=== PATIENT | female | born 1955 | race Caucasian/White ===

== ENCOUNTER 2017-11-25 14:56 | Emergency (ER) | payer MEDICAID, SELFPAY ==
[2017-11-25 14:58] VITALS: BP 169/94; PULSE 95; RESP 20; TEMP 36.6; O2SAT 97; BMI 34.7
--- NOTE | 2017-11-25 16:02 | US_ITS ---
STUDY: ULTRASOUND OF THE FEMALE PELVIS - COMPLETE REASON FOR EXAM: Female, 62 years old. Postmenopausal bleeding. LMP: Unknown. TECHNIQUE: Transabdominal and Transvaginal. TECHNICAL QUALITY: Adequate. COMPARISON: None. FINDINGS: The uterus is anteverted and is in a midline position. The uterus measures 13.4 x 9.7 x 6.8 cm. There is a Nabothian cyst of the cervix. The endometrium measures 14 mm in thickness, and is hyperechoic. There is no demonstrated endometrial mass. There multiple hypoechoic masses consistent with fibroids. Largest measures 4.0 cm. Additional lesion measuring 1.9 to 3.0 cm. I.U.D. - The patient does not have an I.U.D. The right ovary is visualized. The right ovary measures 2.1 x 1.6 x 1.5 cm. There is no right ovarian cyst or ovarian mass. There is no visualized right adnexal mass or complex lesion. There is normal arterial and normal venous vascularity. The left ovary is non-visualized. There is no fluid in the cul-de-sac. The pre void volume of the bladder was 141 ml. US/Transvaginal Non- IMPRESSION: Fibroid uterus. Electronically Signed: Praful Adam MD at 17:59 EDT , Service support ,
--- NOTE | 2017-11-25 16:04 | ED.VISSUMM ---
- ER Visit Summary Date of Service: 11/25/17 Chief Complaint: Vaginal bleeding History of Present Illness: The patient is a 62 F who has not had a regular period in several years. Patient states she has been spotting for the past couple of months. She does not have insurance that she has not gone to the doctor for this. She developed some mild lower abdominal cramping yesterday and had a gush of vaginal blood with clot today. Past surgical history significant only for C-sections. She denies family history of uterine cancer. Physical Examination: Vital signs significant for blood pressure of 169/94, otherwise unremarkable. Patient sitting upright in bed no acute distress. Heart is regular rate and rhythm. Lung sounds are clear. Abdomen is soft with mild superpubic tenderness. There is no guarding or rebound. Active bowel sounds are noted throughout. Test Results: CBC was a hemoglobin 9.8 hematocrit 32.5. Chemistry studies normal. Coags negative. Ultrasound of the pelvis shows a fibroid uterus with at least 3 large fibroids. Endometrium is measuring 14 mm. Emergency Department Course and Treatment: Patient was given IV fluids here. Bleeding is controlled at this time. Vital signs remained stable. Patient wishes to follow-up with Dr. Jean. I spoke with her and patient will be followed up in the office closely. Treatment Plan: [] Disposition: Discharge Impression: 1. Postmenopausal bleeding 2. Fibroid uterus This note was generated with [employer] dictation software. It may contain incorrect words, spelling, and punctuation that were not noted in review of the chart prior to signing ED Disposition - Plan for ED Patient: Chief Complaint: Vag Bleeding Referrals: Alek Hernandez MD [Primary Care Provider] -
[2017-11-25 16:27] VITALS: RESP 16
[2017-11-25] MEDS: 0.9% Normal Saline 1,000 ML 150 ML IV (16:29)
[2017-11-25 16:46] LABS: Absolute Lymphocyte Count 1.26 X10^3/ul (0.83-4.51); Absolute Neutrophil Count 5.9 X10^3/uL (2.0-7.7); Basophil# 0.03 X10^3/uL; Basophil% 0.4 % (0-1); Eosinophil# 0.19 X10^3/uL; Eosinophils% 2.3 % (0-5); Hematocrit 32.5 % (37-47); Hemoglobin 9.8 g/dl (12.0-15.0); Lymphocyte # 1.26 X10^3/ul (4.0); Lymphocyte % 15.3 % (19-41); Mean Corp Hgb Conc 30.2 g/gl (32-36); Mean Corpuscular Hgb 23.8 pg (27.0-32.0); Mean Corpuscular Volume 79.1 fL (81-99); Mean Platelet Vol. 8.6 fl (6.2-12.0); Monocyte# 0.83 X10^3/uL; Monocyte% 10.1 % (0-10); Neutrophil # 5.91 X10^3/uL (2.7-7.7); Neutrophil % 71.7 % (47-70); Platelet Count 377 K/mm3 (150-450); RBC Distribution Width CV 14.9 % (11.6-14.6); Red Blood Count 4.11 M/mm3 (4.2-5.4); White Blood Count 8.2 K/mm3 (4.4-11.0)
[2017-11-25 16:47] LABS: POSITIVE COUNT NO; POSITIVE DIFFERENTIAL NO; POSITIVE MORPHOLOGY NO
[2017-11-25 16:53] LABS: International Normalized Ratio 0.9; Prothrombin Time (Protime)PT. 12.6 SECONDS (11.7-14.9)
[2017-11-25 16:54] LABS: Partial Thromboplast Time 28.8 Seconds (24.1-36.2)
[2017-11-25 16:56] LABS: Anion Gap 6 (5-15); BUN 13 mg/dL (7-18); BUN/Creat Ratio 17.6 RATIO (10-20); Calcium,Total 8.6 mg/dL (8.5-10.1); Chloride 108 mmol/L (98-107); Creatinine, Serum 0.74 mg/dL (0.55-1.02); EST Glomerular Filtration Rate 85 mL/min (>60); Est Glom Filt Rate - Afr Amer 102 mL/min (>60); Estimated Creatinine Clearance 73.79 ml/min; Glucose 93 mg/dL (74-106); Potassium 3.9 mmol/L (3.5-5.1); Sodium Level 141 mmol/L (136-145)
[2017-11-25 17:38] VITALS: BP 150/90; PULSE 68; RESP 16; O2SAT 98
--- NOTE | 2017-11-25 18:35 | ED.DEP ---
ED Disposition - Plan for ED Patient: Disposition: Home or Assisted Living Chief Complaint: Vag Bleeding Instructions: ED Bleed Irregular Vaginal, ED Fibroids Referrals: Susie Murdock MD [STAFF PHYSICIAN] - As soon as possible
[2017-11-25 18:51] VITALS: BP 161/75; PULSE 87; RESP 16; O2SAT 100
== END 2017-11-25 18:55 | disposition home or self-care (01) ==
PROVIDERS: Emergency Provider Emergency Medicine; Family Provider Family Medicine; PCP Family Medicine
DX: N95.0 Postmenopausal bleeding (principal); D25.9 Leiomyoma of uterus, unspecified; Z86.73 Personal history of transient ischemic attack (TIA), and cerebral infarction without residual deficits; Z79.82 Long term (current) use of aspirin; Z87.891 Personal history of nicotine dependence
CPT/HCPCS: 76830; 80048; 85025; 85610; 85730; 93976; 96360; 96361; 99283; J7030

== ENCOUNTER 2017-12-19 09:20 | Day surgery (SDC) | payer MEDICAID, SELFPAY ==
[2017-12-19] VITALS (15 sets, daily range): BP systolic 110–168; BP diastolic 63–92; PULSE 59–69; RESP 12–17; TEMP 36.8–37.1; O2SAT 93–99; BMI 35.8
--- NOTE | 2017-12-19 | IMM_PTH ---
PATIENT: DANNY PINK [place] [facility] [place][id number] AGE/SX: 62/F ROOM: RE12/19/[address]: Dr. Brittny Nielsen MD : 1955 BED: DIS: 12/19/2017 SPEC #: [id number] RECD: 12/24/17 12:55 STATUS: YUE REQ #: [id number] JOSEPH: 12/19/17 00:[address]: Brittny Laura DEPT: IMMUNOHISTOCHEMISTRY RECD BY: Aye Moon ENTERED: 12/24/17 12:58 SP TYPE: IMMUNO OTHR DR: Dr. Donovan Hernandez MD Tissues: Endometrium, NOS Procedures: MSH2 (add) MLH-1 (add) MSH6 (add) Anti-PMS2 (add) CEA (add) CK19 (add) CK20 (add) CK7 (add) CK8 (add) CYCLIN (add) KI-67 (add) P53 (add) AZ (add) Vimentin (add) 34BE12 (add) ER (initial) PHYSICIAN & [address] [address] SPECIMEN INFORMATION: Tissue Source: Endometrial curettings Clinical Info: Postmenopausal bleeding with vaginal hemorrhage Specimen Number: [id number] #3 CPT code: 22456, 58460 x15 METHODOLOGY: Deparaffinized sections of prefer/formalin-fixed tissue or PAP/DQ stained slides are incubated with monoclonal/polyclonal antibodies/oligonucleotide probes. Localization is made via biotin free immunoperoxidase method. Appropriate controls are performed and reacted as expected. Results on target cell population are indicated in the following table: RESULTS: ANTIBODY / CLONE RESULT ER (6F11) positive AZ (1E2) positive CK7 (OV-TL12/30) positive CK20 (KS20.8) negative 34BE12 (34BE12) positive, focal CK8 (23kannX02) positive Cyclin D1/BCL-1 (SP4) positive Vimentin (V9) positive CEA (11-7/TF-3HB-1) negative CK19 (A53-B/A2.26) positive P53 (DO-7) positive, 5%, dim Ki-67 (30-9) positive, moderate MLH1 (M1) positive MSH2 (25D12) positive MSH6 (44) positive PMS2 (EQR7977) positive These tests were developed and their performance characteristics determined by [facility]. They may not have been cleared or approved by the U.S. Food and Drug Administration. The FDA has determined that such clearance or approval is not necessary. INTERPRETATION: Endometrial curettings: Endometrial adenocarcinoma. AM:jacqueline 12/25/17 Comment: There is no microsatellite instability detected. Case has been reviewed in consultation with Dr. Peters who concurs with the above diagnosis. IDC:SJ
--- NOTE | 2017-12-19 07:30 | EMB_PTH ---
PATIENT: DANNY PINK [place] [facility] [place][id number] AGE/SX: 62/F ROOM: RE12/19/[address]: Dr. Brittny Nielsen MD : 1955 BED: DIS: 12/19/2017 SPEC #: [id number] RECD: 12/23/17 09:10 STATUS: YUE GUY #: [id number] JOSEPH: 12/19/17 07:[address]: Brittny Laura DEPT: SURGICAL PATHOLOGY RECD BY: Lorena Greenberg ENTERED: 12/23/17 10:26 SP TYPE: ENDOM BX/C OTHR DR: Dr. Donovan Hernandez MD Tissues: Endometrium, NOS Procedures: Surgery Specimen Level IV HEADER OPERATION: Dilation and curettage PRE-OP DIAGNOSIS: Post menopausal bleeding with vaginal hemorrhage TISSUE SUBMITTED: Endometrial curettings MICROSCOPIC DIAGNOSIS Endometrium, curettings: Endometrial adenocarcinoma, endometrioid type, FIGO grade 2. AM:jacqueline 12/24/17 COMMENT Immunohistochemistry ([id number]) supports the above diagnosis. No microsatellite instability was detected by immunohistochemical stains. Case has been reviewed in consultation with Dr. Peters who concurs with the above diagnosis. IDC:NANCY MICROSCOPIC DESCRIPTION Slides are reviewed. GROSS DESCRIPTION Received in fixative is one container labeled with the patient's name and designated endometrial curettings. The specimen consists of multiple fragments of blood clot mixed with a few fragments of lazaro-white soft tissue that in aggregate measure 7.5 x 3 x 1 cm. The entire specimen is submitted in nine cassettes. / NANCY:jacqueline 12/23/17 TC:0 CPT: 39055
--- NOTE | 2017-12-19 09:45 | ED.VISSUMM ---
- ER Visit Summary Date of Service: 12/19/17 Chief Complaint: Vaginal bleeding History of Present Illness: The patient is a 62 F is had waxing and waning vaginal bleeding over the past 2 months. She has been seen here in the ER for this previously. Patient went to [facility] office this morning for endometrial biopsy. Following endometrial biopsy she started having heavy bleeding. Per their notes, patient blood through one tampon rather quickly. 2 tampons were placed and she was sent to the emergency room. Dr. Malik Nielsen is currently covering these patients as Dr. Murdock is out of town. Physical Examination: Vital signs reveal blood pressure 116/76, otherwise unremarkable. Patient sitting upright in bed. She is in no acute distress. Heart is regular rate and rhythm. Lung sounds are clear. Abdomen is soft with mild lower abdominal tenderness. examination reveals mild bleeding on to pad with tampons in place. Test Results: See reveals a hemoglobin of 8.8 hematocrit of 30. Chemistry studies normal. Coags normal. Emergency Department Course and Treatment: I spoke with Dr. Malik Nielsen as soon as I evaluate the patient. She asks for labs to evaluate patient's hemoglobin. I will speak with her once this returns. Patient may require D&C. She has not eaten since midnight and was advised not take anything by mouth while here in the emergency room. IV fluids are ordered. Dr. Malik Nielsen was updated with the patient's lab results. Vitals remained stable. Patient did get up to bedside commode. Pad that she was wearing was moderately saturated and changed out. Nursing staff does note she was dripping blood into the commode. Dr. Malik Nielsen presented to the emergency room. Patient will be taken for a D&C. Treatment Plan: [] Disposition: To OR for D&C Impression: Menorrhagia with increased bleeding after endometrial biopsy This note was generated with [employer] dictation software. It may contain incorrect words, spelling, and punctuation that were not noted in review of the chart prior to signing ED Disposition - Plan for ED Patient: Chief Complaint: Vag Bleeding Referrals: Alek Hernandez MD [Primary Care Provider] -
[2017-12-19 09:58] LABS: Absolute Lymphocyte Count 0.88 X10^3/ul (0.83-4.51); Absolute Neutrophil Count 3.9 X10^3/uL (2.0-7.7); Basophil# 0.03 X10^3/uL; Basophil% 0.5 % (0-1); Eosinophil# 0.15 X10^3/uL; Eosinophils% 2.7 % (0-5); Hemoglobin 8.8 g/dl (12.0-15.0); Lymphocyte # 0.88 X10^3/ul (4.0); Lymphocyte % 15.7 % (19-41); Mean Corp Hgb Conc 29.3 g/gl (32-36); Mean Corpuscular Hgb 22.8 pg (27.0-32.0); Mean Corpuscular Volume 77.7 fL (81-99); Mean Platelet Vol. 8.9 fl (6.2-12.0); Monocyte# 0.67 X10^3/uL; Monocyte% 11.9 % (0-10); Neutrophil # 3.86 X10^3/uL (2.7-7.7); Neutrophil % 68.8 % (47-70); POSITIVE COUNT NO; POSITIVE DIFFERENTIAL NO; POSITIVE MORPHOLOGY NO; Platelet Count 379 K/mm3 (150-450); RBC Distribution Width CV 14.9 % (11.6-14.6); RBC Distribution Width SD 41.1 fl (35.1-43.9); Red Blood Count 3.86 M/mm3 (4.2-5.4); White Blood Count 5.6 K/mm3 (4.4-11.0)
[2017-12-19 10:07] LABS: Anion Gap 8 (5-15); BUN 15 mg/dL (7-18); BUN/Creat Ratio 21.9 RATIO (10-20); Calcium,Total 8.3 mg/dL (8.5-10.1); Chloride 111 mmol/L (98-107); Creatinine, Serum 0.68 mg/dL (0.55-1.02); EST Glomerular Filtration Rate 92 mL/min (>60); Est Glom Filt Rate - Afr Amer 112 mL/min (>60); Glucose 101 mg/dL (74-106); Prothrombin Time (Protime)PT. 13.1 SECONDS (11.7-14.9); Sodium Level 145 mmol/L (136-145)
[2017-12-19 10:08] LABS: Partial Thromboplast Time 28.6 Seconds (24.1-36.2)
[2017-12-19] MEDS: 0.9% Normal Saline 1,000 ML 150 ML IV ×2 (10:22→12:51)
[2017-12-19] MEDS: Ondansetron 4 MG/2 ML Vial IV (12:51)
[2017-12-19] MEDS: fentaNYL 100 MCG/2 ML Ampul 12.5 MCG IV (12:51)
--- NOTE | 2017-12-19 18:17 | PCM.DC.D&C ---
Discharge Diet: No Restrictions Discharge Activity: Return to Normal Activity, May not drive while taking narcotic pain medications., - - No driving for 24-48 hours May resume sexual activity in: - - 2-4 weeks Call your doctor if you observe: Fever of 101 or Higher, Inability to urinate, Inability to have a bowel movement, Using more than one pad per hour, Shortness of breath, Chest pain, Calf discomfort Additional Dressing/Incision Instructions:: REMOVE TWO TAMPONS FROM VAGINA THIS EVENING ON FRIDAY, November BEFORE BEDTIME Additional Instructions: You make take 1 to 2 tablets of Ibuprofen over the counter as needed for pain. Allergies/Adverse Reactions: Allergies morphine Allergy (Verified 12/19/17 09:28) Anaphylaxis codeine Adverse Reaction (Verified 12/19/17 09:28) Upset Stomach Medications to take at Discharge Aspirin [Aspirin, Baby] 81 mg PO DAILY@0800 #100 tab.chew 05/06/14 Brimonidine Tartrate/Timolol [Combigan Eye Drops] 1 drop RIGHT EYE BID 12/19/17 Ferrous Sulfate 325 mg PO BID #60 tablet. 12/19/17 Hydrocodone/Acetaminophen [Hydrocodon-Acetaminophen 5-325] 1 each PO Q4H 3 Days #5 tablet 12/19/17 The following prescriptions were given: Hydrocodone/Acetaminophen [Hydrocodon-Acetaminophen 5-325] 1 each PO Q4H 3 Days #5 tablet Ferrous Sulfate 325 mg PO BID #60 tablet. Primary Care Physician: Alek Hernandez MD [Primary Care Provider] - Test Results: Test results from this visit will be discussed in further detail at your follow-up appointment, if applicable. Please Follow Up With: Susie Murdock MD When: 7-10 days
--- NOTE | 2017-12-19 18:20 | PCM.HP.STD ---
Problem List (1) Postmenopausal bleeding Status: Acute History of Present Illness Date of Admission: 12/19/17 Chief Complaint: Vaginal hemorrhage The patient is a 62 year old postmenopausal female sent from the [facility] office by DEMIAN Dueñas for postmenopausal vaginal hemorrhage. The patient was previously seen in the ER on December 01, 2017 for postmenopausal bleeding. An ultrasound then was obtained and demonstrated a 13-14 weeks size fibroid uterus with a thickened endometrial stripe measuring 14 mm. Her hemoglobin at that time was 9. The patient was discharged home and advised to follow-up with Dr. Yong Musa/Akanksha Veloz. On follow-up today, the patient underwent endometrial biopsy however began bleeding profusely at that time. She was packed vaginally with 2 tampons and sent to the emergency room. On evaluation she reports bleeding has been ongoing for at least a month with waxing and waning flow. Past Medical History Medical History: Medical History (Last Updated 12/19/17 @ 08:29 by Fabiola Urena) Glaucoma H40.9 Mini stroke I63.9 Allergies morphine Allergy (Verified 12/19/17 09:28) Anaphylaxis codeine Adverse Reaction (Verified 12/19/17 09:28) Upset Stomach Home Medications: Ambulatory Orders Medication Instructions Recorded Aspirin [Aspirin, Baby] 81 mg PO DAILY@0800 #100 tab.chew 05/06/14 Brimonidine Tartrate/Timolol 1 drop RIGHT EYE BID 12/19/17 [Combigan Eye Drops] Ferrous Sulfate 325 mg PO BID #60 tablet. 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 Denies: Anorexia, Fever Cardiovascular: Reports: Light Headedness. Denies: Chest Pain, Syncope Gastrointestinal: Reports: Abdominal Pain. Denies: Nausea, Vomiting Gynecological: Reports: Vaginal bleeding VTE Information - Inpt Only VTE Present on Admission: No VTE Mechan Device Prophylaxis: SCD's VTE Pharm Prophylaxis ordered?: No Patient Problems: Active and Suspected Problems (Last Updated 12/19/17 @ 08:29 by Fabiola Urena) Postmenopausal bleeding (Acute) Subjective: See HPI and ROS Objective: AVSS - Physical Exam General: Alert, Oriented x3, Cooperative, No apparent distress HEENT: Atraumatic, Normocephalic Lungs: Clear to auscultation, Normal air movement, No rhonchi, No wheeze, No rales Cardiovascular: Regular rate, Regular Rhythm, Normal S1, Normal S2 Abdomen: Soft, Non-Distended, - - bilateral right and left lower quadrant tenderness without rebound or guarding. Extremities: No edema, No Calf Tenderness Neurological: Neuro grossly intact Psych/Mental Status: Normal Affect, Appropriate, Alert and oriented to time, place, person, mood and affect Comment: Vaginal tampons removed, cervix normal, no blood pooling after 2 min Vital Signs Temp Pulse Resp BP Pulse Ox 98.8 F 64 16 132/76 H 94 12/19/17 17:53 12/19/17 17:53 12/19/17 17:53 12/19/17 17:53 12/19/17 17:53 Oxygen Delivery Method Room Air Weight: 100.698 kg Body Mass Index (BMI) 35.8 Finger Stick Blood Glucose 81 Intake and Output for Last 24 Hours 12/17/17 12/18/17 12/19/17 23:59 23:59 23:59 Intake Total 2099 / 2099 Balance 2099 / 2099 Laboratory Tests Past 24 Hrs 12/19/17 12/19/17 12/19/17 09:47 09:47 09:47 WBC 5.6 RBC 3.86 L Hgb 8.8 L Hct 30.0 L MCV 77.7 L MCH 22.8 L MCHC 29.3 L RDW 14.9 H RDW Differential 41.1 Plt Count 379 MPV 8.9 Immature Gran % (Auto) 0.400 Neut % (Auto) 68.8 Lymph % (Auto) 15.7 L Miller % (Auto) 11.9 H Eos % (Auto) 2.7 Baso % (Auto) 0.5 Absolute Neuts (auto) 3.9 Absolute Lymphs (auto) 0.88 Total Counted Not Reportable PT 13.1 INR 1.0 APTT 28.6 Sodium 145 Potassium 4.0 Chloride 111 H Carbon Dioxide 26.0 Anion Gap 8 BUN 15 Creatinine 0.68 Estim Creat Clear Calc 80.30 Est GFR (MDRD) Af Amer 112 Est GFR (MDRD) Non-Af 92 BUN/Creatinine Ratio 21.9 H Glucose 101 Calcium 8.3 L Blood Type Antibody Screen Crossmatch 12/19/17 10:38 WBC RBC Hgb Hct MCV MCH MCHC RDW RDW Differential Plt Count MPV Immature Gran % (Auto) Neut % (Auto) Lymph % (Auto) Miller % (Auto) Eos % (Auto) Baso % (Auto) Absolute Neuts (auto) Absolute Lymphs (auto) Total Counted PT INR APTT Sodium Potassium Chloride Carbon Dioxide Anion Gap BUN Creatinine Estim Creat Clear Calc Est GFR (MDRD) Af Amer Est GFR (MDRD) Non-Af BUN/Creatinine Ratio Glucose Calcium Blood Type B POSITIVE Antibody Screen NEGATIVE Crossmatch See Detail Assessment/Plan All Active Problems (Last Updated 12/19/17 @ 08:29 by Fabiola Urena) Postmenopausal bleeding (Acute) CVA (cerebral vascular accident) (Acute) 62yo postmenopausal para 4004 with postmenopausal hemorrhage improved with tampon tamponade and anemia. Patient is hemodynamically stable at this time and H&H not significantly decreased from prior. I reviewed with the patient my exam findings and discussed with her short course outpatient progesterone therapy to prevent bleeding while awaiting her endometrial biopsy results versus dilation and curettage as she is not a candidate for high-dose estrogen therapy due to history of stroke. Risks, benefits, indications of each were reviewed at length. I discussed with her procedural risks including pain, bleeding, infection, uterine scarring, uterine perforation possibly with vascular bowel or bladder injury requiring additional surgery including emergent hysterectomy. Following discussion the patient desired to proceed with dilation and curettage. We will schedule this on a nonemergent basis to occur later today. Patient and her family were given an opportunity to ask questions and questions were answered to their satisfaction. Consents for the procedure were signed. Blood transfusion is acceptable if medically indicated. Transfusion related risks were reviewed.
--- NOTE | 2017-12-19 18:36 | PCM.OPRPT ---
Problem List (1) Postmenopausal bleeding Status: Acute Report of Operation Date of Procedure: 12/19/17 Pre-Operative Diagnosis: Postmenopausal bleeding Post-Operative Diagnosis: Postmenopausal bleeding Surgery/Procedure Performed:: Dilation and curettage Description of Surgical Findings:: Abundant endometrial tissue Type of Anesthesia:: Local MAC Anesthesiologist: Jin Mittal Specimen's removed: endometrial curettings Estimated Blood Loss (mL): 25 Description of Procedure: Indications: 62-year-old woman with postmenopausal bleeding and thickened uterine stripe. Underwent an endometrial biopsy earlier in the day however began to have profuse bleeding. Her bleeding had slowed somewhat following tamponade not however following further discussion of the procedure to proceed with D&C to further alleviate bleeding and short-term. Risks, benefits, indications and alternatives of procedure were reviewed at length. Procedure: The patient was brought to the operating room and sign in was performed. She is placed in a dorsal supine position and induced under MAC. She is then placed into dorsal lithotomy and examination under anesthesia was performed. The perineum and vagina were prepped and draped in sterile fashion. A speculum placed into the vagina and cervix visualized and grasped at the cervical lip using a single-tooth tenaculum. A paracervical block was placed for a total of 20 cc 1% lidocaine. The uterus sounded to 9 cm. The cervix was dilated and subsequently sharp curettage performed with retrieval of abundant endometrial tissue. Bleeding had increased from prior and there was some pooling. Vigorous on bimanual uterine massage was performed for several minutes with improvement of the bleeding and hemostasis attained. The tenaculum was removed from the cervix and the tenaculum site was hemostatic. I did place 2 tampons a vaginally to ensure continued hemostasis in the perioperative period. - Complications None - Admit VTE Documentation VTE Present on Admission: No VTE Mechan Device Prophylaxis: SCD's VTE Pharm Prophylaxis ordered?: No
== END 2017-12-19 18:58 | disposition home or self-care (01) ==
LOC: ED 09:54 → SDC 11:23 → ACINP 11:24
PROVIDERS: Emergency Provider Emergency Medicine; Family Provider Family Medicine; PCP Family Medicine; Visit Provider Obstetrics & Gynecology
PROC: (CPT 58120; principal; 2017-12-19 07:15)
DX: N95.0 Postmenopausal bleeding (principal); D62 Acute posthemorrhagic anemia; I69.311 Memory deficit following cerebral infarction; I10 Essential (primary) hypertension; H40.9 Unspecified glaucoma; Z79.82 Long term (current) use of aspirin; Z87.891 Personal history of nicotine dependence
CPT/HCPCS: 00940; 58120; 80048; 85025; 85610; 85730; 86850; 86900; 86920; 86922; 88305; 88341; 88342; 99283; J7030; J7040; A4216; J2405

== ENCOUNTER → 2018-02-24 15:22 | Outpatient (CLI) | payer MEDICAID, SELFPAY ==
[2018-02-24 16:34] LABS: Absolute Lymphocyte Count 1.34 X10^3/ul (0.83-4.51); Absolute Neutrophil Count 5.4 X10^3/uL (2.0-7.7); Basophil# 0.04 X10^3/uL; Basophil% 0.5 % (0-1); Differential Indicated SCAN CRITERIA MET; Eosinophils% 2.5 % (0-5); Hematocrit 35.4 % (37-47); Hemoglobin 10.2 g/dl (12.0-15.0); Lymphocyte # 1.34 X10^3/ul (4.0); Lymphocyte % 16.8 % (19-41); Mean Corp Hgb Conc 28.8 g/gl (32-36); Mean Corpuscular Hgb 21.3 pg (27.0-32.0); Mean Corpuscular Volume 74.1 fL (81-99); Monocyte# 0.92 X10^3/uL; Monocyte% 11.5 % (0-10); Neutrophil # 5.43 X10^3/uL (2.7-7.7); Neutrophil % 67.8 % (47-70); POSITIVE COUNT NO; POSITIVE DIFFERENTIAL NO; POSITIVE MORPHOLOGY YES; Platelet Count 443 K/mm3 (150-450); RBC Distribution Width CV 18.2 % (11.6-14.6); Red Blood Count 4.78 M/mm3 (4.2-5.4)
[2018-02-24 16:41] LABS: Creatinine, Serum 0.66 mg/dL (0.55-1.02); EST Glomerular Filtration Rate 96 mL/min (>60); Est Glom Filt Rate - Afr Amer 116 mL/min (>60)
[2018-02-24 17:16] LABS: Anisocytosis RARE; Differential Comment SCANNED; Hypochromasia RARE; Polychromasia RARE
== END ==
PROVIDERS: Family Provider Family Medicine; PCP Family Medicine; Referring Provider Radiology Radiation Oncology; Visit Provider Radiology Radiation Oncology
DX: Z01.818 Encounter for other preprocedural examination (principal); C54.1 Malignant neoplasm of endometrium
CPT/HCPCS: 36415; 82565; 85025

== ENCOUNTER → 2018-03-05 13:56 | Outpatient (CLI) | payer MEDICAID, SELFPAY ==
[2018-03-05 14:06] LABS: Mucous, Urine 0 SEEN /hpf (<or=2+); Red Blood Cells-Urine 0 SEEN /hpf (0-5)
--- NOTE | 2018-03-05 14:13 | CT_ITS ---
HISTORY: Radiation treatment planning for endometrial cancer. TECHNIQUE: Helically acquired images were obtained of the abdomen and pelvis following IV contrast. A radiation dose optimization technique was used for this scan. IV Contrast dosage and agent: 100 cc [id number] contrast Oral contrast: Yes. COMPARISON: None FINDINGS: CT abdomen and pelvis obtained following hysterectomy for radiation therapy planning. Limited single phase exam obtained in the late venous phase. Pelvis: The uterus is surgically absent. Small component of free pelvic fluid, nonspecific and most likely postsurgical. No suspicious lymph node enlargement and no peritoneal implants identified. The pelvic sidewalls are intact. No residual or recurrent pelvic tumor is seen. Urinary bladder appears normal. Cholelithiasis. The gallbladder is adequately distended without john-cholecystic inflammatory change. The major abdominal organs were not specifically evaluated on this single phase exam. Allowing for this, fatty liver. The spleen and pancreas show no CT abnormality. Both kidneys are normal in position. Bilateral renal excretion of contrast without evidence of hydronephrosis or suspicious renal lesion. Small parapelvic cyst, lower pole of the left kidney. Adrenal glands are not enlarged. Atherosclerotic abdominal aorta without aneurysm. No ascites or retroperitoneal lymphadenopathy. No suspicious mesenteric lymph nodes. GI tract: No obstruction. CT/Abdomen/Pelvis WITH Contrast IMPRESSION: 1. CT scanning for radiation therapy planning. 2. Hysterectomy. No residual tumor, lymphadenopathy, or peritoneal implants seen. 3. Small component of free pelvic fluid, nonspecific, most likely postsurgical. 4. Cholelithiasis. No biliary dilatation. Individualized dose optimization techniques were used for this CT. at 0550 Reported and signed by: Vel Neil MD Electronically Signed: Vel Neil, at 5:48 EST Tel , Service support ,
[2018-03-05 14:34] LABS: Color, Urine Yellow (Yellow); Glucose, Dipstick Normal (Normal); Ketone-Dipstick Negative (Negative); Leukocyte Esterase-Dipstick 25 /ul (Negative); Nitrite-Dipstick Negative (Negative); Occult Blood-Urine Negative /ul (Negative); Protein-Dipstick Negative (Negative); Urine Bilirubin Dipstick Negative (Negative); Urine Clarity Clear (Clear); Urine Urobilinogen Normal (Normal)
[2018-03-05 14:41] LABS: Bacteria RARE /hpf (None Seen); Squamous Epithelial Cells - UA 0-5 SEEN /hpf (5-10); White Blood Cells 0-5 SEEN /hpf (0-5)
== END ==
PROVIDERS: Family Provider Family Medicine; PCP Family Medicine; Referring Provider Radiology Radiation Oncology; Visit Provider Radiology Radiation Oncology
DX: C54.1 Malignant neoplasm of endometrium (principal); R30.0 Dysuria
CPT/HCPCS: 74177; 81001; 87086; Q9967

== ENCOUNTER → 2018-04-02 10:23 | Outpatient (CLI) | payer MEDICAID, SELFPAY ==
[2017-12-29 10:54] VITALS: BMI 35.5
[2018-04-02 12:16] LABS: Absolute Lymphocyte Count 0.37 X10^3/ul (0.83-4.51); Absolute Neutrophil Count 4.4 X10^3/uL (2.0-7.7); Basophil# 0.02 X10^3/uL; Basophil% 0.4 % (0-1); Eosinophil# 0.25 X10^3/uL; Eosinophils% 4.4 % (0-5); Hematocrit 32.4 % (37-47); Hemoglobin 9.7 g/dl (12.0-15.0); Lymphocyte # 0.37 X10^3/ul (4.0); Lymphocyte % 6.5 % (19-41); Mean Corp Hgb Conc 29.9 g/gl (32-36); Mean Corpuscular Hgb 22.9 pg (27.0-32.0); Mean Corpuscular Volume 76.4 fL (81-99); Mean Platelet Vol. 8.9 fl (6.2-12.0); Monocyte# 0.61 X10^3/uL; Monocyte% 10.7 % (0-10); Neutrophil # 4.42 X10^3/uL (2.7-7.7); Neutrophil % 77.5 % (47-70); Platelet Count 257 K/mm3 (150-450); RBC Distribution Width CV 19.7 % (11.6-14.6); RBC Distribution Width SD 51.9 fl (35.1-43.9); Red Blood Count 4.24 M/mm3 (4.2-5.4); White Blood Count 5.7 K/mm3 (4.4-11.0)
[2018-04-02 12:17] LABS: Differential Indicated SCAN CRITERIA MET; POSITIVE COUNT NO; POSITIVE DIFFERENTIAL YES; POSITIVE MORPHOLOGY NO
--- OUTSIDE RECORDS SUMMARY | 2018-05-19 05:17 | XMS RPT_ITS ---
:1955 Author Organization OHIP Support Name Relationship Address Phone AC KINGE Unavailable Unavailable + [place] [address] SPICER, STEVEN Unavailable Unavailable + [place] [address] MANCAN Unavailable [address] + [place] [address] CHRISTINE RC Unavailable Unavailable + [place] [address] SPICER, STEVEN Unavailable Unavailable + [place] [address] MANCAN Unavailable [address] + [place] [address] CHRISTINE, RC Unavailable Unavailable + [place] [address] SPICER, STEVEN Unavailable Unavailable + [place] [address] MANCAN Unavailable [address] + [place] [address] Christine, Rc Unavailable Unavailable + Christine, Zina Unavailable Unavailable + Gennaro, Steven Unavailable Unavailable Unavailable Christine, Rc Unavailable Unavailable + Christine, Zina Unavailable Unavailable + Gennaro, Steven Unavailable Unavailable Unavailable CHRISTINE, HOLDEN Unavailable [address] [facility] + [place] [address] NAYAN STEVEN Unavailable . + [place] [address] MANCAN Unavailable [address] + [place] [address] CHRISTINE, HOLDEN Unavailable [address] [facility] + [place] [address] NAYAN STEVEN Unavailable Unavailable + [place] [address] MANCAN Unavailable [address] + [place] [address] HOLDEN KING Unavailable [address] [facility] + [place] [address] NAYAN STEVEN Unavailable . + [place] [address] MANCAN Unavailable [address] + [place] [address] CHRISTINE HOLDEN Unavailable [address] [facility] + [place] [address] NYAAN STEVEN Unavailable . + [place] [address] MANCAN Unavailable [address] + [place] [address] Care Team Providers Name Role Phone Antonio Quiñonez Attending Unavailable PROVIDER, UNKNOWN Referring Unavailable [facility] Unavailable Antonio Quiñonez Attending Unavailable PROVIDER, UNKNOWN Referring Unavailable [facility] Unavailable Augusto Zurita Attending Unavailable Augusto Zurita Referring Unavailable [facility] Unavailable [facility] Unavailable Lian Garcia Attending Unavailable Akanksha Veloz Attending Unavailable [facility] Referring Unavailable [facility] Unavailable [facility] Unavailable Brittny Aldana Attending Unavailable Susie Jean Attending Unavailable [facility] Referring Unavailable [facility] Unavailable Augusto Zurita Attending Unavailable Parminder, Augusto Referring [facility] Augusto Zurita Attending Unavailable Augusto Zurita Referring Unavailable [facility] Unavailable Antonio Quiñonez Consulting Unavailable PROBLEMS PROBLEMS DATE TYPE CONDITION / CODE ATTENDING STATUS SOURCE 03/10/2018 Unknown C54.1 - Malignant Seider, Active [place] neoplasm of [facility] endometrium / Hospital C54.1(ICD-10) Repository 02/24/2018 Unknown Z01.818 - Encounter Seider, Active [place] for other [facility] preprocedural Hospital examination / Repository Z01.818(ICD-10) 01/19/2018 Admitting Malignant neoplasm Antonio Quiñoenz Active [facility] Diagnosis of endometrium / System C54.1(ICD-10) Repository 01/19/2018 Admitting Anemia, unspecified Antonio Quiñonez Active [facility] Diagnosis / D64.9(ICD-10) System Repository 01/19/2018 Admitting Prsnl hx of TIA Laskey, Antonio Active [facility] Diagnosis (TIA), and cereb System infrc w/o resid Repository deficits / Z86.73(ICD-10) 01/19/2018 Admitting Obesity, unspecified Khang, Antonio Active [facility] Diagnosis / E66.9(ICD-10) System Repository 01/19/2018 Admitting Body mass index LaskeyAntonio Active [facility] Diagnosis (BMI) 35.0-35.9, System adult / Repository Z68.35(ICD-10) 01/19/2018 Admitting Obstructive sleep Antonio Quiñonez Active [facility] Diagnosis apnea (adult) System (pediatric) / Repository G47.33(ICD-10) 01/19/2018 Admitting Unspecified ovarian Laskey, Antonio Active [facility] Diagnosis cyst, left side / System N83.202(ICD-10) Repository 01/19/2018 Admitting Unspecified ovarian Laskey, Antonio Active [facility] Diagnosis cyst, right side / System N83.201(ICD-10) Repository 01/19/2018 Admitting Acc pnctr & lac of a Antonio Quiñonez Active [email or web address] Diagnosis sys org during a System sys procedure / Repository N99.71(ICD-10) 01/19/2018 Admitting Oth surgical Antonio Quiñonez Active [facility] Diagnosis procedures cause abn System react/compl, w/o Repository misadvnt / Y83.8(ICD-10) 01/19/2018 Admitting Gastro-esophageal Antonio Quiñonez Active [facility] Diagnosis reflux disease System without esophagitis Repository / K21.9(ICD-10) 01/19/2018 Admitting Unspecified glaucoma Antonio Quiñonez Active [facility] Diagnosis / H40.9(ICD-10) System Repository 01/19/2018 Admitting half-way (current) Antonio Quiñonez Active [facility] Diagnosis use of aspirin / System Z79.82(ICD-10) Repository 01/19/2018 Admitting Allergy status to Antonio Quiñonez Active [facility] Diagnosis narcotic agent System status / Repository Z88.5(ICD-10) 01/19/2018 Admitting Personal history of Antonio Quiñonez [employer] Diagnosis nicotine dependence System / Z87.891(ICD-10) Repository 01/12/2018 Admitting Encounter for other Antonio Quiñonez [employer] Diagnosis preprocedural System examination / Repository Z01.818(ICD-10) 12/23/2017 Unknown N95.0 - Katya, Active [facility] N95.0(ICD-10) Repository 12/23/2017 Unknown Z98.890 - Other Katya, Active [facility] specified [facility] postprocedural Hospital states / Repository Z98.890(ICD-10) 02/06/2018 Unknown N92.1 - Excessive [place], Active [facility] and frequent [facility] menstruation with Hospital irregular cycle / Repository N92.1(ICD-10) 02/06/2018 Unknown N93.9 - Abnormal Garcia, Active [place] uterine and vaginal Lian [facility] bleeding, Hospital unspecified / Repository N93.9(ICD-10) PROCEDURES PROCEDURES No Procedure Records FoundRESULTS RESULTS CBC W/DIFF, AUTOMATED Collected: 04/02/2018 Status: F Source: [place] 10:42 AM [facility] HOSPITAL REPOSITORY TYPE CODE TESTS RESULT OUT OF RANGE REFERENCE UNITS LAB L100.1000 4.4-11.0 K/mm3 Normal WBC 5.7 LAB L100.1200 4.2-5.4 M/mm3 Normal RBC 4.24 LAB L100.1300 12.0-15.0 g/dl Low HGB 9.7 LAB L100.1400 37-47 % Low HCT 32.4 LAB L100.1500 81-99 fL Low MCV 76.4 LAB L100.1600 27.0-32.0 pg Low MCH 22.9 LAB L100.1700 32-36 g/gl Low MCHC 29.9 LAB L100.1810 11.6-14.6 % High RDW CV 19.7 LAB L100.1820 35.1-43.9 fl High RDW SD 51.9 LAB L100.1900 150-450 K/mm3 Normal PLT 257 LAB L100.2000 6.2-12.0 fl Normal MPV 8.9 LAB L100.2100 47-70 % High NEUT% 77.5 LAB L100.2200 19-41 % Low LY% 6.5 LAB L100.2300 0-10 % High MONO% 10.7 LAB L100.2400 0-5 % Normal EO% 4.4 LAB L100.2500 0-1 % Normal BASO% 0.4 LAB L100.2550 0.0-0.9 % Normal IM GRAN % 0.500 Result Comment: IG% - Immature Granulocytes (promyelocytes, myelocytes and metamyelocytes) > 1% indicates that a LEFT SHIFT is Present. LAB L100.2620 2.0-7.7 X10 3/uL Normal Absolute Neut 4.4 LAB L100.2720 0.83-4.51 X10 3/ul Low Absolute Lymph 0.37 Performed By: #### L100.0100 #### [facility] [address] [facility] [place], [address] ABDOMEN/PELVIS WITH Observed: 03/05/2018 Status: F Source: [place] CONTRAST 2:14 PM [facility] REPOSITORY [facility] Imaging Services [address] [place] [address] Abdomen/Pelvis WITH Contrast MR#: [id number] Acct: [id number] Name: ANTONIO PINK Rep #: [id number] : 1955 F 62 From: Vel Neil MD PCP: Donovan Hernandez MD Status: REG CLI Study: Abdomen/Pelvis WITH Contrast Date of Exam: 03/05/18 Exam# [id number] Ordering Dr: Augusto Zurita MD HISTORY: Radiation treatment planning for endometrial cancer. TECHNIQUE: Helically acquired images were obtained of the abdomen and pelvis following IV contrast. A radiation dose optimization technique was used for this scan. IV Contrast dosage and agent: 100 cc [id number] contrast Oral contrast: Yes. COMPARISON: None FINDINGS: CT abdomen and pelvis obtained following hysterectomy for radiation therapy planning. Limited single phase exam obtained in the late venous phase. Pelvis: The uterus is surgically absent. Small component of free pelvic fluid, nonspecific and most likely postsurgical. No suspicious lymph node enlargement and no peritoneal implants identified. The pelvic sidewalls are intact. No residual or recurrent pelvic tumor is seen. Urinary bladder appears normal. Cholelithiasis. The gallbladder is adequately distended without john-cholecystic inflammatory change. The major abdominal organs were not specifically evaluated on this single phase exam. Allowing for this, fatty liver. The spleen and pancreas show no CT abnormality. Both kidneys are normal in position. Bilateral renal excretion of contrast without evidence of hydronephrosis or suspicious renal lesion. Small parapelvic cyst, lower pole of the left kidney. Adrenal glands are not enlarged. Atherosclerotic abdominal aorta without aneurysm. No ascites or retroperitoneal lymphadenopathy. No suspicious mesenteric lymph nodes. GI tract: No obstruction. CT/Abdomen/Pelvis WITH Contrast IMPRESSION: 1. CT scanning for radiation therapy planning. 2. Hysterectomy. No residual tumor, lymphadenopathy, or peritoneal implants seen. 3. Small component of free pelvic fluid, nonspecific, most likely postsurgical. 4. Cholelithiasis. No biliary dilatation. Individualized dose optimization techniques were used for this CT. 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 CLEAN CATCH TYPE CODE TESTS RESULT OUT OF RANGE REFERENCE UNITS LAB L400.3000 Yellow COLOR Normal Yellow LAB L400.3050 Clear Normal CLARITY Clear LAB L400.3200 Normal mg/dl Normal GLUCOSE, UR Normal LAB L400.3300 Negative mg/dL Normal BILIRUBIN URINE Negative LAB L400.3400 Negative mg/dl Normal KETONE UR Negative LAB L400.3465 1.002-1.030 Normal SP.GR. DIPSTX 1.010 LAB L400.3550 5.0 - 8.0 pH UR Normal 6.0 LAB L400.3600 Negative mg/dl PROT Normal DIPSTX Negative LAB L400.3700 Normal mg/dl Normal UROBILI Normal LAB L400.3750 Negative Normal NITRITE UR Negative LAB L400.3780 Negative /ul Normal OCCULT BLOOD-UR Negative LAB L400.3800 Negative /ul High LEUK 25 ESTERASE LAB L400.4050 0-5 /hpf WBC Normal 0-5 SEEN LAB L400.4100 0-5 /hpf 0 Normal RBC-UA SEEN LAB L400.4150 5-10 /hpf SQUAM Normal EPI 0-5 SEEN LAB L400.4300 None Seen /hpf Normal BACTERIA RARE LAB L400.4350 <or=2+ /hpf 0 Normal MUCUS, URINE SEEN Performed By: #### L400.0001 #### [facility] [address] [place], [address] Observed: 03/05/2018 Status: F Source: [place] CULTURE, URINE 2:04 PM [facility] REPOSITORY Urine Culture Culture exhibits no growth. Performed By: #### M100.0650 #### [facility] [address] [place], [address] CBC W/DIFF, AUTOMATED Collected: 02/24/2018 Status: F Source: [place] 3:31 PM [facility] REPOSITORY TYPE CODE TESTS RESULT OUT OF RANGE REFERENCE UNITS LAB L100.1000 4.4-11.0 K/mm3 Normal WBC 8.0 LAB L100.1200 4.2-5.4 M/mm3 Normal RBC 4.78 LAB L100.1300 12.0-15.0 g/dl Low HGB 10.2 LAB L100.1400 37-47 % Low HCT 35.4 LAB L100.1500 81-99 fL Low MCV 74.1 LAB L100.1600 27.0-32.0 pg Low MCH 21.3 LAB L100.1700 32-36 g/gl Low MCHC 28.8 LAB L100.1810 11.6-14.6 % High RDW CV 18.2 LAB L100.1820 35.1-43.9 fl High RDW SD 46.0 LAB L100.1900 150-450 K/mm3 Normal PLT 443 LAB L100.2000 6.2-12.0 fl Normal MPV 9.0 LAB L100.2100 47-70 % Normal NEUT% 67.8 LAB L100.2200 19-41 % Low LY% 16.8 LAB L100.2300 0-10 % High MONO% 11.5 LAB L100.2400 0-5 % Normal EO% 2.5 LAB L100.2500 0-1 % Normal BASO% 0.5 LAB L100.2550 0.0-0.9 % Normal IM GRAN % 0.900 Result Comment: IG% - Immature Granulocytes (promyelocytes, myelocytes and metamyelocytes) > 1% indicates that a LEFT SHIFT is Present. LAB L100.2620 2.0-7.7 X10 3/uL Absolute Neut Normal 5.4 LAB L100.2720 0.83-4.51 X10 3/ul Absolute Lymph Normal 1.34 LAB L100.4500 SMEAR COMMENT Normal SCANNED LAB L100.7300 ANISO Normal RARE LAB L100.7500 POLYCHROMASIA Normal RARE LAB L100.7600 HYPOCHROMASIA Normal RARE Performed By: #### L100.0100 #### [facility] [address] [facility] [place], [place], [address] SERUM CREATININE AND Collected: 02/24/2018 Status: F Source: [place] GFR 3:31 PM [facility] REPOSITORY TYPE CODE TESTS RESULT OUT OF RANGE REFERENCE UNITS LAB L501.1100 0.55-1.02 mg/dL Normal 0.66 CREAT,SERUM Result Comment: The validity of the calculated GFR AND GFRAA in patients over 70 years has not been determined. Clinical correlation is essential. LAB L501.1110 >60 mL/min Normal EST GFR 96 Result Comment: Non- GFR Calc LAB L501.1115 >60 mL/min Normal EST GFR - AA 116 Result Comment: GFR Calc Performed By: #### L501.1105 #### [facility] [address] [place], [place], [address] OP NOTE Observed: 01/20/2018 Status: F Source: [place] 9:18 AM SYSTEM REPOSITORY PATIENT: ANTONIO PINK ADMISSION DATE: 01/19/2018 SURGERY DATE: 01/19/2018 DATE OF : 1955 AGE: 62 ADMITTING PHYSICIAN: Antonio Quiñonez MD ATTENDING PHYSICIAN: Antonio Quiñonez MD DICTATING PHYSICIAN: Antonio Quiñonez MD OPERATIVE RECORD Procedure: 1. ROBOTIC HYSTERECTOMY. 2. BILATERAL SALPINGO-OOPHORECTOMY. 3. RIGHT PELVIC SENTINEL LYMPH NODE BIOPSY. 4. LEFT PELVIC LYMPHADENECTOMY. Preoperative Diagnoses: 1. FIGO grade 2 endometrioid endometrial adenocarcinoma. 2. Body mass index greater than 35. 3. History of section x2. Postoperative Diagnoses: 1. FIGO grade 2 endometrioid endometrial adenocarcinoma. 2. Body mass index greater than 35. 3. History of section x2. Anesthesia: General endotracheal anesthesia/TAP block. Assistants: 1. Faith Griffin D.O. 2. Sarah Moreno M.D. Estimated Blood Loss: 50 cc. Urine Output: 300 cc clear urine. Padgett catheter discontinued prior to the end of the procedure. Specimens: 1. Pelvic washings. 2. Right pelvic sentinel lymph node. 3. Uterus, cervix, bilateral tubes, and ovaries, fibroids. 4. Left pelvic lymph nodes. Complications: None apparent. Disposition: Stable to the PACU. Findings: Examination under anesthesia revealed an enlarged uterus. The uterus sounded to approximately 10 cm. Significant laparoscopic findings included a grossly normal upper abdomen including diaphragms, liver capsule, omentum, and stomach. Within the pelvis, the patient's uterus was enlarged and abnormal in appearance. There appeared to be increased vascularity just below the uterine serosa most notable on the left fundus. There was no obvious tumor extruding through the uterine serosa; however, findings were suspicious for deep myometrial invasion versus leiomyoma. There did appear to be several other subserosal leiomyomas. The tubes and ovaries were grossly normal in appearance. There was a right pelvic sentinel lymph node that was identified at the bifurcation of the common and external iliac vessels. This was removed was grossly normal in appearance. There was no obvious sentinel lymph node that was identified on the left-hand side. Therefore, a comprehensive lymphadenectomy was performed. There were no enlarged or irregular lymph nodes on the left pelvic altaf base. Description of Procedure: After informed, written consent was obtained, the patient was identified in the preoperative holding area and taken to the operating room where anesthesia was found to be adequate. She was then prepped and draped in the usual sterile fashion in the dorsal lithotomy position with Adal stirrups. Care was taken to neither hyperextend or hyperflex the patient's hips or knees and her arms were tucked at the sides in a neutral position. A surgical time-out was performed. A Padgett catheter was placed using sterile technique. A bivalve speculum was placed in the patient's vagina. The anterior lip of the cervix was grasped with a single-tooth tenaculum. The cervix was then injected with indocyanine green at 2 and 10 o'clock both 1 cm deep and into the submucosal tissue for total of 6 cc injected. A medium VCare uterine manipulator was then placed without difficulty and all other instruments were removed from the patient's vagina. Attention was then turned to the patient's abdomen. Entry into the abdominal cavity was performed via left upper quadrant approach with a 5 mm blunt Optiview trocar under direct visualization. Intra-abdominal placement was confirmed prior to insufflating the abdomen with CO2 gas to a pressure of 15 mmHg. A survey of the patient's abdomen revealed the above-noted findings. Additional ports were placed above the umbilicus, in the left and right lower quadrants and finally in the right upper quadrant. All ports were placed with blunt trocars under direct visualization. The patient was then placed in steep Trendelenburg position and the bowel was displaced out of the pelvis. The robot was docked and all instruments were inserted under direct visualization. The right round ligament was identified, serially cauterized, and transected and the right retroperitoneal space was opened and all anatomic landmarks were identified. The near infrared technology was then used to identify the sentinel lymph node. There was a clear lymphatic channel arising from the cervix coursing through the parametrium and terminating in a sentinel lymph node along the right external iliac vessels close to the bifurcation of the external and common iliac vessels. The perilymphatic tissue was grasped with the PK device and gently dissected from the surrounding tissues using a combination of blunt dissection and intermittent bursts of monopolar cautery. The lymph node was removed through the right upper quadrant port. The procedure was attempted on the left-hand side. However, there was no obvious lymphatic channel that was identified with a near infrared technology. The right infundibulopelvic ligament was then skeletonized before being serially cauterized and transected. The posterior leaves of the broad ligament was taken down to the level of the cervicovaginal junction. The bladder flap was created anteriorly using sharp dissection and intermittent bursts of monopolar cautery. This was somewhat challenging given the patient's history of section x2. There were adhesions of the bladder to the anterior lower uterine segment and cervix. The right uterine vessels were then skeletonized. These were serially cauterized. Prior to dividing the vessels, a large laparoscopic clip was placed across the proximal portion of the uterine vessels. These were then transected with the monopolar ely. The above procedure was repeated on the left-hand side. The colpotomy incision was made in a circumferential fashion at the level of cervicovaginal junction using a combination of cut and coag current. The uterus was enlarged approximately 16 weeks in size. Given the large size of the uterus, it was placed in an 15 mm EndoCatch bag which was then removed through the patient's vagina. In order to facilitate specimen removal, several of the fibroids were removed. The uterus and cervix were then opened off the operative field. This revealed a large tumor involving all aspects of the endometrium which was deeply invasive again almost all the way through to the uterine serosa. Therefore, the decision was made to proceed with a pelvic lymphadenectomy on the left-hand side. All lymphatic tissue overlying the external iliac vessels was removed to the level of the circumflex iliac vein with care to preserve the genitofemoral nerves. The obturator space was opened and all anatomic landmarks were identified including the obturator nerve prior to removing the lymphatic tissue superficial to the obturator nerve. All lymphatic tissue was then removed through the patient's vagina. The vaginal cuff was reapproximated using a 0 V-Loc in a running fashion. The abdomen and pelvis were irrigated. All surgical sites were inspected and noted to be hemostatic. All instruments were removed under direct visualization, the robot was undocked and the abdomen was desufflated of CO2 gas. The supraumbilical port site fascia was reapproximated with a eejbnc-yc-neohf stitch of 0 Vicryl. All skin incisions were closed with 4-0 Monocryl with a subcuticular stitch, Steri-Strips, and Tegaderm. There was a small laceration along the right vaginal sidewall that was reapproximated with a hyfqgf-cg-kzatk stitch of 3-0 Vicryl. There were no other lacerations within the vagina. The Padgett catheter was discontinued. The patient tolerated the procedure well. Sponge, lap, needle, and instrument counts were correct x2. The patient was awakened and taken to the recovery room in stable condition. She did receive preoperative antibiotics per SCIP guidelines. She received DVT prophylaxis in the form of serial compression devices during the surgery. cc: [place] Quanmolucero Job ID: [id number] Antonio Quiñonez MD DOD:01/20/2018 09:18 A AMY/star DOT:01/20/2018 10:07 A Job Number: [id number] Document Number: [id number] cc: Antonio Quiñonez MD [facility] [address] [facility] [address] Observed: 01/19/2018 Status: F Source: [facility] SURGICAL PATHOLOGY 12:45 PM SYSTEM REPOSITORY [id number] [facility], [facility]. PATHOLOGY AND LABORATORY MEDICINE [address] [place], [place] [id number] FINAL SURGICAL PATHOLOGY REPORT NAME: ANTONIO PINK : 1955 62 Y F BILLING NO.: [id number] [address] PROCEDURE 01/19/2018 DATE: SURGEON: ANTONIO QUIÑONEZ M.D. RECEIVED 01/20/2018 DATE: ATTENDING: ANTONIO QUIÑONEZ M.D. REPORT DATE: 01/23/2018 COPIES TO: DIAGNOSIS: A. RIGHT PELVIC SENTINEL LYMPH NODE, EXCISION - ONE LYMPH NODE NEGATIVE FOR METASTATIC CARCINOMA (0/1). B. LEFT PELVIC LYMPH NODES, DISSECTION - FOUR LYMPH NODES NEGATIVE FOR METASTATIC CARCINOMA (0/4). C. UTERUS, HYSTERECTOMY WITH BILATERAL SALPINGO OOPHERECTOMY - ENDOMETRIOID ADENOCARCINOMA, FIGO GRADE 2. UNREMARKABLE BILATERAL FALLOPIAN TUBES. BENIGN, SMALL CYSTS IN BILATERAL OVARIES. SPECIMEN: Uterus with bilateral tubes and ovaries PROCEDURE: Simple hysterectomy SPECIMEN INTEGRITY: Intact uterus HISTOLOGIC TYPE: Endometrioid adenocarcinoma HISTOLOGIC GRADE: FIGO Grade 2 MYOMETRIAL INVASION: Present THICKNESS OF MYOMETRIUM: 20 mm DEPTH OF INVASION: 19 mm as measured from slide INVOLVEMENT OF CERVIX: Not identified INVOLVEMENT OF OTHER ORGANS: LEFT OVARY: Not involved LEFT FALLOPIAN TUBE: Not involved RIGHT OVARY: Not involved RIGHT FALLOPIAN TUBE: Not involved OTHER: LYMPHATIC/VASCULAR INVASION: Present STAGING: PRIMARY TUMOR: pT1b [1B]: Tumor invades greater than or equal to one half of the myometrium. REGIONAL LYMPH NODES: pN0: No regional lymph node metastasis. Pelvic lymph nodes: Performed. Number of nodes examined: 5. Number of nodes involved: 0 Para-aortic lymph nodes: No nodes submitted or found. Other nodes: No nodes submitted or found DISTANT METASTASIS: Not applicable AJCC 2017 STAGING: pT1b, pN0, MMR TESTING: Forthcoming JEWELRY SALES REPRESENTATIVE TUMOR BLOCK: C4 ADDITIONAL PATHOLOGIC FINDINGS: Leiomyomata RPV/INDRA Intradepartmental Consultation: DONIS CARMICHAEL M.D.; Selected slides were reviewed. <Sign Out Dr. Porras> FILIBERTO NANCE MD CLINICAL INFORMATION: Endometrial cancer, FIGO Grade 2 SPECIMEN: (A) SENTINEL LYMPH NODE, ALL SITES (B) LYMPH NODE(S) SPECIMEN (C) UTERUS (RFN), WITH/WITHOUT TUBES AND OVARIES GROSS DESCRIPTION: A. Right pelvic sentinel lymph node Received in formalin is a single portion of altaf tissue and attached adipose tissue that aggregate to 1.2 x 0.7 x 0.3 cm. The specimen is bisected and entirely submitted in one cassette. (2 ns, 1) B. Left pelvic nodes Received in formalin are three portions of yellow adipose tissue that aggregate to 5 x 4.5 x 0.7 cm. Sectioning of the specimen reveals four possible lymph nodes ranging in size from 0.7 to 2.2 cm in greatest dimension. All lymph nodes are entirely submitted. Cassette Summary: B1 through B3 - one possible lymph node bisected each; B4 and B5 - one lymph node bisected. (bits ss, 5) C. Uterus, cervix, bilateral fallopian tubes and ovaries, and fibroids Received in formalin is a uterus with an attached cervix and attached bilateral adnexa. The uterus has been previously bivalved and measures 11.5 x 7.5 x 6 cm and weighs 314 grams. The serosal surface is lazaro-pink, smooth, and glistening. The ectocervix is smooth and glistening and measures 1.5 cm in diameter. The endocervix measures 3.5 cm in length. The endometrial cavity measures 3 x 5 cm. A papillary, friable lesion is identified, involving both the anterior and posterior endometrium. This lesion measures up to 2.5 x 5 x 2.5 cm. It grossly appears to extend into the outer 50% of the myometrial wall. The myometrium measures up to 2.2 cm in thickness. Multiple well-circumscribed, white whorled nodules are identified within the myometrium ranging in size from 0.7 to 1.2 cm in greatest dimension. Received separate from the specimen are four white whorled nodules that range in size from 1.5 to 3 cm and weight and aggregate 27 grams. Sectioning does not reveal any areas of discoloration, hemorrhage, or necrosis. The right fallopian tube has been previously ligated and measures 2.5 cm in length and 0.3 cm in diameter. The serosal surface is smooth and glistening. Sectioning of the right fallopian tube reveals a pinpoint, unremarkable lumen. The right ovary measures 2.5 x 1.4 x 1.1 cm and weighs 5 grams. The outer surface is white and cerebriform. Sectioning does not reveal any grossly identifiable lesions. The left fallopian tube has been previously ligated. It measures 5 cm in length and 0.6 cm in diameter. A fimbriated end is identified. Sectioning reveals an unremarkable pinpoint lumen. The left ovary measures 4 x 1.5 x 0.8 cm and weighs 8 grams. The outer surface is cerebriform. Sectioning does not reveal any grossly identifiable lesions. Venture [employer]ist sections are submitted. Cassette Summary: C1 - anterior cervix; C2 - posterior cervix; C3 - anterior lower uterine segment; C4 and C5 - full-thickness sections of anterior endomyometrium; C6 - posterior lower uterine segment; C7 and C8 - sections of posterior endomyometrium; C9 and C10 - construction representative sections of three largest white whorled nodules; C11 - right fallopian tube; C12 - right ovary; C13 - left fallopian tube; C14 - left ovary. (bits ss, 14) RPV/0RW Disclaimer: The following statement applies to all immunohistochemistry, in situ hybridization, molecular studies, and immunofluorescence testing. The use of one or more reagents in the above tests is regulated as an analyte specific reagent (ASR). These tests were developed and their performance characteristics determined by the clinical laboratories of [facility]. They have not been cleared by the US Food and Drug Administration (FDA). The FDA has determined that such clearance or approval is not necessary. All the above immunostains were performed on paraffin embedded tissue. Appropriate positive and negative controls (where applicable) were run in parallel with the patient's specimen; these controls showed expected staining pattern, with acceptable intensity of staining. Immunohistochemical assays have not been validated on decalcified tissues. Results should be interpreted with caution given the raised possibility of false negativity on decalcified specimens. Professional Performing Location: [address] [address]. DEPARTMENT OF PATHOLOGY AND LABORATORY MEDICINE [place], [place] [address] Observed: 01/19/2018 Status: F Source: [facility] [employer] MEDICAL CYTOLOGY 12:45 PM SYSTEM REPOSITORY [facility] [id number] DEPARTMENT OF PATHOLOGY AND [facility] LABORATORY MEDICINE [address] [facility] [place] [address] FINAL MEDICAL CYTOLOGY REPORT NAME: ANTONIO PINK : 1955 62 Y F BILLING NO.: [id number] LOCATION: PAC1O PACU OUTPT 1PAC PROCEDURE 01/19/2018 08 DATE: PHYSICIAN: ANTONIO QUIÑONEZ M.D. RECEIVED DATE: 01/20/2018 ATTENDING: ANTONIO QUIÑONEZ M.D. REPORT DATE: 02/02/2018 COPIES TO: CLINICAL DATA: DIAGNOSIS RARE MARKEDLY ATYPICAL CELLS PRESENT, SUGGESTIVE OF MALIGNANCY. COMMENT: Rare clusters of markedly atypical cells are present on the thin layer slide only. These cells do not appear to be present in the prepared cell block, and therefore cannot be worked up further. Please see patient's concurrent hysterectomy specimen ([id number]) for additional information. SPECIMEN: PELVIC WASH PROCEDURE(S): WASHINGS GROSS DESCRIPTION: 100 ml, pink fluid, w/cytolyt Materials Prepared & Examined: Cell Blocks . . . . . . . . . . . . 1 Monolayers . . . . . . . . . . . . 1 JJ1 <Sign Out Dr. Porras> Screened by SHARMILA HORVATH M.D. The following statement applies to all immunohistochemistry, in situ hybridization, molecular studies, and immunofluorescence testing. The use of one or more reagents in the above tests is regulated as an analyte specific reagent (ASR). These tests were developed and their performance characteristics determined by the clinical laboratories of [facility]. They have not been cleared by the US Food and Drug Administration (FDA). The FDA has determined that such clearance or approval is not necessary. All the above immunostains were performed on paraffin embedded tissue. Appropriate positive and negative controls (where applicable) were run in parallel with the patient's specimen; these controls showed expected staining pattern, with acceptable intensity of staining. Immunohistochemical assays have not been validated on decalcified tissues. Results should be interpreted with caution given the raised possibility of false negativity on decalcified specimens. Case reviewed at [address] [address]. DEPARTMENT OF PATHOLOGY AND LABORATORY MEDICINE [place], [place] [address] HEMOGRAM Collected: 01/12/2018 Status: F Source: [facility] [employer] 4:19 PM SYSTEM REPOSITORY TYPE CODE TESTS RESULT OUT OF RANGE REFERENCE UNITS LAB IWBC 3.6-10.7 10*3/uL WBC Normal 8.4 LAB RBC 3.80-5.20 10*6/uL RBC Normal 4.23 LAB HGB 11.7-16.0 g/dL Low Hemoglobin 9.3 LAB HCT 35.0-47.0 % Low Hematocrit 30.3 LAB MCV 79.0-98.0 fL Low MCV 71.5 LAB MCH 26.0-34.0 pg Low MCH 22.1 LAB MCHC 32.0-36.0 % Low MCHC 30.8 LAB RDW 11.5-14.5 % High RDW 16.3 LAB PLT 140-440 10*3/uL Platelet Normal 437 LAB MPV 7.4-10.4 fL Low MPV 7.2 Performed By: #### HEMOG #### [address] [address] Observed: 01/12/2018 Status: F Source: [facility] [employer] TS GEL 4:19 PM SYSTEM REPOSITORY ABO Group: B Rh, Gel: POS Antibody Screen Gel: NEG Performed By: #### TSGL #### [address] [address] [facility] OFFICE VISIT Observed: 12/29/2017 Status: F Source: [place] REPORT 11:22 AM [facility] REPOSITORY [facility] [address] [place] [address] OFFICE VISIT Date of Service: 12/29/17 MR#: [id number] Acct: [id number] Name: ANTONIO PINK Rep #: [id number] : 1955 Provider: Susie Jean MD Age/Sex: 62/F Location: [facility] Status: Signed Intake Vital Signs12/29/17 Height 5 ft 6 in 12/29/17 Weight: 220 lb 12/29/17 Body Mass Index (BMI) 35.5 09/10/18 Blood Pressure 130/80 Intake Visit Reasons: D AND C FOLLOW UP Chief Complaint: D AND C Follow Up Christian Counselor Required: No Is patient in pain?: Yes Allergies morphine Allergy (Verified 12/29/17 10:55) Anaphylaxis codeine Adverse Reaction (Verified 12/29/17 10:55) Upset Stomach Medications Aspirin [Aspirin, Baby] 81 mg PO DAILY@0800 #100 tab.chew 05/06/14 [Rx Confirmed 12/29/17] Brimonidine Tartrate/Timolol [Combigan Eye Drops] 1 drp RIGHT EYE BID 12/19/17 [History Confirmed 12/29/17] Ferrous Sulfate 325 mg PO BID #60 tablet.dr 12/19/17 [Rx Confirmed 12/29/17] Hydrocodone/Acetaminophen [Hydrocodon-Acetaminophen 5-325] 1 ea PO Q4H 3 Days #5 tab 12/19/17 [Rx Confirmed 12/29/17] Is last menstrual period known: No Post menopausal: No Patient : No : No PFSH Medical History Glaucoma (Acute) Mini stroke (Acute) Surgical History delivery delivered (Acute) Social History number of children: 4 current occupational status: employed 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 s he has had PMB for several months, heavy at times. she has had decreased bleeding since her surgery. she admits some lower pelvic pain also. she is single. 4 kids in the past. pathology shows endometrial cancer Pregancy History 5 Elective abortions Hx Para 4 Spontaneous abortions 1 Past Pregnancies Del. DateName GA/Weeks Outcome Route Bth WeighInfant GeLabor LgtAnesthesiDel LocatProvider FOB t n h a n ROS Const Constitutional: Reports system reviewed and no additional complaints, except as docu : Reports pelvic pain and as per HPI Exam Const General: cooperative, healthy appearing, comfortable, no acute distress, well developed Nutritional Appearance: average body habitus Orientation: alert HENMT Head: normal to inspection, normocephalic Ears: hearing grossly normal bilaterally, external ears normal Nose: external nose normal, nares normal Face and sinus: normal facial exam Neck Neck: normal visual inspection, trachea midline, no lymphadenopathy Thyroid: thyroid normal Resp Effort AND Inspection: normal respiratory effort Musc Other: gross motor intact no deficits, full bilateral strength Skin General: no rashes or lesions noted Neuro Motor: muscle tone normal throughout Assessment AND Plan Problems 1. Endometrial cancer C54.1 lisette/khang referral Plan discussed diagnosis with patient, education and support given. refer to oncologist. Coding Level of Care Code Off vis,est,level 4 Diagnoses Endometrial cancer C54.1 12/29/17 1122 <Electronically signed by Susie Jean MD> Date Susie Jean MD Cosign Signature: Date (if applicable) CC: OPERATIVE REPORT Observed: 12/19/2017 Status: F Source: [place] 6:41 PM [facility] REPOSITORY [facility] Medical Records Department [address] [place] [address] Operative Report 12/19/17 1836 MR#: [id number] Acct: [id number] Name: ANTONIO PINK Rep #: [id number] : 1955 62 From: Brittny Nielsen MD PCP: Donovan Hernandez MD Status: REG [facility] Location: [place] [address] Problem List (1) Postmenopausal bleeding Status: Acute Report of Operation Date of Procedure: 12/19/17 Pre-Operative Diagnosis: Postmenopausal bleeding Post-Operative Diagnosis: Postmenopausal bleeding Surgery/Procedure Performed:: Dilation and curettage Description of Surgical Findings:: Abundant endometrial tissue Type of Anesthesia:: Local MAC Anesthesiologist: Jin Mittal Specimen's removed: endometrial curettings Estimated Blood Loss (mL): 25 Description of Procedure: Indications: 62-year-old woman with postmenopausal bleeding and thickened uterine stripe. Underwent an endometrial biopsy earlier in the day however began to have profuse bleeding. Her bleeding had slowed somewhat following tamponade not however following further discussion of the procedure to proceed with D AND C to further alleviate bleeding and short-term. Risks, benefits, indications and alternatives of procedure were reviewed at length. Procedure: The patient was brought to the operating room and sign in was performed. She is placed in a dorsal supine position and induced under MAC. She is then placed into dorsal lithotomy and examination under anesthesia was performed. The perineum and vagina were prepped and draped in sterile fashion. A speculum placed into the vagina and cervix visualized and grasped at the cervical lip using a single-tooth tenaculum. A paracervical block was placed for a total of 20 cc 1% lidocaine. The uterus sounded to 9 cm. The cervix was dilated and subsequently sharp curettage performed with retrieval of abundant endometrial tissue. Bleeding had increased from prior and there was some pooling. Vigorous on bimanual uterine massage was performed for several minutes with improvement of the bleeding and hemostasis attained. The tenaculum was removed from the cervix and the tenaculum site was hemostatic. I did place 2 tampons a vaginally to ensure continued hemostasis in the perioperative period. - Complications None - Admit VTE Documentation VTE Present on Admission: No VTE Mechan Device Prophylaxis: SCD's VTE Pharm Prophylaxis ordered?: No 12/19/17 1841 <Electronically signed by Brittny Aldana MD> Date Brittny Aldana MD CC: Donovan Hernandez MD; Brittny Aldana MD Signed HISTORY AND PHYSICAL Observed: 12/19/2017 Status: F Source: [place] EXAM 6:36 PM [facility] REPOSITORY [facility] Medical Records Department [address] [place] [address] History and Physical 12/19/17 1820 MR#: [id number] Acct: [id number] Name: ANTONIO PINK Rep #: [id number] : 1955 62 From: Brittny Nielsen MD PCP: Donovan Hernandez MD Status: REG [facility] Location: [place] [address] Problem List (1) Postmenopausal bleeding Status: Acute History of Present Illness Date of Admission: 12/19/17 Chief Complaint: Vaginal hemorrhage The patient is a 62 year old postmenopausal female sent from the [facility] office by DEMIAN Dueñas for postmenopausal vaginal hemorrhage. The patient was previously seen in the ER on December 01, 2017 for postmenopausal bleeding. An ultrasound then was obtained and demonstrated a 13-14 weeks size fibroid uterus with a thickened endometrial stripe measuring 14 mm. Her hemoglobin at that time was 9. The patient was discharged home and advised to follow-up with Dr. Yong uMsa/Akanksha Veloz. On follow- up today, the patient underwent endometrial biopsy however began bleeding profusely at that time. She was packed vaginally with 2 tampons and sent to the emergency room. On evaluation she reports bleeding has been ongoing for at least a month with waxing and waning flow. Past Medical History Medical History: Medical History (Last Updated 12/19/17 @ 08:29 by Fabiola Urena) Glaucoma H40.9 Mini stroke I63.9 Allergies morphine Allergy (Verified 12/19/17 09:28) Anaphylaxis codeine Adverse Reaction (Verified 12/19/17 09:28) Upset Stomach Home Medications: Ambulatory Orders Medication Instructions Recorded Aspirin [Aspirin, Baby] 81 mg PO DAILY@0800 #100 tab.chew 05/06/14 Brimonidine Tartrate/Timolol 1 drop RIGHT EYE BID 12/19/17 Surgical History: Surgical History (Last Updated 12/19/17 @ 08:28 by Fabiola Urena) delivery delivered O82 Surgical History: - - x 2 Psychiatric History: No pertinent psych hx [employer] History: - - X 2 Smoking Status: Former smoker Alcohol: Occasional Drugs: None - *Family History Maternal History Items: No pertinent history, - - Denies cancer, however, her mother was adopted Review of Systems Constitutional: Reports: Fatigue. Denies: Anorexia, Fever Cardiovascular: Reports: Light Headedness. Denies: Chest Pain, Syncope Gastrointestinal: Reports: Abdominal Pain. Denies: Nausea, Vomiting Gynecological: Reports: Vaginal bleeding VTE Information - Inpt Only VTE Present on Admission: No VTE Mechan Device Prophylaxis: SCD's VTE Pharm Prophylaxis ordered?: No Patient Problems: Active and Suspected Problems (Last Updated 12/19/17 @ 08:29 by Fabiola Urena) Postmenopausal bleeding (Acute) Subjective: See HPI and ROS Objective: AVSS - Physical Exam General: Alert, Oriented x3, Cooperative, No apparent distress HEENT: Atraumatic, Normocephalic Lungs: Clear to auscultation, Normal air movement, No rhonchi, No wheeze, No rales Cardiovascular: Regular rate, Regular Rhythm, Normal S1, Normal S2 Abdomen: Soft, Non-Distended, - - bilateral right and left lower quadrant tenderness without rebound or guarding. Extremities: No edema, No Calf Tenderness Neurological: Neuro grossly intact Psych/Mental Status: Normal Affect, Appropriate, Alert and oriented to time, place, person, mood and affect Comment: Vaginal tampons removed, cervix normal, no blood pooling after 2 min Vital Signs Temp Pulse Resp BP Pulse Ox 98.8 F 64 16 132/76 H 94 12/19/17 17:53 12/19/17 17:53 12/19/17 17:53 12/19/17 17:53 12/19/17 17:53 Oxygen Delivery Method Room Air Weight: 100.698 kg Body Mass Index (BMI) 35.8 Finger Stick Blood Glucose 81 Intake and Output for Last 24 Hours Intake Total 2099 / 2099 Balance 2099 / 2099 Laboratory Tests Past 24 Hrs WBC 5.6 RBC 3.86 L Assessment/Plan All Active Problems (Last Updated 12/19/17 @ 08:29 by Fabiola Urena) Postmenopausal bleeding (Acute) CVA (cerebral vascular accident) (Acute) 62yo postmenopausal para 4004 with postmenopausal hemorrhage improved with tampon tamponade and anemia. Patient is hemodynamically stable at this time and H AND H not significantly decreased from prior. I reviewed with the patient my exam findings and discussed with her short course outpatient progesterone therapy to prevent bleeding while awaiting her endometrial biopsy results versus dilation and curettage as she is not a candidate for high-dose estrogen therapy due to history of stroke. Risks, benefits, indications of each were reviewed at length. I discussed with her procedural risks including pain, bleeding, infection, uterine scarring, uterine perforation possibly with vascular bowel or bladder injury requiring additional surgery including emergent hysterectomy. Following discussion the patient desired to proceed with dilation and curettage. We will schedule this on a nonemergent basis to occur later today. Patient and her family were given an opportunity to ask questions and questions were answered to their satisfaction. Consents for the procedure were signed. Blood transfusion is acceptable if medically indicated. Transfusion related risks were reviewed. 12/19/171835 <Electronically signed by Brittny Aldana MD> Date Brittny Aldana MD Cosigner Signature: Date (if applicable) CC: Donovan Hernandez MD; Brittny Aldana MD Signed DISCHARGE INSTRUCTION Observed: 12/19/2017 Status: F Source: [place] 6:20 PM [facility] Medical Records Department [address] [place] [address] Instructions for Home/Discharge Instructions 12/19/171816 MR#: [id number] Acct: [id number] Name: ANTONIO PINK Rep #: [id number] : 1955 62 From: Brittny Nielsen MD PCP: Donovan Hernandez MD Status: REG SDC Discharge Diet: No Restrictions Discharge Activity: Return to Normal Activity, May not drive while taking narcotic pain medications., - - No driving for 24-48 hours May resume sexual activity in: - - 2-4 weeks Call your doctor if you observe: Fever of 101 or Higher, Inability to urinate, Inability to have a bowel movement, Using more than one pad per hour, Shortness of breath, Chest pain, Calf discomfort Additional Dressing/Incision Instructions:: REMOVE TWO TAMPONS FROM VAGINA THIS EVENING ON FRIDAY, November BEFORE BEDTIME Additional Instructions: You make take 1 to 2 tablets of Ibuprofen over the counter as needed for pain. Allergies/Adverse Reactions: Allergies morphine Allergy (Verified 12/19/17 09:28) Anaphylaxis codeine Adverse Reaction (Verified 12/19/17 09:28) Upset Stomach Medications to take at Discharge Aspirin [Aspirin, Baby] 81 mg PO DAILY@0800 #100 tab.chew 05/06/14 Brimonidine Tartrate/Timolol [Combigan Eye Drops] 1 drop RIGHT EYE BID 12/19/17 Ferrous Sulfate 325 mg PO BID #60 tablet. 12/19/17 Hydrocodone/Acetaminophen [Hydrocodon-Acetaminophen 5-325] 1 each PO Q4H 3 Days #5 tablet 12/19/17 The following prescriptions were given: Hydrocodone/Acetaminophen [Hydrocodon-Acetaminophen 5-325] 1 each PO Q4H 3 Days #5 tablet Ferrous Sulfate 325 mg PO BID #60 tablet. Primary Care Physician: Alek Hernandez MD [Primary Care Provider] - Test Results: Test results from this visit will be discussed in further detail at your follow-up appointment, if applicable. Please Follow Up With: Susie Jean MD When: 7-10 days 12/19/17 1820 <Electronically signed by Brittny Aldana MD> Date Brittny Aldana MD CC: Donovan Hernandez MD EMERGENCY DEPARTMENT Observed: 12/19/2017 Status: F Source: [place] SUMMARY 4:08 PM [facility] REPOSITORY [facility] Medical Records Department [address] [place] [address] Emergency Department Summary 12/19/17 0945 MR#: [id number] Acct: [id number] Name: ANTONIO PINK Rep #: [id number] : 1955 62 From: Lian Garcia MD PCP: Donovan Hernandez MD Status: REG [facility] - ER Visit Summary Date of Service: 12/19/17 Chief Complaint: Vaginal bleeding History of Present Illness: The patient is a 62 F is had waxing and waning vaginal bleeding over the past 2 months. She has been seen here in the ER for this previously. Patient went to [facility] office this morning for endometrial biopsy. Following endometrial biopsy she started having heavy bleeding. Per their notes, patient blood through one tampon rather quickly. 2 tampons were placed and she was sent to the emergency room. Dr. Malik Nielsen is currently covering these patients as Dr. Jean is out of town. Physical Examination: Vital signs reveal blood pressure 116/76, otherwise unremarkable. Patient sitting upright in bed. She is in no acute distress. Heart is regular rate and rhythm. Lung sounds are clear. Abdomen is soft with mild lower abdominal tenderness. examination reveals mild bleeding on to pad with tampons in place. Test Results: See reveals a hemoglobin of 8.8 hematocrit of 30. Chemistry studies normal. Coags normal. Emergency Department Course and Treatment: I spoke with Dr. Malik Nielsen as soon as I evaluate the patient. She asks for labs to evaluate patient's hemoglobin. I will speak with her once this returns. Patient may require D AND C. She has not eaten since midnight and was advised not take anything by mouth while here in the emergency room. IV fluids are ordered. Dr. Malik Nielsen was updated with the patient's lab results. Vitals remained stable. Patient did get up to bedside commode. Pad that she was wearing was moderately saturated and changed out. Nursing staff does note she was dripping blood into the commode. Dr. Malik Nielsen presented to the emergency room. Patient will be taken for a D AND C. Treatment Plan: [] Disposition: To OR for D AND C Impression: Menorrhagia with increased bleeding after endometrial biopsy This note was generated with [employer] dictation software. It may contain incorrect words, spelling, and punctuation that were not noted in review of the chart prior to signing ED Disposition - Plan for ED Patient: Chief Complaint: Vag Bleeding Referrals: Alek Hernandez MD [Primary Care Provider] - What to do if you have Problems For any increased pain, shortness of breath, bleeding, nausea or vomiting, chest pain, or any unexpected problems, contact your Primary Care Provider. Call [facility] ([phone]) or report to the closest Emergency Room. Call 911 if necessary. 12/19/17 2932 <Electronically signed by Lian Garcia MD> Date Lian Garcia MD Cosigner Signature (If Indicated): Date CC: Donovan Hernandez MD TYPE AND SCREEN Collected: 12/19/2017 Status: F Source: [place] 10:38 AM [facility] REPOSITORY Order Comment: CMV NEG? N Reason for Ordering Blood: Acute Are the blood/blood products to be transfused? N Is the patient having/had surgery? Y Irradiated? N Leukodepleted? Y TYPE CODE TESTS RESULT OUT OF RANGE REFERENCE UNITS LAB B10.0800 B Normal BLOOD TYPE GEL POSITIVE LAB B100.4000 Normal Antibody NEGATIVE Screen Performed By: #### B101.7450 #### [facility] [address] [place], [address] CBC W/DIFF, AUTOMATED Collected: 12/19/2017 Status: F Source: [place] 9:47 AM [facility] REPOSITORY TYPE CODE TESTS RESULT OUT OF RANGE REFERENCE UNITS LAB L100.1000 4.4-11.0 K/mm3 Normal WBC 5.6 LAB L100.1200 4.2-5.4 M/mm3 Low RBC 3.86 LAB L100.1300 12.0-15.0 g/dl Low HGB 8.8 LAB L100.1400 37-47 % Low HCT 30.0 LAB L100.1500 81-99 fL Low MCV 77.7 LAB L100.1600 27.0-32.0 pg Low MCH 22.8 LAB L100.1700 32-36 g/gl Low MCHC 29.3 LAB L100.1810 11.6-14.6 % High RDW CV 14.9 LAB L100.1820 35.1-43.9 fl Normal RDW SD 41.1 LAB L100.1900 150-450 K/mm3 Normal PLT 379 LAB L100.2000 6.2-12.0 fl Normal MPV 8.9 LAB L100.2100 47-70 % Normal NEUT% 68.8 LAB L100.2200 19-41 % Low LY% 15.7 LAB L100.2300 0-10 % High MONO% 11.9 LAB L100.2400 0-5 % Normal EO% 2.7 LAB L100.2500 0-1 % Normal BASO% 0.5 LAB L100.2550 0.0-0.9 % Normal IM GRAN % 0.400 Result Comment: IG% - Immature Granulocytes (promyelocytes, myelocytes and metamyelocytes) > 1% indicates that a LEFT SHIFT is Present. LAB L100.2620 2.0-7.7 X10 3/uL Normal Absolute Neut 3.9 LAB L100.2720 0.83-4.51 X10 3/ul Normal Absolute Lymph 0.88 Performed By: #### L100.0100 #### [facility] [address] [place], [address] BASIC METABOLIC Collected: 12/19/2017 Status: F Source: [place] PROFILE (BMP) 9:47 AM [facility] REPOSITORY TYPE CODE TESTS RESULT OUT OF RANGE REFERENCE UNITS LAB L501.0100 74-106 mg/dL Normal GLU 101 Result Comment: Fasting Glucose result from 100 to 125 mg/dL suggests IMPAIRED HOMEOSTASIS per A.D.A. criteria. Please note revised GLUCOSE reference range effective 2017. LAB L501.1000 7-18 mg/dL Normal BUN 15 LAB L501.1100 0.55-1.02 mg/dL Normal CREAT,SERUM 0.68 Result Comment: The validity of the calculated GFR AND GFRAA in patients over 70 years has not been determined. Clinical correlation is essential. LAB L501.1110 >60 mL/min Normal EST GFR 92 Result Comment: Non- GFR Calc LAB L501.1115 >60 mL/min Normal EST GFR - AA 112 Result Comment: GFR Calc LAB L501.1255 ml/min Normal Estimated CRCL 80.30 LAB L501.1300 10-20 RATIO High BUN/CRE 21.9 LAB L501.2200 8.5-10 mg/dL Low .1 CA 8.3 LAB L501.5300 136-14 mmol/L Normal 5 NA 145 LAB L501.5600 3.5-5. mmol/L Normal 1 K 4.0 LAB L501.5900 98-107 mmol/L High CL 111 LAB L501.6100 21.0-3 mmol/L Normal 2.0 CO2 26.0 LAB L501.6200 5-15 Normal GAP 8 Performed By: #### L500.2500 #### [facility] [address] [place], [address] PROTHROMBIN TIME W/INR Collected: 12/19/2017 Status: F Source: [place] 9:47 AM [facility] REPOSITORY TYPE CODE TESTS RESULT OUT OF RANGE REFERENCE UNITS LAB L300.4150 11.7-14.9 SECONDS Normal PROTIME 13.1 LAB L300.4200 Normal INR 1.0 Performed By: #### L300.3900, L300.4310 #### [facility] [address] [place], [address] PARTIAL THROMBOPLAST Collected: 12/19/2017 Status: F Source: [place] TIME 9:47 AM [facility] REPOSITORY TYPE CODE TESTS RESULT OUT OF RANGE REFERENCE UNITS LAB L300.4310 24.1-36.2 Seconds Normal PTT 28.6 Performed By: #### L300.3900, L300.4310 #### [facility] [address] 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 [place] [address] OFFICE VISIT Date of Service: 12/19/17 MR#: [id number] Acct: [id number] Name: ANTONIO PINK Rep #: [id number] : 1955 Provider: EULALIA Veloz Age/Sex: 62/F Location: [facility] Status: Signed Intake Vital Signs12/19/17 Height 5 ft 6 in 12/19/17 Weight: 221 lb 8 oz 12/19/17 Body Mass Index (BMI) 35.7 12/19/17 Blood Pressure 142/82 Intake Visit Reasons: PMB Christian Counselor Required: No Is patient in pain?: Yes (Pt. taking excedrin. 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 Varies in amount. Somedays can bleed through pad and tampon in less then one hour. States went to ED on 11/25 for bleeding. Ultrasound indicated 13mm endometrial lining and told to call for follow up with [facility]. She called yesterday due to bleeding persisted. Patient states mild CVS without cognitive deficit 2 years ago. She continues to be employed, ambulatory. No estrogen containing medications due to CVS. Is taking Ibuprofen, ASA and excedrine. Pregancy History 5 Elective abortions Hx Para 4 Spontaneous abortions 1 Past Pregnancies Del. DateName GA/Weeks Outcome Route Bth WeighInfant GeLabor LgtAnesthesiDel LocatProvider FOB t n h a n Office Procedures Endometrial Biopsy Endometrial Biopsy Test: Yes Not Applicable Consent Signed: Yes Time out checklist: patient, procedure, site marked/identified, positioning of patient, supplies available, allergies confirmed, team agrees on procedure Time out time: 09:00 tenaculum used: Yes dilator used: No Details: Tampon removed with minimal blood on it noted. Cervix prepped with betadine and pipelle inserted into uterus without complication. Specimen obtained and sent to lab for analysis. Upon removal of pipelle patient expelled approx 8cm clot and then began bleeding large amount. This was continuous through placement of tampon. This was removed and 2 tampons then placed. Phone call to Dr. Brittny Aldana. Patient was then transported to ED for follow up management. Assessment AND Plan Problems 1. Menometrorrhagia N92.1 Plan To ED per Dr. Aldana for further evaluation. Orders Orders: Coding Level of Care Code No Charge Diagnoses Menometrorrhagia N92.1 Additional Codes Endometrial Biopsy (70278) 12/19/17928 <Electronically signed by Akanksha BRUSH> Date Akanksha BRUSH Cosigner Signature: Date (if applicable) CC: ENDOMETRIAL BX/CURETTINGS Observed: 12/19/2017 Status: F Source: [place] 7:30 AM [facility] REPOSITORY Patient: ANTONIO PINK : 1955 (62/F) Acct Num: [id number] Phys: Katya ALBRIGHT,Summer Unit Num: [id number] Loc: [facility] Specimen: [id number] Received: 12/23/17909 Spec Type: ENDOM BX/C TISSUES TISSUES: Endometrium, NOS COMMENT Immunohistochemistry ([id number]) supports the above diagnosis. No microsatellite instability was detected by immunohistochemical stains. Case has been reviewed in consultation with Dr. Peters who concurs with the above diagnosis. IDC:SJ GROSS DESCRIPTION Received in fixative is one container labeled with the patient's name and designated endometrial curettings. The specimen consists of multiple fragments of blood clot mixed with a few fragments of lazaro- white soft tissue that in aggregate measure 7.5 x 3 x 1 cm. The entire specimen is submitted in nine cassettes. / SJ:jacqueline 12/23/17 TC:0 CPT: 79044 HEADER OPERATION: Dilation and curettage PRE-OP DIAGNOSIS: Post menopausal bleeding with vaginal hemorrhage TISSUE SUBMITTED: Endometrial curettings MICROSCOPIC DESCRIPTION Slides are reviewed. MICROSCOPIC DIAGNOSIS Endometrium, curettings: Endometrial adenocarcinoma, endometrioid type, FIGO grade 2. AM:jacqueline 12/24/17 Signed Javier Demian 12/26/17 <signature on file> Performed By: #### PEMB #### [facility] [address] [place], [address] IMMUNOHISTOCHEMISTRY Observed: 12/19/2017 Status: F Source: [place] 12:00 AM [facility] REPOSITORY Patient: ANTONIO PINK : 1955 (62/F) Acct Num: [id number] Phys: Katya ALBRIGHT,Summer Unit Num: [id number] Loc: [facility] Specimen: [id number] Received: 12/24/17 - 1254 Spec Type: IMMUNO TISSUES TISSUES: Endometrium, NOS SPECIMEN INFORMATION: Tissue Source: Endometrial curettings Clinical Info: Postmenopausal bleeding with vaginal hemorrhage Specimen Number: [id number] #3 CPT code: 92921, 39052 x15 METHODOLOGY: Deparaffinized sections of prefer/formalin-fixed tissue or PAP/DQ stained slides are incubated with monoclonal/polyclonal antibodies/oligonucleotide probes. Localization is made via biotin free immunoperoxidase method. Appropriate controls are performed and reacted as expected. Results on target cell population are indicated in the following table: RESULTS: ANTIBODY / CLONE RESULT ER (6F11) positive UT (1E2) positive CK7 (OV-TL12/30) positive CK20 (KS20.8) negative 34BE12 (34BE12) positive, focal CK8 (65mlmmN06) positive Cyclin D1/BCL-1 (SP4) positive Vimentin (V9) positive CEA (11-7/TF-3HB-1) negative CK19 (A53-B/A2.26) positive P53 (DO-7) positive, 5%, dim Ki-67 (30-9) positive, moderate MLH1 (M1) positive MSH2 (25D12) positive MSH6 (44) positive PMS2 (RFJ7757) positive These tests were developed and their performance characteristics determined by [facility]. They may not have been cleared or approved by the U.S. Food and Drug Administration. The FDA has determined that such clearance or approval is not necessary. INTERPRETATION: Endometrial curettings: Endometrial adenocarcinoma. AM:jacqueline 12/25/17 Comment: There is no microsatellite instability detected. Case has been reviewed in consultation with Dr. Peters who concurs with the above diagnosis. IDC:[facility] [place] [address] [place], [place] [address] Signed Javier De La Cruzih 12/25/17 <signature on file> Performed By: #### PIMM #### [facility] [address] [place] [address]. [place], [address] EMERGENCY DEPARTMENT Observed: 11/25/2017 Status: F Source: [place] SUMMARY 11:26 PM [facility] REPOSITORY [facility] Medical Records Department [address] [place] [address] Emergency Department Summary 11/25/17 1604 MR#: [id number] Acct: [id number] Name: ANTONIO PINK Rep #: [id number] : 1955 62 From: Lian Garcia MD PCP: Donovan Hernandez MD Status: DEP ER - ER Visit Summary Date of Service: 11/25/17 Chief Complaint: Vaginal bleeding History of Present Illness: The patient is a 62 F who has not had a regular period in several years. Patient states she has been spotting for the past couple of months. She does not have insurance that she has not gone to the doctor for this. She developed some mild lower abdominal cramping yesterday and had a gush of vaginal blood with clot today. Past surgical history significant only for C-sections. She denies family history of uterine cancer. Physical Examination: Vital signs significant for blood pressure of 169/94, otherwise unremarkable. Patient sitting upright in bed no acute distress. Heart is regular rate and rhythm. Lung sounds are clear. Abdomen is soft with mild superpubic tenderness. There is no guarding or rebound. Active bowel sounds are noted throughout. Test Results: CBC was a hemoglobin 9.8 hematocrit 32.5. Chemistry studies normal. Coags negative. Ultrasound of the pelvis shows a fibroid uterus with at least 3 large fibroids. Endometrium is measuring 14 mm. Emergency Department Course and Treatment: Patient was given IV fluids here. Bleeding is controlled at this time. Vital signs remained stable. Patient wishes to follow-up with Dr. Jean. I spoke with her and patient will be followed up in the office closely. Treatment Plan: [] Disposition: Discharge Impression: 1. Postmenopausal bleeding 2. Fibroid uterus This note was generated with Advanced LEDsation software. It may contain incorrect words, spelling, and punctuation that were not noted in review of the chart prior to signing ED Disposition - Plan for ED Patient: Chief Complaint: Vag Bleeding Referrals: Alek Hernandez MD [Primary Care Provider] - What to do if you have Problems For any increased pain, shortness of breath, bleeding, nausea or vomiting, chest pain, or any unexpected problems, contact your Primary Care Provider. Call [facility] ([phone]) or report to the closest Emergency Room. Call 911 if necessary. 11/25/17 2326 <Electronically signed by Lian Garcia MD> Date Lian Garcia MD Cosigner Signature (If Indicated): Date CC: Donovan Hernandez MD DISCHARGE INSTRUCTION Observed: 11/25/2017 Status: F Source: [place] 6:36 PM [facility] REPOSITORY [facility] Medical Records Department [address] [place] [address] Discharge Instruction 11/25/17 1835 MR#: [id number] Acct: [id number] Name: ANTONIO PINK Rep #: [id number] : 1955 62 From: Lian Garcia MD PCP: Donovan Hernandez MD Status: REG ER ED Disposition - Plan for ED Patient: Disposition: Home or Assisted Living Chief Complaint: Vag Bleeding Instructions: ED Bleed Irregular Vaginal, ED Fibroids Referrals: Susie Jean MD [STAFF PHYSICIAN] - As soon as possible What to do if you have Problems For any increased pain, shortness of breath, bleeding, nausea or vomiting, chest pain, or any unexpected problems, contact your Primary Care Provider. Call [facility] ([phone]) or report to the closest Emergency Room. Call 911 if necessary. 11/25/17 1836 <Electronically signed by Lian Garcia MD> Date Lian Garcia MD Cosigner Signature (If Indicated): Date CC: Donovan Hernandez MD CBC W/DIFF, AUTOMATED Collected: 11/25/2017 Status: F Source: [place] 4:25 PM [facility] REPOSITORY TYPE CODE TESTS RESULT OUT OF RANGE REFERENCE UNITS LAB L100.1000 4.4-11.0 K/mm3 Normal WBC 8.2 LAB L100.1200 4.2-5.4 M/mm3 Low RBC 4.11 LAB L100.1300 12.0-15.0 g/dl Low HGB 9.8 LAB L100.1400 37-47 % Low HCT 32.5 LAB L100.1500 81-99 fL Low MCV 79.1 LAB L100.1600 27.0-32.0 pg Low MCH 23.8 LAB L100.1700 32-36 g/gl Low MCHC 30.2 LAB L100.1810 11.6-14.6 % High RDW CV 14.9 LAB L100.1820 35.1-43.9 fl Normal RDW SD 43.0 LAB L100.1900 150-450 K/mm3 Normal PLT 377 LAB L100.2000 6.2-12.0 fl Normal MPV 8.6 LAB L100.2100 47-70 % High NEUT% 71.7 LAB L100.2200 19-41 % Low LY% 15.3 LAB L100.2300 0-10 % High MONO% 10.1 LAB L100.2400 0-5 % Normal EO% 2.3 LAB L100.2500 0-1 % Normal BASO% 0.4 LAB L100.2550 0.0-0.9 % Normal IM GRAN % 0.200 Result Comment: IG% - Immature Granulocytes (promyelocytes, myelocytes and metamyelocytes) > 1% indicates that a LEFT SHIFT is Present. LAB L100.2620 2.0-7.7 X10 3/uL Normal Absolute Neut 5.9 LAB L100.2720 0.83-4.51 X10 3/ul Normal Absolute Lymph 1.26 Performed By: #### L100.0100 #### [facility] [address] [place], [address] PROTHROMBIN TIME W/INR Collected: 11/25/2017 Status: F Source: [place] 4:25 PM [facility] REPOSITORY TYPE CODE TESTS RESULT OUT OF RANGE REFERENCE UNITS LAB L300.4150 11.7-14.9 SECONDS Normal PROTIME 12.6 LAB L300.4200 Normal INR 0.9 Performed By: #### L300.3900, L300.4310 #### [facility] [address] [place], [address] PARTIAL THROMBOPLAST Collected: 11/25/2017 Status: F Source: [place] TIME 4:25 PM [facility] REPOSITORY TYPE CODE TESTS RESULT OUT OF RANGE REFERENCE UNITS LAB L300.4310 24.1-36.2 Seconds Normal PTT 28.8 Performed By: #### L300.3900, L300.4310 #### [facility] [address] [place], [address] BASIC METABOLIC Collected: 11/25/2017 Status: F Source: [place] PROFILE (BMP) 4:25 PM [facility] REPOSITORY TYPE CODE TESTS RESULT OUT OF RANGE REFERENCE UNITS LAB L501.0100 74-106 mg/dL Normal GLU 93 Result Comment: Please note revised GLUCOSE reference range effective 2017. LAB L501.1000 7-18 mg/dL Normal BUN 13 LAB L501.1100 0.55-1.02 mg/dL Normal CREAT,SERUM 0.74 Result Comment: The validity of the calculated GFR AND GFRAA in patients over 70 years has not been determined. Clinical correlation is essential. LAB L501.1110 >60 mL/min Normal EST GFR 85 Result Comment: Non- GFR Calc LAB L501.1115 >60 mL/min Normal EST GFR - AA 102 Result Comment: GFR Calc LAB L501.1255 ml/min Normal Estimated CRCL 73.79 LAB L501.1300 10-20 RATIO Normal BUN/CRE 17.6 LAB L501.2200 8.5-10 mg/dL Normal .1 CA 8.6 LAB L501.5300 136-14 mmol/L Normal 5 NA 141 LAB L501.5600 3.5-5. mmol/L Normal 1 K 3.9 LAB L501.5900 98-107 mmol/L High CL 108 LAB L501.6100 21.0-3 mmol/L Normal 2.0 CO2 27.0 LAB L501.6200 5-15 Normal GAP 6 Performed By: #### L500.2500 #### [facility] [address] [place], [address] TRANSVAGINAL Observed: 11/25/2017 Status: F Source: [place] NON- 4:03 PM [facility] REPOSITORY [facility] Imaging Services [address] [place] [address] Transvaginal Non- MR#: [id number] Acct: [id number] Name: ANTONIO PINK Jeramie Rep #: [id number] : 1955 F 62 From: Praful Adam MD PCP: Donovan Hernandez MD Status: REG ER Study: Transvaginal Non- Date of Exam: 11/25/17 Exam# [id number] Ordering Dr: Lian Garcia MD STUDY: ULTRASOUND OF THE FEMALE PELVIS - COMPLETE REASON FOR EXAM: Female, 62 years old. Postmenopausal bleeding. LMP: Unknown. TECHNIQUE: Transabdominal and Transvaginal. TECHNICAL QUALITY: Adequate. COMPARISON: None. FINDINGS: The uterus is anteverted and is in a midline position. The uterus measures 13.4 x 9.7 x 6.8 cm. There is a Nabothian cyst of the cervix. The endometrium measures 14 mm in thickness, and is hyperechoic. There is no demonstrated endometrial mass. There multiple hypoechoic masses consistent with fibroids. Largest measures 4.0 cm. Additional lesion measuring 1.9 to 3.0 cm. I.U.D. - The patient does not have an I.U.D. The right ovary is visualized. The right ovary measures 2.1 x 1.6 x 1.5 cm. There is no right ovarian cyst or ovarian mass. There is no visualized right adnexal mass or complex lesion. There is normal arterial and normal venous vascularity. The left ovary is non-visualized. There is no fluid in the cul-de-sac. The pre void volume of the bladder was 141 ml. US/Transvaginal Non- IMPRESSION: Fibroid uterus. Electronically Signed: Praful Adam MD at 17:59 EDT , Service support , CC: Donovan Hernandez MD; Lian Garcia MD Perforator Typist: Signed ALLERGIES ALLERGIES DATE TYPE / CODE NAME / CODE REACTION SEVERITY SOURCE 12/29/2017 Drug morphine/F0 Anaphylaxis Unknown [facility] Allergy/4160 [id number]([facility] [address](SNOMED NORM) Repository CT) 12/29/2017 Drug codeine/F00 Upset Stomach Unknown [facility] Allergy/4160 9199015([facility] [address]284(SNOMED ORM) Repository CT) ENCOUNTERS ENCOUNTERS ADMIT/DISCHARGE ACCOUNT NUMBER ADMITTING ENCOUNTER LOCATION SOURCE CLASS 04/02/2018 [id number] Ambulatory [facility] ding:MTLAB Repository 03/05/2018 [id number] Ambulatory [facility] ding:CT Repository 02/24/2018 [id number] [facility] ding:MTLAB Repository 01/19/2018 [id number] [address] [place] [address] RTN4Vmdb: System [id number]: Repository [id number] 01/12/2018 [id number] Ambulatory [facility] Repository 12/29/2017/09/10 [id number] Ambulatory BMSBuilding: [place] [address] [facility] Repository 12/19/2017/12/20/19 [id number] Ambulatory [place] [address] [place] [address] ding:SDCRoom Repository : AC-TBA 12/19/2017/12/20/19 [id number] Ambulatory BMSBuilding: [place] [facility] Repository 11/25/2017/11/26/19 [id number] Emergency [place] [address] ding:ED Repository PAYERS PAYERS ENCOUNTER GUARANTOR PAYER SUBSCRIBER SOURCE 04/02/2018 ANTONIO [id number] Insurance:PARAMOUNT JOHNSONDOB: [facility] [id number] Valley Hospital Number: Repository RDMAULIK [place] [id number]: (330) Date:1564-87-43XN [phone] () [address], [place] [address]TJ: 04/02/2018 Secondary NOT GIVENUNK [place] Insurance:SELF PAY [facility] Number: Effective Repository Date:2018-04-02 03/05/2018 ANTONIO [id number] Insurance:PARAMOUNT JOHNSONDOB: [facility] [id number] Valley Hospital Number: Repository RDWPATRICE [place] [id number]: (330) Date:1215-30-94NX [phone] () [address], [place] [address]IK: 03/05/2018 Secondary NOT GIVENUNK [place] Insurance:SELF PAY [facility] Number: Effective Repository Date:2018-02-24 02/24/2018 ANTONIO Bobo Primary ANTONIO [id number] Insurance:PARAMOUNT JOHNSONDOB: [facility] [id number] Valley Hospital Number: Repository RDWPATRICE [place] [id number]: (330) Date:5398-04-81YI [phone] () [address], [place] [address]QM: 02/24/2018 Secondary NOT GIVENUNK [place] Insurance:SELF PAY [facility] Number: Effective Repository Date:2018-02-24 01/19/2018 Antonio Bobo [facility] Insurance:[place] JohnsonDOB: System W [employer] [id number] Repository [place] MedicaidPolicy Western Number: Effective [place], [place] Date: [address]Stc: () 01/12/2018 Antonio Bobo Primary [facility] Insurance:MedicaidPol JohnsonDOB: System W icy Number: Effective [id number] [facility] Date: [place], [place] [address]Ark: () 12/29/2017 ANTONIO Bobo Primary ANTONIO R [place] [id number] Insurance:MEDICAIDPol JOHNSONDOB: [facility] ic Number: [id number] Valley Hospital [id number] Repository [place] Date:2017-12-23 [address]Jin: () 12/29/2017 Secondary NOT GIVENUNK [place] Insurance:SELF PAY [facility] Number: Effective Repository Date:2017-12-29 12/19/2017 ANTONIO R Primary ANTONIO R [place] [id number] Insurance:MEDICAIDPol JOHNSONDOB: [facility] ic Number: [id number] Valley Hospital [id number] Repository [place], [place] Date:2017-12-19 [address]Fei: () 12/19/2017 Secondary NOT GIVENUNK [place] Insurance:SELF PAY [facility] Number: Effective Repository Date:2017-12-19 12/19/2017 ANTONIO R Primary ANTONIO R [place] [id number] W Insurance:MEDICAIDPol JOHNSONDOB: [facility] icy Number: [id number] Valley Hospital [id number] [place] Date:2017-12-18 [address]Znp: () 12/19/2017 Secondary NOT GIVENUNK [place] Insurance:SELF PAY [facility] Number: Effective Repository Date:2017-12-19 11/25/2017 ANTONIO Bobo Primary ANTONIO [id number] [facility] JOHNSONDOB: [facility] - [place] Number: [id number] [id number] Repository [place], [place] Date:2017-11-25 [id number]: () 11/25/2017 Secondary NOT GIVENUNK [place] Insurance:SELF PAY [facility] Number: Effective Repository Date:2017-11-25
== END ==
PROVIDERS: Family Provider Family Medicine; PCP Family Medicine; Referring Provider Radiology Radiation Oncology; Visit Provider Radiology Radiation Oncology
DX: C54.1 Malignant neoplasm of endometrium (principal)
CPT/HCPCS: 36415; 85025

== ENCOUNTER → 2018-09-04 10:20 | Outpatient (CLI) | payer MEDICAID, SELFPAY ==
[2017-12-29 10:54] VITALS: BMI 35.5
--- NOTE | 2018-09-04 10:25 | RAD_ITS ---
STUDY: X-RAY - LUMBAR SPINE REASON FOR EXAM: Female, 62 years old. Pain. Hysterectomy. TECHNIQUE: 5 view(s) of the lumbar spine were obtained. COMPARISON: None FINDINGS: There is no evidence of fracture or dislocation in the lumbar spine. The vertebral body heights are well-maintained. There are mild degenerative changes with disc space narrowing and facet hypertrophy. RAD/L/S Spine Min 4 Views IMPRESSION: No fracture or dislocation in the lumbar spine. Mild degenerative change. Electronically Signed: Steven Person, at 21:57 EDT Tel , Service support ,
--- NOTE | 2018-09-04 10:25 | RAD_ITS ---
STUDY: X-RAY - ABDOMEN/PELVIS REASON FOR EXAM: Female, 62 years old. Pain. Recent hysterectomy. TECHNIQUE: Supine and upright views of the abdomen. COMPARISON: CT dated 03/05/2018. FINDINGS: There is no bowel obstruction. There is air and stool to the level of the rectum. There is a large amount of stool in the colon, consistent with constipation. There is no free air. There are surgical clips noted in the pelvis. The visualized osseous structures are within normal limits. RAD/Abd Inc Decub and/or Erect IMPRESSION: No bowel obstruction. Constipation. Electronically Signed: Steven Person, at 21:50 EDT Tel , Service support ,
[2018-09-04 12:35] LABS: Erythrocyte Sedimentation Rate 15 mm/hr (0-30)
[2018-09-04 12:40] LABS: Absolute Lymphocyte Count 0.41 X10^3/ul (0.83-4.51); Absolute Neutrophil Count 4.1 X10^3/uL (2.0-7.7); Basophil# 0.02 X10^3/uL; Basophil% 0.4 % (0-1); Eosinophil# 0.11 X10^3/uL; Eosinophils% 2.1 % (0-5); Hematocrit 35.5 % (37-47); Hemoglobin 10.9 g/dl (12.0-15.0); Lymphocyte # 0.41 X10^3/ul (4.0); Lymphocyte % 7.8 % (19-41); Mean Corp Hgb Conc 30.7 g/gl (32-36); Mean Corpuscular Hgb 24.4 pg (27.0-32.0); Mean Corpuscular Volume 79.6 fL (81-99); Monocyte% 11.4 % (0-10); Neutrophil # 4.08 X10^3/uL (2.7-7.7); Neutrophil % 77.5 % (47-70); Platelet Count 341 K/mm3 (150-450); RBC Distribution Width CV 16.4 % (11.6-14.6); Red Blood Count 4.46 M/mm3 (4.2-5.4); White Blood Count 5.3 K/mm3 (4.4-11.0)
[2018-09-04 12:42] LABS: Differential Indicated SCAN CRITERIA MET; POSITIVE COUNT NO; POSITIVE DIFFERENTIAL YES; POSITIVE MORPHOLOGY NO
[2018-09-04 12:51] LABS: AST(SGOT) 22 U/L (15-37); Alanine Aminotransfer ALT/SGPT 31 U/L (13-56); Albumin, Serum 3.6 g/dL (3.2-5.0); Alkaline Phosphatase 113 U/L (45-117); Anion Gap 5 (5-15); BUN 20 mg/dL (7-18); BUN/Creat Ratio 30.2 RATIO (10-20); Calcium,Total 8.3 mg/dL (8.5-10.1); Chloride 109 mmol/L (98-107); Creatinine, Serum 0.66 mg/dL (0.55-1.02); EST Glomerular Filtration Rate 96 mL/min (>60); Est Glom Filt Rate - Afr Amer 116 mL/min (>60); Globulin 3.6 g/dL (2.2-4.2); Glucose 105 mg/dL (74-106); Potassium 3.9 mmol/L (3.5-5.1); Protein, Total 7.2 g/dL (6.4-8.2); Sodium Level 139 mmol/L (136-145); Thyroid Stim Hormone (TSH) 1.62 uIU/mL (0.358-3.74)
== END ==
PROVIDERS: Family Provider Family Medicine; PCP Family Medicine; Referring Provider Family Medicine; Visit Provider Family Medicine
DX: M54.5 Low back pain (principal); R19.7 Diarrhea, unspecified; R10.9 Unspecified abdominal pain
CPT/HCPCS: 36415; 72110; 74019; 80053; 84443; 85025; 85652; 87086; 87177; 87209; 87329

== ENCOUNTER → 2018-09-07 10:41 | Outpatient (CLI) | payer MEDICAID, SELFPAY ==
[2017-12-29 10:54] VITALS: BMI 35.5
[2018-09-09 12:18] LABS: Giardia Lamblia, Stool EIA Negative (Negative)
== END ==
PROVIDERS: Family Provider Family Medicine; PCP Family Medicine; Referring Provider Family Medicine; Visit Provider Family Medicine
DX: R19.7 Diarrhea, unspecified (principal); R10.9 Unspecified abdominal pain
CPT/HCPCS: 82274; 87177; 87209; 87329; 87493

== ENCOUNTER 2018-10-05 07:00 | Day surgery (SDC) | payer MEDICAID, SELFPAY ==
--- NOTE | 2018-09-21 01:40 | HP_ITS ---
ADDENDUM by Pascale Choi MD on 09/21/18 at 1341 Addendum entered and electronically signed by Pascale Choi MD 09/21/18 13:41: Patient's father did have colon cancer in his late 60s. Intake Chief Complaint: D&C Follow Up Allergies morphine Allergy (Verified 12/29/17 10:55) Anaphylaxis codeine Adverse Reaction (Verified 12/29/17 10:55) Upset Stomach Medications Aspirin [Aspirin, Baby] 81 mg PO DAILY@0800 #100 tab.chew 05/06/14 [Rx Confirmed 09/21/18] Brimonidine Tartrate/Timolol [Combigan Eye Drops] 1 drp RIGHT EYE BID 12/19/17 [History Confirmed 09/21/18] dicyclomine 10 mg capsule 10 mg PO .FOUR TIMES DAILY cap 09/21/18 [History Confirmed 09/21/18] diphenoxylate-atropine 2.5 mg-0.025 mg tablet 2 tab PO Q6H tab 09/21/18 [History Confirmed 09/21/18] gabapentin 100 mg capsule 100 mg PO TID 09/21/18 [History Confirmed 09/21/18] pantoprazole 40 mg tablet,delayed release 40 mg PO DAILY #30 tab 09/21/18 [Rx Confirmed 09/21/18] Assessment & Plan Problems 1. Diarrhea R19.7 2. Gastroesophageal reflux disease K21.9 3. S/P radiation therapy Z92.3 4. Left sided abdominal pain R10.9 Plan - Pascale Choi MD Patient continue her aspirin 81 mg she had a TIA 45 years ago. We will start patient on Protonix 40 mg p.o. daily for her reflux see if that improves her diarrhea at all. I have discussed the above with the patient. I have offered the patient EGD and colonoscopy for evaluation with random biopsies due to the history of diarrhea. I have explained the risks/benefits of the procedure and described the procedure. I have discussed the risks with the patient, including but not limited to: infection, bleeding, perforation of the GI tract requiring emergency surgery, inability to complete the procedure, injury to any internal organs, complications of anesthesia, etc. - the patient understands and agrees to proceed. I have answered all the patient's questions to the patient's satisfaction and the patient has no further questions. The patient has been given instructions for the colon cleansing preparation. 1 day of clears, MiraLAX Dulcolax split prep Pascale Choi M.D. Pager: [phone] [facility] [address] [place] [address], [facility], [address] [place] [address] Office: [phone] Orders Orders: Colonoscopy Today EGD Today Medications New: pantoprazole 40 mg PO DAILY 30 tabs 2RF Plan Detail Follow Up We will schedule EGD and colonoscopy. 09/21/18 1341 <Electronically signed by Pascale Choi MD> Date Pascale Choi MD cc: Donovan Hernandez MD ~* Signed Intake Vital Signs 09/21/18 Body Mass Index (BMI) 35.5 09/21/18 Height 5 ft 6 in 09/21/18 Weight: 226 lb 09/21/18 Body Mass Index (BMI) 36.4 09/21/18 Blood Pressure 152/85 H 09/21/18 Blood Pressure Location Rt brachial 09/21/18 Blood Pressure Position Sitting 09/21/18 Respiratory Rate 14 09/21/18 Pulse Rate 56 L 09/21/18 Pulse Source Monitor 09/21/18 Temperature 98.2 F 09/21/18 Temperature Source Oral 09/21/18 Pulse Ox 97 09/21/18 Oxygen Delivery Method room air Intake Visit Reasons: Cscope 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 Required: No Is patient in pain?: No (LLQ- tenderness) Allergies morphine Allergy (Verified 12/29/17 10:55) Anaphylaxis codeine Adverse Reaction (Verified 12/29/17 10:55) Upset Stomach Medications Aspirin [Aspirin, Baby] 81 mg PO DAILY@0800 #100 tab.chew 05/06/14 [Rx Confirmed 09/21/18] Brimonidine Tartrate/Timolol [Combigan Eye Drops] 1 drp RIGHT EYE BID 12/19/17 [History Confirmed 09/21/18] dicyclomine 10 mg capsule 10 mg PO .FOUR TIMES DAILY cap 09/21/18 [History Confirmed 09/21/18] diphenoxylate-atropine 2.5 mg-0.025 mg tablet 2 tab PO Q6H tab 09/21/18 [History Confirmed 09/21/18] gabapentin 100 mg capsule 100 mg PO TID 09/21/18 [History Confirmed 09/21/18] pantoprazole 40 mg tablet,delayed release 40 mg PO DAILY #30 tab 09/21/18 [Rx Confirmed 09/21/18] PFSH Medical History Glaucoma (Acute) Mini stroke (Acute) Endometrial cancer (Acute) Postmenopausal bleeding (Acute) CVA (cerebral vascular accident) (Acute) s/p radiation (Acute) Surgical History Hx of tonsillectomy (Acute) Hx of hysterectomy (Acute) delivery delivered (Acute) Family History Father Colon cancer Heart disease Hypertension CVA (cerebral vascular accident) Mother Heart disease Hypertension Social History number of children: 4 current occupational status: employed 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 Patient states that 4 days after she started her radiation status post hysterectomy for uterine cancer she started to have diarrhea in Apr 2018. And it only got worse. Patient was taking Imodium to help with the diarrhea. States that she eats fiber and the left sided abdominal pain gets worse. She did recently also give Bentyl from her PCP which she states helps with her left mid abdominal pain which she gets daily with eating a 5/10, comes and goes. Patient has never had a colonoscopy previously. Patient also states that she gets heartburn about 2 times a week and last couple of days she has had reflux up into her upper esophagus with burning patient is not on any medications for this. Patient states she has bowel movements 4-5 times a day or more, diarrhea, she states she also has hemorrhoids and will have occasional small amount blood with wiping, bright red, daily. ROS General General: Yes weight change (Gain) and fatigue; no colon cancer, breast cancer or weakness HEENT HEENT: No difficulty swallowing, eye injury, eye surgery, swollen glands or hoarseness Endo Endocrine: No thyroid disease, diabetes mellitus, thyroid cancer, Hair loss, heat intolerance or cold intolerance Skin Skin: No rash or changing moles Musc Musculoskeletal: Yes back problems; no arthritis, rheumatoid arthritis, gout or joint pain Cardio Cardiovascular: Yes high blood pressure; no murmur, pacemaker, heart disease, atrial fibrillation, heart attack, heart stent, palpitations, shortness of breat with exertion or chest pain Psych Psychiatric: Yes depression and anxiety; no hearing voices Resp Respiratory: Yes shortness of breath, No sleep apnea, No cough, No COPD, No asthma, No emphysema, No wheezing Gastro Gastrointestinal: Yes abdominal pain, Yes nausea or vomiting, Yes diarrhea, Yes constipation, No blood in stool, Yes acid reflux, Yes hemorrhoids, No ulcers, No gallbladder problem, No black,tarry stools Corky Hematologic: Yes blood thinners, No blood disorders, Yes bleeding, Yes anemia, No blood clots Neuro Neurologic: Yes numbness, Yes tingling, No weakness Exam Const General: cooperative, comfortable, no acute distress Resp Effort & Inspection: normal respiratory effort Cardio Rate: regular rate Heart Sounds: no murmurs GI Inspection: non-distended Palpation: soft, no guarding, tender (Left mid quadrant, mild suprapubic, no peritoneal signs) Extrem General: no clubbing, cyanosis or edema Psych Affect: normal affect Assessment & Plan Problems 1. Diarrhea R19.7 2. Gastroesophageal reflux disease K21.9 3. S/P radiation therapy Z92.3 4. Left sided abdominal pain R10.9 Plan Patient continue her aspirin 81 mg she had a TIA 45 years ago. We will start patient on Protonix 40 mg p.o. daily for her reflux see if that improves her diarrhea at all. I have discussed the above with the patient. I have offered the patient EGD and colonoscopy for evaluation with random biopsies due to the history of diarrhea. I have explained the risks/benefits of the procedure and described the procedure. I have discussed the risks with the patient, including but not limited to: infection, bleeding, perforation of the GI tract requiring emergency surgery, inability to complete the procedure, injury to any internal organs, complications of anesthesia, etc. - the patient understands and agrees to proceed. I have answered all the patient's questions to the patient's satisfaction and the patient has no further questions. The patient has been given instructions for the colon cleansing preparation. 1 day of clears, MiraLAX Dulcolax split prep Pascale Choi M.D. Pager: [phone] [facility] [address] [place] [address], [facility], [address] [place] [address] Office: [phone] Orders Orders: Colonoscopy Today EGD Today Medications New: pantoprazole 40 mg PO DAILY 30 tabs 2RF Plan Detail Follow Up We will schedule EGD and colonoscopy. Coding Level of Care Code Off vis,new,level 3 Diagnoses Diarrhea R19.7 Gastroesophageal reflux disease K21.9 S/P radiation therapy Z92.3 Left sided abdominal pain R10.9 09/21/18 1340 <Electronically signed by Pascale Choi MD> Date Pascale Choi MD I have examined the patient the following changes are noted: Patient denies any reflux symptoms on the Protonix, still states she has the left-sided abdominal pain/flank pain. Patient is also still having diarrhea which is unchanged from when I saw her.
[2018-09-21 13:08] VITALS: BMI 35.5
[2018-10-05 07:15] VITALS: BP 153/87; PULSE 72; RESP 18; TEMP 36.9; O2SAT 98; BMI 36.0
--- NOTE | 2018-10-05 08:00 | IMM_PTH ---
PATIENT: DANNY PINK LOC: EN U#:[id number] AGE/SX: 62/F ROOM: RE10/05/[address]: Dr. Pascale Choi MD : 1955 BED: DIS: 10/05/2018 SPEC #: [id number] RECD: 10/05/18 14:51 STATUS: YUE REQ #: [id number] JOSEPH: 10/05/18 08:[address]: Pascale Choi DEPT: IMMUNOHISTOCHEMISTRY RECD BY: Aye Moon ENTERED: 10/05/18 14:51 SP TYPE: IMMUNO OTHR DR: Dr. Donovan Hernandez MD Tissues: A - Stomach, NOS Procedures: H Pylori (initial) PHYSICIAN & INSTITUTION [place] [address] SPECIMEN INFORMATION: Tissue Source: A - Antrum biopsy Clinical Info: GERD, abdominal pain Specimen Number: [id number] CPT code: 56110 METHODOLOGY: Deparaffinized sections of prefer/formalin-fixed tissue or PAP/DQ stained slides are incubated with monoclonal/polyclonal antibodies/oligonucleotide probes. Localization is made via biotin free immunoperoxidase method. Appropriate controls are performed and reacted as expected. Results on target cell population are indicated in the following table: RESULTS: ANTIBODY / CLONE RESULT Block A H Pylori (polyclonal) negative These tests were developed and their performance characteristics determined by [facility]. They may not have been cleared or approved by the U.S. Food and Drug Administration. The FDA has determined that such clearance or approval is not necessary. INTERPRETATION: A. Antrum biopsy: Negative for Helicobacter pylori organisms. AM:jacqueline 10/06/18
--- NOTE | 2018-10-05 08:00 | EGD_PTH ---
PATIENT: DANNY PINK LOC: EN U#:[id number] AGE/SX: 62/F ROOM: RE10/05/[address]: Dr. Pascale Choi MD : 1955 BED: DIS: 10/05/2018 SPEC #: [id number] RECD: 10/05/18 12:48 STATUS: YUE GUY #: [id number] JOSEPH: 10/05/18 08:[address]: Pascale Choi DEPT: SURGICAL PATHOLOGY RECD BY: Axel Roberts ENTERED: 10/05/18 13:29 SP TYPE: EGD BIOPSY BRETT DR: Dr. Donovan Hernandez MD Tissues: A - Gastric mucous membrane B - Gastric mucous membrane C - Descending colon D - Sigmoid colon biopsy E - Rectum, NOS Procedures: Special Stain Group II Surgery Specimen Level IV Alcian Blue/PAS (control) HEADER OPERATION: Colonoscopy, EGD ([place]) PRE-OP DIAGNOSIS: GERD, abdominal pain TISSUE SUBMITTED: A - Antrum biopsy, H. pylori and path, B - GE junction biopsy, C - Random biopsies descending colon, D - Random biopsy sigmoid, E - Rectal erythema biopsy MICROSCOPIC DIAGNOSIS A. Gastric antrum, biopsy: Chronic gastritis, mild to moderate. See comment. B. Gastroesophageal junction, biopsy: Mild chronic inflammation. No evidence of intestinal metaplasia. See comment. C. Descending colon, biopsy: No pathologic diagnosis. D. Sigmoid colon, biopsy: No significant pathologic change. No evidence of colitis. See microscopic description and comment. E. Rectum, biopsy: No pathologic diagnosis. AM:jacqueline 10/06/18 COMMENT A. The results of immunohistochemistry for Helicobacter pylori will be reported separately ([id number]). B. Alcian blue/PAS stain with matched control supports the above diagnosis. D. Clinical correlation is suggested. MICROSCOPIC DESCRIPTION Slides are reviewed. D. Sections show focal superficial mucosal hemorrhage and mild architectural change. GROSS DESCRIPTION A - Received is one container labeled with the patient's name and not further designated. The specimen consists of two irregular fragments of light lazaro soft tissue that in aggregate measure 0.5 x 0.3 x 0.1 cm. The specimen is totally submitted in one cassette. B - Received is one container labeled with the patient's name and not further designated. The specimen consists of one irregular fragment of light lazaro soft tissue that measures 0.5 x 0.2 x 0.1 cm. The specimen is totally submitted in one cassette. C - Received is one container labeled with the patient's name and not further designated. The specimen consists of one irregular fragment of light lazaro soft tissue that measures 0.2 x 0.2 x 0.1 cm. The specimen is totally submitted in one cassette. D - Received is one container labeled with the patient's name and not further designated. The specimen consists of multiple irregular fragments of light lazaro soft tissue that in aggregate measure 1 x 0.3 x 0.1 cm. The specimen is totally submitted in one cassette. E - Received is one container labeled with the patient's name and not further designated. The specimen consists of one irregular fragment of light lazaro soft tissue that measures 0.3 x 0.3 x 0.1 cm. The specimen is totally submitted in one cassette. / SJ:rg 10/05/18 TC:3 CPT: 51213 x5, 89926
[2018-10-05 08:41] VITALS: BP 142/79; BP 153/87; PULSE 74; RESP 18; TEMP 36.4; O2SAT 96
--- NOTE | 2018-10-05 08:42 | OP.ENDO_ITS ---
10/05/2018 Alek Hernandez [address] [place] [address] Re : Upper GI endoscopy procedure for Antonio Ramos Dear Dr. Hernandez This procedure was performed on Friday, October 05, 2018. My impressions and recommendations are as follows: Impressions : - Z-line slightly irregular, 35 cm from the incisors. - Erythematous mucosa in the antrum. Biopsied. - Normal examined duodenum. - Small sliding hiatal hernia. Recommendations : - Discharge patient to home. - Continue present medications. - Await pathology results. My findings are described in the full procedure note, which is enclosed. If I can be of further assistance, please feel free to contact me at Doctor phone number(s): , Work: . Sincerely, MD Pascale Estes MD 10/05/2018 8:42:38 AM This report has been signed electronically.
--- NOTE | 2018-10-05 08:49 | OP.ENDO_ITS ---
10/05/2018 Alek Hernandez [address] [place] [address] Re : Colonoscopy procedure for Antonio Ramos Dear Dr. Hernandez This procedure was performed on Friday, October 05, 2018. My impressions and recommendations are as follows: Impressions : - Hemorrhoids found on perianal exam. - Diverticulosis in the sigmoid colon. There was no evidence of diverticular bleeding. - Erythematous mucosa in the rectum. Biopsied. - The examination was otherwise normal on direct and retroflexion views. - Two biopsies were obtained in the sigmoid colon and in the descending colon. Recommendations : - Discharge patient to home. - High fiber diet. - Continue present medications. - Await pathology results. - Repeat colonoscopy in 10 years for screening purposes. My findings are described in the full procedure note, which is enclosed. If I can be of further assistance, please feel free to contact me at Doctor phone number(s): , Work: . Sincerely, MD Pascale Estes MD 10/05/2018 8:48:34 AM This report has been signed electronically.
[2018-10-05 08:50] VITALS: BP 153/87; BP 159/89; PULSE 81; RESP 16; O2SAT 94
[2018-10-05 08:55] VITALS: BP 153/87; BP 169/103; PULSE 78; RESP 18; O2SAT 96
[2018-10-05 09:05] VITALS: BP 153/87; BP 163/92; PULSE 70; RESP 18; TEMP 36.8; O2SAT 100
[2018-10-05 10:41] VITALS: BP 153/87
== END 2018-10-05 10:43 | disposition home or self-care (01) ==
LOC: EN 07:02 → AC 07:04
PROVIDERS: Family Provider Family Medicine; PCP Family Medicine; Referring Provider Surgery; Visit Provider Surgery
PROC: 0DJD8ZZ Inspection of Lower Intestinal Tract, Via Natural or Artificial Opening Endoscopic (ICD-10-PCS; CPT 45378; principal; 2018-10-05 07:55)
DX: K29.50 Unspecified chronic gastritis without bleeding (principal); K21.9 Gastro-esophageal reflux disease without esophagitis; K44.9 Diaphragmatic hernia without obstruction or gangrene; K64.9 Unspecified hemorrhoids; K52.9 Noninfective gastroenteritis and colitis, unspecified; K62.89 Other specified diseases of anus and rectum; K57.30 Diverticulosis of large intestine without perforation or abscess without bleeding; Z92.3 Personal history of irradiation; Z79.82 Long term (current) use of aspirin; Z79.899 Other long term (current) drug therapy; Z87.891 Personal history of nicotine dependence; Z86.73 Personal history of transient ischemic attack (TIA), and cerebral infarction without residual deficits; Z80.0 Family history of malignant neoplasm of digestive organs
CPT/HCPCS: 43239; 45380; 88305; 88313; 88342; J7120; J2405

== ENCOUNTER → 2018-11-06 | Outpatient (CLI) | payer MEDICAID, SELFPAY ==
--- NOTE | 2018-11-06 14:01 | VDLE_ITS ---
Reason For Study: SWELLING Procedure LEFT Exam performed in department. GSV is normal. A preliminary report was called and/or faxed CFV is compressible, spontaneous, phasic, to DR PROCTOR. competent, and demonstrates normal augmentation. FV is compressible, spontaneous, phasic, competent and demonstrates normal augmentation. POP V is compressible, spontaneous, phasic, competent and demonstrates normal augmentation. T/P Trunk is compressible. PTV is compressible. LT PerV is compressible. Interpretation Summary Deep veins of the left lower extremity are patent and compressible segmentally. There is no evidence of left lower extremity deep vein thrombosis. Valvular competence appears intact within the proximal deep venous system on the left . The left greater saphenous vein appears patent and compressible segmentally. Ordering Physician: Mervin Proctor Referring Physician: JORGE LUIS CALIXTO Performed By: Mi Wilkes, LYRIC, RVT
== END | disposition home or self-care (01) ==
LOC: CVS 13:59
PROVIDERS: Family Provider Family Medicine; PCP Family Medicine; Referring Provider Family Medicine; Visit Provider Family Medicine
DX: M79.89 Other specified soft tissue disorders (principal)
CPT/HCPCS: 93971

== ENCOUNTER → 2019-01-22 11:38 | Outpatient (CLI) | payer MEDICAID, SELFPAY ==
[2019-01-22 14:22] LABS: Absolute Lymphocyte Count 0.71 X10^3/uL (0.83-4.51); Absolute Neutrophil Count 5.8 X10^3/uL (2.0-7.7); Basophil# 0.03 X10^3/uL; Basophil% 0.4 % (0-1); Eosinophil# 0.05 X10^3/uL; Eosinophils% 0.7 % (0-5); Hematocrit 32.4 % (37-47); Hemoglobin 9.4 g/dL (12.0-15.0); Lymphocyte # 0.71 X10^3/ul (4.0); Lymphocyte % 9.4 % (19-41); Mean Corpuscular Hgb 23.1 pg (27.0-32.0); Mean Corpuscular Volume 79.6 fL (81-99); Mean Platelet Vol. 9.3 fl (6.2-12.0); NRBC Flagged by Analyzer 0 % (0-5); Neutrophil # 5.78 X10^3/uL (2.7-7.7); Neutrophil % 76.7 % (47-70); Platelet Count 349 K/mm3 (150-450); RBC Distribution Width CV 17.6 % (11.6-14.6); RBC Distribution Width SD 51.4 fl (35.1-43.9); Red Blood Count 4.07 M/mm3 (4.2-5.4); White Blood Count 7.5 K/mm3 (4.4-11.0)
[2019-01-22 15:03] LABS: ALB/GLOB Ratio 1.1 RATIO (0.9-2.4); AST(SGOT) 12 U/L (15-37); Alanine Aminotransfer ALT/SGPT 25 U/L (13-56); Albumin, Serum 3.7 g/dL (3.2-5.0); Alkaline Phosphatase 110 U/L (45-117); Anion Gap 9 (5-15); BUN 14 mg/dL (7-18); BUN/Creat Ratio 20.5 RATIO (10-20); Calcium,Total 9.1 mg/dL (8.5-10.1); Chloride 109 mmol/L (98-107); Creatinine, Serum 0.68 mg/dL (0.55-1.02); EST Glomerular Filtration Rate 92 mL/min (>60); Est Glom Filt Rate - Afr Amer 112 mL/min (>60); Globulin 3.5 g/dL (2.2-4.2); Glucose 68 mg/dL (74-106); Potassium 3.7 mmol/L (3.5-5.1); Protein, Total 7.2 g/dL (6.4-8.2); Sodium Level 145 mmol/L (136-145)
[2019-01-25 10:00] LABS: Ferritin 10 ng/mL (8-252)
[2019-01-25 13:43] LABS: EBV Acute VCA IgM < 36.0 U/mL (0.0-35.9); EBV Early Antigen IgG 59.3 U/mL (0.0-8.9); EBV Nuclear Antigen IgG < 18.0 U/mL (0.0-17.9); EBV-VCA IgG 88.7 U/mL (0.0-17.9)
== END ==
PROVIDERS: Family Provider Family Medicine; PCP Family Medicine; Referring Provider Family Medicine; Visit Provider Family Medicine
DX: B34.9 Viral infection, unspecified (principal); D64.9 Anemia, unspecified
CPT/HCPCS: 36415; 80053; 82728; 85025; 86663; 86664; 86665

== ENCOUNTER → 2019-01-26 12:10 | Outpatient (CLI) | payer MEDICAID, SELFPAY ==
--- NOTE | 2019-01-26 12:13 | RAD_ITS ---
STUDY: X-RAY CHEST REASON FOR EXAM: Female, 63 years old. Mononucleosis, cough. TECHNIQUE: PA and lateral views of the chest. COMPARISON: PA and lateral chest x-ray June 27, 2015. FINDINGS: The lungs are clear and expanded. There is no demonstrated pleural abnormality. Normal size heart. Normal mediastinum and myriam. Normal visualized pulmonary arteries. Normal visualized aortic arch and descending thoracic aorta. There are mild multilevel degenerative changes of the visualized mid thoracic spine. There is a 11.5 degree dextroscoliosis of the thoracic spine at T11-12. Normal visualized ribs, clavicles, and shoulders. There is no demonstrated abnormality of the visualized soft tissue structures of the upper abdomen. RAD/Chest PA and Lateral IMPRESSION: No acute cardiopulmonary disease. Electronically Signed: Feliberto Flanagan MD at 19:56 EDT , Service support ,
== END ==
PROVIDERS: Family Provider Family Medicine; PCP Family Medicine; Referring Provider Family Medicine; Visit Provider Family Medicine
DX: B27.90 Infectious mononucleosis, unspecified without complication (principal)
CPT/HCPCS: 71046

== ENCOUNTER → 2019-02-02 16:44 | Outpatient (CLI) | payer MEDICAID, SELFPAY ==
[2019-02-02 17:40] LABS: Hematocrit 36.4 % (37-47); Hemoglobin 10.7 g/dL (12.0-15.0); Mean Corp Hgb Conc 29.4 g/dL (32-36); Mean Corpuscular Hgb 23.3 pg (27.0-32.0); Mean Corpuscular Volume 79.1 fL (81-99); Mean Platelet Vol. 9.2 fl (6.2-12.0); Platelet Count 387 K/mm3 (150-450); RBC Distribution Width CV 17.7 % (11.6-14.6); RBC Distribution Width SD 50.5 fl (35.1-43.9); White Blood Count 8.5 K/mm3 (4.4-11.0)
[2019-02-02 17:41] LABS: Absolute Lymphocyte Count 0.77 X10^3/uL (0.83-4.51); Absolute Neutrophil Count 6.6 X10^3/uL (2.0-7.7); Basophil% 0.6 % (0-1); Eosinophils% 0.7 % (0-5); Lymphocyte # 0.77 X10^3/ul (4.0); Lymphocyte % 9.1 % (19-41); Monocyte# 0.77 X10^3/uL; Monocyte% 9.1 % (0-10); Neutrophil # 6.64 X10^3/uL (2.7-7.7); Neutrophil % 78.1 % (47-70); POSITIVE COUNT NO; POSITIVE DIFFERENTIAL NO; POSITIVE MORPHOLOGY NO
[2019-02-02 17:42] LABS: Basophil# 0.05 X10^3/uL; Eosinophil# 0.06 X10^3/uL; Platelet Count 387 K/mm3 (150-450); RET-HE 26.7 pg (30-35)
[2019-02-02 17:56] LABS: Erythrocyte Sedimentation Rate 24 mm/hr (0-30)
[2019-02-02 17:57] LABS: Reticulocyte Count 1.69 % (0.5-1.5)
[2019-02-02 18:03] LABS: Vitamin B12 308 pg/mL (211-911); Vitamin D,25 Hydroxy 22.1 ng/mL (29.95-100.01)
[2019-02-02 18:04] LABS: AST(SGOT) 13 U/L (15-37); Alanine Aminotransfer ALT/SGPT 28 U/L (13-56); Albumin, Serum 3.5 g/dL (3.2-5.0); Alkaline Phosphatase 111 U/L (45-117); Anion Gap 9 (5-15); BUN 20 mg/dL (7-18); BUN/Creat Ratio 23.4 RATIO (10-20); CRP 3.49 mg/L (0.0-3.0); Calcium,Total 8.3 mg/dL (8.5-10.1); Chloride 109 mmol/L (98-107); Creatinine, Serum 0.86 mg/dL (0.55-1.02); EST Glomerular Filtration Rate 71 mL/min (>60); Est Glom Filt Rate - Afr Amer 86 mL/min (>60); Ferritin 7 ng/mL (8-252); Globulin 3.4 g/dL (2.2-4.2); Glucose 181 mg/dL (74-106); Iron 34 ug/dL (50-170); Iron Binding Capacity,Total 439 ug/dL (250-450); Potassium 3.8 mmol/L (3.5-5.1); Protein, Total 6.9 g/dL (6.4-8.2); Sodium Level 144 mmol/L (136-145); Thyroid Stim Hormone (TSH) 0.95 uIU/mL (0.358-3.74)
== END ==
PROVIDERS: Family Provider Family Medicine; PCP Family Medicine; Referring Provider Family Medicine; Visit Provider Family Medicine
DX: D64.9 Anemia, unspecified (principal); R53.83 Other fatigue
CPT/HCPCS: 36415; 80053; 82306; 82533; 82607; 82728; 83540; 83550; 84443; 85025; 85045; 85652; 86140

== ENCOUNTER → 2019-02-11 12:54 | Outpatient (CLI) | payer MEDICAID, SELFPAY ==
--- NOTE | 2019-02-11 12:57 | ECHOD_ITS ---
Reason For Study: Monoculeosis Left Ventricle Normal size and thickness. The estimated ejection fraction is 55 %. No evidence for diastolic dysfunction. No regional wall motion abnormalities noted. Right Ventricle Normal RV size. Normal systolic function. Atria Normal left atrium. Normal right atrium. No doppler evidence for ASD. Mitral Valve There is no mitral valve stenosis. Trivial mitral valve insufficiency. Tricuspid Valve There is no tricuspid stenosis. Trivial tricuspid valve insufficiency. Pulmonary artery systolic pressure is 25-30 mmHg. Aortic Valve Trisinus/trileaflet aortic valve. There is no aortic stenosis. No aortic valve insufficiency. Pulmonic Valve There is no pulmonic valvular stenosis. No pulmonic valve insufficiency. Great Vessels Normal aortic root. Pericardium/Pleural No pericardial effusion. Medication Negative bubble study on echo 05/06/14. MMode/2D Measurements & Calculations LVIDd: 3.5 cm IVSd: 1.0 cm Ao root diam: 3.2 cm LVIDs: 2.0 cm LVPWd: 0.83 cm RVDd: 3.4 cm FS: 43.0 % LAV(MOD-bp): 62.2 ml LA A4 area: 18.9 cm2 LA dimension(2D): 3.1 cm LAV(MOD-bp) Indexed: 29.7 ml/m2 LAV(MOD-sp2): 69.3 ml LAV(MOD-sp4): 55.4 ml RA A4 area: 12.4 cm2 Doppler Measurements & Calculations MV E max calvin: 87.6 cm/sec Lat Peak E' Calvin: 12.0 cm/sec Med Peak E' Calvin: 5.1 cm/sec MV A max calvin: 103.5 cm/sec E/E' lat: 7.3 E/E' med: 17.2 MV E/A: 0.85 Ao V2 max: 172.7 cm/sec LV V1 max: 126.8 cm/sec PA V2 max: 119.2 cm/sec Ao max P.9 mmHg LV V1 max P.4 mmHg TR max calvin: 247.6 cm/sec TR max P.5 mmHg Interpretation Summary The estimated ejection fraction is 55 %. No evidence for diastolic dysfunction. Trivial mitral valve insufficiency. Ordering Physician: Cayetano Sims Referring Physician: Cayetano Sims Performed By: Brit Staley RDCS
== END ==
PROVIDERS: Family Provider Family Medicine; PCP Family Medicine; Referring Provider Family Medicine; Visit Provider Family Medicine
DX: R07.9 Chest pain, unspecified (principal); B27.90 Infectious mononucleosis, unspecified without complication
CPT/HCPCS: 93306

== ENCOUNTER → 2019-10-19 15:35 | Outpatient (CLI) | payer MEDICAID, SELFPAY ==
[2019-10-19 18:26] LABS: Anion Gap 7 (5-15); BUN 16 mg/dL (7-18); BUN/Creat Ratio 20.6 RATIO (10-20); Chloride 106 mmol/L (98-107); Creatinine, Serum 0.78 mg/dL (0.55-1.02); EST Glomerular Filtration Rate 79 mL/min (>60); Est Glom Filt Rate - Afr Amer 96 mL/min (>60); Glucose 84 mg/dL (74-106); Potassium 3.7 mmol/L (3.5-5.1); Sodium Level 140 mmol/L (136-145)
== END ==
PROVIDERS: PCP Family Medicine; Referring Provider Obstetrics & Gynecology; Visit Provider Obstetrics & Gynecology
DX: C54.1 Malignant neoplasm of endometrium (principal); R10.2 Pelvic and perineal pain
CPT/HCPCS: 36415; 80048

== ENCOUNTER → 2019-11-16 13:59 | Outpatient (CLI) | payer MEDICAID, SELFPAY ==
--- NOTE | 2019-11-16 15:00 | PET_ITS ---
EXAMINATION: FDG PET-CT INDICATIONS: A 64-year-old female with reported history of endometrial carcinoma presenting for restaging examination. COMPARISON EXAMINATION: CT of the abdomen and pelvis report dated 10/26/2019 INDEX LESION SIZE SUV INTERPRETATION Left mid abdominal retroperitoneum soft tissue mass 24.5 x 24.4-mm (frame 112) 5.6 Fulfills quantitative criteria for viable neoplasm NON-INDEX LESION SIZE SUV INTERPRETATION Distal rectal vault, heterogeneous 26.8-mm (frame 37) 7.2 May necessitate direct visualization-digital examination if soft tissue mass formation expected TECHNIQUE: Following the intravenous administration of 12.4 mCi of F-18 deoxyglucose via the left antecubital fossa, multiplanar image acquisitions of the neck, chest, abdomen and pelvis to level of mid thigh, obtained at one hour post radiopharmaceutical administration contemporaneously interpreted with the current CT of the neck, chest, abdomen and pelvis, to level of mid thigh, dated 11/16/[address] of the abdomen and pelvis report dated 10/26/2019 reveals: BLOOD GLUCOSE LEVEL:?? 93 mg/dl?HEIGHT:?66 inches?WEIGHT: 234 lbs. FINDINGS: 1. An increase in glucose metabolism is defined in the left mid abdominal retroperitoneum, heterogeneous in presentation, generating a calculated maximal standard uptake value of 5.6. The maximal axial diameter of the corresponding metabolic, morphologic abnormality-soft tissue nodular density on review of CT of the abdomen dated 11/16/2019 is 24.5-mm (transverse) x 24.4-mm (AP). 2. Normal physiologic distribution of the radiopharmaceutical is apparent in the hepatic (2.3) and splenic parenchyma, both renal units, bladder and visualized intestinal tract. The visualized portion of the cerebral cortex demonstrate symmetric and preserved glucose metabolism. Diffuse radiopharmaceutical concentration is noted in all four quadrants of the abdomen and pelvis, most accentuated in the rectum-distal rectal vault registering a calculated maximal standard uptake value of 7.2. The maximal axial diameter of the metabolic abnormality on review of CT of the pelvis dated 11/16/2019 is 26.8-mm (AP). Review of CT of the abdomen and pelvis report dated 10/26/2019 accomplished with intravenous contrast defined no definitive radiographic-anatomic abnormalities in the analogous location. Prominent radiopharmaceutical concentration is observed in the oral cavity to the left of the midline associated with soft tissue musculature most consistent with physiologic tracer uptake. There is homogenous enhanced glucose concentration evidenced in the visualized appendicular and axial skeletal structures. Pertinent CT findings are as follows: CHEST: Bilateral subcentimeter axillary and scattered mediastinal soft tissue densities are non-glucose avid. There are no parenchymal densities-nodules defined in the right and left hemithorax with discernible increased FDG uptake. ABDOMEN AND PELVIS: There is borderline fatty metamorphosis-steatosis defined in the hepatic parenchyma. Cholelithiasis is demonstrated. There is atherosclerotic calcification defined in the abdominal aorta without evidence of dilatation-aneurysm formation. Bilateral fat containing inguinal hernias are noted. Right-left inguinal soft tissue densities with fatty hilus are ametabolic. Subtle cortical cyst formation is manifest within the left kidney. The uterus appears surgically absent. SKELETAL: Degenerative changes are noted in the cervical, thoracic and lumbar spine. A sclerotic density noted in the sixth thoracic vertebra reveals no evidence of facilitated FDG uptake. PET/PET/CT Tumor Base -Thigh Subs IMPRESSION: 1. ABNORMAL EXAMINATION INDICATIVE OF MALIGNANT-METASTATIC VIABLE NEOPLASM. 2. Increased glucose metabolism localized to the left mid abdominal retroperitoneum fulfills quantitative criteria for viable neoplasm. 3. Enhanced tracer uptake observed in the distal rectal vault is most consistent with physiologic tracer concentration. If intraluminal soft tissue mass formation is a diagnostic consideration, correlation with digital examination and/or direct visualization is recommended. (Dodanny et al, Journal of Nuclear Medicine, 30:S276, 2003). 4. Homogenous increased radiopharmaceutical concentration manifest throughout the visualized appendicular-axial skeletal structures, in the absence of chemotherapeutic intervention, is consistent with the pattern associated with hyperplasia of the hematopoietic marrow. (Papa, AJR 180:669, 2003). 5. Enhanced tracer distribution defined in the oral cavity without evidence of corresponding soft tissue is most consistent with physiologic tracer uptake. Clinical examination may be of benefit. Electronic Signature Gabriel Elizondo D.O. Accurate Quantification of SUVs for this report are calculated using the exclusive [place] and [place] patented [employer]? Technology. Electronically Signed: Gabriel Elizondo DO at 22:25 EDT Tel , Service support ,
== END ==
PROVIDERS: PCP Family Medicine; Referring Provider Obstetrics & Gynecology; Visit Provider Obstetrics & Gynecology
DX: C54.1 Malignant neoplasm of endometrium (principal); R10.2 Pelvic and perineal pain; Z92.3 Personal history of irradiation
CPT/HCPCS: 78815; A9552

== ENCOUNTER → 2019-12-28 13:24 | Outpatient (CLI) | payer MEDICAID, SELFPAY ==
[2019-12-28 16:08] LABS: Absolute Lymphocyte Count 0.53 X10^3/uL (0.83-4.51); Absolute Neutrophil Count 5.9 X10^3/uL (2.0-7.7); Basophil# 0.05 X10^3/uL; Basophil% 0.7 % (0-1); Eosinophil# 0.16 X10^3/uL; Eosinophils% 2.2 % (0-5); Hematocrit 38.5 % (37-47); Hemoglobin 11.9 g/dL (12.0-15.0); Lymphocyte # 0.53 X10^3/ul (4.0); Lymphocyte % 7.3 % (19-41); Mean Corp Hgb Conc 30.9 g/dL (32-36); Mean Corpuscular Hgb 25.4 pg (27.0-32.0); Mean Corpuscular Volume 82.1 fL (81-99); Mean Platelet Vol. 9.2 fl (6.2-12.0); Monocyte% 8.2 % (0-10); NRBC Flagged by Analyzer 0 % (0-5); Neutrophil # 5.92 X10^3/uL (2.7-7.7); Neutrophil % 81.3 % (47-70); POSITIVE DIFFERENTIAL YES; Platelet Count 346 K/mm3 (150-450); RBC Distribution Width CV 15.5 % (11.6-14.6); RBC Distribution Width SD 45.5 fl (35.1-43.9); Red Blood Count 4.69 M/mm3 (4.2-5.4); White Blood Count 7.3 K/mm3 (4.4-11.0)
[2019-12-28 16:39] LABS: Differential Indicated SCAN CRITERIA MET
== END ==
PROVIDERS: PCP Family Medicine; Referring Provider Obstetrics & Gynecology; Visit Provider Obstetrics & Gynecology
DX: C54.1 Malignant neoplasm of endometrium (principal)
CPT/HCPCS: 36415; 85025

== ENCOUNTER → 2020-02-08 12:56 | Outpatient (CLI) | payer MEDICAID, SELFPAY ==
[2020-02-08 15:06] LABS: Absolute Lymphocyte Count 0.58 X10^3/uL (0.83-4.51); Absolute Neutrophil Count 4.8 X10^3/uL (2.0-7.7); Basophil# 0.04 X10^3/uL; Basophil% 0.6 % (0-1); Eosinophil# 0.03 X10^3/uL; Eosinophils% 0.5 % (0-5); Hematocrit 38.5 % (37-47); Hemoglobin 11.5 g/dL (12.0-15.0); Lymphocyte # 0.58 X10^3/ul (4.0); Mean Corp Hgb Conc 29.9 g/dL (32-36); Mean Corpuscular Hgb 25.6 pg (27.0-32.0); Mean Corpuscular Volume 85.7 fL (81-99); Mean Platelet Vol. 8.8 fl (6.2-12.0); Monocyte# 0.85 X10^3/uL; Monocyte% 13.1 % (0-10); NRBC Flagged by Analyzer 0 % (0-5); Neutrophil # 4.79 X10^3/uL (2.7-7.7); POSITIVE DIFFERENTIAL YES; Platelet Count 281 K/mm3 (150-450); RBC Distribution Width CV 18.1 % (11.6-14.6); RBC Distribution Width SD 55.6 fl (35.1-43.9); Red Blood Count 4.49 M/mm3 (4.2-5.4); White Blood Count 6.5 K/mm3 (4.4-11.0)
[2020-02-08 15:08] LABS: Differential Indicated SCAN CRITERIA MET
[2020-02-08 15:17] LABS: AST(SGOT) 17 U/L (15-37); Alanine Aminotransfer ALT/SGPT 35 U/L (13-56); Albumin, Serum 3.6 g/dL (3.2-5.0); Alkaline Phosphatase 129 U/L (45-117); Anion Gap 4 (5-15); BUN 14 mg/dL (7-18); BUN/Creat Ratio 19.5 RATIO (10-20); Calcium,Total 8.9 mg/dL (8.5-10.1); Chloride 108 mmol/L (98-107); Creatinine, Serum 0.72 mg/dL (0.55-1.02); EST Glomerular Filtration Rate 87 mL/min (>60); Est Glom Filt Rate - Afr Amer 105 mL/min (>60); Globulin 3.6 g/dL (2.2-4.2); Glucose 117 mg/dL (74-106); Potassium 4.1 mmol/L (3.5-5.1); Protein, Total 7.2 g/dL (6.4-8.2); Sodium Level 141 mmol/L (136-145)
== END ==
PROVIDERS: PCP Family Medicine; Referring Provider Obstetrics & Gynecology; Visit Provider Obstetrics & Gynecology
DX: C54.1 Malignant neoplasm of endometrium (principal)
CPT/HCPCS: 36415; 80053; 85025

== ENCOUNTER → 2020-02-23 13:40 | Outpatient (CLI) | payer MEDICAID, SELFPAY | PROVIDERS: PCP Family Medicine; Referring Provider Family Medicine; Visit Provider Family Medicine | DX: Z20.828 Contact with and (suspected) exposure to other viral communicable diseases (principal) | CPT/HCPCS: 87635; U0003 ==

== ENCOUNTER 2020-02-28 12:54 | Outpatient (RCR) | payer MEDICAID, SELFPAY ==
[2020-02-28 15:18] LABS: Absolute Neutrophil Count 2.8 X10^3/uL (2.0-7.7); Basophil# 0.02 X10^3/uL; Basophil% 0.5 % (0-1); Eosinophil# 0.03 X10^3/uL; Eosinophils% 0.7 % (0-5); Hematocrit 35.1 % (37-47); Hemoglobin 10.8 g/dL (12.0-15.0); Lymphocyte % 11.7 % (19-41); Mean Corp Hgb Conc 30.8 g/dL (32-36); Mean Corpuscular Hgb 27.1 pg (27.0-32.0); Mean Platelet Vol. 8.7 fl (6.2-12.0); Monocyte# 0.77 X10^3/uL; Monocyte% 18.1 % (0-10); NRBC Flagged by Analyzer 0 % (0-5); Neutrophil # 2.78 X10^3/uL (2.7-7.7); Neutrophil % 65.2 % (47-70); POSITIVE DIFFERENTIAL YES; Platelet Count 241 K/mm3 (150-450); RBC Distribution Width CV 19.1 % (11.6-14.6); RBC Distribution Width SD 58.4 fl (35.1-43.9); Red Blood Count 3.99 M/mm3 (4.2-5.4); White Blood Count 4.3 K/mm3 (4.4-11.0)
[2020-02-28 15:36] LABS: AST(SGOT) 27 U/L (15-37); Alanine Aminotransfer ALT/SGPT 54 U/L (13-56); Albumin, Serum 3.7 g/dL (3.2-5.0); Alkaline Phosphatase 121 U/L (45-117); Anion Gap 5 (5-15); BUN 15 mg/dL (7-18); BUN/Creat Ratio 18.7 RATIO (10-20); Calcium,Total 9.5 mg/dL (8.5-10.1); Chloride 104 mmol/L (98-107); EST Glomerular Filtration Rate 76 mL/min (>60); Est Glom Filt Rate - Afr Amer 92 mL/min (>60); Globulin 3.6 g/dL (2.2-4.2); Glucose 101 mg/dL (74-106); Potassium 4.3 mmol/L (3.5-5.1); Protein, Total 7.3 g/dL (6.4-8.2); Sodium Level 138 mmol/L (136-145)
[2020-02-28 16:02] LABS: Differential Indicated SCAN CRITERIA MET
[2020-02-28 16:59] LABS: Anisocytosis RARE; Platelet Estimate ADEQUATE (ADEQ); Red Cell Morphology N CHROM NORMAL (NORM C&C)
[2020-02-29 14:06] LABS: Pathologist Review Reviewed
== END 2020-02-28 18:00 | disposition home or self-care (01) ==
LOC: MTLAB 12:54
PROVIDERS: PCP Family Medicine; Referring Provider Obstetrics & Gynecology; Visit Provider Obstetrics & Gynecology
DX: C54.1 Malignant neoplasm of endometrium (principal)
CPT/HCPCS: 36415; 80053; 85025

== ENCOUNTER 2020-03-21 10:33 | Outpatient (RCR) | payer MEDICAID, SELFPAY ==
[2020-03-21 12:33] LABS: Absolute Lymphocyte Count 0.61 X10^3/uL (0.83-4.51); Absolute Neutrophil Count 2.7 X10^3/uL (2.0-7.7); Basophil# 0.03 X10^3/uL; Basophil% 0.7 % (0-1); Eosinophil# 0.01 X10^3/uL; Eosinophils% 0.2 % (0-5); Hematocrit 36.5 % (37-47); Hemoglobin 11.3 g/dL (12.0-15.0); Lymphocyte # 0.61 X10^3/ul (4.0); Mean Corpuscular Hgb 28.1 pg (27.0-32.0); Mean Corpuscular Volume 90.8 fL (81-99); Mean Platelet Vol. 8.8 fl (6.2-12.0); Monocyte# 0.88 X10^3/uL; Monocyte% 20.2 % (0-10); NRBC Flagged by Analyzer 0 % (0-5); Neutrophil # 2.69 X10^3/uL (2.7-7.7); Neutrophil % 61.7 % (47-70); POSITIVE MORPHOLOGY YES; Platelet Count 208 K/mm3 (150-450); RBC Distribution Width CV 20.3 % (11.6-14.6); RBC Distribution Width SD 66.3 fl (35.1-43.9); Red Blood Count 4.02 M/mm3 (4.2-5.4); White Blood Count 4.4 K/mm3 (4.4-11.0)
[2020-03-21 12:35] LABS: Differential Indicated SCAN CRITERIA MET
[2020-03-21 12:58] LABS: AST(SGOT) 31 U/L (15-37); Alanine Aminotransfer ALT/SGPT 62 U/L (13-56); Albumin, Serum 3.7 g/dL (3.2-5.0); Alkaline Phosphatase 105 U/L (45-117); Anion Gap 7 (5-15); BUN 15 mg/dL (7-18); BUN/Creat Ratio 20.4 RATIO (10-20); Calcium,Total 9.3 mg/dL (8.5-10.1); Chloride 108 mmol/L (98-107); Creatinine, Serum 0.74 mg/dL (0.55-1.02); EST Glomerular Filtration Rate 84 mL/min (>60); Est Glom Filt Rate - Afr Amer 102 mL/min (>60); Globulin 3.8 g/dL (2.2-4.2); Glucose 128 mg/dL (74-106); Potassium 4.2 mmol/L (3.5-5.1); Protein, Total 7.5 g/dL (6.4-8.2); Sodium Level 139 mmol/L (136-145)
[2020-03-21 13:14] LABS: Anisocytosis 1+
== END 2020-03-21 18:00 | disposition home or self-care (01) ==
LOC: MTLAB 10:33
PROVIDERS: PCP Family Medicine; Referring Provider Obstetrics & Gynecology; Visit Provider Obstetrics & Gynecology
DX: C54.1 Malignant neoplasm of endometrium (principal)
CPT/HCPCS: 36415; 80053; 85025

== ENCOUNTER → 2020-05-25 13:21 | Outpatient (CLI) | payer MEDICAID, SELFPAY ==
[2020-05-25 15:55] LABS: BUN 18 mg/dL (7-18); Creatinine, Serum 0.75 mg/dL (0.55-1.02); EST Glomerular Filtration Rate 83 mL/min (>60); Est Glom Filt Rate - Afr Amer 100 mL/min (>60)
== END ==
PROVIDERS: PCP Family Medicine; Referring Provider Obstetrics & Gynecology; Visit Provider Obstetrics & Gynecology
DX: C54.1 Malignant neoplasm of endometrium (principal)
CPT/HCPCS: 36415; 82565; 84520

== ENCOUNTER 2020-07-19 13:22 | Outpatient (RCR) | payer MEDICAID, SELFPAY ==
[2020-06-28 15:30] LABS: Absolute Neutrophil Count 4.7 X10^3/uL (2.0-7.7); Basophil# 0.03 X10^3/uL; Basophil% 0.5 % (0-1); Eosinophil# 0.08 X10^3/uL; Eosinophils% 1.4 % (0-5); Hematocrit 35.5 % (37-47); Hemoglobin 11.9 g/dL (12.0-15.0); Lymphocyte % 8.4 % (19-41); Mean Corp Hgb Conc 33.5 g/dL (32-36); Mean Corpuscular Hgb 31.9 pg (27.0-32.0); Mean Corpuscular Volume 95.2 fL (81-99); Mean Platelet Vol. 9.6 fl (6.2-12.0); Monocyte# 0.51 X10^3/uL; Monocyte% 8.6 % (0-10); NRBC Flagged by Analyzer 0 % (0-5); Neutrophil # 4.74 X10^3/uL (2.7-7.7); Neutrophil % 80.1 % (47-70); POSITIVE DIFFERENTIAL YES; Platelet Count 246 K/mm3 (150-450); RBC Distribution Width CV 13.1 % (11.6-14.6); RBC Distribution Width SD 45.1 fl (35.1-43.9); Red Blood Count 3.73 M/mm3 (4.2-5.4); White Blood Count 5.9 K/mm3 (4.4-11.0)
[2020-06-28 15:41] LABS: ALB/GLOB Ratio 1.1 RATIO (0.9-2.4); AST(SGOT) 40 U/L (15-37); Alanine Aminotransfer ALT/SGPT 66 U/L (13-56); Albumin, Serum 3.6 g/dL (3.2-5.0); Alkaline Phosphatase 99 U/L (45-117); Anion Gap 8 (5-15); BUN 12 mg/dL (7-18); BUN/Creat Ratio 12.8 RATIO (10-20); Calcium,Total 8.7 mg/dL (8.5-10.1); Chloride 105 mmol/L (98-107); Creatinine, Serum 0.94 mg/dL (0.55-1.02); EST Glomerular Filtration Rate 64 mL/min (>60); Est Glom Filt Rate - Afr Amer 77 mL/min (>60); Globulin 3.2 g/dL (2.2-4.2); Glucose 191 mg/dL (74-106); Potassium 4.1 mmol/L (3.5-5.1); Protein, Total 6.8 g/dL (6.4-8.2); Sodium Level 138 mmol/L (136-145)
[2020-06-28 15:42] LABS: Differential Indicated SCAN CRITERIA MET
[2020-06-28 16:34] LABS: Differential Comment SCANNED
[2020-07-19 15:38] LABS: Absolute Lymphocyte Count 0.43 X10^3/uL (0.83-4.51); Absolute Neutrophil Count 3.3 X10^3/uL (2.0-7.7); Basophil# 0.06 X10^3/uL; Basophil% 1.3 % (0-1); Eosinophil# 0.04 X10^3/uL; Eosinophils% 0.9 % (0-5); Hematocrit 37.6 % (37-47); Lymphocyte # 0.43 X10^3/ul (4.0); Lymphocyte % 9.2 % (19-41); Mean Corp Hgb Conc 31.9 g/dL (32-36); Mean Corpuscular Hgb 31.3 pg (27.0-32.0); Mean Corpuscular Volume 97.9 fL (81-99); Mean Platelet Vol. 9.4 fl (6.2-12.0); Monocyte# 0.58 X10^3/uL; Monocyte% 12.5 % (0-10); NRBC Flagged by Analyzer 0.4 % (0-5); Neutrophil # 3.31 X10^3/uL (2.7-7.7); Neutrophil % 71.2 % (47-70); POSITIVE DIFFERENTIAL YES; Platelet Count 177 K/mm3 (150-450); RBC Distribution Width CV 13.9 % (11.6-14.6); RBC Distribution Width SD 48.4 fl (35.1-43.9); Red Blood Count 3.84 M/mm3 (4.2-5.4); White Blood Count 4.7 K/mm3 (4.4-11.0)
[2020-07-19 15:45] LABS: AST(SGOT) 37 U/L (15-37); Alanine Aminotransfer ALT/SGPT 77 U/L (13-56); Albumin, Serum 3.6 g/dL (3.2-5.0); Alkaline Phosphatase 116 U/L (45-117); Anion Gap 3 (5-15); BUN 14 mg/dL (7-18); BUN/Creat Ratio 16.3 RATIO (10-20); Calcium,Total 9.4 mg/dL (8.5-10.1); Chloride 105 mmol/L (98-107); Creatinine, Serum 0.86 mg/dL (0.55-1.02); EST Glomerular Filtration Rate 70 mL/min (>60); Est Glom Filt Rate - Afr Amer 85 mL/min (>60); Globulin 3.7 g/dL (2.2-4.2); Glucose 220 mg/dL (74-106); Protein, Total 7.3 g/dL (6.4-8.2); Sodium Level 138 mmol/L (136-145)
[2020-07-19 16:10] LABS: Differential Indicated SCAN CRITERIA MET
[2020-07-19 16:33] LABS: Differential Comment SCANNED
== END 2020-07-19 18:00 | disposition home or self-care (01) ==
LOC: MTLAB 13:22
PROVIDERS: PCP Family Medicine; Referring Provider Obstetrics & Gynecology; Visit Provider Obstetrics & Gynecology
DX: C54.1 Malignant neoplasm of endometrium (principal)
CPT/HCPCS: 36415; 80053; 85025

== ENCOUNTER 2020-08-09 13:08 | Outpatient (RCR) | payer MEDICAID, SELFPAY ==
[2020-08-09 15:10] LABS: Absolute Lymphocyte Count 0.48 X10^3/uL (0.83-4.51); Absolute Neutrophil Count 3.8 X10^3/uL (2.0-7.7); Basophil# 0.03 X10^3/uL; Basophil% 0.6 % (0-1); Eosinophil# 0.01 X10^3/uL; Eosinophils% 0.2 % (0-5); Hematocrit 36.3 % (37-47); Hemoglobin 11.8 g/dL (12.0-15.0); Lymphocyte # 0.48 X10^3/ul (0.83-4.51); Lymphocyte % 9.3 % (19-41); Mean Corp Hgb Conc 32.5 g/dL (32-36); Mean Corpuscular Hgb 31.4 pg (27.0-32.0); Mean Corpuscular Volume 96.5 fL (81-99); Mean Platelet Vol. 9.3 fl (6.2-12.0); Monocyte# 0.67 X10^3/uL; NRBC Flagged by Analyzer 0.4 % (0-5); Neutrophil # 3.84 X10^3/uL (2.7-7.7); Neutrophil % 74.4 % (47-70); POSITIVE DIFFERENTIAL YES; Platelet Count 181 K/mm3 (150-450); RBC Distribution Width CV 14.9 % (11.6-14.6); Red Blood Count 3.76 M/mm3 (4.2-5.4); White Blood Count 5.2 K/mm3 (4.4-11.0)
[2020-08-09 15:16] LABS: Differential Indicated SCAN CRITERIA MET
[2020-08-09 15:32] LABS: AST(SGOT) 52 U/L (15-37); Alanine Aminotransfer ALT/SGPT 91 U/L (13-56); Albumin, Serum 3.7 g/dL (3.2-5.0); Alkaline Phosphatase 112 U/L (45-117); Anion Gap 7 (5-15); BUN 13 mg/dL (7-18); BUN/Creat Ratio 14.3 RATIO (10-20); Calcium,Total 8.5 mg/dL (8.5-10.1); Chloride 106 mmol/L (98-107); Creatinine, Serum 0.91 mg/dL (0.55-1.02); EST Glomerular Filtration Rate 66 mL/min (>60); Est Glom Filt Rate - Afr Amer 80 mL/min (>60); Globulin 3.7 g/dL (2.2-4.2); Glucose 224 mg/dL (74-106); Potassium 3.9 mmol/L (3.5-5.1); Protein, Total 7.4 g/dL (6.4-8.2); Sodium Level 137 mmol/L (136-145)
== END 2020-08-09 18:00 | disposition home or self-care (01) ==
LOC: MTLAB 13:08
PROVIDERS: PCP Family Medicine; Referring Provider Obstetrics & Gynecology; Visit Provider Obstetrics & Gynecology
DX: C54.1 Malignant neoplasm of endometrium (principal)
CPT/HCPCS: 36415; 80053; 85025

== ENCOUNTER → 2020-10-13 11:15 | Outpatient (CLI) | payer MEDICARE, MEDICAID, SELFPAY ==
--- NOTE | 2020-10-13 11:22 | CT_ITS ---
STUDY: CTA CHEST REASON FOR EXAM: Female, 65 years old. FRANCIS, RECENT MEGACE, ENDOMETRIAL CA, EVAL FOR PE RADIATION DOSAGE (If Supplied By Facility): CTDIvol = ( 11.09 ) mGy, DLP = ( 500.88 ) mGycm TECHNIQUE: The examination was performed with the intravenous administration of IV 100mL Isovue-370. Post-processing of the angiographic images was performed, with multiplanar reformation and 3D reconstruction. Individualized dose optimization techniques were used for this CT. COMPARISON: None. FINDINGS: Normal enhancement of the main pulmonary artery and right and left pulmonary arteries. Normal enhancement of the bilateral peripheral pulmonary arteries. There is no demonstrated pulmonary embolism. Normal thoracic aorta and visualized great vessels. There is no demonstrated aortic dissection. Normal heart and pericardium. Normal mediastinum. Normal hilar regions. Normal visualized trachea and bronchi. The lungs are well expanded. Normal pulmonary parenchyma. Normal pleura. Normal chest wall structures. Mild hypertrophic changes in the dorsal spine. Normal visualized upper abdomen. CT/CTA Chest W/WO Contrast IMPRESSION: Normal CTA chest examination, without a demonstrated pulmonary embolism or arterial dissection. Electronically Signed: Chloe Caballero, at 12:33 EDT Tel , Service support ,
[2020-10-13 11:40] LABS: CREATININE FINGERSTICK 0.8 mg/dL (0.55-1.02); EGFR FINGERSTICK > 60.0000 mL/min (>60)
== END ==
PROVIDERS: PCP Family Medicine; Referring Provider Family Medicine; Visit Provider Family Medicine
DX: R06.02 Shortness of breath (principal)
CPT/HCPCS: 71275; Q9967; A4216

== ENCOUNTER → 2020-10-19 08:47 | Outpatient (CLI) | payer MEDICARE, MEDICAID, SELFPAY ==
[2020-10-19 10:31] LABS: Hemoglobin A1c 8.9 % (3.8-5.6)
== END ==
PROVIDERS: PCP Family Medicine; Referring Provider Obstetrics & Gynecology; Visit Provider Obstetrics & Gynecology
DX: R73.9 Hyperglycemia, unspecified (principal); C54.1 Malignant neoplasm of endometrium
CPT/HCPCS: 36415; 83036

== ENCOUNTER → 2020-10-30 09:31 | Outpatient (CLI) | payer MEDICARE, MEDICAID, SELFPAY ==
--- NOTE | 2020-10-31 13:10 | PFT ---
INTRODUCTION: The patient is a 65-year-old female that presents for pulmonary function studies secondary to a diagnosis of shortness of breath. Respiratory therapy reports good patient effort. Bronchodilators were used during testing. INTERPRETATION: Forced expiration spirometry demonstrates no evidence of a large airways obstructive ventilatory defect. There was a significant response to aerosolized bronchodilators noted. Spirograms are of good quality and plateau normally. Body plethysmography was performed and reveals lung volumes to be within normal limits. Diffusing capacity by single breath CO is also within normal limits. IMPRESSION: Subtle stigmata of small airways disease with significant bronchodilator response.
== END ==
PROVIDERS: PCP Family Medicine; Referring Provider Family Medicine; Visit Provider Family Medicine
DX: R06.02 Shortness of breath (principal)
CPT/HCPCS: 94060; 94726; 94729

== ENCOUNTER → 2020-11-17 12:57 | Outpatient (CLI) | payer MEDICARE, MEDICAID, SELFPAY ==
[2020-11-17 15:33] LABS: Thyroid Stim Hormone (TSH) 1.68 uIU/mL (0.358-3.74)
== END ==
PROVIDERS: PCP Family Medicine; Referring Provider Family Medicine; Visit Provider Family Medicine
DX: R53.83 Other fatigue (principal)
CPT/HCPCS: 36415; 84443

== ENCOUNTER → 2020-11-28 06:46 | Outpatient (CLI) | payer MEDICARE, MEDICAID, SELFPAY ==
--- NOTE | 2020-11-28 13:28 | STRESSREP_ITS ---
Stress Test Report Date: 11-28-2020 Procedure: Exercise tolerance test/imaging study Indications: Shortness of breath/dyspnea on exertion Consent: Per the patient Procedure: The patient exercised on a Mateo protocol for 2 minutes and 35-seconds not completing Stage I achieving a peak heart rate of 162 bpm (104% predicted maximal heart rate) with a peak blood pressure 220/82 mmHg and a peak MET capacity of 4 METs. The baseline ECG demonstrated normal sinus rhythm. The peak exercise ECG demonstrated somatic/motion artifact with no obvious ECG changes. There were no cardiac dysrhythmias pretest, during exercise, or recovery. The functional capacity was considered decreased. There was no complaint of chest discomfort during exercise or recovery. The examination was discontinued secondary to dyspnea and fatigue. Impression: 1. Technically adequate (percent predicted maximal heart rate greater than 85%) exercise tolerance test 2. Peak exercise ECG with somatic/motion artifact with no obvious ECG changes 3. There were no cardiac dysrhythmias pretest, during exercise, or recovery 4. Blood pressure response: Resting hypertension-exaggerated response 5. Functional capacity: Decreased 6. Nuclear images pending Myocardial perfusion imaging study: Technique: The patient was injected with 15.0 mCi of technetium 99m Cardiolite and jones bsequently rest SPECT Cardiolite nuclear imaging was obtained in the horizontal long, vertical long, and short axis views. The patient exercised on a Mateo protocol for 2 minutes and 35-seconds not completing Stage I achieving a peak heart rate of 162 bpm (104% predicted maximal heart rate) with a peak blood pressure 220/82 mmHg and a peak MET capacity of 4 METs. The patient was injected with 43.9 mCi of technetium 99m Cardiolite and subsequently stress SPECT Cardiolite nuclear imaging was obtained in the horizontal long, vertical long, and short axis views. A gated Cardiolite study at peak stress was obtained. Interpretation: Rest and stress SPECT Cardiolite nuclear imaging status post realignment, normalization, and attenuation correction, demonstrates at rest, especially in the short axis view, an element of diminished myocardial perfusion/tracer uptake in the mid anterior segments, which status post rest appears to improve/normalize. There is end systolic thickening and brightening. The gated Cardiolite study demonstrates myocardial thickening and inward wall motion. The reported LVEF is 68%. Impression: 1. Rest and stress SPECT Cardiolite nuclear imaging demonstrate at rest the appearance of an area of diminished myocardial perfusion/tracer uptake in the mid anterior segments, especially in the short axis views, which appears to improve and/or normalize following stress with no myocardial perfusion changes considered diagnostic for stress-induced myocardial ischemia. 2. The gated Cardiolite study reports an LVEF of 68%. This note was generated with [employer] software. It may contain incorrect words, spelling, and punctuation that were not noted in checking the note before signing.
== END ==
PROVIDERS: PCP Family Medicine; Referring Provider Family Medicine; Visit Provider Family Medicine
DX: R06.02 Shortness of breath (principal)
CPT/HCPCS: 78452; 93017; A9500

== ENCOUNTER 2020-12-09 01:57 | Emergency (ER) | payer MEDICARE, MEDICAID, SELFPAY ==
[2020-12-09 02:02] VITALS: BP 193/102; PULSE 94; RESP 96; TEMP 36.1; O2SAT 96; BMI 39.1
--- NOTE | 2020-12-09 02:13 | EDS_ITS ---
HPI HPI - GI History of Present Illness Chief Complaint: Abd Pain Informant: patient Abdominal Pain/Flank Pain Onset: Hours (7-8) Context: Gradual Onset (about 2 hrs after eating chicken) Timing: Continuous (not colicky) Quality: Aching Location: LLQ (radiating into left low back. no groin rad.) Current Severity: Severe Maximum Severity: Severe Worsened by: Nothing Relieved by: - (maybe a little better transiently after passing flatus; tried oxycodone, no help) Nausea/Vomiting/Emesis GI Symptom: Positive for Nausea; Negative for Vomiting Diarrhea/Melena/Hematochezia GI Symptom: Negative for Diarrhea, Melena and Hematochezia Associated Symptoms Associated Symptoms: Negative for Dysuria, Frequency, Hematuria and Urgency Narrative Narrative: Patient has been having severe left lower quadrant abdominal pain radiating into the flank/low back, started out mild and has been gradually worsening, constant not colicky. No history of kidney stones. Normal urination. Remote history of hysterectomy because of endometrial cancer. Other than C-sections, no other abdominal surgeries in the past and nothing recently. No recent injuries or illnesses. States she has had a colonoscopy in the past and was told everything was fine. Patient also has a history of endometrial cancer. This was not discovered until just prior to discharge, but she states that she just finished chemotherapy in September, and on exam a small mass was noticed by her vagina/urethra, it was biopsied and it is endometrial cancer, and she had a PET scan today Friday that she will follow-up and get the results of on Friday. [facility] Medical History CVA (cerebral vascular accident) Endometrial cancer Glaucoma Mini stroke Postmenopausal bleeding s/p radiation Home Medications aspirin 81 mg PO DAILY@0800 #100 tab.chew 05/06/14 [Rx Last Taken 12/18/17] brimonidine-timolol 1 drp RIGHT EYE BID 12/19/17 [History Last Taken 12/19/17] dicyclomine 10 mg capsule 10 mg PO .FOUR TIMES DAILY cap 09/21/18 [History Last Taken Unknown] gabapentin 100 mg capsule 300 mg PO TID PRN 09/21/18 [History Last Taken Unknown] pantoprazole 40 mg tablet,delayed release 40 mg PO DAILY #30 tab 09/21/18 [Rx L ast Taken Unknown] dicyclomine 20 mg PO .q4-6h PRN #20 capsule 12/09/20 [Rx Last Taken Unknown] metformin 500 mg PO BID 12/09/20 [History Last Taken Unknown] oxycodone 10 mg PO Q4H PRN 12/09/20 [History Last Taken Unknown] oxycodone-acetaminophen 1 tab PO Q6H PRN PRN 3 Days #12 tablet 12/09/20 [Rx Last Taken Unknown] Allergy/AdvReac Type Severity Reaction Status Date / Time morphine Allergy Anaphylaxis Verified 12/09/20 01:58 codeine AdvReac Upset Verified 12/09/20 01:58 Stomach Family History Father Colon cancer Heart disease Hypertension CVA (cerebral vascular accident) Mother Heart disease Hypertension Surgical History delivery delivered Hx of hysterectomy Hx of tonsillectomy Social History number of children: 4 current occupational status: employed 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 Smoking Status: Former smoker alcohol intake: current alcohol intake frequency: holidays/special occasions only substance use type: does not use what type of physical activity do you participate in: walking seatbelt use: always do you feel safe at home: Yes ROS ROS ED Constitutional Constitutional ED: Denies chills or fever(s) Eyes Eyes: Denies change in vision or diplopia ENT ENT ED: Denies rhinorrhea or sore throat Cardiovascular Cardiovascular: Denies chest pain or palpitations Respiratory/Chest Respiratory/Chest: Denies cough or dyspnea Gastrointestinal Gastrointestinal: Reports as per HPI, abdominal pain and nausea; Denies diarrhea or vomiting Genitourinary Genitourinary ED: Denies dysuria or hematuria Musculoskeletal Musculoskeletal: Reports back pain; Denies neck pain Integumentary Denies abscess or rash Neurologic Neurologic: Denies headache(s), paresthesias or weakness Psychiatric Psychiatric: Denies anxiety or suicidal thoughts EXAM Physical Exam Const Vital Signs: 12/09/20 02:02 Temperature 96.9 F L Temperature Source Temporal Pulse Rate 94 Respiratory Rate 96 H Blood Pressure 193/102 H Blood Pressure Mean 132 Pulse Ox 96 Positive well nourished, well developed and obese Constitutional Narrative: Uncomfortable, in pain, but in no distress General Appearance ED: well developed, NAD and non-toxic Nutritional Appearance: obese HEENT Reports moist mucous membranes normocephalic and atraumatic Eyes PERRL and EOMs intact bilaterally Neck full ROM and supple Resp normal respiratory effort and clear to auscultation bilaterally Cardio regular rate, regular rhythm and no murmurs GI non-distended GI Narrative: Tender in distal/lateral left lower quadrant without guarding or rebound tenderness, no other areas of tenderness. Soft, nondistended. Auscultation: normoactive bowel sounds Palpation: soft Back/Spine no CVA tenderness General Back: other FROM Extremity normal to inspection General Extremety ED: Negative for edema, pulses abnormal or tenderness General Extremity: Negative for edema or pulses abnormal Neuro oriented x3, CN's II-XII intact bilaterally and no sensory deficits noted Sensorium / Orientation: awake and alert Motor Exam: strength 5/5 throughout Skin no rashes or lesions noted and no wounds MDM MDM Lab Data Attestation: I reviewed the patient's lab results. Lab results narrative: Work-up really is unremarkable. The CT is normal except for an incidental gallstone, but I reexamined her she is nontender in her right upper quadrant, this certainly does not explain the left lower quadrant pain. I palpated her pelvis which is nontender, and when I asked about the presence of ovaries she states they were both removed. Her pain is more lateral to this. The radiologist reports that the colon is normal, as is the small bowel. This rules out small bowel obstruction, large bowel obstruction, diverticulitis, perforation, and there was no free fluid seen in the abdomen to suggest intra- abdominal bleeding or something that ruptured. She is concerned about recurren ce of cancer which I certainly understand, but I am unable to rule in or out with testing to have available in the emergency department. I suggest that she follow-up with her doctor regarding the PET scan that was performed today which possibly could give her some more insight. She is nontender up by the spleen, nontender in the CVA near the kidney, and she has no rebound tenderness. Her pain is better after treatment here in the emergency department. Differential still includes kidney stone that she passed, colonic spasm with or without constipation, other bowel pain that may or may not be related to her cancer. Since I see nothing dangerous here I feel it is appropriate to discharge her with close outpatient follow-up. We spent quite a bit of time discussing all of this because she was concerned that I did not have an answer for her. She presents an overnight shift when there are no other appropriate imaging modalities available such as MRI, PET, ultrasound. Since she already had the PET scan, which does not appear to have been performed here, I recommend supportive care with dicyclomine in case this is functional bowel pain and oxycodone, and following up. Labs: Laboratory Results - last 24 hr 12/09/20 12/09/20 02:10 02:10 WBC 9.0 RBC 3.95 L Hgb 12.4 Hct 38.0 MCV 96.2 MCH 31.4 MCHC 32.6 RDW Std Deviation 43.8 RDW Coeff of Kavita 12.4 Plt Count 247 MPV 8.9 Immature Gran % (Auto) 2.500 H Neut % (Auto) 85.5 H Lymph % (Auto) 5.9 L [place] % (Auto) 5.6 Eos % (Auto) 0.1 Baso % (Auto) 0.4 Absolute Neuts (auto) 7.7 Absolute Lymphs (auto) 0.53 L Nucleated RBC % 0 Differential Comment SCANNED Sodium 135 L Potassium 3.9 Chloride 100 Carbon Dioxide 23.0 Anion Gap 12 BUN 21 H Creatinine 0.92 Estim Creat Clear Calc 57.07 Est GFR (MDRD) Af Amer 79 Est GFR (MDRD) Non-Af 65 BUN/Creatinine Ratio 22.9 H Glucose 213 H Calcium 9.0 Radiography Diagnostic Testing: Radiology Impression Abdomen/Pelvis CT 12/09/20 02:58 IMPRESSION: No acute abnormal finding in the abdomen or pelvis. No finding to explain left lower quadrant pain. Electronically Signed: Jean Uribe MD at 3:21 EDT Tel , Service support , Discharge Plan Triage Chief Complaint: Abd Pain ED Provider: Praful Zambrano Dx/Rx/DC Orders Clinical Impression: Abdominal pain, acute, left lower quadrant Instructions: Abdominal Pain Prescriptions: New dicyclomine 10 MG capsule 20 mg PO .q4-6h PRN (Reason: abdominal discomfort) Qty: 20 RF: 0 oxycodone-acetaminophen [oxycodone-acetaminophen] 1 TABLET tablet 1 tab PO Q6H PRN PRN (Reason: Pain) 3 Days Qty: 12 RF: 0 No Action dicyclomine 10 mg capsule 10 mg PO .FOUR TIMES DAILY RF: 0 gabapentin 100 mg capsule 300 mg PO TID PRN (Reason: Pain) RF: 0 pantoprazole 40 mg tablet,delayed release (DR/EC) 40 mg PO DAILY Qty: 30 RF: 2 aspirin 81 MG tablet,chewable 81 mg PO DAILY@0800 Qty: 100 RF: 0 brimonidine-timolol 1 DROP bottle 1 drp RIGHT EYE BID RF: 0 metformin 500 mg tablet extended release 24 hr 500 mg PO BID RF: 0 oxycodone 10 mg Tablet 10 mg PO Q4H PRN (Reason: Pain) RF: 0 Primary Care Provider: Alek Hernandez Referrals: Alek Hernandez MD [Primary Care Provider] - Keep Benigno appointment (And/or your oncologist Friday as scheduled) Activity Restrictions/Additional Instructions: Consider a stool softener such as MiraLAX to ensure that you are having easy bowel movements. Disposition Disposition: Home, Self Care
[2020-12-09] MEDS: Ketorolac 15 MG/ML Vial IV (02:20)
[2020-12-09] MEDS: Ondansetron 4 MG/2 ML Vial IV (02:20)
[2020-12-09] MEDS: fentaNYL 100 MCG/2 ML Ampul 75 MCG IV (02:20)
[2020-12-09] MEDS: 0.9% Normal Saline 1,000 ML 1000 ML IV (02:20)
[2020-12-09 02:21] LABS: Absolute Lymphocyte Count 0.53 X10^3/uL (0.83-4.51); Absolute Neutrophil Count 7.7 X10^3/uL (2.0-7.7); Basophil# 0.04 X10^3/uL; Basophil% 0.4 % (0-1); Eosinophil# 0.01 X10^3/uL; Eosinophils% 0.1 % (0-5); Hemoglobin 12.4 g/dL (12.0-15.0); Lymphocyte # 0.53 X10^3/ul (0.83-4.51); Lymphocyte % 5.9 % (19-41); Mean Corp Hgb Conc 32.6 g/dL (32-36); Mean Corpuscular Hgb 31.4 pg (27.0-32.0); Mean Corpuscular Volume 96.2 fL (81-99); Mean Platelet Vol. 8.9 fl (6.2-12.0); Monocyte# 0.51 X10^3/uL; Monocyte% 5.6 % (0-10); NRBC Flagged by Analyzer 0 % (0-5); Neutrophil # 7.71 X10^3/uL (2.7-7.7); Neutrophil % 85.5 % (47-70); POSITIVE DIFFERENTIAL YES; Platelet Count 247 K/mm3 (150-450); RBC Distribution Width CV 12.4 % (11.6-14.6); RBC Distribution Width SD 43.8 fl (35.1-43.9); Red Blood Count 3.95 M/mm3 (4.2-5.4)
[2020-12-09 02:23] LABS: Differential Indicated SCAN CRITERIA MET
--- NOTE | 2020-12-09 02:58 | CT_ITS ---
STUDY: CT ABDOMEN AND PELVIS WITH CONTRAST REASON FOR EXAM: Female, 65 years old. llq pain RADIATION DOSAGE (If Supplied By Facility): CTDIvol = ( 18.04 ) mGy, DLP = ( 1241.89 ) mGycm TECHNIQUE: Transaxial images were obtained from the dome of the diaphragm to the symphysis pubis without oral contrast. IV 100mL Isovue-370 was administered. Sagittal and coronal images were reconstructed. Individualized dose optimization techniques were used for this CT. COMPARISON: 10/13/2020 FINDINGS: The visualized lung bases are unremarkable. The visualized portions of the heart are within normal limits. There is decreased attenuation of the liver consistent with steatosis. There is a solitary gallstone. Normal caliber common bile vessels. Normal spleen. Normal pancreas. Normal bilateral adrenal glands. Normal right kidney. Normal left kidney. Normal visualized stomach. Normal small intestine. Normal colon. There is non-visualization of the appendix. No inflammatory change of the cecum. Normal abdominal aorta. Normal inferior vena cava. Normal retroperitoneum. Normal urinary bladder. There is absence of the uterus consistent with a prior hysterectomy. Normal abdominal wall. There are diffuse degenerative changes of the visualized lumbar spine. CT/Abdomen/Pelvis W IV Cont ONLY IMPRESSION: No acute abnormal finding in the abdomen or pelvis. No finding to explain left lower quadrant pain. Electronically Signed: Jean Uribe MD at 3:21 EDT Tel , Service support ,
[2020-12-09 03:13] LABS: Differential Comment SCANNED
[2020-12-09 03:34] LABS: Bacteria 0 SEEN /hpf (None Seen); Mucous, Urine 0 SEEN /hpf (<or=2+)
[2020-12-09 03:35] LABS: Color, Urine Yellow (Yellow); Glucose, Dipstick 100 mg/dl (Normal); Ketone-Dipstick 15 mg/dl (Negative); Leukocyte Esterase-Dipstick 100 /ul (Negative); Nitrite-Dipstick Negative (Negative); Occult Blood-Urine 10 /ul (Negative); Protein-Dipstick 30 mg/dl (Negative); Urine Bilirubin Dipstick Negative (Negative); Urine Clarity Clear (Clear); Urine Urobilinogen Normal (Normal)
[2020-12-09 04:03] LABS: Anion Gap 12 (5-15); BUN 21 mg/dL (7-18); BUN/Creat Ratio 22.9 RATIO (10-20); Chloride 100 mmol/L (98-107); Creatinine, Serum 0.92 mg/dL (0.55-1.02); EST Glomerular Filtration Rate 65 mL/min (>60); Est Glom Filt Rate - Afr Amer 79 mL/min (>60); Estimated Creatinine Clearance 57.07 ml/min; Glucose 213 mg/dL (74-106); Potassium 3.9 mmol/L (3.5-5.1); Sodium Level 135 mmol/L (136-145)
[2020-12-09] MEDS: Dicyclomine 10 MG Capsule 20 MG PO (04:23)
[2020-12-09] MEDS: oxyCODONE 5 MG Tablet PO (04:23)
[2020-12-09 04:25] LABS: Red Blood Cells-Urine 0-5 SEEN /hpf (0-5); Squamous Epithelial Cells - UA 0-5 SEEN /hpf (5-10); White Blood Cells 10-25 SEEN /hpf (0-5)
[2020-12-09 04:36] VITALS: BP 142/94; PULSE 62; RESP 16; O2SAT 100
[2020-12-11 12:58] LABS: Pathologist Review Reviewed
== END 2020-12-09 04:37 | disposition home or self-care (01) ==
PROVIDERS: Emergency Provider Emergency Medicine; PCP Family Medicine
DX: R10.32 Left lower quadrant pain (principal); H40.9 Unspecified glaucoma; Z79.82 Long term (current) use of aspirin; Z79.84 Long term (current) use of oral hypoglycemic drugs; Z87.891 Personal history of nicotine dependence; Z90.710 Acquired absence of both cervix and uterus
CPT/HCPCS: 74177; 80048; 81001; 85025; 96361; 96374; 96375; 99284; J7030; Q9967; A4216; J2405

== ENCOUNTER → 2020-12-11 17:50 | Outpatient (CLI) | payer MEDICARE, MEDICAID, SELFPAY | PROVIDERS: PCP Family Medicine; Referring Provider Family Medicine; Visit Provider Family Medicine | DX: R10.9 Unspecified abdominal pain (principal) | CPT/HCPCS: 87086; 87088 ==

== ENCOUNTER 2020-12-28 23:10 | Emergency (ER) | payer MEDICARE, MEDICAID, SELFPAY ==
[2020-12-28 23:11] VITALS: BP 177/108; PULSE 96; RESP 17; TEMP 35.7; O2SAT 96; BMI 39.9
[2020-12-28 23:13] VITALS: BP 177/108; PULSE 96; RESP 17; TEMP 35.7; O2SAT 96
--- NOTE | 2020-12-29 00:14 | CT_ITS ---
STUDY: CT ABDOMEN AND PELVIS WITH CONTRAST REASON FOR EXAM: Female, 65 years old. llq pain RADIATION DOSAGE (If Supplied By Facility): CTDIvol = ( 21.89 ) mGy, DLP = ( 1292.86 ) mGycm TECHNIQUE: Transaxial images were obtained from the dome of the diaphragm to the symphysis pubis without oral contrast. IV 100mL Isovue-370 was administered. Sagittal and coronal images were reconstructed. Individualized dose optimization techniques were used for this CT. COMPARISON: 12/09/2020 FINDINGS: The visualized lung bases are unremarkable. The visualized portions of the heart are within normal limits. There is decreased attenuation of the liver consistent with steatosis. There is a solitary gallstone. Normal spleen. Normal pancreas. Normal bilateral adrenal glands. Normal right kidney. Normal left kidney. Normal visualized stomach. Normal small intestine. Normal colon. There is non-visualization of the appendix. There is diffuse atherosclerotic calcification of the abdominal aorta, without a demonstrated aneurysm. Normal inferior vena cava. Normal retroperitoneum. Normal urinary bladder. There is absence of the uterus consistent with a prior hysterectomy. Normal abdominal wall. There are diffuse degenerative changes of the visualized lumbar spine. CT/Abdomen/Pelvis W IV Cont ONLY IMPRESSION: No acute abnormal finding. No finding to explain left lower quadrant pain. Electronically Signed: Jean Uribe MD at 2:04 EDT Tel , Service support ,
--- NOTE | 2020-12-29 00:15 | EDS_ITS ---
HPI HPI - GI History of Present Illness Chief Complaint: Abd Pain Narrative Narrative: 65-year-old female presenting with left lower quadrant abdominal pain. She states she had diarrhea yesterday and this morning however the diarrhea has cleared up and now she is having left lower quadrant pain. She denies black or bloody stool. She has nausea but states she has not vomited. This feels similar to her previous presentation where she had lab work and imaging which was normal. She states she took a Percocet at home without relief of her pain. Patient denies any urinary complaints. She states that one physician told her she has a history of diverticulitis and another one told her that she did not. [facility] Medical History CVA (cerebral vascular accident) Endometrial cancer Glaucoma Mini stroke Postmenopausal bleeding s/p radiation Home Medications aspirin 81 mg PO DAILY@0800 #100 tab.chew 05/06/14 [Rx Last Taken 12/18/17] brimonidine-timolol 1 drp RIGHT EYE BID 12/19/17 [History Last Taken 12/19/17] dicyclomine 10 mg capsule 10 mg PO .FOUR TIMES DAILY cap 09/21/18 [History Last Taken Unknown] gabapentin 100 mg capsule 300 mg PO TID PRN 09/21/18 [History Last Taken Unknown] pantoprazole 40 mg tablet,delayed release 40 mg PO DAILY #30 tab 09/21/18 [Rx Last Taken Unknown] dicyclomine 20 mg PO .q4-6h PRN #20 capsule 12/09/20 [Rx Last Taken Unknown] metformin 500 mg PO BID 12/09/20 [History Last Taken Unknown] oxycodone 10 mg PO Q4H PRN 12/09/20 [History Last Taken Unknown] oxycodone-acetaminophen 1 tab PO Q6H PRN PRN 3 Days #12 tablet 12/09/20 [Rx Last Taken Unknown] cefpodoxime 200 mg PO Q12H 14 Days #28 tab 12/29/20 [Rx Last Taken Unknown] ondansetron 4 mg PO Q8H PRN PRN #14 tab 12/29/20 [Rx Last Taken Unknown] oxycodone-acetaminophen [Percocet] 1 tab PO Q6H PRN 3 Days #12 tab 12/29/20 [Rx Last Taken Unknown] Allergy/AdvReac Type Severity Reaction Status Date / Time morphine Allergy Anaphylaxis Verified 12/28/20 23:10 codeine AdvReac Upset Verified 12/28/20 23:10 Stomach Family History Father Colon cancer Heart disease Hypertension CVA (cerebral vascular accident) Mother Heart disease Hypertension Surgical History delivery delivered Hx of hysterectomy Hx of tonsillectomy Social History number of children: 4 current occupational status: employed 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 Smoking Status: Former smoker alcohol intake: current alcohol intake frequency: holidays/special occasions only substance use type: does not use what type of physical activity do you participate in: walking seatbelt use: always do you feel safe at home: Yes ROS ROS ED Constitutional Constitutional ED: Denies chills or fever(s) ENT ENT ED: Denies rhinorrhea or sore throat Cardiovascular Cardiovascular: Denies chest pain or palpitations Respiratory/Chest Respiratory/Chest: Denies cough or dyspnea Gastrointestinal Gastrointestinal: Reports abdominal pain, diarrhea and nausea Genitourinary Genitourinary ED: Denies dysuria or hematuria Musculoskeletal Musculoskeletal: Denies arthralgias, back pain, myalgias or neck pain Integumentary Denies Abrasions or rash Neurologic Neurologic: Denies headache(s) or paresthesias EXAM Physical Exam Const Vital Signs: 12/28/20 23:11 12/28/20 23:13 12/29/20 01:31 Temperature 96.2 F L 96.2 F L Temperature Source Temporal Temporal Pulse Rate 96 96 Respiratory Rate 17 17 16 Blood Pressure 177/108 H 177/108 H Blood Pressure Mean 131 131 Pulse Ox 96 96 Oxygen Delivery Method Room Air Room Air Room Air 12/29/20 01:43 12/29/20 03:21 Temperature Temperature Source Pulse Rate 86 Respiratory Rate 20 H Blood Pressure 181/94 H 188/94 H Blood Pressure Mean 123 125 Pulse Ox Oxygen Delivery Method Room Air Positive well nourished General Appearance ED: NAD; Negative for pallor HEENT Reports moist mucous membranes normocephalic and atraumatic Eyes PERRL and EOMs intact bilaterally General Eye ED: Negative for pale conjunctiva or scleral icterus Resp normal respiratory effort and clear to auscultation bilaterally Cardio regular rate and regular rhythm GI Palpation: tender LLQ Back/Spine General Back: CVA tenderness left Extremity full ROM General Extremety ED: Negative for edema General Extremity: Negative for edema Neuro CN's II-XII intact bilaterally Sensorium / Orientation: alert, oriented to person, oriented to place and oriented to time Psych mental status grossly normal and thought process normal Skin General Skin Exam: Negative for jaundice or pallor Rashes: no rashes MDM MDM MDM Narrative Medical decision making narrative: Patient presented with left lower quadrant abdominal pain which is similar to her previous presentation. She is given fentanyl and initially had no response to it. Afterwards it did improve after her third dose. CBC and CMP are unremarkable. Urinalysis is positive for infection. Given the location of her symptoms I think she likely has pyelonephritis. She does have CVA tenderness. Urine was sent for culture. She is given Rocephin. It was difficult to control her pain with the fentanyl. She does not know any other medication she can take and does not tolerate codeine or morphine. I did give her Dilaudid which she did not seem to have an allergic reaction to. She was given a second dose of this as well. After patient received IV antibiotics believe she is safe to be discharged home. I will provide her with prescription for Percocet and give her some Zofran as well. She is put on antibiotics for home. She is given return precautions. Impression: 1. Pyelonephritis Lab Data Labs: Laboratory Results - last 24 hr 12/29/20 12/29/20 12/29/20 00:05 00:50 00:50 WBC 7.7 RBC 3.75 L Hgb 11.7 L Hct 35.1 L MCV 93.6 MCH 31.2 MCHC 33.3 RDW Std Deviation 43.0 RDW Coeff of Kavita 12.5 Plt Count 218 MPV 8.9 Immature Gran % (Auto) 1.700 H Neut % (Auto) 84.3 H Lymph % (Auto) 4.2 L [place] % (Auto) 9.1 Eos % (Auto) 0.4 Baso % (Auto) 0.3 Absolute Neuts (auto) 6.5 Absolute Lymphs (auto) 0.32 L Nucleated RBC % 0 Sodium 138 Potassium 3.9 Chloride 109 H Carbon Dioxide 21.0 Anion Gap 8 BUN 9 Creatinine 0.72 Estim Creat Clear Calc 72.92 Est GFR (MDRD) Af Amer 105 Est GFR (MDRD) Non-Af 87 BUN/Creatinine Ratio 12.5 Glucose 158 H Calcium 8.5 Total Bilirubin 0.40 AST 27 ALT 45 Alkaline Phosphatase 78 Total Protein 6.8 Albumin 3.2 Globulin 3.6 Albumin/Globulin Ratio 0.9 Urine Color SEE COMMENT BELOW Urine Clarity Clear Urine pH 5.0 Ur Specific [place] 1.025 Urine Protein 30 H Urine Glucose (UA) Normal Urine Ketones Negative Urine Occult Blood 10 H Urine Nitrite Positive H Urine Bilirubin 3 H Urine Urobilinogen 4 H Ur Leukocyte Esterase 500 H Urine RBC 0-5 SEEN Urine WBC 10-25 SEEN Ur Squamous Epith Cells 10-25 SEEN Ur Transition Epith Cell 0-5 SEEN Urine Bacteria 2+ Urine Mucus 0 SEEN Radiography Diagnostic Testing: Radiology Impression Abdomen/Pelvis CT 12/29/20 00:14 IMPRESSION: No acute abnormal finding. No finding to explain left lower quadrant pain. Electronically Signed: Jean Uribe MD at 2:04 EDT Tel , Service support , Discharge Plan Triage Chief Complaint: Abd Pain ED Provider: Shorty Guzman Dx/Rx/DC Orders Instructions: ED Pyelonephritis, Female (Adult) Prescriptions: New cefpodoxime 200 mg tablet 200 mg PO Q12H 14 Days Qty: 28 RF: 0 ondansetron 4 mg tablet,disintegrating 4 mg PO Q8H PRN PRN (Reason: Nausea) Qty: 14 RF: 0 oxycodone-acetaminophen [Percocet] 5-325 mg tablet 1 tab PO Q6H PRN (Reason: pain) 3 Days Qty: 12 RF: 0 No Action dicyclomine 10 mg capsule 10 mg PO .FOUR TIMES DAILY RF: 0 gabapentin 100 mg capsule 300 mg PO TID PRN (Reason: Pain) RF: 0 pantoprazole 40 mg tablet,delayed release (DR/EC) 40 mg PO DAILY Qty: 30 RF: 2 aspirin 81 MG tablet,chewable 81 mg PO DAILY@0800 Qty: 100 RF: 0 brimonidine-timolol 1 DROP bottle 1 drp RIGHT EYE BID RF: 0 metformin 500 mg tablet extended release 24 hr 500 mg PO BID RF: 0 oxycodone 10 mg Tablet 10 mg PO Q4H PRN (Reason: Pain) RF: 0 dicyclomine 10 MG capsule 20 mg PO .q4-6h PRN (Reason: abdominal discomfort) Qty: 20 RF: 0 oxycodone-acetaminophen [oxycodone-acetaminophen] 1 TABLET tablet 1 tab PO Q6H PRN PRN (Reason: Pain) 3 Days Qty: 12 RF: 0 Primary Care Provider: Alek Hernandez Referrals: Alek Hernandez MD [Primary Care Provider] - Disposition Disposition: Home, Self Care
[2020-12-29 00:22] LABS: Mucous, Urine 0 SEEN /hpf (<or=2+)
[2020-12-29 00:23] LABS: Glucose, Dipstick Normal (Normal); Ketone-Dipstick Negative (Negative); Leukocyte Esterase-Dipstick 500 /ul (Negative); Nitrite-Dipstick Positive (Negative); Occult Blood-Urine 10 /ul (Negative); Protein-Dipstick 30 mg/dl (Negative); Specific Gravity, Urine 1.025 (1.002-1.030); Urine Clarity Clear (Clear); Urine Urobilinogen 4 mg/dl (Normal)
[2020-12-29 00:24] LABS: Color, Urine SEE COMMENT BELOW (Yellow); Urine Bilirubin Dipstick 3 mg/dL (Negative)
[2020-12-29 00:32] LABS: Bacteria 2+ /hpf (None Seen); Red Blood Cells-Urine 0-5 SEEN /hpf (0-5); Squamous Epithelial Cells - UA 10-25 SEEN /hpf (5-10); Transitional Epithelial - Ur 0-5 SEEN /hpf (0-5); White Blood Cells 10-25 SEEN /hpf (0-5)
[2020-12-29] MEDS: fentaNYL 100 MCG/2 ML Ampul 25 MCG IV ×2 (00:35→01:42)
[2020-12-29] MEDS: 0.9% Normal Saline 1,000 ML 1000 ML IV (00:35)
[2020-12-29] MEDS: Ondansetron 4 MG/2 ML Vial IV (00:35)
[2020-12-29 00:57] LABS: Absolute Lymphocyte Count 0.32 X10^3/uL (0.83-4.51); Absolute Neutrophil Count 6.5 X10^3/uL (2.0-7.7); Basophil# 0.02 X10^3/uL; Basophil% 0.3 % (0-1); Eosinophil# 0.03 X10^3/uL; Eosinophils% 0.4 % (0-5); Hematocrit 35.1 % (37-47); Hemoglobin 11.7 g/dL (12.0-15.0); Lymphocyte # 0.32 X10^3/ul (0.83-4.51); Lymphocyte % 4.2 % (19-41); Mean Corp Hgb Conc 33.3 g/dL (32-36); Mean Corpuscular Hgb 31.2 pg (27.0-32.0); Mean Corpuscular Volume 93.6 fL (81-99); Mean Platelet Vol. 8.9 fl (6.2-12.0); Monocyte% 9.1 % (0-10); NRBC Flagged by Analyzer 0 % (0-5); Neutrophil # 6.47 X10^3/uL (2.7-7.7); Neutrophil % 84.3 % (47-70); POSITIVE DIFFERENTIAL YES; Platelet Count 218 K/mm3 (150-450); RBC Distribution Width CV 12.5 % (11.6-14.6); Red Blood Count 3.75 M/mm3 (4.2-5.4); White Blood Count 7.7 K/mm3 (4.4-11.0)
[2020-12-29 01:13] LABS: Differential Indicated SCAN CRITERIA MET
[2020-12-29 01:21] LABS: ALB/GLOB Ratio 0.9 RATIO (0.9-2.4); AST(SGOT) 27 U/L (15-37); Alanine Aminotransfer ALT/SGPT 45 U/L (13-56); Albumin, Serum 3.2 g/dL (3.2-5.0); Alkaline Phosphatase 78 U/L (45-117); Anion Gap 8 (5-15); BUN 9 mg/dL (7-18); BUN/Creat Ratio 12.5 RATIO (10-20); Calcium,Total 8.5 mg/dL (8.5-10.1); Chloride 109 mmol/L (98-107); Creatinine, Serum 0.72 mg/dL (0.55-1.02); EST Glomerular Filtration Rate 87 mL/min (>60); Est Glom Filt Rate - Afr Amer 105 mL/min (>60); Estimated Creatinine Clearance 72.92 ml/min; Globulin 3.6 g/dL (2.2-4.2); Glucose 158 mg/dL (74-106); Potassium 3.9 mmol/L (3.5-5.1); Protein, Total 6.8 g/dL (6.4-8.2); Sodium Level 138 mmol/L (136-145)
[2020-12-29 01:31] VITALS: RESP 16
[2020-12-29 01:43] VITALS: BP 181/94
[2020-12-29 03:21] VITALS: BP 188/94; PULSE 86; RESP 20
[2020-12-29] MEDS: fentaNYL 100 MCG/2 ML Ampul 50 MCG IV (03:21)
[2020-12-29] MEDS: HYDROmorphone 0.5 MG/0.5 ML SYRINGE IV (05:43)
[2020-12-29] MEDS: Ceftriaxone 1 GM/50 ML BAG IV (05:46)
[2020-12-29] MEDS: HYDROmorphone 1 MG/ML Syringe IV (06:48)
[2020-12-29 07:00] VITALS: BP 164/78; PULSE 79; RESP 18; O2SAT 97
== END 2020-12-29 07:01 | disposition home or self-care (01) ==
PROVIDERS: Emergency Provider Student in an Organized Health Care Education/Training Program; PCP Family Medicine
DX: N12 Tubulo-interstitial nephritis, not specified as acute or chronic (principal); Z87.891 Personal history of nicotine dependence
CPT/HCPCS: 36415; 74177; 80053; 81001; 85025; 87086; 87088; 96365; 96366; 96375; 96376; 99282; J7030; J7050; Q9967; A4216; J2405

== ENCOUNTER → 2021-01-17 12:09 | Outpatient (CLI) | payer MEDICARE, MEDICAID, SELFPAY ==
[2021-01-17 15:15] LABS: Absolute Lymphocyte Count 0.65 X10^3/uL (0.83-4.51); Absolute Neutrophil Count 5.6 X10^3/uL (2.0-7.7); Basophil# 0.03 X10^3/uL; Basophil% 0.4 % (0-1); Eosinophil# 0.16 X10^3/uL; Eosinophils% 2.1 % (0-5); Hemoglobin 12.1 g/dL (12.0-15.0); Lymphocyte # 0.65 X10^3/ul (0.83-4.51); Lymphocyte % 8.6 % (19-41); Mean Corp Hgb Conc 32.7 g/dL (32-36); Mean Corpuscular Hgb 30.9 pg (27.0-32.0); Mean Corpuscular Volume 94.4 fL (81-99); Mean Platelet Vol. 9.2 fl (6.2-12.0); Monocyte# 0.95 X10^3/uL; Monocyte% 12.6 % (0-10); NRBC Flagged by Analyzer 0 % (0-5); Neutrophil # 5.56 X10^3/uL (2.7-7.7); Neutrophil % 73.5 % (47-70); Platelet Count 247 K/mm3 (150-450); RBC Distribution Width CV 12.9 % (11.6-14.6); RBC Distribution Width SD 44.5 fl (35.1-43.9); Red Blood Count 3.92 M/mm3 (4.2-5.4); White Blood Count 7.6 K/mm3 (4.4-11.0)
[2021-01-17 16:00] LABS: ALB/GLOB Ratio 0.8 RATIO (0.9-2.4); AST(SGOT) 32 U/L (15-37); Alanine Aminotransfer ALT/SGPT 56 U/L (13-56); Albumin, Serum 3.2 g/dL (3.2-5.0); Alkaline Phosphatase 103 U/L (45-117); Anion Gap 13 (5-15); BUN 14 mg/dL (7-18); BUN/Creat Ratio 15.9 RATIO (10-20); Calcium,Total 9.1 mg/dL (8.5-10.1); Chloride 106 mmol/L (98-107); Creatinine, Serum 0.88 mg/dL (0.55-1.02); EST Glomerular Filtration Rate 68 mL/min (>60); Est Glom Filt Rate - Afr Amer 83 mL/min (>60); Globulin 3.9 g/dL (2.2-4.2); Glucose 258 mg/dL (74-106); Potassium 3.8 mmol/L (3.5-5.1); Protein, Total 7.1 g/dL (6.4-8.2); Sodium Level 138 mmol/L (136-145); Thyroid Stim Hormone (TSH) 1.04 uIU/mL (0.358-3.74)
== END ==
PROVIDERS: PCP Family Medicine; Referring Provider Obstetrics & Gynecology; Visit Provider Obstetrics & Gynecology
DX: C54.1 Malignant neoplasm of endometrium (principal); Z79.84 Long term (current) use of oral hypoglycemic drugs
CPT/HCPCS: 36415; 80053; 84443; 85025

== ENCOUNTER → 2021-01-22 14:31 | Outpatient (CLI) | payer MEDICARE, MEDICAID, SELFPAY ==
[2021-01-22 18:16] LABS: Color, Urine Yellow (Yellow); Glucose, Dipstick 1000 mg/dl (Normal); Ketone-Dipstick 5 mg/dl (Negative); Leukocyte Esterase-Dipstick 500 /ul (Negative); Nitrite-Dipstick Negative (Negative); Occult Blood-Urine 10 /ul (Negative); Protein-Dipstick Negative (Negative); Urine Bilirubin Dipstick Negative (Negative); Urine Clarity Sl. Cloudy (Clear); Urine Urobilinogen Normal (Normal)
== END ==
PROVIDERS: PCP Family Medicine
DX: R30.0 Dysuria (principal)
CPT/HCPCS: 81002

== ENCOUNTER 2021-02-07 12:35 | Outpatient (RCR) | payer MEDICARE, MEDICAID, SELFPAY ==
[2021-02-07 15:08] LABS: Absolute Lymphocyte Count 0.41 X10^3/uL (0.83-4.51); Absolute Neutrophil Count 5.5 X10^3/uL (2.0-7.7); Basophil# 0.04 X10^3/uL; Basophil% 0.6 % (0-1); Eosinophil# 0.07 X10^3/uL; Hematocrit 38.9 % (37-47); Hemoglobin 12.6 g/dL (12.0-15.0); Lymphocyte # 0.41 X10^3/ul (0.83-4.51); Lymphocyte % 5.9 % (19-41); Mean Corp Hgb Conc 32.4 g/dL (32-36); Mean Corpuscular Hgb 29.6 pg (27.0-32.0); Mean Corpuscular Volume 91.5 fL (81-99); Mean Platelet Vol. 9.6 fl (6.2-12.0); Monocyte# 0.76 X10^3/uL; NRBC Flagged by Analyzer 0 % (0-5); Neutrophil # 5.53 X10^3/uL (2.7-7.7); Neutrophil % 80.2 % (47-70); POSITIVE DIFFERENTIAL YES; Platelet Count 228 K/mm3 (150-450); RBC Distribution Width CV 13.1 % (11.6-14.6); RBC Distribution Width SD 43.8 fl (35.1-43.9); Red Blood Count 4.25 M/mm3 (4.2-5.4); White Blood Count 6.9 K/mm3 (4.4-11.0)
[2021-02-07 15:12] LABS: Differential Indicated SCAN CRITERIA MET
[2021-02-07 15:21] LABS: ALB/GLOB Ratio 0.8 RATIO (0.9-2.4); AST(SGOT) 36 U/L (15-37); Alanine Aminotransfer ALT/SGPT 63 U/L (13-56); Albumin, Serum 3.1 g/dL (3.2-5.0); Alkaline Phosphatase 98 U/L (45-117); Anion Gap 12 (5-15); BUN 17 mg/dL (7-18); BUN/Creat Ratio 20.1 RATIO (10-20); Calcium,Total 9.1 mg/dL (8.5-10.1); Chloride 102 mmol/L (98-107); Creatinine, Serum 0.84 mg/dL (0.55-1.02); EST Glomerular Filtration Rate 72 mL/min (>60); Est Glom Filt Rate - Afr Amer 87 mL/min (>60); Globulin 3.9 g/dL (2.2-4.2); Glucose 218 mg/dL (74-106); Potassium 4.2 mmol/L (3.5-5.1); Sodium Level 137 mmol/L (136-145)
[2021-02-07 15:41] LABS: Differential Comment SCANNED
== END 2021-02-18 18:00 | disposition home or self-care (01) ==
LOC: MTLAB 12:35
PROVIDERS: PCP Family Medicine; Referring Provider Obstetrics & Gynecology; Visit Provider Obstetrics & Gynecology
DX: C54.1 Malignant neoplasm of endometrium (principal)
CPT/HCPCS: 36415; 80053; 85025

== ENCOUNTER → 2021-02-21 10:16 | Outpatient (CLI) | payer MEDICARE, MEDICAID, SELFPAY ==
[2021-02-21 10:30] LABS: Mucous, Urine 0 SEEN /hpf (<or=2+)
[2021-02-21 12:21] LABS: Color, Urine Red (Yellow); Glucose, Dipstick Normal (Normal); Ketone-Dipstick Negative (Negative); Leukocyte Esterase-Dipstick 25 /ul (Negative); Nitrite-Dipstick Negative (Negative); Occult Blood-Urine 25 /ul (Negative); Protein-Dipstick 100 mg/dl (Negative); Urine Clarity Sl. Cloudy (Clear); Urine Urobilinogen Normal (Normal)
[2021-02-21 12:23] LABS: Urine Bilirubin Dipstick 3 mg/dL (Negative)
[2021-02-21 12:28] LABS: Bacteria 1+ /hpf (None Seen); Red Blood Cells-Urine 0-5 SEEN /hpf (0-5); Squamous Epithelial Cells - UA 10-25 SEEN /hpf (5-10); White Blood Cells 5-10 SEEN /hpf (0-5)
== END ==
PROVIDERS: PCP Family Medicine
DX: R30.0 Dysuria (principal)
CPT/HCPCS: 81001; 87086; 87088

== ENCOUNTER 2021-02-28 11:30 | Outpatient (RCR) | payer MEDICARE, MEDICAID, SELFPAY ==
[2021-02-28 15:06] LABS: Absolute Lymphocyte Count 0.65 X10^3/uL (0.83-4.51); Absolute Neutrophil Count 5.8 X10^3/uL (2.0-7.7); Basophil# 0.06 X10^3/uL; Basophil% 0.8 % (0-1); Eosinophil# 0.06 X10^3/uL; Eosinophils% 0.8 % (0-5); Hematocrit 41.1 % (37-47); Hemoglobin 13.3 g/dL (12.0-15.0); Lymphocyte # 0.65 X10^3/ul (0.83-4.51); Lymphocyte % 8.6 % (19-41); Mean Corp Hgb Conc 32.4 g/dL (32-36); Mean Corpuscular Hgb 29.2 pg (27.0-32.0); Mean Corpuscular Volume 90.1 fL (81-99); Mean Platelet Vol. 9.5 fl (6.2-12.0); Monocyte# 0.89 X10^3/uL; Monocyte% 11.7 % (0-10); NRBC Flagged by Analyzer 0 % (0-5); Neutrophil # 5.76 X10^3/uL (2.7-7.7); Neutrophil % 75.7 % (47-70); Platelet Count 253 K/mm3 (150-450); RBC Distribution Width CV 13.3 % (11.6-14.6); RBC Distribution Width SD 43.8 fl (35.1-43.9); Red Blood Count 4.56 M/mm3 (4.2-5.4); White Blood Count 7.6 K/mm3 (4.4-11.0)
[2021-02-28 15:47] LABS: ALB/GLOB Ratio 0.9 RATIO (0.9-2.4); AST(SGOT) 37 U/L (15-37); Alanine Aminotransfer ALT/SGPT 63 U/L (13-56); Albumin, Serum 3.3 g/dL (3.2-5.0); Alkaline Phosphatase 108 U/L (45-117); Anion Gap 11 (5-15); BUN 19 mg/dL (7-18); BUN/Creat Ratio 18.3 RATIO (10-20); Chloride 101 mmol/L (98-107); Creatinine, Serum 1.04 mg/dL (0.55-1.02); EST Glomerular Filtration Rate 57 mL/min (>60); Est Glom Filt Rate - Afr Amer 68 mL/min (>60); Globulin 3.6 g/dL (2.2-4.2); Glucose 359 mg/dL (74-106); Potassium 4.2 mmol/L (3.5-5.1); Protein, Total 6.9 g/dL (6.4-8.2); Sodium Level 134 mmol/L (136-145)
== END 2021-03-20 18:00 | disposition home or self-care (01) ==
LOC: MTLAB 11:30
PROVIDERS: PCP Family Medicine; Referring Provider Obstetrics & Gynecology; Visit Provider Obstetrics & Gynecology
DX: C54.1 Malignant neoplasm of endometrium (principal); R53.83 Other fatigue
CPT/HCPCS: 36415; 80053; 84443; 85025

== ENCOUNTER 2021-04-11 12:55 | Outpatient (RCR) | payer MEDICARE, MEDICAID, SELFPAY ==
[2021-03-21 14:59] LABS: Absolute Lymphocyte Count 0.53 X10^3/uL (0.83-4.51); Absolute Neutrophil Count 5.4 X10^3/uL (2.0-7.7); Basophil# 0.05 X10^3/uL; Basophil% 0.7 % (0-1); Eosinophils% 1.5 % (0-5); Hematocrit 41.1 % (37-47); Hemoglobin 13.3 g/dL (12.0-15.0); Lymphocyte # 0.53 X10^3/ul (0.83-4.51); Lymphocyte % 7.7 % (19-41); Mean Corp Hgb Conc 32.4 g/dL (32-36); Mean Corpuscular Hgb 28.7 pg (27.0-32.0); Mean Corpuscular Volume 88.6 fL (81-99); Mean Platelet Vol. 9.3 fl (6.2-12.0); Monocyte# 0.72 X10^3/uL; Monocyte% 10.5 % (0-10); NRBC Flagged by Analyzer 0 % (0-5); Neutrophil # 5.36 X10^3/uL (2.7-7.7); Neutrophil % 78.4 % (47-70); POSITIVE DIFFERENTIAL YES; Platelet Count 266 K/mm3 (150-450); RBC Distribution Width CV 13.9 % (11.6-14.6); RBC Distribution Width SD 45.1 fl (35.1-43.9); Red Blood Count 4.64 M/mm3 (4.2-5.4); White Blood Count 6.8 K/mm3 (4.4-11.0)
[2021-03-21 15:03] LABS: Differential Indicated SCAN CRITERIA MET
[2021-03-21 15:22] LABS: ALB/GLOB Ratio 0.8 RATIO (0.9-2.4); AST(SGOT) 56 U/L (15-37); Alanine Aminotransfer ALT/SGPT 86 U/L (13-56); Albumin, Serum 3.4 g/dL (3.2-5.0); Alkaline Phosphatase 115 U/L (45-117); Anion Gap 12 (5-15); BUN 14 mg/dL (7-18); BUN/Creat Ratio 15.7 RATIO (10-20); Calcium,Total 9.7 mg/dL (8.5-10.1); Chloride 103 mmol/L (98-107); Creatinine, Serum 0.89 mg/dL (0.55-1.02); EST Glomerular Filtration Rate 68 mL/min (>60); Est Glom Filt Rate - Afr Amer 82 mL/min (>60); Glucose 231 mg/dL (74-106); Potassium 4.2 mmol/L (3.5-5.1); Protein, Total 7.4 g/dL (6.4-8.2); Sodium Level 137 mmol/L (136-145)
[2021-03-21 15:34] LABS: Differential Comment SCANNED
[2021-04-11 15:08] LABS: Absolute Neutrophil Count 4.5 X10^3/uL (2.0-7.7); Basophil# 0.05 X10^3/uL; Basophil% 0.8 % (0-1); Eosinophil# 0.07 X10^3/uL; Eosinophils% 1.2 % (0-5); Hematocrit 39.8 % (37-47); Hemoglobin 13.2 g/dL (12.0-15.0); Lymphocyte % 8.4 % (19-41); Mean Corp Hgb Conc 33.2 g/dL (32-36); Mean Corpuscular Hgb 29.3 pg (27.0-32.0); Mean Corpuscular Volume 88.4 fL (81-99); Mean Platelet Vol. 9.3 fl (6.2-12.0); Monocyte# 0.65 X10^3/uL; NRBC Flagged by Analyzer 0 % (0-5); Neutrophil # 4.52 X10^3/uL (2.7-7.7); Neutrophil % 76.2 % (47-70); POSITIVE DIFFERENTIAL YES; Platelet Count 240 K/mm3 (150-450); RBC Distribution Width CV 14.4 % (11.6-14.6); RBC Distribution Width SD 46.1 fl (35.1-43.9); White Blood Count 5.9 K/mm3 (4.4-11.0)
[2021-04-11 15:23] LABS: Differential Indicated SCAN CRITERIA MET
[2021-04-11 15:27] LABS: ALB/GLOB Ratio 0.9 RATIO (0.9-2.4); AST(SGOT) 57 U/L (15-37); Alanine Aminotransfer ALT/SGPT 97 U/L (13-56); Albumin, Serum 3.4 g/dL (3.2-5.0); Alkaline Phosphatase 120 U/L (45-117); Anion Gap 10 (5-15); BUN 16 mg/dL (7-18); BUN/Creat Ratio 18.4 RATIO (10-20); Calcium,Total 9.5 mg/dL (8.5-10.1); Chloride 104 mmol/L (98-107); Creatinine, Serum 0.87 mg/dL (0.55-1.02); EST Glomerular Filtration Rate 69 mL/min (>60); Est Glom Filt Rate - Afr Amer 84 mL/min (>60); Globulin 3.9 g/dL (2.2-4.2); Glucose 342 mg/dL (74-106); Potassium 4.2 mmol/L (3.5-5.1); Protein, Total 7.3 g/dL (6.4-8.2); Sodium Level 136 mmol/L (136-145); Thyroid Stim Hormone (TSH) 1.83 uIU/mL (0.358-3.74)
[2021-04-11 15:54] LABS: Differential Comment SCANNED
== END 2021-04-21 18:00 | disposition home or self-care (01) ==
LOC: MTLAB 12:55
PROVIDERS: PCP Family Medicine; Referring Provider Obstetrics & Gynecology; Visit Provider Obstetrics & Gynecology
DX: C54.1 Malignant neoplasm of endometrium (principal)
CPT/HCPCS: 36415; 80053; 84443; 85025

== ENCOUNTER 2021-04-16 04:50 | Emergency (ER) | payer MEDICARE, MEDICAID, SELFPAY ==
[2021-04-16 04:50] VITALS: BP 189/97; PULSE 101; RESP 20; TEMP 36; O2SAT 95; BMI 38.3
[2021-04-16 04:56] VITALS: BP 189/80; PULSE 101; RESP 20; TEMP 36; O2SAT 95
--- NOTE | 2021-04-16 05:04 | CT_ITS ---
STUDY: CT ABDOMEN AND PELVIS WITHOUT CONTRAST REASON FOR EXAM: Female, 65 years old. llq pain RADIATION DOSAGE (If Supplied By Facility): CTDIvol = ( 18.53 ) mGy, DLP = ( 995.48 ) mGycm TECHNIQUE: Transaxial images were obtained from the dome of the diaphragm to the symphysis pubis without oral contrast, and without intravenous contrast. Sagittal and coronal images were reconstructed. Individualized dose optimization techniques were used for this CT. COMPARISON: 12/29/2020 CT abdomen and pelvis FINDINGS: The visualized lung bases are unremarkable. The visualized portions of the heart are within normal limits. The liver is enlarged and fatty infiltrated. There is a laminated gallstone in the gallbladder measuring 1.4 cm. Stable since prior study. Normal spleen. Normal pancreas. Normal bilateral adrenal glands. Normal right kidney. Normal left kidney. Normal visualized stomach. Normal small intestine. There is a tortuous redundant decompressed appearance of the colon. There is postoperative change in the pelvis. There are a few diverticula present without visualized diverticulitis. There is non-visualization of the appendix. The aorta is partially calcified. Normal inferior vena cava. Normal retroperitoneum. Normal urinary bladder. There is absence of the uterus consistent with a prior hysterectomy. There is a small umbilical hernia containing fat. There is a left greater than right fatty inguinal hernia. There are diffuse degenerative changes of the visualized lumbar spine. L2-L3 there is a broad disc bulge facet arthropathy moderate neural foramina narrowing moderate central stenosis. CT/Abdomen/Pelvis without Cont IMPRESSION: Enlarged fatty infiltrated liver Cholelithiasis. Diverticulosis no visualized diverticulitis. Status post hysterectomy. No visualized hydronephrosis. No visualized renal ureteral bladder calculi. Electronically Signed: Gabi Stone MD at 6:19 EST Tel , Service support ,
--- NOTE | 2021-04-16 05:07 | EDS_ITS ---
HPI HPI - GI History of Present Illness Chief Complaint: Complaint Informant: patient Abdominal Pain/Flank Pain Onset: Yesterday (at 1800) Context: Sudden Onset Timing: Continuous Quality: Aching Location: LLQ (w/o radiation) Current Severity: Severe Maximum Severity: Severe Worsened by: Nothing Relieved by: Nothing Nausea/Vomiting/Emesis GI Symptom: Negative for Nausea and Vomiting Diarrhea/Melena/Hematochezia GI Symptom: Negative for Diarrhea, Melena and Hematochezia Associated Symptoms Associated Symptoms: Positive for Dysuria (mild burning); Negative for Frequency, Hematuria and Urgency Narrative Narrative: Patient presents saying she has a urinary tract infection and the last time she was here she received Dilaudid for it, requesting it again because she is in so much pain. She states 3 days ago, she started having minor burning and called her doctor who prescribed her an antibiotic that she is currently on and does not seem to be doing anything. She states the pain started all of a sudden this past evening about 11 hours prior to evaluation, and has been severe ever since in the left lower quadrant. She denies pain elsewhere. No nausea or vomiting. She states this is happened a couple other times after she has received her chemotherapy medication for endometrial cancer, but not necessarily every time. She states sometimes, she was given an antibiotic that did not initially work and then she received a different one in the ER that did work and so she is looking for that again now to. She refers me to her records. [facility] Medical History CVA (cerebral vascular accident) Diabetes Endometrial cancer Glaucoma HTN (hypertension), benign Mini stroke Postmenopausal bleeding s/p radiation Home Medications aspirin 81 mg PO DAILY@0800 #100 tab.chew 05/06/14 [Rx Last Taken 12/18/17] brimonidine-timolol 1 drp RIGHT EYE BID 12/19/17 [History Last Taken 12/19/17] dicyclomine 10 mg capsule 10 mg PO .FOUR TIMES DAILY cap 09/21/18 [History Last Taken Unknown] gabapentin 100 mg capsule 300 mg PO TID PRN 09/21/18 [History Last Taken Unknown] pantoprazole 40 mg tablet,delayed release 40 mg PO DAILY #30 tab 09/21/18 [Rx Last Taken Unknown] dicyclomine 20 mg PO .q4-6h PRN #20 capsule 12/09/20 [Rx Last Taken Unknown] metformin 500 mg PO BID 12/09/20 [History Last Taken Unknown] oxycodone 10 mg PO Q4H PRN 12/09/20 [History Last Taken Unknown] ondansetron 4 mg PO Q8H PRN PRN #14 tab 12/29/20 [Rx Last Taken Unknown] ciprofloxacin HCl 500 mg PO BID #14 tablet 04/16/21 [Rx Last Taken Unknown] pembrolizumab [Keytruda] mg IV 04/16/21 [History Last Taken Unknown] Allergy/AdvReac Type Severity Reaction Status Date / Time morphine Allergy Anaphylaxis Verified 12/28/20 23:10 codeine AdvReac Upset Verified 12/28/20 23:10 Stomach Family History Father Colon cancer Heart disease Hypertension CVA (cerebral vascular accident) Mother Heart disease Hypertension Surgical History delivery delivered Hx of hysterectomy Hx of tonsillectomy Social History adopted: No household members: none number of children: 4 current occupational status: unemployed pets and animals: Yes Smoking Status: Former smoker Tobacco: How many years used: 20 alcohol intake: current alcohol intake frequency: holidays/special occasions only substance use type: does not use what type of physical activity do you participate in: walking seatbelt use: always do you feel safe at home: Yes ROS ROS ED Constitutional Constitutional ED: Denies chills or fever(s) Eyes Eyes: Denies change in vision or diplopia ENT ENT ED: Denies rhinorrhea or sore throat Cardiovascular Cardiovascular: Denies chest pain or palpitations Respiratory/Chest Respiratory/Chest: Denies cough or dyspnea Gastrointestinal Gastrointestinal: Reports abdominal pain; Denies diarrhea, nausea or vomiting Genitourinary Genitourinary ED: Reports dysuria; Denies hematuria or urinary frequency Musculoskeletal Musculoskeletal: Denies back pain or neck pain Integumentary Denies abscess or rash Neurologic Neurologic: Denies headache(s), paresthesias or weakness Psychiatric Psychiatric: Denies anxiety or suicidal thoughts EXAM Physical Exam Const Vital Signs: 04/16/21 04:50 04/16/21 04:56 04/16/21 06:27 Temperature 96.8 F L 96.8 F L 97.8 F Temperature Source Temporal Temporal Temporal Pulse Rate 101 H 101 H Respiratory Rate 20 H 20 H Blood Pressure 189/97 H 189/80 H Blood Pressure Mean 127 116 Pulse Ox 95 95 Oxygen Delivery Method Room Air Room Air Positive well nourished, well developed and obese Constitutional Narrative: Appears uncomfortable. No distress. General Appearance ED: well developed and NAD Nutritional Appearance: obese HEENT Reports moist mucous membranes normocephalic and atraumatic Eyes PERRL and EOMs intact bilaterally Neck full ROM and supple Resp normal respiratory effort and clear to auscultation bilaterally Cardio regular rate, regular rhythm and no murmurs GI non-tender and non-distended Auscultation: normoactive bowel sounds Palpation: soft Back/Spine no CVA tenderness General Back: other FROM Extremity normal to inspection General Extremety ED: Negative for edema, pulses abnormal or tenderness General Extremity: Negative for edema or pulses abnormal Neuro oriented x3, CN's II-XII intact bilaterally and no sensory deficits noted Sensorium / Orientation: awake and alert Motor Exam: strength 5/5 throughout Skin no rashes or lesions noted and no wounds MDM MDM MDM Narrative Medical decision making narrative: Reviewing her records, she did have visits for left lower quadrant pain in November and December, both times she had normal CT scans and urine cultures were negative both times. I felt it was appropriate to repeat all of these tests, labs, urinalysis, CT abdomen/pelvis without contrast, while administering analgesics and prophylactic antinausea medication. Similar to prior encounters, her work-up shows urinalysis consistent with infection with positive nitrite, 500 leukocyte esterase, and significant pyuria, with a nondiagnostic CT that shows nothing acute. She has diverticulosis without diverticulitis. There is no ureteral calculus or other obvious ureteral abnormality, she does have cholelithiasis that should not be causing pain in t his area of her abdomen and likely is incidental, and no other radiographic cause for left lower quadrant pain. She is feeling better after Dilaudid. She was offered another dose if she needed it prior to discharge, her urine was cultured and she was given a dose of Rocephin empirically. The antibiotic she was started on is Bactrim, certainly a reasonable choice, but since she is having persistent/worsening symptoms, we will switch her to Cipro. She has oxycodone to use at home for pain. Her blood sugar is high as well, so we will treat that as well prior to discharge. Lab Data Attestation: I reviewed the patient's lab results. Labs: Laboratory Results - last 24 hr 04/16/21 04/16/21 04/16/21 05:08 05:42 05:42 WBC 8.3 RBC 4.37 Hgb 12.9 Hct 38.9 MCV 89.0 MCH 29.5 MCHC 33.2 RDW Std Deviation 44.9 H RDW Coeff of Kavita 13.7 Plt Count 206 MPV 9.1 Immature Gran % (Auto) 1.100 H Neut % (Auto) 87.6 H Lymph % (Auto) 3.0 L [place] % (Auto) 7.6 Eos % (Auto) 0.2 Baso % (Auto) 0.5 Absolute Neuts (auto) 7.3 Absolute Lymphs (auto) 0.25 L Nucleated RBC % 0 Sodium 130 L Potassium 4.0 Chloride 94 L Carbon Dioxide 24.0 Anion Gap 12 BUN 8 Creatinine 0.81 Estim Creat Clear Calc 64.82 Est GFR (MDRD) Af Amer 92 Est GFR (MDRD) Non-Af 76 BUN/Creatinine Ratio 9.9 L Glucose 309 H Calcium 9.6 Urine Color [place] Urine Clarity Clear Urine pH 5.0 Ur Specific [place] 1.020 Urine Protein 30 H Urine Glucose (UA) 1000 H Urine Ketones 50 H Urine Occult Blood 25 H Urine Nitrite Positive H Urine Bilirubin 3 H Urine Urobilinogen 4 H Ur Leukocyte Esterase 500 H Urine RBC 5-10 SEEN Urine WBC 25-50 SEEN Ur Squamous Epith Cells 5-10 SEEN Urine Bacteria 1+ Urine Mucus 0 SEEN Radiography Diagnostic Testing: Clinical Impression(s) from Imaging Studies Abdomen/Pelvis CT 04/16/21 05:04 IMPRESSION: Enlarged fatty infiltrated liver Cholelithiasis. Diverticulosis no visualized diverticulitis. Status post hysterectomy. No visualized hydronephrosis. No visualized renal ureteral bladder calculi. Electronically Signed: Gabi Stone MD at 6:19 EST Tel , Service support , Discharge Plan Triage Chief Complaint: Complaint ED Provider: Praful Zambrano Dx/Rx/DC Orders Clinical Impression: Acute left lower quadrant pain, Urinary tract infection, Hyperglycemia due to type 2 diabetes mellitus Instructions: Abdominal Pain, Understanding Urinary Tract ... Prescriptions: New ciprofloxacin HCl [ciprofloxacin HCl] 500 MG tablet 500 mg PO BID Qty: 14 RF: 0 No Action dicyclomine 10 mg capsule 10 mg PO .FOUR TIMES DAILY RF: 0 gabapentin 100 mg capsule 300 mg PO TID PRN (Reason: Pain) RF: 0 pantoprazole 40 mg tablet,delayed release (DR/EC) 40 mg PO DAILY Qty: 30 RF: 2 aspirin 81 MG tablet,chewable 81 mg PO DAILY@0800 Qty: 100 RF: 0 brimonidine-timolol 1 DROP bottle 1 drp RIGHT EYE BID RF: 0 metformin 500 mg tablet extended release 24 hr 500 mg PO BID RF: 0 oxycodone 10 mg Tablet 10 mg PO Q4H PRN (Reason: Pain) RF: 0 dicyclomine 10 MG capsule 20 mg PO .q4-6h PRN (Reason: abdominal discomfort) Qty: 20 RF: 0 ondansetron 4 mg tablet,disintegrating 4 mg PO Q8H PRN PRN (Reason: Nausea) Qty: 14 RF: 0 Keytruda 25 mg/mL Solution IV RF: 0 Primary Care Provider: Alek Hernandez Referrals: Alek Hernandez MD [Primary Care Provider] - 3-5 Days if not improving (Or Dr. Quiñonez) Disposition Disposition: Home, Self Care
[2021-04-16 05:18] LABS: Mucous, Urine 0 SEEN /hpf (<or=2+)
[2021-04-16 05:22] LABS: Color, Urine Amber (Yellow); Glucose, Dipstick 1000 mg/dl (Normal); Ketone-Dipstick 50 mg/dl (Negative); Leukocyte Esterase-Dipstick 500 /ul (Negative); Nitrite-Dipstick Positive (Negative); Occult Blood-Urine 25 /ul (Negative); Protein-Dipstick 30 mg/dl (Negative); Urine Clarity Clear (Clear); Urine Urobilinogen 4 mg/dl (Normal)
[2021-04-16 05:32] LABS: Bacteria 1+ /hpf (None Seen); Red Blood Cells-Urine 5-10 SEEN /hpf (0-5); Squamous Epithelial Cells - UA 5-10 SEEN /hpf (5-10); Urine Bilirubin Dipstick 3 mg/dL (Negative); White Blood Cells 25-50 SEEN /hpf (0-5)
[2021-04-16] MEDS: HYDROmorphone 1 MG/ML Syringe IV ×2 (05:37→06:52)
[2021-04-16] MEDS: Ondansetron 4 MG/2 ML Vial IV (05:37)
[2021-04-16 05:57] LABS: Absolute Lymphocyte Count 0.25 X10^3/uL (0.83-4.51); Absolute Neutrophil Count 7.3 X10^3/uL (2.0-7.7); Basophil# 0.04 X10^3/uL; Basophil% 0.5 % (0-1); Eosinophil# 0.02 X10^3/uL; Eosinophils% 0.2 % (0-5); Hematocrit 38.9 % (37-47); Hemoglobin 12.9 g/dL (12.0-15.0); Lymphocyte # 0.25 X10^3/ul (0.83-4.51); Mean Corp Hgb Conc 33.2 g/dL (32-36); Mean Corpuscular Hgb 29.5 pg (27.0-32.0); Mean Platelet Vol. 9.1 fl (6.2-12.0); Monocyte# 0.63 X10^3/uL; Monocyte% 7.6 % (0-10); NRBC Flagged by Analyzer 0 % (0-5); Neutrophil # 7.29 X10^3/uL (2.7-7.7); Neutrophil % 87.6 % (47-70); POSITIVE DIFFERENTIAL YES; Platelet Count 206 K/mm3 (150-450); RBC Distribution Width CV 13.7 % (11.6-14.6); RBC Distribution Width SD 44.9 fl (35.1-43.9); Red Blood Count 4.37 M/mm3 (4.2-5.4); White Blood Count 8.3 K/mm3 (4.4-11.0)
[2021-04-16 06:01] LABS: Anion Gap 12 (5-15); BUN 8 mg/dL (7-18); BUN/Creat Ratio 9.9 RATIO (10-20); Calcium,Total 9.6 mg/dL (8.5-10.1); Chloride 94 mmol/L (98-107); Creatinine, Serum 0.81 mg/dL (0.55-1.02); EST Glomerular Filtration Rate 76 mL/min (>60); Est Glom Filt Rate - Afr Amer 92 mL/min (>60); Estimated Creatinine Clearance 64.82 ml/min; Glucose 309 mg/dL (74-106); Sodium Level 130 mmol/L (136-145)
[2021-04-16 06:03] LABS: Differential Indicated SCAN CRITERIA MET
[2021-04-16] MEDS: Ceftriaxone 1 GM/50 ML BAG IV (06:25)
[2021-04-16 06:27] VITALS: TEMP 36.6
[2021-04-16 06:44] VITALS: BP 106/87; PULSE 78; RESP 17; O2SAT 98
[2021-04-16] MEDS: Insulin Lispro 100 UNIT/ML INSULN.PEN 10 UNIT SC (06:55)
[2021-04-16 07:45] LABS: Bedside Glucose 314 mg/dL (70-110)
== END 2021-04-16 07:47 | disposition home or self-care (01) ==
PROVIDERS: Emergency Provider Emergency Medicine; PCP Family Medicine
DX: R10.32 Left lower quadrant pain (principal); N39.0 Urinary tract infection, site not specified; E11.65 Type 2 diabetes mellitus with hyperglycemia; E66.9 Obesity, unspecified; H40.9 Unspecified glaucoma; Z79.84 Long term (current) use of oral hypoglycemic drugs; Z79.82 Long term (current) use of aspirin; Z87.891 Personal history of nicotine dependence; Z90.710 Acquired absence of both cervix and uterus; Z92.3 Personal history of irradiation; Z79.899 Other long term (current) drug therapy
CPT/HCPCS: 74176; 80048; 81001; 82962; 85025; 87086; 87088; 96365; 96375; 96376; 99285; A4216; J2405

== ENCOUNTER 2021-05-02 15:07 | Outpatient (RCR) | payer MEDICARE, MEDICAID, SELFPAY ==
[2021-05-02 18:06] LABS: Absolute Lymphocyte Count 0.42 X10^3/uL (0.83-4.51); Absolute Neutrophil Count 4.8 X10^3/uL (2.0-7.7); Basophil# 0.04 X10^3/uL; Basophil% 0.6 % (0-1); Hematocrit 39.9 % (37-47); Hemoglobin 12.9 g/dL (12.0-15.0); Lymphocyte # 0.42 X10^3/ul (0.83-4.51); Lymphocyte % 6.6 % (19-41); Mean Corp Hgb Conc 32.3 g/dL (32-36); Mean Corpuscular Hgb 29.1 pg (27.0-32.0); Mean Corpuscular Volume 89.9 fL (81-99); Mean Platelet Vol. 9.7 fl (6.2-12.0); Monocyte# 0.82 X10^3/uL; NRBC Flagged by Analyzer 0 % (0-5); Neutrophil # 4.75 X10^3/uL (2.7-7.7); Neutrophil % 75.2 % (47-70); POSITIVE DIFFERENTIAL YES; Platelet Count 290 K/mm3 (150-450); RBC Distribution Width CV 13.5 % (11.6-14.6); RBC Distribution Width SD 44.4 fl (35.1-43.9); Red Blood Count 4.44 M/mm3 (4.2-5.4); White Blood Count 6.3 K/mm3 (4.4-11.0)
[2021-05-02 18:13] LABS: Differential Indicated SCAN CRITERIA MET
[2021-05-02 18:27] LABS: AST(SGOT) 40 U/L (15-37); Alanine Aminotransfer ALT/SGPT 78 U/L (13-56); Albumin, Serum 3.6 g/dL (3.2-5.0); Alkaline Phosphatase 107 U/L (45-117); Anion Gap 10 (5-15); BUN 32 mg/dL (7-18); BUN/Creat Ratio 26.7 RATIO (10-20); Calcium,Total 9.1 mg/dL (8.5-10.1); Chloride 100 mmol/L (98-107); EST Glomerular Filtration Rate 48 mL/min (>60); Est Glom Filt Rate - Afr Amer 58 mL/min (>60); Globulin 3.5 g/dL (2.2-4.2); Glucose 348 mg/dL (74-106); Potassium 4.5 mmol/L (3.5-5.1); Protein, Total 7.1 g/dL (6.4-8.2); Sodium Level 134 mmol/L (136-145)
[2021-05-02 18:35] LABS: Differential Comment SCANNED
== END 2021-05-21 18:00 | disposition home or self-care (01) ==
LOC: MTLAB 15:07
PROVIDERS: PCP Family Medicine; Referring Provider Obstetrics & Gynecology; Visit Provider Obstetrics & Gynecology
DX: C54.1 Malignant neoplasm of endometrium (principal)
CPT/HCPCS: 36415; 80053; 85025

== ENCOUNTER 2021-05-30 13:47 | Outpatient (RCR) | payer MEDICARE, MEDICAID, SELFPAY ==
[2021-05-30 15:36] LABS: Absolute Lymphocyte Count 0.12 X10^3/uL (0.83-4.51); Absolute Neutrophil Count 4.4 X10^3/uL (2.0-7.7); Basophil# 0.02 X10^3/uL; Basophil% 0.4 % (0-1); Hematocrit 35.4 % (37-47); Hemoglobin 12.3 g/dL (12.0-15.0); Lymphocyte # 0.12 X10^3/ul (0.83-4.51); Lymphocyte % 2.2 % (19-41); Mean Corp Hgb Conc 34.7 g/dL (32-36); Mean Corpuscular Hgb 31.4 pg (27.0-32.0); Mean Corpuscular Volume 90.3 fL (81-99); Mean Platelet Vol. 9.4 fl (6.2-12.0); Monocyte# 0.79 X10^3/uL; Monocyte% 14.6 % (0-10); NRBC Flagged by Analyzer 0 % (0-5); Neutrophil # 4.41 X10^3/uL (2.7-7.7); Neutrophil % 81.7 % (47-70); POSITIVE DIFFERENTIAL YES; Platelet Count 210 K/mm3 (150-450); RBC Distribution Width CV 14.4 % (11.6-14.6); RBC Distribution Width SD 46.7 fl (35.1-43.9); Red Blood Count 3.92 M/mm3 (4.2-5.4); White Blood Count 5.4 K/mm3 (4.4-11.0)
[2021-05-30 15:39] LABS: Differential Indicated SCAN CRITERIA MET
[2021-05-30 16:16] LABS: AST(SGOT) 28 U/L (15-37); Alanine Aminotransfer ALT/SGPT 37 U/L (13-56); Albumin, Serum 3.4 g/dL (3.2-5.0); Alkaline Phosphatase 81 U/L (45-117); Anion Gap 11 (5-15); BUN 8 mg/dL (7-18); BUN/Creat Ratio 9.4 RATIO (10-20); Calcium,Total 8.5 mg/dL (8.5-10.1); Chloride 102 mmol/L (98-107); Creatinine, Serum 0.85 mg/dL (0.55-1.02); EST Glomerular Filtration Rate 71 mL/min (>60); Est Glom Filt Rate - Afr Amer 86 mL/min (>60); Globulin 3.5 g/dL (2.2-4.2); Glucose 181 mg/dL (74-106); Potassium 3.8 mmol/L (3.5-5.1); Protein, Total 6.9 g/dL (6.4-8.2); Sodium Level 134 mmol/L (136-145)
== END 2021-05-30 23:59 | disposition home or self-care (01) ==
LOC: MTLAB 13:47
PROVIDERS: PCP Family Medicine; Referring Provider Obstetrics & Gynecology; Visit Provider Obstetrics & Gynecology
DX: C54.1 Malignant neoplasm of endometrium (principal)
CPT/HCPCS: 36415; 80053; 85025

== ENCOUNTER 2021-06-27 13:53 | Outpatient (RCR) | payer MEDICARE, MEDICAID, SELFPAY ==
[2021-06-27 15:13] LABS: Absolute Lymphocyte Count 0.27 X10^3/uL (0.83-4.51); Absolute Neutrophil Count 7.6 X10^3/uL (2.0-7.7); Basophil# 0.03 X10^3/uL; Basophil% 0.3 % (0-1); Hematocrit 36.4 % (37-47); Hemoglobin 12.8 g/dL (12.0-15.0); Lymphocyte # 0.27 X10^3/ul (0.83-4.51); Lymphocyte % 3.1 % (19-41); Mean Corp Hgb Conc 35.2 g/dL (32-36); Mean Corpuscular Hgb 32.7 pg (27.0-32.0); Mean Corpuscular Volume 93.1 fL (81-99); Mean Platelet Vol. 9.1 fl (6.2-12.0); Monocyte# 0.69 X10^3/uL; Monocyte% 7.9 % (0-10); NRBC Flagged by Analyzer 0 % (0-5); Neutrophil # 7.63 X10^3/uL (2.7-7.7); Neutrophil % 87.7 % (47-70); POSITIVE DIFFERENTIAL YES; Platelet Count 273 K/mm3 (150-450); RBC Distribution Width CV 14.6 % (11.6-14.6); RBC Distribution Width SD 48.9 fl (35.1-43.9); Red Blood Count 3.91 M/mm3 (4.2-5.4); White Blood Count 8.7 K/mm3 (4.4-11.0)
[2021-06-27 15:14] LABS: Differential Indicated SCAN CRITERIA MET
[2021-06-27 15:39] LABS: Differential Comment SCANNED
[2021-06-27 15:59] LABS: AST(SGOT) 42 U/L (15-37); Alanine Aminotransfer ALT/SGPT 50 U/L (13-56); Albumin, Serum 3.5 g/dL (3.2-5.0); Alkaline Phosphatase 89 U/L (45-117); Anion Gap 9 (5-15); BUN 10 mg/dL (7-18); BUN/Creat Ratio 9.8 RATIO (10-20); Calcium,Total 9.5 mg/dL (8.5-10.1); Chloride 105 mmol/L (98-107); Creatinine, Serum 1.02 mg/dL (0.55-1.02); EST Glomerular Filtration Rate 58 mL/min (>60); Est Glom Filt Rate - Afr Amer 70 mL/min (>60); Globulin 3.4 g/dL (2.2-4.2); Glucose 240 mg/dL (74-106); Potassium 3.4 mmol/L (3.5-5.1); Protein, Total 6.9 g/dL (6.4-8.2); Sodium Level 136 mmol/L (136-145)
[2021-06-28 15:29] LABS: Thyroid Stim Hormone (TSH) 1.52 uIU/mL (0.358-3.74)
== END 2021-07-19 18:00 | disposition home or self-care (01) ==
LOC: MTLAB 13:53
PROVIDERS: PCP Family Medicine; Referring Provider Obstetrics & Gynecology; Visit Provider Obstetrics & Gynecology
DX: C56.3 Malignant neoplasm of bilateral ovaries
CPT/HCPCS: 36415; 80053; 84443; 85025

== ENCOUNTER 2021-08-15 13:08 | Outpatient (RCR) | payer MEDICARE, MEDICAID, SELFPAY ==
[2021-07-25 14:59] LABS: Absolute Lymphocyte Count 0.32 X10^3/uL (0.83-4.51); Absolute Neutrophil Count 5.6 X10^3/uL (2.0-7.7); Basophil# 0.06 X10^3/uL; Basophil% 0.8 % (0-1); Eosinophils% 1.4 % (0-5); Hematocrit 37.5 % (37-47); Hemoglobin 12.6 g/dL (12.0-15.0); Lymphocyte # 0.32 X10^3/ul (0.83-4.51); Lymphocyte % 4.5 % (19-41); Mean Corp Hgb Conc 33.6 g/dL (32-36); Mean Corpuscular Hgb 31.9 pg (27.0-32.0); Mean Corpuscular Volume 94.9 fL (81-99); Mean Platelet Vol. 9.3 fl (6.2-12.0); Monocyte# 0.92 X10^3/uL; Monocyte% 12.9 % (0-10); NRBC Flagged by Analyzer 0 % (0-5); Neutrophil # 5.61 X10^3/uL (2.7-7.7); Neutrophil % 78.9 % (47-70); POSITIVE DIFFERENTIAL YES; Platelet Count 289 K/mm3 (150-450); RBC Distribution Width CV 13.4 % (11.6-14.6); RBC Distribution Width SD 47.4 fl (35.1-43.9); Red Blood Count 3.95 M/mm3 (4.2-5.4); White Blood Count 7.1 K/mm3 (4.4-11.0)
[2021-07-25 15:10] LABS: Differential Indicated SCAN CRITERIA MET
[2021-07-25 15:19] LABS: ALB/GLOB Ratio 1.1 RATIO (0.9-2.4); AST(SGOT) 28 U/L (15-37); Alanine Aminotransfer ALT/SGPT 42 U/L (13-56); Albumin, Serum 3.7 g/dL (3.2-5.0); Alkaline Phosphatase 90 U/L (45-117); Anion Gap 6 (5-15); BUN 14 mg/dL (7-18); BUN/Creat Ratio 14.8 RATIO (10-20); Calcium,Total 9.5 mg/dL (8.5-10.1); Chloride 105 mmol/L (98-107); Creatinine, Serum 0.95 mg/dL (0.55-1.02); EST Glomerular Filtration Rate 63 mL/min (>60); Est Glom Filt Rate - Afr Amer 76 mL/min (>60); Globulin 3.5 g/dL (2.2-4.2); Glucose 167 mg/dL (74-106); Potassium 3.9 mmol/L (3.5-5.1); Protein, Total 7.2 g/dL (6.4-8.2); Sodium Level 135 mmol/L (136-145)
[2021-08-15 15:28] LABS: Absolute Lymphocyte Count 0.28 X10^3/uL (0.83-4.51); Absolute Neutrophil Count 5.8 X10^3/uL (2.0-7.7); Basophil# 0.04 X10^3/uL; Basophil% 0.6 % (0-1); Hematocrit 37.1 % (37-47); Hemoglobin 12.4 g/dL (12.0-15.0); Lymphocyte # 0.28 X10^3/ul (0.83-4.51); Mean Corp Hgb Conc 33.4 g/dL (32-36); Mean Corpuscular Hgb 31.3 pg (27.0-32.0); Mean Corpuscular Volume 93.7 fL (81-99); Mean Platelet Vol. 9.1 fl (6.2-12.0); Monocyte# 0.74 X10^3/uL; Monocyte% 10.7 % (0-10); NRBC Flagged by Analyzer 0 % (0-5); Neutrophil # 5.79 X10^3/uL (2.7-7.7); Neutrophil % 83.7 % (47-70); POSITIVE DIFFERENTIAL YES; Platelet Count 297 K/mm3 (150-450); RBC Distribution Width CV 12.4 % (11.6-14.6); RBC Distribution Width SD 42.9 fl (35.1-43.9); Red Blood Count 3.96 M/mm3 (4.2-5.4); White Blood Count 6.9 K/mm3 (4.4-11.0)
[2021-08-15 15:37] LABS: Differential Indicated SCAN CRITERIA MET
[2021-08-15 15:38] LABS: AST(SGOT) 32 U/L (15-37); Alanine Aminotransfer ALT/SGPT 38 U/L (13-56); Albumin, Serum 3.5 g/dL (3.2-5.0); Alkaline Phosphatase 83 U/L (45-117); Anion Gap 8 (5-15); BUN 16 mg/dL (7-18); BUN/Creat Ratio 16.1 RATIO (10-20); Chloride 105 mmol/L (98-107); Creatinine, Serum 0.99 mg/dL (0.55-1.02); EST Glomerular Filtration Rate 60 mL/min (>60); Est Glom Filt Rate - Afr Amer 72 mL/min (>60); Globulin 3.4 g/dL (2.2-4.2); Glucose 144 mg/dL (74-106); Potassium 3.8 mmol/L (3.5-5.1); Protein, Total 6.9 g/dL (6.4-8.2); Sodium Level 138 mmol/L (136-145)
[2021-08-15 16:05] LABS: Platelet Estimate ADEQUATE (ADEQ); Red Cell Morphology NORM C+C NORMAL (NORM C&C)
== END 2021-08-15 18:00 | disposition home or self-care (01) ==
LOC: MTLAB 13:08
PROVIDERS: PCP Family Medicine; Referring Provider Obstetrics & Gynecology; Visit Provider Obstetrics & Gynecology
DX: C56.3 Malignant neoplasm of bilateral ovaries (principal); C54.1 Malignant neoplasm of endometrium
CPT/HCPCS: 36415; 80053; 85025

== ENCOUNTER 2021-09-05 13:29 | Outpatient (RCR) | payer MEDICARE, MEDICAID, SELFPAY ==
[2021-09-05 15:07] LABS: Absolute Lymphocyte Count 0.38 X10^3/uL (0.83-4.51); Absolute Neutrophil Count 6.9 X10^3/uL (2.0-7.7); Basophil# 0.04 X10^3/uL; Basophil% 0.5 % (0-1); Eosinophil# 0.01 X10^3/uL; Eosinophils% 0.1 % (0-5); Hematocrit 37.5 % (37-47); Hemoglobin 12.6 g/dL (12.0-15.0); Lymphocyte # 0.38 X10^3/ul (0.83-4.51); Lymphocyte % 4.6 % (19-41); Mean Corp Hgb Conc 33.6 g/dL (32-36); Mean Corpuscular Hgb 31.4 pg (27.0-32.0); Mean Corpuscular Volume 93.5 fL (81-99); Mean Platelet Vol. 9.2 fl (6.2-12.0); Monocyte# 0.82 X10^3/uL; NRBC Flagged by Analyzer 0 % (0-5); Neutrophil # 6.86 X10^3/uL (2.7-7.7); Neutrophil % 83.7 % (47-70); POSITIVE DIFFERENTIAL YES; Platelet Count 280 K/mm3 (150-450); RBC Distribution Width CV 12.2 % (11.6-14.6); Red Blood Count 4.01 M/mm3 (4.2-5.4); White Blood Count 8.2 K/mm3 (4.4-11.0)
[2021-09-05 15:08] LABS: Differential Indicated SCAN CRITERIA MET
[2021-09-05 15:32] LABS: AST(SGOT) 26 U/L (15-37); Alanine Aminotransfer ALT/SGPT 35 U/L (13-56); Albumin, Serum 3.4 g/dL (3.2-5.0); Alkaline Phosphatase 93 U/L (45-117); Anion Gap 9 (5-15); BUN 17 mg/dL (7-18); BUN/Creat Ratio 19.6 RATIO (10-20); Calcium,Total 8.9 mg/dL (8.5-10.1); Chloride 107 mmol/L (98-107); Creatinine, Serum 0.87 mg/dL (0.55-1.02); EST Glomerular Filtration Rate 70 mL/min (>60); Est Glom Filt Rate - Afr Amer 84 mL/min (>60); Globulin 3.5 g/dL (2.2-4.2); Glucose 150 mg/dL (74-106); Potassium 3.7 mmol/L (3.5-5.1); Protein, Total 6.9 g/dL (6.4-8.2); Sodium Level 139 mmol/L (136-145)
[2021-09-05 16:04] LABS: Differential Comment SCANNED
== END 2021-09-05 18:00 | disposition home or self-care (01) ==
LOC: MTLAB 13:29
PROVIDERS: PCP Family Medicine; Referring Provider Obstetrics & Gynecology; Visit Provider Obstetrics & Gynecology
DX: C56.3 Malignant neoplasm of bilateral ovaries (principal); C54.1 Malignant neoplasm of endometrium
CPT/HCPCS: 36415; 80053; 85025

== ENCOUNTER 2021-10-17 11:32 | Outpatient (RCR) | payer MEDICARE, MEDICAID, SELFPAY ==
[2021-09-26 15:18] LABS: Absolute Neutrophil Count 5.5 X10^3/uL (2.0-7.7); Basophil# 0.04 X10^3/uL; Basophil% 0.6 % (0-1); Eosinophil# 0.03 X10^3/uL; Eosinophils% 0.4 % (0-5); Hematocrit 39.1 % (37-47); Hemoglobin 13.1 g/dL (12.0-15.0); Lymphocyte % 5.8 % (19-41); Mean Corp Hgb Conc 33.5 g/dL (32-36); Mean Corpuscular Hgb 30.7 pg (27.0-32.0); Mean Corpuscular Volume 91.6 fL (81-99); Mean Platelet Vol. 8.8 fl (6.2-12.0); Monocyte# 0.85 X10^3/uL; Monocyte% 12.3 % (0-10); NRBC Flagged by Analyzer 0 % (0-5); Neutrophil # 5.51 X10^3/uL (2.7-7.7); Neutrophil % 79.7 % (47-70); POSITIVE DIFFERENTIAL YES; Platelet Count 288 K/mm3 (150-450); RBC Distribution Width CV 12.2 % (11.6-14.6); RBC Distribution Width SD 40.9 fl (35.1-43.9); Red Blood Count 4.27 M/mm3 (4.2-5.4); White Blood Count 6.9 K/mm3 (4.4-11.0)
[2021-09-26 15:21] LABS: Differential Indicated SCAN CRITERIA MET
[2021-09-26 15:48] LABS: ALB/GLOB Ratio 0.9 RATIO (0.9-2.4); AST(SGOT) 23 U/L (15-37); Alanine Aminotransfer ALT/SGPT 36 U/L (13-56); Albumin, Serum 3.5 g/dL (3.2-5.0); Alkaline Phosphatase 93 U/L (45-117); Anion Gap 8 (5-15); BUN 15 mg/dL (7-18); BUN/Creat Ratio 16.6 RATIO (10-20); Chloride 105 mmol/L (98-107); Creatinine, Serum 0.91 mg/dL (0.55-1.02); EST Glomerular Filtration Rate 66 mL/min (>60); Est Glom Filt Rate - Afr Amer 80 mL/min (>60); Globulin 3.7 g/dL (2.2-4.2); Glucose 169 mg/dL (74-106); Potassium 3.9 mmol/L (3.5-5.1); Protein, Total 7.2 g/dL (6.4-8.2); Sodium Level 137 mmol/L (136-145); Thyroid Stim Hormone (TSH) 2.17 uIU/mL (0.358-3.74)
[2021-09-26 16:18] LABS: Anisocytosis RARE; Macrocytosis RARE; Platelet Estimate ADEQUATE (ADEQ); Red Cell Morphology N CHROM NORMAL (NORM C&C)
[2021-10-17 15:09] LABS: Absolute Lymphocyte Count 0.34 X10^3/uL (0.83-4.51); Absolute Neutrophil Count 6.4 X10^3/uL (2.0-7.7); Basophil# 0.04 X10^3/uL; Basophil% 0.5 % (0-1); Eosinophil# 0.03 X10^3/uL; Eosinophils% 0.4 % (0-5); Hemoglobin 12.5 g/dL (12.0-15.0); Lymphocyte # 0.34 X10^3/ul (0.83-4.51); Lymphocyte % 4.4 % (19-41); Mean Corp Hgb Conc 33.8 g/dL (32-36); Mean Corpuscular Hgb 30.2 pg (27.0-32.0); Mean Corpuscular Volume 89.4 fL (81-99); Mean Platelet Vol. 9.2 fl (6.2-12.0); Monocyte# 0.78 X10^3/uL; Monocyte% 10.2 % (0-10); NRBC Flagged by Analyzer 0 % (0-5); Neutrophil # 6.42 X10^3/uL (2.7-7.7); Neutrophil % 83.6 % (47-70); POSITIVE DIFFERENTIAL YES; Platelet Count 277 K/mm3 (150-450); RBC Distribution Width CV 12.6 % (11.6-14.6); RBC Distribution Width SD 41.3 fl (35.1-43.9); Red Blood Count 4.14 M/mm3 (4.2-5.4); White Blood Count 7.7 K/mm3 (4.4-11.0)
[2021-10-17 15:36] LABS: Differential Indicated SCAN CRITERIA MET
[2021-10-17 15:54] LABS: ALB/GLOB Ratio 0.9 RATIO (0.9-2.4); AST(SGOT) 20 U/L (15-37); Alanine Aminotransfer ALT/SGPT 27 U/L (13-56); Albumin, Serum 3.4 g/dL (3.2-5.0); Alkaline Phosphatase 85 U/L (45-117); Anion Gap 7 (5-15); BUN 16 mg/dL (7-18); BUN/Creat Ratio 16.9 RATIO (10-20); Calcium,Total 9.3 mg/dL (8.5-10.1); Chloride 108 mmol/L (98-107); Creatinine, Serum 0.95 mg/dL (0.55-1.02); EST Glomerular Filtration Rate 63 mL/min (>60); Est Glom Filt Rate - Afr Amer 76 mL/min (>60); Globulin 3.6 g/dL (2.2-4.2); Glucose 123 mg/dL (74-106); Potassium 3.9 mmol/L (3.5-5.1); Sodium Level 139 mmol/L (136-145); Thyroid Stim Hormone (TSH) 1.52 uIU/mL (0.358-3.74)
[2021-10-17 16:03] LABS: Differential Comment SCANNED
== END 2021-10-18 16:00 | disposition home or self-care (01) ==
LOC: MTLAB 11:32
PROVIDERS: PCP Family Medicine; Referring Provider Obstetrics & Gynecology; Visit Provider Obstetrics & Gynecology
DX: C56.3 Malignant neoplasm of bilateral ovaries (principal); C54.1 Malignant neoplasm of endometrium
CPT/HCPCS: 36415; 80053; 84443; 85025

== ENCOUNTER 2021-11-28 14:25 | Outpatient (RCR) | payer MEDICARE, MEDICAID, SELFPAY ==
[2021-11-28 17:42] LABS: Basophil# 0.03 X10^3/uL; Basophil% 0.5 % (0-1); Eosinophil# 0.17 X10^3/uL; Eosinophils% 2.6 % (0-5); Hematocrit 36.8 % (37-47); Hemoglobin 12.3 g/dL (12.0-15.0); Lymphocyte % 6.2 % (19-41); Mean Corp Hgb Conc 33.4 g/dL (32-36); Mean Corpuscular Hgb 30.4 pg (27.0-32.0); Mean Corpuscular Volume 90.9 fL (81-99); Monocyte# 0.79 X10^3/uL; Monocyte% 12.2 % (0-10); NRBC Flagged by Analyzer 0 % (0-5); Neutrophil % 77.6 % (47-70); POSITIVE DIFFERENTIAL YES; Platelet Count 278 K/mm3 (150-450); RBC Distribution Width CV 13.9 % (11.6-14.6); RBC Distribution Width SD 46.4 fl (35.1-43.9); Red Blood Count 4.05 M/mm3 (4.2-5.4); White Blood Count 6.5 K/mm3 (4.4-11.0)
[2021-11-28 17:49] LABS: Differential Indicated SCAN CRITERIA MET
[2021-11-28 18:01] LABS: ALB/GLOB Ratio 0.9 RATIO (0.9-2.4); AST(SGOT) 20 U/L (15-37); Alanine Aminotransfer ALT/SGPT 32 U/L (13-56); Albumin, Serum 3.3 g/dL (3.2-5.0); Alkaline Phosphatase 88 U/L (45-117); Anion Gap 7 (5-15); BUN 14 mg/dL (7-18); BUN/Creat Ratio 14.4 RATIO (10-20); Calcium,Total 8.9 mg/dL (8.5-10.1); Chloride 107 mmol/L (98-107); Creatinine, Serum 0.97 mg/dL (0.55-1.02); EST Glomerular Filtration Rate 61 mL/min (>60); Est Glom Filt Rate - Afr Amer 74 mL/min (>60); Globulin 3.7 g/dL (2.2-4.2); Glucose 178 mg/dL (74-106); Potassium 3.9 mmol/L (3.5-5.1); Sodium Level 139 mmol/L (136-145)
[2021-11-28 18:38] LABS: Differential Comment SCANNED
== END 2021-11-28 18:00 | disposition home or self-care (01) ==
LOC: MTLAB 14:25
PROVIDERS: PCP Family Medicine; Referring Provider Obstetrics & Gynecology; Visit Provider Obstetrics & Gynecology
DX: C54.1 Malignant neoplasm of endometrium; C56.3 Malignant neoplasm of bilateral ovaries
CPT/HCPCS: 36415; 80053; 85025

== ENCOUNTER 2022-01-09 11:09 | Outpatient (RCR) | payer MEDICARE, MEDICAID, SELFPAY ==
[2022-01-09 12:43] LABS: Absolute Lymphocyte Count 0.31 X10^3/uL (0.83-4.51); Absolute Neutrophil Count 4.2 X10^3/uL (2.0-7.7); Basophil# 0.03 X10^3/uL; Basophil% 0.6 % (0-1); Eosinophil# 0.02 X10^3/uL; Eosinophils% 0.4 % (0-5); Hematocrit 37.4 % (37-47); Hemoglobin 12.3 g/dL (12.0-15.0); Lymphocyte # 0.31 X10^3/ul (0.83-4.51); Lymphocyte % 5.7 % (19-41); Mean Corp Hgb Conc 32.9 g/dL (32-36); Mean Corpuscular Hgb 30.3 pg (27.0-32.0); Mean Corpuscular Volume 92.1 fL (81-99); Mean Platelet Vol. 9.1 fl (6.2-12.0); Monocyte# 0.75 X10^3/uL; Monocyte% 13.9 % (0-10); NRBC Flagged by Analyzer 0 % (0-5); Neutrophil # 4.24 X10^3/uL (2.7-7.7); Neutrophil % 78.5 % (47-70); POSITIVE DIFFERENTIAL YES; Platelet Count 257 K/mm3 (150-450); RBC Distribution Width CV 13.8 % (11.6-14.6); RBC Distribution Width SD 46.7 fl (35.1-43.9); Red Blood Count 4.06 M/mm3 (4.2-5.4); White Blood Count 5.4 K/mm3 (4.4-11.0)
[2022-01-09 12:47] LABS: Differential Indicated SCAN CRITERIA MET
[2022-01-09 13:12] LABS: Differential Comment SCANNED
[2022-01-09 13:53] LABS: ALB/GLOB Ratio 0.9 RATIO (0.9-2.4); AST(SGOT) 18 U/L (15-37); Alanine Aminotransfer ALT/SGPT 31 U/L (13-56); Albumin, Serum 3.5 g/dL (3.2-5.0); Alkaline Phosphatase 107 U/L (45-117); Anion Gap 13 (5-15); BUN 16 mg/dL (7-18); BUN/Creat Ratio 15.4 RATIO (10-20); Calcium,Total 9.4 mg/dL (8.5-10.1); Chloride 106 mmol/L (98-107); Creatinine, Serum 1.04 mg/dL (0.55-1.02); EST Glomerular Filtration Rate 56 mL/min (>60); Est Glom Filt Rate - Afr Amer 68 mL/min (>60); Globulin 3.9 g/dL (2.2-4.2); Glucose 134 mg/dL (74-106); Potassium 3.9 mmol/L (3.5-5.1); Protein, Total 7.4 g/dL (6.4-8.2); Sodium Level 141 mmol/L (136-145); Thyroid Stim Hormone (TSH) 2.01 uIU/mL (0.358-3.74)
== END 2022-01-09 18:00 | disposition home or self-care (01) ==
LOC: MTLAB 11:09
PROVIDERS: PCP Family Medicine; Referring Provider Obstetrics & Gynecology; Visit Provider Obstetrics & Gynecology
DX: C56.3 Malignant neoplasm of bilateral ovaries
CPT/HCPCS: 36415; 80053; 84443; 85025

== ENCOUNTER → 2022-11-28 | Outpatient (CLI) | payer MEDICARE, MEDICAID, SELFPAY ==
--- NOTE | 2022-11-28 17:22 | RAD_ITS ---
STUDY: X-RAY - UNILATERAL RIBS ( LEFT ) REASON FOR EXAM: Female, 67 years old. L lower rib pain TECHNIQUE: 4 view(s) of the ribs. Visualized artifact overlying the left lower ribs only view. There is moderate stool in the colon. COMPARISON: None. FINDINGS: Normal visualized left ribs without a demonstrated fracture. The visualized left lung is clear and expanded. There is a visualized right-sided Port-A-Cath. Allowing for positioning, There is levoscoliosis. Allowing for summation artifact projected over the left lower lobe. There is no visualized fracture. RAD/Ribs Unil 2V No CXR IMPRESSION: Allowing for some artifact no visualized fracture. Degenerative change thoracolumbar spine. Electronically Signed: Gabi Stone MD at 5:51 EDT Reading Location ID and State: [facility] / [place] Tel , Service support ,
--- NOTE | 2022-11-28 17:22 | RAD_ITS ---
STUDY: X-RAY - ABDOMEN/PELVIS REASON FOR EXAM: Female, 67 years old. Pain TECHNIQUE: 5 views of the abdomen are provided without bright and supine imaging. COMPARISON: None. FINDINGS: Normal visualized lung bases. The visualized right-sided Port-A-Cath. The tip is not well-visualized on this study. There is moderate stool within the colon. There is partially visualized postoperative change within the pelvis. The liver spleen and kidneys are mostly obscured on this study due to overlying bowel gas and body habitus. Visualized levoscoliosis. There is degenerative change. RAD/Abd Inc Decub and/or Erect IMPRESSION: Moderate constipation. Postoperative change in the pelvis. Electronically Signed: Gabi Stone MD at 0:40 EDT ,
== END | disposition home or self-care (01) ==
LOC: MTRAD 17:20
PROVIDERS: PCP Family Medicine; Visit Provider Family Medicine
DX: R07.81 Pleurodynia (principal)
CPT/HCPCS: 71100; 74019

== ENCOUNTER → 2022-11-29 | Outpatient (CLI) | payer MEDICARE, MEDICAID, SELFPAY ==
[2022-11-29 11:05] LABS: Mucous, Urine 0 SEEN /hpf (<or=2+)
[2022-11-29 12:18] LABS: Erythrocyte Sedimentation Rate 22 mm/hr (0-30)
[2022-11-29 12:19] LABS: Absolute Lymphocyte Count 0.47 X10^3/uL (0.83-4.51); Absolute Neutrophil Count 4.1 X10^3/uL (2.0-7.7); Basophil# 0.03 X10^3/uL; Basophil% 0.6 % (0-1); Eosinophil# 0.04 X10^3/uL; Eosinophils% 0.8 % (0-5); Hemoglobin 12.9 g/dL (12.0-15.0); Lymphocyte # 0.47 X10^3/ul (0.83-4.51); Lymphocyte % 8.9 % (19-41); Mean Corp Hgb Conc 32.3 g/dL (32-36); Mean Corpuscular Hgb 29.3 pg (27.0-32.0); Mean Corpuscular Volume 90.9 fL (81-99); Mean Platelet Vol. 8.8 fl (6.2-12.0); Monocyte# 0.52 X10^3/uL; Monocyte% 9.8 % (0-10); NRBC Flagged by Analyzer 0 % (0-5); Neutrophil # 4.12 X10^3/uL (2.7-7.7); Neutrophil % 77.8 % (47-70); POSITIVE DIFFERENTIAL YES; Platelet Count 279 K/mm3 (150-450); RBC Distribution Width CV 13.3 % (11.6-14.6); RBC Distribution Width SD 44.2 fl (35.1-43.9); White Blood Count 5.3 K/mm3 (4.4-11.0)
[2022-11-29 12:24] LABS: Differential Indicated SCAN CRITERIA MET
[2022-11-29 12:29] LABS: Color, Urine Yellow (Yellow); Glucose, Dipstick Normal (Normal); Ketone-Dipstick Negative (Negative); Leukocyte Esterase-Dipstick 500 /ul (Negative); Nitrite-Dipstick Negative (Negative); Occult Blood-Urine 10 /ul (Negative); Protein-Dipstick 30 mg/dl (Negative); Urine Bilirubin Dipstick Negative (Negative); Urine Clarity Sl. Cloudy (Clear); Urine Urobilinogen Normal (Normal)
[2022-11-29 12:45] LABS: Bacteria 1+ /hpf (None Seen); Red Blood Cells-Urine 0-5 SEEN /hpf (0-5); Squamous Epithelial Cells - UA 0-5 SEEN /hpf (5-10); White Blood Cells 25-50 SEEN /hpf (0-5)
[2022-11-29 12:52] LABS: Vitamin B12 321 pg/mL (211-911); Vitamin D,25 Hydroxy 24.5 ng/mL
[2022-11-29 12:55] LABS: ALB/GLOB Ratio 0.9 RATIO (0.9-2.4); AST(SGOT) 25 U/L (15-37); Alanine Aminotransfer ALT/SGPT 37 U/L (13-56); Albumin, Serum 3.5 g/dL (3.2-5.0); Alkaline Phosphatase 91 U/L (45-117); Anion Gap 6 (5-15); BUN 15 mg/dL (7-18); Calcium,Total 9.3 mg/dL (8.5-10.1); Chloride 107 mmol/L (98-107); Cholesterol 189 mg/dL (200); Creatinine, Serum 0.79 mg/dL (0.55-1.02); EST Glomerular Filtration Rate 77 mL/min (>60); Est Glom Filt Rate - Afr Amer 94 mL/min (>60); Globulin 3.8 g/dL (2.2-4.2); Glucose 136 mg/dL (74-106); High Density Lipoprotein 47 mg/dL; Protein, Total 7.3 g/dL (6.4-8.2); Sodium Level 139 mmol/L (136-145); Thyroid Stim Hormone (TSH) 1.83 uIU/mL (0.358-3.74); Triglycerides 324 mg/dL; Very Low Density Lipoprotein 65 mg/dL (5-40)
== END | disposition home or self-care (01) ==
LOC: MTLAB 10:59
PROVIDERS: PCP Family Medicine; Visit Provider Family Medicine
DX: E11.9 Type 2 diabetes mellitus without complications (principal); R53.83 Other fatigue
CPT/HCPCS: 36415; 80053; 80061; 81001; 82306; 82533; 82607; 84443; 85025; 85652; 86140

== ENCOUNTER → 2023-01-15 | Outpatient (CLI) | payer MEDICARE, MEDICAID, SELFPAY ==
--- NOTE | 2023-01-16 10:12 | PFTCOMP_ITS ---
COMPLETE PULMONARY FUNCTION TEST INTERPRETATION Brief HPI: Patient is a 67-year-old female, currently under the care of Dr. Romeor, who presents to [facility] for complete pulmonary function tests secondary to diagnosis of dyspnea. Respiratory therapist reports good effort and reproducible results. Interpretation: Forced expiration spirometry shows no large airways obstructive ventilatory defect with an FEV1 of 89% predicted. There is no significant bronchodilator response by strict ATS criteria. Spirograms are of good quality and plateau slowly, indicating slowly emptying areas of the lungs. The respiratory flow volume loop shows decreased expiratory flow rates at high lung volumes consistent with small airways obstruction. Lung volumes by body plethysmography show a normal total lung capacity at 4.84 L, 92% predicted. All other lung volumes are within normal limits. Diffusion capacity by carbon monoxide is at the lower limit of normal at 81% predicted. The airway resistance is normal. Compared to previous pulmonary function tests from 2020, there has been no significant change. Impression: Grossly normal pulmonary function test with some stigmata of small airways disease
== END | disposition home or self-care (01) ==
PROVIDERS: PCP Family Medicine; Referring Provider Family Medicine; Visit Provider Family Medicine
DX: R06.02 Shortness of breath (principal)
CPT/HCPCS: 94060; 94726; 94729

== ENCOUNTER → 2023-01-22 | Outpatient (CLI) | payer MEDICARE, SELFPAY ==
--- NOTE | 2023-01-22 14:07 | ECHOD_ITS ---
Reason For Study: SOB Procedure This was a 2D Doppler, Color Flow transthoracic echocardiogram. Exam performed in department. Left Ventricle Normal LV size. Left ventricular systolic function is normal. The estimated ejection fraction is 65 %. Stage 1 diastolic dysfunction. No regional wall motion abnormalities noted. Right Ventricle Normal RV size. Normal systolic function. Atria Normal left atrium. Normal right atrium. Mitral Valve Normal mitral valve. Tricuspid Valve Normal tricuspid valve. Aortic Valve Trisinus/trileaflet aortic valve. Pulmonic Valve Normal pulmonic valve. Great Vessels Mildly dilated aortic root. The pulmonary artery is normal size. Normal inferior vena cava. Pericardium/Pleural No pericardial effusion. MMode/2D Measurements & Calculations RVDd: 2.6 cm Ao root diam: 3.8 cm LAV(MOD-bp): 41.2 ml LAV(MOD-bp) Indexed: 19.0 ml/m2 LAV(MOD-sp2): 43.6 ml LAV(MOD-sp4): 39.5 ml SV(MOD-sp4): 27.1 ml SV(sp4-el): 29.1 ml LVAd ap4: 22.5 cm2 LVLd ap4: 7.9 cm EDV(MOD-sp4): 51.8 ml EDV(sp4-el): 54.2 ml LVAs ap4: 14.0 cm2 LVLs ap4: 6.6 cm ESV(MOD-sp4): 24.7 ml ESV(sp4-el): 25.2 ml EF(MOD-sp4): 52.3 % EF(sp4-el): 53.6 % LA A4 area: 16.0 cm2 LA dimension(2D): 2.9 cm RA A4 area: 12.4 cm2 TAPSE: 1.1 cm Time Measurements MV dec time: 0.23 sec Doppler Measurements & Calculations MV E max calvin: 60.2 cm/sec Lat Peak E' Calvin: 13.5 cm/sec Med Peak E' Calvin: 5.1 cm/sec MV A max calvin: 86.2 cm/sec E/E' lat: 4.5 E/E' med: 11.8 MV E/A: 0.70 MV V2 max: 95.5 cm/sec Ao V2 max: 178.5 cm/sec MV max P.6 mmHg MV dec slope: 263.0 cm/sec2 Ao max P.7 mmHg MV V2 mean: 60.4 cm/sec Ao V2 mean: 122.5 cm/sec MV mean P.6 mmHg Ao mean P.8 mmHg MV V2 VTI: 26.4 cm Ao V2 VTI: 32.2 cm AV (velocity ratio): 0.79 LV V1 max: 138.2 cm/sec PA V2 max: 108.5 cm/sec LV V1 max P.6 mmHg PA V2 mean: 66.8 cm/sec LV V1 mean P.7 mmHg LV V1 mean: 89.0 cm/sec LV V1 VTI: 25.3 cm ECHO/Echo Complete Interpretation Summary Normal LV size. Left ventricular systolic function is normal. The estimated ejection fraction is 65 %. Stage 1 diastolic dysfunction. Mildly dilated aortic root. Ordering Physician: Alek Hernandez Referring Physician: Donovan Hernandez MD Performed By: Gwen Dillon RCS
== END | disposition home or self-care (01) ==
LOC: CVS 14:04
PROVIDERS: PCP Family Medicine; Visit Provider Family Medicine
DX: R06.02 Shortness of breath (principal)
CPT/HCPCS: 93306

== ENCOUNTER → 2023-08-26 | Outpatient (CLI) | payer MEDICARE, SELFPAY ==
--- NOTE | 2023-08-26 12:00 | PET_ITS ---
EXAMINATION: FDG PET-CT INDICATIONS: A 67-year-old female with history of endometrial carcinoma presenting for restaging examination. COMPARISON EXAMINATION: FDG PET-CT study dated 04/10/23 TECHNIQUE: Following the intravenous administration of 14.3 mCi of F-18 deoxyglucose via the right wrist, multiplanar image acquisitions of the neck, chest, abdomen and pelvis to level of mid thigh, obtained at one hour post radiopharmaceutical administration contemporaneously interpreted with the current CT of the neck, chest, abdomen and pelvis, to level of mid thigh, dated 08/26/23 via coregistration and FDG PET-CT study dated 04/10/23 reveals: BLOOD GLUCOSE LEVEL:?? 159 mg/dl?HEIGHT:?68 inches?WEIGHT: 235 lbs. FINDINGS: Head/Neck: There is no evidence of abnormal increased glucose metabolism in the pharyngeal mucosal space, parapharyngeal space, bilateral-lateral and anterior neck, hypopharynx and distribution of the laryngeal structures. The visualized portion of the cerebral cortical-subcortical structures demonstrate symmetric and preserved glucose metabolism. CHEST: There is no quantitative scintigraphic evidence of abnormal increased glucose metabolism within the context of the bilateral hemithorax pulmonary parenchyma, right and left hemithorax pleural interface, mediastinal structures and right-left thoracic perihilum. The previously identified right lung hypermetabolic focus is not apparent on the current examination. Pertinent chest CT findings are as follows. Parenchymal densities defined in the right upper posterior lung field are ametabolic. There is atherosclerotic calcification defined in the thoracic aorta without evidence of dilatation-aneurysm formation. Nicholas-cath placement is noted. Abdomen/Pelvis: Pooling of the radiopharmaceutical appears apparent in the lower perineum most consistent with urethral diverticulum. If soft tissue mass formation is suspected, correlation with CT of the abdomen and pelvis with oral and intravenous contrast is recommended. Normal physiologic distribution of the radiopharmaceutical is apparent in the hepatic and splenic parenchyma, both renal units, bladder and visualized intestinal tract. Diffuse radiopharmaceutical concentration is noted in all four quadrants of the abdomen and pelvis. Pertinent abdomen and pelvis CT findings are as follows. The uterus appears surgically absent. Cholelithiasis is defined. There is atherosclerotic calcification defined in the abdominal aorta without evidence of dilatation-aneurysm formation. Post-procedural change is noted in the lower pelvic mesentery, presumably attributed to previous hysterectomy. Skeletal: Degenerative changes are noted in the cervical, thoracic and lumbar spine without evidence of increased radiopharmaceutical concentration. PET/PET/CT Tumor Base -Thigh Subs IMPRESSION: 1. NEGATIVE EXAMINATION. There is no definitive quantitative scintigraphic evidence of recurrent-metastatic/viable neoplasm. 2. There is interim resolution of the prior defined right lung hypermetabolic focus. 3. Overall, compared to the previous FDG PET-CT study dated 04/10/23, there is current absence of defined viable neoplastic disease. Electronic Signature Gabriel Elizondo D.O. Accurate Quantification of SUVs for this report are calculated using the exclusive [employer], ([place].S. Patent No. [phone] [id number] [phone] patent [id number] ). Standardization and correction of the FDG SUV metric exclusively available with [employer] intellectual property, allow for vendor non-specific objective quantitative sequential FDG PET-CT comparison and otherwise unobtainable optimization of the sensitivity and specificity of the examination. [email or web address].[email or web address]/[email or web address]://[employer] Electronically Signed: Gabriel Elizondo DO at 8:08 EDT ,
== END | disposition home or self-care (01) ==
PROVIDERS: PCP Family Medicine; Referring Provider Obstetrics & Gynecology; Visit Provider Obstetrics & Gynecology
DX: C54.1 Malignant neoplasm of endometrium (principal); C78.01 Secondary malignant neoplasm of right lung; Z92.3 Personal history of irradiation
CPT/HCPCS: 78815; A9552

== ENCOUNTER → 2024-02-10 | Outpatient (CLI) | payer MEDICARE, SELFPAY | END | disposition home or self-care (01) | PROVIDERS: PCP Family Medicine; Referring Provider Obstetrics & Gynecology; Visit Provider Obstetrics & Gynecology | DX: C54.1 Malignant neoplasm of endometrium (principal) ==

== ENCOUNTER 2024-03-22 12:44 | Emergency (ER) | payer MEDICARE, SELFPAY ==
[2024-03-22 12:46] VITALS: BP 151/92; PULSE 111; RESP 16; TEMP 36.8; O2SAT 95; BMI 38.6
[2024-03-22 13:12] LABS: Bedside Glucose 213 mg/dL (74-106)
[2024-03-22 14:45] VITALS: BP 157/105; PULSE 92; RESP 19; O2SAT 98
--- NOTE | 2024-03-22 15:06 | CT_ITS ---
EXAM: CT HEAD WITHOUT AND WITH INTRAVENOUS CONTRAST CLINICAL INDICATION: confused, dysequilibrium, hx endometrial ca TECHNIQUE: Multiple axial images were obtained of the head without and with intravenous contrast. This CT exam was performed using one or more of the following dose reduction techniques: automated exposure control, adjustment of the mA and/or kV according to patient size, and/or use of iterative reconstruction technique. CONTRAST: IV 50mL Isovue-370 COMPARISON: MRI brain 05/06/2014 FINDINGS: BRAIN AND EXTRA-AXIAL SPACES: No intra- or extra-axial hemorrhage. No evidence of acute infarct. No intracranial mass or mass effect. There is preservation of the rowe/white matter interface. Posterior fossa structures are unremarkable. Ventricles are appropriate for age. No hydrocephalus. Basal cisterns are patent. No abnormal contrast enhancement. BONES/JOINTS: Normal calvarium. SINUSES: No acute sinusitis. MASTOID AIR CELLS: Normal. Clear. CT/Brain/Head W/WO Contrast IMPRESSION: No acute intracranial abnormality. Electronically Signed: Ja Slater MD at 16:43 EST ,
--- NOTE | 2024-03-22 15:06 | EKG12_ITS ---
Test Reason : Blood Pressure : */* mmHG Vent. Rate : 100 BPM Atrial Rate : 100 BPM P-R Int : 160 ms QRS Dur : 88 ms QT Int : 362 ms P-R-T Axes : 45 30 39 degrees QTcB Int : 466 ms Normal sinus rhythm Nonspecific ST and T wave abnormality Abnormal ECG Confirmed by Augusto Vargas ([id number]), social media editor CHESTER ORTIZ ([id number]) on 03/24/2024 5:56:27 AM Referred By: Confirmed By: Augusto Vargas
--- NOTE | 2024-03-22 15:07 | EX.ED.DYSGE1 ---
HPI History of Present Illness Chief Complaint: Weakness Informant: patient and friend Narrative Narrative: 58-year-old female has had about a week of generalized fatigue and weakness, disequilibrium and ataxia with walking without noe feeling of dizziness, just occasional lightheadedness/orthostatic symptoms, and today her friend picked her up to run some errands and she was acting disoriented, speaking slowly but not frankly confused although that is the word she used. Patient states she has been feeling somewhat confused but cannot give me details. She is a very poor historian basically states she does not feel well. She and friend state that she has a history of endometrial cancer. She was treated with chemo and radiation but has not had any of that for over a year, they are not sure how long it has been. However she did have another spot that she had surgery for this year but has had no chemo or radiation. Follows with oncology Dr. Brooks who is an oncologist at [facility]. She states she gets regular PET scans. This is all the details that she can give with regards to the current status of her cancer, when asked if she is in remission she states she does not know. She also states that she is wondering if this is related to her blood sugars. However she has not been checking them except for once earlier today or yesterday it was in the 240s, today she is 218 here in triage. [facility] Medical History Asthma HTN (hypertension), benign Diabetes s/p radiation Endometrial cancer Postmenopausal bleeding CVA (cerebral vascular accident) Mini stroke Glaucoma Home Medications ?Medication ?Instructions ?Recorded ?Last Taken ?Type aspirin 81 mg chewable tablet 81 mg PO DAILY@0800 ##100 05/06/14 12/18/17 Rx brimonidine 0.2 %-timolol 0.5 % 1 drp RIGHT EYE BID 12/19/17 12/19/17 History eye drops dicyclomine 10 mg capsule 10 mg PO .FOUR TIMES DAILY 09/21/18 Unknown History gabapentin 100 mg capsule 300 mg PO TID PRN Pain 09/21/18 Unknown History pantoprazole 40 mg tablet,delayed 40 mg PO DAILY #30 tabs 09/21/18 Unknown Rx release dicyclomine 10 mg capsule 20 mg (2 x 10 mg) PO .q4-6h PRN 12/09/20 Unknown Rx abdominal discomfort #20 CAPSULES metformin 500 mg tablet,extended 500 mg PO BID 12/09/20 Unknown History release 24 hr ondansetron 4 mg disintegrating 4 mg PO Q8H PRN PRN Nausea #14 tabs 12/29/20 Unknown Rx tablet oxycodone 10 mg tablet 5 mg PO Q4H PRN Pain 04/29/23 Unknown History sulfamethoxazole 800 1 tab PO BID #14 TABLETS 03/22/24 Unknown Rx mg-trimethoprim 160 mg tablet Allergy/AdvReac Type Severity Reaction Status Date / Time morphine Allergy Anaphylaxis Verified 03/22/24 12:49 codeine AdvReac Upset Verified 03/22/24 12:49 Stomach Family History Father Colon cancer Heart disease Hypertension CVA (cerebral vascular accident) Mother Heart disease Hypertension Surgical History delivery delivered Hx of hysterectomy Hx of tonsillectomy Social History adopted: No household members: none number of children: 4 current occupational status: unemployed pets and animals: Yes Smoking Status: Former smoker Tobacco: How many years used: 20 alcohol intake: current alcohol intake frequency: holidays/special occasions only substance use type: does not use what type of physical activity do you participate in: walking seatbelt use: always do you feel safe at home: Yes ROS ROS ED Constitutional Constitutional ED: Denies chills or fever(s) Eyes Eyes: Reports blurry vision bilateral (Couple weeks. No visual loss.) and change in vision; Denies diplopia ENT ENT ED: Denies rhinorrhea, sore throat, tinnitus or vertigo Cardiovascular Cardiovascular: Reports lightheadedness; Denies chest pain, palpitations or syncope Respiratory/Chest Respiratory/Chest: Denies cough or dyspnea Gastrointestinal Gastrointestinal: Denies abdominal pain, diarrhea, nausea or vomiting Genitourinary Genitourinary ED: Reports urinary frequency; Denies dysuria or hematuria Musculoskeletal Musculoskeletal: Denies back pain or neck pain Integumentary Denies abscess or rash Neurologic Neurologic: Reports as per HPI, abnormal gait, confusion, lack of coordination and other Details: I feel wobbly for about a week or so with walking, most of the time but not all ; Denies headache(s), paresthesias, seizures, syncope or vertigo Psychiatric Psychiatric: Denies anxiety or suicidal thoughts Allergic/Immunologic Allergic/Immunologic ED: Denies mouth swelling, tongue swelling or urticaria EXAM Physical Exam Const Vital Signs: 03/22/24 12:46 03/22/24 14:45 03/22/24 16:00 Temperature 98.2 F Temperature Source Oral Pulse Rate 111 H 92 78 Respiratory Rate 16 19 H 19 H Blood Pressure 151/92 H 157/105 H 173/97 H Blood Pressure Mean 111 122 122 Pulse Ox 95 98 Oxygen Delivery Method Room Air Room Air 03/22/24 18:00 Temperature Temperature Source Pulse Rate 78 Respiratory Rate 19 H Blood Pressure 163/77 H Blood Pressure Mean 105 Pulse Ox Oxygen Delivery Method Positive well nourished and well developed General Appearance ED: well developed and NAD HEENT Reports moist mucous membranes normocephalic and atraumatic Eyes PERRL and EOMs intact bilaterally Neck full ROM and supple Resp normal respiratory effort and clear to auscultation bilaterally Cardio regular rate, regular rhythm and no murmurs Rate: other Other Details: Mild tachycardia GI non-tender and non-distended Auscultation: normoactive bowel sounds Palpation: soft Back/Spine no CVA tenderness General Back: other FROM Extremity normal to inspection General Extremety ED: Negative for edema, pulses abnormal or tenderness General Extremity: Negative for edema or pulses abnormal Neuro oriented x3, CN's II-XII intact bilaterally and no sensory deficits noted Neuro Narrative: Speech is slow but not dysarthric or aphasic. Not grossly confused. Normal [id number]-[id number]-lhdg and [id number]-[id number] bilaterally. Able to stand and walk but is off balance, not to the point of falling. Negative Romberg. Normal skew test. Patient not actively vertiginous, and has normal response to jolt test. No pathologic nystagmus present. Sensorium / Orientation: awake and alert Motor Exam: strength 5/5 throughout Psych Psych Narrative: Flat affect Skin no rashes or lesions noted and no wounds MDM MDM MDM Narrative Medical decision making narrative: Wide differential here including causes of disequilibrium, cancer metastases to the brain, infections, metabolic disorder, hematologic disorder such as anemia, cardiopulmonary disorders. Her blood tests are all noted. Lactic acid is abnormal, and she does have what appears to be a urine infection, however her vital signs are normal except for hypertension, and clinically and hemodynamically she does not appear to be septic. However to cover her bases I did obtain blood cultures and send her urine for culture while giving her a dose of Rocephin empirically. She does not have significant leukocytosis. Given her history of cancer and the ataxia she is having, I obtained CT of the head with and without contrast. I reviewed the images as well as the result which I agree with, it is negative for any acute abnormality including mass. Additionally evaluated for pneumonia and 1 view chest x-ray normal in my interpretation without pneumonia. She has been having symptoms for a week, so less likely she has had a cerebellar stroke as well, however as I discussed with her for both stroke and a mass after a week, an MRI would be more sensitive which we may need to admit her for. I discussed this with her and her sister now in the room, and the patient refuses admission and wants to go home. She states she has been doing ADLs all this past week since she has had the symptoms. She agrees to follow-up with her doctor Lab Data Attestation: I reviewed the patient's lab results. Labs: Laboratory Results - last 24 hr 03/22/24 03/22/24 03/22/24 12:53 15:13 15:25 WBC 8.5 RBC 4.16 L Hgb 12.9 Hct 39.0 MCV 93.8 MCH 31.0 MCHC 33.1 RDW Std Deviation 46.1 H RDW Coeff of Kavita 13.6 Plt Count 279 MPV 8.6 Immature Gran % (Auto) 1.200 H Neut % (Auto) 78.0 H Lymph % (Auto) 6.7 L Hardee % (Auto) 12.3 H Eos % (Auto) 1.3 Baso % (Auto) 0.5 Absolute Neuts (auto) 6.6 Absolute Lymphs (auto) 0.57 L Nucleated RBC % 0 Differential Comment SEE COMMENT Platelet Estimate ADEQUATE RBC Morphology N CHROM Anisocytosis 1+ Macrocytosis 1+ Sodium 138 Potassium 4.1 Chloride 105 Carbon Dioxide 24.0 Anion Gap 9 BUN 20 H Creatinine 1.12 H Estim Creat Clear Calc 59.97 Est GFR (MDRD) Af Amer 62 Est GFR (MDRD) Non-Af 51 L BUN/Creatinine Ratio 17.9 Glucose 136 H Lactic Acid 3.1 H* Calcium 9.6 Total Bilirubin 0.20 AST 27 ALT 29 Alkaline Phosphatase 95 Troponin I High Sens 11 Total Protein 7.2 Albumin 3.6 Globulin 3.6 Albumin/Globulin Ratio 1.0 Urine Color Straw Urine Clarity Sl. Cloudy Urine pH 5.0 Ur Specific [place] 1.020 Urine Protein 30 H Urine Glucose (UA) Normal Urine Ketones 5 H Urine Occult Blood 10 H Urine Nitrite Negative Urine Bilirubin 1 H Urine Urobilinogen 4 H Ur Leukocyte Esterase 500 H Urine RBC 0-5 SEEN Urine WBC 50-100 SEEN Ur Squamous Epith Cells 0-5 SEEN Urine Bacteria 1+ Urine Mucus 0 SEEN POC Glucose 213 H Radiography Diagnostic Testing: Clinical Impression(s) from Imaging Studies Brain CT 03/22/24 15:06 IMPRESSION: No acute intracranial abnormality. Electronically Signed: Ja Slater MD at 16:43 EST , Chest X-Ray 03/22/24 16:55 IMPRESSION: No acute cardiopulmonary pathology. Electronically Signed: Tony Hi MD at 17:27 EST , Rhythm Strip Rhythm Strip: Sinus Rhythm Rate: 90 Ectopy: None EKG Initial EKG: Attestation: I personally reviewed and interpreted this EKG as follows: Interpretation: Sinus Rhythm, No Acute Injury Pattern and Non-Specific ST Changes Discharge Plan Triage Chief Complaint: Weakness ED Provider: Praful Zambrano Dx/Rx/DC Orders Clinical Impression: Ataxia, Acute UTI, Disorientation Instructions: Urinary Tract Infections in Women Prescriptions: New sulfamethoxazole-trimethoprim 800-160 mg tablet 1 tab PO BID Qty: 14 0RF No Action dicyclomine 10 mg capsule 10 mg PO .FOUR TIMES DAILY gabapentin 100 mg capsule 300 mg PO TID PRN (Reason: Pain) pantoprazole 40 mg tablet,delayed release (DR/EC) 40 mg PO DAILY Qty: 30 2RF aspirin 81 MG tablet,chewable 81 mg PO DAILY@0800 Qty: 100 0RF Patient Comments: [facility] brimonidine-timolol 1 DROP bottle 1 drp RIGHT EYE BID metformin 500 mg tablet extended release 24 hr 500 mg PO BID Patient Comments: take 1 tablet by mouth twice a day dicyclomine 10 MG capsule 20 mg PO .q4-6h PRN (Reason: abdominal discomfort) Qty: 20 0RF oxycodone 10 mg tablet 5 mg PO Q4H PRN (Reason: Pain) ondansetron 4 mg tablet,disintegrating 4 mg PO Q8H PRN PRN (Reason: Nausea) Qty: 14 0RF Primary Care Provider: Donovan Hernandez Referrals: Donovan Hernandez MD [Primary Care Provider] - 3-5 Days Print Language: Citizen Of [place] Disposition Disposition: Home, Self Care
[2024-03-22 15:32] LABS: Mucous, Urine 0 SEEN /hpf (<or=2+)
[2024-03-22 15:34] LABS: Color, Urine Straw (Yellow); Glucose, Dipstick Normal (Normal); Ketone-Dipstick 5 mg/dl (Negative); Leukocyte Esterase-Dipstick 500 /ul (Negative); Nitrite-Dipstick Negative (Negative); Occult Blood-Urine 10 /ul (Negative); Protein-Dipstick 30 mg/dl (Negative); Urine Clarity Sl. Cloudy (Clear); Urine Urobilinogen 4 mg/dl (Normal)
[2024-03-22 15:37] LABS: Absolute Lymphocyte Count 0.57 X10^3/uL (0.83-4.51); Absolute Neutrophil Count 6.6 X10^3/uL (2.0-7.7); Basophil# 0.04 X10^3/uL; Basophil% 0.5 % (0-1); Eosinophil# 0.11 X10^3/uL; Eosinophils% 1.3 % (0-5); Hemoglobin 12.9 g/dL (12.0-15.0); Lymphocyte # 0.57 X10^3/ul (0.83-4.51); Lymphocyte % 6.7 % (19-41); Mean Corp Hgb Conc 33.1 g/dL (32-36); Mean Corpuscular Volume 93.8 fL (81-99); Mean Platelet Vol. 8.6 fl (6.2-12.0); Monocyte# 1.05 X10^3/uL; Monocyte% 12.3 % (0-10); NRBC Flagged by Analyzer 0 % (0-5); Neutrophil # 6.64 X10^3/uL (2.7-7.7); POSITIVE DIFFERENTIAL YES; Platelet Count 279 K/mm3 (150-450); RBC Distribution Width CV 13.6 % (11.6-14.6); RBC Distribution Width SD 46.1 fl (35.1-43.9); Red Blood Count 4.16 M/mm3 (4.2-5.4); White Blood Count 8.5 K/mm3 (4.4-11.0)
[2024-03-22 15:41] LABS: Differential Indicated SCAN CRITERIA MET
[2024-03-22 15:54] LABS: Urine Bilirubin Dipstick 1 mg/dL (Negative)
[2024-03-22 15:58] LABS: Bacteria 1+ /hpf (None Seen); White Blood Cells 50-100 SEEN /hpf (0-5)
[2024-03-22 16:00] VITALS: BP 173/97; PULSE 78; RESP 19
[2024-03-22 16:01] LABS: AST(SGOT) 27 U/L (15-37); Alanine Aminotransfer ALT/SGPT 29 U/L (13-56); Albumin, Serum 3.6 g/dL (3.2-5.0); Alkaline Phosphatase 95 U/L (45-117); Anion Gap 9 (5-15); BUN 20 mg/dL (7-18); BUN/Creat Ratio 17.9 RATIO (10-20); Calcium,Total 9.6 mg/dL (8.5-10.1); Chloride 105 mmol/L (98-107); Creatinine, Serum 1.12 mg/dL (0.55-1.02); EST Glomerular Filtration Rate 51 mL/min (>60); Est Glom Filt Rate - Afr Amer 62 mL/min (>60); Estimated Creatinine Clearance 59.97 ml/min; Globulin 3.6 g/dL (2.2-4.2); Glucose 136 mg/dL (74-106); Potassium 4.1 mmol/L (3.5-5.1); Protein, Total 7.2 g/dL (6.4-8.2); Sodium Level 138 mmol/L (136-145); Troponin-I HS 11 pg/mL (3.0-54.0)
[2024-03-22 16:01] LABS: Red Blood Cells-Urine 0-5 SEEN /hpf (0-5); Squamous Epithelial Cells - UA 0-5 SEEN /hpf (5-10)
[2024-03-22 16:14] LABS: Anisocytosis 1+; Macrocytosis 1+; Platelet Estimate ADEQUATE (ADEQ); Red Cell Morphology N CHROM NORMAL (NORM C&C)
[2024-03-22 16:24] LABS: Lactic Acid 3.1 mmol/L (0.4-1.9)
[2024-03-22] MEDS: Ceftriaxone 1 GM/50 ML BAG IV (16:41)
--- NOTE | 2024-03-22 16:55 | RAD_ITS ---
STUDY: X-RAY CHEST REASON FOR EXAM: Female, 68 years old. weakness TECHNIQUE: PA and lateral COMPARISON: January 26, 2019 FINDINGS: The lungs are clear and expanded. There is no demonstrated pleural abnormality. Normal size heart. Normal mediastinum and myriam. Normal visualized pulmonary arteries. Mildly calcified aortic arch and descending thoracic aorta. Mediport catheter noted on the right with tip at the atrial caval junction Dorsal spine demonstrates mild scoliosis or splinting and degenerative changes. Normal visualized ribs, clavicles, and shoulders. There is no demonstrated abnormality of the visualized soft tissue structures of the upper abdomen. RAD/Chest PA and Lateral IMPRESSION: No acute cardiopulmonary pathology. Electronically Signed: Tony Hi MD at 17:27 EST ,
[2024-03-22 18:00] VITALS: BP 163/77; PULSE 78; RESP 19
[2024-03-22] MEDS: Smz/Tmp Ds Tablet 1 TABLET PO (18:24)
[2024-03-22 19:31] LABS: Reflex Lactate? Y
== END 2024-03-22 18:29 | disposition home or self-care (01) ==
PROVIDERS: Emergency Provider Emergency Medicine; PCP Family Medicine; Visit Provider Emergency Medicine
DX: N39.0 Urinary tract infection, site not specified (principal); E11.9 Type 2 diabetes mellitus without complications; R26.0 Ataxic gait; R41.0 Disorientation, unspecified; I10 Essential (primary) hypertension; H40.9 Unspecified glaucoma; J45.909 Unspecified asthma, uncomplicated; Z92.3 Personal history of irradiation; Z92.21 Personal history of antineoplastic chemotherapy; Z85.42 Personal history of malignant neoplasm of other parts of uterus; Z86.73 Personal history of transient ischemic attack (TIA), and cerebral infarction without residual deficits; Z79.82 Long term (current) use of aspirin; Z79.84 Long term (current) use of oral hypoglycemic drugs; Z79.899 Other long term (current) drug therapy; Z87.891 Personal history of nicotine dependence
CPT/HCPCS: 70470; 71046; 80053; 81001; 82962; 83605; 84484; 85025; 87040; 87086; 93005; 96365; 99284; Q9967; A4216

== ENCOUNTER 2024-05-04 06:45 | Emergency (ER) | payer MEDICARE, SELFPAY ==
[2024-05-04 06:45] VITALS: BP 188/97; PULSE 119; RESP 14; TEMP 36.4; O2SAT 97; BMI 37.5
[2024-05-04 06:48] VITALS: BP 188/97; PULSE 118; RESP 16; TEMP 36.4; O2SAT 97
--- NOTE | 2024-05-04 07:06 | EX.ED.DYSGE1 ---
HPI History of Present Illness Chief Complaint: General Illness Informant: patient Onset/Context/Timing Onset: Days (4) Context: Gradual Onset Timing: Continuous Quality: Shaky Location: Generalized Worsened by: Nothing Relieved by: Pepto-Bismol Narrative Narrative: Patient presents with nausea, vomiting, diarrhea, and shaking that has been getting worse over the last 4 days. Patient states that the shaking started this morning. Patient states she has had nausea vomiting and diarrhea for the past 4 days. Patient states she started taking Pepto-Bismol which helped somewhat. Patient denies any abdominal pain. Patient denies any fevers or chills. Patient does admit to some pain in her right ear and some tinnitus. Patient admits to some urinary frequency but denies any dysuria or hematuria. [facility] Medical History Asthma HTN (hypertension), benign Diabetes s/p radiation Endometrial cancer Postmenopausal bleeding CVA (cerebral vascular accident) Mini stroke Glaucoma Home Medications ?Medication ?Instructions ?Recorded ?Last Taken ?Type aspirin 81 mg chewable tablet 81 mg PO DAILY@0800 ##100 05/06/14 12/18/17 Rx brimonidine 0.2 %-timolol 0.5 % 1 drp RIGHT EYE BID 12/19/17 12/19/17 History eye drops dicyclomine 10 mg capsule 10 mg PO 4X/DAY 09/21/18 Unknown History gabapentin 100 mg capsule 300 mg PO TID PRN Pain 09/21/18 Unknown History metformin 500 mg tablet,extended 500 mg PO BID 12/09/20 Unknown History release 24 hr ondansetron 4 mg disintegrating 4 mg PO Q8H PRN PRN Nausea #14 tabs 12/29/20 Unknown Rx tablet oxycodone 10 mg tablet 5 mg PO Q4H PRN Pain 04/29/23 Unknown History cephalexin 500 mg capsule 500 mg PO Q6 #12 CAPSULES 05/04/24 Unknown Rx gabapentin 300 mg capsule 300 mg PO Q12H 05/04/24 Unknown History lorazepam 1 mg tablet 1 mg PO TID 05/04/24 Unknown History Allergy/AdvReac Type Severity Reaction Status Date / Time morphine Allergy Anaphylaxis Verified 05/04/24 06:45 codeine AdvReac Upset Verified 05/04/24 06:45 Stomach Family History Father Colon cancer Heart disease Hypertension CVA (cerebral vascular accident) Mother Heart disease Hypertension Surgical History Hx of tonsillectomy Hx of hysterectomy delivery delivered Social History adopted: No household members: none number of children: 4 current occupational status: unemployed pets and animals: Yes Smoking Status: Former smoker Tobacco: How many years used: 20 alcohol intake: current alcohol intake frequency: holidays/special occasions only substance use type: does not use what type of physical activity do you participate in: walking seatbelt use: always do you feel safe at home: Yes ROS ROS ED Constitutional Constitutional ED: Denies chills or fever(s) Eyes Eyes: Reports blurry vision; Denies diplopia ENT ENT ED: Reports ear pain right; Denies rhinorrhea or sore throat Cardiovascular Cardiovascular: Denies chest pain or palpitations Respiratory/Chest Respiratory/Chest: Reports dyspnea; Denies cough Gastrointestinal Gastrointestinal: Reports diarrhea, nausea and vomiting; Denies melena Genitourinary Genitourinary ED: Reports urinary frequency; Denies dysuria or hematuria Musculoskeletal Musculoskeletal: Denies back pain or neck pain Integumentary Reports rash; Denies abscess Neurologic Neurologic: Denies headache(s) or weakness Allergic/Immunologic Allergic/Immunologic ED: Denies mouth swelling or urticaria EXAM Physical Exam Const Vital Signs: 05/04/24 06:45 05/04/24 06:48 Temperature 97.5 F L 97.5 F L Temperature Source Oral Oral Pulse Rate 119 H 118 H Respiratory Rate 14 16 Blood Pressure 188/97 H 188/97 H Blood Pressure Mean 127 127 Pulse Ox 97 97 Positive well nourished and well developed General Appearance ED: well developed and NAD HEENT Reports moist mucous membranes Neck supple and no JVD Resp normal respiratory effort and clear to auscultation bilaterally Cardio regular rhythm Rate: tachycardic GI non-tender and non-distended Palpation: soft Extremity General Extremety ED: Negative for edema or tenderness General Extremity: Negative for edema Neuro oriented x3, CN's II-XII intact bilaterally and no sensory deficits noted Sensorium / Orientation: alert Motor Exam: strength 5/5 throughout Psych mental status grossly normal MDM MDM MDM Narrative Medical decision making narrative: Differential diagnosis includes viral illness, gastroenteritis, electrolyte abnormality, hypoglycemia, hyperglycemia, urinary tract infection, pneumonia, cardiac dysrhythmia, cardiac ischemia, and anxiety. EKG will be obtained to assess for cardiac dysrhythmia and cardiac ischemia. Chest x-ray will be obtained to assess for pneumonia. CT scan of the abdomen pelvis will be obtained to assess for bowel obstruction and perforation. CBC will be obtained to assess for leukocytosis and anemia. Comprehensive metabolic profile will be obtained to assess for hepatic function, renal function, and electrolyte abnormality. Urinalysis will be obtained to assess for urinary tract infection and hematuria. COVID-19, influenza, and RSV PCR will be obtained to assess for viral illness. Lab Data Attestation: I reviewed the patient's lab results. Lab results narrative: CBC was reviewed. There is a mild leukocytosis of 11.2. The remainder is within normal limits. Comprehensive metabolic profile was reviewed. Creatinine was slightly elevated at 1.14. Glucose was mildly elevated at 259. Anion gap was normal. Sodium was slightly low at 132. High-sensitivity troponin was reviewed and was normal at 3. Urinalysis was reviewed. Leukocyte esterase was 500 with 50-100 white blood cells. There is 1+ bacteria. Labs: Laboratory Results - last 24 hr 05/04/24 05/04/24 06:58 07:47 WBC 11.2 H RBC 4.53 Hgb 14.1 Hct 41.2 MCV 90.9 MCH 31.1 MCHC 34.2 RDW Std Deviation 43.0 RDW Coeff of Kavita 13.1 Plt Count 334 MPV 8.6 Immature Gran % (Auto) 1.100 H Neut % (Auto) 86.3 H Lymph % (Auto) 5.1 L [place] % (Auto) 7.1 Eos % (Auto) 0.0 Baso % (Auto) 0.4 Absolute Neuts (auto) 9.7 H Absolute Lymphs (auto) 0.57 L Nucleated RBC % 0 Sodium 132 L Potassium 3.7 Chloride 101 Carbon Dioxide 18.0 L Anion Gap 13 BUN 15 Creatinine 1.14 H Estim Creat Clear Calc 58.05 Est GFR (MDRD) Af Amer 61 Est GFR (MDRD) Non-Af 50 L BUN/Creatinine Ratio 13.2 Glucose 259 H Calcium 9.2 Total Bilirubin 0.40 AST 14 L ALT 22 Alkaline Phosphatase 96 Troponin I High Sens 3 Total Protein 8.0 Albumin 3.9 Globulin 4.1 Albumin/Globulin Ratio 1.0 Urine Color Yellow Urine Clarity Sl. Cloudy Urine pH 5.0 Ur Specific [place] 1.020 Urine Protein 100 H Urine Glucose (UA) Normal Urine Ketones 15 H Urine Occult Blood 25 H Urine Nitrite Negative Urine Bilirubin Negative Urine Urobilinogen Normal Ur Leukocyte Esterase 500 H Urine RBC 0-5 SEEN Urine WBC 50-100 SEEN Ur Squamous Epith Cells 0-5 SEEN Urine Bacteria 1+ Urine Mucus 1+ EKG Initial EKG: Attestation: I personally reviewed and interpreted this EKG as follows: Interpretation: Sinus Tachycardia (111) and Non-Specific ST Changes Comments: EKG was obtained. On my independent interpretation, it showed a sinus tachycardia with a rate of 111. HI interval, QRS interval, and QTc intervals were all normal. [place] was normal. There are nonspecific ST-T wave changes. Prior EKG tracings: available for review Prior: Unchanged (03/22/2024) Additional Tests and Interventions Additional Tests or Interventions: Urine culture was ordered. Treatment and Re-Evaluation :: Patient was given IV fluids and Zofran. Patient was feeling better on reevaluation. Patient was advised of her findings. Patient was given a dose of Keflex here. Patient was given a prescription for Keflex. Patient was instructed to drink plenty of fluids. Patient was instructed to follow-up with her primary care physician as scheduled. Patient understood and was agreeable with the plan. All questions were answered. Discharge Plan Triage Chief Complaint: General Illness ED Provider: Cayetano Gregorio Dx/Rx/DC Orders Clinical Impression: Urinary tract infection, Elevated blood pressure reading without diagnosis of hypertension, Diabetes mellitus Instructions: ED Cystitis Female Adult Prescriptions: New cephalexin 500 mg capsule 500 mg PO Q6 Qty: 12 0RF No Action dicyclomine 10 mg capsule 10 mg PO 4X/DAY gabapentin 100 mg capsule 300 mg PO TID PRN (Reason: Pain) aspirin 81 MG tablet,chewable 81 mg PO DAILY@0800 Qty: 100 0RF Patient Comments: [facility] brimonidine-timolol 1 DROP bottle 1 drp RIGHT EYE BID metformin 500 mg tablet extended release 24 hr 500 mg PO BID Patient Comments: take 1 tablet by mouth twice a day oxycodone 10 mg tablet 5 mg PO Q4H PRN (Reason: Pain) ondansetron 4 mg tablet,disintegrating 4 mg PO Q8H PRN PRN (Reason: Nausea) Qty: 14 0RF gabapentin 300 mg capsule 300 mg PO Q12H lorazepam 1 mg tablet 1 mg PO TID Primary Care Provider: Donovan Hernandez Referrals: Donovan Hernandez MD [Primary Care Provider] - Keep Benigno appointment Print Language: Moldovan Disposition Disposition: Home, Self Care
[2024-05-04 07:27] LABS: Absolute Lymphocyte Count 0.57 X10^3/uL (0.83-4.51); Absolute Neutrophil Count 9.7 X10^3/uL (2.0-7.7); Basophil# 0.04 X10^3/uL; Basophil% 0.4 % (0-1); Hematocrit 41.2 % (37-47); Hemoglobin 14.1 g/dL (12.0-15.0); Lymphocyte # 0.57 X10^3/ul (0.83-4.51); Lymphocyte % 5.1 % (19-41); Mean Corp Hgb Conc 34.2 g/dL (32-36); Mean Corpuscular Hgb 31.1 pg (27.0-32.0); Mean Corpuscular Volume 90.9 fL (81-99); Mean Platelet Vol. 8.6 fl (6.2-12.0); Monocyte# 0.79 X10^3/uL; Monocyte% 7.1 % (0-10); NRBC Flagged by Analyzer 0 % (0-5); Neutrophil # 9.65 X10^3/uL (2.7-7.7); Neutrophil % 86.3 % (47-70); POSITIVE DIFFERENTIAL YES; Platelet Count 334 K/mm3 (150-450); RBC Distribution Width CV 13.1 % (11.6-14.6); Red Blood Count 4.53 M/mm3 (4.2-5.4); White Blood Count 11.2 K/mm3 (4.4-11.0)
[2024-05-04] MEDS: Ondansetron 4 MG/2 ML Vial IV (07:39)
[2024-05-04] MEDS: 0.9% Normal Saline (1000mL) 1,000 ML 999 ML IV (07:39)
[2024-05-04 07:53] LABS: Color, Urine Yellow (Yellow); Glucose, Dipstick Normal (Normal); Ketone-Dipstick 15 mg/dl (Negative); Leukocyte Esterase-Dipstick 500 /ul (Negative); Nitrite-Dipstick Negative (Negative); Occult Blood-Urine 25 /ul (Negative); Protein-Dipstick 100 mg/dl (Negative); Urine Bilirubin Dipstick Negative (Negative); Urine Clarity Sl. Cloudy (Clear); Urine Urobilinogen Normal (Normal)
[2024-05-04 07:58] LABS: AST(SGOT) 14 U/L (15-37); Alanine Aminotransfer ALT/SGPT 22 U/L (13-56); Albumin, Serum 3.9 g/dL (3.2-5.0); Alkaline Phosphatase 96 U/L (45-117); Anion Gap 13 (5-15); BUN 15 mg/dL (7-18); BUN/Creat Ratio 13.2 RATIO (10-20); Calcium,Total 9.2 mg/dL (8.5-10.1); Chloride 101 mmol/L (98-107); Creatinine, Serum 1.14 mg/dL (0.55-1.02); EST Glomerular Filtration Rate 50 mL/min (>60); Est Glom Filt Rate - Afr Amer 61 mL/min (>60); Estimated Creatinine Clearance 58.05 ml/min; Globulin 4.1 g/dL (2.2-4.2); Glucose 259 mg/dL (74-106); Potassium 3.7 mmol/L (3.5-5.1); Sodium Level 132 mmol/L (136-145); Troponin-I HS 3 pg/mL (3.0-54.0)
[2024-05-04 08:04] LABS: Red Blood Cells-Urine 0-5 SEEN /hpf (0-5); White Blood Cells 50-100 SEEN /hpf (0-5)
[2024-05-04 08:05] LABS: Bacteria 1+ /hpf (None Seen); Mucous, Urine 1+ /hpf (<or=2+); Squamous Epithelial Cells - UA 0-5 SEEN /hpf (5-10)
[2024-05-04] MEDS: Cephalexin 500 MG Capsule PO (08:18)
[2024-05-04 08:45] VITALS: BP 134/78; PULSE 64; RESP 18; TEMP 37.1; O2SAT 99
== END 2024-05-04 08:59 | disposition home or self-care (01) ==
PROVIDERS: Emergency Provider Emergency Medicine; PCP Family Medicine; Visit Provider Emergency Medicine
DX: N39.0 Urinary tract infection, site not specified (principal); E11.9 Type 2 diabetes mellitus without complications; H93.11 Tinnitus, right ear; R03.0 Elevated blood-pressure reading, without diagnosis of hypertension; H40.9 Unspecified glaucoma; Z92.3 Personal history of irradiation; Z85.42 Personal history of malignant neoplasm of other parts of uterus; Z86.73 Personal history of transient ischemic attack (TIA), and cerebral infarction without residual deficits; Z79.84 Long term (current) use of oral hypoglycemic drugs; Z79.82 Long term (current) use of aspirin; Z79.899 Other long term (current) drug therapy; Z87.891 Personal history of nicotine dependence
CPT/HCPCS: 80053; 81001; 84484; 85025; 87086; 87088; 93005; 96361; 96374; 99284; A4216; J2405

== ENCOUNTER 2024-07-18 16:12 | Emergency (ER) | payer MEDICARE, SELFPAY ==
[2024-07-18] VITALS (7 sets, daily range): BP systolic 157–203; BP diastolic 93–115; PULSE 82–108; RESP 12–22; TEMP 36.2–37; O2SAT 96–98; BMI 34.2
--- NOTE | 2024-07-18 16:28 | EKG12_ITS ---
Test Reason : GENERAL Blood Pressure : */* mmHG Vent. Rate : 97 BPM Atrial Rate : 97 BPM P-R Int : 150 ms QRS Dur : 92 ms QT Int : 364 ms P-R-T Axes : 49 37 72 degrees QTcB Int : 462 ms Normal sinus rhythm Nonspecific ST abnormality Abnormal ECG Confirmed by TOM ALBRIGHT, TIKI ([id number]), writer editor CHESTER ORTIZ ([id number]) on 07/20/2024 8:25:47 AM Referred By: Confirmed By: TIKI SANTOS MD
--- NOTE | 2024-07-18 16:31 | EX.ED.DYSGE1 ---
HPI History of Present Illness Chief Complaint: General Illness Informant: patient and family Narrative Narrative: Presents to ED decreased appetite for the past 3 days. No nausea or vomiting. States had diarrhea at that time this resolved nonbloody. Since then dyspnea cough sinus drainage myalgias. Denies fever headache reports chills. Denies urinary symptoms. Over states had urinary infections without symptoms in the past. No abdominal pain. History uterine cancer chemotherapy however last time more than a year ago. States chemo therapy led to bone pains. Denies sick contacts. She is tolerating oral fluids. Denies recent travel surgeries or immobilizations. No history of PE or DVT. [facility] Medical History Asthma HTN (hypertension), benign Diabetes s/p radiation Endometrial cancer Postmenopausal bleeding CVA (cerebral vascular accident) Mini stroke Glaucoma Home Medications ?Medication ?Instructions ?Recorded ?Last Taken ?Type aspirin 81 mg chewable tablet 81 mg PO DAILY@0800 ##100 05/06/14 12/18/17 Rx brimonidine 0.2 %-timolol 0.5 % 1 drp RIGHT EYE BID 12/19/17 12/19/17 History eye drops dicyclomine 10 mg capsule 10 mg PO 4X/DAY 09/21/18 Unknown History gabapentin 100 mg capsule 300 mg PO TID PRN Pain 09/21/18 Unknown History metformin 500 mg tablet,extended 500 mg PO BID 12/09/20 Unknown History release 24 hr ondansetron 4 mg disintegrating 4 mg PO Q8H PRN PRN Nausea #14 tabs 12/29/20 Unknown Rx tablet oxycodone 10 mg tablet 5 mg PO Q4H PRN Pain 04/29/23 Unknown History gabapentin 300 mg capsule 300 mg PO Q12H 05/04/24 Unknown History lorazepam 1 mg tablet 1 mg PO TID 05/04/24 Unknown History albuterol sulfate 90 mcg/actuation inhalation 07/18/24 Unknown History aerosol inhaler loratadine 10 mg tablet 10 mg PO DAILY #14 tabs 07/18/24 Unknown Rx meloxicam 7.5 mg tablet 7.5 mg PO DAILY 07/18/24 Unknown History omeprazole 40 mg capsule,delayed 40 mg PO 07/18/24 Unknown History release oxycodone 5 mg tablet 5 mg PO Q4H PRN PRN severe pain 07/18/24 Unknown History trazodone 100 mg tablet 100 mg PO QHS 07/18/24 Unknown History Allergy/AdvReac Type Severity Reaction Status Date / Time morphine Allergy Anaphylaxis Verified 07/18/24 16:14 codeine AdvReac Upset Verified 07/18/24 16:14 Stomach Family History Father Colon cancer Heart disease Hypertension CVA (cerebral vascular accident) Mother Heart disease Hypertension Surgical History Hx of tonsillectomy Hx of hysterectomy delivery delivered Social History adopted: No household members: none number of children: 4 current occupational status: unemployed pets and animals: Yes Smoking Status: Former smoker Tobacco: How many years used: 20 alcohol intake: current alcohol intake frequency: holidays/special occasions only substance use type: does not use what type of physical activity do you participate in: walking seatbelt use: always do you feel safe at home: Yes ROS ROS ED Constitutional Constitutional ED: Reports chills; Denies fever(s) or sweats ENT ENT ED: Reports other Details: Sinus drainage ; Denies sore throat Cardiovascular Cardiovascular: Denies chest pain, leg edema, palpitations or racing heartbeat Respiratory/Chest Respiratory/Chest: Reports cough and dyspnea; Denies dyspnea on exertion Gastrointestinal Gastrointestinal: Reports other Details: Decreased appetite ; Denies abdominal pain, diarrhea, nausea or vomiting Genitourinary Genitourinary ED: Denies dysuria, hematuria or urinary frequency Musculoskeletal Musculoskeletal: Reports myalgias; Denies back pain, extremity pain or neck pain Integumentary Denies rash or wounds Neurologic Neurologic: Denies headache(s), paresthesias or weakness EXAM Physical Exam Const Vital Signs: 07/18/24 16:12 07/18/24 16:31 07/18/24 16:32 Temperature 97.1 F L 98.6 F Temperature Source Temporal Oral Pulse Rate 108 H 102 H Respiratory Rate 20 H 22 H Respiratory Effort Normal Respiratory Pattern Normal Blood Pressure 168/115 H 203/114 H Blood Pressure Mean 132 143 Pulse Ox 98 98 Oxygen Delivery Method Room Air Room Air 07/18/24 16:34 07/18/24 16:59 07/18/24 17:14 Temperature 98.6 F Temperature Source Oral Pulse Rate 100 97 85 Respiratory Rate 15 16 12 Respiratory Effort Respiratory Pattern Blood Pressure 203/114 H 157/102 H Blood Pressure Mean 143 120 Pulse Ox 98 97 97 Oxygen Delivery Method Room Air Room Air Room Air 07/18/24 18:00 Temperature 98.2 F Temperature Source Oral Pulse Rate 82 Respiratory Rate 16 Respiratory Effort Respiratory Pattern Blood Pressure 169/93 H Blood Pressure Mean 114 Pulse Ox 96 Oxygen Delivery Method MDM MDM MDM Narrative Medical decision making narrative: Interventions / MDM: Differential diagnosis: Viral syndrome, sinus congestion Diagnosis considered but do not suspect: Pneumonia however chest x-ray negative. My EKG interpretation: Sinus rhythm 97, no ST changes, QTc 462. Imaging independently reviewed and interpreted by myself: 2 view chest x-ray: No acute process. External documents reviewed: N/A Test considered but not ordered:N/A ED course: Upper respiratory illness symptoms with decreased appetite. Check EKG, labs and urine. COVID flu and RSV sent for further evaluation. IV fluids ordered. 1800: Chest x-ray negative labs are stable. Sodium 131, last sodium 132. Urine had leukocytes of 100, 5-10 WBCs with no epithelials. Will send for urine culture. Clinically feeling better. Awaiting viral swabs at this time. 1900: COVID flu and RSV negative. Patient ambulated 98% on room air. She is able to tolerate Oral intake and snack in the ED. She has humidifier at home. Meds to bed with loratadine to help with congestion. Discussed viral syndrome with the patient. She will continue oral fluids for hydration at home. Outpatient follow with her doctor. All questions were answered. Re-evaluation: stable Disposition discussed with patient/family/significant other: Patient and family Case discussed with consulting clinician: N/A This note was generated with [employer] dictation software. It may contain incorrect words, spelling, and punctuation that were not noted in checking the note before signing. Lab Data Attestation: I reviewed the patient's lab results. Labs: Laboratory Results - last 24 hr 07/18/24 07/18/24 07/18/24 16:20 16:30 16:41 WBC 10.7 RBC 4.61 Hgb 14.3 Hct 42.2 MCV 91.5 MCH 31.0 MCHC 33.9 RDW Std Deviation 46.5 H RDW Coeff of Kavita 13.8 Plt Count 465 H MPV 8.4 Immature Gran % (Auto) 1.000 H Neut % (Auto) 82.2 H Lymph % (Auto) 8.0 L [place] % (Auto) 7.9 Eos % (Auto) 0.3 Baso % (Auto) 0.6 Absolute Neuts (auto) 8.8 H Absolute Lymphs (auto) 0.86 Nucleated RBC % 0 Sodium 131 L Potassium 4.3 Chloride 97 L Carbon Dioxide 14.7 L Anion Gap 20 H BUN 12 Creatinine 1.07 Estim Creat Clear Calc 58.86 Est GFR (MDRD) Non-Af 57 L BUN/Creatinine Ratio 11.6 Glucose 216 H Calcium 9.8 Urine Color Yellow Urine Clarity Clear Urine pH 5.0 Ur Specific [place] 1.025 Urine Protein 30 H Urine Glucose (UA) Normal Urine Ketones Negative Urine Occult Blood 10 H Urine Nitrite Negative Urine Bilirubin 1 H Urine Urobilinogen Normal Ur Leukocyte Esterase 100 H Urine RBC 0-5 SEEN Urine WBC 5-10 SEEN Ur Squamous Epith Cells 0-5 SEEN Urine Bacteria 0 SEEN Urine Mucus 0 SEEN POC Glucose 225 H Radiography Diagnostic Testing: Clinical Impression(s) from Imaging Studies Chest X-Ray 07/18/24 16:45 IMPRESSION: NO ACUTE FINDINGS. Reading Location: [facility] Discharge Plan Triage Chief Complaint: General Illness ED Provider: Chuy Kinney Dx/Rx/DC Orders Clinical Impression: Acute viral syndrome, Sinus congestion, Cough Instructions: ED URI, Viral, No Abx (Adult) Prescriptions: New loratadine 10 mg tablet 10 mg PO DAILY Qty: 14 0RF No Action dicyclomine 10 mg capsule 10 mg PO 4X/DAY gabapentin 100 mg capsule 300 mg PO TID PRN (Reason: Pain) aspirin 81 MG tablet,chewable 81 mg PO DAILY@0800 Qty: 100 0RF Patient Comments: [facility] brimonidine-timolol 1 DROP bottle 1 drp RIGHT EYE BID metformin 500 mg tablet extended release 24 hr 500 mg PO BID Patient Comments: take 1 tablet by mouth twice a day oxycodone 10 mg tablet 5 mg PO Q4H PRN (Reason: Pain) ondansetron 4 mg tablet,disintegrating 4 mg PO Q8H PRN PRN (Reason: Nausea) Qty: 14 0RF gabapentin 300 mg capsule 300 mg PO Q12H lorazepam 1 mg tablet 1 mg PO TID omeprazole 40 mg capsule,delayed release(DR/EC) 40 mg PO meloxicam 7.5 mg tablet 7.5 mg PO DAILY trazodone 100 mg tablet 100 mg PO QHS albuterol sulfate 90 mcg/actuation HFA aerosol inhaler inhalation oxycodone 5 mg tablet 5 mg PO Q4H PRN PRN (Reason: severe pain) Primary Care Provider: Donovan Hernandez Referrals: Donovan Hernandez MD [Primary Care Provider] - 1 Week if not improving Activity Restrictions/Additional Instructions: EKG normal chest x-ray normal labs stable. COVID, flu, RSV negative. Urine culture sent and you will be contacted if antibiotics were needed. Continue oral fluids for hydration. Use humidifier at home. Use medication to help with congestion. Follow-up with your doctor. Print Language: Bulgarian Disposition Disposition: Home, Self Care
--- NOTE | 2024-07-18 16:45 | RAD_ITS ---
PROCEDURE: CHEST PA AND LATERAL 07/18/2024 REASON FOR EXAM: 68-year-old female, COUGH TECHNIQUE: Frontal and lateral views of the chest. COMPARISON: Chest radiograph 03/22/2024. FINDINGS: Hardware: Stable right chest port with tip terminating in the SVC. Heart: The heart size is normal. Mediastinum: The mediastinal contour is unremarkable. Lungs: No focal consolidation, pleural effusion or pneumothorax. Bones: Degenerative changes are identified within the thoracic spine. RAD/Chest PA and Lateral IMPRESSION: NO ACUTE FINDINGS. Reading Location: [facility]
[2024-07-18 16:46] LABS: Bacteria 0 SEEN /hpf (None Seen); Mucous, Urine 0 SEEN /hpf (<or=2+)
[2024-07-18 16:48] LABS: Absolute Lymphocyte Count 0.86 X10^3/uL (0.83-4.51); Absolute Neutrophil Count 8.8 X10^3/uL (2.0-7.7); Basophil# 0.06 X10^3/uL; Basophil% 0.6 % (0-1); Eosinophil# 0.03 X10^3/uL; Eosinophils% 0.3 % (0-5); Hematocrit 42.2 % (37-47); Hemoglobin 14.3 g/dL (12.0-15.0); Lymphocyte # 0.86 X10^3/ul (0.83-4.51); Mean Corp Hgb Conc 33.9 g/dL (32-36); Mean Corpuscular Volume 91.5 fL (81-99); Mean Platelet Vol. 8.4 fl (6.2-12.0); Monocyte# 0.85 X10^3/uL; Monocyte% 7.9 % (0-10); NRBC Flagged by Analyzer 0 % (0-5); Neutrophil # 8.82 X10^3/uL (2.7-7.7); Neutrophil % 82.2 % (47-70); Platelet Count 465 K/mm3 (150-450); RBC Distribution Width CV 13.8 % (11.6-14.6); RBC Distribution Width SD 46.5 fl (35.1-43.9); Red Blood Count 4.61 M/mm3 (4.2-5.4); White Blood Count 10.7 K/mm3 (4.4-11.0)
[2024-07-18 16:49] LABS: Color, Urine Yellow (Yellow); Glucose, Dipstick Normal (Normal); Ketone-Dipstick Negative (Negative); Leukocyte Esterase-Dipstick 100 /ul (Negative); Nitrite-Dipstick Negative (Negative); Occult Blood-Urine 10 /ul (Negative); Protein-Dipstick 30 mg/dl (Negative); Specific Gravity, Urine 1.025 (1.002-1.030); Urine Clarity Clear (Clear); Urine Urobilinogen Normal (Normal)
[2024-07-18 16:49] LABS: Bedside Glucose 225 mg/dL (74-106)
[2024-07-18] MEDS: 0.9% Normal Saline (1000mL) 1,000 ML 1000 ML IV (16:52)
[2024-07-18 17:06] LABS: Anion Gap 20 (5-15); BUN 12 mg/dL (4-19); BUN/Creat Ratio 11.6 RATIO (10-20); Calcium,Total 9.8 mg/dL (7.6-11.0); Carbon Dioxide 14.7 mmol/L (21.0-32.0); Chloride 97 mmol/L (98-108); Creatinine, Serum 1.07 mg/dL (0.70-1.20); EST Glomerular Filtration Rate 57 (>60); Estimated Creatinine Clearance 58.86 ml/min (50-250); Glucose 216 mg/dL (70-99); Potassium 4.3 mmol/L (3.3-5.1); Sodium Level 131 mmol/L (133-145)
[2024-07-18 17:10] LABS: Urine Bilirubin Dipstick 1 mg/dL (Negative)
[2024-07-18 17:11] LABS: Red Blood Cells-Urine 0-5 SEEN /hpf (0-5); Squamous Epithelial Cells - UA 0-5 SEEN /hpf (5-10); White Blood Cells 5-10 SEEN /hpf (0-5)
--- NOTE | 2024-07-18 18:23 | ED.RN ---
1820: LAB CALLED FOR OUTSTANDING MICRO SWAB. RESPONSE IT IS RESULTED. WE WILL ENTER IT
--- NOTE | 2024-07-18 19:24 | ED.RN ---
pt refused meds to beds stated she can get it over the counter.Pt was dressed and just wanted to leave.
== END 2024-07-18 19:26 | disposition home or self-care (01) ==
PROVIDERS: Emergency Provider Emergency Medicine; PCP Family Medicine; Visit Provider Emergency Medicine
DX: B34.9 Viral infection, unspecified (principal); E11.9 Type 2 diabetes mellitus without complications; R05.9 Cough, unspecified; R09.81 Nasal congestion; I10 Essential (primary) hypertension; H40.9 Unspecified glaucoma; J45.909 Unspecified asthma, uncomplicated; Z85.42 Personal history of malignant neoplasm of other parts of uterus; Z92.21 Personal history of antineoplastic chemotherapy; Z86.73 Personal history of transient ischemic attack (TIA), and cerebral infarction without residual deficits; Z79.82 Long term (current) use of aspirin; Z79.84 Long term (current) use of oral hypoglycemic drugs; Z79.899 Other long term (current) drug therapy; Z87.891 Personal history of nicotine dependence
CPT/HCPCS: 71046; 80048; 81001; 82962; 85025; 87086; 87088; 87631; 93005; 96360; 99284; A4216

== ENCOUNTER → 2024-08-05 | Outpatient (CLI) | payer MEDICARE, SELFPAY ==
[2024-08-05 16:07] LABS: Anion Gap 18 (5-15); BUN 11 mg/dL (4-19); BUN/Creat Ratio 12.7 RATIO (10-20); Calcium,Total 9.3 mg/dL (7.6-11.0); Carbon Dioxide 17.7 mmol/L (21.0-32.0); Chloride 103 mmol/L (98-108); Creatinine, Serum 0.87 mg/dL (0.70-1.20); EST Glomerular Filtration Rate 73 (>60); Glucose 151 mg/dL (70-99); Potassium 3.3 mmol/L (3.3-5.1); Sodium Level 138 mmol/L (133-145)
[2024-08-05 16:58] LABS: Osmolality, Serum 291 mOsm/KG (280-301)
== END | disposition home or self-care (01) ==
LOC: MTLAB 11:22
PROVIDERS: PCP Family Medicine; Referring Provider Family Medicine; Visit Provider Family Medicine
DX: E87.1 Hypo-osmolality and hyponatremia (principal)
CPT/HCPCS: 36415; 80048; 83930; 84443

== ENCOUNTER → 2024-08-19 | Outpatient (CLI) | payer MEDICARE, SELFPAY ==
--- NOTE | 2024-08-19 11:40 | RAD_ITS ---
PROCEDURE: ACUTE ABDOMEN INC CHEST 08/19/2024 REASON FOR EXAM: VOMITING TECHNIQUE: Single view chest with 2 supine and upright views of the abdomen to include the entire abdomen and pelvis, 5 total images. COMPARISON: 07/18/2024 FINDINGS: Right port again noted. The lungs appear clear. Cardiac and mediastinal contours appear within limits. No evidence of free air identified. The bowel gas pattern appears nonspecific. No gaseous distention of bowel. Moderate amount of fecal material. Lower lumbar spondylosis. Surgical clips at the pelvis. Mild S shaped spinal curvature. RAD/Acute Abdomen Inc Chest IMPRESSION: No evidence of free air identified. The bowel gas pattern appears nonspecific. No gaseous distention of bowel. Moderate amount of fecal material. Reading Location: [id number]
[2024-08-19 15:20] LABS: Absolute Lymphocyte Count 0.89 X10^3/uL (0.83-4.51); Absolute Neutrophil Count 10.8 X10^3/uL (2.0-7.7); Basophil# 0.07 X10^3/uL; Basophil% 0.5 % (0-1); Eosinophil# 0.13 X10^3/uL; Hematocrit 42.8 % (37-47); Hemoglobin 14.3 g/dL (12.0-15.0); Lymphocyte # 0.89 X10^3/ul (0.83-4.51); Lymphocyte % 6.8 % (19-41); Mean Corp Hgb Conc 33.4 g/dL (32-36); Mean Corpuscular Hgb 31.1 pg (27.0-32.0); Mean Platelet Vol. 9.1 fl (6.2-12.0); Monocyte# 1.15 X10^3/uL; Monocyte% 8.8 % (0-10); NRBC Flagged by Analyzer 0 % (0-5); Neutrophil # 10.77 X10^3/uL (2.7-7.7); Neutrophil % 82.2 % (47-70); Platelet Count 389 K/mm3 (150-450); RBC Distribution Width CV 14.8 % (11.6-14.6); RBC Distribution Width SD 50.8 fl (35.1-43.9); White Blood Count 13.1 K/mm3 (4.4-11.0)
[2024-08-19 15:45] LABS: Erythrocyte Sedimentation Rate 45 mm/hr (0-30)
[2024-08-19 16:11] LABS: ALB/GLOB Ratio 1.4 RATIO (0.9-2.4); AST(SGOT) 18 U/L (<=31); Alanine Aminotransfer ALT/SGPT 10 U/L (<=34); Albumin, Serum 4.3 g/dL (3.4-4.8); Alkaline Phosphatase 105 U/L (35-104); Amylase 29 U/L (28-100); Anion Gap 18 (5-15); BUN 15 mg/dL (4-19); BUN/Creat Ratio 13.5 RATIO (10-20); Calcium,Total 9.9 mg/dL (7.6-11.0); Carbon Dioxide 15.1 mmol/L (21.0-32.0); Chloride 100 mmol/L (98-108); EST Glomerular Filtration Rate 55 (>60); Globulin 3.2 g/dL (2.2-4.2); Glucose 169 mg/dL (70-99); Lipase 26 U/L (13-75); Potassium 4.1 mmol/L (3.3-5.1); Protein, Total 7.5 g/dL (5.9-8.4); Sodium Level 133 mmol/L (133-145); Total Bilirubin 0.32 mg/dL (0.00-1.30)
== END | disposition home or self-care (01) ==
LOC: MTLAB 11:36
PROVIDERS: PCP Family Medicine; Referring Provider Family Medicine; Visit Provider Family Medicine
DX: R11.10 Vomiting, unspecified (principal); K21.9 Gastro-esophageal reflux disease without esophagitis
CPT/HCPCS: 36415; 74022; 80053; 82150; 83690; 85025; 85652

== ENCOUNTER → 2024-09-01 | Outpatient (CLI) | payer MEDICARE, SELFPAY ==
[2024-09-01 15:30] LABS: Absolute Lymphocyte Count 0.58 X10^3/uL (0.83-4.51); Absolute Neutrophil Count 5.8 X10^3/uL (2.0-7.7); Basophil# 0.09 X10^3/uL; Basophil% 1.1 % (0-1); Eosinophil# 1.03 X10^3/uL; Hematocrit 39.6 % (37-47); Hemoglobin 13.1 g/dL (12.0-15.0); Lymphocyte # 0.58 X10^3/ul (0.83-4.51); Lymphocyte % 6.8 % (19-41); Mean Corp Hgb Conc 33.1 g/dL (32-36); Mean Corpuscular Hgb 31.7 pg (27.0-32.0); Mean Corpuscular Volume 95.9 fL (81-99); Mean Platelet Vol. 9.4 fl (6.2-12.0); Monocyte# 0.87 X10^3/uL; Monocyte% 10.2 % (0-10); NRBC Flagged by Analyzer 0 % (0-5); Neutrophil # 5.81 X10^3/uL (2.7-7.7); Neutrophil % 67.7 % (47-70); POSITIVE DIFFERENTIAL YES; Platelet Count 302 K/mm3 (150-450); RBC Distribution Width CV 14.9 % (11.6-14.6); RBC Distribution Width SD 53.1 fl (35.1-43.9); Red Blood Count 4.13 M/mm3 (4.2-5.4); White Blood Count 8.6 K/mm3 (4.4-11.0)
[2024-09-01 16:04] LABS: Erythrocyte Sedimentation Rate 16 mm/hr (0-30)
[2024-09-01 17:01] LABS: ALB/GLOB Ratio 1.4 RATIO (0.9-2.4); AST(SGOT) 21 U/L (<=31); Alanine Aminotransfer ALT/SGPT 13 U/L (<=34); Albumin, Serum 3.8 g/dL (3.4-4.8); Alkaline Phosphatase 95 U/L (35-104); Anion Gap 15 (5-15); BUN 14 mg/dL (4-19); BUN/Creat Ratio 15.1 RATIO (10-20); Calcium,Total 9.4 mg/dL (7.6-11.0); Chloride 103 mmol/L (98-108); EST Glomerular Filtration Rate 70 (>60); Ferritin 231 ng/mL (22-378); Globulin 2.8 g/dL (2.2-4.2); Glucose 144 mg/dL (70-99); Potassium 4.2 mmol/L (3.3-5.1); Protein, Total 6.6 g/dL (5.9-8.4); Sodium Level 138 mmol/L (133-145); Total Bilirubin 0.21 mg/dL (0.00-1.30); Vitamin B12 427 pg/mL (180-914); Vitamin D,25 Hydroxy 13.8 ng/mL (30-100)
[2024-09-01 17:22] LABS: CRP 8.06 mg/L (0.0-3.0); Iron 72 ug/dL (50-170)
== END | disposition home or self-care (01) ==
LOC: MTLAB 11:47
PROVIDERS: PCP Family Medicine; Referring Provider Family Medicine; Visit Provider Family Medicine
DX: R10.9 Unspecified abdominal pain (principal); R26.81 Unsteadiness on feet; R53.83 Other fatigue
CPT/HCPCS: 36415; 80053; 82306; 82533; 82607; 82728; 83540; 84443; 85025; 85652; 86140

== ENCOUNTER 2024-10-17 12:27 | Emergency (ER) | payer MEDICARE, SELFPAY ==
[2024-10-17 12:27] VITALS: BP 163/94; PULSE 103; RESP 18; TEMP 36.6; O2SAT 98; BMI 22.8
--- NOTE | 2024-10-17 12:40 | ED.VIS.GI ---
HPI HPI - GI History of Present Illness Chief Complaint: Nausea/Vomiting Detail of Chief Complaint: Nausea, vomiting and diarrhea since . Informant: patient Nausea/Vomiting/Emesis GI Symptom: Positive for Nausea and Vomiting Onset: Days Severity: Moderate Diarrhea/Melena/Hematochezia GI Symptom: Positive for Diarrhea Onset: Days Severity: Mild Associated Symptoms Associated Symptoms: Negative for Dysuria, Frequency, Hematuria or Urgency Narrative Narrative: 69-year-old female history of diabetes, hypertension for endometrial cancer with metastases to her lungs. She has undergone a total hysterectomy and chemotherapy. Currently not on chemotherapy. States since she has had nausea and vomiting intermittently occasional diarrhea. Denies really any abdominal pain denies any hematemesis or melena. No fever or dysuria. States when she throws up looks green. Not coffee-ground. Not bloody. Denies any significant abdominal pain. No fever. Prior similar symptoms: Yes Recent Illness/Hospitalization: No PFSH PFSH Medical History Asthma HTN (hypertension), benign Diabetes s/p radiation Endometrial cancer Postmenopausal bleeding CVA (cerebral vascular accident) Mini stroke Glaucoma Home Medications ?Medication ?Instructions ?Recorded ?Last Taken ?Type aspirin 81 mg chewable tablet 81 mg PO DAILY@0800 ##100 05/06/14 12/18/17 Rx brimonidine 0.2 %-timolol 0.5 % 1 drp RIGHT EYE BID 12/19/17 12/19/17 History eye drops gabapentin 100 mg capsule 300 mg PO TID PRN Pain 09/21/18 Unknown History metformin 500 mg tablet,extended 500 mg PO BID 12/09/20 Unknown History release 24 hr ondansetron 4 mg disintegrating 4 mg PO Q8H PRN PRN Nausea #14 tabs 12/29/20 Unknown Rx tablet oxycodone 10 mg tablet 5 mg PO Q4H PRN Pain 04/29/23 Unknown History gabapentin 300 mg capsule 300 mg PO Q12H 05/04/24 Unknown History lorazepam 1 mg tablet 1 mg PO TID 05/04/24 Unknown History albuterol sulfate 90 mcg/actuation inhalation 07/18/24 Unknown History aerosol inhaler loratadine 10 mg tablet 10 mg PO DAILY #14 tabs 07/18/24 Unknown Rx meloxicam 7.5 mg tablet 7.5 mg PO DAILY 07/18/24 Unknown History omeprazole 40 mg capsule,delayed 40 mg PO 07/18/24 Unknown History release oxycodone 5 mg tablet 5 mg PO Q4H PRN PRN severe pain 07/18/24 Unknown History trazodone 100 mg tablet 100 mg PO QHS 07/18/24 Unknown History fluticasone fur. 200 mcg-umeclid 1 ea inhalation DAILY 10/17/24 Unknown History 62.5 mcg-vilant 25 mcg inhalat.powder (Trelegy Ellipta) ondansetron 4 mg disintegrating 4 mg PO Q6H PRN nausea and 10/17/24 Unknown Rx tablet vomiting #7 tabs Allergy/AdvReac Type Severity Reaction Status Date / Time morphine Allergy Anaphylaxis Verified 10/17/24 12:28 codeine AdvReac Upset Verified 10/17/24 12:28 Stomach Family History Father Colon cancer Heart disease Hypertension CVA (cerebral vascular accident) Mother Heart disease Hypertension Surgical History Hx of tonsillectomy Hx of hysterectomy delivery delivered Social History adopted: No household members: none number of children: 4 current occupational status: unemployed pets and animals: Yes Smoking Status: Former smoker Tobacco: How many years used: 20 alcohol intake: current alcohol intake frequency: holidays/special occasions only substance use type: does not use what type of physical activity do you participate in: walking seatbelt use: always do you feel safe at home: Yes ROS ROS ED ROS Narrative Nausea, vomiting and diarrhea. Constitutional Constitutional ED: Denies chills or fever(s) ENT ENT ED: Denies ear pain Cardiovascular Cardiovascular: Denies chest pain Respiratory/Chest Respiratory/Chest: Denies cough or dyspnea Gastrointestinal Gastrointestinal: Reports diarrhea, nausea and vomiting; Denies abdominal pain, constipation or melena Genitourinary Genitourinary ED: Denies dysuria or hematuria Musculoskeletal Musculoskeletal: Denies arthralgias Integumentary Denies abscess Neurologic Neurologic: Denies headache(s) Psychiatric Psychiatric: Denies anxiety Endocrine Endocrinology: Denies polydipsia Hematologic/Lymphatic Hematologic/Lymphatic: Denies easy bleeding Allergic/Immunologic Allergic/Immunologic ED: Denies mouth swelling, tongue swelling or urticaria EXAM Physical Exam Narrative Exam Narrative: 69-year-old female vital signs are stable afebrile. She does not look septic or toxic. She is sitting upright in bed. Daughter is at bedside. H EENT exam pupils round light. Her motions are intact. No trauma. No facial droop. Normal speech. Mildly dry mucous membranes. Neck nontender no lymphadenopathy. Lungs clear to auscultation bilaterally. Heart regular rhythm rate of 103 no murmur. Chest wall ribs nontender. Abdomen soft, nontender, nondistended, normal bowel sounds without peritoneal signs. Patient moving all 4 extremities. Normal hand quilter strength. Normal dorsi plantarflexion. Nontender. No deformity. No edema. Back nontender. Neurologically patient is awake alert. Answering questions following commands. No focal motor deficits. Const Vital Signs: 10/17/24 12:27 10/17/24 14:11 10/17/24 14:51 Temperature 97.9 F Temperature Source Oral Pulse Rate 103 H 84 98 Respiratory Rate 18 16 16 Blood Pressure 163/94 H 181/97 H 213/98 H Blood Pressure Mean 117 125 136 Pulse Ox 98 97 99 Oxygen Delivery Method Room Air Room Air Room Air Positive well nourished and well developed; Negative for cachectic, contractures or unkempt General Appearance ED: well developed and NAD; Negative for unkempt, cachectic, contractures or pallor Nutritional Appearance: Negative for cachectic HEENT Reports dry mucous membranes normocephalic and atraumatic; Negative for trauma or tenderness Mouth ED: Yes dry mucous membranes Mouth: dry mucous membranes Eyes PERRL and EOMs intact bilaterally General Eye ED: Negative for pale conjunctiva or scleral icterus Neck no lymphadenopathy, supple and no JVD General: Negative for tenderness Resp normal respiratory effort and clear to auscultation bilaterally Cardio regular rhythm, S1 normal heart sound, S2 normal heart sound and no murmurs; Negative for regular rate Cardio Narrative: Sinus tachycardia 103. Rate: tachycardic GI non-tender, non-distended and no masses Inspection: Negative for abdominal distention Auscultation: normoactive bowel sounds Palpation: soft; Negative for tender, guarding, mass, pulsatile mass or rebound tenderness present Back/Spine no CVA tenderness General Back: Negative for CVA tenderness Cervical Spine: Negative for cervical spine tenderness Thoracic Spine / Upper Back: Negative for thoracic spinal tenderness Lumbar Spine / Lower Back: Negative for lumbar spinal tenderness Coccyx: Negative for other Extremity full ROM General Extremety ED: Negative for edema or tenderness General Extremity: Negative for edema Neuro CN's II-XII intact bilaterally and moves all extremities Sensorium / Orientation: alert, oriented to person, oriented to place and oriented to time Motor Exam: strength 5/5 throughout Psych mental status grossly normal and thought process normal Appearance: Negative for unkempt Attitude: No agitated Mood & Affect: Negative for tearful Skin no wounds General Skin Exam: Negative for jaundice or pallor Lesions: no lesions Rashes: no rashes Trauma: Negative for abrasion Nails: Negative for discolored MDM MDM MDM Narrative Medical decision making narrative: 69-year-old diabetic female with nausea, vomiting diarrhea for the last 4 days since . Miky exam is benign. Treated with IV fluids for dehydration, Zofran for nausea. Screening labs. Clinically this does not appear to be a bowel obstruction I do not think she needs a CAT scan of her abdomen. Does not appear to be acute cholecystitis or appendicitis. May be a viral illness. Repeat exam around 1:30 PM. Patient had continued nausea was given a second dose of Zofran. Repeat exam at 3:07 PM patient feeling better. Nausea resolved. Blood pressure has been elevated. She denies discussed that she will need to follow-up to have that reevaluated. History & Record Review Discussion w/independent historian: Patient Additional record(s) reviewed:: Prior inpatient record, Prior outpatient record, Prior ED visit and Prior labs Lab Data Attestation: I reviewed the patient's lab results. Lab results narrative: CBC shows a white count 12.2. H&H 13 and 38. Platelets 315. Electrolytes show sodium 133. Gap 19. And a creatinine of 14 and 1. Glucose 193. Liver enzymes normal. Lipase 19. Urinalysis shows no nitrates. 5-10 white cells. No red cells. No bacteria. Negative. Labs: Laboratory Results - last 24 hr 10/17/24 10/17/24 10/17/24 12:40 12:55 13:25 WBC 12.2 H RBC 4.22 Hgb 13.2 Hct 38.5 MCV 91.2 MCH 31.3 MCHC 34.3 RDW Std Deviation 44.7 H RDW Coeff of Kavita 13.5 Plt Count 315 MPV 8.7 Immature Gran % (Auto) 0.800 Neut % (Auto) 83.8 H Lymph % (Auto) 5.3 L Beauregard % (Auto) 9.5 Eos % (Auto) 0.1 Baso % (Auto) 0.5 Absolute Neuts (auto) 10.2 H Absolute Lymphs (auto) 0.65 L Nucleated RBC % 0 Sodium 133 Potassium 3.7 Chloride 98 Carbon Dioxide 16.2 L Anion Gap 19 H BUN 14 Creatinine 1.02 Estim Creat Clear Calc 71.41 Est GFR (MDRD) Non-Af 60 BUN/Creatinine Ratio 13.7 Glucose 193 H Calcium 9.7 Total Bilirubin 0.46 AST 15 ALT 8 Alkaline Phosphatase 98 Total Protein 7.3 Albumin 4.1 Globulin 3.2 Albumin/Globulin Ratio 1.3 Lipase 19 Urine Color Yellow Urine Clarity Clear Urine pH 6.0 Ur Specific Mcintosh 1.010 Urine Protein 30 H Urine Glucose (UA) Normal Urine Ketones 5 H Urine Occult Blood Negative Urine Nitrite Negative Urine Bilirubin Negative Urine Urobilinogen Normal Ur Leukocyte Esterase 500 H Urine RBC 0 SEEN Urine WBC 5-10 SEEN Ur Squamous Epith Cells 0-5 SEEN Urine Bacteria 0 SEEN Urine Mucus 0 SEEN POC Glucose 212 H Discharge Plan Triage Chief Complaint: Nausea/Vomiting ED Provider: Gray Bruce Dx/Rx/DC Orders Clinical Impression: Nausea vomiting and diarrhea, Viral gastroenteritis, History of diabetes mellitus, History of hypertension, History of endometrial cancer Instructions: ED Gastroenteritis, Viral (Adult), ED Vomiting (Adult) Prescriptions: New ondansetron 4 mg tablet,disintegrating 4 mg PO Q6H PRN (Reason: nausea and vomiting) Qty: 7 0RF No Action gabapentin 100 mg capsule 300 mg PO TID PRN (Reason: Pain) aspirin 81 MG tablet,chewable 81 mg PO DAILY@0800 Qty: 100 0RF Patient Comments: [facility] brimonidine-timolol 1 DROP bottle 1 drp RIGHT EYE BID metformin 500 mg tablet extended release 24 hr 500 mg PO BID Patient Comments: take 1 tablet by mouth twice a day oxycodone 10 mg tablet 5 mg PO Q4H PRN (Reason: Pain) ondansetron 4 mg tablet,disintegrating 4 mg PO Q8H PRN PRN (Reason: Nausea) Qty: 14 0RF gabapentin 300 mg capsule 300 mg PO Q12H lorazepam 1 mg tablet 1 mg PO TID omeprazole 40 mg capsule,delayed release(DR/EC) 40 mg PO meloxicam 7.5 mg tablet 7.5 mg PO DAILY trazodone 100 mg tablet 100 mg PO QHS albuterol sulfate 90 mcg/actuation HFA aerosol inhaler inhalation oxycodone 5 mg tablet 5 mg PO Q4H PRN PRN (Reason: severe pain) loratadine 10 mg tablet 10 mg PO DAILY Qty: 14 0RF Trelegy Ellipta 200-62.5-25 mcg blister with device 1 ea INHALATION DAILY Primary Care Provider: Donovan Hernandez Referrals: Donovan Hernandez MD [Primary Care Provider] - As soon as possible Activity Restrictions/Additional Instructions: Plenty of fluids and rest and increase your diet slowly as tolerated. The nausea medication Zofran as needed for nausea. You may swallow or let it dissolve under your tongue. Call and follow-up with your primary care physician Dr. Adrien Hernandez this week. For further evaluation of your blood pressure. If your blood pressures run in as high as it has been today they may need to start you on medication. Return to emergency department if you are feeling worse. Print Language: Malay Disposition Disposition: Home, Self Care
--- OUTSIDE RECORDS SUMMARY | 2024-10-17 12:51 | XMS RPT_ITS | CCD ---
Author Organization [facility] CliniSyhi Care Team Providers Care Food And Beverage Attendant Name Role Phone Donovan Hernandez Primary Care Provider Dr. Alek Hernandez Primary Care Provider [phone] Dr. Alek Hernandez Referring Provider Dr. Keith Melendez Attending Provider Al, Dr. Parker Referring Provider [phone] Donovan Hernandez Primary Care Provider [phone] Dr. Alek Hernandez Primary Care Provider [phone] Dr. Keith Melendez Attending Provider Dr. Keith Melendez Referring Provider Dr. Alek Hernandez Referring Provider Dr. Alek Hernandez Primary Care Provider [phone] Dr. Keith Melendez Attending Provider [phone] Keith Melendez Referring Provider [phone] Alek Hernandez Primary Care Provider Dr. Alek Hernandez Referring Provider Dr. Keith Melendez Attending Provider [phone] Donovan Hernandez Primary Care Provider [phone] Dr. Alek Hernandez Primary Care Provider [phone] Dr. Alek Hernandez Referring Provider Dr. Keith Melendez Attending Provider [phone] Donovan Hernandez Primary Care Unavailable PROVIDER, UNKNOWN Referring Unavailable RANI, TOÑO E Attending Unavailable Ranney, Christopher Primary Care Unavailable PROVIDER, UNKNOWN Referring Unavailable Laskey, Danny Attending Unavailable Ranney, Christopher Primary Care Unavailable PROVIDER, UNKNOWN Referring Unavailable TOÑO SARAVIA Attending Unavailable Ranney, Christopher Primary Care Unavailable PROVIDER, UNKNOWN Referring Unavailable Laskey, Danny Attending Unavailable Ranney, Christopher Primary Care Unavailable PROVIDER, UNKNOWN Referring Unavailable Laskey, Danny Attending Unavailable Ranney, Christopher Primary Care Unavailable PROVIDER, UNKNOWN Referring Unavailable Laskey, Danny Attending Unavailable Ranney, Christopher Primary Care Unavailable PROVIDER, UNKNOWN Referring Unavailable Laskey, Danny Attending Unavailable Ranney, Christopher Primary Care Unavailable PROVIDER, UNKNOWN Referring Unavailable Laskey, Danny Attending Unavailable Ranney, Christopher Primary Care Unavailable PROVIDER, UNKNOWN Referring Unavailable Laskey, Danny Attending Unavailable Ranney, Christopher Primary Care Unavailable PROVIDER, UNKNOWN Referring Unavailable Laskey, Danny Attending Unavailable Ranney, Christopher Primary Care Unavailable PROVIDER, UNKNOWN Referring Unavailable Laskey, Danny Attending Unavailable Ranney, Christopher Primary Care Unavailable PROVIDER, UNKNOWN Referring Unavailable Fredis Mortensen Attending Unavailable Ranney, Christopher Primary Care Unavailable PROVIDER, UNKNOWN Referring Unavailable Laskey, Danny Attending Unavailable Ranfort bridger, Christopher Primary Care Unavailable PROVIDER, UNKNOWN Referring Unavailable Laskey, Danny Attending Unavailable Ranfort bridger, Christopher Primary Care Unavailable PROVIDER, UNKNOWN Referring Unavailable Laskey, Danny Attending Unavailable Danny Sharma MD Unavailable Donovan Hernandez Primary Care Provider [place]ismark Case CNP Salome Unavailable Paolokate Case CNP, Malinda Unavailable Kaity Rodriguez RN Unavailable Unavailable Donovan Hernandez B Primary Care Provider Danny Sharma MD Unavailable Donovan Hernandez B Primary Care Provider [place]ismark Case CNP, Salome Unavailable Paolo MERRICK - GUMARO, Malinda Unavailable Kaity Rodriguez RN Unavailable Unavailable Dr. Alek Hernandez Primary Care Provider Dr. Alek Hernandez Referring Provider Dr. Alek Hernandez Other Provider Dr. Mateo Means Attending Provider Edith ALBRIGHT, Danny A Unavailable [place] THERMAL INTELLIGENCE ANALYST - MEDICAL ASSISTANT SUPERVISOR, Salome Unavailable David ALBRIGHT, Dr. Man Primary Care Provider Juan Manuel ALBRIGHT, Dr. Basilio Attending Provider Juan Manuel ALBRIGHT, Dr. Basilio Emergency Provider Darline MCCAULEY, Dr. Monteiro Attending Provider Darline MCCAULEY, Dr. Monteiro Emergency Provider Gregoria MCCAULEY, Dr. Vera Emergency Provider [phone] David ALBRIGHT, Dr. Man Primary Care Provider Dr. Chuy Kinney DO Attending Provider David ALBRIGHT, Dr. Man Attending Provider David ALBRIGHT, Dr. Man Referring Provider [phone] David ALBRIGHT, Dr. Man Primary Care Provider Chuy Kinney Attending Unavailable Ranney, Christopher Primary Care Unavailable Cayetano Gregorio Attending Unavailable Ranney, Christopher Primary Care Unavailable Praful Zambrano Attending Unavailable Ranney, Christopher Primary Care Unavailable Ranney, Christradhaer Attending Unavailable Ranney, Christopher Referring Unavailable Ranney, Christopher Primary Care Unavailable Laskey, Danny Attending Unavailable Laskey, Danny Referring Unavailable Ranney, Christopher Primary Care Unavailable Ranney, Christopher Attending Unavailable Ranney, Christopher Referring Unavailable Ranney, Christopher Primary Care Unavailable Ranney, Christopher Attending Unavailable Ranney, Christopher Referring Unavailable Ranney, Christopher Primary Care Unavailable Laskey, Danny Attending Unavailable Ranney, Christopher Primary Care Unavailable Laskey, Danny Referring Unavailable ALKA CASON Attending Unavailable RANNEY, CHRISTOPHER Primary Care Unavailable ALKA CASON Attending Unavailable RANNEY, CHRISTOPHER Primary Care Unavailable ALKA CASON Attending Unavailable [facility] Unavailable DANNY SHARMA Attending Unavailable [facility] Unavailable ALKA CASON Attending Unavailable MALINDA BOONE Referring Unavailable [facility] Unavailable MALINDA BOONE Attending Unavailable [facility] Unavailable ALKA CASON Attending Unavailable [facility] Unavailable Allergies Allergy Classification Reported Allergen(s) Allergy Type Date of Onset Reaction(s) Facility Opioid Agonists (18 sources) Codeine Drug Allergy 8 Nausea And Vomiting, Anaphylaxis, Rash, Shortness of breath [facility] (20 sources) Codeine Drug Allergy 8 Nausea And Vomiting, Other (See Comments), Rash [place], [place] (20 sources) Morphine Drug Allergy 8 Anaphylaxis, Shortness of breath [place], [place] (1 source) Codeine Drug Allergy 5 [facility] (1 source) Morphine Drug Allergy 5 [facility] Medications Current Medications Medication Drug Class(es) Dates Sig (Normalized) Sig (Original) acetaminophen 325 mg / oxyCODONE hydrochloride 5 mg oral tablet (1 source) Opioid Agonist Start: 12-09-2020 oxyCODONE-acetami nophen (PERCOCET) 5-325 MG per tablet Take by mouth. 0 12/09/2020 Active [id number] 200 actuat albuterol 0.09 mg/actuat metered dose inhaler (20 sources) beta2-Adrenergic Agonist Start: 07-18-2024 Albuterol Sulfate 90 mcg/actuation HFA aerosol inhaler Active INHALATION July 18, 2024 12:00am Start: 10-13-2020 albuterol 108 (90 Base) MCG/ACT inhaler Inhale 90 each if needed. 10/13/2020 Active Start: 10-13-2020 take 2 puff(s) by in halation every four hours albuterol sulfate HFA 108 (90 Base) MCG/ACT inhaler inhale 2 puffs every 4 hours if needed 0 10/13/2020 Active alginic acid 200 mg / calcium carbonate 80 mg / magnesium trisilicate 20 mg / sodium bicarbonate 70 mg oral tablet (14 sources) take 1 tablet by rachelle th once daily as needed for gastroesophageal reflux disease calcium carbonate (TUMS) 500 MG chewable tablet Take 1 tablet by mouth daily as needed for Heartburn 0 Active amoxicillin 875 mg / clavulanate 125 mg oral tablet (1 source) Penicillin-class Antibacterial Start: End: take 1 tablet by mouth twice daily amoxicillin-clav ulanate (Augmentin) 875-125 MG tablet Indications: Tooth pain Take 1 tablet by mouth 2 times daily for 10 days. 20 tablet 05/20/2024 05/30/2024 Active aspirin 81 mg chewable tablet (20 sources) Platelet Aggregation Inhibitor, Nonsteroidal Anti-inflammatory Drug Start: aspirin 81 MG chewable tablet Chew 81 mg daily. 05/06/2014 Active End: 12-09-2019 take 1 tablet by mouth once daily aspirin 81 MG tablet Take 81 mg by mouth daily 0 12/09/2019 Discontinued (Stop Taking at Discharge) bacitracin 0.5 unt/mg topica l ointment (20 sources) Start: 08-19-2022 bacitracin 500 UNIT/GM ointment Apply topically 2 times daily. 28.4 g 0 08/19/2022 Active Start: 08-19-2022 End: 09-30-2023 bacitracin 500 UNIT/GM ointm ent Apply topically 2 times daily. 28.4 g 08/19/2022 09/30/2023 Discontinued (Therapy completed) bisacodyl 5 mg delayed release oral tablet (20 sources) Stimulant Laxative Start: 11-30-2021 bisacodyl (Dulcolax) 5 MG EC tablet Take 10 mg by mouth if needed. 11/30/2021 Active brimonidine tartrate 2 mg/ml ophthalmic solution (20 sources) alpha-Adrenergic Agonist Start: 06-21-2021 take 1 drop(s) into the eye(s) once daily brimonidine (AlphaGAN P) 0.2 % ophthalmic solution Administer 1 drop into both eyes Nightly. 06/21/2021 Active Start: 06-21-2021 brimonidine (A lphaGAN P) 0.2 % ophthalmic solution Administer 0.2 drops into both eyes if needed. 0 06/21/2021 Active End: 09-30-2023 brimonidine (AlphaGAN P) 0.2 % ophthalmic solution 1 drop. 09/30/2023 Discontinued (Duplicate order) take 1 drop(s) into the eye(s) three times daily brimonidine (ALPHAGAN) 0.2 % ophthalmic solution 1 drop 3 times daily 0 Active brimonidine tartrate 2 mg/ml / timolol 5 mg/ml ophthalmic solution (9 sources) alpha-Adrenergic Agonist, beta-Adrenergic Vinay Start: 12-19-2017 Brimonidine-Timolol Active 1 DRP RIGHT EYE TWICE A DAY December 19, 2017 12:00am Brimonidine-Dionicio lol 1 DROP bottle (3 sources) Start: 12-19-2017 take 1 drop(s) into the eye(s) twice daily Brimonidine-Timolol 1 DROP bottle Active 1 NMA RIGHT EYE TWICE A DAY December 19, 2017 12:00am calcium carbonate 1250 mg chewable tablet (20 sources) End: 10-06-2023 calcium carbonate (Os-Papito) 1250 (500 Ca) MG chewable tablet Chew 1 tablet if needed. Active take 1 tablet by rachelle th once daily as needed for gastroesophageal reflux disease calcium carbonate (TUMS) 500 MG chewable tablet Take 1 tablet by mouth daily as needed for Heartburn 0 Active cholecalciferol 0.05 mg oral capsule (20 sources) Vitamin D Start: 03-28-2022 take 1 capsule by mouth in the morning cholecalciferol (Vitamin D-3) 50 MCG (2000 UT) capsule Take 1 capsule (50 mcg) by mouth in the morning. 30 capsule 2 03/28/2022 Active Start: 10-19-2020 take 1 capsule by mo ut once daily Vitamin D, Cholecalciferol, 50 MCG (2000 UT) CAPS Indications: Low vitamin D level Take 1 capsule by mouth daily 30 capsule 3 10/19/2020 Active dexamethasone 4 mg oral tablet (1 source) Corticosteroid Start: 08-17-2020 End: 09-16-2020 take 1 tablet by mouth twice daily at mealtime dexamethasone (DECADRON) 4 MG tablet Indications: Chemotherapy-induced fatigue Take 1 tablet by mouth 2 times daily (with meals) 60 tablet 2 08/17/2020 09/16/2020 Active diazePAM 5 mg oral tablet (1 source) Benzodiazepine Start: 10-14-2019 End: 11-03-2019 take 1 tablet by mouth once daily as needed for anxiety diazePAM (VALIUM) 5 MG tablet Indications: Anxiety Take 1 tablet by mouth nightly as needed for Anxiety or Sleep for up to 20 days. 20 tablet 0 10/14/2019 11/03/2019 Active docusate sodium 100 mg oral capsule (2 sources) Start: 08-19-2022 End: 09-18-2022 take 1 capsule by mouth twice daily as needed for constipation docusate sodium (Colace) 100 MG capsule Indications: Constipation Take 1 capsule (100 mg) by mouth 2 times daily as needed for constipation. 60 capsule 0 08/19/2022 09/18/2022 Active escitalopram 10 mg oral tablet (5 sources) Serotonin Reuptake Inhibitor take 1 tablet by mouth once daily escitalopram (LEXAPRO) 10 MG tablet Take 10 mg by mouth daily 0 Active gabapentin 300 mg oral capsule (20 sources) Anti-epileptic Agent Start: 05-04-2024 take 1 capsule by mouth every twelve hours Gabapentin 300 mg capsule Active 300 mg PO Q12H May 04, 2024 1:00am Start: 03-11-2024 End: 06-28-2024 take 1 capsule by mouth twice daily gabapentin (Neurontin) 300 MG capsule Indications: Recurrent carcinoma of endometrium (HCC) , Cancer associated pain Take 1 capsule (300 mg) by mouth 2 times daily. 60 capsule 06/28/2024 Active Start: 10-30-2023 End: 03-11-2024 take 1 capsule by mouth three times daily gabapentin (Neurontin) 300 MG capsule Indications: Recurrent carcinoma of endometrium (HCC) , Cancer associated pain Take 1 capsule (300 mg) by mouth 3 times daily. 90 capsule 10/30/2023 03/11/2024 Discontinued (Reorder) Start: 10-06-2023 gabapentin (Ne urontin) capsule 100 mg Start: 08-19-2022 gabapentin (Ne urontin) capsule 100 mg Start: 05-30-2022 gabapentin (Ne urontin) capsule 100 mg Start: 05-31-2021 End: 04-24-2024 take 1 capsule by mouth once daily gabapentin (Neurontin) 300 MG capsule Indications: Recurrent carcinoma of endometrium (HCC) , Cancer associated pain Take 1 capsule (300 mg) by mouth Nightly. 90 capsule 1 11/14/2022 05/13/2023 Active Start: 05-31-2021 End: 08-29-2021 take 1 capsule by mouth twice daily gabapentin (NEURONTIN) 300 MG capsule Indications: Chemotherapy-induced neuropathy (HCC) Take 1 capsule by mouth 2 times daily for 90 days. 180 capsule 2 05/31/2021 Active Start: 11-24-2020 End: 02-22-2021 take 1 capsule by mouth once daily gabapentin (NEURONTIN) 300 MG capsule Indications: Chemotherapy-induced neuropathy (HCC) Take 1 capsule by mouth nightly for 90 days. 90 capsule 3 11/24/2020 Active Start: 04-18-2020 End: 07-17-2020 take 1 capsule by mouth once daily gabapentin (NEURONTIN) 300 MG capsule Indications: Chemotherapy-induced neuropathy (HCC) Take 1 capsule by mouth nightly for 90 days. 90 capsule 0 04/18/2020 Active Start: 03-02-2020 End: 08-29-2020 gabapentin (NEURONTIN) 100 M G capsule Indications: Endometrial cancer (HCC) , Joint pain following chemotherapy Take 1 capsule by mouth nightly for 180 days. Intended supply: 90 days 90 capsule 1 03/02/2020 08/29/2020 Active Start: 12-09-2019 End: 12-09-2019 gabapentin (NEURONTIN) capsu le 300 mg Start: 09-21-2018 take 3 capsules by m outh three times daily as needed for pain Gabapentin 100 mg capsule Active 300 mg PO THREE TIMES A DAY as needed for Pain September 21, 2018 12:00am Start: 09-21-2018 take 300 mg by mouth three times daily Gabapentin Active 300 MG PO THREE TIMES A DAY September 21, 2018 12:00am gabapentin (NEUR ONTIN) 100 MG capsule Take 100 mg by mouth as needed. 0 Active gabapentin (NEUR ONTIN) 100 MG capsule Take 100 mg by mouth as needed. 0 Active glimepiride 4 mg oral tablet (20 sources) Sulfonylurea Start: 05-04-2021 End: 09-30-2023 take 1 tablet by mouth once daily glimepiride (Amaryl) 4 MG tablet Take 4 mg by mouth daily. 0 11/07/2021 Active 3 ml heparin sodium, porcine 100 unt/ml prefilled syringe (11 sources) Unfractionated Heparin, Anti-coagulant Start: 11-29-2021 End: 11-30-2021 heparin flush 100 UNIT/ML injection 500 Units Start: 10-18-2021 End: 10-19-2021 heparin flush 100 UNIT/ML in jection 500 Units Start: 09-27-2021 End: 09-28-2021 heparin flush 100 UNIT/ML in jection 500 Units Start: 09-06-2021 End: 09-07-2021 heparin flush 100 UNIT/ML in jection 500 Units Start: 08-16-2021 End: 08-17-2021 heparin flush 100 UNIT/ML in jection 500 Units Start: 06-28-2021 End: 06-29-2021 heparin flush 100 UNIT/ML in jection 500 Units Start: 06-07-2021 End: 06-08-2021 heparin flush 100 UNIT/ML in jection 500 Units Start: 03-01-2021 End: 03-02-2021 heparin flush 100 UNIT/ML in jection 500 Units Start: 02-08-2021 End: 02-09-2021 heparin flush 100 UNIT/ML in jection 500 Units Start: 12-27-2020 End: 12-29-2020 heparin flush 100 UNIT/ML in jection 500 Units 1 ml hydrALAZINE hydrochloride 20 mg/ml injection (1 source) Arteriolar Vasodilator Start: 12-09-2019 hydrALAZINE (APRESOLINE) injection 5 mg 1 ml HYDROmorphone hydrochloride 1 mg/ml cartridge (2 sources) Opioid Agonist Start: 12-09-2019 HYDROmorphone (DILAUDID) injection 0.25 mg Start: 12-09-2019 HYDROmorphone (DILAUDID) injection 0.5 mg ibuprofen 600 mg oral tablet (20 sources) Nonsteroidal Anti-inflammatory Drug Start: 08-19-2022 End: 08-29-2022 take 1 tablet by mouth every six hours as needed for pain ibuprofen 600 MG tablet Take 1 tablet (600 mg) by mouth every 6 hours as needed for mild pain (1-3) for up to 10 days. 40 tablet 0 08/19/2022 08/29/2022 Active Start: 02-20-2022 End: 10-06-2023 take 1 tablet by mouth every eight hours as needed for pain ibuprofen 800 MG tablet Take 1 tablet (800 mg) by mouth every 8 hours as needed for moderate pain (4-6) for up to 28 days. 84 tablet 1 03/28/2022 04/25/2022 Active Start: 12-28-2019 take 1 tablet by rachelle th every eight hours as needed for pain ibuprofen (IBU) 800 MG tablet Indications: Pain of both hip joints Take 1 tablet by mouth every 8 hours as needed for Pain 120 tablet 3 12/28/2019 Active Start: 11-12-2018 take 1 tablet by rachelle th every eight hours as needed for pain ibuprofen (IBU) 800 MG tablet Indications: Pain of both hip joints Take 1 tablet by mouth every 8 hours as needed for Pain 120 tablet 3 11/12/2018 Active Start: 01-19-2018 take 1 tablet by rachelle th every six hours as needed for pain ibuprofen (ADVIL;MOTRIN) 600 MG tablet Indications: S/P laparoscopic hysterectomy Take 1 tablet by mouth every 6 hours as needed for Pain 60 tablet 0 01/19/2018 Active ketorolac tromethamine 5 mg/ml ophthalmic solution (20 sources) Nonsteroidal Anti-inflammatory Drug, Cyclooxygenase Inhibitor Start: 12-10-2023 ketorolac (Acular) 0.5 % ophthalmic solution 12/10/2023 Active 4 ml labetalol hydrochloride 5 mg/ml cartridge (1 source) beta-Adrenergic Vinay Start: 12-09-2019 labetalol (NORMODYNE;TRAND ATE) injection 5 mg latanoprost 0.05 mg/ml ophthalmic solution (20 sources) Prostaglandin Analog Start: 11-28-2021 take 1 drop(s) into the eye(s) once daily latanoprost (Xalatan) 0.005 % ophthalmic solution Administer 1 drop into both eyes Nightly. 11/28/2021 Active Start: 11-28-2021 take 0.005 drop(s) i nto the eye(s) once daily latanoprost (Xalatan) 0.005 % ophthalmic solution Administer 0.005 drops into both eyes daily. 0 11/28/2021 Active lenvatinib 10 mg oral capsule (6 sources) Kinase Inhibitor Start: 12-14-2020 take 10 mg by mouth once daily Lenvatinib, 10 MG Daily Dose, 10 MG CPPK Take 10 mg by mouth daily 30 each 3 12/14/2020 Active lidocaine 0.05 mg/mg topical ointment (20 sources) Antiarrhythmic, Amide Local Anesthetic Start: 11-14-2022 End: 01-30-2024 lidocaine (Xylocaine) 5 % ointment Indications: Vulvar irritation Apply topically 2 times daily. 50 g 3 01/30/2023 01/30/2024 Active Start: 12-09-2019 End: 12-09-2019 lidocaine PF 1 % injection 1 mL lidocaine 25 mg/ml / prilocaine 25 mg/ml topical cream (20 sources) Antiarrhythmic, Amide Local Anesthetic Start: 08-15-2022 End: 08-19-2022 lidocaine-prilocaine (Emla) 2.5-2.5 % cream Indications: Recurrent carcinoma of endometrium (HCC) Apply 2.5 application. topically 1 (one) time if needed for mild pain (1-3) for up to 1 dose. 30 g 1 08/15/2022 08/19/2022 Active Start: 12-21-2020 End: 08-15-2022 lidocaine-prilocaine (Emla) 2.5-2.5 % cream Apply 2.5 application topically if needed. 0 12/21/2020 08/15/2022 Discontinued (Reorder) Start: 12-21-2020 lidocaine-pril ocaine (EMLA) 2.5-2.5 % cream Indications: Endometrial cancer (HCC) Apply topically to mediport site 1 hour prior to access 30 g 3 12/21/2020 Active loratadine 10 mg oral tablet (3 sources) Start: 07-18-2024 take 1 tablet by mouth once daily Loratadine 10 mg tablet Active 10 mg PO DAILY July 18, 2024 12:00am LORazepam 1 mg oral tablet (20 sources) Benzodiazepine Start: 06-06-2024 End: 10-31-2024 take 1 tablet by mouth every six hours as needed for anxiety LORazepam (Ativan) 1 MG tablet Indications: Cancer related pain Take 1 tablet (1 mg) by mouth every 6 hours as needed for anxiety. 60 tablet 10/01/2024 10/31/2024 Active Start: 05-04-2024 take 1 tablet by rachelle three times daily Lorazepam 1 mg tablet Active 1 mg PO THREE TIMES A DAY May 04, 2024 1:00am Start: 10-06-2023 End: 05-31-2024 take 1 tablet by mouth every six hours as needed for anxiety LORazepam (Ativan) 1 MG tablet Indications: Cancer related pain Take 1 tablet (1 mg) by mouth every 6 hours as needed for anxiety. 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 30 tablet 0 06/09/2023 07/02/2023 Discontinued Start: 05-29-2023 End: 09-26-2024 take 1 tablet by mouth every eight hours as needed for anxiety LORazepam (Ativan) 1 MG tablet Indications: Recurrent carcinoma of endometrium (HCC) , Anxiety associated with cancer diagnosis (HCC) Take 1 tablet (1 mg) by mouth every 8 hours as needed for anxiety for up to 20 days. 60 tablet 09/06/2024 Active Start: 12-03-2022 End: 05-23-2023 take 1 tablet by mouth every eight hours as needed for anxiety LORazepam (Ativan) 1 MG tablet Indications: Recurrent carcinoma of endometrium (HCC) , Anxiety associated with cancer diagnosis (HCC) Take 1 tablet (1 mg) by mouth every 8 hours as needed for anxiety for up to 10 days. 30 tablet 0 04/04/2023 04/14/2023 Active Start: 08-19-2022 End: 08-19-2022 LORazepam (Ativan) injection 0.5 mg Start: 03-28-2022 End: 11-08-2022 take 1 tablet by mouth every eight hours as needed for anxiety LORazepam (Ativan) 1 MG tablet Indications: Recurrent carcinoma of endometrium (HCC) , Anxiety associated with cancer diagnosis (HCC) Take 1 tablet (1 mg) by mouth every 8 hours as needed for anxiety for up to 28 days. 84 tablet 0 05/16/2022 06/13/2022 Discontinued (Reorder) Start: 11-23-2021 End: 12-03-2021 take 1 tablet by mouth every eight hours as needed for anxiety LORazepam (ATIVAN) 1 MG tablet Indications: Anxiety Take 1 tablet by mouth every 8 hours as needed for Anxiety for up to 10 days. 30 tablet 0 11/23/2021 12/03/2021 Active Start: 09-18-2021 End: 10-18-2021 take 1 tablet by mouth every eight hours as needed for anxiety LORazepam (ATIVAN) 1 MG tablet Indications: Anxiety Take 1 tablet by mouth every 8 hours as needed for Anxiety for up to 10 days. 30 tablet 0 10/08/2021 10/18/2021 Start: 08-28-2021 End: 09-07-2021 take 1 tablet by mouth every eight hours as needed for anxiety LORazepam (ATIVAN) 1 MG tablet Indications: Anxiety Take 1 tablet by mouth every 8 hours as needed for Anxiety for up to 10 days. 30 tablet 0 08/28/2021 09/07/2021 Active Start: 07-25-2021 End: 08-24-2021 take 1 tablet by mouth every eight hours as needed for anxiety LORazepam (ATIVAN) 1 MG tablet Indications: Anxiety Take 1 tablet by mouth every 8 hours as needed for Anxiety for up to 10 days. 30 tablet 0 08/14/2021 08/24/2021 Active Start: 05-31-2021 End: 07-21-2021 take 1 tablet by mouth every eight hours as needed for anxiety LORazepam (ATIVAN) 1 MG tablet Indications: Anxiety Take 1 tablet by mouth every 8 hours as needed for Anxiety for up to 30 days. 30 tablet 0 06/21/2021 07/21/2021 Active Start: 08-29-2020 End: 09-28-2020 take 1 tablet by mouth every eight hours as needed for anxiety LORazepam (ATIVAN) 0.5 MG tablet Indications: Cancer associated pain Take 1 tablet by mouth every 8 hours as needed for Anxiety for up to 30 days. 42 tablet 0 08/29/2020 09/28/2020 Active Start: 08-10-2020 LORazepam (ATI VAN) injection 0.5 mg Start: 07-20-2020 LORazepam (ATI VAN) injection 0.5 mg Start: 05-25-2020 End: 06-24-2020 take 1 tablet by mouth every eight hours as needed for anxiety LORazepam (ATIVAN) 0.5 MG tablet Indications: Anxiety Take 1 tablet by mouth every 8 hours as needed for Anxiety for up to 30 days. 40 tablet 0 05/25/2020 06/24/2020 Active Start: 04-19-2020 LORazepam (ATI VAN) injection 0.5 mg Start: 04-18-2020 End: 05-18-2020 take 1 tablet by mouth every eight hours as needed for anxiety LORazepam (ATIVAN) 0.5 MG tablet Indications: Anxiety Take 1 tablet by mouth every 8 hours as needed for Anxiety for up to 30 days. 40 tablet 0 04/18/2020 05/18/2020 Active Start: 03-23-2020 LORazepam (ATI VAN) injection 0.5 mg Start: 03-02-2020 LORazepam (ATI VAN) injection 0.5 mg Start: 02-10-2020 LORazepam (ATI VAN) injection 0.5 mg Start: 01-20-2020 LORazepam (ATI VAN) injection 0.5 mg Start: 12-30-2019 LORazepam (ATI VAN) injection 0.5 mg meloxicam 7.5 mg oral tablet (3 sources) Nonsteroidal Anti-inflammatory Drug Start: 07-18-2024 take 1 tablet by mouth once daily Meloxicam 7.5 mg tablet Active 7.5 mg PO DAILY July 18, 2024 12:00am 1 ml meperidine hydrochloride 25 mg/ml cartridge (1 source) Opioid Agonist Start: 12-09-2019 meperidine (DEMEROL) injection 12.5 mg 24 hr metFORMIN hydrochloride 500 mg extended release oral tablet (20 sources) Biguanide Start: 02-05-2022 take 1 tablet by mouth every twenty-four hours in the morning metFORMIN XR (Glucophage-XR) 500 MG 24 hr tablet Take 1,000 mg by mouth in the morning and 1,000 mg in the evening. 02/05/2022 Active Start: 02-05-2022 take 1 tablet by rachelle th every twenty-four hours in the morning metFORMIN XR (Glucophage-XR) 500 MG 24 hr tablet Take 500 mg by mouth in the morning and 500 mg in the evening. 0 02/05/2022 Active Start: 05-04-2021 End: 09-30-2023 take 1 tablet by mouth twice daily metFORMIN XR (Glucophage-XR) 500 MG 24 hr tablet Take 1,000 mg by mouth 2 times daily. 05/04/2021 09/30/2023 Discontinued (Duplicate order) Start: 05-04-2021 take 2 tablets by mo [facility] twice daily metFORMIN (GLUCOPHAGE-XR) 500 MG extended release tablet Take 1,000 mg by mouth 2 times daily 0 05/04/2021 Active Start: 12-09-2020 take 1 tablet by rachelle twice daily Metformin 500 mg tablet extended release 24 hr Active 500 mg PO TWICE A DAY December 09, 2020 12:00am Start: 11-17-2020 take 1 tablet by rachelle th twice daily metFORMIN (GLUCOPHAGE) 500 MG tablet take 1 tablet by mouth twice a day 0 11/17/2020 Active Misc. Devices (Sitz Bath) mi sc (20 sources) Start: 08-19-2022 Misc. Devices (Sitz Bath) misc Use for pain relief as needed 1 each 08/19/2022 Active Start: 08-19-2022 Misc. Devices (Sitz Bath) misc Use for pain relief as needed 1 each 0 08/19/2022 Active Misc. Devices (Collins Bottle/Plastic 120mL) misc (20 sources) Start: 08-19-2022 Misc. Devices (Collins Bottle/Plastic 120mL) misc Use to clean area as needed 1 each 08/19/2022 Active Start: 08-19-2022 Misc. Devices (Collins Bottle/Plastic 120mL) misc Use to clean area as needed 1 each 0 08/19/2022 Active naloxone hydrochloride 40 mg/ml nasal spray (20 sources) Opioid Antagonist Start: 12-21-2021 naloxone (Narcan) 4 mg/0.1 mL nasal spray Administer 4 mg into affected nostril(s) if needed. 12/21/2021 Active ofloxacin 3 mg/ml ophthalmic solution (20 sources) Quinolone Antimicrobial Start: 12-10-2023 ofloxacin (Ocuflox) 0.3 % ophthalmic solution 12/10/2023 Active omeprazole 40 mg delayed release oral capsule (17 sources) Proton Pump Inhibitor Start: 06-17-2024 End: 06-17-2025 take 1 capsule by mouth once daily before breakfast omeprazole (PriLOSEC) [address] capsule Take 1 capsule (40 mg) by mouth every morning (before breakfast). Do not crush or chew. 30 capsule 11 06/17/2024 06/17/2025 Active oxyCODONE hydrochloride 5 mg oral tablet (20 sources) Opioid Agonist Start: 12-18-2023 End: 12-28-2023 oxyCODONE (Roxicodone) 5 MG immediate release tablet Indications: Recurrent carcinoma of endometrium (HCC) , Anxiety associated with cancer diagnosis (HCC) Take 1-2 tablets (5-10 mg) by mouth every 4 hours as needed for severe pain (7-10) for up to 10 days. Do not start before December 18, 2023. 120 tablet 12/18/2023 12/28/2023 Active Start: 11-10-2023 End: 10-21-2024 take 1 tablet by mouth every four hours as needed oxyCODONE (Roxicodone) 5 MG immediate release tablet Indications: Recurrent carcinoma of endometrium (HCC) , Cancer associated pain , Cancer related pain Take 1-2 tablets (5-10 mg) by mouth every 4 hours as needed for severe pain (7-10) for up to 20 days. 120 tablet 10/01/2024 10/21/2024 Active Start: 10-21-2023 End: 11-10-2023 take 1 tablet by mouth every six hours as needed for pain oxyCODONE (Roxicodone) 5 MG immediate release tablet Indications: Recurrent carcinoma of endometrium (HCC) , Anxiety associated with cancer diagnosis (HCC) Take 1 tablet (5 mg) by mouth every 6 hours as needed for severe pain (7-10) for up to 5 days. 15 tablet 10/21/2023 10/30/2023 Discontinued (Reorder) Start: 10-06-2023 End: 11-05-2023 take 0.5 tablet by mouth every six hours as needed for pain oxyCODONE (Roxicodone) 10 MG immediate release tablet Indications: Cancer related pain Take 0.5 tablets (5 mg) by mouth every 6 hours as needed for moderate pain (4-6) or severe pain (7-10). 56 tablet 10/06/2023 10/27/2023 Discontinued (Reorder) Start: 09-23-2023 End: 10-06-2023 take 1 tablet by mouth every six hours as needed for pain oxyCODONE (Roxicodone) 5 MG immediate release tablet Indications: Recurrent carcinoma of endometrium (HCC) , Anxiety associated with cancer diagnosis (HCC) Take 1 tablet (5 mg) by mouth every 6 hours as needed for severe pain (7-10) for up to 5 days. 15 tablet 09/23/2023 09/30/2023 Discontinued (Reorder) Start: 08-26-2023 End: 08-29-2023 take 1 tablet by mouth every six hours as needed for pain oxyCODONE (Roxicodone) 10 MG immediate release tablet Indications: Recurrent carcinoma of endometrium (HCC) , Anxiety associated with cancer diagnosis (HCC) Take 1 tablet (10 mg) by mouth every 6 hours as needed for severe pain (7-10) for up to 3 days. 12 tablet 0 08/26/2023 08/29/2023 Active Start: 08-14-2023 End: 09-11-2023 take 2 tablets by mouth every six hours as needed for pain oxyCODONE (Roxicodone) 5 MG immediate release tablet Indications: Endometrial cancer (CMS/HCC) (HCC) , Secondary malignancy of para-aortic lymph node (HCC) Take 2 tablets (10 mg) by mouth every 6 hours as needed for severe pain (7-10) for up to 7 days. 56 tablet 0 08/25/2023 09/01/2023 Active Start: 05-29-2023 End: 08-11-2023 take 2 tablets by mouth every six hours as needed for pain oxyCODONE (Roxicodone) 5 MG immediate release tablet Indications: Endometrial cancer (CMS/HCC) (HCC) , Secondary malignancy of para-aortic lymph node (HCC) Take 2 tablets (10 mg) by mouth every 6 hours as needed for severe pain (7-10) for up to 7 days. 56 tablet 0 06/17/2023 06/25/2023 Discontinued (Reorder) Start: 05-20-2023 End: 05-29-2023 take 1 tablet by mouth every six hours as needed for pain oxyCODONE (Roxicodone) 5 MG immediate release tablet Indications: Secondary malignancy of para-aortic lymph node (HCC) , Endometrial cancer (CMS/HCC) (HCC) Take 1 tablet (5 mg) by mouth every 6 hours as needed for severe pain (7-10) for up to 5 days. 15 tablet 0 05/20/2023 05/29/2023 Discontinued (Reorder) Start: 05-01-2023 End: 05-18-2023 take 1 tablet by mouth every six hours as needed for pain oxyCODONE (Roxicodone) 5 MG immediate release tablet Indications: Endometrial cancer (CMS/HCC) (HCC) Take 1 tablet (5 mg) by mouth every 6 hours as needed for severe pain (7-10) for up to 5 days. 15 tablet 0 05/06/2023 05/11/2023 Start: 04-29-2023 take 5 mg by mouth e very four hours as needed for pain Oxycodone 10 mg tablet Active 5 mg PO Q4H as needed for Pain April 29, 2023 2:02pm Start: 04-04-2023 End: 04-20-2023 oxyCODONE (Roxicodone) 5 MG immediate release tablet Indications: Cancer associated pain Take 1 tablet (5 mg) by mouth every 6 hours as needed for moderate pain (4-6) or severe pain (7-10) (Take 2 tablets (10mg) by mouth every 6 hours as needed for moderate pain (4-6) or severe pain (7-10) for up to 5 days) for up to 5 days. 20 tablet 0 04/15/2023 04/20/2023 Start: 03-17-2023 End: 03-29-2023 take 1 tablet by mouth every six hours as needed for pain and pain, then take 2 tablets by mouth every six hours as needed for pain and pain oxyCODONE (Roxicodone) 5 MG immediate release tablet Indications: Cancer associated pain Take 1 tablet (5 mg) by mouth every 6 hours as needed for moderate pain (4-6) or severe pain (7-10) for up to 5 days. Take 2 tablets (10mg) by mouth every 6 hours as needed for moderate pain (4-6) or severe pain (7-10) for up to 5 days 40 tablet 0 03/24/2023 03/29/2023 Active Start: 11-06-2022 End: 03-17-2023 take 1 tablet by mouth every six hours as needed for pain oxyCODONE (Roxicodone) 10 MG immediate release tablet Indications: Cancer associated pain Take 1 tablet (10 mg) by mouth every 6 hours as needed for severe pain (7-10) for up to 5 days. 20 tablet 0 03/17/2023 03/17/2023 Discontinued Start: 07-17-2022 End: 11-03-2022 take 1 tablet by mouth every six hours as needed for pain oxyCODONE (Roxicodone) 10 MG immediate release tablet Indications: Cancer associated pain Take 1 tablet (10 mg) by mouth every 6 hours as needed for severe pain (7-10) for up to 5 days. 20 tablet 0 10/29/2022 11/03/2022 Active Start: 05-13-2022 End: 07-11-2022 take 1 tablet by mouth every six hours as needed for pain oxyCODONE (Roxicodone) 10 MG immediate release tablet Indications: Recurrent carcinoma of endometrium (HCC) , Cancer associated pain Take 1 tablet (10 mg) by mouth every 6 hours as needed for severe pain (7-10) for up to 28 days. 112 tablet 0 05/16/2022 06/13/2022 Discontinued (Reorder) Start: 05-06-2022 End: 05-11-2022 take 1 tablet by mouth every six hours as needed for pain oxyCODONE (Roxicodone) 10 MG immediate release tablet Indications: Cancer associated pain , Endometrial cancer (CMS/HCC) (HCC) Take 1 tablet (10 mg) by mouth every 6 hours as needed for severe pain (7-10) for up to 5 days. 20 tablet 0 05/06/2022 05/11/2022 Active Start: 04-29-2022 End: 05-04-2022 take 1 tablet by mouth every six hours as needed for pain oxyCODONE (Roxicodone) 10 MG immediate release tablet Indications: Cancer associated pain , Recurrent carcinoma of endometrium (HCC) Take 1 tablet (10 mg) by mouth every 6 hours as needed for severe pain (7-10) for up to 5 days. 20 tablet 0 04/29/2022 05/04/2022 Active Start: 03-28-2022 End: 04-25-2022 take 1 tablet by mouth every six hours as needed for pain oxyCODONE (Roxicodone) 10 MG immediate release tablet Indications: Cancer associated pain Take 1 tablet (10 mg) by mouth every 6 hours as needed for severe pain (7-10) for up to 28 days. 112 tablet 0 03/28/2022 04/25/2022 Active Start: 11-23-2021 End: 12-04-2021 take 1 tablet by mouth every six hours as needed for pain oxyCODONE HCl (OXY-IR) 10 MG immediate release tablet Indications: Cancer associated pain Take 1 tablet by mouth every 6 hours as needed for Pain for up to 11 days. 44 tablet 0 11/23/2021 12/04/2021 Active Start: 10-08-2021 End: 10-19-2021 take 1 tablet by mouth every six hours as needed for pain oxyCODONE HCl (OXY-IR) 10 MG immediate release tablet Indications: Cancer associated pain Take 1 tablet by mouth every 6 hours as needed for Pain for up to 11 days. 44 tablet 0 10/08/2021 10/19/2021 Active Start: 09-24-2021 End: 10-05-2021 take 1 tablet by mouth every six hours as needed for pain oxyCODONE HCl (OXY-IR) 10 MG immediate release tablet Indications: Cancer associated pain Take 1 tablet by mouth every 6 hours as needed for Pain for up to 11 days. 44 tablet 0 09/24/2021 10/05/2021 Active Start: 08-28-2021 End: 09-08-2021 take 1 tablet by mouth every six hours as needed for pain oxyCODONE HCl (OXY-IR) 10 MG immediate release tablet Indications: Cancer associated pain Take 1 tablet by mouth every 6 hours as needed for Pain for up to 11 days. 44 tablet 0 08/28/2021 09/08/2021 Active Start: 08-14-2021 End: 08-25-2021 take 1 tablet by mouth every six hours as needed for pain oxyCODONE HCl (OXY-IR) 10 MG immediate release tablet Indications: Cancer associated pain Take 1 tablet by mouth every 6 hours as needed for Pain for up to 11 days. 44 tablet 0 08/14/2021 08/25/2021 Active Start: 12-09-2020 End: 03-31-2021 take 1 tablet by mouth every six hours as needed for pain oxyCODONE HCl (OXY-IR) 10 MG immediate release tablet Indications: Recurrent carcinoma of endometrium (HCC) Take 1 tablet by mouth every 6 hours as needed for Pain for up to 30 days. Intended supply: 30 days 42 tablet 0 03/01/2021 03/31/2021 Active Start: 12-09-2020 End: 04-29-2023 take 1 tablet by mouth every four hours as needed for pain Oxycodone 10 mg Tablet Discontinued 10 mg PO Q4H as needed for Pain December 09, 2020 12:00am April 29, 2023 2:02pm Start: 10-04-2020 End: 11-03-2020 take 1 tablet by mouth every six hours as needed for pain oxyCODONE HCl (OXY-IR) 10 MG immediate release tablet Indications: Cancer associated pain Take 1 tablet by mouth every 6 hours as needed for Pain for up to 30 days. Intended supply: 30 days 42 tablet 0 10/04/2020 11/03/2020 Active Start: 08-29-2020 End: 09-28-2020 take 1 tablet by mouth every six hours as needed for pain oxyCODONE HCl (OXY-IR) 10 MG immediate release tablet Indications: Cancer associated pain Take 1 tablet by mouth every 6 hours as needed for Pain for up to 30 days. Intended supply: 30 days 42 tablet 0 08/29/2020 09/28/2020 Active Start: 08-10-2020 End: 08-24-2020 oxyCODONE (OXY-IR) 10 MG imm ediate release tablet Indications: Recurrent carcinoma of endometrium (HCC) , Chemotherapy-induced neuropathy (HCC) Take 1 tablet by mouth every 6 hours as needed for Pain for up to 14 days. Intended supply: 5 days. Take lowest dose possible to manage pain 42 tablet 0 08/10/2020 08/24/2020 Active Start: 06-20-2020 End: 07-04-2020 take 1 tablet by mouth every six hours as needed for pain oxyCODONE HCl (OXY-IR) 10 MG immediate release tablet Indications: Chemotherapy-induced neuropathy (HCC) Take 1 tablet by mouth every 6 hours as needed for Pain for up to 14 days. Intended supply: 30 days 42 tablet 0 06/20/2020 07/04/2020 Active Start: 04-18-2020 End: 04-25-2020 take 1 tablet by mouth every four hours as needed for pain oxyCODONE HCl (OXY-IR) 10 MG immediate release tablet Indications: Recurrent carcinoma of endometrium (HCC) , Regional lymph node metastasis present (HCC) Take 1 tablet by mouth every 4 hours as needed for Pain for up to 7 days. 42 tablet 0 04/18/2020 04/25/2020 Active Start: 02-25-2020 End: 03-03-2020 take 1 tablet by mouth every four hours as needed for pain oxyCODONE HCl (OXY-IR) 10 MG immediate release tablet Indications: Endometrial cancer (HCC) , Joint pain following chemotherapy Take 1 tablet by mouth every 4 hours as needed for Pain for up to 7 days. Intended supply: 30 days 42 tablet 0 02/25/2020 03/03/2020 Active Start: 01-18-2020 End: 01-25-2020 take 1 tablet by mouth every six hours as needed for pain, then take 1 tablet by mouth as needed for pain oxyCODONE (ROXICODONE) 5 MG immediate release tablet Indications: Recurrent carcinoma of endometrium (HCC) , Cancer associated pain , Joint pain following chemotherapy Take 1 tablet by mouth every 6 hours as needed for Pain for up to 7 days. Intended supply: 7 days. Take lowest dose possible to manage pain 28 tablet 0 01/18/2020 01/25/2020 Active Start: 12-09-2019 End: 12-30-2019 take 1 tablet by mouth every six hours as needed for pain, then take 1 tablet by mouth as needed for pain oxyCODONE (ROXICODONE) 5 MG immediate release tablet Indications: S/P laparoscopy , Recurrent carcinoma of endometrium (HCC) Take 1 tablet by mouth every 6 hours as needed for Pain for up to 14 days. Intended supply: 7 days. Take lowest dose possible to manage pain 30 tablet 0 12/16/2019 12/30/2019 Start: 11-26-2019 End: 12-03-2019 take 1 tablet by mouth every six hours as needed for pain, then take 1 tablet by mouth as needed for pain oxyCODONE (ROXICODONE) 5 MG immediate release tablet Indications: Cancer related pain Take 1 tablet by mouth every 6 hours as needed for Pain for up to 7 days. Intended supply: 7 days. Take lowest dose possible to manage pain 30 tablet 0 11/26/2019 12/03/2019 take 1 tablet by rachelle every twelve hours oxyCODONE (OXYCONTIN) 10 MG extended release tablet Take 10 mg by mouth every 12 hours. 0 Active End: 12-09-2019 OXYCODONE HCL PO Take by rachelle th Pt does not know what type of oxycodone if it contains tylenol or not and unaware of dose 0 12/09/2019 Discontinued (Stop Taking at Discharge) pantoprazole 40 mg delayed release oral tablet (20 sources) Proton Pump Inhibitor Start: 09-21-2018 End: 05-04-2024 pantoprazole (ProtoNix) 40 MG EC tablet Take 40 mg by mouth if needed. 06/06/2021 Active 4 ml pembrolizumab 25 mg/ml injection (20 sources) Programmed Receptor-1 Blocking Antibody Start: 04-16-2021 pembrolizumab (Keytruda) 100 MG/4ML chemo injection Infuse 25 mg into a venous catheter if needed. 0 04/16/2021 Active Start: 04-16-2021 End: 04-29-2023 Pembrolizumab (Keytruda) 25 mg/mL Solution Discontinued mg IV April 16, 2021 1:00am April 29, 2023 2:05pm Start: 04-16-2021 Pembrolizumab (Keytruda) 25 mg/mL Solution Active MG IV April 16, 2021 1:00am prednisoLONE acetate 10 mg/ml ophthalmic suspension (20 sources) Corticosteroid Start: 12-23-2023 prednisoLONE acetate (Pred-Forte) 1 % ophthalmic suspension 12/23/2023 Active prochlorperazine 10 mg oral tablet (20 sources) Phenothiazine Start: 01-29-2024 End: 01-28-2025 take 1 tablet by mouth every eight hours as needed for nausea and vomiting prochlorperazine (Compazine) 10 MG tablet Take 1 tablet (10 mg) by mouth every 8 hours as needed for nausea or vomiting. 60 tablet 3 01/29/2024 01/28/2025 Active Start: 10-08-2021 End: 10-06-2023 take 1 tablet by mouth every eight hours as needed for nausea and vomiting prochlorperazine (Compazine) 10 MG tablet Take 1 tablet (10 mg) by mouth every 8 hours as needed for nausea or vomiting. 120 tablet 3 07/11/2022 Active Start: 10-08-2021 take 1 tablet by rachelle th every six hours as needed for nausea and vomiting prochlorperazine (COMPAZINE) 10 MG tablet Indications: Endometrial cancer (HCC) Take 1 tablet by mouth every 6 hours as needed (nausea and vomiting) 35 tablet 3 10/08/2021 Active Start: 05-24-2021 take 1 tablet by rachelle th every six hours as needed for nausea and vomiting prochlorperazine (COMPAZINE) 10 MG tablet Indications: Endometrial cancer (HCC) Take 1 tablet by mouth every 6 hours as needed (nausea and vomiting) 35 tablet 3 05/24/2021 Active Start: 06-21-2020 take 1 tablet by rachelle th every six hours as needed for nausea and vomiting prochlorperazine (COMPAZINE) 10 MG tablet Indications: Endometrial cancer (HCC) Take 1 tablet by mouth every 6 hours as needed (nausea and vomiting) 35 tablet 3 06/21/2020 Active Start: 12-20-2019 take 1 tablet by rachelle th every six hours as needed for nausea and vomiting prochlorperazine (COMPAZINE) 10 MG tablet Indications: Endometrial cancer (HCC) Take 1 tablet by mouth every 6 hours as needed (nausea and vomiting) 35 tablet 3 12/20/2019 Active 1 ml promethazine hydrochloride 25 mg/ml injection (1 source) Phenothiazine Start: 12-09-2019 End: 12-09-2019 promethazine (PHENERGAN) injection 6.25 mg sennosides, fci 8.6 mg oral tablet (20 sources) Start: 12-21-2021 take 1 tablet by mouth in the morning sennosides (Senokot) 8.6 MG tablet Take 8.6 mg by mouth in the morning and 8.6 mg in the evening. 12/21/2021 Active sertraline 100 mg oral tablet (20 sources) Serotonin Reuptake Inhibitor Start: 02-01-2022 End: 10-30-2023 take 1 tablet by mouth once daily sertraline (Zoloft) 100 MG tablet Take 1 tablet (100 mg) by mouth daily. 90 tablet 1 03/28/2022 Active Start: 12-22-2021 End: 09-30-2023 take 1 tablet by mouth in the morning sertraline (Zoloft) 50 MG tablet Take 50 mg by mouth in the morning. 12/22/2021 09/30/2023 Discontinued (Duplicate order) Start: 08-16-2021 take 1 tablet by rachelle th once daily sertraline (ZOLOFT) 25 MG tablet Indications: Depression, unspecified depression type Take 1 tablet by mouth daily 90 tablet 3 08/16/2021 Active silver sulfADIAZINE 10 mg/ml topical cream (20 sources) Sulfonamide Antibacterial Start: 02-01-2022 End: 09-30-2023 silver sulfADIAZINE (Silvadene) 1 % cream Indications: Recurrent carcinoma of endometrium (HCC) Apply 1 application. topically 2 times daily. 85 g 1 08/15/2022 Active simethicone 80 mg chewable tablet (2 sources) Start: 10-06-2023 End: 10-16-2023 take 1 tablet by mouth every six hours as needed simethicone (Gas-X) 80 MG chewable tablet Chew 1 tablet (80 mg) every 6 hours as needed for flatulence for up to 10 days. 30 tablet 0 10/06/2023 10/16/2023 Active sucralfate 100 mg/ml oral suspension (20 sources) Aluminum Complex Start: 10-28-2019 sucralfate (Carafate) 1 GM/10ML suspension Take 1 g by mouth if needed. 10/28/2019 Active Start: 10-28-2019 take 10 mL by mouth four times daily sucralfate (CARAFATE) 1 GM/10ML suspension Take 10 mLs by mouth 4 times daily 1200 mL 3 10/28/2019 Active Trelegy Ellipta 200-62.5-25 MCG/ACT aerosol powder (20 sources) Start: 04-07-2023 Trelegy Ellipt a 200-62.5-25 MCG/ACT aerosol powder 04/07/2023 Active Start: 04-07-2023 Trelegy Ellipt a 200-62.5-25 MCG/ACT aerosol powder Completed/Discontinued Medications Medication Drug Class(es) Dates Sig (Normalized) Sig (Original) acetaminophen 500 mg oral tablet (20 sources) Start: 10-06-2023 End: 10-06-2023 acetaminophen (Tylenol) tablet 1,000 mg Start: 08-19-2022 End: 08-19-2022 acetaminophen (Tylenol) tabl et 1,000 mg Start: 05-30-2022 End: 05-30-2022 acetaminophen (Tylenol) tabl et 1,000 mg Start: 12-21-2021 End: 10-06-2023 take 2 tablets by mouth every six hours as needed acetaminophen (Tylenol) 500 MG tablet Take 1,000 mg by mouth every 6 hours as needed. 12/21/2021 10/06/2023 Discontinued (Stop taking at discharge) Start: 07-20-2020 End: 07-20-2020 acetaminophen (TYLENOL) tabl et 1,000 mg Start: 12-09-2019 End: 12-09-2019 acetaminophen (TYLENOL) tabl et 1,000 mg take 2 tablets by mo [facility] every six hours as needed for pain acetaminophen (TYLENOL) 325 MG tablet Take 650 mg by mouth every 6 hours as needed for Pain 0 Active acetaminophen 325 mg / HYDROcodone bitartrate 5 mg oral tablet (12 sources) Opioid Agonist Start: 12-19-2017 End: 09-21-2018 Hydrocodone-Acetaminophen 1 EACH tablet Discontinued 1 NMA PO Q4H 5 December 19, 2017 12:00am September 21, 2018 1:17pm Start: 12-19-2017 End: 09-21-2018 Hydrocodone-Acetaminophen Di scontinued 1 EACH PO Q4H 5 December 19, 2017 12:00am September 21, 2018 1:17pm ALPRAZolam 0.25 mg disintegrating oral tablet (5 sources) Benzodiazepine Start: 10-06-2023 End: 10-06-2023 ALPRAZolam (Xanax) disintegrating tablet 0.25 mg Start: 08-19-2022 End: 08-19-2022 ALPRAZolam (Xanax) disintegr ating tablet 0.25 mg Start: 12-09-2019 ALPRAZolam (NI RAVAM) dissolvable tablet 0.25 mg alteplase (CATHFLO) injection 2 mg (1 source) Start: 06-07-2021 End: 06-07-2021 alteplase (CATHFLO) injection 2 mg atropine sulfate 0.025 mg / diphenoxylate hydrochloride 2.5 mg oral tablet (3 sources) Anticholinergic, Cholinergic Muscarinic Antagonist, Antidiarrheal Start: 04-26-2018 End: 12-09-2019 take 2 tablets by mouth four times daily as needed diphenoxylate-atro pine (LOMOTIL) 2.5-0.025 MG per tablet TAKE 2 TABLETS BY MOUTH 4 TIMES A DAY PRN 2 04/26/2018 12/09/2019 Discontinued (Stop Taking at Discharge) brinzolamide 10 mg/ml ophthalmic suspension (20 sources) Carbonic Anhydrase Inhibitor take 1 drop(s) into the eye(s) three times daily brinzolamide (AZOPT) 1 % ophthalmic suspension 1 drop 3 times daily 0 Suspended 60 actuat budesonide 0.16 mg/actuat / formoterol fumarate 0.0045 mg/actuat metered dose inhaler (20 sources) Corticosteroid, beta2-Adrenergic Agonist Start: 02-05-2022 End: 09-30-2023 Symbicort 160-4.5 MCG/ACT inhaler Inhale 160 puffs if needed. 02/05/2022 09/30/2023 Discontinued (Therapy completed) Start: 11-16-2020 take 2 puff(s) by mo ut twice daily SYMBICORT 160-4.5 MCG/ACT AERO inhale 2 puffs by mouth twice a day 0 11/16/2020 Active calcium chloride 0.0014 meq/ ml / potassium chloride 0.004 meq/ml / sodium chloride 0.103 meq/ml / sodium lactate 0.028 meq/ml injectable solution (11 sources) Start: 10-06-2023 End: 10-06-2023 lactated ringers infusion Start: 08-19-2022 End: 08-19-2022 lactated ringers infusion Start: 05-30-2022 End: 05-31-2022 lactated Ringer's (LR) infus ion Start: 12-09-2019 lactated ringe rs infusion CARBOplatin (PARAPLATIN) 640 mg in sodium chloride 0.9 % 250 mL chemo IVPB (1 source) Start: 06-29-2020 End: 06-29-2020 CARBOplatin (PARAPLATIN) 640 mg in sodium chloride 0.9 % 250 mL chemo IVPB CARBOplatin (PARAPLATIN) 660 mg in sodium chloride 0.9 % 250 mL chemo IVPB (1 source) Start: 08-10-2020 End: 08-10-2020 CARBOplatin (PARAPLATIN) 660 mg in sodium chloride 0.9 % 250 mL chemo IVPB CARBOplatin (PARAPLATIN) 690 mg in sodium chloride 0.9 % 250 mL chemo IVPB (1 source) Start: 07-20-2020 End: 07-20-2020 CARBOplatin (PARAPLATIN) 690 mg in sodium chloride 0.9 % 250 mL chemo IVPB CARBOplatin (PARAPLATIN) 700 mg in sodium chloride 0.9 % 250 mL chemo IVPB (1 source) Start: 12-30-2019 End: 12-30-2019 CARBOplatin (PARAPLATIN) 700 mg in sodium chloride 0.9 % 250 mL chemo IVPB CARBOplatin (PARAPLATIN) 715 mg in sodium chloride 0.9 % 250 mL chemo IVPB (1 source) Start: 03-02-2020 End: 03-02-2020 CARBOplatin (PARAPLATIN) 715 mg in sodium chloride 0.9 % 250 mL chemo IVPB CARBOplatin (PARAPLATIN) 750 mg in sodium chloride 0.9 % 250 mL chemo IVPB (4 sources) Start: 04-19-2020 End: 04-19-2020 CARBOplatin (PARAPLATIN) 750 mg in sodium chloride 0.9 % 250 mL chemo IVPB Start: 03-23-2020 End: 03-23-2020 CARBOplatin (PARAPLATIN) 750 mg in sodium chloride 0.9 % 250 mL chemo IVPB Start: 02-10-2020 End: 02-10-2020 CARBOplatin (PARAPLATIN) 750 mg in sodium chloride 0.9 % 250 mL chemo IVPB Start: 01-20-2020 End: 01-20-2020 CARBOplatin (PARAPLATIN) 750 mg in sodium chloride 0.9 % 250 mL chemo IVPB ceFAZolin 1000 mg injection (1 source) Cephalosporin Antibacterial Start: 12-18-2020 End: 12-18-2020 ceFAZolin (ANCEF) 1000 mg in dextrose 5 % 50 mL IVPB (premix) cephalexin 500 mg oral capsule (3 sources) Cephalosporin Antibacterial Start: 05-04-2024 End: 07-18-2024 take 1 capsule by mouth every six hours Cephalexin 500 mg capsule Discontinued 500 mg PO EVERY 6 HOURS May 04, 2024 1:00am July 18, 2024 4:51pm cholecalciferol 9.52 unt/ml / glucose 357 mg/ml oral gel (4 sources) Vitamin D Start: 10-06-2023 End: 10-06-2023 glucose oral gel 15 g Start: 08-19-2022 End: 05-01-2023 glucose oral gel 15 g ciprofloxacin 500 mg oral tablet (12 sources) Quinolone Antimicrobial Start: 04-16-2021 End: 04-29-2023 take 1 tablet by mouth twice daily Ciprofloxacin Hcl 500 MG tablet Discontinued 500 mg PO TWICE A DAY April 16, 2021 1:00am April 29, 2023 2:04pm clindamycin 10 mg/ml topical lotion (3 sources) Lincosamide Antibacterial Start: 02-01-2020 End: 03-02-2020 clindamycin (CLEOCIN T) 1 % lotion Indications: Folliculitis Apply topically 2 times daily. 60 g 2 02/01/2020 03/02/2020 cyclobenzaprine hydrochloride 10 mg oral tablet (12 sources) Muscle Relaxant Start: 12-29-2017 End: 09-21-2018 take 1 tablet by mouth three times daily as needed for muscle spasms Cyclobenzaprine 10 mg tablet Discontinued 10 mg PO THREE TIMES A DAY as needed for muscle spasm 40 December 29, 2017 12:00am September 21, 2018 1:24pm dapagliflozin 5 mg oral tablet (20 sources) Sodium-Glucose Cotransporter 2 Inhibitor Start: 04-07-2023 End: 09-30-2023 Farxiga 5 MG tablet daily. 04/07/2023 09/30/2023 Discontinued (Therapy completed) dexamethasone (DECADRON) 12 mg in sodium chloride 0.9 % IVPB (9 sources) Start: 08-10-2020 End: 08-10-2020 dexamethasone (DECADRON) 12 mg in sodium chloride 0.9 % IVPB Start: 07-20-2020 End: 07-20-2020 dexamethasone (DECADRON) 12 mg in sodium chloride 0.9 % IVPB Start: 06-29-2020 End: 06-29-2020 dexamethasone (DECADRON) 12 mg in sodium chloride 0.9 % IVPB Start: 04-19-2020 End: 04-19-2020 dexamethasone (DECADRON) 12 mg in sodium chloride 0.9 % IVPB Start: 03-23-2020 End: 03-23-2020 dexamethasone (DECADRON) 12 mg in sodium chloride 0.9 % IVPB Start: 03-02-2020 End: 03-02-2020 dexamethasone (DECADRON) 12 mg in sodium chloride 0.9 % IVPB Start: 02-10-2020 End: 02-10-2020 dexamethasone (DECADRON) 12 mg in sodium chloride 0.9 % IVPB Start: 01-20-2020 End: 01-20-2020 dexamethasone (DECADRON) 12 mg in sodium chloride 0.9 % IVPB Start: 12-30-2019 End: 12-30-2019 dexamethasone (DECADRON) 12 mg in sodium chloride 0.9 % IVPB dicyclomine hydrochloride 10 mg oral capsule (20 sources) Anticholinergic Start: 12-09-2020 End: 05-04-2024 take 2 capsules by mouth every four to six hours as needed Dicyclomine 10 MG capsule Discontinued 20 mg PO .q4-6h as needed for abdominal discomfort December 09, 2020 4:25am May 04, 2024 7:49am Start: 12-09-2020 take 20 mg by mouth every four to six hours Dicyclomine Active 20 MG PO .q4-6h December 09, 2020 4:25am Start: 09-21-2018 End: 09-30-2023 dicyclomine (Bentyl) 10 MG c apsule Take 10 mg by mouth if needed. 09/21/2018 Active 1 ml diphenhydrAMINE hydrochloride 50 mg/ml cartridge (6 sources) Histamine-1 Receptor Antagonist Start: 10-06-2023 End: 10-06-2023 diphenhydrAMINE (BENADryl) injection 12.5 mg Start: 08-19-2022 End: 08-19-2022 diphenhydrAMINE (BENADryl) i njection 12.5 mg Start: 12-30-2019 End: 12-30-2019 diphenhydrAMINE (BENADRYL) i njection 50 mg Start: 12-09-2019 End: 12-09-2019 diphenhydrAMINE (BENADRYL) i njection 12.5 mg diphenhydrAMINE (BENADRYL) 5 0 mg, famotidine (PEPCID) 20 mg in sodium chloride 0.9 % 50 mL IVPB (8 sources) Start: 08-10-2020 End: 08-10-2020 diphenhydrAMINE (BENADRYL) 5 0 mg, famotidine (PEPCID) 20 mg in sodium chloride 0.9 % 50 mL IVPB Start: 07-20-2020 End: 07-20-2020 diphenhydrAMINE (BENADRYL) 5 0 mg, famotidine (PEPCID) 20 mg in sodium chloride 0.9 % 50 mL IVPB Start: 06-29-2020 End: 06-29-2020 diphenhydrAMINE (BENADRYL) 5 0 mg, famotidine (PEPCID) 20 mg in sodium chloride 0.9 % 50 mL IVPB Start: 04-19-2020 End: 04-19-2020 diphenhydrAMINE (BENADRYL) 5 0 mg, famotidine (PEPCID) 20 mg in sodium chloride 0.9 % 50 mL IVPB Start: 03-23-2020 End: 03-23-2020 diphenhydrAMINE (BENADRYL) 5 0 mg, famotidine (PEPCID) 20 mg in sodium chloride 0.9 % 50 mL IVPB Start: 03-02-2020 End: 03-02-2020 diphenhydrAMINE (BENADRYL) 5 0 mg, famotidine (PEPCID) 20 mg in sodium chloride 0.9 % 50 mL IVPB Start: 02-10-2020 End: 02-10-2020 diphenhydrAMINE (BENADRYL) 5 0 mg, famotidine (PEPCID) 20 mg in sodium chloride 0.9 % 50 mL IVPB Start: 01-20-2020 End: 01-20-2020 diphenhydrAMINE (BENADRYL) 5 0 mg, famotidine (PEPCID) 20 mg in sodium chloride 0.9 % 50 mL IVPB DULoxetine 30 mg delayed release oral capsule (17 sources) Serotonin and Norepinephrine Reuptake Inhibitor Start: 10-30-2023 End: 04-27-2024 take 1 capsule by mouth twice daily DULoxetine (Cymbalta) [address] capsule Indications: Recurrent carcinoma of endometrium (HCC) , Cancer associated pain , Neuropathy Take 1 capsule (30 mg) by mouth 2 times daily. Do not crush or chew. 60 capsule 5 10/30/2023 03/11/2024 Discontinued (Side effects) F18 FDG radio-isotope injection 12 millicurie (2 sources) Start: 04-10-2023 End: 04-10-2023 F18 FDG radio-isotope injection 12 millicurie famotidine 20 mg oral tablet (6 sources) Histamine-2 Receptor Antagonist Start: 08-19-2022 End: 08-19-2022 famotidine (Pepcid) tablet 20 mg Start: 05-30-2022 End: 05-30-2022 famotidine (Pepcid) tablet 2 0 mg Start: 12-30-2019 End: 12-30-2019 famotidine (PEPCID) injectio n 20 mg Start: 12-09-2019 End: 12-09-2019 famotidine (PEPCID) tablet 2 0 mg 2 ml fentaNYL 0.05 mg/ml injection (12 sources) Opioid Agonist Start: 10-06-2023 End: 10-06-2023 fentaNYL (Sublimaze) injection 50 mcg Start: 10-06-2023 End: 10-06-2023 fentaNYL (Sublimaze) injecti on 25 mcg Start: 08-19-2022 End: 08-19-2022 fentaNYL (Sublimaze) injecti on 50 mcg Start: 08-19-2022 End: 08-19-2022 fentaNYL (Sublimaze) injecti on 25 mcg Start: 12-18-2020 End: 12-18-2020 fentaNYL (SUBLIMAZE) injecti on Start: 12-09-2019 fentaNYL (SUBL IMAZE) injection 50 mcg Start: 12-09-2019 fentaNYL (SUBL IMAZE) injection 25 mcg ferrous sulfate 325 mg delayed release oral tablet (12 sources) Start: 12-19-2017 End: 09-21-2018 take 1 tablet by mouth twice daily Ferrous Sulfate 325 MG tablet,delayed release (DR/EC) Discontinued 325 mg PO TWICE A DAY 60 December 19, 2017 12:00am September 21, 2018 1:17pm fosaprepitant (EMEND) 150 mg in sodium chloride 0.9 % 250 mL IVPB (9 sources) Start: 08-10-2020 End: 08-10-2020 fosaprepitant (EMEND) 150 mg in sodium chloride 0.9 % 250 mL IVPB Start: 07-20-2020 End: 07-20-2020 fosaprepitant (EMEND) 150 mg in sodium chloride 0.9 % 250 mL IVPB Start: 06-29-2020 End: 06-29-2020 fosaprepitant (EMEND) 150 mg in sodium chloride 0.9 % 250 mL IVPB Start: 04-19-2020 End: 04-19-2020 fosaprepitant (EMEND) 150 mg in sodium chloride 0.9 % 250 mL IVPB Start: 03-23-2020 End: 03-23-2020 fosaprepitant (EMEND) 150 mg in sodium chloride 0.9 % 250 mL IVPB Start: 03-02-2020 End: 03-02-2020 fosaprepitant (EMEND) 150 mg in sodium chloride 0.9 % 250 mL IVPB Start: 02-10-2020 End: 02-10-2020 fosaprepitant (EMEND) 150 mg in sodium chloride 0.9 % 250 mL IVPB Start: 01-20-2020 End: 01-20-2020 fosaprepitant (EMEND) 150 mg in sodium chloride 0.9 % 250 mL IVPB Start: 12-30-2019 End: 12-30-2019 fosaprepitant (EMEND) 150 mg in sodium chloride 0.9 % 250 mL IVPB gadobutrol (GADAVIST) injection 10 mL (1 source) Start: 10-11-2021 End: 10-11-2021 gadobutrol (GADAVIST) injection 10 mL glucagon (rdna) 1 mg injection (4 sources) Antihypoglycemic Agent Start: 10-06-2023 End: 10-06-2023 glucagon (human recombinant) injection 1 mg Start: 08-19-2022 End: 08-19-2022 glucagon (human recombinant) injection 1 mg 150 ml glucose 50 mg/ml inje ction (8 sources) Start: 10-06-2023 End: 10-06-2023 dextrose 5 % infusion Start: 10-06-2023 End: 10-06-2023 dextrose 50 % solution 12.5 g Start: 08-19-2022 End: 08-19-2022 dextrose 5 % infusion Start: 08-19-2022 End: 08-19-2022 dextrose 50 % solution 12.5 g hydrocortisone 100 mg injection (4 sources) Corticosteroid Start: 12-30-2019 End: 12-30-2019 hydrocortisone sodium succinate PF (SOLU-CORTEF) injection 100 mg Start: 12-28-2019 hydrocortisone (ANUSOL-HC) 25 MG suppository Indications: Hemorrhoids, unspecified hemorrhoid type Place 1 suppository rectally every 12 hours 12 suppository 0 12/28/2019 Active insulin lispro 100 unt/ml injectable solution (4 sources) Insulin Analog Start: 10-06-2023 End: 10-06-2023 Insulin Lispro (Humalog) injection 0-12 Units Start: 08-19-2022 End: 08-19-2022 Insulin Lispro (Humalog) inj ection 0-12 Units iopamidol (ISOVUE-300) 61 % injection 100 mL (1 source) Start: 10-26-2019 End: 10-26-2019 iopamidol (ISOVUE-300) 61 % injection 100 mL iopamidol (ISOVUE-370) 76 % injection 100 mL (2 sources) Start: 09-07-2020 End: 09-07-2020 iopamidol (ISOVUE-370) 76 % injection 100 mL Start: 02-29-2020 End: 02-29-2020 iopamidol (ISOVUE-370) 76 % injection 100 mL iopamidol (ISOVUE-370) 76 % injection 75 mL (1 source) Start: 05-26-2020 End: 05-26-2020 iopamidol (ISOVUE-370) 76 % injection 75 mL isopropyl alcohol 0.7 ml/ml medicated pad (2 sources) Start: 08-19-2022 End: 08-19-2022 Nozin Nasal Family Physician Popswa b 2 Swab labetalol (Normodyne,Trandat e) injection 5 mg (4 sources) Start: 10-06-2023 End: 10-06-2023 labetalol (Normodyne,Trandat e) injection 5 mg Start: 08-19-2022 End: 08-19-2022 labetalol (Normodyne,Trandat e) injection 5 mg lisinopril 10 mg oral tablet (20 sources) Angiotensin Converting Enzyme Inhibitor Start: 10-19-2020 End: 09-30-2023 take 1 tablet by mouth in the morning lisinopril 10 MG tablet Take 1 tablet by mouth in the morning. 10/19/2020 09/30/2023 Discontinued (Therapy completed) megestrol acetate 40 mg oral tablet (4 sources) Progestin Start: 09-01-2020 megestrol (MEGACE) 40 MG tablet Indications: Endometrial cancer (HCC) Take 2 tablets by mouth 2 times daily For 3 weeks then alternate with tamoxifen 84 tablet 5 09/01/2020 Suspended miconazole nitrate 40 mg/ml vaginal cream (20 sources) Azole Antifungal Start: 11-14-2022 End: 09-30-2023 Miconazole Nitrate 4 % cream Indications: Vulvar irritation Insert 1 Application into the vagina 2 times daily as needed (itching). 25 g 11/14/2022 09/30/2023 Discontinued (Therapy completed) 2 ml midazolam 1 mg/ml injection (2 sources) Benzodiazepine Start: 12-18-2020 End: 12-18-2020 midazolam (VERSED) injection 2 ml ondansetron 2 mg/ml injection (20 sources) Serotonin-3 Receptor Antagonist Start: 10-06-2023 End: 10-06-2023 ondansetron (Zofran) injection 4 mg Start: 08-19-2022 End: 08-19-2022 ondansetron (Zofran) injecti on 4 mg Start: 02-15-2021 ondansetron (Z ofran) 8 MG tablet Take 8 mg by mouth if needed. 11/23/2021 Active Start: 12-29-2020 take 1 tablet by rachelle th every eight hours as needed for nausea Ondansetron 4 mg tablet,disintegrating Active 4 mg PO EVERY 8 HOURS NEEDED as needed for Nausea December 29, 2020 12:00am Start: 12-20-2019 take 1 tablet by rachelle th every eight hours as needed for nausea ondansetron (ZOFRAN) 8 MG tablet Indications: Endometrial cancer (HCC) Take 1 tablet by mouth every 8 hours as needed for Nausea or Vomiting 35 tablet 3 12/20/2019 Active Start: 12-09-2019 End: 12-09-2019 ondansetron (ZOFRAN) injecti on 4 mg ondansetron (ZOFRAN) 8 mg, dexamethasone (DECADRON) 8 mg in sodium chloride 0.9 % 50 mL IVPB (1 source) Start: 08-14-2020 End: 08-14-2020 ondansetron (ZOFRAN) 8 mg, dexamethasone (DECADRON) 8 mg in sodium chloride 0.9 % 50 mL IVPB Ozempic, 0.25 or 0.5 MG/DOSE , 2 MG/3ML solution pen-injector (20 sources) Start: 03-05-2023 End: 09-30-2023 Ozempic, 0.25 or 0.5 MG/DOSE , 2 MG/3ML solution pen-injector 03/05/2023 09/30/2023 Discontinued (Therapy completed) Start: 03-05-2023 End: 09-30-2023 Ozempic, 0.25 or 0.5 MG/DOSE , 2 MG/3ML solution pen-injector Start: 03-05-2023 Ozempic, 0.25 or 0.5 MG/DOSE, 2 MG/3ML solution pen-injector PACLitaxel (TAXOL) 300 mg in sodium chloride 0.9 % 500 mL chemo infusion (4 sources) Start: 06-29-2020 End: 06-29-2020 PACLitaxel (TAXOL) 300 mg in sodium chloride 0.9 % 500 mL chemo infusion Start: 04-19-2020 End: 04-19-2020 PACLitaxel (TAXOL) 300 mg in sodium chloride 0.9 % 500 mL chemo infusion Start: 03-23-2020 End: 03-23-2020 PACLitaxel (TAXOL) 300 mg in sodium chloride 0.9 % 500 mL chemo infusion Start: 03-02-2020 End: 03-02-2020 PACLitaxel (TAXOL) 300 mg in sodium chloride 0.9 % 500 mL chemo infusion PACLitaxel (TAXOL) 306 mg in sodium chloride 0.9 % 500 mL chemo infusion (2 sources) Start: 08-10-2020 End: 08-10-2020 PACLitaxel (TAXOL) 306 mg in sodium chloride 0.9 % 500 mL chemo infusion Start: 07-20-2020 End: 07-20-2020 PACLitaxel (TAXOL) 306 mg in sodium chloride 0.9 % 500 mL chemo infusion PACLitaxel (TAXOL) 336 mg in sodium chloride 0.9 % 500 mL chemo infusion (3 sources) Start: 02-10-2020 End: 02-10-2020 PACLitaxel (TAXOL) 336 mg in sodium chloride 0.9 % 500 mL chemo infusion Start: 01-20-2020 End: 01-20-2020 PACLitaxel (TAXOL) 336 mg in sodium chloride 0.9 % 500 mL chemo infusion Start: 12-30-2019 End: 12-30-2019 PACLitaxel (TAXOL) 336 mg in sodium chloride 0.9 % 500 mL chemo infusion 5 ml palonosetron 0.05 mg/ml injection (9 sources) Serotonin-3 Receptor Antagonist Start: 08-10-2020 End: 08-10-2020 palonosetron (ALOXI) injection 0.25 mg Start: 07-20-2020 End: 07-20-2020 palonosetron (ALOXI) injecti on 0.25 mg Start: 06-29-2020 End: 06-29-2020 palonosetron (ALOXI) injecti on 0.25 mg Start: 04-19-2020 End: 04-19-2020 palonosetron (ALOXI) injecti on 0.25 mg Start: 03-23-2020 End: 03-23-2020 palonosetron (ALOXI) injecti on 0.25 mg Start: 03-02-2020 End: 03-02-2020 palonosetron (ALOXI) injecti on 0.25 mg Start: 02-10-2020 End: 02-10-2020 palonosetron (ALOXI) injecti on 0.25 mg Start: 01-20-2020 End: 01-20-2020 palonosetron (ALOXI) injecti on 0.25 mg Start: 12-30-2019 End: 12-30-2019 palonosetron (ALOXI) injecti on 0.25 mg pembrolizumab (KEYTRUDA) 200 mg in sodium chloride 0.9 % 100 mL chemo IVPB (8 sources) Start: 09-27-2021 End: 09-27-2021 pembrolizumab (KEYTRUDA) 200 mg in sodium chloride 0.9 % 100 mL chemo IVPB Start: 09-06-2021 End: 09-06-2021 pembrolizumab (KEYTRUDA) 200 mg in sodium chloride 0.9 % 100 mL chemo IVPB Start: 08-16-2021 End: 08-16-2021 pembrolizumab (KEYTRUDA) 200 mg in sodium chloride 0.9 % 100 mL chemo IVPB Start: 06-28-2021 End: 06-28-2021 pembrolizumab (KEYTRUDA) 200 mg in sodium chloride 0.9 % 100 mL chemo IVPB Start: 06-07-2021 End: 06-07-2021 pembrolizumab (KEYTRUDA) 200 mg in sodium chloride 0.9 % 100 mL chemo IVPB Start: 03-01-2021 End: 03-01-2021 pembrolizumab (KEYTRUDA) 200 mg in sodium chloride 0.9 % 100 mL chemo IVPB Start: 02-08-2021 End: 02-08-2021 pembrolizumab (KEYTRUDA) 200 mg in sodium chloride 0.9 % 100 mL chemo IVPB Start: 12-28-2020 End: 12-28-2020 pembrolizumab (KEYTRUDA) 200 mg in sodium chloride 0.9 % 100 mL chemo IVPB pembrolizumab (KEYTRUDA) 400 mg in sodium chloride 0.9 % 100 mL chemo IVPB (2 sources) Start: 11-29-2021 End: 11-29-2021 pembrolizumab (KEYTRUDA) 400 mg in sodium chloride 0.9 % 100 mL chemo IVPB Start: 10-18-2021 End: 10-18-2021 pembrolizumab (KEYTRUDA) 400 mg in sodium chloride 0.9 % 100 mL chemo IVPB 5 ml sodium chloride 9 mg/ml injection (20 sources) Start: 10-06-2023 End: 10-06-2023 sodium chloride 0.9% (NS) fl ush 10 mL Start: 10-06-2023 End: 10-06-2023 sodium chloride 0.9% (NS) fl ush 10 mL Start: 10-06-2023 End: 10-06-2023 sodium chloride 0.9 % bolus 500 mL Start: 10-06-2023 End: 10-06-2023 sodium chloride 0.9 % infusi on Start: 10-06-2023 End: 10-06-2023 sodium chloride 0.9% (NS) fl ush 10 mL Start: 08-19-2022 End: 08-19-2022 sodium chloride 0.9 % bolus 500 mL Start: 08-19-2022 End: 08-19-2022 sodium chloride 0.9 % infusi on Start: 08-19-2022 End: 08-19-2022 sodium chloride 0.9% (NS) fl ush 10 mL Start: 11-29-2021 End: 11-30-2021 sodium chloride flush 0.9 % injection 5-40 mL Start: 11-29-2021 End: 11-29-2021 0.9 % sodium chloride infusi on Start: 10-18-2021 End: 10-19-2021 sodium chloride flush 0.9 % injection 5-40 mL Start: 10-18-2021 End: 10-18-2021 0.9 % sodium chloride infusi on Start: 09-27-2021 End: 09-28-2021 sodium chloride flush 0.9 % injection 5-40 mL Start: 09-27-2021 End: 09-27-2021 0.9 % sodium chloride infusi on Start: 09-06-2021 0.9 % sodium c hloride infusion Start: 09-06-2021 End: 09-07-2021 sodium chloride flush 0.9 % injection 5-40 mL Start: 08-16-2021 End: 08-17-2021 sodium chloride flush 0.9 % injection 5-40 mL Start: 08-16-2021 End: 08-16-2021 0.9 % sodium chloride infusi on Start: 06-28-2021 End: 06-29-2021 sodium chloride flush 0.9 % injection 5-40 mL Start: 06-28-2021 End: 06-28-2021 0.9 % sodium chloride infusi on Start: 06-07-2021 End: 06-08-2021 sodium chloride flush 0.9 % injection 5-40 mL Start: 06-07-2021 End: 06-07-2021 0.9 % sodium chloride bolus Start: 03-01-2021 End: 03-02-2021 sodium chloride flush 0.9 % injection 5-40 mL Start: 03-01-2021 End: 03-01-2021 0.9 % sodium chloride infusi on Start: 02-08-2021 End: 02-09-2021 sodium chloride flush 0.9 % injection 5-40 mL Start: 02-08-2021 End: 02-08-2021 0.9 % sodium chloride infusi on Start: 12-28-2020 End: 12-28-2020 0.9 % sodium chloride infusi on Start: 12-27-2020 End: 12-29-2020 sodium chloride flush 0.9 % injection 5-40 mL Start: 12-18-2020 0.9 % sodium c hloride infusion Start: 08-14-2020 End: 08-14-2020 0.9 % sodium chloride bolus Start: 08-10-2020 End: 08-10-2020 0.9 % sodium chloride infusi on Start: 07-20-2020 End: 07-20-2020 0.9 % sodium chloride infusi on Start: 06-29-2020 End: 06-29-2020 0.9 % sodium chloride infusi on Start: 04-19-2020 End: 04-19-2020 0.9 % sodium chloride infusi on Start: 03-23-2020 End: 03-23-2020 0.9 % sodium chloride infusi on Start: 03-02-2020 End: 03-02-2020 0.9 % sodium chloride infusi on Start: 02-10-2020 End: 02-10-2020 0.9 % sodium chloride infusi on Start: 01-20-2020 End: 01-20-2020 0.9 % sodium chloride infusi on Start: 12-30-2019 End: 12-30-2019 0.9 % sodium chloride infusi on Start: 12-09-2019 sodium chlorid e flush 0.9 % injection 10 mL sulfamethoxazole 800 mg / trimethoprim 160 mg oral tablet (5 sources) Dihydrofolate Reductase Inhibitor Antibacterial, Sulfonamide Antimicrobial Start: 03-22-2024 End: 05-04-2024 Sulfamethoxazole-Trimethopri m 800-160 mg tablet Discontinued 1 {tbl} PO TWICE A DAY March 22, 2024 1:00am May 04, 2024 7:49am Start: 03-01-2021 End: 03-06-2021 take 1 tablet by mouth twice daily sulfamethoxazole-trimethoprim (BACTRIM DS;SEPTRA DS) 800-160 MG per tablet Take 1 tablet by mouth 2 times daily for 5 days 10 tablet 5 03/01/2021 03/06/2021 Active Start: 02-21-2021 End: 02-26-2021 take 1 tablet by mouth twice daily sulfamethoxazole-trimethoprim (BACTRIM DS;SEPTRA DS) 800-160 MG per tablet Indications: Dysuria Take 1 tablet by mouth 2 times daily for 5 days 10 tablet 0 02/21/2021 02/26/2021 Active tamoxifen 20 mg oral tablet (4 sources) Estrogen Agonist/Antagonist Start: 09-01-2020 tamoxifen (NOLVADEX) 20 MG tablet Indications: Endometrial cancer (HCC) Take 1 tablet by mouth 2 times daily Take for 3 weeks then alternate with Megace 42 tablet 5 09/01/2020 Suspended 12 hr timolol 5 mg/ml ophthalmic solution (3 sources) beta-Adrenergic Vinay End: 12-09-2019 take 1 drop(s) into the eye(s) twice daily timolol (BETIMOL) 0.5 % ophthalmic solution 1 drop 2 times daily 0 12/09/2019 Discontinued (Stop Taking at Discharge) traZODone hydrochloride 100 mg oral tablet (20 sources) Serotonin Reuptake Inhibitor Start: 07-11-2022 End: 11-12-2024 take 1 tablet by mouth once daily traZODone (Desyrel) 100 MG tablet Indications: Recurrent carcinoma of endometrium (HCC) , Anxiety associated with cancer diagnosis (HCC) Take 1 tablet (100 mg) by mouth Nightly. 30 tablet 09/14/2024 10/13/2024 Discontinued (Reorder) Start: 04-17-2022 End: 05-17-2022 take 1 tablet by mouth once daily traZODone (Desyrel) 100 MG tablet Indications: Endometrial cancer (CMS/HCC) (HCC) Take 1 tablet (100 mg) by mouth Nightly. 30 tablet 3 04/17/2022 Active Start: 09-27-2021 take 1 tablet by [facility] once daily as needed for sleep traZODone (DESYREL) 50 MG tablet Indications: Primary insomnia Take 1 tablet by mouth nightly as needed for Sleep 30 tablet 5 09/27/2021 Active triamcinolone acetonide 0.001 mg/mg topical ointment (20 sources) Corticosteroid Start: 02-13-2023 End: 10-06-2023 triamcinolone (Kenalog) 0.1 % ointment Indications: Vulvar irritation Apply topically 2 times daily. 80 g 3 02/13/2023 10/06/2023 Discontinued (Stop taking at discharge) 24 hr venlafaxine 37.5 mg extended release oral capsule (5 sources) Serotonin and Norepinephrine Reuptake Inhibitor Start: 03-11-2024 End: 05-10-2024 take 1 capsule by mouth once daily venlafaxine XR (Effexor XR) 37.5 MG 24 hr capsule Indications: Recurrent carcinoma of endometrium (HCC) , Current mild episode of major depressive disorder, unspecified whether recurrent (HCC) Take 1 capsule (37.5 mg) by mouth daily. Do not crush or chew. 30 capsule 1 03/11/2024 04/08/2024 Discontinued (Ineffective) Problems Active Problems Problem Classification Problem Date Documented Date Episodic/Chronic Abdominal pain (20 sources) Acute abdominal pain; Translations: [Left lower quadrant pain] Onset: 09-03-2024 12-09-2020 Episodic Acute cerebrovascular disease (12 sources) Cerebrovascular accident; Translations: [Cerebral infarction, unspecified] 09-21-2018 Chronic Anxiety disorders (20 sources) Anxiety disorder due to a general medical condition; Translations: [Generalized anxiety disorder] Onset: 04-08-2024 Chronic Cancer of uterus (20 sources) Malignant neoplasm of endometrium of corpus uteri ; Translations: [Malignant neoplasm of endometrium] Onset: 01-23-2018 01-23-2018 Chronic Comment on above: lisette/khang refer ral Complication of device; implant or graft (20 sources) Arteriovenous fistula occlusion; Translations: [Other specified complication of vascular prosthetic devices, implants and grafts, initial encounter] Onset: 06-13-2021 06-13-2021 Chronic Diabetes mellitus with complications (17 sources) Hyperglycemia due to type 2 diabetes mellitus; Translations: [Type 2 diabetes mellitus with hyperglycemia] 04-24-2021 Chronic Diabetes mellitus without complication (6 sources) Type 2 diabetes mellitus without complication; Translations: [Type 2 diabetes mellitus without complications] Onset: 03-11-2024 03-11-2024 Chronic Essential hypertension (1 source) Hypertensive disorder; Translations: [Essential (primary) hypertension] Chronic Glaucoma (12 sources) Glaucoma; Translations: [Unspecified glaucoma] 09-21-2018 Chronic Inflammatory diseases of female pelvic organs (7 sources) Ulceration of vulva; Translations: [Ulceration of vulva] 01-16-2023 Episodic Maintenance chemotherapy; radiotherapy (2 sources) Patient encounter status; Translations: [Encounter for antineoplastic chemotherapy] Chronic Malaise and fatigue (2 sources) Chronic fatigue, unspecified; Translations: [Chronic fatigue, unspecified] Onset: 03-11-2024 Chronic Malignant neoplasm without specification of site (2 sources) Malignant (primary) neoplasm, unspecified; Translations: [Malignant (primary) neoplasm, unspecified (HCC)] Onset: 04-08-2024 Chronic Menopausal disorders (12 sources) Postmenopausal bleeding; Translations: [Postmenopausal bleeding] 09-21-2018 Chronic Mood disorders (3 sources) Mild major depression, single episode; Translations: [Major depressive disorder, single episode, mild] Onset: 03-11-2024 03-11-2024 Chronic Nausea and vomiting (3 sources) Nausea; Translations: [Nausea] Onset: 05-27-2024 08-04-2023 Episodic Other circulatory disease (3 sources) Elevated blood-pressure reading without diagnosis of hypertension; Translations: [Elevated blood-pressure reading, without diagnosis of hypertension] 05-12-2024 Episodic Other complications of ; puerperium affecting management of mother (6 sources) delivery - delivered; Translations: [Encounter for delivery without indication] Episodic Other complications of ; puerperium affecting management of mother (6 sources) Deliveries by ; Translations: [Encounter for delivery without indication] 09-21-2018 Episodic Other diseases of veins and lymphatics (1 source) Difficult venous access; Translations: [Other specified disorders of veins] Episodic Other female genital disorders (3 sources) Vulval irritation; Translations: [Other specified noninflammatory disorders of vulva and perineum] 11-14-2022 Episodic Other lower respiratory disease (2 sources) Dyspnea; Translations: [Shortness of breath] Episodic Other lower respiratory disease (3 sources) Cough; Translations: [Cough] 07-18-2024 Episodic Other lower respiratory disease (3 sources) Solitary nodule of lung; Translations: [Solitary pulmonary nodule] 04-29-2023 Episodic Other nervous system disorders (20 sources) Pain due to neoplastic disease; Translations: [Neoplasm related pain (acute) (chronic)] Chronic Other nervous system disorders (2 sources) Neuropathy; Translations: [Polyneuropathy, unspecified] 10-30-2023 Chronic Other nervous system disorders (2 sources) Neoplasm related pain (acute) (chronic); Translations: [Neoplasm related pain (acute) (chronic)] Onset: 04-08-2024 Chronic Other nervous system disorders (2 sources) Polyneuropathy, unspecified; Translations: [Polyneuropathy, unspecified] Onset: 10-30-2023 Chronic Other nervous system disorders (3 sources) Ataxia; Translations: [Ataxia, unspecified] 03-30-2024 Episodic Other nutritional; endocrine; and metabolic disorders (1 source) Body mass index 30+ - obesity; Translations: [Body mass index (BMI) 35.0-35.9, adult] Chronic Other screening for suspected conditions (not mental disorders or infectious disease) (1 source) Blood chemistry abnormal; Translations: [Other specified abnormal findings of blood chemistry] Episodic Other upper respiratory disease (3 sources) Congestion of nasal sinus; Translations: [Nasal congestion] 07-18-2024 Episodic Residual codes; unclassified (4 sources) Postoperative state; Translations: [Other specified postprocedural states] Episodic Residual codes; unclassified (3 sources) Disorientated; Translations: [Disorientation, unspecified] 03-30-2024 Episodic Secondary malignancies (20 sources) Secondary malignant neoplasm of intra-abdominal lymph nodes; Translations: [Secondary and unspecified malignant neoplasm of intra-abdominal lymph nodes] Onset: 12-09-2019 12-09-2019 Chronic Secondary malignancies (2 sources) Regional lymph node metastasis present ; Translations: [Secondary and unspecified malignant neoplasm of lymph node, unspecified] Chronic Secondary malignancies (1 source) Secondary malignant neoplasm of pelvis; Translations: [Secondary malignant neoplasm of genital organs] Chronic Secondary malignancies (10 sources) Secondary malignant neoplasm of vagina; Translations: [Secondary malignant neoplasm of genital organs] Chronic Secondary malignancies (2 sources) Secondary malignant neoplasm of genital organs; Translations: [Secondary malignant neoplasm of genital organs] Onset: 10-11-2021 Chronic Secondary malignancies (1 source) 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; Translations: [Secondary malignant neoplasm of genital organs] Chronic Secondary malignancies (20 sources) Secondary malignant neoplasm of retroperitoneal lymph nodes; Translations: [Secondary and unspecified malignant neoplasm of intra-abdominal lymph nodes] Onset: 12-09-2019 02-01-2022 Chronic Secondary malignancies (5 sources) Secondary malignant neoplasm of right lung; Translations: [Secondary malignant neoplasm of right lung] 05-01-2023 Chronic Secondary malignancies (3 sources) Secondary malignant neoplasm of lung; Translations: [Secondary malignant neoplasm of unspecified lung] 05-30-2023 Chronic Transient cerebral ischemia (12 sources) Transient cerebral ischemia; Translations: [Transient cerebral ischemic attack, unspecified] 09-21-2018 Chronic Unclassified (1 source) Patient encounter status; Translations: [Encounter for chemotherapy management] Unclassified (1 source) Cough, unspecified; Translations: [Cough, unspecified] Onset: 07-21-2024 Urinary tract infections (20 sources) Urinary tract infectious disease; Translations: [Urinary tract infection, site not specified] 04-24-2021 Episodic Viral infection (3 sources) Acute viral disease; Translations: [Viral infection, unspecified] 07-18-2024 Episodic Past or Other Problems Problem Classification Problem Date Documented Date Episodic/Chronic Diabetes mellitus without complication (3 sources) Hyperglycemia; Translations: [Hyperglycemia, unspecified] Onset: 03-11-2024 03-11-2024 Episodic Disorders of teeth and jaw (3 sources) Toothache; Translations: [Other specified disorders of teeth and supporting structures] Onset: 05-20-2024 05-20-2024 Episodic Fluid and electrolyte disorders (20 sources) Dehydration; Translations: [Dehydration] Onset: 08-14-2020 Episodic Genitourinary symptoms and ill-defined conditions (1 source) Urgent desire to urinate; Translations: [Urgency of urination] Episodic Malaise and fatigue (2 sources) Asthenia; Translations: [Weakness] Onset: 04-22-2024 Episodic Mood disorders (20 sources) Mood disorders Onset: 01-31-2022 Resolved: 01-31-2022 02-13-2022 Other female genital disorders (3 sources) Vaginal lesion; Translations: [Other specified noninflammatory disorders of vagina] Episodic Other female genital disorders (2 sources) Noninflammatory disorder of the vagina; Translations: [Other specified noninflammatory disorders of vagina] Episodic Residual codes; unclassified (20 sources) History of laparoscopy; Translations: [Other specified postprocedural states] Onset: 12-09-2019 12-09-2019 Episodic Residual codes; unclassified (3 sources) H/O: radiation exposure; Translations: [Personal history of irradiation] Onset: 01-29-2024 Episodic Residual codes; unclassified (1 source) Personal history of irradiation; Translations: [Personal history of irradiation] Onset: 01-29-2024 Episodic Unclassified (8 sources) s/p radiation 07-31-2022 Comment on above: for uterine cancer J -May 2018 Results Test Name Value Interpretation Reference Range Facility 10-13-2024 29 Addended by: EZIO LORENZO on: 10/13/2024 11:00 AM Modules accepted: Orders [facility] 36on 10-13-2024 36 Patient called back stating she forgot that she also needs Trazadone. [facility] 36 No early fills, not yet appropriate for refill . Due for oxycodone to be filled 10/21/24, ativan to be filled on 10/21/24. [facility] 36 Confirmed patient Name and : Yes Medication name(s) and dose(s) requested: Oxycodone (Roxicodone) 5 mg ir tablet Lorazepam (ativan) 1 mg tablet Approximate number of pills available in the home: 4 tablets left 0 tablets left Confirmed and updated correct pharmacy: Yes Reminded patient of 3 business day refill policy on all medication refill requests: Yes Notified patient to call pharmacy to confirm prescription ready for pickup and to call office if not available within 3 business days: Yes Date of last appointment: 07/15/24 Date of next appointment: 10/21/[address] [facility] 36on 10-01-2024 36 Prescription Refill Request Patient Name: Danny Pink PCP: Donovan Hernandez Past Medical History: Medical History[1] Past Surgical History: Surgical History[2] Allergies: Allergies[3] Problem List: does not have any pertinent problems on file. Current Medication List:Current Medications[4] Telephone call placed to patient. The identity and location of the patient was confirmed and informed consent for treatment through a remote examination was obtained. The patient's diagnosis was confirmed and necessity for prescribed drug was verified. Drug(s) to be refilled: Requested Prescriptions Signed Prescriptions Disp Refills oxyCODONE (Roxicodone) 5 MG immediate release tablet 120 tablet 0 Sig: Take 1-2 tablets (5-10 mg) by mouth every 4 hours as needed for severe pain (7-10) for up to 20 days. Authorizing Provider: ALKA CASON LORazepam (Ativan) 1 MG tablet 60 tablet 0 Sig: Take 1 tablet (1 mg) by mouth every 6 hours as needed for anxiety. Authorizing Provider: ALKA CASON The patient has underlying conditions or contraindications which preclude continuation of the medication at this time: No, Refill provided {Put your decision support here (Optional): [id number]: If the medication(s) being refilled is (are) a controlled substance please verify the following: The person is an active patient of a licensed practitioner who is a colleague of the provider Yes Drugs are being prescribed pursuant to an on-call or cross coverage agreement {Blank single:43536:: Yes, No, N/A OARRS report reviewed: Yes Referrals placed: N/A Follow-Up Care and Testing: No follow-ups on file. 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 Affected short term memory, had to relearn things, locations. [2] Past Surgical History: Procedure Laterality Date CATARACT EXTRACTION Left CATARACT EXTRACTION W/ INTRAOCULAR LENS IMPLANT Right 07/09/2021 SECTION (HISTORICAL) x2. Pfannenstiel incisions. COLONOSCOPY DILATION AND CURETTAGE OF UTERUS 12/19/2017 Dr Brittny Gan[facility] ENDOMETRIAL BIOPSY IR CVC MEDIPORT PLACEMENT OTHER SURGICAL HISTORY 12/09/2019 Robotic Fe-Aortic Biopsy TONSILLECTOMY (HISTORICAL) TOTAL ABDOMINAL HYSTERECTOMY 01/19/2018 Robotic hysterectomy, BSO, right pelvic sentinel LNB, left pelvic lymphadenectomy-Dr. Khang Tapia [facility] TUBAL LIGATION UPPER GASTROINTESTINAL ENDOSCOPY [3] Allergies Allergen Reactions Morphine Anaphylaxis and Shortness of breath Codeine Rash and Nausea And Vomiting Other reaction(s): Other (See Comments), Upset Stomach [4] Current Outpatient Medications: albuterol 108 (90 Base) MCG/ACT inhaler, Inhale 90 each if needed., Disp: , Rfl: aspirin 81 MG chewable tablet, Chew 81 mg daily., Disp: , Rfl: bisacodyl (Dulcolax) 5 MG EC tablet, Take 10 mg by mouth if needed., Disp: , Rfl: brimonidine (AlphaGAN P) 0.2 % ophthalmic solution, Administer 1 drop into both eyes Nightly., Disp: , Rfl: calcium carbonate (Os-Papito) 1250 (500 Ca) MG chewable tablet, Chew 1 tablet if needed., Disp: , Rfl: cholecalciferol (Vitamin D-3) 50 MCG (2000 UT) capsule, Take 1 capsule (50 mcg) by mouth in the morning., Disp: 30 capsule, Rfl: 2 dicyclomine (Bentyl) 10 MG capsule, Take 10 mg by mouth if needed., Disp: , Rfl: gabapentin (Neurontin) 300 MG capsule, Take 1 capsule (300 mg) by mouth 2 times daily., Disp: 60 capsule, Rfl: 0 ketorolac (Acular) 0.5 % ophthalmic solution, , Disp: , Rfl: latanoprost (Xalatan) 0.005 % ophthalmic solution, Administer 1 drop into both eyes Nightly., Disp: , Rfl: LORazepam (Ativan) 1 MG tablet, Take 1 tablet (1 mg) by mouth every 8 hours as needed for anxiety for up to 20 days., Disp: 60 tablet, Rfl: 0 LORazepam (Ativan) 1 MG tablet, Take 1 tablet (1 mg) by mouth every 6 hours as needed for anxiety., Disp: 60 tablet, Rfl: 0 metFORMIN XR (Glucophage-XR) 500 MG 24 hr tablet, Take 1,000 mg by mouth in the morning and 1,000 mg in the evening., Disp: , Rfl: Misc. Devices (Sitz Bath) misc, Use for pain relief as needed, Disp: 1 each, Rfl: 0 Misc. Devices (Collins Bottle/Plastic 120mL) misc, Use to clean area as needed, Disp: 1 each, Rfl: 0 naloxone (Narcan) 4 mg/0.1 mL nasal spray, Administer 4 mg into affected nostril(s) if needed., Disp: , Rfl: ofloxacin (Ocuflox) 0.3 % ophthalmic solution, , Disp: , Rfl: omeprazole (PriLOSEC) [address] capsule, Take 1 capsule (40 mg) by mouth every morning (before breakfast). Do not crush or chew., Disp: 30 capsule, Rfl: 11 ondansetron (Zofran) 8 MG tablet, Take 8 mg by mouth if needed., Disp: , Rfl: oxyCODONE (Roxicodone) 5 MG immediate release table (more content not included)... [facility] 36 Confirmed patient Name and : Yes Medication name(s) and dose(s) requested: Lorazepam (Ativan) 1 MG Tablets Oxycodone (roxicodone) 5 MG IR Tablets Approximate number of pills available in the home: Oxycodone- 2 Left Ativan- None Left Confirmed and updated correct pharmacy: Yes Reminded patient of 3 business day refill policy on all medication refill requests: Yes Notified patient to call pharmacy to confirm prescription ready for pickup and to call office if not available within 3 business days: Yes Date of last appointment: 07/15/24 Date of next appointment: 10/21/[address] [facility] 09-14-2024 36 Confirmed patient Name and : Yes Medication name(s) and dose(s) requested: Trazodone (Desyrel) 100 MG Tablets Approximate number of pills available in the home: None Left Confirmed and updated correct pharmacy: Yes Reminded patient of 3 business day refill policy on all medication refill requests: Yes Notified patient to call pharmacy to confirm prescription ready for pickup and to call office if not available within 3 business days: Yes Date of last appointment: 07/15/24 Date of next appointment: 10/21/[address] [facility] 09-06-2024 29 Addended by: ALKA CASON on: 09/06/2024 02:01 PM Modules accepted: Orders [facility] 09-06-2024 36 Prescription Refill Request Patient Name: Danny Pink PCP: Donovan Hernandez Past Medical History: Medical History[1] Past Surgical History: Surgical History[2] Allergies: Allergies[3] Problem List: does not have any pertinent problems on file. Current Medication List:Current Medications[4] Telephone call placed to patient. The identity and location of the patient was confirmed and informed consent for treatment through a remote examination was obtained. The patient's diagnosis was confirmed and necessity for prescribed drug was verified. Drug(s) to be refilled: Requested Prescriptions No prescriptions requested or ordered in this encounter The patient has underlying conditions or contraindications which preclude continuation of the medication at this time: No, Refill provided {Put your decision support here (Optional): [id number]: If the medication(s) being refilled is (are) a controlled substance please verify the following: The person is an active patient of a licensed practitioner who is a colleague of the provider Yes Drugs are being prescribed pursuant to an on-call or cross coverage agreement {Blank single:05114:: Yes, No, N/A OARRS report reviewed: Yes Referrals placed: N/A Follow-Up Care and Testing: No follow-ups on file. 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 Affected short term memory, had to relearn things, locations. [2] Past Surgical History: Procedure Laterality Date CATARACT EXTRACTION Left CATARACT EXTRACTION W/ INTRAOCULAR LENS IMPLANT Right 07/09/2021 SECTION (HISTORICAL) x2. Pfannenstiel incisions. COLONOSCOPY DILATION AND CURETTAGE OF UTERUS 12/19/2017 Dr Brittny Gan[facility] ENDOMETRIAL BIOPSY IR CVC MEDIPORT PLACEMENT OTHER SURGICAL HISTORY 12/09/2019 Robotic Fe-Aortic Biopsy TONSILLECTOMY (HISTORICAL) TOTAL ABDOMINAL HYSTERECTOMY 01/19/2018 Robotic hysterectomy, BSO, right pelvic sentinel LNB, left pelvic lymphadenectomy-Dr. Khang Tapia [facility] TUBAL LIGATION UPPER GASTROINTESTINAL ENDOSCOPY [3] Allergies Allergen Reactions Morphine Anaphylaxis and Shortness of breath Codeine Rash and Nausea And Vomiting Other reaction(s): Other (See Comments), Upset Stomach [4] Current Outpatient Medications: albuterol 108 (90 Base) MCG/ACT inhaler, Inhale 90 each if needed., Disp: , Rfl: aspirin 81 MG chewable tablet, Chew 81 mg daily., Disp: , Rfl: bisacodyl (Dulcolax) 5 MG EC tablet, Take 10 mg by mouth if needed., Disp: , Rfl: brimonidine (AlphaGAN P) 0.2 % ophthalmic solution, Administer 1 drop into both eyes Nightly., Disp: , Rfl: calcium carbonate (Os-Papito) 1250 (500 Ca) MG chewable tablet, Chew 1 tablet if needed., Disp: , Rfl: cholecalciferol (Vitamin D-3) 50 MCG (2000 UT) capsule, Take 1 capsule (50 mcg) by mouth in the morning., Disp: 30 capsule, Rfl: 2 dicyclomine (Bentyl) 10 MG capsule, Take 10 mg by mouth if needed., Disp: , Rfl: gabapentin (Neurontin) 300 MG capsule, Take 1 capsule (300 mg) by mouth 2 times daily., Disp: 60 capsule, Rfl: 0 ketorolac (Acular) 0.5 % ophthalmic solution, , Disp: , Rfl: latanoprost (Xalatan) 0.005 % ophthalmic solution, Administer 1 drop into both eyes Nightly., Disp: , Rfl: LORazepam (Ativan) 1 MG tablet, Take 1 tablet (1 mg) by mouth every 8 hours as needed for anxiety for up to 20 days., Disp: 60 tablet, Rfl: 0 LORazepam (Ativan) 1 MG tablet, Take 1 tablet (1 mg) by mouth every 6 hours as needed for anxiety., Disp: 60 tablet, Rfl: 0 metFORMIN XR (Glucophage-XR) 500 MG 24 hr tablet, Take 1,000 mg by mouth in the morning and 1,000 mg in the evening., Disp: , Rfl: Misc. Devices (Sitz Bath) misc, Use for pain relief as needed, Disp: 1 each, Rfl: 0 Misc. Devices (Collins Bottle/Plastic 120mL) misc, Use to clean area as needed, Disp: 1 each, Rfl: 0 naloxone (Narcan) 4 mg/0.1 mL nasal spray, Administer 4 mg into affected nostril(s) if needed., Disp: , Rfl: ofloxacin (Ocuflox) 0.3 % ophthalmic solution, , Disp: , Rfl: omeprazole (PriLOSEC) [address] capsule, Take 1 capsule (40 mg) by mouth every morning (before breakfast). Do not crush or chew., Disp: 30 capsule, Rfl: 11 ondansetron (Zofran) 8 MG tablet, Take 8 mg by mouth if needed., Disp: , Rfl: oxyCODONE (Roxicodone) 5 MG immediate release tablet, Take 1-2 tablets (5-10 mg) by mouth every 4 hours as needed for severe pain (7-10) for up to 20 days., Disp: 120 tablet, Rfl: 0 pantoprazole (ProtoNix) 40 MG EC tablet, Take 40 mg by mouth if needed., Disp: , Rfl: prednisoLONE acetate (Pred-Forte) 1 % ophthalmic suspension, , Disp: , Rfl: prochlorperazine (Compazine) 10 MG tablet, Take 1 t (more content not included)... Normal [facility] 36 Confirmed patient Name and : Yes Medication name(s) and dose(s) requested: Lorazepam (Ativan) 1 m tablet Oxycodone (Roxicodone) 5 mg ir tablet Approximate number of pills available in the home: 2 tablets left 0 tablets left Confirmed and updated correct pharmacy: Yes Reminded patient of 3 business day refill policy on all medication refill requests: Yes Notified patient to call pharmacy to confirm prescription ready for pickup and to call office if not available within 3 business days: Yes Date of last appointment: 07/15/24 Date of next appointment: 09/09/24 Reminded pt up upcoming f/up date and time. Normal [facility] Absolute lymphocyte countOrd ered By: Donovan Hernandez on 09-01-2024 Lymphocytes Auto (Unsp spec) [#/Vol] 0.58 10*3/uL Low 0.83-4.51 [facility] Absolute neutrophil countOrd ered By: Donovan Hernandez on 09-01-2024 Neutrophils (Bld) [#/Vol] 5.8 10*3/uL 2.0-7.7 [facility] Anion gap in Serum or Plasma Ordered By: Donovan Hernandez on 09-01-2024 Anion gap [Moles/Vol] 15 mmol/L 5-15 [facility] Automated lymphocyte count a s percentage of total leukocytesOrdered By: Donovan Hernandez on 09-01-2024 Lymphocytes/100 WBC Auto (Unsp spec) 6.8 % Low 19-41 [facility] BUN/creatinine ratioOrdered By: Donovan Hernandez on 09-01-2024 Urea nitrogen/Creatinine [Mass ratio] 15.1 mg/mg 10-20 [facility] Basophil percentageOrdered B y: Donovan Hernandez on 09-01-2024 Basophils/100 WBC (Bld) 1.1 % High 0-1 [facility] Bilirubin, totalOrdered By: Donovan Hernandez on 09-01-2024 Bilirubin [Mass/Vol] 0.21 mg/dL 0.00-1.30 [facility] CBC W/Diff, Automatedon 08-19 Absolute Lymph 0.58 X10 3/uL Low 0.83-4.51 [facility] Comment on above: Order Comment: Order Date: 09/01/24 Order Info: 785-1 - CMP Order Info: [id number] - CRP Order Info: 3015-06 - TSH Order Info: 2497-07 FE Order Info: [id number] - FLOR Performed By: #### L 509.6001, L503.0106, L506.1001 #### [facility] [address] [place], [address] Absolute Neut 5.8 X10 3/uL Normal 2.0-7.7 [facility] Comment on above: Order Comment: Order Date: 09/01/24 Order Info: 785-1 - CMP Order Info: [id number] - CRP Order Info: 3015-06 - TSH Order Info: 2497-07 FE Order Info: [id number] - FLOR Performed By: #### L 509.6001, L503.0106, L506.1001 #### [facility] [address] [place], [address] Basophils/100 WBC (Bld) 1.1 % High 0-1 [facility] Comment on above: Order Comment: Order Date: 09/01/24 Order Info: 785-1 - CMP Order Info: [id number] - CRP Order Info: 3015-06 - TSH Order Info: 2497-07 FE Order Info: [id number] - FLOR Performed By: #### L 509.6001, L503.0106, L506.1001 #### [facility] [address] [place], [address] Eosinophils/100 WBC (Bld) 12.0 % High 0-5 [facility] Comment on above: Order Comment: Order Date: 09/01/24 Order Info: 785-1 - CMP Order Info: [id number] - CRP Order Info: 3015-06 - TSH Order Info: 2497-07 - FE Order Info: [id number] - FLOR Performed By: #### L 509.6001, L503.0106, L506.1001 #### [facility] [address] [place], [address] Erythrocyte distribution width (RBC) [Ratio] 14.9 % High 11.6-14.6 [facility] Comment on above: Order Comment: Order Date: 09/01/24 Order Info: 1 - CMP Order Info: [id number] - CRP Order Info: 3015-06 - TSH Order Info: 2497-07 - FE Order Info: 2275-07 - FLOR Performed By: #### L 509.6001, L503.0106, L506.1001 #### [facility] [address] [place], [address] Hematocrit (Bld) [Volume fraction] 39.6 % Normal 37-47 [facility] Comment on above: Order Comment: Order Date: 09/01/24 Order Info: 785-04 - CMP Order Info: [id number] - CRP Order Info: 3015-06 - TSH Order Info: 2497-07 - FE Order Info: 2275-07 - FLOR Performed By: #### L 509.6001, L503.0106, L506.1001 #### [facility] [address] [place], [address] Hemoglobin (Bld) [Mass/Vol] 13.1 g/dL Normal 12.0-15.0 [facility] Comment on above: Order Comment: Order Date: 09/01/24 Order Info: 1 - CMP Order Info: [id number] - CRP Order Info: 3015-06 - TSH Order Info: 2497-07 - FE Order Info: 2275-07 - FLOR Performed By: #### L 509.6001, L503.0106, L506.1001 #### [facility] [address] [place], [address] IG% 2.200 High 0.0-0.9 [facility] Comment on above: Order Comment: Order Date: 09/01/24 Order Info: 785-1 - CMP Order Info: [id number] - CRP Order Info: 3 - TSH Order Info: [id number] - FE Order Info: [id number]- - FLOR Result Comment: IG% - Immature Granulocytes (promyelocytes, myelocytes and metamyelocytes) > 1% indicates that a LEFT SHIFT is Present. Performed By: #### L 509.6001, L503.0106, L506.1001 #### [facility] [address] [place], [address] Lymphocytes/100 WBC (Bld) 6.8 % Low 19-41 [facility] Comment on above: Order Comment: Order Date: 09/01/24 Order Info: [id number] - CMP Order Info: - CRP Order Info: 3015-06 - TSH Order Info: 2497-07 FE Order Info: 2275-07 - FLOR Performed By: #### L 509.6001, L503.0106, L506.1001 #### [facility] [address] [place], [address] MCH (RBC) [Entitic mass] 31.7 pg Normal 27.0-32.0 [facility] Comment on above: Order Comment: Order Date: 09/01/24 Order Info: 1 - CMP Order Info: 95217-0 - CRP Order Info: 3015-06 - TSH Order Info: 2497-07 - FE Order Info: 2275-07 - FLOR Performed By: #### L 509.6001, L503.0106, L506.1001 #### [facility] [address] [place], [address] MCHC (RBC) [Mass/Vol] 33.1 g/dL Normal 32-36 [facility] Comment on above: Order Comment: Order Date: 09/01/24 Order Info: 785-1 - CMP Order Info: 60511-4 - CRP Order Info: 3015-06 - TSH Order Info: 2497-07 FE Order Info: 2275-07 - FLOR Performed By: #### L 509.6001, L503.0106, L506.1001 #### [facility] [address] [place], [address] MCV (RBC) [Entitic vol] 95.9 fL Normal 81-99 [facility] Comment on above: Order Comment: Order Date: 09/01/24 Order Info: 785-1 - CMP Order Info: 38785-1 - CRP Order Info: 3015-06 - TSH Order Info: 2497-07 - FE Order Info: 2275-07 - FLOR Performed By: #### L 509.6001, L503.0106, L506.1001 #### [facility] [address] [place], [address] Monocytes/100 WBC (Bld) 10.2 % High 0-10 [facility] Comment on above: Order Comment: Order Date: 09/01/24 Order Info: 785-04 - CMP Order Info: 10716-1 - CRP Order Info: 3015-06 - TSH Order Info: 2497-07 FE Order Info: 2275-07 - FLOR Performed By: #### L 509.6001, L503.0106, L506.1001 #### [facility] [address] [place], [address] Neutrophils/100 WBC (Bld) 67.7 % Normal 47-70 [facility] Comment on above: Order Comment: Order Date: 09/01/24 Order Info: 785-04 - CMP Order Info: 56612-9 - CRP Order Info: 3015-06 - TSH Order Info: 2497-07 FE Order Info: 2275-07 - FLOR Performed By: #### L 509.6001, L503.0106, L506.1001 #### [facility] [address] [place], [address] Nucleated RBC (Bld) [#/Vol] 0 10*3/uL Normal 0-5 [facility] Comment on above: Order Comment: Order Date: 09/01/24 Order Info: 785-1 - CMP Order Info: 00830-9 - CRP Order Info: 3 - TSH Order Info: 2497-07 - FE Order Info: 2275-07 - FLOR Performed By: #### L 509.6001, L503.0106, L506.1001 #### [facility] [address] [place], [address] Platelet mean volume (Bld) [Entitic vol] 9.4 fL Normal 6.2-12.0 [facility] Comment on above: Order Comment: Order Date: 09/01/24 Order Info: 785- - CMP Order Info: 64142-6 - CRP Order Info: 3015-06 - TSH Order Info: 2497-07 - FE Order Info: 2275-07 - FLOR Performed By: #### L 509.6001, L503.0106, L506.1001 #### [facility] [address] [place], [address] Platelets (Bld) [#/Vol] 302 10*3/uL Normal 150-450 [facility] Comment on above: Order Comment: Order Date: 09/01/24 Order Info: 785-04 - CMP Order Info: 95474-9 - CRP Order Info: 3015-06 - TSH Order Info: 2497-07 - FE Order Info: 2275-07 - FLOR Performed By: #### L 509.6001, L503.0106, L506.1001 #### [facility] [address] [place], [address] RBC (Bld) [#/Vol] 4.13 10*6/uL Low 4.2-5.4 [facility] Comment on above: Order Comment: Order Date: 09/01/24 Order Info: 785-1 - CMP Order Info: 30015-7 - CRP Order Info: 3015-06 - TSH Order Info: 2497-07 - FE Order Info: 2275-07 - FLOR Performed By: #### L 509.6001, L503.0106, L506.1001 #### [facility] [address] [place], [address] RDW SD 53.1 fl High 35.1-43.9 [facility] Comment on above: Order Comment: Order Date: 09/01/24 Order Info: 86-1 - CMP Order Info: 45852-5 - CRP Order Info: 3 - TSH Order Info: 2497-07 - FE Order Info: 2275-07 - FLOR Performed By: #### L 509.6001, L503.0106, L506.1001 #### [facility] [address] [place], [address] WBC (Bld) [#/Vol] 8.6 10*3/uL Normal 4.4-11.0 [facility] Comment on above: Order Comment: Order Date: 09/01/24 Order Info: 785- - CMP Order Info: 16612-1 - CRP Order Info: 3 - TSH Order Info: 2497-07 - FE Order Info: 2275-07 - FLOR Performed By: #### L 509.6001, L503.0106, L506.1001 #### [facility] [address] [place], [address] CRPon 09-01-2024 C-REACTIVE PROT 8.06 mg/L High 0.0-3.0 [facility] Comment on above: Order Comment: Order Date: 09/01/24 Order Info: 785-1 - CMP Order Info: 56914-4 - CRP Order Info: 6-3 - TSH Order Info: 2497-07 - FE Order Info: 2275-07 - FLOR Performed By: #### L 509.6001, L503.0106, L506.1001 #### [facility] [address] [place], [address] Carbon dioxide, total [Moles /volume] in Central venous bloodOrdered By: Donovan Hernandez on 09-01-2024 CO2 [Moles/Vol] 20.0 mmol/L Low 21.0-32.0 [facility] Chloride assayOrdered By: Jose Hernandez on 09-01-2024 Chloride [Moles/Vol] 103 mmol/L 98-108 [facility] Comprehensive Metabolic Prof ilon 09-01-2024 Albumin [Mass/Vol] 3.8 g/dL Normal 3.4-4.8 [facility] Comment on above: Order Comment: Order Date: 09/01/24 Order Info: 785-04 - CMP Order Info: 96233-8 - CRP Order Info: 3015-06 - TSH Order Info: 2497-07 FE Order Info: 2275-07 - FLOR Performed By: #### L 509.6001, L503.0106, L506.1001 #### [facility] [address] [place], [address] Albumin/Globulin [Mass ratio] 1.4 {ratio} Normal 0.9-2.4 [facility] Comment on above: Order Comment: Order Date: 09/01/24 Order Info: 785-04 - CMP Order Info: - CRP Order Info: 3015-06 - TSH Order Info: 2497-07 FE Order Info: 2275-07 - FLRO Performed By: #### L 509.6001, L503.0106, L506.1001 #### [facility] [address] [place], [address] ALK PHOS 95 U/L Normal 35-104 [facility] Comment on above: Order Comment: Order Date: 09/01/24 Order Info: 07 - CMP Order Info: 28833-2 - CRP Order Info: 3015-06 - TSH Order Info: 2497-07 FE Order Info: 2275-07 - FLOR Performed By: #### L 509.6001, L503.0106, L506.1001 #### [facility] [address] [place], [address] ALT [Catalytic activity/Vol] 13 U/L Normal <=34 [facility] Comment on above: Order Comment: Order Date: 09/01/24 Order Info: 785-1 - CMP Order Info: 71259-4 - CRP Order Info: 3 - TSH Order Info: 24911-22 - FE Order Info: 2275-07 - FLOR Performed By: #### L 509.6001, L503.0106, L506.1001 #### [facility] [address] [place], [address] AST [Catalytic activity/Vol] 21 U/L Normal <=31 [facility] Comment on above: Order Comment: Order Date: 09/01/24 Order Info: 785-04 - CMP Order Info: 66554-4 - CRP Order Info: 3 - TSH Order Info: 2497-07 - FE Order Info: 2275-07 - FLOR Performed By: #### L 509.6001, L503.0106, L506.1001 #### [facility] [address] [place], [place], [address] Bilirubin [Mass/Vol] 0.21 mg/dL Normal 0.00-1.30 [facility] Comment on above: Order Comment: Order Date: 09/01/24 Order Info: 785-04 - CMP Order Info: 55626-8 - CRP Order Info: 3 - TSH Order Info: 2497-07 - FE Order Info: 2275-07 - FLOR Performed By: #### L 509.6001, L503.0106, L506.1001 #### [facility] [address] [place], [address] BUN/CRE 15.1 RATIO Normal 10-20 [facility] Comment on above: Order Comment: Order Date: 09/01/24 Order Info: 785-1 - CMP Order Info: 47964-0 - CRP Order Info: 3 - TSH Order Info: 2497-07 - FE Order Info: 2275-07 - FLOR Performed By: #### L 509.6001, L503.0106, L506.1001 #### [facility] [address] [place], [address] Calcium [Mass/Vol] 9.4 mg/dL Normal 7.6-11.0 [facility] Comment on above: Order Comment: Order Date: 09/01/24 Order Info: 86-1 - CMP Order Info: 52584-5 - CRP Order Info: 3015-3 - TSH Order Info: 2494 - FE Order Info: 227-4 - FLOR Performed By: #### L 509.6001, L503.0106, L506.1001 #### [facility] [address] [place], [address] Chloride [Moles/Vol] 103 mmol/L Normal 98-108 [facility] Comment on above: Order Comment: Order Date: 09/01/24 Order Info: 785-1 - CMP Order Info: 51573-5 - CRP Order Info: 3 - TSH Order Info: 24911-22 - FE Order Info: 227-4 - FLOR Performed By: #### L 509.6001, L503.0106, L506.1001 #### [facility] [address] [place], [address] CO2 [Moles/Vol] 20.0 mmol/L Low 21.0-32.0 [facility] Comment on above: Order Comment: Order Date: 09/01/24 Order Info: 785-1 - CMP Order Info: 52544-0 - CRP Order Info: 3016-3 - TSH Order Info: 24984 - FE Order Info: 227-4 - FLOR Performed By: #### L 509.6001, L503.0106, L506.1001 #### [facility] [address] [place], [address] Creatinine [Mass/Vol] 0.90 mg/dL Normal 0.70-1.20 [facility] Comment on above: Order Comment: Order Date: 09/01/24 Order Info: 86-1 - CMP Order Info: 53264-3 - CRP Order Info: 3 - TSH Order Info: 2497-07 - FE Order Info: 2275-07 - FLOR Performed By: #### L 509.6001, L503.0106, L506.1001 #### [facility] [address] [place], [address] GAP 15 Normal 5-15 [facility] Comment on above: Order Comment: Order Date: 09/01/24 Order Info: 785- - CMP Order Info: 81077-6 - CRP Order Info: 3 - TSH Order Info: 2497-07 - FE Order Info: 2275-07 - FLOR Performed By: #### L 509.6001, L503.0106, L506.1001 #### [facility] [address] [place], [address] GFR/1.73 sq M.predicted among non-blacks MDRD (S/P/Bld) [Vol rate/Area] 70 mL/min/{1.73_m2} Normal >60 [facility] Comment on above: Order Comment: Order Date: 09/01/24 Order Info: 785-04 - CMP Order Info: - CRP Order Info: 3015-06 - TSH Order Info: 2497-07 - FE Order Info: 2275-07 - FLOR Result Comment: mL/m in/1.73m2 CKD-EPI Creatinine Equation (2020) Performed By: #### L 509.6001, L503.0106, L506.1001 #### [facility] [address] [place], [address] Globulin (S) [Mass/Vol] 2.8 g/dL Normal 2.2-4.2 [facility] Comment on above: Order Comment: Order Date: 09/01/24 Order Info: 07 - CMP Order Info: 44529-3 - CRP Order Info: 3 - TSH Order Info: 24911-22 - FE Order Info: 2275-07 - FLOR Performed By: #### L 509.6001, L503.0106, L506.1001 #### [facility] [address] [place], [address] Glucose [Mass/Vol] 144 mg/dL High 70-99 [facility] Comment on above: Order Comment: Order Date: 09/01/24 Order Info: 86-1 - CMP Order Info: 84628-8 - CRP Order Info: 3015-3 - TSH Order Info: 24911-22 - FE Order Info: 2275-4 - FLOR Performed By: #### L 509.6001, L503.0106, L506.1001 #### [facility] [address] [place], [address] Potassium [Moles/Vol] 4.2 mmol/L Normal 3.3-5.1 [facility] Comment on above: Order Comment: Order Date: 09/01/24 Order Info: 785-1 - CMP Order Info: 85704-7 - CRP Order Info: 3 - TSH Order Info: 2497-07 - FE Order Info: 4 - FLOR Performed By: #### L 509.6001, L503.0106, L506.1001 #### [facility] [address] [place], [address] Sodium [Moles/Vol] 138 mmol/L Normal 133-145 [facility] Comment on above: Order Comment: Order Date: 09/01/24 Order Info: 785-1 - CMP Order Info: 78875-6 - CRP Order Info: 3015-3 - TSH Order Info: 24911-22 - FE Order Info: 2275-4 - FLOR Performed By: #### L 509.6001, L503.0106, L506.1001 #### [facility] [address] [place], [address] T PROT 6.6 g/dL Normal 5.9-8.4 [facility] Comment on above: Order Comment: Order Date: 09/01/24 Order Info: 785-1 - CMP Order Info: 92853-3 - CRP Order Info: 3013 - TSH Order Info: 2497-07 - FE Order Info: 2275-07 - FLOR Performed By: #### L 509.6001, L503.0106, L506.1001 #### [facility] [address] [place], [place], [address] Urea nitrogen [Mass/Vol] 14 mg/dL Normal 4-19 [facility] Comment on above: Order Comment: Order Date: 09/01/24 Order Info: 0786-1 - CMP Order Info: 35719-0 - CRP Order Info: 3015-06 - TSH Order Info: 2497-07 - FE Order Info: 2275-07 - FLOR Performed By: #### L 509.6001, L503.0106, L506.1001 #### [facility] [address] [place], [place], [address] Eosinophil percentageOrdered By: Donovan Hernandez on 09-01-2024 Eosinophils/100 WBC (Bld) 12.0 % High 0-5 [facility] Erythrocyte Sed Rateon 09-01 SED RATE 16 mm/hr Normal 0-30 [facility] Comment on above: Order Comment: Order Date: 09/01/24 Order Info: 0786-1 - CMP Order Info: 76566-6 - CRP Order Info: 3015-06 - TSH Order Info: 2497-07 - FE Order Info: 2275-07 - FLOR Performed By: #### L 509.6001, L503.0106, L506.1001 #### [facility] [address] [place], [place], [address] Erythrocyte distribution wid th ratioOrdered By: Donovan Hernandez on 09-01-2024 Erythrocyte distribution width (RBC) [Ratio] 14.9 % High 11.6-14.6 [facility] Erythrocyte distribution wid th standard deviationOrdered By: Donovan Hernandez on 09-01-2024 Erythrocyte distribution width (RBC) [Ratio] 53.1 fl High 35.1-43.9 [facility] Erythrocyte sedimentation ra teOrdered By: Donovan Hernandez on 09-01-2024 ESR (Bld) [Velocity] 16 mm/h 0-30 [facility] Ferritinon 09-01-2024 Ferritin [Mass/Vol] 231 ng/mL Normal 22-378 [facility] Comment on above: Order Comment: Order Date: 09/01/24 Order Info: 0786-1 - CMP Order Info: 56145-8 - CRP Order Info: 3016-3 - TSH Order Info: 2498-4 - FE Order Info: 2276-4 - FLOR Performed By: #### L 509.6001, L503.0106, L506.1001 #### [facility] [address] [place], [address] Glomerular filtration rate ( GFR) estimation/1.73 sq m using serum, plasma, or whole bOrdered By: Donovan Hernandez on 09-01-2024 GFR/1.73 sq M.predicted among non-blacks MDRD (S/P/Bld) [Vol rate/Area] 70 mL/min/{1.73_m2} >60 [facility] Comment on above: mL/min/1.73m2 CKD-EP I Creatinine Equation (2020) Hematocrit Auto (Bld) [Volum e fraction]Ordered By: Donovan Hernandez on 09-01-2024 Hematocrit (Bld) [Volume fraction] 39.6 % 37-47 [facility] Hemoglobin measurementOrdere d By: Donovan Hernandez on 09-01-2024 Hemoglobin (Bld) [Mass/Vol] 13.1 g/dL 12.0-15.0 [facility] Immature granulocytes/100 WB C Auto (Bld)Ordered By: Donovan Hernandez on 09-01-2024 Immature granulocytes/100 WBC (Bld) 2.200 % High 0.0-0.9 [facility] Comment on above: IG% - Immature Granu locytes (promyelocytes, myelocytes and metamyelocytes) > 1% indicates that a LEFT SHIFT is Present. Ironon 09-01-2024 Iron [Mass/Vol] 72 ug/dL Normal 50-170 [facility] Comment on above: Order Comment: Order Date: 09/01/24 Order Info: 0786-1 - CMP Order Info: 34822-1 - CRP Order Info: 6-3 - TSH Order Info: 24984 - FE Order Info: 4 - FLOR Performed By: #### L 509.6001, L503.0106, L506.1001 #### [facility] [address] [place], [place], [address] Iron measurement (mass/mass) Ordered By: Donovan Hernandez on 09-01-2024 Iron (Unsp spec) [Mass/Mass] 72 ug/dL 50-170 [facility] L509.6001on 09-01-2024 CORTISOL 23.20 ug/dL High 6.02-18.40 [facility] Comment on above: Order Comment: Order Date: 09/01/24 Order Info: 0786-1 - CMP Order Info: 61910-9 - CRP Order Info: 3 - TSH Order Info: 2497-07 - FE Order Info: 2275-07 - FLOR Performed By: #### L 509.6001, L503.0106, L506.1001 #### [facility] [address] [place], [place], [address] Laboratory - Chemistry and C hemistry - challengeOrdered By: Donovan Hernandez on 09-01-2024 AST [Catalytic activity/Vol] 21 U/L <32 [facility] MCV (mean corpuscular volume ) determinationOrdered By: Donovan Hernandez on 09-01-2024 MCV (RBC) [Entitic vol] 95.9 fL 81-99 [facility] Mean corpuscular hemoglobin (MCH) determinationOrdered By: Donovan Hernandez on 09-01-2024 MCH (RBC) [Entitic mass] 31.7 pg 27.0-32.0 [facility] Mean corpuscular hemoglobin concentration (MCHC) determinationOrdered By: Donovan Hernandez on 09-01-2024 MCHC (RBC) [Mass/Vol] 33.1 g/dL 32-36 [facility] Mean platelet volume determi nationOrdered By: Donovan Hernandez on 09-01-2024 Platelet mean volume (Bld) [Entitic vol] 9.4 fL 6.2-12.0 [facility] Monocyte percentageOrdered B y: Donovan Hernandez on 09-01-2024 Monocytes/100 WBC (Bld) 10.2 % High 0-10 [facility] Neutrophil percentageOrdered By: Donovan Hernandez on 09-01-2024 Neutrophils/100 WBC (Bld) 67.7 % 47-70 [facility] Nucleated red blood cell per centageOrdered By: Donovan Hernandez on 09-01-2024 Nucleated RBC/100 WBC (Bld) [Ratio] 0 % 0-5 [facility] Platelet countOrdered By: Jose Hernandez on 09-01-2024 Platelets (Bld) [#/Vol] 302 10*3/uL 150-450 [facility] Potassium measurement (mass/ volume)Ordered By: Donovan Hernandez on 09-01-2024 Potassium (Unsp spec) [Mass/Vol] 4.2 mmol/L 3.3-5.1 [facility] RBC Auto (Bld) [#/Vol]Ordere d By: Donovan Hernandez on 09-01-2024 RBC (Bld) [#/Vol] 4.13 10*6/uL Low 4.2-5.4 [facility] Serum creatinine measurement (mass/volume)Ordered By: Donovan Hernandez on 09-01-2024 Creatinine [Mass/Vol] 0.90 mg/dL 0.70-1.20 [facility] Serum globulin measurementOr dered By: Donovan Hernandez on 09-01-2024 Globulin (S) [Mass/Vol] 2.8 g/dL 2.2-4.2 [facility] Serum glucose measurement (m ass/volume)Ordered By: Donovan Hernandez on 09-01-2024 Glucose [Mass/Vol] 144 mg/dL High 70-99 [facility] Serum or plasma C reactive p rotein measurement (mass/volume)Ordered By: Donovan Hernandez on 09-01-2024 CRP [Mass/Vol] 8.06 mg/L High 0.0-3.0 [facility] Serum or plasma alanine garner otransferase (ALT) measurementOrdered By: Donovan Hernandez on 09-01-2024 ALT [Catalytic activity/Vol] 13 U/L <35 [facility] Serum or plasma albumin julio urement (mass/volume)Ordered By: Donovan Hernandez on 09-01-2024 Albumin [Mass/Vol] 3.8 g/dL 3.4-4.8 [facility] Serum or plasma albumin/glob ulin mass ratioOrdered By: Donovan Hernandez on 09-01-2024 Albumin/Globulin [Mass ratio] 1.4 {ratio} 0.9-2.4 [facility] Serum or plasma alkaline marcin sphatase measurementOrdered By: Donovan Hernandez on 09-01-2024 ALP [Catalytic activity/Vol] 95 U/L 35-104 [facility] Serum or plasma calcium julio urement (mass/volume)Ordered By: Donovan Hernandez on 09-01-2024 Calcium [Mass/Vol] 9.4 mg/dL 7.6-11.0 [facility] Serum or plasma cortisol sarah surement (mass/volume)Ordered By: Donovan Hernandez on 09-01-2024 Cortisol [Mass/Vol] 23.20 ug/dL High 6.02-18.40 [facility] Serum or plasma ferritin sarah surement (mass/volume)Ordered By: Donovan Hernandez on 09-01-2024 Ferritin [Mass/Vol] 231 ng/mL 22-378 [facility] Serum or plasma urea nitroge n measurement (mass/volume)Ordered By: Donovan Hernandez on 09-01-2024 Urea nitrogen [Mass/Vol] 14 mg/dL 4-19 [facility] Sodium levelOrdered By: Shane Hernandez on 09-01-2024 Sodium [Moles/Vol] 138 mmol/L 133-145 [facility] TSH DL <= 0.005 mIU/L QnOrde red By: Donovan Hernandez on 09-01-2024 TSH Qn 1.890 uIU/mL 0.300-4.200 [facility] Thyroid Stim Hormone (TSH)on 09-01-2024 TSH 1.890 uIU/mL Normal 0.300-4.200 [facility] Comment on above: Order Comment: Order Date: 09/01/24 Order Info: 0786-1 - CMP Order Info: 68156-1 - CRP Order Info: 3015-06 - TSH Order Info: 2497-07 - FE Order Info: 2275-07 - FLOR Performed By: #### L 509.6001, L503.0106, L506.1001 #### [facility] [address] [place], [place], [address] Total proteinOrdered By: Dennys Hernandez on 09-01-2024 Protein [Mass/Vol] 6.6 g/dL 5.9-8.4 [facility] Vitamin B12on 09-01-2024 Cobalamin (Vitamin B12) [Mass/Vol] 427 pg/mL Normal 180-914 [facility] Comment on above: Order Comment: Order Date: 09/01/24 Order Info: 785-04 - CMP Order Info: - CRP Order Info: 3015-06 - TSH Order Info: 2497-07 FE Order Info: 2275-07 - FLOR Performed By: #### L 509.6001, L503.0106, L506.1001 #### [facility] [address] [place], [address] Vitamin B12 ser/plasOrdered By: Donovan Hernandez on 09-01-2024 Cobalamin (Vitamin B12) [Mass/Vol] 427 pg/mL 180-914 [facility] Vitamin D,25 Hydroxyon 09-01 Vitamin D 25-OH 13.8 ng/mL Low 30-100 [facility] Comment on above: Order Comment: Order Date: 09/01/24 Order Info: 1 - CMP Order Info: [id number] - CRP Order Info: 3015-06 - TSH Order Info: 2497-07 - FE Order Info: 2275-07 - FLOR Result Comment: Jessie min D Status Deficiency: <20 ng/mL (50nmol/L) Insufficiency: 20-30 ng/mL (50-75 nmol/L) Sufficiency: 30-100 ng/mL (75-250 nmol/L) Toxicity: >100 ng/mL (>250 nmol/L) Performed By: #### L 509.6001, L503.0106, L506.1001 #### [facility] [address] [place], [place], [address] White blood cell (WBC) count Ordered By: Donovan Hernandez on 09-01-2024 WBC (Bld) [#/Vol] 8.6 10*3/uL 4.4-11.0 [facility] 36on 08-26-2024 36 Chart reviewed. OARR S reviewed. Refill appropriate. E-prescription sent to default pharmacy. [facility] 36 Confirmed patient Name and : Yes Medication name(s) and dose(s) requested: Lorazepam (Ativan) 1 MG Tablets Approximate number of pills available in the home: None Left Confirmed and updated correct pharmacy: Yes Reminded patient of 3 business day refill policy on all medication refill requests: Yes Notified patient to call pharmacy to confirm prescription ready for pickup and to call office if not available within 3 business days: Yes Date of last appointment: 07/15/24 Date of next appointment: 09/09/[address] [facility] Absolute lymphocyte countOrd ered By: Donovan Hernandez on 08-19-2024 Lymphocytes Auto (Unsp spec) [#/Vol] 0.89 10*3/uL 0.83-4.51 [facility] Absolute neutrophil countOrd ered By: Donovan Hernandez on 08-19-2024 Neutrophils (Bld) [#/Vol] 10.8 10*3/uL High 2.0-7.7 [facility] Acute Abdomen Inc Cheston Acute Abdomen Inc Chest [facility] [address] [place], [place] [address] Acute Abdomen Inc Chest MR#: [id number] Acct: [id number] Name: DANNY PINK Rep #: [id number] : [id number] F 68 From: Hola Sue MD PCP: Dr. Donovan Hernandez MD Status: REG CLI Study: Acute Abdomen Inc Chest Date of Exam: 08/19/24 Exam# [id number] Ordering Dr: Donovan Hernandez PROCEDURE: ACUTE ABDOMEN INC CHEST 08/19/2024 REASON FOR EXAM: VOMITING TECHNIQUE: Single view chest with 2 supine and upright views of the abdomen to include the entire abdomen and pelvis, 5 total images. COMPARISON: 07/18/2024 FINDINGS: Right port again noted. The lungs appear clear. Cardiac and mediastinal contours appear within limits. No evidence of free air identified. The bowel gas pattern appears nonspecific. No gaseous distention of bowel. Moderate amount of fecal material. Lower lumbar spondylosis. Surgical clips at the pelvis. Mild S shaped spinal curvature. RAD/Acute Abdomen Inc Chest IMPRESSION: No evidence of free air identified. The bowel gas pattern appears nonspecific. No gaseous distention of bowel. Moderate amount of fecal material. Reading Location: [id number] CC: Dr. Donovan Hernandez MD Hand Violin Maker: Signed Normal [facility] Amylaseon 08-19-2024 PIETER 29 U/L Normal 28-100 [facility] Comment on above: Order Comment: Order Date: 09/01/24 Order Info: 0786-1 - CMP Order Info: 70532-2 - CRP Order Info: 3016-3 - TSH Order Info: 2498-4 - FE Order Info: 2276-4 - FLOR Performed By: #### L 509.6001, L503.0106, L506.1001 #### [facility] [address] [place] [address]. [place], [address] Anion gap in Serum or Plasma Ordered By: Donovan Hernandez on 08-19-2024 Anion gap [Moles/Vol] 18 mmol/L High 5-15 [facility] Automated lymphocyte count a s percentage of total leukocytesOrdered By: Donovan Hernandez on 08-19-2024 Lymphocytes/100 WBC Auto (Unsp spec) 6.8 % Low 19-41 [facility] BUN/creatinine ratioOrdered By: Donovan Hernandez on 08-19-2024 Urea nitrogen/Creatinine [Mass ratio] 13.5 mg/mg 10-20 [facility] Basophil percentageOrdered B y: Donovan Hernandez on 08-19-2024 Basophils/100 WBC (Bld) 0.5 % 0-1 [facility] Bilirubin, totalOrdered By: Donovan Hernandez on 08-19-2024 Bilirubin [Mass/Vol] 0.32 mg/dL 0.00-1.30 [facility] CBC W/Diff, Automatedon Absolute Lymph 0.89 X10 3/uL Normal 0.83-4.51 [facility] Comment on above: Order Comment: Order Date: 09/01/24 Order Info: 07- - CMP Order Info: 47577-6 - CRP Order Info: 3015-06 - TSH Order Info: 2497-07 Order Info: 2275-07 - FLOR Performed By: #### L 509.6001, L503.0106, L506.1001 #### [facility] [address] [place], [address] Absolute Neut 10.8 X10 3/uL High 2.0-7.7 [facility] Comment on above: Order Comment: Order Date: 09/01/24 Order Info: 785-04 - CMP Order Info: - CRP Order Info: 3015-06 - TSH Order Info: 2497-07 Order Info: 2275-07 - FLOR Performed By: #### L 509.6001, L503.0106, L506.1001 #### [facility] [address] [place], [address] Basophils/100 WBC (Bld) 0.5 % Normal 0-1 [facility] Comment on above: Order Comment: Order Date: 09/01/24 Order Info: 785-04 - CMP Order Info: 41107-6 - CRP Order Info: 3015-06 - TSH Order Info: 2497-07 Order Info: 2275-07 - FLOR Performed By: #### L 509.6001, L503.0106, L506.1001 #### [facility] [address] [place], [address] Eosinophils/100 WBC (Bld) 1.0 % Normal 0-5 [facility] Comment on above: Order Comment: Order Date: 09/01/24 Order Info: 785-04 - CMP Order Info: 98580-1 - CRP Order Info: 3015-06 - TSH Order Info: 2497-07 - FE Order Info: 2275-07 - FLOR Performed By: #### L 509.6001, L503.0106, L506.1001 #### [facility] [address] [place], [place], [id number] Erythrocyte distribution width (RBC) [Ratio] 14.8 % High 11.6-14.6 [facility] Comment on above: Order Comment: Order Date: 09/01/24 Order Info: 785-04 - CMP Order Info: 94930-4 - CRP Order Info: 3015-06 - TSH Order Info: 2497-07 - FE Order Info: 2275-07 - FLOR Performed By: #### L 509.6001, L503.0106, L506.1001 #### [facility] [address] [place], [place], [id number] Hematocrit (Bld) [Volume fraction] 42.8 % Normal 37-47 [facility] Comment on above: Order Comment: Order Date: 09/01/24 Order Info: 785-04 - CMP Order Info: - CRP Order Info: 3015-06 - TSH Order Info: 2497-07 - FE Order Info: 2275-07 - FLOR Performed By: #### L 509.6001, L503.0106, L506.1001 #### [facility] [address] [place], [place], [address] Hemoglobin (Bld) [Mass/Vol] 14.3 g/dL Normal 12.0-15.0 [facility] Comment on above: Order Comment: Order Date: 09/01/24 Order Info: 785-04 - CMP Order Info: 80886-2 - CRP Order Info: 3015-06 - TSH Order Info: 24911-22 - FE Order Info: 2275-07 - FLOR Performed By: #### L 509.6001, L503.0106, L506.1001 #### [facility] [address] [place], [address] IG% 0.700 Normal 0.0-0.9 [facility] Comment on above: Order Comment: Order Date: 09/01/24 Order Info: 07-1 - CMP Order Info: 45666-7 - CRP Order Info: 3013 - TSH Order Info: 2497-07 - FE Order Info: 2275-07 - FLOR Result Comment: IG% - Immature Granulocytes (promyelocytes, myelocytes and metamyelocytes) > 1% indicates that a LEFT SHIFT is Present. Performed By: #### L 509.6001, L503.0106, L506.1001 #### [facility] [address] [place], [address] Lymphocytes/100 WBC (Bld) 6.8 % Low 19-41 [facility] Comment on above: Order Comment: Order Date: 09/01/24 Order Info: 785-04 - CMP Order Info: - CRP Order Info: 3015-06 - TSH Order Info: 2497-07 FE Order Info: 2275-07 - FLOR Performed By: #### L 509.6001, L503.0106, L506.1001 #### [facility] [address] [place], [address] MCH (RBC) [Entitic mass] 31.1 pg Normal 27.0-32.0 [facility] Comment on above: Order Comment: Order Date: 09/01/24 Order Info: 785-04 - CMP Order Info: 59211-5 - CRP Order Info: 3 - TSH Order Info: 2497-07 FE Order Info: 2275-07 - FLOR Performed By: #### L 509.6001, L503.0106, L506.1001 #### [facility] [address] [place], [address] MCHC (RBC) [Mass/Vol] 33.4 g/dL Normal 32-36 [facility] Comment on above: Order Comment: Order Date: 09/01/24 Order Info: 785-1 - CMP Order Info: 00387-0 - CRP Order Info: 3 - TSH Order Info: 2497-07 - FE Order Info: 4 - FLOR Performed By: #### L 509.6001, L503.0106, L506.1001 #### [facility] [address] [place], [address] MCV (RBC) [Entitic vol] 93.0 fL Normal 81-99 [facility] Comment on above: Order Comment: Order Date: 09/01/24 Order Info: 785- - CMP Order Info: 27417-1 - CRP Order Info: 3 - TSH Order Info: 2497-07 - FE Order Info: 4 - FLOR Performed By: #### L 509.6001, L503.0106, L506.1001 #### [facility] [address] [place], [address] Monocytes/100 WBC (Bld) 8.8 % Normal 0-10 [facility] Comment on above: Order Comment: Order Date: 09/01/24 Order Info: 785- - CMP Order Info: 04982-4 - CRP Order Info: 3 - TSH Order Info: 24911-22 - FE Order Info: 22709-22 - FLOR Performed By: #### L 509.6001, L503.0106, L506.1001 #### [facility] [address] [place], [address] Neutrophils/100 WBC (Bld) 82.2 % High 47-70 [facility] Comment on above: Order Comment: Order Date: 09/01/24 Order Info: 785-1 - CMP Order Info: 30777-8 - CRP Order Info: 3 - TSH Order Info: 24911-22 - FE Order Info: 2275-07 - FLOR Performed By: #### L 509.6001, L503.0106, L506.1001 #### [facility] [address] [place], [address] Nucleated RBC (Bld) [#/Vol] 0 10*3/uL Normal 0-5 [facility] Comment on above: Order Comment: Order Date: 09/01/24 Order Info: 0786-1 - CMP Order Info: 05609-5 - CRP Order Info: 3 - TSH Order Info: 2497-07 - FE Order Info: 2275-07 - FLOR Performed By: #### L 509.6001, L503.0106, L506.1001 #### [facility] [address] [place], [address] Platelet mean volume (Bld) [Entitic vol] 9.1 fL Normal 6.2-12.0 [facility] Comment on above: Order Comment: Order Date: 09/01/24 Order Info: 07 - CMP Order Info: - CRP Order Info: 3015-06 - TSH Order Info: 2497-07 - FE Order Info: 2275-07 - FLOR Performed By: #### L 509.6001, L503.0106, L506.1001 #### [facility] [address] [place], [address] Platelets (Bld) [#/Vol] 389 10*3/uL Normal 150-450 [facility] Comment on above: Order Comment: Order Date: 09/01/24 Order Info: 0786 - CMP Order Info: 49782-6 - CRP Order Info: 3 - TSH Order Info: 2497-07 - FE Order Info: 2275-07 - FLOR Performed By: #### L 509.6001, L503.0106, L506.1001 #### [facility] [address] [place], [address] RBC (Bld) [#/Vol] 4.60 10*6/uL Normal 4.2-5.4 [facility] Comment on above: Order Comment: Order Date: 09/01/24 Order Info: 0786-1 - CMP Order Info: 18790-1 - CRP Order Info: 3015-06 - TSH Order Info: 2497-07 FE Order Info: 2275-07 - FLOR Performed By: #### L 509.6001, L503.0106, L506.1001 #### [facility] [address] [place], [address] RDW SD 50.8 fl High 35.1-43.9 [facility] Comment on above: Order Comment: Order Date: 09/01/24 Order Info: 785-04 - CMP Order Info: - CRP Order Info: 3015-06 - TSH Order Info: 2497-07 FE Order Info: 2275-07 - FLOR Performed By: #### L 509.6001, L503.0106, L506.1001 #### [facility] [address] [place], [address] WBC (Bld) [#/Vol] 13.1 10*3/uL High 4.4-11.0 [facility] Comment on above: Order Comment: Order Date: 09/01/24 Order Info: 785-04 - CMP Order Info: - CRP Order Info: 3015-06 - TSH Order Info: 2497-07 Order Info: 2275-07 - FLOR Performed By: #### L 509.6001, L503.0106, L506.1001 #### [facility] [address] [place], [address] Carbon dioxide, total [Moles /volume] in Central venous bloodOrdered By: Donovan Hernandez on 08-19-2024 CO2 [Moles/Vol] 15.1 mmol/L Low 21.0-32.0 [facility] Chloride assayOrdered By: Jose Hernandez on 08-19-2024 Chloride [Moles/Vol] 100 mmol/L 98-108 [facility] Comprehensive Metabolic Prof ilon 08-19-2024 Albumin [Mass/Vol] 4.3 g/dL Normal 3.4-4.8 [facility] Comment on above: Order Comment: Order Date: 09/01/24 Order Info: 785-04 - CMP Order Info: 31498-3 - CRP Order Info: 3015-06 - TSH Order Info: 2497-07 - FE Order Info: 2275-07 - FLOR Performed By: #### L 509.6001, L503.0106, L506.1001 #### [facility] [address] [place], [address] Albumin/Globulin [Mass ratio] 1.4 {ratio} Normal 0.9-2.4 [facility] Comment on above: Order Comment: Order Date: 09/01/24 Order Info: 785-04 - CMP Order Info: - CRP Order Info: 3015-06 - TSH Order Info: 2497-07 - FE Order Info: 2275-07 - FLOR Performed By: #### L 509.6001, L503.0106, L506.1001 #### [facility] [address] [place], [place], [address] ALK PHOS 105 U/L High 35-104 [facility] Comment on above: Order Comment: Order Date: 09/01/24 Order Info: 785-04 - CMP Order Info: - CRP Order Info: 3015-06 - TSH Order Info: 2497-07 - FE Order Info: 2275-07 - FLOR Performed By: #### L 509.6001, L503.0106, L506.1001 #### [facility] [address] [place], [address] ALT [Catalytic activity/Vol] 10 U/L Normal <=34 [facility] Comment on above: Order Comment: Order Date: 09/01/24 Order Info: 785-04 - CMP Order Info: - CRP Order Info: 3015-06 - TSH Order Info: 2497-07 - FE Order Info: 2275-07 - FLOR Performed By: #### L 509.6001, L503.0106, L506.1001 #### [facility] [address] [place], [address] AST [Catalytic activity/Vol] 18 U/L Normal <=31 [facility] Comment on above: Order Comment: Order Date: 09/01/24 Order Info: 86-1 - CMP Order Info: 74183-9 - CRP Order Info: 3015-3 - TSH Order Info: 2494 - FE Order Info: 4 - FLOR Performed By: #### L 509.6001, L503.0106, L506.1001 #### [facility] [address] [place], [address] Bilirubin [Mass/Vol] 0.32 mg/dL Normal 0.00-1.30 [facility] Comment on above: Order Comment: Order Date: 09/01/24 Order Info: 785-1 - CMP Order Info: 48536-8 - CRP Order Info: 3 - TSH Order Info: 2494 - FE Order Info: 4 - FLOR Performed By: #### L 509.6001, L503.0106, L506.1001 #### [facility] [address] [place], [address] BUN/CRE 13.5 RATIO Normal 10-20 [facility] Comment on above: Order Comment: Order Date: 09/01/24 Order Info: 785-1 - CMP Order Info: 72521-6 - CRP Order Info: 3 - TSH Order Info: 2494 - FE Order Info: 4 - FLOR Performed By: #### L 509.6001, L503.0106, L506.1001 #### [facility] [address] [place], [address] Calcium [Mass/Vol] 9.9 mg/dL Normal 7.6-11.0 [facility] Comment on above: Order Comment: Order Date: 09/01/24 Order Info: 86-1 - CMP Order Info: 31102-4 - CRP Order Info: 3 - TSH Order Info: 2494 - FE Order Info: 2276-4 - FLOR Performed By: #### L 509.6001, L503.0106, L506.1001 #### [facility] [address] [place], [address] Chloride [Moles/Vol] 100 mmol/L Normal 98-108 [facility] Comment on above: Order Comment: Order Date: 09/01/24 Order Info: 0786-1 - CMP Order Info: 31823-2 - CRP Order Info: 3016-3 - TSH Order Info: 2497-07 - FE Order Info: 2275-07 - FLOR Performed By: #### L 509.6001, L503.0106, L506.1001 #### [facility] [address] [place], [address] CO2 [Moles/Vol] 15.1 mmol/L Low 21.0-32.0 [facility] Comment on above: Order Comment: Order Date: 09/01/24 Order Info: 07-1 - CMP Order Info: 17041-2 - CRP Order Info: 30163 - TSH Order Info: 2497-07 - FE Order Info: 2275-07 - FLOR Performed By: #### L 509.6001, L503.0106, L506.1001 #### [facility] [address] [place], [address] Creatinine [Mass/Vol] 1.10 mg/dL Normal 0.70-1.20 [facility] Comment on above: Order Comment: Order Date: 09/01/24 Order Info: 0786-1 - CMP Order Info: 50039-2 - CRP Order Info: 30163 - TSH Order Info: 2497-07 - FE Order Info: 2275-07 - FLOR Performed By: #### L 509.6001, L503.0106, L506.1001 #### [facility] [address] [place], [address] GAP 18 High 5-15 [facility] Comment on above: Order Comment: Order Date: 09/01/24 Order Info: 0786-1 - CMP Order Info: 78857-6 - CRP Order Info: 3015-3 - TSH Order Info: 2497-07 - FE Order Info: 2275-07 - FLOR Performed By: #### L 509.6001, L503.0106, L506.1001 #### [facility] [address] [place], [address] GFR/1.73 sq M.predicted among non-blacks MDRD (S/P/Bld) [Vol rate/Area] 55 mL/min/{1.73_m2} Low >60 [facility] Comment on above: Order Comment: Order Date: 09/01/24 Order Info: 785-1 - CMP Order Info: 36883-2 - CRP Order Info: 3 - TSH Order Info: 2497-07 - FE Order Info: 2275-07 - FLOR Result Comment: mL/m in/1.73m2 CKD-EPI Creatinine Equation (2020) Performed By: #### L 509.6001, L503.0106, L506.1001 #### [facility] [address] [place], [address] Globulin (S) [Mass/Vol] 3.2 g/dL Normal 2.2-4.2 [facility] Comment on above: Order Comment: Order Date: 09/01/24 Order Info: 0786-1 - CMP Order Info: 57381-4 - CRP Order Info: 3 - TSH Order Info: 2497-07 - FE Order Info: 2275-07 - FLOR Performed By: #### L 509.6001, L503.0106, L506.1001 #### [facility] [address] [place], [address] Glucose [Mass/Vol] 169 mg/dL High 70-99 [facility] Comment on above: Order Comment: Order Date: 09/01/24 Order Info: 07-1 - CMP Order Info: 33452-5 - CRP Order Info: 3 - TSH Order Info: 2498-4 - FE Order Info: 2275-07 - FLOR Performed By: #### L 509.6001, L503.0106, L506.1001 #### [facility] [address] [place], [address] Potassium [Moles/Vol] 4.1 mmol/L Normal 3.3-5.1 [facility] Comment on above: Order Comment: Order Date: 09/01/24 Order Info: 0786-1 - CMP Order Info: 32478-1 - CRP Order Info: 3 - TSH Order Info: 2497-07 - FE Order Info: 2275-07 - FLOR Performed By: #### L 509.6001, L503.0106, L506.1001 #### [facility] [address] [place], [address] Sodium [Moles/Vol] 133 mmol/L Normal 133-145 [facility] Comment on above: Order Comment: Order Date: 09/01/24 Order Info: 0786 - CMP Order Info: 82985-8 - CRP Order Info: 3 - TSH Order Info: 2497-07 FE Order Info: 2275-07 - FLOR Performed By: #### L 509.6001, L503.0106, L506.1001 #### [facility] [address] [place], [address] T PROT 7.5 g/dL Normal 5.9-8.4 [facility] Comment on above: Order Comment: Order Date: 09/01/24 Order Info: 0786- - CMP Order Info: 04999-1 - CRP Order Info: 3 - TSH Order Info: 2497-07 FE Order Info: 2275-07 - FLOR Performed By: #### L 509.6001, L503.0106, L506.1001 #### [facility] [address] [place], [address] Urea nitrogen [Mass/Vol] 15 mg/dL Normal 4-19 [facility] Comment on above: Order Comment: Order Date: 09/01/24 Order Info: 0786-1 - CMP Order Info: 31407-0 - CRP Order Info: 3 - TSH Order Info: 2497-07 - FE Order Info: 2275-07 - FLOR Performed By: #### L 509.6001, L503.0106, L506.1001 #### [facility] [address] [place], [place], [address] Eosinophil percentageOrdered By: Donovan Hernandez on 08-19-2024 Eosinophils/100 WBC (Bld) 1.0 % 0-5 [facility] Erythrocyte Sed Rateon 08-19 SED RATE 45 mm/hr High 0-30 [facility] Comment on above: Order Comment: Order Date: 09/01/24 Order Info: 0786-1 - CMP Order Info: 03108-6 - CRP Order Info: 3 - TSH Order Info: 2497-07 - FE Order Info: 2275-07 - FLOR Performed By: #### L 509.6001, L503.0106, L506.1001 #### [facility] [address] [place], [place], [address] Erythrocyte distribution wid th ratioOrdered By: Donovan Hernandez on 08-19-2024 Erythrocyte distribution width (RBC) [Ratio] 14.8 % High 11.6-14.6 [facility] Erythrocyte distribution wid th standard deviationOrdered By: Donovan Hernandez on 08-19-2024 Erythrocyte distribution width (RBC) [Ratio] 50.8 fl High 35.1-43.9 [facility] Erythrocyte sedimentation ra teOrdered By: Donovan Hernandez on 08-19-2024 ESR (Bld) [Velocity] 45 mm/h High 0-30 [facility] Glomerular filtration rate ( GFR) estimation/1.73 sq m using serum, plasma, or whole bOrdered By: Donovan Hernandez on 08-19-2024 GFR/1.73 sq M.predicted among non-blacks MDRD (S/P/Bld) [Vol rate/Area] 55 mL/min/{1.73_m2} Low >60 [facility] Comment on above: mL/min/1.73m2 CKD-EP I Creatinine Equation (2020) Hematocrit Auto (Bld) [Volum e fraction]Ordered By: Donovan Hernandez on 08-19-2024 Hematocrit (Bld) [Volume fraction] 42.8 % 37-47 [facility] Hemoglobin measurementOrdere d By: Donovan Hernandez on 08-19-2024 Hemoglobin (Bld) [Mass/Vol] 14.3 g/dL 12.0-15.0 [facility] Immature granulocytes/100 WB C Auto (Bld)Ordered By: Donovan Hernandez on 08-19-2024 Immature granulocytes/100 WBC (Bld) 0.700 % 0.0-0.9 [facility] Comment on above: IG% - Immature Granu locytes (promyelocytes, myelocytes and metamyelocytes) > 1% indicates that a LEFT SHIFT is Present. Laboratory - Chemistry and C hemistry - challengeOrdered By: Donovan Hernandez on 08-19-2024 AST [Catalytic activity/Vol] 18 U/L <32 [facility] Lipaseon 08-19-2024 Lipase [Catalytic activity/Vol] 26 U/L Normal 13-75 [facility] Comment on above: Order Comment: Order Date: 09/01/24 Order Info: 0786-1 - CMP Order Info: [id number] - CRP Order Info: 3016-3 - TSH Order Info: 2498-4 - FE Order Info: 2276-4 - FLOR Result Comment: Danny disla note: LIPASE revised reference range effective 22. New Lipase methodology. Expected to produce lower values than the previous assay method. NEW Reference Range: 13 - 75 U/L Performed By: #### L 509.6001, L503.0106, L506.1001 #### [facility] [place], [address] Lipase measurementOrdered By : Donovan Hernandez on 08-19-2024 Lipase [Catalytic activity/Vol] 26 U/L 13-75 [facility] Comment on above: Please note:LIPASE r evised reference range effective 22. New Lipase methodology. Expected to produce lower values than the previous assay method. NEW Reference Range: 13 - 75 U/L MCV (mean corpuscular volume ) determinationOrdered By: Donovan Hernandez on 08-19-2024 MCV (RBC) [Entitic vol] 93.0 fL 81-99 [facility] Mean corpuscular hemoglobin (MCH) determinationOrdered By: Donovan Hernandez on 08-19-2024 MCH (RBC) [Entitic mass] 31.1 pg 27.0-32.0 [facility] Mean corpuscular hemoglobin concentration (MCHC) determinationOrdered By: Donovan Hernandez on 08-19-2024 MCHC (RBC) [Mass/Vol] 33.4 g/dL 32-36 [facility] Mean platelet volume determi nationOrdered By: Donovan Hernandez on 08-19-2024 Platelet mean volume (Bld) [Entitic vol] 9.1 fL 6.2-12.0 [facility] Monocyte percentageOrdered B y: Donovan Hernandez on 08-19-2024 Monocytes/100 WBC (Bld) 8.8 % 0-10 [facility] Neutrophil percentageOrdered By: Donovan Hernandez on 08-19-2024 Neutrophils/100 WBC (Bld) 82.2 % High 47-70 [facility] Nucleated red blood cell per centageOrdered By: Donovan Hernandez on 08-19-2024 Nucleated RBC/100 WBC (Bld) [Ratio] 0 % 0-5 [facility] Platelet countOrdered By: Jose Hernandez on 08-19-2024 Platelets (Bld) [#/Vol] 389 10*3/uL 150-450 [facility] Potassium measurement (mass/ volume)Ordered By: Donovan Hernandez on 08-19-2024 Potassium (Unsp spec) [Mass/Vol] 4.1 mmol/L 3.3-5.1 [facility] RBC Auto (Bld) [#/Vol]Ordere d By: Donovan Hernandez on 08-19-2024 RBC (Bld) [#/Vol] 4.60 10*6/uL 4.2-5.4 [facility] Serum creatinine measurement (mass/volume)Ordered By: Donovan Hernandez on 08-19-2024 Creatinine [Mass/Vol] 1.10 mg/dL 0.70-1.20 [facility] Serum globulin measurementOr dered By: Donovan Hernandez on 08-19-2024 Globulin (S) [Mass/Vol] 3.2 g/dL 2.2-4.2 [facility] Serum glucose measurement (m ass/volume)Ordered By: Donovan Hernandez on 08-19-2024 Glucose [Mass/Vol] 169 mg/dL High 70-99 [facility] Serum or plasma alanine garner otransferase (ALT) measurementOrdered By: Donovan Hernandez on 08-19-2024 ALT [Catalytic activity/Vol] 10 U/L <35 [facility] Serum or plasma albumin julio urement (mass/volume)Ordered By: Donovan Hernandez on 08-19-2024 Albumin [Mass/Vol] 4.3 g/dL 3.4-4.8 [facility] Serum or plasma albumin/glob ulin mass ratioOrdered By: Donovan Hernnadez on 08-19-2024 Albumin/Globulin [Mass ratio] 1.4 {ratio} 0.9-2.4 [facility] Serum or plasma alkaline marcin sphatase measurementOrdered By: Donovan Hernandez on 08-19-2024 ALP [Catalytic activity/Vol] 105 U/L High 35-104 [facility] Serum or plasma amylase julio urement (enzymatic activity/volume)Ordered By: Donovan Hernandez on 08-19-2024 Amylase [Catalytic activity/Vol] 29 U/L 28-100 [facility] Serum or plasma calcium julio urement (mass/volume)Ordered By: Donovan Hernandez on 08-19-2024 Calcium [Mass/Vol] 9.9 mg/dL 7.6-11.0 [facility] Serum or plasma urea nitroge n measurement (mass/volume)Ordered By: Donovan Hernandez on 08-19-2024 Urea nitrogen [Mass/Vol] 15 mg/dL 4-19 [facility] Sodium levelOrdered By: Shane Hernandez on 08-19-2024 Sodium [Moles/Vol] 133 mmol/L 133-145 [facility] Total proteinOrdered By: Dennys Hernandez on 08-19-2024 Protein [Mass/Vol] 7.5 g/dL 5.9-8.4 [facility] White blood cell (WBC) count Ordered By: Donovan Hernandez on 08-19-2024 WBC (Bld) [#/Vol] 13.1 10*3/uL High 4.4-11.0 [facility] 36on 08-17-2024 36 Confirmed patient Name and : Yes Medication name(s) and dose(s) requested: Oxycodone (Roxicodone) 5 MG IR Tablets Trazodone (Desyrel) 100 MG Tablets Approximate number of pills available in the home: Oxycodone- 1 Tablet Left Trazodone- None Left Confirmed and updated correct pharmacy: Yes Reminded patient of 3 business day refill policy on all medication refill requests: Yes Notified patient to call pharmacy to confirm prescription ready for pickup and to call office if not available within 3 business days: Yes Date of last appointment: 07/15/24 Date of next appointment: 09/09/[address] [facility] 36on 08-09-2024 36 Reviewed oaars., eprescribed refill of ativan [facility] 36 Confirmed patient Name and : Yes Medication name(s) and dose(s) requested: Lorazepam (Ativan) 1 MG Tablet Approximate number of pills available in the home: 1 Tablet Left Confirmed and updated correct pharmacy: Yes Reminded patient of 3 business day refill policy on all medication refill requests: Yes Notified patient to call pharmacy to confirm prescription ready for pickup and to call office if not available within 3 business days: Yes Date of last appointment: 07/15/24 Date of next appointment: 09/09/[address] [facility] Anion gap in Serum or Plasma Ordered By: Donovan Hernandez on 08-05-2024 Anion gap [Moles/Vol] 18 mmol/L High 09-02 [facility] BUN/creatinine ratioOrdered By: Donovan Hernandez on 08-05-2024 Urea nitrogen/Creatinine [Mass ratio] 12.7 mg/mg 02-07 [facility] Basic Metabolic Profile (BMP )on 08-05-2024 BUN/CRE 12.7 RATIO Normal 02-07 [facility] Comment on above: Order Comment: Order Date: 08/05/24 Order Info: 06- - BMP Order Info: 3015-3 - TSH Performed By: #### L 500.2500, L501.9520, L501.7300 #### [facility] [address] [place], [address] Calcium [Mass/Vol] 9.3 mg/dL Normal 7.6-11.0 [facility] Comment on above: Order Comment: Order Date: 08/05/24 Order Info: 06- - BMP Order Info: 3015-3 - TSH Performed By: #### L 500.2500, L501.9520, L501.7300 #### [facility] [address] [place], [address] Chloride [Moles/Vol] 103 mmol/L Normal 98-108 [facility] Comment on above: Order Comment: Order Date: 08/05/24 Order Info: 06- - [facility] Order Info: 3015-3 - TSH Performed By: #### L 500.2500, L501.9520, L501.7300 #### [facility] [address] [place], [address] CO2 [Moles/Vol] 17.7 mmol/L Low 21.0-32.0 [facility] Comment on above: Order Comment: Order Date: 08/05/24 Order Info: 06- - BMP Order Info: 3015-3 - TSH Performed By: #### L 500.2500, L501.9520, L501.7300 #### [facility] [address] [place], [address] Creatinine [Mass/Vol] 0.87 mg/dL Normal 0.70-1.20 [facility] Comment on above: Order Comment: Order Date: 08/05/24 Order Info: 0667- - BMP Order Info: 3015-3 - TSH Performed By: #### L 500.2500, L501.9520, L501.7300 #### [facility] [address] [place], [address] GAP 18 High 5-15 [facility] Comment on above: Order Comment: Order Date: 08/05/24 Order Info: 06- - BMP Order Info: 3015-06 - TSH Performed By: #### L 500.2500, L501.9520, L501.7300 #### [facility] [address] [place], [address] GFR/1.73 sq M.predicted among non-blacks MDRD (S/P/Bld) [Vol rate/Area] 73 mL/min/{1.73_m2} Normal >60 [facility] Comment on above: Order Comment: Order Date: 08/05/24 Order Info: 06- - BMP Order Info: 3015-06 - TSH Result Comment: mL/m in/1.73m2 CKD-EPI Creatinine Equation (2020) Performed By: #### L 500.2500, L501.9520, L501.7300 #### [facility] [address] [place], [address] Glucose [Mass/Vol] 151 mg/dL High 70-99 [facility] Comment on above: Order Comment: Order Date: 08/05/24 Order Info: 06-1 - BMP Order Info: 3015-06 - TSH Performed By: #### L 500.2500, L501.9520, L501.7300 #### [facility] [address] [place], [address] Potassium [Moles/Vol] 3.3 mmol/L Normal 3.3-5.1 [facility] Comment on above: Order Comment: Order Date: 08/05/24 Order Info: 06- - BMP Order Info: 3015-06 - TSH Performed By: #### L 500.2500, L501.9520, L501.7300 #### [facility] [address] [place], [address] Sodium [Moles/Vol] 138 mmol/L Normal 133-145 [facility] Comment on above: Order Comment: Order Date: 08/05/24 Order Info: 0667-1 - BMP Order Info: 301-3 - TSH Performed By: #### L 500.2500, L501.9520, L501.7300 #### [facility] [address] [place], [place], [address] Urea nitrogen [Mass/Vol] 11 mg/dL Normal 4-19 [facility] Comment on above: Order Comment: Order Date: 08/05/24 Order Info: 0667-1 - BMP Order Info: 30163 - TSH Performed By: #### L 500.2500, L501.9520, L501.7300 #### [facility] [address] [place], [address] Carbon dioxide, total [Moles /volume] in Central venous bloodOrdered By: Donovan Hernandez on 08-05-2024 CO2 [Moles/Vol] 17.7 mmol/L Low 21.0-32.0 [facility] Chloride assayOrdered By: Jose Hernandez on 08-05-2024 Chloride [Moles/Vol] 103 mmol/L 98-108 [facility] GFR/1.73 sq M.predicted irchard g non-blacks MDRD (S/P/Bld) [Vol rate/Area]Ordered By: Donovan Hernandez on 08-05-2024 Estimated GFR (MDRD) Non-Af Amer 73 >60 [facility] Comment on above: mL/min/1.73m2 CKD-EP I Creatinine Equation (2020) Glomerular filtration rate ( GFR) estimation/1.73 sq m using serum, plasma, or whole bOrdered By: Donovan Hernandez on 08-05-2024 GFR/1.73 sq M.predicted among non-blacks MDRD (S/P/Bld) [Vol rate/Area] 73 mL/min/{1.73_m2} >60 [facility] Comment on above: mL/min/1.73m2 CKD-EP I Creatinine Equation (2020) Osmolality, Serumon 08-06-19 OSMOLALITY,SER 291 mOsm/KG Normal 280-301 [facility] Comment on above: Order Comment: Order Date: 08/05/24 Order Info: 2692-2 - OS Performed By: #### L 500.2500, L501.9520, L501.7300 #### [facility] [address] [place], [address] Osmolality, serumOrdered By: Donovan Hernandez on 08-05-2024 Serum Osmolality 291 mOsm/KG 280-301 [facility] Potassium (Unsp spec) [Mass/ Vol]Ordered By: Donovan Hernandez on 08-05-2024 Potassium [Moles/Vol] 3.3 mmol/L 3.3-5.1 [facility] Potassium measurement (mass/ volume)Ordered By: Donovan Hernandez on 08-05-2024 Potassium (Unsp spec) [Mass/Vol] 3.3 mmol/L 3.3-5.1 [facility] Serum creatinine measurement (mass/volume)Ordered By: Donovan Hernandez on 08-05-2024 Creatinine [Mass/Vol] 0.87 mg/dL 0.70-1.20 [facility] Serum glucose measurement (m ass/volume)Ordered By: Donovan Hernandez on 08-05-2024 Glucose [Mass/Vol] 151 mg/dL High 70-99 [facility] Serum or plasma calcium julio urement (mass/volume)Ordered By: Donovan Hernandez on 08-05-2024 Calcium [Mass/Vol] 9.3 mg/dL 7.6-11.0 [facility] Serum or plasma urea nitroge n measurement (mass/volume)Ordered By: Donovan Hernandez on 08-05-2024 Urea nitrogen [Mass/Vol] 11 mg/dL 4-19 [facility] Sodium levelOrdered By: Shane Hernandez on 08-05-2024 Sodium [Moles/Vol] 138 mmol/L 133-145 [facility] TSH DL <= 0.005 mIU/L QnOrde red By: Donovan Hernandez on 08-05-2024 Thyroid Stimulating Hormone (TSH) 2.710 uIU/mL 0.300-4.200 [facility] TSH Qn 2.710 uIU/mL 0.300-4.200 [facility] Thyroid Stim Hormone (TSH)on 08-05-2024 TSH 2.710 uIU/mL Normal 0.300-4.200 [facility] Comment on above: Order Comment: Order Date: 08/05/24 Order Info: 0667-1 - BMP Order Info: 3016-3 - TSH Performed By: #### L 500.2500, L501.9520, L501.7300 #### [facility] [address] [place], [address] Urine Cultureon 07-21-2024 [facility] Mixed Gram Positive Organisms [place] Count 11,000-25,000 [facility] Mixed contaminants. Submit a new specimen if indicated. [facility] Comment on above: Performed By: #### L 501.080 #### [facility] [address] [facility] [place], [address] 36on 07-19-2024 36 All script sent over on 07/15/[address] [facility] 36 Received a message from Alka Cason that this patient lost her insurance. Attempted to reach out to patient to discuss. LVMM encouraging her to call me back to discuss. [facility] 36 Patient called in stating that she thought that she forgot to order her Trazodone refill. I let her know that it is on the request from Friday and I will let the provider know that she still needs this medication. [facility] 12 Lead EKGon 07-18-2024 12 Lead EKG [facility] Cardiovascular Services [address] [place] [address] 12 Lead EKG 07/18/24 1655 MR#: [id number] Acct: [id number] Name: DANNY PINK Rep #: [id number] : 1955 68 From: Joseph Beasley MD Attending Dr: Status: DEP ER Ordering Dr: Chuy Kinney DO Date: 07/18/24 Location: ED Sex: F C Admitted: Test Reason : GENERAL Blood Pressure : */* mmHG Vent. Rate : 97 BPM Atrial Rate : 97 BPM P-R Int : 150 ms QRS Dur : 92 ms QT Int : 364 ms P-R-T Axes : 49 37 72 degrees QTcB Int : 462 ms Normal sinus rhythm Nonspecific ST abnormality Abnormal ECG Confirmed by JOSEPH BEASLEY MD ([id number]), editor producer EMILEE ORTIZ ([id number]) on 07/20/2024 8:25:47 AM Referred By: Confirmed By: JOSEPH BEASLEY MD 07/20/24824 Joseph Beasley MD CC: Dr. Donovan Hernandez MD; Dr. Chuy Kinney, DO Signed Normal [facility] Absolute lymphocyte countOrd ered By: Chuy Kinney on 07-18-2024 Lymphocytes Auto (Unsp spec) [#/Vol] 0.86 10*3/uL 0.83-4.51 [facility] Absolute neutrophil countOrd ered By: Chuy Kinney on 07-18-2024 Neutrophils (Bld) [#/Vol] 8.8 10*3/uL High 2.0-7.7 [facility] Anion gap in Serum or Plasma Ordered By: Chuy Kinney on 07-18-2024 Anion gap [Moles/Vol] 20 mmol/L High 5-15 [facility] Automated lymphocyte count a s percentage of total leukocytesOrdered By: Chuy Kinney on 07-18-2024 Lymphocytes/100 WBC Auto (Unsp spec) 8.0 % Low 19-41 [facility] BUN/creatinine ratioOrdered By: Chuy Kinney on 07-18-2024 Urea nitrogen/Creatinine [Mass ratio] 11.6 mg/mg - [facility] Basic Metabolic Profile (BMP )on 07-18-2024 BUN/CRE 11.6 RATIO Normal 02-07 [facility] Comment on above: Performed By: #### L 509.6001, L503.0106, L506.1001 #### [facility] [place], [address] Calcium [Mass/Vol] 9.8 mg/dL Normal 7.6-11.0 [facility] Comment on above: Performed By: #### L 509.6001, L503.0106, L506.1001 #### [facility] [address] [place], [address] Chloride [Moles/Vol] 97 mmol/L Low 98-108 [facility] Comment on above: Performed By: #### L 509.6001, L503.0106, L506.1001 #### [facility] [address] [place], [address] CO2 [Moles/Vol] 14.7 mmol/L Low 21.0-32.0 [facility] Comment on above: Performed By: #### L 509.6001, L503.0106, L506.1001 #### [facility] [address] [place], [address] Creatinine [Mass/Vol] 1.07 mg/dL Normal 0.70-1.20 [facility] Comment on above: Performed By: #### L 509.6001, L503.0106, L506.1001 #### [facility] [address] [place], [address] ECRCL 58.86 ml/min Normal 50-250 [facility] Comment on above: Performed By: #### L 509.6001, L503.0106, L506.1001 #### [facility] [address] [place], [address] GAP 20 High 5-15 [facility] Comment on above: Performed By: #### L 509.6001, L503.0106, L506.1001 #### [facility] [address] [place], [address] GFR/1.73 sq M.predicted among non-blacks MDRD (S/P/Bld) [Vol rate/Area] 57 mL/min/{1.73_m2} Low >60 [facility] Comment on above: Result Comment: mL/m in/1.73m2 CKD-EPI Creatinine Equation (2020) Performed By: #### L 509.6001, L503.0106, L506.1001 #### [facility] [address] [place], [address] Glucose [Mass/Vol] 216 mg/dL High 70-99 [facility] Comment on above: Performed By: #### L 509.6001, L503.0106, L506.1001 #### [facility] [address] [place], [address] Potassium [Moles/Vol] 4.3 mmol/L Normal 3.3-5.1 [facility] Comment on above: Result Comment: Hemo lysis present, Results??could be affected. ?? Performed By: #### L 509.6001, L503.0106, L506.1001 #### [facility] [address] [place], [address] Sodium [Moles/Vol] 131 mmol/L Low 133-145 [facility] Comment on above: Performed By: #### L 509.6001, L503.0106, L506.1001 #### [facility] [address] [place], [address] Urea nitrogen [Mass/Vol] 12 mg/dL Normal 4-19 [facility] Comment on above: Performed By: #### L 509.6001, L503.0106, L506.1001 #### [facility] [address] [place], [address] Basophil percentageOrdered B y: Chuy Le on 07-18-2024 Basophils/100 WBC (Bld) 0.6 % 0-1 [facility] Bedside Glucoseon 07-18-2024 FINGERSTICK GLU 225 mg/dL High 74-106 [facility] Comment on above: Result Comment: LILA GODINEZ OF PATIENT CARE PER NURSING PROTOCOL Performed By: #### L 501.080 #### [facility] [address] [place], [address] Bilirubin Test strip Ql (U)O rdered By: Chuy Kinney on 07-18-2024 Bilirubin Ql (U) 1 mg/dL High Negative [facility] Comment on above: COLOR OF URINE MAY A FFECT DIPSTICK RESULTS. CBC W/Diff, Automatedon 06-21 0-2024 Absolute Lymph 0.86 X10 3/uL Normal 0.83-4.51 [facility] Comment on above: Performed By: #### L 509.6001, L503.0106, L506.1001 #### [facility] [address] [place], [address] Absolute Neut 8.8 X10 3/uL High 2.0-7.7 [facility] Comment on above: Performed By: #### L 509.6001, L503.0106, L506.1001 #### [facility] [address] [place], [address] Basophils/100 WBC (Bld) 0.6 % Normal 0-1 [facility] Comment on above: Performed By: #### L 509.6001, L503.0106, L506.1001 #### [facility] [address] [place], [address] Eosinophils/100 WBC (Bld) 0.3 % Normal 0-5 [facility] Comment on above: Performed By: #### L 509.6001, L503.0106, L506.1001 #### [facility] [address] [place], [address] Erythrocyte distribution width (RBC) [Ratio] 13.8 % Normal 11.6-14.6 [facility] Comment on above: Performed By: #### L 509.6001, L503.0106, L506.1001 #### [facility] [address] [place], [address] Hematocrit (Bld) [Volume fraction] 42.2 % Normal 37-47 [facility] Comment on above: Performed By: #### L 509.6001, L503.0106, L506.1001 #### [facility] [address] [place], [address] Hemoglobin (Bld) [Mass/Vol] 14.3 g/dL Normal 12.0-15.0 [facility] Comment on above: Performed By: #### L 509.6001, L503.0106, L506.1001 #### [facility] [address] [place], [address] IG% 1.000 High 0.0-0.9 [facility] Comment on above: Result Comment: IG% - Immature Granulocytes (promyelocytes, myelocytes and metamyelocytes) > 1% indicates that a LEFT SHIFT is Present. Performed By: #### L 509.6001, L503.0106, L506.1001 #### [facility] [address] [place], [address] Lymphocytes/100 WBC (Bld) 8.0 % Low 19-41 [facility] Comment on above: Performed By: #### L 509.6001, L503.0106, L506.1001 #### [facility] [address] [place], [address] MCH (RBC) [Entitic mass] 31.0 pg Normal 27.0-32.0 [facility] Comment on above: Performed By: #### L 509.6001, L503.0106, L506.1001 #### [facility] [address] [place], [address] MCHC (RBC) [Mass/Vol] 33.9 g/dL Normal 32-36 [facility] Comment on above: Performed By: #### L 509.6001, L503.0106, L506.1001 #### [facility] [address] [place], [address] MCV (RBC) [Entitic vol] 91.5 fL Normal 81-99 [facility] Comment on above: Performed By: #### L 509.6001, L503.0106, L506.1001 #### [facility] [address] [place], [address] Monocytes/100 WBC (Bld) 7.9 % Normal 0-10 [facility] Comment on above: Performed By: #### L 509.6001, L503.0106, L506.1001 #### [facility] [address] [place], [address] Neutrophils/100 WBC (Bld) 82.2 % High 47-70 [facility] Comment on above: Performed By: #### L 509.6001, L503.0106, L506.1001 #### [facility] [address] [place], [address] Nucleated RBC (Bld) [#/Vol] 0 10*3/uL Normal 0-5 [facility] Comment on above: Performed By: #### L 509.6001, L503.0106, L506.1001 #### [facility] [address] [place], [address] Platelet mean volume (Bld) [Entitic vol] 8.4 fL Normal 6.2-12.0 [facility] Comment on above: Performed By: #### L 509.6001, L503.0106, L506.1001 #### [facility] [address] [place], [address] Platelets (Bld) [#/Vol] 465 10*3/uL High 150-450 [facility] Comment on above: Performed By: #### L 509.6001, L503.0106, L506.1001 #### [facility] [address] [place], [address] RBC (Bld) [#/Vol] 4.61 10*6/uL Normal 4.2-5.4 [facility] Comment on above: Performed By: #### L 509.6001, L503.0106, L506.1001 #### [facility] [address] [place], [address] RDW SD 46.5 fl High 35.1-43.9 [facility] Comment on above: Performed By: #### L 509.6001, L503.0106, L506.1001 #### [facility] [address] [place], [address] WBC (Bld) [#/Vol] 10.7 10*3/uL Normal 4.4-11.0 [facility] Comment on above: Performed By: #### L 509.6001, L503.0106, L506.1001 #### [facility] [address] [place], [address] Carbon dioxide, total [Moles /volume] in Central venous bloodOrdered By: Chuy Kinney on 07-18-2024 CO2 [Moles/Vol] 14.7 mmol/L Low 21.0-32.0 [facility] Chest PA and Lateralon 07-18 Chest PA and Lateral [facility] Imaging Services [address] [place] [address] Chest PA and Lateral MR#: [id number] Acct: [id number] Name: DANNY PINK Rep #: [id number] : 1955 F 68 From: Kareen Cheng nd, MD PCP: Dr. Donovan Hernandez MD Status: [facility] ER Study: Chest PA and Lateral Date of Exam: 07/18/24 Exam# [id number] Ordering Dr: Chuy Kinney DO PROCEDURE: CHEST PA AND LATERAL 07/18/2024 REASON FOR EXAM: 68-year-old female, COUGH TECHNIQUE: Frontal and lateral views of the chest. COMPARISON: Chest radiograph 03/22/2024. FINDINGS: Hardware: Stable right chest port with tip terminating in the SVC. Heart: The heart size is normal. Mediastinum: The mediastinal contour is unremarkable. Lungs: No focal consolidation, pleural effusion or pneumothorax. Bones: Degenerative changes are identified within the thoracic spine. RAD/Chest PA and Lateral IMPRESSION: NO ACUTE FINDINGS. Reading Location: [facility] CC: Dr. Donovan Hernandez MD; Dr. Chuy Kinney DO Hand Violin Maker: Signed Normal [facility] Chloride assayOrdered By: Isiah Kinney on 07-18-2024 Chloride [Moles/Vol] 97 mmol/L Low 98-108 [facility] Emergency Department Summary on 07-18-2024 Emergency Department Summary [facility] Medical Records Department [address] [place] [id number] Emergency Department Summary 07/18/24 MR#: [id number] Acct: [id number] Name: DANNY PINK Rep #: [id number] : 1955 68 From: Chuy Fleming PCP: Dr. Donovan Hernandez MD Status:REG ER Location: ED HPI History of Present Illness Chief Complaint: General Illness Informant: patient and family Narrative Narrative: Presents to ED decreased appetite for the past 3 days. No nausea or vomiting. States had diarrhea at that time this resolved nonbloody. Since then dyspnea cough sinus drainage myalgias. Denies fever headache reports chills. Denies urinary symptoms. Over states had urinary infections without symptoms in the past. No abdominal pain. History uterine cancer chemotherapy however last time more than a year ago. States chemo therapy led to bone pains. Denies sick contacts. She is tolerating oral fluids. Denies recent travel surgeries or immobilizations. No history of PE or DVT. [facility] Medical History Asthma HTN (hypertension), benign Diabetes s/p radiation Endometrial cancer Postmenopausal bleeding CVA (cerebral vascular accident) Mini stroke Glaucoma Home Medications ???Medication ???Instructions ???Recorded ???Last Taken ???Type aspirin 81 mg chewable tablet 81 mg PO DAILY@0800 ##100 05/06/14 12/18/17 Rx brimonidine 0.2 %-timolol 0.5 % 1 drp RIGHT EYE BID 12/19/1712/19 History eye drops dicyclomine 10 mg capsule 10 mg PO 4X/DAY 09/21/18 Unknown H istory gabapentin 100 mg capsule 300 mg PO TID PRN Pain 09/21/18 Un known History metformin 500 mg tablet,extended 500 mg PO BID 12/09/20 Unknown His tory release 24 hr ondansetron 4 mg disintegrating 4 mg PO Q8H PRN PRN Nausea #14 tab s 12/29/20 Unknown Rx tablet oxycodone 10 mg tablet 5 mg PO Q4H PRN Pain 04/29/23 Unkn own History gabapentin 300 mg capsule 300 mg PO Q12H 05/04/24 Unknown Hi story lorazepam 1 mg tablet 1 mg PO TID 05/04/24 Unknown Histo ry albuterol sulfate 90 mcg/actuation inhalation 07/18/24 Unknown Hist ory aerosol inhaler loratadine 10 mg tablet 10 mg PO DAILY #14 tabs 07/18/24 U nknown Rx meloxicam 7.5 mg tablet 7.5 mg PO DAILY 07/18/24 Unknown H istory omeprazole 40 mg capsule,delayed 40 mg PO 07/18/24 Unknown History release oxycodone 5 mg tablet 5 mg PO Q4H PRN PRN severe pain Unknown History trazodone 100 mg tablet 100 mg PO QHS 07/18/24 Unknown His tory Allergy/AdvReac Type Severity Reaction Status Date / Time morphine Allergy Anaphylaxis Verified 07/18/24 16:14 codeine AdvReac Upset Verified 07/18/24 16:14 Stomach Family History Father Colon cancer Heart disease Hypertension CVA (cerebral vascular accident) Mother Heart disease Hypertension Surgical History Hx of tonsillectomy Hx of hysterectomy delivery delivered Social History adopted: No household members: none number of children: 4 current occupational status: unemployed pets and animals: Yes Smoking Status: Former smoker Tobacco: How many years used: 20 alcohol intake: current alcohol intake frequency: holidays/special occasions only substance use type: does not use what type of physical activity do you participate in: walking seatbelt use: always do you feel safe at home: Yes ROS ROS ED Constitutional Constitutional ED: Reports chills; Denies fever(s) or sweats ENT ENT ED: Reports other Details: Sinus drainage ; Denies sore throat Cardiovascular Cardiovascular: Denies chest pain, leg edema, palpitations or racing heartbeat Respiratory/Chest Respiratory/Chest: Reports cough and dyspnea; Denies dyspnea on exertion Gastrointestinal Gastrointestinal: Reports other Details: Decreased appetite ; Denies abdominal pain, diarrhea, nausea or vomiting Genitourinary Genitourinary ED: Denies dysuria, hematuria or urinary frequency Musculoskeletal Musculoskeletal: Reports myalgias; Denies back pain, extremity pain or neck pain Integumentary Denies rash or wounds Neurologic Neurologic: Denies headache(s), paresthesias or weakness EXAM Physical Exam Const Vital Signs: 07/18/24 16:12 07/18/24 16:31 07/18/24 16:32 Temperature 97.1 F L 98.6 F Temperature Source Temporal Oral Pulse Rate 108 H 102 H Respiratory Rate 20 H 22 H Respiratory Effort Normal Respiratory Pattern Normal Blood Pressure 168/115 H 203/114 H Blood Pressure Mean 132 143 Pulse Ox 98 98 Oxygen Delivery Method Room Air Room Air 07/18/24 16:34 07/18/24 16:59 07/18/24 17:14 Temperature 9 (more content not included)... Normal [facility] Eosinophil percentageOrdered By: Chuy Kinney on 07-18-2024 Eosinophils/100 WBC (Bld) 0.3 % 0-5 [facility] Epithelial cells.squamous LM Ql (Urine sed)Ordered By: Chuy Kinney on 07-18-2024 Epithelial cells.squamous LM.HPF (Urine sed) [#/Area] 0 /[HPF] 5-10 [facility] Erythrocyte distribution wid th ratioOrdered By: Chuy Kinney on 07-18-2024 Erythrocyte distribution width (RBC) [Ratio] 13.8 % 11.6-14.6 [facility] Erythrocyte distribution wid th standard deviationOrdered By: Chuy Kinney on 07-18-2024 Erythrocyte distribution width (RBC) [Entitic vol] 46.5 fL High 35.1-43.9 [facility] Erythrocyte distribution width (RBC) [Ratio] 46.5 fl High 35.1-43.9 [facility] Estimation of creatinine javon aranceOrdered By: Chuy Kinney on 07-18-2024 Estimated Creatinine Clearance Calc 58.86 ml/min 50-250 [facility] GFR/1.73 sq M.predicted richard g non-blacks MDRD (S/P/Bld) [Vol rate/Area]Ordered By: Chuy Kinney on 07-18-2024 Estimated GFR (MDRD) Non-Af Amer 57 Low >60 [facility] Comment on above: mL/min/1.73m2 CKD-EP I Creatinine Equation (2020) Glomerular filtration rate ( GFR) estimation/1.73 sq m using serum, plasma, or whole bOrdered By: Chuy Kinney on 07-18-2024 GFR/1.73 sq M.predicted among non-blacks MDRD (S/P/Bld) [Vol rate/Area] 57 mL/min/{1.73_m2} Low >60 [facility] Comment on above: mL/min/1.73m2 CKD-EP I Creatinine Equation (2020) Glucose Ql (U)Ordered By: Isiah Kinney on 07-18-2024 Urine Glucose (UA) Normal mg/dl Normal [facility] By: Chuy Kinney on 07-18-2024 Bedside Glucose (Misc Panel) 225 mg/dL High 74-106 [facility] Comment on above: MANAGEMENT OF PATIEN T CARE PER NURSING PROTOCOL Glucose [Mass/Vol] 225 mg/dL High 74-106 [facility] Comment on above: MANAGEMENT OF PATIEN T CARE PER NURSING PROTOCOL Hematocrit Auto (Bld) [Volum e fraction]Ordered By: Chuy Kinney on 07-18-2024 Hematocrit (Bld) [Volume fraction] 42.2 % 37-47 [facility] Hemoglobin measurementOrdere d By: Chuy Kinney on 07-18-2024 Hemoglobin (Bld) [Mass/Vol] 14.3 g/dL 12.0-15.0 [facility] Immature granulocytes/100 WB C Auto (Bld)Ordered By: Chuy Kinney on 07-18-2024 Immature granulocytes/100 WBC (Bld) 1.000 % High 0.0-0.9 [facility] Comment on above: IG% - Immature Granu locytes (promyelocytes, myelocytes and metamyelocytes) > 1% indicates that a LEFT SHIFT is Present. Influenza virus A and B and SARS-CoV-2 (COVID-19) and Respiratory syncytial virus RNAOrdered By: Chuy Kinney on 07-18-2024 SARS-CoV-2 (COVID-19) RNA ÁNGEL+probe Ql (Unsp spec) [facility] Ketones Test strip Ql (U)Ord ered By: Chuy Kinney on 07-18-2024 Ketones Ql (U) Negative Negative [facility] Lymphocytes Auto (Unsp spec) [#/Vol]Ordered By: Chuy Kinney on 07-18-2024 Lymphocytes (Bld) [#/Vol] 0.86 10*3/uL 0.83-4.51 [facility] Lymphocytes/100 WBC Auto (Un sp spec)Ordered By: Chuy Kinney on 07-18-2024 Lymphocytes/100 WBC (Bld) 8.0 % Low 19-41 [facility] M100.678on 07-18-2024 M100.678 Pending SARS-CoV-2 (COVID 19) Negative INFLUENZA A Negative INFLUENZA B Negative RSV PCR Negative Normal [facility] Comment on above: Performed By: #### M 100.678, L400.0001 #### [facility] [place], [address] MCV (mean corpuscular volume ) determinationOrdered By: Chuy Kinney on 07-18-2024 MCV (RBC) [Entitic vol] 91.5 fL 81-99 [facility] Mean corpuscular hemoglobin (MCH) determinationOrdered By: Chuy Kinney on 07-18-2024 MCH (RBC) [Entitic mass] 31.0 pg 27.0-32.0 [facility] Mean corpuscular hemoglobin concentration (MCHC) determinationOrdered By: Chuy Kinney on 07-18-2024 MCHC (RBC) [Mass/Vol] 33.9 g/dL 32-36 [facility] Mean platelet volume determi nationOrdered By: Chuy Kinney on 07-18-2024 Platelet mean volume (Bld) [Entitic vol] 8.4 fL 6.2-12.0 [facility] Microscopic analysis of urin e for red blood cells (RBC)Ordered By: Chuy Kinney on 07-18-2024 Microscopic analysis of urine for red blood cells (RBC) 0-5 SEEN /hpf 0-5 [facility] Urine RBC 0-5 SEEN /hpf 0-5 [facility] Monocyte percentageOrdered B y: Chuy Kinney on 07-18-2024 Monocytes/100 WBC (Bld) 7.9 % 0-10 [facility] Mucus LM Ql (Urine sed)Order ed By: Chuy Kinney on 07-18-2024 Mucus Ql (Urine sed) 0 SEEN /hpf [facility] Neutrophil percentageOrdered By: Chuy Kinney on 07-18-2024 Neutrophils/100 WBC (Bld) 82.2 % High 47-70 [facility] Nitrite Test strip Ql (U)Ord ered By: Chuy Kinney on 07-18-2024 Nitrite Ql (U) Negative Negative [facility] Nucleated red blood cell per centageOrdered By: Chuy Kinney on 07-18-2024 Nucleated RBC/100 WBC (Bld) [Ratio] 0 % 0-5 [facility] Platelet countOrdered By: Isiah Kinney on 07-18-2024 Platelets (Bld) [#/Vol] 465 10*3/uL High 150-450 [facility] Potassium (Unsp spec) [Mass/ Vol]Ordered By: Chuy Kinney on 07-18-2024 Potassium [Moles/Vol] 4.3 mmol/L 3.3-5.1 [facility] Comment on above: Hemolysis present, R esults could be affected. Potassium measurement (mass/ volume)Ordered By: hCuy Kinney on 07-18-2024 Potassium (Unsp spec) [Mass/Vol] 4.3 mmol/L 3.3-5.1 [facility] Comment on above: Hemolysis present, R esults could be affected. Protein Test strip Ql (U)Ord ered By: Chuy Kinney on 07-18-2024 Protein Ql (U) 30 mg/dl High Negative [facility] RBC Auto (Bld) [#/Vol]Ordere d By: Chuy Kinney on 07-18-2024 RBC (Bld) [#/Vol] 4.61 10*6/uL 4.2-5.4 [facility] Serum creatinine measurement (mass/volume)Ordered By: Chuy Kinney on 07-18-2024 Creatinine [Mass/Vol] 1.07 mg/dL 0.70-1.20 [facility] Serum glucose measurement (m ass/volume)Ordered By: Chuy Kinney on 07-18-2024 Glucose [Mass/Vol] 216 mg/dL High 70-99 [facility] Serum or plasma calcium julio urement (mass/volume)Ordered By: Chuy Kinney on 07-18-2024 Calcium [Mass/Vol] 9.8 mg/dL 7.6-11.0 [facility] Serum or plasma urea nitroge n measurement (mass/volume)Ordered By: Chuy Kinney on 07-18-2024 Urea nitrogen [Mass/Vol] 12 mg/dL 4-19 [facility] Sodium levelOrdered By: Chuy Kinney on 07-18-2024 Sodium [Moles/Vol] 131 mmol/L Low 133-145 [facility] Squamous epithelial cells de tection in urine sediment by light microscopyOrdered By: Chuy Kinney on 07-18-2024 Epithelial cells.squamous LM Ql (Urine sed) 0-5 SEEN /hpf 5-10 [facility] Urinalysis, Completeon 07-18 EPI,SQUAMOUS 0-5 SEEN Normal 5-10 [facility] Comment on above: Order Comment: CLEAN CATCH Performed By: #### M 100.678, L400.0001 #### [facility] [address] [place], [place], [id number] RBC 0-5 SEEN Normal 0-5 [facility] Comment on above: Order Comment: CLEAN CATCH Performed By: #### M 100.678, L400.0001 #### [facility] [address] [place], [place], [id number] WBC 5-10 SEEN Normal 0-5 [facility] Comment on above: Order Comment: CLEAN CATCH Performed By: #### M 100.678, L400.0001 #### [facility] [address] [place], [address] BACTERIA 0 SEEN Normal None Seen [facility] Comment on above: Order Comment: CLEAN CATCH Performed By: #### M 100.678, L400.0001 #### [facility] [address] [place], [address] Mucus Ql (Urine sed) 0 SEEN Normal [facility] Comment on above: Order Comment: CLEAN CATCH Performed By: #### M 100.678, L400.0001 #### [facility] [address] [place], [place], [id number] Urine blood detectionOrdered By: Chuy Kinney on 07-18-2024 Urine Occult Blood 10 /ul High Negative [facility] Urine clarityOrdered By: Osorio Kinney on 07-18-2024 Clarity (U) Clear Clear [facility] Urine color determinationOrd ered By: Chuy Kinney on 07-18-2024 Color (U) Yellow Yellow [facility] Urine cultureOrdered By: Osorio Kinney on 07-18-2024 Bacteria identified Cx Nom (U) Positive Abnormal [facility] Urine glucose detectionOrder ed By: Chuy Kinney on 07-18-2024 Glucose Ql (U) Normal mg/dl Normal [facility] Urine leukocyte esterase det ection by dipstickOrdered By: Chuy Kinney on 07-18-2024 Leukocyte esterase Test strip Ql (U) 100 /ul High Negative [facility] Urine pHOrdered By: Chuy Kinney on 07-18-2024 pH (U) 5.0 [pH] 5.0 - 8.0 [facility] Urine sediment bacteria coun t by microscopy (number/high power field)Ordered By: Chuy Kinney on 07-18-2024 Bacteria LM.HPF (Urine sed) [#/Area] 0 /[HPF] None Seen [facility] Urine specific gravity measu rementOrdered By: Chuy Kinney on 07-18-2024 Specific gravity (U) [Rel density] 1.025 1.002-1.030 [facility] Urine urobilinogen measureme ntOrdered By: Chuy Kinney on 07-18-2024 Urobilinogen Ql (U) Normal mg/dl Normal [facility] Urobilinogen Ql (U)Ordered B y: Chuy Kinney on 07-18-2024 Urine Urobilinogen Normal mg/dl Normal [facility] White blood cell (WBC) count Ordered By: Chuy Kinney on 07-18-2024 WBC (Bld) [#/Vol] 10.7 10*3/uL 4.4-11.0 [facility] White blood cell countOrdere d By: Chuy Kinney on 07-18-2024 Urine WBC 5-10 SEEN /hpf 0-5 [facility] White blood cell count 5-10 SEEN /hpf 0-5 [facility] 36on 07-15-[address] [facility] 36 Confirmed patient Name and : Yes Medication name(s) and dose(s) requested: Lorazepam (Ativan) 1 MG Tablet Oxycodone (Roxicodone) 5 MG IR Tablets Prochlorperazine (Compazine) 10 MG Tablets Trazodone (Desyrel) 100 MG Tablets Approximate number of pills available in the home: Trazodone- None Left Compazine- 2 Tablets Left Ativan- None Left Oxycodone- 1 Tablet Left Confirmed and updated correct pharmacy: Yes Reminded patient of 3 business day refill policy on all medication refill requests: Yes Notified patient to call pharmacy to confirm prescription ready for pickup and to call office if not available within 3 business days: Yes Date of last appointment: 05/20/24 Date of next appointment: 07/15/[address] [facility] Office Visiton 07-15-2024 Follow-up visit [id number] Danny Pink 1955 F Date Provider Department Center 07/15/2024 [id number]-SWFIGALKA LEDEZMA [facility] None Family History Problem Relation Age of Onset Breast cancer Mother 90 Ovarian cancer Neg Hx Colon cancer Neg Hx Uterine cancer Neg Hx Family Status - Relation Status Age at Paternal Grandfather Paternal Grandmother Maternal Grandmother Maternal Grandfather Father Mother Alive Neg Hx Level of Service:50941 [facility] OFFICE/OUTPATIENT ESTABLISHED MOD MDM 30 MIN Reason for Visit and Comments: Pain [136] Fatigue [46] Depression [32] Anxiety [9] Shortness of Breath [304060] Normal [facility] Progress Noteon 07-15-2024 Progress Note [facility] [address], [address] [place], [place] [id number] Visit type: follow up appointment. Reason for Visit: Danny Pink is a 68 y.o. female with chief complaint of Pain, Fatigue, Depression, Anxiety, and Shortness of Breath Assessment and Plan Danny was seen today for pain, fatigue, shortness of breath, depression, anxiety and constipation. Diagnoses and all orders for this visit: Cancer related pain/ Neuropathy (Primary)- complicated, a typical neuropathy- noted started after carbo/taxol in 2019. Notes crushing bone pain in bilateral hips into legs and feet. Did not tolerate gabapentin tid or cymbalta. For neuropathy use oxycodone 5-10mg po q 4h prn pain. Reviewed OAARS, eprescribed oxycodone. Recurrent carcinoma of endometrium (HCC)- under care of Dr. Quiñonez, with multiple treatment lines and most recently simple partial vaginectomy. Notes still awaiting pet scan, and has not seen Dr. Quiñonez since 02/11,. Anxiety- continue with ativan Shortness of breath- with chest pressure- notes worst over the last two weeks, no help from albuterol- no hypoxia with walkign short distances. Discussed with Danny need to follow up with PCP, pulmnologist regarding SOB. If chest pain worsens/nausea- may need ER evalution. Did refer to social work and financial navigator to help with loss of insurance. 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 I assume responsibility for the patient's ongoing medical care of this condition. Follow-up: 4 weeks Subjective Danny Pink is a 68 y.o. 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 Tolerated treatment well. Due for repeat imaging to assess response to treatment. PET ordered. Unfortunately, there appears to be a new isolated vaginal lesion. Had simple partial vaginectomyunder care of Dr. Quiñonez on 10/06/23. Reviewed DAIRY MANUFACTURING TECHNOLOGIST/ONC notes, previously on multiple lines of chemotherapy/immunoth erapy. Pain Associated symptoms include chest pain, constipation, fatigue and shortness of breath. Fatigue Associated symptoms include chest pain and fatigue. Anxiety Symptoms include chest pain and shortness of breath. DepressionPatient presents with the following symptoms: shortness of breath. Shortness of Breath Associated symptoms include chest pain. Constipation Danny is seen today in follow up. She continues to not feel well at home. Notes poor appetite, ate this am and had episode of stomach pain and diarrhea.Notes poor SOB and chest pressure- started two weeks ago- no hypoxia. Still with chronic back pain and neuropathy. Now with lost of insurance, unable to check blood glucose or to see PCP. Still with infected tooth- no ability to see dentist. Pain Assessment (If Pain Scale >0) Description: sharp and crushing Duration: year(s) Frequency:Daily Location: bones, hips into legs Alleviating Factors: pain medication Exacerbating Factors: unable to associate with any factor Effect:Change in Function and Interference with Activities, worst at night Phenix Symptom Assessment Score Phenix Symptom Assessment System Pain Score: 8 Tiredness Score: 8 Nausea Score: 5 Depression Score: 9 Anxiety Score: 9 Drowsiness Score: 8 Appetite Score: 7 Wellbeing Score: 8 Dyspnea Score: 8 Other Problem Score: 6 Assessed by:patient Review of Systems Constitutional: Positive for fatigue. Respiratory: Positive for chest tightness and shortness of breath. Cardiovascular: Positive for chest pain. Gastrointestinal: Positive for constipation. 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 Constitutional: Appearance: Normal appearance. She is normal weight. Comments: Flat mood HENT: Mouth/Throat: Mouth: Mucous membranes are moist. Eyes: General: No scleral icterus. Extraocular Movements: Extraocular movements intact. Pupils: Pupils are equal, round, and reactive to light. Comments: 4 mm pupils bilaterally. Cardiovascular: Rate and Rhythm: Normal rate and regular rhythm. Pulses: Normal pulses. Pulmonary: Effort: Pulmonary effort is normal. No respira (more content not included)... [facility] Progress Note What is the most important item you want to discuss with your provider today? Pain is in her bones, back and legs. No concerns at this time Complete med rec line by line. Yes Do you need refills on any medications today? No Pharmacy confirmed in Med management section. Yes [address] 06-28-2024 36 Reviewed oaars.eprescribed refill [facility] 36 Confirmed patient Name and : Yes Medication name(s) and dose(s) requested: Gabapentin (Neurontin) 300 MG Capsule Lorazepam (Ativan) 1 MG Tablet Oxycodone (Roxicodone) 5 MG IR Tablet Approximate number of pills available in the home: Gabapentin- 8 Tablets left Ativan- None Left Oxycodone- 1 Tablet Left Confirmed and updated correct pharmacy: Yes Reminded patient of 3 business day refill policy on all medication refill requests: Yes Notified patient to call pharmacy to confirm prescription ready for pickup and to call office if not available within 3 business days: Yes Date of last appointment: 05/20/24 Date of next appointment: 07/15/24 [place] [address] 06-17-2024 36 aDnny came to desk, believing today she had an appointment. Having GERD, asking for something to help. Sent omeprazole to pharmacy. [address] 06-07-2024 36 Confirmed patient Name and : Yes Medication name(s) and dose(s) requested: Trazodone (Desyrel) 100 MG Tablet Approximate number of pills available in the home: None Left Confirmed and updated correct pharmacy: Yes Reminded patient of 3 business day refill policy on all medication refill requests: Yes Notified patient to call pharmacy to confirm prescription ready for pickup and to call office if not available within 3 business days: Yes Date of last appointment: 05/20/24 Date of next appointment: 07/15/[address] [facility] 36on 05-31-2024 36 Reviewed oaars. Refills okay for oxycodone to be used 5-10mg , will fill for today, ativan to be filled 06/06/24. [facility] 36 Confirmed patient Name and : Yes Medication name(s) and dose(s) requested: Lorazepam (Ativan) 1 MG Tablet Oxycodone (Roxicodone) 5 MG IR Tablet Approximate number of pills available in the home: Ativan- None Left Oxycodone- 2 Tablets Left Confirmed and updated correct pharmacy: Yes Reminded patient of 3 business day refill policy on all medication refill requests: Yes Notified patient to call pharmacy to confirm prescription ready for pickup and to call office if not available within 3 business days: Yes Date of last appointment: 05/20/24 Date of next appointment: 07/15/[address] [facility] 37on 05-20-2024 37 [facility] [phone] [facility] Office Visiton 05-20-2024 Follow-up visit [id number] Danny Pink 1955 F Date Provider Department Center 05/20/2024 [id number]-SZHGOALKA CASON [facility] None Family History Problem Relation Age of Onset Breast cancer Mother 90 Ovarian cancer Neg Hx Colon cancer Neg Hx Uterine cancer Neg Hx Family Status - Relation Status Age at Paternal Grandfather Paternal Grandmother Maternal Grandmother Maternal Grandfather Father Mother Alive Neg Hx Level of Service:83369 [facility] OFFICE/OUTPATIENT ESTABLISHED MOD MDM 30 MIN Reason for Visit and Comments: Anxiety [9] Fatigue [46] Shortness of Breath [[id number]] [facility] Progress Noteon 05-20-2024 Progress Note [facility] [address], [address] [place], [place] [id number] Visit type: follow up appointment. Reason for Visit: Danny Pink is a 68 y.o. female with chief complaint of Anxiety, Fatigue, and Shortness of Breath Assessment and Plan Danny was seen today for pain, fatigue, shortness of breath, depression, anxiety and constipation. Diagnoses and all orders for this visit: Cancer related pain/ Neuropathy (Primary)- complicated, a typical neuropathy- noted started after carbo/taxol in 2019. Notes crushing bone pain in bilateral hips into legs and feet. Did not tolerate gabapentin tid or cymbalta. For neuropathy use oxycodone 5-10mg po q 4h prn pain. Reviewed OAARS, eprescribed oxycodone. Recurrent carcinoma of endometrium (HCC)- under care of Dr. Quiñonez, with multiple treatment lines and most recently simple partial vaginectomy. Tooth pain- possible tooth infection, abscess with radiating pain into ear, start on antibiotic and refer to dentist. 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 I assume responsibility for the patient's ongoing medical care of this condition. Follow-up: 4 weeks Subjective Danny Pink is a 68 y.o. 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 Tolerated treatment well. Due for repeat imaging to assess response to treatment. PET ordered. Unfortunately, there appears to be a new isolated vaginal lesion. Had simple partial vaginectomyunder care of Dr. Quiñonez on 10/06/23. Reviewed DAIRY MANUFACTURING TECHNOLOGIST/ONC notes, previously on multiple lines of chemotherapy/immunoth erapy. Pain Associated symptoms include constipation, fatigue and shortness of breath. Fatigue Associated symptoms include fatigue. Anxiety Symptoms include shortness of breath. DepressionPatient presents with the following symptoms: shortness of breath. Shortness of Breath Constipation Danny is seen today in follow up. She continues to not feel well at home. Recent UTI at home, last treated with an antibiotic 3 weeks ago. Notes continues to have increase blood glucose, unable to start new medication for blood sugars due to high cost. Still awaiting pet scan. Notes over last 48 hours severe tooth pain(tooth 26) with movement into right ear. Denies nausea, constipation. Continues to use oxycodone for neuropathy. Pain Assessment (If Pain Scale >0) Description: sharp and crushing Duration: year(s) Frequency:Daily Location: bones, hips into legs Alleviating Factors: pain medication Exacerbating Factors: unable to associate with any factor Effect:Change in Function and Interference with Activities, worst at night Phenix Symptom Assessment Score Phenix Symptom Assessment System Pain Score: 8 Tiredness Score: 8 Nausea Score: 6 Depression Score: 8 Anxiety Score: 9 Drowsiness Score: 9 Appetite Score: 7 Wellbeing Score: 8 Dyspnea Score: 9 Other Problem Score: 8 Assessed by:patient Review of Systems Constitutional: Positive for fatigue. Respiratory: Positive for shortness of breath. Gastrointestinal: Positive for constipation. 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 Constitutional: Appearance: Normal appearance. She is normal weight. Comments: Flat mood HENT: Mouth/Throat: Mouth: Mucous membranes are moist. Eyes: General: No scleral icterus. Extraocular Movements: Extraocular movements intact. Pupils: Pupils are equal, round, and reactive to light. Comments: Pupils 3mm bilaterally Cardiovascular: Rate and Rhythm: Normal rate and regular rhythm. Pulses: Normal pulses. Pulmonary: Effort: Pulmonary effort is normal. No respiratory distress. Breath sounds: Normal breath sounds. No wheezing or rales. Comments: Breathing with mouth open Abdominal: General: Abdomen is flat. There is no distension. Tenderness: There is no abdominal tenderness. Musculoskeletal: General: Normal range of motion. Right lower leg: No edema. Left lower leg: No edema. Skin: General: Skin is warm. Coloration: Skin is pale. Findings: No rash. Neurological: General: No focal deficit present. Mental Status: She is alert and oriented to person, place, and time. Cranial Nerves: No cranial nerve deficit. Sensory: No sensory deficit. P (more content not included)... Normal [facility] Progress Note What is the most important item you want to discuss with your provider today? States she was unable to get her diabetes medication because the copay was $600.00 pain in bones, lower back and legs. Complete med rec line by line. Yes Do you need refills on any medications today? No Pharmacy confirmed in Med management section. Yes Normal [facility] 36on 05-18-2024 36 Reviewed oaars.eprescribed refills as appropriate [facility] 36 Confirmed patient Name and : Yes Medication name(s) and dose(s) requested: Lorazepam (Ativan) 1 MG Tablet Oxycodone (Roxicodone) 5 MG IR Tablet Trazodone (Desyrel) 100 MG Tablet Approximate number of pills available in the home: Ativan- 2 Tablets Left Trazodone- None Left Oxycodone- 8 Tablets Left Confirmed and updated correct pharmacy: Yes Reminded patient of 3 business day refill policy on all medication refill requests: Yes Notified patient to call pharmacy to confirm prescription ready for pickup and to call office if not available within 3 business days: Yes Date of last appointment: 04/08/24 Date of next appointment: 05/20/[address] [facility] Urine Cultureon 05-06-2024 [facility] Mixed Gram Positive Organisms [place] Count 11,000-25,000 [facility] Mixed contaminants. Submit a new specimen if indicated. Normal [facility] Comment on above: Performed By: #### L 501.080 #### [facility] [place], [address] Absolute neutrophil countOrd ered By: Cayetano Gregorio on 05-04-2024 Neutrophils (Bld) [#/Vol] 9.7 10*3/uL High 2.0-7.7 [facility] Albumin to globulin ratioOrd ered By: Cayetano Gregorio on 05-04-2024 Albumin/Globulin [Mass ratio] 1.0 {ratio} 0.9-2.4 [facility] Basophil percentageOrdered B y: Cayetano Gregorio on 05-04-2024 Basophils/100 WBC (Bld) 0.4 % 0-1 [facility] Bilirubin Test strip Ql (U)O rdered By: Cayetano Gregorio on 05-04-2024 Bilirubin Ql (U) Negative Negative [facility] Bilirubin, totalOrdered By: Cayetano Gregorio on 05-04-2024 Bilirubin [Mass/Vol] 0.40 mg/dL 0.20-1.00 [facility] Comment on above: For patients on eltr ombopag therapy, use of Dimension [place] TBIL is not recommended. Blood urea nitrogen (BUN)/cr eatinine ratioOrdered By: Cayetano Gregorio on 05-04-2024 Urea nitrogen/Creatinine [Mass ratio] 13.2 mg/mg 10-20 [facility] CBC W/Diff, Automatedon 04-21 Absolute Lymph 0.57 X10 3/uL Low 0.83-4.51 [facility] Comment on above: Performed By: #### L 509.6001, L503.0106, L506.1001 #### [facility] [address] [place], [address] Absolute Neut 9.7 X10 3/uL High 2.0-7.7 [facility] Comment on above: Performed By: #### L 509.6001, L503.0106, L506.1001 #### [facility] [address] [place], [address] Basophils/100 WBC (Bld) 0.4 % Normal 0-1 [facility] Comment on above: Performed By: #### L 509.6001, L503.0106, L506.1001 #### [facility] [address] [place], [address] Eosinophils/100 WBC (Bld) 0.0 % Normal 0-5 [facility] Comment on above: Performed By: #### L 509.6001, L503.0106, L506.1001 #### [facility] [address] [place], [address] Erythrocyte distribution width (RBC) [Ratio] 13.1 % Normal 11.6-14.6 [facility] Comment on above: Performed By: #### L 509.6001, L503.0106, L506.1001 #### [facility] [address] [place], [address] Hematocrit (Bld) [Volume fraction] 41.2 % Normal 37-47 [facility] Comment on above: Performed By: #### L 509.6001, L503.0106, L506.1001 #### [facility] [address] [place], [address] Hemoglobin (Bld) [Mass/Vol] 14.1 g/dL Normal 12.0-15.0 [facility] Comment on above: Performed By: #### L 509.6001, L503.0106, L506.1001 #### [facility] [address] [place], [address] IG% 1.100 High 0.0-0.9 [facility] Comment on above: Result Comment: IG% - Immature Granulocytes (promyelocytes, myelocytes and metamyelocytes) > 1% indicates that a LEFT SHIFT is Present. Performed By: #### L 509.6001, L503.0106, L506.1001 #### [facility] [address] [place], [address] Lymphocytes/100 WBC (Bld) 5.1 % Low 19-41 [facility] Comment on above: Performed By: #### L 509.6001, L503.0106, L506.1001 #### [facility] [address] [place], [address] MCH (RBC) [Entitic mass] 31.1 pg Normal 27.0-32.0 [facility] Comment on above: Performed By: #### L 509.6001, L503.0106, L506.1001 #### [facility] [address] [place], [address] MCHC (RBC) [Mass/Vol] 34.2 g/dL Normal 32-36 [facility] Comment on above: Performed By: #### L 509.6001, L503.0106, L506.1001 #### [facility] [address] [place], [address] MCV (RBC) [Entitic vol] 90.9 fL Normal 81-99 [facility] Comment on above: Performed By: #### L 509.6001, L503.0106, L506.1001 #### [facility] [address] [place], [address] Monocytes/100 WBC (Bld) 7.1 % Normal 0-10 [facility] Comment on above: Performed By: #### L 509.6001, L503.0106, L506.1001 #### [facility] [address] [place], [address] Neutrophils/100 WBC (Bld) 86.3 % High 47-70 [facility] Comment on above: Performed By: #### L 509.6001, L503.0106, L506.1001 #### [facility] [address] [place], [address] Nucleated RBC (Bld) [#/Vol] 0 10*3/uL Normal 0-5 [facility] Comment on above: Performed By: #### L 509.6001, L503.0106, L506.1001 #### [facility] [address] [place], [address] Platelet mean volume (Bld) [Entitic vol] 8.6 fL Normal 6.2-12.0 [facility] Comment on above: Performed By: #### L 509.6001, L503.0106, L506.1001 #### [facility] [address] [place], [address] Platelets (Bld) [#/Vol] 334 10*3/uL Normal 150-450 [facility] Comment on above: Performed By: #### L 509.6001, L503.0106, L506.1001 #### [facility] [address] [place], [address] RBC (Bld) [#/Vol] 4.53 10*6/uL Normal 4.2-5.4 [facility] Comment on above: Performed By: #### L 509.6001, L503.0106, L506.1001 #### [facility] [address] [place], [address] RDW SD 43.0 fl Normal 35.1-43.9 [facility] Comment on above: Performed By: #### L 509.6001, L503.0106, L506.1001 #### [facility] [address] [place], [address] WBC (Bld) [#/Vol] 11.2 10*3/uL High 4.4-11.0 [facility] Comment on above: Performed By: #### L 509.6001, L503.0106, L506.1001 #### [facility] [address] [place], [address] Carbon dioxide measurementOr dered By: Cayetano Gregorio on 05-04-2024 CO2 [Moles/Vol] 18.0 mmol/L Low 21.0-32.0 [facility] Chloride measurementOrdered By: Cayetano Gregorio on 05-04-2024 Chloride [Moles/Vol] 101 mmol/L 98-107 [facility] Comprehensive Metabolic Prof ilon 05-04-2024 Albumin [Mass/Vol] 3.9 g/dL Normal 3.2-5.0 [facility] Comment on above: Order Comment: Order Date: 09/01/24 Order Info: 0786-1 - CMP Order Info: 10867-5 - CRP Order Info: 3016-3 - TSH Order Info: 2498-4 - FE Order Info: 2276-4 - FLOR Performed By: #### L 509.6001, L503.0106, L506.1001 #### [facility] [address] [place], [address] Albumin/Globulin [Mass ratio] 1.0 {ratio} Normal 0.9-2.4 [facility] Comment on above: Order Comment: Order Date: 09/01/24 Order Info: 785-1 - CMP Order Info: 07289-1 - CRP Order Info: 3 - TSH Order Info: 24911-22 - FE Order Info: 4 - FLOR Performed By: #### L 509.6001, L503.0106, L506.1001 #### [facility] [address] [place], [address] ALK P 96 U/L Normal 45-117 [facility] Comment on above: Order Comment: Order Date: 09/01/24 Order Info: 785-04 - CMP Order Info: 32498-5 - CRP Order Info: 3015-06 - TSH Order Info: 2497-07 - FE Order Info: 2275-07 - FLOR Performed By: #### L 509.6001, L503.0106, L506.1001 #### [facility] [address] [place], [address] ALT [Catalytic activity/Vol] 22 U/L Normal 13-56 [facility] Comment on above: Order Comment: Order Date: 09/01/24 Order Info: 785-1 - CMP Order Info: 77112-6 - CRP Order Info: 3 - TSH Order Info: 24911-22 - FE Order Info: 2275-07 - FLOR Performed By: #### L 509.6001, L503.0106, L506.1001 #### [facility] [address] [place], [address] AST [Catalytic activity/Vol] 14 U/L Low 15-37 [facility] Comment on above: Order Comment: Order Date: 09/01/24 Order Info: 785-1 - CMP Order Info: 81238-6 - CRP Order Info: 3015-06 - TSH Order Info: 24911-22 - FE Order Info: 2275-07 - FLOR Performed By: #### L 509.6001, L503.0106, L506.1001 #### [facility] [address] [place], [address] Bilirubin [Mass/Vol] 0.40 mg/dL Normal 0.20-1.00 [facility] Comment on above: Order Comment: Order Date: 09/01/24 Order Info: 785-1 - CMP Order Info: 65975-2 - CRP Order Info: 3 - TSH Order Info: 2497-07 - FE Order Info: 2275-07 - FLOR Result Comment: For patients on eltrombopag therapy, use of Dimension [place] TBIL is not recommended. Performed By: #### L 509.6001, L503.0106, L506.1001 #### [facility] [address] [place], [address] BUN/CRE 13.2 RATIO Normal 10-20 [facility] Comment on above: Order Comment: Order Date: 09/01/24 Order Info: 785- - CMP Order Info: [id number] - CRP Order Info: 3 - TSH Order Info: 2497-07 - FE Order Info: 2275-07 - FLOR Performed By: #### L 509.6001, L503.0106, L506.1001 #### [facility] [address] [place], [address] CA,Total 9.2 mg/dL Normal 8.5-10.1 [facility] Comment on above: Order Comment: Order Date: 09/01/24 Order Info: 785-1 - CMP Order Info: 66006-1 - CRP Order Info: 3 - TSH Order Info: 2497-07 - FE Order Info: 2275-07 - FLOR Performed By: #### L 509.6001, L503.0106, L506.1001 #### [facility] [address] [place], [address] Chloride [Moles/Vol] 101 mmol/L Normal 98-107 [facility] Comment on above: Order Comment: Order Date: 09/01/24 Order Info: 785-1 - CMP Order Info: 20583-2 - CRP Order Info: 3 - TSH Order Info: 2497-07 - FE Order Info: 2275-07 - FLOR Performed By: #### L 509.6001, L503.0106, L506.1001 #### [facility] [address] [place], [address] CO2 [Moles/Vol] 18.0 mmol/L Low 21.0-32.0 [facility] Comment on above: Order Comment: Order Date: 09/01/24 Order Info: 785-1 - CMP Order Info: 00523-3 - CRP Order Info: 3 - TSH Order Info: 2497-07 - FE Order Info: 2275-07 - FLOR Performed By: #### L 509.6001, L503.0106, L506.1001 #### [facility] [address] [place], [address] Creatinine [Mass/Vol] 1.14 mg/dL High 0.55-1.02 [facility] Comment on above: Order Comment: Order Date: 09/01/24 Order Info: 785-1 - CMP Order Info: [id number] - CRP Order Info: 3 - TSH Order Info: 2497-07 - FE Order Info: 2275-07 - FLOR Result Comment: The validity of the calculated GFR GFRAA in patients over 70 years has not been determined. Clinical correlation is essential. Performed By: #### L 509.6001, L503.0106, L506.1001 #### [facility] [address] [place], [address] ECRCL 58.05 ml/min Normal [facility] Comment on above: Order Comment: Order Date: 09/01/24 Order Info: 785-1 - CMP Order Info: 35171-4 - CRP Order Info: 3 - TSH Order Info: 24911-22 - FE Order Info: 2275-07 - FLOR Performed By: #### L 509.6001, L503.0106, L506.1001 #### [facility] [address] [place], [address] EST GFR - AA 61 mL/min Normal >60 [facility] Comment on above: Order Comment: Order Date: 09/01/24 Order Info: 86-1 - CMP Order Info: 16071-5 - CRP Order Info: 3 - TSH Order Info: 2497-07 Order Info: 2275-07 - FLOR Result Comment: Afri can [place] GFR Calc Performed By: #### L 509.6001, L503.0106, L506.1001 #### [facility] [address] [place], [address] GAP 13 Normal 5-15 [facility] Comment on above: Order Comment: Order Date: 09/01/24 Order Info: 785-1 - CMP Order Info: [id number] - CRP Order Info: 3 - TSH Order Info: 2497-07 Order Info: 2275-07 - FLOR Performed By: #### L 509.6001, L503.0106, L506.1001 #### [facility] [address] [place], [address] GFR/1.73 sq M.predicted among non-blacks MDRD (S/P/Bld) [Vol rate/Area] 50 mL/min/{1.73_m2} Low >60 [facility] Comment on above: Order Comment: Order Date: 09/01/24 Order Info: 785-1 - CMP Order Info: 30968-8 - CRP Order Info: 3 - TSH Order Info: 2497-07 Order Info: 2275-07 - FLOR Result Comment: Non- GFR Calc Performed By: #### L 509.6001, L503.0106, L506.1001 #### [facility] [address] [place], [address] Globulin (S) [Mass/Vol] 4.1 g/dL Normal 2.2-4.2 [facility] Comment on above: Order Comment: Order Date: 09/01/24 Order Info: 07-1 - CMP Order Info: 05917-4 - CRP Order Info: 3015-3 - TSH Order Info: 24911-22 - FE Order Info: 4 - FLOR Performed By: #### L 509.6001, L503.0106, L506.1001 #### [facility] [address] [place], [address] Glucose [Mass/Vol] 259 mg/dL High 74-106 [facility] Comment on above: Order Comment: Order Date: 09/01/24 Order Info: 785-04 - CMP Order Info: 71064-7 - CRP Order Info: 3 - TSH Order Info: 2497-07 - FE Order Info: 2275-07 - FLOR Result Comment: Gluc ose result greater than or equal to 200 mg/dL suggests DIABETES MELLITUS per A.D.A. criteria. Performed By: #### L 509.6001, L503.0106, L506.1001 #### [facility] [address] [place], [address] Potassium [Moles/Vol] 3.7 mmol/L Normal 3.5-5.1 [facility] Comment on above: Order Comment: Order Date: 09/01/24 Order Info: 785-04 - CMP Order Info: 11725-6 - CRP Order Info: 3 - TSH Order Info: 24911-22 - FE Order Info: 2275-07 - FLOR Performed By: #### L 509.6001, L503.0106, L506.1001 #### [facility] [address] [place], [address] Sodium [Moles/Vol] 132 mmol/L Low 136-145 [facility] Comment on above: Order Comment: Order Date: 09/01/24 Order Info: 785- - CMP Order Info: 26663-2 - CRP Order Info: 3013 - TSH Order Info: 2497-07 FE Order Info: 2275-07 - FLOR Performed By: #### L 509.6001, L503.0106, L506.1001 #### [facility] [address] [place], [place], [address] T PROT 8.0 g/dL Normal 6.4-8.2 [facility] Comment on above: Order Comment: Order Date: 09/01/24 Order Info: 0786-1 - CMP Order Info: 47363-5 - CRP Order Info: 3 - TSH Order Info: 2497-07 - FE Order Info: 2275-07 - FLOR Performed By: #### L 509.6001, L503.0106, L506.1001 #### [facility] [address] [facility] [address] [place], [place], [address] Urea nitrogen [Mass/Vol] 15 mg/dL Normal 7-18 [facility] Comment on above: Order Comment: Order Date: 09/01/24 Order Info: 0786-1 - CMP Order Info: 07158-3 - CRP Order Info: 3 - TSH Order Info: 2497-07 - FE Order Info: 2275-07 - FLOR Performed By: #### L 509.6001, L503.0106, L506.1001 #### [facility] [address] [place], [place], [address] Emergency Department Summary on 05-04-2024 Emergency Department Summary [facility] Medical Records Department [address] [place] [id number] Emergency Department Summary 05/04/24 MR#: [id number] Acct: [id number] Name: DANNY PINK Rep #: [id number] : 1955 68 From: Cayetano Gregorio DO PCP: Dr. Donovan Hernandez MD Status:DEP ER Location: ED HPI History of Present Illness Chief Complaint: General Illness Informant: patient Onset/Context/Timing Onset: Days (4) Context: Gradual Onset Timing: Continuous Quality: Shaky Location: Generalized Worsened by: Nothing Relieved by: Pepto-Bismol Narrative Narrative: Patient presents with nausea, vomiting, diarrhea, and shaking that has been getting worse over the last 4 days. Patient states that the shaking started this morning. Patient states she has had nausea vomiting and diarrhea for the past 4 days. Patient states she started taking Pepto-Bismol which helped somewhat. Patient denies any abdominal pain. Patient denies any fevers or chills. Patient does admit to some pain in her right ear and some tinnitus. Patient admits to some urinary frequency but denies any dysuria or hematuria. [facility] Medical History Asthma HTN (hypertension), benign Diabetes s/p radiation Endometrial cancer Postmenopausal bleeding CVA (cerebral vascular accident) Mini stroke Glaucoma Home Medications ???Medication ???Instructions ???Recorded ???Last Taken ???Type aspirin 81 mg chewable tablet 81 mg PO DAILY@0800 ##100 05/06/14 12/18/17 Rx brimonidine 0.2 %-timolol 0.5 % 1 drp RIGHT EYE BID 12/19/17 12/19/17 History eye drops dicyclomine 10 mg capsule 10 mg PO 4X/DAY 09/21/18 Unknown History gabapentin 100 mg capsule 300 mg PO TID PRN Pain 09/21/18 Unknown History metformin 500 mg tablet,extended 500 mg PO BID 12/09/20 Unknown History release 24 hr ondansetron 4 mg disintegrating 4 mg PO Q8H PRN PRN Nausea #14 tabs 12/29/20 Unknown Rx tablet oxycodone 10 mg tablet 5 mg PO Q4H PRN Pain 04/29/23 Unknown History cephalexin 500 mg capsule 500 mg PO Q6 #12 CAPSULES 05/04/24 Unknown Rx gabapentin 300 mg capsule 300 mg PO Q12H 05/04/24 Unknown History lorazepam 1 mg tablet 1 mg PO TID 05/04/24 Unknown History Allergy/AdvReac Type Severity Reaction Status Date / Time morphine Allergy Anaphylaxis Verified 05/04/24 06:45 codeine AdvReac Upset Verified 05/04/24 06:45 Stomach Family History Father Colon cancer Heart disease Hypertension CVA (cerebral vascular accident) Mother Heart disease Hypertension Surgical History Hx of tonsillectomy Hx of hysterectomy delivery delivered Social History adopted: No household members: none number of children: 4 current occupational status: unemployed pets and animals: Yes Smoking Status: Former smoker Tobacco: How many years used: 20 alcohol intake: current alcohol intake frequency: holidays/special occasions only substance use type: does not use what type of physical activity do you participate in: walking seatbelt use: always do you feel safe at home: Yes ROS ROS ED Constitutional Constitutional ED: Denies chills or fever(s) Eyes Eyes: Reports blurry vision; Denies diplopia ENT ENT ED: Reports ear pain right; Denies rhinorrhea or sore throat Cardiovascular Cardiovascular: Denies chest pain or palpitations Respiratory/Chest Respiratory/Chest: Reports dyspnea; Denies cough Gastrointestinal Gastrointestinal: Reports diarrhea, nausea and vomiting; Denies melena Genitourinary Genitourinary ED: Reports urinary frequency; Denies dysuria or hematuria Musculoskeletal Musculoskeletal: Denies back pain or neck pain Integumentary Reports rash; Denies abscess Neurologic Neurologic: Denies headache(s) or weakness Allergic/Immunologic Allergic/Immunologic ED: Denies mouth swelling or urticaria EXAM Physical Exam Const Vital Signs: 05/04/24 06:45 05/04/24 06:48 Temperature 97.5 F L 97.5 F L Temperature Source Oral Oral Pulse Rate 119 H 118 H Respiratory Rate 14 16 Blood Pressure 188/97 H 188/97 H Blood Pressure Mean 127 127 Pulse Ox 97 97 Positive well nourished and well developed General Appearance ED: well developed and NAD HEENT Reports moist mucous membranes Neck supple and no JVD Resp normal respiratory effort and clear to auscultation bilaterally Cardio regular rhythm Rate: tachycardic GI non-tender and non-distended Palpation: soft Extremity General Extremety ED: Negative for edema or tenderness General Extremity: Negative for edema Neuro oriented x3, CN's II-XII intact bilaterally and no sen (more content not included)... Normal [facility] Eosinophil percentageOrdered By: Cayetano Gregorio on 05-04-2024 Eosinophils/100 WBC (Bld) 0.0 % 0-5 [facility] Epithelial cells.squamous LM Ql (Urine sed)Ordered By: Cayetano Gregorio on 05-04-2024 Epithelial cells.squamous LM.HPF (Urine sed) [#/Area] 0 /[HPF] 5-10 [facility] Erythrocyte distribution wid th ratioOrdered By: Cayetano Gregorio on 05-04-2024 Erythrocyte distribution width (RBC) [Ratio] 13.1 % 11.6-14.6 [facility] Erythrocyte distribution wid th standard deviationOrdered By: Cayetano Gregorio on 05-04-2024 Erythrocyte distribution width (RBC) [Entitic vol] 43.0 fL 35.1-43.9 [facility] Estimated glomerular filtrat ion rate (GFR) AmericanOrdered By: Cayetano Gregorio on 05-04-2024 Estimated GFR (MDRD) Amer 61 mL/min >60 [facility] Comment on above: GFR Calc Estimation of creatinine javon aranceOrdered By: Cayetano Gregorio on 05-04-2024 Estimated Creatinine Clearance Calc 58.05 ml/min [facility] Glomerular filtration rate ( GFR) estimationOrdered By: Cayetano Gregorio on 05-04-2024 Estimated GFR (MDRD) Non-Af Amer 50 mL/min Low >60 [facility] Comment on above: Non- GFR Calc Glucose Ql (U)Ordered By: Jama Gregorio on 05-04-2024 Urine Glucose (UA) Normal mg/dl Normal [facility] Glucose measurementOrdered B y: Cayetano Gregorio on 05-04-2024 Glucose [Mass/Vol] 259 mg/dL High 74-106 [facility] Comment on above: Glucose result great er than or equal to 200 mg/dLsuggests DIABETES MELLITUS per A.D.A. criteria. Hematocrit Auto (Bld) [Volum e fraction]Ordered By: Cayetano Gregorio on 05-04-2024 Hematocrit (Bld) [Volume fraction] 41.2 % 37-47 [facility] Hemoglobin measurementOrdere d By: Cayetano Gregorio on 05-04-2024 Hemoglobin (Bld) [Mass/Vol] 14.1 g/dL 12.0-15.0 [facility] Immature granulocytes/100 WB C Auto (Bld)Ordered By: Cayetano Gregorio on 05-04-2024 Immature granulocytes/100 WBC (Bld) 1.100 % High 0.0-0.9 [facility] Comment on above: IG% - Immature Granu locytes (promyelocytes, myelocytes and metamyelocytes) > 1% indicates that a LEFT SHIFT is Present. Ketones Test strip Ql (U)Ord ered By: Cayetano Gregorio on 05-04-2024 Ketones Ql (U) 15 mg/dl High Negative [facility] L501.4020on 05-04-2024 TROPONIN-I HS 3 pg/mL Normal 3.0-54.0 [facility] Comment on above: Order Comment: Order Date: 09/01/24 Order Info: 0786-1 - CMP Order Info: [id number] - CRP Order Info: 3016-3 - TSH Order Info: 2498-4 - FE Order Info: 2276-4 - FLOR Result Comment: Danny disla Note: New Test Units and Gender Specific Reference Ranges. For more information see Policy Stat Procedure [place] High Sensitivity Troponin (TNIH) and attachments. Performed By: #### L 509.6001, L503.0106, L506.1001 #### [facility] [address] [place], [place], [address] Laboratory - Chemistry and C hemistry - challengeOrdered By: Cayetano Gregorio on 05-04-2024 AST [Catalytic activity/Vol] 14 U/L Low 15-37 [facility] Lymphocytes Auto (Unsp spec) [#/Vol]Ordered By: Cayetano Gregorio on 05-04-2024 Lymphocytes (Bld) [#/Vol] 0.57 10*3/uL Low 0.83-4.51 [facility] Lymphocytes/100 WBC Auto (Un sp spec)Ordered By: Cayetano Gregorio on 05-04-2024 Lymphocytes/100 WBC (Bld) 5.1 % Low 19-41 [facility] MCV (mean corpuscular volume ) determinationOrdered By: Cayetano Gregorio on 05-04-2024 MCV (RBC) [Entitic vol] 90.9 fL 81-99 [facility] Mean corpuscular hemoglobin (MCH) determinationOrdered By: Cayetano Gregorio on 05-04-2024 MCH (RBC) [Entitic mass] 31.1 pg 27.0-32.0 [facility] Mean corpuscular hemoglobin concentration (MCHC) determinationOrdered By: Cayetano Gregorio on 05-04-2024 MCHC (RBC) [Mass/Vol] 34.2 g/dL 32-36 [facility] Mean platelet volume determi nationOrdered By: Cayetano Gregorio on 05-04-2024 Platelet mean volume (Bld) [Entitic vol] 8.6 fL 6.2-12.0 [facility] Microscopic analysis of urin e for red blood cells (RBC)Ordered By: Cayetano Gregorio on 05-04-2024 Urine RBC 0-5 SEEN /hpf 0-5 [facility] Monocyte percentageOrdered B y: Cayetano Gregorio on 05-04-2024 Monocytes/100 WBC (Bld) 7.1 % 0-10 [facility] Mucus LM Ql (Urine sed)Order ed By: Cayetano Gregorio on 05-04-2024 Mucus Ql (Urine sed) 1+ /hpf [facility] Neutrophil percentageOrdered By: Cayetano Gregorio on 05-04-2024 Neutrophils/100 WBC (Bld) 86.3 % High 47-70 [facility] Nitrite Test strip Ql (U)Ord ered By: Cayetano Gregorio on 05-04-2024 Nitrite Ql (U) Negative Negative [facility] Nucleated red blood cell per centageOrdered By: Cayetano Gregorio on 05-04-2024 Nucleated RBC/100 WBC (Bld) [Ratio] 0 % 0-5 [facility] Platelet countOrdered By: Jama Gregorio on 05-04-2024 Platelets (Bld) [#/Vol] 334 10*3/uL 150-450 [facility] Potassium measurementOrdered By: Cayetano Gregorio on 05-04-2024 Potassium [Moles/Vol] 3.7 mmol/L 3.5-5.1 [facility] Protein Test strip Ql (U)Ord ered By: Cayetano Gregorio on 05-04-2024 Protein Ql (U) 100 mg/dl High Negative [facility] RBC Auto (Bld) [#/Vol]Ordere d By: Cayetano Gregorio on 05-04-2024 RBC (Bld) [#/Vol] 4.53 10*6/uL 4.2-5.4 [facility] Serum anion gap measurementO rdered By: Cayetano Gregorio on 05-04-2024 Anion gap [Moles/Vol] 13 mmol/L 5-15 [facility] Serum globulin measurementOr dered By: Cayetano Gregorio on 05-04-2024 Globulin (S) [Mass/Vol] 4.1 g/dL 2.2-4.2 [facility] Serum or plasma alanine garner otransferase (ALT) measurementOrdered By: Cayetano Gregorio on 05-04-2024 ALT [Catalytic activity/Vol] 22 U/L 13-56 [facility] Serum or plasma albumin julio urement (mass/volume)Ordered By: Cayetano Gregorio on 05-04-2024 Albumin [Mass/Vol] 3.9 g/dL 3.2-5.0 [facility] Serum or plasma alkaline marcin sphatase measurementOrdered By: Cayetano Gregorio on 05-04-2024 ALP [Catalytic activity/Vol] 96 U/L 45-117 [facility] Serum or plasma calcium julio urement (mass/volume)Ordered By: Cayetano Gregorio on 05-04-2024 Calcium [Mass/Vol] 9.2 mg/dL 8.5-10.1 [facility] Serum or plasma creatinine m easurement (mass/volume)Ordered By: Cayetano Gregorio on 05-04-2024 Creatinine [Mass/Vol] 1.14 mg/dL High 0.55-1.02 [facility] Comment on above: The validity of the calculated GFR & GFRAA in patients over 70 years has not been determined. Clinical correlation is essential. Serum or plasma urea nitroge n measurement (mass/volume)Ordered By: Cayetano Gregorio on 05-04-2024 Urea nitrogen [Mass/Vol] 15 mg/dL 7-18 [facility] Sodium levelOrdered By: Cayetano Gregorio on 05-04-2024 Sodium [Moles/Vol] 132 mmol/L Low 136-145 [facility] Total proteinOrdered By: Rocío Gregorio on 05-04-2024 Protein [Mass/Vol] 8.0 g/dL 6.4-8.2 [facility] Troponin IOrdered By: Cayetano loredo on 05-04-2024 Troponin I High Sensitivity 3 pg/mL 3.0-54.0 [facility] Comment on above: Please Note: New [place] t Units and Gender Specific Reference Ranges. For more information see Policy Stat Procedure [place] High Sensitivity Troponin (TNIH) and attachments. Urinalysis, Completeon 05-04 BACTERIA 1+ /hpf Normal None Seen [facility] Comment on above: Order Comment: Order Date: 09/01/24 Order Info: 0786-1 - CMP Order Info: [id number] - CRP Order Info: 3015-06 - TSH Order Info: 2497-07 - FE Order Info: 2275-07 - FLOR Performed By: #### L 509.6001, L503.0106, L506.1001 #### [facility] [address] [place], [address] EPI,SQUAMOUS 0-5 SEEN Normal 5-10 [facility] Comment on above: Order Comment: Order Date: 09/01/24 Order Info: 07 - CMP Order Info: [id number] - CRP Order Info: 3015-06 - TSH Order Info: 2497-07 - FE Order Info: 2275-07 - FLOR Performed By: #### L 509.6001, L503.0106, L506.1001 #### [facility] [address] [place], [address] Mucus Ql (Urine sed) 1+ /hpf Normal [facility] Comment on above: Order Comment: Order Date: 09/01/24 Order Info: [id number] - CMP Order Info: 45718-7 - CRP Order Info: 3015-06 - TSH Order Info: 2497-07 - FE Order Info: 2275-07 - FLOR Performed By: #### L 509.6001, L503.0106, L506.1001 #### [facility] [address] [place], [address] RBC 0-5 SEEN Normal 0-5 [facility] Comment on above: Order Comment: Order Date: 09/01/24 Order Info: 0786-1 - CMP Order Info: 87777-5 - CRP Order Info: 3 - TSH Order Info: [id number] - FE Order Info: 4 - FLOR Performed By: #### L 509.6001, L503.0106, L506.1001 #### [facility] [address] [place], [place], [address] WBC 50-100 SEEN Normal 0-5 [facility] Comment on above: Order Comment: Order Date: 09/01/24 Order Info: 0786-1 - CMP Order Info: 28380-8 - CRP Order Info: 3015-06 - TSH Order Info: 2497-07 - FE Order Info: 2275-07 - FLOR Performed By: #### L 509.6001, L503.0106, L506.1001 #### [facility] [address] [facility] [place], [place], [id number] Urine blood detectionOrdered By: Cayetano Gregorio on 05-04-2024 Urine Occult Blood 25 /ul High Negative [facility] Urine clarityOrdered By: Rocío Gregorio on 05-04-2024 Clarity (U) Sl. Cloudy Clear [facility] Urine color determinationOrd ered By: Cayetano Gregorio on 05-04-2024 Color (U) Yellow Yellow [facility] Urine cultureOrdered By: Rocío Gregorio on 05-04-2024 Bacteria identified Cx Nom (U) Positive Abnormal [facility] Urine leukocyte esterase det ection by dipstickOrdered By: Cayetano Gregorio on 05-04-2024 Leukocyte esterase Test strip Ql (U) 500 /ul High Negative [facility] Urine pHOrdered By: Cayetano singer on 05-04-2024 pH (U) 5.0 [pH] 5.0 - 8.0 [facility] Urine sediment bacteria coun t by microscopy (number/high power field)Ordered By: Cayetano Gregorio on 05-04-2024 Bacteria LM.HPF (Urine sed) [#/Area] 1 /[HPF] None Seen [facility] Urine specific gravity measu rementOrdered By: Cayetanosmooth Gregorio on 05-04-2024 Specific gravity (U) [Rel density] 1.020 1.002-1.030 [facility] Urobilinogen Ql (U)Ordered B y: Cayetano Darline on 05-04-2024 Urine Urobilinogen Normal mg/dl Normal [facility] White blood cell (WBC) count Ordered By: Cayetano Gregorio on 05-04-2024 WBC (Bld) [#/Vol] 11.2 10*3/uL High 4.4-11.0 [facility] White blood cell countOrdere d By: Cayetano Gregorio on 05-04-2024 Urine WBC 50-100 SEEN /hpf 0-5 [facility] 29on 05-03-2024 29 Addended by: ALKA CASON on: 05/03/2024 02:54 PM Modules accepted: Orders Normal [facility] 36on 05-03-2024 36 Prescription Refill Request Patient Name: Danny Pink PCP: Donovan Hernandez Past Medical History: Past Medical History: Diagnosis Date Anemia LOW IRON DUE TO BLEEDING Asthma Cerebral artery occlusion with cerebral infarction (HCC) Diabetes (HCC) Endometrial adenocarcinoma (CMS/HCC) (HCC) FIGO GRADE 2 GERD (gastroesophageal reflux disease) Glaucoma 2014 Hx of blood clots Hypertension Mini stroke 2014 Thrombotic. Affected short term memory, had to relearn things, locations. Past Surgical History: Past Surgical History: Procedure Laterality Date CATARACT EXTRACTION Left CATARACT EXTRACTION W/ INTRAOCULAR LENS IMPLANT Right 07/09/2021 SECTION (HISTORICAL) x2. Pfannenstiel incisions. COLONOSCOPY DILATION AND CURETTAGE OF UTERUS 12/19/2017 Dr Brittny Gan-Morales [facility] ENDOMETRIAL BIOPSY IR CVC MEDIPORT PLACEMENT OTHER SURGICAL HISTORY 12/09/2019 Robotic Fe-Aortic Biopsy TONSILLECTOMY (HISTORICAL) TOTAL ABDOMINAL HYSTERECTOMY 01/19/2018 Robotic hysterectomy, BSO, right pelvic sentinel LNB, left pelvic lymphadenectomy-Dr. Khang Tapia [facility] TUBAL LIGATION UPPER GASTROINTESTINAL ENDOSCOPY Allergies: Allergies Allergen Reactions Morphine Anaphylaxis and Shortness of breath Codeine Rash and Nausea And Vomiting Other reaction(s): Other (See Comments), Upset Stomach Problem List: does not have any pertinent problems on file. Current Medication List: Current Outpatient Medications on File Prior to Visit Medication Sig Dispense Refill gabapentin (Neurontin) 300 MG capsule TAKE 1 CAPSULE BY MOUTH 2 TIMES A DAY 60 capsule 0 albuterol 108 (90 Base) MCG/ACT inhaler Inhale 90 each if needed. aspirin 81 MG chewable tablet Chew 81 mg daily. bisacodyl (Dulcolax) 5 MG EC tablet Take 10 mg by mouth if needed. brimonidine (AlphaGAN P) 0.2 % ophthalmic solution Administer 1 drop into both eyes Nightly. calcium carbonate (Os-Papito) 1250 (500 Ca) MG chewable tablet Chew 1 tablet if needed. cholecalciferol (Vitamin D-3) 50 MCG (2000 UT) capsule Take 1 capsule (50 mcg) by mouth in the morning. 30 capsule 2 dicyclomine (Bentyl) 10 MG capsule Take 10 mg by mouth if needed. ketorolac (Acular) 0.5 % ophthalmic solution latanoprost (Xalatan) 0.005 % ophthalmic solution Administer 1 drop into both eyes Nightly. LORazepam (Ativan) 1 MG tablet Take 1 tablet (1 mg) by mouth every 8 hours as needed for anxiety for up to 20 days. 60 tablet 0 LORazepam (Ativan) 1 MG tablet Take 1 tablet (1 mg) by mouth every 6 hours as needed for anxiety. 60 tablet 0 metFORMIN XR (Glucophage-XR) 500 MG 24 hr tablet Take 1,000 mg by mouth in the morning and 1,000 mg in the evening. Misc. Devices (Sitz Bath) misc Use for pain relief as needed 1 each 0 Misc. Devices (Collins Bottle/Plastic 120mL) misc Use to clean area as needed 1 each 0 naloxone (Narcan) 4 mg/0.1 mL nasal spray Administer 4 mg into affected nostril(s) if needed. ofloxacin (Ocuflox) 0.3 % ophthalmic solution ondansetron (Zofran) 8 MG tablet Take 8 mg by mouth if needed. pantoprazole (ProtoNix) 40 MG EC tablet Take 40 mg by mouth if needed. prednisoLONE acetate (Pred-Forte) 1 % ophthalmic suspension prochlorperazine (Compazine) 10 MG tablet Take 1 tablet (10 mg) by mouth every 8 hours as needed for nausea or vomiting. 60 tablet 3 sennosides (Senokot) 8.6 MG tablet Take 8.6 mg by mouth in the morning and 8.6 mg in the evening. sucralfate (Carafate) 1 GM/10ML suspension Take 1 g by mouth if needed. traZODone (Desyrel) 100 MG tablet Take 1 tablet (100 mg) by mouth Nightly. 30 tablet 0 Trelegy Ellipta 200-62.5-25 MCG/ACT aerosol powder [DISCONTINUED] LORazepam (Ativan) 1 MG tablet Take 1 tablet (1 mg) by mouth every 6 hours as needed for anxiety. 60 tablet 0 No current facility-administered medications on file prior to visit. Telephone call placed to patient. The identity and location of the patient was confirmed and informed consent for treatment through a remote examination was obtained. The patient's diagnosis was confirmed and necessity for prescribed drug was verified. Drug(s) to be refilled: Requested Prescriptions No prescriptions requested or ordered in this encounter The patient has underlying conditions or contraindications which preclude continuation of the medication at this time: No, Refill provided {Put your decision support here (Optional): [id number]: If the medication(s) being refilled is (are) a controlled substance please verify the following: The person is an active patient of a licensed practitioner who is a colleague of the provider Yes Drugs are being prescribed pursuant to an on-call or cross coverage agreement {Blank single:31239:: Yes, No, N/A OARRS report reviewed: Yes Referrals placed: N/A Follow-Up Care and Testing: No follow-ups on file. [place] [address] Confirmed patient Name and : Yes Medication name(s) and dose(s) requested: Oxycodone (Roxicodone) 5mg IR tablet Approximate number of pills available in the home: 2 tablets left Confirmed and updated correct pharmacy: Yes Reminded patient of 3 business day refill policy on all medication refill requests: Yes Notified patient to call pharmacy to confirm prescription ready for pickup and to call office if not available within 3 business days: Yes Date of last appointment: 04/08/24 Date of next appointment: 05/20/[address] [facility] 36on 04-28-2024 36 Reviewed oaars, eprescribed refill. [place] [address] Confirmed patient Name and : Yes Medication name(s) and dose(s) requested: Lorazepam (Ativan) 1 MG Tablet Approximate number of pills available in the home: 1 Tablet Left Confirmed and updated correct pharmacy: Yes Reminded patient of 3 business day refill policy on all medication refill requests: Yes Notified patient to call pharmacy to confirm prescription ready for pickup and to call office if not available within 3 business days: Yes Date of last appointment: 04/08/24 Date of next appointment: 05/20/[address] [facility] 37on 04-08-[address] Andrade's office at [phone] to schedule follow up re: UTI and blood sugars Please contact Central Scheduling at [phone] Friday- Friday 730a to 6p and Saturdays 9a to 1p. [facility] Office Visiton 04-08-2024 Follow-up visit [id number] Ozzy Pinkjosh Bobo 1955 F Date Provider Department Center 04/08/2024 [id number] CASON [facility] None Family History Problem Relation Age of Onset Breast cancer Mother 90 Ovarian cancer Neg Hx Colon cancer Neg Hx Uterine cancer Neg Hx Family Status - Relation Status Age at Paternal Grandfather Paternal Grandmother Maternal Grandmother Maternal Grandfather Father Mother Alive Neg Hx Level of Service:67547 [place] OFFICE/OUTPATIENT ESTABLISHED MOD MDM 30 MIN Reason for Visit and Comments: Pain [136] - States her bones hurt. Lower back and leg pain. Fatigue [46] Depression [32] Anxiety [9] Shortness of Breath [322432] Normal [facility] Progress Noteon 04-08-2024 Progress Note What is the most important item you want to discuss with your provider today? Was in ED last week for UTI. Complete med rec line by line. Yes Do you need refills on any medications today? Yes, names of medication needed: trazodone, lorazepam, oxycodone Pharmacy confirmed in Med management section. Yes [facility] Progress Note [facility] [address], [address] [place], [place] [id number] Visit type: follow up appointment. Reason for Visit: Danny Pink is a 68 y.o. female with chief complaint of Pain (States her bones hurt. Lower back and leg pain. ), Fatigue, Depression, Anxiety, and Shortness of Breath Assessment and Plan Danny was seen today for pain, fatigue, shortness of breath, depression, anxiety and constipation. 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 Notes crushing bone pain in bilateral hips into legs and feet. Did not tolerate gabapentin tid or cymbalta. For neuropathy use oxycodone 5-10mg po q 4h prn pain. Reviewed OAARS, eprescribed oxycodone. Recurrent carcinoma of endometrium (HCC)- under care of Dr. Quiñonez, with multiple treatment lines and most recently simple partial vaginectomy. Current episode of depression- scontinue of effexor. 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 I assume responsibility for the patient's ongoing medical care of this condition. Follow-up: 4 weeks Subjective Danny Pink is a 68 y.o. 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 Tolerated treatment well. Due for repeat imaging to assess response to treatment. PET ordered. Unfortunately, there appears to be a new isolated vaginal lesion. Had simple partial vaginectomyunder care of Dr. Quiñonez on 10/06/23. Reviewed DAIRY MANUFACTURING TECHNOLOGIST/ONC notes, previously on multiple lines of chemotherapy/immunoth erapy. Pain Associated symptoms include constipation, fatigue and shortness of breath. Fatigue Associated symptoms include fatigue. Anxiety Symptoms include shortness of breath. DepressionPatient presents with the following symptoms: shortness of breath. Shortness of Breath Constipation Danny is seen today in follow up. She notes that she has not been feeling well for the last few weeks. Reports ongoing fatigue. She reports that she was not able to tolerate cymbalta. Notes that she tried gabapentin but had balance changes. For pain continues to use oxycodone 5-10mg po q 4h prn pain. Uses about 8 tabs a day. Notes no constipation or nausea. Awaiting pet scan still- due to hyperglycemia. She also states she has trouble sleep/resting- sleeps all day,. Up all night. Pain Assessment (If Pain Scale >0) Description: sharp and crushing Duration: year(s) Frequency:Daily Location: bones, hips into legs Alleviating Factors: pain medication Exacerbating Factors: unable to associate with any factor Effect:Change in Function and Interference with Activities, worst at night Phenix Symptom Assessment Score Phenix Symptom Assessment System Pain Score: 8 Tiredness Score: 9 Nausea Score: 6 Depression Score: 9 Anxiety Score: 9 Drowsiness Score: 9 Appetite Score: 3 Wellbeing Score: 8 Dyspnea Score: 8 Other Problem Score: 5 Assessed by:patient Review of Systems Constitutional: Positive for fatigue. Respiratory: Positive for shortness of breath. Gastrointestinal: Positive for constipation. 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 Constitutional: Appearance: Normal appearance. She is normal weight. Comments: Flat mood HENT: Mouth/Throat: Mouth: Mucous membranes are moist. Eyes: General: No scleral icterus. Extraocular Movements: Extraocular movements intact. Pupils: Pupils are equal, round, and reactive to light. Comments: Pupils 3mm bilaterally Cardiovascular: Rate and Rhythm: Normal rate and regular rhythm. Pulses: Normal pulses. Pulmonary: Effort: Pulmonary effort is normal. No respiratory distress. Breath sounds: Normal breath sounds. No wheezing or rales. Comments: Breathing with mouth open Abdominal: General: Abdomen is flat. There is no distension. Tenderness: There is no abdominal tenderness. Musculoskeletal: General: Normal range of motion. Right lower leg: No edema. Left lower leg: No edema. Skin: General: Skin is warm. Coloration: Skin is pale. Findings: No rash. Neurological: General: No focal deficit present. Mental Status: She is (more content not included)... Normal [facility] 36on 03-29-2024 36 Prescription Refill Request Patient Name: Danny Pink PCP: Donovan Hernandez Past Medical History: Past Medical History: Diagnosis Date Anemia LOW IRON DUE TO BLEEDING Asthma Cerebral artery occlusion with cerebral infarction (HCC) Diabetes (HCC) Endometrial adenocarcinoma (CMS/HCC) (HCC) FIGO GRADE 2 GERD (gastroesophageal reflux disease) Glaucoma 2014 Hx of blood clots Hypertension Mini stroke 2014 Thrombotic. Affected short term memory, had to relearn things, locations. Past Surgical History: Past Surgical History: Procedure Laterality Date CATARACT EXTRACTION Left CATARACT EXTRACTION W/ INTRAOCULAR LENS IMPLANT Right 07/09/2021 SECTION (HISTORICAL) x2. Pfannenstiel incisions. COLONOSCOPY DILATION AND [facility] MEDIPORT PLACEMENT OTHER SURGICAL HISTORY 12/09/2019 Robotic Fe-Aortic Biopsy TONSILLECTOMY (HISTORICAL) TOTAL ABDOMINAL HYSTERECTOMY 01/19/2018 Robotic hysterectomy, BSO, right pelvic sentinel LNB, left pelvic lymphadenectomy-Dr. Khang Tapia [facility] TUBAL LIGATION UPPER GASTROINTESTINAL ENDOSCOPY Allergies: Allergies Allergen Reactions Morphine Anaphylaxis and Shortness of breath Codeine Rash and Nausea And Vomiting Other reaction(s): Other (See Comments), Upset Stomach Problem List: does not have any pertinent problems on file. Current Medication List: Current Outpatient Medications on File Prior to Visit Medication Sig Dispense Refill albuterol 108 (90 Base) MCG/ACT inhaler Inhale 90 each if needed. aspirin 81 MG chewable tablet Chew 81 mg daily. bisacodyl (Dulcolax) 5 MG EC tablet Take 10 mg by mouth if needed. brimonidine (AlphaGAN P) 0.2 % ophthalmic solution Administer 1 drop into both eyes Nightly. calcium carbonate (Os-Papito) 1250 (500 Ca) MG chewable tablet Chew 1 tablet if needed. cholecalciferol (Vitamin D-3) 50 MCG (2000 UT) capsule Take 1 capsule (50 mcg) by mouth in the morning. 30 capsule 2 dicyclomine (Bentyl) 10 MG capsule Take 10 mg by mouth if needed. gabapentin (Neurontin) 300 MG capsule Take 1 capsule (300 mg) by mouth 2 times daily. 60 capsule 0 ketorolac (Acular) 0.5 % ophthalmic solution latanoprost (Xalatan) 0.005 % ophthalmic solution Administer 1 drop into both eyes Nightly. LORazepam (Ativan) 1 MG tablet Take 1 tablet (1 mg) by mouth every 8 hours as needed for anxiety for up to 20 days. Do not start before December 15, 2023. 60 tablet 0 LORazepam (Ativan) 1 MG tablet Take 1 tablet (1 mg) by mouth every 6 hours as needed for anxiety. 60 tablet 0 metFORMIN XR (Glucophage-XR) 500 MG 24 hr tablet Take 1,000 mg by mouth in the morning and 1,000 mg in the evening. Misc. Devices (Sitz Bath) misc Use for pain relief as needed 1 each 0 Misc. Devices (Collins Bottle/Plastic 120mL) misc Use to clean area as needed 1 each 0 naloxone (Narcan) 4 mg/0.1 mL nasal spray Administer 4 mg into affected nostril(s) if needed. ofloxacin (Ocuflox) 0.3 % ophthalmic solution ondansetron (Zofran) 8 MG tablet Take 8 mg by mouth if needed. oxyCODONE (Roxicodone) 5 MG immediate release tablet Take 5 mg by mouth. pantoprazole (ProtoNix) 40 MG EC tablet Take 40 mg by mouth if needed. prednisoLONE acetate (Pred-Forte) 1 % ophthalmic suspension prochlorperazine (Compazine) 10 MG tablet Take 1 tablet (10 mg) by mouth every 8 hours as needed for nausea or vomiting. 60 tablet 3 sennosides (Senokot) 8.6 MG tablet Take 8.6 mg by mouth in the morning and 8.6 mg in the evening. sucralfate (Carafate) 1 GM/10ML suspension Take 1 g by mouth if needed. traZODone (Desyrel) 100 MG tablet Take 1 tablet (100 mg) by mouth Nightly. 30 tablet 0 Trelegy Ellipta 200-62.5-25 MCG/ACT aerosol powder venlafaxine XR (Effexor XR) 37.5 MG 24 hr capsule Take 1 capsule (37.5 mg) by mouth daily. Do not crush or chew. 30 capsule 1 No current facility-administered medications on file prior to visit. Telephone call placed to patient. The identity and location of the patient was confirmed and informed consent for treatment through a remote examination was obtained. The patient's diagnosis was confirmed and necessity for prescribed drug was verified. Drug(s) to be refilled: Requested Prescriptions Pending Prescriptions Disp Refills LORazepam (Ativan) 1 MG tablet 60 tablet 0 Sig: Take 1 tablet (1 mg) by mouth every 6 hours as needed for anxiety. oxyCODONE (Roxicodone) 5 MG immediate release tablet 15 tablet Sig: Take 1 tablet (5 mg) by mouth. The patient has underlying conditions or contraindications which preclude continuation of the medication at this time: No, Refill provided {Put your decision support here (Optional): [id number]: If the medication(s) being refilled is (are) a controlled substance please verify the following: The person is an active patient of a licensed practitioner who is a colleague of the provider Yes Drug (more content not included)... [facility] 36 Confirmed patient Name and : Yes Medication name(s) and dose(s) requested: Lorazepam (Ativan) 1 MG Tablet Oxycodone (Roxicodone) 5 MG IR Tablet Approximate number of pills available in the home: Ativan- None Left Oxycodone- 3 Tablets Left Confirmed and updated correct pharmacy: Yes Reminded patient of 3 business day refill policy on all medication refill requests: Yes Notified patient to call pharmacy to confirm prescription ready for pickup and to call office if not available within 3 business days: Yes Date of last appointment: 03/11/24 Date of next appointment: 04/08/[address] [facility] Culture, Blood (WB)on 2023 CUB Blood cultures x2 from two different sites No growth in 5 days. Normal [facility] Comment on above: Performed By: #### L 501.080 #### [facility] [address] [place], [address] Urine Cultureon 03-23-2024 [facility] CLEAN CATCH Culture exhibits no growth. Normal [facility] Comment on above: Performed By: #### L 501.080 #### [facility] [address] [place], [address] 12 Lead EKGon 03-22-2024 12 Lead EKG [facility] Cardiovascular Services [address] [place] [address] 12 Lead EKG 03/22/24 1524 MR#: [id number] Acct: [id number] Name: DANNY PINK Rep #: [id number] : 1955 68 From: Augusto Vargas MD Attending Dr: Status: DEP ER Ordering Dr: Praful Zambrano MD Date: 03/22/24 Location: ED Sex: F C Admitted: Test Reason : Blood Pressure : */* mmHG Vent. Rate : 100 BPM Atrial Rate : 100 BPM P-R Int : 160 ms QRS Dur : 88 ms QT Int : 362 ms P-R-T Axes : 45 30 39 degrees QTcB Int : 466 ms Normal sinus rhythm Nonspecific ST and T wave abnormality Abnormal ECG Confirmed by Augusto Vargas ([id number]), editor producer EMILEE ORTIZ ([id number]) on 03/24/2024 5:56:27 AM Referred By: Confirmed By: Augusto Vargas 03/24/24 0556 Date Augusto Vargas MD CC: Dr. Praful Zambrano MD; Dr. Donovan Hernandez MD Signed Normal [facility] Absolute neutrophil countOrd ered By: Praful Zambrano on 03-22-2024 Neutrophils (Bld) [#/Vol] 6.6 10*3/uL 2.0-7.7 [facility] Albumin to globulin ratioOrd ered By: Praful Zambrano on 03-22-2024 Albumin/Globulin [Mass ratio] 1.0 {ratio} 0.9-2.4 [facility] Basophil percentageOrdered B y: Praful Zambrano on 03-22-2024 Basophils/100 WBC (Bld) 0.5 % 0-1 W [facility] Bedside Glucoseon 03-22-2024 FINGERSTICK GLU 213 mg/dL High 74-106 [facility] Comment on above: Result Comment: LILA GODINEZ OF PATIENT CARE PER NURSING PROTOCOL Performed By: #### L 501.080 #### [facility] [address] [place], [address] Bilirubin Test strip Ql (U)O rdered By: Praful Zambrano on 03-22-2024 Bilirubin Ql (U) 1 mg/dL High Negative [facility] Comment on above: COLOR OF URINE MAY A FFECT DIPSTICK RESULTS. Bilirubin, totalOrdered By: Praful Zambrano on 03-22-2024 Bilirubin [Mass/Vol] 0.20 mg/dL 0.20-1.00 [facility] Comment on above: For patients on eltr ombopag therapy, use of Dimension [place] TBIL is not recommended. Blood cultureOrdered By: Barry Zambrano on 03-22-2024 Bacteria identified Cx Nom (Bld) No growth in 5 days. [facility] Blood urea nitrogen (BUN)/cr eatinine ratioOrdered By: Praful Zambrano on 03-22-2024 Urea nitrogen/Creatinine [Mass ratio] 17.9 mg/mg 02-07 [facility] Brain/Head W/WO Contraston 1 05-23-2023 Brain/Head W/WO Contrast [facility] Imaging Services [facility] [place], [place] [address] Brain/Head W/WO Contrast MR#: [id number] Acct: [id number] Name: DANNY PINK Rep #: [id number] : 1955 F 68 From: Ja Slater MD PCP: Dr. Donovan Hernandez MD Status: [facility] Study: Brain/Head W/WO Contrast Date of Exam: 4 Exam# [id number] Ordering Dr: Praful Zambrano MD [id number] EXAM: CT HEAD WITHOUT AND WITH INTRAVENOUS CONTRAST CLINICAL INDICATION: confused, dysequilibrium, hx endometrial ca TECHNIQUE: Multiple axial images were obtained of the head without and with intravenous contrast. This CT exam was performed using one or more of the following dose reduction techniques: automated exposure control, adjustment of the mA and/or kV according to patient size, and/or use of iterative reconstruction technique. CONTRAST: IV 50mL Isovue-370 COMPARISON: MRI brain 05/06/2014 FINDINGS: BRAIN AND EXTRA-AXIAL SPACES: No intra- or extra-axial hemorrhage. No evidence of acute infarct. No intracranial mass or mass effect. There is preservation of the rowe/white matter interface. Posterior fossa structures are unremarkable. Ventricles are appropriate for age. No hydrocephalus. Basal cisterns are patent. No abnormal contrast enhancement. BONES/JOINTS: Normal calvarium. SINUSES: No acute sinusitis. MASTOID AIR CELLS: Normal. Clear. CT/Brain/Head W/WO Contrast IMPRESSION: No acute intracranial abnormality. Electronically Signed: Ja Slater MD at 16:43 EST , CC: Dr. Praful Zambrano MD; Dr. Donovan Hernandez MD Hand Violin Maker: Signed Normal [facility] CBC W/Diff, Automatedon 12-0 Anisocytosis Ql (Bld) 1+ Normal [facility] Comment on above: Performed By: #### L 501.080 #### [facility] [address] [place], [address] MACROCYTOSIS 1+ Normal [facility] Comment on above: Performed By: #### L 501.080 #### [facility] [address] [place], [address] PLT EST ADEQUATE Normal ADEQ [facility] Comment on above: Performed By: #### L 501.080 #### [facility] [address] [place], [address] RED CELL MORPH N CHROM Normal NORM C C [facility] Comment on above: Performed By: #### L 501.080 #### [facility] [address] [place], [address] SMEAR COMMENT SEE COMMENT Normal [facility] Comment on above: Result Comment: LYMP HOPENIA NOTED Performed By: #### L 501.080 #### [facility] [address] [place], [address] Carbon dioxide measurementOr dered By: Praful Zambrano on 03-22-2024 CO2 [Moles/Vol] 24.0 mmol/L 21.0-32.0 [facility] Chest PA and Lateralon 03-22 Chest PA and Lateral [facility] Imaging [place] [address] Chest PA and Lateral MR#: [id number] Acct: [id number] Name: DANNY PINK Rep #: [id number] : 1955 F 68 From: Tony Hi MD PCP: Dr. Donovan Hernandez MD Status: REG ER Study: Chest PA and Lateral Date of Exam: 03/22/24 Exam# [id number] Ordering Dr: Praful Zambrano MD [id number] STUDY: X-RAY CHEST REASON FOR EXAM: Female, 68 years old. weakness TECHNIQUE: PA and lateral COMPARISON: January 26, 2019 FINDINGS: The lungs are clear and expanded. There is no demonstrated pleural abnormality. Normal size heart. Normal mediastinum and myriam. Normal visualized pulmonary arteries. Mildly calcified aortic arch and descending thoracic aorta. Mediport catheter noted on the right with tip at the atrial caval junction Dorsal spine demonstrates mild scoliosis or splinting and degenerative changes. Normal visualized ribs, clavicles, and shoulders. There is no demonstrated abnormality of the visualized soft tissue structures of the upper abdomen. RAD/Chest PA and Lateral IMPRESSION: No acute cardiopulmonary pathology. Electronically Signed: Tony Hi MD at 17:27 EST , CC: Dr. Praful Zambrano MD; Dr. Donovan Hernandez MD Hand Violin Maker: Signed Normal [facility] Chloride measurementOrdered By: Praful Zambrano on 03-22-2024 Chloride [Moles/Vol] 105 mmol/L 98-107 [facility] Comprehensive Metabolic Prof ilon 03-22-2024 Albumin [Mass/Vol] 3.6 g/dL Normal 3.2-5.0 [facility] Comment on above: Order Comment: 'TROP ' Serial specimen #1, #2 or #3: 1 Performed By: #### L 501.080 #### [facility] [address] [place], [address] Albumin/Globulin [Mass ratio] 1.0 {ratio} Normal 0.9-2.4 [facility] Comment on above: Order Comment: 'TROP ' Serial specimen #1, #2 or #3: 1 Performed By: #### L 501.080 #### [facility] [address] [place], [address] ALK P 95 U/L Normal 45-117 [facility] Comment on above: Order Comment: 'TROP ' Serial specimen #1, #2 or #3: 1 Performed By: #### L 501.080 #### [facility] [address] [place], [address] ALT [Catalytic activity/Vol] 29 U/L Normal 13-56 [facility] Comment on above: Order Comment: 'TROP ' Serial specimen #1, #2 or #3: 1 Performed By: #### L 501.080 #### [facility] [address] [place], [address] AST [Catalytic activity/Vol] 27 U/L Normal 15-37 [facility] Comment on above: Order Comment: 'TROP ' Serial specimen #1, #2 or #3: 1 Result Comment: Slig ht Hemolysis, Result may be falsely increased. Performed By: #### L 501.080 #### [facility] [address] [place], [address] Bilirubin [Mass/Vol] 0.20 mg/dL Normal 0.20-1.00 [facility] Comment on above: Order Comment: 'TROP ' Serial specimen #1, #2 or #3: 1 Result Comment: For patients on eltrombopag therapy, use of Dimension [place] TBIL is not recommended. Performed By: #### L 501.080 #### [facility] [address] [place], [address] BUN/CRE 17.9 RATIO Normal 10-20 [facility] Comment on above: Order Comment: 'TROP ' Serial specimen #1, #2 or #3: 1 Performed By: #### L 501.080 #### [facility] [address] [place], [address] CA,Total 9.6 mg/dL Normal 8.5-10.1 [facility] Comment on above: Order Comment: 'TROP ' Serial specimen #1, #2 or #3: 1 Performed By: #### L 501.080 #### [facility] [address] [place], [address] Chloride [Moles/Vol] 105 mmol/L Normal 98-107 [facility] Comment on above: Order Comment: 'TROP ' Serial specimen #1, #2 or #3: 1 Performed By: #### L 501.080 #### [facility] [address] [place], [address] CO2 [Moles/Vol] 24.0 mmol/L Normal 21.0-32.0 [facility] Comment on above: Order Comment: 'TROP ' Serial specimen #1, #2 or #3: 1 Performed By: #### L 501.080 #### [facility] [address] [place], [address] Creatinine [Mass/Vol] 1.12 mg/dL High 0.55-1.02 [facility] Comment on above: Order Comment: 'TROP ' Serial specimen #1, #2 or #3: 1 Result Comment: The validity of the calculated GFR GFRAA in patients over 70 years has not been determined. Clinical correlation is essential. Performed By: #### L 501.080 #### [facility] [address] [place], [address] ECRCL 59.97 ml/min Normal [facility] Comment on above: Order Comment: 'TROP ' Serial specimen #1, #2 or #3: 1 Performed By: #### L 501.080 #### [facility] [address] [place], [address] EST GFR - AA 62 mL/min Normal >60 [facility] Comment on above: Order Comment: 'TROP ' Serial specimen #1, #2 or #3: 1 Result Comment: Afri can Cypriot GFR Calc Performed By: #### L 501.080 #### [facility] [address] [place], [address] GAP 9 Normal 5-15 [facility] Comment on above: Order Comment: 'TROP ' Serial specimen #1, #2 or #3: 1 Performed By: #### L 501.080 #### [facility] [address] [place], [address] GFR/1.73 sq M.predicted among non-blacks MDRD (S/P/Bld) [Vol rate/Area] 51 mL/min/{1.73_m2} Low >60 [facility] Comment on above: Order Comment: 'TROP ' Serial specimen #1, #2 or #3: 1 Result Comment: Non- GFR Calc Performed By: #### L 501.080 #### [facility] [address] [place], [address] Globulin (S) [Mass/Vol] 3.6 g/dL Normal 2.2-4.2 [facility] Comment on above: Order Comment: 'TROP ' Serial specimen #1, #2 or #3: 1 Performed By: #### L 501.080 #### [facility] [address] [place], [address] Glucose [Mass/Vol] 136 mg/dL High 74-106 [facility] Comment on above: Order Comment: 'TROP ' Serial specimen #1, #2 or #3: 1 Result Comment: Fast ing Glucose result greater than or equal to 126 mg/dL suggests DIABETES MELLITUS per A.D.A. criteria. Performed By: #### L 501.080 #### [facility] [address] [place], [address] Potassium [Moles/Vol] 4.1 mmol/L Normal 3.5-5.1 [facility] Comment on above: Order Comment: 'TROP ' Serial specimen #1, #2 or #3: 1 Result Comment: Slig ht Hemolysis, Result may be falsely increased. Performed By: #### L 501.080 #### [facility] [address] [place], [address] Sodium [Moles/Vol] 138 mmol/L Normal 136-145 [facility] Comment on above: Order Comment: 'TROP ' Serial specimen #1, #2 or #3: 1 Performed By: #### L 501.080 #### [facility] [address] [place], [address] T PROT 7.2 g/dL Normal 6.4-8.2 [facility] Comment on above: Order Comment: 'TROP ' Serial specimen #1, #2 or #3: 1 Performed By: #### L 501.080 #### [facility] [address] [place], [address] Urea nitrogen [Mass/Vol] 20 mg/dL High 7-18 [facility] Comment on above: Order Comment: 'TROP ' Serial specimen #1, #2 or #3: 1 Performed By: #### L 501.080 #### [facility] [address] [place], [address] Emergency Department Summary on 03-22-2024 Emergency Department Summary [facility] Medical Records Department [address] [place] [address] Emergency Department Summary 03/22/24 MR#: [id number] Acct: [id number] Name: DANNY PINK Rep #: [id number] : 1955 68 From: Praful Zambrano MD PCP: Dr. Donovan Hernandez MD Status:REG ER Location: ED HPI History of Present Illness Chief Complaint: Weakness Informant: patient and friend Narrative Narrative: 58-year-old female has had about a week of generalized fatigue and weakness, disequilibrium and ataxia with walking without noe feeling of dizziness, just occasional lightheadedness/ortho static symptoms, and today her friend picked her up to run some errands and she was acting disoriented, speaking slowly but not frankly confused although that is the word she used. Patient states she has been feeling somewhat confused but cannot give me details. She is a very poor historian basically states she does not feel well. She and friend state that she has a history of endometrial cancer. She was treated with chemo and radiation but has not had any of that for over a year, they are not sure how long it has been. However she did have another spot that she had surgery for this year but has had no chemo or radiation. Follows with oncology Dr. Brooks who is an oncologist at [facility]. She states she gets regular PET scans. This is all the details that she can give with regards to the current status of her cancer, when asked if she is in remission she states she does not know. She also states that she is wondering if this is related to her blood sugars. However she has not been checking them except for once earlier today or yesterday it was in the 240s, today she is 218 here in triage. [facility] Medical History Asthma HTN (hypertension), benign Diabetes s/p radiation Endometrial cancer Postmenopausal bleeding CVA (cerebral vascular accident) Mini stroke Glaucoma Home Medications ???Medication ???Instructions ???Recorded ???Last Taken ???Type aspirin 81 mg chewable tablet 81 mg PO DAILY@0800 ##100 05/06/14 12/18/17 Rx brimonidine 0.2 %-timolol 0.5 % 1 drp RIGHT EYE BID 12/19/17 12/19/17 History eye drops dicyclomine 10 mg capsule 10 mg PO .FOUR TIMES DAILY 09/21/18 Unknown History gabapentin 100 mg capsule 300 mg PO TID PRN Pain 09/21/18 Unknown History pantoprazole 40 mg tablet,delayed 40 mg PO DAILY #30 tabs 09/21/18 Unknown Rx release dicyclomine 10 mg capsule 20 mg (2 x 10 mg) PO .q4-6h PRN 12/09/20 Unknown Rx abdominal discomfort #20 CAPSULES metformin 500 mg tablet,extended 500 mg PO BID 12/09/20 Unknown History release 24 hr ondansetron 4 mg disintegrating 4 mg PO Q8H PRN PRN Nausea #14 tabs 12/29/20 Unknown Rx tablet oxycodone 10 mg tablet 5 mg PO Q4H PRN Pain 04/29/23 Unknown History sulfamethoxazole 800 1 tab PO BID #14 TABLETS 03/22/24 Unknown Rx mg-trimethoprim 160 mg tablet Allergy/AdvReac Type Severity Reaction Status Date / Time morphine Allergy Anaphylaxis Verified 03/22/24 12:49 codeine AdvReac Upset Verified 03/22/24 12:49 Stomach Family History Father Colon cancer Heart disease Hypertension CVA (cerebral vascular accident) Mother Heart disease Hypertension Surgical History delivery delivered Hx of hysterectomy Hx of tonsillectomy Social History adopted: No household members: none number of children: 4 current occupational status: unemployed pets and animals: Yes Smoking Status: Former smoker Tobacco: How many years used: 20 alcohol intake: current alcohol intake frequency: holidays/special occasions only substance use type: does not use what type of physical activity do you participate in: walking seatbelt use: always do you feel safe at home: Yes ROS ROS ED Constitutional Constitutional ED: Denies chills or fever(s) Eyes Eyes: Reports blurry vision bilateral (Couple weeks. No visual loss.) and change in vision; Denies diplopia ENT ENT ED: Denies rhinorrhea, sore throat, tinnitus or vertigo Cardiovascular Cardiovascular: Reports lightheadedness; Denies chest pain, palpitations or syncope Respiratory/Chest Respiratory/Chest: Denies cough or dyspnea Gastrointestinal Gastrointestinal: Denies abdominal pain, diarrhea, nausea or vomiting Genitourinary Genitourinary ED: Reports urinary frequency; Denies dysuria or hematuria Musculoskeletal Musculoskeletal: Denies back pain or neck pain Integumentary Denies abscess or rash Neurologic Neurologic: Reports as per HPI, abnormal gait, confusion, lack of coordination and other Details: I feel wobbly for about a week or so with (more content not included)... Normal [facility] Eosinophil percentageOrdered By: Praful Zambrano on 03-22-2024 Eosinophils/100 WBC (Bld) 1.3 % 0-5 [facility] Epithelial cells.squamous LM Ql (Urine sed)Ordered By: Praful Zambrano on 03-22-2024 Epithelial cells.squamous LM.HPF (Urine sed) [#/Area] 0 /[HPF] 5-10 [facility] Erythrocyte distribution wid th ratioOrdered By: Praful Zambrano on 03-22-2024 Erythrocyte distribution width (RBC) [Ratio] 13.6 % 11.6-14.6 [facility] Erythrocyte distribution wid th standard deviationOrdered By: Praful Zambrano on 03-22-2024 Erythrocyte distribution width (RBC) [Entitic vol] 46.1 fL High 35.1-43.9 [facility] Estimated glomerular filtrat ion rate (GFR) AmericanOrdered By: Praful Zambrano on 03-22-2024 Estimated GFR (MDRD) Amer 62 mL/min >60 [facility] Comment on above: GFR Calc Estimation of creatinine javon aranceOrdered By: Praful Zambrano on 03-22-2024 Estimated Creatinine Clearance Calc 59.97 ml/min [facility] Glomerular filtration rate ( GFR) estimationOrdered By: Praful Zambrano on 03-22-2024 Estimated GFR (MDRD) Non-Af Amer 51 mL/min Low >60 [facility] Comment on above: Non- GFR Calc Glucose Ql (U)Ordered By: Carlton Zambrano on 03-22-2024 Urine Glucose (UA) Normal mg/dl Normal [facility] Glucose measurementOrdered B y: Praful Zambrano on 03-22-2024 Glucose [Mass/Vol] 136 mg/dL High 74-106 [facility] Comment on above: Fasting Glucose resu lt greater than or equal to 126 mg/dL suggests DIABETES MELLITUS per A.D.A. criteria. [facility] By: [facility] PROVIDER on 03-22-2024 Bedside Glucose (Misc Panel) 213 mg/dL High 74-106 [facility] Comment on above: MANAGEMENT OF PATIEN T CARE PER NURSING PROTOCOL Hematocrit Auto (Bld) [Volum e fraction]Ordered By: Praful Zambrano on 03-22-2024 Hematocrit (Bld) [Volume fraction] 39.0 % 37-47 [facility] Hemoglobin measurementOrdere d By: Praful Zambrano on 03-22-2024 Hemoglobin (Bld) [Mass/Vol] 12.9 g/dL 12.0-15.0 [facility] Immature granulocytes/100 WB C Auto (Bld)Ordered By: Praful Zambrano on 03-22-2024 Immature granulocytes/100 WBC (Bld) 1.200 % High 0.0-0.9 [facility] Comment on above: IG% - Immature Granu locytes (promyelocytes, myelocytes and metamyelocytes) > 1% indicates that a LEFT SHIFT is Present. Ketones Test strip Ql (U)Ord ered By: Praful Zambrano on 03-22-2024 Ketones Ql (U) 5 mg/dl High Negative [facility] L501.4020on 03-22-2024 TROPONIN-I HS 11 pg/mL Normal 3.0-54.0 [facility] Comment on above: Order Comment: 'TROP ' Serial specimen #1, #2 or #3: 1 Result Comment: Danny disla Note: New Test Units and Gender Specific Reference Ranges. For more information see Policy Stat Procedure [place] High Sensitivity Troponin (TNIH) and attachments. Performed By: #### L 501.080 #### [facility] [place], [address] Laboratory - Chemistry and C hemistry - challengeOrdered By: Praful Zambrano on 03-22-2024 AST [Catalytic activity/Vol] 27 U/L 15-37 [facility] Comment on above: Slight Hemolysis, Re sult may be falsely increased. Laboratory - Hematology and Cell countsOrdered By: Praful Zambrano on 03-22-2024 Anisocytosis Ql (Bld) 1+ [facility] Lactic Acidon 03-22-2024 Lactate [Moles/Vol] 3.1 mmol/L Invalid Interpretation Code 0.4-1.9 [facility] Comment on above: Order Comment: Y Result Comment: Crit ical Result(s) Called at: 16:21:53 03/22/2024 by: KAITY WALTER TO NADEEM PROCTOR. Results read back by same. Performed By: #### L 501.080 #### [facility] [address] [place], [place], [id number] Lactic acid measurementOrder ed By: Praful Zambrano on 03-22-2024 Lactate [Moles/Vol] 3.1 mmol/L High 0.4-2.0 [facility] Comment on above: Critical Result(s) C alled at: 16:21:53 03/22/2024 by: KAITY PROCTOR. Results read back by same. Lymphocytes Auto (Unsp spec) [#/Vol]Ordered By: Praful Zambrano on 03-22-2024 Lymphocytes (Bld) [#/Vol] 0.57 10*3/uL Low 0.83-4.51 [facility] Lymphocytes/100 WBC Auto (Un sp spec)Ordered By: Praful Zambrano on 03-22-2024 Lymphocytes/100 WBC (Bld) 6.7 % Low 19-41 [facility] MCV (mean corpuscular volume ) determinationOrdered By: Praful Zambrano on 03-22-2024 MCV (RBC) [Entitic vol] 93.8 fL 81-99 [facility] Macrocytes Ql (Bld)Ordered B y: Praful Zambrano on 03-22-2024 Macrocytosis 1+ [facility] Manual differential comment Asa (Bld) [Interp]Ordered By: Praful Zambrano on 03-22-2024 Differential Comment SEE COMMENT [facility] Comment on above: LYMPHOPENIA NOTED Mean corpuscular hemoglobin (MCH) determinationOrdered By: Praful Zambrano on 03-22-2024 MCH (RBC) [Entitic mass] 31.0 pg 27.0-32.0 [facility] Mean corpuscular hemoglobin concentration (MCHC) determinationOrdered By: Praful Zambrano on 03-22-2024 MCHC (RBC) [Mass/Vol] 33.1 g/dL 32-36 [facility] Mean platelet volume determi nationOrdered By: Praful Zambrano on 03-22-2024 Platelet mean volume (Bld) [Entitic vol] 8.6 fL 6.2-12.0 [facility] Microscopic analysis of urin e for red blood cells (RBC)Ordered By: Praful Zambrano on 03-22-2024 Urine RBC 0-5 SEEN /hpf 0-5 [facility] Monocyte percentageOrdered B y: Praful Zambrano on 03-22-2024 Monocytes/100 WBC (Bld) 12.3 % High 0-10 [facility] Mucus LM Ql (Urine sed)Order ed By: Praful Zambrano on 03-22-2024 Mucus Ql (Urine sed) 0 SEEN /hpf [facility] Neutrophil percentageOrdered By: Praful Zambrano on 03-22-2024 Neutrophils/100 WBC (Bld) 78.0 % High 47-70 [facility] Nitrite Test strip Ql (U)Ord ered By: Praful Zambrano on 03-22-2024 Nitrite Ql (U) Negative Negative [facility] Nucleated red blood cell per centageOrdered By: Praful Zambrano on 03-22-2024 Nucleated RBC/100 WBC (Bld) [Ratio] 0 % 0-5 [facility] Platelet countOrdered By: Carlton Zambrano on 03-22-2024 Platelets (Bld) [#/Vol] 279 10*3/uL 150-450 [facility] Platelets LM Ql (Bld)Ordered By: Praful Zambrano on 03-22-2024 Platelet Estimate ADEQUATE ADEQ [facility] Potassium measurementOrdered By: Praful Zambrano on 03-22-2024 Potassium [Moles/Vol] 4.1 mmol/L 3.5-5.1 [facility] Comment on above: Slight Hemolysis, Re sult may be falsely increased. Protein Test strip Ql (U)Ord ered By: Praful Zambrano on 03-22-2024 Protein Ql (U) 30 mg/dl High Negative [facility] RBC Auto (Bld) [#/Vol]Ordere d By: Praful Zambrano on 03-22-2024 RBC (Bld) [#/Vol] 4.16 10*6/uL Low 4.2-5.4 [facility] RBC morphology finding Nom ( Bld)Ordered By: Praful Zambrano on 03-22-2024 Red Blood Cell Morphology N CHROM NORMAL NORM C&C [facility] Serum anion gap measurementO rdered By: Praful Zambrano on 03-22-2024 Anion gap [Moles/Vol] 9 mmol/L 5-15 [facility] Serum globulin measurementOr dered By: Praful Zambrano on 03-22-2024 Globulin (S) [Mass/Vol] 3.6 g/dL 2.2-4.2 [facility] Serum or plasma alanine garner otransferase (ALT) measurementOrdered By: Praful Zambrano on 03-22-2024 ALT [Catalytic activity/Vol] 29 U/L 13-56 [facility] Serum or plasma albumin julio urement (mass/volume)Ordered By: Praful Zambrano on 03-22-2024 Albumin [Mass/Vol] 3.6 g/dL 3.2-5.0 [facility] Serum or plasma alkaline marcin sphatase measurementOrdered By: Praful Zambrano on 03-22-2024 ALP [Catalytic activity/Vol] 95 U/L 45-117 [facility] Serum or plasma calcium julio urement (mass/volume)Ordered By: Praful Zambrano on 03-22-2024 Calcium [Mass/Vol] 9.6 mg/dL 8.5-10.1 [facility] Serum or plasma creatinine m easurement (mass/volume)Ordered By: Praful Zambrano on 03-22-2024 Creatinine [Mass/Vol] 1.12 mg/dL High 0.55-1.02 [facility] Comment on above: The validity of the calculated GFR & GFRAA in patients over 70 years has not been determined. Clinical correlation is essential. Serum or plasma urea nitroge n measurement (mass/volume)Ordered By: Praful Zambrano on 03-22-2024 Urea nitrogen [Mass/Vol] 20 mg/dL High 7-18 [facility] Sodium levelOrdered By: Mychal Zambrano on 03-22-2024 Sodium [Moles/Vol] 138 mmol/L 136-145 [facility] Total proteinOrdered By: Barry Zambrano on 03-22-2024 Protein [Mass/Vol] 7.2 g/dL 6.4-8.2 [facility] Troponin IOrdered By: Jesus Zambrano on 03-22-2024 Troponin I High Sensitivity 11 pg/mL 3.0-54.0 [facility] Comment on above: Please Note: New [place] t Units and Gender Specific Reference Ranges. For more information see Policy Stat Procedure [place] High Sensitivity Troponin (TNIH) and attachments. Urinalysis, Completeon 03-22 EPI,SQUAMOUS 0-5 SEEN Normal 5-10 [facility] Comment on above: Order Comment: CLEAN CATCH Performed By: #### L 501.080 #### [facility] [address] [place], [address] RBC 0-5 SEEN Normal 0-5 [facility] Comment on above: Order Comment: CLEAN CATCH Performed By: #### L 501.080 #### [facility] [address] [place], [address] BACTERIA 1+ /hpf Normal None Seen [facility] Comment on above: Order Comment: CLEAN CATCH Performed By: #### L 501.080 #### [facility] [address] [place], [address] WBC 50-100 SEEN Normal 0-5 [facility] Comment on above: Order Comment: CLEAN CATCH Performed By: #### L 501.080 #### [facility] [address] [place], [address] Mucus Ql (Urine sed) 0 SEEN Normal [facility] Comment on above: Order Comment: CLEAN CATCH Performed By: #### L 501.080 #### [facility] [address] [place], [address] Urine blood detectionOrdered By: Praful Zambrano on 03-22-2024 Urine Occult Blood 10 /ul High Negative [facility] Urine clarityOrdered By: Barry Zambrano on 03-22-2024 Clarity (U) Sl. Cloudy Clear [facility] Urine color determinationOrd ered By: Praful Zambrano on 03-22-2024 Color (U) Straw Yellow [facility] Urine cultureOrdered By: Barry Zambrano on 03-22-2024 Bacteria identified Cx Nom (U) Culture exhibits no growth. [facility] Urine leukocyte esterase det ection by dipstickOrdered By: Praful Zambrano on 03-22-2024 Leukocyte esterase Test strip Ql (U) 500 /ul High Negative [facility] Urine pHOrdered By: Praful Zambrano on 03-22-2024 pH (U) 5.0 [pH] 5.0 - 8.0 [facility] Urine sediment bacteria coun t by microscopy (number/high power field)Ordered By: Praful Zambrano on 03-22-2024 Bacteria LM.HPF (Urine sed) [#/Area] 1 /[HPF] None Seen [facility] Urine specific gravity measu rementOrdered By: Praful Zambrano on 03-22-2024 Specific gravity (U) [Rel density] 1.020 1.002-1.030 [facility] Urobilinogen Ql (U)Ordered B y: Praful Zambrano on 03-22-2024 Urobilinogen (U) [Mass/Vol] 4 mg/dL High Normal [facility] White blood cell (WBC) count Ordered By: Praful Zambrano on 03-22-2024 WBC (Bld) [#/Vol] 8.5 10*3/uL 4.4-11.0 [facility] White blood cell countOrdere d By: Praful Zambrano on 03-22-2024 Urine WBC 50-100 SEEN /hpf 0-5 [facility] 36on 03-21-2024 36 We have been unable to reach your patient to schedule their testing. Test Name: PET/CT SKULL BASE TO MID THIGH 1st attempt//Study Edge message/03.21.24 KGK 1st attempt, lvm 03/19/24 [facility] 36on 03-15-2024 36 Reviewed, eprescribed [facility] 36 Confirmed patient Name and : Yes Medication name(s) and dose(s) requested: Lorazepam (Ativan) 1 MG Tablet Approximate number of pills available in the home: 6 Tablets Left Confirmed and updated correct pharmacy: Yes Reminded patient of 3 business day refill policy on all medication refill requests: Yes Notified patient to call pharmacy to confirm prescription ready for pickup and to call office if not available within 3 business days: Yes Date of last appointment: 03/11/24 Date of next appointment: 04/08/[address] [facility] CBC W Auto Differential pane l (Bld)on 03-13-2024 Basophils (Bld) [#/Vol] 32 10*3/uL [facility] Basophils/100 WBC (Bld) 0.4 % [facility] Eosinophils (Bld) [#/Vol] 128 10*3/uL [facility] Eosinophils/100 WBC (Bld) 1.6 % [facility] Erythrocyte distribution width (RBC) [Ratio] 13 % 11.0 - 15.0 % [facility] Hematocrit (Bld) [Volume fraction] 45 % 35.0 - 45.0 % [facility] Hemoglobin (Bld) [Mass/Vol] 15.1 g/dL 11.7 - 15.5 g/dL [facility] Lymphocytes (Bld) [#/Vol] 3632 10*3/uL [facility] Lymphocytes/100 WBC (Bld) 45.4 % [facility] MCH (RBC) [Entitic mass] 31.3 pg 27.0 - 33.0 pg [facility] MCHC (RBC) [Mass/Vol] 33.6 g/dL 32.0 - 36.0 g/dL [facility] Comment on above: For adults, a slight decrease in the calculated MCHC value (in the range of 30 to 32 g/dL) is most likely not clinically significant; however, it should be interpreted with caution in correlation with other red cell parameters and the patient's clinical condition. MCV (RBC) [Entitic vol] 93.2 fL 80.0 - 100.0 fL [facility] Monocytes (Bld) [#/Vol] 648 10*3/uL [facility] Monocytes/100 WBC (Bld) 8.1 % [facility] Neutrophils (Bld) [#/Vol] 3560 10*3/uL [facility] Neutrophils/100 WBC (Bld) 44.5 % [facility] Platelet mean volume (Bld) [Entitic vol] 10.8 fL 7.5 - 12.5 fL [facility] Platelets (Bld) [#/Vol] 248 10*3/uL [facility] RBC (Bld) [#/Vol] 4.83 10*6/uL [facility] Service comment (Unsp spec) [Interp] [facility] Comment on above: We received your handwritten test order and performed CBC with differential (includes hemogram, platelet count and WBC with automated differential). If you intended to order a CBC without differential or another test, please contact us at [phone] [phone] ( [phone] to adjust the billing appropriately. WBC (Bld) [#/Vol] 8 10*3/uL [facility] Comprehensive metabolic 1998 panelon 03-13-2024 Albumin [Mass/Vol] 4.4 g/dL 3.6 - 5.1 g/dL [facility] Albumin/Globulin [Mass ratio] 1.8 {ratio} [facility] ALP [Catalytic activity/Vol] 68 U/L 37 - 153 U/L [facility] ALT [Catalytic activity/Vol] 18 U/L 6 - 29 U/L [facility] AST [Catalytic activity/Vol] 14 U/L 10 - 35 U/L [facility] Bilirubin [Mass/Vol] 0.7 mg/dL 0.2 - 1 .2 mg/dL [facility] Calcium [Mass/Vol] 10 mg/dL 8.6 - 10. 4 mg/dL [facility] Chloride [Moles/Vol] 104 mmol/L 98 - 11 0 mmol/L [facility] CO2 [Moles/Vol] 29 mmol/L 20 - 32 mmol/L [facility] Creatinine [Mass/Vol] 0.65 mg/dL 0.50 - 1.05 mg/dL [facility] GFR/1.73 sq M.predicted among non-blacks MDRD (S/P/Bld) [Vol rate/Area] 96 mL/min/{1.73_m2} > OR = 60 mL/min/1.73m 2 [facility] Globulin (S) [Mass/Vol] 2.4 g/dL [facility] Glucose [Mass/Vol] 165 mg/dL High 65 - 139 mg/dL [facility] Comment on above: Non-fasting reference interval For someone without known diabetes, a glucose value >125 mg/dL indicates that they may have diabetes and this should be confirmed with a follow-up test. Potassium [Moles/Vol] 4.9 mmol/L 3.5 - 5.3 mmol/L [facility] Protein [Mass/Vol] 6.8 g/dL 6.1 - 8.1 g/dL [facility] Sodium [Moles/Vol] 140 mmol/L 135 - 146 mmol/L [facility] Urea nitrogen [Mass/Vol] 9 mg/dL 7 - 25 mg/dL [facility] Urea nitrogen/Creatinine [Mass ratio] SEE NOTE: [facility] Comment on above: Not Reported: BUN an d Creatinine are within reference range. Hemoglobin A1con 03-13-2024 HbA1c (Bld) [Mass fraction] 7.7 % High NINF [facility] Comment on above: For someone without known diabetes, a hemoglobin A1c value of 6.5% or greater indicates that they may have diabetes and this should be confirmed with a follow-up test. For someone with known diabetes, a value <7% indicates that their diabetes is well controlled and a value greater than or equal to 7% indicates suboptimal control. A1c targets should be individualized based on duration of diabetes, age, comorbid conditions, and other considerations. Currently, no consensus exists regarding use of hemoglobin A1c for diagnosis of diabetes for children. No Panel Informationon 03-13 Interpretation and review of laboratory results Abnormal [facility] Office Visiton 03-11-2024 Follow-up visit [id number] Danny Pink 1955 F Date Provider Department Center 03/11/2024 [id number] CASON [facility] None Family History Problem Relation Age of Onset Breast cancer Mother 90 Ovarian cancer Neg Hx Colon cancer Neg Hx Uterine cancer Neg Hx Family Status - Relation Status Age at Paternal Grandfather Paternal Grandmother Maternal Grandmother Maternal Grandfather Father Mother Alive Neg Hx Level of Service:83386 SC OFFICE/OUTPATIENT ESTABLISHED MOD MDM 30 MIN Reason for Visit and Comments: Pain [136] - Joint and bone pain Fatigue [46] Anxiety [9] Depression [32] Shortness of Breath [582713] Constipation [903267] Normal [facility] Progress Noteon 03-11-2024 Progress Note [facility] [address], [address] [place] [address] Visit type: new patient, consultation Reason for Visit: Danny Pink is a 68 y.o. female with chief complaint of Pain (Joint and bone pain), Fatigue, Anxiety, Depression, Shortness of Breath, and Constipation Assessment and Plan Danny was seen today for pain, fatigue, shortness of breath, depression, anxiety and constipation. 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 Notes crushing bone pain in bilateral hips into legs and feet. On gabapentin 300 mg, but takes this intermittent for feet neuropathy. Did not tolerate gabapentin tid or cymbalta. For neuropathy use oxycodone 5-10mg po q 4h prn pain. For depression and neuropathy will start on effexor. Recurrent carcinoma of endometrium (HCC)- under care of Dr. Quiñonez, with multiple treatment lines and most recently simple partial vaginectomy. Awaiting PET scan, but could not complete at ordered date due to hyperglycemia. Current episode of depression- start on effexor. Diabetes/hyperglycemi a- on metformin- but no labs done in some time-- Will order CMP and HA1C to forward to PCP. Encourage PCP visit. Endometrial cancer (CMS/HCC) (HCC)-see above - Ambulatory referral to Palliative No orders of the defined types were placed in this encounter. 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 I assume responsibility for the patient's ongoing medical care of this condition. Follow-up: 4 weeks Subjective Danny Pink is a 68 y.o. 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 Tolerated treatment well. Due for repeat imaging to assess response to treatment. PET ordered. Unfortunately, there appears to be a new isolated vaginal lesion. Had simple partial vaginectomyunder care of Dr. Quiñonez on 10/06/23. Reviewed DAIRY MANUFACTURING TECHNOLOGIST/ONC notes, previously on multiple lines of chemotherapy/immunoth erapy. Pain Associated symptoms include constipation, fatigue and shortness of breath. Fatigue Associated symptoms include fatigue. Anxiety Symptoms include shortness of breath. DepressionPatient presents with the following symptoms: shortness of breath. Shortness of Breath Constipation Danny is seen today in follow up. She notes that she has not been feeling well for the last few weeks. Notes increased need for drinking/thirtsy and increased urination. Notes that she is sleeping in the day, awake most of the night. Notes ongoing chronic SOB with exertion. Notes that she feels unwell. She tried cymbalta for 1 week, and gabapentin tid--but had increased balance changes. Notes need help with her mood. For pain, uses 1 5mg tab po q 4h prn during the day, 2 tabs at night- using on average 8 tabs a day. Pain Assessment (If Pain Scale >0) Description: sharp and crushing Duration: year(s) Frequency:Daily Location: bones, hips into legs Alleviating Factors: pain medication Exacerbating Factors: unable to associate with any factor Effect:Change in Function and Interference with Activities, worst at night Phenix Symptom Assessment Score Phenix Symptom Assessment System Pain Score: 8 Tiredness Score: 7 Nausea Score: 3 Depression Score: 9 Anxiety Score: 9 Drowsiness Score: 7 Appetite Score: 1 Wellbeing Score: 7 Dyspnea Score: 7 Other Problem Score: 5 Assessed by:patient Review of Systems Constitutional: Positive for fatigue. Respiratory: Positive for shortness of breath. Gastrointestinal: Positive for constipation. Psychiatric/Behaviora l: Positive for depression. 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 Constitutional: Appearance: Normal appearance. She is normal weight. Comments: Flat mood HENT: Mouth/Throat: Mouth: Mucous membranes are moist. Eyes: General: No scleral icterus. Extraocular Movements: Extraocular movements intact. Pupils: Pupils are equal, round, and reactive to light. Comments: Pupils 3mm bilaterally Cardiovascular: Rate and Rhythm: Normal (more content not included)... [facility] Progress Note What is the most important item you want to discuss with your provider today? Stopped talking cymbalta. Made her depression worse. Stopped taking a week after starting them Complete med rec line by line. Yes Do you need refills on any medications today? No Pharmacy confirmed in Med management section. Yes [facility] 03-10-2024 36 Left vm for pt informing her that Alka has a meeting tomorrow and will try to her best to be back in the office by 11am however would like to push pts appt time to 11:15 just in case so she isnt waiting around if Alka runs behind. [facility] 03-08-2024 29 Addended by: SANDY MOROCHO on: 03/08/2024 05:26 PM Modules accepted: Orders [facility] 03-08-2024 36 Confirmed patient Name and : Yes Medication name(s) and dose(s) requested: trazodone (Desyrel) 100 mg tablet Approximate number of pills available in the home: 0 tablets Confirmed and updated correct pharmacy: Yes Reminded patient of 3 business day refill policy on all medication refill requests: Yes Notified patient to call pharmacy to confirm prescription ready for pickup and to call office if not available within 3 business days: Yes Date of last appointment: 10/30/23 Date of next appointment 03/11/[address] [facility] [id number] 29 Addended by: ALKA CASON on: 03/01/2024 10:25 AM Modules accepted: Orders [facility] 03-01-2024 36 Reviewed oaars.eprescribed ativan refill [facility] 36 Confirmed patient Name and : Yes Medication name(s) and dose(s) requested: Lorazepam (Ativan) 1 mg tablet Approximate number of pills available in the home: 1 tablet left Confirmed and updated correct pharmacy: Yes Reminded patient of 3 business day refill policy on all medication refill requests: Yes Notified patient to call pharmacy to confirm prescription ready for pickup and to call office if not available within 3 business days: Yes Date of last appointment: 10/30/23 Date of next appointment: 03/11/[address] [facility] 29 02-23-2024 29 Addended by: ALKA CASON on: 02/23/2024 01:51 PM Modules accepted: Orders [address] 02-23-2024 Please let her know that we will not be able to refill meds until 02/28. Thanks. [place] [id number] Informed pt this medication is not due until the . Pt stated she must've taken too many Confirmed patient Name and : Yes Medication name(s) and dose(s) requested: Oxycodone (Roxicodone) 5 mg ir tablet Approximate number of pills available in the home: 6 tablets left Confirmed and updated correct pharmacy: Yes Reminded patient of 3 business day refill policy on all medication refill requests: Yes Notified patient to call pharmacy to confirm prescription ready for pickup and to call office if not available within 3 business days: Yes Date of last appointment: 10/30/23 Date of next appointment: 03/11/[address] [facility] 29 02-18-2024 29 Addended by: ALKA CASON on: 02/18/2024 10:13 AM Modules accepted: Orders [place] [address]on 02-18-2024 36 Prescription Refill Request Patient Name: Danny Pink PCP: Donovan Hernandez Past Medical History: Past Medical History: Diagnosis Date Anemia LOW IRON DUE TO BLEEDING Asthma Cerebral artery occlusion with cerebral infarction (HCC) Diabetes (HCC) Endometrial adenocarcinoma (CMS/HCC) (HCC) FIGO GRADE 2 GERD (gastroesophageal reflux disease) Glaucoma 2014 Hx of blood clots Hypertension Mini stroke 2014 Thrombotic. Affected short term memory, had to relearn things, locations. Past Surgical History: Past Surgical History: Procedure Laterality Date CATARACT EXTRACTION Left CATARACT EXTRACTION W/ INTRAOCULAR LENS IMPLANT Right 07/09/2021 SECTION (HISTORICAL) x2. Pfannenstiel incisions. COLONOSCOPY DILATION AND CURETTAGE OF UTERUS 12/19/2017 Dr Brittny [facility] ENDOMETRIAL BIOPSY IR CVC MEDIPORT PLACEMENT OTHER SURGICAL HISTORY 12/09/2019 Robotic Fe-Aortic Biopsy TONSILLECTOMY (HISTORICAL) TOTAL ABDOMINAL HYSTERECTOMY 01/19/2018 Robotic hysterectomy, BSO, right pelvic sentinel LNB, left pelvic lymphadenectomy-Dr. Khang Tapia [facility] TUBAL LIGATION UPPER GASTROINTESTINAL ENDOSCOPY Allergies: Allergies Allergen Reactions Morphine Anaphylaxis and Shortness of breath Codeine Rash and Nausea And Vomiting Other reaction(s): Other (See Comments), Upset Stomach Problem List: does not have any pertinent problems on file. Current Medication List: Current Outpatient Medications on File Prior to Visit Medication Sig Dispense Refill albuterol 108 (90 Base) MCG/ACT inhaler Inhale 90 each if needed. aspirin 81 MG chewable tablet Chew 81 mg daily. bisacodyl (Dulcolax) 5 MG EC tablet Take 10 mg by mouth if needed. brimonidine (AlphaGAN P) 0.2 % ophthalmic solution Administer 1 drop into both eyes Nightly. calcium carbonate (Os-Papito) 1250 (500 Ca) MG chewable tablet Chew 1 tablet if needed. cholecalciferol (Vitamin D-3) 50 MCG (2000 UT) capsule Take 1 capsule (50 mcg) by mouth in the morning. 30 capsule 2 dicyclomine (Bentyl) 10 MG capsule Take 10 mg by mouth if needed. DULoxetine (Cymbalta) [address] capsule Take 1 capsule (30 mg) by mouth 2 times daily. Do not crush or chew. 60 capsule 5 gabapentin (Neurontin) 300 MG capsule Take 1 capsule (300 mg) by mouth 3 times daily. 90 capsule 0 ketorolac (Acular) 0.5 % ophthalmic solution latanoprost (Xalatan) 0.005 % ophthalmic solution Administer 1 drop into both eyes Nightly. LORazepam (Ativan) 1 MG tablet Take 1 tablet (1 mg) by mouth every 8 hours as needed for anxiety for up to 20 days. Do not start before December 15, 2023. 60 tablet 0 LORazepam (Ativan) 1 MG tablet Take 1 tablet (1 mg) by mouth every 6 hours as needed for anxiety. 60 tablet 0 metFORMIN XR (Glucophage-XR) 500 MG 24 hr tablet Take 1,000 mg by mouth in the morning and 1,000 mg in the evening. Misc. Devices (Sitz Bath) misc Use for pain relief as needed 1 each 0 Misc. Devices (Collins Bottle/Plastic 120mL) misc Use to clean area as needed 1 each 0 naloxone (Narcan) 4 mg/0.1 mL nasal spray Administer 4 mg into affected nostril(s) if needed. ofloxacin (Ocuflox) 0.3 % ophthalmic solution ondansetron (Zofran) 8 MG tablet Take 8 mg by mouth if needed. oxyCODONE (Roxicodone) 5 MG immediate release tablet Take 1 tablet (5 mg) by mouth every 4 hours as needed for severe pain (7-10) for up to 20 days. 120 tablet 0 pantoprazole (ProtoNix) 40 MG EC tablet Take 40 mg by mouth if needed. prednisoLONE acetate (Pred-Forte) 1 % ophthalmic suspension prochlorperazine (Compazine) 10 MG tablet Take 1 tablet (10 mg) by mouth every 8 hours as needed for nausea or vomiting. 60 tablet 3 sennosides (Senokot) 8.6 MG tablet Take 8.6 mg by mouth in the morning and 8.6 mg in the evening. sucralfate (Carafate) 1 GM/10ML suspension Take 1 g by mouth if needed. traZODone (Desyrel) 100 MG tablet Take 1 tablet (100 mg) by mouth Nightly. 30 tablet 0 Trelegy Ellipta 200-62.5-25 MCG/ACT aerosol powder No current facility-administered medications on file prior to visit. Telephone call placed to patient. The identity and location of the patient was confirmed and informed consent for treatment through a remote examination was obtained. The patient's diagnosis was confirmed and necessity for prescribed drug was verified. Drug(s) to be refilled: Requested Prescriptions No prescriptions requested or ordered in this encounter The patient has underlying conditions or contraindications which preclude continuation of the medication at this time: No, Refill provided {Put your decision support here (Optional): [id number]: If the medication(s) being refilled is (are) a controlled substance please verify the following: The person is an active patient of a licensed practitioner who is a colleague of the provider Yes Drugs are being prescribed pursuant to an on-call or cross coverage agreement {Blank single:70140:: Yes, No, N (more content not included)... [address] 02-17-2024 36 Confirmed patient Name and : Yes Medication name(s) and dose(s) requested: Lorazepam (Ativan) 1 mg tablet Approximate number of pills available in the home: 0 tablets left Confirmed and updated correct pharmacy: Yes Reminded patient of 3 business day refill policy on all medication refill requests: Yes Notified patient to call pharmacy to confirm prescription ready for pickup and to call office if not available within 3 business days: Yes Date of last appointment: 10/30/23 Date of next appointment: 03/11/[address] 02-09-2024 36 Prescription Refill Request Patient Name: Danny Pink PCP: Donovan Hernandez Past Medical History: Past Medical History: Diagnosis Date Anemia LOW IRON DUE TO BLEEDING Asthma Cerebral artery occlusion with cerebral infarction (HCC) Diabetes (HCC) Endometrial adenocarcinoma (CMS/HCC) (HCC) FIGO GRADE 2 GERD (gastroesophageal reflux disease) Glaucoma 2014 Hx of blood clots Hypertension Mini stroke 2014 Thrombotic. Affected short term memory, had to relearn things, locations. Past Surgical History: Past Surgical History: Procedure Laterality Date CATARACT EXTRACTION Left CATARACT EXTRACTION W/ INTRAOCULAR LENS IMPLANT Right 07/09/2021 SECTION (HISTORICAL) x2. Pfannenstiel incisions. COLONOSCOPY DILATION AND CURETTAGE OF UTERUS 12/19/2017 Dr Brittny [facility] ENDOMETRIAL BIOPSY IR CVC MEDIPORT PLACEMENT OTHER SURGICAL HISTORY 12/09/2019 Robotic Fe-Aortic Biopsy TONSILLECTOMY (HISTORICAL) TOTAL ABDOMINAL HYSTERECTOMY 01/19/2018 Robotic hysterectomy, BSO, right pelvic sentinel LNB, left pelvic lymphadenectomy-Dr. Khang Tapia [facility] TUBAL LIGATION UPPER GASTROINTESTINAL ENDOSCOPY Allergies: Allergies Allergen Reactions Morphine Anaphylaxis and Shortness of breath Codeine Rash and Nausea And Vomiting Other reaction(s): Other (See Comments), Upset Stomach Problem List: does not have any pertinent problems on file. Current Medication List: Current Outpatient Medications on File Prior to Visit Medication Sig Dispense Refill albuterol 108 (90 Base) MCG/ACT inhaler Inhale 90 each if needed. aspirin 81 MG chewable tablet Chew 81 mg daily. bisacodyl (Dulcolax) 5 MG EC tablet Take 10 mg by mouth if needed. brimonidine (AlphaGAN P) 0.2 % ophthalmic solution Administer 1 drop into both eyes Nightly. calcium carbonate (Os-Papito) 1250 (500 Ca) MG chewable tablet Chew 1 tablet if needed. cholecalciferol (Vitamin D-3) 50 MCG (2000 UT) capsule Take 1 capsule (50 mcg) by mouth in the morning. 30 capsule 2 dicyclomine (Bentyl) 10 MG capsule Take 10 mg by mouth if needed. DULoxetine (Cymbalta) [address] capsule Take 1 capsule (30 mg) by mouth 2 times daily. Do not crush or chew. 60 capsule 5 gabapentin (Neurontin) 300 MG capsule Take 1 capsule (300 mg) by mouth 3 times daily. 90 capsule 0 ketorolac (Acular) 0.5 % ophthalmic solution latanoprost (Xalatan) 0.005 % ophthalmic solution Administer 1 drop into both eyes Nightly. LORazepam (Ativan) 1 MG tablet Take 1 tablet (1 mg) by mouth every 8 hours as needed for anxiety for up to 20 days. Do not start before December 15, 2023. 60 tablet 0 LORazepam (Ativan) 1 MG tablet Take 1 tablet (1 mg) by mouth every 6 hours as needed for anxiety. 60 tablet 0 metFORMIN XR (Glucophage-XR) 500 MG 24 hr tablet Take 1,000 mg by mouth in the morning and 1,000 mg in the evening. Misc. Devices (Sitz Bath) misc Use for pain relief as needed 1 each 0 Misc. Devices (Collins Bottle/Plastic 120mL) misc Use to clean area as needed 1 each 0 naloxone (Narcan) 4 mg/0.1 mL nasal spray Administer 4 mg into affected nostril(s) if needed. ofloxacin (Ocuflox) 0.3 % ophthalmic solution ondansetron (Zofran) 8 MG tablet Take 8 mg by mouth if needed. oxyCODONE (Roxicodone) 5 MG immediate release tablet Take 1 tablet (5 mg) by mouth every 4 hours as needed for severe pain (7-10) for up to 20 days. 120 tablet 0 pantoprazole (ProtoNix) 40 MG EC tablet Take 40 mg by mouth if needed. prednisoLONE acetate (Pred-Forte) 1 % ophthalmic suspension prochlorperazine (Compazine) 10 MG tablet Take 1 tablet (10 mg) by mouth every 8 hours as needed for nausea or vomiting. 60 tablet 3 sennosides (Senokot) 8.6 MG tablet Take 8.6 mg by mouth in the morning and 8.6 mg in the evening. sucralfate (Carafate) 1 GM/10ML suspension Take 1 g by mouth if needed. traZODone (Desyrel) 100 MG tablet Take 1 tablet (100 mg) by mouth Nightly. 30 tablet 0 Trelegy Ellipta 200-62.5-25 MCG/ACT aerosol powder No current facility-administered medications on file prior to visit. Telephone call placed to patient. The identity and location of the patient was confirmed and informed consent for treatment through a remote examination was obtained. The patient's diagnosis was confirmed and necessity for prescribed drug was verified. Drug(s) to be refilled: Requested Prescriptions No prescriptions requested or ordered in this encounter The patient has underlying conditions or contraindications which preclude continuation of the medication at this time: No, Refill provided {Put your decision support here (Optional): [id number]: If the medication(s) being refilled is (are) a controlled substance please verify the following: The person is an active patient of a licensed practitioner who is a colleague of the provider Yes Drugs are being prescribed pursuant to an on-call or cross coverage agreement {Blank single:91388:: Yes, No, N (more content not included)... [facility] 36 Confirmed patient Name and : Yes Medication name(s) and dose(s) requested: Oxycodone (Roxicodone) 5 mg IR tablet Trazadone (Desyrel) 100 mg tablet Approximate number of pills available in the home: 3 tablets left 0 tablets left Confirmed and updated correct pharmacy: Yes Reminded patient of 3 business day refill policy on all medication refill requests: Yes Notified patient to call pharmacy to confirm prescription ready for pickup and to call office if not available within 3 business days: Yes Date of last appointment: 10/30/2023 Date of next appointment: 03/11/24 Pt stated last Rx said she could take 1-2 tabs if needed, please advise. [facility] 36on 02-02-2024 36 Reviewed oaars.[address]rescribed. [facility] 36 Confirmed patient Name and : Yes Medication name(s) and dose(s) requested: Lorazepam (Ativan) 1 MG Tablet Approximate number of pills available in the home: Ativan- 3 Tablets Left Confirmed and updated correct pharmacy: Yes Reminded patient of 3 business day refill policy on all medication refill requests: Yes Notified patient to call pharmacy to confirm prescription ready for pickup and to call office if not available within 3 business days: Yes Date of last appointment: 10/30/23 Date of next appointment: 03/11/[address] [facility] 36on 01-30-2024 36 When you get a chance, can you please finish office note? Thank you! 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 Progress Noteon 01-29-2024 Progress Note Chief Complaint Patient presents with Endometrial Cancer Follow-up HISTORY OF THE PRESENT ILLNESS: Danny Pink is a pleasant 68 y.o. female with recurrent endometrial cancer. She has a history of stage IB, FIGO grade 2 endometrioid endometrial adenocarcinoma, +LVSI, +washings, MMR protein testing normal. She underwent robotic endometrial cancer staging on 01/19/2018. Met diagnostic criteria for high-intermediate risk of recurrence. Completed pelvic radiation on 04/27/18. Unfortunately, the patient complained of new onset of back pain in September 2019. She underwent a computed tomography scan of the abdomen and pelvis which showed an enlarged left periaortic lymph node. PET scan confirmed that this was a focus of FDG avidity. There were no other sites of metastatic disease on the PET scan. Management options were discussed with the patient at length. We elected to proceed with an attempt at surgical resection. She underwent attempted robotic resection of the left periaortic lymph node on 12/09/2019. Unfortunately, there was evidence of extracapsular extension of disease and the lymph node was matted and densely adherent to the abdominal aorta. There is no way to completely surgically resect the disease. Biopsies were obtained confirming the diagnosis. Patient was started on systemic chemotherapy with carboplatin and paclitaxel. Patient completed cycle #6 carbo/taxol on 04/19/2020. She was on a reduced dose of Taxol 135 mg/m2 due to arthralgias and myalgias. 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 I recommended 3 additional cycles of chemotherapy. Completed #9 cycles of carbo/taxol. Overall, she tolerated chemotherapy well. She does have arthralgias and myalgias that are better tolerated on the reduced dose of Taxol. Repeat PET 08/25/2020: IMPRESSION: There has been significant improvement of intensity of FDG accumulation within a mildly enlarged left periaortic lymph node when compared to the study from 06/16/2020. On the current examination, the node demonstrates mild FDG accumulation. Attention to this area is recommended on subsequent examinations. There are no new areas of abnormal FDG accumulation seen to suggest progression of malignancy. We discussed treatment options - continued carbo/taxol versus hormonal therapy. We switched to tamoxifen/megace. Patient was unable to tolerate hormonal therapy. When she was seen in the office in November 2020 there was a new vaginal lesion. Biopsy confirmed recurrent endometrial cancer. The patient was started on systemic chemotherapy with Keytruda and Lenvima. She was unable to tolerate Lenvima which was discontinued. She underwent a PET scan on 02/22/2021 to assess response to treatment which showed: IMPRESSION: There is fairly intense, abnormal FDG accumulation within a mildly enlarged left para-aortic lymph node, consistent with residual or recurrent malignancy. When compared to the examination dated 12/08/2020, both the size and intensity of FDG uptake within this node has increased. No new areas of abnormal FDG accumulation are identified. On examination, the periurethral lesion that was somewhat smaller in size. The decision was made to continue systemic immunotherapy with Keytruda and consider re-irradiation of the left periaortic lymph node. Received radiation therapy in [place] with Dr. Melendez. Treated from April 25 through May 29, 2021. Received 45 Gy to the periaortic lymph nodes with a simultaneous boost to 55 Gy to the gross disease. Overall, tolerated treatments well and was able to continue Keytruda during her radiation. Does have arthralgia/myalgias several days after Keytruda. Having a rash. Just on her face, happens about 1 week after the Keytruda. Recurrent urinary tract infections after Keytruda. We are treating with prophylactic Bactrim following treatment. PET 08/20/2021: IMPRESSION: Previously identified FDG avid left para-aortic lymph node on the study from 02/22/2021 has decreased in size and intensity of FDG accumulation. No new FDG avid lymphadenopathy is seen within the abdomen or pelvis. There is a new focus of increased FDG uptake within the perineum in the expected location of the vaginal vault or near the vaginal cuff. The intensity of uptake is suspicious for residual or recurrent malignancy. Referred to radiation oncology for interstitial brachytherapy at [facility]. Underwent treatment 12/2021. Post treatment reported blisters on the labia that were painful with drainage. Moist desquamation. Decided to discontinue Keytruda. MRI 04/17/2022: FINDINGS: Uterus: The uterus is surgically absent. The previously seen focus of signal abnormality with abnormal enhancement or restricted diffusion along the posterior wall of the vagina is present, with resolution of the previously seen (more content not included)... Normal [address] 01-22-2024 36 Prescription Refill Request Patient Name: Danny Pink PCP: Donovan Hernandez Past Medical History: Past Medical History: Diagnosis Date Anemia LOW IRON DUE TO BLEEDING Asthma Cerebral artery occlusion with cerebral infarction (HCC) Diabetes (HCC) Endometrial adenocarcinoma (CMS/HCC) (HCC) FIGO GRADE 2 GERD (gastroesophageal reflux disease) Glaucoma 2014 Hx of blood clots Hypertension Mini stroke 2014 Thrombotic. Affected short term memory, had to relearn things, locations. Past Surgical History: Past Surgical History: Procedure Laterality Date CATARACT EXTRACTION W/ INTRAOCULAR LENS IMPLANT Right 07/09/2021 SECTION (HISTORICAL) x2. Pfannenstiel incisions. COLONOSCOPY DILATION AND CURETTAGE OF UTERUS 12/19/2017 [facility] CVC MEDIPORT PLACEMENT OTHER SURGICAL HISTORY 12/09/2019 Robotic Fe-Aortic Biopsy TONSILLECTOMY (HISTORICAL) TOTAL ABDOMINAL HYSTERECTOMY 01/19/2018 Robotic hysterectomy, BSO, right pelvic sentinel LNB, left pelvic lymphadenectomy-Dr. Khang Tapia [facility] TUBAL LIGATION UPPER GASTROINTESTINAL ENDOSCOPY Allergies: Allergies Allergen Reactions Morphine Anaphylaxis and Shortness of breath Codeine Rash and Nausea And Vomiting Other reaction(s): Other (See Comments), Upset Stomach Problem List: does not have any pertinent problems on file. Current Medication List: Current Outpatient Medications on File Prior to Visit Medication Sig Dispense Refill albuterol 108 (90 Base) MCG/ACT inhaler Inhale 90 each if needed. aspirin 81 MG chewable tablet Chew 81 mg daily. bisacodyl (Dulcolax) 5 MG EC tablet Take 10 mg by mouth if needed. brimonidine (AlphaGAN P) 0.2 % ophthalmic solution Administer 1 drop into both eyes Nightly. calcium carbonate (Os-Papito) 1250 (500 Ca) MG chewable tablet Chew 1 tablet if needed. cholecalciferol (Vitamin D-3) 50 MCG (2000 UT) capsule Take 1 capsule (50 mcg) by mouth in the morning. 30 capsule 2 dicyclomine (Bentyl) 10 MG capsule Take 10 mg by mouth if needed. DULoxetine (Cymbalta) [address] capsule Take 1 capsule (30 mg) by mouth 2 times daily. Do not crush or chew. 60 capsule 5 gabapentin (Neurontin) 300 MG capsule Take 1 capsule (300 mg) by mouth 3 times daily. 90 capsule 0 latanoprost (Xalatan) 0.005 % ophthalmic solution Administer 1 drop into both eyes Nightly. LORazepam (Ativan) 1 MG tablet Take 1 tablet (1 mg) by mouth every 8 hours as needed for anxiety for up to 20 days. Do not start before December 15, 2023. 60 tablet 0 LORazepam (Ativan) 1 MG tablet Take 1 tablet (1 mg) by mouth every 6 hours as needed for anxiety. 60 tablet 0 metFORMIN XR (Glucophage-XR) 500 MG 24 hr tablet Take 1,000 mg by mouth in the morning and 1,000 mg in the evening. Misc. Devices (Sitz Bath) misc Use for pain relief as needed 1 each 0 Misc. Devices (Collins Bottle/Plastic 120mL) misc Use to clean area as needed 1 each 0 naloxone (Narcan) 4 mg/0.1 mL nasal spray Administer 4 mg into affected nostril(s) if needed. ondansetron (Zofran) 8 MG tablet Take 8 mg by mouth if needed. oxyCODONE (Roxicodone) 5 MG immediate release tablet Take 1 tablet (5 mg) by mouth every 4 hours as needed for severe pain (7-10) for up to 20 days. 120 tablet 0 pantoprazole (ProtoNix) 40 MG EC tablet Take 40 mg by mouth if needed. sennosides (Senokot) 8.6 MG tablet Take 8.6 mg by mouth in the morning and 8.6 mg in the evening. sucralfate (Carafate) 1 GM/10ML suspension Take 1 g by mouth if needed. traZODone (Desyrel) 100 MG tablet Take 1 tablet (100 mg) by mouth Nightly. 30 tablet 0 Trelegy Ellipta 200-62.5-25 MCG/ACT aerosol powder [DISCONTINUED] LORazepam (Ativan) 1 MG tablet Take 1 tablet (1 mg) by mouth every 6 hours as needed for anxiety. 60 tablet 0 No current facility-administered medications on file prior to visit. Telephone call placed to patient. The identity and location of the patient was confirmed and informed consent for treatment through a remote examination was obtained. The patient's diagnosis was confirmed and necessity for prescribed drug was verified. Drug(s) to be refilled: Requested Prescriptions No prescriptions requested or ordered in this encounter The patient has underlying conditions or contraindications which preclude continuation of the medication at this time: No, Refill provided {Put your decision support here (Optional): [id number]: If the medication(s) being refilled is (are) a controlled substance please verify the following: The person is an active patient of a licensed practitioner who is a colleague of the provider Yes Drugs are being prescribed pursuant to an on-call or cross coverage agreement {Blank single:91289:: Yes, No, N/A OARRS report reviewed: Yes Referrals placed: N/A Follow-Up Care and Testing: No follow-ups on file. [facility] 36 Confirmed patient Name and : Yes Medication name(s) and dose(s) requested: oxycodone(Roxicodone) 5mg ir tablet Approximate number of pills available in the home: 10 tablets left Confirmed and updated correct pharmacy: Yes Reminded patient of 3 business day refill policy on all medication refill requests: Yes Notified patient to call pharmacy to confirm prescription ready for pickup and to call office if not available within 3 business days: Yes Date of last appointment: 10/30/2023 Date of next appointment: 02/06/[address] [facility] 36on 01-20-2024 36 Prescription Refill Request Patient Name: Danny Jeramie Richard PCP: Donovan Hernandez Past Medical History: Past Medical History: Diagnosis Date Anemia LOW IRON DUE TO BLEEDING Asthma Cerebral artery occlusion with cerebral infarction (HCC) Diabetes (HCC) Endometrial adenocarcinoma (CMS/HCC) (HCC) FIGO GRADE 2 GERD (gastroesophageal reflux disease) Glaucoma 2014 Hx of blood clots Hypertension Mini stroke 2014 Thrombotic. Affected short term memory, had to relearn things, locations. Past Surgical History: Past Surgical History: Procedure Laterality Date CATARACT EXTRACTION W/ INTRAOCULAR LENS IMPLANT Right 07/09/2021 SECTION (HISTORICAL) x2. Pfannenstiel incisions. COLONOSCOPY DILATION AND CURETTAGE OF UTERUS 12/19/2017 Dr Brittny Gan[facility] ENDOMETRIAL BIOPSY IR CVC MEDIPORT PLACEMENT OTHER SURGICAL HISTORY 12/09/2019 Robotic Fe-Aortic Biopsy TONSILLECTOMY (HISTORICAL) TOTAL ABDOMINAL HYSTERECTOMY 01/19/2018 Robotic hysterectomy, BSO, right pelvic sentinel LNB, left pelvic lymphadenectomy-Dr. Khang Tapia [facility] TUBAL LIGATION UPPER GASTROINTESTINAL ENDOSCOPY Allergies: Allergies Allergen Reactions Morphine Anaphylaxis and Shortness of breath Codeine Rash and Nausea And Vomiting Other reaction(s): Other (See Comments), Upset Stomach Problem List: does not have any pertinent problems on file. Current Medication List: Current Outpatient Medications on File Prior to Visit Medication Sig Dispense Refill albuterol 108 (90 Base) MCG/ACT inhaler Inhale 90 each if needed. aspirin 81 MG chewable tablet Chew 81 mg daily. bisacodyl (Dulcolax) 5 MG EC tablet Take 10 mg by mouth if needed. brimonidine (AlphaGAN P) 0.2 % ophthalmic solution Administer 1 drop into both eyes Nightly. calcium carbonate (Os-Papito) 1250 (500 Ca) MG chewable tablet Chew 1 tablet if needed. cholecalciferol (Vitamin D-3) 50 MCG (2000 UT) capsule Take 1 capsule (50 mcg) by mouth in the morning. 30 capsule 2 dicyclomine (Bentyl) 10 MG capsule Take 10 mg by mouth if needed. DULoxetine (Cymbalta) [address] capsule Take 1 capsule (30 mg) by mouth 2 times daily. Do not crush or chew. 60 capsule 5 gabapentin (Neurontin) 300 MG capsule Take 1 capsule (300 mg) by mouth 3 times daily. 90 capsule 0 latanoprost (Xalatan) 0.005 % ophthalmic solution Administer 1 drop into both eyes Nightly. LORazepam (Ativan) 1 MG tablet Take 1 tablet (1 mg) by mouth every 8 hours as needed for anxiety for up to 20 days. Do not start before December 15, 2023. 60 tablet 0 metFORMIN XR (Glucophage-XR) 500 MG 24 hr tablet Take 1,000 mg by mouth in the morning and 1,000 mg in the evening. Misc. Devices (Sitz Bath) misc Use for pain relief as needed 1 each 0 Misc. Devices (Collins Bottle/Plastic 120mL) misc Use to clean area as needed 1 each 0 naloxone (Narcan) 4 mg/0.1 mL nasal spray Administer 4 mg into affected nostril(s) if needed. ondansetron (Zofran) 8 MG tablet Take 8 mg by mouth if needed. oxyCODONE (Roxicodone) 5 MG immediate release tablet Take 1 tablet (5 mg) by mouth every 4 hours as needed for severe pain (7-10) for up to 20 days. 120 tablet 0 pantoprazole (ProtoNix) 40 MG EC tablet Take 40 mg by mouth if needed. sennosides (Senokot) 8.6 MG tablet Take 8.6 mg by mouth in the morning and 8.6 mg in the evening. sucralfate (Carafate) 1 GM/10ML suspension Take 1 g by mouth if needed. traZODone (Desyrel) 100 MG tablet Take 1 tablet (100 mg) by mouth Nightly. 30 tablet 0 Trelegy Ellipta 200-62.5-25 MCG/ACT aerosol powder [DISCONTINUED] LORazepam (Ativan) 1 MG tablet Take 1 tablet (1 mg) by mouth every 6 hours as needed for anxiety. 60 tablet 0 No current facility-administered medications on file prior to visit. Telephone call placed to patient. The identity and location of the patient was confirmed and informed consent for treatment through a remote examination was obtained. The patient's diagnosis was confirmed and necessity for prescribed drug was verified. Drug(s) to be refilled: Requested Prescriptions Signed Prescriptions Disp Refills LORazepam (Ativan) 1 MG tablet 60 tablet 0 Sig: Take 1 tablet (1 mg) by mouth every 6 hours as needed for anxiety. Authorizing Provider: ALKA CASON The patient has underlying conditions or contraindications which preclude continuation of the medication at this time: No, Refill provided {Put your decision support here (Optional): [id number]: If the medication(s) being refilled is (are) a controlled substance please verify the following: The person is an active patient of a licensed practitioner who is a colleague of the provider Yes Drugs are being prescribed pursuant to an on-call or cross coverage agreement {Blank single:33958:: Yes, No, N/A OARRS report reviewed: Yes Referrals placed: N/A Follow-Up Care and Testing: No follow-ups on file. [facility] 01-19-2024 36 Confirmed patient Name and : Yes Medication name(s) and dose(s) requested: Lorazepam (Ativan) 1 MG Tablet Approximate number of pills available in the home: None Left Confirmed and updated correct pharmacy: Yes Reminded patient of 3 business day refill policy on all medication refill requests: Yes Notified patient to call pharmacy to confirm prescription ready for pickup and to call office if not available within 3 business days: Yes Date of last appointment: 10/30/23 Date of next appointment: N/A [place] [id number] 36 Prescription Refill Request Patient Name: Danny Pink PCP: Donovan Hernandez Past Medical History: Past Medical History: Diagnosis Date Anemia LOW IRON DUE TO BLEEDING Asthma Cerebral artery occlusion with cerebral infarction (HCC) Diabetes (HCC) 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 Affected short term memory, had to relearn things, locations. Past Surgical History: Past Surgical History: Procedure Laterality Date CATARACT EXTRACTION W/ INTRAOCULAR LENS IMPLANT Right 07/09/2021 SECTION (HISTORICAL) x2. Pfannenstiel incisions. COLONOSCOPY DILATION AND CURETTAGE OF UTERUS 12/19/2017 Dr Brittny Gan[facility] ENDOMETRIAL BIOPSY IR CVC MEDIPORT PLACEMENT OTHER SURGICAL HISTORY 12/09/2019 Robotic Fe-Aortic Biopsy TONSILLECTOMY (HISTORICAL) TOTAL ABDOMINAL HYSTERECTOMY 01/19/2018 Robotic hysterectomy, BSO, right pelvic sentinel LNB, left pelvic lymphadenectomy-Dr. Khang Tapia [facility] TUBAL LIGATION UPPER GASTROINTESTINAL ENDOSCOPY Allergies: Allergies Allergen Reactions Morphine Anaphylaxis and Shortness of breath Codeine Rash and Nausea And Vomiting Other reaction(s): Other (See Comments), Upset Stomach Problem List: does not have any pertinent problems on file. Current Medication List: Current Outpatient Medications on File Prior to Visit Medication Sig Dispense Refill albuterol 108 (90 Base) MCG/ACT inhaler Inhale 90 each if needed. aspirin 81 MG chewable tablet Chew 81 mg daily. bisacodyl (Dulcolax) 5 MG EC tablet Take 10 mg by mouth if needed. brimonidine (AlphaGAN P) 0.2 % ophthalmic solution Administer 1 drop into both eyes Nightly. calcium carbonate (Os-Papito) 1250 (500 Ca) MG chewable tablet Chew 1 tablet if needed. cholecalciferol (Vitamin D-3) 50 MCG (2000 UT) capsule Take 1 capsule (50 mcg) by mouth in the morning. 30 capsule 2 dicyclomine (Bentyl) 10 MG capsule Take 10 mg by mouth if needed. DULoxetine (Cymbalta) [address] capsule Take 1 capsule (30 mg) by mouth 2 times daily. Do not crush or chew. 60 capsule 5 gabapentin (Neurontin) 300 MG capsule Take 1 capsule (300 mg) by mouth 3 times daily. 90 capsule 0 latanoprost (Xalatan) 0.005 % ophthalmic solution Administer 1 drop into both eyes Nightly. LORazepam (Ativan) 1 MG tablet Take 1 tablet (1 mg) by mouth every 8 hours as needed for anxiety for up to 20 days. Do not start before December 15, 2023. 60 tablet 0 LORazepam (Ativan) 1 MG tablet Take 1 tablet (1 mg) by mouth every 6 hours as needed for anxiety. 60 tablet 0 metFORMIN XR (Glucophage-XR) 500 MG 24 hr tablet Take 1,000 mg by mouth in the morning and 1,000 mg in the evening. Misc. Devices (Sitz Bath) misc Use for pain relief as needed 1 each 0 Misc. Devices (Collins Bottle/Plastic 120mL) misc Use to clean area as needed 1 each 0 naloxone (Narcan) 4 mg/0.1 mL nasal spray Administer 4 mg into affected nostril(s) if needed. ondansetron (Zofran) 8 MG tablet Take 8 mg by mouth if needed. pantoprazole (ProtoNix) 40 MG EC tablet Take 40 mg by mouth if needed. sennosides (Senokot) 8.6 MG tablet Take 8.6 mg by mouth in the morning and 8.6 mg in the evening. sucralfate (Carafate) 1 GM/10ML suspension Take 1 g by mouth if needed. traZODone (Desyrel) 100 MG tablet Take 1 tablet (100 mg) by mouth Nightly. 30 tablet 0 Trelegy Ellipta 200-62.5-25 MCG/ACT aerosol powder [DISCONTINUED] LORazepam (Ativan) 1 MG tablet Take 1 tablet (1 mg) by mouth every 6 hours as needed for anxiety. 60 tablet 0 [DISCONTINUED] traZODone (Desyrel) 100 MG tablet Take 1 tablet (100 mg) by mouth Nightly. 30 tablet 0 No current facility-administered medications on file prior to visit. Telephone call placed to patient. The identity and location of the patient was confirmed and informed consent for treatment through a remote examination was obtained. The patient's diagnosis was confirmed and necessity for prescribed drug was verified. Drug(s) to be refilled: Requested Prescriptions No prescriptions requested or ordered in this encounter The patient has underlying conditions or contraindications which preclude continuation of the medication at this time: No, Refill provided {Put your decision support here (Optional): [id number]: If the medication(s) being refilled is (are) a controlled substance please verify the following: The person is an active patient of a licensed practitioner who is a colleague of the provider Yes Drugs are being prescribed pursuant to an on-call or cross coverage agreement {Blank single:15210:: Yes, No, N/A OARRS report reviewed: Yes Referrals placed: N/A Follow-Up Care and Testing: No follow-ups on file. [facility] 36 Call received from lina lopes requesting a refill on her oxycodone. Upon chart review, it appears pt is due for refill. Pt states she has #5 left, she is taking 2 tablets every 4 hours, and she is getting good pain relief from current dosing. Pt confirms [facility] confirmed. [place] [id number] 12-30-2023 36 Reviewed oaars.eprescribed refills. [facility] 36 Confirmed patient Name and : Yes Medication name(s) and dose(s) requested: Lorazepam (Ativan) 1 MG Tablet Trazodone (Desyrel) 100 MG Tablet Approximate number of pills available in the home: Lorazepam- Completely out Trazodone- Completely out Confirmed and updated correct pharmacy: Yes Reminded patient of 3 business day refill policy on all medication refill requests: Yes Notified patient to call pharmacy to confirm prescription ready for pickup and to call office if not available within 3 business days: Yes Date of last appointment: 10/30/23 Date of next appointment: N/A [address] 12-12-2023 36 Chart reviewed. OARR S reviewed. Patient due for refill of trazodone, sent in refill. Prescription for Lorazepam can be picked up on 12/14 and prescription for Oxycodone can be picked up on 12/17. [place] [address] Confirmed patient Name and : Yes Medication name(s) and dose(s) requested: Lorazepam (Ativan) 1 MG Tablet Oxycodone (Roxicodone) 5 MG IR Tablet Trazodone (Desyrel) 100 MG Tablet Approximate number of pills available in the home: Ativan- 5 Tablets Left Oxycodone- 5 Tablets Left Trazodone- None left Confirmed and updated correct pharmacy: Yes Reminded patient of 3 business day refill policy on all medication refill requests: Yes Notified patient to call pharmacy to confirm prescription ready for pickup and to call office if not available within 3 business days: Yes Date of last appointment: 10/30/23 Date of next appointment: N/A [place] [address]on 11-25-2023 36 Reviewed oaars. Eprescribed oxycodone and ativan [place] [address] Confirmed patient Name and : Yes Medication name(s) and dose(s) requested: Oxycodone (Roxicodone) 5 MG IR Tablet Lorazepam (Ativan) 1 MG Tablet Approximate number of pills available in the home: Oxycodone-2 Tablets Left Ativan- 1 Tablet Left Confirmed and updated correct pharmacy: Yes Reminded patient of 3 business day refill policy on all medication refill requests: Yes Notified patient to call pharmacy to confirm prescription ready for pickup and to call office if not available within 3 business days: Yes Date of last appointment: 10/30/23 Date of next appointment: 12/04/[address] [facility] 36on 11-10-2023 36 Call to pt with update on oxycodone dosing. RN discussed Alka increased Oxycodone dose 5 mg to 5-10 mg every 4 hrs as needed. Pt able to repeat instructions back to this RN. RN encouraged pt to call with any further questions, concerns, or care needs. [facility] 36 Reviewed oaars. Will change oxycodone to 5-10mg po q 4h prn pain, and refill eprescribed to community pharmacy. Can you please call her and let her know of this medication change. Thanks [facility] 36 Call received from lina lopes with request for refill on pain medication. Pt states she is afraid to call refill line, as she didn't get a call back last time, and she is now down to only 1 days left of doses. Pt is requesting an increased dose, as she states he pain is still not very well controlled. RN discussed pain levels before and after dosing - pt reports pain level @ 9 before dosing, and pain level @ 5 with Oxycodone 5 mg. Rn discussed this info will be sent to Alka for review and RN will return call to pt upon refill being sent and to give any updates, as needed. Pt verbalizes understanding. 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 Affected short term memory, had to relearn things, locations. Past Surgical History: Past Surgical History: Procedure Laterality Date CATARACT EXTRACTION W/ INTRAOCULAR LENS IMPLANT Right 07/09/2021 SECTION (HISTORICAL) x2. Pfannenstiel incisions. COLONOSCOPY DILATION AND CURETTAGE OF UTERUS 12/19/2017 Dr Brittny [facility] ENDOMETRIAL BIOPSY IR CVC MEDIPORT PLACEMENT OTHER SURGICAL HISTORY 12/09/2019 Robotic Fe-Aortic Biopsy TONSILLECTOMY (HISTORICAL) TOTAL ABDOMINAL HYSTERECTOMY 01/19/2018 Robotic hysterectomy, BSO, right pelvic sentinel LNB, left pelvic lymphadenectomy-Dr. Khang Tapia [facility] TUBAL LIGATION UPPER GASTROINTESTINAL ENDOSCOPY Allergies: Allergies Allergen Reactions Morphine Anaphylaxis and Shortness of breath Codeine Rash and Nausea And Vomiting Other reaction(s): Other (See Comments), Upset Stomach Problem List: does not have any pertinent problems on file. Current Medication List: Current Outpatient Medications on File Prior to Visit Medication Sig Dispense Refill albuterol 108 (90 Base) MCG/ACT inhaler Inhale 90 each if needed. aspirin 81 MG chewable tablet Chew 81 mg daily. bisacodyl (Dulcolax) 5 MG EC tablet Take 10 mg by mouth if needed. brimonidine (AlphaGAN P) 0.2 % ophthalmic solution Administer 1 drop into both eyes Nightly. calcium carbonate (Os-Papito) 1250 (500 Ca) MG chewable tablet Chew 1 tablet if needed. cholecalciferol (Vitamin D-3) 50 MCG (2000 UT) capsule Take 1 capsule (50 mcg) by mouth in the morning. 30 capsule 2 dicyclomine (Bentyl) 10 MG capsule Take 10 mg by mouth if needed. DULoxetine (Cymbalta) [address] capsule Take 1 capsule (30 mg) by mouth 2 times daily. Do not crush or chew. 60 capsule 5 gabapentin (Neurontin) 300 MG capsule Take 1 capsule (300 mg) by mouth 3 times daily. 90 capsule 0 latanoprost (Xalatan) 0.005 % ophthalmic solution Administer 1 drop into both eyes Nightly. LORazepam (Ativan) 1 MG tablet Take 1 tablet (1 mg) by mouth every 6 hours as needed for anxiety. 60 tablet 0 LORazepam (Ativan) 1 MG tablet Take 1 tablet (1 mg) by mouth every 8 hours as needed for anxiety for up to 14 days. (Patient taking differently: Take 1 mg by mouth every 6 hours as needed for anxiety.) 30 tablet 0 metFORMIN XR (Glucophage-XR) 500 MG 24 hr tablet Take 1,000 mg by mouth in the morning and 1,000 mg in the evening. Misc. Devices (Sitz Bath) misc Use for pain relief as needed 1 each 0 Misc. Devices (Collins Bottle/Plastic 120mL) misc Use to clean area as needed 1 each 0 naloxone (Narcan) 4 mg/0.1 mL nasal spray Administer 4 mg into affected nostril(s) if needed. ondansetron (Zofran) 8 MG tablet Take 8 mg by mouth if needed. [] oxyCODONE (Roxicodone) 5 MG immediate release tablet Take 1 tablet (5 mg) by mouth every 6 hours as needed for moderate pain (4-6) or severe pain (7-10) for up to 5 days. 20 tablet 0 [] oxyCODONE (Roxicodone) 5 MG immediate release tablet Take 1 tablet (5 mg) by mouth every 6 hours as needed for severe pain (7-10) for up to 5 days. 15 tablet 0 pantoprazole (ProtoNix) 40 MG EC tablet Take 40 mg by mouth if needed. sennosides (Senokot) 8.6 MG tablet Take 8.6 mg by mouth in the morning and 8.6 mg in the evening. sucralfate (Carafate) 1 GM/10ML suspension Take 1 g by mouth if needed. traZODone (Desyrel) 100 MG tablet Take 1 tablet (100 mg) by mouth Nightly. 30 tablet 0 Trelegy Ellipta 200-62.5-25 MCG/ACT aerosol powder [DISCONTINUED] gabapentin (Neurontin) 300 MG capsule Take 1 capsule (300 mg) by mouth Nightly. 90 capsule 1 [DISCONTINUED] oxyCODONE (Roxicodone) 5 MG immediate release tablet Take 1 tablet (5 mg) by mouth every 6 hours as needed for severe pain (7-10) for up to 5 days. 15 tablet 0 [DISCONTINUED] sertraline (Zoloft) 100 MG tablet Take 1 tablet (100 mg) by mouth daily. (Patient taking differently: Take 100 mg by mouth Nightly.) 90 tablet 1 No current facility-administered medications on file prior to visit. Telephone call placed to patient. The identity and location of the patient was confirmed and informed consent for treatment through a remote examination was obtained. The patient's diagnosis was confirmed and necessity for prescribed drug was verified. Drug(s) to be refilled: Requested Prescriptions No prescriptions requested or ordered in this encounter The patient has underlying conditions or contraindications which preclude continuation of the medication at this time: No, (more content not included)... [facility] 36 Confirmed patient Name and : Yes Medication name(s) and dose(s) requested: Trazadone 100 mg tablet Oxycodone 5 mg IR tablet Lorezapam (ativan) 1mg tablet Approximate number of pills available in the home: 1 tab 0 tabs 0 tabs Confirmed and updated correct pharmacy: Yes Reminded patient of 3 business day refill policy on all medication refill requests: Yes Notified patient to call pharmacy to confirm prescription ready for pickup and to call office if not available within 3 business days: Yes Date of last appointment: 09/23/2023 Date of next appointment: Visit date not found [facility] Office Visiton 10-30-2023 Follow-up visit [id number] Danny Pink 1955 Date Provider Department Center 10/30/2023 [facility] None Family History Problem Relation Age of Onset Breast cancer Mother 90 Ovarian cancer Neg Hx Colon cancer Neg Hx Uterine cancer Neg Hx Family Status - Relation Status Age at Mother Neg Hx Level of Service:40053 [place] OFFICE/OUTPATIENT ESTABLISHED MOD MDM 30 MIN Reason for Visit and Comments: Pain [136] Fatigue [46] Shortness of Breath [433266] Depression [32] Anxiety [9] Constipation [271578] [facility] Follow-up visit [id number] Danny Pink 1955 Date Provider Department Center 10/30/2023 MALINDA SANTIZO [facility] DAIRY MANUFACTURING TECHNOLOGIST None Family History Problem Relation Age of Onset Breast cancer Mother 90 Ovarian cancer Neg Hx Colon cancer Neg Hx Uterine cancer Neg Hx Family Status - Relation Status Age at Mother Neg Hx Level of Service:95659 [place] POSTOP FOLLOW UP VISIT RELATED TO ORIGINAL PX Reason for Visit and Comments: Follow-up [774755] [facility] Progress Noteon 10-30-2023 Progress Note What is the most important item you want to discuss with your provider today? Not at this time Complete med rec line by line. Yes Do you need refills on any medications today? No Pharmacy confirmed in Med management section. Yes Normal [facility] Progress Note [facility] [address], [address] [place], [place] [id number] Visit type: new patient, consultation Reason for Visit: Danny Pink is a 68 y.o. female with chief complaint of Pain, Fatigue, Shortness of Breath, Depression, Anxiety, and Constipation Assessment and Plan Danny was seen today for pain, fatigue, shortness of breath, depression, anxiety and constipation. 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 Notes crushing bone pain in bilateral hips into legs and feet. On gabapentin 300 mg, but takes this intermittent for feet neuropathy. Will increase gabapentin to 300 mg po TID and start on cymbalta 30 mg daily. - DULoxetine (Cymbalta) [address] capsule; Take 1 capsule (30 mg) by mouth 2 times daily. Do not crush or chew. - Drug Monitor Panel 5 Screen, Urine ([facility]); Future Recurrent carcinoma of endometrium (HCC)- under care of Dr. Quiñonez, with multiple treatment lines and most recently simple partial vaginectomy. - Ambulatory referral to Palliative - gabapentin (Neurontin) 300 MG capsule; Take 1 capsule (300 mg) by mouth 3 times daily. - DULoxetine (Cymbalta) [address] capsule; Take 1 capsule (30 mg) by mouth 2 times daily. Do not crush or chew. - oxyCODONE (Roxicodone) 5 MG immediate release tablet; Take 1 tablet (5 mg) by mouth every 6 hours as needed for severe pain (7-10) for up to 5 days. - Drug Monitor Panel 5 Screen, Urine ([facility]); Future Endometrial cancer (CMS/HCC) (HCC)-see above - Ambulatory referral to Palliative Cancer associated pain- for vaginal pain s/p surgery- continue with oxycodone 5mg po q6 h prn pain. - gabapentin (Neurontin) 300 MG capsule; Take 1 capsule (300 mg) by mouth 3 times daily. - DULoxetine (Cymbalta) [address] capsule; Take 1 capsule (30 mg) by mouth 2 times daily. Do not crush or chew. - Drug Monitor Panel 5 Screen, Urine ([facility]); Future Anxiety associated with cancer diagnosis (HCC)- start on cymbalta. - oxyCODONE (Roxicodone) 5 MG immediate release tablet; Take 1 tablet (5 mg) by mouth every 6 hours as needed for severe pain (7-10) for up to 5 days. Orders Placed This Encounter Procedures Drug Monitor Panel 5 Screen, Urine ([facility]) Standing Status: Future Standing Expiration Date: 10/29/2024 Follow-up: 4 weeks Subjective Danny Pink is a 68 y.o. 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 Tolerated treatment well. Due for repeat imaging to assess response to treatment. PET ordered. Unfortunately, there appears to be a new isolated vaginal lesion. Had simple partial vaginectomyunder care of Dr. Quiñonez on 10/06/23. Reviewed DAIRY MANUFACTURING TECHNOLOGIST/ONC notes, previously on multiple lines of chemotherapy/immunoth erapy. Danny is seen today to establish care. 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 She notes that after intial chemotherapy carbo/taxol has been experiencing bone crushing, radiating pain in bilateral hips down into feet. She has been having oxycodone 5-10 mg prescribed for the last 4 years. Currently script is 5mg po q 6h prn pain, ome 30. She notes that this pain worsens at night, and causes her difficulty resting. Complains of tingeling in bilateral toes- for this uses gabapentin 300mg nightly. Notes difficulty with her asthma and SOB. Notes that she has trouble falling and staying asleep, feels like sometimes her trazodone doesn't help enough. Pain Assessment (If Pain Scale >0) Description: sharp and crushing Duration: year(s) Frequency:Daily Location: bones, hips into legs Alleviating Factors: pain medication Exacerbating Factors: unable to associate with any factor Effect:Change in Function and Interference with Activities, worst at night Phenix Symptom Assessment Score Phenix Symptom Assessment System Pain Score: 9 Tiredness Score: 9 Nausea Score: 2 Depression Score: 8 Anxiety Score: 8 Drowsiness Score: 9 Appetite Score: 4 Wellbeing Score: Best feeling of wellbeing Dyspnea Score: Worst possible shortness of breath Other Problem Score: 5 Assessed by:patient Review of Systems PCP: Donovan Hernandez Oncologist:Khang Current Therapies: s/p vaginal surgery Goals of care: Live Longer Code status: Full Code Advance directives: aware of documents Surrogate: Child Prognosis: unknown Spiritual assessment: No spiritual distress identified Bereavement and grief: Grief Issues Not Identified Social history: Marital status: single Children: 4 chilldren Living status: alone 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 Constitutional: Appearance: Normal appearance. She is normal weight. Comments: Flat mood HENT: Mouth/Throat: Rachelle (more content not included)... Normal [facility] Progress Note Chief Complaint Patient presents with Follow-up HISTORY OF THE PRESENT ILLNESS: Danny Pink is a pleasant 68 y.o. female with recurrent endometrial cancer. She has a history of stage IB, FIGO grade 2 endometrioid endometrial adenocarcinoma, +LVSI, +washings, MMR protein testing normal. She underwent robotic endometrial cancer staging on 01/19/2018. Met diagnostic criteria for high-intermediate risk of recurrence. Completed pelvic radiation on 04/27/18. Unfortunately, the patient complained of new onset of back pain in September 2019. She underwent a computed tomography scan of the abdomen and pelvis which showed an enlarged left periaortic lymph node. PET scan confirmed that this was a focus of FDG avidity. There were no other sites of metastatic disease on the PET scan. Management options were discussed with the patient at length. We elected to proceed with an attempt at surgical resection. She underwent attempted robotic resection of the left periaortic lymph node on 12/09/2019. Unfortunately, there was evidence of extracapsular extension of disease and the lymph node was matted and densely adherent to the abdominal aorta. There is no way to completely surgically resect the disease. Biopsies were obtained confirming the diagnosis. Patient was started on systemic chemotherapy with carboplatin and paclitaxel. Patient completed cycle #6 carbo/taxol on 04/19/2020. She was on a reduced dose of Taxol 135 mg/m2 due to arthralgias and myalgias. 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 I recommended 3 additional cycles of chemotherapy. Completed #9 cycles of carbo/taxol. Overall, she tolerated chemotherapy well. She does have arthralgias and myalgias that are better tolerated on the reduced dose of Taxol. Repeat PET 08/25/2020: IMPRESSION: There has been significant improvement of intensity of FDG accumulation within a mildly enlarged left periaortic lymph node when compared to the study from 06/16/2020. On the current examination, the node demonstrates mild FDG accumulation. Attention to this area is recommended on subsequent examinations. There are no new areas of abnormal FDG accumulation seen to suggest progression of malignancy. We discussed treatment options - continued carbo/taxol versus hormonal therapy. We switched to tamoxifen/megace. Patient was unable to tolerate hormonal therapy. When she was seen in the office in November 2020 there was a new vaginal lesion. Biopsy confirmed recurrent endometrial cancer. The patient was started on systemic chemotherapy with Keytruda and Lenvima. She was unable to tolerate Lenvima which was discontinued. She underwent a PET scan on 02/22/2021 to assess response to treatment which showed: IMPRESSION: There is fairly intense, abnormal FDG accumulation within a mildly enlarged left para-aortic lymph node, consistent with residual or recurrent malignancy. When compared to the examination dated 12/08/2020, both the size and intensity of FDG uptake within this node has increased. No new areas of abnormal FDG accumulation are identified. On examination, the periurethral lesion that was somewhat smaller in size. The decision was made to continue systemic immunotherapy with Keytruda and consider re-irradiation of the left periaortic lymph node. Received radiation therapy in [place] with Dr. Melendez. Treated from April 25 through May 29, 2021. Received 45 Gy to the periaortic lymph nodes with a simultaneous boost to 55 Gy to the gross disease. Overall, tolerated treatments well and was able to continue Keytruda during her radiation. Does have arthralgia/myalgias several days after Keytruda. Having a rash. Just on her face, happens about 1 week after the Keytruda. Recurrent urinary tract infections after Keytruda. We are treating with prophylactic Bactrim following treatment. PET 08/20/2021: IMPRESSION: Previously identified FDG avid left para-aortic lymph node on the study from 02/22/2021 has decreased in size and intensity of FDG accumulation. No new FDG avid lymphadenopathy is seen within the abdomen or pelvis. There is a new focus of increased FDG uptake within the perineum in the expected location of the vaginal vault or near the vaginal cuff. The intensity of uptake is suspicious for residual or recurrent malignancy. Referred to radiation oncology for interstitial brachytherapy at [facility]. Underwent treatment 12/2021. Post treatment reported blisters on the labia that were painful with drainage. Moist desquamation. Decided to discontinue Keytruda. MRI 04/17/2022: FINDINGS: Uterus: The uterus is surgically absent. The previously seen focus of signal abnormality with abnormal enhancement or restricted diffusion along the posterior wall of the vagina is present, with resolution of the previously seen restricted diffusi (more content not included)... [facility] 36on 10-27-2023 36 Prescription sent into patient pharmacy, OAARS report ran and reviewed. [facility] 36 Patient requesting a refill for gabapentin and oxycodone be sent to pharmacy on file, thank you [facility] 36on 10-21-2023 36 Name of caller: Myron Contact phone number: [phone] Relationship to Patient: [facility] Provider: Jame Boone Practice: [facility] DAIRY MANUFACTURING TECHNOLOGIST ONC Chief Complaint/Reason for Call: Myron stated a script for oxyCODONE (Roxicodone) 5 MG immediate release tablet was sent to the pharmacy and stated that patient got a fill for 28 days worth of oxyCODONE (Roxicodone) 10 MG immediate release tablet on 10/06/23. Myron stated he wanted to make sure the provider is aware. Please call Myron back to advise. Best time of day caller can be reached: Any Patient advised that office/PCP has 24-48 business hours to return their call: No [facility] 36 Refilled prescriptio n to patients pharmacy. OAARS report ran Normal [facility] 36 Patient returning missed call, please contact when able, thank you [facility] 36 Refilled Ativan to patient's pharmacy. OARRS report ran. I did call and leave patient a message regarding oxycodone prescription. Encourage patient to give the office a call back. Normal [facility] 36 Patient requesting Oxycodone and Lorazepam be sent to pharmacy on file, thank you Normal [facility] 36on 10-16-2023 36 Called pt with vaginal recurrence of disease. Pt to call office with any questions or concerns. Normal [facility] 36 ----- Message from Danny Sharma MD sent at 10/16/2023 2:53 PM EDT ----- Please call with results. This was not a surprise. Did for vaginal recurrence of disease. Thanks! Normal [facility] 36 Prescription sent to patients pharmacy. Normal [place] [address] Patient would like a refill for Trazodone be sent to pharmacy on file, thank you [facility] Laboratory - Chemistry and C hemistry - challengeon 10-06-2023 Glucose [Mass/Vol] 212 mg/dL High 70 - 100 mg/dL [facility] Glucose [Mass/Vol] 239 mg/dL High 70 - 100 mg/dL [facility] No Panel Informationon 10-05 Interpretation and review of laboratory results Abnormal [facility] Performed by: [facility], [address] [place] [address] CLIA ID: [id number] [facility] Interpretation and review of laboratory results Abnormal [facility] Performed by: [facility], [address] [place] [address] CLIA ID: [id number] [facility] Radiology Study observation (narrative) [facility] Rad[facility] Bone from skull base to mid-thigh W [id number] Brown 04-10-2023 There is an intensely FDG avid 1 cm nodule within the posterior aspect of the right upper lobe, consistent with residual or recurrent malignancy. Fatty infiltration of the liver and cholelithiasis noted incidentally. Report Dictated on Electronically Signed By: Ethan Tse MD Electronically Signed Date/Time: 04/10/2023 4:19 PM [facility] Patient Name: DANNY PINK : 1955 Exam Date/Time: 04/10/2023 11:34 Procedure: PET/CT SKULL BASE TO MID THIGH Ordering Provider: SHARMA ROBIN Reason For Exam: Uterine/cervical cancer, monitor PET/CT CLINICAL INDICATION: Endometrial cancer restaging. Previous radiation therapy and chemotherapy. Following the intravenous administration of 13.5 mCi of fluorine-18 fluorodeoxyglucose (FDG) a PET scan of the torso was acquired after an approximately one hour delay. Blood glucose level at the time of injection was 140 mg/dl. Contemporaneously, noncontrast axial CT images were obtained using low dose technique. The images were reconstructed in three orthogonal planes and digitally coregistered. The CT data was used for attenuation correction as well. Dose reduction was employed with automated exposure control. COMPARISON: PET/CT performed 09/06/2022, 04/19/2022 NECK AND CHEST: There is a noncalcified nodule measuring 1 cm within the posterior aspect of the right upper lobe on the low-dose CT images (image 74 of 304). This nodule demonstrates intense (maximal SUV 19) FDG accumulation consistent with malignancy. No additional FDG avid pulmonary nodules are identified. No FDG avid lymphadenopathy is seen within the neck or chest. A right-sided Mediport catheter is noted. ABDOMEN AND PELVIS: No abnormal FDG accumulation is seen within the abdomen or pelvis. On the low-dose CT images, fatty infiltration of the liver is noted. Cholelithiasis is present. MUSCULOSKELETAL: Unremarkable. No evidence of osseous metastatic disease. [facility] RADIOLOGY SYSTEM Ethan Tse MD - 04/10/2023 [facility] 1955 [id number] Exam Date/Time: 04/10/2023 11:34 Procedure: PET/CT SKULL BASE TO MID THIGH Ordering Provider: SHARMA ROBIN Reason For Exam: Uterine/cervical cancer, monitor PET/CT CLINICAL INDICATION: Endometrial cancer restaging. Previous radiation therapy and chemotherapy. Following the intravenous administration of 13.5 mCi of fluorine-18 fluorodeoxyglucose (FDG) a PET scan of the torso was acquired after an approximately one hour delay. Blood glucose level at the time of injection was 140 mg/dl. Contemporaneously, noncontrast axial CT images were obtained using low dose technique. The images were reconstructed in three orthogonal planes and digitally coregistered. The CT data was used for attenuation correction as well. Dose reduction was employed with automated exposure control. COMPARISON: PET/CT performed 09/06/2022, 04/19/2022 NECK AND CHEST: There is a noncalcified nodule measuring 1 cm within the posterior aspect of the right upper lobe on the low-dose CT images (image 74 of 304). This nodule demonstrates intense (maximal SUV 19) FDG accumulation consistent with malignancy. No additional FDG avid pulmonary nodules are identified. No FDG avid lymphadenopathy is seen within the neck or chest. A right-sided Mediport catheter is noted. ABDOMEN AND PELVIS: No abnormal FDG accumulation is seen within the abdomen or pelvis. On the low-dose CT images, fatty infiltration of the liver is noted. Cholelithiasis is present. MUSCULOSKELETAL: Unremarkable. No evidence of osseous metastatic disease. IMPRESSION: There is an intensely FDG avid 1 cm nodule within the posterior aspect of the right upper lobe, consistent with residual or recurrent malignancy. Fatty infiltration of the liver and cholelithiasis noted incidentally. Report Dictated on Electronically Signed By: Ethan Tse MD Electronically Signed Date/Time: 04/10/2023 4:19 PM EST [facility] Radiology Study observation (narrative) [facility] PET+CT Bone from skull base to mid-thigh W [id number] IVOrdered By: Ethan Tse on 04-10-2023 [facility] Absolute lymphocyte countOrd ered By: Alek Hernandez on 11-29-2022 Lymphocytes Auto (Unsp spec) [#/Vol] 0.47 10*3/uL 0.83-4.51 [facility] Basophil percentageOrdered B y: Alek Hernandez on 11-29-2022 Basophil percentage 25-50 SEEN /hpf 0-5 [facility] Basophils/100 WBC (Bld) 0.6 % 0-1 [facility] Bilirubin [Mass/Vol] 0.40 mg/dL 0.20-1.00 [facility] Comment on above: For patients on eltr ombopag therapy, use of Dimension [place] TBIL is not recommended. Chloride [Moles/Vol] 107 mmol/L 98-107 [facility] Cholesterol [Mass/Vol] 189 mg/dL <200 [facility] Comment on above: <200 mg/dL Desirable 200-240 mg/dL Borderline >240 mg/dL High Risk Eosinophils/100 WBC (Bld) 0.8 % 0-5 [facility] Glucose [Mass/Vol] 136 mg/dL 74-106 [facility] Comment on above: Fasting Glucose resu lt greater than or equal to 126 mg/dL suggests DIABETES MELLITUS per A.D.A. criteria. Neutrophils (Bld) [#/Vol] 4.1 10*3/uL 2.0-7.7 [facility] Neutrophils/100 WBC (Bld) 77.8 % 47-70 [facility] Potassium [Moles/Vol] 4.0 mmol/L 3.5-5.1 [facility] Protein [Mass/Vol] 7.3 g/dL 6.4-8.2 [facility] Sodium [Moles/Vol] 139 mmol/L 136-145 [facility] Triglyceride [Mass/Vol] 324 mg/dL <199 [facility] Comment on above: The drugs N-Acetylcy steine and Metamizole may falsely depress this assay.Serum Triglycerides Reference Interval Normal <150 mg/dL Borderline high 150 - 199 mg/dL High 200 - 499 mg/dL Very High > or = 500 mg/dL WBC (Bld) [#/Vol] 5.3 10*3/uL 4.4-11.0 [facility] Bilirubin Test strip Ql (U)O rdered By: Alek Hernandez on 11-29-2022 Bilirubin Ql (U) Negative Negative [facility] Blood erythrocytes count (nu mber/volume)Ordered By: Alek Hernandez on 11-29-2022 RBC (Bld) [#/Vol] 4.40 10*6/uL 4.2-5.4 [facility] Blood hemoglobin measurement (mass/volume)Ordered By: Alek Hernandez on 11-29-2022 Hemoglobin (Bld) [Mass/Vol] 12.9 g/dL 12.0-15.0 [facility] Blood lymphocytes/100 leukoc ytesOrdered By: Alek Hernandez on 11-29-2022 Lymphocytes/100 WBC (Bld) 8.9 % 19-41 [facility] Blood manual differential co mment interpretation (narrative result)Ordered By: Alek Hernandez on 11-29-2022 Manual differential comment Asa (Bld) [Interp] COMMENT [facility] Comment on above: LYMPHOPENIA. Blood monocytes/100 leukocyt esOrdered By: Alek Hernandez on 11-29-2022 Monocytes/100 WBC (Bld) 9.8 % 0-10 [facility] Blood platelet mean volumeOr dered By: Alek Hernandez on 11-29-2022 Platelet mean volume (Bld) [Entitic vol] 8.8 fL 6.2-12.0 [facility] Determination of erythrocyte mean corpuscular volume (MCV)Ordered By: Alek Hernandez on 11-29-2022 MCV (RBC) [Entitic vol] 90.9 fL 81-99 [facility] Erythrocyte sedimentation ra teOrdered By: Alek Hernandez on 11-29-2022 ESR (Bld) [Velocity] 22 mm/h 0-30 [facility] Hematocrit Auto (Bld) [Volum e fraction]Ordered By: Alek Hernandez on 11-29-2022 Hematocrit (Bld) [Volume fraction] 40.0 % 37-47 [facility] Ketones Test strip Ql (U)Ord ered By: Alek Hernandez on 11-29-2022 Ketones Ql (U) Negative Negative [facility] Laboratory - Chemistry and C hemistry - challengeOrdered By: Alek Hernandez on 11-29-2022 ALP [Catalytic activity/Vol] 91 U/L 45-117 [facility] ALT [Catalytic activity/Vol] 37 U/L 13-56 [facility] CO2 [Moles/Vol] 26.0 mmol/L 21.0-32.0 [facility] Cobalamin (Vitamin B12) [Mass/Vol] 321 pg/mL 211-911 [facility] Globulin (S) [Mass/Vol] 3.8 g/dL 2.2-4.2 [facility] Urea nitrogen/Creatinine [Mass ratio] 19.0 mg/mg 10-20 [facility] Laboratory - Hematology and Cell countsOrdered By: Alek Hernandez on 11-29-2022 Erythrocyte distribution width (RBC) [Entitic vol] 44.2 fL 35.1-43.9 [facility] Erythrocyte distribution width (RBC) [Ratio] 13.3 % 11.6-14.6 [facility] Immature granulocytes/100 WBC (Bld) 2.100 % 0.0-0.9 [facility] Comment on above: IG% - Immature Granu locytes (promyelocytes, myelocytes and metamyelocytes) > 1% indicates that a LEFT SHIFT is Present. MCH (RBC) [Entitic mass] 29.3 pg 27.0-32.0 [facility] Nucleated RBC/100 WBC (Bld) [Ratio] 0 % 0-5 [facility] MCHC Auto (RBC) [Mass/Vol]Or dered By: Alek Hernandez on 11-29-2022 MCHC (RBC) [Mass/Vol] 32.3 g/dL 32-36 [facility] Mucus LM Ql (Urine sed)Order ed By: Alek Hernandez on 11-29-2022 Mucus Ql (Urine sed) 0 SEEN /hpf [facility] Nitrite Test strip Ql (U)Ord ered By: Alek Hernandez on 11-29-2022 Nitrite Ql (U) Negative Negative [facility] No Panel InformationOrdered By: Alek Hernandez on 11-29-2022 Estimated GFR (MDRD) Amer 94 mL/min >60 [facility] Comment on above: GFR Calc Estimated GFR (MDRD) Non-Af Amer 77 mL/min >60 [facility] Comment on above: Non- GFR Calc Thyroid Stimulating Hormone (TSH) 1.83 uIU/mL 0.358-3.74 [facility] Vitamin D 25-Hydroxy 24.5 ng/mL [facility] Comment on above: Vitamin D 25(OH) Sta tus Range Deficiency <20 ng/mL (50nmol/L) Insufficiency 20 - 30 ng/mL (50 - 75 nmol/L) Sufficiency 30 - 100 ng/mL (75 - 250 nmol/L) Toxicity >100 ng/mL (>250 nmol/L) Platelets bldOrdered By: Dennys Hernandez on 11-29-2022 Platelets (Bld) [#/Vol] 279 10*3/uL 150-450 [facility] Protein Test strip Ql (U)Ord ered By: Alek Hernandez on 11-29-2022 Protein Ql (U) 30 mg/dl Negative [facility] Serum or plasma C reactive p rotein measurement (mass/volume)Ordered By: Alek Hernandez on 11-29-2022 CRP [Mass/Vol] 12.80 mg/L 0.0-3.0 [facility] Comment on above: C-Reactive Protein ( CRP) provides useful information for thediagnosis, therapy and monitoring of inflammatory processesand associated diseases. For the evaluation of Relative Riskfor Cardiovascular Disease, a High Sensitivity CRP (HSCRP)should be ordered. Serum or plasma albumin julio urement (mass/volume)Ordered By: Alek Hernandez on 11-29-2022 Albumin [Mass/Vol] 3.5 g/dL 3.2-5.0 [facility] Serum or plasma albumin/glob ulin mass ratioOrdered By: Alek Hernandez on 11-29-2022 Albumin/Globulin [Mass ratio] 0.9 {ratio} 0.9-2.4 [facility] Serum or plasma calcium julio urement (mass/volume)Ordered By: Alek Hernandez on 11-29-2022 Calcium [Mass/Vol] 9.3 mg/dL 8.5-10.1 [facility] Serum or plasma cholesterol in HDL measurement (mass/volume)Ordered By: Alek Hernandez on 11-29-2022 Cholesterol in HDL [Mass/Vol] 47 mg/dL >40 [facility] Comment on above: The drugs N-Acetylcy steine and Metamizole may falsely depress this assay. Reference Range HDL <40 mg/dL Low HDL Cholesterol HDL >or= 60 mg/dL High HDL Cholesterol Serum or plasma cholesterol in VLDL measurement (mass/volume)Ordered By: Alek Hernandez on 11-29-2022 Cholesterol in VLDL [Mass/Vol] 65 mg/dL 5-40 [facility] Serum or plasma cortisol sarah surement (mass/volume)Ordered By: Alek Hernandez on 11-29-2022 Cortisol [Mass/Vol] 29.80 ug/dL 3.44-22.45 [facility] Comment on above: Adult (AM) 5.27 - 22 .45 ug/dL Adult (PM) 3.44 - 16.76 ug/dLPlease note revised CORTISOL reference range effective 2019. Serum or plasma creatinine m easurement (mass/volume)Ordered By: Alek Hernandez on 11-29-2022 Creatinine [Mass/Vol] 0.79 mg/dL 0.55-1.02 [facility] Comment on above: The validity of the calculated GFR & GFRAA in patients over 70 years has not been determined. Clinical correlation is essential. Serum or plasma low density lipoprotein (LDL) cholesterol measurement (mass/volume)Ordered By: Alek Hernandez on 11-29-2022 Cholesterol in LDL [Mass/Vol] 77 mg/dL 0-130 [facility] Serum or plasma urea nitroge n measurement (mass/volume)Ordered By: Alek Hernandez on 11-29-2022 Urea nitrogen [Mass/Vol] 15 mg/dL 7-18 [facility] Squamous epithelial cells de tection in urine sediment by light microscopyOrdered By: Alek Hernandez on 11-29-2022 Epithelial cells.squamous LM Ql (Urine sed) 0-5 SEEN /hpf 5-10 [facility] Thin prep Papanicolaou smear with manual screeningOrdered By: Alek Hernandez on 11-29-2022 Thin prep Papanicolaou smear with manual screening 25 U/L 15-37 [facility] Thin prep Papanicolaou smear with manual screening 6 5-15 [facility] Urine blood detectionOrdered By: Alek Hernandez on 11-29-2022 RBC Ql (U) 10 /ul Negative [facility] RBC Ql (U) 0-5 SEEN /hpf 0-5 [facility] Urine clarityOrdered By: Dennys Hernandez on 11-29-2022 Clarity (U) Sl. Cloudy Clear [facility] Urine color determinationOrd ered By: Alek Hernandez on 11-29-2022 Color (U) Yellow Yellow [facility] Urine glucose detectionOrder ed By: Alek Hernandez on 11-29-2022 Glucose Ql (U) Normal mg/dl Normal [facility] Urine leukocyte esterase det ection by dipstickOrdered By: Alek Hernandez on 11-29-2022 Leukocyte esterase Test strip Ql (U) 500 /ul Negative [facility] Urine pHOrdered By: Sara Hernandez on 11-29-2022 pH (U) 5.0 [pH] 5.0 - 8.0 [facility] Urine sediment bacteria coun t by microscopy (number/high power field)Ordered By: Alek Hernandez on 11-29-2022 Bacteria LM.HPF (Urine sed) [#/Area] 1 /[HPF] None Seen [facility] Urine specific gravity measu rementOrdered By: Alek Hernandez on 11-29-2022 Specific gravity (U) [Rel density] 1.020 1.002-1.030 [facility] Urobilinogen Auto test strip Ql (U)Ordered By: Alek Hernandez on 11-29-2022 Urobilinogen Ql (U) Normal mg/dl Normal [facility] Basic metabolic 1998 panelon 08-19-2022 Anion gap [Moles/Vol] 8 mmol/L 3 - 13 mmol/L [facility] Calcium [Mass/Vol] 9.1 mg/dL 8.4 - 10. 4 mg/dL [facility] Chloride [Moles/Vol] 105 mmol/L 98 - 10 7 mmol/L [facility] CO2 [Moles/Vol] 22 mmol/L 22 - 30 mmol/L [facility] Creatinine [Mass/Vol] 0.73 mg/dL 0.52 - 1.04 mg/dL [facility] GFR/1.73 sq M.predicted MDRD (S/P/Bld) [Vol rate/Area] - PINF [facility] Comment on above: Calculation based on the Chronic Kidney Disease Epidemiology Collaboration (CKD-EPI) equation refit without adjustment for race Glucose [Mass/Vol] 102 mg/dL High 70 - 100 mg/dL [facility] Interpretation and review of laboratory results Abnormal [facility] Potassium [Moles/Vol] 5.0 mmol/L 3.5 - 5.1 mmol/L [facility] Sodium [Moles/Vol] 135 mmol/L 135 - 145 mmol/L [facility] Urea nitrogen [Mass/Vol] 20 mg/dL High 7 - 17 mg/dL [facility] Slightly Hemolyzed. Interpret {TESTS AFFECTED BY SLIGHT HEMOLYSIS:33192} with caution. [facility] CBC panel Auto (Bld)Ordered By: Vignesh Sanchez on 08-19-2022 Erythrocyte distribution width (RBC) [Ratio] 14.7 % High 11.5 - 14.5 % [facility] Hematocrit (Bld) [Volume fraction] 37.6 % 35.0 - 47.0 % [facility] Hemoglobin (Bld) [Mass/Vol] 12.3 g/dL 11.7 - 16.0 g/dL [facility] Interpretation and review of laboratory results Abnormal [facility] MCH (RBC) [Entitic mass] 29.5 pg 26.0 - 34.0 pg [facility] MCHC (RBC) [Mass/Vol] 32.8 % 32.0 - 36.0 % [facility] MCV (RBC) [Entitic vol] 89.8 fL 80.0 - 98.0 fL [facility] Platelet mean volume (Bld) [Entitic vol] 6.2 fL Low 7.4 - 12.4 fL [facility] Platelets (Bld) [#/Vol] 223 10*3/uL 140 - 440 10*3/uL [facility] RBC (Bld) [#/Vol] 4.19 10*6/uL 3.8 - 5.20 10*6/uL [facility] WBC (Bld) [#/Vol] 7.4 10*3/uL 3.6 - 10.7 10*3/uL [facility] Laboratory - Chemistry and C hemistry - challengeon 08-19-2022 Glucose [Mass/Vol] 128 mg/dL High 70 - 100 mg/dL [facility] Glucose [Mass/Vol] 112 mg/dL High 70 - 100 mg/dL [facility] No Panel Informationon 08-19 Interpretation and review of laboratory results Abnormal [facility] Performed by: [facility], [address] [place] [id number] CLIA ID: [id number] [facility] Interpretation and review of laboratory results Abnormal [facility] Performed by: [facility], [address] [place] [id number] CLIA ID: [id number] [facility] Absolute lymphocyte counton 01-09-2022 Lymphocytes Auto (Unsp spec) [#/Vol] 0.31 10*3/uL 0.83-4.51 [facility] Work Phone: Basophil percentageon 2021 Basophils/100 WBC (Bld) 0.6 % 0-1 [facility] Work Phone: Bilirubin [Mass/Vol] 0.40 mg/dL 0.20-1.00 [facility] Work Phone: Comment on above: For patients on eltr ombopag therapy, use of Dimension [place] TBIL is not recommended. Chloride [Moles/Vol] 106 mmol/L 98-107 [facility] Work Phone: Eosinophils/100 WBC (Bld) 0.4 % 0-5 [facility] Work Phone: Glucose [Mass/Vol] 134 mg/dL 74-106 [facility] Work Phone: Comment on above: Fasting Glucose resu lt greater than or equal to 126 mg/dL suggests DIABETES MELLITUS per A.D.A. criteria. Neutrophils (Bld) [#/Vol] 4.2 10*3/uL 2.0-7.7 [facility] Work Phone: Neutrophils/100 WBC (Bld) 78.5 % 47-70 [facility] Work Phone: Potassium [Moles/Vol] 3.9 mmol/L 3.5-5.1 [facility] Work Phone: Protein [Mass/Vol] 7.4 g/dL 6.4-8.2 [facility] Work Phone: Sodium [Moles/Vol] 141 mmol/L 136-145 [facility] Work Phone: WBC (Bld) [#/Vol] 5.4 10*3/uL 4.4-11.0 [facility] Work Phone: Blood erythrocytes count (nu mber/volume)on 01-09-2022 RBC (Bld) [#/Vol] 4.06 10*6/uL 4.2-5.4 [facility] Work Phone: Blood hemoglobin measurement (mass/volume)on 01-09-2022 Hemoglobin (Bld) [Mass/Vol] 12.3 g/dL 12.0-15.0 [facility] Work Phone: Blood lymphocytes/100 leukoc yteson 01-09-2022 Lymphocytes/100 WBC (Bld) 5.7 % 19-41 [facility] Work Phone: Blood manual differential co mment interpretation (narrative result)on 01-09-2022 Manual differential comment Asa (Bld) [Interp] SCANNED [facility] Work Phone: Blood monocytes/100 leukocyt eson 01-09-2022 Monocytes/100 WBC (Bld) 13.9 % 0-10 [facility] Work Phone: Blood platelet mean volumeon 01-09-2022 Platelet mean volume (Bld) [Entitic vol] 9.1 fL 6.2-12.0 [facility] Work Phone: Determination of erythrocyte mean corpuscular volume (MCV)on 01-09-2022 MCV (RBC) [Entitic vol] 92.1 fL 81-99 [facility] Work Phone: Hematocrit Auto (Bld) [Volum e fraction]on 01-09-2022 Hematocrit (Bld) [Volume fraction] 37.4 % 37-47 [facility] Work Phone: Laboratory - Chemistry and C hemistry - challengeon 01-09-2022 ALP [Catalytic activity/Vol] 107 U/L 45-117 [facility] Work Phone: ALT [Catalytic activity/Vol] 31 U/L 13-56 [facility] Work Phone: [phone] CO2 [Moles/Vol] 22.0 mmol/L 21.0-32.0 [facility] Work Phone: Globulin (S) [Mass/Vol] 3.9 g/dL 2.2-4.2 [facility] Work Phone: Urea nitrogen/Creatinine [Mass ratio] 15.4 mg/mg 10-20 [facility] Work Phone: Laboratory - Hematology and Cell countson 01-09-2022 Erythrocyte distribution width (RBC) [Entitic vol] 46.7 fL 35.1-43.9 [facility] Work Phone: [phone] Erythrocyte distribution width (RBC) [Ratio] 13.8 % 11.6-14.6 [facility] Work Phone: [phone] Immature granulocytes/100 WBC (Bld) 0.900 % 0.0-0.9 [facility] Work Phone: [phone] Comment on above: IG% - Immature Granu locytes (promyelocytes, myelocytes and metamyelocytes) > 1% indicates that a LEFT SHIFT is Present. MCH (RBC) [Entitic mass] 30.3 pg 27.0-32.0 [facility] Work Phone: [phone] Nucleated RBC/100 WBC (Bld) [Ratio] 0 % 0-5 [facility] Work Phone: [phone] MCHC Auto (RBC) [Mass/Vol]on 01-09-2022 MCHC (RBC) [Mass/Vol] 32.9 g/dL 32-36 [facility] Work Phone: No Panel Informationon 01-09 Estimated GFR (MDRD) Amer 68 mL/min >60 [facility] Work Phone: Comment on above: GFR Calc Estimated GFR (MDRD) Non-Af Amer 56 mL/min >60 [facility] Work Phone: [phone] Comment on above: Non- GFR Calc Thyroid Stimulating Hormone (TSH) 2.01 uIU/mL 0.358-3.74 [facility] Work Phone: Platelets bldon 01-09-2022 Platelets (Bld) [#/Vol] 257 10*3/uL 150-450 [facility] Work Phone: [phone] Serum or plasma albumin julio urement (mass/volume)on 01-09-2022 Albumin [Mass/Vol] 3.5 g/dL 3.2-5.0 [facility] Work Phone: [phone] Serum or plasma albumin/glob ulin mass ratioon 01-09-2022 Albumin/Globulin [Mass ratio] 0.9 {ratio} 0.9-2.4 [facility] Work Phone: [phone] Serum or plasma calcium julio urement (mass/volume)on 01-09-2022 Calcium [Mass/Vol] 9.4 mg/dL 8.5-10.1 [facility] Work Phone: [phone] Serum or plasma creatinine m easurement (mass/volume)on 01-09-2022 Creatinine [Mass/Vol] 1.04 mg/dL 0.55-1.02 [facility] Work Phone: Comment on above: The validity of the calculated GFR & GFRAA in patients over 70 years has not been determined. Clinical correlation is essential. Serum or plasma urea nitroge n measurement (mass/volume)on 01-09-2022 Urea nitrogen [Mass/Vol] 16 mg/dL 7-18 [facility] Work Phone: Thin prep Papanicolaou smear with manual screeningon 01-09-2022 Thin prep Papanicolaou smear with manual screening 18 U/L 15-37 [facility] Work Phone: [phone] Thin prep Papanicolaou smear with manual screening 13 5-15 [facility] Work Phone: Absolute lymphocyte counton 11-28-2021 Lymphocytes Auto (Unsp spec) [#/Vol] 0.40 10*3/uL 0.83-4.51 [facility] Work Phone: Automated blood hematocrit ( percentage)on 11-28-2021 Hematocrit (Bld) [Volume fraction] 36.8 % 37-47 [facility] Work Phone: Basophil percentageon 2021 Basophils/100 WBC (Bld) 0.5 % 0-1 [facility] Work Phone: [phone] Bilirubin [Mass/Vol] 0.20 mg/dL 0.20-1.00 [facility] Work Phone: Comment on above: For patients on eltr ombopag therapy, use of Dimension [place] TBIL is not recommended. Chloride [Moles/Vol] 107 mmol/L 98-107 [facility] Work Phone: Eosinophils/100 WBC (Bld) 2.6 % 0-5 [facility] Work Phone: Glucose [Mass/Vol] 178 mg/dL 74-106 [facility] Work Phone: Comment on above: Fasting Glucose resu lt greater than or equal to 126 mg/dL suggests DIABETES MELLITUS per A.D.A. criteria. Neutrophils (Bld) [#/Vol] 5.0 10*3/uL 2.0-7.7 [facility] Work Phone: Neutrophils/100 WBC (Bld) 77.6 % 47-70 [facility] Work Phone: Potassium [Moles/Vol] 3.9 mmol/L 3.5-5.1 [facility] Work Phone: Protein [Mass/Vol] 7.0 g/dL 6.4-8.2 [facility] Work Phone: Sodium [Moles/Vol] 139 mmol/L 136-145 [facility] Work Phone: WBC (Bld) [#/Vol] 6.5 10*3/uL 4.4-11.0 [facility] Work Phone: Blood erythrocytes count (nu mber/volume)on 11-28-2021 RBC (Bld) [#/Vol] 4.05 10*6/uL 4.2-5.4 [facility] Work Phone: Blood hemoglobin measurement (mass/volume)on 11-28-2021 Hemoglobin (Bld) [Mass/Vol] 12.3 g/dL 12.0-15.0 [facility] Work Phone: Blood lymphocytes/100 leukoc yteson 11-28-2021 Lymphocytes/100 WBC (Bld) 6.2 % 19-41 [facility] Work Phone: Blood manual differential co mment interpretation (narrative result)on 11-28-2021 Manual differential comment Asa (Bld) [Interp] SCANNED [facility] Work Phone: Blood monocytes/100 leukocyt eson 11-28-2021 Monocytes/100 WBC (Bld) 12.2 % 0-10 [facility] Work Phone: Blood platelet mean volumeon 11-28-2021 Platelet mean volume (Bld) [Entitic vol] 9.0 fL 6.2-12.0 [facility] Work Phone: CBC with Differentialon 11-19 WBC (Bld) [#/Vol] 6.5 10^3/mL [facility] Work Phone: Comment on above: ANC 5000 Comprehensive Metabolic Pane eric 11-28-2021 ALP (Bld) [Catalytic activity/Vol] 88 U/L [facility] Work Phone: Anion gap [Moles/Vol] 7 mmol/L [facility] Work Phone: AST [Catalytic activity/Vol] 20 U/L [facility] Work Phone: Bilirubin [Mass/Vol] 0.2 mg/dL 0.1 - 1 .4 mg/dL [facility] Work Phone: CO2 [Moles/Vol] 25 mmol/L [facility] Work Phone: Gfr Calculated [facility] Work Phone: Urea nitrogen (BldV) [Mass/Vol] 14 mg/dL [facility] Work Phone: Determination of erythrocyte mean corpuscular volume (MCV)on 11-28-2021 MCV (RBC) [Entitic vol] 90.9 fL 81-99 [facility] Work Phone: Laboratory - Chemistry and C hemistry - challengeon 11-28-2021 ALP [Catalytic activity/Vol] 88 U/L 45-117 [facility] Work Phone: ALT [Catalytic activity/Vol] 32 U/L 13-56 [facility] Work Phone: CO2 [Moles/Vol] 25.0 mmol/L 21.0-32.0 [facility] Work Phone: Globulin (S) [Mass/Vol] 3.7 g/dL 2.2-4.2 [facility] [facility] Work Phone: Urea nitrogen/Creatinine [Mass ratio] 14.4 mg/mg 10-20 [facility] Work Phone: Laboratory - Hematology and Cell countson 11-28-2021 Erythrocyte distribution width (RBC) [Entitic vol] 46.4 fL 35.1-43.9 [facility] Work Phone: Erythrocyte distribution width (RBC) [Ratio] 13.9 % 11.6-14.6 [facility] Work Phone: Immature granulocytes/100 WBC (Bld) 0.900 % 0.0-0.9 [facility] Work Phone: Comment on above: IG% - Immature Granu locytes (promyelocytes, myelocytes and metamyelocytes) > 1% indicates that a LEFT SHIFT is Present. MCH (RBC) [Entitic mass] 30.4 pg 27.0-32.0 [facility] Work Phone: Nucleated RBC/100 WBC (Bld) [Ratio] 0 % 0-5 [facility] Work Phone: MCHC Auto (RBC) [Mass/Vol]on 11-28-2021 MCHC (RBC) [Mass/Vol] 33.4 g/dL 32-36 [facility] Work Phone: No Panel Informationon 11-28 Estimated GFR (MDRD) Amer 74 mL/min >60 [facility] Work Phone: Comment on above: GFR Calc Estimated GFR (MDRD) Non-Af Amer 61 mL/min >60 [facility] Work Phone: Comment on above: Non- GFR Calc [facility] Work Phone: Platelets bldon 11-28-2021 Platelets (Bld) [#/Vol] 278 10*3/uL 150-450 [facility] Work Phone: [phone] Serum or plasma albumin julio urement (mass/volume)on 11-28-2021 Albumin [Mass/Vol] 3.3 g/dL 3.2-5.0 [facility] Work Phone: Serum or plasma albumin/glob ulin mass ratioon 11-28-2021 Albumin/Globulin [Mass ratio] 0.9 {ratio} 0.9-2.4 [facility] Work Phone: Serum or plasma calcium julio urement (mass/volume)on 11-28-2021 Calcium [Mass/Vol] 8.9 mg/dL 8.5-10.1 [facility] Work Phone: [phone] Serum or plasma creatinine m easurement (mass/volume)on 11-28-2021 Creatinine [Mass/Vol] 0.97 mg/dL 0.55-1.02 [facility] Work Phone: [phone] Comment on above: The validity of the calculated GFR & GFRAA in patients over 70 years has not been determined. Clinical correlation is essential. Serum or plasma urea nitroge n measurement (mass/volume)on 11-28-2021 Urea nitrogen [Mass/Vol] 14 mg/dL 7-18 [facility] Work Phone: Thin prep Papanicolaou smear with manual screeningon 11-28-2021 Thin prep Papanicolaou smear with manual screening 20 U/L 15-37 [facility] Work Phone: [phone] Thin prep Papanicolaou smear with manual screening 7 5-15 [facility] Work Phone: [phone] Absolute lymphocyte counton 10-17-2021 Lymphocytes Auto (Unsp spec) [#/Vol] 0.34 10*3/uL 0.83-4.51 [facility] Work Phone: [phone] Basophil percentageon 2021 Basophils/100 WBC (Bld) 0.5 % 0-1 [facility] Work Phone: [phone] Bilirubin [Mass/Vol] 0.30 mg/dL 0.20-1.00 [facility] Work Phone: Comment on above: For patients on eltr ombopag therapy, use of Dimension [place] TBIL is not recommended. Chloride [Moles/Vol] 108 mmol/L 98-107 [facility] Work Phone: Eosinophils/100 WBC (Bld) 0.4 % 0-5 [facility] Work Phone: Glucose [Mass/Vol] 123 mg/dL 74-106 [facility] Work Phone: Comment on above: Fasting Glucose resu lt from 100 to 125 mg/dL suggests IMPAIRED HOMEOSTASIS per A.D.A. criteria. Neutrophils (Bld) [#/Vol] 6.4 10*3/uL 2.0-7.7 [facility] Work Phone: Neutrophils/100 WBC (Bld) 83.6 % 47-70 [facility] Work Phone: Potassium [Moles/Vol] 3.9 mmol/L 3.5-5.1 [facility] Work Phone: Protein [Mass/Vol] 7.0 g/dL 6.4-8.2 [facility] Work Phone: Sodium [Moles/Vol] 139 mmol/L 136-145 [facility] Work Phone: WBC (Bld) [#/Vol] 7.7 10*3/uL 4.4-11.0 [facility] Work Phone: Blood erythrocytes count (nu mber/volume)on 10-17-2021 RBC (Bld) [#/Vol] 4.14 10*6/uL 4.2-5.4 [facility] Work Phone: Blood hemoglobin measurement (mass/volume)on 10-17-2021 Hemoglobin (Bld) [Mass/Vol] 12.5 g/dL 12.0-15.0 [facility] Work Phone: Blood lymphocytes/100 leukoc yteson 10-17-2021 Lymphocytes/100 WBC (Bld) 4.4 % 19-41 [facility] Work Phone: Blood manual differential co mment interpretation (narrative result)on 10-17-2021 Manual differential comment Asa (Bld) [Interp] SCANNED [facility] Work Phone: [phone] Comment on above: LYMPHOPENIA NOTED Blood monocytes/100 leukocyt eson 10-17-2021 Monocytes/100 WBC (Bld) 10.2 % 0-10 [facility] Work Phone: Blood platelet mean volumeon 10-17-2021 Platelet mean volume (Bld) [Entitic vol] 9.2 fL 6.2-12.0 [facility] Work Phone: [phone] Determination of erythrocyte mean corpuscular volume (MCV)on 10-17-2021 MCV (RBC) [Entitic vol] 89.4 fL 81-99 [facility] Work Phone: Hematocrit Auto (Bld) [Volum e fraction]on 10-17-2021 Hematocrit (Bld) [Volume fraction] 37.0 % 37-47 [facility] Work Phone: Laboratory - Chemistry and C hemistry - challengeon 10-17-2021 ALP [Catalytic activity/Vol] 85 U/L 45-117 [facility] Work Phone: ALT [Catalytic activity/Vol] 27 U/L 13-56 [facility] Work Phone: [phone] CO2 [Moles/Vol] 24.0 mmol/L 21.0-32.0 [facility] Work Phone: [phone] Globulin (S) [Mass/Vol] 3.6 g/dL 2.2-4.2 [facility] Work Phone: [phone] Urea nitrogen/Creatinine [Mass ratio] 16.9 mg/mg 10-20 [facility] Work Phone: [phone] Laboratory - Hematology and Cell countson 10-17-2021 Erythrocyte distribution width (RBC) [Entitic vol] 41.3 fL 35.1-43.9 [facility] Work Phone: [phone] Erythrocyte distribution width (RBC) [Ratio] 12.6 % 11.6-14.6 [facility] Work Phone: [phone] Immature granulocytes/100 WBC (Bld) 0.900 % 0.0-0.9 [facility] Work Phone: [phone] Comment on above: IG% - Immature Granu locytes (promyelocytes, myelocytes and metamyelocytes) > 1% indicates that a LEFT SHIFT is Present. MCH (RBC) [Entitic mass] 30.2 pg 27.0-32.0 [facility] Work Phone: [phone] Nucleated RBC/100 WBC (Bld) [Ratio] 0 % 0-5 [facility] Work Phone: [phone] MCHC Auto (RBC) [Mass/Vol]on 10-17-2021 MCHC (RBC) [Mass/Vol] 33.8 g/dL 32-36 [facility] Work Phone: [phone] No Panel Informationon 10-17 Estimated GFR (MDRD) Amer 76 mL/min >60 [facility] Work Phone: [phone] Comment on above: GFR Calc Estimated GFR (MDRD) Non-Af Amer 63 mL/min >60 [facility] Work Phone: [phone] Comment on above: Non- GFR Calc Thyroid Stimulating Hormone (TSH) 1.52 uIU/mL 0.358-3.74 [facility] Work Phone: [phone] Platelets bldon 10-17-2021 Platelets (Bld) [#/Vol] 277 10*3/uL 150-450 [facility] Work Phone: [phone] Serum or plasma albumin julio urement (mass/volume)on 10-17-2021 Albumin [Mass/Vol] 3.4 g/dL 3.2-5.0 [facility] Work Phone: [phone] Serum or plasma albumin/glob ulin mass ratioon 10-17-2021 Albumin/Globulin [Mass ratio] 0.9 {ratio} 0.9-2.4 [facility] Work Phone: Serum or plasma calcium julio urement (mass/volume)on 10-17-2021 Calcium [Mass/Vol] 9.3 mg/dL 8.5-10.1 [facility] Work Phone: Serum or plasma creatinine m easurement (mass/volume)on 10-17-2021 Creatinine [Mass/Vol] 0.95 mg/dL 0.55-1.02 [facility] Work Phone: Comment on above: The validity of the calculated GFR & GFRAA in patients over 70 years has not been determined. Clinical correlation is essential. Serum or plasma urea nitroge n measurement (mass/volume)on 10-17-2021 Urea nitrogen [Mass/Vol] 16 mg/dL 7-18 [facility] Work Phone: Thin prep Papanicolaou smear with manual screeningon 10-17-2021 Thin prep Papanicolaou smear with manual screening 20 U/L 15-37 [facility] Work Phone: Thin prep Papanicolaou smear with manual screening 7 5-15 [facility] Work Phone: MRI Pelvis w/ + w/o Contrast on 10-11-2021 MRI Pelvis w/ + w/o Contrast Patient Name: DANNY PINK [facility] ACCESSION EXAM DATE/TIME PROCEDURE ORDERING PROVIDER [id number] 10/11/2021 11:12 EDT MRI Pelvis w/ + w/o MD EDITH, DANNY Contrast CPT code 47806 Reason For Exam (MRI Pelvis w/ + w/o Contrast) vaginal metastasis, assess depth of vaginal invasion - for consideration of vaginal cylinder brachytherapy versus interstitial brachytherapy. 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 Postcontrast T1 fat suppression sequences were performed with administration of 10 mL Gadovist. FINDINGS: Uterus is surgically absent. As noted on post contrast sequence 15 image 20 is a somewhat ovoid masslike region along the posterior wall just beyond the vaginal orifice measuring approximately 0.9 cm AP, 2.1 cm transverse and 1.7 cm cephalocaudad. The depth of the lesion would correspond to the 0.9 cm distance. This is identified with slightly diminished enhancement relative to the remainder of the vagina and some T2 hyperintensity with slight restricted diffusion. There is no other similar region of abnormal signal throughout the lower pelvis and perineum. No other mass is noted within the true pelvis. Bladder is unremarkable. No enlarged obturator, iliac or inguinal lymph nodes are noted. Osseous structures maintain normal signal. IMPRESSION: Ovoid region of abnormal signal along the posterior wall of the vagina and just beyond the orifice with a depth of up to 0.9 cm in maximum dimension of 2.1 cm corresponds to the site of hypermetabolism on PET/CT. Report Dictated on Final Dictated: 10/14/2021 1:11 pm Dictating Physician: MD RICHARD JEFFREY Signed Date and Time: 10/14/2021 1:16 pm Signed by: MD RICHARD JEFFREY Transcribed Date and Time: 10/14/2021 1:11 Normal [facility] Blood platelet adequacy dete ction by light microscopyon 09-26-2021 Platelets LM Ql (Bld) ADEQUATE ADEQ [facility] Work Phone: Laboratory - Hematology and Cell countson 09-26-2021 Anisocytosis Ql (Bld) [facility] Work Phone: Macrocytes detectionon 09-26 Macrocytes Ql (Bld) RARE [facility] Work Phone: RBC morphologyon 09-26-2021 RBC morphology finding Nom (Bld) N CHROM NORMAL NORM C&C [facility] Work Phone: PT w/ CT Scan Skull Base to Midthighon 09-07-2021 PT w/ CT Scan Skull Base to Midthigh Patient Name: ADNNY PINK PET ACCESSION EXAM DATE/TIME PROCEDURE ORDERING PROVIDER [id number] 09/10/2021 07:35 EDT PT w/ CT Scan Skull Base MD EDITH, DANNY to Midthigh CPT code 28322 A9552 Reason For Exam (PT w/ CT Scan Skull Base to Midthigh) endometrial cancer Report PET/CT CLINICAL INDICATION: Endometrial cancer restaging. Following the intravenous administration of 12.3 mCi of fluorine-18 fluorodeoxyglucose (FDG) a PET scan of the torso was acquired after an approximately one hour delay. Blood glucose level at the time of injection was 139 mg/dl. Contemporaneously, noncontrast axial CT images were obtained using low dose technique. The images were reconstructed in three orthogonal planes and digitally coregistered. The CT data was used for attenuation correction as well. COMPARISON: PET/CT performed 02/22/2021 NECK AND CHEST: No abnormal FDG accumulation is seen within the neck or chest to suggest malignant adenopathy or pulmonary nodules. ABDOMEN AND PELVIS: Previously identified mildly enlarged left para-aortic lymph node on the study from 02/22/2021 appears somewhat decreased in size, measuring 11 mm in diameter on the current low-dose CT images compared with 16 mm on the prior examination dated 02/22/2021. The intensity of FDG accumulation within this node has also decreased, with a maximal SUV of 3.4 compared with 8.6 on the prior examination. No new FDG avid lymphadenopathy is seen within the abdomen or pelvis. On the current study, there is a new area of focal, intense (maximal SUV 14) FDG accumulation within the perineum in the expected location of the vaginal vault or near the vaginal cuff. This measures less than 2 cm in diameter on the FDG PET images. MUSCULOSKELETAL: Unremarkable. No evidence of osseous metastatic disease. IMPRESSION: Previously identified FDG avid left para-aortic lymph node on the study from 02/22/2021 has decreased in size and intensity of FDG PET Report accumulation. No new FDG avid lymphadenopathy is seen within the abdomen or pelvis. There is a new focus of increased FDG uptake within the perineum in the expected location of the vaginal vault or near the vaginal cuff. The intensity of uptake is suspicious for residual or recurrent malignancy. Report Dictated on Final Dictated: 09/10/2021 2:54 pm Dictating Physician: SUGMD MAURICE JONATHAN R Signed Date and Time: 09/10/2021 3:09 pm Signed by: MD TSE JONATHAN R Transcribed Date and Time: 09/10/2021 2:54 Normal [facility] Absolute lymphocyte counton 09-05-2021 Lymphocytes Auto (Unsp spec) [#/Vol] 0.38 10*3/uL 0.83-4.51 [facility] Work Phone: Automated blood hematocrit ( percentage)on 09-05-2021 Hematocrit (Bld) [Volume fraction] 37.5 % 37-47 [facility] Work Phone: Basophil percentageon 2021 Basophils/100 WBC (Bld) 0.5 % 0-1 [facility] Work Phone: Bilirubin [Mass/Vol] 0.20 mg/dL 0.20-1.00 [facility] Work Phone: Comment on above: For patients on eltr ombopag therapy, use of Dimension [place] TBIL is not recommended. Chloride [Moles/Vol] 107 mmol/L 98-107 [facility] Work Phone: Eosinophils/100 WBC (Bld) 0.1 % 0-5 [facility] Work Phone: Glucose [Mass/Vol] 150 mg/dL 74-106 [facility] Work Phone: Comment on above: Fasting Glucose resu lt greater than or equal to 126 mg/dL suggests DIABETES MELLITUS per A.D.A. criteria. Neutrophils (Bld) [#/Vol] 6.9 10*3/uL 2.0-7.7 [facility] Work Phone: Neutrophils/100 WBC (Bld) 83.7 % 47-70 [facility] Work Phone: Potassium [Moles/Vol] 3.7 mmol/L 3.5-5.1 [facility] Work Phone: Protein [Mass/Vol] 6.9 g/dL 6.4-8.2 [facility] Work Phone: Sodium [Moles/Vol] 139 mmol/L 136-145 [facility] Work Phone: [phone] WBC (Bld) [#/Vol] 8.2 10*3/uL 4.4-11.0 [facility] Work Phone: Blood erythrocytes count (nu mber/volume)on 09-05-2021 RBC (Bld) [#/Vol] 4.01 10*6/uL 4.2-5.4 [facility] Work Phone: Blood hemoglobin measurement (mass/volume)on 09-05-2021 Hemoglobin (Bld) [Mass/Vol] 12.6 g/dL 12.0-15.0 [facility] Work Phone: Blood lymphocytes/100 leukoc yteson 09-05-2021 Lymphocytes/100 WBC (Bld) 4.6 % 19-41 [facility] Work Phone: Blood manual differential co mment interpretation (narrative result)on 09-05-2021 Manual differential comment Asa (Bld) [Interp] SCANNED [facility] Work Phone: Comment on above: LYMPHOPENIA NOTED Blood monocytes/100 leukocyt eson 09-05-2021 Monocytes/100 WBC (Bld) 10.0 % 0-10 [facility] Work Phone: Blood platelet mean volumeon 09-05-2021 Platelet mean volume (Bld) [Entitic vol] 9.2 fL 6.2-12.0 [facility] Work Phone: CBC with Differentialon 08-19 Hemoglobin.gastrointest inal spec 1 Ql (Stl) 12.6 g/dL 12.0 - 16.0 g/dL [facility] Work Phone: WBC (Bld) [#/Vol] 8.2 10^3/mL [facility] Work Phone: [phone] Comment on above: ANC 6900 Comprehensive Metabolic Pane eric 09-05-2021 ALP (Bld) [Catalytic activity/Vol] 93 U/L [facility] Work Phone: [phone] Anion gap [Moles/Vol] 1.0 mmol/L [facility] Work Phone: [phone] [Catalytic activity/Vol] 26 U/L [facility] Work Phone: [phone] Bilirubin [Mass/Vol] 0.2 mg/dL 0.1 - 1 .4 mg/dL [facility] Work Phone: [phone] Gfr Calculated 70 [facility] Work Phone: [phone] Urea nitrogen (BldV) [Mass/Vol] 17 mg/dL [facility] Work Phone: [phone] Determination of erythrocyte mean corpuscular volume (MCV)on 09-05-2021 MCV (RBC) [Entitic vol] 93.5 fL 81-99 [facility] Work Phone: [phone] Laboratory - Chemistry and C hemistry - challengeon 09-05-2021 ALP [Catalytic activity/Vol] 93 U/L 45-117 [facility] Work Phone: [phone] ALT [Catalytic activity/Vol] 35 U/L 13-56 [facility] Work Phone: [phone] CO2 [Moles/Vol] 23.0 mmol/L 21.0-32.0 [facility] Work Phone: [phone] Globulin (S) [Mass/Vol] 3.5 g/dL 2.2-4.2 [facility] Work Phone: Urea nitrogen/Creatinine [Mass ratio] 19.6 mg/mg 10-20 [facility] Work Phone: [phone] Laboratory - Hematology and Cell countson 09-05-2021 Erythrocyte distribution width (RBC) [Entitic vol] 42.0 fL 35.1-43.9 [facility] Work Phone: [phone] Erythrocyte distribution width (RBC) [Ratio] 12.2 % 11.6-14.6 [facility] Work Phone: [phone] Immature granulocytes/100 WBC (Bld) 1.100 % 0.0-0.9 [facility] Work Phone: [phone] Comment on above: IG% - Immature Granu locytes (promyelocytes, myelocytes and metamyelocytes) > 1% indicates that a LEFT SHIFT is Present. MCH (RBC) [Entitic mass] 31.4 pg 27.0-32.0 [facility] Work Phone: Nucleated RBC/100 WBC (Bld) [Ratio] 0 % 0-5 [facility] Work Phone: MCHC Auto (RBC) [Mass/Vol]on 09-05-2021 MCHC (RBC) [Mass/Vol] 33.6 g/dL 32-36 [facility] Work Phone: No Panel Informationon 09-05 [facility] Work Phone: [phone] Estimated GFR (MDRD) Amer 84 mL/min >60 [facility] Work Phone: Comment on above: GFR Calc Estimated GFR (MDRD) Non-Af Amer 70 mL/min >60 [facility] Work Phone: Comment on above: Non- GFR Calc Platelets bldon 09-05-2021 Platelets (Bld) [#/Vol] 280 10*3/uL 150-450 [facility] Work Phone: [phone] Serum or plasma albumin julio urement (mass/volume)on 09-05-2021 Albumin [Mass/Vol] 3.4 g/dL 3.2-5.0 [facility] Work Phone: [phone] Serum or plasma albumin/glob ulin mass ratioon 09-05-2021 Albumin/Globulin [Mass ratio] 1.0 {ratio} 0.9-2.4 [facility] Work Phone: Serum or plasma calcium julio urement (mass/volume)on 09-05-2021 Calcium [Mass/Vol] 8.9 mg/dL 8.5-10.1 [facility] Work Phone: [phone] Serum or plasma creatinine m easurement (mass/volume)on 09-05-2021 Creatinine [Mass/Vol] 0.87 mg/dL 0.55-1.02 [facility] Work Phone: Comment on above: The validity of the calculated GFR & GFRAA in patients over 70 years has not been determined. Clinical correlation is essential. Serum or plasma urea nitroge n measurement (mass/volume)on 09-05-2021 Urea nitrogen [Mass/Vol] 17 mg/dL 7-18 [facility] Work Phone: Thin prep Papanicolaou smear with manual screeningon 09-05-2021 Thin prep Papanicolaou smear with manual screening 26 U/L 15-37 [facility] Work Phone: [phone] Thin prep Papanicolaou smear with manual screening 9 5-15 [facility] Work Phone: TSHon 08-16-2021 TSH Qn 2.810 u[IU]/mL 0.465 - 4.680 u[IU]/mL [facility] Performed by [facility], [facility] [place], [place] [id number] [place] [address] LAB [facility] Thyroid Stim. Hormoneon 07-21 Thyroid Stim. Hormone 2.810 u[IU]/mL Normal 0.465-4.68 0 [facility] Comment on above: Performed By: #### T 5 #### [address] [address] Absolute lymphocyte counton 08-15-2021 Lymphocytes Auto (Unsp spec) [#/Vol] 0.28 10*3/uL 0.83-4.51 [facility] Work Phone: Basophil percentageon 2021 Basophils/100 WBC (Bld) 0.6 % 0-1 [facility] Work Phone: Bilirubin [Mass/Vol] 0.30 mg/dL 0.20-1.00 [facility] Work Phone: Comment on above: For patients on eltr ombopag therapy, use of Dimension [place] TBIL is not recommended. Chloride [Moles/Vol] 105 mmol/L 98-107 [facility] Work Phone: Eosinophils/100 WBC (Bld) 0.0 % 0-5 [facility] Work Phone: Glucose [Mass/Vol] 144 mg/dL 74-106 [facility] Work Phone: Comment on above: Fasting Glucose resu lt greater than or equal to 126 mg/dL suggests DIABETES MELLITUS per A.D.A. criteria. Neutrophils (Bld) [#/Vol] 5.8 10*3/uL 2.0-7.7 [facility] Work Phone: Neutrophils/100 WBC (Bld) 83.7 % 47-70 [facility] Work Phone: [phone] Potassium [Moles/Vol] 3.8 mmol/L 3.5-5.1 [facility] Work Phone: [phone] Protein [Mass/Vol] 6.9 g/dL 6.4-8.2 [facility] Work Phone: [phone] Sodium [Moles/Vol] 138 mmol/L 136-145 [facility] Work Phone: [phone] WBC (Bld) [#/Vol] 6.9 10*3/uL 4.4-11.0 [facility] Work Phone: Blood erythrocytes count (nu mber/volume)on 08-15-2021 RBC (Bld) [#/Vol] 3.96 10*6/uL 4.2-5.4 [facility] Work Phone: Blood hemoglobin measurement (mass/volume)on 08-15-2021 Hemoglobin (Bld) [Mass/Vol] 12.4 g/dL 12.0-15.0 [facility] Work Phone: Blood lymphocytes/100 leukoc yteson 08-15-2021 Lymphocytes/100 WBC (Bld) 4.0 % 19-41 [facility] Work Phone: Blood manual differential co mment interpretation (narrative result)on 08-15-2021 Manual differential comment Asa (Bld) [Interp] See comment [facility] Work Phone: Comment on above: LYMPHOPENIA NOTED Blood monocytes/100 leukocyt eson 08-15-2021 Monocytes/100 WBC (Bld) 10.7 % 0-10 [facility] Work Phone: [phone] Blood platelet adequacy dete ction by light microscopyon 08-15-2021 Platelets LM Ql (Bld) ADEQUATE ADEQ [facility] Work Phone: [phone] Blood platelet mean volumeon 08-15-2021 Platelet mean volume (Bld) [Entitic vol] 9.1 fL 6.2-12.0 [facility] Work Phone: [phone] Determination of erythrocyte mean corpuscular volume (MCV)on 08-15-2021 MCV (RBC) [Entitic vol] 93.7 fL 81-99 [facility] Work Phone: [phone] Hematocrit Auto (Bld) [Volum e fraction]on 08-15-2021 Hematocrit (Bld) [Volume fraction] 37.1 % 37-47 [facility] Work Phone: [phone] Laboratory - Chemistry and C hemistry - challengeon 08-15-2021 ALP [Catalytic activity/Vol] 83 U/L 45-117 [facility] Work Phone: [phone] ALT [Catalytic activity/Vol] 38 U/L 13-56 [facility] Work Phone: [phone] CO2 [Moles/Vol] 25.0 mmol/L 21.0-32.0 [facility] Work Phone: [phone] Globulin (S) [Mass/Vol] 3.4 g/dL 2.2-4.2 [facility] Work Phone: [phone] Urea nitrogen/Creatinine [Mass ratio] 16.1 mg/mg 10-20 [facility] Work Phone: [phone] Laboratory - Hematology and Cell countson 08-15-2021 Erythrocyte distribution width (RBC) [Entitic vol] 42.9 fL 35.1-43.9 [facility] Work Phone: [phone] Erythrocyte distribution width (RBC) [Ratio] 12.4 % 11.6-14.6 [facility] Work Phone: [phone] Immature granulocytes/100 WBC (Bld) 1.000 % 0.0-0.9 [facility] Work Phone: [phone] Comment on above: IG% - Immature Granu locytes (promyelocytes, myelocytes and metamyelocytes) > 1% indicates that a LEFT SHIFT is Present. MCH (RBC) [Entitic mass] 31.3 pg 27.0-32.0 [facility] Work Phone: [phone] Nucleated RBC/100 WBC (Bld) [Ratio] 0 % 0-5 [facility] Work Phone: [phone] MCHC Auto (RBC) [Mass/Vol]on 08-15-2021 MCHC (RBC) [Mass/Vol] 33.4 g/dL 32-36 [facility] Work Phone: [phone] No Panel Informationon 08-15 Estimated GFR (MDRD) Amer 72 mL/min >60 [facility] Work Phone: [phone] Comment on above: GFR Calc Estimated GFR (MDRD) Non-Af Amer 60 mL/min >60 [facility] Work Phone: [phone] Comment on above: Non- GFR Calc Platelets bldon 08-15-2021 Platelets (Bld) [#/Vol] 297 10*3/uL 150-450 [facility] Work Phone: [phone] RBC morphologyon 08-15-2021 RBC morphology finding Nom (Bld) NORM C+C NORMAL NORM C&C [facility] Work Phone: [phone] Serum or plasma albumin julio urement (mass/volume)on 08-15-2021 Albumin [Mass/Vol] 3.5 g/dL 3.2-5.0 [facility] Work Phone: [phone] Serum or plasma albumin/glob ulin mass ratioon 08-15-2021 Albumin/Globulin [Mass ratio] 1.0 {ratio} 0.9-2.4 [facility] Work Phone: [phone] Serum or plasma calcium julio urement (mass/volume)on 08-15-2021 Calcium [Mass/Vol] 9.0 mg/dL 8.5-10.1 [facility] Work Phone: [phone] Serum or plasma creatinine m easurement (mass/volume)on 08-15-2021 Creatinine [Mass/Vol] 0.99 mg/dL 0.55-1.02 [facility] Work Phone: Comment on above: The validity of the calculated GFR & GFRAA in patients over 70 years has not been determined. Clinical correlation is essential. Serum or plasma urea nitroge n measurement (mass/volume)on 08-15-2021 Urea nitrogen [Mass/Vol] 16 mg/dL 7-18 [facility] Work Phone: Thin prep Papanicolaou smear with manual screeningon 08-15-2021 Thin prep Papanicolaou smear with manual screening 32 U/L 15-37 [facility] Work Phone: Thin prep Papanicolaou smear with manual screening 8 5-15 [facility] Work Phone: Absolute lymphocyte counton 06-27-2021 Lymphocytes Auto (Unsp spec) [#/Vol] 0.27 10*3/uL 0.83-4.51 [facility] Work Phone: Automated blood hematocrit ( percentage)on 06-27-2021 Hematocrit (Bld) [Volume fraction] 36.4 % 37-47 [facility] Work Phone: Basophil percentageon 2021 Basophils/100 WBC (Bld) 0.3 % 0-1 [facility] Work Phone: Bilirubin [Mass/Vol] 0.50 mg/dL 0.20-1.00 [facility] Work Phone: Comment on above: For patients on eltr ombopag therapy, use of Dimension [place] TBIL is not recommended. Chloride [Moles/Vol] 105 mmol/L 98-107 [facility] Work Phone: Eosinophils/100 WBC (Bld) 0.0 % 0-5 [facility] Work Phone: Glucose [Mass/Vol] 240 mg/dL 74-106 [facility] Work Phone: Comment on above: Glucose result great er than or equal to 200 mg/dLsuggests DIABETES MELLITUS per A.D.A. criteria. Neutrophils (Bld) [#/Vol] 7.6 10*3/uL 2.0-7.7 [facility] Work Phone: Neutrophils/100 WBC (Bld) 87.7 % 47-70 [facility] Work Phone: Potassium [Moles/Vol] 3.4 mmol/L 3.5-5.1 [facility] Work Phone: Protein [Mass/Vol] 6.9 g/dL 6.4-8.2 [facility] Work Phone: Sodium [Moles/Vol] 136 mmol/L 136-145 [facility] Work Phone: WBC (Bld) [#/Vol] 8.7 10*3/uL 4.4-11.0 [facility] Work Phone: Blood erythrocytes count (nu mber/volume)on 06-27-2021 RBC (Bld) [#/Vol] 3.91 10*6/uL 4.2-5.4 [facility] Work Phone: Blood hemoglobin measurement (mass/volume)on 06-27-2021 Hemoglobin (Bld) [Mass/Vol] 12.8 g/dL 12.0-15.0 [facility] Work Phone: Blood lymphocytes/100 leukoc yteson 06-27-2021 Lymphocytes/100 WBC (Bld) 3.1 % 19-41 [facility] Work Phone: Blood manual differential co mment interpretation (narrative result)on 06-27-2021 Manual differential comment Asa (Bld) [Interp] SCANNED [facility] Work Phone: Comment on above: LYMPHOPENIA NOTED Blood monocytes/100 leukocyt eson 06-27-2021 Monocytes/100 WBC (Bld) 7.9 % 0-10 [facility] Work Phone: Blood platelet mean volumeon 06-27-2021 Platelet mean volume (Bld) [Entitic vol] 9.1 fL 6.2-12.0 [facility] Work Phone: CBC with Differentialon Hemoglobin.gastrointest inal spec 1 Ql (Stl) 12.8 g/dL 12.0 - 16.0 g/dL [facility] Work Phone: [phone] WBC (Bld) [#/Vol] 8.7 10^3/mL [facility] Work Phone: [phone] Comment on above: ANC 7600 Comprehensive Metabolic Pane eric 06-27-2021 ALP (Bld) [Catalytic activity/Vol] 89 U/L [facility] Work Phone: [phone] Anion gap [Moles/Vol] [facility] Work Phone: [phone] AST [Catalytic activity/Vol] 42 U/L [facility] Work Phone: [phone] Gfr Calculated [facility] Work Phone: [phone] Urea nitrogen (BldV) [Mass/Vol] 10 mg/dL [facility] Work Phone: [phone] Determination of erythrocyte mean corpuscular volume (MCV)on 06-27-2021 MCV (RBC) [Entitic vol] 93.1 fL 81-99 [facility] Work Phone: Laboratory - Chemistry and C hemistry - challengeon 06-27-2021 ALP [Catalytic activity/Vol] 89 U/L 45-117 [facility] Work Phone: ALT [Catalytic activity/Vol] 50 U/L 13-56 [facility] Work Phone: [phone] CO2 [Moles/Vol] 22.0 mmol/L 21.0-32.0 [facility] Work Phone: [phone] Globulin (S) [Mass/Vol] 3.4 g/dL 2.2-4.2 [facility] Work Phone: Urea nitrogen/Creatinine [Mass ratio] 9.8 mg/mg 10-20 [facility] Work Phone: Laboratory - Hematology and Cell countson 06-27-2021 Erythrocyte distribution width (RBC) [Entitic vol] 48.9 fL 35.1-43.9 [facility] Work Phone: [phone] Erythrocyte distribution width (RBC) [Ratio] 14.6 % 11.6-14.6 [facility] Work Phone: [phone] Immature granulocytes/100 WBC (Bld) 1.000 % 0.0-0.9 [facility] Work Phone: [phone] Comment on above: IG% - Immature Granu locytes (promyelocytes, myelocytes and metamyelocytes) > 1% indicates that a LEFT SHIFT is Present. MCH (RBC) [Entitic mass] 32.7 pg 27.0-32.0 [facility] Work Phone: [phone] Nucleated RBC/100 WBC (Bld) [Ratio] 0 % 0-5 [facility] Work Phone: [phone] MCHC Auto (RBC) [Mass/Vol]on 06-27-2021 MCHC (RBC) [Mass/Vol] 35.2 g/dL 32-36 [facility] Work Phone: No Panel Informationon 06-27 Interpretation and review of laboratory results Abnormal [facility] Work Phone: [phone] [facility] Work Phone: [phone] Estimated GFR (MDRD) Amer 70 mL/min >60 [facility] Work Phone: Comment on above: GFR Calc Estimated GFR (MDRD) Non-Af Amer 58 mL/min >60 [facility] Work Phone: [phone] Comment on above: Non- GFR Calc Thyroid Stimulating Hormone (TSH) 1.52 uIU/mL 0.358-3.74 [facility] Work Phone: Platelets bldon 06-27-2021 Platelets (Bld) [#/Vol] 273 10*3/uL 150-450 [facility] Work Phone: [phone] Serum or plasma albumin julio urement (mass/volume)on 06-27-2021 Albumin [Mass/Vol] 3.5 g/dL 3.2-5.0 [facility] Work Phone: [phone] Serum or plasma albumin/glob ulin mass ratioon 03-09-2022 Albumin/Globulin [Mass ratio] 1.0 {ratio} 0.9-2.4 [facility] Work Phone: Serum or plasma calcium julio urement (mass/volume)on 06-27-2021 Calcium [Mass/Vol] 9.5 mg/dL 8.5-10.1 [facility] Work Phone: Serum or plasma creatinine m easurement (mass/volume)on 06-27-2021 Creatinine [Mass/Vol] 1.02 mg/dL 0.55-1.02 [facility] Work Phone: Comment on above: The validity of the calculated GFR & GFRAA in patients over 70 years has not been determined. Clinical correlation is essential. Serum or plasma urea nitroge n measurement (mass/volume)on 06-27-2021 Urea nitrogen [Mass/Vol] 10 mg/dL 7-18 [facility] Work Phone: Thin prep Papanicolaou smear with manual screeningon 06-27-2021 Thin prep Papanicolaou smear with manual screening 42 U/L 15-37 [facility] Work Phone: Thin prep Papanicolaou smear with manual screening 9 5-15 [facility] Work Phone: Absolute lymphocyte counton 05-30-2021 Lymphocytes Auto (Unsp spec) [#/Vol] 0.12 10*3/uL 0.83-4.51 [facility] Work Phone: Basophil percentageon 2021 Basophils/100 WBC (Bld) 0.4 % 0-1 [facility] Work Phone: Bilirubin [Mass/Vol] 0.30 mg/dL 0.20-1.00 [facility] Work Phone: Comment on above: For patients on eltr ombopag therapy, use of Dimension [place] TBIL is not recommended. Chloride [Moles/Vol] 102 mmol/L 98-107 [facility] Work Phone: Eosinophils/100 WBC (Bld) 0.0 % 0-5 [facility] Work Phone: Glucose [Mass/Vol] 181 mg/dL 74-106 [facility] Work Phone: Comment on above: Fasting Glucose resu lt greater than or equal to 126 mg/dL suggests DIABETES MELLITUS per A.D.A. criteria. Neutrophils (Bld) [#/Vol] 4.4 10*3/uL 2.0-7.7 [facility] Work Phone: Neutrophils/100 WBC (Bld) 81.7 % 47-70 [facility] Work Phone: Potassium [Moles/Vol] 3.8 mmol/L 3.5-5.1 [facility] Work Phone: [phone] Protein [Mass/Vol] 6.9 g/dL 6.4-8.2 [facility] Work Phone: Sodium [Moles/Vol] 134 mmol/L 136-145 [facility] Work Phone: [phone] WBC (Bld) [#/Vol] 5.4 10*3/uL 4.4-11.0 [facility] Work Phone: [phone] Blood erythrocytes count (nu mber/volume)on 05-30-2021 RBC (Bld) [#/Vol] 3.92 10*6/uL 4.2-5.4 [facility] Work Phone: Blood hemoglobin measurement (mass/volume)on 05-30-2021 Hemoglobin (Bld) [Mass/Vol] 12.3 g/dL 12.0-15.0 [facility] Work Phone: Blood lymphocytes/100 leukoc yteson 05-30-2021 Lymphocytes/100 WBC (Bld) 2.2 % 19-41 [facility] Work Phone: Blood manual differential co mment interpretation (narrative result)on 05-30-2021 Manual differential comment Asa (Bld) [Interp] See comment [facility] Work Phone: Comment on above: LYMPHOPENIA NOTED Blood monocytes/100 leukocyt eson 02-09-2022 Monocytes/100 WBC (Bld) 14.6 % 0-10 [facility] Work Phone: [phone] Blood platelet mean volumeon 05-30-2021 Platelet mean volume (Bld) [Entitic vol] 9.4 fL 6.2-12.0 [facility] Work Phone: [phone] Determination of erythrocyte mean corpuscular volume (MCV)on 05-30-2021 MCV (RBC) [Entitic vol] 90.3 fL 81-99 [facility] Work Phone: [phone] Hematocrit Auto (Bld) [Volum e fraction]on 05-30-2021 Hematocrit (Bld) [Volume fraction] 35.4 % 37-47 [facility] Work Phone: Laboratory - Chemistry and C hemistry - challengeon 05-30-2021 ALP [Catalytic activity/Vol] 81 U/L 45-117 [facility] Work Phone: [phone] ALT [Catalytic activity/Vol] 37 U/L 13-56 [facility] Work Phone: [phone] CO2 [Moles/Vol] 21.0 mmol/L 21.0-32.0 [facility] Work Phone: Globulin (S) [Mass/Vol] 3.5 g/dL 2.2-4.2 [facility] Work Phone: [phone] Urea nitrogen/Creatinine [Mass ratio] 9.4 mg/mg 10-20 [facility] Work Phone: [phone] - Hematology and Cell countson 05-30-2021 Erythrocyte distribution width (RBC) [Entitic vol] 46.7 fL 35.1-43.9 [facility] Work Phone: [phone] Erythrocyte distribution width (RBC) [Ratio] 14.4 % 11.6-14.6 [facility] Work Phone: [phone] Immature granulocytes/100 WBC (Bld) 1.100 % 0.0-0.9 [facility] Work Phone: [phone] Comment on above: IG% - Immature Granu locytes (promyelocytes, myelocytes and metamyelocytes) > 1% indicates that a LEFT SHIFT is Present. MCH (RBC) [Entitic mass] 31.4 pg 27.0-32.0 [facility] Work Phone: Nucleated RBC/100 WBC (Bld) [Ratio] 0 % 0-5 [facility] Work Phone: [phone] MCHC Auto (RBC) [Mass/Vol]on 05-30-2021 MCHC (RBC) [Mass/Vol] 34.7 g/dL 32-36 [facility] Work Phone: No Panel Informationon 05-30 Estimated GFR (MDRD) Amer 86 mL/min >60 [facility] Work Phone: Comment on above: GFR Calc Estimated GFR (MDRD) Non-Af Amer 71 mL/min >60 [facility] Work Phone: Comment on above: Non- GFR Calc Platelets bldon 05-30-2021 Platelets (Bld) [#/Vol] 210 10*3/uL 150-450 [facility] Work Phone: Serum or plasma albumin julio urement (mass/volume)on 05-30-2021 Albumin [Mass/Vol] 3.4 g/dL 3.2-5.0 [facility] Work Phone: Serum or plasma albumin/glob ulin mass ratioon 05-30-2021 Albumin/Globulin [Mass ratio] 1.0 {ratio} 0.9-2.4 [facility] Work Phone: [phone] Serum or plasma calcium julio urement (mass/volume)on 05-30-2021 Calcium [Mass/Vol] 8.5 mg/dL 8.5-10.1 [facility] Work Phone: [phone] Serum or plasma creatinine m easurement (mass/volume)on 05-30-2021 Creatinine [Mass/Vol] 0.85 mg/dL 0.55-1.02 [facility] Work Phone: Comment on above: The validity of the calculated GFR & GFRAA in patients over 70 years has not been determined. Clinical correlation is essential. Serum or plasma urea nitroge n measurement (mass/volume)on 05-30-2021 Urea nitrogen [Mass/Vol] 8 mg/dL 7-18 [facility] Work Phone: Thin prep Papanicolaou smear with manual screeningon 05-30-2021 Thin prep Papanicolaou smear with manual screening 28 U/L 15-37 [facility] Work Phone: [phone] Thin prep Papanicolaou smear with manual screening 11 5-15 [facility] Work Phone: [phone] Absolute lymphocyte counton 05-02-2021 Lymphocytes Auto (Unsp spec) [#/Vol] 0.42 10*3/uL 0.83-4.51 [facility] Work Phone: Basophil percentageon 2021 Basophils/100 WBC (Bld) 0.6 % 0-1 [facility] Work Phone: Bilirubin [Mass/Vol] 0.30 mg/dL 0.20-1.00 [facility] Work Phone: Comment on above: For patients on eltr ombopag therapy, use of Dimension [place] TBIL is not recommended. Chloride [Moles/Vol] 100 mmol/L 98-107 [facility] Work Phone: Eosinophils/100 WBC (Bld) 0.0 % 0-5 [facility] Work Phone: Glucose [Mass/Vol] 348 mg/dL 74-106 [facility] Work Phone: Comment on above: Glucose result great er than or equal to 200 mg/dLsuggests DIABETES MELLITUS per A.D.A. criteria. Neutrophils (Bld) [#/Vol] 4.8 10*3/uL 2.0-7.7 [facility] Work Phone: Neutrophils/100 WBC (Bld) 75.2 % 47-70 [facility] Work Phone: Potassium [Moles/Vol] 4.5 mmol/L 3.5-5.1 [facility] Work Phone: Protein [Mass/Vol] 7.1 g/dL 6.4-8.2 [facility] Work Phone: Sodium [Moles/Vol] 134 mmol/L 136-145 [facility] Work Phone: WBC (Bld) [#/Vol] 6.3 10*3/uL 4.4-11.0 [facility] Work Phone: Blood erythrocytes count (nu mber/volume)on 05-02-2021 RBC (Bld) [#/Vol] 4.44 10*6/uL 4.2-5.4 [facility]: [phone] Blood hemoglobin measurement (mass/volume)on 05-02-2021 Hemoglobin (Bld) [Mass/Vol] 12.9 g/dL 12.0-15.0 [facility] Work Phone: Blood lymphocytes/100 leukoc yteson 05-02-2021 Lymphocytes/100 WBC (Bld) 6.6 % 19-41 [facility] Work Phone: Blood manual differential co mment interpretation (narrative result)on 05-02-2021 Manual differential comment Asa (Bld) [Interp] SCANNED [facility] Work Phone: Blood monocytes/100 leukocyt eson 05-02-2021 Monocytes/100 WBC (Bld) 13.0 % 0-10 [facility] Work Phone: Blood platelet mean volumeon 05-02-2021 Platelet mean volume (Bld) [Entitic vol] 9.7 fL 6.2-12.0 [facility] Work Phone: Determination of erythrocyte mean corpuscular volume (MCV)on 05-02-2021 MCV (RBC) [Entitic vol] 89.9 fL 81-99 [facility] Work Phone: Hematocrit Auto (Bld) [Volum e fraction]on 05-02-2021 Hematocrit (Bld) [Volume fraction] 39.9 % 37-47 [facility] Work Phone: [phone] Laboratory - Chemistry and C hemistry - challengeon 05-02-2021 ALP [Catalytic activity/Vol] 107 U/L 45-117 [facility] Work Phone: [phone] ALT [Catalytic activity/Vol] 78 U/L 13-56 [facility] Work Phone: [phone] CO2 [Moles/Vol] 24.0 mmol/L 21.0-32.0 [facility] Work Phone: [phone] Globulin (S) [Mass/Vol] 3.5 g/dL 2.2-4.2 [facility] Work Phone: [phone] Urea nitrogen/Creatinine [Mass ratio] 26.7 mg/mg 10-20 [facility] Work Phone: [phone] Laboratory - Hematology and Cell countson 05-02-2021 Erythrocyte distribution width (RBC) [Entitic vol] 44.4 fL 35.1-43.9 [facility] Work Phone: [phone] Erythrocyte distribution width (RBC) [Ratio] 13.5 % 11.6-14.6 [facility] Work Phone: [phone] Immature granulocytes/100 WBC (Bld) 4.600 % 0.0-0.9 [facility] Work Phone: [phone] Comment on above: IG% - Immature Granu locytes (promyelocytes, myelocytes and metamyelocytes) > 1% indicates that a LEFT SHIFT is Present. MCH (RBC) [Entitic mass] 29.1 pg 27.0-32.0 [facility] Work Phone: [phone] Nucleated RBC/100 WBC (Bld) [Ratio] 0 % 0-5 [facility] Work Phone: [phone] MCHC Auto (RBC) [Mass/Vol]on 05-02-2021 MCHC (RBC) [Mass/Vol] 32.3 g/dL 32-36 [facility] Work Phone: [phone] No Panel Informationon 05-02 Estimated GFR (MDRD) Amer 58 mL/min >60 [facility] Work Phone: Comment on above: GFR Calc Estimated GFR (MDRD) Non-Af Amer 48 mL/min >60 [facility] Work Phone: Comment on above: Non- GFR Calc Platelets bldon 05-02-2021 Platelets (Bld) [#/Vol] 290 10*3/uL 150-450 [facility] Work Phone: Serum or plasma albumin julio urement (mass/volume)on 05-02-2021 Albumin [Mass/Vol] 3.6 g/dL 3.2-5.0 [facility] Work Phone: Serum or plasma albumin/glob ulin mass ratioon 05-02-2021 Albumin/Globulin [Mass ratio] 1.0 {ratio} 0.9-2.4 [facility] Work Phone: Serum or plasma calcium julio urement (mass/volume)on 05-02-2021 Calcium [Mass/Vol] 9.1 mg/dL 8.5-10.1 [facility] Work Phone: Serum or plasma creatinine m easurement (mass/volume)on 05-02-2021 Creatinine [Mass/Vol] 1.20 mg/dL 0.55-1.02 [facility] Work Phone: Comment on above: The validity of the calculated GFR & GFRAA in patients over 70 years has not been determined. Clinical correlation is essential. Serum or plasma urea nitroge n measurement (mass/volume)on 05-02-2021 Urea nitrogen [Mass/Vol] 32 mg/dL 7-18 [facility] Work Phone: Thin prep Papanicolaou smear with manual screeningon 05-02-2021 Thin prep Papanicolaou smear with manual screening 40 U/L 15-37 [facility] Work Phone: [phone] Thin prep Papanicolaou smear with manual screening 10 5-15 [facility] Work Phone: Absolute lymphocyte counton 04-16-2021 Lymphocytes Auto (Unsp spec) [#/Vol] 0.25 10*3/uL 0.83-4.51 [facility] Work Phone: Basophil percentageon 2020 Chloride [Moles/Vol] 94 mmol/L 98-107 [facility] Work Phone: Eosinophils/100 WBC (Bld) 0.2 % 0-5 [facility] Work Phone: Glucose [Mass/Vol] 309 mg/dL 74-106 [facility] Work Phone: Comment on above: Glucose result great er than or equal to 200 mg/dLsuggests DIABETES MELLITUS per A.D.A. criteria.Please note revised GLUCOSE reference range effective 2017. Neutrophils (Bld) [#/Vol] 7.3 10*3/uL 2.0-7.7 [facility] Work Phone: Potassium [Moles/Vol] 4.0 mmol/L 3.5-5.1 [facility] Work Phone: Sodium [Moles/Vol] 130 mmol/L 136-145 [facility] Work Phone: WBC (Bld) [#/Vol] 8.3 10*3/uL 4.4-11.0 [facility] Work Phone: Basophil percentage 25-50 SEEN /hpf [facility] Work Phone: [phone] Bilirubin Test strip Ql (U)o n 04-16-2021 Bilirubin Ql (U) 3 mg/dL Negative [facility] Work Phone: Comment on above: COLOR OF URINE MAY A FFECT DIPSTICK RESULTS. Blood erythrocytes count (nu mber/volume)on 04-16-2021 RBC (Bld) [#/Vol] 4.37 10*6/uL 4.2-5.4 [facility] Work Phone: Blood hemoglobin measurement (mass/volume)on 04-16-2021 Hemoglobin (Bld) [Mass/Vol] 12.9 g/dL 12.0-15.0 [facility] Work Phone: Blood lymphocytes/100 leukoc yteson 04-16-2021 Lymphocytes/100 WBC (Bld) 3.0 % 19-41 [facility] Work Phone: [phone] Blood monocytes/100 leukocyt eson 04-16-2021 Monocytes/100 WBC (Bld) 7.6 % 0-10 [facility] Work Phone: [phone] Blood platelet mean volumeon 04-16-2021 Platelet mean volume (Bld) [Entitic vol] 9.1 fL 6.2-12.0 [facility] Work Phone: [phone] Culture, urineon 04-16-2021 Bacteria identified Cx Nom (U) Positive [facility] Work Phone: [phone] Determination of erythrocyte mean corpuscular volume (MCV)on 04-16-2021 MCV (RBC) [Entitic vol] 89.0 fL 81-99 [facility] Work Phone: Glucose Glucometer (BldC) [M ass/Vol]on 04-16-2021 Glucose [Mass/Vol] 314 mg/dL 70-110 [facility] Work Phone: [phone] Comment on above: MANAGEMENT OF PATIEN T CARE PER NURSING PROTOCOL Hematocrit Auto (Bld) [Volum e fraction]on 04-16-2021 Hematocrit (Bld) [Volume fraction] 38.9 % 37-47 [facility] Work Phone: [phone] Ketones Test strip Ql (U)on 04-16-2021 Ketones Ql (U) 50 mg/dl Negative [facility] Work Phone: [phone] Laboratory - Chemistry and C hemistry - challengeon 04-16-2021 CO2 [Moles/Vol] 24.0 mmol/L 21.0-32.0 [facility] Work Phone: [phone] Urea nitrogen/Creatinine [Mass ratio] 9.9 mg/mg 10-20 [facility] Work Phone: [phone] Laboratory - Hematology and Cell countson 04-16-2021 Basophils/100 WBC (Unsp spec) 0.5 % 0-1 [facility] Work Phone: Erythrocyte distribution width (RBC) [Entitic vol] 44.9 fL 35.1-43.9 [facility] Work Phone: [phone] Erythrocyte distribution width (RBC) [Ratio] 13.7 % 11.6-14.6 [facility] Work Phone: [phone] Immature granulocytes/100 WBC (Bld) 1.100 % 0.0-0.9 [facility] Work Phone: [phone] Comment on above: IG% - Immature Granu locytes (promyelocytes, myelocytes and metamyelocytes) > 1% indicates that a LEFT SHIFT is Present. MCH (RBC) [Entitic mass] 29.5 pg 27.0-32.0 [facility] Work Phone: [phone] Neutrophils/100 WBC (Bld) 87.6 % 47-70 [facility] Work Phone: [phone] Nucleated RBC/100 WBC (Bld) [Ratio] 0 % 0-5 [facility] Work Phone: MCHC Auto (RBC) [Mass/Vol]on 04-16-2021 MCHC (RBC) [Mass/Vol] 33.2 g/dL 32-36 [facility] Work Phone: Mucus LM Ql (Urine sed)on Mucus Ql (Urine sed) 0 SEEN /hpf [facility] Work Phone: [phone] Nitrite Test strip Ql (U)on 04-16-2021 Nitrite Ql (U) Positive Negative [facility] Work Phone: No Panel Informationon 04-16 Estimated Creatinine Clearance Calc 64.82 ml/min [facility] Work Phone: [phone] Estimated GFR (MDRD) Amer 92 mL/min >60 [facility] Work Phone: [phone] Comment on above: GFR Calc Estimated GFR (MDRD) Non-Af Amer 76 mL/min >60 [facility] Work Phone: [phone] Comment on above: Non- GFR Calc Platelets bldon 04-16-2021 Platelets (Bld) [#/Vol] 206 10*3/uL 150-450 [facility] Work Phone: Protein Test strip Ql (U)on 04-16-2021 Protein Ql (U) 30 mg/dl Negative [facility] Work Phone: Serum or plasma calcium julio urement (mass/volume)on 04-16-2021 Calcium [Mass/Vol] 9.6 mg/dL 8.5-10.1 [facility] Work Phone: Serum or plasma creatinine m easurement (mass/volume)on 04-16-2021 Creatinine [Mass/Vol] 0.81 mg/dL 0.55-1.02 [facility] Work Phone: Comment on above: The validity of the calculated GFR & GFRAA in patients over 70 years has not been determined. Clinical correlation is essential. Serum or plasma urea nitroge n measurement (mass/volume)on 04-16-2021 Urea nitrogen [Mass/Vol] 8 mg/dL 7-18 [facility] Work Phone: Squamous epithelial cells de tection in urine sediment by light microscopyon 04-16-2021 Epithelial cells.squamous LM Ql (Urine sed) 5-10 SEEN /hpf [facility] Work Phone: Thin prep Papanicolaou smear with manual screeningon 04-16-2021 Thin prep Papanicolaou smear with manual screening 12 5-15 [facility] Work Phone: Urine blood detectionon 03-22 RBC Ql (U) 25 /ul Negative [facility] Work Phone: [phone] RBC Ql (U) 5-10 SEEN /hpf [facility] Work Phone: Urine clarityon 04-16-2021 Clarity (U) Clear Clear [facility] Work Phone: Urine color determinationon 04-16-2021 Color (U) [place] Yellow [facility] Work Phone: Urine glucose detectionon Glucose Ql (U) 1000 mg/dl Normal [facility] Work Phone: Urine leukocyte esterase det ection by dipstickon 04-16-2021 Leukocyte esterase Test strip Ql (U) 500 /ul Negative [facility] Work Phone: [phone] Urine pHon 04-16-2021 pH (U) 5.0 [pH] [facility] Work Phone: [phone] Urine sediment bacteria coun t by microscopy (number/high power field)on 04-16-2021 Bacteria LM.HPF (Urine sed) [#/Area] 1 /[HPF] None Seen [facility] Work Phone: Urine specific gravity measu rementon 04-16-2021 Specific gravity (U) [Rel density] 1.020 [facility] Work Phone: Urobilinogen Auto test strip Ql (U)on 04-16-2021 Urobilinogen Ql (U) 4 mg/dl Normal [facility] Work Phone: Absolute lymphocyte counton 04-11-2021 Lymphocytes Auto (Unsp spec) [#/Vol] 0.50 10*3/uL 0.83-4.51 [facility] Work Phone: Basophil percentageon 2020 Bilirubin [Mass/Vol] 0.30 mg/dL 0.20-1.00 [facility] Work Phone: Comment on above: For patients on eltr ombopag therapy, use of Dimension [place] TBIL is not recommended. Chloride [Moles/Vol] 104 mmol/L 98-107 [facility] Work Phone: Eosinophils/100 WBC (Bld) 1.2 % 0-5 [facility] Work Phone: Glucose [Mass/Vol] 342 mg/dL 74-106 [facility] Work Phone: Comment on above: Glucose result great er than or equal to 200 mg/dLsuggests DIABETES MELLITUS per A.D.A. criteria.Please note revised GLUCOSE reference range effective 2017. Neutrophils (Bld) [#/Vol] 4.5 10*3/uL 2.0-7.7 [facility] Work Phone: Potassium [Moles/Vol] 4.2 mmol/L 3.5-5.1 [facility] Work Phone: Protein [Mass/Vol] 7.3 g/dL 6.4-8.2 [facility]: Sodium [Moles/Vol] 136 mmol/L 136-145 [facility] Work Phone: WBC (Bld) [#/Vol] 5.9 10*3/uL 4.4-11.0 [facility] Work Phone: Blood erythrocytes count (nu mber/volume)on 04-11-2021 RBC (Bld) [#/Vol] 4.50 10*6/uL 4.2-5.4 [facility]: Blood hemoglobin measurement (mass/volume)on 04-11-2021 Hemoglobin (Bld) [Mass/Vol] 13.2 g/dL 12.0-15.0 [facility] Work Phone: Blood lymphocytes/100 leukoc yteson 04-11-2021 Lymphocytes/100 WBC (Bld) 8.4 % 19-41 [facility] Work Phone: Blood manual differential co mment interpretation (narrative result)on 04-11-2021 Manual differential comment Asa (Bld) [Interp] SCANNED [facility] Work Phone: Comment on above: LYMPHOPENIA NOTED Blood monocytes/100 leukocyt eson 04-11-2021 Monocytes/100 WBC (Bld) 11.0 % 0-10 [facility] Work Phone: Blood platelet mean volumeon 04-11-2021 Platelet mean volume (Bld) [Entitic vol] 9.3 fL 6.2-12.0 [facility] Work Phone: Determination of erythrocyte mean corpuscular volume (MCV)on 04-11-2021 MCV (RBC) [Entitic vol] 88.4 fL 81-99 [facility] Work Phone: Hematocrit Auto (Bld) [Volum e fraction]on 04-11-2021 Hematocrit (Bld) [Volume fraction] 39.8 % 37-47 [facility] Work Phone: Laboratory - Chemistry and C hemistry - challengeon 04-11-2021 ALP [Catalytic activity/Vol] 120 U/L 45-117 [facility] Work Phone: [phone] ALT [Catalytic activity/Vol] 97 U/L 13-56 [facility] Work Phone: [phone] CO2 [Moles/Vol] 22.0 mmol/L 21.0-32.0 [facility] Work Phone: [phone] Globulin (S) [Mass/Vol] 3.9 g/dL 2.2-4.2 [facility] Work Phone: [phone] Urea nitrogen/Creatinine [Mass ratio] 18.4 mg/mg 10-20 [facility] Work Phone: Laboratory - Hematology and Cell countson 04-11-2021 Basophils/100 WBC (Unsp spec) 0.8 % 0-1 [facility] Work Phone: [phone] Erythrocyte distribution width (RBC) [Entitic vol] 46.1 fL 35.1-43.9 [facility] Work Phone: [phone] Erythrocyte distribution width (RBC) [Ratio] 14.4 % 11.6-14.6 [facility] Work Phone: [phone] Immature granulocytes/100 WBC (Bld) 2.400 % 0.0-0.9 [facility] Work Phone: Comment on above: IG% - Immature Granu locytes (promyelocytes, myelocytes and metamyelocytes) > 1% indicates that a LEFT SHIFT is Present. MCH (RBC) [Entitic mass] 29.3 pg 27.0-32.0 [facility] Work Phone: Neutrophils/100 WBC (Bld) 76.2 % 47-70 [facility] Work Phone: Nucleated RBC/100 WBC (Bld) [Ratio] 0 % 0-5 [facility] Work Phone: MCHC Auto (RBC) [Mass/Vol]on 04-11-2021 MCHC (RBC) [Mass/Vol] 33.2 g/dL 32-36 [facility] Work Phone: No Panel Informationon 04-11 Estimated GFR (MDRD) Amer 84 mL/min >60 [facility] Work Phone: Comment on above: GFR Calc Estimated GFR (MDRD) Non-Af Amer 69 mL/min >60 [facility] Work Phone: Comment on above: Non- GFR Calc Thyroid Stimulating Hormone (TSH) 1.83 uIU/mL 0.358-3.74 [facility] Work Phone: Platelets bldon 04-11-2021 Platelets (Bld) [#/Vol] 240 10*3/uL 150-450 [facility] Work Phone: Serum or plasma albumin julio urement (mass/volume)on 04-11-2021 Albumin [Mass/Vol] 3.4 g/dL 3.2-5.0 [facility] Work Phone: Serum or plasma albumin/glob ulin mass ratioon 04-11-2021 Albumin/Globulin [Mass ratio] 0.9 {ratio} 0.9-2.4 [facility] Work Phone: [phone] Serum or plasma calcium julio urement (mass/volume)on 04-11-2021 Calcium [Mass/Vol] 9.5 mg/dL 8.5-10.1 [facility] Work Phone: [phone] Serum or plasma creatinine m easurement (mass/volume)on 04-11-2021 Creatinine [Mass/Vol] 0.87 mg/dL 0.55-1.02 [facility] Work Phone: Comment on above: The validity of the calculated GFR & GFRAA in patients over 70 years has not been determined. Clinical correlation is essential. Serum or plasma urea nitroge n measurement (mass/volume)on 04-11-2021 Urea nitrogen [Mass/Vol] 16 mg/dL 7-18 [facility] Work Phone: Thin prep Papanicolaou smear with manual screeningon 04-11-2021 Thin prep Papanicolaou smear with manual screening 57 U/L 15-37 [facility] Work Phone: Thin prep Papanicolaou smear with manual screening 10 5-15 [facility] Work Phone: Radiation Onc Init Conson Radiation Onc Init Cons [facility] Radiation Oncology RADIATION ONCOLOGY INITIAL CONSULTATION PATIENT: Danny Pink DATE OF SERVICE: 03/29/2021 [facility] 1955 AGE: 65 PRIMARY SITE: Malignant neoplasm of endometrium STAGE: FIGO IB, grade 2; recurrent HISTORY OF PRESENT ILLNESS: Ms. Pink is a 65-year-old female with recurrent uterine cancer. We are asked to see Ms. Pink in consideration of radiotherapy options for the above diagnosis. Patient initially underwent surgery for uterine cancer in November 2017, returning as grade 2 adenocarcinoma, greater than 50% myometrial invasion, positive LVSI, no cervical invasion and 0 of 5 lymph nodes involved with disease. She was then referred to [facility], and treated by Dr. Zurita with whole pelvic radiotherapy to 45 Gy followed by vaginal cuff boost via external beam radiation for a total dose of 50.4 Gy. This was completed April 27, 2018. She was doing well up until September 2019 when she developed back pain with imaging demonstrating a left periaortic lymph node. PET CT scan confirmed this was a focus of FDG avidity. No other evidence of distant or regional disease otherwise. She underwent attempted robotic resection of the left periarotic lymph node however, there was extracapsular extension of disease as the lymph node was matted and densely adherent to the abdominal aorta. Biopsies were obtained at that time confirming the diagnosis. She was started on systemic chemotherapy and had completed 9 cycles of carbo/taxol with associated arthralgias and myalgias. She then initiated tamoxifen and Megace for progressive disease, but she was unable to tolerate this. When seen in November 2020, she had a new vaginal lesion with biopsy confirming recurrent endometrial cancer. She was then started on Keytruda and Lenmiva. She was unable to tolerate the Lenvima, and most recently is on single agent Keytruda. Most recently re-staging PET CT scan done February 22, 2021 continued to show fairly intense abnormal FDG correlation with a mildly enlarged left periaortic lymph node. When compared to the prior examination, both the size and intensity of uptake had increased. Clinically, she is doing relatively well without any evidence of vaginal bleeding or discharge. PAST MEDICAL HISTORY: Hypertension, asthma, diabetes PAST SURGICAL HISTORY: x2, tonsillectomy SOCIAL HISTORY: Ms. Pink lives in [place]. She is accompanied by her sister. She denies current tobacco or alcohol use. FAMILY HISTORY: Father with colon cancer. ALLERGIES: morphine sulfate; Codeine MEDICATIONS: 1. albuterol - 2 Puff(s) Inhalation Q4H 2. Alphagan - 1 Drops Ophthalmic Three times a day 3. Bentyl - 1 Capsule Oral Four times a day 4. calcium carbonate - 1 Tablet Oral Daily 5. Carafate - 10 mL Oral Four times a day 6. Compazine - 1 Tablet Oral Q6H 7. gabapentin - 1 Capsule Oral Every day before sleep 8. IBU - 1 Tablet Oral Q8H 9. lisinopril - 1 Tablet Oral Daily 10. metformin - 1 Tablet Oral Twice a Day 11. oxycodone - 1 Tablet Oral Q6H 12. Protonix - 1 Oral Daily 13. Symbicort - 2 Puff(s) Inhalation Twice a Day 14. Vitamin D - 2,000 Unit/dl PO Daily 15. Zofran - 1 Tablet Oral Q8H Medications Last Reconciled by Libby Sanchez RN on 03/29/2021 REVIEW OF SYSTEMS: Pain: 0. - No pain 12 point review of systems was performed. Pertinent positives and negatives are those provided in the history of present illness. All other systems reviewed and negative. ECOG Performance Status: 0 PHYSICAL EXAMINATION: GENERAL: No acute distress alert and oriented x3. LUNGS: Clear to auscultation bilaterally. HEART: Regular rate and rhythm. NEURO: No focal motor or sensory deficits appreciated, cranial nerves II through XII grossly intact. PSYCH: Appropriate affect, goal oriented speech. IMPRESSION: Ms. Pink is a 65-year-old lady who presents with recurrent endometrial cancer, having previously received pelvic radiotherapy at [facility] with Dr. Zurita, now with oligo-progression in a periaortic lymph node that is not resectable. Her ECOG performance status is 0. I reviewed with Ms. Pink the importance of obtaining her prior radiotherapy records to see what can be delivered further to this area. It does appear that this may be amenable to periaortic chain radiotherapy. I did briefly review the logistics, including CT simulation. I reviewed the acute and late side effects of therapy as well. All of her questions were answered to her satisfaction. We will endeavor to obtain the prior records, but also make referral to Dr. Melendez closer to home in [place]. All of her questions were answered to her satisfaction. PLAN: 1. Obtain prior radiotherapy records from [facility]. 2. Pending the above, will refer Ms. Pink redd (more content not included)... Normal [facility] CBC with Differentialon 02-19 Hematocrit (Bld) [Volume fraction] 41.1 % 36 - 46 % [facility] Work Phone: [phone] Hemoglobin.gastrointest inal spec 1 Ql (Stl) 13.3 g/dL 12.0 - 16.0 g/dL [facility] Work Phone: Platelets (Bld) [#/Vol] 253 10*3/uL K/ L [facility] Work Phone: WBC (Bld) [#/Vol] 7.6 10^3/mL [facility] Work Phone: Comment on above: ANC 5800 Comprehensive Metabolic Pane eric 02-28-2021 Albumin [Mass/Vol] 3.3 g/dL [facility] Work Phone: [phone] ALP (Bld) [Catalytic activity/Vol] 108 U/L [facility] Work Phone: ALT [Catalytic activity/Vol] 63 U/L [facility] Work Phone: [phone] Anion gap [Moles/Vol] [facility] Work Phone: AST [Catalytic activity/Vol] 37 U/L [facility] Work Phone: Bilirubin [Mass/Vol] 0.3 mg/dL 0.1 - 1 .4 mg/dL [facility] Work Phone: [phone] Calcium [Mass/Vol] 9.0 mg/dL [facility] Work Phone: [phone] Chloride [Moles/Vol] 101 mmol/L [facility] Work Phone: [phone] CO2 [Moles/Vol] 22.0 mmol/L [facility] Work Phone: [phone] Creatinine [Mass/Vol] 1.04 mg/dL [facility] Work Phone: [phone] Gfr Calculated 57 [facility] Work Phone: [phone] Glucose [Mass/Vol] 359 mg/dL [facility] Work Phone: [phone] Interpretation and review of laboratory results Abnormal [facility] Work Phone: [phone] Potassium [Moles/Vol] 4.2 mmol/L [facility] Work Phone: [phone] Protein [Mass/Vol] 6.9 g/dL [facility] Work Phone: [phone] Sodium [Moles/Vol] 134 mmol/L [facility] Work Phone: [phone] Urea nitrogen (BldV) [Mass/Vol] 18.3 mg/dL [facility] Work Phone: [phone] No Panel Informationon 02-28 [facility] Work Phone: [phone] Skull Base To Mid Thi ghOrdered By: Danny Sharma on 02-22-2021 [id number] ACCESSION EXAM DATE/TIME PROCEDURE ORDERING PROVIDER [id number] 02/22/2021 10:26 EDT PT w/ CT Scan Skull Base MD EDITH, DANNY to [facility] CPT code 40333 A9552 Reason For Exam (PT w/ CT Scan Skull Base to Midthigh) Endometrial Cancer, Assess response to treatment Report PET/CT CLINICAL INDICATION: Endometrial cancer restaging. Following the intravenous administration of 13.7 mCi of fluorine-18 fluorodeoxyglucose (FDG) a PET scan of the torso was acquired after an approximately one hour delay. Blood glucose level at the time of injection was 193 mg/dl. Contemporaneously, noncontrast axial CT images were obtained using low dose technique. The images were reconstructed in three orthogonal planes and digitally coregistered. The CT data was used for attenuation correction as well. COMPARISON: PET/CT dated 12/08/2020 NECK AND CHEST: No abnormal FDG accumulation is seen within the neck or chest to suggest malignant adenopathy or pulmonary nodules. ABDOMEN AND PELVIS: There is a mildly enlarged left para-aortic lymph node which measures approximately 1.6 cm in diameter on the low-dose CT images. This node demonstrates abnormally increased FDG uptake (maximal SUV 8.6). Both the size and intensity of FDG accumulation within this node has increased when compared to the study from 12/08/2020. No additional areas of abnormal FDG accumulation are identified within the abdomen or pelvis. On the low-dose CT images, fatty infiltration of the liver is noted. Cholelithiasis is also present. MUSCULOSKELETAL: Unremarkable. No evidence of osseous metastatic disease. IMPRESSION: There is fairly intense, abnormal FDG accumulation within a mildly enlarged left para-aortic lymph node, consistent with residual or recurrent malignancy. When compared to the examination dated 12/08/2020, both the size and intensity of FDG uptake within this node has increased. No new areas of abnormal FDG accumulation are identified. PET Report Report Dictated on --- Final --- Dictating Physician: MD TSE JONATHAN R Signed Date and Time: 02/22/2021 3:01 pm Signed by: MD TSE JONATHAN R Transcribed Date and Time: 02/22/2021 3:02 [facility] Work Phone: Matt, [facility] Incoming Radiology Results From [facility] - 02/22/2021 3:02 PM EDT [facility]: [id number] PET ACCESSION EXAM DATE/TIME PROCEDURE ORDERING PROVIDER [id number] 02/22/2021 10:26 EDT PT w/ CT Scan Skull Base [facility] 62408 A9552 Reason For Exam (PT w/ CT Scan Skull Base to Midthigh) Endometrial Cancer, Assess response to treatment Report PET/CT CLINICAL INDICATION: Endometrial cancer restaging. Following the intravenous administration of 13.7 mCi of fluorine-18 fluorodeoxyglucose (FDG) a PET scan of the torso was acquired after an approximately one hour delay. Blood glucose level at the time of injection was 193 mg/dl. Contemporaneously, noncontrast axial CT images were obtained using low dose technique. The images were reconstructed in three orthogonal planes and digitally coregistered. The CT data was used for attenuation correction as well. COMPARISON: PET/CT dated 12/08/2020 NECK AND CHEST: No abnormal FDG accumulation is seen within the neck or chest to suggest malignant adenopathy or pulmonary nodules. ABDOMEN AND PELVIS: There is a mildly enlarged left para-aortic lymph node which measures approximately 1.6 cm in diameter on the low-dose CT images. This node demonstrates abnormally increased FDG uptake (maximal SUV 8.6). Both the size and intensity of FDG accumulation within this node has increased when compared to the study from 12/08/2020. No additional areas of abnormal FDG accumulation are identified within the abdomen or pelvis. On the low-dose CT images, fatty infiltration of the liver is noted. Cholelithiasis is also present. MUSCULOSKELETAL: Unremarkable. No evidence of osseous metastatic disease. IMPRESSION: There is fairly intense, abnormal FDG accumulation within a mildly enlarged left para-aortic lymph node, consistent with residual or recurrent malignancy. When compared to the examination dated 12/08/2020, both the size and intensity of FDG uptake within this node has increased. No new areas of abnormal FDG accumulation are identified. PET Report Report Dictated on --- Final --- Dictating Physician: MD TSE JONATHAN R Signed Date and Time: 02/22/2021 3:01 pm Signed by: MD TSE JONATHAN R Transcribed Date and Time: 02/22/2021 3:02 [facility] Work Phone: [facility] Work Phone: PT w/ CT Scan Skull Base to Midthighon 02-22-2021 PT w/ CT Scan Skull Base to Midthigh [facility]: [id number] PET ACCESSION EXAM DATE/TIME PROCEDURE ORDERING PROVIDER [id number] 02/22/2021 10:26 EDT PT w/ CT Scan Skull Base MD EDITH, DANNY to [facility] CPT code 84848 A9552 Reason For Exam (PT w/ CT Scan Skull Base to Midthigh) Endometrial Cancer, Assess response to treatment Report PET/CT CLINICAL INDICATION: Endometrial cancer restaging. Following the intravenous administration of 13.7 mCi of fluorine-18 fluorodeoxyglucose (FDG) a PET scan of the torso was acquired after an approximately one hour delay. Blood glucose level at the time of injection was 193 mg/dl. Contemporaneously, noncontrast axial CT images were obtained using low dose technique. The images were reconstructed in three orthogonal planes and digitally coregistered. The CT data was used for attenuation correction as well. COMPARISON: PET/CT dated 12/08/2020 NECK AND CHEST: No abnormal FDG accumulation is seen within the neck or chest to suggest malignant adenopathy or pulmonary nodules. ABDOMEN AND PELVIS: There is a mildly enlarged left para-aortic lymph node which measures approximately 1.6 cm in diameter on the low-dose CT images. This node demonstrates abnormally increased FDG uptake (maximal SUV 8.6). Both the size and intensity of FDG accumulation within this node has increased when compared to the study from 12/08/2020. No additional areas of abnormal FDG accumulation are identified within the abdomen or pelvis. On the low-dose CT images, fatty infiltration of the liver is noted. Cholelithiasis is also present. MUSCULOSKELETAL: Unremarkable. No evidence of osseous metastatic disease. IMPRESSION: There is fairly intense, abnormal FDG accumulation within a mildly enlarged left para-aortic lymph node, consistent with residual or recurrent malignancy. When compared to the examination dated 12/08/2020, both the size and intensity of FDG uptake within this node has increased. No new areas of abnormal FDG accumulation are identified. PET Report Report Dictated on Final Dictating Physician: MD TSE JONATHAN R Signed Date and Time: 02/22/2021 3:01 pm Signed by: MD TSE JONATHAN R Transcribed Date and Time: 02/22/2021 3:02 Normal [facility] CBC Auto DifferentialOrdered By: Danny Sharma on 12-27-2020 Absolute Baso # 0.0 10*3/uL 0.0 - 0.2 10*3/uL [facility] Work Phone: [phone] Absolute Neut # 7.1 10*3/uL High 1.8 - 7.0 10*3/uL [facility] Work Phone: [phone] Basophils/100 WBC (Bld) 0.2 % 0.0 - 2.0 % [facility] Work Phone: [phone] Eosinophils (Bld) [#/Vol] 0.1 10*3/uL 0.0 - 0.5 10*3/uL [facility] Work Phone: [phone] Eosinophils/100 WBC (Bld) 1.0 % 1.0 - 6.0 % [facility] Work Phone: Granulocytes/100 WBC (Bld) 81.8 % High 40.0 - 80.0 % [facility] Work [phone] Hematocrit (Bld) [Volume fraction] 35.0 % 35.0 - 47.0 % [facility] Work Phone: [phone] Hemoglobin.gastrointest inal spec 1 Ql (Stl) 12.0 g/dL 11.7 - 16.0 g/dL [facility] Work Phone: [phone] Interpretation and review of laboratory results Abnormal [facility] Work Phone: [phone] Lymphocytes (Bld) [#/Vol] 0.6 10*3/uL Low 1.0 - 4.3 10*3/uL [facility] Work Phone: [phone] Lymphocytes/100 WBC (Bld) 6.4 % Low 20.0 - 40.0 % [facility] Work Phone: [phone] MCH (RBC) [Entitic mass] 31.9 pg 26.0 - 34.0 pg [facility] Work Phone: [phone] MCHC (RBC) [Mass/Vol] 34.4 % 32.0 - 36.0 % [facility] Work Phone: [phone] MCV (RBC) [Entitic vol] 92.8 fL 79.0 - 98.0 fL [facility] Work Phone: [phone] Monocytes (Bld) [#/Vol] 0.9 10*3/uL High 0.0 - 0.8 10*3/uL [facility] Work Phone: [phone] Monocytes/100 WBC (Bld) 10.6 % High 2.0 - 10.0 % [facility] Work Phone: [phone] Platelet distribution width (Bld) [Ratio] 12.8 % 11.5 - 14.5 % [employer] [facility] Work Phone: [phone] Platelet mean volume (Bld) [Entitic vol] 6.6 fL Low 7.4 - 10.4 fL [employer] Work Phone: [phone] Platelets (Bld) [#/Vol] 256 10*3/uL 140 - 440 10*3/uL [employer] Work Phone: 1 RBC (Bld) [#/Vol] 3.77 10*6/uL Low 3.80 - 5.2 0 10*6/uL [employer] [facility] Work Phone: [phone] WBC (Bld) [#/Vol] 8.7 10*3/uL 3.6 - 10.7 10*3/uL [employer] [facility] Work Phone: [phone] Test Performed by [facility], [address] [place] [id number] [employer] Work Phone: [phone] [employer] [facility] Work Phone: [phone] Comp Metabolic Panelon 12-27 ALT [Catalytic activity/Vol] 40 U/L High 0-34 [facility] Comment on above: Result Comment: The ALT test is performed by an updated assay method. Please note that the reference intervals have been changed and are now sex specific. Performed By: #### C MP3, HEMDF #### [facility] [address] [place] [id number] Calcium [Mass/Vol] 9.0 mg/dL Normal 8.4-10.4 [facility] Comment on above: Performed By: #### C MP3, HEMDF #### [employer] [address] [place] [address] Glucose [Mass/Vol] 197 mg/dL High 70-100 [facility] Comment on above: Performed By: #### C MP3, HEMDF #### [facility] [address] [place] [address] ALP [Catalytic activity/Vol] 78 U/L Normal 38-126 [facility] Comment on above: Performed By: #### C MP3, HEMDF #### [facility] [address] [place] [address] Anion gap [Moles/Vol] 9 mmol/L Normal 3-13 [facility] Comment on above: Performed By: #### C MP3, HEMDF #### [place] [id number] [facility] [place] [address] AST [Catalytic activity/Vol] 46 U/L Normal 15-46 [facility] Comment on above: Performed By: #### C MP3, HEMDF #### [place] [id number] [facility] [place] [address] Bilirubin [Mass/Vol] 0.3 mg/dL Normal 0.2-1.3 [facility] Comment on above: Performed By: #### C MP3, HEMDF #### [place] [id number] [place] [address] CO2 [Moles/Vol] 23 mmol/L Normal 22-30 [facility] Comment on above: Performed By: #### C MP3, HEMDF #### [facility] [address] [facility] [place] [address] Creatinine [Mass/Vol] 0.62 mg/dL Normal 0.52-1.25 [facility] Comment on above: Performed By: #### C MP3, HEMDF #### [place] [id number] [facility] [place] [address] eGFR OTHER > 90.0 Normal >60 [facility] Comment on above: Result Comment: KDIG O guidelines provide the following GFR categories: Stage GFR(ml/min/1.73 m2) Terms G1 >=90 Normal or high G2 60-89 Mildly decreased* G3a 45-59 Mildly to moderately decreased G3b 30-44 Moderately to severely decreased G4 15-29 Severely decreased G5 <15 Kidney failure *Relative to young adult level. In the absence of evidence of kidney damage, neither GFR category G1 nor G2 fulfill the criteria for CKD. The CKD-EPI equation is validated in individuals 18 years of age and older. Currently the best equation for estimating glomerular filtration rate (GFR) from serum creatinine in children is the Bedside Ash equation. It is less accurate in patients with extremes of muscle mass, restriction of dietary protein, ingestion of creatine, extra-renal metabolism of creatinine, or treatment with medications that affect renal tubular creatinine secretion. Performed By: #### C MP3, HEMDF #### [address] [place] [address] GFR/1.73 sq M.predicted among blacks MDRD (S/P/Bld) [Vol rate/Area] mL/min/{1.73_m2} Normal >60 [facility] Comment on above: Performed By: #### C MP3, HEMDF #### [address] [place] [address] Protein [Mass/Vol] 6.8 g/dL Normal 6.3-8.2 [facility] Comment on above: Performed By: #### C MP3, HEMDF #### [address] [place] [address] Urea nitrogen [Mass/Vol] 13 mg/dL Normal 9-20 [facility] Comment on above: Performed By: #### C MP3, HEMDF #### [address] [place] [address] Potassium [Moles/Vol] 4.1 mmol/L Normal 3.5-5.1 [facility] Comment on above: Performed By: #### C MP3, HEMDF #### [address] [place] [address] Sodium [Moles/Vol] 137 mmol/L Normal 135-145 [facility] Comment on above: Performed By: #### C MP3, HEMDF #### [address] [place] [address] Albumin [Mass/Vol] 4.0 g/dL Normal 3.5-5.0 [facility] Comment on above: Performed By: #### C MP3, HEMDF #### [address] [place] [address] Chloride [Moles/Vol] 105 mmol/L Normal 98-107 [facility] Comment on above: Performed By: #### C MP3, HEMDF #### [employer] [facility] [address] [place] [address] Comprehensive Metabolic Pane lOrdered By: Danny Sharma on 12-27-2020 Albumin [Mass/Vol] 4.0 g/dL 3.5 - 5.0 g/dL [facility] Work Phone: [phone] ALP (Bld) [Catalytic activity/Vol] 78 U/L 38 - 126 U/L [facility] Work Phone: [phone] ALT [Catalytic activity/Vol] 40 U/L High 0 - 34 U/L [facility] Work Phone: [phone] Comment on above: The ALT test is perf ormed by an updated assay method. Please note that the reference intervals have been changed and are now sex specific. Anion gap [Moles/Vol] 9 mmol/L 3 - 13 mmol/L [facility] Work Phone: [phone] AST [Catalytic activity/Vol] 46 U/L 15 - 46 U/L [facility] Work Phone: [phone] Bilirubin [Mass/Vol] 0.3 mg/dL 0.2 - 1 .3 mg/dL [facility] Work Phone: [phone] Calcium [Mass/Vol] 9.0 mg/dL 8.4 - 10. 4 mg/dL [facility] Work Phone: [phone] Chloride [Moles/Vol] 105 mmol/L 98 - 10 7 mmol/L [facility] Work Phone: [phone] CO2 [Moles/Vol] 23 mmol/L 22 - 30 mmol/L [facility] Work Phone: [phone] Creatinine [Mass/Vol] 0.62 mg/dL 0.52 - 1.25 mg/dL [facility] Work Phone: [phone] EGFR IF NonAfrican Cypriot >90.0 >60 mL/min [facility] Work Phone: [phone] Comment on above: KDIGO guidelines pro vide the following GFR categories: Stage GFR(ml/min/1.73 m2) Terms G1 >=90 Normal or high G2 60-89 Mildly decreased* G3a 45-59 Mildly to moderately decreased G3b 30-44 Moderately to severely decreased G4 15-29 Severely decreased G5 <15 Kidney failure *Relative to young adult level. In the absence of evidence of kidney damage, neither GFR category G1 nor G2 fulfill the criteria for CKD. The CKD-EPI equation is validated in individuals 18 years of age and older. Currently the best equation for estimating glomerular filtration rate (GFR) from serum creatinine in children is the Bedside Ash equation. It is less accurate in patients with extremes of muscle mass, restriction of dietary protein, ingestion of creatine, extra-renal metabolism of creatinine, or treatment with medications that affect renal tubular creatinine secretion. Free PSA/Total PSA [Mass fraction] 6.8 g/dL 6.3 - 8.2 g/dL [facility] Work Phone: [phone] GFR/1.73 sq M.predicted among blacks MDRD (S/P/Bld) [Vol rate/Area] mL/min/{1.73_m2} >60 mL/min [facility] Work Phone: [phone] Glucose [Mass/Vol] 197 mg/dL High 70 - 100 mg/dL [facility] Work Phone: [phone] Interpretation and review of laboratory results Abnormal [facility] Work Phone: [phone] Potassium [Moles/Vol] 4.1 mmol/L 3.5 - 5.1 mmol/L [facility] Work Phone: [phone] Sodium [Moles/Vol] 137 mmol/L 135 - 145 mmol/L [facility] Work Phone: [phone] Urea nitrogen (BldV) [Mass/Vol] 13 mg/dL 9 - 20 mg/dL [facility] Work Phone: [phone] Test [facility] by [facility], [address] [place] [address] [facility] Work Phone: [phone] [facility] Work Phone: [phone] Hemogram w/ Autodiffon 12-27 Abs Baso Cnt 0.0 10*3/uL Normal 0.0-0.2 [facility] [email or web address] [facility] Comment on above: Performed By: #### C MP3, HEMDF #### [facility] [address] [place] [address] Abs Neutrophile Cnt 7.1 10*3/uL High 1.8-7.0 [facility] Comment on above: Performed By: #### C MP3, HEMDF #### [place] [address] [place] [address] Basophils/100 WBC (Bld) 0.2 % Normal 0.0-2.0 [facility] Comment on above: Performed By: #### C MP3, HEMDF #### [address] [place] [address] Eosinophils (Bld) [#/Vol] 0.1 10*3/uL Normal 0.0-0.5 [facility] Comment on above: Performed By: #### C MP3, HEMDF #### [address] [place] [address] Eosinophils/100 WBC (Bld) 1.0 % Normal 1.0-6.0 [facility] Comment on above: Performed By: #### C MP3, HEMDF #### [address] [place] [address] Erythrocyte distribution width (RBC) [Ratio] 12.8 % Normal 11.5-14.5 [facility] Comment on above: Performed By: #### C MP3, HEMDF #### [address] [place] [address] Granulocytes/100 WBC (Bld) 81.8 % High 40.0-80.0 [facility] Comment on above: Performed By: #### C MP3, HEMDF #### [address] [place] [address] Hematocrit (Bld) [Volume fraction] 35.0 % Normal 35.0-47.0 [facility] Comment on above: Performed By: #### C MP3, HEMDF #### [address] [place] [address] Hemoglobin (Bld) [Mass/Vol] 12.0 g/dL Normal 11.7-16.0 [facility] Comment on above: Performed By: #### C MP3, HEMDF #### [address] [place] [address] Lymphocytes (Bld) [#/Vol] 0.6 10*3/uL Low 1.0-4.3 [facility] Comment on above: Performed By: #### C MP3, HEMDF #### [facility] [address] [place] [address] Lymphocytes/100 WBC (Bld) 6.4 % Low 20.0-40.0 [facility] Comment on above: Performed By: #### C MP3, HEMDF #### [facility] [address] [place] [address] MCH (RBC) [Entitic mass] 31.9 pg Normal 26.0-34.0 [facility] Comment on above: Performed By: #### C MP3, HEMDF #### [place] [address] [place] [address] MCHC 34.4 % Normal 32.0-36.0 [facility] Comment on above: Performed By: #### C MP3, HEMDF #### [address] [place] [address] MCV (RBC) [Entitic vol] 92.8 fL Normal 79.0-98.0 [facility] Comment on above: Performed By: #### C MP3, HEMDF #### [address] [place] [address] Monocytes (Bld) [#/Vol] 0.9 10*3/uL High 0.0-0.8 [facility] Comment on above: Performed By: #### C MP3, HEMDF #### [address] [place] [address] Monocytes/100 WBC (Bld) 10.6 % High 2.0-10.0 [facility] Comment on above: Performed By: #### C MP3, HEMDF #### [place] [address] [place] [address] Platelet mean volume (Bld) [Entitic vol] 6.6 fL Low 7.4-10.4 [facility] Comment on above: Performed By: #### C MP3, HEMDF #### [place] [address] [place] [address] Platelets (Bld) [#/Vol] 256 10*3/uL Normal 140-440 [facility] Comment on above: Performed By: #### C MP3, HEMDF #### [facility] [address] [place] [address] RBC (Bld) [#/Vol] 3.77 10*6/uL Low 3.80-5.20 [facility] Comment on above: Performed By: #### C MP3, HEMDF #### [facility] [address] [place] [address] WBC (Bld) [#/Vol] 8.7 10*3/uL Normal 3.6-10.7 [facility] Comment on above: Performed By: #### C MP3, HEMDF #### [facility] [address] [place] [address] CBCOrdered By: Edis Camarena on 12-18-2020 Hemoglobin.gastrointest inal spec 1 Ql (Stl) 11.8 g/dL 11.7 - 16.0 g/dL [facility] Work Phone: [phone] Interpretation and review of laboratory results Abnormal [facility] Work Phone: [phone] MCHC (RBC) [Mass/Vol] 34.5 % 32.0 - 36.0 % [facility] Work Phone: [phone] Platelet distribution width (Bld) [Ratio] 13.7 % 11.5 - 14.5 % [facility] Work Phone: [phone] Test Performed by [facility], [address] [place], [place] [address] [place], [place] [address] Work Phone: [phone] [facility] Work Phone: [phone] Hemogramon 12-18-2020 Erythrocyte distribution width (RBC) [Ratio] 13.7 % Normal 11.5-14.5 [facility] [employer] Comment on above: Performed By: #### H EMOG, PT #### [facility] [address] [place] [address] Hemoglobin (Bld) [Mass/Vol] 11.8 g/dL Normal 11.7-16.0 [facility] Comment on above: Performed By: #### H EMOG, PT #### [employer] [address] [place] [address] MCHC 34.5 % Normal 32.0-36.0 [facility] Comment on above: Performed By: #### H EMOG, PT #### [facility] [address] [place] [address] HemogramOrdered By: Edis perera on 12-18-2020 Hematocrit (Bld) [Volume fraction] 34.3 % Low 35.0-47.0 [facility] Work Phone: [phone] Comment on above: Performed By: #### H EMOG, PT #### [facility] [address] [place] [address] MCH (RBC) [Entitic mass] 32.6 pg Normal 26.0-34.0 [facility] Work Phone: [phone] Comment on above: Performed By: #### H EMOG, PT #### [facility] [address] [place] [address] MCV (RBC) [Entitic vol] 94.4 fL Normal 79.0-98.0 [facility] Work Phone: [phone] Comment on above: Performed By: #### H EMOG, PT #### [facility] [address] [place] [address] Platelet mean volume (Bld) [Entitic vol] 7.2 fL Low 7.4-10.4 [facility] Work Phone: [phone] Comment on above: Performed By: #### H EMOG, PT #### [facility] [address] [place] [address] Platelets (Bld) [#/Vol] 211 10*3/uL Normal 140-440 [facility] Work Phone: [phone] Comment on above: Performed By: #### H EMOG, PT #### [facility] [address] [place] [address] RBC (Bld) [#/Vol] 3.63 10*6/uL Low 3.80-5.20 [facility] Work Phone: [phone] Comment on above: Performed By: #### H EMOG, PT #### [facility] [address] [place] [address] WBC (Bld) [#/Vol] 5.7 10*3/uL Normal 3.6-10.7 [facility] Work Phone: Comment on above: Performed By: #### H ZEKE, PT #### [facility] [address] [place] [address] OPERATIVE REPORTOrdered By: 3m Scanning on 12-18-2020 [facility] Work Phone: Prothrombin Timeon INR 1.0 Normal 0.9-1.1 [facility] Comment on above: Result Comment: Dillon mmended Anticoagulant Therapy: SEE BELOW ----- INR of 2.0 - 3.0 : - Prophylaxis of Venous Thrombosis (high-risk surgery) - Treatment of Venous Thrombosis - Treatment of Pulmonary Embolism (Includes tissue heart valves, Acute Myocardial Infarction to prevent systemic embolism, Valvular Heart Disease, and Atrial Fibrillation) ----- INR of 2.5 - 3.5 : - Mechanical Prosthetic Valves (high risk) - If oral anticoagulant therapy is used to prevent Myocardial Infarction Performed By: #### H ZEKE, PT #### [facility] [address] [place] [address] PT Coag (PPP) [Time] 10.9 s Normal 9.0-12.0 [facility] Comment on above: Result Comment: . Performed By: #### H ZEKE, PT #### [facility] [address] [place] [address] Protime-INROrdered By: Edis Camarena on 12-18-2020 INR Coag (Bld) [Relative time] 1.0 {INR} [facility] Work Phone: Comment on above: Recommended Anticoag ulant Therapy: SEE BELOW ----- INR of 2.0 - 3.0 : - Prophylaxis of Venous Thrombosis (high-risk surgery) - Treatment of Venous Thrombosis - Treatment of Pulmonary Embolism (Includes tissue heart valves, Acute Myocardial Infarction to prevent systemic embolism, Valvular Heart Disease, and Atrial Fibrillation) ----- INR of 2.5 - 3.5 : - Mechanical Prosthetic Valves (high risk) - If oral anticoagulant therapy is used to prevent Myocardial Infarction PT Coag (PPP) [Time] 10.9 s 9.0 - 12.0 s [facility] Work Phone: Comment on above: . Test Performed by [employer], [address] [place], [place], [place] [address] [facility] Work Phone: [phone] [facility] Work Phone: Special treatments and proce duresOrdered By: Danny Sharma on 12-18-2020 Patient Name: DANNY PINK Special Procedures ACCESSION EXAM DATE/TIME PROCEDURE ORDERING PROVIDER [id number] 12/18/2020 13:52 EDT X[facility] Special Angiography MD SHARMA ROBIN Procedure Reason For Exam (XA Special Angiography Procedure) Mediport placement Report CLINICAL HISTORY: Endometrial cancer PROCEDURE: Right-sided Mediport placement. Physicians: Dr. Camarena MEDICATIONS: Local lidocaine with epinephrine, 2 mg Versed IV, 100 mcg fentanyl IV, 1 g Ancef IV EBL: Minimal Specimen sent: None. COMPLICATIONS: None. Fluoroscopy time: Less than 0.1 minutes Angiographic runs: 0 Fluoroscopic spot images: 0 Fluoroscopic saved images were obtained. These images do NOT add additional exposure to ionizing radiation and were captured electronically from the imaging chain. Procedural note: All of the risk and benefits of the procedure were explained to the patient and informed consent was obtained and documented. The patient was brought into the angiography suite and placed in a supine position. A timeout was performed. Conscious sedation was performed by a trained sedation nurse under my direct supervision. Intraservice time was 25 minutes. The patient's right internal jugular vein was interrogated with ultrasound and found to be widely patent. A permanent ultrasound image was stored to the patient's record. The patient's right neck and chest were prepped and draped in the usual sterile fashion. Maximal sterile barrier technique was utilized. All elements of maximal sterile barrier technique were utilized including a hat, mask, sterile gown, sterile gloves, and a large sterile sheet. Chlorhexidine was utilized for cutaneous antisepsis. Sterile ultrasound gel and a sterile ultrasound cover were also used. The overlying subcutaneous tissues of the right neck were anesthetized using 2 percent lidocaine. Under direct ultrasound visualization, a 21-gauge micropuncture needle was advanced into the right internal jugular vein. Following this, a 0.018 micropuncture wire was advanced through the needle into the IVC. A spot image was performed. This was then up sized to a 0.035 J-wire. Special Procedures Report Attention was then directed to the patient's right chest. A 1 inch incision was made overlying the right second rib. A pocket was made using blunt dissection. Following this, the Mediport and catheter were tunneled from the pocket to the venotomy site. The catheter was then cut to the appropriate length. A peel-away sheath was advanced down the initial J-wire and the catheter was placed through the peel-away sheath. Postprocedural fluoroscopy demonstrated the catheter tip to be at the cavoatrial junction. The pocket was then closed using 3-0 Vicryl in a buried interrupted fashion. Overlying Dermabond was then applied to the chest incision as well as the venotomy at the neck. The patient tolerated the procedure well. FINDINGS: Tip of the Mediport catheter in appropriate position. IMPRESSION: Successful uncomplicated fluoroscopic and ultrasound-guided placement of a right-sided Mediport catheter. The port is ready for use. The Dermabond dressing should falloff by itself in approximately 7 to 10 days. The patient was counseled to avoid any immersion in water for two weeks. They were also advised to keep the area as dry as possible. Report Dictated on --- Final --- Dictating Physician: MD CAMARENA KEVIN Signed Date and Time: 12/18/2020 2:18 pm Signed by: MD CAMARENA KEVIN Transcribed Date and Time: 12/18/2020 2:19 [facility] Work Phone: [facility] Results From [facility] - 12/18/2020 2:20 PM EDT Patient Name: DANNY PINK Special Procedures ACCESSION EXAM DATE/TIME PROCEDURE ORDERING PROVIDER [id number] 12/18/2020 13:52 EDT XA Special Angiography MD SHARMA ROBIN Procedure Reason For Exam (XA Special Angiography Procedure) Mediport placement Report CLINICAL HISTORY: Endometrial cancer PROCEDURE: Right-sided Mediport placement. Physicians: Dr. Camarena MEDICATIONS: Local lidocaine with epinephrine, 2 mg Versed IV, 100 mcg fentanyl IV, 1 g Ancef IV EBL: Minimal Specimen sent: None. COMPLICATIONS: None. Fluoroscopy time: Less than 0.1 minutes Angiographic runs: 0 Fluoroscopic spot images: 0 Fluoroscopic saved images were obtained. These images do NOT add additional exposure to ionizing radiation and were captured electronically from the imaging chain. Procedural note: All of the risk and benefits of the procedure were explained to the patient and informed consent was obtained and documented. The patient was brought into the angiography suite and placed in a supine position. A timeout was performed. Conscious sedation was performed by a trained sedation nurse under my direct supervision. Intraservice time was 25 minutes. The patient's right internal jugular vein was interrogated with ultrasound and found to be widely patent. A permanent ultrasound image was stored to the patient's record. The patient's right neck and chest were prepped and draped in the usual sterile fashion. Maximal sterile barrier technique was utilized. All elements of maximal sterile barrier technique were utilized including a hat, mask, sterile gown, sterile gloves, and a large sterile sheet. Chlorhexidine was utilized for cutaneous antisepsis. Sterile ultrasound gel and a sterile ultrasound cover were also used. The overlying subcutaneous tissues of the right neck were anesthetized using 2 percent lidocaine. Under direct ultrasound visualization, a 21-gauge micropuncture needle was advanced into the right internal jugular vein. Following this, a 0.018 micropuncture wire was advanced through the needle into the IVC. A spot image was performed. This was then up sized to a 0.035 J-wire. Special Procedures Report Attention was then directed to the patient's right chest. A 1 inch incision was made overlying the right second rib. A pocket was made using blunt dissection. Following this, the Mediport and catheter were tunneled from the pocket to the venotomy site. The catheter was then cut to the appropriate length. A peel-away sheath was advanced down the initial J-wire and the catheter was placed through the peel-away sheath. Postprocedural fluoroscopy demonstrated the catheter tip to be at the cavoatrial junction. The pocket was then closed using 3-0 Vicryl in a buried interrupted fashion. Overlying Dermabond was then applied to the chest incision as well as the venotomy at the neck. The patient tolerated the procedure well. FINDINGS: Tip of the Mediport catheter in appropriate position. IMPRESSION: Successful uncomplicated fluoroscopic and ultrasound-guided placement of a right-sided Mediport catheter. The port is ready for use. The Dermabond dressing should falloff by itself in approximately 7 to 10 days. The patient was counseled to avoid any immersion in water for two weeks. They were also advised to keep the area as dry as possible. Report Dictated on --- Final --- Dictating Physician: MD CAMARENA KEVIN Signed Date and Time: 12/18/2020 2:18 pm Signed by: MD CAMARENA KEVIN Transcribed Date and Time: 12/18/2020 2:19 [facility] Work Phone: [facility] Work Phone: XA Special Angiography [facility] 12-18-2020 XA Special Angiography Procedure Patient Name: DANNY PINK Special Procedures ACCESSION EXAM DATE/TIME PROCEDURE ORDERING PROVIDER [id number] 12/18/2020 13:52 EDT XA Special Angiography MD SHARMA ROBIN Procedure Reason For Exam (XA Special Angiography Procedure) Mediport placement Report CLINICAL HISTORY: Endometrial cancer PROCEDURE: Right-sided Mediport placement. Physicians: Dr. Camarena MEDICATIONS: Local lidocaine with epinephrine, 2 mg Versed IV, 100 mcg fentanyl IV, 1 g Ancef IV EBL: Minimal Specimen sent: None. COMPLICATIONS: None. Fluoroscopy time: Less than 0.1 minutes Angiographic runs: 0 Fluoroscopic spot images: 0 Fluoroscopic saved images were obtained. These images do NOT add additional exposure to ionizing radiation and were captured electronically from the imaging chain. Procedural note: All of the risk and benefits of the procedure were explained to the patient and informed consent was obtained and documented. The patient was brought into the angiography suite and placed in a supine position. A timeout was performed. Conscious sedation was performed by a trained sedation nurse under my direct supervision. Intraservice time was 25 minutes. The patient's right internal jugular vein was interrogated with ultrasound and found to be widely patent. A permanent ultrasound image was stored to the patient's record. The patient's right neck and chest were prepped and draped in the usual sterile fashion. Maximal sterile barrier technique was utilized. All elements of maximal sterile barrier technique were utilized including a hat, mask, sterile gown, sterile gloves, and a large sterile sheet. Chlorhexidine was utilized for cutaneous antisepsis. Sterile ultrasound gel and a sterile ultrasound cover were also used. The overlying subcutaneous tissues of the right neck were anesthetized using 2 percent lidocaine. Under direct ultrasound visualization, a 21-gauge micropuncture needle was advanced into the right internal jugular vein. Following this, a 0.018 micropuncture wire was advanced through the needle into the IVC. A spot image was performed. This was then up sized to a 0.035 J-wire. Special Procedures Report Attention was then directed to the patient's right chest. A 1 inch incision was made overlying the right second rib. A pocket was made using blunt dissection. Following this, the Mediport and catheter were tunneled from the pocket to the venotomy site. The catheter was then cut to the appropriate length. A peel-away sheath was advanced down the initial J-wire and the catheter was placed through the peel-away sheath. Postprocedural fluoroscopy demonstrated the catheter tip to be at the cavoatrial junction. The pocket was then closed using 3-0 Vicryl in a buried interrupted fashion. Overlying Dermabond was then applied to the chest incision as well as the venotomy at the neck. The patient tolerated the procedure well. FINDINGS: Tip of the Mediport catheter in appropriate position. IMPRESSION: Successful uncomplicated fluoroscopic and ultrasound-guided placement of a right-sided Mediport catheter. The port is ready for use. The Dermabond dressing should falloff by itself in approximately 7 to 10 days. The patient was counseled to avoid any immersion in water for two weeks. They were also advised to keep the area as dry as possible. Report Dictated on Final Dictating Physician: MD CAMARENA KEVIN Signed Date and Time: 12/18/2020 2:18 pm Signed by: MD CAMARENA KEVIN Transcribed Date and Time: 12/18/2020 2:19 Normal [facility] PT w/ CT Scan Skull Base to Midthighon 12-08-2020 PT w/ CT Scan Skull Base to Midthigh Patient Name: DANNY PINK PET ACCESSION EXAM DATE/TIME PROCEDURE ORDERING PROVIDER [id number] 12/08/2020 18:36 EDT PT w/ CT Scan Skull Base MD EDITH, DANNY to Midthigh CPT code 82288 A9552 Reason For Exam (PT w/ CT Scan Skull Base to Midthigh) recurrent endometrial cancer, possible vaginal recurrence, periaortic metastasis; assess for other sites of disease Report History: Endometrial cancer restaging Following the intravenous administration of 12.0 mCi of tracer a PET scan of the torso was acquired per protocol. Contemporaneously, noncontrast axial CT images were obtained using low dose technique. The images were reconstructed in three orthogonal planes and digitally coregistered. 3-D imaging created and reviewed on independent 3-D workstation. The CT data was used for attenuation correction as well. Comparisons available: 08/25/2020 Brain: Poorly evaluated limited sections with this technique. Neck and chest: No moderate to marked abnormal tracer accumulation is seen within the neck or chest to suggest a high likelihood of malignancy. Abdomen and pelvis: 1.2 cm lymph node left periaortic region with SUV maximum 3.6. Visually stable compared to most recent PET/CT. Poorly defined focus of relatively intense increased activity left vaginal sidewall SUV maximum 6.4, not readily appreciated previously. Possible small focus of increased activity left adrenal gland SUV maximum 3.9, of uncertain significance probably present previously; no underlying lesion visible. Note made of fatty liver, gallstone, atherosclerosis. Musculoskeletal: No foci of moderate or marked abnormal uptake on a pattern to suggest high likelihood of malignancy. PET Report Impression: Essentially stable hypermetabolic retroperitoneal lymph node adjacent to the aorta. Residual tumor suspected; inflammation possible. Poorly defined focus of increased activity left vaginal sidewall suspicious for neoplasm. Recommend direct visualization. Focus of apparent increased activity left adrenal gland without underlying mass lesion visible; attention on follow-up recommended. Report Dictated on Final Dictated: 12/11/2020 11:40 am Dictating Physician: MD PINEDA JOHN Signed Date and Time: 12/11/2020 12:03 pm Signed by: MD PINEDA JOHN Transcribed Date and Time: 12/11/2020 11:40 Normal [facility] Vit D 25-OH, Totalon 06-30-2 021 Vit D 25-OH, Total 26 ng/mL Low 30-100 [facility] Comment on above: Result Comment: Ther apy is based on measurement of Total 25-OHD with the following classification levels: Less than 20 ng/mL: Indicative of Vit D deficiency 20-30 ng/mL: Suggests Vit D insufficiency Optimal: Greater than or equal to 30 ng/mL Test performed by [facility] Competitive Immunoassay, measuring Total Vitamin D, not individual fractions. Performed By: #### C MP3, HEMDF #### [facility] [address] [place] [address] CBC Auto DifferentialOrdered By: Danny Sharma on 10-17-2020 Absolute Baso # 0.0 10*3/uL 0.0 - 0.2 10*3/uL [employer] Work Phone: 1 Absolute Neut # 4.4 10*3/uL 1.8 - 7.0 10*3/uL [employer] Work Phone: 1 Basophils/100 WBC (Bld) 0.4 % 0.0 - 2.0 % [employer] Work Phone: Eosinophils (Bld) [#/Vol] 0.0 10*3/uL 0.0 - 0.5 10*3/uL [employer] Work Phone: 1 Eosinophils/100 WBC (Bld) 0.7 % Low 1.0 - 6.0 % [employer] Work Phone: 1 Granulocytes/100 WBC (Bld) 75.0 % 40.0 - 80.0 % [employer] Work Phone: 1 Hematocrit (Bld) [Volume fraction] 37.9 % 35.0 - 47.0 % [employer] Work Phone: 1 Hemoglobin.gastrointest inal spec 1 Ql (Stl) 12.7 g/dL 11.7 - 16.0 g/dL [employer] Work Phone: 1 Interpretation and review of laboratory results Abnormal [employer] Work Phone: Lymphocytes (Bld) [#/Vol] 0.7 10*3/uL Low 1.0 - 4.3 10*3/uL [employer] Work Phone: 1 Lymphocytes/100 WBC (Bld) 12.7 % Low 20.0 - 40.0 % [employer] Work Phone: 1 MCH (RBC) [Entitic mass] 32.6 pg 26.0 - 34.0 pg [employer] Work Phone: MCHC (RBC) [Mass/Vol] 33.6 % 32.0 - 36.0 % [employer] Work Phone: MCV (RBC) [Entitic vol] 97.0 fL 79.0 - 98.0 fL [employer] Work Phone: 1 Monocytes (Bld) [#/Vol] 0.7 10*3/uL 0.0 - 0.8 10*3/uL [employer] Work Phone: Monocytes/100 WBC (Bld) 11.2 % High 2.0 - 10.0 % [employer] Phone: Platelet distribution width (Bld) [Ratio] 14.5 % 11.5 - 14.5 % [employer] Phone: Platelet mean volume (Bld) [Entitic vol] 7.8 fL 7.4 - 10.4 fL [employer] Phone: Platelets (Bld) [#/Vol] 203 10*3/uL 140 - 440 10*3/uL [employer] Work Phone: RBC (Bld) [#/Vol] 3.91 10*6/uL 3.80 - 5.2 0 10*6/uL [employer] Work Phone: WBC (Bld) [#/Vol] 5.9 10*3/uL 3.6 - 10.7 10*3/uL [employer] Work Phone: 1 Test Performed by [facility], [address] [place] [address] [employer] Work Phone: [employer] Phone: Comp Metabolic Panelon 10-17 Calcium [Mass/Vol] 9.1 mg/dL Normal 8.4-10.4 [employer] Comment on above: Performed By: #### C MP3, HEMDF, FEIBC, TSH5, ESR #### [facility] [address] [place], [place] #### VD25H #### [facility] [address] [place] [address] ALP [Catalytic activity/Vol] 92 U/L Normal 38-126 [facility] Comment on above: Performed By: #### C MP3, HEMDF, FEIBC, TSH5, ESR #### [place] [address] [facility], [place] #### VD25H #### [facility] [address] [place] [address] ALT [Catalytic activity/Vol] 36 U/L High 0-34 [facility] Comment on above: Result Comment: The ALT test is performed by an updated assay method. Please note that the reference intervals have been changed and are now sex specific. Performed By: #### C MP3, HEMDF, FEIBC, TSH5, ESR #### [place] [address] [facility], [place] #### VD25H #### [facility] [address] [place] [address] Anion gap [Moles/Vol] 12 mmol/L Normal 3-13 [facility] Comment on above: Performed By: #### C MP3, HEMDF, FEIBC, TSH5, ESR #### [place] [address] [place] #### VD25H #### [facility] [address] [place] [address] AST [Catalytic activity/Vol] 36 U/L Normal 15-46 [facility] Comment on above: Performed By: #### C MP3, HEMDF, FEIBC, TSH5, ESR #### [place] [address] [facility], [place] #### VD25H #### [facility] [address] [place] [address] Bilirubin [Mass/Vol] 0.4 mg/dL Normal 0.2-1.3 [facility] Comment on above: Performed By: #### C MP3, HEMDF, FEIBC, TSH5, ESR #### [facility] [address] [place], [place] #### VD25H #### [facility] [address] [place] [address] CO2 [Moles/Vol] 18 mmol/L Low 22-30 [facility] Comment on above: Performed By: #### C MP3, HEMDF, FEIBC, TSH5, ESR #### [facility] [address] [place], [place] #### VD25H #### [facility] [address] [place] [address] Creatinine [Mass/Vol] 0.67 mg/dL Normal 0.52-1.25 [facility] Comment on above: Performed By: #### C MP3, HEMDF, FEIBC, TSH5, ESR #### [address] #### VD25H #### [facility] [address] [place] [address] eGFR OTHER > 90.0 Normal >60 [facility] Comment on above: Result Comment: KDIG O guidelines provide the following GFR categories: Stage GFR(ml/min/1.73 m2) Terms G1 >=90 Normal or high G2 60-89 Mildly decreased* G3a 45-59 Mildly to moderately decreased G3b 30-44 Moderately to severely decreased G4 15-29 Severely decreased G5 <15 Kidney failure *Relative to young adult level. In the absence of evidence of kidney damage, neither GFR category G1 nor G2 fulfill the criteria for CKD. The CKD-EPI equation is validated in individuals 18 years of age and older. Currently the best equation for estimating glomerular filtration rate (GFR) from serum creatinine in children is the Bedside Ash equation. It is less accurate in patients with extremes of muscle mass, restriction of dietary protein, ingestion of creatine, extra-renal metabolism of creatinine, or treatment with medications that affect renal tubular creatinine secretion. Performed By: #### C MP3, HEMDF, FEIBC, TSH5, ESR #### [place] [address] [address] [place], [place] #### VD25H #### [facility] [address] [place] [address] GFR/1.73 sq M.predicted among blacks MDRD (S/P/Bld) [Vol rate/Area] mL/min/{1.73_m2} Normal >60 [facility] Comment on above: Performed By: #### C MP3, HEMDF, FEIBC, TSH5, ESR #### [facility] [address] [facility], [place] #### VD25H #### [facility] [address] [place] [address] Glucose [Mass/Vol] 255 mg/dL High 70-100 [facility] Comment on above: Performed By: #### C MP3, HEMDF, FEIBC, TSH5, ESR #### [place] [address] [facility], [place] #### VD25H #### [facility] [address] [place] [address] Protein [Mass/Vol] 7.1 g/dL Normal 6.3-8.2 [facility] Comment on above: Performed By: #### C MP3, HEMDF, FEIBC, TSH5, ESR #### [place] [address] [facility], [place] #### VD25H #### [facility] [address] [place] [address] Urea nitrogen [Mass/Vol] 13 mg/dL Normal 7-20 [facility] Comment on above: Performed By: #### C MP3, HEMDF, FEIBC, TSH5, ESR #### [place] [address] [facility], [place] #### VD25H #### [facility] [address] [place] [address] Albumin [Mass/Vol] 4.2 g/dL Normal 3.5-5.0 [facility] Comment on above: Performed By: #### C MP3, HEMDF, FEIBC, TSH5, ESR #### [place] [address] [facility], [place] #### VD25H #### [facility] [address] [place] [address] Chloride [Moles/Vol] 108 mmol/L High 98-107 [facility] Comment on above: Performed By: #### C MP3, HEMDF, FEIBC, TSH5, ESR #### [facility] [address] [place] #### VD25H #### [facility] [address] [place] [address] Potassium [Moles/Vol] 4.2 mmol/L Normal 3.5-5.1 [facility] Comment on above: Performed By: #### C MP3, HEMDF, FEIBC, TSH5, ESR #### [facility] [address] [place] #### VD25H #### [facility] [address] [place] [address] Sodium [Moles/Vol] 138 mmol/L Normal 135-145 [facility] Comment on above: Performed By: #### C MP3, HEMDF, FEIBC, TSH5, ESR #### [place] [address] [place] [address] #### VD25H #### [facility] [address] [place] [address] Comprehensive Metabolic Pane lOrdered By: Danny Sharma on 10-17-2020 Albumin [Mass/Vol] 4.2 g/dL 3.5 - 5.0 g/dL [facility] Work Phone: ALP (Bld) [Catalytic activity/Vol] 92 U/L 38 - 126 U/L [facility] Work Phone: ALT [Catalytic activity/Vol] 36 U/L High 0 - 34 U/L [facility] Work Phone: Comment on above: The ALT test is perf ormed by an updated assay method. Please note that the reference intervals have been changed and are now sex specific. Anion gap [Moles/Vol] 12 mmol/L 3 - 13 mmol/L [facility] Work Phone: AST [Catalytic activity/Vol] 36 U/L 15 - 46 U/L [facility] Work Phone: [phone] Bilirubin [Mass/Vol] 0.4 mg/dL 0.2 - 1 .3 mg/dL [facility] Work Phone: [phone] Calcium [Mass/Vol] 9.1 mg/dL 8.4 - 10. 4 mg/dL [facility] Work Phone: [phone] Chloride [Moles/Vol] 108 mmol/L High 98 - 10 7 mmol/L [facility] Work Phone: [phone] CO2 [Moles/Vol] 18 mmol/L Low 22 - 30 mmol/L [facility] Work Phone: [phone] Creatinine [Mass/Vol] 0.67 mg/dL 0.52 - 1.25 mg/dL [facility] Work Phone: [phone] EGFR IF NonAfrican Cypriot >90.0 >60 mL/min [facility] Work Phone: [phone] Comment on above: KDIGO guidelines pro vide the following GFR categories: Stage GFR(ml/min/1.73 m2) Terms G1 >=90 Normal or high G2 60-89 Mildly decreased* G3a 45-59 Mildly to moderately decreased G3b 30-44 Moderately to severely decreased G4 15-29 Severely decreased G5 <15 Kidney failure *Relative to young adult level. In the absence of evidence of kidney damage, neither GFR category G1 nor G2 fulfill the criteria for CKD. The CKD-EPI equation is validated in individuals 18 years of age and older. Currently the best equation for estimating glomerular filtration rate (GFR) from serum creatinine in children is the Bedside Ash equation. It is less accurate in patients with extremes of muscle mass, restriction of dietary protein, ingestion of creatine, extra-renal metabolism of creatinine, or treatment with medications that affect renal tubular creatinine secretion. Free PSA/Total PSA [Mass fraction] 7.1 g/dL 6.3 - 8.2 g/dL [facility] Work Phone: [phone] GFR/1.73 sq M.predicted among blacks MDRD (S/P/Bld) [Vol rate/Area] mL/min/{1.73_m2} >60 mL/min [facility] Work Phone: [phone] Glucose [Mass/Vol] 255 mg/dL High 70 - 100 mg/dL [facility] Work Phone: [phone] Interpretation and review of laboratory results Abnormal [facility] Work Phone: [phone] Potassium [Moles/Vol] 4.2 mmol/L 3.5 - 5.1 mmol/L [facility] Work Phone: [phone] Sodium [Moles/Vol] 138 mmol/L 135 - 145 mmol/L [facility] Work Phone: [phone] Urea nitrogen (BldV) [Mass/Vol] 13 mg/dL 7 - 20 mg/dL [facility] Work Phone: [phone] Test Performed by [facility], [address] [place] [address] [facility] Work Phone: [phone] [facility] Work Phone: [phone] Hemogram w/ Autodiffon 10-17 Abs Baso Cnt 0.0 10*3/uL Normal 0.0-0.2 [facility] Comment on above: Performed By: #### C MP3, HEMDF, FEIBC, TSH5, ESR #### [facility] [address] [address] #### VD25H #### [facility] [address] [place] [address] Abs Neutrophile Cnt 4.4 10*3/uL Normal 1.8-7.0 [facility] Comment on above: Performed By: #### C MP3, HEMDF, FEIBC, TSH5, ESR #### [facility] [address] #### VD25H #### [facility] [address] [facility] [place] [address] Basophils/100 WBC (Bld) 0.4 % Normal 0.0-2.0 [facility] Comment on above: Performed By: #### C MP3, HEMDF, FEIBC, TSH5, ESR #### [facility] [address] [address] #### VD25H #### [facility] [address] [place] [address] Eosinophils (Bld) [#/Vol] 0.0 10*3/uL Normal 0.0-0.5 [facility] Comment on above: Performed By: #### C MP3, HEMDF, FEIBC, TSH5, ESR #### [facility] [address] [place], [place] #### VD25H #### [facility] [address] [place] [address] Eosinophils/100 WBC (Bld) 0.7 % Low 1.0-6.0 [facility] Comment on above: Performed By: #### C MP3, HEMDF, FEIBC, TSH5, ESR #### [address] #### VD25H #### [facility] [address] [place] [address] Erythrocyte distribution width (RBC) [Ratio] 14.5 % Normal 11.5-14.5 [facility] Comment on above: Performed By: #### C MP3, HEMDF, FEIBC, TSH5, ESR #### [address] #### VD25H #### [facility] [address] [place] [address] Granulocytes/100 WBC (Bld) 75.0 % Normal 40.0-80.0 [facility] Comment on above: Performed By: #### C MP3, HEMDF, FEIBC, TSH5, ESR #### [address] #### VD25H #### [facility] [address] [place] [address] Hematocrit (Bld) [Volume fraction] 37.9 % Normal 35.0-47.0 [facility] Comment on above: Performed By: #### C MP3, HEMDF, FEIBC, TSH5, ESR #### [address] #### VD25H #### [facility] [address] [place] [address] Hemoglobin (Bld) [Mass/Vol] 12.7 g/dL Normal 11.7-16.0 [facility] Comment on above: Performed By: #### C MP3, HEMDF, FEIBC, TSH5, ESR #### [facility] [address] [place] #### VD25H #### [facility] [address] [place] [address] Lymphocytes (Bld) [#/Vol] 0.7 10*3/uL Low 1.0-4.3 [facility] Comment on above: Performed By: #### C MP3, HEMDF, FEIBC, TSH5, ESR #### [address] #### VD25H #### [facility] [address] [place] [address] Lymphocytes/100 WBC (Bld) 12.7 % Low 20.0-40.0 [facility] Comment on above: Performed By: #### C MP3, HEMDF, FEIBC, TSH5, ESR #### [address] #### VD25H #### [facility] [address] [place] [address] MCH (RBC) [Entitic mass] 32.6 pg Normal 26.0-34.0 [facility] Comment on above: Performed By: #### C MP3, HEMDF, FEIBC, TSH5, ESR #### [place] [address] [place] #### VD25H #### [facility] [address] [place] [address] MCHC 33.6 % Normal 32.0-36.0 [facility] Comment on above: Performed By: #### C MP3, HEMDF, FEIBC, TSH5, ESR #### [address] #### VD25H #### [facility] [address] [place] [address] MCV (RBC) [Entitic vol] 97.0 fL Normal 79.0-98.0 [facility] Comment on above: Performed By: #### C MP3, HEMDF, FEIBC, TSH5, ESR #### [facility] [address] [place] #### VD25H #### [facility] [address] [place] [address] Monocytes (Bld) [#/Vol] 0.7 10*3/uL Normal 0.0-0.8 [facility] Comment on above: Performed By: #### C MP3, HEMDF, FEIBC, TSH5, ESR #### [place] [address] [place], [place] #### VD25H #### [facility] [address] [place] [address] Monocytes/100 WBC (Bld) 11.2 % High 2.0-10.0 [facility] Comment on above: Performed By: #### C MP3, HEMDF, FEIBC, TSH5, ESR #### [place] [address] [place] #### VD25H #### [facility] [address] [place] [address] Platelet mean volume (Bld) [Entitic vol] 7.8 fL Normal 7.4-10.4 [facility] Comment on above: Performed By: #### C MP3, HEMDF, FEIBC, TSH5, ESR #### [place] [address] [place] #### VD25H #### [facility] [address] [place] [address] Platelets (Bld) [#/Vol] 203 10*3/uL Normal 140-440 [facility] Comment on above: Performed By: #### C MP3, HEMDF, FEIBC, TSH5, ESR #### [place] [address] [place] #### VD25H #### [facility] [address] [place] [address] RBC (Bld) [#/Vol] 3.91 10*6/uL Normal 3.80-5.20 [facility] Comment on above: Performed By: #### C MP3, HEMDF, FEIBC, TSH5, ESR #### [facility] [address] [place], [place] #### VD25H #### [facility] [address] [place] [address] WBC (Bld) [#/Vol] 5.9 10*3/uL Normal 3.6-10.7 [facility] Comment on above: Performed By: #### C MP3, HEMDF, FEIBC, TSH5, ESR #### [place] [address] [place] #### VD25H #### [facility] [address] [place] [address] Iron AND TIBCon 10-17-2020 Saturation 20 % Normal 15-50 [facility] Comment on above: Performed By: #### C MP3, HEMDF, FEIBC, TSH5, ESR #### [place] [address] [place] #### VD25H #### [facility] [address] [place] [address] Total Iron Binding Cap. 386 ug/dL Normal 261-497 [facility] Comment on above: Performed By: #### C MP3, HEMDF, FEIBC, TSH5, ESR #### [facility] [address] [place] #### VD25H #### [facility] [address] [place] [address] Iron, Total 77 ug/dL Normal 37-170 [facility] Comment on above: Performed By: #### C MP3, HEMDF, FEIBC, TSH5, ESR #### [facility] [address] [place] #### VD25H #### [facility] [address] [place] [address] Iron and TIBCOrdered By: Ozzy Sharma on 10-17-2020 Iron [Mass/Vol] 77 ug/dL 37 - 170 ug/dL [facility] Work Phone: [phone] Sat 20 % 15 - 50 % [facility] Work Phone: [phone] TIBC 386 ug/dL 261 - 497 ug/dL [facility] Work Phone: [phone] Test Performed by [facility], [address] [place] [address] [facility] Work Phone: [phone] [facility] Work Phone: [phone] Sed Rateon 10-17-2020 Sed Rate 25 mm/h High 0-20 [facility] Comment on above: Performed By: #### C MP3, HEMDF, FEIBC, TSH5, ESR #### [facility] [address] [place] [id number] #### VD25H #### [facility] [address] [place] [address] Sedimentation RateOrdered By : Danny Sharma on 10-17-2020 Interpretation and review of laboratory results Abnormal [facility] Work Phone: [phone] Sed Rate 25 mm/h High 0 - 20 mm/h [facility] Work Phone: [phone] Test Performed by [facility], [address] [place] [address] [facility] Work Phone: [phone] [facility] [facility] Work Phone: [phone] TSH without ReflexOrdered By : Danny Sharma on 10-17-2020 TSH Qn 1.376 u[IU]/mL 0.465 - 4.680 u[IU]/mL [facility] Work Phone: [phone] Test Performed by [facility], [address] [place] [address] [facility] Work Phone: [phone] [facility] Work Phone: [phone] Thyroid Stim. Hormoneon 09-20 Thyroid Stim. Hormone 1.376 u[IU]/mL Normal 0.465-4.68 0 [facility] Comment on above: Performed By: #### C MP3, HEMDF #### [address] [address] CTA CHEST W WO CONTRASTOrder ed By: Danny Sharma on 09-07-2020 [id number] Computed Tomography ACCESSION EXAM DATE/TIME PROCEDURE ORDERING PROVIDER [id number] 09/07/2020 16:20 EDT CTA Chest w/ + w/o MD EDITH, DANNY Contrast CPT code 63276 Q9967 Reason For Exam (CTA Chest w/ + w/o Contrast) Endometrial cancer, shortness of breath. Evaluate for PE. Report Reasons for examination: Chest pain/ shortness of breath. History of endometrial cancer with chemotherapy CT scan of the chest were performed with bolus contrast and high resolution scans for CT pulmonary angiographic study, with images post-processed by myself on [employer] workstation, with 3D - volume rendered CT and MPR angiographic images reconstructed. The heart size is normal, and there are no pericardial or pleural effusions. There are no congestive changes in the pulmonary vasculature. The thoracic aorta is unremarkable. Incidental two renal arteries bilaterally. CT pulmonary angiographic examination is a high quality study, which demonstrates no evidence of acute pulmonary embolism. The right side of the heart, pulmonary outflow tract, right and left main, lobar, and larger segmental pulmonary arteries all appear clear. Note that the technique is limited for detection of small, subsegmental, peripheral emboli, but none are seen. IMPRESSION: 1.Negative CT scan of the chest for evidence of acute pulmonary embolism. 2. Marked fatty infiltration liver, colonic diverticuli, cholelithiasis. Probable benign small area of sclerosis T6 with scattered degenerative changes thoracic spine with dorsal kyphosis Report Dictated on Workstation: [id number] --- Final --- Dictated: 09/07/2020 6:20 pm Dictating Physician: MD SCHERER WILLIAM Signed Date and Time: 09/07/2020 6:25 pm Signed by: MD SCHERER WILLIAM Transcribed Date and Time: 09/07/2020 6:20 [facility] Work Phone: Matt, [facility] Incoming Radiology Results From [facility] - 09/07/2020 6:26 PM EDT Patient Name: DANNY PINKN: [id number] [id number] Computed Tomography ACCESSION EXAM DATE/TIME PROCEDURE ORDERING PROVIDER [id number] 09/07/2020 16:20 EDT CTA Chest w/ + w/o MD EDITHDANNY CPT code 10204 Q9967 Reason For Exam (CTA Chest w/ + w/o Contrast) Endometrial cancer, shortness of breath. Evaluate for PE. Report Reasons for examination: Chest pain/ shortness of breath. History of endometrial cancer with chemotherapy CT scan of the chest were performed with bolus contrast and high resolution scans for CT pulmonary angiographic study, with images post-processed by myself on [employer] workstation, with 3D - volume rendered CT and MPR angiographic images reconstructed. The heart size is normal, and there are no pericardial or pleural effusions. There are no congestive changes in the pulmonary vasculature. The thoracic aorta is unremarkable. Incidental two renal arteries bilaterally. CT pulmonary angiographic examination is a high quality study, which demonstrates no evidence of acute pulmonary embolism. The right side of the heart, pulmonary outflow tract, right and left main, lobar, and larger segmental pulmonary arteries all appear clear. Note that the technique is limited for detection of small, subsegmental, peripheral emboli, but none are seen. IMPRESSION: 1.Negative CT scan of the chest for evidence of acute pulmonary embolism. 2. Marked fatty infiltration liver, colonic diverticuli, cholelithiasis. Probable benign small area of sclerosis T6 with scattered degenerative changes thoracic spine with dorsal kyphosis Report Dictated on Workstation: [id number] --- Final --- Dictated: 09/07/2020 6:20 pm Dictating Physician: MD SCHERER WILLIAM Signed Date and Time: 09/07/2020 6:25 pm Signed by: MD SCHERER WILLIAM Transcribed Date and Time: 09/07/2020 6:20 [facility] Work Phone: [facility] Work Phone: Comprehensive Metabolic Pane lOrdered By: Danny Sharma on 09-07-2020 Albumin [Mass/Vol] 4.1 g/dL 3.5 - 5.0 g/dL [facility] Work Phone: ALP (Bld) [Catalytic activity/Vol] 92 U/L 38 - 126 U/L [employer] Work Phone: [phone] ALT [Catalytic activity/Vol] 55 U/L High 0 - 34 U/L [employer] Work Phone: [phone] Comment on above: The ALT test is perf ormed by an updated assay method. Please note that the reference intervals have been changed and are now sex specific. Anion gap [Moles/Vol] 8 mmol/L 3 - 13 mmol/L [employer] Work Phone: [phone] AST [Catalytic activity/Vol] 41 U/L 15 - 46 U/L [employer] Work Phone: [phone] Bilirubin [Mass/Vol] 0.4 mg/dL 0.2 - 1 .3 mg/dL [employer] Work Phone: [phone] Calcium [Mass/Vol] 9.8 mg/dL 8.4 - 10. 4 mg/dL [employer] Work Phone: [phone] Chloride [Moles/Vol] 101 mmol/L 98 - 10 7 mmol/L [employer] Work Phone: [phone] CO2 [Moles/Vol] 27 mmol/L 22 - 30 mmol/L [employer] Work Phone: [phone] Creatinine [Mass/Vol] 0.7 mg/dL 0.52 - 1.25 mg/dL [employer] Work Phone: [phone] EGFR IF NonAfrican Cypriot >90.0 >60 mL/min [employer] Work Phone: Comment on above: KDIGO guidelines pro vide the following GFR categories: Stage GFR(ml/min/1.73 m2) Terms G1 >=90 Normal or high G2 60-89 Mildly decreased* G3a 45-59 Mildly to moderately decreased G3b 30-44 Moderately to severely decreased G4 15-29 Severely decreased G5 <15 Kidney failure *Relative to young adult level. In the absence of evidence of kidney damage, neither GFR category G1 nor G2 fulfill the criteria for CKD. The CKD-EPI equation is validated in individuals 18 years of age and older. Currently the best equation for estimating glomerular filtration rate (GFR) from serum creatinine in children is the Bedside Ash equation. It is less accurate in patients with extremes of muscle mass, restriction of dietary protein, ingestion of creatine, extra-renal metabolism of creatinine, or treatment with medications that affect renal tubular creatinine secretion. Free PSA/Total PSA [Mass fraction] 7.2 g/dL 6.3 - 8.2 g/dL [employer] Work Phone: GFR/1.73 sq M.predicted among blacks MDRD (S/P/Bld) [Vol rate/Area] mL/min/{1.73_m2} >60 mL/min [employer] Work Phone: Glucose [Mass/Vol] 132 mg/dL High 70 - 100 mg/dL [employer] Work Phone: Interpretation and review of laboratory results Abnormal [facility] Work Phone: Potassium [Moles/Vol] 4.4 mmol/L 3.5 - 5.1 mmol/L [facility] Work Phone: Sodium [Moles/Vol] 136 mmol/L 135 - 145 mmol/L [facility] Work Phone: Urea nitrogen (BldV) [Mass/Vol] 15 mg/dL 7 - 20 mg/dL [facility] Work Phone: Test Performed by [employer], [address] [place], [place] [address] Work Phone: [employer] Work Phone: Otheron 05-26-2020 [facility]: [id number] Comput[facility] ACCESSION EXAM DATE/TIME PROCEDURE ORDERING PROVIDER [id number] 05/26/2020 13:[address] Abdomen/Pelvis w/ IV MD SHARMA ROBIN Contrast (IV Onl CPT code 25652 Q9967 Reason For Exam (CT Abdomen/Pelvis w/ IV Contrast (IV Onl) recurrent endometrial ca, assess treatment Report EXAMINATION: CT of the Abdomen and Pelvis with Contrast. COMPARISON: 02/29/2020. REASON FOR STUDY: Recurrent endometrial carcinoma. TECHNIQUE: Contiguous multiplanar 3 mm images were extended from the lung bases through the pubic symphysis after intravenous infusion of 75 mL of Isovue-370. FINDINGS: Lung Bases: No abnormality noted. Hepatobiliary System: Liver is markedly hypoattenuating. Biliary tree is not appreciably dilated. Gallbladder appears normal. Solid Viscus: Spleen, pancreas and adrenal glands appear normal. System: Kidneys, ureters and bladder appear normal; a 1.4 cm cyst is redemonstrated at the inferior pole of the left kidney. Uterus is absent. No adnexal abnormality is observed at. GI System: Stomach appears normal. Small bowel caliber, chiu and mucosal pattern appear normal. Colonic caliber, chiu and haustral pattern appear normal. Appendix is not visualized. Peritoneum, Retroperitoneum And Mesentery: 13.3 mm hypoattenuating focus is redemonstrated in the left para-aortic space at the inferior extent of the left kidney. Computed Tomography Report Vasculature: No abnormality seen. Bones: Osseous structures appear intact. Soft Tissues: No significant findings. CONCLUSION(S): 1. Severe hepatic steatosis. 2. Solitary left para-aortic lymphadenopathy with no change. 3. Left renal cyst. Report Dictated on --- Final --- Dictated: 05/26/2020 4:27 pm Dictating Physician: MD CABRERA B NELSON Signed Date and Time: 05/26/2020 4:33 pm Signed by: MD CABRERA B NELSON Transcribed Date and Time: 05/26/2020 4:27 [facility] Incoming Radiology Results From [facility] - 05/26/2020 4:35 PM EST [id number] Computed Tomography ACCESSION EXAM DATE/TIME PROCEDURE ORDERING PROVIDER [id number] 05/26/2020 13:[address] Abdomen/Pelvis w/ IV MD SHARMA ROBIN Contrast (IV Onl CPT code 49825 Q9967 Reason For Exam (CT Abdomen/Pelvis w/ IV Contrast (IV Onl) recurrent endometrial ca, assess treatment Report EXAMINATION: CT of the Abdomen and Pelvis with Contrast. COMPARISON: 02/29/2020. REASON FOR STUDY: Recurrent endometrial carcinoma. TECHNIQUE: Contiguous multiplanar 3 mm images were extended from the lung bases through the pubic symphysis after intravenous infusion of 75 mL of Isovue-370. FINDINGS: Lung Bases: No abnormality noted. Hepatobiliary System: Liver is markedly hypoattenuating. Biliary tree is not appreciably dilated. Gallbladder appears normal. Solid Viscus: Spleen, pancreas and adrenal glands appear normal. System: Kidneys, ureters and bladder appear normal; a 1.4 cm cyst is redemonstrated at the inferior pole of the left kidney. Uterus is absent. No adnexal abnormality is observed at. GI System: Stomach appears normal. Small bowel caliber, chiu and mucosal pattern appear normal. Colonic caliber, chiu and haustral pattern appear normal. Appendix is not visualized. Peritoneum, Retroperitoneum And Mesentery: 13.3 mm hypoattenuating focus is redemonstrated in the left para-aortic space at the inferior extent of the left kidney. Computed Tomography Report Vasculature: No abnormality seen. Bones: Osseous structures appear intact. Soft Tissues: No significant findings. CONCLUSION(S): 1. Severe hepatic steatosis. 2. Solitary left para-aortic lymphadenopathy with no change. 3. Left renal cyst. Report Dictated on --- Final --- Dictated: 05/26/2020 4:27 pm Dictating Physician: MD CABRERA B NELSON Signed Date and Time: 05/26/2020 4:33 pm Signed by: MD CABRERA B NELSON Transcribed Date and Time: 05/26/2020 4:27 [place], [place] CBC WITH AUTO DIFFERENTIALon 04-19-2020 Absolute Baso # 0.0 10*3/uL 0 - 0.2 10*3/uL [place] Absolute Neut # 3.8 10*3/uL 1.8 - 7 10*3/uL [place] Basophils/100 WBC (Bld) 0.5 % 0 - 2 % [place] Eosinophils (Bld) [#/Vol] 0.0 10*3/uL 0 - 0.5 10*3/uL [place] Eosinophils/100 WBC (Bld) 0.5 % Low 1 - 6 % [place] Erythrocyte distribution width (RBC) [Ratio] 20.0 % High 11.5 - 14.5 % [place] Granulocytes/100 WBC (Bld) 71.6 % 40 - 80 % [place] Hematocrit (Bld) [Volume fraction] 35.4 % 35 - 47 % [place] Hemoglobin (Bld) [Mass/Vol] 12.0 g/dL 11.7 - 16 g/dL [place] Interpretation and review of laboratory results Abnormal [place] Lymphocytes (Bld) [#/Vol] 0.8 10*3/uL Low 1 - 4.3 10*3/uL [place] Lymphocytes/100 WBC (Bld) 14.2 % Low 20 - 40 % [place] MCH (RBC) [Entitic mass] 30.8 pg 26 - 34 pg [place] MCHC (RBC) [Mass/Vol] 33.8 % 32 - 36 % [place] MCV (RBC) [Entitic vol] 91.0 fL 79 - 98 fL [place], [place] Monocytes (Bld) [#/Vol] 0.7 10*3/uL 0 - 0.8 10*3/uL [place] Monocytes/100 WBC (Bld) 13.2 % High 2 - 10 % [place] Platelet mean volume (Bld) [Entitic vol] 7.0 fL Low 7.4 - 10.4 fL [place] Platelets (Bld) [#/Vol] 191 10*3/uL 140 - 440 10*3/uL [place] RBC (Bld) [#/Vol] 3.89 10*6/uL 3.8 - 5.2 10*6/uL [place] WBC (Bld) [#/Vol] 5.3 10*3/uL 3.6 - 10.7 10*3/uL [place] Test Performed by [facility], [address] [place] [address], [place] [address] [place], [place] Comprehensive Metabolic Pane eric 04-19-2020 Albumin [Mass/Vol] 4.1 g/dL 3.5 - 5 g/dL [place] ALP [Catalytic activity/Vol] 93 U/L 38 - 126 U/L [place] ALT [Catalytic activity/Vol] 55 U/L High 0 - 34 U/L [place] Comment on above: The ALT test is perf ormed by an updated assay method. Please note that the reference intervals have been changed and are now sex specific. Anion gap [Moles/Vol] 8 mmol/L [place] AST [Catalytic activity/Vol] 56 U/L High 15 - 46 U/L [place] Bilirubin Ql (U) 0.3 mg/dL 0.2 - 1.3 mg/dL [place] Calcium [Mass/Vol] 9.5 mg/dL 8.4 - 10. 4 mg/dL [place] Chloride [Moles/Vol] 105 mmol/L 98 - 10 7 mmol/L [place] CO2 [Moles/Vol] 23 mmol/L 22 - 30 mmol/L [place] Creatinine [Mass/Vol] 0.52 mg/dL 0.52 - 1.25 mg/dL [place] EGFR IF NonAfrican [place]riot >90.0 >60 mL/min [place] Comment on above: KDIGO guidelines pro vide the following GFR categories: Stage GFR(ml/min/1.73 m2) Terms G1 >=90 Normal or high G2 60-89 Mildly decreased* G3a 45-59 Mildly to moderately decreased G3b 30-44 Moderately to severely decreased G4 15-29 Severely decreased G5 <15 Kidney failure *Relative to young adult level. In the absence of evidence of kidney damage, neither GFR category G1 nor G2 fulfill the criteria for CKD. The CKD-EPI equation is validated in individuals 18 years of age and older. Currently the best equation for estimating glomerular filtration rate (GFR) from serum creatinine in children is the Bedside Ash equation. It is less accurate in patients with extremes of muscle mass, restriction of dietary protein, ingestion of creatine, extra-renal metabolism of creatinine, or treatment with medications that affect renal tubular creatinine secretion. GFR/1.73 sq M predicted among blacks MDRD (S/P/Bld) [Vol rate/Area] mL/min/{1.73_m2} >60 mL/min [place] Glucose [Mass/Vol] 107 mg/dL High 70 - 100 mg/dL [place] Interpretation and review of laboratory results Abnormal [place] Potassium [Moles/Vol] 4.2 mmol/L 3.5 - 5.1 mmol/L [place] Protein [Mass/Vol] 7.2 g/dL 6.3 - 8.2 g/dL [place] Sodium [Moles/Vol] 136 mmol/L 135 - 145 mmol/L [place] Urea nitrogen [Mass/Vol] 13 mg/dL 7 - 20 mg/dL [place] Test Performed by [facility], [address] [place] [id number] [place] BUNon 04-18-2020 Urea nitrogen [Mass/Vol] 19 mg/dL 7 - 20 mg/dL [place] Creatinine, Serumon 04-18-20 Creatinine [Mass/Vol] 0.75 mg/dL 0.52 - 1.25 mg/dL [place] EGFR IF NonAfrican [place]riot 83.9 mL/min >60 [place] Comment on above: KDIGO guidelines pro vide the following GFR categories: Stage GFR(ml/min/1.73 m2) Terms G1 >=90 Normal or high G2 60-89 Mildly decreased* G3a 45-59 Mildly to moderately decreased G3b 30-44 Moderately to severely decreased G4 15-29 Severely decreased G5 <15 Kidney failure *Relative to young adult level. In the absence of evidence of kidney damage, neither GFR category G1 nor G2 fulfill the criteria for CKD. The CKD-EPI equation is validated in individuals 18 years of age and older. Currently the best equation for estimating glomerular filtration rate (GFR) from serum creatinine in children is the Bedside Ash equation. It is less accurate in patients with extremes of muscle mass, restriction of dietary protein, ingestion of creatine, extra-renal metabolism of creatinine, or treatment with medications that affect renal tubular creatinine secretion. GFR/1.73 sq M predicted among blacks MDRD (S/P/Bld) [Vol rate/Area] mL/min/{1.73_m2} >60 mL/min [place] Otheron 04-18-2020 [facility], [address] [place] [id number] [place], [place] CT Abdomen Pelvis W Contrast on 02-29-2020 Patient Name: DANNY PINK ---CT--- Exam Date/Time 02/29/2020 12:16:[address] Abdomen/Pelvis w/ IV Contrast (IV Onl Ordering Physician BRITNEY NIXON COURTNEY Accession Number [id number] CPT4 Codes 38829 (CT Abdomen/Pelvis w/ IV Contrast (IV Onl), Q9967 (CT ISOVUE 370MG/ML&[id number]& ML&1) Reason For Exam endometrial ca Report Indication: Endometrial carcinoma. Status post chemotherapy. CT examination of the abdomen and pelvis with intravenous and oral contrast. Images through the lung bases show no infiltrates or pleural effusions. No pulmonary nodules. Decreased density of the liver parenchyma is compatible with fatty infiltration. No focal liver lesions. Cholelithiasis noted. No findings to indicate cholecystitis. The biliary tree is decompressed. The spleen, pancreas and adrenal glands are within normal limits. No hydronephrosis or ureteral dilatation. Hypodense lesions in both kidneys are too small to accurately characterize. These are not changed in size and most likely represent cortical cysts. Decreased size of the left periaortic lymph node. This lymph node now measures 1.8 x 1.4 cm in AP and transverse dimensions as compared to 2.1 cm in diameter. No other enlarged retroperitoneal lymph nodes. No mesenteric adenopathy. No large or small bowel dilatation. No bowel wall thickening. No free fluid. No mesenteric edema. Images of the pelvis show a partially distended urinary bladder. Uterus is absent. No adnexal masses. No pelvic adenopathy. Sagittal reconstructions show mild degenerative endplate and facet changes in the lower lumbar spine. IMPRESSION: Decreased size of the left periaortic lymph node. An enlarged lymph node remains at this site. No new enlarged lymph nodes. No pelvic adenopathy. Fatty infiltration of the liver parenchyma. Subcentimeter low-density renal lesions most likely represent cortical cysts. Report Dictated on --- Final --- Dictated: 02/29/2020 4:22 pm Dictating Physician: MD JOYCE LAURA Signed Date and Time: 02/29/2020 4:28 pm Signed by: MD JOYCE LAURA Transcribed Date and Time: 02/29/2020 4:22 [facility], [place] Matt, [facility] Incoming Radiology Results From [facility] - 02/29/2020 4:29 PM EST Patient Name: DANNY PINK ---CT--- Exam Date/Time 02/29/2020 12:16:[address] Abdomen/Pelvis w/ IV Contrast (IV Onl Ordering Physician BRITNEY NIXON COURTNEY Accession Number [id number] CPT4 Codes 32627 (CT Abdomen/Pelvis w/ IV Contrast (IV Onl), Q9967 (CT ISOVUE 370MG/ML&[id number]& ML&1) Reason For Exam endometrial ca Report Indication: Endometrial carcinoma. Status post chemotherapy. CT examination of the abdomen and pelvis with intravenous and oral contrast. Images through the lung bases show no infiltrates or pleural effusions. No pulmonary nodules. Decreased density of the liver parenchyma is compatible with fatty infiltration. No focal liver lesions. Cholelithiasis noted. No findings to indicate cholecystitis. The biliary tree is decompressed. The spleen, pancreas and adrenal glands are within normal limits. No hydronephrosis or ureteral dilatation. Hypodense lesions in both kidneys are too small to accurately characterize. These are not changed in size and most likely represent cortical cysts. Decreased size of the left periaortic lymph node. This lymph node now measures 1.8 x 1.4 cm in AP and transverse dimensions as compared to 2.1 cm in diameter. No other enlarged retroperitoneal lymph nodes. No mesenteric adenopathy. No large or small bowel dilatation. No bowel wall thickening. No free fluid. No mesenteric edema. Images of the pelvis show a partially distended urinary bladder. Uterus is absent. No adnexal masses. No pelvic adenopathy. Sagittal reconstructions show mild degenerative endplate and facet changes in the lower lumbar spine. IMPRESSION: Decreased size of the left periaortic lymph node. An enlarged lymph node remains at this site. No new enlarged lymph nodes. No pelvic adenopathy. Fatty infiltration of the liver parenchyma. Subcentimeter low-density renal lesions most likely represent cortical cysts. Report Dictated on --- Final --- Dictated: 02/29/2020 4:22 pm Dictating Physician: MD JOYCE LAURA Signed Date and Time: 02/29/2020 4:28 pm Signed by: MD JOYCE LAURA Transcribed Date and Time: 02/29/2020 4:22 [facility] [place] [facility] 02-08-2020 Albumin [Mass/Vol] 3.6 g/dL [place] ALP [Catalytic activity/Vol] 129 U/L [place] ALT [Catalytic activity/Vol] 35 U/L [place] Anion gap [Moles/Vol] [place], [place] AST [Catalytic activity/Vol] 17 U/L [place] Bilirubin Ql (U) 0.2 mg/dL 0.1 - 1.4 mg/dL [place] Calcium [Mass/Vol] 8.9 mg/dL [place] Chloride [Moles/Vol] 108 mmol/L [place] CO2 [Moles/Vol] 29 mmol/L [place] Creatinine [Mass/Vol] 0.72 mg/dL [place] GFR/1.73 sq M predicted among non-blacks MDRD (S/P/Bld) [Vol rate/Area] [place] Glucose [Mass/Vol] 117 mg/dL [place] Interpretation and review of laboratory results Abnormal [place] Potassium [Moles/Vol] 4.1 mmol/L [place] Protein [Mass/Vol] 7.2 g/dL [place] Sodium [Moles/Vol] 141 mmol/L [place] Urea nitrogen [Mass/Vol] 14 mg/dL [facility] [place] Eric 01-20-2020 Albumin [Mass/Vol] 4.0 g/dL 3.5 - 5 g/dL [place] ALP [Catalytic activity/Vol] 111 U/L 38 - 126 U/L [place] ALT [Catalytic activity/Vol] 28 U/L 0 - 34 U/L [place] Comment on above: The ALT test is perf ormed by an updated assay method. Please note that the reference intervals have been changed and are now sex specific. Anion gap [Moles/Vol] 6 mmol/L [place] AST [Catalytic activity/Vol] 31 U/L 15 - 46 U/L [place] Bilirubin Ql (U) 0.2 mg/dL 0.2 - 1.3 mg/dL [place] Calcium [Mass/Vol] 9.1 mg/dL 8.4 - 10. 4 mg/dL [place] Chloride [Moles/Vol] 106 mmol/L 98 - 10 7 mmol/L [place] CO2 [Moles/Vol] 25 mmol/L 22 - 30 mmol/L [place] Creatinine [Mass/Vol] 0.65 mg/dL 0.52 - 1.25 mg/dL [place] EGFR IF NonAfrican [place]riot >90.0 >60 mL/min [place] Comment on above: KDIGO guidelines pro vide the following GFR categories: Stage GFR(ml/min/1.73 m2) Terms G1 >=90 Normal or high G2 60-89 Mildly decreased* G3a 45-59 Mildly to moderately decreased G3b 30-44 Moderately to severely decreased G4 15-29 Severely decreased G5 <15 Kidney failure *Relative to young adult level. In the absence of evidence of kidney damage, neither GFR category G1 nor G2 fulfill the criteria for CKD. The CKD-EPI equation is validated in individuals 18 years of age and older. Currently the best equation for estimating glomerular filtration rate (GFR) from serum creatinine in children is the Bedside Ash equation. It is less accurate in patients with extremes of muscle mass, restriction of dietary protein, ingestion of creatine, extra-renal metabolism of creatinine, or treatment with medications that affect renal tubular creatinine secretion. GFR/1.73 sq M predicted among blacks MDRD (S/P/Bld) [Vol rate/Area] mL/min/{1.73_m2} >60 mL/min [place] Glucose [Mass/Vol] 124 mg/dL High 70 - 100 mg/dL [place] Interpretation and review of laboratory results Abnormal [place] Potassium [Moles/Vol] 4.3 mmol/L 3.5 - 5.1 mmol/L [place] Protein [Mass/Vol] 7.0 g/dL 6.3 - 8.2 g/dL [place] Sodium [Moles/Vol] 137 mmol/L 135 - 145 mmol/L [place] Urea nitrogen [Mass/Vol] 12 mg/dL 7 - 20 mg/dL [place] Test Performed by [facility], [address] [place] [id number] [place] CBC Auto Differentialon 12-21 Erythrocyte distribution width (RBC) [Ratio] 17.7 % High 11.5 - 14.5 % [place] Hematocrit (Bld) [Volume fraction] 33.7 % Low 35 - 47 % [place] Hemoglobin (Bld) [Mass/Vol] 11.1 g/dL Low 11.7 - 16 g/dL [place] Interpretation and review of laboratory results Abnormal [place] MCH (RBC) [Entitic mass] 26.1 pg 26 - 34 pg [place] MCHC (RBC) [Mass/Vol] 32.8 % 32 - 36 % [place] MCV (RBC) [Entitic vol] 79.4 fL 79 - 98 fL [place] Platelet mean volume (Bld) [Entitic vol] 6.9 fL Low 7.4 - 10.4 fL [place] Platelets (Bld) [#/Vol] 263 10*3/uL 140 - 440 10*3/uL [place] RBC (Bld) [#/Vol] 4.24 10*6/uL 3.8 - 5.2 10*6/uL [place] WBC (Bld) [#/Vol] 7.4 10*3/uL 3.6 - 10.7 10*3/uL [place] Test Performed by [facility], [address] [place] [id number] [place], [place] Manual Differentialon 2019 Absolute Baso # 0.0 10*3/uL 0 - 0.2 10*3/uL [place] Absolute Eos # 0.1 10*3/uL 0 - 0.5 10*3/uL [facility], [place] Absolute Lymph # 0.6 10*3/uL Low 1.1 - 4.5 10*3/uL [facility], [place] Absolute White # 0.3 10*3/uL 0.2 - 1.1 10*3/uL [facility], [place] Absolute Neut # 6.0 10*3/uL 2.2 - 8.2 10*3/uL [facility], [place] Bands 0 % 0 - 3 % [facility], [place] Basophils 0 % 0 - 2 % [facility], [place] Elliptocytes Slight [facility], [place] Eosinophils 1 % 1 - 6 % [facility], [place] Interpretation and review of laboratory results Abnormal [place] Lymphocytes 8 % Low 20 - 40 % [place] Metamyelocytes 1 % Abnormal <1 [facility], [place] Monocytes 4 % 2 - 10 % [facility], [place] Myelocytes 5 % Abnormal <1 [facility], [place] Polychromasia Slight [place] RBC morphology finding Nom (Bld) ABNORMAL [place] Seg Neutrophils 81 % High 40 - 80 % [place] TOTAL CELLS COUNTED 100 [place] Test [facility], [address] [place] [id number] [place] Comprehensive Metabolic Pane eric 12-30-2019 Albumin [Mass/Vol] 4.0 g/dL 3.5 - 5 g/dL [place] ALP [Catalytic activity/Vol] 87 U/L 38 - 126 U/L [place] ALT [Catalytic activity/Vol] 28 U/L 0 - 34 U/L [place] Comment on above: The ALT test is perf ormed by an updated assay method. Please note that the reference intervals have been changed and are now sex specific. Anion gap [Moles/Vol] 7 mmol/L [place], [place] AST [Catalytic activity/Vol] 29 U/L 15 - 46 U/L [place] Bilirubin Ql (U) 0.3 mg/dL 0.2 - 1.3 mg/dL [place] Calcium [Mass/Vol] 9.2 mg/dL 8.4 - 10. 4 mg/dL [place] Chloride [Moles/Vol] 106 mmol/L 98 - 10 7 mmol/L [place] CO2 [Moles/Vol] 25 mmol/L 22 - 30 mmol/L [place] Creatinine [Mass/Vol] 0.81 mg/dL 0.52 - 1.25 mg/dL [place] EGFR IF NonAfrican [place] 76.6 mL/min >60 [place] Comment on above: KDIGO guidelines pro vide the following GFR categories: Stage GFR(ml/min/1.73 m2) Terms G1 >=90 Normal or high G2 60-89 Mildly decreased* G3a 45-59 Mildly to moderately decreased G3b 30-44 Moderately to severely decreased G4 15-29 Severely decreased G5 <15 Kidney failure *Relative to young adult level. In the absence of evidence of kidney damage, neither GFR category G1 nor G2 fulfill the criteria for CKD. The CKD-EPI equation is validated in individuals 18 years of age and older. Currently the best equation for estimating glomerular filtration rate (GFR) from serum creatinine in children is the Bedside Ash equation. It is less accurate in patients with extremes of muscle mass, restriction of dietary protein, ingestion of creatine, extra-renal metabolism of creatinine, or treatment with medications that affect renal tubular creatinine secretion. GFR/1.73 sq M predicted among blacks MDRD (S/P/Bld) [Vol rate/Area] 88.8 mL/min/{1.73_m2} >60 [place] Glucose [Mass/Vol] 176 mg/dL High 70 - 100 mg/dL [place] Interpretation and review of laboratory results Abnormal [place] Potassium [Moles/Vol] 3.7 mmol/L 3.5 - 5.1 mmol/L [place], [place] Protein [Mass/Vol] 6.7 g/dL 6.3 - 8.2 g/dL [place] Sodium [Moles/Vol] 138 mmol/L 135 - 145 mmol/L [place] Urea nitrogen [Mass/Vol] 19 mg/dL 7 - 20 mg/dL [place] Test Performed by [facility], [address] [place] [id number] [place], [place] CBCon 12-03-2019 Erythrocyte distribution width (RBC) [Ratio] 16.4 % High 11.5 - 14.5 % [place] Hematocrit (Bld) [Volume fraction] 36.6 % 35 - 47 % [place] Hemoglobin (Bld) [Mass/Vol] 11.8 g/dL 11.7 - 16 g/dL [place] Interpretation and review of laboratory results Abnormal [place] MCH (RBC) [Entitic mass] 25.2 pg Low 26 - 34 pg [place] MCHC (RBC) [Mass/Vol] 32.2 % 32 - 36 % [place], [place] MCV (RBC) [Entitic vol] 78.2 fL Low 79 - 98 fL [place], [place] Platelet mean volume (Bld) [Entitic vol] 7.4 fL 7.4 - 10.4 fL [place] Platelets (Bld) [#/Vol] 376 10*3/uL 140 - 440 10*3/uL [place] RBC (Bld) [#/Vol] 4.69 10*6/uL 3.8 - 5.2 10*6/uL [place] WBC (Bld) [#/Vol] 6.1 10*3/uL 3.6 - 10.7 10*3/uL [place] Test Performed by [facility], [address] [place] [id number] [place], [place] TYPE AND SCREENon 12-03-2019 Sodium [Moles/Vol] Negative [place] Sodium [Moles/Vol] Positive [place] Sodium [Moles/Vol] B [place] Test Performed by [facility], [address] [place] [id number] [place] CT Abdomen Pelvis W Contrast on 10-26-2019 Patient Name: DANNY PINK ---CT--- Exam Date/Time 10/26/2019 11:00:[address] Abdomen/Pelvis w/ IV Contrast (IV Onl Ordering Physician MD SHARMA ROBIN Accession Number [id number] CPT4 Codes 77818 (CT Abdomen/Pelvis w/ IV Contrast (IV Onl) Reason For Exam h/o endometrial ca, s/p radiation now with pelvic pain, assess for recurrent disease Report ABDOMINAL AND PELVIC CT WITH CONTRAST ENHANCEMENT History: Endometrial cancer with prior radiation, pelvic pain and spotting Comparison CT: None available at this time Technique: Multislice volume acquisition abdominal and pelvic axial CT sections from the diaphragm through the symphysis pubis following oral contrast and IV injection of 75 mL of Isovue. Multiplanar sagittal and coronal reconstructed images also obtained. Findings: Partially visualized lung bases show no acute infiltrate. Abdominal CT shows generalized fatty liver with areas of fat sparing. There is mildly distended gallbladder with gallstones. The spleen, pancreas, and both adrenals are unremarkable. There is up to 1.1 cm left renal and smaller right renal hypodensity suggesting cysts without hydronephrosis. There is approximately 2.1 x 2.1 x 3.5 cm heterogeneous left lower para-aortic mass suggesting lymphadenopathy. Pelvic CT shows unenhanced moderately distended urinary bladder without calculus. The uterus is absent with surgical clips noted. There is probably small left inguinal hernia containing fat. There is no sizable pelvic lymphadenopathy. There is no abdominal or pelvic fluid collection, soft tissue inflammation, or significant bowel distention. There are small colon diverticula without diverticulitis. There is mild spondylosis and atherosclerotic calcifications. IMPRESSION: Fatty liver with focal fat sparing. Gallstones. Left para-aortic lymphadenopathy suggesting metastatic malignancy require continued evaluation. Small renal cysts. Mild colon diverticulosis. Probable small left inguinal hernia containing fat. Report Dictated on --- Final --- Dictated: 10/26/2019 1:17 pm Dictating Physician: MD AYALA AHMAD Signed Date and Time: 10/26/2019 1:33 pm Signed by: MD AYALA AHMAD Transcribed Date and Time: 10/26/2019 1:17 [facility], CT [facility] 10/26/2019 1:35 PM EDT Patient Name: DANNY PINK ---CT--- Exam Date/Time 10/26/2019 11:00:[address] Abdomen/Pelvis w/ IV Contrast (IV Onl Ordering Physician MD EDITH DANNY Accession Number [id number] CPT4 Codes 05764 (CT Abdomen/Pelvis w/ IV Contrast (IV Onl) Reason For Exam h/o endometrial ca, s/p radiation now with pelvic pain, assess for recurrent disease Report ABDOMINAL AND PELVIC CT WITH CONTRAST ENHANCEMENT History: Endometrial cancer with prior radiation, pelvic pain and spotting Comparison CT: None available at this time Technique: Multislice volume acquisition abdominal and pelvic axial CT sections from the diaphragm through the symphysis pubis following oral contrast and IV injection of 75 mL of Isovue. Multiplanar sagittal and coronal reconstructed images also obtained. Findings: Partially visualized lung bases show no acute infiltrate. Abdominal CT shows generalized fatty liver with areas of fat sparing. There is mildly distended gallbladder with gallstones. The spleen, pancreas, and both adrenals are unremarkable. There is up to 1.1 cm left renal and smaller right renal hypodensity suggesting cysts without hydronephrosis. There is approximately 2.1 x 2.1 x 3.5 cm heterogeneous left lower para-aortic mass suggesting lymphadenopathy. Pelvic CT shows unenhanced moderately distended urinary bladder without calculus. The uterus is absent with surgical clips noted. There is probably small left inguinal hernia containing fat. There is no sizable pelvic lymphadenopathy. There is no abdominal or pelvic fluid collection, soft tissue inflammation, or significant bowel distention. There are small colon diverticula without diverticulitis. There is mild spondylosis and atherosclerotic calcifications. IMPRESSION: Fatty liver with focal fat sparing. Gallstones. Left para-aortic lymphadenopathy suggesting metastatic malignancy require continued evaluation. Small renal cysts. Mild colon diverticulosis. Probable small left inguinal hernia containing fat. Report Dictated on --- Final --- Dictated: 10/26/2019 1:17 pm Dictating Physician: MD AYALA AHMAD Signed Date and Time: 10/26/2019 1:33 pm Signed by: MD AYALA AHMAD Transcribed Date and Time: 10/26/2019 1:17 [facility], CT Vital Signs Date Time Vital Sign Value Performing Clinician Eulogio morales 07-18-2024 18:00-0400 Body temperature 98.2 [degF] Dr. Donovan Hernandez MD Work Phone: [facility] 07-18-2024 18:00-0400 Diastolic blood pressure 93 mm[Hg] Dr. Donovan Hernandez MD Work Phone: [facility] 07-18-2024 18:00-0400 Heart rate 82 /min Dr. Donovan Hernandez MD Work Phone: [phone] [place] [address] 07-18-2024 18:00-0400 Respiratory rate 16 /min Dr. Donovan Hernandez MD Work Phone: [facility] 07-18-2024 18:00-0400 SaO2% (BldA) [Mass fraction] 96 % Dr. Donovan Hernandez MD Work Phone: [facility] 07-18-2024 18:00-0400 Systolic blood pressure 169 mm[Hg] Dr. Donovan Hernandez MD Work Phone: [facility] 07-18-2024 16:12-0400 Body height 167.[address] Donovan Hernandez MD Work Phone: [facility] 07-18-2024 16:12-0400 Body mass index (BMI) [Ratio] 34.2 kg/m2 Dr. Donovan Hernandez MD Work Phone: [facility] 07-18-2024 16:12-0400 Body weight 96.[address] Donovan Hernandez MD Work Phone: [facility] 07-15-2024 13:12-0400 Body mass index (BMI) [Ratio] 34.51 kg/m2 Alka Cason APRN - MEDICAL ASSISTANT SUPERVISOR Work Phone: [facility] 07-15-2024 13:12-0400 Body temperature 97.5 [degF] Alka Regulo THERMAL INTELLIGENCE ANALYST - MEDICAL ASSISTANT SUPERVISOR Work Phone: [facility] 07-15-2024 13:12-0400 Body weight 96.98 kg Alka Cason THERMAL INTELLIGENCE ANALYST - MEDICAL ASSISTANT SUPERVISOR Work Phone: [facility] 07-15-2024 13:12-0400 Diastolic blood pressure 98 mm[Hg] Alka Cason THERMAL INTELLIGENCE ANALYST - MEDICAL ASSISTANT SUPERVISOR Work Phone: [facility] 07-15-2024 13:12-0400 Heart rate 110 /min Alka Cason THERMAL INTELLIGENCE ANALYST - MEDICAL ASSISTANT SUPERVISOR Work Phone: [facility] 07-15-2024 13:12-0400 Respiratory rate 18 /min Alka Arnoldatt THERMAL INTELLIGENCE ANALYST - MEDICAL ASSISTANT SUPERVISOR Work Phone: [facility] 07-15-2024 13:12-0400 SaO2% (BldA) [Mass fraction] 98 % Alka Arnoldatt THERMAL INTELLIGENCE ANALYST - MEDICAL ASSISTANT SUPERVISOR Work Phone: [facility] 07-15-2024 13:12-0400 Systolic blood pressure 154 mm[Hg] Alka Cason THERMAL INTELLIGENCE ANALYST - MEDICAL ASSISTANT SUPERVISOR Work Phone: [facility] 05-20-2024 13:59-0500 Body mass index (BMI) [Ratio] 37.54 kg/m2 Alka Cason THERMAL INTELLIGENCE ANALYST - MEDICAL ASSISTANT SUPERVISOR Work Phone: [facility] 05-20-2024 13:59-0500 Body temperature 98.2 [degF] Alka Arnoldatt THERMAL INTELLIGENCE ANALYST - MEDICAL ASSISTANT SUPERVISOR Work Phone: [facility] 05-20-2024 13:59-0500 Body weight 105.51 kg Alka Cason THERMAL INTELLIGENCE ANALYST - MEDICAL ASSISTANT SUPERVISOR Work Phone: [facility] 05-20-2024 13:59-0500 Diastolic blood pressure 84 mm[Hg] Alka Arnoldatt THERMAL INTELLIGENCE ANALYST - MEDICAL ASSISTANT SUPERVISOR Work Phone: [facility] 05-20-2024 13:59-0500 Heart rate 89 /min Alka Arnoldatt THERMAL INTELLIGENCE ANALYST - MEDICAL ASSISTANT SUPERVISOR Work Phone: [facility] 05-20-2024 13:59-0500 Respiratory rate 14 /min Alka Regulo THERMAL INTELLIGENCE ANALYST - MEDICAL ASSISTANT SUPERVISOR Work Phone: [facility] 05-20-2024 13:59-0500 SaO2% (BldA) [Mass fraction] 98 % Alka Cason THERMAL INTELLIGENCE ANALYST - MEDICAL ASSISTANT SUPERVISOR Work Phone: [facility] 05-20-2024 13:59-0500 Systolic blood pressure 132 mm[Hg] Alka Regulo THERMAL INTELLIGENCE ANALYST - MEDICAL ASSISTANT SUPERVISOR Work Phone: [facility] 05-04-2024 08:45-0500 Body temperature 98.7 [degF] Dr. Donovan Hernandez MD Work Phone: [facility] 05-04-2024 08:45-0500 Diastolic blood pressure 78 mm[Hg] Dr. Donovan Hernandez MD Work Phone: [facility] 05-04-2024 08:45-0500 Heart rate 64 /min Dr. Donovan Hernandez MD Work Phone: [facility] 05-04-2024 08:45-0500 Respiratory rate 18 /min Dr. Donovan Hernandez MD Work Phone: [facility] 05-04-2024 08:45-0500 SaO2% (BldA) [Mass fraction] 99 % Dr. Donovan Hernandez MD Work Phone: [facility] 05-04-2024 08:45-0500 Systolic blood pressure 134 mm[Hg] Dr. Donovan Hernandez MD Work Phone: [facility] 05-04-2024 06:45-0500 Body mass index (BMI) [Ratio] 37.5 kg/m2 Dr. Donovan Hernandez MD Work Phone: [facility] 05-04-2024 06:45-0500 Body weight 105.[address] Donovan Hernandez MD Work Phone: [facility] 04-08-2024 12:49-0500 Body mass index (BMI) [Ratio] 38.61 kg/m2 Alka Regulo THERMAL INTELLIGENCE ANALYST - MEDICAL ASSISTANT SUPERVISOR Work Phone: [facility] 04-08-2024 12:49-0500 Body weight 108.5 kg Alka Cason THERMAL INTELLIGENCE ANALYST - MEDICAL ASSISTANT SUPERVISOR Work Phone: [facility] 04-08-2024 12:49-0500 Diastolic blood pressure 86 mm[Hg] Alka Cason THERMAL INTELLIGENCE ANALYST - MEDICAL ASSISTANT SUPERVISOR Work Phone: [facility] 04-08-2024 12:49-0500 Heart rate 92 /min Alka Cason THERMAL INTELLIGENCE ANALYST - MEDICAL ASSISTANT SUPERVISOR Work Phone: [facility] 04-08-2024 12:49-0500 Respiratory rate 14 /min Alka Caosn THERMAL INTELLIGENCE ANALYST - MEDICAL ASSISTANT SUPERVISOR Work Phone: [facility] 04-08-2024 12:49-0500 SaO2% (BldA) [Mass fraction] 97 % Alka Cason THERMAL INTELLIGENCE ANALYST - MEDICAL ASSISTANT SUPERVISOR Work Phone: [facility] 04-08-2024 12:49-0500 Systolic blood pressure 132 mm[Hg] Alka Cason THERMAL INTELLIGENCE ANALYST - MEDICAL ASSISTANT SUPERVISOR Work Phone: [facility] 03-22-2024 18:00-0500 Diastolic blood pressure 77 mm[Hg] Dr. Donovan Hernandez MD Work Phone: [facility] 03-22-2024 18:00-0500 Heart rate 78 /min Dr. Donovan Hernandez MD Work Phone: [facility] 03-22-2024 18:00-0500 Respiratory rate 19 /min Dr. Donovan Hernandez MD Work Phone: [facility] 03-22-2024 18:00-0500 Systolic blood pressure 163 mm[Hg] Dr. Donovan Hernandez MD Work Phone: [facility] 03-22-2024 14:45-0500 SaO2% (BldA) [Mass fraction] 98 % Dr. Donovan Hernandez MD Work Phone: [facility] 03-22-2024 12:46-0500 Body mass index (BMI) [Ratio] 38.6 kg/m2 Dr. Donovan Hernandez MD Work Phone: [facility] 03-22-2024 12:46-0500 Body temperature 98.2 [degF] Dr. Donovan Hernandez MD Work Phone: [facility] 03-22-2024 12:46-0500 Body weight 108.[address] Donovan Hernandez MD Work Phone: [facility] 03-11-2024 11:05-0500 Body height 167.6 cm Alka Arnoldatt THERMAL INTELLIGENCE ANALYST - MEDICAL ASSISTANT SUPERVISOR Work Phone: [facility] 03-11-2024 11:05-0500 Body mass index (BMI) [Ratio] 38.7 kg/m2 Alka Regulo THERMAL INTELLIGENCE ANALYST - MEDICAL ASSISTANT SUPERVISOR Work Phone: [facility] 03-11-2024 11:05-0500 Body temperature 98.2 [degF] Alka Regulo THERMAL INTELLIGENCE ANALYST - MEDICAL ASSISTANT SUPERVISOR Work Phone: [facility] 03-11-2024 11:05-0500 Body weight 108.77 kg Alka Regulo THERMAL INTELLIGENCE ANALYST - MEDICAL ASSISTANT SUPERVISOR Work Phone: [facility] 03-11-2024 11:05-0500 Diastolic blood pressure 96 mm[Hg] Alka Regulo THERMAL INTELLIGENCE ANALYST - MEDICAL ASSISTANT SUPERVISOR Work Phone: [facility] 03-11-2024 11:05-0500 Heart rate 97 /min Alka Regulo THERMAL INTELLIGENCE ANALYST - MEDICAL ASSISTANT SUPERVISOR Work Phone: [facility] 03-11-2024 11:05-0500 Respiratory rate 14 /min Alka Regulo THERMAL INTELLIGENCE ANALYST - MEDICAL ASSISTANT SUPERVISOR Work Phone: [facility] 03-11-2024 11:05-0500 SaO2% (BldA) [Mass fraction] 96 % Alka Regulo THERMAL INTELLIGENCE ANALYST - MEDICAL ASSISTANT SUPERVISOR Work Phone: [facility] 03-11-2024 11:05-0500 Systolic blood pressure 144 mm[Hg] Alka Arnoldatt THERMAL INTELLIGENCE ANALYST - MEDICAL ASSISTANT SUPERVISOR Work Phone: [facility] 01-29-2024 11:01-0400 Diastolic blood pressure 80 mm[Hg] Danny Sharma MD Work Phone: [facility] 01-29-2024 11:01-0400 Systolic blood pressure 130 mm[Hg] Danny Sharma MD Work Phone: [facility] 01-29-2024 10:51-0400 Body height 167.6 cm Danny Sharma MD Work Phone: [facility] 01-29-2024 10:51-0400 Body mass index (BMI) [Ratio] 38.8 kg/m2 Danny Sharma MD Work Phone: [facility] 01-29-2024 10:51-0400 Body weight 109.05 kg Danny Sharma MD Work Phone: [facility] 01-29-2024 10:51-0400 Heart rate 109 /min Danny Sharma MD Work Phone: [facility] 10-30-2023 13:50-0400 Body height 167.6 cm Alkarupert Cason THERMAL INTELLIGENCE ANALYST - MEDICAL ASSISTANT SUPERVISOR Work Phone: [facility] 10-30-2023 13:50-0400 Body mass index (BMI) [Ratio] 38.96 kg/m2 Alka Rgeulo THERMAL INTELLIGENCE ANALYST - MEDICAL ASSISTANT SUPERVISOR Work Phone: [facility] 10-30-2023 13:50-0400 Body weight 109.5 kg Alka Cason THERMAL INTELLIGENCE ANALYST - MEDICAL ASSISTANT SUPERVISOR Work Phone: [facility] 10-30-2023 13:50-0400 Heart rate 115 /min Alkarupert Cason THERMAL INTELLIGENCE ANALYST - MEDICAL ASSISTANT SUPERVISOR Work Phone: [facility] 10-30-2023 13:50-0400 SaO2% (BldA) [Mass fraction] 96 % Alkarupert Cason THERMAL INTELLIGENCE ANALYST - MEDICAL ASSISTANT SUPERVISOR Work Phone: [facility] 10-30-2023 11:38-0400 Body height 170.2 cm Malinda Boone THERMAL INTELLIGENCE ANALYST - MEDICAL ASSISTANT SUPERVISOR Work Phone: [facility] 10-30-2023 11:38-0400 Body mass index (BMI) [Ratio] 37.59 kg/m2 Malinda Boone THERMAL INTELLIGENCE ANALYST - MEDICAL ASSISTANT SUPERVISOR Work Phone: [facility] 10-30-2023 11:38-0400 Body weight 108.86 kg Malinda Boone THERMAL INTELLIGENCE ANALYST - MEDICAL ASSISTANT SUPERVISOR Work Phone: [facility] 10-30-2023 11:38-0400 Diastolic blood pressure 86 mm[Hg] Malinda Boone THERMAL INTELLIGENCE ANALYST - MEDICAL ASSISTANT SUPERVISOR Work Phone: [facility] 10-30-2023 11:38-0400 Systolic blood pressure 122 mm[Hg] Malinda Boone THERMAL INTELLIGENCE ANALYST - MEDICAL ASSISTANT SUPERVISOR Work Phone: [facility] 10-06-2023 15:00-0400 Diastolic blood pressure 91 mm[Hg] Danny Sharma MD Work Phone: [facility] 10-06-2023 15:00-0400 Heart rate 69 /min Danny Sharma MD Work Phone: [facility] 10-06-2023 15:00-0400 Respiratory rate 17 /min Danny Sharma MD Work Phone: [facility] 10-06-2023 15:00-0400 SaO2% (BldA) [Mass fraction] 94 % Danny Sharma MD Work Phone: [facility] 10-06-2023 15:00-0400 Systolic blood pressure 165 mm[Hg] Danny Sharma MD Work Phone: [facility] 10-06-2023 13:01-0400 Body temperature 97 [degF] Danny Sharma MD Work Phone: [facility] 10-06-2023 09:40-0400 Body height 170.2 cm Danny Sharma MD Work Phone: [facility] 10-06-2023 09:40-0400 Body mass index (BMI) [Ratio] 36.65 kg/m2 Danny Sharma MD Work Phone: [facility] 10-06-2023 09:40-0400 Body weight 106.14 kg Danny Sharma MD Work Phone: [facility] 05-01-2023 15:09-0500 Body height 167.6 cm Malinda Paolo THERMAL INTELLIGENCE ANALYST - MEDICAL ASSISTANT SUPERVISOR Work Phone: [id number] 05-01-2023 15:09-0500 Body mass index (BMI) [Ratio] 38.58 kg/m2 Malinda Paolo THERMAL INTELLIGENCE ANALYST - MEDICAL ASSISTANT SUPERVISOR Work Phone: [id number] 05-01-2023 15:09-0500 Body weight 108.41 kg Malinda Paolo THERMAL INTELLIGENCE ANALYST - MEDICAL ASSISTANT SUPERVISOR Work Phone: [facility] 05-01-2023 15:09-0500 Diastolic blood pressure 72 mm[Hg] Malinda Paolo THERMAL INTELLIGENCE ANALYST - MEDICAL ASSISTANT SUPERVISOR Work Phone: [facility] 05-01-2023 15:09-0500 Systolic blood pressure 140 mm[Hg] Malinda Paolo THERMAL INTELLIGENCE ANALYST - MEDICAL ASSISTANT SUPERVISOR Work Phone: [facility] 02-26-2023 13:13-0500 Body temperature 97.81 [degF] Godfreymarlon Paynee DO Work Phone: [facility] 02-26-2023 13:13-0500 Diastolic blood pressure 83 mm[Hg] Godfrey Mohan DO Work Phone: [facility] 02-26-2023 13:13-0500 Heart rate 88 /min Godfrey Mohan DO Work Phone: [facility] 02-26-2023 13:13-0500 Respiratory rate 18 /min Godfrey Mohan DO Work Phone: [facility] 02-26-2023 13:13-0500 Systolic blood pressure 140 mm[Hg] Godfrey Mohan DO Work Phone: [facility] 02-13-2023 11:30-0400 Body height 167.6 cm Danny Sharma MD Work Phone: [facility] 02-13-2023 11:30-0400 Body mass index (BMI) [Ratio] 39.93 kg/m2 Danny Sharma MD Work Phone: [facility] 02-13-2023 11:30-0400 Body weight 112.22 kg Danny Sharma MD Work Phone: [facility] 02-13-2023 11:30-0400 Diastolic blood pressure 88 mm[Hg] Danny Sharma MD Work Phone: [facility] 02-13-2023 11:30-0400 Systolic blood pressure 155 mm[Hg] Danny Sharma MD Work Phone: [facility] 02-12-2023 11:18-0400 Body temperature 97.81 [degF] Godfrey Mohan DO Work Phone: [facility] 02-12-2023 11:18-0400 Diastolic blood pressure 94 mm[Hg] Godfrey Mohan DO Work Phone: [facility] 02-12-2023 11:18-0400 Heart rate 92 /min Godfrey Mohan DO Work Phone: [facility] 02-12-2023 11:18-0400 Respiratory rate 18 /min Godfrey Mohan DO Work Phone: [facility] 02-12-2023 11:18-0400 Systolic blood pressure 166 mm[Hg] Godfrey Mohan DO Work Phone: [facility] 02-05-2023 10:50-0400 Body temperature 98.01 [degF] Godfrey Mohan DO Work Phone: [facility] 02-05-2023 10:50-0400 Diastolic blood pressure 84 mm[Hg] Godfrey Mohan DO Work Phone: [facility] 02-05-2023 10:50-0400 Heart rate 102 /min Godfrey Mohan DO Work Phone: [facility] 02-05-2023 10:50-0400 Respiratory rate 18 /min Godfrey Mohan DO Work Phone: [email or web address] 02-05-2023 10:50-0400 Systolic blood pressure 140 mm[Hg] Godfrey Preston DO Work Phone: [facility] 01-29-2023 10:18-0400 Body temperature 98.8 [degF] Godfrey Preston DO Work Phone: [facility] 01-29-2023 10:18-0400 Diastolic blood pressure 82 mm[Hg] Godfrey Preston DO Work Phone: [facility] 01-29-2023 10:18-0400 Heart rate 87 /min Godfrey Preston DO Work Phone: [facility] 01-29-2023 10:18-0400 Respiratory rate 20 /min Godfrey Preston DO Work Phone: [facility] 01-29-2023 10:18-0400 Systolic blood pressure 137 mm[Hg] Godfrey Preston DO Work Phone: [facility] 01-16-2023 11:31-0400 Body height 167.6 cm Danny Sharma MD Work Phone: [facility] 01-16-2023 11:31-0400 Body mass index (BMI) [Ratio] 39.9 kg/m2 Danny Sharma MD Work Phone: [facility] 01-16-2023 11:31-0400 Body weight 112.13 kg Danny Sharma MD Work Phone: [facility] 01-16-2023 11:31-0400 Diastolic blood pressure 88 mm[Hg] Danny Sharma MD Work Phone: [id number] 01-16-2023 11:31-0400 Systolic blood pressure 142 mm[Hg] Danny Sharma MD Work Phone: [facility] 12-12-2022 14:26-0400 Body height 167.6 cm Danny Sharma MD Work Phone: [facility] 08-24-2023 14:26-0400 Body mass index (BMI) [Ratio] 38.9 kg/m2 Danny Sharma MD Work Phone: [facility] 12-12-2022 14:26-0400 Body weight 109.32 kg Danny Sharma MD Work Phone: [facility] 12-12-2022 14:26-0400 Diastolic blood pressure 87 mm[Hg] Danny Sharma MD Work Phone: [facility] 12-12-2022 14:26-0400 Heart rate 101 /min Danny Sharma MD Work Phone: [facility] 12-12-2022 14:26-0400 Systolic blood pressure 145 mm[Hg] Danny Sharma MD Work Phone: [facility] 11-14-2022 10:05-0400 Body height 167.6 cm Danny Sharma MD Work Phone: [facility] 11-14-2022 10:05-0400 Body mass index (BMI) [Ratio] 38.9 kg/m2 Danny Sharma MD Work Phone: [facility] 11-14-2022 10:05-0400 Body weight 109.32 kg Danny Sharma MD Work Phone: [facility] 11-14-2022 10:05-0400 Diastolic blood pressure 84 mm[Hg] Danny Sharma MD Work Phone: [facility] 11-14-2022 10:05-0400 Systolic blood pressure 140 mm[Hg] Danny Sharma MD Work Phone: [facility] 08-19-2022 10:15-0400 Diastolic blood pressure 66 mm[Hg] Danny Sharma MD Work Phone: [facility] 08-19-2022 10:15-0400 Heart rate 76 /min Danny Sharma MD Work Phone: [facility] 08-19-2022 10:15-0400 SaO2% (BldA) [Mass fraction] 91 % Danny Sharma MD Work Phone: [facility] 08-19-2022 10:15-0400 Systolic blood pressure 119 mm[Hg] Danny Sharma MD Work Phone: [facility] 08-19-2022 09:20-0400 Body temperature 97 [degF] Danny Sharma MD Work Phone: [facility] 08-19-2022 09:20-0400 Respiratory rate 9 /min Danny Sharma MD Work Phone: [facility] 08-15-2022 10:53-0400 Body height 167.6 cm Danny Sharma MD Work Phone: [facility] 08-15-2022 10:53-0400 Body mass index (BMI) [Ratio] 37.7 kg/m2 Danny Sharma MD Work Phone: [facility] 08-15-2022 10:53-0400 Body temperature 96.91 [degF] Danny Sharma MD Work Phone: [facility] 08-15-2022 10:53-0400 Body weight 105.96 kg Danny Sharma MD Work Phone: [facility] 08-15-2022 10:53-0400 Diastolic blood pressure 85 mm[Hg] Danny Sharma MD Work Phone: [facility] 08-15-2022 10:53-0400 Systolic blood pressure 160 mm[Hg] Danny Sharma MD Work Phone: [facility] 06-13-2022 10:39-0500 Body mass index (BMI) [Ratio] 36.81 kg/m2 Danny Sharma MD Work Phone: [facility] 06-13-2022 10:39-0500 Body temperature 97.5 [degF] Danny Sharma MD Work Phone: [facility] 06-13-2022 10:39-0500 Body weight 100.34 kg Danny Sharma MD Work Phone: [facility] 06-13-2022 10:39-0500 Diastolic blood pressure 88 mm[Hg] Danny Sharma MD Work Phone: [facility] 06-13-2022 10:39-0500 Systolic blood pressure 132 mm[Hg] Danny Sharma MD Work Phone: [facility] 05-30-2022 15:04-0500 Diastolic blood pressure 82 mm[Hg] Danny Sharma MD Work Phone: [facility] 05-30-2022 15:04-0500 Respiratory rate 20 /min Danny Sharma MD Work Phone: [facility] 05-30-2022 15:04-0500 Systolic blood pressure 150 mm[Hg] Danny Sharma MD Work Phone: [facility] 05-30-2022 14:55-0500 Heart rate 70 /min Danny Sharma MD Work Phone: [facility] 05-30-2022 14:31-0500 SaO2% (BldA) [Mass fraction] 96 % Danny Sharma MD Work Phone: [facility] 05-30-2022 14:02-0500 Body temperature 97.3 [degF] Danny Sharma MD Work Phone: [facility] 05-16-2022 10:48-0500 Body mass index (BMI) [Ratio] 35.94 kg/m2 Danny Sharma MD Work Phone: [facility] 05-16-2022 10:48-0500 Body temperature 97.11 [degF] Danny Sharma MD Work Phone: [facility] 05-16-2022 10:48-0500 Body weight 97.98 kg Danny Sharma MD Work Phone: [facility] 05-16-2022 10:48-0500 Diastolic blood pressure 78 mm[Hg] Danny Sharma MD Work Phone: [facility] 05-16-2022 10:48-0500 Systolic blood pressure 110 mm[Hg] Danny Sharma MD Work Phone: [facility] 11-29-2021 10:18-0400 Body height 167.6 cm Danny Sharma MD Work Phone: [facility] 11-29-2021 10:18-0400 Body mass index (BMI) [Ratio] 36.72 kg/m2 Danny Sharma MD Work Phone: [facility] 11-29-2021 10:18-0400 Body temperature 98.29 [degF] Danny Sharma MD Work Phone: [facility] 11-29-2021 10:18-0400 Body weight 103.19 kg Danny Sharma MD Work Phone: [facility] 11-29-2021 10:18-0400 Diastolic blood pressure 94 mm[Hg] Danny Sharma MD Work Phone: [facility] 11-29-2021 10:18-0400 Heart rate 89 /min Danny Sharma MD Work Phone: [facility] 11-29-2021 10:18-0400 Respiratory rate 16 /min Danny Sharma MD Work Phone: [facility] 11-29-2021 10:18-0400 SaO2% (BldA) [Mass fraction] 95 % Danny Sharma MD Work Phone: [facility] 11-29-2021 10:18-0400 Systolic blood pressure 148 mm[Hg] Danny Sharma MD Work Phone: [facility] 10-30-2021 15:12-0400 Body height 167.[address] Alek Hernandez Work Phone: [facility] Work Phone: 10-30-2021 15:12-0400 Body mass index (BMI) [Ratio] 36.3 kg/m2 Dr. Alek Hernandez Work Phone: [facility] Work Phone: 10-30-2021 15:12-0400 Body temperature 97 [degF] Dr. Alek Hernandez Work Phone: [facility] Work Phone: 10-30-2021 15:12-0400 Body weight 102.[address] Alek Hernandez Work Phone: [facility] Work Phone: 10-30-2021 15:12-0400 Diastolic blood pressure 84 mm[Hg] Dr. Alek Hernandez Work Phone: [facility] Work Phone: 10-30-2021 15:12-0400 Heart rate 95 /min Dr. Alek Hernandez Work Phone: [facility] Work Phone: 10-30-2021 15:12-0400 Respiratory rate 16 /min Dr. Alek Hernandez Work Phone: [facility] Work Phone: 10-30-2021 15:12-0400 SaO2% (BldA) [Mass fraction] 95 % Dr. Alek Hernandez Work Phone: [facility] Work Phone: 10-30-2021 15:12-0400 Systolic blood pressure 124 mm[Hg] Dr. Alek Hernandez Work Phone: [facility] Work Phone: 10-18-2021 10:23-0400 Body mass index (BMI) [Ratio] 36.32 kg/m2 Danny Sharma MD Work Phone: [facility] 10-18-2021 10:23-0400 Body temperature 99.19 [degF] Danny Sharma MD Work Phone: [facility] 10-18-2021 10:23-0400 Body weight 102.06 kg Danny Sharma MD Work Phone: [facility] 10-18-2021 10:23-0400 Diastolic blood pressure 84 mm[Hg] Danny Sharma MD Work Phone: [facility] 10-18-2021 10:23-0400 Heart rate 96 /min Danny Sharma MD Work Phone: [facility] 10-18-2021 10:23-0400 Respiratory rate 16 /min Danny Sharma MD Work Phone: [facility] 10-18-2021 10:23-0400 SaO2% (BldA) [Mass fraction] 95 % Danny Sharma MD Work Phone: [facility] 10-18-2021 10:23-0400 Systolic blood pressure 145 mm[Hg] Danny Sharma MD Work Phone: [facility] 09-27-2021 11:23-0400 Body height 167.6 cm Danny Sharma MD Work Phone: [facility] 09-27-2021 11:23-0400 Body mass index (BMI) [Ratio] 36.11 kg/m2 Danny Sharma MD Work Phone: [facility] 09-27-2021 11:23-0400 Body temperature 98.1 [degF] Danny Sharma MD Work Phone: [facility] 09-27-2021 11:23-0400 Body weight 101.42 kg Danny Sharma MD Work Phone: [facility] 09-27-2021 11:23-0400 Diastolic blood pressure 93 mm[Hg] Danny Sharma MD Work Phone: [facility] 09-27-2021 11:23-0400 Heart rate 102 /min Danny Sharma MD Work Phone: [facility] 09-27-2021 11:23-0400 Respiratory rate 18 /min Danny Sharma MD Work Phone: [facility] 09-27-2021 11:23-0400 Systolic blood pressure 146 mm[Hg] Danny Sharma MD Work Phone: [facility] 09-06-2021 10:52-0400 Body height 167.6 cm Danny Sharma MD Work Phone: [facility] 09-06-2021 10:52-0400 Body mass index (BMI) [Ratio] 36.2 kg/m2 Danny Sharma MD Work Phone: [facility] 09-06-2021 10:52-0400 Body temperature 97.5 [degF] Danny Sharma MD Work Phone: [facility] 09-06-2021 10:52-0400 Body weight 101.74 kg Danny Sharma MD Work Phone: [facility] 09-06-2021 10:52-0400 Diastolic blood pressure 81 mm[Hg] Danny Sharma MD Work Phone: [facility] 09-06-2021 10:52-0400 Heart rate 89 /min Danny Sharma MD Work Phone: [facility] 09-06-2021 10:52-0400 SaO2% (BldA) [Mass fraction] 96 % Danny Sharma MD Work Phone: [facility] 09-06-2021 10:52-0400 Systolic blood pressure 127 mm[Hg] Danny Sharma MD Work Phone: [facility] 08-16-2021 12:18-0400 Body temperature 98.29 [degF] Danny Sharma MD Work Phone: [facility] 04-28-2022 12:18-0400 Diastolic blood pressure 78 mm[Hg] Danny Sharma MD Work Phone: [facility] 08-16-2021 12:18-0400 Heart rate 86 /min Danny Sharma MD Work Phone: [facility] 08-16-2021 12:18-0400 Respiratory rate 16 /min Danny Sharma MD Work Phone: [facility] 08-16-2021 12:18-0400 Systolic blood pressure 136 mm[Hg] Danny Sharma MD Work Phone: [facility] 08-16-2021 10:56-0400 Body height 167.6 cm Danny Sharma MD Work Phone: [facility] 08-16-2021 10:56-0400 Body mass index (BMI) [Ratio] 35.9 kg/m2 Danny Sharma MD Work Phone: [facility] 08-16-2021 10:56-0400 Body weight 100.88 kg Danny Sharma MD Work Phone: [facility] 06-28-2021 14:43-0500 Body temperature 98 [degF] Dr. Alek Hernandez Work Phone: [facility] Work Phone: 06-28-2021 14:43-0500 Body weight 100.[address] Alek Hernandez Work Phone: [facility] Work Phone: 06-28-2021 14:43-0500 Diastolic blood pressure 95 mm[Hg] Dr. Alek Hernandez Work Phone: [facility] Work Phone: 06-28-2021 14:43-0500 Heart rate 108 /min Dr. Alek Hernandez Work Phone: [facility] Work Phone: 06-28-2021 14:43-0500 Respiratory rate 14 /min Dr. Alek Hernandez Work Phone: [facility] Work Phone: 06-28-2021 14:43-0500 SaO2% (BldA) [Mass fraction] 98 % Dr. Alek Hernandez Work Phone: [facility] Work Phone: 06-28-2021 14:43-0500 Systolic blood pressure 143 mm[Hg] Dr. Alek Hernandez Work Phone: [facility] Work Phone: 06-28-2021 13:43-0500 Body temperature 98 [degF] Dr. Alek Hernandez Work Phone: [facility] Work Phone: 06-28-2021 13:43-0500 Body weight 100.[address] Alek Hernandez Work Phone: [facility] Work Phone: 06-28-2021 13:43-0500 Diastolic blood pressure 95 mm[Hg] Dr. Alek Hernandez Work Phone: [facility] Work Phone: 06-28-2021 13:43-0500 Heart rate 108 /min Dr. Alek Hernandez Work Phone: [facility] Work Phone: 06-28-2021 13:43-0500 Respiratory rate 14 /min Dr. Alek Hernandez Work Phone: [facility] Work Phone: 06-28-2021 13:43-0500 SaO2% (BldA) [Mass fraction] 98 % Dr. Alek Hernandez Work Phone: [facility] Work Phone: 06-28-2021 13:43-0500 Systolic blood pressure 143 mm[Hg] Dr. Alek Hernandez Work Phone: [facility] Work Phone: 06-28-2021 10:28-0500 Body temperature 98.2 [degF] Danny Sharma MD Work Phone: [facility] 06-28-2021 10:28-0500 Diastolic blood pressure 78 mm[Hg] Danny Sharma MD Work Phone: [facility] 06-28-2021 10:28-0500 Heart rate 101 /min Danny Sharma MD Work Phone: [facility] 06-28-2021 10:28-0500 Respiratory rate 18 /min Danny Sharma MD Work Phone: [facility] 06-28-2021 10:28-0500 Systolic blood pressure 109 mm[Hg] Danny Sharma MD Work Phone: [facility] 06-28-2021 09:09-0500 SaO2% (BldA) [Mass fraction] 95 % Danny Sharma MD Work Phone: [facility] 06-28-2021 08:59-0500 Body height 167.6 cm Danny Sharma MD Work Phone: [facility] 06-28-2021 08:59-0500 Body mass index (BMI) [Ratio] 35.36 kg/m2 Danny Sharma MD Work Phone: [facility] 06-28-2021 08:59-0500 Body weight 99.38 kg Danny Sharma MD Work Phone: [facility] 06-07-2021 14:42-0500 Body temperature 97.7 [degF] Danny Sharma MD Work Phone: [facility] 06-07-2021 14:42-0500 Diastolic blood pressure 76 mm[Hg] Danny Sharma MD Work Phone: [facility] 06-07-2021 14:42-0500 Heart rate 90 /min Danny Sharma MD Work Phone: [facility] 06-07-2021 14:42-0500 Respiratory rate 16 /min Danny Sharma MD Work Phone: [facility] 06-07-2021 14:42-0500 Systolic blood pressure 143 mm[Hg] Danny Sharma MD Work Phone: [facility] 06-07-2021 10:57-0500 Body mass index (BMI) [Ratio] 35.83 kg/m2 Danny Sharma MD Work Phone: [facility] 06-07-2021 10:57-0500 Body weight 100.7 kg Danny Sharma MD Work Phone: [facility] 05-23-2021 13:49-0500 Body temperature 98 [degF] Dr. Alek Hernandez Work Phone: [facility] Work Phone: 05-23-2021 13:49-0500 Body weight 101.[address] Alek Hernandez Work Phone: [facility] Work Phone: 05-23-2021 13:49-0500 Diastolic blood pressure 88 mm[Hg] Dr. Alek Hernandez Work Phone: [facility] Work Phone: 05-23-2021 13:49-0500 Heart rate 110 /min Dr. Alek Hernandez Work Phone: [facility] Work Phone: 05-23-2021 13:49-0500 Respiratory rate 14 /min Dr. Alek Hernandez Work Phone: [facility] Work Phone: 05-23-2021 13:49-0500 SaO2% (BldA) [Mass fraction] 94 % Dr. Alek Hernandez Work Phone: [facility] Work Phone: 05-23-2021 13:49-0500 Systolic blood pressure 140 mm[Hg] Dr. Alek Hernandez Work Phone: [facility] Work Phone: 05-16-2021 13:35-0500 Body temperature 98 [degF] Dr. Alek Hernandez Work Phone: [facility] Work Phone: 05-16-2021 13:35-0500 Body weight 103.[address] Alek Hernandez Work Phone: [facility] Work Phone: 05-16-2021 13:35-0500 Diastolic blood pressure 92 mm[Hg] Dr. Alek Hernandez Work Phone: [facility] Work Phone: 05-16-2021 13:35-0500 Heart rate 109 /min Dr. Alek Hernandez Work Phone: [facility] Work Phone: 05-16-2021 13:35-0500 Respiratory rate 14 /min Dr. Alek Hernandez Work Phone: [facility] Work Phone: 05-16-2021 13:35-0500 SaO2% (BldA) [Mass fraction] 97 % Dr. Alek Hernandez Work Phone: [facility] Work Phone: 05-16-2021 13:35-0500 Systolic blood pressure 136 mm[Hg] Dr. Alek Hernandez Work Phone: [facility] Work Phone: 05-09-2021 14:05-0500 Body temperature 98 [degF] Dr. Alek Hernandez Work Phone: [facility] Work Phone: 05-09-2021 14:05-0500 Body weight 103.[address] Alek Hernandez Work Phone: [facility] Work Phone: 05-09-2021 14:05-0500 Diastolic blood pressure 95 mm[Hg] Dr. Alek Hernandez Work Phone: [facility] Work Phone: 05-09-2021 14:05-0500 Heart rate 111 /min Dr. Alek Hernandez Work Phone: [facility] Work Phone: 05-09-2021 14:05-0500 Respiratory rate 14 /min Dr. Alek Hernandez Work Phone: [facility] Work Phone: 05-09-2021 14:05-0500 SaO2% (BldA) [Mass fraction] 99 % Dr. Alek Hernandez Work Phone: [facility] Work Phone: 05-09-2021 14:05-0500 Systolic blood pressure 153 mm[Hg] Dr. Alek Hernandez Work Phone: [facility] Work Phone: 05-02-2021 13:47-0500 Body temperature 97.2 [degF] Dr. Alek Hernandez Work Phone: [facility] Work Phone: 05-02-2021 13:47-0500 Body weight 102.[address] Alek Hernandez Work Phone: [facility] Work Phone: 05-02-2021 13:47-0500 Diastolic blood pressure 83 mm[Hg] Dr. Alek Hernandez Work Phone: [facility] Work Phone: 05-02-2021 13:47-0500 Heart rate 115 /min Dr. Alek Hernandez Work Phone: [facility] Work Phone: 05-02-2021 13:47-0500 Respiratory rate 14 /min Dr. Alek Hernandez Work Phone: [facility] Work Phone: 05-02-2021 13:47-0500 SaO2% (BldA) [Mass fraction] 93 % Dr. Alek Hernandez Work Phone: [facility] Work Phone: 05-02-2021 13:47-0500 Systolic blood pressure 165 mm[Hg] Dr. Alek Hernandez Work Phone: [facility] Work Phone: 04-25-2021 14:51-0500 Body temperature 98.1 [degF] Dr. Alek Hernandez Work Phone: [facility] Work Phone: 04-25-2021 14:51-0500 Body weight 103.[address] Alek Hernandez Work Phone: [facility] Work Phone: 04-25-2021 14:51-0500 Diastolic blood pressure 90 mm[Hg] Dr. Alek Hernandez Work Phone: [facility] Work Phone: 04-25-2021 14:51-0500 Heart rate 118 /min Dr. Alek Hernandez Work Phone: [facility] Work Phone: 04-25-2021 14:51-0500 Respiratory rate 14 /min Dr. Alek Hernandez Work Phone: [facility] Work Phone: 04-25-2021 14:51-0500 SaO2% (BldA) [Mass fraction] 96 % Dr. Alek Hernandez Work Phone: [facility] Work Phone: 04-25-2021 14:51-0500 Systolic blood pressure 156 mm[Hg] Dr. Alek Hernandez Work Phone: [facility] Work Phone: 04-16-2021 05:44-0500 Diastolic blood pressure 87 mm[Hg] Dr. Alek Hernandez Work Phone: [facility] Work Phone: 04-16-2021 05:44-0500 Heart rate 78 /min Dr. Alek Hernandez Work Phone: [facility] Work Phone: 04-16-2021 05:44-0500 Respiratory rate 17 /min Dr. Alek Hernandez Work Phone: [facility] Work Phone: 04-16-2021 05:44-0500 SaO2% (BldA) [Mass fraction] 98 % Dr. Alek Hernandez Work Phone: [facility] Work Phone: 04-16-2021 05:44-0500 Systolic blood pressure 106 mm[Hg] Dr. Alek Hernandez Work Phone: [facility] Work Phone: 04-16-2021 05:27-0500 Body temperature 97.8 [degF] Dr. Alek Hernandez Work Phone: [facility] Work Phone: 04-16-2021 03:50-0500 Body height 167.[address] Alek Hernandez Work Phone: [facility] Work Phone: 04-16-2021 03:50-0500 Body mass index (BMI) [Ratio] 38.3 kg/m2 Dr. Alek Hernandez Work Phone: [facility] Work Phone: 04-16-2021 03:50-0500 Body weight 107.[address] Alek Hernandez Work Phone: [facility] Work Phone: 04-09-2021 12:40-0500 Body mass index (BMI) [Ratio] 37.5 kg/m2 Dr. Alek Hernandez Work Phone: [facility] Work Phone: 04-09-2021 12:40-0500 Body weight 105.[address] Alek Hernandez Work Phone: [facility] Work Phone: 03-01-2021 10:05-0500 Body height 167.6 cm Danny Sharma MD Work Phone: [facility] 03-01-2021 10:05-0500 Body mass index (BMI) [Ratio] 38.62 kg/m2 Danny Sharma MD Work Phone: [facility] 03-01-2021 10:05-0500 Body temperature 97 [degF] Danny Sharma MD Work Phone: [facility] 03-01-2021 10:05-0500 Body weight 108.55 kg Danny Sharma MD Work Phone: [facility] 03-01-2021 10:05-0500 Diastolic blood pressure 95 mm[Hg] Danny Sharma MD Work Phone: [facility] 03-01-2021 10:05-0500 Heart rate 113 /min Danny Sharma MD Work Phone: [facility] 03-01-2021 10:05-0500 Respiratory rate 18 /min Danny Sharma MD Work Phone: [facility] 03-01-2021 10:05-0500 Systolic blood pressure 149 mm[Hg] Danny Sharma MD Work Phone: [facility] 02-08-2021 10:19-0400 Body temperature 97.39 [degF] Danny Sharma MD Work Phone: [facility] Work Phone: 02-08-2021 10:19-0400 Diastolic blood pressure 62 mm[Hg] Danny Sharma MD Work Phone: [facility] Work Phone: 02-08-2021 10:19-0400 Heart rate 78 /min Danny Sharma MD Work Phone: [facility] Work Phone: 02-08-2021 10:19-0400 Respiratory rate 18 /min Danny Sharma MD Work Phone: [facility] Work Phone: 02-08-2021 10:19-0400 Systolic blood pressure 117 mm[Hg] Danny Sharma MD Work Phone: [facility] Work Phone: 02-08-2021 08:52-0400 Body height 167.6 cm Danny Sharma MD Work Phone: [facility] Work Phone: 02-08-2021 08:52-0400 Body mass index (BMI) [Ratio] 39.06 kg/m2 Danny Sharma MD Work Phone: [facility] Work Phone: 02-08-2021 08:52-0400 Body weight 109.77 kg Danny Sharma MD Work Phone: [facility] Work Phone: 12-28-2020 10:30-0400 Diastolic blood pressure 79 mm[Hg] Danny Sharma MD Work Phone: [facility] Work Phone: 12-28-2020 10:30-0400 Heart rate 87 /min Danny Sharma MD Work Phone: [facility] Work Phone: 12-28-2020 10:30-0400 Respiratory rate 18 /min Danny Sharma MD Work Phone: [facility] Work Phone: 12-28-2020 10:30-0400 Systolic blood pressure 144 mm[Hg] Danny Sharma MD Work Phone: [facility] Work Phone: 12-28-2020 08:50-0400 Body height 167.6 cm Danny Sharma MD Work Phone: [facility] Work Phone: 12-28-2020 08:50-0400 Body mass index (BMI) [Ratio] 38.33 kg/m2 Danny Sharma MD Work Phone: [facility] Work Phone: 12-28-2020 08:50-0400 Body temperature 97.39 [degF] Danny Sharma MD Work Phone: [facility] Work Phone: 12-28-2020 08:50-0400 Body weight 107.73 kg Danny Sharma MD Work Phone: [facility] Work Phone: 12-27-2020 13:11-0400 Body mass index (BMI) [Ratio] 38.7 kg/m2 Danny Sharma MD Work Phone: [facility] Work Phone: 12-27-2020 13:11-0400 Body temperature 97.39 [degF] Danny Sharma MD Work Phone: [facility] Work Phone: 12-27-2020 13:11-0400 Body weight 108.77 kg Danny Sharma MD Work Phone: [facility] Work Phone: 12-27-2020 13:11-0400 Diastolic blood pressure 103 mm[Hg] Danny Sharma MD Work Phone: [facility] Work Phone: 12-27-2020 13:11-0400 Heart rate 107 /min Danny Sharma MD Work Phone: [facility] Work Phone: 12-27-2020 13:11-0400 Respiratory rate 16 /min Danny Sharma MD Work Phone: [facility] Work Phone: 12-27-2020 13:11-0400 Systolic blood pressure 159 mm[Hg] Danny [facility] Phone: [facility] Work Phone: 12-18-2020 14:00-0400 Body temperature 97.2 [degF] Danny Sharma [facility] Phone: [facility] Work Phone: 12-18-2020 14:00-0400 Diastolic blood pressure 71 mm[Hg] Danny Sharma [facility] Phone: [facility] Work Phone: 12-18-2020 14:00-0400 Heart rate 74 /min Danny Sharma [facility]: [facility] Work Phone: 12-18-2020 14:00-0400 Respiratory rate 12 /min Danny Sharma MD Work Phone: [facility] Work Phone: 12-18-2020 14:00-0400 SaO2% (BldA) [Mass fraction] 99 % Danny Sharma [facility] Work Phone: 12-18-2020 14:00-0400 Systolic blood pressure 133 mm[Hg] Danny Sharma MD Work Phone: [facility] Work Phone: 10-17-2020 16:16-0400 Body temperature 97 [degF] Danny Sharma MD Work Phone: [facility] Work Phone: 10-17-2020 16:16-0400 Diastolic blood pressure 97 mm[Hg] Danny Sharma MD Work Phone: [facility] Work Phone: 10-17-2020 16:16-0400 Heart rate 114 /min Danny Sharma MD Work Phone: [facility] Work Phone: 10-17-2020 16:16-0400 Respiratory rate 20 /min Danny Sharma MD Work Phone: [facility] Work Phone: 10-17-2020 16:16-0400 Systolic blood pressure 156 mm[Hg] Danny Sharma MD Work Phone: [facility] Work Phone: 08-14-2020 12:50-0400 Body temperature 97.2 [degF] Danny Sharma MD Work Phone: [facility] Work Phone: 08-14-2020 12:50-0400 Diastolic blood pressure 91 mm[Hg] Danny Sharma MD Work Phone: [facility] Work Phone: 08-14-2020 12:50-0400 Heart rate 99 /min Danny Sharma MD Work Phone: [facility] Work Phone: 08-14-2020 12:50-0400 Respiratory rate 18 /min Danny Sharma MD Work Phone: [facility] Work Phone: 08-14-2020 12:50-0400 Systolic blood pressure 155 mm[Hg] Danny Sharma MD Work Phone: [facility] Work Phone: 08-10-2020 16:12-0400 Body temperature 97.7 [degF] Danny Sharma MD Work Phone: [facility] Work Phone: 08-10-2020 16:12-0400 Diastolic blood pressure 91 mm[Hg] Danny Sharma MD Work Phone: [facility] Work Phone: 08-10-2020 16:12-0400 Heart rate 98 /min Danny Sharma MD Work Phone: [facility] Work Phone: 08-10-2020 16:12-0400 Respiratory rate 18 /min Danny Sharma MD Work Phone: [facility] Work Phone: 08-10-2020 16:12-0400 Systolic blood pressure 158 mm[Hg] Danny Sharma MD Work Phone: [facility] Work Phone: 08-10-2020 10:07-0400 Body height 167.6 cm Danny Sharma [facility] Work Phone: [facility] Work Phone: 08-10-2020 10:07-0400 Body mass index (BMI) [Ratio] 38.59 kg/m2 Danny Sharma MD Work Phone: [facility] Work Phone: 08-10-2020 10:07-0400 Body weight 108.45 kg Danny Sharma MD Work Phone: [facility] Work Phone: 08-10-2020 10:07-0400 SaO2% (BldA) [Mass fraction] 96 % Danny Sharma MD Work Phone: [facility] Work Phone: 07-20-2020 15:41-0400 Body Temperature 97.59 [degF] [facility] Work [facility]: 07-20-2020 15:41-0400 BP Diastolic 95 mm[Hg] Danny Sharma [facility] Work Phone: 07-20-2020 15:41-0400 BP Systolic 156 mm[Hg] Danny GIBOSNA Work Phone: 07-20-2020 15:41-0400 Pulse (Heart Rate) 87 /min Danny GIBSONA Work Phone: 07-20-2020 15:41-0400 Respiratory Rate 18 /min Danny GIBSONA Work Phone: 07-20-2020 08:49-0400 BMI (Body Mass Index) 38.69 kg/m2 Danny GIBSONA Work Phone: 07-20-2020 08:49-0400 Body weight 108.73 kg Danny GIBSONA Work Phone: 07-20-2020 08:49-0400 Height 167.6 cm Danny GIBSONA Work Phone: 06-29-2020 16:38-0500 Body Temperature 97.7 [degF] Danny GIBSONA Work Phone: 06-29-2020 16:38-0500 BP Diastolic 91 mm[Hg] Danny GIBSONA Work Phone: 06-29-2020 16:38-0500 BP Systolic 159 mm[Hg] Danny GIBSONA Work Phone: 06-29-2020 16:38-0500 Pulse (Heart Rate) 89 /min Danny GIBSONA Work Phone: 06-29-2020 16:38-0500 Respiratory Rate 16 /min Danny Sharma [facility] Work Phone: 06-29-2020 09:53-0500 BMI (Body Mass Index) 38.33 kg/m2 Danny Sharma [facility] Work Phone: 06-29-2020 09:53-0500 Body weight 107.73 kg Danny GIBSONA Work Phone: 06-29-2020 09:53-0500 Height 167.6 cm Danny TAPIA Work Phone: 04-19-2020 16:14-0500 BP Diastolic 96 mm[Hg] [facility] [place] 04-19-2020 16:14-0500 BP Systolic 147 mm[Hg] [facility] [place] 04-19-2020 16:14-0500 Pulse (Heart Rate) 99 /min [facility] [place] 04-19-2020 16:14-0500 Respiratory Rate 18 /min [facility] [place] 04-19-2020 08:44-0500 BMI (Body Mass Index) 37.22 kg/m2 Danny Quiñonez[facility] [place] 04-19-2020 08:44-0500 Body Temperature 97.11 [degF] Danny [facility] [place] 04-19-2020 08:44-0500 Body weight 104.6 kg Danny Qu[facility] [place] 04-19-2020 08:44-0500 Height 167.6 cm Danny [facility] [place] 03-23-2020 15:41-0500 Body Temperature 98.4 [degF] Danny [facility] [place] 03-23-2020 15:41-0500 BP Diastolic 90 mm[Hg] Danny [facility] [place] 03-23-2020 15:41-0500 BP Systolic 160 mm[Hg] Danny [facility] [place] 03-23-2020 15:41-0500 Pulse (Heart Rate) 91 /min [facility] [place] 03-23-2020 15:41-0500 Respiratory Rate 18 /min [facility] [place] 03-23-2020 08:54-0500 BMI (Body Mass Index) 37.48 kg/m2 Danny Qu[facility] [place] 03-23-2020 08:54-0500 Body weight 105.33 kg [facility] [place] 03-23-2020 08:54-0500 Height 167.6 cm [facility] [place] 03-23-2020 08:54-0500 Pulse Oximetry 97 % [facility] [place] 03-02-2020 15:48-0500 BP Diastolic 99 mm[Hg] [facility] [place] 03-02-2020 15:48-0500 BP Systolic 150 mm[Hg] [facility] [place] 03-02-2020 15:48-0500 Pulse (Heart Rate) 95 /min Danny Reese [facility] [place] 03-02-2020 15:48-0500 Respiratory Rate 18 /min Danny [place] 03-02-2020 08:54-0500 BMI (Body Mass Index) 37.33 kg/m2 [facility] [place] 03-02-2020 08:54-0500 Body Temperature 96.91 [degF] Danny [facility] [place] 03-02-2020 08:54-0500 Body weight 104.92 kg [facility] [place] [place] 03-02-2020 08:54-0500 Height 167.6 cm [facility] [place] 03-02-2020 08:54-0500 Pulse Oximetry 97 % [facility] [place] 02-10-2020 16:17-0400 BP Diastolic 91 mm[Hg] [facility] [place] 02-10-2020 16:17-0400 BP Systolic 166 mm[Hg] [facility] [place] 02-10-2020 16:17-0400 Pulse (Heart Rate) 100 /min Danny [facility] 02-10-2020 16:17-0400 Respiratory Rate 18 /min [facility] [place] 02-10-2020 08:29-0400 BMI (Body Mass Index) 37.25 kg/m2 [facility] [place] 02-10-2020 08:29-0400 Body Temperature 97.3 [degF] [facility] [place] 02-10-2020 08:29-0400 Body weight 104.69 kg [facility] [place] 02-10-2020 08:29-0400 Height 167.6 cm [facility] [place] 01-20-2020 16:12-0400 BP Diastolic 89 mm[Hg] [facility] [place] 01-20-2020 16:12-0400 BP Systolic 163 mm[Hg] [facility] [place] 01-20-2020 16:12-0400 Pulse (Heart Rate) 86 /min [facility] [place] 01-20-2020 16:12-0400 Pulse Oximetry 95 % [facility] [place] 01-20-2020 16:12-0400 Respiratory Rate 18 /min [facility] [place] 01-20-2020 13:26-0400 Body Temperature 98.01 [degF] [facility] [place] [place] 01-20-2020 09:57-0400 BMI (Body Mass Index) 37.77 kg/m2 [facility] [place] 01-20-2020 09:57-0400 Body weight 106.14 kg [facility] [place] 01-20-2020 09:57-0400 Height 167.6 cm [facility] [place] 12-30-2019 16:33-0400 BP Diastolic 78 mm[Hg] [facility] [place] 12-30-2019 16:33-0400 BP Systolic 140 mm[Hg] [facility] [place] 12-30-2019 16:33-0400 Pulse (Heart Rate) 69 /min [facility] 12-30-2019 16:33-0400 Pulse Oximetry 95 % [facility] [place] 12-30-2019 16:33-0400 Respiratory Rate 18 /min [facility] [place] 12-30-2019 14:36-0400 Body Temperature 98.91 [degF] [facility] [place] 12-30-2019 08:13-0400 BMI (Body Mass Index) 36.93 kg/m2 [facility] [place] 12-30-2019 08:13-0400 Body weight 103.78 kg Danny De[facility] [place] 12-30-2019 08:13-0400 Height 167.6 cm [facility] [place] 12-09-2019 16:00-0400 BP Diastolic 73 mm[Hg] [facility] [place] 12-09-2019 16:00-0400 BP Systolic 123 mm[Hg] [facility] [place] 12-09-2019 16:00-0400 Pulse (Heart Rate) 68 /min [facility] 12-09-2019 16:00-0400 Pulse Oximetry 95 % [facility] [place] 12-09-2019 16:00-0400 Respiratory Rate 15 /min [facility] [place] 12-09-2019 14:45-0400 Body Temperature 97 [degF] [facility] [place] 12-09-2019 09:44-0400 BMI (Body Mass Index) 37.45 kg/m2 [facility] [place] 12-09-2019 09:44-0400 Body weight 105.23 kg Danny De[facility] [place] 12-09-2019 09:44-0400 Height 167.6 cm Danny De[facility] [place] 12-03-2019 15:44-0400 BMI (Body Mass Index) 37.45 kg/m2 [facility] 12-03-2019 15:44-0400 Body Temperature 97.9 [degF] [facility] 12-03-2019 15:44-0400 Body weight 105.23 kg Danny De[facility] [place] 12-03-2019 15:44-0400 BP Diastolic 78 mm[Hg] [facility] [place] 12-03-2019 15:44-0400 BP Systolic 149 mm[Hg] Danny De[facility] [place] 12-03-2019 15:44-0400 Height 167.6 cm Danny De[facility] [place] 12-03-2019 15:44-0400 Pulse (Heart Rate) 74 /min Danny Dey [facility] 12-03-2019 15:44-0400 Pulse Oximetry 97 % Danny Dey [facility] [place] 12-03-2019 15:44-0400 Respiratory Rate 20 /min Danny Dey [facility]- [place], [place] Encounters Encounter Date Encounter Type Care Provider Facility Start: 10-13-2024 End: 10-13-2024 Refill Katty Jo [facility] [place] Comment on above: Recurrent carcinoma of endometrium (HCC); Anxiety associated with cancer diagnosis (HCC) Start: 10-01-2024 End: 10-01-2024 Refill Dena Camacho [facility] [place] Comment on above: Recurrent carcinoma of endometrium (HCC); Cancer associated pain; Cancer related pain Start: 09-14-2024 End: 09-14-2024 Refill Dena Camacho [facility] [place] Comment on above: Recurrent carcinoma of endometrium (HCC); Anxiety associated with cancer diagnosis (HCC) Start: 09-06-2024 End: 09-06-2024 Telephone encounter [facility] Start: 09-01-2024 End: 09-01-[address] Donovan Hernandez MD Work Phone: [facility] Work Phone: Start: 09-01-2024 End: 09-01-[address] Donovan Hernandez MD -Laboratory [place] Work Phone: Start: 09-01-2024 End: 09-01-2024 ambulatory Donovan Hernandez Facility:[facility] Start: 08-26-2024 End: 08-26-2024 Refill Dena Camacho [facility] Comment on above: Cancer related pain Start: 08-19-2024 End: 08-19-[address] Donovan Hernandez MD -Laboratory [place] Work Phone: Start: 08-19-2024 End: 08-19-2024 ambulatory Donoavn Hernandez Facility:[facility] Start: 08-17-2024 End: 08-17-2024 [facility] Comment on above: Recurrent carcinoma of endometrium (HCC); Anxiety associated with cancer diagnosis (HCC); Cancer associated pain; Cancer related pain Start: 08-09-2024 End: 08-09-2024 [facility] Comment on above: Cancer related pain Start: 08-05-2024 End: 08-05-[address] Donovan Hernandez MD Work Phone: [facility] Work Phone: Start: 08-05-2024 End: 08-05-[address] Donovan Hernandez MD -Laboratory, [place] Work Phone: Start: 08-05-2024 End: 08-05-2024 ambulatory Donovan Hernandez Facility:[facility] Start: 07-28-2024 End: 07-28-2024 Telephone encounter Giulia [facility] Start: 07-20-2024 End: 07-20-2024 Telephone encounter Giulia PAT[facility] Start: 07-18-2024 End: 07-18-2024 Emergency department patient visit Dr. Donovan Hernandez MD Work Phone: -Emergency Department Work Phone: Start: 07-15-2024 End: 07-19-2024 Refill Dena Camacho MA [facility] - [place] Comment on above: Recurrent carcinoma of endometrium (HCC); Anxiety associated with cancer diagnosis (HCC); Cancer related pain; Cancer associated pain Start: 07-15-2024 End: 07-15-2024 Office outpatient visit 25 minutes Alka Cason APRN - MEDICAL ASSISTANT SUPERVISOR Work Phone: [facility] Comment on above: SOB (shortness of br eath) (Primary Dx); Recurrent carcinoma of endometrium (HCC); Anxiety associated with cancer diagnosis (HCC); Cancer associated pain; Cancer related pain Start: 06-28-2024 End: 06-28-2024 Refill Dena Camacho MA [facility] - [place] Comment on above: Recurrent carcinoma of endometrium (HCC); Cancer associated pain; Cancer related pain Start: 06-17-2024 End: 06-17-2024 Telephone encounter Alka Cason APRN - MEDICAL ASSISTANT SUPERVISOR Work Phone: [facility] [place] Start: 06-07-2024 End: 06-07-2024 Refill Dena Camacho MA [facility] - [place] Comment on above: Recurrent carcinoma of endometrium (HCC); Anxiety associated with cancer diagnosis (HCC) Start: 05-31-2024 End: 05-31-2024 Refill Dena Camacho MA [facility] - [place] Comment on above: Cancer related pain; Recurrent carcinoma of endometrium (HCC) Start: 05-20-2024 End: 05-20-2024 Office outpatient visit 25 minutes Alka Cason APRN - MEDICAL ASSISTANT SUPERVISOR Work Phone: [facility] Comment on above: Tooth pain (Primary Dx); Recurrent carcinoma of endometrium (HCC); Cancer related pain; Neuropathy Start: 05-20-2024 End: 05-20-2024 ambulatory [facility] Start: 05-18-2024 End: 05-18-2024 Refill Dena Camacho MA [facility] - [place] Comment on above: Recurrent carcinoma of endometrium (HCC); Anxiety associated with cancer diagnosis (HCC); Cancer related pain Start: 05-04-2024 End: 05-04-2024 Emergency department patient visit Dr. Cayetano Gregorio DO -Emergency Department Work Phone: Start: 05-03-2024 End: 05-03-2024 Telephone encounter Katty Jo MA [facility] [place] Start: 04-28-2024 End: 04-28-2024 Refill Dena Camacho MA [facility] - [place] Comment on above: Cancer related pain Start: 04-16-2024 End: 04-16-2024 Refill Alka Cason THERMAL INTELLIGENCE ANALYST - MEDICAL ASSISTANT SUPERVISOR Work Phone: [facility] Comment on above: Recurrent carcinoma of endometrium (HCC); Cancer associated pain Start: 04-08-2024 End: 04-08-2024 Office outpatient visit 25 minutes Alka Cason THERMAL INTELLIGENCE ANALYST - MEDICAL ASSISTANT SUPERVISOR Work Phone: [facility] Comment on above: Recurrent carcinoma of endometrium (HCC); Anxiety associated with cancer diagnosis (HCC); Cancer related pain Start: 04-08-2024 End: 04-08-2024 ambulatory [facility] Start: 03-29-2024 End: 03-29-2024 Refill Dena Camacho [facility] - [place] Comment on above: Recurrent carcinoma of endometrium (HCC) (Primary Dx); Cancer related pain Start: 03-22-2024 End: 03-22-2024 Emergency department patient visit Dr. Praful Zambrano MD -Emergency Department Work Phone: Start: 03-21-2024 End: 04-25-2024 Telephone encounter Danny Sharma MD Work Phone: [facility]necologic [facility] - [place] Comment on above: Test Scheduling Start: 03-15-2024 End: 03-15-2024 Refill Dena Camacho MA [facility] - [place] Comment on above: Cancer related pain Start: 03-11-2024 End: 03-13-[address] [facility] THERMAL INTELLIGENCE ANALYST - MEDICAL ASSISTANT SUPERVISOR Work Phone: [facility] Start: 03-11-2024 End: 03-11-2024 Office outpatient visit 25 minutes Alka Cason THERMAL INTELLIGENCE ANALYST - MEDICAL ASSISTANT SUPERVISOR Work Phone: [facility] Comment on above: Current mild episode of major depressive disorder, unspecified whether recurrent (HCC) (Primary Dx); Recurrent carcinoma of endometrium (HCC); Cancer related pain; Type 2 diabetes mellitus without complication, without long-term current use of insulin (CMS/HCC) (HCC); Cancer associated pain; Hyperglycemia Start: 03-11-2024 End: 03-11-2024 ambulatory [facility] Start: 03-08-2024 End: 03-08-2024 [facility]: Med Refill Start: 03-01-2024 End: 03-01-2024 Telephone encounter [facility] Start: 02-23-2024 End: 02-23-2024 Telephone encounter [facility] Comment on above: Med Refill Start: 02-17-2024 End: 02-17-2024 Telephone encounter [facility] Comment on above: Med Refill Start: 02-17-2024 ambulatory Danny Laskey Facility:[facility] Start: 02-10-2024 End: 02-10-2024 ambulatory Danny [facility] Facility:[facility] Start: 02-09-2024 End: 02-09-2024 Telephone encounter [facility] Comment on above: Med Refill Start: 02-02-2024 End: 02-02-2024 Refill Dena Camacho MA [facility] - [place] Comment on above: Cancer related pain Start: 01-29-2024 End: 01-29-2024 Office outpatient visit 15 minutes Danny Sharma MD Work Phone: [facility] Gynecologic Oncology [facility] Comment on above: Recurrent carcinoma of endometrium (HCC) (Primary Dx); Cancer associated pain; S/P radiation therapy; 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); 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) Start: 01-29-2024 End: 01-29-2024 ambulatory DANNY SHARMA [facility] Start: 01-22-2024 End: 01-22-2024 Telephone encounter Katty Jo MA [facility] [place] Start: 01-19-2024 End: 01-20-2024 Refill Dena Camacho [facility] [place]ie Hern[facility]dez Comment on above: Cancer related pain Start: 01-05-2024 End: 01-05-2024 Telephone encounter Linette Crandall RN [facility] - [place] Start: 12-30-2023 End: 12-30-2023 Refill Dena Camacho [facility] Comment on above: Cancer related pain; Recurrent carcinoma of endometrium (HCC); Anxiety associated with cancer diagnosis (HCC) Start: 12-12-2023 End: 12-12-2023 Refill D[facility] Comment on above: Recurrent carcinoma of endometrium (HCC); Anxiety associated with cancer diagnosis (HCC) Start: 11-25-2023 End: 11-25-2023 Refill Dena Camacho [facility] Comment on above: Recurrent carcinoma of endometrium (HCC); Anxiety associated with cancer diagnosis (HCC) Start: 11-05-2023 End: 11-05-2023 Telephone encounter Katty Jo MA [facility] Comment on above: Med Refill Start: 10-30-2023 End: 10-30-2023 Office outpatient visit 25 minutes Alka Cason THERMAL INTELLIGENCE ANALYST - MEDICAL ASSISTANT SUPERVISOR Work Phone: [facility] Comment on above: Neuropathy (Primary Dx); Recurrent carcinoma of endometrium (HCC); Endometrial cancer (CMS/HCC) (HCC); Cancer associated pain; Anxiety associated with cancer diagnosis (HCC) Start: 10-30-2023 End: 10-30-2023 ambulatory ALKA CASON [facility] Start: 10-30-2023 End: 10-30-2023 Postop follow up visit related to original px Malinda Boone THERMAL INTELLIGENCE ANALYST - MEDICAL ASSISTANT SUPERVISOR Work Phone: [facility] Gynec[facility] Comment on above: Post-operative state (Primary Dx) Start: 10-30-2023 End: 10-30-2023 ambulatory MALINDA BOONE [facility] Start: 10-21-2023 End: 11-24-2023 Telephone encounter Danny Sharma MD Work Phone: [facility] Gynecologic [facility] Comment on above: Med Management (oxyC ODONE (Roxicodone) 5 MG immediate release tablet) Start: 10-06-2023 End: 10-06-2023 Subsequent hospital visit by physician Danny Sharma MD Work Phone: [facility] Comment on above: Cancer related pain (Primary Dx); Malignant neoplasm of endometrium (HCC); Secondary malignant neoplasm of right lung (HCC); 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) Start: 09-30-2023 Refill Malinda YANG RN - MEDICAL ASSISTANT SUPERVISOR Work Phone: [facility] Comment on above: Recurrent carcinoma of endometrium (HCC); Anxiety associated with cancer diagnosis (HCC) Start: 09-23-2023 End: 09-23-2023 Telephone encounter Danny Sharma MD Work Phone: [facility] Start: 09-01-2023 Telephone encounter Danny Fam MD Work Phone: [facility] Comment on above: surgery scheduling ( Scheduled at [facility]) Start: 08-29-2023 Orders Only Salome Bismark THERMAL INTELLIGENCE ANALYST - MEDICAL ASSISTANT SUPERVISOR Work Phone: [facility] Comment on above: Cancer associated pa in Other Start: 08-25-2023 Orders Only Salome Bismark THERMAL INTELLIGENCE ANALYST - MEDICAL ASSISTANT SUPERVISOR Work Phone: [facility] Comment on above: Recurrent carcinoma of endometrium (HCC); Anxiety associated with cancer diagnosis (HCC); Endometrial cancer (CMS/HCC) (HCC); Secondary malignancy of para-aortic lymph node (HCC) Start: 08-18-2023 Telephone encounter Danny Fam MD Work Phone: [facility] Start: 08-14-2023 Telephone encounter Danny Fam MD Work Phone: [facility] Start: 08-04-2023 Orders Only Salome Sofia THERMAL INTELLIGENCE ANALYST - MEDICAL ASSISTANT SUPERVISOR Work Phone: [facility] Comment on above: Nausea (Primary Dx); Recurrent carcinoma of endometrium (HCC); Anxiety associated with cancer diagnosis (HCC); Endometrial cancer (CMS/HCC) (HCC); Secondary malignancy of para-aortic lymph node (HCC); Cancer associated pain Start: 07-23-2023 Orders Only Salome Bismark THERMAL INTELLIGENCE ANALYST - MEDICAL ASSISTANT SUPERVISOR Work Phone: [facility] Comment on above: Recurrent carcinoma of endometrium (HCC); Anxiety associated with cancer diagnosis (HCC); Endometrial cancer (CMS/HCC) (HCC); Secondary malignancy of para-aortic lymph node (HCC) Start: 07-09-2023 Orders Only Salome Bismark THERMAL INTELLIGENCE ANALYST - MEDICAL ASSISTANT SUPERVISOR Work Phone: [facility] Comment on above: Recurrent carcinoma of endometrium (HCC); Anxiety associated with cancer diagnosis (HCC); Endometrial cancer (CMS/HCC) (HCC); Secondary malignancy of para-aortic lymph node (HCC) Start: 07-02-2023 Orders Only Salome Bismark THERMAL INTELLIGENCE ANALYST - MEDICAL ASSISTANT SUPERVISOR Work Phone: [facility] Comment on above: Recurrent carcinoma of endometrium (HCC); Anxiety associated with cancer diagnosis (HCC); Endometrial cancer (CMS/HCC) (HCC); Secondary malignancy of para-aortic lymph node (HCC) Start: 06-26-2023 Telephone encounter Danny Fam MD Work Phone: [facility] Start: 06-25-2023 Orders Only Salome Sofia THERMAL INTELLIGENCE ANALYST - MEDICAL ASSISTANT SUPERVISOR Work Phone: [facility] Comment on above: Endometrial cancer ( CMS/HCC) (HCC); Secondary malignancy of para-aortic lymph node (HCC) Start: 06-17-2023 Telephone encounter Danny Fam MD Work Phone: [facility] Start: 05-13-2023 Refill Malinda YANG RN - MEDICAL ASSISTANT SUPERVISOR Work Phone: [facility] Comment on above: Recurrent carcinoma of endometrium (HCC); 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); Anxiety associated with cancer diagnosis (HCC) Start: 05-01-2023 End: 05-01-2023 Office outpatient visit 15 minutes Malinda Boone THERMAL INTELLIGENCE ANALYST - MEDICAL ASSISTANT SUPERVISOR Work Phone: [facility] Comment on above: Recurrent carcinoma of endometrium (HCC) (Primary Dx); 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); Anxiety associated with cancer diagnosis (HCC) Start: 04-15-2023 Telephone encounter Danny Fam MD Work Phone: [facility] General Surgery Start: 04-10-2023 End: 04-10-2023 Subsequent hospital visit by physician Danny Sharma MD Work Phone: [facility] Comment on above: Recurrent carcinoma of endometrium (HCC); 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); S/P radiation therapy Start: 04-04-2023 Telephone encounter Salome contreras THERMAL INTELLIGENCE ANALYST - MEDICAL ASSISTANT SUPERVISOR Work Phone: [facility] Comment on above: Med Refill Recurrent carcinoma of endometrium (HCC); Anxiety associated with cancer diagnosis (HCC) Start: 03-26-2023 Orders Only Salome Bismark THERMAL INTELLIGENCE ANALYST - MEDICAL ASSISTANT SUPERVISOR Work Phone: [facility] Start: 03-24-2023 Orders Only Salome Sofia THERMAL INTELLIGENCE ANALYST - MEDICAL ASSISTANT SUPERVISOR Work Phone: [facility] Comment on above: Cancer associated pa in; Recurrent carcinoma of endometrium (HCC); Anxiety associated with cancer diagnosis (HCC) Start: 03-17-2023 Telephone encounter Malinda Frieda d THERMAL INTELLIGENCE ANALYST - MEDICAL ASSISTANT SUPERVISOR Work Phone: [facility] Comment on above: Med Refill Cancer associated pa in Cancer associated pa in (Primary Dx) Start: 03-07-2023 Telephone encounter Danny Fam MD Work Phone: [facility] Start: 02-26-2023 End: 02-26-2023 Office outpatient visit 15 minutes Godfrey Preston DO Work Phone: 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 Comment on above: S/P radiation therap y (Primary Dx); Vulvar ulcer; 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) Start: 02-05-2023 End: 02-05-2023 Subsequent hospital visit by physician Godfrey Preston DO Work Phone: [facility] Comment on above: Arrived Start: 01-30-2023 Orders Only Salome Case CNP Work Phone: [facility] Comment on above: Recurrent carcinoma of endometrium (HCC); Anxiety associated with cancer diagnosis (HCC); Vulvar irritation Start: 01-29-2023 End: 01-29-2023 Office outpatient new 30 minutes Godfrey Preston DO Work Phone: 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 Jose Hernandez Work Phone: [facility] Start: 01-15-2023 End: 01-15-[address] Alek Hernandez Work Phone: [facility] Work Phone: Start: 01-15-2023 End: 01-15-[address] 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); S/P radiation therapy; Cancer associated pain Start: 11-29-2022 End: 11-29-2022 ambulatory [facility] Work Phone: Start: 11-29-2022 End: 11-29-2022 Patient encounter procedure [facility]-Laboratory, [place] Work Phone: Start: 11-28-2022 End: 11-28-2022 ambulatory [facility] Work Phone: Start: 11-28-2022 End: 11-28-2022 Patient encounter procedure [facility]-Radiology, [place] Work Phone: Start: 11-14-2022 End: 11-14-2022 Office outpatient visit 15 minutes Danny Sharma MD Work Phone: [facility] Comment on above: Recurrent carcinoma of endometrium (HCC) (Primary Dx); S/P radiation therapy; 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); Vulvar irritation; Cancer associated pain Start: 11-01-2022 Orders Only Salome Sofia THERMAL INTELLIGENCE ANALYST - MEDICAL ASSISTANT SUPERVISOR Work Phone: [facility] Comment on above: Endometrial cancer ( CMS/HCC) (HCC) Start: 10-29-2022 Telephone encounter Danny Fam MD Work Phone: [facility] Start: 10-23-2022 Telephone encounter Danny Fam MD Work Phone: [facility] Start: 10-16-2022 Orders Only Salome Sofia THERMAL INTELLIGENCE ANALYST - MEDICAL ASSISTANT SUPERVISOR Work Phone: [facility] Comment on above: Cancer associated pa in Start: 10-15-2022 Telephone encounter Salome contreras THERMAL INTELLIGENCE ANALYST - MEDICAL ASSISTANT SUPERVISOR Work Phone: [facility] Comment on above: Med Refill (oxyCODON E (Roxicodone)) Reschedule (Appt 10/19 3) Start: 10-10-2022 Orders Only Salome Case CNP Work Phone: [facility] Comment on above: Cancer associated pa in Start: 10-04-2022 Orders Only Salome Case CNP Work Phone: [facility] Comment on above: Cancer associated pa in Start: 08-19-2022 End: 08-19-2022 Subsequent hospital visit by physician Danny Sharma MD Work Phone: [facility] MAIN OR Comment on above: Post-operative state (Primary Dx); Malignant neoplasm of endometrium (HCC); Personal history of irradiation; Neoplasm related pain (acute) (chronic) Start: 08-15-2022 End: 08-15-2022 Office outpatient visit 15 minutes Danny Sharma MD Work Phone: [facility] Comment on above: Recurrent carcinoma of endometrium (HCC) (Primary Dx); 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); S/P radiation therapy; Cancer associated pain; Anxiety associated with cancer diagnosis (HCC); 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); Regional lymph node metastasis present (HCC) Start: 08-09-2022 Orders Only Salome Case CNP Work Phone: [facility] Comment on above: Recurrent carcinoma of endometrium (HCC); Anxiety associated with cancer diagnosis (HCC); Cancer associated pain Start: 07-25-2022 Telephone encounter Danny Fam MD Work Phone: [facility] Start: 07-22-2022 Telephone encounter Danny Fam MD Work Phone: [facility] Comment on above: Other (PT called to get her prescription refilled ) Start: 06-13-2022 End: 06-13-2022 Patient encounter procedure Danny Sharma MD Work Phone: [facility] Comment on above: Postoperative state (Primary Dx); Recurrent carcinoma of endometrium (HCC); 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); Urinary urgency; Anxiety associated with cancer diagnosis (HCC); Cancer associated pain Start: 06-03-2022 Telephone encounter Danny Fam MD Work Phone: [facility] [place] DAIRY MANUFACTURING TECHNOLOGIST Oncology Start: 05-30-2022 End: 05-30-2022 Subsequent hospital visit by physician Danyn Sharma MD Work Phone: [facility] Comment on above: Other specified abril nflammatory disorders of vagina; Neoplasm related pain (acute) (chronic); Malignant neoplasm of endometrium (HCC) Start: 05-24-2022 Telephone encounter Danny Fam MD Work Phone: [facility] [place] DAIRY MANUFACTURING TECHNOLOGIST Oncology Comment on above: surgery scheduling ( Scheduled at [facility] ) Start: 05-23-2022 Telephone encounter Danny Fam MD Work Phone: [facility] [place] DAIRY MANUFACTURING TECHNOLOGIST Oncology Start: 05-16-2022 End: 05-16-2022 Office outpatient visit 10 minutes Danny Sharma MD Work Phone: [facility] DAIRY MANUFACTURING TECHNOLOGIST Oncology Comment on above: Recurrent carcinoma of endometrium (HCC) (Primary Dx); S/P radiation therapy; Chemotherapy management, encounter for; Vaginal lesion; Endometrial cancer (CMS/HCC) (HCC); Anxiety associated with cancer diagnosis (HCC); Cancer associated pain Start: 05-13-2022 Telephone encounter Danny Fam MD Work Phone: [facility] [place] DAIRY MANUFACTURING TECHNOLOGIST Oncology Comment on above: Cancer associated pa in (Primary Dx) Start: 05-06-2022 Telephone encounter Danny Fam MD Work Phone: [facility] [place] DAIRY MANUFACTURING TECHNOLOGIST Oncology Comment on above: Cancer associated pa in (Primary Dx); Endometrial cancer (CMS/HCC) (HCC); Anxiety associated with cancer diagnosis (HCC) Start: 04-29-2022 Telephone encounter Danny Fam MD Work Phone: [facility] [place] DAIRY MANUFACTURING TECHNOLOGIST Oncology Comment on above: Med Refill Cancer associated pa in (Primary Dx); Recurrent carcinoma of endometrium (HCC) Start: 04-23-2022 Telephone encounter Danny Fam MD Work Phone: [facility] Comment on above: Results (/) Start: 04-04-2022 ambulatory Donovan Hernandez [facility] Start: 01-09-2022 End: 01-09-[address] Alek Hernandez Work Phone: [facility] Work Phone: Start: 01-09-2022 End: 01-09-[address] Alek Hernandez Work Phone: [facility] Start: 11-29-2021 End: 11-29-2021 Subsequent hospital visit by physician Danny Sharma MD Work Phone: [facility] Comment on above: Endometrial cancer ( HCC) (Primary Dx) Start: 11-28-2021 End: 11-28-[address] Alek Hernandez Work Phone: [facility] Work Phone: Start: 11-28-2021 End: 11-28-[address] Alek Hernandez Work Phone: [facility] Start: 10-30-2021 End: 10-30-[address] Alek Hernandez Work Phone: [facility] Start: 10-18-2021 End: 10-18-2021 Subsequent hospital visit by physician Danny Sharma MD Work Phone: [facility] Comment on above: Endometrial cancer ( HCC) (Primary Dx) Start: 10-17-2021 End: 10-18-[address] 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 Start: 09-06-2021 End: 09-06-2021 Subsequent hospital visit by physician Danny Sharma MD Work Phone: [facility] Comment on above: Endometrial cancer ( HCC) (Primary Dx) Start: 09-05-2021 End: 09-05-[address] Alek Hernandez Work Phone: [facility] Start: 08-16-2021 [facility] Donovan Hernandez [facility] Start: 08-16-2021 End: 08-16-2021 Subsequent hospital visit by physician Danny Sharma MD Work Phone: [facility] Comment on above: Endometrial cancer ( HCC) (Primary Dx) Start: 08-15-2021 End: 08-15-[address] Alek Hernandez Work Phone: [facility] Start: 08-02-2021 [facility] Start: 06-28-2021 End: 06-28-[address] Alek Hernandez Work Phone: [facility] Start: 06-28-2021 End: 06-28-2021 Subsequent hospital visit by physician Danny Sharma MD Work Phone: [facility] Comment on above: Endometrial cancer ( HCC) (Primary Dx) Start: 06-27-2021 End: 07-19-[address] Alek Hernandez Work Phone: [facility] Start: 06-13-[address] [facility] Start: 06-07-2021 [facility] Start: 06-07-2021 End: 06-07-2021 Subsequent hospital visit by physician Danny Sharma MD Work Phone: [facility] Comment on above: Endometrial cancer ( HCC) (Primary Dx); Dehydration Start: 06-01-2021 [facility] Start: 05-31-2021 ambulatory [facility] Start: 05-30-2021 End: 05-30-[address] Alek Hernandez Work Phone: [facility] Start: 05-30-2021 Non-patient / Non-visit Dr. Jose Hernandez Work Phone: [facility] Start: 05-29-[address] [facility] Start: 05-29-2021 End: 05-29-[address] Alek Hernandez Work Phone: [facility] Start: 05-24-2021 ambulatory [facility] Start: 05-23-2021 End: 05-23-[address] Alek Hernandez Work Phone: [facility] Start: 05-16-2021 End: 05-16-[address] Alek Hernandez Work Phone: [facility] Start: 05-09-2021 End: 05-09-[address] Alek Hernandez Work Phone: [facility] Start: 05-02-2021 End: 05-21-[address] Alek Hernandez Work Phone: [facility] Start: 05-02-2021 End: 05-02-[address] Alek Hernandez Work Phone: [facility] Start: 04-27-2021 [facility] Start: 04-25-2021 End: 04-25-[address] Alek Hernandez Work Phone: [facility] Start: 04-24-2021 Non-patient / Non-visit Dr. Jose Hernandez Work Phone: [facility] Start: 04-23-2021 Non-patient / Non-visit Dr. Jose Hernandez Work Phone: [facility] Start: 04-16-2021 End: 04-16-2021 Emergency department patient visit Dr. Alek Hernandez Work Phone: [facility] Start: 04-11-2021 End: 04-21-[address] Alek Hernandez Work Phone: [facility] Start: 04-10-2021 Non-patient / Non-visit Dr. Jose Hernandez Work Phone: [facility] Start: 04-09-2021 End: 04-09-[address] Alek Hernandez Work Phone: [facility] Start: 03-29-2021 ambulatory [facility] Start: 03-22-2021 ambulatory Donovan Enc[facility]acionyov[facility] Start: 03-01-2021 ambulatory Donovan Hernandez [facility] Start: 03-01-2021 End: 03-01-2021 Subsequent hospital visit by physician Danny Sharma MD Work Phone: [facility] Comment on above: Endometrial cancer ( HCC) (Primary Dx) Start: 02-22-2021 End: 02-22-2021 Subsequent hospital visit by physician Danny Sharma MD Work Phone: [employer] [facility] Comment on above: Endometrial cancer ( HCC) Start: 02-08-2021 End: 02-08-2021 Subsequent hospital visit by physician Danny Sharma MD Work Phone: [facility] Comment on above: Endometrial cancer ( HCC) (Primary Dx) Start: 12-28-2020 End: 12-28-2020 Subsequent hospital visit by physician Danny Sharma MD Work Phone: [facility] Comment on above: Endometrial cancer ( HCC) (Primary Dx) Start: 12-27-2020 End: 12-27-2020 Subsequent hospital visit by physician Danny Sharma MD Work Phone: [facility] Comment on above: Endometrial cancer ( HCC) (Primary Dx); Dehydration; Recurrent carcinoma of endometrium (HCC) Start: 12-18-2020 End: 12-18-2020 Subsequent hospital visit by physician Danny Sharma MD Work Phone: [employer] [facility] Comment on above: Malignant neoplasm o f endometrium (HCC); Endometrial cancer (HCC); Poor venous access Start: 12-08-2020 End: 12-08-2020 Subsequent hospital visit by physician Danny Sharma MD Work Phone: [facility] Comment on above: Recurrent carcinoma of endometrium (HCC); Vaginal lesion; Regional lymph node metastasis present (HCC) Start: 10-17-2020 End: 10-17-2020 Subsequent hospital visit by physician Danny Sharma MD Work Phone: [facility] Comment on above: Weakness; Other specified abnormal findings of blood chemistry ; Chronic hypertension; Body mass index (BMI) 35.0-35.9, adult Start: 09-07-2020 End: 09-07-2020 Subsequent hospital visit by physician Danny Sharma MD Work Phone: [facility] Comment on above: Shortness of breath; Recurrent carcinoma of endometrium (HCC); Endometrial cancer (HCC) Start: 08-14-2020 End: 08-14-2020 Subsequent hospital visit by physician Danny Sharma MD Work Phone: [facility] Comment on above: Dehydration (Primary Dx); Endometrial cancer (HCC) Start: 08-10-2020 End: 08-10-2020 Subsequent hospital visit by physician Danny Sharma MD Work Phone: [facility] Comment on above: Endometrial cancer ( HCC) (Primary Dx) Start: 07-20-2020 End: 07-20-2020 Subsequent hospital visit by physician Danny Sharma Work Phone: [facility] Comment on above: Endometrial cancer ( HCC) (Primary Dx); Secondary malignancy of para-aortic lymph node (HCC) Start: 06-29-2020 End: 06-29-2020 Subsequent hospital visit by physician Danny Sharma Work Phone: [facility] Comment on above: Endometrial cancer ( HCC) (Primary Dx) Start: 05-26-2020 End: 05-26-2020 Subsequent hospital visit by physician Danny Sharma Work Phone: [facility] Comment on above: Malignant neoplasm o f endometrium (HCC) Start: 04-19-2020 End: 04-19-2020 Subsequent hospital visit by physician Danny Sharma Work Phone: [facility] Comment on above: Endometrial cancer ( HCC) (Primary Dx) Start: 04-18-2020 End: 04-18-2020 Subsequent hospital visit by physician Mirna Nixon Work Phone: [facility] [address] Comment on above: Encounter for chemot herapy management Start: 03-23-2020 End: 03-23-2020 Subsequent hospital visit by physician Danny Sharma Work Phone: [facility] Comment on above: Endometrial cancer ( HCC) (Primary Dx) Start: 03-02-2020 End: 03-02-2020 Subsequent hospital visit by physician Danny Sharma Work Phone: [facility] Comment on above: Endometrial cancer ( HCC) (Primary Dx) Start: 02-29-2020 End: 02-29-2020 Subsequent hospital visit by physician Mirna Nixon Work Phone: [facility] Comment on above: Arrived Start: 02-10-2020 End: 02-10-2020 Subsequent hospital visit by physician Danny Sharma Work Phone: [facility] Comment on above: Endometrial cancer ( HCC) (Primary Dx) Start: 01-20-2020 End: 01-20-2020 Subsequent hospital visit by physician Danny Sharma Work Phone: [facility] Comment on above: Endometrial cancer ( HCC) (Primary Dx) Start: 01-18-2020 End: 01-18-2020 Subsequent hospital visit by physician Danny Sharma Work Phone: [facility] [address] Comment on above: Endometrial cancer ( HCC) Start: 12-30-2019 End: 12-30-2019 Subsequent hospital visit by physician Danny Sharma Work Phone: [facility] Comment on above: Endometrial cancer ( HCC) (Primary Dx) Start: 12-09-2019 End: 12-09-2019 Subsequent hospital visit by physician Danny Sharma Work Phone: [facility] General Surgery Comment on above: S/P laparoscopy (Porsche cantor Dx) Start: 12-03-2019 End: 12-03-2019 Subsequent hospital visit by physician Danny Sharma Work Phone: [facility] Pre-Admit Testing Comment on above: Arrived Start: 10-26-2019 End: 10-26-2019 Subsequent hospital visit by physician Danny Sharma Work Phone: [facility] Comment on above: Arrived Procedures Date Procedure Procedure Detail Performing Clinician Start: 09-01-2024 Vitamin D, 25-hydrox y measurement Dr. Donovan Hernandez MD Work Phone: Comment on above: Vitamin D StatusDefi ciency: <20 ng/mL (50nmol/L)Insufficiency: 20-30 ng/mL (50-75 nmol/L)Sufficiency: 30-100 ng/mL (75-250 nmol/L)Toxicity: >100 ng/mL (>250 nmol/L) Start: 08-19-2024 Plain X-ray abdomen Dr. Donovan Hernandez MD Work Phone: Start: 08-05-2024 Osmolality measureme nt, serum Dr. Donovan Hernandez MD Work Phone: Start: 07-18-2024 X-ray of chest, PA a nd lateral views Dr. Donovan Hernandez MD Work Phone: Start: 07-18-2024 Urnls dip stick/tabl et reagent auto microscopy Dr. Donovan Hernandez MD Work Phone: Start: 07-18-[address] Donovan Hernandez MD Work Phone: Start: 07-18-2024 SARS-CoV-2, Influenz a & RSV (PCR) Dr. Donovan Hernandez MD Work Phone: Start: 07-18-[address] Adrien Hernandez MD Work Phone: Start: 05-04-[address] Adrien Hernandez MD Work Phone: Start: 03-22-2024 X-ray of chest, PA a nd lateral views Dr. Donovan Hernandez MD Work Phone: Start: 03-22-2024 CT of head without contrast Dr. Donovan Hernandez MD Work Phone: Start: 03-22-[address] Adrien Hernandez MD Work Phone: Start: 03-22-[address] Adrien Hernandez MD Work Phone: Start: 03-11-2024 Complete blood count with white cell differential, automated Alka Cason THERMAL INTELLIGENCE ANALYST - [facility] Work Phone: Start: 03-11-2024 Comprehensive metabo lic panel Alka Cason THERMAL INTELLIGENCE ANALYST - [facility] Work Phone: Start: 10-30-2023 Follow-up visit Follow-up MALINDA PAOLO Start: 10-06-2023 Glucose quantitative blood xcpt reagent strip Danny Sharma MD Work Phone: Start: 10-06-2023 Ecg routine ecg w/le ast 12 lds trcg only w/o i&r Gabi Mcghee THERMAL INTELLIGENCE ANALYST - [facility] Work Phone: Start: 10-06-2023 Glucose quantitative blood xcpt reagent strip Danny Sharma MD Work Phone: Start: 04-10-[address] attenuation skull base mid-thigh Danny Sharma MD Work Phone: Start: 11-28-2022 Diagnostic radiograp hy of abdomen, decubitus and erect Start: 11-28-2022 X-ray of unilateral ribs, two views without x-ray of chest Start: 08-19-2022 Glucose quantitative blood xcpt reagent strip Danny Sharma MD Work Phone: Start: 08-19-2022 Ecg routine ecg w/le ast 12 lds trcg only w/o i&r Ronny Bruce MD Work Phone: Start: 08-19-2022 End: 08-19-2022 Basic metabolic panel calcium total Ronny Bruce MD Work Phone: Start: 01-31-2022 Adult depression screening assessment Godfrey Preston DO Work Phone: Start: 11-28-2021 CBC W Auto Different ial panel - Blood Danny Sharma MD Work Phone: Start: 11-28-2021 Comprehensive metabo lic panel Danny Sharma MD Work Phone: Start: 09-05-2021 CBC W Auto Different ial panel - Blood Danny Sharma MD Work Phone: Start: 09-05-2021 Comprehensive metabo lic panel Danny Shrama MD Work Phone: Start: 08-16-2021 Assay of thyroid stimulating hormone tsh Danny Sharma MD Work Phone: Start: 06-27-2021 CBC W Auto Different ial panel - Blood Danny Sharma MD Work Phone: Start: 06-27-2021 Comprehensive metabo lic panel Danny Sharma MD Work Phone: Start: 04-16-[address] Adrien Hernandez Work Phone: Start: 04-16-2021 CT of abdomen and pe lvis without contrast Dr. Alek Hernandez Work Phone: Start: 02-28-2021 CBC W Auto Different ial panel - Blood Danny Sharma MD Work Phone: Start: 02-28-2021 Comprehensive metabo lic panel Danny Sharma MD Work Phone: Start: 02-22-[address] attenuation skull base mid-thigh Danny Sharma MD Work Phone: Start: 12-27-2020 Comprehensive metabo lic panel Danny Sharma MD Work Phone: Start: 12-18-2020 OPERATIVE REPORT 3m Sca nning Start: 12-18-2020 Special diagnostic procedures Danny Sharma MD Work Phone: Start: 12-18-2020 Blood count complete automated Edis Camarena MD Work Phone: Start: 10-17-2020 Comprehensive metabo lic panel Danny Sharma MD Work Phone: Start: 09-07-2020 Comprehensive metabo lic panel Danny Sharma MD Work Phone: Start: 09-07-2020 Ct angiography chest w/contrast/noncontrast Danny Sharma MD Work Phone: Start: 05-26-2020 CT Abdomen and Pelvi s W contrast IV Danny Rebecca Sharma Work Phone: Start: 04-19-2020 Blood count complete auto&auto difrntl wbc Danny Darlingkey-Jobaj Work Phone: Start: 04-19-2020 Comprehensive metabo lic panel Danny Rebecca Darlingkey-Jobaj Work Phone: Start: 04-18-2020 Assay of urea nitrog en quantitative Mirna Nixon Work Phone: Start: 04-18-2020 Creatinine blood Corrinedilma sky Ac Work Phone: Start: 02-29-2020 CT Abdomen and Pelvi s W contrast IV Mirna Nixon Work Phone: Start: 02-08-2020 Comprehensive metabo lic panel Danny A Laskey-Jobkar Work Phone: Start: 01-20-2020 Comprehensive metabo lic panel Danny A Laskey-Jobkar Work Phone: Start: 01-18-2020 Blood count complete auto&auto difrntl wbc Danny A Laskey-Jobkar Work Phone: Start: 01-18-2020 MANUAL DIFFERENTIAL Ozzy in A Laskey-Jobkar Work Phone: Start: 12-30-2019 Comprehensive metabo lic panel Danny Sharma Work Phone: Start: 12-09-2019 OPERATIVE REPORT 3m Sca nning Start: 12-03-2019 Blood count complete automated Darline Bobo Manfred Work Phone: Start: 12-03-2019 Blood typing serolog ic abo Darline R Manfred Work Phone: Start: 12-03-2019 Ecg routine ecg w/le ast 12 lds w/i&r Darline Bobo Manfred Work Phone: Start: 10-26-2019 CT ABDOMEN PELVIS W CONTRAST Danny Sharma Work Phone: H/O: hysterectomy Hx of hysterectomy Dr. Alek Hernandez Work Phone: History of radiation therapy S/P radiation therapy Danny Sharma MD Work Phone: History of radiation therapy S/P radiation therapy Danny Sharma MD Work Phone: History of radiation therapy S/P radiation therapy Danny Sharma MD Work Phone: History of radiation therapy S/P radiation therapy Danny Sharma MD Work Phone: History of radiation therapy S/P radiation therapy Godfrey Preston DO Work Phone: History of radiation therapy S/P radiation therapy Godfrey Preston DO Work Phone: History of radiation therapy S/P radiation therapy Danny Sharma MD Work Phone: History of radiation therapy S/P radiation therapy Godfreymarlon Preston DO Work Phone: History of radiation therapy S/P radiation therapy Danny Sharma MD Work Phone: History of radiation therapy S/P radiation therapy Danny Sharma MD Work Phone: History of radiation therapy S/P radiation therapy Danny Sharma MD Work Phone: History of tonsillectomy Hx of tonsillect ashley Dr. Alek Hernandez Work Phone: Plan of Treatment Date Care Activity Detail Author Start: 09-27-2025 DTaP/Tdap/Td vaccine (2 - Td or Tdap) DTaP/Tdap/Td vaccine (2 - Td or Tdap) [facility] Start: 09-27-2025 DTaP/Tdap/Td vaccine (2 - Td) DTaP/Tdap/Td vaccine (2 - Td) [facility] Start: 09-27-2025 DTaP/Tdap/Td Vaccine s (2 - Td or Tdap) DTaP/Tdap/Td Vaccines (2 - Td or Tdap) [facility] Start: 03-11-2025 Diabetes: Estimated Glomerular Filtration Rate for Kidney Health Diabetes: Estimated Glomerular Filtration Rate for Kidney Health [facility] Start: 03-11-2025 Hemoglobin A1c measurement Diabetes: Hemoglobin A1C [facility] Start: 12-20-2024 Influenza vaccination Influenz a Vaccine (Season Ended) [facility] Start: 10-21-2024 End: 10-21-2024 Patient encounter procedure 10/21/2024 1:00 PM EDT Office Visit [facility] [address] [place] [id number] Alka Cason, THERMAL INTELLIGENCE ANALYST - MEDICAL ASSISTANT SUPERVISOR [address] [place] [address] [facility] Start: 09-09-2024 End: 09-09-2024 Patient encounter procedure 09/09/2024 1:00 PM EDT Office Visit [facility] [address] [place] [id number] Alka Cason, THERMAL INTELLIGENCE ANALYST - MEDICAL ASSISTANT SUPERVISOR [address] [place] [address] [facility] Start: 07-18-2024 [facility] Start: 07-18-2024 [facility] Start: 07-18-2024 Bacteria identified in Urine by Culture Urine Culture [facility] Start: 07-15-2024 End: 07-15-2024 Patient encounter procedure 07/15/2024 1:00 PM EDT Office Visit [facility] [address] [place] [address] Alka Cason, THERMAL INTELLIGENCE ANALYST - MEDICAL ASSISTANT SUPERVISOR [address] [place] [address] [facility] Start: 05-20-2024 End: 05-20-2024 Patient encounter procedure 05/20/2024 2:00 PM EST Office Visit [facility] [address] [place] [address] Alka Cason, THERMAL INTELLIGENCE ANALYST - MEDICAL ASSISTANT SUPERVISOR [address] [place] [address] [facility] Start: 05-04-2024 [facility] Start: 04-08-2024 End: 04-08-2024 Patient encounter procedure 04/08/2024 1:00 PM EST Office Visit [facility] [address] [place] [address] Alka Cason, THERMAL INTELLIGENCE ANALYST - MEDICAL ASSISTANT SUPERVISOR [address] [place] [address] [facility] Start: 03-22-2024 [facility] Start: 03-11-2024 End: 03-11-2025 CBC panel - Blood by Automated count CBC Lab Routine Recurrent carcinoma of endometrium (HCC) Current mild episode of major depressive disorder, unspecified whether recurrent (HCC) Type 2 diabetes mellitus without complication, without long-term current use of insulin (CMS/HCC) (HCC) Expected: 03/11/2024 (Approximate), Expires: 03/11/2025 [facility] Comment on above: Expected: 03/11/2024 (Approximate), Expires: 03/11/2025 Start: 03-11-2024 End: 03-11-2025 Comprehensive metabolic 1998 panel - Serum or Plasma Comprehensive metabolic panel Lab Routine Cancer related pain Current mild episode of major depressive disorder, unspecified whether recurrent (HCC) Expected: 03/11/2024 (Approximate), Expires: 03/11/2025 [facility] Comment on above: Expected: 03/11/2024 (Approximate), Expires: 03/11/2025 Start: 03-11-2024 End: 03-11-2025 Hemoglobin A1c measurement Hemoglobin A1c Lab Routine Recurrent carcinoma of endometrium (HCC) Type 2 diabetes mellitus without complication, without long-term current use of insulin ([facility]/HCC) (HCC) Hyperglycemia Expected: 03/11/2024 (Approximate), Expires: 03/11/2025 [facility] Comment on above: Expected: 03/11/2024 (Approximate), Expires: 03/11/2025 Start: 03-11-2024 End: 03-11-2024 Patient encounter procedure 03/11/2024 11:00 AM EST Office Visit [facility] [address] [place] [address] Alka Cason, THERMAL INTELLIGENCE ANALYST - MEDICAL ASSISTANT SUPERVISOR [address] [place], [place] [id number] [facility] Start: 01-29-2024 End: 01-28-2025 PET+CT Bone from skull base to mid-thigh W 18F-NaF IV PET/CT skull base to mid thigh Imaging Routine Recurrent carcinoma of endometrium (HCC) Expected: 01/29/2024, Expires: 01/28/2025 [facility] Work Phone: Comment on above: Expected: 01/29/2024 , Expires: 01/28/2025 Start: 01-29-2024 End: 01-29-2024 Patient encounter procedure 01/29/2024 11:00 AM EDT Office Visit [facility] [place] [address] [place] [address] Danny Sharma MD [address] [facility] [address] [place], [place] [phone] [facility] [place] Start: 01-01-2024 End: 01-01-2024 Patient encounter procedure 01/01/2024 11:00 AM EDT Office Visit [facility] [address] [place] [address] [place] [phone] Malinda Boone, THERMAL INTELLIGENCE ANALYST - MEDICAL ASSISTANT SUPERVISOR [address] [place] [address] [facility] Start: 12-21-2023 COVID-19 Vaccine ( season) COVID-19 Vaccine ( season) [facility] Start: 12-21-2023 COVID-19 Vaccine ( season) COVID-19 Vaccine ( season) [facility] Start: 12-21-2023 Influenza vaccination [facility] Start: 12-04-2023 End: 12-04-2023 Patient encounter procedure 12/04/2023 11:00 AM EDT Office Visit [facility] [address] [place] [address] [place] [phone] Alka Cason, THERMAL INTELLIGENCE ANALYST - MEDICAL ASSISTANT SUPERVISOR [address] [place] [address] [facility] Start: 10-30-2023 End: 10-29-2024 Drug Monitor Panel 5 Screen, Urine ([facility]) Drug Monitor Panel 5 Screen, Urine ([facility]) Lab Routine 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 Neuropathy Expected: 10/30/2023 (Approximate), Expires: 10/29/2024 [facility] Work Phone: Comment on above: Expected: 10/30/2023 (Approximate), Expires: 10/29/2024 Start: 10-30-2023 End: 10-30-2023 Patient encounter procedure [facility] Start: 10-06-2023 End: 10-06-2023 Admission to same day surgery center [facility] MAIN OR Comment on above: SIMPLE PARTIAL VAGIN ECTOMY [36558 (CPT )] Start: 10-06-2023 End: 10-06-2023 Anesthesia consultation 10/06/2023 11:30 AM EDT Anesthesia Event [facility] MAIN OR [address] [place] [phone] Tia Lara, INFORMATION RESOURCES MANAGER [address] [place] [address] [facility] Start: 10-06-2023 Subsequent hospital visit by physician [facility] OR Start: 10-06-2023 End: 10-06-2023 Vaginectomy partial removal vaginal wall [facility] Operating Room Start: 09-29-2023 End: 09-29-2023 Admission to establishment 09/29/2023 10:00 AM EDT Pre-Admission Testing [facility] Pre-Admit Testing [address] [facility] [place] [phone] [facility] Pre-Admit Testing Start: 09-04-2023 End: 09-04-2023 Patient encounter procedure 09/04/2023 12:25 PM EDT Office Visit [facility] [address] [place] [address] [place] [address] Alka Cason, THERMAL INTELLIGENCE ANALYST - MEDICAL ASSISTANT SUPERVISOR [address] [facility] [address] [place] [address] [facility] Start: 08-20-2023 Diabetes: Estimated Glomerular Filtration Rate for Kidney Health Diabetes: Estimated Glomerular Filtration Rate for Kidney Health [facility] Start: 08-14-2023 End: 08-14-2023 Patient encounter procedure 08/14/2023 10:40 AM EDT Office Visit [facility] [address] [place] [address] Danny Sharma MD [address] [facility] [address] [place] [address] [facility] Start: 05-29-2023 End: 05-29-2023 Patient encounter procedure 05/29/2023 10:40 AM EST Office Visit [facility] [address] [place] [address] Danny Sharma MD [address] [place] [address] [facility] Start: 05-01-2023 End: 05-01-2023 Patient encounter procedure 05/01/2023 3:20 PM EST Office Visit [facility] [address] [place] [address] Danny Sharma MD [address] [place] [address] [facility] Start: 04-17-2023 End: 04-17-2023 Patient encounter procedure 04/17/2023 11:40 AM EST Office Visit [facility] [address] [place] [address] Danny Sharma MD [address] [place] [address] [facility] Start: 04-10-2023 End: 04-10-2023 Patient encounter procedure 04/10/2023 10:00 AM EST Appointment [facility] PET [address] [place] [address] Danny Sharma MD [address] [place] [address] [facility] Start: 03-20-2023 End: 03-20-2023 Patient encounter procedure 03/20/2023 11:00 AM EST Office Visit [facility] [address] [place] [address] Malinda Boone APRN - MEDICAL ASSISTANT SUPERVISOR [address] [place], [place] [phone] [facility] Start: 03-12-2023 End: 03-12-2023 Patient encounter procedure 03/12/2023 11:00 AM EST [facility] [place] [address] Godfrey Preston, DO [address] [place], [place] [phone] [facility] OST[facility] HBO Start: 02-26-2023 End: 02-26-2023 Patient encounter procedure 02/26/2023 1:00 PM EST [facility] [address] [place] [address] Godfrey Preston, DO [address], [place] [id number] 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 OSTOMY HBO Start: 02-05-2023 End: 02-05-2023 Patient encounter procedure 02/05/2023 10:45 AM EDT [facility] [address] [place] [address] Godfrey Preston, DO [address] [facility] [place] [address] [facility] OSTOMY HBO Start: 01-31-2023 Depression Screening Depression Scre ening [facility] Start: 01-16-2023 End: 01-16-2023 Patient encounter procedure [facility] Start: 12-20-2022 COVID-19 Vaccine () COVID-19 Vaccine () [facility] Start: 12-20-2022 Influenza vaccination [facility] Start: 12-12-2022 End: 12-12-2022 Patient encounter procedure 12/12/2022 2:40 PM EDT Office Visit [facility] [address] [place] [address] Danny Sharma MD [address] [facility] [place], [address] [place], [place] [phone] [facility] Start: 12-07-2022 Medicare Annual Wellness (AWV) Medicare Annual Wellness (AWV) [facility] Start: 11-14-2022 End: 11-14-2022 Patient encounter procedure 11/14/2022 10:00 AM EDT Office Visit [facility] [address] [place] [phone] Danny Sharma MD [address] [facility] [place], [address] [place], [place] [phone] [facility] Start: 10-31-2022 End: 10-31-2022 Patient encounter procedure 10/31/2022 10:00 AM EDT Office Visit [facility] [address] [place] [phone] Danny Sharma MD [address], [address] [place], [place] [phone] [facility] Start: 09-12-2022 End: 09-12-2022 Patient encounter procedure 09/12/2022 Office Visit Gynecologic Oncology Danny Sharma MD [address] [facility] [place], [address] [place], [place] [phone] [facility] Start: 09-06-2022 End: 09-06-2022 Patient encounter procedure 09/06/2022 Appointment Radiology [facility] PET Start: 08-19-2022 End: 08-19-2022 Admission to same day surgery center 08/19/2022 Surgery Procedural Danny Sharma MD [address] [facility] [place], [address] [place], [place] [phone] PARTIAL VAGINECTOMY, PARTIAL VULVECTOMY [48359 (CPT )] [facility] MAIN OR Comment on above: PARTIAL VAGINECTOMY, PARTIAL VULVECTOMY [62266 (CPT )] Start: 08-19-2022 Subsequent hospital visit by physician 08/19/2022 Hospital Encounter Procedural Danny Sharma MD [address] [facility] [place], [address] [place] [address] [facility] MAIN OR Start: 08-19-2022 End: 08-19-2022 Vaginectomy partial removal vaginal wall VAGINECTOMY PARTIAL REMOVAL OF VAGINAL WALL Malignant neoplasm of endometrium (HCC) Personal history of irradiation Neoplasm related pain (acute) (chronic) 08/19/2022 8:00 AM EDT [facility] Operating Room Start: 08-19-2022 End: 08-19-2022 Vulvectomy simple partial VULVECTOMY SIMPLE PARTIAL Malignant neoplasm of endometrium (HCC) Personal history of irradiation Neoplasm related pain (acute) (chronic) 08/19/2022 8:00 AM EDT [facility] Operating Room Start: 08-16-2022 End: 08-16-2022 Admission to establishment 08/16/2022 Pre-Admission Testing Pre-Admission Testing [facility] Pre-Admit Testing Start: 08-15-2022 End: 08-16-2023 PET+CT Bone from skull base to mid-thigh W 18F-NaF IV PET/CT skull base to mid thigh Imaging Routine 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) Expected: 08/15/2022, Expires: 08/16/2023 [facility] Work Phone: Comment on above: Expected: 08/15/2022 , Expires: 08/16/2023 Start: 08-15-2022 End: 08-15-2022 Patient encounter procedure 08/15/2022 Office Visit Gynecologic Oncology Danny Sharma MD [address] [place] [address], [address] [place], [place] [phone] [facility] Start: 08-01-2022 Depression Monitoring Depression Mon itoring [facility] Start: 08-01-2022 Depresssion Monitoring Depresssion M onitoring [facility] Start: 07-31-2022 End: 07-31-2022 Patient encounter procedure 07/31/2022 Procedure Visit Urogynecology Carrington Madrigal MD [address] [facility], [address] [place], [place] [phone] [facility] Start: 07-25-2022 Creatinine measurement Creatinine [facility] Start: 07-25-2022 Potassium [Moles/volume] in Serum or Plasma Potassium [facility] Start: 07-10-2022 End: 07-10-2022 Patient encounter procedure 07/10/2022 Office Visit Urogynecology Carrington Madrigal MD [address] [facility], [address] [place], [place] [phone] [facility] Start: 06-27-2022 Creatinine measurement Creatinine mo nitoring [facility] Start: 06-27-2022 Potassium monitoring Potassium monit oring [facility] Start: 06-13-2022 End: 06-13-2022 Patient encounter procedure 06/13/2022 Office Visit Gynecologic Oncology Danny Sharma MD [address] [facility] [place], [address] [place] [address] [facility] DAIRY MANUFACTURING TECHNOLOGIST Oncology Start: 05-30-2022 End: 05-30-2022 Admission to same day surgery center 05/30/2022 Surgery Procedural Danny Sharma MD [address] [facility] [place], [address] [place], [place] [phone] VULVECTOMY SIMPLE PARTIAL [43268 (CPT )] [facility] Comment on above: VULVECTOMY SIMPLE PA RTIAL [21071 (CPT )] Start: 05-30-2022 End: 05-30-2022 Anesthesia consultation 05/30/2022 Anesthesia Event Procedural Tony Pavon, THERMAL INTELLIGENCE ANALYST - MASTER DYER [address] [facility] [address] [place] [address] [facility] [place] Start: 05-30-2022 Subsequent hospital visit by physician 05/30/2022 Hospital Encounter Procedural [facility] Start: 05-30-2022 End: 05-30-2022 Vulvectomy simple partial VULVECTOMY SIMPLE PARTIAL Other specified noninflammatory disorders of vagina Neoplasm related pain (acute) (chronic) Malignant neoplasm of endometrium (HCC) 05/30/2022 1:00 PM EST [facility] OR Start: 05-16-2022 End: 05-16-2023 Tissue exam [facility] Work Phone: Comment on above: Expected: 05/16/2022 (Approximate), Expires: 05/16/2023 Ordered: 05/16/2022 Start: 05-16-2022 End: 05-16-2022 Patient encounter procedure 05/16/2022 Office Visit Gynecologic Oncology Danny Sharma MD [address] [facility] [place], [address] [place] [phone] [facility] DAIRY MANUFACTURING TECHNOLOGIST Oncology Start: 02-28-2022 Creatinine measurement Creatinine mo nitoring [facility] Start: 02-28-2022 Potassium monitoring Potassium monit oring [facility] Start: 01-10-2022 End: 01-10-2022 [facility] DAIRY MANUFACTURING TECHNOLOGIST Oncology Start: 12-27-2021 Creatinine measurement Creatinine mo nitoring [facility] Work Phone: Start: 12-27-2021 Potassium monitoring Pot[facility] monit [facility]ing [facility] Work Phone: Start: 12-20-2021 Influenza vaccination S [facility] Start: 12-20-2021 End: 12-20-2021 Patient encounter procedure 12/20/2021 Appointment Infusion Therapy [facility] [place] Start: 11-29-2021 End: 11-29-2021 Patient encounter procedure [facility] DAIRY MANUFACTURING TECHNOLOGIST Oncology Start: 11-08-2021 End: 11-08-2021 Patient encounter procedure 11/08/2021 Appointment Infusion Therapy [facility] [place] Start: 11-05-2021 End: 11-05-2021 Patient encounter procedure 11/05/2021 Appointment MRI Danny Sharma MD [address] [place], [address] [place] [address] [facility] MRI Start: 10-30-2021 Patient referral [facility] Work Phone: Start: 10-18-2021 End: 10-18-2021 Patient encounter procedure 10/18/2021 Appointment Infusion Therapy [facility] [place] Start: 10-17-2021 Creatinine measurement Creatinine mo nitoring [facility] Work Phone: Start: 10-17-2021 [facility] Start: 10-11-2021 End: 10-11-2021 Patient encounter procedure 10/11/2021 Office Visit Gynecologic Oncology Danny Sharma MD [address] [place], [address] [place] [address] [facility] DAIRY MANUFACTURING TECHNOLOGIST Oncology Start: 09-27-2021 End: 09-27-2021 Patient encounter procedure 09/27/2021 Appointment Infusion Therapy [facility] Start: 09-07-2021 End: 09-07-2021 Patient encounter procedure 09/07/2021 Appointment Radiology Danny Sharma MD [address], [address] [place] [address] [facility] Start: 09-06-2021 End: 09-06-2021 Patient encounter procedure 09/06/2021 Appointment Infusion Therapy [facility] Start: 08-16-2021 End: 08-16-2021 Patient encounter procedure 08/16/2021 Appointment Infusion Therapy [facility] Start: 08-09-2021 End: 08-09-2021 Patient encounter procedure 08/09/2021 Appointment Infusion Therapy [facility] Start: 08-02-2021 End: 08-02-2021 Patient encounter procedure 08/02/2021 Office Visit Gynecologic Oncology Danny Sharma MD [address] [place], [address] [place] [address] [facility] DAIRY MANUFACTURING TECHNOLOGIST Oncology Start: 07-26-2021 End: 07-26-2021 Patient encounter procedure 07/26/2021 Appointment Infusion Therapy [facility] Start: 07-19-2021 End: 07-19-2021 Patient encounter procedure [facility] Start: 07-12-2021 End: 07-12-2021 Patient encounter procedure 07/12/2021 Office Visit Gynecologic Oncology Danny Sharma MD [address] [place], [address] [place] [address] [facility] DAIRY MANUFACTURING TECHNOLOGIST Oncology Start: 06-28-2021 End: 06-28-2021 Patient encounter procedure 06/28/2021 Appointment Infusion Therapy [facility] [place] Start: 06-21-2021 Subsequent hospital visit by physician 06/21/2021 Hospital Encounter Infusion Therapy Canceled (Other) [facility] Comment on above: Canceled (Other) Start: 06-13-2021 End: 06-13-2021 Patient encounter procedure 06/13/2021 Appointment Infusion Therapy [facility] [place] Start: 06-08-2021 End: 06-08-2021 Patient encounter procedure 06/08/2021 Appointment Infusion Therapy [facility] [place] Start: 03-22-2021 End: 03-22-2021 Patient encounter procedure 03/22/2021 Appointment Infusion Therapy [facility] [place] Start: 03-01-2021 End: 03-01-2021 Patient encounter procedure [facility] [place] Start: 02-28-2021 End: 02-28-2021 Patient encounter procedure 02/28/2021 Appointment Infusion Therapy [facility] [place] Start: 02-08-2021 End: 02-08-2021 Patient encounter procedure 02/08/2021 Appointment Infusion Therapy [facility] [place] Start: 02-07-2021 End: 02-07-2021 Patient encounter procedure 02/07/2021 Appointment Infusion Therapy [facility] [place] Start: 01-18-2021 End: 01-18-2021 Patient encounter procedure 01/18/2021 Appointment Infusion Therapy [facility] [place] Start: 01-17-2021 End: 01-17-2021 Patient encounter procedure 01/17/2021 Appointment Infusion Therapy [facility] [place] Start: 12-28-2020 End: 12-28-2020 Patient encounter procedure 12/28/2020 Appointment Infusion Therapy [facility] [place] Start: 12-20-2020 Influenza vaccination [facility] Start: 10-17-2020 End: 10-17-2020 Patient encounter procedure 10/17/2020 Office Visit Gynecologic Oncology Danny Sharma MD [address] [place] [address], [address] [place] [address] [phone] [facility] [place] DAIRY MANUFACTURING TECHNOLOGIST Oncology Start: 10-17-2020 Annual Wellness Visi t (AWV) Annual Wellness Visit (AWV) [facility] Start: 10-08-2020 Pneumococcal 65+ yrs at Risk Vaccine (1 of 2 - PCV13) Pneumococcal 65+ yrs at Risk Vaccine (1 of 2 - PCV13) [facility] Start: 10-08-2020 Pneumococcal Vaccine : 65+ Years (1 - PCV) Pneumococcal Vaccine: 65+ Years (1 - PCV) [facility] Start: 08-14-2020 End: 08-14-2020 Patient encounter procedure 08/14/2020 [facility] Start: 08-10-2020 End: 08-10-2020 [facility] DAIRY MANUFACTURING TECHNOLOGIST Oncology Start: 07-20-2020 End: 07-20-2020 Appointment 07/20/2020 [facility]ment [facility] Start: 07-18-2020 End: 07-18-2020 Office Visit 07/18/2020 Office Visit Gynecologic Oncology Mirna Nixon PA [address] [facility] [address] [place] [phone] [facility] [place] DAIRY MANUFACTURING TECHNOLOGIST Oncology Start: 04-19-2020 End: 04-19-2021 Comprehensive metabolic 2000 panel Comprehensive Metabolic Panel Lab STAT Endometrial cancer (HCC) Expected: 04/19/2020, Expires: 04/19/[facility]21 [facility]: Expected: 04/19/2020 , Expires: 04/19/2021 Start: 04-19-2020 End: 04-19-2020 Appointment 04/19/2020 App[facility]ment [facility] Start: 04-18-2020 End: 04-18-2020 Office Visit 04/18/2020 Office Visit Gynecologic Oncology Danny Sharma MD [address] [facility], [address] [place] [address] [phone] [facility] [place] DAIRY MANUFACTURING TECHNOLOGIST Oncology Start: 03-23-2020 End: 03-23-2020 Appointment 03/23/2020 [facility]ment [facility] Start: 03-21-2020 End: 03-21-2020 Office Visit 03/21/2020 Office Visit Gynecologic Oncology Mirna Nixon PA [address] [facility] [address] [place] [phone] [facility] [place] DAIRY MANUFACTURING TECHNOLOGIST Oncology Start: 03-02-2020 End: 03-02-2020 [facility]ment [facility] Start: 02-10-2020 End: 02-10-2020 [facility] DA[facility]Y MANUFACTURING TECHNOLOGIST Oncology Start: 01-20-2020 End: 01-20-2020 Office Visit [facility] DAIRY MANUFACTURING TECHNOLOGIST Oncology Start: 01-19-2020 End: 01-19-2020 Office Visit 01/19/2020 Office Visit [facility] [place] [facility] Start: 12-28-2019 End: 12-28-2019 Office Visit 12/28/2019 Office Visit Gynecologic Oncology Danny Sharma MD [address] [facility] [place] [place] [address] [facility] DAIRY MANUFACTURING TECHNOLOGIST Oncology Start: 12-21-2019 Influenza vaccination Flu vaccine (# 1) [place] Start: 12-09-2019 End: 12-09-2019 Appointment 12/09/2019 Appointment General Surgery Danny Sharma MD [address] [facility] [place], [place] [id number] [facility] Start: 2015 Hepatitis B Vaccines (1 of 3 - Risk 3-dose series) Hepatitis B Vaccines (1 of 3 - Risk 3-dose series) [facility] Start: 2015 RSV Immunization age d 60 or older (1 - 1-dose 60+ series) RSV Immunization aged 60 or older (1 - 1-dose 60+ series) [facility] Start: 2015 RSV Immunization for Adults (1 - Risk 60-74 years 1-dose series) RSV Immunization for Adults (1 - Risk 60-74 years 1-dose series) [facility] Start: 10-08-2010 Screening for osteoporosis DEXA (modify frequency per FRAX score) [facility] Work Phone: Start: 10-08-2005 Screening for malignant neoplasm of breast Breast cancer screen [place], [place] Start: 10-08-2005 Screening for malignant neoplasm of colon Colon cancer screen colonoscopy [place], [place] Start: 10-08-2005 Shingles Vaccine (1 of 2) Shingles Vaccine (1 of 2) [facility] Start: 10-08-2005 Zoster Vaccines (1 o f 2) Zoster Vaccines (1 of 2) [facility] Start: 1995 Diabetes screen Diabetes screen [place], [place] Start: 1995 Lipid panel Lipid screen Yiss[facility] [place], [place] Start: 1995 Screening for malignant neoplasm of breast Mammogram [facility] Start: 10-08-1974 Pneumococcal Vaccine : 50+ Years (1 of 2 - PCV) Pneumococcal Vaccine: 50+ Years (1 of 2 - PCV) [facility] Start: 10-08-1974 Shingles vaccine (1 of 2) Shingles vaccine (1 of 2) [facility] Start: 10-08-1974 Urine screening for protein Diabetes: Urine Protein Screening [facility] Start: 10-08-1973 Diabetes: Estimated Glomerular Filtration Rate for Kidney Health Diabetes: Estimated Glomerular Filtration Rate for Kidney Health [facility] Start: 10-08-1973 Diabetes: Urine Albumin-Creatinine Ratio for Kidney Health Diabetes: Urine Albumin-Creatinine Ratio for Kidney Health [facility] Start: 10-08-1973 Hepatitis C screening Hepatitis C Sc reening [facility] Start: 1971 COVID-19 Vaccine (1) COVID-19 Vaccin e (1) [facility] Work Phone: Start: 10-08-1970 HIV screening HIV screen Yissel Re[place], [place] Start: 1967 COVID-19 Vaccine (1) COVID-19 Vaccin e (1) [facility] Start: 1967 Depression Monitoring Depression Mon [facility] Start: 1967 Depression Screen Depression Screen [facility] Start: 10-08-1965 Diabetic foot examination Diabetes: Foot Exam [facility] Start: 10-08-1965 Glaucoma screening Diabetes: R etinopathy Screening [facility] Start: 10-08-1965 Preventive dental service Diabetes: Dental Exam [facility] Start: 10-08-1961 Pneumococcal 0-64 years Vaccine (1 of 3 - PCV13) Pneumococcal 0-64 years Vaccine (1 of 3 - PCV13) [place] Start: 10-08-1961 Pneumococcal 0-64 years Vaccine (1 of 4 - PCV13) Pneumococcal 0-64 years Vaccine (1 of 4 - PCV13) [facility] Work Phone: Start: 10-08-1961 Pneumococcal 65+ yea rs Vaccine (1 - PCV) Pneumococcal 65+ years Vaccine (1 - PCV) [facility] Start: 10-08-1961 Pneumococcal Vaccine : 65+ Years (1 - PCV) Pneumococcal Vaccine: 65+ Years (1 - PCV) [facility] Start: 10-08-1961 Pneumococcal Vaccine : 65+ Years (1 of 2 - PCV) Pneumococcal Vaccine: 65+ Years (1 of 2 - PCV) [facility] Start: 04-09-1956 COVID-19 Vaccine (#1) COVID-19 Vacci ne (#1) [facility] Start: 04-09-1956 Examination of skin Derm Melanoma Sk in Check [facility] Start: 1955 Annual Wellness Visi t (AWV) Annual Wellness Visit (AWV) [facility] Start: 1955 Hemoglobin A1c measurement Diabetes: Hemoglobin A1C [facility] Start: 1955 Hepatitis B Vaccines (1 of 3 - 3-dose series) Hepatitis B Vaccines (1 of 3 - 3-dose series) [facility] Start: 1955 Hepatitis C screening Hepatitis C sc reen [place], [place] Start: 1955 Lipid panel Lipid Panel [facility] Start: 1955 Medicare Annual Wellness (AWV) Medicare Annual Wellness (AWV) [facility] Start: 1955 Screening for malignant neoplasm of colon [facility] Start: 1955 Screening for osteoporosis Bone Density Scan [facility] Start: 1955 Statin Therapy Statin Therapy [place], [place] Bacteria identified in Urine by Culture Urine culture Microbiology Routine Postoperative state Urinary urgency Ordered: 06/13/2022 [facility] Comment on above: Ordered: 06/13/2022 End: 12-09-2019 Blood glucose - POCT Blood glucose - POCT Point of Care Testing STAT One Time for 1 Occurrences starting 12/09/2019 until 12/09/[address] [facility] [address] Comment on above: One Time for 1 Occur rences starting 12/09/2019 until 12/09/2019 End: 12-09-2019 Creatinine [Mass/Vol] Creatinine, serum Lab STAT One Time for 1 Occurrences starting 12/09/2019 until 12/09/2019 [place] Comment on above: One Time for 1 Occur rences starting 12/09/2019 until 12/09/2019 Dressing Order: Collagen; (twice a day) Dressing Order: Collagen; (twice a day) Wound Ostomy Routine Ordered: 01/29/2023 [employer] Work Phone: Comment on above: Ordered: 01/29/2023 Dressing Order: Collagen; Daily (Twice daily) Dressing Order: Collagen; Daily (Twice daily) Wound Ostomy Routine Ordered: 02/12/2023 [employer] Work Phone: Comment on above: Ordered: 02/12/2023 Dressing Order: Collagen; Daily; 4x4 gauze Dressing Order: Collagen; Daily; 4x4 gauze Wound Ostomy Routine Ordered: 02/05/2023 [employer] Work Phone: Comment on above: Ordered: 02/05/2023 Dressing Order: Collagen; Daily; 4x4 gauze Dressing Order: Collagen; Daily; 4x4 gauze Wound Ostomy Routine Ordered: 02/26/2023 [employer] Work Phone: Comment on above: Ordered: 02/26/2023 ECG 12 lead ECG 12 lead CV E CG STAT 08/19/2022 7:09 AM EDT [employer] Work Phone: ECG 12 lead ECG 12 lead CV E CG Routine 10/06/2023 12:00 PM EDT [employer] Work Phone: EKG 12 Lead EKG 12 Lead ECG Routine 12/03/2019 4:[address] [facility] [address] End: 12-09-2019 Intermittent pulse oximetry Pulse Oximetry Spot Check Respiratory Care Routine One Time for 1 Occurrences starting 12/09/2019 until 12/09/2019 [facility] [place], [place] Comment on above: One Time for 1 Occur rences starting 12/09/2019 until 12/09/2019 End: 10-11-2021 MRI Pelvis W WO Contrast [employer] Work Phone: Comment on above: 1 Occurrences starti ng 10/11/2021 until 10/11/2021 Once for 1 Occurrenc es starting 10/11/2021 until 10/11/2021 Oxygen therapy [Minimum Data Set] Initiate Oxygen Therapy Protocol Respiratory Care Routine Daily until discontinued starting 12/09/2019 [facility] [place], [place] Comment on above: Daily until disconti nued starting 12/09/2019 Patient Education [facility] Work Phone: Patient referral [facility] Work Phone: End: 12-08-[address] Skull Base To Mid Thigh PET CT Skull Base To Mid Thigh Imaging Routine Recurrent carcinoma of endometrium (HCC) Vaginal lesion Regional lymph node metastasis present (HCC) 1 Occurrences starting 12/08/2020 until 12/08/2020 [facility] Work Phone: Comment on above: 1 Occurrences starti ng 12/08/2020 until 12/08/[address] Skull Base To Mid Thigh PET CT Skull Base To Mid Thigh Imaging Routine Recurrent carcinoma of endometrium (HCC) Vaginal lesion Regional lymph node metastasis present (HCC) 12/08/2020 1:32 PM EDT [facility] Work Phone: Phase I & II - meter ed glucose Phase I & II - metered glucose Point of Care Testing Routine As Needed until discontinued [facility]09[facility]: As Needed until disc ontinued starting 12/09/2019 End: 12-09-2019 Potassium w/ Reflex to Magnesium Potassium w/ Reflex to Magnesium Lab Routine One Time for 1 Occurrences starting 12/09/2019 until 12/09/2019 [facility] on above: One Time for 1 Occur rences starting 12/09/2019 until 12/09/2019 End: 12-09-2019 , urine , urine Lab STAT One Time for 1 Occurrences starting 12/09/2019 until 12/09/2019 [facility] Comment on above: One Time for 1 Occur rences starting 12/09/2019 until 12/09/2019 End: 12-09-2019 Protime-INR Protime-INR Lab STAT One Time for 1 Occurrences starting 12/09/2019 until 12/09/2019 [facility] Comment on above: One Time for 1 Occur rences starting 12/09/2019 until 12/09/2019 Spirometry panel Incentive dorian metry Respiratory Care Routine Q1H PRN until discontinued starting 12/09/2019 [facility] Comment on above: Q1H PRN until discon tinued starting 12/09/2019 End: 12-09-2019 Surgical Pathology Surgical Pathology Lab Routine Once for 1 Occurrences starting 12/09/2019 until 12/09/2019 [place] Comment on above: Once for 1 Occurrenc es starting 12/09/2019 until 12/09/2019 Surgical Pathology Surgical Path ology Lab Routine 12/09/2019 12:45 PM EDT [place] Tissue exam [facility] Work Phone: Comment on above: Release Upon Orderin g for 1 Occurrences starting 08/19/2022 Tissue exam [facility] Work Phone: Comment on above: Release Upon Orderin g for 1 Occurrences starting 10/06/2023 Tissue exam [facility] Work Phone: Comment on above: Release Upon Orderin g for 1 Occurrences starting 05/30/2022 Urinalysis complete panel - Urine [employer] Work Phone: Comment on above: Ordered: 06/13/2022 Urine culture [facility] End: 10-17-2020 Vitamin D 25 Hydroxy Vitamin D 25 Hydroxy Lab Routine Weakness Other specified abnormal findings of blood chemistry Chronic hypertension Body mass index (BMI) 35.0-35.9, adult 1 Occurrences starting 10/17/2020 until 10/17/2020 [employer] Work Phone: Comment on above: 1 Occurrences starti ng 10/17/2020 until 10/17/2020 Vitamin D 25 Hydroxy Vitamin D 2 5 Hydroxy Lab STAT Weakness Other specified abnormal findings of blood chemistry Chronic hypertension Body mass index (BMI) 35.0-35.9, adult 10/17/2020 4:17 PM EDT [facility] Work Phone: Payers Date Payer Category Payer Self-pay [id number] 2020 Medicaid [id number] 2020 Medicaid 2020 Medicare 2020 Medicare [id number]. [id number] 2018 Unknown PARAMOUNT ADVANT AGE PAR[employer] ADVANTAGE xxxxxxxxxxx 2018-Present [phone] [address] [place] [address] xxxxxxxxxxx [id number]. [id number] 2018 Unknown [id number] [id number]. [id number] 1955 Unknown [id number] 2.16.840.1.220925.3.579.2. 1955 Unknown [id number] 2.16.840.1.206015.3.579.2. 1955 Unknown [id number] 2.16.840.1.558415.3.579.2. 1955 Unknown [id number] 2.16.840.1.648842.3.579.2. 8 1955 Unknown [id number] 2.16.840.1.564175.3.579.2. 1955 Unknown [id number] 2.16.840.1.989322.3.579.2. 8 1955 Unknown [id number] 2.16.840.1.821756.3.579.2. 8 1955 Unknown [id number] 2.16.840.1.503317.3.579.2. 8 1955 Unknown [id number] 2.16.840.1.470818.3.579.2. 1955 Unknown [id number] 2.16.840.1.083997.3.579.2. 8 1955 Unknown [id number] 2.16.840.1.955475.3.579.2 1955 Unknown [id number] 2.16.840.1.169792.3.579.2. 668 1955 Unknown [id number] 2.16.840.1.921543.3.579.2. 668 1955 Unknown [id number] 2.16.840.1.763504.3.579.2. 668 1955 Unknown [id number] 2.16.840.1.267929.3.579.2. 668 Private Health Insurance [facility] [id number] Unknown [id number] 2.16.840.1.572132.3.579.2. 462 Unknown [id number] 2.16.840.1.587179.3.579.2. 462 Unknown [id number] 2.16.840.1.293191.3.579.2. 462 Unknown [id number] 2.16.840.1.729274.3.579.2. 462 Unknown [id number] 2.16.840.1.314384.3.579.2. 462 Unknown [id number] 2.16.840.1.526352.3.579.2. 462 Unknown [id number] 2.16.840.1.959309.3.579.2. 462 Unknown [id number] 2.16840.1.632758.3.579.2. 462 Social History Date Type Detail Facility Start: 06-17-2019 End: 10-30-2023 Tobacco smoking status NHIS Former smoker [place], [place] Start: 01-12-1983 End: 01-12-2003 History of tobacco use Current smoker [place], [place] Start: 01-12-1983 End: 01-12-2003 History of tobacco use Cigarette Smoker [place] Start: 06-17-2019 End: 01-31-2022 Cigarettes smoked current (pack per day) - Reported [facility] Start: 06-17-2019 End: 02-13-2023 Alcohol intake Current drinker of alcohol (finding) [place] Start: 01-12-2018 Alcohol Comment Rare; 2 X YEAR [place], [place] Start: 1955 Sex Assigned At Not on file [place], [place] Start: 12-03-2019 End: 10-30-2023 Tobacco use and exposure Never used [place], [place] Start: 04-09-2022 End: 11-14-2022 Exposure to SARS-CoV-2 (event) Not sure [place], [place] Start: 04-16-2021 Tobacco smoking stat us VAIS Unknown if ever smoked [facility] Start: 1955 Sex Assigned At Female W [facility] Start: 05-30-2022 History SDOH IPV Fear 2 [facility] Start: 06-13-2022 Alcohol Comment [facility] Start: 01-31-2022 End: 05-30-2022 Humiliation, Afraid, Rape, and Kick questionnaire [HARK] [facility] Within the last year , have you been afraid of your partner or ex-partner? No [facility] Adolescent depressio n screening assessment 25 [facility] Start: 12-19-2017 Occasional [facility] Start: 12-19-2017 None [facility] Start: 05-06-2014 - [facility] Start: 09-30-2023 End: 07-15-2024 Alcohol intake Ex-drinker (finding) [facility] Start: 11-19-2021 End: 08-10-2024 Sex Female (finding) [facility] Medical Equipment Procedure Code Equipment Code Equipment Origin al Text Equipment Identifier Dates [employer] [id number] Start: 12-18-2020 Mental Status Date Assessment Result Facility 07-18-2024 Cognitive function Level Of Cons ciousness Awake;Alert;Appropriate;Follow s Commands [facility] Work Phone: 05-04-2024 Cognitive function Level Of Cons ciousness Awake;Alert;Appropriate [facility] Work Phone: 03-22-2024 Cognitive function Level Of Cons ciousness Awake;Alert;Appropriate;Follow s Commands [facility] Work Phone: Clinical Notes 08-10-2020 to 10-13-2024 Addendum Note - Ezio Lorenzo - 10/13/2024 11:00 AM EDTAddendum Note - Ezio Lorenzo - 10/13/2024 11:00 AM EDTAddendum Note - Ezio Lorenzo - 10/13/2024 11:00 AM EDT Note Date & Type Note Facility 10-13-2024 Note Addended by: EZIO LORENZO on: 10/13/2024 11:00 AM Modules accepted: Orders [facility] 10-13-2024 Note Addended by: EZIO LORENZO on: 10/13/2024 11:00 AM Modules accepted: Orders [facility] 10-13-2024 Miscellaneous Notes Addended by: EZIO LORENZO on: 10/13/2024 11:00 AM Modules accepted: Orders Patient called back stating she forgot that she also needs Trazadone. No early fills, not yet appropriate for refill . Due for oxycodone to be filled 10/21/24, ativan to be filled on 10/21/24. Confirmed patient Name and : Yes Medication name(s) and dose(s) requested: Oxycodone (Roxicodone) 5 mg ir tablet Lorazepam (ativan) 1 mg tablet Approximate number of pills available in the home: 4 tablets left 0 tablets left Confirmed and updated correct pharmacy: Yes Reminded patient of 3 business day refill policy on all medication refill requests: Yes Notified patient to call pharmacy to confirm prescription ready for pickup and to call office if not available within 3 business days: Yes Date of last appointment: 07/15/24 Date of next appointment: 10/21/24 documented in this encounter [facility] 10-13-2024 Telephone encounter Note Patient called back stating she forgot that she also needs Trazadone. [facility] 10-13-2024 Telephone encounter Note No early fills, not yet appropriate for refill . Due for oxycodone to be filled 10/21/24, ativan to be filled on 10/21/24. [facility] 10-13-2024 Telephone encounter Note Confirmed patient Name and : Yes Medication name(s) and dose(s) requested: Oxycodone (Roxicodone) 5 mg ir tablet Lorazepam (ativan) 1 mg tablet Approximate number of pills available in the home: 4 tablets left 0 tablets left Confirmed and updated correct pharmacy: Yes Reminded patient of 3 business day refill policy on all medication refill requests: Yes Notified patient to call pharmacy to confirm prescription ready for pickup and to call office if not available within 3 business days: Yes Date of last appointment: 07/15/24 Date of next appointment: 10/21/24 [facility] 10-01-2024 Telephone encounter Note Prescription Refill Request Patient Name: Danny Bobo Richard PCP: Donovan Hernandez Past Medical History: Medical History[1] Past Surgical History: Surgical History[2] Allergies: Allergies[3] Problem List: does not have any pertinent problems on file. Current Medication List:Current Medications[4] Telephone call placed to patient. The identity and location of the patient was confirmed and informed consent for treatment through a remote examination was obtained. The patient's diagnosis was confirmed and necessity for prescribed drug was verified. Drug(s) to be refilled: Requested Prescriptions Signed Prescriptions Disp Refills oxyCODONE (Roxicodone) 5 MG immediate release tablet 120 tablet 0 Sig: Take 1-2 tablets (5-10 mg) by mouth every 4 hours as needed for severe pain (7-10) for up to 20 days. Authorizing Provider: ALKA CASON LORazepam (Ativan) 1 MG tablet 60 tablet 0 Sig: Take 1 tablet (1 mg) by mouth every 6 hours as needed for anxiety. Authorizing Provider: ALKA CASON The patient has underlying conditions or contraindications which preclude continuation of the medication at this time: No, Refill provided {Put your decision support here (Optional): [id number]: If the medication(s) being refilled is (are) a controlled substance please verify the following: The person is an active patient of a licensed practitioner who is a colleague of the provider Yes Drugs are being prescribed pursuant to an on-call or cross coverage agreement {Blank single:93700:: Yes, No, N/A OARRS report reviewed: Yes Referrals placed: N/A Follow-Up Care and Testing: No follow-ups on file. 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 Affected short term memory, had to relearn things, locations. [2] Past Surgical History: Procedure Laterality Date CATARACT EXTRACTION Left CATARACT EXTRACTION W/ INTRAOCULAR LENS IMPLANT Right 07/09/2021 SECTION (HISTORICAL) x2. Pfannenstiel incisions. COLONOSCOPY DILATION AND CURETTAGE OF UTERUS 12/19/2017 Dr Brittny [facility] ENDOMETRIAL BIOPSY IR CVC MEDIPORT PLACEMENT OTHER SURGICAL HISTORY 12/09/2019 Robotic Fe-Aortic Biopsy TONSILLECTOMY (HISTORICAL) TOTAL ABDOMINAL HYSTERECTOMY 01/19/2018 Robotic hysterectomy, BSO, right pelvic sentinel LNB, left pelvic lymphadenectomy-[facility] Las[facility] TUBAL LIGATION UPPER GASTROINTESTINAL ENDOSCOPY [3] Allergies Allergen Reactions Morphine Anaphylaxis and Shortness of breath Codeine Rash and Nausea And Vomiting Other reaction(s): Other (See Comments), Upset Stomach [4] Current Outpatient Medications: albuterol 108 (90 Base) MCG/ACT inhaler, Inhale 90 each if needed., Disp: , Rfl: aspirin 81 MG chewable tablet, Chew 81 mg daily., Disp: , Rfl: bisacodyl (Dulcolax) 5 MG EC tablet, Take 10 mg by mouth if needed., Disp: , Rfl: brimonidine (AlphaGAN P) 0.2 % ophthalmic solution, Administer 1 drop into both eyes Nightly., Disp: , Rfl: calcium carbonate (Os-Papito) 1250 (500 Ca) MG chewable tablet, Chew 1 tablet if needed., Disp: , Rfl: cholecalciferol (Vitamin D-3) 50 MCG (2000 UT) capsule, Take 1 capsule (50 mcg) by mouth in the morning., Disp: 30 capsule, Rfl: 2 dicyclomine (Bentyl) 10 MG capsule, Take 10 mg by mouth if needed., Disp: , Rfl: gabapentin (Neurontin) 300 MG capsule, Take 1 capsule (300 mg) by mouth 2 times daily., Disp: 60 capsule, Rfl: 0 ketorolac (Acular) 0.5 % ophthalmic solution, , Disp: , Rfl: latanoprost (Xalatan) 0.005 % ophthalmic solution, Administer 1 drop into both eyes Nightly., Disp: , Rfl: LORazepam (Ativan) 1 MG tablet, Take 1 tablet (1 mg) by mouth every 8 hours as needed for anxiety for up to 20 days., Disp: 60 tablet, Rfl: 0 LORazepam (Ativan) 1 MG tablet, Take 1 tablet (1 mg) by mouth every 6 hours as needed for anxiety., Disp: 60 tablet, Rfl: 0 metFORMIN XR (Glucophage-XR) 500 MG 24 hr tablet, Take 1,000 mg by mouth in the morning and 1,000 mg in the evening., Disp: , Rfl: Misc. Devices (Sitz Bath) misc, Use for pain relief as needed, Disp: 1 each, Rfl: 0 Misc. Devices (Collins Bottle/Plastic 120mL) misc, Use to clean area as needed, Disp: 1 each, Rfl: 0 naloxone (Narcan) 4 mg/0.1 mL nasal spray, Administer 4 mg into affected nostril(s) if needed., Disp: , Rfl: ofloxacin (Ocuflox) 0.3 % ophthalmic solution, , Disp: , Rfl: omeprazole (PriLOSEC) [address] capsule, Take 1 capsule (40 mg) by mouth every morning (before breakfast). Do not crush or chew., Disp: 30 capsule, Rfl: 11 ondansetron (Zofran) 8 MG tablet, Take 8 mg by mouth if needed., Disp: , Rfl: oxyCODONE (Roxicodone) 5 MG immediate release tablet, Take 1-2 tablets (5-10 mg) by mouth every 4 hours as needed for severe pain (7-10) for up to 20 days., Disp: 120 tablet, Rfl: 0 pantoprazole (ProtoNix) 40 MG EC tablet, Take 40 mg by mouth if needed., Disp: , Rfl: prednisoLONE acetate (Pred-Forte) 1 % ophthalmic suspension, , Disp: , Rfl: prochlorperazine (Compazine) 10 MG tablet, Take 1 tablet (10 mg) by mouth every 8 hours as needed for nausea or vomiting., Disp: 60 tablet, Rfl: 3 sennosides (Senokot) 8.6 MG tablet, Take 8.6 mg by mouth in the morning and 8.6 mg in the evening., Disp: , Rfl: sucralfate (Carafate) 1 GM/10ML suspension, Take 1 g by mouth if needed., Disp: , Rfl: traZODone (Desyrel) 100 MG tablet, Take 1 tablet (100 mg) by mouth Nightly., Disp: 30 tablet, Rfl: 0 Trelegy Ellipta 200-62.5-25 MCG/ACT aerosol powder , , Disp: , Rfl: T [facility] 10-01-2024 Miscellaneous Notes Prescription Refill Request Patient Name: Danny Pink PCP: Donovan Hernandez Past Medical History: Medical History[1] Past Surgical History: Surgical History[2] Allergies: Allergies[3] Problem List: does not have any pertinent problems on file. Current Medication List:Current Medications[4] Telephone call placed to patient. The identity and location of the patient was confirmed and informed consent for treatment through a remote examination was obtained. The patient's diagnosis was confirmed and necessity for prescribed drug was verified. Drug(s) to be refilled: Requested Prescriptions Signed Prescriptions Disp Refills oxyCODONE (Roxicodone) 5 MG immediate release tablet 120 tablet 0 Sig: Take 1-2 tablets (5-10 mg) by mouth every 4 hours as needed for severe pain (7-10) for up to 20 days. Authorizing Provider: ALKA CASON LORazepam (Ativan) 1 MG tablet 60 tablet 0 Sig: Take 1 tablet (1 mg) by mouth every 6 hours as needed for anxiety. Authorizing Provider: ALKA CASON The patient has underlying conditions or contraindications which preclude continuation of the medication at this time: No, Refill provided {Put your decision support here (Optional): [id number]: If the medication(s) being refilled is (are) a controlled substance please verify the following: The person is an active patient of a licensed practitioner who is a colleague of the provider Yes Drugs are being prescribed pursuant to an on-call or cross coverage agreement {Blank single:06347:: Yes, No, N/A OARRS report reviewed: Yes Referrals placed: N/A Follow-Up Care and Testing: No follow-ups on file. 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 Affected short term memory, had to relearn things, locations. [2] Past Surgical History: Procedure Laterality Date CATARACT EXTRACTION Left CATARACT EXTRACTION W/ INTRAOCULAR LENS IMPLANT Right 07/09/2021 SECTION (HISTORICAL) x2. Pfannenstiel incisions. COLONOSCOPY DILATION AND CURETTAGE OF UTERUS 12/19/2017 Dr Brittny Gan[facility] ENDOMETRIAL BIOPSY IR CVC MEDIPORT PLACEMENT OTHER SURGICAL HISTORY 12/09/2019 Robotic Fe-Aortic Biopsy TONSILLECTOMY (HISTORICAL) TOTAL ABDOMINAL HYSTERECTOMY 01/19/2018 Robotic hysterectomy, BSO, right pelvic sentinel LNB, left pelvic lymphadenectomy-Dr. Khang Tapia [facility] TUBAL LIGATION UPPER GASTROINTESTINAL ENDOSCOPY [3] Allergies Allergen Reactions Morphine Anaphylaxis and Shortness of breath Codeine Rash and Nausea And Vomiting Other reaction(s): Other (See Comments), Upset Stomach [4] Current Outpatient Medications: albuterol 108 (90 Base) MCG/ACT inhaler, Inhale 90 each if needed., Disp: , Rfl: aspirin 81 MG chewable tablet, Chew 81 mg daily., Disp: , Rfl: bisacodyl (Dulcolax) 5 MG EC tablet, Take 10 mg by mouth if needed., Disp: , Rfl: brimonidine (AlphaGAN P) 0.2 % ophthalmic solution, Administer 1 drop into both eyes Nightly., Disp: , Rfl: calcium carbonate (Os-Papito) 1250 (500 Ca) MG chewable tablet, Chew 1 tablet if needed., Disp: , Rfl: cholecalciferol (Vitamin D-3) 50 MCG (2000 UT) capsule, Take 1 capsule (50 mcg) by mouth in the morning., Disp: 30 capsule, Rfl: 2 dicyclomine (Bentyl) 10 MG capsule, Take 10 mg by mouth if needed., Disp: , Rfl: gabapentin (Neurontin) 300 MG capsule, Take 1 capsule (300 mg) by mouth 2 times daily., Disp: 60 capsule, Rfl: 0 ketorolac (Acular) 0.5 % ophthalmic solution, , Disp: , Rfl: latanoprost (Xalatan) 0.005 % ophthalmic solution, Administer 1 drop into both eyes Nightly., Disp: , Rfl: LORazepam (Ativan) 1 MG tablet, Take 1 tablet (1 mg) by mouth every 8 hours as needed for anxiety for up to 20 days., Disp: 60 tablet, Rfl: 0 LORazepam (Ativan) 1 MG tablet, Take 1 tablet (1 mg) by mouth every 6 hours as needed for anxiety., Disp: 60 tablet, Rfl: 0 metFORMIN XR (Glucophage-XR) 500 MG 24 hr tablet, Take 1,000 mg by mouth in the morning and 1,000 mg in the evening., Disp: , Rfl: Misc. Devices (Sitz Bath) misc, Use for pain relief as needed, Disp: 1 each, Rfl: 0 Misc. Devices (Collins Bottle/Plastic 120mL) misc, Use to clean area as needed, Disp: 1 each, Rfl: 0 naloxone (Narcan) 4 mg/0.1 mL nasal spray, Administer 4 mg into affected nostril(s) if needed., Disp: , Rfl: ofloxacin (Ocuflox) 0.3 % ophthalmic solution, , Disp: , Rfl: omeprazole (PriLOSEC) [address] capsule, Take 1 capsule (40 mg) by mouth every morning (before breakfast). Do not crush or chew., Disp: 30 capsule, Rfl: 11 ondansetron (Zofran) 8 MG tablet, Take 8 mg by mouth if needed., Disp: , Rfl: oxyCODONE (Roxicodone) 5 MG immediate release tablet, Take 1-2 tablets (5-10 mg) by mouth every 4 hours as needed for severe pain (7-10) for up to 20 days., Disp: 120 tablet, Rfl: 0 pantoprazole (ProtoNix) 40 MG EC tablet, Take 40 mg by mouth if needed., Disp: , Rfl: prednisoLONE acetate (Pred-Forte) 1 % ophthalmic suspension, , Disp: , Rfl: prochlorperazine (Compazine) 10 MG tablet, Take 1 tablet (10 mg) by mouth every 8 hours as needed for nausea or vomiting., Disp: 60 tablet, Rfl: 3 sennosides (Senokot) 8.6 MG tablet, Take 8.6 mg by mouth in the morning and 8.6 mg in the evening., Disp: , Rfl: sucralfate (Carafate) 1 GM/10ML suspension, Take 1 g by mouth if needed., Disp: , Rfl: traZODone (Desyrel) 100 MG tablet, Take 1 tablet (100 mg) by mouth Nightly., Disp: 30 tablet, Rfl: 0 Trelegy Ellipta 200-62.5-25 MCG/ACT aerosol powder , , Disp: , Rfl: Confirmed patient Name and : Yes Medication name(s) and dose(s) requested: Lorazepam (Ativan) 1 MG Tablets Oxycodone (roxicodone) 5 MG IR Tablets Approximate number of pills available in the home: Oxycodone- 2 Left Ativan- None Left Confirmed and updated correct pharmacy: Yes Reminded patient of 3 business day refill policy on all medication refill requests: Yes Notified patient to call pharmacy to confirm prescription ready for pickup and to call office if not available within 3 business days: Yes Date of last appointment: 07/15/24 Date of next appointment: 10/21/24 documented in this encounter [facility] 10-01-2024 Telephone encounter Note Confirmed patient Name and : Yes Medication name(s) and dose(s) requested: Lorazepam (Ativan) 1 MG Tablets Oxycodone (roxicodone) 5 MG IR Tablets Approximate number of pills available in the home: Oxycodone- 2 Left Ativan- None Left Confirmed and updated correct pharmacy: Yes Reminded patient of 3 business day refill policy on all medication refill requests: Yes Notified patient to call pharmacy to confirm prescription ready for pickup and to call office if not available within 3 business days: Yes Date of last appointment: 07/15/24 Date of next appointment: 10/21/24 [facility] 09-14-2024 Telephone encounter Note Confirmed patient Name and : Yes Medication name(s) and dose(s) requested: Trazodone (Desyrel) 100 MG Tablets Approximate number of pills available in the home: None Left Confirmed and updated correct pharmacy: Yes Reminded patient of 3 business day refill policy on all medication refill requests: Yes Notified patient to call pharmacy to confirm prescription ready for pickup and to call office if not available within 3 business days: Yes Date of last appointment: 07/15/24 Date of next appointment: 10/21/24 [facility] 09-14-2024 Miscellaneous Notes Confirmed patient Name and : Yes Medication name(s) and dose(s) requested: Trazodone (Desyrel) 100 MG Tablets Approximate number of pills available in the home: None Left Confirmed and updated correct pharmacy: Yes Reminded patient of 3 business day refill policy on all medication refill requests: Yes Notified patient to call pharmacy to confirm prescription ready for pickup and to call office if not available within 3 business days: Yes Date of last appointment: 07/15/24 Date of next appointment: 10/21/24 documented in this encounter [facility] 09-06-2024 Note Addended by: ALKA CASON on: 09/06/2024 02:01 PM Modules accepted: Orders [facility] 09-06-2024 Miscellaneous Notes Addended by: ALKA CASON on: 09/06/2024 02:01 PM Modules accepted: Orders Prescription Refill Request Patient Name: Danny Jeramie Richard PCP: Donovan Hernandez Past Medical History: Medical History[1] Past Surgical History: Surgical History[2] Allergies: Allergies[3] Problem List: does not have any pertinent problems on file. Current Medication List:Current Medications[4] Telephone call placed to patient. The identity and location of the patient was confirmed and informed consent for treatment through a remote examination was obtained. The patient's diagnosis was confirmed and necessity for prescribed drug was verified. Drug(s) to be refilled: Requested Prescriptions No prescriptions requested or ordered in this encounter The patient has underlying conditions or contraindications which preclude continuation of the medication at this time: No, Refill provided {Put your decision support here (Optional): [id number]: If the medication(s) being refilled is (are) a controlled substance please verify the following: The person is an active patient of a licensed practitioner who is a colleague of the provider Yes Drugs are being prescribed pursuant to an on-call or cross coverage agreement {Blank single:79186:: Yes, No, N/A OARRS report reviewed: Yes Referrals placed: N/A Follow-Up Care and Testing: No follow-ups on file. 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 Affected short term memory, had to relearn things, locations. [2] Past Surgical History: Procedure Laterality Date CATARACT EXTRACTION Left CATARACT EXTRACTION W/ INTRAOCULAR LENS IMPLANT Right 07/09/2021 SECTION (HISTORICAL) x2. Pfannenstiel incisions. COLONOSCOPY DILATION AND CURETTAGE OF UTERUS 12/19/2017 Dr Brittny Gan[facility] ENDOMETRIAL BIOPSY IR CVC MEDIPORT PLACEMENT OTHER SURGICAL HISTORY 12/09/2019 Robotic Fe-Aortic Biopsy TONSILLECTOMY (HISTORICAL) TOTAL ABDOMINAL HYSTERECTOMY 01/19/2018 Robotic hysterectomy, BSO, right pelvic sentinel LNB, left pelvic lymphadenectomy-Dr. Khang Tapia [facility] TUBAL LIGATION UPPER GASTROINTESTINAL ENDOSCOPY [3] Allergies Allergen Reactions Morphine Anaphylaxis and Shortness of breath Codeine Rash and Nausea And Vomiting Other reaction(s): Other (See Comments), Upset Stomach [4] Current Outpatient Medications: albuterol 108 (90 Base) MCG/ACT inhaler, Inhale 90 each if needed., Disp: , Rfl: aspirin 81 MG chewable tablet, Chew 81 mg daily., Disp: , Rfl: bisacodyl (Dulcolax) 5 MG EC tablet, Take 10 mg by mouth if needed., Disp: , Rfl: brimonidine (AlphaGAN P) 0.2 % ophthalmic solution, Administer 1 drop into both eyes Nightly., Disp: , Rfl: calcium carbonate (Os-Papito) 1250 (500 Ca) MG chewable tablet, Chew 1 tablet if needed., Disp: , Rfl: cholecalciferol (Vitamin D-3) 50 MCG (2000 UT) capsule, Take 1 capsule (50 mcg) by mouth in the morning., Disp: 30 capsule, Rfl: 2 dicyclomine (Bentyl) 10 MG capsule, Take 10 mg by mouth if needed., Disp: , Rfl: gabapentin (Neurontin) 300 MG capsule, Take 1 capsule (300 mg) by mouth 2 times daily., Disp: 60 capsule, Rfl: 0 ketorolac (Acular) 0.5 % ophthalmic solution, , Disp: , Rfl: latanoprost (Xalatan) 0.005 % ophthalmic solution, Administer 1 drop into both eyes Nightly., Disp: , Rfl: LORazepam (Ativan) 1 MG tablet, Take 1 tablet (1 mg) by mouth every 8 hours as needed for anxiety for up to 20 days., Disp: 60 tablet, Rfl: 0 LORazepam (Ativan) 1 MG tablet, Take 1 tablet (1 mg) by mouth every 6 hours as needed for anxiety., Disp: 60 tablet, Rfl: 0 metFORMIN XR (Glucophage-XR) 500 MG 24 hr tablet, Take 1,000 mg by mouth in the morning and 1,000 mg in the evening., Disp: , Rfl: Misc. Devices (Sitz Bath) misc, Use for pain relief as needed, Disp: 1 each, Rfl: 0 Misc. Devices (Collins Bottle/Plastic 120mL) misc, Use to clean area as needed, Disp: 1 each, Rfl: 0 naloxone (Narcan) 4 mg/0.1 mL nasal spray, Administer 4 mg into affected nostril(s) if needed., Disp: , Rfl: ofloxacin (Ocuflox) 0.3 % ophthalmic solution, , Disp: , Rfl: omeprazole (PriLOSEC) [address] capsule, Take 1 capsule (40 mg) by mouth every morning (before breakfast). Do not crush or chew., Disp: 30 capsule, Rfl: 11 ondansetron (Zofran) 8 MG tablet, Take 8 mg by mouth if needed., Disp: , Rfl: oxyCODONE (Roxicodone) 5 MG immediate release tablet, Take 1-2 tablets (5-10 mg) by mouth every 4 hours as needed for severe pain (7-10) for up to 20 days., Disp: 120 tablet, Rfl: 0 pantoprazole (ProtoNix) 40 MG EC tablet, Take 40 mg by mouth if needed., Disp: , Rfl: prednisoLONE acetate (Pred-Forte) 1 % ophthalmic suspension, , Disp: , Rfl: prochlorperazine (Compazine) 10 MG tablet, Take 1 tablet (10 mg) by mouth every 8 hours as needed for nausea or vomiting., Disp: 60 tablet, Rfl: 3 sennosides (Senokot) 8.6 MG tablet, Take 8.6 mg by mouth in the morning and 8.6 mg in the evening., Disp: , Rfl: sucralfate (Carafate) 1 GM/10ML suspension, Take 1 g by mouth if needed., Disp: , Rfl: traZODone (Desyrel) 100 MG tablet, Take 1 tablet (100 mg) by mouth Nightly., Disp: 30 tablet, Rfl: 0 Trelegy Ellipta 200-62.5-25 MCG/ACT aerosol powder , , Disp: , Rfl: Confirmed patient Name and : Yes Medication name(s) and dose(s) requested: Lorazepam (Ativan) 1 m tablet Oxycodone (Roxicodone) 5 mg ir tablet Approximate number of pills available in the home: 2 tablets left 0 tablets left Confirmed and updated correct pharmacy: Yes Reminded patient of 3 business day refill policy on all medication refill requests: Yes Notified patient to call pharmacy to confirm prescription ready for pickup and to call office if not available within 3 business days: Yes Date of last appointment: 07/15/24 Date of next appointment: 09/09/24 Reminded pt up upcoming f/up date and time. documented in this encounter [facility] 09-06-2024 Telephone encounter Note Prescription Refill Request Patient Name: Danny Pink PCP: Donovan Hernandez Past Medical History: Medical History[1] Past Surgical History: Surgical History[2] Allergies: Allergies[3] Problem List: does not have any pertinent problems on file. Current Medication List:Current Medications[4] Telephone call placed to patient. The identity and location of the patient was confirmed and informed consent for treatment through a remote examination was obtained. The patient's diagnosis was confirmed and necessity for prescribed drug was verified. Drug(s) to be refilled: Requested Prescriptions No prescriptions requested or ordered in this encounter The patient has underlying conditions or contraindications which preclude continuation of the medication at this time: No, Refill provided {Put your decision support here (Optional): [id number]: If the medication(s) being refilled is (are) a controlled substance please verify the following: The person is an active patient of a licensed practitioner who is a colleague of the provider Yes Drugs are being prescribed pursuant to an on-call or cross coverage agreement {Blank single:17092:: Yes, No, N/A OARRS report reviewed: Yes Referrals placed: N/A Follow-Up Care and Testing: No follow-ups on file. 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 Affected short term memory, had to relearn things, locations. [2] Past Surgical History: Procedure Laterality Date CATARACT EXTRACTION Left CATARACT EXTRACTION W/ INTRAOCULAR LENS IMPLANT Right 07/09/2021 SECTION (HISTORICAL) x2. Pfannenstiel incisions. COLONOSCOPY DILATION AND [facility] MEDIP[facility] PLAC[facility] OTHER SURGICAL HISTORY 12/09/2019 Robotic Fe-Aortic Biopsy TONSILLECTOMY (HISTORICAL) TOTAL ABDOMINAL HYSTERECTOMY 01/19/2018 Robotic hysterectomy, BSO, right pelvic sentinel LNB, left pelvic lymphadenectomy-Dr. Khang Tapia [facility] TUBAL LIGATION UPPER GASTROINTESTINAL ENDOSCOPY [3] Allergies Allergen Reactions Morphine Anaphylaxis and Shortness of breath Codeine Rash and Nausea And Vomiting Other reaction(s): Other (See Comments), Upset Stomach [4] Current Outpatient Medications: albuterol 108 (90 Base) MCG/ACT inhaler, Inhale 90 each if needed., Disp: , Rfl: aspirin 81 MG chewable tablet, Chew 81 mg daily., Disp: , Rfl: bisacodyl (Dulcolax) 5 MG EC tablet, Take 10 mg by mouth if needed., Disp: , Rfl: brimonidine (AlphaGAN P) 0.2 % ophthalmic solution, Administer 1 drop into both eyes Nightly., Disp: , Rfl: calcium carbonate (Os-Papito) 1250 (500 Ca) MG chewable tablet, Chew 1 tablet if needed., Disp: , Rfl: cholecalciferol (Vitamin D-3) 50 MCG (2000 UT) capsule, Take 1 capsule (50 mcg) by mouth in the morning., Disp: 30 capsule, Rfl: 2 dicyclomine (Bentyl) 10 MG capsule, Take 10 mg by mouth if needed., Disp: , Rfl: gabapentin (Neurontin) 300 MG capsule, Take 1 capsule (300 mg) by mouth 2 times daily., Disp: 60 capsule, Rfl: 0 ketorolac (Acular) 0.5 % ophthalmic solution, , Disp: , Rfl: latanoprost (Xalatan) 0.005 % ophthalmic solution, Administer 1 drop into both eyes Nightly., Disp: , Rfl: LORazepam (Ativan) 1 MG tablet, Take 1 tablet (1 mg) by mouth every 8 hours as needed for anxiety for up to 20 days., Disp: 60 tablet, Rfl: 0 LORazepam (Ativan) 1 MG tablet, Take 1 tablet (1 mg) by mouth every 6 hours as needed for anxiety., Disp: 60 tablet, Rfl: 0 metFORMIN XR (Glucophage-XR) 500 MG 24 hr tablet, Take 1,000 mg by mouth in the morning and 1,000 mg in the evening., Disp: , Rfl: Misc. Devices (Sitz Bath) misc, Use for pain relief as needed, Disp: 1 each, Rfl: 0 Misc. Devices (Collins Bottle/Plastic 120mL) misc, Use to clean area as needed, Disp: 1 each, Rfl: 0 naloxone (Narcan) 4 mg/0.1 mL nasal spray, Administer 4 mg into affected nostril(s) if needed., Disp: , Rfl: ofloxacin (Ocuflox) 0.3 % ophthalmic solution, , Disp: , Rfl: omeprazole (PriLOSEC) [address] capsule, Take 1 capsule (40 mg) by mouth every morning (before breakfast). Do not crush or chew., Disp: 30 capsule, Rfl: 11 ondansetron (Zofran) 8 MG tablet, Take 8 mg by mouth if needed., Disp: , Rfl: oxyCODONE (Roxicodone) 5 MG immediate release tablet, Take 1-2 tablets (5-10 mg) by mouth every 4 hours as needed for severe pain (7-10) for up to 20 days., Disp: 120 tablet, Rfl: 0 pantoprazole (ProtoNix) 40 MG EC tablet, Take 40 mg by mouth if needed., Disp: , Rfl: prednisoLONE acetate (Pred-Forte) 1 % ophthalmic suspension, , Disp: , Rfl: prochlorperazine (Compazine) 10 MG tablet, Take 1 tablet (10 mg) by mouth every 8 hours as needed for nausea or vomiting., Disp: 60 tablet, Rfl: 3 sennosides (Senokot) 8.6 MG tablet, Take 8.6 mg by mouth in the morning and 8.6 mg in the evening., Disp: , Rfl: sucralfate (Carafate) 1 GM/10ML suspension, Take 1 g by mouth if needed., Disp: , Rfl: traZODone (Desyrel) 100 MG tablet, Take 1 tablet (100 mg) by mouth Nightly., Disp: 30 tablet, Rfl: 0 Trelegy Ellipta 200-62.5-25 MCG/ACT aerosol powder , , Disp: , Rfl: [facility] 09-06-2024 Telephone encounter Note Confirmed patient Name and : Yes Medication name(s) and dose(s) requested: Lorazepam (Ativan) 1 m tablet Oxycodone (Roxicodone) 5 mg ir tablet Approximate number of pills available in the home: 2 tablets left 0 tablets left Confirmed and updated correct pharmacy: Yes Reminded patient of 3 business day refill policy on all medication refill requests: Yes Notified patient to call pharmacy to confirm prescription ready for pickup and to call office if not available within 3 business days: Yes Date of last appointment: 07/15/24 Date of next appointment: 09/09/24 Reminded pt up upcoming f/up date and time. [facility] 08-26-2024 Telephone encounter Note Chart reviewed. OARRS reviewed. Refill appropriate. E-prescription sent to default pharmacy. [facility] 08-26-2024 Miscellaneous Notes Chart reviewed. OARRS reviewed. Refill appropriate. E-prescription sent to default pharmacy. Confirmed patient Name and : Yes Medication name(s) and dose(s) requested: Lorazepam (Ativan) 1 MG Tablets Approximate number of pills available in the home: None Left Confirmed and updated correct pharmacy: Yes Reminded patient of 3 business day refill policy on all medication refill requests: Yes Notified patient to call pharmacy to confirm prescription ready for pickup and to call office if not available within 3 business days: Yes Date of last appointment: 07/15/24 Date of next appointment: 09/09/24 documented in this encounter [facility] 08-26-2024 Telephone encounter Note Confirmed patient Name and : Yes Medication name(s) and dose(s) requested: Lorazepam (Ativan) 1 MG Tablets Approximate number of pills available in the home: None Left Confirmed and updated correct pharmacy: Yes Reminded patient of 3 business day refill policy on all medication refill requests: Yes Notified patient to call pharmacy to confirm prescription ready for pickup and to call office if not available within 3 business days: Yes Date of last appointment: 07/15/24 Date of next appointment: 09/09/24 [facility] 08-17-2024 Telephone encounter Note Confirmed patient Name and : Yes Medication name(s) and dose(s) requested: Oxycodone (Roxicodone) 5 MG IR Tablets Trazodone (Desyrel) 100 MG Tablets Approximate number of pills available in the home: Oxycodone- 1 Tablet Left Trazodone- None Left Confirmed and updated correct pharmacy: Yes Reminded patient of 3 business day refill policy on all medication refill requests: Yes Notified patient to call pharmacy to confirm prescription ready for pickup and to call office if not available within 3 business days: Yes Date of last appointment: 07/15/24 Date of next appointment: 09/09/24 [facility] 08-17-2024 Miscellaneous Notes Confirmed patient Name and : Yes Medication name(s) and dose(s) requested: Oxycodone (Roxicodone) 5 MG IR Tablets Trazodone (Desyrel) 100 MG Tablets Approximate number of pills available in the home: Oxycodone- 1 Tablet Left Trazodone- None Left Confirmed and updated correct pharmacy: Yes Reminded patient of 3 business day refill policy on all medication refill requests: Yes Notified patient to call pharmacy to confirm prescription ready for pickup and to call office if not available within 3 business days: Yes Date of last appointment: 07/15/24 Date of next appointment: 09/09/24 documented in this encounter [facility] 08-09-2024 Telephone encounter Note Reviewed oajose., eprescribed refill of ativan [facility] 08-09-2024 Miscellaneous Notes Reviewed oaars., eprescribed refill of ativan Confirmed patient Name and : Yes Medication name(s) and dose(s) requested: Lorazepam (Ativan) 1 MG Tablet Approximate number of pills available in the home: 1 Tablet Left Confirmed and updated correct pharmacy: Yes Reminded patient of 3 business day refill policy on all medication refill requests: Yes Notified patient to call pharmacy to confirm prescription ready for pickup and to call office if not available within 3 business days: Yes Date of last appointment: 07/15/24 Date of next appointment: 09/09/24 documented in this encounter [facility] 08-09-2024 Telephone encounter Note Confirmed patient Name and : Yes Medication name(s) and dose(s) requested: Lorazepam (Ativan) 1 MG Tablet Approximate number of pills available in the home: 1 Tablet Left Confirmed and updated correct pharmacy: Yes Reminded patient of 3 business day refill policy on all medication refill requests: Yes Notified patient to call pharmacy to confirm prescription ready for pickup and to call office if not available within 3 business days: Yes Date of last appointment: 07/15/24 Date of next appointment: 09/09/24 [facility] 07-28-2024 Miscellaneous Notes Received referral from Alka Cason palliative care provider to connect with patient regarding resources and support. Second attempt to reach out to patient by phone. No answer. Left voicemail requesting return call. documented in this encounter [facility] 07-28-2024 Note Received referral fr isac Cason palliative care provider to connect with patient regarding resources and support. Second attempt to reach out to patient by phone. No answer. Left voicemail requesting return call. [facility] 07-28-2024 Telephone encounter Note Received referral from Alka Cason palliative care provider to connect with patient regarding resources and support. Second attempt to reach out to patient by phone. No answer. Left voicemail requesting return call. [facility] 07-20-2024 Note Received referral fr om Alka Regulo, palliative care provider to connect with patient regarding resources and support. Reached out to patient on this date by phone. No answer. Left voicemail requesting return call. [facility] 07-20-2024 Telephone encounter Note Received referral from Alka Cason, palliative care provider to connect with patient regarding resources and support. Reached out to patient on this date by phone. No answer. Left voicemail requesting return call. [facility] 07-20-2024 Miscellaneous Notes Received referral from Alka Cason palliative care provider to connect with patient regarding resources and support. Reached out to patient on this date by phone. No answer. Left voicemail requesting return call. documented in this encounter [facility] 07-19-2024 Telephone encounter Note All script sent over on 07/15/24 [facility] [facility] Miscellaneous Notes All script sent over on 07/15/24 Patient called in stating that she thought that she forgot to order her Trazodone refill. I let her know that it is on the request from Friday and I will let the provider know that she still needs this medication. Duplicate Confirmed patient Name and : Yes Medication name(s) and dose(s) requested: Lorazepam (Ativan) 1 MG Tablet Oxycodone (Roxicodone) 5 MG IR Tablets Prochlorperazine (Compazine) 10 MG Tablets Trazodone (Desyrel) 100 MG Tablets Approximate number of pills available in the home: Trazodone- None Left Compazine- 2 Tablets Left Ativan- None Left Oxycodone- 1 Tablet Left Confirmed and updated correct pharmacy: Yes Reminded patient of 3 business day refill policy on all medication refill requests: Yes Notified patient to call pharmacy to confirm prescription ready for pickup and to call office if not available within 3 business days: Yes Date of last appointment: 05/20/24 Date of next appointment: 07/15/24 documented in this encounter [facility] 07-19-2024 Telephone encounter Note Patient called in stating that she thought that she forgot to order her Trazodone refill. I let her know that it is on the request from Friday and I will let the provider know that she still needs this medication. [facility] 07-18-2024 Discharge summary [facility] 07-18-2024 Radiology Diagnostic study note [facility] Imaging Services [address], [place] [address] Chest PA and Lateral MR#: [id number] Acct: [id number] Name: DANNY PINK Rep #: [id number] : 1955 F 68 From: Amber España MD PCP: Dr. Donovan Hernandez MD Status: REG ER Study:Chest PA and Lateral Date of Exam: 07/18/24 Exam# [id number] Ordering Dr: Chuy Kinney DO PROCEDURE: CHEST PA AND LATERAL 07/18/2024 REASON FOR EXAM: 68-year-old female, COUGH TECHNIQUE: Frontal and lateral views of the chest. COMPARISON: Chest radiograph 03/22/2024. FINDINGS: Hardware: Stable right chest port with tip terminating in the SVC. Heart: The heart size is normal. Mediastinum: The mediastinal contour is unremarkable. Lungs: No focal consolidation, pleural effusion or pneumothorax. Bones: Degenerative changes are identified within the thoracic spine. RAD/Chest PA and Lateral IMPRESSION: NO ACUTE FINDINGS. Reading Location: [id number] CC: Dr. Donovan Hernandez MD; Dr. Chuy Kinney DO ~ Hand Violin Maker: Signed [facility] 07-18-2024 Discharge summary Note Date/Time July 18, 2024 7:10pm [facility] Medical Records Department [address] [place] [address] Emergency Department Summary 07/18/24 MR#: [id number] Acct: [id number] Name: DANNY PINK Rep #:[id number] : 1955 68 From: Chuy Fleming PCP: Dr. Donovan Hernandez MD Status :REG ER Location: ED HPI History of Present Illness Chief Complaint: General Illness Informant: patient and family Narrative Narrative: Presents to ED decreased appetite for the past 3 days. No nausea or vomiting. States had diarrhea at that time this resolved nonbloody. Since then dyspnea cough sinus drainage myalgias. Denies fever headache reports chills. Denies urinary symptoms. Over states had urinary infections without symptoms in the past. No abdominal pain. History uterine cancer chemotherapy however last timemore than a year ago. States chemo therapy led to bone pains. Denies sick contacts. She is tolerating oral fluids. Denies recent travel surgeries or immobilizations. No history of PE or DVT. [facility] Medical History Asthma HTN (hypertension), benign Diabetes s/p radiation Endometrial cancer Postmenopausal bleeding CVA (cerebral vascular accident) Mini stroke Glaucoma Home Medications ?Medication ?Instructions ?Recorded ?Last Taken ?Type aspirin 81 mg chewable tablet 81 mg PO DAILY@0800 ##10 0 05/06/14 12/18/17 Rx brimonidine 0.2 %-timolol 0.5 % 1 drp RIGHT EYE BID 12/19/17 History eye drops dicyclomine 10 mg capsule 10 mg PO 4X/DAY 09/21/18 Unk nown History gabapentin 100 mg capsule 300 mg PO TID PRN Pain 09/21 Unknown History metformin 500 mg tablet,extended 500 mg PO BID 1 Unknown History release 24 hr ondansetron 4 mg disintegrating 4 mg PO Q8H PRN PRN Na usea #14 tabs 12/29/20 Unknown Rx tablet oxycodone 10 mg tablet 5 mg PO Q4H PRN Pain 4 Unknown History gabapentin 300 mg capsule 300 mg PO Q12H 05/04/24 Unkn own History lorazepam 1 mg tablet 1 mg PO TID 05/04/24 Unknown History albuterol sulfate 90 mcg/actuation inhalation 07/18/24 Unknown History aerosol inhaler loratadine 10 mg tablet 10 mg PO DAILY #14 tabs 06/21 Unknown Rx meloxicam 7.5 mg tablet 7.5 mg PO DAILY 07/18/24 Unk nown History omeprazole 40 mg capsule,delayed 40 mg PO 07/18/24 Unk nown History release oxycodone 5 mg tablet 5 mg PO Q4H PRN PRN severe p ain 07/18/24 Unknown History trazodone 100 mg tablet 100 mg PO QHS 07/18/24 Unkno wn History Allergy/AdvReac Type Severity Reaction Status Date / Time morphine Allergy Anaphylaxis Verified 07/18/24 16:14 codeine AdvReac Upset Verified 07/18/24 16:14 Stomach Family History Father Colon cancer Heart disease Hypertension CVA (cerebral vascular accident) Mother Heart disease Hypertension Surgical History Hx of tonsillectomy Hx of hysterectomy delivery delivered Social History adopted: No household members: none number of children: 4 current occupational status: unemployed pets and animals: Yes Smoking Status: Former smoker Tobacco: How many years used: 20 alcohol intake: current alcohol intake frequency: holidays/special occasions only substance use type: does not use what type of physical activity do you participate in: walking seatbelt use: always do you feel safe at home: Yes ROS ROS ED Constitutional Constitutional ED: Reports chills; Denies fever(s) or sweats ENT ENT ED: Reports other Details: Sinus drainage ; Denies sore throat Cardiovascular Cardiovascular: Denies chest pain, leg edema, palpitations or racing heartbeat Respiratory/Chest Respiratory/Chest: Reports cough and dyspnea; Denies dyspnea on exertion Gastrointestinal Gastrointestinal: Reports other Details: Decreased appetite ; Denies abdominal pain, diarrhea, nausea or vomiting Genitourinary Genitourinary ED: Denies dysuria, hematuria or urinary frequency Musculoskeletal Musculoskeletal: Reports myalgias; Denies back pain, extremity pain or neck pain Integumentary Denies rash or wounds Neurologic Neurologic: Denies headache(s), paresthesias or weakness EXAM Physical Exam Const Vital Signs: 07/18/24 16:12 07/18/24 16:31 07/18/24 16:32 Temperature 97.1 F L 98.6 F Temperature Source Temporal Oral Pulse Rate 108 H 102 H Respiratory Rate 20 H 22 H Respiratory Effort Normal Respiratory Pattern Normal Blood Pressure 168/115 H 203/114 H Blood Pressure Mean 132 143 Pulse Ox 98 98 Oxygen Delivery Method Room Air Room Air 07/18/24 16:34 07/18/24 16:59 07/18/24 17:14 Temperature 98.6 F Temperature Source Oral Pulse Rate 100 97 85 Respiratory Rate 15 16 12 Respiratory Effort Respiratory Pattern Blood Pressure 203/114 H 157/102 H Blood Pressure Mean 143 120 Pulse Ox 98 97 97 Oxygen Delivery Method Room Air Room Air Room Air 07/18/24 18:00 Temperature 98.2 F Temperature Source Oral Pulse Rate 82 Respiratory Rate 16 Respiratory Effort Respiratory Pattern Blood Pressure 169/93 H Blood Pressure Mean 114 Pulse Ox 96 Oxygen Delivery Method MDM MDM MDM Narrative Medical decision making narrative: Interventions / MDM: Differential diagnosis: Viral syndrome, sinus congestion Diagnosis considered but do not suspect: Pneumonia however chest x-ray negative. My EKG interpretation: Sinus rhythm 97, no ST changes, QTc 462. Imaging independently reviewed and interpreted by myself: 2 view chest x-ray: Noacute process. External documents reviewed: N/A Test considered but not ordered:N/A ED course: Upper respiratory illness symptoms with decreased appetite. Check EKG, labs and urine. COVID flu and RSV sent for further evaluation. IV fluids ordered. 1800: Chest x-ray negative labs are stable. Sodium 131, last sodium 132. Urinehad leukocytes of 100, 5-10 WBCs with no epithelials. Will send for urine culture. Clinically feeling better. Awaiting viral swabs at this time. 190: COVID flu and RSV negative. Patient ambulated 98% on room air. She is able to tolerate Oral intake and snack in the ED. She has humidifier at home. Meds to bed with loratadine to help with congestion. Discussed viral syndrome with the patient. She will continue oral fluids for hydration at home. Outpatient follow with her doctor. All questions were answered. Re-evaluation: stable Disposition discussed with patient/family/significant other: Patient and family Case discussed with consulting clinician: N/A This note was generated with Tabblo dictation software. It may contain incorrectwords, spelling, and punctuation that were not noted in checking the note beforesigning. Lab Data Attestation: I reviewed the patient's lab results. Labs: Laboratory Results - last 24 hr 07/18/24 07/18/24 07/18/24 16:20 16:30 16:41 WBC 10.7 RBC 4.61 Hgb 14.3 Hct 42.2 MCV 91.5 MCH 31.0 MCHC 33.9 RDW Std Deviation 46.5 H RDW Coeff of Kavita 13.8 Plt Count 465 H MPV 8.4 Immature Gran % (Auto) 1.000 H Neut % (Auto) 82.2 H Lymph % (Auto) 8.0 L White % (Auto) 7.9 Eos % (Auto) 0.3 Baso % (Auto) 0.6 Absolute Neuts (auto) 8.8 H Absolute Lymphs (auto) 0.86 Nucleated RBC % 0 Sodium 131 L Potassium 4.3 Chloride 97 L Carbon Dioxide 14.7 L Anion Gap 20 H BUN 12 Creatinine 1.07 Estim Creat Clear Calc 58.86 Est GFR (MDRD) Non-Af 57 L BUN/Creatinine Ratio 11.6 Glucose 216 H Calcium 9.8 Urine Color Yellow Urine Clarity Clear Urine pH 5.0 Ur Specific [place] 1.025 Urine Protein 30 H Urine Glucose (UA) Normal Urine Ketones Negative Urine Occult Blood 10 H Urine Nitrite Negative Urine Bilirubin 1 H Urine Urobilinogen Normal Ur Leukocyte Esterase 100 H Urine RBC 0-5 SEEN Urine WBC 5-10 SEEN Ur Squamous Epith Cells 0-5 SEEN Urine Bacteria 0 SEEN Urine Mucus 0 SEEN POC Glucose 225 H Radiography Diagnostic Testing: Clinical Impression(s) from Imaging Studies Chest X-Ray 07/18/24 16:45 IMPRESSION: NO ACUTE FINDINGS. Reading Location: [facility] Discharge Plan Triage Chief Complaint: General Illness ED Provider: Chuy Kinney Dx/Rx/DC Orders Clinical Impression: Acute viral syndrome, Sinus congestion, Cough Instructions: ED URI, Viral, No Abx (Adult) Prescriptions: New loratadine 10 mg tablet 10 mg PO DAILY Qty: 14 0RF No Action dicyclomine 10 mg capsule 10 mg PO 4X/DAY gabapentin 100 mg capsule 300 mg PO TID PRN (Reason: Pain) aspirin 81 MG tablet,chewable 81 mg PO DAILY@0800 Qty: 100 0RF Patient Comments: [facility] brimonidine-timolol 1 DROP bottle 1 drp RIGHT EYE BID metformin 500 mg tablet extended release 24 hr 500 mg PO BID Patient Comments: take 1 tablet by mouth twice a day oxycodone 10 mg tablet 5 mg PO Q4H PRN (Reason: Pain) ondansetron 4 mg tablet,disintegrating 4 mg PO Q8H PRN PRN (Reason: Nausea) Qty: 14 0RF gabapentin 300 mg capsule 300 mg PO Q12H lorazepam 1 mg tablet 1 mg PO TID omeprazole 40 mg capsule,delayed release(DR/EC) 40 mg PO meloxicam 7.5 mg tablet 7.5 mg PO DAILY trazodone 100 mg tablet 100 mg PO QHS albuterol sulfate 90 mcg/actuation HFA aerosol inhaler inhalation oxycodone 5 mg tablet 5 mg PO Q4H PRN PRN (Reason: severe pain) Primary Care Provider: Donovan Hernandez Referrals: Donovan Hernandez MD [Primary Care Provider] - 1 Week if not improving Activity Restrictions/Additional Instructions: EKG normal chest x-ray normal labs stable. COVID, flu, RSV negative. Urine culture sent and you will be contacted if antibiotics were needed. Continue oral fluids for hydration. Use humidifier at home. Use medication to help withcongestion. Follow-up with your doctor. Print Language: Congolese Disposition Disposition: Home, Self Care What to do if you have Problems For any increased pain, shortness of breath, bleeding, nausea or vomiting, chestpain, or any unexpected problems, contact your Primary Care Provider. Call [facility] ([phone]) or report to the closest Emergency Room. Call 911 if necessary. 07/18/241909 <Electronically signed by Chuy Fleming> Cosigner Signature (if applicable): CC: Dr. Donovan Hernandez MD ~ Signed [facility] Work Phone: [phone] Telephone encounter Note* Telephone Encounter - MERRICK Ansari CNP - 07/15/2024 2:19 PM EDT [facility]plicate [id number] History of Present illness Narrative* Katty Jo MA - 07/15/2024 1:00 PM EDT What is the most important item you want to discuss with your provider today? Pain is in her bones,back and legs. No concerns at this time Complete med rec line by line. Yes Do you need refills on any medications today? No Pharmacy confirmed in Med management section. Yes * MERRICK Ansari CNP - 07/15/2024 1:00 PM EDT Images from the original note were not included. [facility] [address], [address] [place], [place] [id number] Visit type: follow up appointment. Reason for Visit: Danny Pink is a 68 y.o. female with chief complaint of Pain, Fatigue, Depression, Anxiety, and Shortness of Breath Assessment and Plan Danny was seen today for pain, fatigue, shortness of breath, depression, anxiety and constipation. Diagnoses and all orders for this visit: Cancer related pain/ Neuropathy (Primary)- complicated, a typical neuropathy- noted started after carbo/taxol in 2019. Notes crushing bone pain in bilateral hips into legs and feet. Did not tolerate gabapentin tid or cymbalta. For neuropathy use oxycodone 5-10mg po q 4h prn pain. Reviewed OAARS, eprescribed oxycodone. Recurrent carcinoma of endometrium (HCC)- under care of Dr. Quiñonez, with multiple treatment lines and most recently simple partial vaginectomy. Notes still awaiting pet scan, and has not seen Dr. Quiñonez since 02/11,. Anxiety- continue with ativan Shortness of breath- with chest pressure- notes worst over the last two weeks, no help from albuterol- no hypoxia with walkign short distances. Discussed with Danny need to follow up with PCP, pulmnologist regarding SOB. If chest pain worsens/nausea- may need ER evalution. Did refer to social work and financial navigator to help with loss of insurance. 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 I assume responsibility for the patient's ongoing medical care of this condition. Follow-up: 4 weeks Subjective Danny Pink is a 68 y.o. 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 Tolerated treatment well. Due for repeat imaging to assess response to treatment. PET ordered. Unfortunately, there appears to be a new isolated vaginal lesion. Had simple partial vaginectomyunder care of Dr. Quiñonez on 10/06/23. 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 Pain Associated symptoms include chest pain, constipation, fatigue and shortness of breath. Fatigue Associated symptoms include chest pain and fatigue. Anxiety Symptoms include chest pain and shortness of breath. DepressionPatient presents with the following symptoms: shortness of breath. Shortness of Breath Associated symptoms include chest pain. Constipation Danny is seen today in follow up. She continues to not feel well at home. Notes poor appetite, ate this am and had episode of stomach pain and diarrhea.Notes poor SOB and chest pressure- started two weeks ago- no hypoxia. Still with chronic back pain and neuropathy. Now with lost of insurance, unable to check blood glucose or to see PCP. Still with infected tooth- no ability to see dentist. Pain Assessment (If Pain Scale >0) Description: sharp and crushing Duration: year(s) Frequency:Daily Location: bones, hips into legs Alleviating Factors: pain medication Exacerbating Factors: unable to associate with any factor Effect:Change in Function and Interference with Activities, worst at night Phenix Symptom Assessment Score Phenix Symptom Assessment System Pain Score: 8 Tiredness Score: 8 Nausea Score: 5 Depression Score: 9 Anxiety Score: 9 Drowsiness Score: 8 Appetite Score: 7 Wellbeing Score: 8 Dyspnea Score: 8 Other Problem Score: 6 Assessed by:patient Review of Systems Constitutional: Positive for fatigue. Respiratory: Positive for chest tightness and shortness of breath. Cardiovascular: Positive for chest pain. Gastrointestinal: Positive for constipation. 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 Constitutional: Appearance: Normal appearance. She is normal weight. Comments: Flat mood HENT: Mouth/Throat: Mouth: Mucous membranes are moist. Eyes: General: No scleral icterus. Extraocular Movements: Extraocular movements intact. Pupils: Pupils are equal, round, and reactive to light. Comments: 4 mm pupils bilaterally. Cardiovascular: Rate and Rhythm: Normal rate and regular rhythm. Pulses: Normal pulses. Pulmonary: Effort: Pulmonary effort is normal. No respiratory distress. Breath sounds: Normal breath sounds. No wheezing or rales. Comments: Walked short distance and pulse ox 96% , but SOB with activity Abdominal: General: Abdomen is flat. There is no distension. Tenderness: There is no abdominal tenderness. Musculoskeletal: General: Normal range of motion. Right lower leg: No edema. Left lower leg: No edema. Skin: General: Skin is warm. Coloration: Skin is pale. Findings: No rash. Neurological: General: No focal deficit present. Mental Status: She is alert and oriented to person, place, and time. Cranial Nerves: No cranial nerve deficit. Sensory: No sensory deficit. Psychiatric: Mood and Affect: Mood normal. Behavior: Behavior normal. ECO - Restricted in physically strenuous activity but ambulatory and able to carry out work of a light or sedentary nature, e.g., light house work, office work PPS:60-70 Data Reviewed and Summarized Opiate Prescribing OARRS was reviewed and is supportive of the care plan. Controlled Substance Agreement Form completed in past 12 months: yes OARRS Report Review: Report reviewed Toxicology Screen: ordered today at [facility] The qualifying diagnosis iscancer The duration of opioid prescription is longer than 7 days because malignancy This patient requires opioid dosage greater than 30 oral morphine equivalents due to advanced malignancy and symptoms could not be controlled with non-opioid alternatives alone or with lower doses ofopiates. Planned duration of therapy: indefinite due to terminal illness and progressive cancer Attempts made to wean opiate therapy made: No- patient is using frequent PRN doses and this is not indicatedOpiate Risk Assessment Tool SOAPP given yes SOAPP score: <7, low risk Red Flags for Abuse or Diversion: None Identified Results/Verification of Data Review Objective data reviewed: Labs: Lab Results Component Value Date WBC 8.0 03/11/2024 HGB 15.1 03/11/2024 HCT 45.0 03/11/2024 MCV 93.2 03/11/2024 PLT 248 03/11/2024 Lab Results Component Value Date NA 135 08/19/2022 K 5.0 08/19/2022 CL 105 08/19/2022 CO2 29 03/11/2024 BUN 9 03/11/2024 CREATININE 0.65 03/11/2024 GLUCOSE 165 (H) 03/11/2024 CALCIUM 10.0 03/11/2024 PROT 6.8 03/11/2024 BILITOT 0.7 03/11/2024 ALKPHOS 68 03/11/2024 AST 14 03/11/2024 ALT 18 03/11/2024 LABGLOM 70 09/05/2021 AGRATIO 1.8 03/11/2024 GLOB 2.4 03/11/2024 No results found for: PSA, CEA, CA125, RG5491, CA199 documented in this encounterSSal[facility] [id number] Telephone encounter Note* Telephone Encounter - Dena Camacho MA - 07/15/2024 9:36 AM EDT Confirmed patient Name and : Yes Medication name(s) and dose(s) requested: Lorazepam (Ativan) 1 MG Tablet Oxycodone (Roxicodone) 5 MG IR Tablets Prochlorperazine (Compazine) 10 MG Tablets Trazodone (Desyrel) 100 MG Tablets Approximate number of pills available in the home: Trazodone- None Left Compazine- 2 Tablets Left Ativan- None Left Oxycodone- 1 Tablet Left Confirmed and updated correct pharmacy: Yes Reminded patient of 3 business day refill policy on all medication refill requests: Yes Notified patient to call pharmacy to confirm prescription ready for pickup and to call office if not available within 3 business days: Yes Date of last appointment: 05/20/24 Date of next appointment: 07/15/24 [id number] Telephone encounter Note* Telephone Encounter - MERRICK Ansari CNP - 06/28/2024 2:07 PM EDT Reviewed oaars.eprescribed refill [id number] Miscellaneous Notes* Telephone Encounter - MERRICK Ansari CNP - 06/28/2024 2:07 PM EDT Reviewed oajose.eprescribed refill * Telephone Encounter - Dean Camacho MA - 06/28/2024 11:49 AM EDT Confirmed patient Name and : Yes Medication name(s) and dose(s) requested: Gabapentin (Neurontin) 300 MG Capsule Lorazepam (Ativan) 1 MG Tablet Oxycodone (Roxicodone) 5 MG IR Tablet Approximate number of pills available in the home: Gabapentin- 8 Tablets left Ativan- None Left Oxycodone- 1 Tablet Left Confirmed and updated correct pharmacy: Yes Reminded patient of 3 business day refill policy on all medication refill requests: Yes Notified patient to call pharmacy to confirm prescription ready for pickup and to call office if not available within 3 business days: Yes Date of last appointment: 05/20/24 Date of next appointment: 07/15/24 documented in this encounterSSal[facility] [id number] Telephone encounter Note* Telephone Encounter - Dena Camacho MA - 06/28/2024 11:49 AM EDT Confirmed patient Name and : Yes Medication name(s) and dose(s) requested: Gabapentin (Neurontin) 300 MG Capsule Lorazepam (Ativan) 1 MG Tablet Oxycodone (Roxicodone) 5 MG IR Tablet Approximate number of pills available in the home: Gabapentin- 8 Tablets left Ativan- None Left Oxycodone- 1 Tablet Left Confirmed and updated correct pharmacy: Yes Reminded patient of 3 business day refill policy on all medication refill requests: Yes Notified patient to call pharmacy to confirm prescription ready for pickup and to call office if not available within 3 business days: Yes Date of last appointment: 05/20/24 Date of next appointment: 07/15/24 [id number] Telephone encounter Note* Telephone Encounter - Alka Cason APRN - GUMARO - 06/17/2024 12:48 PM EST Danny came to desk, believing today she had an appointment. Having GERD, asking for something to help. Sent omeprazole to pharmacy. [facility] [id number] Miscellaneous Notes* Telephone Encounter - MERRICK Ansari CNP - 06/17/2024 12:48 PM EST Danny came to desk, believing today she had an appointment. Having GERD, asking for something to help. Sent omeprazole to pharmacy. documented in this encounterSSalem City [id number] Telephone encounter Note* Telephone Encounter - Dena Camacho MA - 06/07/2024 12:32 PM EST Confirmed patient Name and : Yes Medication name(s) and dose(s) requested: Trazodone (Desyrel) 100 MG Tablet Approximate number of pills available in the home: None Left Confirmed and updated correct pharmacy: Yes Reminded patient of 3 business day refill policy on all medication refill requests: Yes Notified patient to call pharmacy to confirm prescription ready for pickup and to call office if not available within 3 business days: Yes Date of last appointment: 05/20/24 Date of next appointment: 07/15/24 [id number] Miscellaneous Notes* Telephone Encounter - Dena Camacho MA - 06/07/2024 12:32 PM EST Confirmed patient Name and : Yes Medication name(s) and dose(s) requested: Trazodone (Desyrel) 100 MG Tablet Approximate number of pills available in the home: None Left Confirmed and updated correct pharmacy: Yes Reminded patient of 3 business day refill policy on all medication refill requests: Yes Notified patient to call pharmacy to confirm prescription ready for pickup and to call office if not available within 3 business days: Yes Date of last appointment: 05/20/24 Date of next appointment: 07/15/24 documented in this [facility]02-10-2025 Telephone encounter Note* Telephone Encounter - MERRICK Ansari CNP - 05/31/2024 9:44 AM EST Reviewed oaars. Refills okay for oxycodone to be used 5-10mg , will fill for today, ativan to be filled 06/06/24. [id number] Miscellaneous Notes* Telephone Encounter - MERRICK Ansari CNP - 05/31/2024 9:44 AM EST Reviewed oaars. Refills okay for oxycodone to be used 5-10mg , will fill for today, ativan to be filled 06/06/24. * Telephone Encounter - Dena Camacho MA - 05/31/2024 9:23 AM EST Confirmed patient Name and : Yes Medication name(s) and dose(s) requested: Lorazepam (Ativan) 1 MG Tablet Oxycodone (Roxicodone) 5 MG IR Tablet Approximate number of pills available in the home: Ativan- None Left Oxycodone- 2 Tablets Left Confirmed and updated correct pharmacy: Yes Reminded patient of 3 business day refill policy on all medication refill requests: Yes Notified patient to call pharmacy to confirm prescription ready for pickup and to call office if not available within 3 business days: Yes Date of last appointment: 05/20/24 Date of next appointment: 07/15/24 documented in this [facility]02-10-2025 Telephone encounter Note* Telephone Encounter - Dena Camacho MA - 05/31/2024 9:23 AM EST Confirmed patient Name and : Yes Medication name(s) and dose(s) requested: Lorazepam (Ativan) 1 MG Tablet Oxycodone (Roxicodone) 5 MG IR Tablet Approximate number of pills available in the home: Ativan- None Left Oxycodone- 2 Tablets Left Confirmed and updated correct pharmacy: Yes Reminded patient of 3 business day refill policy on all medication refill requests: Yes Notified patient to call pharmacy to confirm prescription ready for pickup and to call office if not available within 3 business days: Yes Date of last appointment: 05/20/24 Date of next appointment: 07/15/24 [id number] History of Present illness Narrative* Katty Jo MA - 05/20/2024 2:00 PM EST What is the most important item you want to discuss with your provider today? States she was unableto get her diabetes medication because the copay was $600.00 pain in bones, lower back and legs. Complete med rec line by line. Yes Do you need refills on any medications today? No Pharmacy confirmed in Med management section. Yes * Alka Cason APRN - MEDICAL ASSISTANT SUPERVISOR - 05/20/2024 2:00 PM EST Images from the original note were not included. [facility] [address], [address] [place], [place] [id number] Visit type: follow up appointment. Reason for Visit: Danny Pink is a 68 y.o. female with chief complaint of Anxiety, Fatigue, andShortness of Breath Assessment and Plan Danny was seen today for pain, fatigue, shortness of breath, depression, anxiety and constipation. Diagnoses and all orders for this visit: Cancer related pain/ Neuropathy (Primary)- complicated, a typical neuropathy- noted started after carbo/taxol in 2019. Notes crushing bone pain in bilateral hips into legs and feet. Did not tolerate gabapentin tid or cymbalta. For neuropathy use oxycodone 5-10mg po q 4h prn pain. Reviewed OAARS, eprescribed oxycodone. Recurrent carcinoma of endometrium (HCC)- under care of Dr. Quiñonez, with multiple treatment lines and most recently simple partial vaginectomy. Tooth pain- possible tooth infection, abscess with radiating pain into ear, start on antibiotic andrefer to dentist. 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 I assume responsibility for the patient's ongoing medical care of this condition. Follow-up: 4 weeks Subjective Danny Pink is a 68 y.o. 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 Tolerated treatment well. Due for repeat imaging to assess response to treatment. PET ordered. Unfortunately, there appears to be a new isolated vaginal lesion. Had simple partial vaginectomyunder care of Dr. Quiñonez on 10/06/23. 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 Pain Associated symptoms include constipation, fatigue and shortness of breath. Fatigue Associated symptoms include fatigue. Anxiety Symptoms include shortness of breath. DepressionPatient presents with the following symptoms: shortness of breath. Shortness of Breath Constipation Danny is seen today in follow up. She continues to not feel well at home. Recent UTI at home, last treated with an antibiotic 3 weeks ago. Notes continues to have increase blood glucose, unable to start new medication for blood sugars due to high cost. Still awaiting pet scan. Notes over last 48 hours severe tooth pain(tooth 26) with movement into right ear. Denies nausea, constipation. Continuesto use oxycodone for neuropathy. Pain Assessment (If Pain Scale >0) Description: sharp and crushing Duration: year(s) Frequency:Daily Location: bones, hips into legs Alleviating Factors: pain medication Exacerbating Factors: unable to associate with any factor Effect:Change in Function and Interference with Activities, worst at night Phenix Symptom Assessment Score Phenix Symptom Assessment System Pain Score: 8 Tiredness Score: 8 Nausea Score: 6 Depression Score: 8 Anxiety Score: 9 Drowsiness Score: 9 Appetite Score: 7 Wellbeing Score: 8 Dyspnea Score: 9 Other Problem Score: 8 Assessed by:patient Review of Systems Constitutional: Positive for fatigue. Respiratory: Positive for shortness of breath. Gastrointestinal: Positive for constipation. 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 Constitutional: Appearance: Normal appearance. She is normal weight. Comments: Flat mood HENT: Mouth/Throat: Mouth: Mucous membranes are moist. Eyes: General: No scleral icterus. Extraocular Movements: Extraocular movements intact. Pupils: Pupils are equal, round, and reactive to light. Comments: Pupils 3mm bilaterally Cardiovascular: Rate and Rhythm: Normal rate and regular rhythm. Pulses: Normal pulses. Pulmonary: Effort: Pulmonary effort is normal. No respiratory distress. Breath sounds: Normal breath sounds. No wheezing or rales. Comments: Breathing with mouth open Abdominal: General: Abdomen is flat. There is no distension. Tenderness: There is no abdominal tenderness. Musculoskeletal: General: Normal range of motion. Right lower leg: No edema. Left lower leg: No edema. Skin: General: Skin is warm. Coloration: Skin is pale. Findings: No rash. Neurological: General: No focal deficit present. Mental Status: She is alert and oriented to person, place, and time. Cranial Nerves: No cranial nerve deficit. Sensory: No sensory deficit. Psychiatric: Mood and Affect: Mood normal. Behavior: Behavior normal. ECO - Restricted in physically strenuous activity but ambulatory and able to carry out work of a light or sedentary nature, e.g., light house work, office work PPS:60-70 Data Reviewed and Summarized Opiate Prescribing OARRS was reviewed and is supportive of the care plan. Controlled Substance Agreement Form completed in past 12 months: yes OARRS Report Review: Report reviewed Toxicology Screen: ordered today at [facility] The qualifying diagnosis iscancer The duration of opioid prescription is longer than 7 days because malignancy This patient requires opioid dosage greater than 30 oral morphine equivalents due to advanced malignancy and symptoms could not be controlled with non-opioid alternatives alone or with lower doses ofopiates. Planned duration of therapy: indefinite due to terminal illness and progressive cancer Attempts made to wean opiate therapy made: No- patient is using frequent PRN doses and this is not indicatedOpiate Risk Assessment Tool SOAPP given yes SOAPP score: <7, low risk Red Flags for Abuse or Diversion: None Identified Results/Verification of Data Review Objective data reviewed: Labs: Lab Results Component Value Date WBC 8.0 03/11/2024 HGB 15.1 03/11/2024 HCT 45.0 03/11/2024 MCV 93.2 03/11/2024 PLT 248 03/11/2024 Lab Results Component Value Date NA 135 08/19/2022 K 5.0 08/19/2022 CL 105 08/19/2022 CO2 29 03/11/2024 BUN 9 03/11/2024 CREATININE 0.65 03/11/2024 GLUCOSE 165 (H) 03/11/2024 CALCIUM 10.0 03/11/2024 PROT 6.8 03/11/2024 BILITOT 0.7 03/11/2024 ALKPHOS 68 03/11/2024 AST 14 03/11/2024 ALT 18 03/11/2024 LABGLOM 70 09/05/2021 AGRATIO 1.8 03/11/2024 GLOB 2.4 03/11/2024 No results found for: PSA, CEA, CA125, MC4753, CA199 documented in this [facility]01-30-2025 Instructions* Patient Instructions* MERRICK Ansari CNP - 05/20/2024 2:00 PM EST [facility] [phone] documented in this [facility]01-28-2025 Telephone encounter Note* Telephone Encounter - MERRICK Ansari CNP - 05/18/2024 12:12 PM EST Reviewed oaars.eprescribed refills as appropriate [id number] Miscellaneous Notes* Telephone Encounter - MERRICK Ansari CNP - 05/18/2024 12:12 PM EST Reviewed oaars.eprescribed refills as appropriate * Telephone Encounter - Dena Camacho MA - 05/18/2024 11:12 AM EST Confirmed patient Name and : Yes Medication name(s) and dose(s) requested: Lorazepam (Ativan) 1 MG Tablet Oxycodone (Roxicodone) 5 MG IR Tablet Trazodone (Desyrel) 100 MG Tablet Approximate number of pills available in the home: Ativan- 2 Tablets Left Trazodone- None Left Oxycodone- 8 Tablets Left Confirmed and updated correct pharmacy: Yes Reminded patient of 3 business day refill policy on all medication refill requests: Yes Notified patient to call pharmacy to confirm prescription ready for pickup and to call office if not available within 3 business days: Yes Date of last appointment: 04/08/24 Date of next appointment: 05/20/24 [id number] Telephone encounter Note* Telephone Encounter - Dena Camacho MA - 05/18/2024 11:12 AM EST Confirmed patient Name and : Yes Medication name(s) and dose(s) requested: Lorazepam (Ativan) 1 MG Tablet Oxycodone (Roxicodone) 5 MG IR Tablet Trazodone (Desyrel) 100 MG Tablet Approximate number of pills available in the home: Ativan- 2 Tablets Left Trazodone- None Left Oxycodone- 8 Tablets Left Confirmed and updated correct pharmacy: Yes Reminded patient of 3 business day refill policy on all medication refill requests: Yes Notified patient to call pharmacy to confirm prescription ready for pickup and to call office if not available within 3 business days: Yes Date of last appointment: 04/08/24 Date of next appointment: 05/20/24 [facility] [id number] Note* Addendum Note - MERRICK Ansari CNP - 05/03/2024 2:54 PM ESTAddended by: ALKA CASON on: 05/03/2024 02:54 PM Modules accepted: Orders [id number] Miscellaneous Notes* Addendum Note - MERRICK Ansari CNP - 05/03/2024 2:54 PM ESTAddended by: ALKA CASON on: 05/03/2024 02:54 PM Modules accepted: Orders * Telephone Encounter - MERRICK Ansari CNP - 05/03/2024 2:53 PM EST Prescription Refill Request Patient Name: Danny Pink PCP: Donovan Hernandez Past Medical History: Past Medical History: Diagnosis Date Anemia LOW IRON DUE TO BLEEDING Asthma Cerebral artery occlusion with cerebral infarction (HCC) Diabetes (HCC) Endometrial adenocarcinoma (CMS/HCC) (HCC) FIGO GRADE 2 GERD (gastroesophageal reflux disease) Glaucoma 2014 Hx of blood clots Hypertension Mini stroke 2014 Thrombotic. Affected short term memory, had to relearn things, locations. Past Surgical History: Past Surgical History: Procedure Laterality Date CATARACT EXTRACTION Left CATARACT EXTRACTION W/ INTRAOCULAR LENS IMPLANT Right 07/09/2021 SECTION (HISTORICAL) x2. Pfannenstiel incisions. COLONOSCOPY DILATION AND CURETTAGE OF UTERUS 12/19/2017 Dr Brittny [facility] ENDOMETRIAL BIOPSY IR CVC MEDIPORT PLACEMENT OTHER SURGICAL HISTORY 12/09/2019 Robotic Fe-Aortic Biopsy TONSILLECTOMY (HISTORICAL) TOTAL ABDOMINAL HYSTERECTOMY 01/19/2018 Robotic hysterectomy, BSO, right pelvic sentinel LNB, left pelvic lymphadenectomy-Dr. Khang Tapia [facility] TUBAL LIGATION UPPER GASTROINTESTINAL ENDOSCOPY Allergies: Allergies Allergen Reactions Morphine Anaphylaxis and Shortness of breath Codeine Rash and Nausea And Vomiting Other reaction(s): Other (See Comments), Upset Stomach Problem List: does not have any pertinent problems on file. Current Medication List: Current Outpatient Medications on File Prior to Visit Medication Sig Dispense Refill gabapentin (Neurontin) 300 MG capsule TAKE 1 CAPSULE BY MOUTH 2 TIMES A DAY 60 capsule 0 albuterol 108 (90 Base) MCG/ACT inhaler Inhale 90 each if needed. aspirin 81 MG chewable tablet Chew 81 mg daily. bisacodyl (Dulcolax) 5 MG EC tablet Take 10 mg by mouth if needed. brimonidine (AlphaGAN P) 0.2 % ophthalmic solution Administer 1 drop into both eyes Nightly. calcium carbonate (Os-Papito) 1250 (500 Ca) MG chewable tablet Chew 1 tablet if needed. cholecalciferol (Vitamin D-3) 50 MCG (2000 UT) capsule Take 1 capsule (50 mcg) by mouth in the morning. 30 capsule 2 dicyclomine (Bentyl) 10 MG capsule Take 10 mg by mouth if needed. ketorolac (Acular) 0.5 % ophthalmic solution latanoprost (Xalatan) 0.005 % ophthalmic solution Administer 1 drop into both eyes Nightly. LORazepam (Ativan) 1 MG tablet Take 1 tablet (1 mg) by mouth every 8 hours as needed for anxiety for up to 20 days. 60 tablet 0 LORazepam (Ativan) 1 MG tablet Take 1 tablet (1 mg) by mouth every 6 hours as needed for anxiety. 60 tablet 0 metFORMIN XR (Glucophage-XR) 500 MG 24 hr tablet Take 1,000 mg by mouth in the morning and 1,000 mgin the evening. Misc. Devices (Sitz Bath) misc Use for pain relief as needed 1 each 0 Misc. Devices (Collins Bottle/Plastic 120mL) misc Use to clean area as needed 1 each 0 naloxone (Narcan) 4 mg/0.1 mL nasal spray Administer 4 mg into affected nostril(s) if needed. ofloxacin (Ocuflox) 0.3 % ophthalmic solution ondansetron (Zofran) 8 MG tablet Take 8 mg by mouth if needed. pantoprazole (ProtoNix) 40 MG EC tablet Take 40 mg by mouth if needed. prednisoLONE acetate (Pred-Forte) 1 % ophthalmic suspension prochlorperazine (Compazine) 10 MG tablet Take 1 tablet (10 mg) by mouth every 8 hours as needed for nausea or vomiting. 60 tablet 3 sennosides (Senokot) 8.6 MG tablet Take 8.6 mg by mouth in the morning and 8.6 mg in the evening. sucralfate (Carafate) 1 GM/10ML suspension Take 1 g by mouth if needed. traZODone (Desyrel) 100 MG tablet Take 1 tablet (100 mg) by mouth Nightly. 30 tablet 0 Trelegy Ellipta 200-62.5-25 MCG/ACT aerosol powder [DISCONTINUED] LORazepam (Ativan) 1 MG tablet Take 1 tablet (1 mg) by mouth every 6 hours as neededfor anxiety. 60 tablet 0 No current facility-administered medications on file prior to visit. Telephone call placed to patient. The identity and location of the patient was confirmed and informed consent for treatment through a remote examination was obtained. The patient's diagnosis was confirmed and necessity for prescribed drug was verified. Drug(s) to be refilled: Requested Prescriptions No prescriptions requested or ordered in this encounter The patient has underlying conditions or contraindications which preclude continuation of the medication at this time: No, Refill provided {Put your decision support here (Optional): [id number]: If the medication(s) being refilled is (are)a controlled substance please verify the following: The person is an active patient of a licensed practitioner who is a colleague of the provider Yes Drugs are being prescribed pursuant to an on-call or cross coverage agreement {Blank single:54399::Yes, No, N/A OARRS report reviewed: Yes Referrals placed: N/A Follow-Up Care and Testing: No follow-ups on file. * Telephone Encounter - Katty Jo MA - 05/03/2024 9:35 AM EST Confirmed patient Name and : Yes Medication name(s) and dose(s) requested: Oxycodone (Roxicodone) 5mg IR tablet Approximate number of pills available in the home: 2 tablets left Confirmed and updated correct pharmacy: Yes Reminded patient of 3 business day refill policy on all medication refill requests: Yes Notified patient to call pharmacy to confirm prescription ready for pickup and to call office if not available within 3 business days: Yes Date of last appointment: 04/08/24 Date of next appointment: 05/20/24 documented in this [facility]01-13-2025 Telephone encounter Note* Telephone Encounter - Alka Cason APRN - [facility] - 05/03/2024 2:53 PM EST Prescription Refill Request Patient Name: Danny Pink PCP: Donovan Hernandez Past Medical History: Past Medical History: Diagnosis Date Anemia LOW IRON DUE TO BLEEDING Asthma Cerebral artery occlusion with cerebral infarction (HCC) Diabetes (HCC) Endometrial adenocarcinoma (CMS/HCC) (HCC) FIGO GRADE 2 GERD (gastroesophageal reflux disease) Glaucoma 2014 Hx of blood clots Hypertension Mini stroke 2014 Thrombotic. Affected short term memory, had to relearn things, locations. Past Surgical History: Past Surgical History: Procedure Laterality Date CATARACT EXTRACTION Left CATARACT EXTRACTION W/ INTRAOCULAR LENS IMPLANT Right 07/09/2021 SECTION (HISTORICAL) x2. Pfannenstiel incisions. COLONOSCOPY DILATION AND CURETTAGE OF UTERUS 12/19/2017 Dr Brittny Gan[facility] ENDOMETRIAL BIOPSY IR CVC MEDIPORT PLACEMENT OTHER SURGICAL HISTORY 12/09/2019 Robotic Fe-Aortic Biopsy TONSILLECTOMY (HISTORICAL) TOTAL ABDOMINAL HYSTERECTOMY 01/19/2018 Robotic hysterectomy, BSO, right pelvic sentinel LNB, left pelvic lymphadenectomy-Dr. Khang Tapia [facility] TUBAL LIGATION UPPER GASTROINTESTINAL ENDOSCOPY Allergies: Allergies Allergen Reactions Morphine Anaphylaxis and Shortness of breath Codeine Rash and Nausea And Vomiting Other reaction(s): Other (See Comments), Upset Stomach Problem List: does not have any pertinent problems on file. Current Medication List: Current Outpatient Medications on File Prior to Visit Medication Sig Dispense Refill gabapentin (Neurontin) 300 MG capsule TAKE 1 CAPSULE BY MOUTH 2 TIMES A DAY 60 capsule 0 albuterol 108 (90 Base) MCG/ACT inhaler Inhale 90 each if needed. aspirin 81 MG chewable tablet Chew 81 mg daily. bisacodyl (Dulcolax) 5 MG EC tablet Take 10 mg by mouth if needed. brimonidine (AlphaGAN P) 0.2 % ophthalmic solution Administer 1 drop into both eyes Nightly. calcium carbonate (Os-Papito) 1250 (500 Ca) MG chewable tablet Chew 1 tablet if needed. cholecalciferol (Vitamin D-3) 50 MCG (2000 UT) capsule Take 1 capsule (50 mcg) by mouth in the morning. 30 capsule 2 dicyclomine (Bentyl) 10 MG capsule Take 10 mg by mouth if needed. ketorolac (Acular) 0.5 % ophthalmic solution latanoprost (Xalatan) 0.005 % ophthalmic solution Administer 1 drop into both eyes Nightly. LORazepam (Ativan) 1 MG tablet Take 1 tablet (1 mg) by mouth every 8 hours as needed for anxiety for up to 20 days. 60 tablet 0 LORazepam (Ativan) 1 MG tablet Take 1 tablet (1 mg) by mouth every 6 hours as needed for anxiety. 60 tablet 0 metFORMIN XR (Glucophage-XR) 500 MG 24 hr tablet Take 1,000 mg by mouth in the morning and 1,000 mgin the evening. Misc. Devices (Sitz Bath) misc Use for pain relief as needed 1 each 0 Misc. Devices (Collins Bottle/Plastic 120mL) misc Use to clean area as needed 1 each 0 naloxone (Narcan) 4 mg/0.1 mL nasal spray Administer 4 mg into affected nostril(s) if needed. ofloxacin (Ocuflox) 0.3 % ophthalmic solution ondansetron (Zofran) 8 MG tablet Take 8 mg by mouth if needed. pantoprazole (ProtoNix) 40 MG EC tablet Take 40 mg by mouth if needed. prednisoLONE acetate (Pred-Forte) 1 % ophthalmic suspension prochlorperazine (Compazine) 10 MG tablet Take 1 tablet (10 mg) by mouth every 8 hours as needed for nausea or vomiting. 60 tablet 3 sennosides (Senokot) 8.6 MG tablet Take 8.6 mg by mouth in the morning and 8.6 mg in the evening. sucralfate (Carafate) 1 GM/10ML suspension Take 1 g by mouth if needed. traZODone (Desyrel) 100 MG tablet Take 1 tablet (100 mg) by mouth Nightly. 30 tablet 0 Trelegy Ellipta 200-62.5-25 MCG/ACT aerosol powder [DISCONTINUED] LORazepam (Ativan) 1 MG tablet Take 1 tablet (1 mg) by mouth every 6 hours as neededfor anxiety. 60 tablet 0 No current facility-administered medications on file prior to visit. Telephone call placed to patient. The identity and location of the patient was confirmed and informed consent for treatment through a remote examination was obtained. The patient's diagnosis was confirmed and necessity for prescribed drug was verified. Drug(s) to be refilled: Requested Prescriptions No prescriptions requested or ordered in this encounter The patient has underlying conditions or contraindications which preclude continuation of the medication at this time: No, Refill provided {Put your decision support here (Optional): [id number]: If the medication(s) being refilled is (are)a controlled substance please verify the following: The person is an active patient of a licensed practitioner who is a colleague of the provider Yes Drugs are being prescribed pursuant to an on-call or cross coverage agreement {Blank single:65574::Yes, No, N/A OARRS report reviewed: Yes Referrals placed: N/A Follow-Up Care and Testing: No follow-ups on file. [id number] Telephone encounter Note* Telephone Encounter - Katty Jo MA - 05/03/2024 9:35 AM EST Confirmed patient Name and : Yes Medication name(s) and dose(s) requested: Oxycodone (Roxicodone) 5mg IR tablet Approximate number of pills available in the home: 2 tablets left Confirmed and updated correct pharmacy: Yes Reminded patient of 3 business day refill policy on all medication refill requests: Yes Notified patient to call pharmacy to confirm prescription ready for pickup and to call office if not available within 3 business days: Yes Date of last appointment: 04/08/24 Date of next appointment: 05/20/24 [id number] Telephone encounter Note* Telephone Encounter - MERRICK Ansari CNP - 04/28/2024 2:21 PM EST Reviewed oaars, eprescribed refill. [id number] Miscellaneous Notes* Telephone Encounter - MERRICK Ansari CNP - 04/28/2024 2:21 PM EST Reviewed oaars, eprescribed refill. * Telephone Encounter - Dena Camacho MA - 04/28/2024 11:42 AM EST Confirmed patient Name and : Yes Medication name(s) and dose(s) requested: Lorazepam (Ativan) 1 MG Tablet Approximate number of pills available in the home: 1 Tablet Left Confirmed and updated correct pharmacy: Yes Reminded patient of 3 business day refill policy on all medication refill requests: Yes Notified patient to call pharmacy to confirm prescription ready for pickup and to call office if not available within 3 business days: Yes Date of last appointment: 04/08/24 Date of next appointment: 05/20/24 [facility] in [id number] Telephone encounter Note* Telephone Encounter - Dena Camacho MA - 04/28/2024 11:42 AM EST Confirmed patient Name and : Yes Medication name(s) and dose(s) requested: Lorazepam (Ativan) 1 MG Tablet Approximate number of pills available in the home: 1 Tablet Left Confirmed and updated correct pharmacy: Yes Reminded patient of 3 business day refill policy on all medication refill requests: Yes Notified patient to call pharmacy to confirm prescription ready for pickup and to call office if not available within 3 business days: Yes Date of last appointment: 04/08/24 Date of next appointment: 05/20/24 [id number] History of Present illness Narrative* Katty Jo MA - 04/08/2024 1:00 PM EST What is the most important item you want to discuss with your provider today? Was in ED last week for UTI. Complete med rec line by line. Yes Do you need refills on any medications today? Yes, names of medication needed: trazodone, lorazepam, oxycodone Pharmacy confirmed in Med management section. Yes * MERRICK Ansari CNP - 04/08/2024 1:00 PM EST Images from the original note were not included. [facility] [address], [address] [place], [place] [id number] Visit type: follow up appointment. Reason for Visit: Danny Pink is a 68 y.o. female with chief complaint of Pain (States her bones hurt. Lower back and leg pain. ), Fatigue, Depression, Anxiety, and Shortness of Breath Assessment and Plan Danny was seen today for pain, fatigue, shortness of breath, depression, anxiety and constipation. 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 Notes crushing bone pain in bilateral hips into legs and feet. Did not tolerate gabapentin tid or cymbalta. For neuropathy use oxycodone 5-10mg po q 4h prn pain. Reviewed OAARS, eprescribed oxycodone. Recurrent carcinoma of endometrium (HCC)- under care of Dr. Quiñonez, with multiple treatment lines and most recently simple partial vaginectomy. Current episode of depression- scontinue of effexor. 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 I assume responsibility for the patient's ongoing medical care of this condition. Follow-up: 4 weeks Subjective Danny Pink is a 68 y.o. 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 Tolerated treatment well. Due for repeat imaging to assess response to treatment. PET ordered. Unfortunately, there appears to be a new isolated vaginal lesion. Had simple partial vaginectomyunder care of Dr. Quiñonez on 10/06/23. 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 Pain Associated symptoms include constipation, fatigue and shortness of breath. Fatigue Associated symptoms include fatigue. Anxiety Symptoms include shortness of breath. DepressionPatient presents with the following symptoms: shortness of breath. Shortness of Breath Constipation Danny is seen today in follow up. She notes that she has not been feeling well for the last few weeks. Reports ongoing fatigue. She reports that she was not able to tolerate cymbalta. Notes that she tried gabapentin but had balance changes. For pain continues to use oxycodone 5-10mg po q 4h prn pain. Uses about 8 tabs a day. Notes no constipation or nausea. Awaiting pet scan still- due to hyperglycemia. She also states she has trouble sleep/resting- sleeps all day,. Up all night. Pain Assessment (If Pain Scale >0) Description: sharp and crushing Duration: year(s) Frequency:Daily Location: bones, hips into legs Alleviating Factors: pain medication Exacerbating Factors: unable to associate with any factor Effect:Change in Function and Interference with Activities, worst at night Phenix Symptom Assessment Score Phenix Symptom Assessment System Pain Score: 8 Tiredness Score: 9 Nausea Score: 6 Depression Score: 9 Anxiety Score: 9 Drowsiness Score: 9 Appetite Score: 3 Wellbeing Score: 8 Dyspnea Score: 8 Other Problem Score: 5 Assessed by:patient Review of Systems Constitutional: Positive for fatigue. Respiratory: Positive for shortness of breath. Gastrointestinal: Positive for constipation. 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 Constitutional: Appearance: Normal appearance. She is normal weight. Comments: Flat mood HENT: Mouth/Throat: Mouth: Mucous membranes are moist. Eyes: General: No scleral icterus. Extraocular Movements: Extraocular movements intact. Pupils: Pupils are equal, round, and reactive to light. Comments: Pupils 3mm bilaterally Cardiovascular: Rate and Rhythm: Normal rate and regular rhythm. Pulses: Normal pulses. Pulmonary: Effort: Pulmonary effort is normal. No respiratory distress. Breath sounds: Normal breath sounds. No wheezing or rales. Comments: Breathing with mouth open Abdominal: General: Abdomen is flat. There is no distension. Tenderness: There is no abdominal tenderness. Musculoskeletal: General: Normal range of motion. Right lower leg: No edema. Left lower leg: No edema. Skin: General: Skin is warm. Coloration: Skin is pale. Findings: No rash. Neurological: General: No focal deficit present. Mental Status: She is alert and oriented to person, place, and time. Cranial Nerves: No cranial nerve deficit. Sensory: No sensory deficit. Psychiatric: Mood and Affect: Mood normal. Behavior: Behavior normal. ECO - Restricted in physically strenuous activity but ambulatory and able to carry out work of a light or sedentary nature, e.g., light house work, office work PPS:60-70 Data Reviewed and Summarized Opiate Prescribing OARRS was reviewed and is supportive of the care plan. Controlled Substance Agreement Form completed in past 12 months: yes OARRS Report Review: Report reviewed Toxicology Screen: ordered today at [facility] The qualifying diagnosis iscancer The duration of opioid prescription is longer than 7 days because malignancy This patient requires opioid dosage greater than 30 oral morphine equivalents due to advanced malignancy and symptoms could not be controlled with non-opioid alternatives alone or with lower doses ofopiates. Planned duration of therapy: indefinite due to terminal illness and progressive cancer Attempts made to wean opiate therapy made: No- patient is using frequent PRN doses and this is not indicatedOpiate Risk Assessment Tool SOAPP given yes SOAPP score: <7, low risk Red Flags for Abuse or Diversion: None Identified Results/Verification of Data Review Objective data reviewed: Labs: Lab Results Component Value Date WBC 8.0 03/11/2024 HGB 15.1 03/11/2024 HCT 45.0 03/11/2024 MCV 93.2 03/11/2024 PLT 248 03/11/2024 Lab Results Component Value Date NA 135 08/19/2022 K 5.0 08/19/2022 CL 105 08/19/2022 CO2 29 03/11/2024 BUN 9 03/11/2024 CREATININE 0.65 03/11/2024 GLUCOSE 165 (H) 03/11/2024 CALCIUM 10.0 03/11/2024 PROT 6.8 03/11/2024 BILITOT 0.7 03/11/2024 ALKPHOS 68 03/11/2024 AST 14 03/11/2024 ALT 18 03/11/2024 LABGLOM 70 09/05/2021 AGRATIO 1.8 03/11/2024 GLOB 2.4 03/11/2024 No results found for: PSA, CEA, CA125, UA2667, CA199 documented in this [facility]12-19-2024 Instructions* Patient Instructions* MERRICK Ansari CNP - 04/08/2024 1:00 PM EST Please call Dr. Andrade's office at [phone] to schedule follow up re: UTI and blood sugars Please contact Central Scheduling at [phone] Friday- Friday 730a to 6p and Saturdays 9a to 1p. documented in this [facility]12-09-2024 Telephone encounter Note* Telephone Encounter - MERRICK Ansari CNP - 03/29/2024 12:18 PM EST Prescription Refill Request Patient Name: Danny Bobo Richard PCP: Donovan Hernandez Past Medical History: Past Medical History: Diagnosis Date Anemia LOW IRON DUE TO BLEEDING Asthma Cerebral artery occlusion with cerebral infarction (HCC) Diabetes (HCC) Endometrial adenocarcinoma (CMS/HCC) (HCC) FIGO GRADE 2 GERD (gastroesophageal reflux disease) Glaucoma 2014 Hx of blood clots Hypertension Mini stroke 2014 Thrombotic. Affected short term memory, had to relearn things, locations. Past Surgical History: Past Surgical History: Procedure Laterality Date CATARACT EXTRACTION Left CATARACT EXTRACTION W/ INTRAOCULAR LENS IMPLANT Right 07/09/2021 SECTION (HISTORICAL) x2. Pfannenstiel incisions. COLONOSCOPY DILATION AND CURETTAGE OF UTERUS 12/19/2017 Dr Brittny [facility] ENDOMETRIAL BIOPSY IR CVC MEDIPORT PLACEMENT OTHER SURGICAL HISTORY 12/09/2019 Robotic Fe-Aortic Biopsy TONSILLECTOMY (HISTORICAL) TOTAL ABDOMINAL HYSTERECTOMY 01/19/2018 Robotic hysterectomy, BSO, right pelvic sentinel LNB, left pelvic lymphadenectomy-Dr. Khang Tapia [facility] TUBAL LIGATION UPPER GASTROINTESTINAL ENDOSCOPY Allergies: Allergies Allergen Reactions Morphine Anaphylaxis and Shortness of breath Codeine Rash and Nausea And Vomiting Other reaction(s): Other (See Comments), Upset Stomach Problem List: does not have any pertinent problems on file. Current Medication List: Current Outpatient Medications on File Prior to Visit Medication Sig Dispense Refill albuterol 108 (90 Base) MCG/ACT inhaler Inhale 90 each if needed. aspirin 81 MG chewable tablet Chew 81 mg daily. bisacodyl (Dulcolax) 5 MG EC tablet Take 10 mg by mouth if needed. brimonidine (AlphaGAN P) 0.2 % ophthalmic solution Administer 1 drop into both eyes Nightly. calcium carbonate (Os-Papito) 1250 (500 Ca) MG chewable tablet Chew 1 tablet if needed. cholecalciferol (Vitamin D-3) 50 MCG (2000 UT) capsule Take 1 capsule (50 mcg) by mouth in the morning. 30 capsule 2 dicyclomine (Bentyl) 10 MG capsule Take 10 mg by mouth if needed. gabapentin (Neurontin) 300 MG capsule Take 1 capsule (300 mg) by mouth 2 times daily. 60 capsule 0 ketorolac (Acular) 0.5 % ophthalmic solution latanoprost (Xalatan) 0.005 % ophthalmic solution Administer 1 drop into both eyes Nightly. LORazepam (Ativan) 1 MG tablet Take 1 tablet (1 mg) by mouth every 8 hours as needed for anxiety for up to 20 days. Do not start before December 15, 2023. 60 tablet 0 LORazepam (Ativan) 1 MG tablet Take 1 tablet (1 mg) by mouth every 6 hours as needed for anxiety. 60 tablet 0 metFORMIN XR (Glucophage-XR) 500 MG 24 hr tablet Take 1,000 mg by mouth in the morning and 1,000 mgin the evening. Misc. Devices (Sitz Bath) misc Use for pain relief as needed 1 each 0 Misc. Devices (Collins Bottle/Plastic 120mL) misc Use to clean area as needed 1 each 0 naloxone (Narcan) 4 mg/0.1 mL nasal spray Administer 4 mg into affected nostril(s) if needed. ofloxacin (Ocuflox) 0.3 % ophthalmic solution ondansetron (Zofran) 8 MG tablet Take 8 mg by mouth if needed. oxyCODONE (Roxicodone) 5 MG immediate release tablet Take 5 mg by mouth. pantoprazole (ProtoNix) 40 MG EC tablet Take 40 mg by mouth if needed. prednisoLONE acetate (Pred-Forte) 1 % ophthalmic suspension prochlorperazine (Compazine) 10 MG tablet Take 1 tablet (10 mg) by mouth every 8 hours as needed for nausea or vomiting. 60 tablet 3 sennosides (Senokot) 8.6 MG tablet Take 8.6 mg by mouth in the morning and 8.6 mg in the evening. sucralfate (Carafate) 1 GM/10ML suspension Take 1 g by mouth if needed. traZODone (Desyrel) 100 MG tablet Take 1 tablet (100 mg) by mouth Nightly. 30 tablet 0 Trelegy Ellipta 200-62.5-25 MCG/ACT aerosol powder venlafaxine XR (Effexor XR) 37.5 MG 24 hr capsule Take 1 capsule (37.5 mg) by mouth daily. Do not crush or chew. 30 capsule 1 No current facility-administered medications on file prior to visit. Telephone call placed to patient. The identity and location of the patient was confirmed and informed consent for treatment through a remote examination was obtained. The patient's diagnosis was confirmed and necessity for prescribed drug was verified. Drug(s) to be refilled: Requested Prescriptions Pending Prescriptions Disp Refills LORazepam (Ativan) 1 MG tablet 60 tablet 0 Sig: Take 1 tablet (1 mg) by mouth every 6 hours as needed for anxiety. oxyCODONE (Roxicodone) 5 MG immediate release tablet 15 tablet Sig: Take 1 tablet (5 mg) by mouth. The patient has underlying conditions or contraindications which preclude continuation of the medication at this time: No, Refill provided {Put your decision support here (Optional): [id number]: If the medication(s) being refilled is (are)a controlled substance please verify the following: The person is an active patient of a licensed practitioner who is a colleague of the provider Yes Drugs are being prescribed pursuant to an on-call or cross coverage agreement {Blank single:46670::Yes, No, N/A OARRS report reviewed: Yes Referrals placed: N/A Follow-Up Care and Testing: No follow-ups on file. [id number] Miscellaneous Notes* Telephone Encounter - MERRICK Ansari CNP - 03/29/2024 12:18 PM EST Prescription Refill Request Patient Name: Danny Pink PCP: Donovan Hernandez Past Medical History: Past Medical History: Diagnosis Date Anemia LOW IRON DUE TO BLEEDING Asthma Cerebral artery occlusion with cerebral infarction (HCC) Diabetes (HCC) Endometrial adenocarcinoma (CMS/HCC) (HCC) FIGO GRADE 2 GERD (gastroesophageal reflux disease) Glaucoma 2014 Hx of blood clots Hypertension Mini stroke 2014 Thrombotic. Affected short term memory, had to relearn things, locations. Past Surgical History: Past Surgical History: Procedure Laterality Date CATARACT EXTRACTION Left CATARACT EXTRACTION W/ INTRAOCULAR LENS IMPLANT Right 07/09/2021 SECTION (HISTORICAL) x2. Pfannenstiel incisions. COLONOSCOPY DILATION AND CURETTAGE OF UTERUS 12/19/2017 Dr Brittny Gan[facility] ENDOMETRIAL BIOPSY IR CVC MEDIPORT PLACEMENT OTHER SURGICAL HISTORY 12/09/2019 Robotic Fe-Aortic Biopsy TONSILLECTOMY (HISTORICAL) TOTAL ABDOMINAL HYSTERECTOMY 01/19/2018 Robotic hysterectomy, BSO, right pelvic sentinel LNB, left pelvic lymphadenectomy-Dr. Khang Tapia [facility] TUBAL LIGATION UPPER GASTROINTESTINAL ENDOSCOPY Allergies: Allergies Allergen Reactions Morphine Anaphylaxis and Shortness of breath Codeine Rash and Nausea And Vomiting Other reaction(s): Other (See Comments), Upset Stomach Problem List: does not have any pertinent problems on file. Current Medication List: Current Outpatient Medications on File Prior to Visit Medication Sig Dispense Refill albuterol 108 (90 Base) MCG/ACT inhaler Inhale 90 each if needed. aspirin 81 MG chewable tablet Chew 81 mg daily. bisacodyl (Dulcolax) 5 MG EC tablet Take 10 mg by mouth if needed. brimonidine (AlphaGAN P) 0.2 % ophthalmic solution Administer 1 drop into both eyes Nightly. calcium carbonate (Os-Papito) 1250 (500 Ca) MG chewable tablet Chew 1 tablet if needed. cholecalciferol (Vitamin D-3) 50 MCG (2000 UT) capsule Take 1 capsule (50 mcg) by mouth in the morning. 30 capsule 2 dicyclomine (Bentyl) 10 MG capsule Take 10 mg by mouth if needed. gabapentin (Neurontin) 300 MG capsule Take 1 capsule (300 mg) by mouth 2 times daily. 60 capsule 0 ketorolac (Acular) 0.5 % ophthalmic solution latanoprost (Xalatan) 0.005 % ophthalmic solution Administer 1 drop into both eyes Nightly. LORazepam (Ativan) 1 MG tablet Take 1 tablet (1 mg) by mouth every 8 hours as needed for anxiety for up to 20 days. Do not start before December 15, 2023. 60 tablet 0 LORazepam (Ativan) 1 MG tablet Take 1 tablet (1 mg) by mouth every 6 hours as needed for anxiety. 60 tablet 0 metFORMIN XR (Glucophage-XR) 500 MG 24 hr tablet Take 1,000 mg by mouth in the morning and 1,000 mgin the evening. Misc. Devices (Sitz Bath) misc Use for pain relief as needed 1 each 0 Misc. Devices (Collins Bottle/Plastic 120mL) misc Use to clean area as needed 1 each 0 naloxone (Narcan) 4 mg/0.1 mL nasal spray Administer 4 mg into affected nostril(s) if needed. ofloxacin (Ocuflox) 0.3 % ophthalmic solution ondansetron (Zofran) 8 MG tablet Take 8 mg by mouth if needed. oxyCODONE (Roxicodone) 5 MG immediate release tablet Take 5 mg by mouth. pantoprazole (ProtoNix) 40 MG EC tablet Take 40 mg by mouth if needed. prednisoLONE acetate (Pred-Forte) 1 % ophthalmic suspension prochlorperazine (Compazine) 10 MG tablet Take 1 tablet (10 mg) by mouth every 8 hours as needed for nausea or vomiting. 60 tablet 3 sennosides (Senokot) 8.6 MG tablet Take 8.6 mg by mouth in the morning and 8.6 mg in the evening. sucralfate (Carafate) 1 GM/10ML suspension Take 1 g by mouth if needed. traZODone (Desyrel) 100 MG tablet Take 1 tablet (100 mg) by mouth Nightly. 30 tablet 0 Trelegy Ellipta 200-62.5-25 MCG/ACT aerosol powder venlafaxine XR (Effexor XR) 37.5 MG 24 hr capsule Take 1 capsule (37.5 mg) by mouth daily. Do not crush or chew. 30 capsule 1 No current facility-administered medications on file prior to visit. Telephone call placed to patient. The identity and location of the patient was confirmed and informed consent for treatment through a remote examination was obtained. The patient's diagnosis was confirmed and necessity for prescribed drug was verified. Drug(s) to be refilled: Requested Prescriptions Pending Prescriptions Disp Refills LORazepam (Ativan) 1 MG tablet 60 tablet 0 Sig: Take 1 tablet (1 mg) by mouth every 6 hours as needed for anxiety. oxyCODONE (Roxicodone) 5 MG immediate release tablet 15 tablet Sig: Take 1 tablet (5 mg) by mouth. The patient has underlying conditions or contraindications which preclude continuation of the medication at this time: No, Refill provided {Put your decision support here (Optional): [id number]: If the medication(s) being refilled is (are)a controlled substance please verify the following: The person is an active patient of a licensed practitioner who is a colleague of the provider Yes Drugs are being prescribed pursuant to an on-call or cross coverage agreement {Blank single:32543::Yes, No, N/A OARRS report reviewed: Yes Referrals placed: N/A Follow-Up Care and Testing: No follow-ups on file. * Telephone Encounter - Dena Camacho MA - 03/29/2024 11:45 AM EST Confirmed patient Name and : Yes Medication name(s) and dose(s) requested: Lorazepam (Ativan) 1 MG Tablet Oxycodone (Roxicodone) 5 MG IR Tablet Approximate number of pills available in the home: Ativan- None Left Oxycodone- 3 Tablets Left Confirmed and updated correct pharmacy: Yes Reminded patient of 3 business day refill policy on all medication refill requests: Yes Notified patient to call pharmacy to confirm prescription ready for pickup and to call office if not available within 3 business days: Yes Date of last appointment: 03/11/24 Date of next appointment: 04/08/24 [id number] Telephone encounter Note* Telephone Encounter - Dena Camacho MA - 03/29/2024 11:45 AM EST Confirmed patient Name and : Yes Medication name(s) and dose(s) requested: Lorazepam (Ativan) 1 MG Tablet Oxycodone (Roxicodone) 5 MG IR Tablet Approximate number of pills available in the home: Ativan- None Left Oxycodone- 3 Tablets Left Confirmed and updated correct pharmacy: Yes Reminded patient of 3 business day refill policy on all medication refill requests: Yes Notified patient to call pharmacy to confirm prescription ready for pickup and to call office if not available within 3 business days: Yes Date of last appointment: 03/11/24 Date of next appointment: 04/08/24 [id number] Telephone encounter Note* Telephone Encounter - Saul Rocha - 03/21/2024 2:25 PM EST We have been unable to reach your patient to schedule their testing. Test Name: PET/CT SKULL BASE TO MID THIGH 1st attempt//Study Edge message/03.21.24 KGK 1st attempt, lvm 03/19/24 Heidi [id number] Miscellaneous Notes* Telephone Encounter - Saul Rocha - 03/21/2024 2:25 PM EST We have been unable to reach your patient to schedule their testing. Test Name: PET/CT SKULL BASE TO MID THIGH 1st attempt//Study Edge message/03.21.24 KGK 1st attempt, lvm 03/19/24 Heidi documented in this encounterSSal[facility] [id number] Telephone encounter Note* Telephone Encounter - MERRICK Ansari CNP - 03/15/2024 2:15 PM EST Reviewed, eprescribed [id number] Miscellaneous Notes* Telephone Encounter - MERRICK Ansari CNP - 03/15/2024 2:15 PM EST Reviewed, eprescribed * Telephone Encounter - Dena Camacho MA - 03/15/2024 9:33 AM EST Confirmed patient Name and : Yes Medication name(s) and dose(s) requested: Lorazepam (Ativan) 1 MG Tablet Approximate number of pills available in the home: 6 Tablets Left Confirmed and updated correct pharmacy: Yes Reminded patient of 3 business day refill policy on all medication refill requests: Yes Notified patient to call pharmacy to confirm prescription ready for pickup and to call office if not available within 3 business days: Yes Date of last appointment: 03/11/24 Date of next appointment: 04/08/24 documented in this [facility]11-25-2024 Telephone encounter Note* Telephone Encounter - Dena Camacho MA - 03/15/2024 9:33 AM EST Confirmed patient Name and : Yes Medication name(s) and dose(s) requested: Lorazepam (Ativan) 1 MG Tablet Approximate number of pills available in the home: 6 Tablets Left Confirmed and updated correct pharmacy: Yes Reminded patient of 3 business day refill policy on all medication refill requests: Yes Notified patient to call pharmacy to confirm prescription ready for pickup and to call office if not available within 3 business days: Yes Date of last appointment: 03/11/24 Date of next appointment: 04/08/24 [id number] History of Present illness Narrative* Katty Jo MA - 03/11/2024 11:15 AM EST What is the most important item you want to discuss with your provider today? Stopped talking cymbalta. Made her depression worse. Stopped taking a week after starting them Complete med rec line by line. Yes Do you need refills on any medications today? No Pharmacy confirmed in Med management section. Yes * MERRICK Ansari CNP - 03/11/2024 11:15 AM EST Images from the original note were not included. [facility] [address], [address] [place] [address] Visit type: new patient, consultation Reason for Visit: Danny Pink is a 68 y.o. female with chief complaint of Pain (Joint and bone pain), Fatigue, Anxiety, Depression, Shortness of Breath, and Constipation Assessment and Plan Danny was seen today for pain, fatigue, shortness of breath, depression, anxiety and constipation. 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 Notes crushing bone pain in bilateral hips into legs and feet. On gabapentin 300 mg, but takes this intermittent for feet neuropathy. Did not tolerate gabapentin tid or cymbalta. For neuropathy use oxycodone 5-10mg po q 4h prn pain. For depression and neuropathy will start on effexor. Recurrent carcinoma of endometrium (HCC)- under care of Dr. Quiñonez, with multiple treatment lines and most recently simple partial vaginectomy. Awaiting PET scan, but could not complete at ordered date due to hyperglycemia. Current episode of depression- start on effexor. Diabetes/hyperglycemia- on metformin- but no labs done in some time-- Will order CMP and HA1C to forward to PCP. Encourage PCP visit. Endometrial cancer (CMS/HCC) (HCC)-see above - Ambulatory referral to Palliative No orders of the defined types were placed in this encounter. 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 I assume responsibility for the patient's ongoing medical care of this condition. Follow-up: 4 weeks Subjective Danny Pink is a 68 y.o. 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 Tolerated treatment well. Due for repeat imaging to assess response to treatment. PET ordered. Unfortunately, there appears to be a new isolated vaginal lesion. Had simple partial vaginectomyunder care of Dr. Quiñonez on 10/06/23. 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 Pain Associated symptoms include constipation, fatigue and shortness of breath. Fatigue Associated symptoms include fatigue. Anxiety Symptoms include shortness of breath. DepressionPatient presents with the following symptoms: shortness of breath. Shortness of Breath Constipation Danny is seen today in follow up. She notes that she has not been feeling well for the last few weeks. Notes increased need for drinking/thirtsy and increased urination. Notes that she is sleeping inthe day, awake most of the night. Notes ongoing chronic SOB with exertion. Notes that she feels unwell. She tried cymbalta for 1 week, and gabapentin tid--but had increased balance changes. Notes need help with her mood. For pain, uses 1 5mg tab po q 4h prn during the day, 2 tabs at night- using on average 8 tabs a day. Pain Assessment (If Pain Scale >0) Description: sharp and crushing Duration: year(s) Frequency:Daily Location: bones, hips into legs Alleviating Factors: pain medication Exacerbating Factors: unable to associate with any factor Effect:Change in Function and Interference with Activities, worst at night Phenix Symptom Assessment Score Phenix Symptom Assessment System Pain Score: 8 Tiredness Score: 7 Nausea Score: 3 Depression Score: 9 Anxiety Score: 9 Drowsiness Score: 7 Appetite Score: 1 Wellbeing Score: 7 Dyspnea Score: 7 Other Problem Score: 5 Assessed by:patient Review of Systems Constitutional: Positive for fatigue. Respiratory: Positive for shortness of breath. Gastrointestinal: Positive for constipation. Psychiatric/Behavioral: Positive for depression. 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 Constitutional: Appearance: Normal appearance. She is normal weight. Comments: Flat mood HENT: Mouth/Throat: Mouth: Mucous membranes are moist. Eyes: General: No scleral icterus. Extraocular Movements: Extraocular movements intact. Pupils: Pupils are equal, round, and reactive to light. Comments: Pupils 3mm bilaterally Cardiovascular: Rate and Rhythm: Normal rate and regular rhythm. Pulses: Normal pulses. Pulmonary: Effort: Pulmonary effort is normal. No respiratory distress. Breath sounds: Normal breath sounds. No wheezing or rales. Comments: Breathing with mouth open Abdominal: General: Abdomen is flat. There is no distension. Tenderness: There is no abdominal tenderness. Musculoskeletal: General: Normal range of motion. Right lower leg: No edema. Left lower leg: No edema. Skin: General: Skin is warm. Coloration: Skin is pale. Findings: No rash. Neurological: General: No focal deficit present. Mental Status: She is alert and oriented to person, place, and time. Cranial Nerves: No cranial nerve deficit. Sensory: No sensory deficit. Psychiatric: Mood and Affect: Mood normal. Behavior: Behavior normal. ECO - Restricted in physically strenuous activity but ambulatory and able to carry out work of a light or sedentary nature, e.g., light house work, office work PPS:60-70 Data Reviewed and Summarized Opiate Prescribing OARRS was reviewed and is supportive of the care plan. Controlled Substance Agreement Form completed in past 12 months: yes OARRS Report Review: Report reviewed Toxicology Screen: ordered today at [facility] The qualifying diagnosis iscancer The duration of opioid prescription is longer than 7 days because malignancy This patient requires opioid dosage greater than 30 oral morphine equivalents due to advanced malignancy and symptoms could not be controlled with non-opioid alternatives alone or with lower doses ofopiates. Planned duration of therapy: indefinite due to terminal illness and progressive cancer Attempts made to wean opiate therapy made: No- patient is using frequent PRN doses and this is not indicatedOpiate Risk Assessment Tool SOAPP given yes SOAPP score: <7, low risk Red Flags for Abuse or Diversion: None Identified Results/Verification of Data Review Objective data reviewed: Labs: Lab Results Component Value Date WBC 7.4 08/19/2022 HGB 12.3 08/19/2022 HCT 37.6 08/19/2022 MCV 89.8 08/19/2022 PLT 223 08/19/2022 Lab Results Component Value Date NA 135 08/19/2022 K 5.0 08/19/2022 CL 105 08/19/2022 CO2 22 08/19/2022 BUN 20 (H) 08/19/2022 CREATININE 0.73 08/19/2022 GLUCOSE 102 (H) 08/19/2022 CALCIUM 9.1 08/19/2022 PROT 7.0 11/28/2021 BILITOT 0.2 11/28/2021 ALKPHOS 88 11/28/2021 AST 20 11/28/2021 LABGLOM 70 09/05/2021 No results found for: PSA, CEA, CA125, WZ3838, CA199 documented in this [facility]11-18-2024 Note* Addendum Note - Sandy Morocho MD - 03/08/2024 5:26 PM ESTAddended by: SANDY MOROCHO on: 03/08/2024 05:26 PM Modules accepted: [id number] Miscellaneous Notes* Addendum Note - Sandy Morocho MD - 03/08/2024 5:26 PM ESTAddended by: SANDY MOROCHO on: 03/08/2024 05:26 PM Modules accepted: Orders * Telephone Encounter - Katty Jo MA - 03/08/2024 3:17 PM EST Confirmed patient Name and : Yes Medication name(s) and dose(s) requested: trazodone (Desyrel) 100 mg tablet Approximate number of pills available in the home: 0 tablets Confirmed and updated correct pharmacy: Yes Reminded patient of 3 business day refill policy on all medication refill requests: Yes Notified patient to call pharmacy to confirm prescription ready for pickup and to call office if not available within 3 business days: Yes Date of last appointment: 10/30/23 Date of next appointment 03/11/24 documented in this [facility]11-18-2024 Telephone encounter Note* Telephone Encounter - Katty Jo MA - 03/08/2024 3:17 PM EST Confirmed patient Name and : Yes Medication name(s) and dose(s) requested: trazodone (Desyrel) 100 mg tablet Approximate number of pills available in the home: 0 tablets Confirmed and updated correct pharmacy: Yes Reminded patient of 3 business day refill policy on all medication refill requests: Yes Notified patient to call pharmacy to confirm prescription ready for pickup and to call office if not available within 3 business days: Yes Date of last appointment: 10/30/23 Date of next appointment 03/11/24 [id number] Note* Addendum Note - MERRICK Ansari CNP - 03/01/2024 10:25 AM ESTAddended by: ALKA CASON on: 03/01/2024 10:25 AM Modules accepted: Orders [id number] Telephone encounter Note* Telephone Encounter - MERRICK Ansari CNP - 03/01/2024 10:25 AM EST Reviewed oaars.eprescribed ativan refill [id number] Miscellaneous Notes* Addendum Note - MERRICK Ansari CNP - 03/01/2024 10:25 AM ESTAddended by: ALKA CASON on: 03/01/2024 10:25 AM Modules accepted: Orders * Telephone Encounter - MERRICK Ansari CNP - 03/01/2024 10:25 AM EST Reviewed oaars.eprescribed ativan refill * Telephone Encounter - Katty Jo MA - 03/01/2024 9:03 AM EST Confirmed patient Name and : Yes Medication name(s) and dose(s) requested: Lorazepam (Ativan) 1 mg tablet Approximate number of pills available in the home: 1 tablet left Confirmed and updated correct pharmacy: Yes Reminded patient of 3 business day refill policy on all medication refill requests: Yes Notified patient to call pharmacy to confirm prescription ready for pickup and to call office if not available within 3 business days: Yes Date of last appointment: 10/30/23 Date of next appointment: 03/11/24 documented in this [facility]11-11-2024 Telephone encounter Note* Telephone Encounter - Katty Jo MA - 03/01/2024 9:03 AM EST Confirmed patient Name and : Yes Medication name(s) and dose(s) requested: Lorazepam (Ativan) 1 mg tablet Approximate number of pills available in the home: 1 tablet left Confirmed and updated correct pharmacy: Yes Reminded patient of 3 business day refill policy on all medication refill requests: Yes Notified patient to call pharmacy to confirm prescription ready for pickup and to call office if not available within 3 business days: Yes Date of last appointment: 10/30/23 Date of next appointment: 03/11/24 [id number]* Addendum Note - MERRICK Ansari CNP - 02/23/2024 1:51 PM ESTAddended by: ALKA CASON on: 02/23/2024 01:51 PM Modules accepted: Orders [place] [id number] Note* Addendum Note - MERRICK Ansari CNP - 02/23/2024 1:51 PM ESTAddended by: ALKA CASON on: 02/23/2024 01:51 PM Modules accepted: Orders [place] [id number] Miscellaneous Notes* Addendum Note - MERRICK Ansari CNP - 02/23/2024 1:51 PM ESTAddended by: ALKA CASON on: 02/23/2024 01:51 PM Modules accepted: Orders * Telephone Encounter - MERRICK Ansari CNP - 02/23/2024 1:49 PM EST Please let her know that we will not be able to refill meds until 02/28. Thanks. * Telephone Encounter - Katty Jo MA - 02/23/2024 1:26 PM EST Informed pt this medication is not due until the . Pt stated she must've taken too many Confirmed patient Name and : Yes Medication name(s) and dose(s) requested: Oxycodone (Roxicodone) 5 mg ir tablet Approximate number of pills available in the home: 6 tablets left Confirmed and updated correct pharmacy: Yes Reminded patient of 3 business day refill policy on all medication refill requests: Yes Notified patient to call pharmacy to confirm prescription ready for pickup and to call office if not available within 3 business days: Yes Date of last appointment: 10/30/23 Date of next appointment: 03/11/24 documented in this [facility]11-04-2024 Telephone encounter Note* Telephone Encounter - MERRICK Ansari CNP - 02/23/2024 1:49 PM EST Please let her know that we will not be able to refill meds until 02/28. Thanks. [id number] Telephone encounter Note* Telephone Encounter - Katty Jo MA - 02/23/2024 1:26 PM EST Informed pt this medication is not due until the . Pt stated she must've taken too many Confirmed patient Name and : Yes Medication name(s) and dose(s) requested: Oxycodone (Roxicodone) 5 mg ir tablet Approximate number of pills available in the home: 6 tablets left Confirmed and updated correct pharmacy: Yes Reminded patient of 3 business day refill policy on all medication refill requests: Yes Notified patient to call pharmacy to confirm prescription ready for pickup and to call office if not available within 3 business days: Yes Date of last appointment: 10/30/23 Date of next appointment: 03/11/24 [id number] [facility]* Addendum Note - MERRICK Ansari CNP - 02/18/2024 10:13 AM EDTAddended by: ALKA CASON on: 02/18/2024 10:13 AM Modules accepted: [id number] Miscellaneous Notes* Addendum Note - MERRICK Ansari CNP - 02/18/2024 10:13 AM EDTAddended by: ALKA CASON on: 02/18/2024 10:13 AM Modules accepted: Orders * Telephone Encounter - MERRICK Ansari CNP - 02/18/2024 10:12 AM EDT Prescription Refill Request Patient Name: Danny Pink PCP: Donovan Hernandez Past Medical History: Past Medical History: Diagnosis Date Anemia LOW IRON DUE TO BLEEDING Asthma Cerebral artery occlusion with cerebral infarction (HCC) Diabetes (HCC) Endometrial adenocarcinoma (CMS/HCC) (HCC) FIGO GRADE 2 GERD (gastroesophageal reflux disease) Glaucoma 2014 Hx of blood clots Hypertension Mini stroke 2014 Thrombotic. Affected short term memory, had to relearn things, locations. Past Surgical History: Past Surgical History: Procedure Laterality Date CATARACT EXTRACTION Left CATARACT EXTRACTION W/ INTRAOCULAR LENS IMPLANT Right 07/09/2021 SECTION (HISTORICAL) x2. Pfannenstiel incisions. COLONOSCOPY DILATION AND CURETTAGE OF UTERUS 12/19/2017 Dr Brittny Gan[facility] ENDOMETRIAL BIOPSY IR CVC MEDIPORT PLACEMENT OTHER SURGICAL HISTORY 12/09/2019 Robotic Fe-Aortic Biopsy TONSILLECTOMY (HISTORICAL) TOTAL ABDOMINAL HYSTERECTOMY 01/19/2018 Robotic hysterectomy, BSO, right pelvic sentinel LNB, left pelvic lymphadenectomy-Dr. Khang Tapia [facility] TUBAL LIGATION UPPER GASTROINTESTINAL ENDOSCOPY Allergies: Allergies Allergen Reactions Morphine Anaphylaxis and Shortness of breath Codeine Rash and Nausea And Vomiting Other reaction(s): Other (See Comments), Upset Stomach Problem List: does not have any pertinent problems on file. Current Medication List: Current Outpatient Medications on File Prior to Visit Medication Sig Dispense Refill albuterol 108 (90 Base) MCG/ACT inhaler Inhale 90 each if needed. aspirin 81 MG chewable tablet Chew 81 mg daily. bisacodyl (Dulcolax) 5 MG EC tablet Take 10 mg by mouth if needed. brimonidine (AlphaGAN P) 0.2 % ophthalmic solution Administer 1 drop into both eyes Nightly. calcium carbonate (Os-Papito) 1250 (500 Ca) MG chewable tablet Chew 1 tablet if needed. cholecalciferol (Vitamin D-3) 50 MCG (2000 UT) capsule Take 1 capsule (50 mcg) by mouth in the morning. 30 capsule 2 dicyclomine (Bentyl) 10 MG capsule Take 10 mg by mouth if needed. DULoxetine (Cymbalta) [address] capsule Take 1 capsule (30 mg) by mouth 2 times daily. Do not crush or chew. 60 capsule 5 gabapentin (Neurontin) 300 MG capsule Take 1 capsule (300 mg) by mouth 3 times daily. 90 capsule 0 ketorolac (Acular) 0.5 % ophthalmic solution latanoprost (Xalatan) 0.005 % ophthalmic solution Administer 1 drop into both eyes Nightly. LORazepam (Ativan) 1 MG tablet Take 1 tablet (1 mg) by mouth every 8 hours as needed for anxiety for up to 20 days. Do not start before December 15, 2023. 60 tablet 0 LORazepam (Ativan) 1 MG tablet Take 1 tablet (1 mg) by mouth every 6 hours as needed for anxiety. 60 tablet 0 metFORMIN XR (Glucophage-XR) 500 MG 24 hr tablet Take 1,000 mg by mouth in the morning and 1,000 mgin the evening. Misc. Devices (Sitz Bath) misc Use for pain relief as needed 1 each 0 Misc. Devices (Collins Bottle/Plastic 120mL) misc Use to clean area as needed 1 each 0 naloxone (Narcan) 4 mg/0.1 mL nasal spray Administer 4 mg into affected nostril(s) if needed. ofloxacin (Ocuflox) 0.3 % ophthalmic solution ondansetron (Zofran) 8 MG tablet Take 8 mg by mouth if needed. oxyCODONE (Roxicodone) 5 MG immediate release tablet Take 1 tablet (5 mg) by mouth every 4 hours asneeded for severe pain (7-10) for up to 20 days. 120 tablet 0 pantoprazole (ProtoNix) 40 MG EC tablet Take 40 mg by mouth if needed. prednisoLONE acetate (Pred-Forte) 1 % ophthalmic suspension prochlorperazine (Compazine) 10 MG tablet Take 1 tablet (10 mg) by mouth every 8 hours as needed for nausea or vomiting. 60 tablet 3 sennosides (Senokot) 8.6 MG tablet Take 8.6 mg by mouth in the morning and 8.6 mg in the evening. sucralfate (Carafate) 1 GM/10ML suspension Take 1 g by mouth if needed. traZODone (Desyrel) 100 MG tablet Take 1 tablet (100 mg) by mouth Nightly. 30 tablet 0 Trelegy Ellipta 200-62.5-25 MCG/ACT aerosol powder No current facility-administered medications on file prior to visit. Telephone call placed to patient. The identity and location of the patient was confirmed and informed consent for treatment through a remote examination was obtained. The patient's diagnosis was confirmed and necessity for prescribed drug was verified. Drug(s) to be refilled: Requested Prescriptions No prescriptions requested or ordered in this encounter The patient has underlying conditions or contraindications which preclude continuation of the medication at this time: No, Refill provided {Put your decision support here (Optional): [id number]: If the medication(s) being refilled is (are)a controlled substance please verify the following: The person is an active patient of a licensed practitioner who is a colleague of the provider Yes Drugs are being prescribed pursuant to an on-call or cross coverage agreement {Blank single:75210::Yes, No, N/A OARRS report reviewed: Yes Referrals placed: N/A Follow-Up Care and Testing: No follow-ups on file. * Telephone Encounter - Katty oJ MA - 02/17/2024 2:31 PM EDT Confirmed patient Name and : Yes Medication name(s) and dose(s) requested: Lorazepam (Ativan) 1 mg tablet Approximate number of pills available in the home: 0 tablets left Confirmed and updated correct pharmacy: Yes Reminded patient of 3 business day refill policy on all medication refill requests: Yes Notified patient to call pharmacy to confirm prescription ready for pickup and to call office if not available within 3 business days: Yes Date of last appointment: 10/30/23 Date of next appointment: 03/11/24 documented in this [facility]10-30-2024 Telephone encounter Note* Telephone Encounter - MERRICK Ansari CNP - 02/18/2024 10:12 AM EDT Prescription Refill Request Patient Name: Danny Jeramie Richard PCP: Donovan Hernandez Past Medical History: Past Medical History: Diagnosis Date Anemia LOW IRON DUE TO BLEEDING Asthma Cerebral artery occlusion with cerebral infarction (HCC) Diabetes (HCC) 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 Affected short term memory, had to relearn things, locations. Past Surgical History: Past Surgical History: Procedure Laterality Date CATARACT EXTRACTION Left CATARACT EXTRACTION W/ INTRAOCULAR LENS IMPLANT Right 07/09/2021 SECTION (HISTORICAL) x2. Pfannenstiel incisions. COLONOSCOPY DILATION AND CURETTAGE OF UTERUS 12/19/2017 Dr Brittny Gan[facility] ENDOMETRIAL BIOPSY IR CVC MEDIPORT PLACEMENT OTHER SURGICAL HISTORY 12/09/2019 Robotic Fe-Aortic Biopsy TONSILLECTOMY (HISTORICAL) TOTAL ABDOMINAL HYSTERECTOMY 01/19/2018 Robotic hysterectomy, BSO, right pelvic sentinel LNB, left pelvic lymphadenectomy-Dr. Khang Tapia [facility] TUBAL LIGATION UPPER GASTROINTESTINAL ENDOSCOPY Allergies: Allergies Allergen Reactions Morphine Anaphylaxis and Shortness of breath Codeine Rash and Nausea And Vomiting Other reaction(s): Other (See Comments), Upset Stomach Problem List: does not have any pertinent problems on file. Current Medication List: Current Outpatient Medications on File Prior to Visit Medication Sig Dispense Refill albuterol 108 (90 Base) MCG/ACT inhaler Inhale 90 each if needed. aspirin 81 MG chewable tablet Chew 81 mg daily. bisacodyl (Dulcolax) 5 MG EC tablet Take 10 mg by mouth if needed. brimonidine (AlphaGAN P) 0.2 % ophthalmic solution Administer 1 drop into both eyes Nightly. calcium carbonate (Os-Papito) 1250 (500 Ca) MG chewable tablet Chew 1 tablet if needed. cholecalciferol (Vitamin D-3) 50 MCG (2000 UT) capsule Take 1 capsule (50 mcg) by mouth in the morning. 30 capsule 2 dicyclomine (Bentyl) 10 MG capsule Take 10 mg by mouth if needed. DULoxetine (Cymbalta) [address] capsule Take 1 capsule (30 mg) by mouth 2 times daily. Do not crush or chew. 60 capsule 5 gabapentin (Neurontin) 300 MG capsule Take 1 capsule (300 mg) by mouth 3 times daily. 90 capsule 0 ketorolac (Acular) 0.5 % ophthalmic solution latanoprost (Xalatan) 0.005 % ophthalmic solution Administer 1 drop into both eyes Nightly. LORazepam (Ativan) 1 MG tablet Take 1 tablet (1 mg) by mouth every 8 hours as needed for anxiety for up to 20 days. Do not start before December 15, 2023. 60 tablet 0 LORazepam (Ativan) 1 MG tablet Take 1 tablet (1 mg) by mouth every 6 hours as needed for anxiety. 60 tablet 0 metFORMIN XR (Glucophage-XR) 500 MG 24 hr tablet Take 1,000 mg by mouth in the morning and 1,000 mgin the evening. Misc. Devices (Sitz Bath) misc Use for pain relief as needed 1 each 0 Misc. Devices (Collins Bottle/Plastic 120mL) misc Use to clean area as needed 1 each 0 naloxone (Narcan) 4 mg/0.1 mL nasal spray Administer 4 mg into affected nostril(s) if needed. ofloxacin (Ocuflox) 0.3 % ophthalmic solution ondansetron (Zofran) 8 MG tablet Take 8 mg by mouth if needed. oxyCODONE (Roxicodone) 5 MG immediate release tablet Take 1 tablet (5 mg) by mouth every 4 hours asneeded for severe pain (7-10) for up to 20 days. 120 tablet 0 pantoprazole (ProtoNix) 40 MG EC tablet Take 40 mg by mouth if needed. prednisoLONE acetate (Pred-Forte) 1 % ophthalmic suspension prochlorperazine (Compazine) 10 MG tablet Take 1 tablet (10 mg) by mouth every 8 hours as needed for nausea or vomiting. 60 tablet 3 sennosides (Senokot) 8.6 MG tablet Take 8.6 mg by mouth in the morning and 8.6 mg in the evening. sucralfate (Carafate) 1 GM/10ML suspension Take 1 g by mouth if needed. traZODone (Desyrel) 100 MG tablet Take 1 tablet (100 mg) by mouth Nightly. 30 tablet 0 Trelegy Ellipta 200-62.5-25 MCG/ACT aerosol powder No current facility-administered medications on file prior to visit. Telephone call placed to patient. The identity and location of the patient was confirmed and informed consent for treatment through a remote examination was obtained. The patient's diagnosis was confirmed and necessity for prescribed drug was verified. Drug(s) to be refilled: Requested Prescriptions No prescriptions requested or ordered in this encounter The patient has underlying conditions or contraindications which preclude continuation of the medication at this time: No, Refill provided {Put your decision support here (Optional): [id number]: If the medication(s) being refilled is (are)a controlled substance please verify the following: The person is an active patient of a licensed practitioner who is a colleague of the provider Yes Drugs are being prescribed pursuant to an on-call or cross coverage agreement {Blank single:31328::Yes, No, N/A OARRS report reviewed: Yes Referrals placed: N/A Follow-Up Care and Testing: No follow-ups on file. [id number] Telephone encounter Note* Telephone Encounter - Katty Jo MA - 02/17/2024 2:31 PM EDT Confirmed patient Name and : Yes Medication name(s) and dose(s) requested: Lorazepam (Ativan) 1 mg tablet Approximate number of pills available in the home: 0 tablets left Confirmed and updated correct pharmacy: Yes Reminded patient of 3 business day refill policy on all medication refill requests: Yes Notified patient to call pharmacy to confirm prescription ready for pickup and to call office if not available within 3 business days: Yes Date of last appointment: 10/30/23 Date of next appointment: 03/11/24 [facility] [id number] Telephone encounter Note* Telephone Encounter - MERRICK Ansari CNP - 02/09/2024 10:17 AM EDT Prescription Refill Request Patient Name: Danny Pink PCP: Donovan Hernandez Past Medical History: Past Medical History: Diagnosis Date Anemia LOW IRON DUE TO BLEEDING Asthma Cerebral artery occlusion with cerebral infarction (HCC) Diabetes (HCC) 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 Affected short term memory, had to relearn things, locations. Past Surgical History: Past Surgical History: Procedure Laterality Date CATARACT EXTRACTION Left CATARACT EXTRACTION W/ INTRAOCULAR LENS IMPLANT Right 07/09/2021 SECTION (HISTORICAL) x2. Pfannenstiel incisions. COLONOSCOPY DILATION AND CURETTAGE OF UTERUS 12/19/2017 Dr Brittny Gan[facility] ENDOMETRIAL BIOPSY IR CVC MEDIPORT PLACEMENT OTHER SURGICAL HISTORY 12/09/2019 Robotic Fe-Aortic Biopsy TONSILLECTOMY (HISTORICAL) TOTAL ABDOMINAL HYSTERECTOMY 01/19/2018 Robotic hysterectomy, BSO, right pelvic sentinel LNB, left pelvic lymphadenectomy-Dr. Khang Taipa [facility] TUBAL LIGATION UPPER GASTROINTESTINAL ENDOSCOPY Allergies: Allergies Allergen Reactions Morphine Anaphylaxis and Shortness of breath Codeine Rash and Nausea And Vomiting Other reaction(s): Other (See Comments), Upset Stomach Problem List: does not have any pertinent problems on file. Current Medication List: Current Outpatient Medications on File Prior to Visit Medication Sig Dispense Refill albuterol 108 (90 Base) MCG/ACT inhaler Inhale 90 each if needed. aspirin 81 MG chewable tablet Chew 81 mg daily. bisacodyl (Dulcolax) 5 MG EC tablet Take 10 mg by mouth if needed. brimonidine (AlphaGAN P) 0.2 % ophthalmic solution Administer 1 drop into both eyes Nightly. calcium carbonate (Os-Papito) 1250 (500 Ca) MG chewable tablet Chew 1 tablet if needed. cholecalciferol (Vitamin D-3) 50 MCG (2000 UT) capsule Take 1 capsule (50 mcg) by mouth in the morning. 30 capsule 2 dicyclomine (Bentyl) 10 MG capsule Take 10 mg by mouth if needed. DULoxetine (Cymbalta) [address] capsule Take 1 capsule (30 mg) by mouth 2 times daily. Do not crush or chew. 60 capsule 5 gabapentin (Neurontin) 300 MG capsule Take 1 capsule (300 mg) by mouth 3 times daily. 90 capsule 0 ketorolac (Acular) 0.5 % ophthalmic solution latanoprost (Xalatan) 0.005 % ophthalmic solution Administer 1 drop into both eyes Nightly. LORazepam (Ativan) 1 MG tablet Take 1 tablet (1 mg) by mouth every 8 hours as needed for anxiety for up to 20 days. Do not start before December 15, 2023. 60 tablet 0 LORazepam (Ativan) 1 MG tablet Take 1 tablet (1 mg) by mouth every 6 hours as needed for anxiety. 60 tablet 0 metFORMIN XR (Glucophage-XR) 500 MG 24 hr tablet Take 1,000 mg by mouth in the morning and 1,000 mgin the evening. Misc. Devices (Sitz Bath) misc Use for pain relief as needed 1 each 0 Misc. Devices (Collins Bottle/Plastic 120mL) misc Use to clean area as needed 1 each 0 naloxone (Narcan) 4 mg/0.1 mL nasal spray Administer 4 mg into affected nostril(s) if needed. ofloxacin (Ocuflox) 0.3 % ophthalmic solution ondansetron (Zofran) 8 MG tablet Take 8 mg by mouth if needed. oxyCODONE (Roxicodone) 5 MG immediate release tablet Take 1 tablet (5 mg) by mouth every 4 hours asneeded for severe pain (7-10) for up to 20 days. 120 tablet 0 pantoprazole (ProtoNix) 40 MG EC tablet Take 40 mg by mouth if needed. prednisoLONE acetate (Pred-Forte) 1 % ophthalmic suspension prochlorperazine (Compazine) 10 MG tablet Take 1 tablet (10 mg) by mouth every 8 hours as needed for nausea or vomiting. 60 tablet 3 sennosides (Senokot) 8.6 MG tablet Take 8.6 mg by mouth in the morning and 8.6 mg in the evening. sucralfate (Carafate) 1 GM/10ML suspension Take 1 g by mouth if needed. traZODone (Desyrel) 100 MG tablet Take 1 tablet (100 mg) by mouth Nightly. 30 tablet 0 Trelegy Ellipta 200-62.5-25 MCG/ACT aerosol powder No current facility-administered medications on file prior to visit. Telephone call placed to patient. The identity and location of the patient was confirmed and informed consent for treatment through a remote examination was obtained. The patient's diagnosis was confirmed and necessity for prescribed drug was verified. Drug(s) to be refilled: Requested Prescriptions No prescriptions requested or ordered in this encounter The patient has underlying conditions or contraindications which preclude continuation of the medication at this time: No, Refill provided {Put your decision support here (Optional): [id number]: If the medication(s) being refilled is (are)a controlled substance please verify the following: The person is an active patient of a licensed practitioner who is a colleague of the provider Yes Drugs are being prescribed pursuant to an on-call or cross coverage agreement {Blank single:49049::Yes, No, N/A OARRS report reviewed: Yes Referrals placed: N/A Follow-Up Care and Testing: No follow-ups on file. [facility]10-21-2024 Miscellaneous Notes* Telephone Encounter - Alka Cason, THERMAL INTELLIGENCE ANALYST - MEDICAL ASSISTANT SUPERVISOR - 02/09/2024 10:17 AM EDT Prescription Refill Request Patient Name: Danny Pink PCP: Donovan Hernandez Past Medical History: Past Medical History: Diagnosis Date Anemia LOW IRON DUE TO BLEEDING Asthma Cerebral artery occlusion with cerebral infarction (HCC) Diabetes (HCC) Endometrial adenocarcinoma (CMS/HCC) (HCC) FIGO GRADE 2 GERD (gastroesophageal reflux disease) Glaucoma 2014 Hx of blood clots Hypertension Mini stroke 2014 Thrombotic. Affected short term memory, had to relearn things, locations. Past Surgical History: Past Surgical History: Procedure Laterality Date CATARACT EXTRACTION Left CATARACT EXTRACTION W/ INTRAOCULAR LENS IMPLANT Right 07/09/2021 SECTION (HISTORICAL) x2. Pfannenstiel incisions. COLONOSCOPY DILATION AND CURETTAGE OF UTERUS 12/19/2017 Dr Brittny Gan[facility] ENDOMETRIAL BIOPSY IR CVC MEDIPORT PLACEMENT OTHER SURGICAL HISTORY 12/09/2019 Robotic Fe-Aortic Biopsy TONSILLECTOMY (HISTORICAL) TOTAL ABDOMINAL HYSTERECTOMY 01/19/2018 Robotic hysterectomy, BSO, right pelvic sentinel LNB, left pelvic lymphadenectomy-Dr. Khang Tapia [facility] TUBAL LIGATION UPPER GASTROINTESTINAL ENDOSCOPY Allergies: Allergies Allergen Reactions Morphine Anaphylaxis and Shortness of breath Codeine Rash and Nausea And Vomiting Other reaction(s): Other (See Comments), Upset Stomach Problem List: does not have any pertinent problems on file. Current Medication List: Current Outpatient Medications on File Prior to Visit Medication Sig Dispense Refill albuterol 108 (90 Base) MCG/ACT inhaler Inhale 90 each if needed. aspirin 81 MG chewable tablet Chew 81 mg daily. bisacodyl (Dulcolax) 5 MG EC tablet Take 10 mg by mouth if needed. brimonidine (AlphaGAN P) 0.2 % ophthalmic solution Administer 1 drop into both eyes Nightly. calcium carbonate (Os-Papito) 1250 (500 Ca) MG chewable tablet Chew 1 tablet if needed. cholecalciferol (Vitamin D-3) 50 MCG (2000 UT) capsule Take 1 capsule (50 mcg) by mouth in the morning. 30 capsule 2 dicyclomine (Bentyl) 10 MG capsule Take 10 mg by mouth if needed. DULoxetine (Cymbalta) [address] capsule Take 1 capsule (30 mg) by mouth 2 times daily. Do not crush or chew. 60 capsule 5 gabapentin (Neurontin) 300 MG capsule Take 1 capsule (300 mg) by mouth 3 times daily. 90 capsule 0 ketorolac (Acular) 0.5 % ophthalmic solution latanoprost (Xalatan) 0.005 % ophthalmic solution Administer 1 drop into both eyes Nightly. LORazepam (Ativan) 1 MG tablet Take 1 tablet (1 mg) by mouth every 8 hours as needed for anxiety for up to 20 days. Do not start before December 15, 2023. 60 tablet 0 LORazepam (Ativan) 1 MG tablet Take 1 tablet (1 mg) by mouth every 6 hours as needed for anxiety. 60 tablet 0 metFORMIN XR (Glucophage-XR) 500 MG 24 hr tablet Take 1,000 mg by mouth in the morning and 1,000 mgin the evening. Misc. Devices (Sitz Bath) misc Use for pain relief as needed 1 each 0 Misc. Devices (Collins Bottle/Plastic 120mL) misc Use to clean area as needed 1 each 0 naloxone (Narcan) 4 mg/0.1 mL nasal spray Administer 4 mg into affected nostril(s) if needed. ofloxacin (Ocuflox) 0.3 % ophthalmic solution ondansetron (Zofran) 8 MG tablet Take 8 mg by mouth if needed. oxyCODONE (Roxicodone) 5 MG immediate release tablet Take 1 tablet (5 mg) by mouth every 4 hours asneeded for severe pain (7-10) for up to 20 days. 120 tablet 0 pantoprazole (ProtoNix) 40 MG EC tablet Take 40 mg by mouth if needed. prednisoLONE acetate (Pred-Forte) 1 % ophthalmic suspension prochlorperazine (Compazine) 10 MG tablet Take 1 tablet (10 mg) by mouth every 8 hours as needed for nausea or vomiting. 60 tablet 3 sennosides (Senokot) 8.6 MG tablet Take 8.6 mg by mouth in the morning and 8.6 mg in the evening. sucralfate (Carafate) 1 GM/10ML suspension Take 1 g by mouth if needed. traZODone (Desyrel) 100 MG tablet Take 1 tablet (100 mg) by mouth Nightly. 30 tablet 0 Trelegy Ellipta 200-62.5-25 MCG/ACT aerosol powder No current facility-administered medications on file prior to visit. Telephone call placed to patient. The identity and location of the patient was confirmed and informed consent for treatment through a remote examination was obtained. The patient's diagnosis was confirmed and necessity for prescribed drug was verified. Drug(s) to be refilled: Requested Prescriptions No prescriptions requested or ordered in this encounter The patient has underlying conditions or contraindications which preclude continuation of the medication at this time: No, Refill provided {Put your decision support here (Optional): [id number]: If the medication(s) being refilled is (are)a controlled substance please verify the following: The person is an active patient of a licensed practitioner who is a colleague of the provider Yes Drugs are being prescribed pursuant to an on-call or cross coverage agreement {Blank single:21883::Yes, No, N/A OARRS report reviewed: Yes Referrals placed: N/A Follow-Up Care and Testing: No follow-ups on file. * Telephone Encounter - Katty Jo MA - 02/09/2024 8:46 AM EDT Confirmed patient Name and : Yes Medication name(s) and dose(s) requested: Oxycodone (Roxicodone) 5 mg IR tablet Trazadone (Desyrel) 100 mg tablet Approximate number of pills available in the home: 3 tablets left 0 tablets left Confirmed and updated correct pharmacy: Yes Reminded patient of 3 business day refill policy on all medication refill requests: Yes Notified patient to call pharmacy to confirm prescription ready for pickup and to call office if not available within 3 business days: Yes Date of last appointment: 10/30/2023 Date of next appointment: 03/11/24 Pt stated last Rx said she could take 1-2 tabs if needed, please advise. documented in this [facility]10-21-2024 Telephone encounter Note* Telephone Encounter - Katty Jo MA - 02/09/2024 8:46 AM EDT Confirmed patient Name and : Yes Medication name(s) and dose(s) requested: Oxycodone (Roxicodone) 5 mg IR tablet Trazadone (Desyrel) 100 mg tablet Approximate number of pills available in the home: 3 tablets left 0 tablets left Confirmed and updated correct pharmacy: Yes Reminded patient of 3 business day refill policy on all medication refill requests: Yes Notified patient to call pharmacy to confirm prescription ready for pickup and to call office if not available within 3 business days: Yes Date of last appointment: 10/30/2023 Date of next appointment: 03/11/24 Pt stated last Rx said she could take 1-2 tabs if needed, please advise. [id number] Telephone encounter Note* Telephone Encounter - MERRICK Ansari CNP - 02/02/2024 1:33 PM EDT Reviewed oaars.eprescribed. [id number] Miscellaneous Notes* Telephone Encounter - MERRICK Ansari CNP - 02/02/2024 1:33 PM EDT Reviewed oaars.eprescribed. * Telephone Encounter - Dena Camacho MA - 02/02/2024 11:22 AM EDT Confirmed patient Name and : Yes Medication name(s) and dose(s) requested: Lorazepam (Ativan) 1 MG Tablet Approximate number of pills available in the home: Ativan- 3 Tablets Left Confirmed and updated correct pharmacy: Yes Reminded patient of 3 business day refill policy on all medication refill requests: Yes Notified patient to call pharmacy to confirm prescription ready for pickup and to call office if not available within 3 business days: Yes Date of last appointment: 10/30/23 Date of next appointment: 03/11/24 documented in this [facility]10-14-2024 Telephone encounter Note* Telephone Encounter - Dena Camacho MA - 02/02/2024 11:22 AM EDT Confirmed patient Name and : Yes Medication name(s) and dose(s) requested: Lorazepam (Ativan) 1 MG Tablet Approximate number of pills available in the home: Ativan- 3 Tablets Left Confirmed and updated correct pharmacy: Yes Reminded patient of 3 business day refill policy on all medication refill requests: Yes Notified patient to call pharmacy to confirm prescription ready for pickup and to call office if not available within 3 business days: Yes Date of last appointment: 10/30/23 Date of next appointment: 03/11/24 [id number] History of Present illness Narrative* Danny Vasquez MD - 01/29/2024 11:00 AM EDT Images from the original note were not included. Chief Complaint Patient presents with Endometrial Cancer Follow-up HISTORY OF THE PRESENT ILLNESS: Danny Pink is a pleasant 68 y.o. female with recurrent endometrial cancer. She has a history of stage IB, FIGO grade 2 endometrioid endometrial adenocarcinoma, +LVSI, +washings, MMR protein testing normal. She underwent robotic endometrial cancer staging on 01/19/2018. Met diagnostic criteria for high-intermediate risk of recurrence. Completed pelvic radiation on 04/27/18. Unfortunately, the patient complained of new onset of back pain in September 2019. She underwent a computed tomography scan of the abdomen and pelvis which showed an enlarged left periaortic lymph node. PET scan confirmed that this was a focus of FDG avidity. There were no other sites of metastatic disease on the PET scan. Management options were discussed with the patient at length. We elected to proceed with an attempt at surgical resection. She underwent attempted robotic resection of the left periaortic lymph node on 12/09/2019. Unfortunately, there was evidence of extracapsular extension of disease and the lymph node was matted and densely adherent to the abdominal aorta. There is no way tocompletely surgically resect the disease. Biopsies were obtained confirming the diagnosis. Patient was started on systemic chemotherapy with carboplatin and paclitaxel. Patient completed cycle #6 carbo/taxol on 04/19/2020. She was on a reduced dose of Taxol 135 mg/m2 due to arthralgias and myalgias. 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 I recommended 3 additional cycles of chemotherapy. Completed #9 cycles of carbo/taxol. Overall, she tolerated chemotherapy well. She does have arthralgias and myalgias that are better tolerated on the reduced dose of Taxol. Repeat PET 08/25/2020: IMPRESSION: There has been significant improvement of intensity of FDG accumulation within a mildly enlarged left periaortic lymph node when compared to the study from 06/16/2020. On the current examination, the node demonstrates mild FDG accumulation. Attention to this area is recommended on subsequent examinations. There are no new areas of abnormal FDG accumulation seen to suggest progression of malignancy. We discussed treatment options - continued carbo/taxol versus hormonal therapy. We switched to tamoxifen/megace. Patient was unable to tolerate hormonal therapy. When she was seen in the office in November 2020 there was a new vaginal lesion. Biopsy confirmed recurrent endometrial cancer. The patientwas started on systemic chemotherapy with Keytruda and Lenvima. She was unable to tolerate Lenvima which was discontinued. She underwent a PET scan on 02/22/2021 to assess response to treatment which showed: IMPRESSION: There is fairly intense, abnormal FDG accumulation within a mildly enlarged left para-aortic lymph node, consistent with residual or recurrent malignancy. When compared to the examination dated 12/08/2020, both the size and intensity of FDG uptake within this node has increased. No new areas of abnormal FDG accumulation are identified. On examination, the periurethral lesion that was somewhat smaller in size. The decision was made tocontinue systemic immunotherapy with Keytruda and consider re-irradiation of the left periaortic lymph node. Received radiation therapy in [place] with Dr. Melendez. Treated from April 25 through May 29, 2021. Received 45 Gy to the periaortic lymph nodes with a simultaneous boost to 55 Gy to the gross disease. Overall, tolerated treatments well and was able to continue Keytruda during her radiation. Does have arthralgia/myalgias several days after Keytruda. Having a rash. Just on her face, happensabout 1 week after the Keytruda. Recurrent urinary tract infections after Keytruda. We are treatingwith prophylactic Bactrim following treatment. PET 08/20/2021: IMPRESSION: Previously identified FDG avid left para-aortic lymph node on the study from 02/22/2021 has decreased in size and intensity of FDG accumulation. No new FDG avid lymphadenopathy is seen within the abdomen or pelvis. There is a new focus of increased FDG uptake within the perineum in the expected location of the vaginal vault or near the vaginal cuff. The intensity of uptake is suspicious for residual or recurrent malignancy. Referred to radiation oncology for interstitial brachytherapy at [facility]. Underwent treatment 12/2021. Post treatment reported blisters on the labia that were painful with drainage. Moist desquamation. Decided to discontinue Keytruda. MRI 04/17/2022: FINDINGS: Uterus: The uterus is surgically absent. The previously seen focus of signal abnormality with abnormal enhancement or restricted diffusion along the posterior wall of the vagina is present, with resolution of the previously seen restricted diffusion and abnormal enhancement. No new pelvic masses identified. Adnexa: No adnexal mass. Neither ovary is identified Free fluid: none identified Lymphadenopathy: none identified Other soft tissue structures: No other abnormality identified Osseous structures: Normal IMPRESSION: Resolution of the previously seen mass along the posterior wall of the vagina. No new pelvic mass. PET 04/25/2022: IMPRESSION: There has been significant improvement of the previously noted area of abnormal FDG accumulation inthe expected location of the vagina or vaginal cuff on the study from 09/07/2021. On the current examination, there is a small area of moderate FDG accumulation at the left margin of the vaginal cuff.This could reflect inflammation following radiation therapy, however a small area of residual or recurrent malignancy cannot be excluded. Continued follow-up is recommended. Borderline enlarged left paratracheal lymph node demonstrate mild to moderate FDG accumulation, unchanged in size and intensity of FDG accumulation when compared to the study from 09/07/2021. No new FDG avid lymphadenopathy or other mass is seen within the abdomen or pelvis. On exam there was an exophytic lesion in the mid-vagina. Biopsy confirmed persistent endometrial cancer. Patient was taken for simple partial vaginectomy 05/2022. Pathology confirmed malignancy, negative margins. Taken to the OR for simple partial vulvectomy (removal of right labia minora) and simple partial vaginectomy on 08/19/2022. Final pathology showed focally+ poorly differentiated carcinoma. ER - weak, patchy positive. PET scan 09/09/2022: IMPRESSION: Impression: No convincing evidence of residual malignancy. Follow-up recommended. PET 04/10/2023: IMPRESSION: There is an intensely FDG avid 1 cm nodule within the posterior aspect of the right upper lobe, consistent with residual or recurrent malignancy. Referred back to radiation oncology for SBRT. Dr. Melendez. Maulik. 5 treatments total. Completed treatments 05/29/2023. Again had evidence of recurrent disease in the vagina. Underwent simple partial vaginectomy on 10/06/23. Final pathology shows: Final Diagnosis VAGINA, SIMPLE PARTIAL VAGINECTOMY - FIBROUS TISSUE INVOLVED BY POORLY DIFFERENTIATED ADENOCARCINOMA. Interval History: Since her last visit, the patient has been doing well. She denies fevers, chills, nausea, vomiting,and bowel or bladder dysfunction. Pain is well controlled. No drainage from incisions. No abnormal vaginal bleeding or discharge. Was not able to tolerate the gabapenin and duloxtine. Was bumping into chui. Stopped duloxetine. Was doing better on what she was taking before - can't remember and unfortunately, I can't determine from [facility]. Pain is controlled on current regimen. Sees Alka Cason next month. Past Medical History: Diagnosis Date Anemia LOW IRON DUE TO BLEEDING Asthma Cerebral artery occlusion with cerebral infarction (HCC) Diabetes (HCC) Endometrial adenocarcinoma (CMS/HCC) (HCC) FIGO GRADE 2 GERD (gastroesophageal reflux disease) Glaucoma 2014 Hx of blood clots Hypertension Mini stroke 2013 Thrombotic. Affected short term memory, had to relearn things, locations. Past Surgical History: Procedure Laterality Date CATARACT EXTRACTION Left CATARACT EXTRACTION W/ INTRAOCULAR LENS IMPLANT Right 07/09/2021 SECTION (HISTORICAL) x2. Pfannenstiel incisions. COLONOSCOPY DILATION AND CURETTAGE OF UTERUS 12/19/2017 Dr Brittny Gan[facility] ENDOMETRIAL BIOPSY IR CVC MEDIPORT PLACEMENT OTHER SURGICAL HISTORY 12/09/2019 Robotic Fe-Aortic Biopsy TONSILLECTOMY (HISTORICAL) TOTAL ABDOMINAL HYSTERECTOMY 01/19/2018 Robotic hysterectomy, BSO, right pelvic sentinel LNB, left pelvic lymphadenectomy-Dr. Khang Tapia [facility] TUBAL LIGATION UPPER GASTROINTESTINAL ENDOSCOPY Family History Problem Relation Name Age of Onset Breast cancer Mother 90 Ovarian cancer Neg Hx Colon cancer Neg Hx Uterine cancer Neg Hx Social History Socioeconomic History Marital status: Spouse name: Not on file Number of children: Not on file Years of education: Not on file Highest education level: Not on file Occupational History Not on file Tobacco Use Smoking status: Former Current packs/day: 0.00 Average packs/day: 1.5 packs/day for 20.0 years (30.0 ttl pk-yrs) Types: Cigarettes Start date: 01/12/1983 Quit date: 01/12/2003 Years since quittin.0 Smokeless tobacco: Never Vaping Use Vaping status: Never Used Substance and Sexual Activity Alcohol use: Not Currently Comment: socially Drug use: No Sexual activity: Not Currently control/protection: Surgical Comment: hysterectomy Other Topics Concern Not on file Social History Narrative Not on file Social Determinants of Health Financial Resource Strain: Not on file Food Insecurity: Not on file Transportation Needs: Not on file Physical Activity: Not on file Stress: Not on file Social Connections: Not on file Intimate Partner Violence: Unknown (10/06/2023) Humiliation, Afraid, Rape, and Kick questionnaire Fear of Current or Ex-Partner: No Emotionally Abused: No Physically Abused: No Sexually Abused: Not on file Housing Stability: Not on file Current Outpatient Medications on File Prior to Visit Medication Sig Dispense Refill albuterol 108 (90 Base) MCG/ACT inhaler Inhale 90 each if needed. aspirin 81 MG chewable tablet Chew 81 mg daily. bisacodyl (Dulcolax) 5 MG EC tablet Take 10 mg by mouth if needed. brimonidine (AlphaGAN P) 0.2 % ophthalmic solution Administer 1 drop into both eyes Nightly. calcium carbonate (Os-Papito) 1250 (500 Ca) MG chewable tablet Chew 1 tablet if needed. cholecalciferol (Vitamin D-3) 50 MCG (2000 UT) capsule Take 1 capsule (50 mcg) by mouth in the morning. 30 capsule 2 dicyclomine (Bentyl) 10 MG capsule Take 10 mg by mouth if needed. DULoxetine (Cymbalta) [address] capsule Take 1 capsule (30 mg) by mouth 2 times daily. Do not crush or chew. 60 capsule 5 ketorolac (Acular) 0.5 % ophthalmic solution latanoprost (Xalatan) 0.005 % ophthalmic solution Administer 1 drop into both eyes Nightly. LORazepam (Ativan) 1 MG tablet Take 1 tablet (1 mg) by mouth every 6 hours as needed for anxiety. 60 tablet 0 metFORMIN XR (Glucophage-XR) 500 MG 24 hr tablet Take 1,000 mg by mouth in the morning and 1,000 mgin the evening. Misc. Devices (Sitz Bath) misc Use for pain relief as needed 1 each 0 Misc. Devices (Collins Bottle/Plastic 120mL) misc Use to clean area as needed 1 each 0 naloxone (Narcan) 4 mg/0.1 mL nasal spray Administer 4 mg into affected nostril(s) if needed. ofloxacin (Ocuflox) 0.3 % ophthalmic solution ondansetron (Zofran) 8 MG tablet Take 8 mg by mouth if needed. oxyCODONE (Roxicodone) 5 MG immediate release tablet Take 1 tablet (5 mg) by mouth every 4 hours asneeded for severe pain (7-10) for up to 20 days. 120 tablet 0 pantoprazole (ProtoNix) 40 MG EC tablet Take 40 mg by mouth if needed. prednisoLONE acetate (Pred-Forte) 1 % ophthalmic suspension sennosides (Senokot) 8.6 MG tablet Take 8.6 mg by mouth in the morning and 8.6 mg in the evening. sucralfate (Carafate) 1 GM/10ML suspension Take 1 g by mouth if needed. traZODone (Desyrel) 100 MG tablet Take 1 tablet (100 mg) by mouth Nightly. 30 tablet 0 Trelegy Ellipta 200-62.5-25 MCG/ACT aerosol powder gabapentin (Neurontin) 300 MG capsule Take 1 capsule (300 mg) by mouth 3 times daily. 90 capsule 0 LORazepam (Ativan) 1 MG tablet Take 1 tablet (1 mg) by mouth every 8 hours as needed for anxiety for up to 20 days. Do not start before December 15, 2023. 60 tablet 0 No current facility-administered medications on file prior to visit. Allergies as of 01/29/2024 - Reviewed 01/29/2024 Allergen Reaction Noted Morphine Anaphylaxis and Shortness of breath 11/22/2021 Codeine Rash and Nausea And Vomiting 12/30/2017 Review of Systems A 12 point review of systems was performed and is as per the history of the present illness, all other systems were reviewed and are negative. Vitals: 01/29/24 1101 BP: 130/80 Pulse: Body mass index is 38.8 kg/m . Physical Exam Vitals reviewed. Constitutional: General: She is not in acute distress. Appearance: Normal appearance. She is not ill-appearing, toxic-appearing or diaphoretic. HENT: Head: Normocephalic and atraumatic. Eyes: General: No scleral icterus. Extraocular Movements: Extraocular movements intact. Cardiovascular: Rate and Rhythm: Normal rate. Pulmonary: Effort: Pulmonary effort is normal. No respiratory distress. Genitourinary: Urethra: No prolapse, urethral pain, urethral swelling or urethral lesion. Vagina: Normal. Uterus: Absent. Comments: Red = area of radiation changes and atrophy - bleeding resulted from placement of speculum. No evidence of disease at this site. No obvious lesions in the vagina on visual inspection or palpation. Musculoskeletal: Right lower leg: No edema. Left lower leg: No edema. Skin: General: Skin is warm and dry. Coloration: Skin is not jaundiced or pale. Neurological: General: No focal deficit present. Mental Status: She is alert. Motor: No weakness. Coordination: Coordination normal. Gait: Gait normal. Psychiatric: Mood and Affect: Mood normal. Behavior: Behavior normal. ASSESSMENT/PLAN: Diagnosis Plan 1. Recurrent carcinoma of endometrium (HCC) PET/CT skull base to mid thigh 2. Cancer associated pain 3. S/P radiation therapy 4. 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) 5. 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 Tolerated treatment well. No evidence of recurrent disease on examination. Due for repeat PETscan. Patient has appointment today with palliative care for pain management. The patient had an opportunity to ask questions, all of which were answered to the best of my ability. She is in agreement with the above noted plan. I spent a total time of 25 minutes reviewing previous notes, test results, obtaining history, communicating results to the patient as well as counseling the patient, documenting clinical information in the patient's electronic medical record and coordinating care for the patient. Disclaimer: This note was dictated by speech recognition. I apologize for minor errors in wire threader which may be present. documented in this encounterSSalem City [id number] Note* Addendum Note - MERRICK Ansari CNP - 01/22/2024 9:27 AM EDTAddended by: ALKA CASON on: 01/22/2024 09:27 AM Modules accepted: [id number] NoteAddended by: ALKA CASON on: 01/22/2024 09:27 AM Modules accepted: [facility]10-03-2024 Telephone encounter Note* Telephone Encounter - MERRICK Ansari CNP - 01/22/2024 9:27 AM EDT Prescription Refill Request Patient Name: Danny Pink PCP: Donovan Hernandez Past Medical History: Past Medical History: Diagnosis Date Anemia LOW IRON DUE TO BLEEDING Asthma Cerebral artery occlusion with cerebral infarction (HCC) Diabetes (HCC) 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 Affected short term memory, had to relearn things, locations. Past Surgical History: Past Surgical History: Procedure Laterality Date CATARACT EXTRACTION W/ INTRAOCULAR LENS IMPLANT Right 07/09/2021 SECTION (HISTORICAL) x2. Pfannenstiel incisions. COLONOSCOPY DILATION AND CURETTAGE OF UTERUS 12/19/2017 Dr Brittny [facility] ENDOMETRIAL BIOPSY IR CVC MEDIPORT PLACEMENT OTHER SURGICAL HISTORY 12/09/2019 Robotic Fe-Aortic Biopsy TONSILLECTOMY (HISTORICAL) TOTAL ABDOMINAL HYSTERECTOMY 01/19/2018 Robotic hysterectomy, BSO, right pelvic sentinel LNB, left pelvic lymphadenectomy-Dr. Khang Tapia [facility] TUBAL LIGATION UPPER GASTROINTESTINAL ENDOSCOPY Allergies: Allergies Allergen Reactions Morphine Anaphylaxis and Shortness of breath Codeine Rash and Nausea And Vomiting Other reaction(s): Other (See Comments), Upset Stomach Problem List: does not have any pertinent problems on file. Current Medication List: Current Outpatient Medications on File Prior to Visit Medication Sig Dispense Refill albuterol 108 (90 Base) MCG/ACT inhaler Inhale 90 each if needed. aspirin 81 MG chewable tablet Chew 81 mg daily. bisacodyl (Dulcolax) 5 MG EC tablet Take 10 mg by mouth if needed. brimonidine (AlphaGAN P) 0.2 % ophthalmic solution Administer 1 drop into both eyes Nightly. calcium carbonate (Os-Papito) 1250 (500 Ca) MG chewable tablet Chew 1 tablet if needed. cholecalciferol (Vitamin D-3) 50 MCG (2000 UT) capsule Take 1 capsule (50 mcg) by mouth in the morning. 30 capsule 2 dicyclomine (Bentyl) 10 MG capsule Take 10 mg by mouth if needed. DULoxetine (Cymbalta) [address] capsule Take 1 capsule (30 mg) by mouth 2 times daily. Do not crush or chew. 60 capsule 5 gabapentin (Neurontin) 300 MG capsule Take 1 capsule (300 mg) by mouth 3 times daily. 90 capsule 0 latanoprost (Xalatan) 0.005 % ophthalmic solution Administer 1 drop into both eyes Nightly. LORazepam (Ativan) 1 MG tablet Take 1 tablet (1 mg) by mouth every 8 hours as needed for anxiety for up to 20 days. Do not start before December 15, 2023. 60 tablet 0 LORazepam (Ativan) 1 MG tablet Take 1 tablet (1 mg) by mouth every 6 hours as needed for anxiety. 60 tablet 0 metFORMIN XR (Glucophage-XR) 500 MG 24 hr tablet Take 1,000 mg by mouth in the morning and 1,000 mgin the evening. Misc. Devices (Sitz Bath) misc Use for pain relief as needed 1 each 0 Misc. Devices (Collins Bottle/Plastic 120mL) misc Use to clean area as needed 1 each 0 naloxone (Narcan) 4 mg/0.1 mL nasal spray Administer 4 mg into affected nostril(s) if needed. ondansetron (Zofran) 8 MG tablet Take 8 mg by mouth if needed. oxyCODONE (Roxicodone) 5 MG immediate release tablet Take 1 tablet (5 mg) by mouth every 4 hours asneeded for severe pain (7-10) for up to 20 days. 120 tablet 0 pantoprazole (ProtoNix) 40 MG EC tablet Take 40 mg by mouth if needed. sennosides (Senokot) 8.6 MG tablet Take 8.6 mg by mouth in the morning and 8.6 mg in the evening. sucralfate (Carafate) 1 GM/10ML suspension Take 1 g by mouth if needed. traZODone (Desyrel) 100 MG tablet Take 1 tablet (100 mg) by mouth Nightly. 30 tablet 0 Trelegy Ellipta 200-62.5-25 MCG/ACT aerosol powder [DISCONTINUED] LORazepam (Ativan) 1 MG tablet Take 1 tablet (1 mg) by mouth every 6 hours as neededfor anxiety. 60 tablet 0 No current facility-administered medications on file prior to visit. Telephone call placed to patient. The identity and location of the patient was confirmed and informed consent for treatment through a remote examination was obtained. The patient's diagnosis was confirmed and necessity for prescribed drug was verified. Drug(s) to be refilled: Requested Prescriptions No prescriptions requested or ordered in this encounter The patient has underlying conditions or contraindications which preclude continuation of the medication at this time: No, Refill provided {Put your decision support here (Optional): [id number]: If the medication(s) being refilled is (are)a controlled substance please verify the following: The person is an active patient of a licensed practitioner who is a colleague of the provider Yes Drugs are being prescribed pursuant to an on-call or cross coverage agreement {Blank single:84509::Yes, No, N/A OARRS report reviewed: Yes Referrals placed: N/A Follow-Up Care and Testing: No follow-ups on file. [facility]10-03-2024 Miscellaneous Notes* Addendum Note - MERRICK Ansari CNP - 01/22/2024 9:27 AM EDTAddended by: ALKA CASON on: 01/22/2024 09:27 AM Modules accepted: Orders * Telephone Encounter - Alka Kilgore MERRICK Cason CNP - 01/22/2024 9:27 AM EDT Prescription Refill Request Patient Name: Danny Pink PCP: Donovan Hernandez Past Medical History: Past Medical History: Diagnosis Date Anemia LOW IRON DUE TO BLEEDING Asthma Cerebral artery occlusion with cerebral infarction (HCC) Diabetes (HCC) Endometrial adenocarcinoma (CMS/HCC) (HCC) FIGO GRADE 2 GERD (gastroesophageal reflux disease) Glaucoma 2014 Hx of blood clots Hypertension Mini stroke 2014 Thrombotic. Affected short term memory, had to relearn things, locations. Past Surgical History: Past Surgical History: Procedure Laterality Date CATARACT EXTRACTION W/ INTRAOCULAR LENS IMPLANT Right 07/09/2021 SECTION (HISTORICAL) x2. Pfannenstiel incisions. COLONOSCOPY DILATION AND CURETTAGE OF UTERUS 12/19/2017 Dr Brittny Gan[facility] ENDOMETRIAL BIOPSY IR CVC MEDIPORT PLACEMENT OTHER SURGICAL HISTORY 12/09/2019 Robotic Fe-Aortic Biopsy TONSILLECTOMY (HISTORICAL) TOTAL ABDOMINAL HYSTERECTOMY 01/19/2018 Robotic hysterectomy, BSO, right pelvic sentinel LNB, left pelvic lymphadenectomy-Dr. Khang Tapia [facility] TUBAL LIGATION UPPER GASTROINTESTINAL ENDOSCOPY Allergies: Allergies Allergen Reactions Morphine Anaphylaxis and Shortness of breath Codeine Rash and Nausea And Vomiting Other reaction(s): Other (See Comments), Upset Stomach Problem List: does not have any pertinent problems on file. Current Medication List: Current Outpatient Medications on File Prior to Visit Medication Sig Dispense Refill albuterol 108 (90 Base) MCG/ACT inhaler Inhale 90 each if needed. aspirin 81 MG chewable tablet Chew 81 mg daily. bisacodyl (Dulcolax) 5 MG EC tablet Take 10 mg by mouth if needed. brimonidine (AlphaGAN P) 0.2 % ophthalmic solution Administer 1 drop into both eyes Nightly. calcium carbonate (Os-Papito) 1250 (500 Ca) MG chewable tablet Chew 1 tablet if needed. cholecalciferol (Vitamin D-3) 50 MCG (1999 UT) capsule Take 1 capsule (50 mcg) by mouth in the morning. 30 capsule 2 dicyclomine (Bentyl) 10 MG capsule Take 10 mg by mouth if needed. DULoxetine (Cymbalta) [address] capsule Take 1 capsule (30 mg) by mouth 2 times daily. Do not crush or chew. 60 capsule 5 gabapentin (Neurontin) 300 MG capsule Take 1 capsule (300 mg) by mouth 3 times daily. 90 capsule 0 latanoprost (Xalatan) 0.005 % ophthalmic solution Administer 1 drop into both eyes Nightly. LORazepam (Ativan) 1 MG tablet Take 1 tablet (1 mg) by mouth every 8 hours as needed for anxiety for up to 20 days. Do not start before December 15, 2023. 60 tablet 0 LORazepam (Ativan) 1 MG tablet Take 1 tablet (1 mg) by mouth every 6 hours as needed for anxiety. 60 tablet 0 metFORMIN XR (Glucophage-XR) 500 MG 24 hr tablet Take 1,000 mg by mouth in the morning and 1,000 mgin the evening. Misc. Devices (Sitz Bath) misc Use for pain relief as needed 1 each 0 Misc. Devices (Collins Bottle/Plastic 120mL) misc Use to clean area as needed 1 each 0 naloxone (Narcan) 4 mg/0.1 mL nasal spray Administer 4 mg into affected nostril(s) if needed. ondansetron (Zofran) 8 MG tablet Take 8 mg by mouth if needed. oxyCODONE (Roxicodone) 5 MG immediate release tablet Take 1 tablet (5 mg) by mouth every 4 hours asneeded for severe pain (7-10) for up to 20 days. 120 tablet 0 pantoprazole (ProtoNix) 40 MG EC tablet Take 40 mg by mouth if needed. sennosides (Senokot) 8.6 MG tablet Take 8.6 mg by mouth in the morning and 8.6 mg in the evening. sucralfate (Carafate) 1 GM/10ML suspension Take 1 g by mouth if needed. traZODone (Desyrel) 100 MG tablet Take 1 tablet (100 mg) by mouth Nightly. 30 tablet 0 Trelegy Ellipta 200-62.5-25 MCG/ACT aerosol powder [DISCONTINUED] LORazepam (Ativan) 1 MG tablet Take 1 tablet (1 mg) by mouth every 6 hours as neededfor anxiety. 60 tablet 0 No current facility-administered medications on file prior to visit. Telephone call placed to patient. The identity and location of the patient was confirmed and informed consent for treatment through a remote examination was obtained. The patient's diagnosis was confirmed and necessity for prescribed drug was verified. Drug(s) to be refilled: Requested Prescriptions No prescriptions requested or ordered in this encounter The patient has underlying conditions or contraindications which preclude continuation of the medication at this time: No, Refill provided {Put your decision support here (Optional): [id number]: If the medication(s) being refilled is (are)a controlled substance please verify the following: The person is an active patient of a licensed practitioner who is a colleague of the provider Yes Drugs are being prescribed pursuant to an on-call or cross coverage agreement {Blank single:28005::Yes, No, N/A OARRS report reviewed: Yes Referrals placed: N/A Follow-Up Care and Testing: No follow-ups on file. * Telephone Encounter - Katty Jo MA - 01/22/2024 9:08 AM EDT Confirmed patient Name and : Yes Medication name(s) and dose(s) requested: oxycodone(Roxicodone) 5mg ir tablet Approximate number of pills available in the home: 10 tablets left Confirmed and updated correct pharmacy: Yes Reminded patient of 3 business day refill policy on all medication refill requests: Yes Notified patient to call pharmacy to confirm prescription ready for pickup and to call office if not available within 3 business days: Yes Date of last appointment: 10/30/2023 Date of next appointment: 02/06/24 documented in this [facility]10-03-2024 Telephone encounter Note* Telephone Encounter - Katty Jo MA - 01/22/2024 9:08 AM EDT Confirmed patient Name and : Yes Medication name(s) and dose(s) requested: oxycodone(Roxicodone) 5mg ir tablet Approximate number of pills available in the home: 10 tablets left Confirmed and updated correct pharmacy: Yes Reminded patient of 3 business day refill policy on all medication refill requests: Yes Notified patient to call pharmacy to confirm prescription ready for pickup and to call office if not available within 3 business days: Yes Date of last appointment: 10/30/2023 Date of next appointment: 02/06/24 [id number] encounter Note* Telephone Encounter - Alka Cason, THERMAL INTELLIGENCE ANALYST - MEDICAL ASSISTANT SUPERVISOR - 01/20/2024 10:53 AM EDT Prescription Refill Request Patient Name: Danny Pink PCP: Donovan Hernandez Past Medical History: Past Medical History: Diagnosis Date Anemia LOW IRON DUE TO BLEEDING Asthma Cerebral artery occlusion with cerebral infarction (HCC) Diabetes (HCC) Endometrial adenocarcinoma (CMS/HCC) (HCC) FIGO GRADE 2 GERD (gastroesophageal reflux disease) Glaucoma 2014 Hx of blood clots Hypertension Mini stroke 2014 Thrombotic. Affected short term memory, had to relearn things, locations. Past Surgical History: Past Surgical History: Procedure Laterality Date CATARACT EXTRACTION W/ INTRAOCULAR LENS IMPLANT Right 07/09/2021 SECTION (HISTORICAL) x2. Pfannenstiel incisions. COLONOSCOPY DILATION AND CURETTAGE OF UTERUS 12/19/2017 Dr Brittny Gan[facility] ENDOMETRIAL BIOPSY IR CVC MEDIPORT PLACEMENT OTHER SURGICAL HISTORY 12/09/2019 Robotic Fe-Aortic Biopsy TONSILLECTOMY (HISTORICAL) TOTAL ABDOMINAL HYSTERECTOMY 01/19/2018 Robotic hysterectomy, BSO, right pelvic sentinel LNB, left pelvic lymphadenectomy-Dr. Khang Tapia [facility] TUBAL LIGATION UPPER GASTROINTESTINAL ENDOSCOPY Allergies: Allergies Allergen Reactions Morphine Anaphylaxis and Shortness of breath Codeine Rash and Nausea And Vomiting Other reaction(s): Other (See Comments), Upset Stomach Problem List: does not have any pertinent problems on file. Current Medication List: Current Outpatient Medications on File Prior to Visit Medication Sig Dispense Refill albuterol 108 (90 Base) MCG/ACT inhaler Inhale 90 each if needed. aspirin 81 MG chewable tablet Chew 81 mg daily. bisacodyl (Dulcolax) 5 MG EC tablet Take 10 mg by mouth if needed. brimonidine (AlphaGAN P) 0.2 % ophthalmic solution Administer 1 drop into both eyes Nightly. calcium carbonate (Os-Papito) 1250 (500 Ca) MG chewable tablet Chew 1 tablet if needed. cholecalciferol (Vitamin D-3) 50 MCG (2000 UT) capsule Take 1 capsule (50 mcg) by mouth in the morning. 30 capsule 2 dicyclomine (Bentyl) 10 MG capsule Take 10 mg by mouth if needed. DULoxetine (Cymbalta) [address] capsule Take 1 capsule (30 mg) by mouth 2 times daily. Do not crush or chew. 60 capsule 5 gabapentin (Neurontin) 300 MG capsule Take 1 capsule (300 mg) by mouth 3 times daily. 90 capsule 0 latanoprost (Xalatan) 0.005 % ophthalmic solution Administer 1 drop into both eyes Nightly. LORazepam (Ativan) 1 MG tablet Take 1 tablet (1 mg) by mouth every 8 hours as needed for anxiety for up to 20 days. Do not start before December 15, 2023. 60 tablet 0 metFORMIN XR (Glucophage-XR) 500 MG 24 hr tablet Take 1,000 mg by mouth in the morning and 1,000 mgin the evening. Misc. Devices (Sitz Bath) misc Use for pain relief as needed 1 each 0 Misc. Devices (Collins Bottle/Plastic 120mL) misc Use to clean area as needed 1 each 0 naloxone (Narcan) 4 mg/0.1 mL nasal spray Administer 4 mg into affected nostril(s) if needed. ondansetron (Zofran) 8 MG tablet Take 8 mg by mouth if needed. oxyCODONE (Roxicodone) 5 MG immediate release tablet Take 1 tablet (5 mg) by mouth every 4 hours asneeded for severe pain (7-10) for up to 20 days. 120 tablet 0 pantoprazole (ProtoNix) 40 MG EC tablet Take 40 mg by mouth if needed. sennosides (Senokot) 8.6 MG tablet Take 8.6 mg by mouth in the morning and 8.6 mg in the evening. sucralfate (Carafate) 1 GM/10ML suspension Take 1 g by mouth if needed. traZODone (Desyrel) 100 MG tablet Take 1 tablet (100 mg) by mouth Nightly. 30 tablet 0 Trelegy Ellipta 200-62.5-25 MCG/ACT aerosol powder [DISCONTINUED] LORazepam (Ativan) 1 MG tablet Take 1 tablet (1 mg) by mouth every 6 hours as neededfor anxiety. 60 tablet 0 No current facility-administered medications on file prior to visit. Telephone call placed to patient. The identity and location of the patient was confirmed and informed consent for treatment through a remote examination was obtained. The patient's diagnosis was confirmed and necessity for prescribed drug was verified. Drug(s) to be refilled: Requested Prescriptions Signed Prescriptions Disp Refills LORazepam (Ativan) 1 MG tablet 60 tablet 0 Sig: Take 1 tablet (1 mg) by mouth every 6 hours as needed for anxiety. Authorizing Provider: ALKA CASON The patient has underlying conditions or contraindications which preclude continuation of the medication at this time: No, Refill provided {Put your decision support here (Optional): [id number]: If the medication(s) being refilled is (are)a controlled substance please verify the following: The person is an active patient of a licensed practitioner who is a colleague of the provider Yes Drugs are being prescribed pursuant to an on-call or cross coverage agreement {Blank single:80113::Yes, No, N/A OARRS report reviewed: Yes Referrals placed: N/A Follow-Up Care and Testing: No follow-ups on file. [id number] Miscellaneous Notes* Telephone Encounter - MERRICK Ansari CNP - 01/20/2024 10:53 AM EDT Prescription Refill Request Patient Name: Danny Pink PCP: Donovan Hernandez Past Medical History: Past Medical History: Diagnosis Date Anemia LOW IRON DUE TO BLEEDING Asthma Cerebral artery occlusion with cerebral infarction (HCC) Diabetes (HCC) Endometrial adenocarcinoma (CMS/HCC) (HCC) FIGO GRADE 2 GERD (gastroesophageal reflux disease) Glaucoma 2014 Hx of blood clots Hypertension Mini stroke 2014 Thrombotic. Affected short term memory, had to relearn things, locations. Past Surgical History: Past Surgical History: Procedure Laterality Date CATARACT EXTRACTION W/ INTRAOCULAR LENS IMPLANT Right 07/09/2021 SECTION (HISTORICAL) x2. Pfannenstiel incisions. COLONOSCOPY DIL[facility] AND [facility] MEDIP[facility] PLAC[facility] OTHER SURGICAL HISTORY 12/09/2019 Robotic Fe-Aortic Biopsy TONSILLECTOMY (HISTORICAL) TOTAL ABDOMINAL HYSTERECTOMY 01/19/2018 Robotic hysterectomy, BSO, right pelvic sentinel LNB, left pelvic lymphadenectomy-Dr. Khang Tapia [facility] TUBAL LIGATION UPPER GASTROINTESTINAL ENDOSCOPY Allergies: Allergies Allergen Reactions Morphine Anaphylaxis and Shortness of breath Codeine Rash and Nausea And Vomiting Other reaction(s): Other (See Comments), Upset Stomach Problem List: does not have any pertinent problems on file. Current Medication List: Current Outpatient Medications on File Prior to Visit Medication Sig Dispense Refill albuterol 108 (90 Base) MCG/ACT inhaler Inhale 90 each if needed. aspirin 81 MG chewable tablet Chew 81 mg daily. bisacodyl (Dulcolax) 5 MG EC tablet Take 10 mg by mouth if needed. brimonidine (AlphaGAN P) 0.2 % ophthalmic solution Administer 1 drop into both eyes Nightly. calcium carbonate (Os-Papito) 1250 (500 Ca) MG chewable tablet Chew 1 tablet if needed. cholecalciferol (Vitamin D-3) 50 MCG (2000 UT) capsule Take 1 capsule (50 mcg) by mouth in the morning. 30 capsule 2 dicyclomine (Bentyl) 10 MG capsule Take 10 mg by mouth if needed. DULoxetine (Cymbalta) [address] capsule Take 1 capsule (30 mg) by mouth 2 times daily. Do not crush or chew. 60 capsule 5 gabapentin (Neurontin) 300 MG capsule Take 1 capsule (300 mg) by mouth 3 times daily. 90 capsule 0 latanoprost (Xalatan) 0.005 % ophthalmic solution Administer 1 drop into both eyes Nightly. LORazepam (Ativan) 1 MG tablet Take 1 tablet (1 mg) by mouth every 8 hours as needed for anxiety for up to 20 days. Do not start before December 15, 2023. 60 tablet 0 metFORMIN XR (Glucophage-XR) 500 MG 24 hr tablet Take 1,000 mg by mouth in the morning and 1,000 mgin the evening. Misc. Devices (Sitz Bath) misc Use for pain relief as needed 1 each 0 Misc. Devices (Collins Bottle/Plastic 120mL) misc Use to clean area as needed 1 each 0 naloxone (Narcan) 4 mg/0.1 mL nasal spray Administer 4 mg into affected nostril(s) if needed. ondansetron (Zofran) 8 MG tablet Take 8 mg by mouth if needed. oxyCODONE (Roxicodone) 5 MG immediate release tablet Take 1 tablet (5 mg) by mouth every 4 hours asneeded for severe pain (7-10) for up to 20 days. 120 tablet 0 pantoprazole (ProtoNix) 40 MG EC tablet Take 40 mg by mouth if needed. sennosides (Senokot) 8.6 MG tablet Take 8.6 mg by mouth in the morning and 8.6 mg in the evening. sucralfate (Carafate) 1 GM/10ML suspension Take 1 g by mouth if needed. traZODone (Desyrel) 100 MG tablet Take 1 tablet (100 mg) by mouth Nightly. 30 tablet 0 Trelegy Ellipta 200-62.5-25 MCG/ACT aerosol powder [DISCONTINUED] LORazepam (Ativan) 1 MG tablet Take 1 tablet (1 mg) by mouth every 6 hours as neededfor anxiety. 60 tablet 0 No current facility-administered medications on file prior to visit. Telephone call placed to patient. The identity and location of the patient was confirmed and informed consent for treatment through a remote examination was obtained. The patient's diagnosis was confirmed and necessity for prescribed drug was verified. Drug(s) to be refilled: Requested Prescriptions Signed Prescriptions Disp Refills LORazepam (Ativan) 1 MG tablet 60 tablet 0 Sig: Take 1 tablet (1 mg) by mouth every 6 hours as needed for anxiety. Authorizing Provider: ALKA CASON The patient has underlying conditions or contraindications which preclude continuation of the medication at this time: No, Refill provided {Put your decision support here (Optional): [id number]: If the medication(s) being refilled is (are)a controlled substance please verify the following: The person is an active patient of a licensed practitioner who is a colleague of the provider Yes Drugs are being prescribed pursuant to an on-call or cross coverage agreement {Blank single:39696::Yes, No, N/A OARRS report reviewed: Yes Referrals placed: N/A Follow-Up Care and Testing: No follow-ups on file. * Telephone Encounter - Dena Camacho MA - 01/19/2024 3:57 PM EDT Confirmed patient Name and : Yes Medication name(s) and dose(s) requested: Lorazepam (Ativan) 1 MG Tablet Approximate number of pills available in the home: None Left Confirmed and updated correct pharmacy: Yes Reminded patient of 3 business day refill policy on all medication refill requests: Yes Notified patient to call pharmacy to confirm prescription ready for pickup and to call office if not available within 3 business days: Yes Date of last appointment: 10/30/23 Date of next appointment: N/A documented in this [facility]09-30-2024 Telephone encounter Note* Telephone Encounter - Dena Camacho MA - 01/19/2024 3:57 PM EDT Confirmed patient Name and : Yes Medication name(s) and dose(s) requested: Lorazepam (Ativan) 1 MG Tablet Approximate number of pills available in the home: None Left Confirmed and updated correct pharmacy: Yes Reminded patient of 3 business day refill policy on all medication refill requests: Yes Notified patient to call pharmacy to confirm prescription ready for pickup and to call office if not available within 3 business days: Yes Date of last appointment: 10/30/23 Date of next appointment: N/A [id number]* Addendum Note - MERRICK Ansari CNP - 01/05/2024 1:59 PM EDTAddended by: ALKA CASON on: 01/05/2024 01:59 PM Modules accepted: [id number] NoteAddended by: ALKA CASON on: 01/05/2024 01:59 PM Modules accepted: [facility]09-16-2024 Miscellaneous Notes* Addendum Note - MERRICK Ansari CNP - 01/05/2024 1:59 PM EDTAddended by: ALKA CASON on: 01/05/2024 01:59 PM Modules accepted: Orders * Telephone Encounter - MERRICK Ansari CNP - 01/05/2024 1:58 PM EDT Prescription Refill Request Patient Name: Dannyjosh Pink PCP: Donovan Hernandez Past Medical History: Past Medical History: Diagnosis Date Anemia LOW IRON DUE TO BLEEDING Asthma Cerebral artery occlusion with cerebral infarction (HCC) Diabetes (HCC) Endometrial adenocarcinoma (CMS/HCC) (HCC) FIGO GRADE 2 GERD (gastroesophageal reflux disease) Glaucoma 2014 Hx of blood clots Hypertension Mini stroke 2014 Thrombotic. Affected short term memory, had to relearn things, locations. Past Surgical History: Past Surgical History: Procedure Laterality Date CATARACT EXTRACTION W/ INTRAOCULAR LENS IMPLANT Right 07/09/2021 SECTION (HISTORICAL) x2. Pfannenstiel incisions. COLONOSCOPY DILATION AND CURETTAGE OF UTERUS 12/19/2017 Dr Brittny Gan[facility] ENDOMETRIAL BIOPSY IR CVC MEDIPORT PLACEMENT OTHER SURGICAL HISTORY 12/09/2019 Robotic Fe-Aortic Biopsy TONSILLECTOMY (HISTORICAL) TOTAL ABDOMINAL HYSTERECTOMY 01/19/2018 Robotic hysterectomy, BSO, right pelvic sentinel LNB, left pelvic lymphadenectomy-Dr. Khang Tapia [facility] TUBAL LIGATION UPPER GASTROINTESTINAL ENDOSCOPY Allergies: Allergies Allergen Reactions Morphine Anaphylaxis and Shortness of breath Codeine Rash and Nausea And Vomiting Other reaction(s): Other (See Comments), Upset Stomach Problem List: does not have any pertinent problems on file. Current Medication List: Current Outpatient Medications on File Prior to Visit Medication Sig Dispense Refill albuterol 108 (90 Base) MCG/ACT inhaler Inhale 90 each if needed. aspirin 81 MG chewable tablet Chew 81 mg daily. bisacodyl (Dulcolax) 5 MG EC tablet Take 10 mg by mouth if needed. brimonidine (AlphaGAN P) 0.2 % ophthalmic solution Administer 1 drop into both eyes Nightly. calcium carbonate (Os-Papito) 1250 (500 Ca) MG chewable tablet Chew 1 tablet if needed. cholecalciferol (Vitamin D-3) 50 MCG (2000 UT) capsule Take 1 capsule (50 mcg) by mouth in the morning. 30 capsule 2 dicyclomine (Bentyl) 10 MG capsule Take 10 mg by mouth if needed. DULoxetine (Cymbalta) [address] capsule Take 1 capsule (30 mg) by mouth 2 times daily. Do not crush or chew. 60 capsule 5 gabapentin (Neurontin) 300 MG capsule Take 1 capsule (300 mg) by mouth 3 times daily. 90 capsule 0 latanoprost (Xalatan) 0.005 % ophthalmic solution Administer 1 drop into both eyes Nightly. LORazepam (Ativan) 1 MG tablet Take 1 tablet (1 mg) by mouth every 8 hours as needed for anxiety for up to 20 days. Do not start before December 15, 2023. 60 tablet 0 LORazepam (Ativan) 1 MG tablet Take 1 tablet (1 mg) by mouth every 6 hours as needed for anxiety. 60 tablet 0 metFORMIN XR (Glucophage-XR) 500 MG 24 hr tablet Take 1,000 mg by mouth in the morning and 1,000 mgin the evening. Misc. Devices (Sitz Bath) misc Use for pain relief as needed 1 each 0 Misc. Devices (Collins Bottle/Plastic 120mL) misc Use to clean area as needed 1 each 0 naloxone (Narcan) 4 mg/0.1 mL nasal spray Administer 4 mg into affected nostril(s) if needed. ondansetron (Zofran) 8 MG tablet Take 8 mg by mouth if needed. pantoprazole (ProtoNix) 40 MG EC tablet Take 40 mg by mouth if needed. sennosides (Senokot) 8.6 MG tablet Take 8.6 mg by mouth in the morning and 8.6 mg in the evening. sucralfate (Carafate) 1 GM/10ML suspension Take 1 g by mouth if needed. traZODone (Desyrel) 100 MG tablet Take 1 tablet (100 mg) by mouth Nightly. 30 tablet 0 Trelegy Ellipta 200-62.5-25 MCG/ACT aerosol powder [DISCONTINUED] LORazepam (Ativan) 1 MG tablet Take 1 tablet (1 mg) by mouth every 6 hours as neededfor anxiety. 60 tablet 0 [DISCONTINUED] traZODone (Desyrel) 100 MG tablet Take 1 tablet (100 mg) by mouth Nightly. 30 tablet0 No current facility-administered medications on file prior to visit. Telephone call placed to patient. The identity and location of the patient was confirmed and informed consent for treatment through a remote examination was obtained. The patient's diagnosis was confirmed and necessity for prescribed drug was verified. Drug(s) to be refilled: Requested Prescriptions No prescriptions requested or ordered in this encounter The patient has underlying conditions or contraindications which preclude continuation of the medication at this time: No, Refill provided {Put your decision support here (Optional): [id number]: If the medication(s) being refilled is (are)a controlled substance please verify the following: The person is an active patient of a licensed practitioner who is a colleague of the provider Yes Drugs are being prescribed pursuant to an on-call or cross coverage agreement {Blank single:19941::Yes, No, N/A OARRS report reviewed: Yes Referrals placed: N/A Follow-Up Care and Testing: No follow-ups on file. * Telephone Encounter - Linette Crandall RN - 01/05/2024 11:42 AM EDT Call received from pt requesting a refill on her oxycodone. Upon chart review, it appears pt is duefor refill. Pt states she has #5 left, she is taking 2 tablets every 4 hours, and she is getting good pain relief from current dosing. Pt confirms [facility] confirmed. documented in this [facility]09-16-2024 Telephone encounter Note* Telephone Encounter - MERRICK Ansari CNP - 01/05/2024 1:58 PM EDT Prescription Refill Request Patient Name: Danny Bobo Richard PCP: Donovan Hernandez Past Medical History: Past Medical History: Diagnosis Date Anemia LOW IRON DUE TO BLEEDING Asthma Cerebral artery occlusion with cerebral infarction (HCC) Diabetes (HCC) Endometrial adenocarcinoma (CMS/HCC) (HCC) FIGO GRADE 2 GERD (gastroesophageal reflux disease) Glaucoma 2014 Hx of blood clots Hypertension Mini stroke 2014 Thrombotic. Affected short term memory, had to relearn things, locations. Past Surgical History: Past Surgical History: Procedure Laterality Date CATARACT EXTRACTION W/ INTRAOCULAR LENS IMPLANT Right 07/09/2021 SECTION (HISTORICAL) x2. Pfannenstiel incisions. COLONOSCOPY DIL[facility] AND [facility] MEDIPORT PLAC[facility] OTHER SURGICAL HISTORY 12/09/2019 Robotic Fe-Aortic Biopsy TONSILLECTOMY (HISTORICAL) TOTAL ABDOMINAL HYSTERECTOMY 01/19/2018 Robotic hysterectomy, BSO, right pelvic sentinel LNB, left pelvic lymphadenectomy-Dr. Khang Tapia [facility] TUBAL LIGATION UPPER GASTROINTESTINAL ENDOSCOPY Allergies: Allergies Allergen Reactions Morphine Anaphylaxis and Shortness of breath Codeine Rash and Nausea And Vomiting Other reaction(s): Other (See Comments), Upset Stomach Problem List: does not have any pertinent problems on file. Current Medication List: Current Outpatient Medications on File Prior to Visit Medication Sig Dispense Refill albuterol 108 (90 Base) MCG/ACT inhaler Inhale 90 each if needed. aspirin 81 MG chewable tablet Chew 81 mg daily. bisacodyl (Dulcolax) 5 MG EC tablet Take 10 mg by mouth if needed. brimonidine (AlphaGAN P) 0.2 % ophthalmic solution Administer 1 drop into both eyes Nightly. calcium carbonate (Os-Papito) 1250 (500 Ca) MG chewable tablet Chew 1 tablet if needed. cholecalciferol (Vitamin D-3) 50 MCG (2000 UT) capsule Take 1 capsule (50 mcg) by mouth in the morning. 30 capsule 2 dicyclomine (Bentyl) 10 MG capsule Take 10 mg by mouth if needed. DULoxetine (Cymbalta) [address] capsule Take 1 capsule (30 mg) by mouth 2 times daily. Do not crush or chew. 60 capsule 5 gabapentin (Neurontin) 300 MG capsule Take 1 capsule (300 mg) by mouth 3 times daily. 90 capsule 0 latanoprost (Xalatan) 0.005 % ophthalmic solution Administer 1 drop into both eyes Nightly. LORazepam (Ativan) 1 MG tablet Take 1 tablet (1 mg) by mouth every 8 hours as needed for anxiety for up to 20 days. Do not start before December 15, 2023. 60 tablet 0 LORazepam (Ativan) 1 MG tablet Take 1 tablet (1 mg) by mouth every 6 hours as needed for anxiety. 60 tablet 0 metFORMIN XR (Glucophage-XR) 500 MG 24 hr tablet Take 1,000 mg by mouth in the morning and 1,000 mgin the evening. Misc. Devices (Sitz Bath) misc Use for pain relief as needed 1 each 0 Misc. Devices (Collins Bottle/Plastic 120mL) misc Use to clean area as needed 1 each 0 naloxone (Narcan) 4 mg/0.1 mL nasal spray Administer 4 mg into affected nostril(s) if needed. ondansetron (Zofran) 8 MG tablet Take 8 mg by mouth if needed. pantoprazole (ProtoNix) 40 MG EC tablet Take 40 mg by mouth if needed. sennosides (Senokot) 8.6 MG tablet Take 8.6 mg by mouth in the morning and 8.6 mg in the evening. sucralfate (Carafate) 1 GM/10ML suspension Take 1 g by mouth if needed. traZODone (Desyrel) 100 MG tablet Take 1 tablet (100 mg) by mouth Nightly. 30 tablet 0 Trelegy Ellipta 200-62.5-25 MCG/ACT aerosol powder [DISCONTINUED] LORazepam (Ativan) 1 MG tablet Take 1 tablet (1 mg) by mouth every 6 hours as neededfor anxiety. 60 tablet 0 [DISCONTINUED] traZODone (Desyrel) 100 MG tablet Take 1 tablet (100 mg) by mouth Nightly. 30 tablet0 No current facility-administered medications on file prior to visit. Telephone call placed to patient. The identity and location of the patient was confirmed and informed consent for treatment through a remote examination was obtained. The patient's diagnosis was confirmed and necessity for prescribed drug was verified. Drug(s) to be refilled: Requested Prescriptions No prescriptions requested or ordered in this encounter The patient has underlying conditions or contraindications which preclude continuation of the medication at this time: No, Refill provided {Put your decision support here (Optional): [id number]: If the medication(s) being refilled is (are)a controlled substance please verify the following: The person is an active patient of a licensed practitioner who is a colleague of the provider Yes Drugs are being prescribed pursuant to an on-call or cross coverage agreement {Blank single:16262::Yes, No, N/A OARRS report reviewed: Yes Referrals placed: N/A Follow-Up Care and Testing: No follow-ups on file. [id number] Telephone encounter Note* Telephone Encounter - Linette Crandall RN - 01/05/2024 11:42 AM EDT Call received from pt requesting a refill on her oxycodone. Upon chart review, it appears pt is duefor refill. Pt states she has #5 left, she is taking 2 tablets every 4 hours, and she is getting good pain relief from current dosing. Pt confirms [facility] confirmed. [id number] Telephone encounter Note* Telephone Encounter - MERRICK Ansari CNP - 12/30/2023 11:51 AM EDT Reviewed oaars.eprescribed refills. [id number] Miscellaneous Notes* Telephone Encounter - MERRICK Ansari CNP - 12/30/2023 11:51 AM EDT Reviewed oaars.eprescribed refills. * Telephone Encounter - Dena Camacho MA - 12/30/2023 10:22 AM EDT Confirmed patient Name and : Yes Medication name(s) and dose(s) requested: Lorazepam (Ativan) 1 MG Tablet Trazodone (Desyrel) 100 MG Tablet Approximate number of pills available in the home: Lorazepam- Completely out Trazodone- Completely out Confirmed and updated correct pharmacy: Yes Reminded patient of 3 business day refill policy on all medication refill requests: Yes Notified patient to call pharmacy to confirm prescription ready for pickup and to call office if not available within 3 business days: Yes Date of last appointment: 10/30/23 Date of next appointment: N/A [id number] Telephone encounter Note* Telephone Encounter - Dena Camacho MA - 12/30/2023 10:22 AM EDT Confirmed patient Name and : Yes Medication name(s) and dose(s) requested: Lorazepam (Ativan) 1 MG Tablet Trazodone (Desyrel) 100 MG Tablet Approximate number of pills available in the home: Lorazepam- Completely out Trazodone- Completely out Confirmed and updated correct pharmacy: Yes Reminded patient of 3 business day refill policy on all medication refill requests: Yes Notified patient to call pharmacy to confirm prescription ready for pickup and to call office if not available within 3 business days: Yes Date of last appointment: 10/30/23 Date of next appointment: N/A [id number] Telephone encounter Note* Telephone Encounter - Sandy Morocho MD - 12/12/2023 10:42 AM EDT Chart reviewed. OARRS reviewed. Patient due for refill of trazodone, sent in refill. Prescription for Lorazepam can be picked up on 12/14 and prescription for Oxycodone can be picked up on 12/17. [id number] Miscellaneous Notes* Telephone Encounter - Sandy Morocho MD - 12/12/2023 10:42 AM EDT Chart reviewed. OARRS reviewed. Patient due for refill of trazodone, sent in refill. Prescription for Lorazepam can be picked up on 12/14 and prescription for Oxycodone can be picked up on 12/17. * Telephone Encounter - Dena Camacho MA - 12/12/2023 8:59 AM EDT Confirmed patient Name and : Yes Medication name(s) and dose(s) requested: Lorazepam (Ativan) 1 MG Tablet Oxycodone (Roxicodone) 5 MG IR Tablet Trazodone (Desyrel) 100 MG Tablet Approximate number of pills available in the home: Ativan- 5 Tablets Left Oxycodone- 5 Tablets Left Trazodone- None left Confirmed and updated correct pharmacy: Yes Reminded patient of 3 business day refill policy on all medication refill requests: Yes Notified patient to call pharmacy to confirm prescription ready for pickup and to call office if not available within 3 business days: Yes Date of last appointment: 10/30/23 Date of next appointment: N/A documented in this [facility]08-23-2024 Telephone encounter Note* Telephone Encounter - Dena Camacho MA - 12/12/2023 8:59 AM EDT Confirmed patient Name and : Yes Medication name(s) and dose(s) requested: Lorazepam (Ativan) 1 MG Tablet Oxycodone (Roxicodone) 5 MG IR Tablet Trazodone (Desyrel) 100 MG Tablet Approximate number of pills available in the home: Ativan- 5 Tablets Left Oxycodone- 5 Tablets Left Trazodone- None left Confirmed and updated correct pharmacy: Yes Reminded patient of 3 business day refill policy on all medication refill requests: Yes Notified patient to call pharmacy to confirm prescription ready for pickup and to call office if not available within 3 business days: Yes Date of last appointment: 10/30/23 Date of next appointment: N/A [id number] Telephone encounter Note* Telephone Encounter - MERRICK Ansari CNP - 11/25/2023 11:53 AM EDT Reviewed oaars. Eprescribed oxycodone and ativan [facility] [id number] Miscellaneous Notes* Telephone Encounter - MERRICK Ansari CNP - 11/25/2023 11:53 AM EDT Reviewed oaars. Eprescribed oxycodone and ativan * Telephone Encounter - Dena Camacho MA - 11/25/2023 9:45 AM EDT Confirmed patient Name and : Yes Medication name(s) and dose(s) requested: Oxycodone (Roxicodone) 5 MG IR Tablet Lorazepam (Ativan) 1 MG Tablet Approximate number of pills available in the home: Oxycodone-2 Tablets Left Ativan- 1 Tablet Left Confirmed and updated correct pharmacy: Yes Reminded patient of 3 business day refill policy on all medication refill requests: Yes Notified patient to call pharmacy to confirm prescription ready for pickup and to call office if not available within 3 business days: Yes Date of last appointment: 10/30/23 Date of next appointment: 12/04/23 documented in this [facility] [id number] Telephone encounter Note* Telephone Encounter - Dena Camacho MA - 11/25/2023 9:45 AM EDT Confirmed patient Name and : Yes Medication name(s) and dose(s) requested: Oxycodone (Roxicodone) 5 MG IR Tablet Lorazepam (Ativan) 1 MG Tablet Approximate number of pills available in the home: Oxycodone-2 Tablets Left Ativan- 1 Tablet Left Confirmed and updated correct pharmacy: Yes Reminded patient of 3 business day refill policy on all medication refill requests: Yes Notified patient to call pharmacy to confirm prescription ready for pickup and to call office if not available within 3 business days: Yes Date of last appointment: 10/30/23 Date of next appointment: 12/04/23 [id number] Telephone encounter Note* Telephone Encounter - Alka Cason, THERMAL INTELLIGENCE ANALYST - MEDICAL ASSISTANT SUPERVISOR - 11/05/2023 2:23 PM EDT Prescription Refill Request Patient Name: Danny Bobo Richard PCP: Donovan Hernandez Past Medical History: Past Medical History: Diagnosis Date Anemia LOW IRON DUE TO BLEEDING Asthma Cerebral artery occlusion with cerebral infarction (HCC) Diabetes (HCC) Endometrial adenocarcinoma (CMS/HCC) (HCC) FIGO GRADE 2 GERD (gastroesophageal reflux disease) Glaucoma 2014 Hx of blood clots Hypertension Mini stroke 2014 Thrombotic. Affected short term memory, had to relearn things, locations. Past Surgical History: Past Surgical History: Procedure Laterality Date CATARACT EXTRACTION W/ INTRAOCULAR LENS IMPLANT Right 07/09/2021 SECTION (HISTORICAL) x2. Pfannenstiel incisions. COLONOSCOPY DILATION AND CURETTAGE OF UTERUS 12/19/2017 Dr Brittny Gan[facility] ENDOMETRIAL BIOPSY IR CVC MEDIPORT PLACEMENT OTHER SURGICAL HISTORY 12/09/2019 Robotic Fe-Aortic Biopsy TONSILLECTOMY (HISTORICAL) TOTAL ABDOMINAL HYSTERECTOMY 01/19/2018 Robotic hysterectomy, BSO, right pelvic sentinel LNB, left pelvic lymphadenectomy-Dr. Khang Tapia [facility] TUBAL LIGATION UPPER GASTROINTESTINAL ENDOSCOPY Allergies: Allergies Allergen Reactions Morphine Anaphylaxis and Shortness of breath Codeine Rash and Nausea And Vomiting Other reaction(s): Other (See Comments), Upset Stomach Problem List: does not have any pertinent problems on file. Current Medication List: Current Outpatient Medications on File Prior to Visit Medication Sig Dispense Refill albuterol 108 (90 Base) MCG/ACT inhaler Inhale 90 each if needed. aspirin 81 MG chewable tablet Chew 81 mg daily. bisacodyl (Dulcolax) 5 MG EC tablet Take 10 mg by mouth if needed. brimonidine (AlphaGAN P) 0.2 % ophthalmic solution Administer 1 drop into both eyes Nightly. calcium carbonate (Os-Papito) 1250 (500 Ca) MG chewable tablet Chew 1 tablet if needed. cholecalciferol (Vitamin D-3) 50 MCG (2000 UT) capsule Take 1 capsule (50 mcg) by mouth in the morning. 30 capsule 2 dicyclomine (Bentyl) 10 MG capsule Take 10 mg by mouth if needed. DULoxetine (Cymbalta) [address] capsule Take 1 capsule (30 mg) by mouth 2 times daily. Do not crush or chew. 60 capsule 5 gabapentin (Neurontin) 300 MG capsule Take 1 capsule (300 mg) by mouth 3 times daily. 90 capsule 0 latanoprost (Xalatan) 0.005 % ophthalmic solution Administer 1 drop into both eyes Nightly. LORazepam (Ativan) 1 MG tablet Take 1 tablet (1 mg) by mouth every 6 hours as needed for anxiety. 60 tablet 0 LORazepam (Ativan) 1 MG tablet Take 1 tablet (1 mg) by mouth every 8 hours as needed for anxiety for up to 14 days. (Patient taking differently: Take 1 mg by mouth every 6 hours as needed for anxiety.) 30 tablet 0 metFORMIN XR (Glucophage-XR) 500 MG 24 hr tablet Take 1,000 mg by mouth in the morning and 1,000 mgin the evening. Misc. Devices (Sitz Bath) misc Use for pain relief as needed 1 each 0 Misc. Devices (Collins Bottle/Plastic 120mL) misc Use to clean area as needed 1 each 0 naloxone (Narcan) 4 mg/0.1 mL nasal spray Administer 4 mg into affected nostril(s) if needed. ondansetron (Zofran) 8 MG tablet Take 8 mg by mouth if needed. [] oxyCODONE (Roxicodone) 5 MG immediate release tablet Take 1 tablet (5 mg) by mouth every 6 hours as needed for moderate pain (4-6) or severe pain (7- 10) for up to 5 days. 20 tablet 0 [] oxyCODONE (Roxicodone) 5 MG immediate release tablet Take 1 tablet (5 mg) by mouth every 6 hours as needed for severe pain (7-10) for up to 5 days. 15 tablet 0 pantoprazole (ProtoNix) 40 MG EC tablet Take 40 mg by mouth if needed. sennosides (Senokot) 8.6 MG tablet Take 8.6 mg by mouth in the morning and 8.6 mg in the evening. sucralfate (Carafate) 1 GM/10ML suspension Take 1 g by mouth if needed. traZODone (Desyrel) 100 MG tablet Take 1 tablet (100 mg) by mouth Nightly. 30 tablet 0 Trelegy Ellipta 200-62.5-25 MCG/ACT aerosol powder [DISCONTINUED] gabapentin (Neurontin) 300 MG capsule Take 1 capsule (300 mg) by mouth Nightly. 90 capsule 1 [DISCONTINUED] oxyCODONE (Roxicodone) 5 MG immediate release tablet Take 1 tablet (5 mg) by mouth every 6 hours as needed for severe pain (7-10) for up to 5 days. 15 tablet 0 [DISCONTINUED] sertraline (Zoloft) 100 MG tablet Take 1 tablet (100 mg) by mouth daily. (Patient taking differently: Take 100 mg by mouth Nightly.) 90 tablet 1 No current facility-administered medications on file prior to visit. Telephone call placed to patient. The identity and location of the patient was confirmed and informed consent for treatment through a remote examination was obtained. The patient's diagnosis was confirmed and necessity for prescribed drug was verified. Drug(s) to be refilled: Requested Prescriptions No prescriptions requested or ordered in this encounter The patient has underlying conditions or contraindications which preclude continuation of the medication at this time: No, Refill provided {Put your decision support here (Optional): [id number]: If the medication(s) being refilled is (are)a controlled substance please verify the following: The person is an active patient of a licensed practitioner who is a colleague of the provider Yes Drugs are being prescribed pursuant to an on-call or cross coverage agreement {Blank single:63258::Yes, No, N/A OARRS report reviewed: Yes Referrals placed: N/A Follow-Up Care and Testing: No follow-ups on file. [facility] [id number] Miscellaneous Notes* Telephone Encounter - Alka Cason THERMAL INTELLIGENCE ANALYST - MEDICAL ASSISTANT SUPERVISOR - 11/05/2023 2:23 PM EDT Prescription Refill Request Patient Name: Danny Pink PCP: Donovan Hernandez Past Medical History: Past Medical History: Diagnosis Date Anemia LOW IRON DUE TO BLEEDING Asthma Cerebral artery occlusion with cerebral infarction (HCC) Diabetes (HCC) Endometrial adenocarcinoma (CMS/HCC) (HCC) FIGO GRADE 2 GERD (gastroesophageal reflux disease) Glaucoma 2014 Hx of blood clots Hypertension Mini stroke 2014 Thrombotic. Affected short term memory, had to relearn things, locations. Past Surgical History: Past Surgical History: Procedure Laterality Date CATARACT EXTRACTION W/ INTRAOCULAR LENS IMPLANT Right 07/09/2021 SECTION (HISTORICAL) x2. Pfannenstiel incisions. COLONOSCOPY DILATION AND CURETTAGE OF UTERUS 12/19/2017 Dr Brittny Gan[facility] ENDOMETRIAL BIOPSY IR CVC MEDIPORT PLACEMENT OTHER SURGICAL HISTORY 12/09/2019 Robotic Fe-Aortic Biopsy TONSILLECTOMY (HISTORICAL) TOTAL ABDOMINAL HYSTERECTOMY 01/19/2018 Robotic hysterectomy, BSO, right pelvic sentinel LNB, left pelvic lymphadenectomy-Dr. Khang Tapia [facility] TUBAL LIGATION UPPER GASTROINTESTINAL ENDOSCOPY Allergies: Allergies Allergen Reactions Morphine Anaphylaxis and Shortness of breath Codeine Rash and Nausea And Vomiting Other reaction(s): Other (See Comments), Upset Stomach Problem List: does not have any pertinent problems on file. Current Medication List: Current Outpatient Medications on File Prior to Visit Medication Sig Dispense Refill albuterol 108 (90 Base) MCG/ACT inhaler Inhale 90 each if needed. aspirin 81 MG chewable tablet Chew 81 mg daily. bisacodyl (Dulcolax) 5 MG EC tablet Take 10 mg by mouth if needed. brimonidine (AlphaGAN P) 0.2 % ophthalmic solution Administer 1 drop into both eyes Nightly. calcium carbonate (Os-Papito) 1250 (500 Ca) MG chewable tablet Chew 1 tablet if needed. cholecalciferol (Vitamin D-3) 50 MCG (2000 UT) capsule Take 1 capsule (50 mcg) by mouth in the morning. 30 capsule 2 dicyclomine (Bentyl) 10 MG capsule Take 10 mg by mouth if needed. DULoxetine (Cymbalta) [address] capsule Take 1 capsule (30 mg) by mouth 2 times daily. Do not crush or chew. 60 capsule 5 gabapentin (Neurontin) 300 MG capsule Take 1 capsule (300 mg) by mouth 3 times daily. 90 capsule 0 latanoprost (Xalatan) 0.005 % ophthalmic solution Administer 1 drop into both eyes Nightly. LORazepam (Ativan) 1 MG tablet Take 1 tablet (1 mg) by mouth every 6 hours as needed for anxiety. 60 tablet 0 LORazepam (Ativan) 1 MG tablet Take 1 tablet (1 mg) by mouth every 8 hours as needed for anxiety for up to 14 days. (Patient taking differently: Take 1 mg by mouth every 6 hours as needed for anxiety.) 30 tablet 0 metFORMIN XR (Glucophage-XR) 500 MG 24 hr tablet Take 1,000 mg by mouth in the morning and 1,000 mgin the evening. Misc. Devices (Sitz Bath) misc Use for pain relief as needed 1 each 0 Misc. Devices (Collins Bottle/Plastic 120mL) misc Use to clean area as needed 1 each 0 naloxone (Narcan) 4 mg/0.1 mL nasal spray Administer 4 mg into affected nostril(s) if needed. ondansetron (Zofran) 8 MG tablet Take 8 mg by mouth if needed. [] oxyCODONE (Roxicodone) 5 MG immediate release tablet Take 1 tablet (5 mg) by mouth every 6 hours as needed for moderate pain (4-6) or severe pain (7- 10) for up to 5 days. 20 tablet 0 [] oxyCODONE (Roxicodone) 5 MG immediate release tablet Take 1 tablet (5 mg) by mouth every 6 hours as needed for severe pain (7-10) for up to 5 days. 15 tablet 0 pantoprazole (ProtoNix) 40 MG EC tablet Take 40 mg by mouth if needed. sennosides (Senokot) 8.6 MG tablet Take 8.6 mg by mouth in the morning and 8.6 mg in the evening. sucralfate (Carafate) 1 GM/10ML suspension Take 1 g by mouth if needed. traZODone (Desyrel) 100 MG tablet Take 1 tablet (100 mg) by mouth Nightly. 30 tablet 0 Trelegy Ellipta 200-62.5-25 MCG/ACT aerosol powder [DISCONTINUED] gabapentin (Neurontin) 300 MG capsule Take 1 capsule (300 mg) by mouth Nightly. 90 capsule 1 [DISCONTINUED] oxyCODONE (Roxicodone) 5 MG immediate release tablet Take 1 tablet (5 mg) by mouth every 6 hours as needed for severe pain (7-10) for up to 5 days. 15 tablet 0 [DISCONTINUED] sertraline (Zoloft) 100 MG tablet Take 1 tablet (100 mg) by mouth daily. (Patient taking differently: Take 100 mg by mouth Nightly.) 90 tablet 1 No current facility-administered medications on file prior to visit. Telephone call placed to patient. The identity and location of the patient was confirmed and informed consent for treatment through a remote examination was obtained. The patient's diagnosis was confirmed and necessity for prescribed drug was verified. Drug(s) to be refilled: Requested Prescriptions No prescriptions requested or ordered in this encounter The patient has underlying conditions or contraindications which preclude continuation of the medication at this time: No, Refill provided {Put your decision support here (Optional): [id number]: If the medication(s) being refilled is (are)a controlled substance please verify the following: The person is an active patient of a licensed practitioner who is a colleague of the provider Yes Drugs are being prescribed pursuant to an on-call or cross coverage agreement {Blank single:62663::Yes, No, N/A OARRS report reviewed: Yes Referrals placed: N/A Follow-Up Care and Testing: No follow-ups on file. * Telephone Encounter - Katty Jo MA - 11/05/2023 9:53 AM EDT Confirmed patient Name and : Yes Medication name(s) and dose(s) requested: Trazadone 100 mg tablet Oxycodone 5 mg IR tablet Lorezapam (ativan) 1mg tablet Approximate number of pills available in the home: 1 tab 0 tabs 0 tabs Confirmed and updated correct pharmacy: Yes Reminded patient of 3 business day refill policy on all medication refill requests: Yes Notified patient to call pharmacy to confirm prescription ready for pickup and to call office if not available within 3 business days: Yes Date of last appointment: 09/23/2023 Date of next appointment: Visit date not found documented in this [facility]07-17-2024 Telephone encounter Note* Telephone Encounter - Katty Jo MA - 11/05/2023 9:53 AM EDT Confirmed patient Name and : Yes Medication name(s) and dose(s) requested: Trazadone 100 mg tablet Oxycodone 5 mg IR tablet Lorezapam (ativan) 1mg tablet Approximate number of pills available in the home: 1 tab 0 tabs 0 tabs Confirmed and updated correct pharmacy: Yes Reminded patient of 3 business day refill policy on all medication refill requests: Yes Notified patient to call pharmacy to confirm prescription ready for pickup and to call office if not available within 3 business days: Yes Date of last appointment: 09/23/2023 Date of next appointment: [id number] of Present illness Narrative* Alka Cason APRN - G[facility] - 10/30/2023 2:00 PM EDT Images from the original note were not included. [facility] [address], [address] [place] [id number] Visit type: new patient, consultation Reason for Visit: Danny Pink is a 68 y.o. female with chief complaint of Pain, Fatigue, Shortness of Breath, Depression, Anxiety, and Constipation Assessment and Plan Danny was seen today for pain, fatigue, shortness of breath, depression, anxiety and constipation. 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 Notes crushing bone pain in bilateral hips into legs and feet. On gabapentin 300 mg, but takes this intermittent for feet neuropathy. Will increase gabapentin to 300 mg po TID and start on cymbalta 30 mg daily. - DULoxetine (Cymbalta) [address] capsule; Take 1 capsule (30 mg) by mouth 2 times daily. Do not crush or chew. - Drug Monitor Panel 5 Screen, Urine ([facility]); Future Recurrent carcinoma of endometrium (HCC)- under care of Dr. Quiñonez, with multiple treatment lines and most recently simple partial vaginectomy. - Ambulatory referral to Palliative - gabapentin (Neurontin) 300 MG capsule; Take 1 capsule (300 mg) by mouth 3 times daily. - DULoxetine (Cymbalta) [address] capsule; Take 1 capsule (30 mg) by mouth 2 times daily. Do not crush or chew. - oxyCODONE (Roxicodone) 5 MG immediate release tablet; Take 1 tablet (5 mg) by mouth every 6 hoursas needed for severe pain (7-10) for up to 5 days. - Drug Monitor Panel 5 Screen, Urine ([facility]); Future Endometrial cancer (CMS/HCC) (HCC)-see above - Ambulatory referral to Palliative Cancer associated pain- for vaginal pain s/p surgery- continue with oxycodone 5mg po q6 h prn pain. - gabapentin (Neurontin) 300 MG capsule; Take 1 capsule (300 mg) by mouth 3 times daily. - DULoxetine (Cymbalta) [address] capsule; Take 1 capsule (30 mg) by mouth 2 times daily. Do not crush or chew. - Drug Monitor Panel 5 Screen, Urine ([facility]); Future Anxiety associated with cancer diagnosis (HCC)- start on cymbalta. - oxyCODONE (Roxicodone) 5 MG immediate release tablet; Take 1 tablet (5 mg) by mouth every 6 hoursas needed for severe pain (7-10) for up to 5 days. Orders Placed This Encounter Procedures Drug Monitor Panel 5 Screen, Urine ([facility]) Standing Status: Future Standing Expiration Date: 10/29/2024 Follow-up: 4 weeks Subjective Danny Pink is a 68 y.o. 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 Tolerated treatment well. Due for repeat imaging to assess response to treatment. PET ordered. Unfortunately, there appears to be a new isolated vaginal lesion. Had simple partial vaginectomyunder care of Dr. Quiñonez on 10/06/23. 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 Danny is seen today to establish care. 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 She notes that after intial chemotherapy carbo/taxol has been experiencing bone crushing, radiating pain in bilateral hips down into feet. She has been having oxycodone 5-10 mg prescribed for the last 4 years. Currently script is 5mg po q 6h prn pain, ome 30. She notes that this pain worsens at night, and causes her difficulty resting. Complains of tingeling in bilateral toes- for this uses gabapentin 300mg nightly. Notes difficulty with her asthma and SOB. Notes that she has trouble falling and staying asleep, feels like sometimes her trazodone doesn't help enough. Pain Assessment (If Pain Scale >0) Description: sharp and crushing Duration: year(s) Frequency:Daily Location: bones, hips into legs Alleviating Factors: pain medication Exacerbating Factors: unable to associate with any factor Effect:Change in Function and Interference with Activities, worst at night Phenix Symptom Assessment Score Phenix Symptom Assessment System Pain Score: 9 Tiredness Score: 9 Nausea Score: 2 Depression Score: 8 Anxiety Score: 8 Drowsiness Score: 9 Appetite Score: 4 Wellbeing Score: Best feeling of wellbeing Dyspnea Score: Worst possible shortness of breath Other Problem Score: 5 Assessed by:patient Review of Systems PCP: Donovan Hernandez Oncologist:Khang Current Therapies: s/p vaginal surgery Goals of care: Live Longer Code status: Full Code Advance directives: aware of documents Surrogate: Child Prognosis: unknown Spiritual assessment: No spiritual distress identified Bereavement and grief: Grief Issues Not Identified Social history: Marital status: single Children: 4 chilldren Living status: alone 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 Constitutional: Appearance: Normal appearance. She is normal weight. Comments: Flat mood HENT: Mouth/Throat: Mouth: Mucous membranes are moist. Eyes: General: No scleral icterus. Extraocular Movements: Extraocular movements intact. Pupils: Pupils are equal, round, and reactive to light. Comments: Pupils 3mm bilaterally Cardiovascular: Rate and Rhythm: Normal rate and regular rhythm. Pulses: Normal pulses. Pulmonary: Effort: Pulmonary effort is normal. No respiratory distress. Breath sounds: Normal breath sounds. No wheezing or rales. Comments: Breathing with mouth open Abdominal: General: Abdomen is flat. There is no distension. Tenderness: There is no abdominal tenderness. Musculoskeletal: General: Normal range of motion. Right lower leg: No edema. Left lower leg: No edema. Skin: General: Skin is warm. Coloration: Skin is pale. Findings: No rash. Neurological: General: No focal deficit present. Mental Status: She is alert and oriented to person, place, and time. Cranial Nerves: No cranial nerve deficit. Sensory: No sensory deficit. Psychiatric: Mood and Affect: Mood normal. Behavior: Behavior normal. ECO - Restricted in physically strenuous activity but ambulatory and able to carry out work of a light or sedentary nature, e.g., light house work, office work PPS:60-70 Data Reviewed and Summarized Opiate Prescribing OARRS was reviewed and is supportive of the care plan. Controlled Substance Agreement Form completed in past 12 months: yes OARRS Report Review: Report reviewed Toxicology Screen: ordered today at [facility] The qualifying diagnosis iscancer The duration of opioid prescription is longer than 7 days because malignancy This patient requires opioid dosage greater than 30 oral morphine equivalents due to advanced malignancy and symptoms could not be controlled with non-opioid alternatives alone or with lower doses ofopiates. Planned duration of therapy: indefinite due to terminal illness and progressive cancer Attempts made to wean opiate therapy made: No- patient is using frequent PRN doses and this is not indicatedOpiate Risk Assessment Tool SOAPP given yes SOAPP score: <7, low risk Red Flags for Abuse or Diversion: None Identified Results/Verification of Data Review Objective data reviewed: Labs: Lab Results Component Value Date WBC 7.4 08/19/2022 HGB 12.3 08/19/2022 HCT 37.6 08/19/2022 MCV 89.8 08/19/2022 PLT 223 08/19/2022 Lab Results Component Value Date NA 135 08/19/2022 K 5.0 08/19/2022 CL 105 08/19/2022 CO2 22 08/19/2022 BUN 20 (H) 08/19/2022 CREATININE 0.73 08/19/2022 GLUCOSE 102 (H) 08/19/2022 CALCIUM 9.1 08/19/2022 PROT 7.0 11/28/2021 BILITOT 0.2 11/28/2021 ALKPHOS 88 11/28/2021 AST 20 11/28/2021 LABGLOM 70 09/05/2021 No results found for: PSA, CEA, CA125, GH3257, CA199 * Katty Jo MA - 10/30/2023 2:00 PM EDT What is the most important item you want to discuss with your provider today? Not at this time Complete med rec line by line. Yes Do you need refills on any medications today? No Pharmacy confirmed in Med management section. Yes documented in this [facility]07-11-2024 History of Present illness Narrative* MERRICK Dela Cruz CNP - 10/30/2023 11:30 AM EDT Chief Complaint Patient presents with Follow-up HISTORY OF THE PRESENT ILLNESS: Danny Pink is a pleasant 68 y.o. female with recurrent endometrial cancer. She has a history of stage IB, FIGO grade 2 endometrioid endometrial adenocarcinoma, +LVSI, +washings, MMR protein testing normal. She underwent robotic endometrial cancer staging on 01/19/2018. Met diagnostic criteria for high-intermediate risk of recurrence. Completed pelvic radiation on 04/27/18. Unfortunately, the patient complained of new onset of back pain in September 2019. She underwent a computed tomography scan of the abdomen and pelvis which showed an enlarged left periaortic lymph node. PET scan confirmed that this was a focus of FDG avidity. There were no other sites of metastatic disease on the PET scan. Management options were discussed with the patient at length. We elected to proceed with an attempt at surgical resection. She underwent attempted robotic resection of the left periaortic lymph node on 12/09/2019. Unfortunately, there was evidence of extracapsular extension of disease and the lymph node was matted and densely adherent to the abdominal aorta. There is no way tocompletely surgically resect the disease. Biopsies were obtained confirming the diagnosis. Patient was started on systemic chemotherapy with carboplatin and paclitaxel. Patient completed cycle #6 carbo/taxol on 04/19/2020. She was on a reduced dose of Taxol 135 mg/m2 due to arthralgias and myalgias. 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 I recommended 3 additional cycles of chemotherapy. Completed #9 cycles of carbo/taxol. Overall, she tolerated chemotherapy well. She does have arthralgias and myalgias that are better tolerated on the reduced dose of Taxol. Repeat PET 08/25/2020: IMPRESSION: There has been significant improvement of intensity of FDG accumulation within a mildly enlarged left periaortic lymph node when compared to the study from 06/16/2020. On the current examination, the node demonstrates mild FDG accumulation. Attention to this area is recommended on subsequent examinations. There are no new areas of abnormal FDG accumulation seen to suggest progression of malignancy. We discussed treatment options - continued carbo/taxol versus hormonal therapy. We switched to tamoxifen/megace. Patient was unable to tolerate hormonal therapy. When she was seen in the office in November 2020 there was a new vaginal lesion. Biopsy confirmed recurrent endometrial cancer. The patientwas started on systemic chemotherapy with Keytruda and Lenvima. She was unable to tolerate Lenvima which was discontinued. She underwent a PET scan on 02/22/2021 to assess response to treatment which showed: IMPRESSION: There is fairly intense, abnormal FDG accumulation within a mildly enlarged left para-aortic lymph node, consistent with residual or recurrent malignancy. When compared to the examination dated 12/08/2020, both the size and intensity of FDG uptake within this node has increased. No new areas of abnormal FDG accumulation are identified. On examination, the periurethral lesion that was somewhat smaller in size. The decision was made tocontinue systemic immunotherapy with Keytruda and consider re-irradiation of the left periaortic lymph node. Received radiation therapy in [place] with Dr. Melendez. Treated from April 25 through May 29, 2021. Received 45 Gy to the periaortic lymph nodes with a simultaneous boost to 55 Gy to the gross disease. Overall, tolerated treatments well and was able to continue Keytruda during her radiation. Does have arthralgia/myalgias several days after Keytruda. Having a rash. Just on her face, happensabout 1 week after the Keytruda. Recurrent urinary tract infections after Keytruda. We are treatingwith prophylactic Bactrim following treatment. PET 08/20/2021: IMPRESSION: Previously identified FDG avid left para-aortic lymph node on the study from 02/22/2021 has decreased in size and intensity of FDG accumulation. No new FDG avid lymphadenopathy is seen within the abdomen or pelvis. There is a new focus of increased FDG uptake within the perineum in the expected location of the vaginal vault or near the vaginal cuff. The intensity of uptake is suspicious for residual or recurrent malignancy. Referred to radiation oncology for interstitial brachytherapy at [facility]. Underwent treatment 12/2021. Post treatment reported blisters on the labia that were painful with drainage. Moist desquamation. Decided to discontinue Keytruda. MRI 04/17/2022: FINDINGS: Uterus: The uterus is surgically absent. The previously seen focus of signal abnormality with abnormal enhancement or restricted diffusion along the posterior wall of the vagina is present, with resolution of the previously seen restricted diffusion and abnormal enhancement. No new pelvic masses identified. Adnexa: No adnexal mass. Neither ovary is identified Free fluid: none identified Lymphadenopathy: none identified Other soft tissue structures: No other abnormality identified Osseous structures: Normal IMPRESSION: Resolution of the previously seen mass along the posterior wall of the vagina. No new pelvic mass. PET 04/25/2022: IMPRESSION: There has been significant improvement of the previously noted area of abnormal FDG accumulation inthe expected location of the vagina or vaginal cuff on the study from 09/07/2021. On the current examination, there is a small area of moderate FDG accumulation at the left margin of the vaginal cuff.This could reflect inflammation following radiation therapy, however a small area of residual or recurrent malignancy cannot be excluded. Continued follow-up is recommended. Borderline enlarged left paratracheal lymph node demonstrate mild to moderate FDG accumulation, unchanged in size and intensity of FDG accumulation when compared to the study from 09/07/2021. No new FDG avid lymphadenopathy or other mass is seen within the abdomen or pelvis. On exam there was an exophytic lesion in the mid-vagina. Biopsy confirmed persistent endometrial cancer. Patient was taken for simple partial vaginectomy 05/2022. Pathology confirmed malignancy, negative margins. Taken to the OR for simple partial vulvectomy (removal of right labia minora) and simple partial vaginectomy on 08/19/2022. Final pathology showed focally+ poorly differentiated carcinoma. ER - weak, patchy positive. PET scan 09/09/2022: IMPRESSION: Impression: No convincing evidence of residual malignancy. Follow-up recommended. PET 04/10/2023: IMPRESSION: There is an intensely FDG avid 1 cm nodule within the posterior aspect of the right upper lobe, consistent with residual or recurrent malignancy. Referred back to radiation oncology for SBRT. Dr. Melendez. [place]. 5 treatments total. Completed treatments 05/29/2023. Interval History: Patient presents to the office today for follow up for simple partial vaginectomy on 10/06/23. Final pathology shows: Final Diagnosis VAGINA, SIMPLE PARTIAL VAGINECTOMY - FIBROUS TISSUE INVOLVED BY POORLY DIFFERENTIATED ADENOCARCINOMA. Interval History: Since her surgery she has been doing well and is without complaints. She denies fevers, chills, nausea, vomiting, and bowel or bladder dysfunction. Pain is well controlled. No drainage from incisions. No abnormal vaginal bleeding or discharge. Having some mild discharge. Mild spotting. Past Medical History: Diagnosis Date Anemia LOW IRON DUE TO BLEEDING Asthma Cerebral artery occlusion with cerebral infarction (HCC) Diabetes (HCC) Endometrial adenocarcinoma (CMS/HCC) (HCC) FIGO GRADE 2 GERD (gastroesophageal reflux disease) Glaucoma 2014 Hx of blood clots Hypertension Mini stroke 2014 Thrombotic. Affected short term memory, had to relearn things, locations. Past Surgical History: Procedure Laterality Date CATARACT EXTRACTION W/ INTRAOCULAR LENS IMPLANT Right 07/09/2021 SECTION (HISTORICAL) x2. Pfannenstiel incisions. COLONOSCOPY DILATION AND CURETTAGE OF UTERUS 12/19/2017 Dr Brittny [facility] ENDOMETRIAL BIOPSY IR CVC MEDIPORT PLACEMENT OTHER SURGICAL HISTORY 12/09/2019 Robotic Fe-Aortic Biopsy TONSILLECTOMY (HISTORICAL) TOTAL ABDOMINAL HYSTERECTOMY 01/19/2018 Robotic hysterectomy, BSO, right pelvic sentinel LNB, left pelvic lymphadenectomy-Dr. Khang Tapia [facility] TUBAL LIGATION UPPER GASTROINTESTINAL ENDOSCOPY Family History Problem Relation Name Age of Onset Breast cancer Mother 90 Ovarian cancer Neg Hx Colon cancer Neg Hx Uterine cancer Neg Hx Social History Socioeconomic History Marital status: Spouse name: Not on file Number of children: Not on file Years of education: Not on file Highest education level: Not on file Occupational History Not on file Tobacco Use Smoking status: Former Current packs/day: 0.00 Average packs/day: 1.5 packs/day for 20.0 years (30.0 ttl pk-yrs) Types: Cigarettes Start date: 01/12/1983 Quit date: 01/12/2003 Years since quittin.8 Smokeless tobacco: Never Vaping Use Vaping status: Never Used Substance and Sexual Activity Alcohol use: Not Currently Comment: socially Drug use: No Sexual activity: Not Currently control/protection: Surgical Comment: hysterectomy Other Topics Concern Not on file Social History Narrative Not on file Social Determinants of Health Financial Resource Strain: Not on file Food Insecurity: Not on file Transportation Needs: Not on file Physical Activity: Not on file Stress: Not on file Social Connections: Not on file Intimate Partner Violence: Unknown (10/06/2023) Humiliation, Afraid, Rape, and Kick questionnaire Fear of Current or Ex-Partner: No Emotionally Abused: No Physically Abused: No Sexually Abused: Not on file Housing Stability: Not on file Current Outpatient Medications on File Prior to Visit Medication Sig Dispense Refill albuterol 108 (90 Base) MCG/ACT inhaler Inhale 90 each if needed. aspirin 81 MG chewable tablet Chew 81 mg daily. bisacodyl (Dulcolax) 5 MG EC tablet Take 10 mg by mouth if needed. brimonidine (AlphaGAN P) 0.2 % ophthalmic solution Administer 1 drop into both eyes Nightly. calcium carbonate (Os-Papito) 1250 (500 Ca) MG chewable tablet Chew 1 tablet if needed. cholecalciferol (Vitamin D-3) 50 MCG (2000 UT) capsule Take 1 capsule (50 mcg) by mouth in the morning. 30 capsule 2 dicyclomine (Bentyl) 10 MG capsule Take 10 mg by mouth if needed. latanoprost (Xalatan) 0.005 % ophthalmic solution Administer 1 drop into both eyes Nightly. LORazepam (Ativan) 1 MG tablet Take 1 tablet (1 mg) by mouth every 6 hours as needed for anxiety. 60 tablet 0 LORazepam (Ativan) 1 MG tablet Take 1 tablet (1 mg) by mouth every 8 hours as needed for anxiety for up to 14 days. (Patient taking differently: Take 1 mg by mouth every 6 hours as needed for anxiety.) 30 tablet 0 metFORMIN XR (Glucophage-XR) 500 MG 24 hr tablet Take 1,000 mg by mouth in the morning and 1,000 mgin the evening. Misc. Devices (Sitz Bath) misc Use for pain relief as needed 1 each 0 Misc. Devices (Collins Bottle/Plastic 120mL) misc Use to clean area as needed 1 each 0 naloxone (Narcan) 4 mg/0.1 mL nasal spray Administer 4 mg into affected nostril(s) if needed. ondansetron (Zofran) 8 MG tablet Take 8 mg by mouth if needed. oxyCODONE (Roxicodone) 5 MG immediate release tablet Take 1 tablet (5 mg) by mouth every 6 hours asneeded for moderate pain (4-6) or severe pain (7-10) for up to 5 days. 20 tablet 0 pantoprazole (ProtoNix) 40 MG EC tablet Take 40 mg by mouth if needed. sennosides (Senokot) 8.6 MG tablet Take 8.6 mg by mouth in the morning and 8.6 mg in the evening. sucralfate (Carafate) 1 GM/10ML suspension Take 1 g by mouth if needed. traZODone (Desyrel) 100 MG tablet Take 1 tablet (100 mg) by mouth Nightly. 30 tablet 0 Trelegy Ellipta 200-62.5-25 MCG/ACT aerosol powder [DISCONTINUED] gabapentin (Neurontin) 300 MG capsule Take 1 capsule (300 mg) by mouth Nightly. 90 capsule 1 [DISCONTINUED] gabapentin (Neurontin) 300 MG capsule Take 1 capsule (300 mg) by mouth Nightly. 90 capsule 1 [DISCONTINUED] oxyCODONE (Roxicodone) 10 MG immediate release tablet Take 0.5 tablets (5 mg) by mouth every 6 hours as needed for moderate pain (4-6) or severe pain (7-10). 56 tablet 0 [DISCONTINUED] oxyCODONE (Roxicodone) 5 MG immediate release tablet Take 1 tablet (5 mg) by mouth every 6 hours as needed for severe pain (7-10) for up to 5 days. 15 tablet 0 [DISCONTINUED] sertraline (Zoloft) 100 MG tablet Take 1 tablet (100 mg) by mouth daily. (Patient taking differently: Take 100 mg by mouth Nightly.) 90 tablet 1 No current facility-administered medications on file prior to visit. Allergies as of 10/30/2023 - Reviewed 10/30/2023 Allergen Reaction Noted Morphine Anaphylaxis and Shortness of breath 11/22/2021 Codeine Rash and Nausea And Vomiting 12/30/2017 Review of Systems A 12 point review of systems was performed and is as per the history of the present illness, all other systems were reviewed and are negative. Vitals: 10/30/23 1138 BP: 122/86 Body mass index is 37.59 kg/m . Physical Exam Vitals reviewed. Constitutional: General: She is not in acute distress. Appearance: Normal appearance. She is not ill-appearing, toxic-appearing or diaphoretic. HENT: Head: Normocephalic and atraumatic. Eyes: General: No scleral icterus. Extraocular Movements: Extraocular movements intact. Cardiovascular: Rate and Rhythm: Normal rate. Pulmonary: Effort: Pulmonary effort is normal. No respiratory distress. Genitourinary: Urethra: No prolapse, urethral pain, urethral swelling or urethral lesion. Vagina: Normal. Uterus: Absent. Comments: Previous areas of chronic non-healing ulcerative skin changes had resolved. Well-healed vaginectomy site without drainage, or erythremia Musculoskeletal: Right lower leg: No edema. Left lower leg: No edema. Skin: General: Skin is warm and dry. Coloration: Skin is not jaundiced or pale. Neurological: General: No focal deficit present. Mental Status: She is alert. Motor: No weakness. Coordination: Coordination normal. Gait: Gait normal. Psychiatric: Mood and Affect: Mood normal. Behavior: Behavior normal. ASSESSMENT/PLAN: Diagnosis Plan 1. Post-operative state Danny Pink is a 68 y.o. 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 Tolerated treatment well. Here today for post-op check. Doing well from a post-operative standpoint. Post-operative instructions reviewed. Patient was given a copy of the pathology report for her records. Patient has appointment today with palliative care for pain management. Follow-up in 2 months. The patient had an opportunity to ask questions, all of which were answered to the best of my ability. She is in agreement with the above noted plan. I spent a total time of 25 minutes reviewing previous notes, test results, obtaining history, communicating results to the patient as well as counseling the patient, documenting clinical information in the patient's electronic medical record and coordinating care for the patient. Disclaimer: This note was dictated by speech recognition. I apologize for minor errors in wire threader which may be present. documented in this encounterSSalem City [id number] Note* Addendum Note - MERRICK Dela Cruz CNP - 10/27/2023 10:02 AM EDTAddended by: MALINDA BOONE on: 10/27/2023 10:02 AM Modules accepted: [facility]Sksvqw14-84-0157 Note* Addendum Note - MERRICK Dela Cruz CNP - 10/27/2023 10:02 AM EDTAddended by: MALINDA BOONE on: 10/27/2023 10:02 AM Modules accepted: Orders [facility] HospitalWdnsra87-31-8514 NoteAddended by: MALINDA BOONE on: 10/27/2023 10:02 AM Modules accepted: [facility]07-08-2024 Miscellaneous Notes* Addendum Note - MERRICK Dela Cruz CNP - 10/27/2023 10:02 AM EDTAddended by: MALINDA BOONE on: 10/27/2023 10:02 AM Modules accepted: Orders * Telephone Encounter - MERRICK Dela Cruz CNP - 10/27/2023 10:01 AM EDT Prescription sent into patient pharmacy, OAARS report ran and reviewed. * Telephone Encounter - Kyle Mckinney - 10/27/2023 9:30 AM EDT Patient requesting a refill for gabapentin and oxycodone be sent to pharmacy on file, thank you * Addendum Note - MERRICK Dela Cruz CNP - 10/21/2023 12:35 PM EDTAddended by: MALINDA BOONE on: 10/21/2023 12:35 PM Modules accepted: Orders * Telephone Encounter - MERRICK Dela Cruz CNP - 10/21/2023 12:34 PM EDT Refilled prescription to patients pharmacy. OAARS report ran * Telephone Encounter - Kyle Mckinney - 10/21/2023 9:34 AM EDT Patient returning missed call, please contact when able, thank you * Addendum Note - MERRICK Dela Cruz CNP - 10/21/2023 9:25 AM EDTAddended by: MALINDA BOONE on: 10/21/2023 09:25 AM Modules accepted: Orders * Telephone Encounter - MERRICK Dela Cruz CNP - 10/21/2023 9:25 AM EDT Refilled Ativan to patient's pharmacy. OARRS report ran. I did call and leave patient a message regarding oxycodone prescription. Encourage patient to give the office a call back. * Telephone Encounter - Kyle Mckinney - 10/21/2023 8:45 AM EDT Patient requesting Oxycodone and Lorazepam be sent to pharmacy on file, thank you documented in this encounterSSalem City [id number] Telephone encounter Note* Telephone Encounter - MERRICK Dela Cruz CNP - 10/27/2023 10:01 AM EDT Prescription sent into patient pharmacy, OAARS report ran and reviewed. [facility] HospitalXjtaxl23-31-1001 Telephone encounter Note* Telephone Encounter - Kyle Mckinney - 10/27/2023 9:30 AM EDT Patient requesting a refill for gabapentin and oxycodone be sent to pharmacy on file, thank you [facility] [id number] Telephone encounter Note* Telephone Encounter - Alka Pérez - 10/21/2023 12:51 PM EDT Name of caller: Myron Contact phone number: [phone] Relationship to Patient: [facility] Provider: Jame Boone Practice: [facility] [employer] Chief Complaint/Reason for Call: Myron stated a script for oxyCODONE (Roxicodone) 5 MG immediate release tablet was sent to the pharmacy and stated that patient got a fill for 28 days worth of oxyCODONE (Roxicodone) 10 MG immediate release tablet on 10/06/23. Myron stated he wanted to make sure the provider is aware. Please call Myron back to advise. Best time of day caller can be reached: Any Patient advised that office/PCP has 24-48 business hours to return their call: No [facility] HospitalSlvxhj49-77-8913 Miscellaneous Notes* Telephone Encounter - Alka Pérez - 10/21/2023 12:51 PM EDT Name of caller: Myron Contact phone number: [phone] Relationship to Patient: Maulik [facility] Provider: Jame Boone Practice: [facility] [employer] Chief Complaint/Reason for Call: Myron stated a script for oxyCODONE (Roxicodone) 5 MG immediate release tablet was sent to the pharmacy and stated that patient got a fill for 28 days worth of oxyCODONE (Roxicodone) 10 MG immediate release tablet on 10/06/23. Myron stated he wanted to make sure the provider is aware. Please call Myron back to advise. Best time of day caller can be reached: Any Patient advised that office/PCP has 24-48 business hours to return their call: No documented in this [facility]07-02-2024 Note* Addendum Note - MERRICK Dela Cruz CNP - 10/21/2023 12:35 PM EDTAddended by: MALINDA BOONE on: 10/21/2023 12:35 PM Modules accepted: Orders [facility] [id number] Note* Addendum Note - MERRICK Dela Cruz CNP - 10/21/2023 12:35 PM EDTAddended by: MALINDA BOONE on: 10/21/2023 12:35 PM Modules accepted: Orders [facility] HospitalTjlnlr62-28-4304 Note* Addendum Note - MERRICK Dela Cruz CNP - 10/21/2023 12:35 PM EDTAddended by: MALINDA BOONE on: 10/21/2023 12:35 PM Modules accepted: Orders [facility] HospitalBjjyoy86-97-5980 Note* Addendum Note - MERRICK Dela Cruz CNP - 10/21/2023 12:35 PM EDTAddended by: MALINDA BOONE on: 10/21/2023 12:35 PM Modules accepted: Orders [facility] HospitalCcffyf99-48-8701 Note* Addendum Note - MERRICK Dela Cruz CNP - 10/21/2023 12:35 PM EDTAddended by: MALINDA BOONE on: 10/21/2023 12:35 PM Modules accepted: Orders [address]Cmwnor28-80-8016 Note* Addendum Note - MERRICK Dela Cruz CNP - 10/21/2023 12:35 PM EDTAddended by: MALINDA BOONE on: 10/21/2023 12:35 PM Modules accepted: Orders [address]Asbpsw65-14-8378 Note* Addendum Note - MERRICK Dela Cruz CNP - 10/21/2023 12:35 PM EDTAddended by: MALINDA BOONE on: 10/21/2023 12:35 PM Modules accepted: Orders [facility] HospitalVnbmom20-44-8626 NoteAddended by: MALINDA BOONE on: 10/21/2023 12:35 PM Modules accepted: [facility]07-02-2024 Miscellaneous Notes* Addendum Note - MERRICK Dela Cruz CNP - 10/21/2023 12:35 PM EDTAddended by: MALINDA BOONE on: 10/21/2023 12:35 PM Modules accepted: Orders * Telephone Encounter - MERRICK Dela Cruz CNP - 10/21/2023 12:34 PM EDT Refilled prescription to patients pharmacy. OAARS report ran * Telephone Encounter - Kyle Mckinney - 10/21/2023 9:34 AM EDT Patient returning missed call, please contact when able, thank you * Addendum Note - MERRICK Dela Cruz CNP - 10/21/2023 9:25 AM EDTAddended by: MALINDA BOONE on: 10/21/2023 09:25 AM Modules accepted: Orders * Telephone Encounter - MERRICK Dela Cruz CNP - 10/21/2023 9:25 AM EDT Refilled Ativan to patient's pharmacy. OARRS report ran. I did call and leave patient a message regarding oxycodone prescription. Encourage patient to give the office a call back. * Telephone Encounter - Kyle Mckinney - 10/21/2023 8:45 AM EDT Patient requesting Oxycodone and Lorazepam be sent to pharmacy on file, thank you documented in this encounterSSalem City [id number] Telephone encounter Note* Telephone Encounter - MERRICK Dela Cruz CNP - 10/21/2023 12:34 PM EDT Refilled prescription to patients pharmacy. OAARS report ran [facility] [id number] Telephone encounter Note* Telephone Encounter - Kyle Mckinney - 10/21/2023 9:34 AM EDT Patient returning missed call, please contact when able, thank you [id number] Note* Addendum Note - MERRICK Dela Cruz CNP - 10/21/2023 9:25 AM EDTAddended by: MALINDA BOONE on: 10/21/2023 09:25 AM Modules accepted: Orders [address]Rbnowq46-07-0898 Note* Addendum Note - MERRICK Dela Cruz CNP - 10/21/2023 9:25 AM EDTAddended by: MALINDA BOONE on: 10/21/2023 09:25 AM Modules accepted: Orders [address]Yrlyme14-12-1369 Note* Addendum Note - MERRICK Dela Cruz CNP - 10/21/2023 9:25 AM EDTAddended by: MALINDA BOONE on: 10/21/2023 09:25 AM Modules accepted: Orders [facility] HospitalAncurl42-92-0210 Note* Addendum Note - MERRICK Dela Cruz CNP - 10/21/2023 9:25 AM EDTAddended by: MALINDA BOONE on: 10/21/2023 09:25 AM Modules accepted: Orders [id number] Note* Addendum Note - MERRICK Dela Cruz CNP - 10/21/2023 9:25 AM EDTAddended by: MALINDA BOONE on: 10/21/2023 09:25 AM Modules accepted: Orders [facility] HospitalHxdmzh45-43-7566 Note* Addendum Note - MERRICK Dela Cruz CNP - 10/21/2023 9:25 AM EDTAddended by: MALINDA BOONE on: 10/21/2023 09:25 AM Modules accepted: Orders [facility] HospitalPagwmz60-02-7380 Note* Addendum Note - MERRICK Dela Cruz CNP - 10/21/2023 9:25 AM EDTAddended by: MALINDA BOONE on: 10/21/2023 09:25 AM Modules accepted: Orders [facility] HospitalAtehnq97-01-9877 NoteAddended by: MALINDA BOONE on: 10/21/2023 09:25 AM Modules accepted: [facility]07-02-2024 Telephone encounter Note* Telephone Encounter - MERRICK Dela Cruz CNP - 10/21/2023 9:25 AM EDT Refilled Ativan to patient's pharmacy. OARRS report ran. I did call and leave patient a message regarding oxycodone prescription. Encourage patient to give the office a call back. [facility] [id number] Telephone encounter Note* Telephone Encounter - Kyle Mckinney - 10/21/2023 8:45 AM EDT Patient requesting Oxycodone and Lorazepam be sent to pharmacy on file, thank you [facility] HospitalDixhbd53-91-4842 Note* Addendum Note - MERRICK Dela Cruz CNP - 10/16/2023 12:10 PM EDTAddended by: MALINDA BOONE on: 10/16/2023 12:10 PM Modules accepted: Orders [facility] HospitalBsfyeg21-20-2585 Note* Addendum Note - MERRICK Dela Cruz CNP - 10/16/2023 12:10 PM EDTAddended by: MALINDA BOONE on: 10/16/2023 12:10 PM Modules accepted: Orders [facility] HospitalCnrafe66-23-1236 NoteAddended by: MALINDA BOONE on: 10/16/2023 12:10 PM Modules accepted: [facility]06-27-2024 Telephone encounter Note* Telephone Encounter - MERRICK Dela Cruz CNP - 10/16/2023 12:10 PM EDT Prescription sent to patients pharmacy. [facility] [id number] Miscellaneous Notes* Addendum Note - MERRICK Dela Cruz CNP - 10/16/2023 12:10 PM EDTAddended by: MALINDA BOONE on: 10/16/2023 12:10 PM Modules accepted: Orders * Telephone Encounter - MERRICK Dela Cruz CNP - 10/16/2023 12:10 PM EDT Prescription sent to patients pharmacy. * Telephone Encounter - Kyle Mckinney - 10/16/2023 8:02 AM EDT Patient would like a refill for Trazodone be sent to pharmacy on file, thank you * Telephone Encounter - MERRICK Dela Cruz CNP - 09/30/2023 8:22 AM EDT Prescription refilled and sent to pharmacy. OARRS report ran and reviewed. * Telephone Encounter - Kyle Mckinney - 09/29/2023 2:56 PM EDT Patient would like a refill for oxycodone to be sent to pharmacy on file, thank you * Addendum Note - MERRICK Dela Cruz CNP - 09/23/2023 11:52 AM EDTAddended by: MALINDA BOONE on: 09/23/2023 11:52 AM Modules accepted: Orders * Telephone Encounter - MERRICK Dela Cruz CNP - 09/23/2023 11:51 AM EDT Spoke with patient regarding refills. OARRS report ran and reviewed. Also discussed upcoming appointment with palliative care and the importance of keeping that appointment. Verbalizes understanding * Telephone Encounter - MERRICK Dela Cruz CNP - 09/23/2023 11:00 AM EDT Called patient and left a message to give me a call back to discuss her refills. * Telephone Encounter - Katty Jo MA - 09/23/2023 9:58 AM EDT patient called in requesting pain medication refills. Informed her that because we have not seen her yet in palliative, that our providers cannot fill her prescriptions that she would have to contactthe prescribing provider. Patient verbalized understanding. Patient cancelled appt on 09/04/23 withAlka Cason and is rescheduled to see her on 10/30/2023 * Telephone Encounter - Kyle Mckinney - 09/23/2023 9:55 AM EDT Patient states that palliative cannot refill the prescriptions since they haven't seen the patient yet. Please advise, thank you * Telephone Encounter - Kyle Mckinney - 09/23/2023 9:37 AM EDT LVM that palliative will be assiting pt with the refills. Provided [phone] as the number for her to contact. Will be sending the requests to palliative as well * Telephone Encounter - Kyle Mckinney - 09/23/2023 8:26 AM EDT Patient would like a refill for trazodone, ativan, and oxycodone sent to pharmacy on file, thank you documented in this encounterSSalem City [id number] Telephone encounter Note* Telephone Encounter - Kyle Mckinney - 10/16/2023 8:02 AM EDT Patient would like a refill for Trazodone be sent to pharmacy on file, thank you [facility] [id number] Note* Perioperative Nursing Note - Joan Anton RN - 10/06/2023 2:08 PM EDT Patient assisted up to bathroom and was able to void . Moderate amount of drainage noted on fe pad. [facility] [id number] Note* Perioperative Nursing Note - Joan Anton RN - 10/06/2023 2:08 PM EDT Patient assisted up to bathroom and was able to void . Moderate amount of drainage noted on fe pad. [facility] [id number] Miscellaneous Notes* Perioperative Nursing Note - Joan Anton RN - 10/06/2023 2:08 PM EDT Patient assisted up to bathroom and was able to void . Moderate amount of drainage noted on fe pad. * Op Note - Danny Sharma MD - 10/06/2023 12:23 PM EDT Images from the original note were not included. 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 Priority Lab ID 1 Vagina Tissue TISSUE EXAM Dnany Sharma MD 10/06/23 1251 No Routine Description: SIMPLE PARTIAL VAGINECTOMY Staff: Spray Painter Helper: Kenzie Gonzalez RN Relief Spray Painter Helper: Freddie Valle RN Scrub Person: Rocío Coloey Findings: Radiation changes over the vulvar and perineum. Narrow introitus with fibrosis secondary to radiation posteriorly. There was a 1cm lesion involving the hymenal ring at about 4-6:00. There were no other lesions in the vaginal concerning for recurrent disease. The lesion fractured during manipulation and resection but grossly negative surgical margins were obtained. Complications: None apparent; patient tolerated the procedure well. Specimens Collected: Order Name Source Comment Collection Info Order Time TISSUE EXAM Vagina Collected By: Danny Sharma MD 10/06/2023 12:52 PM Wound Class: Class II: Clean-Contaminated Blood Products: None Prophylactic Antibiotics: Procedure appropriate prophylactic antibiotic(s) given within 1 hour of surgical incision (two hours if receiving Vancomycin or flouroquinolone) Description of the procedure in detail: After informed, written consent was obtained, the patient was identified in the preoperative holding area and taken to the operating room where anesthesia was found to be adequate. She was then prepped and draped in the usual sterile fashion in the dorsal lithotomy position with Adal stirrups. Care was taken to neither hyperextend or Hyperflex the patient's hips or knees. A surgical timeout was performed. The planned surgical resection site was injected with 1% lidocaine with epinephrine and then a 15 blade scalpel was used to make an elliptical incision around the lesion with care to obtain grossly negative surgical margins. The specimen was dissected off the surrounding structures using Metzenbaum scissors while tenting up with pick ups with teeth. The base of the surgical site was irrigated and all areas of bleeding were cauterized. The surgical site was hemostatic. I was unable to primarily close the vaginal mucosa due to the radiation fibrosis. The lesion was involving the posterior vagina and I performed a rectal exam to make sure there was no injury to the rectum. There was no evidence of injury to the rectum. The surgical site was once again irrigated and hemostatic. The patient tolerated the procedure well. Sponge, lap, needle and instrument counts were correct x2. The patient was awakened and taken to the recovery room in stable condition. She did receive preoperative antibiotics in accordance with SCIP guidelines. She received DVT prophylaxis in the form of serial compression devices during the surgery. Disclaimer: This note was dictated by speech recognition. I apologize for minor errors in wire threader which may be present. 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 Priority Lab ID 1 Vagina Tissue TISSUE EXAM Danny Sharma MD 10/06/23 1251 No Routine Description: SIMPLE PARTIAL VAGINECTOMY Staff: Spray Painter Helper: Kenzie Gonzalez RN Relief Spray Painter Helper: Freddie Valle RN Scrub Person: Rocío Cooley Findings: Radiation changes over the vulvar and perineum. Narrow introitus with fibrosis secondary to radiation. There was a 1cm lesion involving the hymenal ring at about 4-6:00. There were no otherlesions in the vaginal concerning for recurrent disease. The lesion fractured during manipulation and resection but grossly negative surgical margins were obtained. Complications: None apparent; patient tolerated the procedure well. Specimens Collected: Order Name Source Comment Collection Info Order Time TISSUE EXAM Vagina Collected By: Danny Sharma MD 10/06/2023 12:52 PM Wound Class: Class II: Clean-Contaminated Blood Products: None Prophylactic Antibiotics: Procedure appropriate prophylactic antibiotic(s) given within 1 hour of surgical incision (two hours if receiving Vancomycin or flouroquinolone) documented in this [facility]06-17-2024 Note* Op Note - Danny Sharma MD - 10/06/2023 12:23 PM EDT Images from the original note were not included. 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 Priority Lab ID 1 Vagina Tissue TISSUE EXAM Danny Sharma MD 10/06/23 1251 No Routine Description: SIMPLE PARTIAL VAGINECTOMY Staff: Spray Painter Helper: Kenzie Gonzalez RN Relief Spray Painter Helper: Freddie Valle RN Scrub Person: Rocío Cooley Findings: Radiation changes over the vulvar and perineum. Narrow introitus with fibrosis secondary to radiation posteriorly. There was a 1cm lesion involving the hymenal ring at about 4-6:00. There were no other lesions in the vaginal concerning for recurrent disease. The lesion fractured during manipulation and resection but grossly negative surgical margins were obtained. Complications: None apparent; patient tolerated the procedure well. Specimens Collected: Order Name Source Comment Collection Info Order Time TISSUE EXAM Vagina Collected By: Danny Sharma MD 10/06/2023 12:52 PM Wound Class: Class II: Clean-Contaminated Blood Products: None Prophylactic Antibiotics: Procedure appropriate prophylactic antibiotic(s) given within 1 hour of surgical incision (two hours if receiving Vancomycin or flouroquinolone) Description of the procedure in detail: After informed, written consent was obtained, the patient was identified in the preoperative holding area and taken to the operating room where anesthesia was found to be adequate. She was then prepped and draped in the usual sterile fashion in the dorsal lithotomy position with Adal stirrups. Care was taken to neither hyperextend or Hyperflex the patient's hips or knees. A surgical timeout was performed. The planned surgical resection site was injected with 1% lidocaine with epinephrine and then a 15 blade scalpel was used to make an elliptical incision around the lesion with care to obtain grossly negative surgical margins. The specimen was dissected off the surrounding structures using Metzenbaum scissors while tenting up with pick ups with teeth. The base of the surgical site was irrigated and all areas of bleeding were cauterized. The surgical site was hemostatic. I was unable to primarily close the vaginal mucosa due to the radiation fibrosis. The lesion was involving the posterior vagina and I performed a rectal exam to make sure there was no injury to the rectum. There was no evidence of injury to the rectum. The surgical site was once again irrigated and hemostatic. The patient tolerated the procedure well. Sponge, lap, needle and instrument counts were correct x2. The patient was awakened and taken to the recovery room in stable condition. She did receive preoperative antibiotics in accordance with SCIP guidelines. She received DVT prophylaxis in the form of serial compression devices during the surgery. Disclaimer: This note was dictated by speech recognition. I apologize for minor errors in wire threader which may be present. 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 Priority Lab ID 1 Vagina Tissue TISSUE EXAM Danny Sharma MD 10/06/23 1251 No Routine Description: SIMPLE PARTIAL VAGINECTOMY Staff: Spray Painter Helper: Kenzie Gonzalez RN Relief Spray Painter Helper: Freddie Valle RN Scrub Person: Rocío Lenora Findings: Radiation changes over the vulvar and perineum. Narrow introitus with fibrosis secondary to radiation. There was a 1cm lesion involving the hymenal ring at about 4-6:00. There were no otherlesions in the vaginal concerning for recurrent disease. The lesion fractured during manipulation and resection but grossly negative surgical margins were obtained. Complications: None apparent; patient tolerated the procedure well. Specimens Collected: Order Name Source Comment Collection Info Order Time TISSUE EXAM Vagina Collected By: Danny Sharma MD 10/06/2023 12:52 PM Wound Class: Class II: Clean-Contaminated Blood Products: None Prophylactic Antibiotics: Procedure appropriate prophylactic antibiotic(s) given within 1 hour of surgical incision (two hours if receiving Vancomycin or flouroquinolone) [id number] Note* Op Note - Danny Sharma MD - 10/06/2023 12:23 PM EDT Images from the original note were not included. 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 Priority Lab ID 1 Vagina Tissue TISSUE EXAM Danny Sharma MD 10/06/23 1251 No Routine Description: SIMPLE PARTIAL VAGINECTOMY Staff: Spray Painter Helper: Kenzie Gonzalez RN Relief Spray Painter Helper: Freddie Valle RN Scrub Person: Rocío Cooley Findings: Radiation changes over the vulvar and perineum. Narrow introitus with fibrosis secondary to radiation posteriorly. There was a 1cm lesion involving the hymenal ring at about 4-6:00. There were no other lesions in the vaginal concerning for recurrent disease. The lesion fractured during manipulation and resection but grossly negative surgical margins were obtained. Complications: None apparent; patient tolerated the procedure well. Specimens Collected: Order Name Source Comment Collection Info Order Time TISSUE EXAM Vagina Collected By: Danny Sharma MD 10/06/2023 12:52 PM Wound Class: Class II: Clean-Contaminated Blood Products: None Prophylactic Antibiotics: Procedure appropriate prophylactic antibiotic(s) given within 1 hour of surgical incision (two hours if receiving Vancomycin or flouroquinolone) Description of the procedure in detail: After informed, written consent was obtained, the patient was identified in the preoperative holding area and taken to the operating room where anesthesia was found to be adequate. She was then prepped and draped in the usual sterile fashion in the dorsal lithotomy position with Adal stirrups. Care was taken to neither hyperextend or Hyperflex the patient's hips or knees. A surgical timeout was performed. The planned surgical resection site was injected with 1% lidocaine with epinephrine and then a 15 blade scalpel was used to make an elliptical incision around the lesion with care to obtain grossly negative surgical margins. The specimen was dissected off the surrounding structures using Metzenbaum scissors while tenting up with pick ups with teeth. The base of the surgical site was irrigated and all areas of bleeding were cauterized. The surgical site was hemostatic. I was unable to primarily close the vaginal mucosa due to the radiation fibrosis. The lesion was involving the posterior vagina and I performed a rectal exam to make sure there was no injury to the rectum. There was no evidence of injury to the rectum. The surgical site was once again irrigated and hemostatic. The patient tolerated the procedure well. Sponge, lap, needle and instrument counts were correct x2. The patient was awakened and taken to the recovery room in stable condition. She did receive preoperative antibiotics in accordance with SCIP guidelines. She received DVT prophylaxis in the form of serial compression devices during the surgery. Disclaimer: This note was dictated by speech recognition. I apologize for minor errors in wire threader which may be present. 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 Priority Lab ID 1 Vagina Tissue TISSUE EXAM Danny Sharma MD 10/06/23 1251 No Routine Description: SIMPLE PARTIAL VAGINECTOMY Staff: Spray Painter Helper: Kenzie Gonzalez RN Relief Spray Painter Helper: Freddie Valle RN Scrub Person: Rocío Yancarolina Findings: Radiation changes over the vulvar and perineum. Narrow introitus with fibrosis secondary to radiation. There was a 1cm lesion involving the hymenal ring at about 4-6:00. There were no otherlesions in the vaginal concerning for recurrent disease. The lesion fractured during manipulation and resection but grossly negative surgical margins were obtained. Complications: None apparent; patient tolerated the procedure well. Specimens Collected: Order Name Source Comment Collection Info Order Time TISSUE EXAM Vagina Collected By: Danny Sharma MD 10/06/2023 12:52 PM Wound Class: Class II: Clean-Contaminated Blood Products: None Prophylactic Antibiotics: Procedure appropriate prophylactic antibiotic(s) given within 1 hour of surgical incision (two hours if receiving Vancomycin or flouroquinolone) [id number] [facility] Discharge instructions* Discharge Instructions* Susy Mesa MD - 10/06/2023 12:15 PM EDT Please follow your post operative care instructions given to you by your Professor Of Early Childhood Education Oncologist's office at your pre operative visit. Please call the office with questions or concerns and be sure to follow up at your scheduled post operative visit. documented in this [facility]06-17-2024 History and physical note* Danny Sharma MD - 10/06/2023 10:54 AM EDT Images from the original note were not included. PATIENT ADMITTING REPRESENTATIVE Pre-Op Note Patient Name: Danny Pink Patient : 1955 Room/Bed: OR/NONE Admission Date/Time: 10/06/2023 9:27 AM Primary Care Physician: Donovan Hernandez Date: 10/06/2023 Time: 10:54 AM The patient was seen in pre-op holding. She is here for simple partial vaginectomy. The procedure risks and complications were reviewed. The labs, consent, and H&P were reviewed and updated as appropriate. The patient had all of her questions answered. OBSTETRICAL HISTORY: OB History Para Term AB Living 5 1 1 0 1 4 SAB IAB Ectopic Multiple Live Births 1 0 0 0 0 # Outcome Date GA Lbr Frank/2nd Weight Sex Delivery Anes PTL Lv 5 Term 4 3 SAB 2 1 PAST MEDICAL HISTORY: has a past medical history of Anemia, Asthma, Cerebral artery occlusion with cerebral infarction (HCC), Diabetes (HCC), Endometrial adenocarcinoma (CMS/HCC) (), GERD (gastroesophageal reflux disease), Glaucoma (2014), blood clots, Hypertension, and Mini stroke (2013). PAST SURGICAL HISTORY: has a past surgical history that includes Other surgical history (12/09/2019); Endometrial biopsy; Total abdominal hysterectomy (01/19/2018); Cataract extraction w/ intraocular lens implant (Right, 07/09/2021); Dilation and curettage of uterus (12/19/2017); Tubal ligation; Tonsillectomy; se ction; Colonoscopy; Upper gastrointestinal endoscopy; and IR CVC mediport placement. ALLERGIES: Allergies as of 08/22/2023 - Reviewed 08/16/2023 Allergen Reaction Noted Morphine Anaphylaxis and Shortness of breath 11/22/2021 Codeine Rash and Nausea And Vomiting 12/30/2017 MEDICATIONS: @MEDCMED@ FAMILY HISTORY: family history includes Breast cancer (age of onset: 90) in her mother. SOCIAL HISTORY: reports that she quit smoking about 20 years ago. Her smoking use included cigarettes. She has a 30pack-year smoking history. She has never used smokeless tobacco. She reports that she does not currently use alcohol. She reports that she does not use drugs. VITALS: Vitals: 10/06/23 0940 BP: (!) 142/88 Pulse: 101 Resp: 16 Temp: (!) 35.9 C (96.7 F) TempSrc: Temporal SpO2: 96% Weight: 106 kg (234 lb) Height: 1.702 m (5' 7) PHYSICAL EXAM and ROS: Unchanged from Prior H&P LAB RESULTS: Admission on 10/06/2023 Component Date Value Ref Range Status Glucose 10/06/2023 239 (H) 70 - 100 mg/dL Final DIAGNOSTICS: @RISRSLT@ DIAGNOSIS & PLAN: - Proceed with planned procedure: simple partial vaginectomy - Consent signed, on chart. - The patient is ready for transport to the operative suite. Danny Quiñonez MD 10/06/2023, 10:54 AM [id number] History and physical note* Danny Sharma MD - 10/06/2023 10:54 AM EDT Images from the original note were not included. PATIENT ADMITTING REPRESENTATIVE Pre-Op Note Patient Name: Danny Pink Patient : 1955 Room/Bed: OR/NONE Admission Date/Time: 10/06/2023 9:27 AM Primary Care Physician: Donovan Hernandez Date: 10/06/2023 Time: 10:54 AM The patient was seen in pre-op holding. She is here for simple partial vaginectomy. The procedure risks and complications were reviewed. The labs, consent, and H&P were reviewed and updated as appropriate. The patient had all of her questions answered. OBSTETRICAL HISTORY: OB History Para Term AB Living 5 1 1 0 1 4 SAB IAB Ectopic Multiple Live Births 1 0 0 0 0 # Outcome Date GA Lbr Frank/2nd Weight Sex Delivery Anes PTL Lv 5 Term 4 3 SAB 2 1 PAST MEDICAL HISTORY: has a past medical history of Anemia, Asthma, Cerebral artery occlusion with cerebral infarction (HCC), Diabetes (HCC), Endometrial adenocarcinoma (CMS/HCC) (HCC), GERD (gastroesophageal reflux disease), Glaucoma (2014), blood clots, Hypertension, and Mini stroke (2013). PAST SURGICAL HISTORY: has a past surgical history that includes Other surgical history (12/09/2019); Endometrial biopsy; Total abdominal hysterectomy (01/19/2018); Cataract extraction w/ intraocular lens implant (Right, 07/09/2021); Dilation and curettage of uterus (12/19/2017); Tubal ligation; Tonsillectomy; se ction; Colonoscopy; Upper gastrointestinal endoscopy; and IR CVC mediport placement. ALLERGIES: Allergies as of 08/22/2023 - Reviewed 08/16/2023 Allergen Reaction Noted Morphine Anaphylaxis and Shortness of breath 11/22/2021 Codeine Rash and Nausea And Vomiting 12/30/2017 MEDICATIONS: @MEDCMED@ FAMILY HISTORY: family history includes Breast cancer (age of onset: 90) in her mother. SOCIAL HISTORY: reports that she quit smoking about 20 years ago. Her smoking use included cigarettes. She has a 30pack-year smoking history. She has never used smokeless tobacco. She reports that she does not currently use alcohol. She reports that she does not use drugs. VITALS: Vitals: 10/06/23 0940 BP: (!) 142/88 Pulse: 101 Resp: 16 Temp: (!) 35.9 C (96.7 F) TempSrc: Temporal SpO2: 96% Weight: 106 kg (234 lb) Height: 1.702 m (5' 7) PHYSICAL EXAM and ROS: Unchanged from Prior H&P LAB RESULTS: Admission on 10/06/2023 Component Date Value Ref Range Status Glucose 10/06/2023 239 (H) 70 - 100 mg/dL Final DIAGNOSTICS: @RISRSLT@ DIAGNOSIS & PLAN: - Proceed with planned procedure: simple partial vaginectomy - Consent signed, on chart. - The patient is ready for transport to the operative suite. Danny Quiñonez MD 10/06/2023, 10:54 AM documented in this [facility]06-15-2024 History of Present illness Narrative* Wanda Gonzalez, THERMAL INTELLIGENCE ANALYST - MEDICAL ASSISTANT SUPERVISOR - 10/04/2023 10:43 AM EDT Chart review completed in order to place pre operative orders for anesthesia. EK08/19/22 ECG 12-LEAD 08/20/2022 6:12 PM (Final) Impression Sinus rhythm Electronically Signed On 08-20-2022 18:12:16 EDT by Ethan Barr Signed by: Ethan Barr MD on 08/20/2022 6:12 PM ECHO and EF: No results found for this or any previous visit. Labs: Lab Results Component Value Date WBC 7.4 08/19/2022 HGB 12.3 08/19/2022 HCT 37.6 08/19/2022 MCV 89.8 08/19/2022 PLT 223 08/19/2022 Lab Results Component Value Date NA 135 08/19/2022 K 5.0 08/19/2022 CL 105 08/19/2022 CO2 22 08/19/2022 BUN 20 (H) 08/19/2022 CREATININE 0.73 08/19/2022 GLUCOSE 102 (H) 08/19/2022 CALCIUM 9.1 08/19/2022 PROT 7.0 11/28/2021 BILITOT 0.2 11/28/2021 ALKPHOS 88 11/28/2021 AST 20 11/28/2021 LABGLOM 70 09/05/2021 Past Medical History: Past Medical History: Diagnosis Date Anemia LOW IRON DUE TO BLEEDING Asthma Cerebral artery occlusion with cerebral infarction (HCC) Diabetes (HCC) 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 Affected short term memory, had to relearn things, locations. Past Surgical History: Past Surgical History: Procedure Laterality Date CATARACT EXTRACTION W/ INTRAOCULAR LENS IMPLANT Right 07/09/2021 SECTION (HISTORICAL) x2. Pfannenstiel incisions. COLONOSCOPY DILATION AND CURETTAGE OF UTERUS 12/19/2017 Dr Brittny [facility] ENDOMETRIAL BIOPSY IR CVC MEDIPORT PLACEMENT OTHER SURGICAL HISTORY 12/09/2019 Robotic Fe-Aortic Biopsy TONSILLECTOMY (HISTORICAL) TOTAL ABDOMINAL HYSTERECTOMY 01/19/2018 Robotic hysterectomy, BSO, right pelvic sentinel LNB, left pelvic lymphadenectomy-Dr. Khang Tapia [facility] TUBAL LIGATION UPPER GASTROINTESTINAL ENDOSCOPY Medications Prior to Admission: Prior to Admission medications Medication Sig Start Date End Date Taking? Authorizing Provider acetaminophen (Tylenol) 500 MG tablet Take 1,000 mg by mouth every 6 hours as needed. 12/21/21 Historical Provider, albuterol 108 (90 Base) MCG/ACT inhaler Inhale 90 each if needed. 10/13/20 Historical Provider, aspirin 81 MG chewable tablet Chew 81 mg daily. 05/06/14 Historical Provider, bisacodyl (Dulcolax) 5 MG EC tablet Take 10 mg by mouth if needed. 11/30/21 Historical Provider, brimonidine (AlphaGAN P) 0.2 % ophthalmic solution Administer 1 drop into both eyes Nightly. 06/21/21Historical Provider, calcium carbonate (Os-Papito) 1250 (500 Ca) MG chewable tablet Chew 1 tablet if needed. Historical Provider, calcium carbonate (Os-Papito) 1250 (500 Ca) MG chewable tablet Chew 1 tablet. Historical Provider, cholecalciferol (Vitamin D-3) 50 MCG (2000 UT) capsule Take 1 capsule (50 mcg) by mouth in the morning. Patient not taking: Reported on 09/30/2023 03/28/22 Danny Sharma MD dicyclomine (Bentyl) 10 MG capsule Take 10 mg by mouth if needed. 09/21/18 Historical Provider, gabapentin (Neurontin) 300 MG capsule Take 1 capsule (300 mg) by mouth Nightly. 11/14/22 09/30/23 Danny Sharma MD ibuprofen 800 MG tablet Take 1 tablet (800 mg) by mouth every 8 hours as needed for mild pain (1-3)or moderate pain (4-6). 02/20/22 Malinda Boone APRN - MEDICAL ASSISTANT SUPERVISOR latanoprost (Xalatan) 0.005 % ophthalmic solution Administer 1 drop into both eyes Nightly. 11/28/21Historical Provider, lidocaine (Xylocaine) 5 % ointment Apply topically 2 times daily. 01/30/23 01/30/24 MERRICK Sanchez CNP LORazepam (Ativan) 1 MG tablet Take 1 tablet (1 mg) by mouth every 8 hours as needed for anxiety for up to 10 days. 09/23/23 10/03/23 MERRICK Dela Cruz CNP metFORMIN XR (Glucophage-XR) 500 MG 24 hr tablet Take 1,000 mg by mouth in the morning and 1,000 mgin the evening. 02/05/22 Historical Provider, MD Hay. Devices (Sitz Bath) misc Use for pain relief as needed 08/19/22 Hannah Jasso DO Misc. Devices (Collins Bottle/Plastic 120mL) misc Use to clean area as needed 08/19/22 Hannah Jasso DO naloxone (Narcan) 4 mg/0.1 mL nasal spray Administer 4 mg into affected nostril(s) if needed. 12/21/21 Historical Provider, ondansetron (Zofran) 8 MG tablet Take 8 mg by mouth if needed. 11/23/21 Historical Provider, oxyCODONE (Roxicodone) 5 MG immediate release tablet Take 1 tablet (5 mg) by mouth every 6 hours asneeded for severe pain (7-10) for up to 5 days. 09/30/23 10/05/23 MERRICK Dela Cruz CNP pantoprazole (ProtoNix) 40 MG EC tablet Take 40 mg by mouth if needed. 06/06/21 Historical Provider, prochlorperazine (Compazine) 10 MG tablet Take 1 tablet (10 mg) by mouth every 8 hours as needed for nausea or vomiting. 08/04/23 MERRICK Sanchez CNP sennosides (Senokot) 8.6 MG tablet Take 8.6 mg by mouth in the morning and 8.6 mg in the evening. 12/21/21 Historical Provider, sertraline (Zoloft) 100 MG tablet Take 1 tablet (100 mg) by mouth daily. Patient taking differently: Take 100 mg by mouth Nightly. 03/28/22 09/30/23 Danny Sharma MD sucralfate (Carafate) 1 GM/10ML suspension Take 1 g by mouth if needed. 10/28/19 Historical Provider, traZODone (Desyrel) 100 MG tablet Take 1 tablet (100 mg) by mouth Nightly. 09/23/23 10/23/23 Malinda Booen THERMAL INTELLIGENCE ANALYST - MEDICAL ASSISTANT SUPERVISOR Trelegy Ellipta 200-62.5-25 MCG/ACT aerosol powder 04/07/23 Historical Provider, triamcinolone (Kenalog) 0.1 % ointment Apply topically 2 times daily. Patient not taking: Reported on 09/30/2023 02/13/23 Danny Sharma MD bacitracin 500 UNIT/GM ointment Apply topically 2 times daily. Patient not taking: Reported on 09/30/2023 08/19/22 09/30/23 Hannah Jasso DO brimonidine (AlphaGAN P) 0.2 % ophthalmic solution 1 drop. 09/30/23 Historical Provider, dicyclomine (Bentyl) 10 MG capsule Take 10 mg by mouth. 09/30/23 Historical Provider, Farxiga 5 MG tablet daily. 04/07/23 09/30/23 Historical Provider, gabapentin (Neurontin) 300 MG capsule Take 300 mg by mouth. 05/31/21 09/30/23 Historical Provider, glimepiride (Amaryl) 4 MG tablet Take 4 mg by mouth daily. 11/07/21 09/30/23 Historical Provider, lisinopril 10 MG tablet Take 1 tablet by mouth in the morning. 10/19/20 09/30/23 Historical Provider, metFORMIN XR (Glucophage-XR) 500 MG 24 hr tablet Take 1,000 mg by mouth 2 times daily. 05/04/21 09/30/23 Historical Provider, Miconazole Nitrate 4 % cream Insert 1 Application into the vagina 2 times daily as needed (itching). Patient not taking: Reported on 09/30/2023 11/14/22 09/30/23 Danny Sharma MD oxyCODONE (Roxicodone) 5 MG immediate release tablet Take 1 tablet (5 mg) by mouth every 6 hours asneeded for severe pain (7-10) for up to 5 days. 09/23/23 09/30/23 MERRICK Dela Cruz CNP Ozempic, 0.25 or 0.5 MG/DOSE, 2 MG/3ML solution pen-injector 03/05/23 09/30/23 Historical Provider, sertraline (Zoloft) 100 MG tablet Take 1 tablet by mouth daily. 02/01/22 09/30/23 Historical Provider, sertraline (Zoloft) 50 MG tablet Take 50 mg by mouth in the morning. 12/22/21 09/30/23 Historical Provider, silver sulfADIAZINE (Silvadene) 1 % cream Apply 1 application. topically 2 times daily. Patient not taking: Reported on 09/30/2023 08/15/22 09/30/23 Danny Sharma MD silver sulfADIAZINE (Silvadene) 1 % cream Apply topically 2 times daily. 02/01/22 09/30/23 Historical Provider, Symbicort 160-4.5 MCG/ACT inhaler Inhale 160 puffs if needed. 02/05/22 09/30/23 Historical Provider, traZODone (Desyrel) 100 MG tablet Take 1 tablet (100 mg) by mouth Nightly as needed for sleep. 08/29/23 09/30/23 MERRICK Sanchez CNP Allergies: Morphine and Codeine Social History: TOBACCO: reports that she quit smoking about 20 years ago. Her smoking use included cigarettes. Shehas a 30 pack-year smoking history. She has never used smokeless tobacco. ETOH: reports that she does not currently use alcohol. Social History Substance and Sexual Activity Drug Use No Family History: Family History Problem Relation Name Age of Onset Breast cancer Mother 90 Ovarian cancer Neg Hx Colon cancer Neg Hx Uterine cancer Neg Hx documented in this encounterSSalem City [id number] Telephone encounter Note* Telephone Encounter - Ugo Hoang MA - 09/30/2023 3:37 PM EDT Lm that RX was at the pharmacy. [id number] Miscellaneous Notes* Telephone Encounter - Ugo Hoang MA - 09/30/2023 3:37 PM EDT Lm that RX was at the pharmacy. * Telephone Encounter - Ugo Hoang MA - 09/30/2023 8:13 AM EDT Patient calling to ask for refill on oxycodone. Pharmacy confirmed as [facility]. documented in this [facility]06-11-2024 Telephone encounter Note* Telephone Encounter - MERRICK Dela Cruz CNP - 09/30/2023 8:22 AM EDT Prescription refilled and sent to pharmacy. OARRS report ran and reviewed. [facility] [id number] Miscellaneous Notes* Telephone Encounter - MERRICK Dela Cruz CNP - 09/30/2023 8:22 AM EDT Prescription refilled and sent to pharmacy. OARRS report ran and reviewed. * Telephone Encounter - Kyle Mckinney - 09/29/2023 2:56 PM EDT Patient would like a refill for oxycodone to be sent to pharmacy on file, thank you * Addendum Note - MERRICK Dela Cruz CNP - 09/23/2023 11:52 AM EDTAddended by: MALINDA BOONE on: 09/23/2023 11:52 AM Modules accepted: Orders * Telephone Encounter - MERRICK Dela Cruz CNP - 09/23/2023 11:51 AM EDT Spoke with patient regarding refills. OARRS report ran and reviewed. Also discussed upcoming appointment with palliative care and the importance of keeping that appointment. Verbalizes understanding * Telephone Encounter - MERRICK Dela Cruz CNP - 09/23/2023 11:00 AM EDT Called patient and left a message to give me a call back to discuss her refills. * Telephone Encounter - Katty Jo MA - 09/23/2023 9:58 AM EDT patient called in requesting pain medication refills. Informed her that because we have not seen her yet in palliative, that our providers cannot fill her prescriptions that she would have to contactthe prescribing provider. Patient verbalized understanding. Patient cancelled appt on 09/04/23 withAlka Cason and is rescheduled to see her on 10/30/2023 * Telephone Encounter - Kyle Mckinney - 09/23/2023 9:55 AM EDT Patient states that palliative cannot refill the prescriptions since they haven't seen the patient yet. Please advise, thank you * Telephone Encounter - Kyle Mckinney - 09/23/2023 9:37 AM EDT LVM that palliative will be assiting pt with the refills. Provided [phone] as the number for her to contact. Will be sending the requests to palliative as well * Telephone Encounter - Kyle Mckinney - 09/23/2023 8:26 AM EDT Patient would like a refill for trazodone, ativan, and oxycodone sent to pharmacy on file, thank you documented in this encounterSSalem City HospitalJyyung74-53-4024 Telephone encounter Note* Telephone Encounter - Ugo Hoang MA - 09/30/2023 8:13 AM EDT Patient calling to ask for refill on oxycodone. Pharmacy confirmed as [facility]. [facility] HospitalCqdvsj67-87-6324 Telephone encounter Note* Telephone Encounter - Kyle Mckinney - 09/29/2023 2:56 PM EDT Patient would like a refill for oxycodone to be sent to pharmacy on file, thank you [place] [id number] Miscellaneous Notes* Telephone Encounter - Kyle Mckinney - 09/29/2023 2:56 PM EDT Patient would like a refill for oxycodone to be sent to pharmacy on file, thank you * Addendum Note - MERRICK Dela Cruz CNP - 09/23/2023 11:52 AM EDTAddended by: MALINDA BOONE on: 09/23/2023 11:52 AM Modules accepted: Orders * Telephone Encounter - MERRICK Dela Cruz CNP - 09/23/2023 11:51 AM EDT Spoke with patient regarding refills. OARRS report ran and reviewed. Also discussed upcoming appointment with palliative care and the importance of keeping that appointment. Verbalizes understanding * Telephone Encounter - MERRICK Dela Cruz CNP - 09/23/2023 11:00 AM EDT Called patient and left a message to give me a call back to discuss her refills. * Telephone Encounter - Katty Jo MA - 09/23/2023 9:58 AM EDT patient called in requesting pain medication refills. Informed her that because we have not seen her yet in palliative, that our providers cannot fill her prescriptions that she would have to contactthe prescribing provider. Patient verbalized understanding. Patient cancelled appt on 09/04/23 withAlka Cason and is rescheduled to see her on 10/30/2023 * Telephone Encounter - Kyle Mckinney - 09/23/2023 9:55 AM EDT Patient states that palliative cannot refill the prescriptions since they haven't seen the patient yet. Please advise, thank you * Telephone Encounter - Kyle Mckinney - 09/23/2023 9:37 AM EDT LVM that palliative will be assiting pt with the refills. Provided [phone] as the number for her to contact. Will be sending the requests to palliative as well * Telephone Encounter - Kyle Mckinney - 09/23/2023 8:26 AM EDT Patient would like a refill for trazodone, ativan, and oxycodone sent to pharmacy on file, thank you documented in this [facility]06-04-2024 Note* Addendum Note - MERRICK Dela Cruz CNP - 09/23/2023 11:52 AM EDTAddended by: MALINDA BOONE on: 09/23/2023 11:52 AM Modules accepted: Orders [facility] HospitalZccglk32-20-1351 Note* Addendum Note - MERRICK Dela Cruz CNP - 09/23/2023 11:52 AM EDTAddended by: MALINDA BOONE on: 09/23/2023 11:52 AM Modules accepted: Orders [facility] HospitalErtgcz42-60-1499 Note* Addendum Note - MERRICK Dela Cruz CNP - 09/23/2023 11:52 AM EDTAddended by: MALINDA BOONE on: 09/23/2023 11:52 AM Modules accepted: Orders [facility] HospitalUhsnoq60-14-9084 Note* Addendum Note - MERRICK Dela Cruz CNP - 09/23/2023 11:52 AM EDTAddended by: MALINDA BOONE on: 09/23/2023 11:52 AM Modules accepted: Orders [facility] HospitalWhahio61-58-2575 Note* Addendum Note - MERRICK Dela Cruz CNP - 09/23/2023 11:52 AM EDTAddended by: MALINDA BOONE on: 09/23/2023 11:52 AM Modules accepted: Orders [facility] HospitalIqcnkz62-35-9243 Note* Addendum Note - MERRICK Dela Cruz CNP - 09/23/2023 11:52 AM EDTAddended by: MALINDA BOONE on: 09/23/2023 11:52 AM Modules accepted: Orders [facility] HospitalQvexrv57-81-2501 Note* Addendum Note - MERRICK Dela Cruz CNP - 09/23/2023 11:52 AM EDTAddended by: MALINDA BOONE on: 09/23/2023 11:52 AM Modules accepted: Orders [facility] HospitalYriwcm40-15-8354 Note* Addendum Note - MERRICK Dela Cruz CNP - 09/23/2023 11:52 AM EDTAddended by: MALINDA BOONE on: 09/23/2023 11:52 AM Modules accepted: Orders [facility] HospitalEyhbdz48-76-0495 Note* Addendum Note - MERRICK Dela Cruz CNP - 09/23/2023 11:52 AM EDTAddended by: MALINDA BOONE on: 09/23/2023 11:52 AM Modules accepted: Orders [facility] HospitalNapdpw95-24-7926 Note* Addendum Note - MERRICK Dela Cruz CNP - 09/23/2023 11:52 AM EDTAddended by: MALINDA BOONE on: 09/23/2023 11:52 AM Modules accepted: Orders [facility] HospitalYctpuv34-93-8358 Miscellaneous Notes* Addendum Note - MERRICK Dela Cruz CNP - 09/23/2023 11:52 AM EDTAddended by: MALINDA BOONE on: 09/23/2023 11:52 AM Modules accepted: Orders * Telephone Encounter - MERRICK Dela Cruz CNP - 09/23/2023 11:51 AM EDT Spoke with patient regarding refills. OARRS report ran and reviewed. Also discussed upcoming appointment with palliative care and the importance of keeping that appointment. Verbalizes understanding * Telephone Encounter - MERRICK Dela Cruz CNP - 09/23/2023 11:00 AM EDT Called patient and left a message to give me a call back to discuss her refills. * Telephone Encounter - Katty Jo MA - 09/23/2023 9:58 AM EDT patient called in requesting pain medication refills. Informed her that because we have not seen her yet in palliative, that our providers cannot fill her prescriptions that she would have to contactthe prescribing provider. Patient verbalized understanding. Patient cancelled appt on 09/04/23 withAlka Cason and is rescheduled to see her on 10/30/2023 * Telephone Encounter - Kyle Mckinney - 09/23/2023 9:55 AM EDT Patient states that palliative cannot refill the prescriptions since they haven't seen the patient yet. Please advise, thank you * Telephone Encounter - Kyle Mckinney - 09/23/2023 9:37 AM EDT LVM that palliative will be assiting pt with the refills. Provided [phone] as the number for her to contact. Will be sending the requests to palliative as well * Telephone Encounter - Kyle Mckinney - 09/23/2023 8:26 AM EDT Patient would like a refill for trazodone, ativan, and oxycodone sent to pharmacy on file, thank you documented in this encounterSSalem City HospitalRcshdt12-09-4733 Telephone encounter Note* Telephone Encounter - MERRICK Dela Cruz CNP - 09/23/2023 11:51 AM EDT Spoke with patient regarding refills. OARRS report ran and reviewed. Also discussed upcoming appointment with palliative care and the importance of keeping that appointment. Verbalizes understanding [facility] HospitalMkovbk38-92-4709 Telephone encounter Note* Telephone Encounter - MERRICK Dela Cruz CNP - 09/23/2023 11:00 AM EDT Called patient and left a message to give me a call back to discuss her refills. [facility] HospitalTjnbse31-86-4906 Telephone encounter Note* Telephone Encounter - Katty Jo MA - 09/23/2023 9:58 AM EDT patient called in requesting pain medication refills. Informed her that because we have not seen her yet in palliative, that our providers cannot fill her prescriptions that she would have to contactthe prescribing provider. Patient verbalized understanding. Patient cancelled appt on 09/04/23 withAlka Cason and is rescheduled to see her on 10/30/2023 [facility] HospitalYrfxpn85-43-8929 Telephone encounter Note* Telephone Encounter - Kyle Mckinney - 09/23/2023 9:55 AM EDT Patient states that palliative cannot refill the prescriptions since they haven't seen the patient yet. Please advise, thank you [facility] HospitalKdarep17-42-6688 Telephone encounter Note* Telephone Encounter - Kyle Mckinney - 09/23/2023 9:37 AM EDT LVM that palliative will be assiting pt with the refills. Provided [phone] as the number for her to contact. Will be sending the requests to palliative as well [facility] HospitalNbgxqe04-52-3427 Telephone encounter Note* Telephone Encounter - Kyle Mckinney - 09/23/2023 8:26 AM EDT Patient would like a refill for trazodone, ativan, and oxycodone sent to pharmacy on file, thank you [facility] HospitalRxqrwh45-19-5129 Telephone encounter Note* Telephone Encounter - Franki Espinoza - 09/01/2023 8:02 AM EDT PAT: 09.29.2023 at 10 am SX: 10.06.2023 at 12:30 pm arrival at 10:30 am Post op 10.30.2023 at 10:40 am Folder and instructions given. [facility] HospitalTkyayq29-84-4550 Miscellaneous Notes* Telephone Encounter - Franki Espinoza - 09/01/2023 8:02 AM EDT PAT: 09.29.2023 at 10 am SX: 10.06.2023 at 12:30 pm arrival at 10:30 am Post op 10.30.2023 at 10:40 am Folder and instructions given. documented in this [facility]05-10-2024 Telephone encounter Note* Telephone Encounter - MERRICK Sanchez CNP - 08/29/2023 11:41 AM EDT Trazodone sent to pt's pharmacy, OARRS verified. [facility] HospitalSshutp51-46-3832 Miscellaneous Notes* Telephone Encounter - MERRICK Sanchez CNP - 08/29/2023 11:41 AM EDT Trazodone sent to pt's pharmacy, OARRS verified. * Telephone Encounter - Lizabeth Langley MA - 08/29/2023 11:23 AM EDT Pt called in requesting a refill on trazodone. Please advise documented in this [facility]05-10-2024 Telephone encounter Note* Telephone Encounter - Lizabeth Langley MA - 08/29/2023 11:23 AM EDT Pt called in requesting a refill on trazodone. Please advise [facility] HospitalVwuyon01-36-7109 Note* Addendum Note - MERRICK Dela Cruz CNP - 08/26/2023 4:08 PM EDTAddended by: MALINDA BOONE on: 08/26/2023 04:08 PM Modules accepted: Orders [facility] HospitalIpjorm25-40-3972 Note* Addendum Note - MERRICK Dela Cruz CNP - 08/26/2023 4:08 PM EDTAddended by: MALINDA BOONE on: 08/26/2023 04:08 PM Modules accepted: Orders [facility] HospitalYnacpf27-93-3523 Note* Addendum Note - MERRICK Dela Cruz CNP - 08/26/2023 4:08 PM EDTAddended by: MALINDA BOONE on: 08/26/2023 04:08 PM Modules accepted: Orders [facility] HospitalSaroir41-27-9253 Note* Addendum Note - MERRICK Dela Cruz CNP - 08/26/2023 4:08 PM EDTAddended by: MALINDA BOONE on: 08/26/2023 04:08 PM Modules accepted: Orders [facility] HospitalRvikry76-81-5963 Note* Addendum Note - MERRICK Dela Cruz CNP - 08/26/2023 4:08 PM EDTAddended by: MALINDA BOONE on: 08/26/2023 04:08 PM Modules accepted: Orders [facility] HospitalLecdor97-15-9164 Note* Addendum Note - MERRICK Dela Cruz CNP - 08/26/2023 4:08 PM EDTAddended by: MALINDA BOONE on: 08/26/2023 04:08 PM Modules accepted: Orders [facility] HospitalKhxpdn46-26-3708 Note* Addendum Note - MERRICK Dela Cruz CNP - 08/26/2023 4:08 PM EDTAddended by: MALINDA BOONE on: 08/26/2023 04:08 PM Modules accepted: Orders [facility] HospitalCwixos35-44-3801 Miscellaneous Notes* Addendum Note - MERRICK Dela Cruz CNP - 08/26/2023 4:08 PM EDTAddended by: MALINDA BOONE on: 08/26/2023 04:08 PM Modules accepted: Orders * Telephone Encounter - MERRICK Dela Cruz CNP - 08/26/2023 3:46 PM EDT Spoke with patient regarding her oxycodone prescription. I did call pharmacy and they are willing to do a one-time refill for 3 days. I did put a urgent referral to palliative care to hopefully get the patient into soon as possible to manage cancer pain.. Patient is willing to see palliative care and verbalizes understanding * Addendum Note - MERRICK Dela Cruz CNP - 08/26/2023 3:44 PM EDTAddended by: MALINDA BOONE on: 08/26/2023 03:44 PM Modules accepted: Orders * Telephone Encounter - Kyle Mckinney - 08/26/2023 2:58 PM EDT Patient returning missed call, please contact when able, thank you * Telephone Encounter - MERRICK Dela Cruz CNP - 08/26/2023 1:17 PM EDT Attempted to call patient back to talk to her about her refilled medications. I did leave a messageand encouraged patient to call me back * Telephone Encounter - Kyle Mckinney - 08/26/2023 10:42 AM EDT Patient called back and states that she can't picker feeder the medication until the . Also stated that it needed to be Trazodone and Oxycodone. Patient requesting a call back, thank you * Telephone Encounter - MERRICK Sanchez CNP - 08/25/2023 2:48 PM EDT OARRS verified and Oxycodone/Ativan sent to pt's pharmacy per pt request. * Telephone Encounter - Kyle Mckinney - 08/25/2023 2:35 PM EDT Patient requesting refill for lorazepam and oxycodone be sent in to pharmacy on file. Thank you * Telephone Encounter - MERRICK Sanchez CNP - 08/04/2023 9:58 AM EDT OARRS verified, medication sent to pt's pharmacy. * Telephone Encounter - Keyla Gilman - 08/04/2023 8:32 AM EDT Patient mentioned that she would like her four prescription refill. The prescriptions are Lorazepam, Oxycodone, Trazodone, and Prochlorperzine. * Telephone Encounter - MERRICK Sanchez CNP - 07/23/2023 8:25 AM EDT OARRS report verified, Oxycodone and Ativan sent to pt's pharmacy per pt request. Both medications are controlling her sx. * Telephone Encounter - Kyle Mckinney - 07/23/2023 8:04 AM EDT Patient would like a refill for oxycodone and lorazepam sent to pharmacy on file, thank you * Telephone Encounter - Kyle Mckinney - 07/09/2023 10:43 AM EDT Patient would like a refill on her lorazepam and oxycodone sent to the pharmacy at [place] already on file, thank you * Telephone Encounter - Keyla Gilman - 07/02/2023 9:36 AM EDT Patient mentioned that she would like her prescription refilled. The oxycodone and lorazepam. * Telephone Encounter - Kyle Mckinney - 06/25/2023 9:56 AM EST Patient requesting refill for Oxycodone to be sent to pharmacy on file, thank you * Addendum Note - MERRICK Dela Cruz CNP - 06/17/2023 2:52 PM ESTAddended by: MALINDA BOONE on: 06/17/2023 02:52 PM Modules accepted: Orders * Telephone Encounter - MERRICK Dela Cruz CNP - 06/17/2023 2:51 PM EST Prescriptions refilled. OAARS report ran * Telephone Encounter - Kyle Mckinney - 06/17/2023 2:17 PM EST Patient would like a refill on her lorazepam and oxycodone sent to the pharmacy at [place] already on file, thank you documented in this [facility]05-07-2024 Telephone encounter Note* Telephone Encounter - MERRICK Dela Cruz CNP - 08/26/2023 3:46 PM EDT Spoke with patient regarding her oxycodone prescription. I did call pharmacy and they are willing to do a one-time refill for 3 days. I did put a urgent referral to palliative care to hopefully get the patient into soon as possible to manage cancer pain.. Patient is willing to see palliative care and verbalizes understanding [facility] HospitalMkfgoa58-68-1949 Note* Addendum Note - MERRICK Dela Cruz CNP - 08/26/2023 3:44 PM EDTAddended by: MALINDA BOONE on: 08/26/2023 03:44 PM Modules accepted: Orders [facility] HospitalKzyzqi12-35-7598 Note* Addendum Note - MERRICK Dela Cruz CNP - 08/26/2023 3:44 PM EDTAddended by: MALINDA BOONE on: 08/26/2023 03:44 PM Modules accepted: Orders [facility] HospitalEolpxn55-03-5385 Note* Addendum Note - MERRICK Dela Cruz CNP - 08/26/2023 3:44 PM EDTAddended by: MALINDA BOONE on: 08/26/2023 03:44 PM Modules accepted: Orders [facility] HospitalJaydpn21-21-3113 Note* Addendum Note - MERRICK Dela Cruz CNP - 08/26/2023 3:44 PM EDTAddended by: MALINDA BOONE on: 08/26/2023 03:44 PM Modules accepted: Orders [facility] HospitalBkkdom73-58-6285 Note* Addendum Note - MERRICK Dela Cruz CNP - 08/26/2023 3:44 PM EDTAddended by: MALINDA BOONE on: 08/26/2023 03:44 PM Modules accepted: Orders [facility] HospitalJhfesb20-63-9813 Note* Addendum Note - MERRICK Dela Cruz CNP - 08/26/2023 3:44 PM EDTAddended by: MALINDA BOONE on: 08/26/2023 03:44 PM Modules accepted: Orders [facility] HospitalBadotn76-00-8777 Note* Addendum Note - MERRICK Dela Cruz CNP - 08/26/2023 3:44 PM EDTAddended by: MALINDA BOONE on: 08/26/2023 03:44 PM Modules accepted: Orders [facility] HospitalTlopqy37-66-2600 Telephone encounter Note* Telephone Encounter - Kyle Mckinney - 08/26/2023 2:58 PM EDT Patient returning missed call, please contact when able, thank you [facility] HospitalSddacm15-83-5080 Telephone encounter Note* Telephone Encounter - MERRICK Dela Cruz CNP - 08/26/2023 1:17 PM EDT Attempted to call patient back to talk to her about her refilled medications. I did leave a messageand encouraged patient to call me back [facility] HospitalIkgmhj67-20-1330 Telephone encounter Note* Telephone Encounter - Kyle Mckinney - 08/26/2023 10:42 AM EDT Patient called back and states that she can't picker feeder the medication until the . Also stated that it needed to be Trazodone and Oxycodone. Patient requesting a call back, thank you [facility] HospitalEdpxmd07-33-1468 Telephone encounter Note* Telephone Encounter - MERRICK Sanchez CNP - 08/25/2023 2:48 PM EDT OARRS verified and Oxycodone/Ativan sent to pt's pharmacy per pt request. [facility] HospitalKotjmt07-77-3353 Miscellaneous Notes* Telephone Encounter - MERRICK Sanchez CNP - 08/25/2023 2:48 PM EDT OARRS verified and Oxycodone/Ativan sent to pt's pharmacy per pt request. * Telephone Encounter - Kyle Mckinney - 08/25/2023 2:35 PM EDT Patient requesting refill for lorazepam and oxycodone be sent in to pharmacy on file. Thank you * Telephone Encounter - MERRICK Sanchez CNP - 08/04/2023 9:58 AM EDT OARRS verified, medication sent to pt's pharmacy. * Telephone Encounter - Keyla Gilman - 08/04/2023 8:32 AM EDT Patient mentioned that she would like her four prescription refill. The prescriptions are Lorazepam, Oxycodone, Trazodone, and Prochlorperzine. * Telephone Encounter - MERRICK Sanchez CNP - 07/23/2023 8:25 AM EDT OARRS report verified, Oxycodone and Ativan sent to pt's pharmacy per pt request. Both medications are controlling her sx. * Telephone Encounter - Kyle Mckinney - 07/23/2023 8:04 AM EDT Patient would like a refill for oxycodone and lorazepam sent to pharmacy on file, thank you * Telephone Encounter - Kyle Mckinney - 07/09/2023 10:43 AM EDT Patient would like a refill on her lorazepam and oxycodone sent to the pharmacy at [place] already on file, thank you * Telephone Encounter - Keyla Gilman - 07/02/2023 9:36 AM EDT Patient mentioned that she would like her prescription refilled. The oxycodone and lorazepam. * Telephone Encounter - Kyle Mckinney - 06/25/2023 9:56 AM EST Patient requesting refill for Oxycodone to be sent to pharmacy on file, thank you * Addendum Note - MERRICK Dela Cruz CNP - 06/17/2023 2:52 PM ESTAddended by: MALINDA BOONE on: 06/17/2023 02:52 PM Modules accepted: Orders * Telephone Encounter - MERRICK Dela Cruz CNP - 06/17/2023 2:51 PM EST Prescriptions refilled. OAARS report ran * Telephone Encounter - Kyle Mckinney - 06/17/2023 2:17 PM EST Patient would like a refill on her lorazepam and oxycodone sent to the pharmacy at [place] already on file, thank you documented in this encounterSSalem City HospitalIljrod32-29-3664 Telephone encounter Note* Telephone Encounter - Kyle Mckinney - 08/25/2023 2:35 PM EDT Patient requesting refill for lorazepam and oxycodone be sent in to pharmacy on file. Thank you [facility] HospitalXntwdv72-50-4881 Telephone encounter Note* Telephone Encounter - Franki Espinoza - 08/22/2023 1:56 PM EDT Spoke to patient she is scheduled for [place] October 05 for surgery [facility] HospitalTwnkmt84-32-8074 Miscellaneous Notes* Telephone Encounter - Franki Espinoza - 08/22/2023 1:56 PM EDT Spoke to patient she is scheduled for [place] October 05 for surgery * Telephone Encounter - Kyle Mckinney - 08/22/2023 1:11 PM EDT Patient inquiring more information on the procedure, please contact when able, thank you * Telephone Encounter - Lizabeth Langley MA - 08/14/2023 3:37 PM EDT Pt informed of surgery date 08/28/23 in [place] at 12pm * Telephone Encounter - Lizabeth Langley MA - 08/14/2023 3:36 PM EDT ----- Message from Danny Sharma MD sent at 08/14/2023 11:22 AM EDT ----- Has a vaginal recurrence. Needs to be set up for simple partial vaginectomy at [place]. 1 hr. Thanks! documented in this encounterSSalem City HospitalIjopxp99-73-6669 Telephone encounter Note* Telephone Encounter - Kyle Mckinney - 08/22/2023 1:11 PM EDT Patient inquiring more information on the procedure, please contact when able, thank you [facility] HospitalAjtnrd80-17-8739 Telephone encounter Note* Telephone Encounter - Kyle Mckinney - 08/18/2023 9:07 AM EDT Faxed to Dr. Melendez at [phone] via [employer]. Confirmation scanned within media [facility] HospitalUfmyvc26-07-8064 Telephone encounter Note* Telephone Encounter - Kylerebecca Mckinney - 08/18/2023 9:07 AM EDT ----- Message from Danny Sharma MD sent at 08/16/2023 2:01 PM EDT ----- Please fax office visit note to Dr. Melendez, Radiation Oncology in [place]. Thanks! [facility] HospitalAamhgg03-59-4584 Miscellaneous Notes* Telephone Encounter - Kyle Mckinney - 08/18/2023 9:07 AM EDT Faxed to Dr. Melendez at [phone] via [employer]. Confirmation scanned within media * Telephone Encounter - Kyle Mckinney - 08/18/2023 9:07 AM EDT ----- Message from Danny Sharma MD sent at 08/16/2023 2:01 PM EDT ----- Please fax office visit note to Dr. Melendez, Radiation Oncology in [place]. Thanks! documented in this encounterSSalem City HospitalGcntzl41-04-8778 Telephone encounter Note* Telephone Encounter - Lizabeth Langley MA - 08/14/2023 3:37 PM EDT Pt informed of surgery date 08/28/23 in [place] at 12pm [address]fob45-32-8536 Telephone encounter Note* Telephone Encounter - Lizabeth Langley MA - 08/14/2023 3:36 PM EDT ----- Message from Danny Sharma MD sent at 08/14/2023 11:22 AM EDT ----- Has a vaginal recurrence. Needs to be set up for simple partial vaginectomy at [place]. 1 hr. Thanks! [address]Xouofl54-21-5828 Telephone encounter Note* Telephone Encounter - MERRICK Sanchez CNP - 08/04/2023 9:58 AM EDT OARRS verified, medication sent to pt's pharmacy. [place] [id number] Miscellaneous Notes* Telephone Encounter - MERRICK Sanchez CNP - 08/04/2023 9:58 AM EDT OARRS verified, medication sent to pt's pharmacy. * Telephone Encounter - Keyla Gilman - 08/04/2023 8:32 AM EDT Patient mentioned that she would like her four prescription refill. The prescriptions are Lorazepam, Oxycodone, Trazodone, and Prochlorperzine. * Telephone Encounter - MERRICK Sanchez CNP - 07/23/2023 8:25 AM EDT OARRS report verified, Oxycodone and Ativan sent to pt's pharmacy per pt request. Both medications are controlling her sx. * Telephone Encounter - Kyle Mckinney - 07/23/2023 8:04 AM EDT Patient would like a refill for oxycodone and lorazepam sent to pharmacy on file, thank you * Telephone Encounter - Kyle Mckinney - 07/09/2023 10:43 AM EDT Patient would like a refill on her lorazepam and oxycodone sent to the pharmacy at [place] already on file, thank you * Telephone Encounter - Keyla Gilman - 07/02/2023 9:36 AM EDT Patient mentioned that she would like her prescription refilled. The oxycodone and lorazepam. * Telephone Encounter - Kyle Mckinney - 06/25/2023 9:56 AM EST Patient requesting refill for Oxycodone to be sent to pharmacy on file, thank you * Addendum Note - MERRICK Dela Cruz CNP - 06/17/2023 2:52 PM ESTAddended by: MALINDA BOONE on: 06/17/2023 02:52 PM Modules accepted: Orders * Telephone Encounter - MERRICK Dela Cruz CNP - 06/17/2023 2:51 PM EST Prescriptions refilled. OAARS report ran * Telephone Encounter - Kyle Mckinney - 06/17/2023 2:17 PM EST Patient would like a refill on her lorazepam and oxycodone sent to the pharmacy at [place] already on file, thank you documented in this [facility]04-15-2024 Telephone encounter Note* Telephone Encounter - Keyla Gilman - 08/04/2023 8:32 AM EDT Patient mentioned that she would like her four prescription refill. The prescriptions are Lorazepam, Oxycodone, Trazodone, and Prochlorperzine. [id number] Telephone encounter Note* Telephone Encounter - MERRICK Sanchez CNP - 07/23/2023 8:25 AM EDT OARRS report verified, Oxycodone and Ativan sent to pt's pharmacy per pt request. Both medications are controlling her sx. [facility]Bprbmf37-01-8319 Miscellaneous Notes* Telephone Encounter - MERRICK Sanchez CNP - 07/23/2023 8:25 AM EDT OARRS report verified, Oxycodone and Ativan sent to pt's pharmacy per pt request. Both medications are controlling her sx. * Telephone Encounter - Kyle Mckinney - 07/23/2023 8:04 AM EDT Patient would like a refill for oxycodone and lorazepam sent to pharmacy on file, thank you * Telephone Encounter - Kyle Mckinney - 07/09/2023 10:43 AM EDT Patient would like a refill on her lorazepam and oxycodone sent to the pharmacy at [place] already on file, thank you * Telephone Encounter - Keyla Gilman - 07/02/2023 9:36 AM EDT Patient mentioned that she would like her prescription refilled. The oxycodone and lorazepam. * Telephone Encounter - Kyle Mckinney - 06/25/2023 9:56 AM EST Patient requesting refill for Oxycodone to be sent to pharmacy on file, thank you * Addendum Note - MERRICK Dela Cruz CNP - 06/17/2023 2:52 PM ESTAddended by: MALINDA BOONE on: 06/17/2023 02:52 PM Modules accepted: Orders * Telephone Encounter - MERRICK Dela Cruz CNP - 06/17/2023 2:51 PM EST Prescriptions refilled. OAARS report ran * Telephone Encounter - Kyle Mckinney - 06/17/2023 2:17 PM EST Patient would like a refill on her lorazepam and oxycodone sent to the pharmacy at [place] already on file, thank you documented in this [facility]04-03-2024 Telephone encounter Note* Telephone Encounter - Kyle Mckinney - 07/23/2023 8:04 AM EDT Patient would like a refill for oxycodone and lorazepam sent to pharmacy on file, thank you [id number] History of Present illness Narrative* MERRICK Sanchez CNP - 07/09/2023 10:52 AM EDT OARRS verified, per pt request, Oxycodone and Ativan sent to pt's pharmacy for anxiety and pain related to cancer diagnosis. Both controlled while taking these medications. documented in this [facility]03-20-2024 Telephone encounter Note* Telephone Encounter - Kyle Mckinney - 07/09/2023 10:43 AM EDT Patient would like a refill on her lorazepam and oxycodone sent to the pharmacy at [place] already on file, thank you [id number] Miscellaneous Notes* Telephone Encounter - Kyle Mckinney - 07/09/2023 10:43 AM EDT Patient would like a refill on her lorazepam and oxycodone sent to the pharmacy at [place] already on file, thank you * Telephone Encounter - Keyla Gilman - 07/02/2023 9:36 AM EDT Patient mentioned that she would like her prescription refilled. The oxycodone and lorazepam. * Telephone Encounter - Kyle Mckinney - 06/25/2023 9:56 AM EST Patient requesting refill for Oxycodone to be sent to pharmacy on file, thank you * Addendum Note - MERRICK Dela Cruz CNP - 06/17/2023 2:52 PM ESTAddended by: MALINDA BOONE on: 06/17/2023 02:52 PM Modules accepted: Orders * Telephone Encounter - MERRICK Dela Cruz CNP - 06/17/2023 2:51 PM EST Prescriptions refilled. OAARS report ran * Telephone Encounter - Kyle Mckinney - 06/17/2023 2:17 PM EST Patient would like a refill on her lorazepam and oxycodone sent to the pharmacy at [place] already on file, thank you documented in this [facility]03-13-2024 History of Present illness Narrative* MERRICK Sanchez CNP - 07/02/2023 12:14 PM EDT OARRS verified, oxycodone and Ativan sent to pt's pharmacy per pt request. Pt verbalized understanding, no further questions. documented in this [place] [id number] Telephone encounter Note* Telephone Encounter - Keyla Gilman - 07/02/2023 9:36 AM EDT Patient mentioned that she would like her prescription refilled. The oxycodone and lorazepam. [place] [id number] Miscellaneous Notes* Telephone Encounter - Keyla Gilman - 07/02/2023 9:36 AM EDT Patient mentioned that she would like her prescription refilled. The oxycodone and lorazepam. * Telephone Encounter - Kyle Mckinney - 06/25/2023 9:56 AM EST Patient requesting refill for Oxycodone to be sent to pharmacy on file, thank you * Addendum Note - MERRICK Dela Cruz CNP - 06/17/2023 2:52 PM ESTAddended by: MALINDA BOONE on: 06/17/2023 02:52 PM Modules accepted: Orders * Telephone Encounter - MERRICK Dela Cruz CNP - 06/17/2023 2:51 PM EST Prescriptions refilled. OAARS report ran * Telephone Encounter - Kyle Welshneil - 06/17/2023 2:17 PM EST Patient would like a refill on her lorazepam and oxycodone sent to the pharmacy at [place] already on file, thank you documented in this [facility]03-07-2024 Telephone encounter Note* Telephone Encounter - Danny Sharma MD - 06/26/2023 4:33 PM EST I called Dr. Melendez back. Plan for CT chest abdomen and pelvis in 2 months which will be 3 months from completion of her radiation to the pulmonary nodule. [facility] [id number] Miscellaneous Notes* Telephone Encounter - Danny Sharma MD - 06/26/2023 4:33 PM EST I called Dr. Melendez back. Plan for CT chest abdomen and pelvis in 2 months which will be 3 months from completion of her radiation to the pulmonary nodule. documented in this [facility]03-06-2024 History of Present illness Narrative* MERRICK Sanchez CNP - 06/25/2023 3:02 PM EST OARRS verified, Oxycodone refilled per pt request. documented in this [facility]03-06-2024 Telephone encounter Note* Telephone Encounter - Kyle Hank - 06/25/2023 9:56 AM EST Patient requesting refill for Oxycodone to be sent to pharmacy on file, thank you [facility] HospitalWmxznt94-69-8267 Miscellaneous Notes* Telephone Encounter - Kyle Mckinney - 06/25/2023 9:56 AM EST Patient requesting refill for Oxycodone to be sent to pharmacy on file, thank you * Addendum Note - MERRICK Dela Cruz CNP - 06/17/2023 2:52 PM ESTAddended by: MALINDA BOONE on: 06/17/2023 02:52 PM Modules accepted: Orders * Telephone Encounter - MERRICK Dela Cruz CNP - 06/17/2023 2:51 PM EST Prescriptions refilled. OAARS report ran * Telephone Encounter - Kyle Mckinney - 06/17/2023 2:17 PM EST Patient would like a refill on her lorazepam and oxycodone sent to the pharmacy at [place] already on file, thank you documented in this [facility] HospitalCdseih62-72-8662 Note* Addendum Note - MERRICK Dela Cruz CNP - 06/17/2023 2:52 PM ESTAddended by: MALINDA BOONE on: 06/17/2023 02:52 PM Modules accepted: Orders [facility] HospitalEctivk13-74-7148 Note* Addendum Note - MERRICK Dela Cruz CNP - 06/17/2023 2:52 PM ESTAddended by: MALINDA BOONE on: 06/17/2023 02:52 PM Modules accepted: Orders [address]Hajvsx58-86-5213 Note* Addendum Note - MERRICK Dela Cruz CNP - 06/17/2023 2:52 PM ESTAddended by: MALINDA BOONE on: 06/17/2023 02:52 PM Modules accepted: Orders [address]Vkitau05-98-2823 Note* Addendum Note - MERRICK Dela Cruz CNP - 06/17/2023 2:52 PM ESTAddended by: MALINDA BONOE on: 06/17/2023 02:52 PM Modules accepted: Orders [address]Jkxgfh36-57-9874 Note* Addendum Note - MERRICK Dela Cruz CNP - 06/17/2023 2:52 PM ESTAddended by: MALINDA BOONE on: 06/17/2023 02:52 PM Modules accepted: Orders [address]Hxdylq57-26-7865 Note* Addendum Note - MERRICK Dela Cruz CNP - 06/17/2023 2:52 PM ESTAddended by: MALINDA BOONE on: 06/17/2023 02:52 PM Modules accepted: Orders [address]Nlovpn29-75-3802 Note* Addendum Note - MERRICK Dela Cruz CNP - 06/17/2023 2:52 PM ESTAddended by: MALINDA BOONE on: 06/17/2023 02:52 PM Modules accepted: Orders [facility] HospitalQukceo71-27-5934 Note* Addendum Note - MERRICK Dela Cruz CNP - 06/17/2023 2:52 PM ESTAddended by: MALINDA BOONE on: 06/17/2023 02:52 PM Modules accepted: Orders [address]Whetgw80-12-0955 Note* Addendum Note - MERRICK Dela Cruz CNP - 06/17/2023 2:52 PM ESTAddended by: MALINDA BOONE on: 06/17/2023 02:52 PM Modules accepted: Orders [address]Fcvkhq26-93-7880 Note* Addendum Note - MERRICK Dela Cruz CNP - 06/17/2023 2:52 PM ESTAddended by: MALINDA BOONE on: 06/17/2023 02:52 PM Modules accepted: Orders [address]Qlssov99-39-2918 Note* Addendum Note - MERRICK Dela Cruz CNP - 06/17/2023 2:52 PM ESTAddended by: MALINDA BOONE on: 06/17/2023 02:52 PM Modules accepted: Orders [address]Vnzhuu24-74-1581 Note* Addendum Note - MERRICK Dela Cruz CNP - 06/17/2023 2:52 PM ESTAddended by: MALINDA BOONE on: 06/17/2023 02:52 PM Modules accepted: Orders [address]Awkkqr46-28-1119 Note* Addendum Note - MERRICK Dela Cruz CNP - 06/17/2023 2:52 PM ESTAddended by: MALINDA BOONE on: 06/17/2023 02:52 PM Modules accepted: Orders [address]Eukqhs20-53-8305 Note* Addendum Note - MERRICK Dela Cruz CNP - 06/17/2023 2:52 PM ESTAddended by: MALINDA BOONE on: 06/17/2023 02:52 PM Modules accepted: Orders [address]Laueoz29-81-9639 Note* Addendum Note - MERRICK Dela Cruz CNP - 06/17/2023 2:52 PM ESTAddended by: MALINDA BOONE on: 06/17/2023 02:52 PM Modules accepted: Orders [address]Vtegrs10-34-6619 Note* Addendum Note - MERRICK Dela Cruz CNP - 06/17/2023 2:52 PM ESTAddended by: MALINDA BOONE on: 06/17/2023 02:52 PM Modules accepted: Orders [address]Pmfybe67-72-6107 Note* Addendum Note - MERRICK Dela Cruz CNP - 06/17/2023 2:52 PM ESTAddended by: MALINDA BOONE on: 06/17/2023 02:52 PM Modules accepted: Orders [address]Kcvfxj10-69-2639 Miscellaneous Notes* Addendum Note - MERRICK Dela Cruz CNP - 06/17/2023 2:52 PM ESTAddended by: MALINDA BOONE on: 06/17/2023 02:52 PM Modules accepted: Orders * Telephone Encounter - MERRICK Dela Cruz CNP - 06/17/2023 2:51 PM EST Prescriptions refilled. OAARS report ran * Telephone Encounter - Kyle Mckinney - 06/17/2023 2:17 PM EST Patient would like a refill on her lorazepam and oxycodone sent to the pharmacy at [place] already on file, thank you documented in this encounterSSal[facility] City HospitalNrunkp30-81-3351 Telephone encounter Note* Telephone Encounter - MERRICK Dela Cruz CNP - 06/17/2023 2:51 PM EST Prescriptions refilled. OAARS report ran [facility] HospitalZbzpyj83-54-4931 Telephone encounter Note* Telephone Encounter - Kyle Mckinney - 06/17/2023 2:17 PM EST Patient would like a refill on her lorazepam and oxycodone sent to the pharmacy at [place] already on file, thank you [address]Qldnln50-23-2490 Note* Addendum Note - MERRICK Dela Cruz CNP - 06/09/2023 3:47 PM ESTAddended by: MALINDA BOONE on: 06/09/2023 03:47 PM Modules accepted: Orders [address]Uioryi93-24-8309 Note* Addendum Note - MERRICK Dela Cruz CNP - 06/09/2023 3:47 PM ESTAddended by: MALINDA BOONE on: 06/09/2023 03:47 PM Modules accepted: Orders [facility] HospitalRkkvzs93-85-6518 Miscellaneous Notes* Addendum Note - MERRICK Dela Cruz CNP - 06/09/2023 3:47 PM ESTAddended by: MALINDA BOONE on: 06/09/2023 03:47 PM Modules accepted: Orders * Telephone Encounter - MERRICK Dela Cruz CNP - 06/09/2023 3:46 PM EST Sent prescription to patients pharmacy. OAARS report ran * Telephone Encounter - Keyla Gilman - 06/09/2023 2:53 PM EST Patient called into the office to get her prescription. The prescription is Lorazepam. * Addendum Note - MERRICK Dela Cruz CNP - 05/20/2023 3:08 PM ESTAddended by: MALINDA BOONE on: 05/20/2023 03:08 PM Modules accepted: Orders * Telephone Encounter - MERRICK Dela Cruz CNP - 05/20/2023 3:07 PM EST Pain prescription sent to patient's pharmacy. OARRS report ran * Telephone Encounter - Keyla Gilman - 05/20/2023 2:49 PM EST Patient called to get her prescription refilled. The prescription is oxyCodone * Addendum Note - MERRICK Dela Cruz CNP - 05/06/2023 1:17 PM ESTAddended by: MALINDA BOONE on: 05/06/2023 01:17 PM Modules accepted: Orders * Telephone Encounter - MERRICK Dela Cruz CNP - 05/06/2023 1:17 PM EST Called patient back regarding pain prescription. I did inform patient would like to start taking less oxycodone and start rotating Advil and Tylenol to help manage the pain. OARRS report ran. Verbalizes understanding * Telephone Encounter - Kyle Mckinney - 05/06/2023 1:11 PM EST Patient returning missed call. Please call back when able, thank you * Telephone Encounter - MERRICK Dela Cruz CNP - 05/06/2023 11:57 AM EST Called patient back and left a message regarding refill that I prescribed last Friday. Informed patient to give me a call back * Telephone Encounter - Keyla Gilman - 05/06/2023 11:28 AM EST Patient mentioned that she would like her prescriptions refilled. Patient refills are Lorazepam andoxyCodone * Telephone Encounter - Danny Sharma MD - 04/16/2023 11:51 AM EST I spoke with Danny. She is aware of the PET results and the plan for targeted radiation through 's office once he has a chance to review the images. * Telephone Encounter - Dixie Zamudio - 04/16/2023 10:24 AM EST LVM for ever to inform her that we are unable to send the imaging from pt's PET scan. I left radiology's number for pt to call to get images. Left our call back number if she has any questions. * Telephone Encounter - Kyle Hank - 04/16/2023 10:02 AM EST Ever calling from [facility] to return Dr. Quiñonez's call. States that Dr. Melendez won'tbe back until 04-22-2023. Requested for us to push the PET images to [facility], faxing the report now to [phone]. If there are any questions, please call back Ever at [phone] opt 6, thank you * Telephone Encounter - Danny Sharma MD - 04/15/2023 4:16 PM EST LM for patient to discuss PET scan. Case discussed with Dr. Mortensen. Plan for referral back to Dr. 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 LM for Dr. Melendez - he is out of the office this week. documented in this encounterSSalem City HospitalNemyej43-10-6535 Telephone encounter Note* Telephone Encounter - MERRICK Dela Cruz CNP - 06/09/2023 3:46 PM EST Sent prescription to patients pharmacy. OAARS report ran [facility] HospitalDnmyke07-32-2294 Telephone encounter Note* Telephone Encounter - Keyla Gilman - 06/09/2023 2:53 PM EST Patient called into the office to get her prescription. The prescription is Lorazepam. [facility] HospitalPscnuo10-65-1838 Note* Addendum Note - MERRICK Dela Cruz CNP - 05/20/2023 3:08 PM ESTAddended by: MALINDA BOONE on: 05/20/2023 03:08 PM Modules accepted: Orders [facility] HospitalGtdnjc19-64-2613 Note* Addendum Note - MERRICK Dela Cruz CNP - 05/20/2023 3:08 PM ESTAddended by: MALINDA BOONE on: 05/20/2023 03:08 PM Modules accepted: Orders [facility] HospitalRlxilw51-71-8518 Note* Addendum Note - MERRICK Dela Cruz CNP - 05/20/2023 3:08 PM ESTAddended by: MALINDA BOONE on: 05/20/2023 03:08 PM Modules accepted: Orders [address]Mvzefj38-91-5425 Note* Addendum Note - MERRICK Dela Cruz CNP - 05/20/2023 3:08 PM ESTAddended by: MALINDA BOONE on: 05/20/2023 03:08 PM Modules accepted: Orders [address]Xxrnnf67-90-1829 Miscellaneous Notes* Addendum Note - MERRICK Dela Cruz CNP - 05/20/2023 3:08 PM ESTAddended by: MALINDA BOONE on: 05/20/2023 03:08 PM Modules accepted: Orders * Telephone Encounter - MERRICK Dela Cruz CNP - 05/20/2023 3:07 PM EST Pain prescription sent to patient's pharmacy. OARRS report ran * Telephone Encounter - Keyla Gilman - 05/20/2023 2:49 PM EST Patient called to get her prescription refilled. The prescription is oxyCodone * Addendum Note - MERRICK Dela Cruz CNP - 05/06/2023 1:17 PM ESTAddended by: MALINDA BOONE on: 05/06/2023 01:17 PM Modules accepted: Orders * Telephone Encounter - MERRICK Dela Cruz CNP - 05/06/2023 1:17 PM EST Called patient back regarding pain prescription. I did inform patient would like to start taking less oxycodone and start rotating Advil and Tylenol to help manage the pain. OARRS report ran. Verbalizes understanding * Telephone Encounter - Kyle Mckinney - 05/06/2023 1:11 PM EST Patient returning missed call. Please call back when able, thank you * Telephone Encounter - MERRICK Dela Cruz CNP - 05/06/2023 11:57 AM EST Called patient back and left a message regarding refill that I prescribed last Friday. Informed patient to give me a call back * Telephone Encounter - Keyla Gilman - 05/06/2023 11:28 AM EST Patient mentioned that she would like her prescriptions refilled. Patient refills are Lorazepam andoxyCodone * Telephone Encounter - Danny Sharma MD - 04/16/2023 11:51 AM EST I spoke with Danny. She is aware of the PET results and the plan for targeted radiation through 's office once he has a chance to review the images. * Telephone Encounter - Dixie Zamudio - 04/16/2023 10:24 AM EST LVM for ever to inform her that we are unable to send the imaging from pt's PET scan. I left radiology's number for pt to call to get images. Left our call back number if she has any questions. * Telephone Encounter - Kyle Mckinney - 04/16/2023 10:02 AM EST Ever calling from [facility] to return Dr. Quiñonez's call. States that Dr. Melendez won'tbe back until 04-22-2023. Requested for us to push the PET images to [facility], faxing the report now to [phone]. If there are any questions, please call back Ever at [phone] opt 6, thank you * Telephone Encounter - Danny Sharma MD - 04/15/2023 4:16 PM EST LM for patient to discuss PET scan. Case discussed with Dr. Mortensen. Plan for referral back to Dr. 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 LM for Dr. Melendez - he is out of the office this week. documented in this [facility]01-30-2024 Telephone encounter Note* Telephone Encounter - MERRICK Dela Cruz CNP - 05/20/2023 3:07 PM EST Pain prescription sent to patient's pharmacy. OARRS report ran [facility] HospitalFdzqit47-49-1109 Telephone encounter Note* Telephone Encounter - Keyla Gilman - 05/20/2023 2:49 PM EST Patient called to get her prescription refilled. The prescription is oxyCodone [facility] HospitalBnagef07-52-9211 Telephone encounter Note* Telephone Encounter - Zina Cruz MA - 05/13/2023 11:33 AM EST Pt called in stating she is having leg and lower back pain. She is requesting a refill on her oxycodone 5 mg and lorazepam 1mg [place] [id number] Miscellaneous Notes* Telephone Encounter - Zina Cruz MA - 05/13/2023 11:33 AM EST Pt called in stating she is having leg and lower back pain. She is requesting a refill on her oxycodone 5 mg and lorazepam 1mg documented in this [facility]01-16-2024 Note* Addendum Note - MERRICK Dela Cruz CNP - 05/06/2023 1:17 PM ESTAddended by: MALINDA BOONE on: 05/06/2023 01:17 PM Modules accepted: Orders [address]Gxahzd87-57-3890 Note* Addendum Note - MERRICK Dela Cruz CNP - 05/06/2023 1:17 PM ESTAddended by: MALINDA BOONE on: 05/06/2023 01:17 PM Modules accepted: Orders [address]Kjgxlf03-22-7859 Note* Addendum Note - MERRICK Dela Cruz CNP - 05/06/2023 1:17 PM ESTAddended by: MALINDA BOONE on: 05/06/2023 01:17 PM Modules accepted: Orders [address]Stpqgp35-15-0670 Note* Addendum Note - MERRICK Dela Cruz CNP - 05/06/2023 1:17 PM ESTAddended by: MALINDA BOONE on: 05/06/2023 01:17 PM Modules accepted: Orders [address]16-2024 Note* Addendum Note - MERRICK Dela Cruz CNP - 05/06/2023 1:17 PM ESTAddended by: MALINDA BOONE on: 05/06/2023 01:17 PM Modules accepted: Orders [address]16-2024 Note* Addendum Note - MERRICK Dela Cruz CNP - 05/06/2023 1:17 PM ESTAddended by: MALINDA BOONE on: 05/06/2023 01:17 PM Modules accepted: Orders [place] [id number] Note* Addendum Note - MERRICK Dela Cruz CNP - 05/06/2023 1:17 PM ESTAddended by: MALINDA BOONE on: 05/06/2023 01:17 PM Modules accepted: Orders [address]Vhucbt09-69-5275 Note* Addendum Note - MERRICK Dela Cruz CNP - 05/06/2023 1:17 PM ESTAddended by: MALINDA BOONE on: 05/06/2023 01:17 PM Modules accepted: Orders [address]Bamvms01-12-2858 Telephone encounter Note* Telephone Encounter - MERRICK Dela Cruz CNP - 05/06/2023 1:17 PM EST Called patient back regarding pain prescription. I did inform patient would like to start taking less oxycodone and start rotating Advil and Tylenol to help manage the pain. OARRS report ran. Verbalizes understanding [address]Eemllv20-31-2357 Miscellaneous Notes* Addendum Note - MERRICK Dela Cruz CNP - 05/06/2023 1:17 PM ESTAddended by: MALINDA BOONE on: 05/06/2023 01:17 PM Modules accepted: Orders * Telephone Encounter - MERRICK Dela Cruz CNP - 05/06/2023 1:17 PM EST Called patient back regarding pain prescription. I did inform patient would like to start taking less oxycodone and start rotating Advil and Tylenol to help manage the pain. OARRS report ran. Verbalizes understanding * Telephone Encounter - Kyle Mckinney - 05/06/2023 1:11 PM EST Patient returning missed call. Please call back when able, thank you * Telephone Encounter - MERRICK Dela Cruz CNP - 05/06/2023 11:57 AM EST Called patient back and left a message regarding refill that I prescribed last Friday. Informed patient to give me a call back * Telephone Encounter - Keyla Gilman - 05/06/2023 11:28 AM EST Patient mentioned that she would like her prescriptions refilled. Patient refills are Lorazepam andoxyCodone * Telephone Encounter - Danny Sharma MD - 04/16/2023 11:51 AM EST I spoke with Danny. She is aware of the PET results and the plan for targeted radiation through 's office once he has a chance to review the images. * Telephone Encounter - Dixie Zamudio - 04/16/2023 10:24 AM EST LVM for ever to inform her that we are unable to send the imaging from pt's PET scan. I left radiology's number for pt to call to get images. Left our call back number if she has any questions. * Telephone Encounter - Kyle Mckinney - 04/16/2023 10:02 AM EST Ever calling from [facility] to return Dr. Quiñonez's call. States that Dr. Melendez won'tbe back until 04-22-2023. Requested for us to push the PET images to [facility], faxing the report now to [phone]. If there are any questions, please call back Ever at [phone] opt [phone], thank you * Telephone Encounter - Danny Sharma MD - 04/15/2023 4:16 PM EST LM for patient to discuss PET scan. Case discussed with Dr. Mortensen. Plan for referral back to Dr. 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 LM for Dr. Melendez - he is out of the office this week. documented in this encounterSSalem City [id number] Telephone encounter Note* Telephone Encounter - Kyle Mckinney - 05/06/2023 1:11 PM EST Patient returning missed call. Please call back when able, thank you [facility] [id number] Telephone encounter Note* Telephone Encounter - MERRICK Dela Cruz CNP - 05/06/2023 11:57 AM EST Called patient back and left a message regarding refill that I prescribed last Friday. Informed patient to give me a call back [id number] Telephone encounter Note* Telephone Encounter - Keyla Gilman - 05/06/2023 11:28 AM EST Patient mentioned that she would like her prescriptions refilled. Patient refills are Lorazepam andoxyCodone [place] [id number] History of Present illness Narrative* MERRICK Dela Cruz CNP - 05/01/2023 3:20 PM EST Chief Complaint Patient presents with Endometrial Cancer Itching and soreness HISTORY OF THE PRESENT ILLNESS: Danny Pink is a pleasant 67 y.o. female with recurrent endometrial cancer. She has a history of stage IB, FIGO grade 2 endometrioid endometrial adenocarcinoma, +LVSI, +washings, MMR protein testing normal. She underwent robotic endometrial cancer staging on 01/19/2018. Met diagnostic criteria for high-intermediate risk of recurrence. Completed pelvic radiation on 04/27/18. Unfortunately, the patient complained of new onset of back pain in September 2019. She underwent a computed tomography scan of the abdomen and pelvis which showed an enlarged left periaortic lymph node. PET scan confirmed that this was a focus of FDG avidity. There were no other sites of metastatic disease on the PET scan. Management options were discussed with the patient at length. We elected to proceed with an attempt at surgical resection. She underwent attempted robotic resection of the left periaortic lymph node on 12/09/2019. Unfortunately, there was evidence of extracapsular extension of disease and the lymph node was matted and densely adherent to the abdominal aorta. There is no way tocompletely surgically resect the disease. Biopsies were obtained confirming the diagnosis. Patient was started on systemic chemotherapy with carboplatin and paclitaxel. Patient completed cycle #6 carbo/taxol on 04/19/2020. She was on a reduced dose of Taxol 135 mg/m2 due to arthralgias and myalgias. 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 I recommended 3 additional cycles of chemotherapy. Completed #9 cycles of carbo/taxol. Overall, she tolerated chemotherapy well. She does have arthralgias and myalgias that are better tolerated on the reduced dose of Taxol. Repeat PET 08/25/2020: IMPRESSION: There has been significant improvement of intensity of FDG accumulation within a mildly enlarged left periaortic lymph node when compared to the study from 06/16/2020. On the current examination, the node demonstrates mild FDG accumulation. Attention to this area is recommended on subsequent examinations. There are no new areas of abnormal FDG accumulation seen to suggest progression of malignancy. We discussed treatment options - continued carbo/taxol versus hormonal therapy. We switched to tamoxifen/megace. Patient was unable to tolerate hormonal therapy. When she was seen in the office in November 2020 there was a new vaginal lesion. Biopsy confirmed recurrent endometrial cancer. The patientwas started on systemic chemotherapy with Keytruda and Lenvima. She was unable to tolerate Lenvima which was discontinued. She underwent a PET scan on 02/22/2021 to assess response to treatment which showed: IMPRESSION: There is fairly intense, abnormal FDG accumulation within a mildly enlarged left para-aortic lymph node, consistent with residual or recurrent malignancy. When compared to the examination dated 12/08/2020, both the size and intensity of FDG uptake within this node has increased. No new areas of abnormal FDG accumulation are identified. On examination, the periurethral lesion that was somewhat smaller in size. The decision was made tocontinue systemic immunotherapy with Keytruda and consider re-irradiation of the left periaortic lymph node. Received radiation therapy in [place] with Dr. Melendez. Treated from April 25 through May 29, 2021. Received 45 Gy to the periaortic lymph nodes with a simultaneous boost to 55 Gy to the gross disease. Overall, tolerated treatments well and was able to continue Keytruda during her radiation. Does have arthralgia/myalgias several days after Keytruda. Having a rash. Just on her face, happensabout 1 week after the Keytruda. Recurrent urinary tract infections after Keytruda. We are treatingwith prophylactic Bactrim following treatment. PET 08/20/2021: IMPRESSION: Previously identified FDG avid left para-aortic lymph node on the study from 02/22/2021 has decreased in size and intensity of FDG accumulation. No new FDG avid lymphadenopathy is seen within the abdomen or pelvis. There is a new focus of increased FDG uptake within the perineum in the expected location of the vaginal vault or near the vaginal cuff. The intensity of uptake is suspicious for residual or recurrent malignancy. Referred to radiation oncology for interstitial brachytherapy at [facility]. Underwent treatment 12/2021. Post treatment reported blisters on the labia that were painful with drainage. Moist desquamation. Decided to discontinue Keytruda. MRI 04/17/2022: FINDINGS: Uterus: The uterus is surgically absent. The previously seen focus of signal abnormality with abnormal enhancement or restricted diffusion along the posterior wall of the vagina is present, with resolution of the previously seen restricted diffusion and abnormal enhancement. No new pelvic masses identified. Adnexa: No adnexal mass. Neither ovary is identified Free fluid: none identified Lymphadenopathy: none identified Other soft tissue structures: No other abnormality identified Osseous structures: Normal IMPRESSION: Resolution of the previously seen mass along the posterior wall of the vagina. No new pelvic mass. PET 04/25/2022: IMPRESSION: There has been significant improvement of the previously noted area of abnormal FDG accumulation inthe expected location of the vagina or vaginal cuff on the study from 09/07/2021. On the current examination, there is a small area of moderate FDG accumulation at the left margin of the vaginal cuff.This could reflect inflammation following radiation therapy, however a small area of residual or recurrent malignancy cannot be excluded. Continued follow-up is recommended. Borderline enlarged left paratracheal lymph node demonstrate mild to moderate FDG accumulation, unchanged in size and intensity of FDG accumulation when compared to the study from 09/07/2021. No new FDG avid lymphadenopathy or other mass is seen within the abdomen or pelvis. On exam there was an exophytic lesion in the mid-vagina. Biopsy confirmed persistent endometrial cancer. Patient was taken for simple partial vaginectomy 05/2022. Pathology confirmed malignancy, negative margins. Taken to the OR for simple partial vulvectomy (removal of right labia minora) and simple partial vaginectomy on 08/19/2022. Final pathology showed focally+ poorly differentiate carcinoma. ER - weak, patchy positive. PET scan 09/09/2022: IMPRESSION: Impression: No convincing evidence of residual malignancy. Follow-up recommended. Interval History: Patient presents to the office today for follow up. Patient States that the vulvar pain is improving. Was Referred to wound clinic. Trial collagen BID to the area with saline cleanses. Helped some. Still very tender. Easier to sit now! 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 Patient states vaginal pain has improved a lot. PET 04/10/2023: IMPRESSION: There is an intensely FDG avid 1 cm nodule within the posterior aspect of the right upper lobe, consistent with residual or recurrent malignancy. Referred back to radiation oncology for SBRT. Waiting on an appointment with radiation. Past Medical History: Diagnosis Date Anemia LOW IRON DUE TO BLEEDING Asthma Cerebral artery occlusion with cerebral infarction (HCC) Diabetes (HCC) Endometrial adenocarcinoma (CMS/HCC) (HCC) FIGO GRADE 2 GERD (gastroesophageal reflux disease) Glaucoma 2014 Hx of blood clots Mini stroke 2014 Thrombotic. Affected short term memory, had to relearn things, locations. Past Surgical History: Procedure Laterality Date CATARACT EXTRACTION W/ INTRAOCULAR LENS IMPLANT Right 07/09/2021 SECTION (HISTORICAL) x2. Pfannenstiel incisions. COLONOSCOPY DILATION AND CURETT[facility] MEDIPORT PLACEMENT OTHER SURGICAL HISTORY 12/09/2019 Robotic Fe-Aortic Biopsy TONSILLECTOMY (HISTORICAL) TOTAL ABDOMINAL HYSTERECTOMY 01/19/2018 Robotic hysterectomy, BSO, right pelvic sentinel LNB, left pelvic lymphadenectomy-Dr. Khang Tapia [facility] TUBAL LIGATION UPPER GASTROINTESTINAL ENDOSCOPY Family History Problem Relation Name Age of Onset Breast cancer Mother 90 Ovarian cancer Neg Hx Colon cancer Neg Hx Uterine cancer Neg Hx Social History Socioeconomic History Marital status: Spouse name: Not on file Number of children: Not on file Years of education: Not on file Highest education level: Not on file Occupational History Not on file Tobacco Use Smoking status: Former Packs/day: 1.5 Types: Cigarettes Quit date: 01/12/2003 Years since quittin.3 Smokeless tobacco: Never Vaping Use Vaping Use: Never used Substance and Sexual Activity Alcohol use: Yes Comment: socially Drug use: No Sexual activity: Not Currently control/protection: Surgical Comment: hysterectomy Other Topics Concern Not on file Social History Narrative Not on file Social Determinants of Health Financial Resource Strain: Not on file Food Insecurity: Not on file Transportation Needs: Not on file Physical Activity: Not on file Stress: Not on file Social Connections: Not on file Intimate Partner Violence: Not At Risk (05/30/2022) Humiliation, Afraid, Rape, and Kick questionnaire Fear of Current or Ex-Partner: No Emotionally Abused: No Physically Abused: No Sexually Abused: No Housing Stability: Not on file Current Outpatient Medications on File Prior to Visit Medication Sig Dispense Refill acetaminophen (Tylenol) 500 MG tablet Take 1,000 mg by mouth every 6 hours as needed. albuterol 108 (90 Base) MCG/ACT inhaler Inhale 90 each if needed. aspirin 81 MG chewable tablet Chew 81 mg daily. bacitracin 500 UNIT/GM ointment Apply topically 2 times daily. 28.4 g 0 bisacodyl (Dulcolax) 5 MG EC tablet Take 10 mg by mouth if needed. brimonidine (AlphaGAN P) 0.2 % ophthalmic solution Administer 0.2 drops into both eyes if needed. calcium carbonate (Os-Papito) 1250 (500 Ca) MG chewable tablet Chew 1 tablet if needed. cholecalciferol (Vitamin D-3) 50 MCG (2000 UT) capsule Take 1 capsule (50 mcg) by mouth in the morning. 30 capsule 2 dicyclomine (Bentyl) 10 MG capsule Take 10 mg by mouth if needed. gabapentin (Neurontin) 300 MG capsule Take 1 capsule (300 mg) by mouth Nightly. 90 capsule 1 glimepiride (Amaryl) 4 MG tablet Take 4 mg by mouth daily. ibuprofen 800 MG tablet Take 1 tablet (800 mg) by mouth every 8 hours as needed for mild pain (1-3)or moderate pain (4-6). 60 tablet 0 latanoprost (Xalatan) 0.005 % ophthalmic solution Administer 0.005 drops into both eyes daily. lidocaine (Xylocaine) 5 % ointment Apply topically 2 times daily. 50 g 3 lisinopril 10 MG tablet Take 1 tablet by mouth in the morning. metFORMIN XR (Glucophage-XR) 500 MG 24 hr tablet Take 500 mg by mouth in the morning and 500 mg in the evening. Miconazole Nitrate 4 % cream Insert 1 Application into the vagina 2 times daily as needed (itching). 25 g 0 Misc. Devices (Sitz Bath) misc Use for pain relief as needed 1 each 0 Misc. Devices (Collins Bottle/Plastic 120mL) misc Use to clean area as needed 1 each 0 naloxone (Narcan) 4 mg/0.1 mL nasal spray Administer 4 mg into affected nostril(s) if needed. ondansetron (Zofran) 8 MG tablet Take 8 mg by mouth if needed. pantoprazole (ProtoNix) 40 MG EC tablet Take 40 mg by mouth if needed. prochlorperazine (Compazine) 10 MG tablet Take 1 tablet (10 mg) by mouth every 8 hours as needed for nausea or vomiting. 120 tablet 3 sennosides (Senokot) 8.6 MG tablet Take 8.6 mg by mouth in the morning and 8.6 mg in the evening. silver sulfADIAZINE (Silvadene) 1 % cream Apply 1 application. topically 2 times daily. 85 g 1 sucralfate (Carafate) 1 GM/10ML suspension Take 1 g by mouth if needed. Symbicort 160-4.5 MCG/ACT inhaler Inhale 160 puffs if needed. traZODone (Desyrel) 100 MG tablet Take 1 tablet (100 mg) by mouth Nightly. 30 tablet 3 triamcinolone (Kenalog) 0.1 % ointment Apply topically 2 times daily. 80 g 3 sertraline (Zoloft) 100 MG tablet Take 1 tablet (100 mg) by mouth daily. (Patient taking differently: Take 100 mg by mouth Nightly.) 90 tablet 1 [DISCONTINUED] LORazepam (Ativan) 1 MG tablet Take 1 tablet (1 mg) by mouth every 8 hours as neededfor anxiety for up to 10 days. 30 tablet 0 No current facility-administered medications on file prior to visit. Allergies as of 05/01/2023 - Reviewed 05/01/2023 Allergen Reaction Noted Morphine Anaphylaxis and Shortness of breath 11/22/2021 Codeine Rash and Nausea And Vomiting 12/30/2017 Review of Systems A 12 point review of systems was performed and is as per the history of the present illness, all other systems were reviewed and are negative. Vitals: 05/01/23 1509 BP: (!) 140/72 Body mass index is 38.58 kg/m . Physical Exam Vitals reviewed. Constitutional: General: She is not in acute distress. Appearance: Normal appearance. She is not ill-appearing, toxic-appearing or diaphoretic. HENT: Head: Normocephalic and atraumatic. Eyes: General: No scleral icterus. Extraocular Movements: Extraocular movements intact. Cardiovascular: Rate and Rhythm: Normal rate. Pulmonary: Effort: Pulmonary effort is normal. No respiratory distress. Genitourinary: Urethra: No prolapse, urethral pain, urethral swelling or urethral lesion. Vagina: Normal. Uterus: Absent. Comments: There are two ulcerative lesions noted as above in green. 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 The lesion on the medial aspect of the left labia minora is more prominent, several cm in length and width. Fibrinous exudative material at the base. There are no new lesions in the vagina concerning for malignancy. There are more prominent changes related to radiation involving the anterior vagina. There appears to be chronic irritation in the distal vagina more notable in the suburethral area. It is not firm nor friable on exam or palpation. There is some increased vascularity involving the posterior distal vagina that looks more consistent with radiation changes. This is flush with the surrounding tissue and does not appear consistent with malignancy. Musculoskeletal: Right lower leg: No edema. Left lower leg: No edema. Skin: General: Skin is warm and dry. Coloration: Skin is not jaundiced or pale. Neurological: General: No focal deficit present. Mental Status: She is alert. Motor: No weakness. Coordination: Coordination normal. Gait: Gait normal. Psychiatric: Mood and Affect: Mood normal. Behavior: Behavior normal. ASSESSMENT/PLAN: Diagnosis Plan 1. Recurrent carcinoma of endometrium (HCC) oxyCODONE (Roxicodone) 5 MG immediate release tablet LORazepam (Ativan) 1 MG tablet 2. 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) oxyCODONE (Roxicodone) 5 MG immediate release tablet 3. Anxiety associated with cancer diagnosis (HCC) oxyCODONE (Roxicodone) 5 MG immediate release tablet LORazepam (Ativan) 1 MG tablet Danny Pink is a 67 y.o. with recurrent endometrial cancer staus post radiation, interstitial brachytherapy and simple partial vaginectomy. Isolated vaginal recurrence s/p resection. Does not require systemic therapy as there is no evidence of metastatic disease on PET 08/2022. Repeat PET shows 1 cm nodule in the right upper lobe. Patient referred to Radiation. -Ran OARRS. Refilled oxycodone, ativan. May benefit from referral to palliative care. -Awaiting appointment from radiation. -Reviewed images on PET scan The patient had an opportunity to ask questions, all of which were answered to the best of my ability. She is in agreement with the above noted plan. I spent a total time of 25 minutes reviewing previous notes, test results, obtaining history, communicating results to the patient as well as counseling the patient, documenting clinical information in the patient's electronic medical record and coordinating care for the patient. Disclaimer: This note was dictated by speech recognition. I apologize for minor errors in wire threader which may be present. documented in this encounterSSalem City [id number] Telephone encounter Note* Telephone Encounter - Danny Sharma MD - 04/16/2023 11:51 AM EST I spoke with Danny. She is aware of the PET results and the plan for targeted radiation through 's office once he has a chance to review the images. [facility] [id number] Miscellaneous Notes* Telephone Encounter - Danny Sharma MD - 04/16/2023 11:51 AM EST I spoke with Danny. She is aware of the PET results and the plan for targeted radiation through 's office once he has a chance to review the images. * Telephone Encounter - Dixie Zamudio - 04/16/2023 10:24 AM EST LVM for ever to inform her that we are unable to send the imaging from pt's PET scan. I left radiology's number for pt to call to get images. Left our call back number if she has any questions. * Telephone Encounter - Kyle Mckinney - 04/16/2023 10:02 AM EST Ever calling from [facility] to return Dr. Quiñonez's call. States that Dr. Melendez won'tbe back until 04-22-2023. Requested for us to push the PET images to [facility], faxing the report now to [phone]. If there are any questions, please call back Ever at [phone] opt 6, thank you * Telephone Encounter - Danny Sharma MD - 04/15/2023 4:16 PM EST LM for patient to discuss PET scan. Case discussed with Dr. Mortensen. Plan for referral back to Dr. 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 LM for Dr. Melendez - anatoly is out of the office this week. documented in this [facility]12-27-2023 Telephone encounter Note* Telephone Encounter - Dixie Zamudio - 04/16/2023 10:24 AM EST LVM for ever to inform her that we are unable to send the imaging from pt's PET scan. I left radiology's number for pt to call to get images. Left our call back number if she has any questions. [facility] [id number] Telephone encounter Note* Telephone Encounter - Kylerebecca Mckinney - 04/16/2023 10:02 AM EST Ever calling from [facility] to return Dr. Quiñonez's call. States that Dr. Melendez won'tbe back until 04-22-2023. Requested for us to push the PET images to [facility], faxing the report now to [phone]. If there are any questions, please call back Ever at [phone] opt 6, thank you [facility] [id number] Telephone encounter Note* Telephone Encounter - Danny Sharma MD - 04/15/2023 4:16 PM EST LM for patient to discuss PET scan. Case discussed with Dr. Mortensen. Plan for referral back to Dr. 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 LM for Dr. Melendez - anatoly is out of the office this week. [place] [id number] Note* Addendum Note - MERRICK Dela Cruz CNP - 04/15/2023 11:20 AM ESTAddended by: MALINDA BOONE on: 04/15/2023 11:20 AM Modules accepted: Orders [id number] Telephone encounter Note* Telephone Encounter - MERRICK Dela Cruz CNP - 04/15/2023 11:20 AM EST Refilled Patient's prescription. OARRS report ran. [place] [id number] Miscellaneous Notes* Addendum Note - MERRICK Dela Cruz CNP - 04/15/2023 11:20 AM ESTAddended by: MALINDA BOONE on: 04/15/2023 11:20 AM Modules accepted: Orders * Telephone Encounter - MERRICK Dela Cruz CNP - 04/15/2023 11:20 AM EST Refilled Patient's prescription. OARRS report ran. * Telephone Encounter - Keyla Gilman - 04/15/2023 8:38 AM EST Pt mentioned that she would like her prescription refilled. The prescriptions are Oxycodone and Lorazepam. * Telephone Encounter - Dixie Zamudio - 04/04/2023 3:03 PM EST LVM informing pt oxycodone and ativan were sent to pt's pharmacy * Telephone Encounter - MERRICK Sanchez CNP - 04/04/2023 12:38 PM EST Refill Oxycodone and Ativan sent to pt's pharmacy per pt request. OARRS verified. documented in this [place] [id number] Telephone encounter Note* Telephone Encounter - Keyla Gilman - 04/15/2023 8:38 AM EST Pt mentioned that she would like her prescription refilled. The prescriptions are Oxycodone and Lorazepam. [place] [id number] Telephone encounter Note* Telephone Encounter - Dixie Zamudio - 04/04/2023 3:03 PM EST LVM informing pt oxycodone and ativan were sent to pt's pharmacy [id number] Miscellaneous Notes* Telephone Encounter - Dixie Zamudio - 04/04/2023 3:03 PM EST LVM informing pt oxycodone and ativan were sent to pt's pharmacy * Telephone Encounter - MERRICK Sanchez CNP - 04/04/2023 12:38 PM EST Refill Oxycodone and Ativan sent to pt's pharmacy per pt request. OARRS verified. documented in this [address]15-2023 Telephone encounter Note* Telephone Encounter - MERRICK Sanchez CNP - 04/04/2023 12:38 PM EST Refill Oxycodone and Ativan sent to pt's pharmacy per pt request. OARRS verified. [facility] [id number] Telephone encounter Note* Telephone Encounter - MERRICK Sanchez CNP - 03/26/2023 1:51 PM EST Spoke with patient and notified that her pharmacy is getting ready Oxycodone 5mg (take 2 tabs for total of 10mg). Pt has concern that her insurance is not covering oxycodone 5mg completely and it is costing her more than normal. Her pharmacy does not currently carry the 10mg so 5mg has to be prescribed. I offered to call a different pharmacy to see if they carried oxycodone 10 mg, patient declined at this time and will let us know in the future if she wants us to call different pharmacy. Sees Dr. Quiñonez in April and will discuss possible pain medication change if oxycodone 5 mg (take 2 tabs) is too expensive. Pt verbalized understanding, no further questions. OARRS verified. [facility] [id number] Miscellaneous Notes* Telephone Encounter - MERRICK Sanchez CNP - 03/26/2023 1:51 PM EST Spoke with patient and notified that her pharmacy is getting ready Oxycodone 5mg (take 2 tabs for total of 10mg). Pt has concern that her insurance is not covering oxycodone 5mg completely and it is costing her more than normal. Her pharmacy does not currently carry the 10mg so 5mg has to be prescribed. I offered to call a different pharmacy to see if they carried oxycodone 10 mg, patient declined at this time and will let us know in the future if she wants us to call different pharmacy. Sees Dr. Quiñonez in April and will discuss possible pain medication change if oxycodone 5 mg (take 2 tabs) is too expensive. Pt verbalized understanding, no further questions. OARRS verified. * Telephone Encounter - Kyle Mckinney - 03/26/2023 1:47 PM EST Patient calling back about the above situation. She would really like a call back as soon as possible, she would like to get this situated by today. Please call back when able, thank you * Telephone Encounter - Keyla Gilman - 03/26/2023 11:42 AM EST Patient called into the office. Patient mentioned that she got a call from the pharmacy letting herknow that her prescription of oxycodone is completed. Patient mentioned when she went to the pharmacy they mentioned to her that they could not understand the instructions. Patient mentioned that thepharmacy tried to call or fax over the prescription a couple days ago. Patient would like a call back for putting in the prescription for oxycodone. Patient would like a call back. Please advise * Telephone Encounter - MERRICK Sanchez CNP - 03/24/2023 11:15 AM EST OARRS report verified, Oxycodone and Ativan sent to pt's pharmacy per pt request. Symptoms well controlled. * Telephone Encounter - Kyle Mckinney - 03/24/2023 11:06 AM EST Patient calling requesting a refill be put in for oxycodone (has to be 5mg instead of 10mg because of the same issue as last time) and Lorazepam. Pharmacy on file works best. Thank you! best call back number, if need, is [phone] * Telephone Encounter - MERRICK Sanchez CNP - 03/17/2023 1:16 PM EST [facility] pharmacy called and they are out of oxycodone 10 mg. Will send in a new prescription for oxycodone 5 mg, take 2 tablets (10mg) at a time every 6 hours as needed. Left voicemail with instructions for patient. documented in this encounterSSalem City [id number] Telephone encounter Note* Telephone Encounter - Kyle Mckinney - 03/26/2023 1:47 PM EST Patient calling back about the above situation. She would really like a call back as soon as possible, she would like to get this situated by today. Please call back when able, thank you [facility] [id number] Telephone encounter Note* Telephone Encounter - Keyla Gilman - 03/26/2023 11:42 AM EST Patient called into the office. Patient mentioned that she got a call from the pharmacy letting herknow that her prescription of oxycodone is completed. Patient mentioned when she went to the pharmacy they mentioned to her that they could not understand the instructions. Patient mentioned that thepharmacy tried to call or fax over the prescription a couple days ago. Patient would like a call back for putting in the prescription for oxycodone. Patient would like a call back. Please advise [facility] [id number] Telephone encounter Note* Telephone Encounter - MERRICK Sanchez CNP - 03/24/2023 11:15 AM EST OARRS report verified, Oxycodone and Ativan sent to pt's pharmacy per pt request. Symptoms well controlled. [facility] [id number] Miscellaneous Notes* Telephone Encounter - MERRICK Sanchez CNP - 03/24/2023 11:15 AM EST OARRS report verified, Oxycodone and Ativan sent to pt's pharmacy per pt request. Symptoms well controlled. * Telephone Encounter - Kyle Mckinney - 03/24/2023 11:06 AM EST Patient calling requesting a refill be put in for oxycodone (has to be 5mg instead of 10mg because of the same issue as last time) and Lorazepam. Pharmacy on file works best. Thank you! best call back number, if need, is [phone] * Telephone Encounter - MERRICK Sanchez CNP - 03/17/2023 1:16 PM EST [facility] pharmacy called and they are out of oxycodone 10 mg. Will send in a new prescription for oxycodone 5 mg, take 2 tablets (10mg) at a time every 6 hours as needed. Left voicemail with instructions for patient. documented in this encounterSSalem City [id number] Telephone encounter Note* Telephone Encounter - Kyle Mckinney - 03/24/2023 11:06 AM EST Patient calling requesting a refill be put in for oxycodone (has to be 5mg instead of 10mg because of the same issue as last time) and Lorazepam. Pharmacy on file works best. Thank you! best call back number, if need, is [phone] [facility] [id number] Telephone encounter Note* Telephone Encounter - MERRICK Sanchez CNP - 03/17/2023 1:16 PM EST [facility] pharmacy called and they are out of oxycodone 10 mg. Will send in a new prescription for oxycodone 5 mg, take 2 tablets (10mg) at a time every 6 hours as needed. Left voicemail with instructions for patient. [place] [id number] Miscellaneous Notes* Telephone Encounter - MERRICK Sanchez CNP - 03/17/2023 1:16 PM EST [facility] pharmacy called and they are out of oxycodone 10 mg. Will send in a new prescription for oxycodone 5 mg, take 2 tablets (10mg) at a time every 6 hours as needed. Left voicemail with instructions for patient. documented in this [facility]11-27-2023 Telephone encounter Note* Telephone Encounter - MERRICK Sanchez CNP - 03/17/2023 12:59 PM EST Pt requested Oxycodone refill for cancer-related pain. OARRS verified, [address]ill submitted. [id number] Miscellaneous Notes* Telephone Encounter - MERRICK Sanchez CNP - 03/17/2023 12:59 PM EST Pt requested Oxycodone refill for cancer-related pain. OARRS verified, refill submitted. documented in this [facility]11-20-2023 Telephone encounter Note* Telephone Encounter - Faith Hurtado RN - 03/10/2023 1:20 PM EST Called pt and left VM that script was sent to [facility] with address. Pt to call back with any questions or concerns. [facility] [id number] Miscellaneous Notes* Telephone Encounter - Faith Hurtado RN - 03/10/2023 1:20 PM EST Called pt and left VM that script was sent to [facility] with address. Pt to call back with any questions or concerns. * Telephone Encounter - Keyla Gilman - 03/10/2023 12:13 PM EST Patient mentioned that the pharmacy didn't receive the oxycodone. Patient would like a call back * Addendum Note - MERRICK Dela Cruz CNP - 03/07/2023 11:42 AM ESTAddended by: MALINDA BOONE on: 03/07/2023 11:42 AM Modules accepted: Orders * Telephone Encounter - MERRICK Dela Cruz CNP - 03/07/2023 11:42 AM EST Refilled prescriptions to patient's pharmacy. OARRS report ran * Telephone Encounter - Kyle Mckinney - 03/07/2023 9:43 AM EST Patient calling requesting prescription refills for both Lorazepam and Oxycodone. [facility], thanks documented in this encounterSSalem City [id number] Telephone encounter Note* Telephone Encounter - Keyla Gilman - 03/10/2023 12:13 PM EST Patient mentioned that the pharmacy didn't receive the oxycodone. Patient would like a call back [address]17-2023 Note* Addendum Note - MERRICK Dela Cruz CNP - 03/07/2023 11:42 AM ESTAddended by: MALINDA BOONE on: 03/07/2023 11:42 AM Modules accepted: Orders [address]17-2023 Note* Addendum Note - MERRICK Dela Cruz CNP - 03/07/2023 11:42 AM ESTAddended by: MALINDA BOONE on: 03/07/2023 11:42 AM Modules accepted: Orders [address]17-2023 Note* Addendum Note - MERRICK Dela Cruz CNP - 03/07/2023 11:42 AM ESTAddended by: MALINDA BOONE on: 03/07/2023 11:42 AM Modules accepted: Orders [address]17-2023 Note* Addendum Note - MERRICK Dela Cruz CNP - 03/07/2023 11:42 AM ESTAddended by: MALINDA BOONE on: 03/07/2023 11:42 AM Modules accepted: Orders [address]17-2023 Telephone encounter Note* Telephone Encounter - MERRICK Dela Cruz CNP - 03/07/2023 11:42 AM EST Refilled prescriptions to patient's pharmacy. OARRS report ran [address]17-2023 Miscellaneous Notes* Addendum Note - MERRICK Dela Cruz CNP - 03/07/2023 11:42 AM ESTAddended by: MALINDA BOONE on: 03/07/2023 11:42 AM Modules accepted: Orders * Telephone Encounter - MERRICK Dela Cruz CNP - 03/07/2023 11:42 AM EST Refilled prescriptions to patient's pharmacy. OARRS report ran * Telephone Encounter - Kyle Mckinney - 03/07/2023 9:43 AM EST Patient calling requesting prescription refills for both Lorazepam and Oxycodone. [facility] pharmacy already on file, thanks documented in this encounterSSalem City [id number] Telephone encounter Note* Telephone Encounter - Kyle Mckinney - 03/07/2023 9:43 AM EST Patient calling requesting prescription refills for both Lorazepam and Oxycodone. [facility] pharmacy already on file, thanks [place] [id number] Telephone encounter Note* Telephone Encounter - Martita Vallejo RN - 03/05/2023 10:15 AM EST Have been unable to speak with patient. She left a voicemail wanting her port flush the same day asanother appointment. Left message for her to return call. [id number] Miscellaneous Notes* Telephone Encounter - Martita Vallejo RN - 03/05/2023 10:15 AM EST Have been unable to speak with patient. She left a voicemail wanting her port flush the same day asanother appointment. Left message for her to return call. * Telephone Encounter - Keyla Gilman - 02/25/2023 3:10 PM EST Patient would like a call back. Patient mentioned she is returning a call * Telephone Encounter - Martita Vallejo RN - 02/18/2023 10:22 AM EDT Left message on my chart and on patients answering machine to call to schedule a port flush. * Telephone Encounter - Martita Vallejo RN - 02/17/2023 8:32 AM EDT Left message for patient to call office to set up port flush. * Telephone Encounter - Martita Vallejo RN - 02/14/2023 2:54 PM EDT Left message for patient to call the office. * Telephone Encounter - Martita Vallejo RN - 02/13/2023 2:54 PM EDT Left message for patient to call the office. * Telephone Encounter - Martita Vallejo RN - 02/13/2023 2:42 PM EDT ----- Message from Danny Sharma MD sent at 02/13/2023 2:39 PM EDT ----- Hasn't had a port flush since she stopped Keytruda! Can we get her set up in [place]? Thanks! documented in this [facility]11-08-2023 History of Present illness Narrative* Godfrey Preston, DO - 02/26/2023 1:00 PM EST Images from the original note were not included. Subjective Patient ID: Danny Pink is a 67 y.o. female who presents for Wound Care. HPI Recheck vaginal wound. Feels it is less tender. Review of Systems Constitutional: Negative. Negative for chills, fatigue and fever. Respiratory: Negative. Cardiovascular: Negative. Skin: Positive for wound. Negative for color change (from typical for patient) and rash. Objective Vitals: 02/26/23 1313 BP: (!) 140/83 Pulse: 88 Resp: 18 Temp: 36.6 C (97.8 F) Physical Exam Vitals reviewed. Constitutional: General: She is not in acute distress. Appearance: Normal appearance. She is obese. She is not ill-appearing or toxic-appearing. HENT: Ears: Comments: Hearing to conversational voice is normal. Pulmonary: Effort: Pulmonary effort is normal. Breath sounds: No wheezing (No audible wheeze). Skin: General: Skin is warm and dry. Comments: Wound is improving. Less tender. Neurological: Mental Status: She is alert and oriented to person, place, and time. Psychiatric: Thought Content: Thought content normal. Assessment/Plan Wound Assessment: Wound/Incision 01/29/23 Radiation Vagina (Active) Wound Image 02/12/23 1119 Site Assessment [place];Red;Painful 01/29/23 1033 Wound Length (cm) 2 cm 01/29/23 1033 Wound Width (cm) 4 cm 01/29/23 1033 Wound Surface Area (cm^2) 8 cm^2 01/29/23 1033 Wound Depth (cm) 0.1 cm 01/29/23 1033 Wound Volume (cm^3) 0.8 cm^3 01/29/23 1033 Drainage Description Unable to assess 01/29/23 1033 Odor None 01/29/23 1033 Drainage Amount Unable to assess 01/29/23 1033 Treatments Cleansed 02/05/23 1131 Primary Dressing Collagen 02/05/23 1131 Dressing Status New dressing applied 02/05/23 1131 1. Vulvar ulcer 2. S/P radiation therapy 3. 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) Pt ed, reassure Continue collagen Recheck 2 wks, sooner prn Pt agrees with plan. documented in this [facility]11-08-2023 Hospital Discharge instructions* Patient Instructions* Merary Meier RN - 02/26/2023 1:00 PM EST Follow up in the wound center in 2 weeks Cleansing: Ok to shower, do not soak the wounds. No tub bathing Use antibacterial soap such as Dial to wash with May continue to rinse the area after using the bathroom with saline Wound Care Instructions: Ok to continue use of lidocaine as needed Collagen to the area twice a day Increase protein In your diet to promote wound healing Keep blood sugars under good control to assist with healing also documented in this [facility]11-07-2023 Telephone encounter Note* Telephone Encounter - Keyla Gilman - 02/25/2023 3:10 PM EST Patient would like a call back. Patient mentioned she is returning a call [facility] [id number] Miscellaneous Notes* Telephone Encounter - Keyla Gilman - 02/25/2023 3:10 PM EST Patient would like a call back. Patient mentioned she is returning a call * Telephone Encounter - Martita Vallejo RN - 02/18/2023 10:22 AM EDT Left message on my chart and on patients answering machine to call to schedule a port flush. * Telephone Encounter - Martita Vallejo RN - 02/17/2023 8:32 AM EDT Left message for patient to call office to set up port flush. * Telephone Encounter - Martita Vallejo RN - 02/14/2023 2:54 PM EDT Left message for patient to call the office. * Telephone Encounter - Martita Vallejo RN - 02/13/2023 2:54 PM EDT Left message for patient to call the office. * Telephone Encounter - Martita Vallejo RN - 02/13/2023 2:42 PM EDT ----- Message from Danny Sharma MD sent at 02/13/2023 2:39 PM EDT ----- Hasn't had a port flush since she stopped Keytruda! Can we get her set up in [place]? Thanks! documented in this encounterSSalem City [id number] Telephone encounter Note* Telephone Encounter - Martita Vallejo RN - 02/18/2023 10:22 AM EDT Left message on my chart and on patients answering machine to call to schedule a port flush. [facility] [id number] Telephone encounter Note* Telephone Encounter - Martita Vallejo RN - 02/17/2023 8:32 AM EDT Left message for patient to call office to set up port flush. [place] [id number] Telephone encounter Note* Telephone Encounter - Martita Vallejo RN - 02/14/2023 2:54 PM EDT Left message for patient to call the office. [place] [id number] Telephone encounter Note* Telephone Encounter - Akanksha Proctor - 02/13/2023 4:26 PM EDT Called patient to see where she wants to get PET done at. Left message to call office. [place] [id number] Miscellaneous Notes* Telephone Encounter - Akanksha Proctor - 02/13/2023 4:26 PM EDT Called patient to see where she wants to get PET done at. Left message to call office. documented in this encounterSSalem City [id number] Telephone encounter Note* Telephone Encounter - Martita Vallejo RN - 02/13/2023 2:54 PM EDT Left message for patient to call the office. [id number] Telephone encounter Note* Telephone Encounter - Martita Vallejo RN - 02/13/2023 2:42 PM EDT ----- Message from Danny Sharma MD sent at 02/13/2023 2:39 PM EDT ----- Hasn't had a port flush since she stopped Keytruda! Can we get her set up in [place]? Thanks! [facility] [id number] History of Present illness Narrative* Danny Vasquez MD - 02/13/2023 11:40 AM EDT Images from the original note were not included. Chief Complaint Patient presents with Endometrial Cancer HISTORY OF THE PRESENT ILLNESS: Danny Pink is a pleasant 67 y.o. female with recurrent endometrial cancer. She has a history of stage IB, FIGO grade 2 endometrioid endometrial adenocarcinoma, +LVSI, +washings, MMR protein testing normal. She underwent robotic endometrial cancer staging on 01/19/2018. Met diagnostic criteria for high-intermediate risk of recurrence. Completed pelvic radiation on 04/27/18. Unfortunately, the patient complained of new onset of back pain in September 2019. She underwent a computed tomography scan of the abdomen and pelvis which showed an enlarged left periaortic lymph node. PET scan confirmed that this was a focus of FDG avidity. There were no other sites of metastatic disease on the PET scan. Management options were discussed with the patient at length. We elected to proceed with an attempt at surgical resection. She underwent attempted robotic resection of the left periaortic lymph node on 12/09/2019. Unfortunately, there was evidence of extracapsular extension of disease and the lymph node was matted and densely adherent to the abdominal aorta. There is no way tocompletely surgically resect the disease. Biopsies were obtained confirming the diagnosis. Patient was started on systemic chemotherapy with carboplatin and paclitaxel. Patient completed cycle #6 carbo/taxol on 04/19/2020. She was on a reduced dose of Taxol 135 mg/m2 due to arthralgias and myalgias. 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 I recommended 3 additional cycles of chemotherapy. Completed #9 cycles of carbo/taxol. Overall, she tolerated chemotherapy well. She does have arthralgias and myalgias that are better tolerated on the reduced dose of Taxol. Repeat PET 08/25/2020: IMPRESSION: There has been significant improvement of intensity of FDG accumulation within a mildly enlarged left periaortic lymph node when compared to the study from 06/16/2020. On the current examination, the node demonstrates mild FDG accumulation. Attention to this area is recommended on subsequent examinations. There are no new areas of abnormal FDG accumulation seen to suggest progression of malignancy. We discussed treatment options - continued carbo/taxol versus hormonal therapy. We switched to tamoxifen/megace. Patient was unable to tolerate hormonal therapy. When she was seen in the office in November 2020 there was a new vaginal lesion. Biopsy confirmed recurrent endometrial cancer. The patientwas started on systemic chemotherapy with Keytruda and Lenvima. She was unable to tolerate Lenvima which was discontinued. She underwent a PET scan on 02/22/2021 to assess response to treatment which showed: IMPRESSION: There is fairly intense, abnormal FDG accumulation within a mildly enlarged left para-aortic lymph node, consistent with residual or recurrent malignancy. When compared to the examination dated 12/08/2020, both the size and intensity of FDG uptake within this node has increased. No new areas of abnormal FDG accumulation are identified. On examination, the periurethral lesion that was somewhat smaller in size. The decision was made tocontinue systemic immunotherapy with Keytruda and consider re-irradiation of the left periaortic lymph node. Received radiation therapy in [place] with Dr. Melendez. Treated from April 25 through May 29, 2021. Received 45 Gy to the periaortic lymph nodes with a simultaneous boost to 55 Gy to the gross disease. Overall, tolerated treatments well and was able to continue Keytruda during her radiation. Does have arthralgia/myalgias several days after Keytruda. Having a rash. Just on her face, happensabout 1 week after the Keytruda. Recurrent urinary tract infections after Keytruda. We are treatingwith prophylactic Bactrim following treatment. PET 08/20/2021: IMPRESSION: Previously identified FDG avid left para-aortic lymph node on the study from 02/22/2021 has decreased in size and intensity of FDG accumulation. No new FDG avid lymphadenopathy is seen within the abdomen or pelvis. There is a new focus of increased FDG uptake within the perineum in the expected location of the vaginal vault or near the vaginal cuff. The intensity of uptake is suspicious for residual or recurrent malignancy. Referred to radiation oncology for interstitial brachytherapy at [facility]. Underwent treatment 12/2021. Post treatment reported blisters on the labia that were painful with drainage. Moist desquamation. Decided to discontinue Keytruda. MRI 04/17/2022: FINDINGS: Uterus: The uterus is surgically absent. The previously seen focus of signal abnormality with abnormal enhancement or restricted diffusion along the posterior wall of the vagina is present, with resolution of the previously seen restricted diffusion and abnormal enhancement. No new pelvic masses identified. Adnexa: No adnexal mass. Neither ovary is identified Free fluid: none identified Lymphadenopathy: none identified Other soft tissue structures: No other abnormality identified Osseous structures: Normal IMPRESSION: Resolution of the previously seen mass along the posterior wall of the vagina. No new pelvic mass. PET 04/25/2022: IMPRESSION: There has been significant improvement of the previously noted area of abnormal FDG accumulation inthe expected location of the vagina or vaginal cuff on the study from 09/07/2021. On the current examination, there is a small area of moderate FDG accumulation at the left margin of the vaginal cuff.This could reflect inflammation following radiation therapy, however a small area of residual or recurrent malignancy cannot be excluded. Continued follow-up is recommended. Borderline enlarged left paratracheal lymph node demonstrate mild to moderate FDG accumulation, unchanged in size and intensity of FDG accumulation when compared to the study from 09/07/2021. No new FDG avid lymphadenopathy or other mass is seen within the abdomen or pelvis. On exam there was an exophytic lesion in the mid-vagina. Biopsy confirmed persistent endometrial cancer. Patient was taken for simple partial vaginectomy 05/2022. Pathology confirmed malignancy, negative margins. Interval History: Patient presents to the office today for surveillance. Taken to the OR for simple partial vulvectomy (removal of right labia minora) and simple partial vaginectomy on 08/19/2022. Final pathology showed: Component Final Diagnosis A. VAGINA, PARTIAL VAGINECTOMY-FIBROMUSCULAR TISSUE, FOCALLY IN POSITIVE FOR POORLY DIFFERENTIATED CARCINOMA, COMPATIBLE WITH PATIENT'S HISTORY OF RECURRENT M LLERIAN ADENOCARCINOMA Comment: Most of the specimen is composed of benign fibromuscular tissue. Focally, there is a proliferation of markedly atypical epithelial cells. Immunohistochemical stains for pankeratin are diffusely positive and ER immunostains show weak, patchy positivity. While nonspecific, the histologic changes and immunohistochemical findings would be compatible with the patient's known recurrent poorly differentiated carcinoma in this area. B. LEFT LABIA, EXCISION-SKIN AND UNDERLYING SOFT TISSUES WITH HYPERKERATOSIS, EDEMA, FOCAL ACUTE AND CHRONIC INFLAMMATION, AND REACTIVE CHANGES PET scan 09/09/2022: IMPRESSION: Impression: No convincing evidence of residual malignancy. Follow-up recommended. Still having a lot of vulvar pain. Has soreness of the vulva and bleeding. Referred to wound clinic. Trial collagen BID to the area with saline cleanses. Not helping at all with the pain. Still very tender. Difficult for her to sit. Needs to be set up for port flushes. Past Medical History: Diagnosis Date Anemia LOW IRON DUE TO BLEEDING Asthma Cerebral artery occlusion with cerebral infarction (HCC) Diabetes (HCC) Endometrial adenocarcinoma (CMS/HCC) (HCC) FIGO GRADE 2 GERD (gastroesophageal reflux disease) Glaucoma 2014 Hx of blood clots Mini stroke 2013 Thrombotic. Affected short term memory, had to relearn things, locations. Past Surgical History: Procedure Laterality Date CATARACT EXTRACTION W/ INTRAOCULAR LENS IMPLANT Right 07/09/2021 SECTION (HISTORICAL) x2. Pfannenstiel incisions. COLONOSCOPY DILATION AND CURETTAGE OF UTERUS 12/19/2017 Dr Brittny [facility] ENDOMETRIAL BIOPSY IR CVC MEDIPORT PLACEMENT OTHER SURGICAL HISTORY 12/09/2019 Robotic Fe-Aortic Biopsy TONSILLECTOMY (HISTORICAL) TOTAL ABDOMINAL HYSTERECTOMY 01/19/2018 Robotic hysterectomy, BSO, right pelvic sentinel LNB, left pelvic lymphadenectomy-Dr. Khang Tapia [facility] TUBAL LIGATION UPPER GASTROINTESTINAL ENDOSCOPY Family History Problem Relation Name Age of Onset Breast cancer Mother 90 Ovarian cancer Neg Hx Colon cancer Neg Hx Uterine cancer Neg Hx Social History Socioeconomic History Marital status: Spouse name: Not on file Number of children: Not on file Years of education: Not on file Highest education level: Not on file Occupational History Not on file Tobacco Use Smoking status: Former Packs/day: 1.5 Types: Cigarettes Quit date: 01/12/2003 Years since quittin.1 Smokeless tobacco: Never Vaping Use Vaping Use: Never used Substance and Sexual Activity Alcohol use: Yes Comment: socially Drug use: No Sexual activity: Not Currently control/protection: Surgical Comment: hysterectomy Other Topics Concern Not on file Social History Narrative Not on file Social Determinants of Health Financial Resource Strain: Not on file Food Insecurity: Not on file Transportation Needs: Not on file Physical Activity: Not on file Stress: Not on file Social Connections: Not on file Intimate Partner Violence: Not At Risk (05/30/2022) Humiliation, Afraid, Rape, and Kick questionnaire Fear of Current or Ex-Partner: No Emotionally Abused: No Physically Abused: No Sexually Abused: No Housing Stability: Not on file Current Outpatient Medications on File Prior to Visit Medication Sig Dispense Refill acetaminophen (Tylenol) 500 MG tablet Take 1,000 mg by mouth every 6 hours as needed. albuterol 108 (90 Base) MCG/ACT inhaler Inhale 90 each if needed. aspirin 81 MG chewable tablet Chew 81 mg daily. bacitracin 500 UNIT/GM ointment Apply topically 2 times daily. 28.4 g 0 bisacodyl (Dulcolax) 5 MG EC tablet Take 10 mg by mouth if needed. brimonidine (AlphaGAN P) 0.2 % ophthalmic solution Administer 0.2 drops into both eyes if needed. calcium carbonate (Os-Papito) 1250 (500 Ca) MG chewable tablet Chew 1 tablet if needed. cholecalciferol (Vitamin D-3) 50 MCG (2000 UT) capsule Take 1 capsule (50 mcg) by mouth in the morning. 30 capsule 2 dicyclomine (Bentyl) 10 MG capsule Take 10 mg by mouth if needed. gabapentin (Neurontin) 300 MG capsule Take 1 capsule (300 mg) by mouth Nightly. 90 capsule 1 glimepiride (Amaryl) 4 MG tablet Take 4 mg by mouth daily. ibuprofen 800 MG tablet Take 1 tablet (800 mg) by mouth every 8 hours as needed for mild pain (1-3)or moderate pain (4-6). 60 tablet 0 latanoprost (Xalatan) 0.005 % ophthalmic solution Administer 0.005 drops into both eyes daily. lidocaine (Xylocaine) 5 % ointment Apply topically 2 times daily. 50 g 3 lisinopril 10 MG tablet Take 1 tablet by mouth in the morning. metFORMIN XR (Glucophage-XR) 500 MG 24 hr tablet Take 500 mg by mouth in the morning and 500 mg in the evening. Miconazole Nitrate 4 % cream Insert 1 Application into the vagina 2 times daily as needed (itching). 25 g 0 Misc. Devices (Sitz Bath) misc Use for pain relief as needed 1 each 0 Misc. Devices (Collins Bottle/Plastic 120mL) misc Use to clean area as needed 1 each 0 naloxone (Narcan) 4 mg/0.1 mL nasal spray Administer 4 mg into affected nostril(s) if needed. ondansetron (Zofran) 8 MG tablet Take 8 mg by mouth if needed. pantoprazole (ProtoNix) 40 MG EC tablet Take 40 mg by mouth if needed. prochlorperazine (Compazine) 10 MG tablet Take 1 tablet (10 mg) by mouth every 8 hours as needed for nausea or vomiting. 120 tablet 3 sennosides (Senokot) 8.6 MG tablet Take 8.6 mg by mouth in the morning and 8.6 mg in the evening. silver sulfADIAZINE (Silvadene) 1 % cream Apply 1 application. topically 2 times daily. 85 g 1 sucralfate (Carafate) 1 GM/10ML suspension Take 1 g by mouth if needed. [DISCONTINUED] oxyCODONE (Roxicodone) 10 MG immediate release tablet Take 1 tablet (10 mg) by mouthevery 6 hours as needed for severe pain (7-10) for up to 28 days. 112 tablet 0 [DISCONTINUED] traZODone (Desyrel) 100 MG tablet Take 1 tablet (100 mg) by mouth Nightly. 30 tablet3 sertraline (Zoloft) 100 MG tablet Take 1 tablet (100 mg) by mouth daily. (Patient taking differently: Take 100 mg by mouth Nightly.) 90 tablet 1 Symbicort 160-4.5 MCG/ACT inhaler Inhale 160 puffs if needed. [DISCONTINUED] LORazepam (Ativan) 1 MG tablet Take 1 tablet (1 mg) by mouth every 8 hours as neededfor anxiety for up to 10 days. 30 tablet 0 No current facility-administered medications on file prior to visit. Allergies as of 02/13/2023 - Reviewed 02/13/2023 Allergen Reaction Noted Morphine Anaphylaxis 02/01/2022 Codeine Rash 02/01/2022 Review of Systems A 12 point review of systems was performed and is as per the history of the present illness, all other systems were reviewed and are negative. Vitals: 02/13/23 1130 BP: (!) 155/88 Body mass index is 39.93 kg/m . Physical Exam Vitals reviewed. Constitutional: General: She is not in acute distress. Appearance: Normal appearance. She is not ill-appearing, toxic-appearing or diaphoretic. HENT: Head: Normocephalic and atraumatic. Eyes: General: No scleral icterus. Extraocular Movements: Extraocular movements intact. Cardiovascular: Rate and Rhythm: Normal rate. Pulmonary: Effort: Pulmonary effort is normal. No respiratory distress. Genitourinary: Urethra: No prolapse, urethral pain, urethral swelling or urethral lesion. Vagina: Normal. Uterus: Absent. Comments: There are two ulcerative lesions noted as above in green. 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 The lesion on the medial aspect of the left labia minora is more prominent, several cm in length and width. Fibrinous exudative material at the base. There are no new lesions in the vagina concerning for malignancy. There are more prominent changes related to radiation involving the anterior vagina. There appears to be chronic irritation in the distal vagina more notable in the suburethral area. It is not firm nor friable on exam or palpation. There is some increased vascularity involving the posterior distal vagina that looks more consistent with radiation changes. This is flush with the surrounding tissue and does not appear consistent with malignancy. Musculoskeletal: Right lower leg: No edema. Left lower leg: No edema. Skin: General: Skin is warm and dry. Coloration: Skin is not jaundiced or pale. Neurological: General: No focal deficit present. Mental Status: She is alert. Motor: No weakness. Coordination: Coordination normal. Gait: Gait normal. Psychiatric: Mood and Affect: Mood normal. Behavior: Behavior normal. ASSESSMENT/PLAN: Diagnosis Plan 1. Recurrent carcinoma of endometrium (HCC) LORazepam (Ativan) 1 MG tablet PET/CT skull base to mid thigh 2. 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 Vulvar irritation triamcinolone (Kenalog) 0.1 % ointment 4. Vulvar ulcer 5. Cancer associated pain oxyCODONE (Roxicodone) 10 MG immediate release tablet 6. S/P radiation therapy PET/CT skull base to mid thigh 7. Anxiety associated with cancer diagnosis (HCC) LORazepam (Ativan) 1 MG tablet 8. Endometrial cancer (CMS/HCC) (HCC) traZODone (Desyrel) 100 MG tablet Danny Pink is a 67 y.o. with recurrent endometrial cancer status post radiation, interstitial brachytherapy and simple partial vaginectomy. Isolated vaginal recurrence s/p resection. Does not require systemic therapy as there is no evidence of metastatic disease on PET 08/2022. Due for repeat imaging to assess for other sites of recurrent disease. Referral to wound clinic. Currently on topical therapy with patient reported minimal improvement inpain. There are still areas of chronic non-healing which I suspect are due to radiation at this site. She may also be a candidate for hyperbaric oxygen. Appreciate their recommendations. Ran OARRS. Refilled oxycodone, ativan, trazodone. Topical steroids for hemorrhoids. Follow up in 1 month. The patient had an opportunity to ask questions, all of which were answered to the best of my ability. She is in agreement with the above noted plan. I spent a total time of 25 minutes reviewing previous notes, test results, obtaining history, communicating results to the patient as well as counseling the patient, documenting clinical information in the patient's electronic medical record and coordinating care for the patient. Disclaimer: This note was dictated by speech recognition. I apologize for minor errors in wire threader which may be present. documented in this [facility]10-25-2023 History of Present illness Narrative* Godfrey Preston, - 02/12/2023 11:15 AM EDT Images from the original note were not included. Subjective Patient ID: Danny Pink is a 67 y.o. female who presents for Wound Care. HPI Recheck vaginal wound. Feels it is minimally improving. Still very tender. Review of Systems Constitutional: Negative. Negative for chills, fatigue and fever. Respiratory: Negative. Cardiovascular: Negative. Skin: Positive for wound. Negative for color change (from typical for patient) and rash. Objective Vitals: 02/12/23 1118 BP: (!) 166/94 Pulse: 92 Resp: 18 Temp: 36.6 C (97.8 F) Physical Exam Vitals reviewed. Constitutional: General: She is not in acute distress. Appearance: Normal appearance. She is obese. She is not ill-appearing or toxic-appearing. HENT: Ears: Comments: Hearing to conversational voice is normal. Pulmonary: Effort: Pulmonary effort is normal. Breath sounds: No wheezing (No audible wheeze). Skin: General: Skin is warm and dry. Comments: Wound is resolving. Still very tender. Neurological: Mental Status: She is alert and oriented to person, place, and time. Psychiatric: Thought Content: Thought content normal. Assessment/Plan Wound Assessment: Wound/Incision 01/29/23 Radiation Vagina (Active) Wound Image 02/12/23 1119 Site Assessment [place];Red;Painful 01/29/23 1033 Wound Length (cm) 2 cm 01/29/23 1033 Wound Width (cm) 4 cm 01/29/23 1033 Wound Surface Area (cm^2) 8 cm^2 01/29/23 1033 Wound Depth (cm) 0.1 cm 01/29/23 1033 Wound Volume (cm^3) 0.8 cm^3 01/29/23 1033 Drainage Description Unable to assess 01/29/23 1033 Odor None 01/29/23 1033 Drainage Amount Unable to assess 01/29/23 1033 Treatments Cleansed 02/05/23 1131 Primary Dressing Collagen 02/05/23 1131 Dressing Status New dressing applied 02/05/23 1131 1. S/P radiation therapy 2. Vulvar ulcer 3. 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) Pt ed, reassure Continue collagen Recheck 2 wks, sooner prn Pt agrees with plan. documented in this [facility]10-25-2023 Hospital Discharge instructions* Patient Instructions* Merary Meier RN - 02/12/2023 11:15 AM EDT Follow up in the wound center in 2 weeks Cleansing: Ok to shower, do not soak the wounds. No tub bathing Use antibacterial soap such as Dial to wash with May continue to rinse the area after using the bathroom with saline Wound Care Instructions: Ok to continue use of lidocaine as needed Collagen to the area twice a day Increase protein In your diet to promote wound healing Keep blood sugars under good control to assist with healing also documented in this [facility]10-18-2023 Hospital Discharge instructions* Patient Instructions* Merary Meier RN - 02/05/2023 10:45 AM EDT Follow up in the wound center in 1 week Cleansing: Ok to shower, do not soak the wounds. No tub bathing Use antibacterial soap such as Dial to wash with May continue to rinse the area after using the bathroom with saline Wound Care Instructions: Ok to continue use of lidocaine as needed Collagen to the area twice a day Increase protein In your diet to promote wound healing Keep blood sugars under good control to assist with healing also documented in this [facility]10-12-2023 Telephone encounter Note* Telephone Encounter - MERRICK Sanchez CNP - 01/30/2023 12:35 PM EDT OARRS report verified, Ativan and Xylocaine refill completed for patient request. [id number] Miscellaneous Notes* Telephone Encounter - MERRICK Sanchez CNP - 01/30/2023 12:35 PM EDT OARRS report verified, Ativan and Xylocaine refill completed for patient request. * Telephone Encounter - Keyla Gilman - 01/30/2023 12:22 PM EDT Patient would like her prescriptions refilled. The prescriptions are Lorazepam and lidocaine 5%. [id number] Telephone encounter Note* Telephone Encounter - Keyla Gilman - 01/30/2023 12:22 PM EDT Patient would like her prescriptions refilled. The prescriptions are Lorazepam and lidocaine 5%. [id number] History of Present illness Narrative* Godfrey Preston, - 01/29/2023 10:00 AM EDT Images from the original note were not included. Wound Care Visit - New Patient Progress Note CHIEF COMPLAINT/HISTORY OF PRESENT ILLNESS: The patient is a 67 y.o. female with history of endometrial cancer. States she is doing well, in remission. Had vaginal area lesions, which have resolved, except for one small area L inner labial fold. Had been using silvadene cream. States wound remains very tender. States she had no radiation therapy. States she currently on no chemotherapy. Past Medical History: Past Medical History: Diagnosis Date Anemia LOW IRON DUE TO BLEEDING Asthma Cerebral artery occlusion with cerebral infarction (HCC) Diabetes (HCC) Endometrial adenocarcinoma (CMS/HCC) (HCC) FIGO GRADE 2 GERD (gastroesophageal reflux disease) Glaucoma 2014 Hx of blood clots Mini stroke 2014 Thrombotic. Affected short term memory, had to relearn things, locations. Past Surgical History: Past Surgical History: Procedure Laterality Date CATARACT EXTRACTION W/ INTRAOCULAR LENS IMPLANT Right 07/09/2021 SECTION (HISTORICAL) x2. Pfannenstiel incisions. COLONOSCOPY DILATION AND CURETTAGE OF UTERUS 12/19/2017 Dr Brittny [facility] ENDOMETRIAL BIOPSY IR CVC MEDIPORT PLACEMENT OTHER SURGICAL HISTORY 12/09/2019 Robotic Fe-Aortic Biopsy TONSILLECTOMY (HISTORICAL) TOTAL ABDOMINAL HYSTERECTOMY 01/19/2018 Robotic hysterectomy, BSO, right pelvic sentinel LNB, left pelvic lymphadenectomy-Dr. Khang Tapia [facility] TUBAL LIGATION UPPER GASTROINTESTINAL ENDOSCOPY Current Medications: Current Outpatient Medications: acetaminophen (Tylenol) 500 MG tablet, Take 1,000 mg by mouth every 6 hours as needed., Disp: , Rfl: albuterol 108 (90 Base) MCG/ACT inhaler, Inhale 90 each if needed., Disp: , Rfl: aspirin 81 MG chewable tablet, Chew 81 mg daily., Disp: , Rfl: bacitracin 500 UNIT/GM ointment, Apply topically 2 times daily., Disp: 28.4 g, Rfl: 0 bisacodyl (Dulcolax) 5 MG EC tablet, Take 10 mg by mouth if needed., Disp: , Rfl: brimonidine (AlphaGAN P) 0.2 % ophthalmic solution, Administer 0.2 drops into both eyes if needed.,Disp: , Rfl: calcium carbonate (Os-Papito) 1250 (500 Ca) MG chewable tablet, Chew 1 tablet if needed., Disp: , Rfl: cholecalciferol (Vitamin D-3) 50 MCG (2000 UT) capsule, Take 1 capsule (50 mcg) by mouth in the morning., Disp: 30 capsule, Rfl: 2 dicyclomine (Bentyl) 10 MG capsule, Take 10 mg by mouth if needed., Disp: , Rfl: gabapentin (Neurontin) 300 MG capsule, Take 1 capsule (300 mg) by mouth Nightly., Disp: 90 capsule,Rfl: 1 glimepiride (Amaryl) 4 MG tablet, Take 4 mg by mouth daily., Disp: , Rfl: ibuprofen 800 MG tablet, Take 1 tablet (800 mg) by mouth every 8 hours as needed for mild pain (1-3) or moderate pain (4-6)., Disp: 60 tablet, Rfl: 0 latanoprost (Xalatan) 0.005 % ophthalmic solution, Administer 0.005 drops into both eyes daily., Disp: , Rfl: lidocaine (Xylocaine) 5 % ointment, Apply topically 2 times daily., Disp: 50 g, Rfl: 3 lisinopril 10 MG tablet, Take 1 tablet by mouth in the morning., Disp: , Rfl: metFORMIN XR (Glucophage-XR) 500 MG 24 hr tablet, Take 500 mg by mouth in the morning and 500 mg inthe evening., Disp: , Rfl: Miconazole Nitrate 4 % cream, Insert 1 Application into the vagina 2 times daily as needed (itching)., Disp: 25 g, Rfl: 0 Misc. Devices (Sitz Bath) misc, Use for pain relief as needed, Disp: 1 each, Rfl: 0 Misc. Devices (Collins Bottle/Plastic 120mL) misc, Use to clean area as needed, Disp: 1 each, Rfl: 0 naloxone (Narcan) 4 mg/0.1 mL nasal spray, Administer 4 mg into affected nostril(s) if needed., Disp: , Rfl: ondansetron (Zofran) 8 MG tablet, Take 8 mg by mouth if needed., Disp: , Rfl: oxyCODONE (Roxicodone) 10 MG immediate release tablet, Take 1 tablet (10 mg) by mouth every 6 hoursas needed for severe pain (7-10) for up to 28 days., Disp: 112 tablet, Rfl: 0 pantoprazole (ProtoNix) 40 MG EC tablet, Take 40 mg by mouth if needed., Disp: , Rfl: prochlorperazine (Compazine) 10 MG tablet, Take 1 tablet (10 mg) by mouth every 8 hours as needed for nausea or vomiting., Disp: 120 tablet, Rfl: 3 sennosides (Senokot) 8.6 MG tablet, Take 8.6 mg by mouth in the morning and 8.6 mg in the evening.,Disp: , Rfl: silver sulfADIAZINE (Silvadene) 1 % cream, Apply 1 application. topically 2 times daily., Disp: 85 g, Rfl: 1 sucralfate (Carafate) 1 GM/10ML suspension, Take 1 g by mouth if needed., Disp: , Rfl: Symbicort 160-4.5 MCG/ACT inhaler, Inhale 160 puffs if needed., Disp: , Rfl: traZODone (Desyrel) 100 MG tablet, Take 1 tablet (100 mg) by mouth Nightly., Disp: 30 tablet, Rfl: 3 LORazepam (Ativan) 1 MG tablet, Take 1 tablet (1 mg) by mouth every 8 hours as needed for anxiety for up to 10 days., Disp: 30 tablet, Rfl: 0 sertraline (Zoloft) 100 MG tablet, Take 1 tablet (100 mg) by mouth daily. (Patient taking differently: Take 100 mg by mouth Nightly.), Disp: 90 tablet, Rfl: 1 Allergies: Allergies Allergen Reactions Morphine Anaphylaxis Codeine Rash Social History: Social History Socioeconomic History Marital status: Spouse name: Not on file Number of children: Not on file Years of education: Not on file Highest education level: Not on file Occupational History Not on file Tobacco Use Smoking status: Former Packs/day: 1.5 Types: Cigarettes Quit date: 01/12/2003 Years since quittin.0 Smokeless tobacco: Never Vaping Use Vaping Use: Never used Substance and Sexual Activity Alcohol use: Yes Comment: socially Drug use: No Sexual activity: Not Currently control/protection: Surgical Comment: hysterectomy Other Topics Concern Not on file Social History Narrative Not on file Social Determinants of Health Financial Resource Strain: Not on file Food Insecurity: Not on file Transportation Needs: Not on file Physical Activity: Not on file Stress: Not on file Social Connections: Not on file Intimate Partner Violence: Not At Risk (05/30/2022) Humiliation, Afraid, Rape, and Kick questionnaire Fear of Current or Ex-Partner: No Emotionally Abused: No Physically Abused: No Sexually Abused: No Housing Stability: Not on file Family History: Family History Problem Relation Name Age of Onset Breast cancer Neg Hx Ovarian cancer Neg Hx Colon cancer Neg Hx Uterine cancer Neg Hx REVIEW OF SYSTEMS: Review of Systems Constitutional: Negative. Negative for chills, fatigue (no unusual fatigue) and fever. See PHI/PMH Respiratory: Negative. Cardiovascular: Negative. Skin: Positive for wound. Negative for color change (from typical for patient) and rash (no local irritation or redness). PHYSICAL EXAM: Physical Exam Vitals reviewed. Constitutional: General: She is not in acute distress. Appearance: Normal appearance. She is obese. HENT: Ears: Comments: Hearing to conversational voice is normal. Pulmonary: Effort: Pulmonary effort is normal. Breath sounds: No wheezing (no audible wheeze). Skin: General: Skin is warm and dry. Findings: Wound present. No ecchymosis, erythema (no periwound erythema) or rash (no visible rash or local irritatiion). Nails: There is no clubbing. Comments: Wound is small, very tender. Little central slough. Periwound intact. Does not appear cellulitic. Neurological: Mental Status: She is alert and oriented to person, place, and time. Psychiatric: Mood and Affect: Mood normal. Behavior: Behavior normal. Vitals: BP 137/82 Pulse 87 Temp 37.1 C (98.8 F) Resp 20 Wound/Incision 05/30/22 Surgical Groin (Active) Wound/Incision 08/19/22 Incision Labia (Active) Wound/Incision 01/29/23 Radiation Perineum (Active) Wound Image 01/29/231032 Site Assessment [place];Red;Painful 01/29/231032 Wound Length (cm) 2 cm 01/29/231032 Wound Width (cm) 4 cm 01/29/231032 Wound Surface Area (cm^2) 8 cm^2 01/29/231032 Wound Depth (cm) 0.1 cm 01/29/231032 Wound Volume (cm^3) 0.8 cm^3 01/29/231032 Drainage Description Unable to assess 01/29/231032 Odor None 01/29/231032 Drainage Amount Unable to assess 01/29/231032 1. Type 2 diabetes mellitus with other skin ulcer (CODE) ([facility]) 2. Recurrent carcinoma of endometrium (HCC) 3. S/P radiation therapy 4. Vulvar ulcer Pt ed, reassure Trial of collagen bid to area, since it is mucous membrane. Saline cleanses Reviewed protein/nutrition Reviewed sugar control Reviewed activity Recheck one wk, sooner prn Pt agrees with plan . PLAN: Patient examined and evaluated. Patient understands all that has been explained and wishes to proceed with current treatment. Patient understands all risks, benefits, procedures, fe- operative management, and possible complications. All questions answered and no guarantees made or implied. Treatment: Orders Placed This Encounter Procedures Ambulatory referral to Wound Clinic Standing Status: Standing Number of Occurrences: 1 Referral Priority: Routine Referral Type: Consultation Referral Reason: Specialty Services Required Requested Specialty: Wound Care Number of Visits Requested: 1 Please see attached Discharge Instructions documented in this [facility]10-11-2023 Hospital Discharge instructions* Patient Instructions* Wanda Wilson RN - 01/29/2023 10:00 AM EDT Follow up in the wound center in 1 week Cleansing: Ok to shower, do not soak the wounds. No tub bathing Use antibacterial soap such as Dial to wash with May continue to rinse the area after using the bathroom with saline Wound Care Instructions: Ok to continue use of lidocaine as needed Collagen to the area twice a day Increase protein In your diet to promote wound healing Keep blood sugars under good control to assist with healing also documented in this [facility]09-28-2023 History of Present illness Narrative* Danny Sharma MD - 01/16/2023 11:40 AM EDT Images from the original note were not included. Chief Complaint Patient presents with Endometrial Cancer 1 month follow up Pt complains of soreness HISTORY OF THE PRESENT ILLNESS: Danny Pink is a pleasant 67 y.o. female with recurrent endometrial cancer. She has a history of stage IB, FIGO grade 2 endometrioid endometrial adenocarcinoma, +LVSI, +washings, MMR protein testing normal. She underwent robotic endometrial cancer staging on 01/19/2018. Met diagnostic criteria for high-intermediate risk of recurrence. Completed pelvic radiation on 04/27/18. Unfortunately, the patient complained of new onset of back pain in September 2019. She underwent a computed tomography scan of the abdomen and pelvis which showed an enlarged left periaortic lymph node. PET scan confirmed that this was a focus of FDG avidity. There were no other sites of metastatic disease on the PET scan. Management options were discussed with the patient at length. We elected to proceed with an attempt at surgical resection. She underwent attempted robotic resection of the left periaortic lymph node on 12/09/2019. Unfortunately, there was evidence of extracapsular extension of disease and the lymph node was matted and densely adherent to the abdominal aorta. There is no way tocompletely surgically resect the disease. Biopsies were obtained confirming the diagnosis. Patient was started on systemic chemotherapy with carboplatin and paclitaxel. Patient completed cycle #6 carbo/taxol on 04/19/2020. She was on a reduced dose of Taxol 135 mg/m2 due to arthralgias and myalgias. 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 I recommended 3 additional cycles of chemotherapy. Completed #9 cycles of carbo/taxol. Overall, she tolerated chemotherapy well. She does have arthralgias and myalgias that are better tolerated on the reduced dose of Taxol. Repeat PET 08/25/2020: IMPRESSION: There has been significant improvement of intensity of FDG accumulation within a mildly enlarged left periaortic lymph node when compared to the study from 06/16/2020. On the current examination, the node demonstrates mild FDG accumulation. Attention to this area is recommended on subsequent examinations. There are no new areas of abnormal FDG accumulation seen to suggest progression of malignancy. We discussed treatment options - continued carbo/taxol versus hormonal therapy. We switched to tamoxifen/megace. Patient was unable to tolerate hormonal therapy. When she was seen in the office in November 2020 there was a new vaginal lesion. Biopsy confirmed recurrent endometrial cancer. The patientwas started on systemic chemotherapy with Keytruda and Lenvima. She was unable to tolerate Lenvima which was discontinued. She underwent a PET scan on 02/22/2021 to assess response to treatment which showed: IMPRESSION: There is fairly intense, abnormal FDG accumulation within a mildly enlarged left para-aortic lymph node, consistent with residual or recurrent malignancy. When compared to the examination dated 12/08/2020, both the size and intensity of FDG uptake within this node has increased. No new areas of abnormal FDG accumulation are identified. On examination, the periurethral lesion that was somewhat smaller in size. The decision was made tocontinue systemic immunotherapy with Keytruda and consider re-irradiation of the left periaortic lymph node. Received radiation therapy in [place] with Dr. Melendez. Treated from April 25 through May 29, 2021. Received 45 Gy to the periaortic lymph nodes with a simultaneous boost to 55 Gy to the gross disease. Overall, tolerated treatments well and was able to continue Keytruda during her radiation. Does have arthralgia/myalgias several days after Keytruda. Having a rash. Just on her face, happensabout 1 week after the Keytruda. Recurrent urinary tract infections after Keytruda. We are treatingwith prophylactic Bactrim following treatment. PET 08/20/2021: IMPRESSION: Previously identified FDG avid left para-aortic lymph node on the study from 02/22/2021 has decreased in size and intensity of FDG accumulation. No new FDG avid lymphadenopathy is seen within the abdomen or pelvis. There is a new focus of increased FDG uptake within the perineum in the expected location of the vaginal vault or near the vaginal cuff. The intensity of uptake is suspicious for residual or recurrent malignancy. Referred to radiation oncology for interstitial brachytherapy at [facility]. Underwent treatment 12/2021. Post treatment reported blisters on the labia that were painful with drainage. Moist desquamation. Decided to discontinue Keytruda. MRI 04/17/2022: FINDINGS: Uterus: The uterus is surgically absent. The previously seen focus of signal abnormality with abnormal enhancement or restricted diffusion along the posterior wall of the vagina is present, with resolution of the previously seen restricted diffusion and abnormal enhancement. No new pelvic masses identified. Adnexa: No adnexal mass. Neither ovary is identified Free fluid: none identified Lymphadenopathy: none identified Other soft tissue structures: No other abnormality identified Osseous structures: Normal IMPRESSION: Resolution of the previously seen mass along the posterior wall of the vagina. No new pelvic mass. PET 04/25/2022: IMPRESSION: There has been significant improvement of the previously noted area of abnormal FDG accumulation inthe expected location of the vagina or vaginal cuff on the study from 09/07/2021. On the current examination, there is a small area of moderate FDG accumulation at the left margin of the vaginal cuff.This could reflect inflammation following radiation therapy, however a small area of residual or recurrent malignancy cannot be excluded. Continued follow-up is recommended. Borderline enlarged left paratracheal lymph node demonstrate mild to moderate FDG accumulation, unchanged in size and intensity of FDG accumulation when compared to the study from 09/07/2021. No new FDG avid lymphadenopathy or other mass is seen within the abdomen or pelvis. On exam there was an exophytic lesion in the mid-vagina. Biopsy confirmed persistent endometrial cancer. Patient was taken for simple partial vaginectomy 05/2022. Pathology confirmed malignancy, negative margins. Interval History: Patient presents to the office today for surveillance. Taken to the OR for simple partial vulvectomy (removal of right labia minora) and simple partial vaginectomy on 08/19/2022. Final pathology showed: Component Final Diagnosis A. VAGINA, PARTIAL VAGINECTOMY-FIBROMUSCULAR TISSUE, FOCALLY IN POSITIVE FOR POORLY DIFFERENTIATED CARCINOMA, COMPATIBLE WITH PATIENT'S HISTORY OF RECURRENT M LLERIAN ADENOCARCINOMA Comment: Most of the specimen is composed of benign fibromuscular tissue. Focally, there is a proliferation of markedly atypical epithelial cells. Immunohistochemical stains for pankeratin are diffusely positive and ER immunostains show weak, patchy positivity. While nonspecific, the histologic changes and immunohistochemical findings would be compatible with the patient's known recurrent poorly differentiated carcinoma in this area. B. LEFT LABIA, EXCISION-SKIN AND UNDERLYING SOFT TISSUES WITH HYPERKERATOSIS, EDEMA, FOCAL ACUTE AND CHRONIC INFLAMMATION, AND REACTIVE CHANGES PET scan 09/09/2022: IMPRESSION: Impression: No convincing evidence of residual malignancy. Follow-up recommended. Still having a lot of vulvar pain. Has soreness of the vulva and bleeding. Has tried several ointments and monistat. Burning. Monistat was the only thing that helped. Is having more shortness of breath. Xray was negative. Having some LUQ pain. Scheduled for U/S. HadPFT's. Results are pending. Past Medical History: Diagnosis Date Anemia LOW IRON DUE TO BLEEDING Asthma Cerebral artery occlusion with cerebral infarction (HCC) Diabetes (HCC) Endometrial adenocarcinoma (CMS/HCC) (HCC) FIGO GRADE 2 GERD (gastroesophageal reflux disease) Glaucoma 2014 Hx of blood clots Mini stroke 2013 Thrombotic. Affected short term memory, had to relearn things, locations. Past Surgical History: Procedure Laterality Date CATARACT EXTRACTION W/ INTRAOCULAR LENS IMPLANT Right 07/09/2021 SECTION (HISTORICAL) x2. Pfannenstiel incisions. COLONOSCOPY DILATION AND CURETTAGE OF UTERUS 12/19/2017 Dr Brittny Gan[facility] ENDOMETRIAL BIOPSY IR CVC MEDIPORT PLACEMENT OTHER SURGICAL HISTORY 12/09/2019 Robotic Fe-Aortic Biopsy TONSILLECTOMY (HISTORICAL) TOTAL ABDOMINAL HYSTERECTOMY 01/19/2018 Robotic hysterectomy, BSO, right pelvic sentinel LNB, left pelvic lymphadenectomy-Dr. Khang Tapia [facility] TUBAL LIGATION UPPER GASTROINTESTINAL ENDOSCOPY Family History Problem Relation Name Age of Onset Breast cancer Neg Hx Ovarian cancer Neg Hx Colon cancer Neg Hx Uterine cancer Neg Hx Social History Socioeconomic History Marital status: Spouse name: Not on file Number of children: Not on file Years of education: Not on file Highest education level: Not on file Occupational History Not on file Tobacco Use Smoking status: Former Packs/day: 1.5 Types: Cigarettes Quit date: 01/12/2003 Years since quittin.0 Smokeless tobacco: Never Vaping Use Vaping Use: Never used Substance and Sexual Activity Alcohol use: Yes Comment: socially Drug use: No Sexual activity: Not Currently control/protection: Surgical Comment: hysterectomy Other Topics Concern Not on file Social History Narrative Not on file Social Determinants of Health Financial Resource Strain: Not on file Food Insecurity: Not on file Transportation Needs: Not on file Physical Activity: Not on file Stress: Not on file Social Connections: Not on file Intimate Partner Violence: Not At Risk (05/30/2022) Humiliation, Afraid, Rape, and Kick questionnaire Fear of Current or Ex-Partner: No Emotionally Abused: No Physically Abused: No Sexually Abused: No Housing Stability: Not on file Current Outpatient Medications on File Prior to Visit Medication Sig Dispense Refill acetaminophen (Tylenol) 500 MG tablet Take 1,000 mg by mouth every 6 hours as needed. albuterol 108 (90 Base) MCG/ACT inhaler Inhale 90 each if needed. aspirin 81 MG chewable tablet Chew 81 mg daily. bacitracin 500 UNIT/GM ointment Apply topically 2 times daily. 28.4 g 0 bisacodyl (Dulcolax) 5 MG EC tablet Take 10 mg by mouth if needed. brimonidine (AlphaGAN P) 0.2 % ophthalmic solution Administer 0.2 drops into both eyes if needed. calcium carbonate (Os-Papito) 1250 (500 Ca) MG chewable tablet Chew 1 tablet if needed. cholecalciferol (Vitamin D-3) 50 MCG (2000 UT) capsule Take 1 capsule (50 mcg) by mouth in the morning. 30 capsule 2 dicyclomine (Bentyl) 10 MG capsule Take 10 mg by mouth if needed. gabapentin (Neurontin) 300 MG capsule Take 1 capsule (300 mg) by mouth Nightly. 90 capsule 1 glimepiride (Amaryl) 4 MG tablet Take 4 mg by mouth daily. ibuprofen 800 MG tablet Take 1 tablet (800 mg) by mouth every 8 hours as needed for mild pain (1-3)or moderate pain (4-6). 60 tablet 0 latanoprost (Xalatan) 0.005 % ophthalmic solution Administer 0.005 drops into both eyes daily. lidocaine (Xylocaine) 5 % ointment Apply topically 2 times daily. 50 g 3 lisinopril 10 MG tablet Take 1 tablet by mouth in the morning. LORazepam (Ativan) 1 MG tablet Take 1 tablet (1 mg) by mouth every 8 hours as needed for anxiety for up to 10 days. 30 tablet 0 metFORMIN XR (Glucophage-XR) 500 MG 24 hr tablet Take 500 mg by mouth in the morning and 500 mg in the evening. Miconazole Nitrate 4 % cream Insert 1 Application into the vagina 2 times daily as needed (itching). 25 g 0 Misc. Devices (Sitz Bath) misc Use for pain relief as needed 1 each 0 Misc. Devices (Collins Bottle/Plastic 120mL) misc Use to clean area as needed 1 each 0 naloxone (Narcan) 4 mg/0.1 mL nasal spray Administer 4 mg into affected nostril(s) if needed. ondansetron (Zofran) 8 MG tablet Take 8 mg by mouth if needed. pantoprazole (ProtoNix) 40 MG EC tablet Take 40 mg by mouth if needed. prochlorperazine (Compazine) 10 MG tablet Take 1 tablet (10 mg) by mouth every 8 hours as needed for nausea or vomiting. 120 tablet 3 sennosides (Senokot) 8.6 MG tablet Take 8.6 mg by mouth in the morning and 8.6 mg in the evening. silver sulfADIAZINE (Silvadene) 1 % cream Apply 1 application. topically 2 times daily. 85 g 1 sucralfate (Carafate) 1 GM/10ML suspension Take 1 g by mouth if needed. Symbicort 160-4.5 MCG/ACT inhaler Inhale 160 puffs if needed. traZODone (Desyrel) 100 MG tablet Take 1 tablet (100 mg) by mouth Nightly. 30 tablet 3 sertraline (Zoloft) 100 MG tablet Take 1 tablet (100 mg) by mouth daily. (Patient taking differently: Take 100 mg by mouth Nightly.) 90 tablet 1 [DISCONTINUED] LORazepam (Ativan) 1 MG tablet Take 1 tablet (1 mg) by mouth every 8 hours as neededfor anxiety for up to 10 days. 30 tablet 0 [DISCONTINUED] oxyCODONE (Roxicodone) 10 MG immediate release tablet Take 1 tablet (10 mg) by mouthevery 6 hours as needed for severe pain (7-10) for up to 28 days. 112 tablet 0 [DISCONTINUED] oxyCODONE (Roxicodone) 10 MG immediate release tablet Take 1 tablet (10 mg) by mouthevery 6 hours as needed for severe pain (7-10) for up to 5 days. 20 tablet 0 No current facility-administered medications on file prior to visit. Allergies as of 01/16/2023 - Reviewed 01/16/2023 Allergen Reaction Noted Morphine Anaphylaxis 02/01/2022 Codeine Rash 02/01/2022 Review of Systems A 12 point review of systems was performed and is as per the history of the present illness, all other systems were reviewed and are negative. Vitals: 01/16/23 1131 BP: (!) 142/88 Body mass index is 39.9 kg/m . Physical Exam Vitals reviewed. Constitutional: General: She is not in acute distress. Appearance: Normal appearance. She is not ill-appearing, toxic-appearing or diaphoretic. HENT: Head: Normocephalic and atraumatic. Eyes: General: No scleral icterus. Extraocular Movements: Extraocular movements intact. Cardiovascular: Rate and Rhythm: Normal rate. Pulmonary: Effort: Pulmonary effort is normal. No respiratory distress. Genitourinary: Urethra: No prolapse, urethral pain, urethral swelling or urethral lesion. Vagina: Normal. Uterus: Absent. 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 There are two new ulcerative lesions noted as above in green. 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 There are no new lesions in the vagina concerning for malignancy. There are more prominent changes related to radiation involving the anterior vagina. There appears to be chronic irritation in the distal vagina more notable in the suburethral area. It is not firm nor friable on exam or palpation. There is some increased vascularity involving the posterior distal vagina that looks more consistent with radiation changes. This is flush with the surrounding tissue and does not appear consistent with malignancy. Musculoskeletal: Right lower leg: No edema. Left lower leg: No edema. Skin: General: Skin is warm and dry. Coloration: Skin is not jaundiced or pale. Neurological: General: No focal deficit present. Mental Status: She is alert. Motor: No weakness. Coordination: Coordination normal. Gait: Gait normal. Psychiatric: Mood and Affect: Mood normal. Behavior: Behavior normal. ASSESSMENT/PLAN: Diagnosis Plan 1. Recurrent carcinoma of endometrium (HCC) Ambulatory referral to Wound Clinic 2. 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 S/P radiation therapy Ambulatory referral to Wound Clinic 4. Cancer associated pain oxyCODONE (Roxicodone) 10 MG immediate release tablet 5. Vulvar ulcer Ambulatory referral to Wound Clinic Danny Pink is a 67 y.o. with recurrent endometrial cancer status post radiation, interstitial brachytherapy and simple partial vaginectomy. Isolated vaginal recurrence s/p resection. Does not require systemic therapy as there is no evidence of metastatic disease on PET 08/2022. I do not think we should start vaginal 5-FU at this time since she still has chronic irritation from the radiation but this might be an option in the future. Oxycodone, topical lidocaine and silvadene for the chronic non-healing vulvar ulcers. Referral to wound clinic. They may have recommendations for topical treatments. She may also be a candidate for hyperbaric oxygen. Ran OARRS. Refilled oxycodone. Told that insurance will not pay for ativan because she has received the maximum number of doses allowed by insurance. Will check to see if there is an alternative. Follow up in 1 month. The patient had an opportunity to ask questions, all of which were answered to the best of my ability. She is in agreement with the above noted plan. I spent a total time of 25 minutes reviewing previous notes, test results, obtaining history, communicating results to the patient as well as counseling the patient, documenting clinical information in the patient's electronic medical record and coordinating care for the patient. Disclaimer: This note was dictated by speech recognition. I apologize for minor errors in wire threader which may be present. documented in this [facility]09-28-2023 Procedure [facility]09-22-2023 Telephone encounter Note* Telephone Encounter - MERRICK Sanchez CNP - 01/10/2023 12:54 PM EDT OARRS report verified, oxycodone and ativan re-ordered to pt's pharmacy per pt request. [id number] Miscellaneous Notes* Telephone Encounter - MERRICK Sanchez CNP - 01/10/2023 12:54 PM EDT OARRS report verified, oxycodone and ativan re-ordered to pt's pharmacy per pt request. * Telephone Encounter - Keyla Gilman - 01/10/2023 8:36 AM EDT Patient called to get her prescription filled. The prescriptions are Oxycodone and Lorazepam. [id number] Telephone encounter Note* Telephone Encounter - Keyla Gilman - 01/10/2023 8:36 AM EDT Patient called to get her prescription filled. The prescriptions are Oxycodone and Lorazepam. [id number] History of Present illness Narrative* Danny Vasquez MD - 12/12/2022 2:40 PM EDT Chief Complaint Patient presents with Endometrial Cancer HISTORY OF THE PRESENT ILLNESS: Danny Pink is a pleasant 67 y.o. female with recurrent endometrial cancer. She has a history of stage IB, FIGO grade 2 endometrioid endometrial adenocarcinoma, +LVSI, +washings, MMR protein testing normal. She underwent robotic endometrial cancer staging on 01/19/2018. Met diagnostic criteria for high-intermediate risk of recurrence. Completed pelvic radiation on 04/27/18. Unfortunately, the patient complained of new onset of back pain in September 2019. She underwent a computed tomography scan of the abdomen and pelvis which showed an enlarged left periaortic lymph node. PET scan confirmed that this was a focus of FDG avidity. There were no other sites of metastatic disease on the PET scan. Management options were discussed with the patient at length. We elected to proceed with an attempt at surgical resection. She underwent attempted robotic resection of the left periaortic lymph node on 12/09/2019. Unfortunately, there was evidence of extracapsular extension of disease and the lymph node was matted and densely adherent to the abdominal aorta. There is no way tocompletely surgically resect the disease. Biopsies were obtained confirming the diagnosis. Patient was started on systemic chemotherapy with carboplatin and paclitaxel. Patient completed cycle #6 carbo/taxol on 04/19/2020. She was on a reduced dose of Taxol 135 mg/m2 due to arthralgias and myalgias. 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 I recommended 3 additional cycles of chemotherapy. Completed #9 cycles of carbo/taxol. Overall, she tolerated chemotherapy well. She does have arthralgias and myalgias that are better tolerated on the reduced dose of Taxol. Repeat PET 08/25/2020: IMPRESSION: There has been significant improvement of intensity of FDG accumulation within a mildly enlarged left periaortic lymph node when compared to the study from 06/16/2020. On the current examination, the node demonstrates mild FDG accumulation. Attention to this area is recommended on subsequent examinations. There are no new areas of abnormal FDG accumulation seen to suggest progression of malignancy. We discussed treatment options - continued carbo/taxol versus hormonal therapy. We switched to tamoxifen/megace. Patient was unable to tolerate hormonal therapy. When she was seen in the office in November 2020 there was a new vaginal lesion. Biopsy confirmed recurrent endometrial cancer. The patientwas started on systemic chemotherapy with Keytruda and Lenvima. She was unable to tolerate Lenvima which was discontinued. She underwent a PET scan on 02/22/2021 to assess response to treatment which showed: IMPRESSION: There is fairly intense, abnormal FDG accumulation within a mildly enlarged left para-aortic lymph node, consistent with residual or recurrent malignancy. When compared to the examination dated 12/08/2020, both the size and intensity of FDG uptake within this node has increased. No new areas of abnormal FDG accumulation are identified. On examination, the periurethral lesion that was somewhat smaller in size. The decision was made tocontinue systemic immunotherapy with Keytruda and consider re-irradiation of the left periaortic lymph node. Received radiation therapy in [place] with Dr. Melendez. Treated from April 25 through May 29, 2021. Received 45 Gy to the periaortic lymph nodes with a simultaneous boost to 55 Gy to the gross disease. Overall, tolerated treatments well and was able to continue Keytruda during her radiation. Does have arthralgia/myalgias several days after Keytruda. Having a rash. Just on her face, happensabout 1 week after the Keytruda. Recurrent urinary tract infections after Keytruda. We are treatingwith prophylactic Bactrim following treatment. PET 08/20/2021: IMPRESSION: Previously identified FDG avid left para-aortic lymph node on the study from 02/22/2021 has decreased in size and intensity of FDG accumulation. No new FDG avid lymphadenopathy is seen within the abdomen or pelvis. There is a new focus of increased FDG uptake within the perineum in the expected location of the vaginal vault or near the vaginal cuff. The intensity of uptake is suspicious for residual or recurrent malignancy. Referred to radiation oncology for interstitial brachytherapy at [facility]. Underwent treatment 12/2021. Post treatment reported blisters on the labia that were painful with drainage. Moist desquamation. Decided to discontinue Keytruda. MRI 04/17/2022: FINDINGS: Uterus: The uterus is surgically absent. The previously seen focus of signal abnormality with abnormal enhancement or restricted diffusion along the posterior wall of the vagina is present, with resolution of the previously seen restricted diffusion and abnormal enhancement. No new pelvic masses identified. Adnexa: No adnexal mass. Neither ovary is identified Free fluid: none identified Lymphadenopathy: none identified Other soft tissue structures: No other abnormality identified Osseous structures: Normal IMPRESSION: Resolution of the previously seen mass along the posterior wall of the vagina. No new pelvic mass. PET 04/25/2022: IMPRESSION: There has been significant improvement of the previously noted area of abnormal FDG accumulation inthe expected location of the vagina or vaginal cuff on the study from 09/07/2021. On the current examination, there is a small area of moderate FDG accumulation at the left margin of the vaginal cuff.This could reflect inflammation following radiation therapy, however a small area of residual or recurrent malignancy cannot be excluded. Continued follow-up is recommended. Borderline enlarged left paratracheal lymph node demonstrate mild to moderate FDG accumulation, unchanged in size and intensity of FDG accumulation when compared to the study from 09/07/2021. No new FDG avid lymphadenopathy or other mass is seen within the abdomen or pelvis. On exam there was an exophytic lesion in the mid-vagina. Biopsy confirmed persistent endometrial cancer. Patient was taken for simple partial vaginectomy 05/2022. Pathology confirmed malignancy, negative margins. Interval History: Patient presents to the office today for surveillance. Taken to the OR for simple partial vulvectomy (removal of right labia minora) and simple partial vaginectomy on 08/19/2022. Final pathology showed: Component Final Diagnosis A. VAGINA, PARTIAL VAGINECTOMY-FIBROMUSCULAR TISSUE, FOCALLY IN POSITIVE FOR POORLY DIFFERENTIATED CARCINOMA, COMPATIBLE WITH PATIENT'S HISTORY OF RECURRENT M LLERIAN ADENOCARCINOMA Comment: Most of the specimen is composed of benign fibromuscular tissue. Focally, there is a proliferation of markedly atypical epithelial cells. Immunohistochemical stains for pankeratin are diffusely positive and ER immunostains show weak, patchy positivity. While nonspecific, the histologic changes and immunohistochemical findings would be compatible with the patient's known recurrent poorly differentiated carcinoma in this area. B. LEFT LABIA, EXCISION-SKIN AND UNDERLYING SOFT TISSUES WITH HYPERKERATOSIS, EDEMA, FOCAL ACUTE AND CHRONIC INFLAMMATION, AND REACTIVE CHANGES PET scan 09/09/2022: IMPRESSION: Impression: No convincing evidence of residual malignancy. Follow-up recommended. Still having a lot of vulvar pain. Ran out of oxycodone. Took too much motrin - stomach ache and dizzy. Has soreness of the vulva and bleeding. Has tried several ointments and monistat. Burning. Monistat was the only thing that helped. Past Medical History: Diagnosis Date Anemia LOW IRON DUE TO BLEEDING Asthma Cerebral artery occlusion with cerebral infarction (HCC) Diabetes (HCC) Endometrial adenocarcinoma (CMS/HCC) (HCC) FIGO GRADE 2 GERD (gastroesophageal reflux disease) Glaucoma 2014 Hx of blood clots Mini stroke 2013 Thrombotic. Affected short term memory, had to relearn things, locations. Past Surgical History: Procedure Laterality Date CATARACT EXTRACTION W/ INTRAOCULAR LENS IMPLANT Right 07/09/2021 SECTION (HISTORICAL) x2. Pfannenstiel incisions. COLONOSCOPY DILATION AND CURETTAGE OF UTERUS 12/19/2017 Dr Brittny Gan[facility] ENDOMETRIAL BIOPSY IR CVC MEDIPORT PLACEMENT OTHER SURGICAL HISTORY 12/09/2019 Robotic Fe-Aortic Biopsy TONSILLECTOMY (HISTORICAL) TOTAL ABDOMINAL HYSTERECTOMY 01/19/2018 Robotic hysterectomy, BSO, right pelvic sentinel LNB, left pelvic lymphadenectomy-Dr. Khang Tapia [facility] TUBAL LIGATION UPPER GASTROINTESTINAL ENDOSCOPY Family History Problem Relation Name Age of Onset Breast cancer Neg Hx Ovarian cancer Neg Hx Colon cancer Neg Hx Uterine cancer Neg Hx Social History Socioeconomic History Marital status: Spouse name: Not on file Number of children: Not on file Years of education: Not on file Highest education level: Not on file Occupational History Not on file Tobacco Use Smoking status: Former Packs/day: 1.50 Types: Cigarettes Quit date: 01/12/2003 Years since quittin.9 Smokeless tobacco: Never Vaping Use Vaping Use: Never used Substance and Sexual Activity Alcohol use: Yes Comment: socially Drug use: No Sexual activity: Not Currently control/protection: Surgical Comment: hysterectomy Other Topics Concern Not on file Social History Narrative Not on file Social Determinants of Health Financial Resource Strain: Not on file Food Insecurity: Not on file Transportation Needs: Not on file Physical Activity: Not on file Stress: Not on file Social Connections: Not on file Intimate Partner Violence: Not At Risk (05/30/2022) Humiliation, Afraid, Rape, and Kick questionnaire Fear of Current or Ex-Partner: No Emotionally Abused: No Physically Abused: No Sexually Abused: No Housing Stability: Not on file Current Outpatient Medications on File Prior to Visit Medication Sig Dispense Refill acetaminophen (Tylenol) 500 MG tablet Take 1,000 mg by mouth every 6 hours as needed. albuterol 108 (90 Base) MCG/ACT inhaler Inhale 90 each if needed. aspirin 81 MG chewable tablet Chew 81 mg daily. bacitracin 500 UNIT/GM ointment Apply topically 2 times daily. 28.4 g 0 bisacodyl (Dulcolax) 5 MG EC tablet Take 10 mg by mouth if needed. brimonidine (AlphaGAN P) 0.2 % ophthalmic solution Administer 0.2 drops into both eyes if needed. calcium carbonate (Os-Papito) 1250 (500 Ca) MG chewable tablet Chew 1 tablet if needed. cholecalciferol (Vitamin D-3) 50 MCG (2000 UT) capsule Take 1 capsule (50 mcg) by mouth in the morning. 30 capsule 2 dicyclomine (Bentyl) 10 MG capsule Take 10 mg by mouth if needed. gabapentin (Neurontin) 300 MG capsule Take 1 capsule (300 mg) by mouth Nightly. 90 capsule 1 glimepiride (Amaryl) 4 MG tablet Take 4 mg by mouth daily. ibuprofen 800 MG tablet Take 1 tablet (800 mg) by mouth every 8 hours as needed for mild pain (1-3)or moderate pain (4-6). 60 tablet 0 latanoprost (Xalatan) 0.005 % ophthalmic solution Administer 0.005 drops into both eyes daily. lidocaine (Xylocaine) 5 % ointment Apply topically 2 times daily. 50 g 3 lisinopril 10 MG tablet Take 1 tablet by mouth in the morning. LORazepam (Ativan) 1 MG tablet Take 1 tablet (1 mg) by mouth every 8 hours as needed for anxiety for up to 10 days. 30 tablet 0 metFORMIN XR (Glucophage-XR) 500 MG 24 hr tablet Take 500 mg by mouth in the morning and 500 mg in the evening. Miconazole Nitrate 4 % cream Insert 1 Application into the vagina 2 times daily as needed (itching). 25 g 0 Misc. Devices (Sitz Bath) misc Use for pain relief as needed 1 each 0 Misc. Devices (Collins Bottle/Plastic 120mL) misc Use to clean area as needed 1 each 0 naloxone (Narcan) 4 mg/0.1 mL nasal spray Administer 4 mg into affected nostril(s) if needed. ondansetron (Zofran) 8 MG tablet Take 8 mg by mouth if needed. pantoprazole (ProtoNix) 40 MG EC tablet Take 40 mg by mouth if needed. prochlorperazine (Compazine) 10 MG tablet Take 1 tablet (10 mg) by mouth every 8 hours as needed for nausea or vomiting. 120 tablet 3 sennosides (Senokot) 8.6 MG tablet Take 8.6 mg by mouth in the morning and 8.6 mg in the evening. silver sulfADIAZINE (Silvadene) 1 % cream Apply 1 application. topically 2 times daily. 85 g 1 sucralfate (Carafate) 1 GM/10ML suspension Take 1 g by mouth if needed. Symbicort 160-4.5 MCG/ACT inhaler Inhale 160 puffs if needed. traZODone (Desyrel) 100 MG tablet Take 1 tablet (100 mg) by mouth Nightly. 30 tablet 3 [DISCONTINUED] oxyCODONE (Roxicodone) 10 MG immediate release tablet Take 1 tablet (10 mg) by mouthevery 6 hours as needed for severe pain (7-10) for up to 28 days. 112 tablet 0 sertraline (Zoloft) 100 MG tablet Take 1 tablet (100 mg) by mouth daily. (Patient taking differently: Take 100 mg by mouth Nightly.) 90 tablet 1 No current facility-administered medications on file prior to visit. Allergies as of 12/12/2022 - Reviewed 12/12/2022 Allergen Reaction Noted Morphine Anaphylaxis 02/01/2022 Codeine Rash 02/01/2022 Review of Systems A 12 point review of systems was performed and is as per the history of the present illness, all other systems were reviewed and are negative. Vitals: 12/12/22 1426 BP: (!) 145/87 Pulse: 101 Body mass index is 38.9 kg/m . Physical Exam Vitals reviewed. Constitutional: General: She is not in acute distress. Appearance: Normal appearance. She is not ill-appearing, toxic-appearing or diaphoretic. HENT: Head: Normocephalic and atraumatic. Eyes: General: No scleral icterus. Extraocular Movements: Extraocular movements intact. Cardiovascular: Rate and Rhythm: Normal rate. Pulmonary: Effort: Pulmonary effort is normal. No respiratory distress. Genitourinary: Urethra: No prolapse, urethral pain, urethral swelling or urethral lesion. Vagina: Normal. Uterus: Absent. 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 There are no new lesions in the vaginal concerning for malignancy. There are more prominent changes related to radiation involving the anterior vagina. There appears to be chronic irritation in the distal vagina more notable in the suburethral area that has the appearance of fibrinous tissue. It is not firm nor friable on exam or palpation. There is some increased vascularity involving the posterior distal vagina that looks more consistent with radiation changes. This is flush with the surrounding tissue and does not appear consistent with malignancy. Musculoskeletal: Right lower leg: No edema. Left lower leg: No edema. Skin: General: Skin is warm and dry. Coloration: Skin is not jaundiced or pale. Neurological: General: No focal deficit present. Mental Status: She is alert. Motor: No weakness. Coordination: Coordination normal. Gait: Gait normal. Psychiatric: Mood and Affect: Mood normal. Behavior: Behavior normal. ASSESSMENT/PLAN: Diagnosis Plan 1. Recurrent carcinoma of endometrium (HCC) 2. 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 S/P radiation therapy 4. Cancer associated pain oxyCODONE (Roxicodone) 10 MG immediate release tablet Danny Pink is a 67 y.o. with recurrent endometrial cancer status post radiation, interstitial brachytherapy and simple partial vaginectomy. Now with another isolated vaginal recurrence s/p resection. Does not require systemic therapy as there is no evidence of metastatic disease. I do not think we should start vaginal 5-FU at this time since she still has chronic irritation from the radiation. Oxycodone, topical lidocaine and silvadene. If she continues to have issues healing we could consider hyperbaric oxygen but I do not think that is indicated at this time. Ran OARRS. Refilled oxycodone. Follow up in 1 month, sooner should the need arise. The patient had an opportunity to ask questions, all of which were answered to the best of my ability. She is in agreement with the above noted plan. I spent a total time of 15 minutes reviewing previous notes, test results, obtaining history, communicating results to the patient as well as counseling the patient, documenting clinical information in the patient's electronic medical record and coordinating care for the patient. Disclaimer: This note was dictated by speech recognition. I apologize for minor errors in wire threader which may be present. documented in this [facility]07-27-2023 History of Present illness Narrative* Danny Sharma MD - 11/14/2022 10:00 AM EDT Chief Complaint Patient presents with Endometrial Cancer HISTORY OF THE PRESENT ILLNESS: Danny Pink is a pleasant 67 y.o. female with recurrent endometrial cancer. She has a history of stage IB, FIGO grade 2 endometrioid endometrial adenocarcinoma, +LVSI, +washings, MMR protein testing normal. She underwent robotic endometrial cancer staging on 01/19/2018. Met diagnostic criteria for high-intermediate risk of recurrence. Completed pelvic radiation on 04/27/18. Unfortunately, the patient complained of new onset of back pain in September 2019. She underwent a computed tomography scan of the abdomen and pelvis which showed an enlarged left periaortic lymph node. PET scan confirmed that this was a focus of FDG avidity. There were no other sites of metastatic disease on the PET scan. Management options were discussed with the patient at length. We elected to proceed with an attempt at surgical resection. She underwent attempted robotic resection of the left periaortic lymph node on 12/09/2019. Unfortunately, there was evidence of extracapsular extension of disease and the lymph node was matted and densely adherent to the abdominal aorta. There is no way tocompletely surgically resect the disease. Biopsies were obtained confirming the diagnosis. Patient was started on systemic chemotherapy with carboplatin and paclitaxel. Patient completed cycle #6 carbo/taxol on 04/19/2020. She was on a reduced dose of Taxol 135 mg/m2 due to arthralgias and myalgias. 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 I recommended 3 additional cycles of chemotherapy. Completed #9 cycles of carbo/taxol. Overall, she tolerated chemotherapy well. She does have arthralgias and myalgias that are better tolerated on the reduced dose of Taxol. Repeat PET 08/25/2020: IMPRESSION: There has been significant improvement of intensity of FDG accumulation within a mildly enlarged left periaortic lymph node when compared to the study from 06/16/2020. On the current examination, the node demonstrates mild FDG accumulation. Attention to this area is recommended on subsequent examinations. There are no new areas of abnormal FDG accumulation seen to suggest progression of malignancy. We discussed treatment options - continued carbo/taxol versus hormonal therapy. We switched to tamoxifen/megace. Patient was unable to tolerate hormonal therapy. When she was seen in the office in November 2020 there was a new vaginal lesion. Biopsy confirmed recurrent endometrial cancer. The patientwas started on systemic chemotherapy with Keytruda and Lenvima. She was unable to tolerate Lenvima which was discontinued. She underwent a PET scan on 02/22/2021 to assess response to treatment which showed: IMPRESSION: There is fairly intense, abnormal FDG accumulation within a mildly enlarged left para-aortic lymph node, consistent with residual or recurrent malignancy. When compared to the examination dated 12/08/2020, both the size and intensity of FDG uptake within this node has increased. No new areas of abnormal FDG accumulation are identified. On examination, the periurethral lesion that was somewhat smaller in size. The decision was made tocontinue systemic immunotherapy with Keytruda and consider re-irradiation of the left periaortic lymph node. Received radiation therapy in [place] with Dr. Melendez. Treated from April 25 through May 29, 2021. Received 45 Gy to the periaortic lymph nodes with a simultaneous boost to 55 Gy to the gross disease. Overall, tolerated treatments well and was able to continue Keytruda during her radiation. Does have arthralgia/myalgias several days after Keytruda. Having a rash. Just on her face, happensabout 1 week after the Keytruda. Recurrent urinary tract infections after Keytruda. We are treatingwith prophylactic Bactrim following treatment. PET 08/20/2021: IMPRESSION: Previously identified FDG avid left para-aortic lymph node on the study from 02/22/2021 has decreased in size and intensity of FDG accumulation. No new FDG avid lymphadenopathy is seen within the abdomen or pelvis. There is a new focus of increased FDG uptake within the perineum in the expected location of the vaginal vault or near the vaginal cuff. The intensity of uptake is suspicious for residual or recurrent malignancy. Referred to radiation oncology for interstitial brachytherapy at [facility]. Underwent treatment 12/2021. Post treatment reported blisters on the labia that were painful with drainage. Moist desquamation. Decided to discontinue Keytruda. MRI 04/17/2022: FINDINGS: Uterus: The uterus is surgically absent. The previously seen focus of signal abnormality with abnormal enhancement or restricted diffusion along the posterior wall of the vagina is present, with resolution of the previously seen restricted diffusion and abnormal enhancement. No new pelvic masses identified. Adnexa: No adnexal mass. Neither ovary is identified Free fluid: none identified Lymphadenopathy: none identified Other soft tissue structures: No other abnormality identified Osseous structures: Normal IMPRESSION: Resolution of the previously seen mass along the posterior wall of the vagina. No new pelvic mass. PET 04/25/2022: IMPRESSION: There has been significant improvement of the previously noted area of abnormal FDG accumulation inthe expected location of the vagina or vaginal cuff on the study from 09/07/2021. On the current examination, there is a small area of moderate FDG accumulation at the left margin of the vaginal cuff.This could reflect inflammation following radiation therapy, however a small area of residual or recurrent malignancy cannot be excluded. Continued follow-up is recommended. Borderline enlarged left paratracheal lymph node demonstrate mild to moderate FDG accumulation, unchanged in size and intensity of FDG accumulation when compared to the study from 09/07/2021. No new FDG avid lymphadenopathy or other mass is seen within the abdomen or pelvis. On exam there was an exophytic lesion in the mid-vagina. Biopsy confirmed persistent endometrial cancer. Patient was taken for simple partial vaginectomy 05/2022. Pathology confirmed malignancy, negative margins. Interval History: Patient presents to the office today for surveillance. Taken to the OR for simple partial vulvectomy (removal of right labia minora) and simple partial vaginectomy on 08/19/2022. Final pathology showed: Component Final Diagnosis A. VAGINA, PARTIAL VAGINECTOMY-FIBROMUSCULAR TISSUE, FOCALLY IN POSITIVE FOR POORLY DIFFERENTIATED CARCINOMA, COMPATIBLE WITH PATIENT'S HISTORY OF RECURRENT M LLERIAN ADENOCARCINOMA Comment: Most of the specimen is composed of benign fibromuscular tissue. Focally, there is a proliferation of markedly atypical epithelial cells. Immunohistochemical stains for pankeratin are diffusely positive and ER immunostains show weak, patchy positivity. While nonspecific, the histologic changes and immunohistochemical findings would be compatible with the patient's known recurrent poorly differentiated carcinoma in this area. B. LEFT LABIA, EXCISION-SKIN AND UNDERLYING SOFT TISSUES WITH HYPERKERATOSIS, EDEMA, FOCAL ACUTE AND CHRONIC INFLAMMATION, AND REACTIVE CHANGES PET scan 09/09/2022: IMPRESSION: Impression: No convincing evidence of residual malignancy. Follow-up recommended. Still having a lot of vulvar pain. Ran out of oxycodone. Took too much motrin - stomach ache and dizzy. Has soreness of the vulva and bleeding. Has tried several ointments and monistat. Burning. Monistat was the only thing that helped. Past Medical History: Diagnosis Date Anemia LOW IRON DUE TO BLEEDING Asthma Cerebral artery occlusion with cerebral infarction (HCC) Diabetes (HCC) Endometrial adenocarcinoma (CMS/HCC) (HCC) FIGO GRADE 2 GERD (gastroesophageal reflux disease) Glaucoma 2014 Hx of blood clots Mini stroke 2013 Thrombotic. Affected short term memory, had to relearn things, locations. Past Surgical History: Procedure Laterality Date CATARACT EXTRACTION W/ INTRAOCULAR LENS IMPLANT Right 07/09/2021 SECTION (HISTORICAL) x2. Pfannenstiel incisions. COLONOSCOPY DILATION AND CURETTAGE OF UTERUS 12/19/2017 Dr Brittny [facility] ENDOMETRIAL BIOPSY IR CVC MEDIPORT PLACEMENT OTHER SURGICAL HISTORY 12/09/2019 Robotic Fe-Aortic Biopsy TONSILLECTOMY (HISTORICAL) TOTAL ABDOMINAL HYSTERECTOMY 01/19/2018 Robotic hysterectomy, BSO, right pelvic sentinel LNB, left pelvic lymphadenectomy-Dr. Khang Tapia [facility] TUBAL LIGATION UPPER GASTROINTESTINAL ENDOSCOPY Family History Problem Relation Name Age of Onset Breast cancer Neg Hx Ovarian cancer Neg Hx Colon cancer Neg Hx Uterine cancer Neg Hx Social History Socioeconomic History Marital status: Spouse name: Not on file Number of children: Not on file Years of education: Not on file Highest education level: Not on file Occupational History Not on file Tobacco Use Smoking status: Former Packs/day: 1.50 Types: Cigarettes Quit date: 01/12/2003 Years since quittin.8 Smokeless tobacco: Never Vaping Use Vaping Use: Never used Substance and Sexual Activity Alcohol use: Yes Comment: socially Drug use: No Sexual activity: Not Currently control/protection: Surgical Comment: hysterectomy Other Topics Concern Not on file Social History Narrative Not on file Social Determinants of Health Financial Resource Strain: Not on file Food Insecurity: Not on file Transportation Needs: Not on file Physical Activity: Not on file Stress: Not on file Social Connections: Not on file Intimate Partner Violence: Not At Risk (05/30/2022) Humiliation, Afraid, Rape, and Kick questionnaire Fear of Current or Ex-Partner: No Emotionally Abused: No Physically Abused: No Sexually Abused: No Housing Stability: Not on file Current Outpatient Medications on File Prior to Visit Medication Sig Dispense Refill acetaminophen (Tylenol) 500 MG tablet Take 1,000 mg by mouth every 6 hours as needed. albuterol 108 (90 Base) MCG/ACT inhaler Inhale 90 each if needed. aspirin 81 MG chewable tablet Chew 81 mg daily. bacitracin 500 UNIT/GM ointment Apply topically 2 times daily. 28.4 g 0 bisacodyl (Dulcolax) 5 MG EC tablet Take 10 mg by mouth if needed. brimonidine (AlphaGAN P) 0.2 % ophthalmic solution Administer 0.2 drops into both eyes if needed. calcium carbonate (Os-Papito) 1250 (500 Ca) MG chewable tablet Chew 1 tablet if needed. cholecalciferol (Vitamin D-3) 50 MCG (2000 UT) capsule Take 1 capsule (50 mcg) by mouth in the morning. 30 capsule 2 dicyclomine (Bentyl) 10 MG capsule Take 10 mg by mouth if needed. glimepiride (Amaryl) 4 MG tablet Take 4 mg by mouth daily. ibuprofen 800 MG tablet Take 1 tablet (800 mg) by mouth every 8 hours as needed for mild pain (1-3)or moderate pain (4-6). 60 tablet 0 latanoprost (Xalatan) 0.005 % ophthalmic solution Administer 0.005 drops into both eyes daily. lisinopril 10 MG tablet Take 1 tablet by mouth in the morning. metFORMIN XR (Glucophage-XR) 500 MG 24 hr tablet Take 500 mg by mouth in the morning and 500 mg in the evening. Misc. Devices (Sitz Bath) misc Use for pain relief as needed 1 each 0 Misc. Devices (Collins Bottle/Plastic 120mL) misc Use to clean area as needed 1 each 0 naloxone (Narcan) 4 mg/0.1 mL nasal spray Administer 4 mg into affected nostril(s) if needed. ondansetron (Zofran) 8 MG tablet Take 8 mg by mouth if needed. pantoprazole (ProtoNix) 40 MG EC tablet Take 40 mg by mouth if needed. prochlorperazine (Compazine) 10 MG tablet Take 1 tablet (10 mg) by mouth every 8 hours as needed for nausea or vomiting. 120 tablet 3 sennosides (Senokot) 8.6 MG tablet Take 8.6 mg by mouth in the morning and 8.6 mg in the evening. silver sulfADIAZINE (Silvadene) 1 % cream Apply 1 application. topically 2 times daily. 85 g 1 sucralfate (Carafate) 1 GM/10ML suspension Take 1 g by mouth if needed. Symbicort 160-4.5 MCG/ACT inhaler Inhale 160 puffs if needed. traZODone (Desyrel) 100 MG tablet Take 1 tablet (100 mg) by mouth Nightly. 30 tablet 3 [DISCONTINUED] gabapentin (Neurontin) 300 MG capsule Take 1 capsule (300 mg) by mouth Nightly. 180 capsule 2 LORazepam (Ativan) 1 MG tablet Take 1 tablet (1 mg) by mouth every 8 hours as needed for anxiety for up to 10 days. 30 tablet 0 sertraline (Zoloft) 100 MG tablet Take 1 tablet (100 mg) by mouth daily. (Patient taking differently: Take 100 mg by mouth Nightly.) 90 tablet 1 [DISCONTINUED] oxyCODONE (Roxicodone) 10 MG immediate release tablet Take 1 tablet (10 mg) by mouthevery 6 hours as needed for severe pain (7-10) for up to 5 days. 20 tablet 0 No current facility-administered medications on file prior to visit. Allergies as of 11/14/2022 - Reviewed 11/14/2022 Allergen Reaction Noted Morphine Anaphylaxis 02/01/2022 Codeine Rash 02/01/2022 Review of Systems A 12 point review of systems was performed and is as per the history of the present illness, all other systems were reviewed and are negative. Vitals: 11/14/22 1005 BP: (!) 140/84 Body mass index is 38.9 kg/m . Physical Exam Vitals reviewed. Constitutional: General: She is not in acute distress. Appearance: Normal appearance. She is not ill-appearing, toxic-appearing or diaphoretic. HENT: Head: Normocephalic and atraumatic. Eyes: General: No scleral icterus. Extraocular Movements: Extraocular movements intact. Cardiovascular: Rate and Rhythm: Normal rate. Pulmonary: Effort: Pulmonary effort is normal. No respiratory distress. Genitourinary: Urethra: No prolapse, urethral pain, urethral swelling or urethral lesion. Vagina: Normal. Uterus: Absent. Comments: Right labia incision has mostly healed via secondary intention. There is a small, <1cmarea that continues to granulate in at the inferior aspect of the incision, close to the posterior introitus. No evidence of infection. Simple partial vaginectomy site healing well. Right mid-vagina.Sutures have dissolved. There are no new lesions in the vaginal concerning for malignancy. Musculoskeletal: Right lower leg: No edema. Left lower leg: No edema. Skin: General: Skin is warm and dry. Coloration: Skin is not jaundiced or pale. Neurological: General: No focal deficit present. Mental Status: She is alert. Motor: No weakness. Coordination: Coordination normal. Gait: Gait normal. Psychiatric: Mood and Affect: Mood normal. Behavior: Behavior normal. ASSESSMENT/PLAN: Diagnosis Plan 1. Recurrent carcinoma of endometrium (HCC) gabapentin (Neurontin) 300 MG capsule 2. S/P radiation therapy 3. 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 Vulvar irritation lidocaine (Xylocaine) 5 % ointment Miconazole Nitrate 4 % cream 5. Cancer associated pain oxyCODONE (Roxicodone) 10 MG immediate release tablet gabapentin (Neurontin) 300 MG capsule Danny Pink is a 67 y.o. with recurrent endometrial cancer status post radiation, interstitial brachytherapy and simple partial vaginectomy. Now with another isolated vaginal recurrence s/p resection. Does not require systemic therapy as there is no evidence of metastatic disease. Continues to have vulvar incision heal via secondary intention. Once this is healed could consider vaginal 5-FU to decrease risk of vaginal recurrence. Supportive measures for vulvar wound discussed, rx as above. Ran OARRS. Refill gabapentin and oxycodone. Follow up w/ [facility] for OAB. The patient had an opportunity to ask questions, all of which were answered to the best of my ability. She is in agreement with the above noted plan. I spent a total time of 25 minutes reviewing previous notes, test results, obtaining history, communicating results to the patient as well as counseling the patient, documenting clinical information in the patient's electronic medical record and coordinating care for the patient. Disclaimer: This note was dictated by speech recognition. I apologize for minor errors in wire threader which may be present. documented in this [facility]07-14-2023 Telephone encounter Note* Telephone Encounter - MERRICK Sanchez CNP - 11/01/2022 10:40 AM EDT Trazodone sent to pt's pharmacy per pt request, OARRS verified. [employer] Phone: [phone] 224-314307-14-2023 Miscellaneous Notes* Telephone Encounter - MERRICK Sanchez CNP - 11/01/2022 10:40 AM EDT Trazodone sent to pt's pharmacy per pt request, OARRS verified. * Telephone Encounter - Gricelda Morrow - 11/01/2022 8:06 AM EDT Patient called to get a refill of her trazodone. * Telephone Encounter - MERRICK Dela Cruz CNP - 10/29/2022 11:23 AM EDT Refilled Ativan and oxycodone prescription and sent to patient's pharmacy. OARRS report ran. * Telephone Encounter - Keyla Gilman - 10/29/2022 10:24 AM EDT Pt called to get prescription filled. The prescriptions are Oxycodone and Lorazepam documented in this encounterSSalem City HospitalAdljmd06-24-6779 Telephone encounter Note* Telephone Encounter - Gricelda Morrow - 11/01/2022 8:06 AM EDT Patient called to get a refill of her trazodone. [facility]Fybbpo85-23-7448 Telephone encounter Note* Telephone Encounter - MERRICK Dela Cruz CNP - 10/29/2022 11:23 AM EDT Refilled Ativan and oxycodone prescription and sent to patient's pharmacy. OARRS report ran. [facility] [id number] Miscellaneous Notes* Telephone Encounter - MERRICK Dela Cruz CNP - 10/29/2022 11:23 AM EDT Refilled Ativan and oxycodone prescription and sent to patient's pharmacy. OARRS report ran. * Telephone Encounter - Keyla Gilman - 10/29/2022 10:24 AM EDT Pt called to get prescription filled. The prescriptions are Oxycodone and Lorazepam documented in this encounterSSalem City HospitalYevops93-68-1356 Telephone encounter Note* Telephone Encounter - Keyla Gilman - 10/29/2022 10:24 AM EDT Pt called to get prescription filled. The prescriptions are Oxycodone and Lorazepam [facility] HospitalGfwkrf17-95-4485 Telephone encounter Note* Telephone Encounter - MERRICK Dela Cruz CNP - 10/23/2022 11:16 AM EDT Patient back and left a message regarding pain refill. I did refill her medications [facility] OARRS report ran. Encourage patient to call back with any questions or concerns [facility] HospitalRwxaef94-33-9250 Miscellaneous Notes* Telephone Encounter - MERRICK Dela Cruz CNP - 10/23/2022 11:16 AM EDT Patient back and left a message regarding pain refill. I did refill her medications [facility] OARRS report ran. Encourage patient to call back with any questions or concerns * Telephone Encounter - Keyla Gilman - 10/23/2022 8:27 AM EDT Pt called and will like her prescription refilled. They are oxycodone and Lorazepam. Pt will like acall back. documented in this [facility]07-05-2023 Telephone encounter Note* Telephone Encounter - Keyla Gilman - 10/23/2022 8:27 AM EDT Pt called and will like her prescription refilled. They are oxycodone and Lorazepam. Pt will like acall back. [facility] HospitalLaazfc47-52-8857 Telephone encounter Note* Telephone Encounter - Gricelda Morrow - 10/16/2022 8:41 AM EDT Returned pt's call to reschedule appt. [facility] 10/16/2022 [facility] [id number] Miscellaneous Notes* Telephone Encounter - Gricelda Morrow - 10/16/2022 8:41 AM EDT Returned pt's call to reschedule appt. [facility] 10/16/2022 * Telephone Encounter - Mayda Clarke - 10/15/2022 4:39 PM EDT Name of caller: Danny Contact phone number: [phone] Relationship to Patient: patient Provider: Dr. Sharma Practice: [facility] [employer] Chief Complaint/Reason for Call: Pt states that she was left a VM earlier to call back in and have her appt on 10/31 rescheduled. Please contact pt to reschedule. Best time of day caller can be reached: Any Patient advised that office/PCP has 24-48 business hours to return their call: No documented in this [facility]06-28-2023 Telephone encounter Note* Telephone Encounter - MERRICK Sanchez CNP - 10/16/2022 7:58 AM EDT OARRS verified and oxycodone sent to pt's pharmacy per pt request. [employer] Phone: 1(349) 522-432106-28-2023 Miscellaneous Notes* Telephone Encounter - MERRICK Sanchez CNP - 10/16/2022 7:58 AM EDT OARRS verified and oxycodone sent to pt's pharmacy per pt request. * Telephone Encounter - Mayda Clarke - 10/15/2022 4:33 PM EDT Medication name: oxyCODONE (Roxicodone) Medication dosage: 10 mg (Miligrams Monthly quantity needed: 20 How many day supply requestin days Medication route: oral (PO) Medication administration time(s): as needed (PRN) If taking medication PRN, reason for taking medication: for severe pain (7-10) If this is a controlled substance do you receive this or any other controlled medication from any other doctor or facility: No Ordering provider: GUMARO Sofia Date of last office visit: 09/12/22 Date of next office visit: 10/31/22 Date of last refill: (see medication tab): 10/10/22 Updated/Validated preferred pharmacy: Yes Patient instructed to contact the pharmacy prior to picking up the medication: No documented in this [facility]06-27-2023 Telephone encounter Note* Telephone Encounter - Mayda Clarke - 10/15/2022 4:39 PM EDT Name of caller: Danny Contact phone number: [phone] Relationship to Patient: patient Provider: Dr. Sharma Practice: [facility] [employer] Chief Complaint/Reason for Call: Pt states that she was left a VM earlier to call back in and have her appt on 10/31 rescheduled. Please contact pt to reschedule. Best time of day caller can be reached: Any Patient advised that office/PCP has 24-48 business hours to return their call: No [facility] HospitalChahjt27-53-8388 Telephone encounter Note* Telephone Encounter - Mayda Clarke - 10/15/2022 4:33 PM EDT Medication name: oxyCODONE (Roxicodone) Medication dosage: 10 mg (Miligrams Monthly quantity needed: 20 How many day supply requestin days Medication route: oral (PO) Medication administration time(s): as needed (PRN) If taking medication PRN, reason for taking medication: for severe pain (7-10) If this is a controlled substance do you receive this or any other controlled medication from any other doctor or facility: No Ordering provider: GUMARO Sofia Date of last office visit: 09/12/22 Date of next office visit: 10/31/22 Date of last refill: (see medication tab): 10/10/22 Updated/Validated preferred pharmacy: Yes Patient instructed to contact the pharmacy prior to picking up the medication: No [facility] [id number] Telephone encounter Note* Telephone Encounter - MERRICK Sanchez CNP - 10/10/2022 11:18 AM EDT OARRS verified, oxycodone sent yo pt's pharmacy. [facility] HospitalJgztlj56-02-7660 Miscellaneous Notes* Telephone Encounter - MERRICK Sanchez CNP - 10/10/2022 11:18 AM EDT OARRS verified, oxycodone sent yo pt's pharmacy. * Telephone Encounter - Keyla Gilman - 10/10/2022 11:02 AM EDT Pt called to get oxycodone refilled. documented in this encounterSSalem City HospitalAwqpkt13-05-7775 Telephone encounter Note* Telephone Encounter - Keyla Gilman - 10/10/2022 11:02 AM EDT Pt called to get oxycodone refilled. [facility] HospitalFukzlb67-77-1578 Telephone encounter Note* Telephone Encounter - MERRICK Sanchez CNP - 10/04/2022 12:35 PM EDT Left voicemail for patient that I refilled her oxycodone. Instructed patient to call our office with further concerns. OARRS report verified. Left our callback number and encouraged pt to call back. [facility] HospitalOnpjcd22-78-4498 Miscellaneous Notes* Telephone Encounter - MERRICK Sanchez CNP - 10/04/2022 12:35 PM EDT Left voicemail for patient that I refilled her oxycodone. Instructed patient to call our office with further concerns. OARRS report verified. Left our callback number and encouraged pt to call back. * Telephone Encounter - Gricelda Morrow - 10/04/2022 11:50 AM EDT Danny called in for a refill of her oxycodone documented in this encounterSumma [id number] Telephone encounter Note* Telephone Encounter - Gricelda Morrow - 10/04/2022 11:50 AM EDT Danny called in for a refill of her oxycodone [facility] HospitalAxlqoe75-90-1604 Note* Perioperative Nursing Note - Radhika Albright RN - 08/19/2022 11:28 AM EDT Pt is dischaged in stable condition to home with family member. IV removed. discharge instructions explained, printed, and handed to pt. Pt verbalizes understanding of instructions. Radhika Albright RN [facility] HospitalPdmbyc15-44-6258 Note* Perioperative Nursing Note - Radhika Albright RN - 08/19/2022 11:28 AM EDT Pt is dischaged in stable condition to home with family member. IV removed. discharge instructions explained, printed, and handed to pt. Pt verbalizes understanding of instructions. Radhika Albright RN [facility] [id number] Miscellaneous Notes* Perioperative Nursing Note - Radhika Albright RN - 08/19/2022 11:28 AM EDT Pt is dischaged in stable condition to home with family member. IV removed. discharge instructions explained, printed, and handed to pt. Pt verbalizes understanding of instructions. Radhika Albright RN * Perioperative Nursing Note - Magi Acosta RN - 08/19/2022 8:15 AM EDT PRE-PROCEDURE ROUNDING COMPLETE. * Op Note - Danny Sharma MD - 08/19/2022 8:11 AM EDT Images from the original note were not included. 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 Priority Lab ID 1 Vagina Tissue TISSUE EXAM Danny Sharma MD 08/19/22 0841 No Routine Description: PARTIAL VAGINECTOMY 2 Vulva Tissue TISSUE EXAM Danny Sharma MD 08/19/22 0849 No Routine Description: LEFT LABIA Staff: Spray Painter Helper: Emilee Ellis RN Scrub Person: Villa Adrian Findings: Examination under anesthesia reveals a swollen, edematous right labia minora. Additionally, there were areas along the superior aspect that were firm and ulcerative. This is the site of previous poor healing following interstitial brachytherapy. I am concerned for the possibility of malignancy. Within the vagina, the uterus and cervix were surgically absent. Changes were noted consistent with the patient's history of previous radiation. There is a new, less than 5 mm raised, erythematous/violaceous lesion that was friable involving the right mid vagina. This is at a different site from the previous residual disease that was involving the left posterior mid vagina. There were no other lesions that were concerning for malignancy. Complications: None apparent; patient tolerated the procedure well. Specimens Collected: Order Name Source Comment Collection Info Order Time BASIC METABOLIC PANEL Blood, Venous Collected By: Magi Acosta RN 08/19/2022 6:50 AM CBC (HEMOGRAM) Blood, Venous Collected By: Magi Acosta RN 08/19/2022 6:50 AM PROTHROMBIN TIME If patient on coumadin within 4 days prior. 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 She was then prepped and draped in the usual sterile fashion in the dorsal lithotomy position with Adal stirrups. Care was taken to neither hyperextend or Hyperflex the patient's hips or knees. A surgical timeout was performed. 2 right angle Judson retractors were placed in the patient's vagina in order to visualize the previously described vaginal lesion. This was grasped with an Allis clamp. The surrounding vaginal mucosa was injected with 1% lidocaine with epinephrine. An elliptical incision was made around the lesion. The specimen was then grasped with a pair of pickups with teeth and dissected from the sob mucosa using sharp dissection with the 15 blade scalpel. The mucosa was then reapproximated with 3- 0 Vicryl with a running stitch. Attention was then turned to the vulvectomy. The planned surgical resection site was outlined, thisbasically involve resection of the superior and mid right labia minora. The planned site was then injected with 1% lidocaine with epinephrine and then a 15 blade scalpel was used to make the incision. The specimen was dissected off the surrounding structures using the scalpel. The base of the surgical site was irrigated and all areas of bleeding were cauterized. The subcutaneous tissue was then reapproximated with buried interrupted sutures of 3-0 Vicryl. The skin was closed with 4-0 Vicryl with a running baseball suture. The surgical site was once again irrigated and bacitracin was applied. The patient tolerated the procedure well. Sponge, lap, needle and instrument counts were correct x2. The patient was awakened and taken to the recovery room in stable condition. She did receive preoperative antibiotics in accordance with SCIP guidelines. She received DVT prophylaxis in the form of serial compression devices during the surgery. 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.3] Post-op Diagnosis * Malignant neoplasm of endometrium (HCC) [C54.1] * Personal history of irradiation [Z92.3] * Neoplasm related pain (acute) (chronic) [G89.3] Vaginal and vulvar lesions concerning for recurrent, metastatic endometrial adenocarcinoma Procedures PARTIAL VAGINECTOMY, PARTIAL VULVECTOMY 42988 - SC VULVECTOMY SIMPLE PARTIAL VAGINECTOMY PARTIAL REMOVAL OF VAGINAL WALL 85349 - SC VAGINECTOMY PARTIAL REMOVAL VAGINAL WALL Surgeons * Danny Sharma - Primary Procedure Summary Anesthesia: General ASA: III Estimated Blood Loss: Minimal Drains: * None in log * Specimens ID Source Type Tests Collected By Collected At Frozen? Priority Lab ID 1 Vagina Tissue TISSUE EXAM Danny Sharma MD 08/19/22 8661 No Routine Description: PARTIAL VAGINECTOMY 2 Vulva Tissue TISSUE EXAM Danny Sharma MD 08/19/22 2234 No Routine Description: LEFT LABIA Staff: Spray Painter Helper: Emilee Ellis RN Scrub Person: Villa Adrian Findings: See dictated report Complications: None apparent; patient tolerated the procedure well. Specimens Collected: Order Name Source Comment Collection Info Order Time BASIC METABOLIC PANEL Blood, Venous Collected By: Magi Acosta RN 08/19/2022 6:50 AM CBC (HEMOGRAM) Blood, Venous Collected By: Magi Acosta RN 08/19/2022 6:50 AM TISSUE EXAM Vagina Pre-op diagnosis: Malignant neoplasm of endometrium (HCC) [C54.1] Personal history of irradiation [Z92.3] Neoplasm related pain (acute) (chronic) [G89.3] Collected By: Danny Vasquez MD 08/19/2022 8:41 AM Wound Class: Class II: Clean-Contaminated Blood Products: None Prophylactic Antibiotics: Procedure appropriate prophylactic antibiotic(s) given within 1 hour of surgical incision (two hours if receiving Vancomycin or flouroquinolone) documented in this [facility]05-01-2023 Note* Perioperative Nursing Note - Magi Acosta RN - 08/19/2022 8:15 AM EDT PRE-PROCEDURE ROUNDING COMPLETE. [facility] [id number] Note* Perioperative Nursing Note - Magi Acosta RN - 08/19/2022 8:15 AM EDT PRE-PROCEDURE ROUNDING COMPLETE. [facility] [id number] Note* Op Note - Danny Sharma MD - 08/19/2022 8:11 AM EDT Images from the original note were not included. 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.3] Post-op Diagnosis * Malignant neoplasm of endometrium (HCC) [C54.1] * Personal history of irradiation [Z92.3] * Neoplasm related pain (acute) (chronic) [G89.3] Vaginal and vulvar lesions concerning for recurrent, metastatic endometrial adenocarcinoma Procedures PARTIAL VAGINECTOMY, PARTIAL VULVECTOMY 48502 - SC VULVECTOMY SIMPLE PARTIAL VAGINECTOMY PARTIAL REMOVAL OF VAGINAL WALL 76769 - SC VAGINECTOMY PARTIAL REMOVAL VAGINAL WALL Surgeons * Danny Sharma - Primary Procedure Summary Anesthesia: General ASA: III Estimated Blood Loss: Minimal Drains: * None in log * Specimens ID Source Type Tests Collected By Collected At [facility]? Priority Lab ID 1 Vagina Tissue TISSUE EXAM Danny Sharma MD 08/19/22 0804 No Routine Description: PARTIAL VAGINECTOMY 2 Vulva Tissue TISSUE EXAM Danny Sharma MD 08/19/22 0874 No Routine Description: LEFT LABIA Staff: Spray Painter Helper: Emilee Ellis RN Scrub Person: Villa Adrian Findings: Examination under anesthesia reveals a swollen, edematous right labia minora. Additionally, there were areas along the superior aspect that were firm and ulcerative. This is the site of previous poor healing following interstitial brachytherapy. I am concerned for the possibility of malignancy. Within the vagina, the uterus and cervix were surgically absent. Changes were noted consistent with the patient's history of previous radiation. There is a new, less than 5 mm raised, erythematous/violaceous lesion that was friable involving the right mid vagina. This is at a different site from the previous residual disease that was involving the left posterior mid vagina. There were no other lesions that were concerning for malignancy. Complications: None apparent; patient tolerated the procedure well. Specimens Collected: Order Name Source Comment Collection Info Order Time BASIC METABOLIC PANEL Blood, Venous Collected By: Magi Acosta RN 08/19/2022 6:50 AM CBC (HEMOGRAM) Blood, Venous Collected By: Magi Acosta RN 08/19/2022 6:50 AM PROTHROMBIN TIME If patient on coumadin within 4 days prior. 08/19/2022 6:50 AM TISSUE EXAM Vagina Pre-op diagnosis: Malignant neoplasm of endometrium (HCC) [C54.1] Personal history of irradiation [Z92.3] Neoplasm related pain (acute) (chronic) [G89.3] Collected By: Danny Vsaquez MD 08/19/2022 8:41 AM Wound Class: Class II: Clean-Contaminated Blood Products: None Prophylactic Antibiotics: Procedure appropriate prophylactic antibiotic(s) given within 1 hour of surgical incision (two hours if receiving Vancomycin or flouroquinolone) Description of the procedure in detail: After informed, written consent was obtained, the patient was identified in the preoperative holding area and taken to the operating room where anesthesia was found to be adequate. She was then prepped and draped in the usual sterile fashion in the dorsal lithotomy position with Adal stirrups. Care was taken to neither hyperextend or Hyperflex the patient's hips or knees. A surgical timeout was performed. 2 right angle Judson retractors were placed in the patient's vagina in order to visualize the previously described vaginal lesion. This was grasped with an Allis clamp. The surrounding vaginal mucosa was injected with 1% lidocaine with epinephrine. An elliptical incision was made around the lesion. The specimen was then grasped with a pair of pickups with teeth and dissected from the sob mucosa using sharp dissection with the 15 blade scalpel. The mucosa was then reapproximated with 3- 0 Vicryl with a running stitch. Attention was then turned to the vulvectomy. The planned surgical resection site was outlined, thisbasically involve resection of the superior and mid right labia minora. The planned site was then injected with 1% lidocaine with epinephrine and then a 15 blade scalpel was used to make the incision. The specimen was dissected off the surrounding structures using the scalpel. The base of the surgical site was irrigated and all areas of bleeding were cauterized. The subcutaneous tissue was then reapproximated with buried interrupted sutures of 3-0 Vicryl. The skin was closed with 4-0 Vicryl with a running baseball suture. The surgical site was once again irrigated and bacitracin was applied. The patient tolerated the procedure well. Sponge, lap, needle and instrument counts were correct x2. The patient was awakened and taken to the recovery room in stable condition. She did receive preoperative antibiotics in accordance with SCIP guidelines. She received DVT prophylaxis in the form of serial compression devices during the surgery. [facility] [id number] Note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.3] Post-op Diagnosis * Malignant neoplasm of endometrium (HCC) [C54.1] * Personal history of irradiation [Z92.3] * Neoplasm related pain (acute) (chronic) [G89.3] Vaginal and vulvar lesions concerning for recurrent, metastatic endometrial adenocarcinoma Procedures PARTIAL VAGINECTOMY, PARTIAL VULVECTOMY 78817 - SC VULVECTOMY SIMPLE PARTIAL VAGINECTOMY PARTIAL REMOVAL OF VAGINAL WALL 26802 - SC VAGINECTOMY PARTIAL REMOVAL VAGINAL WALL Surgeons * Danny Sharma - Primary Procedure Summary Anesthesia: General ASA: III Estimated Blood Loss: Minimal Drains: * None in log * Specimens ID Source Type Tests Collected By Collected At Frozen? Priority Lab ID 1 Vagina Tissue TISSUE EXAM Danny Sharma MD 08/19/22 0841 No Routine Description: PARTIAL VAGINECTOMY 2 Vulva Tissue TISSUE EXAM Danny Sharma MD 08/19/22 0849 No Routine Description: LEFT LABIA Staff: Spray Painter Helper: Emilee Ellis RN Scrub Person: Villa Adrian Findings: See dictated report Complications: None apparent; patient tolerated the procedure well. Specimens Collected: Order Name Source Comment Collection Info Order Time BASIC METABOLIC PANEL Blood, Venous Collected By: Magi Acotsa RN 08/19/2022 6:50 AM CBC (HEMOGRAM) Blood, Venous Collected By: Magi Acosta RN 08/19/2022 6:50 AM TISSUE EXAM Vagina Pre-op diagnosis: Malignant neoplasm of endometrium (HCC) [C54.1] Personal history of irradiation [Z92.3] Neoplasm related pain (acute) (chronic) [G89.3] Collected By: Danny Vasquez MD 08/19/2022 8:41 AM Wound Class: Class II: Clean-Contaminated Blood Products: None Prophylactic Antibiotics: Procedure appropriate prophylactic antibiotic(s) given within 1 hour of surgical incision (two hours if receiving Vancomycin or flouroquinolone) [facility] [id number] Note* Op Note - Danny Sharma MD - 08/19/2022 8:11 AM EDT Images from the original note were not included. 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] Post-op Diagnosis * Malignant neoplasm of endometrium (HCC) [C54.1] * Personal history of irradiation [Z92.3] * Neoplasm related pain (acute) (chronic) [G89.3] Vaginal and vulvar lesions concerning for recurrent, metastatic endometrial adenocarcinoma Procedures PARTIAL VAGINECTOMY, PARTIAL VULVECTOMY 70760 - SC VULVECTOMY SIMPLE PARTIAL VAGINECTOMY PARTIAL REMOVAL OF VAGINAL WALL 38167 - SC VAGINECTOMY PARTIAL REMOVAL VAGINAL WALL Surgeons * Danny Sharma - Primary Procedure Summary Anesthesia: General ASA: III Estimated Blood Loss: Minimal Drains: * None in log * Specimens ID Source Type Tests Collected By Collected At [facility]? Priority Lab ID 1 Vagina Tissue TISSUE EXAM Danny Sharma MD 08/19/22 0861 No Routine Description: PARTIAL VAGINECTOMY 2 Vulva Tissue TISSUE EXAM Danny Sharma MD 08/19/22 0869 No Routine Description: LEFT LABIA Staff: Spray Painter Helper: Emilee Ellis RN Scrub Person: Villa Adrian Findings: Examination under anesthesia reveals a swollen, edematous right labia minora. Additionally, there were areas along the superior aspect that were firm and ulcerative. This is the site of previous poor healing following interstitial brachytherapy. I am concerned for the possibility of malignancy. Within the vagina, the uterus and cervix were surgically absent. Changes were noted consistent with the patient's history of previous radiation. There is a new, less than 5 mm raised, erythematous/violaceous lesion that was friable involving the right mid vagina. This is at a different site from the previous residual disease that was involving the left posterior mid vagina. There were no other lesions that were concerning for malignancy. Complications: None apparent; patient tolerated the procedure well. Specimens Collected: Order Name Source Comment Collection Info Order Time BASIC METABOLIC PANEL Blood, Venous Collected By: Magi Acosta RN 08/19/2022 6:50 AM CBC (HEMOGRAM) Blood, Venous Collected By: Magi Acosta RN 08/19/2022 6:50 AM PROTHROMBIN TIME If patient on coumadin within 4 days prior. 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 She was then prepped and draped in the usual sterile fashion in the dorsal lithotomy position with Adal stirrups. Care was taken to neither hyperextend or Hyperflex the patient's hips or knees. A surgical timeout was performed. 2 right angle Judson retractors were placed in the patient's vagina in order to visualize the previously described vaginal lesion. This was grasped with an Allis clamp. The surrounding vaginal mucosa was injected with 1% lidocaine with epinephrine. An elliptical incision was made around the lesion. The specimen was then grasped with a pair of pickups with teeth and dissected from the sob mucosa using sharp dissection with the 15 blade scalpel. The mucosa was then reapproximated with 3- 0 Vicryl with a running stitch. Attention was then turned to the vulvectomy. The planned surgical resection site was outlined, thisbasically involve resection of the superior and mid right labia minora. The planned site was then injected with 1% lidocaine with epinephrine and then a 15 blade scalpel was used to make the incision. The specimen was dissected off the surrounding structures using the scalpel. The base of the surgical site was irrigated and all areas of bleeding were cauterized. The subcutaneous tissue was then reapproximated with buried interrupted sutures of 3-0 Vicryl. The skin was closed with 4-0 Vicryl with a running baseball suture. The surgical site was once again irrigated and bacitracin was applied. The patient tolerated the procedure well. Sponge, lap, needle and instrument counts were correct x2. The patient was awakened and taken to the recovery room in stable condition. She did receive preoperative antibiotics in accordance with SCIP guidelines. She received DVT prophylaxis in the form of serial compression devices during the surgery. [id number]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.3] Post-op Diagnosis * Malignant neoplasm of endometrium (HCC) [C54.1] * Personal history of irradiation [Z92.3] * Neoplasm related pain (acute) (chronic) [G89.3] Vaginal and vulvar lesions concerning for recurrent, metastatic endometrial adenocarcinoma Procedures PARTIAL VAGINECTOMY, PARTIAL VULVECTOMY 37846 - SC VULVECTOMY SIMPLE PARTIAL VAGINECTOMY PARTIAL REMOVAL OF VAGINAL WALL 79095 - SC VAGINECTOMY PARTIAL REMOVAL VAGINAL WALL Surgeons * Danny Sharma - Primary Procedure Summary Anesthesia: General ASA: III Estimated Blood Loss: Minimal Drains: * None in log * Specimens ID Source Type Tests Collected By Collected At Frozen? Priority Lab ID 1 Vagina Tissue TISSUE EXAM Danny Sharma MD 08/19/22 0841 No Routine Description: PARTIAL VAGINECTOMY 2 Vulva Tissue TISSUE EXAM Danny Sharma MD 08/19/22 0849 No Routine Description: LEFT LABIA Staff: Spray Painter Helper: Emilee Ellis RN Scrub Person: Villa Adrian Findings: See dictated report Complications: None apparent; patient tolerated the procedure well. 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 PATIENT ADMITTING REPRESENTATIVE Pre-Op Note Patient Name: Danny Pink Patient : 1955 Room/Bed: OR/NONE Admission Date/Time: 08/19/2022 6:18 AM Primary Care Physician: Donovan Hernandez Date: 08/19/2022 Time: 6:38 AM The patient was seen in pre-op holding. She is here for simple partial vulvectomy, partial vaginectomy. The procedure risks and complications were reviewed. The labs, consent, and H&P were reviewed and updated as appropriate. The patient had all of her questions answered. OBSTETRICAL HISTORY: OB History Para Term AB Living 0 0 0 0 0 4 SAB IAB Ectopic Multiple Live Births 0 0 0 0 0 PAST MEDICAL HISTORY: has a past medical history of Anemia, Asthma, Cerebral artery occlusion with cerebral infarction (HCC), Diabetes (HCC), Endometrial adenocarcinoma (CMS/HCC) (), GERD (gastroesophageal reflux disease), Glaucoma (2014), blood clots, and Mini stroke (2013). PAST SURGICAL HISTORY: has a past surgical history that includes Other surgical history (12/09/2019); Endometrial biopsy; Total abdominal hysterectomy (01/19/2018); Cataract extraction w/ intraocular lens implant (Right, 07/09/2021); Dilation and curettage of uterus (12/19/2017); Tubal ligation; Tonsillectomy; se ction; Colonoscopy; Upper gastrointestinal endoscopy; and IR CVC mediport placement. ALLERGIES: Allergies as of 08/15/2022 - Reviewed 08/15/2022 Allergen Reaction Noted Morphine Anaphylaxis 02/01/2022 Codeine Rash 02/01/2022 MEDICATIONS: @MEDCMED@ FAMILY HISTORY: family history is not on file. SOCIAL HISTORY: reports that she quit smoking about 19 years ago. Her smoking use included cigarettes. She smoked an average of 1.5 packs per day. She has never used smokeless tobacco. She reports current alcohol use. She reports that she does not use drugs. VITALS: There were no vitals filed for this visit. PHYSICAL EXAM and ROS: Unchanged from Prior H&P LAB RESULTS: No visits with results within 4 Week(s) from this visit. Latest known visit with results is: Office Visit on 06/13/2022 Component Date Value Ref Range Status COLOR 06/13/2022 DARK YELLOW YELLOW Final APPEARANCE 06/13/2022 TURBID (A) CLEAR Final SPECIFIC GRAVITY 06/13/2022 1.027 1.001 - 1.035 Final PH 06/13/2022 < OR = 5.0 5.0 - 8.0 Final GLUCOSE 06/13/2022 NEGATIVE NEGATIVE Final BILIRUBIN 06/13/2022 NEGATIVE NEGATIVE Final KETONES 06/13/2022 TRACE (A) NEGATIVE Final OCCULT BLOOD 06/13/2022 2+ (A) NEGATIVE Final PROTEIN 06/13/2022 1+ (A) NEGATIVE Final NITRITE 06/13/2022 NEGATIVE NEGATIVE Final LEUKOCYTE ESTERASE 06/13/2022 2+ (A) NEGATIVE Final WBC 06/13/2022 20-40 (A) < OR = 5 /HPF Final RBC 06/13/2022 40-60 (A) < OR = 2 /HPF Final SQUAMOUS EPITHELIAL CELLS 06/13/2022 0-5 < OR = 5 /HPF Final TRANSITIONAL EPITHELIAL CELLS 06/13/2022 CANCELED < OR = 5 /HPF Final Result canceled by the ancillary. RENAL EPITHELIAL CELLS 06/13/2022 CANCELED < OR = 3 /HPF Final Result canceled by the ancillary. BACTERIA 06/13/2022 NONE SEEN NONE SEEN /HPF Final CALCIUM OXALATE CRYSTALS 06/13/2022 MODERATE (A) NONE OR FEW /HPF Final TRIPLE PHOSPHATE CRYSTALS 06/13/2022 CANCELED NONE OR FEW /HPF Final Result canceled by the ancillary. URIC ACID CRYSTALS 06/13/2022 CANCELED NONE OR FEW /HPF Final Result canceled by the ancillary. AMORPHOUS SEDIMENT 06/13/2022 CANCELED NONE OR FEW /HPF Final Result canceled by the ancillary. CRYSTALS 06/13/2022 CANCELED NONE SEEN /HPF Final Result canceled by the ancillary. HYALINE CAST 06/13/2022 NONE SEEN NONE SEEN /LPF Final GRANULAR CAST 06/13/2022 CANCELED NONE SEEN /LPF Final Result canceled by the ancillary. CASTS 06/13/2022 CANCELED NONE SEEN /LPF Final Result canceled by the ancillary. YEAST 06/13/2022 CANCELED NONE SEEN /HPF Final Result canceled by the ancillary. COMMENTS 06/13/2022 CANCELED Final Result canceled by the ancillary. NOTE 06/13/2022 Final Comment: This urine was analyzed for the presence of WBC, RBC, bacteria, casts, and other formed elements. Only those elements seen were reported. Urine Culture 06/13/2022 SEE NOTE Final Comment: CULTURE, URINE, ROUTINE Micro Number: [id number] Test Status: Final Specimen Source: Not given Specimen Quality: Adequate Result: No Growth DIAGNOSTICS: @JANNETHLT@ DIAGNOSIS & PLAN: - Proceed with planned procedure: simple partial vulvectomy, partial vaginectomy - Consent signed, on chart. - The patient is ready for transport to the operative suite. Danny Quiñonez MD 08/19/2022, 6:38 AM [id number] History and physical note* Danny Sharma MD - 08/19/2022 6:38 AM EDT Images from the original note were not included. PATIENT ADMITTING REPRESENTATIVE Pre-Op Note Patient Name: Danny Pink Patient : 1955 Room/Bed: OR/NONE Admission Date/Time: 08/19/2022 6:18 AM Primary Care Physician: Donovan Hernandez Date: 08/19/2022 Time: 6:38 AM The patient was seen in pre-op holding. She is here for simple partial vulvectomy, partial vaginectomy. The procedure risks and complications were reviewed. The labs, consent, and H&P were reviewed and updated as appropriate. The patient had all of her questions answered. OBSTETRICAL HISTORY: OB History Para Term AB Living 0 0 0 0 0 4 SAB IAB Ectopic Multiple Live Births 0 0 0 0 0 PAST MEDICAL HISTORY: has a past medical history of Anemia, Asthma, Cerebral artery occlusion with cerebral infarction (HCC), Diabetes (HCC), Endometrial adenocarcinoma (CMS/HCC) (HCC), GERD (gastroesophageal reflux disease), Glaucoma (2014), blood clots, and Mini stroke (2013). PAST SURGICAL HISTORY: has a past surgical history that includes Other surgical history (12/09/2019); Endometrial biopsy; Total abdominal hysterectomy (01/19/2018); Cataract extraction w/ intraocular lens implant (Right, 07/09/2021); Dilation and curettage of uterus (12/19/2017); Tubal ligation; Tonsillectomy; se ction; Colonoscopy; Upper gastrointestinal endoscopy; and IR CVC mediport placement. ALLERGIES: Allergies as of 08/15/2022 - Reviewed 08/15/2022 Allergen Reaction Noted Morphine Anaphylaxis 02/01/2022 Codeine Rash 02/01/2022 MEDICATIONS: @MEDCMED@ FAMILY HISTORY: family history is not on file. SOCIAL HISTORY: reports that she quit smoking about 19 years ago. Her smoking use included cigarettes. She smoked an average of 1.5 packs per day. She has never used smokeless tobacco. She reports current alcohol use. She reports that she does not use drugs. VITALS: There were no vitals filed for this visit. PHYSICAL EXAM and ROS: Unchanged from Prior H&P LAB RESULTS: No visits with results within 4 Week(s) from this visit. Latest known visit with results is: Office Visit on 06/13/2022 Component Date Value Ref Range Status COLOR 06/13/2022 DARK YELLOW YELLOW Final APPEARANCE 06/13/2022 TURBID (A) CLEAR Final SPECIFIC GRAVITY 06/13/2022 1.027 1.001 - 1.035 Final PH 06/13/2022 < OR = 5.0 5.0 - 8.0 Final GLUCOSE 06/13/2022 NEGATIVE NEGATIVE Final BILIRUBIN 06/13/2022 NEGATIVE NEGATIVE Final KETONES 06/13/2022 TRACE (A) NEGATIVE Final OCCULT BLOOD 06/13/2022 2+ (A) NEGATIVE Final PROTEIN 06/13/2022 1+ (A) NEGATIVE Final NITRITE 06/13/2022 NEGATIVE NEGATIVE Final LEUKOCYTE ESTERASE 06/13/2022 2+ (A) NEGATIVE Final WBC 06/13/2022 20-40 (A) < OR = 5 /HPF Final RBC 06/13/2022 40-60 (A) < OR = 2 /HPF Final SQUAMOUS EPITHELIAL CELLS 06/13/2022 0-5 < OR = 5 /HPF Final TRANSITIONAL EPITHELIAL CELLS 06/13/2022 CANCELED < OR = 5 /HPF Final Result canceled by the ancillary. RENAL EPITHELIAL CELLS 06/13/2022 CANCELED < OR = 3 /HPF Final Result canceled by the ancillary. BACTERIA 06/13/2022 NONE SEEN NONE SEEN /HPF Final CALCIUM OXALATE CRYSTALS 06/13/2022 MODERATE (A) NONE OR FEW /HPF Final TRIPLE PHOSPHATE CRYSTALS 06/13/2022 CANCELED NONE OR FEW /HPF Final Result canceled by the ancillary. URIC ACID CRYSTALS 06/13/2022 CANCELED NONE OR FEW /HPF Final Result canceled by the ancillary. AMORPHOUS SEDIMENT 06/13/2022 CANCELED NONE OR FEW /HPF Final Result canceled by the ancillary. CRYSTALS 06/13/2022 CANCELED NONE SEEN /HPF Final Result canceled by the ancillary. HYALINE CAST 06/13/2022 NONE SEEN NONE SEEN /LPF Final GRANULAR CAST 06/13/2022 CANCELED NONE SEEN /LPF Final Result canceled by the ancillary. CASTS 06/13/2022 CANCELED NONE SEEN /LPF Final Result canceled by the ancillary. YEAST 06/13/2022 CANCELED NONE SEEN /HPF Final Result canceled by the ancillary. COMMENTS 06/13/2022 CANCELED Final Result canceled by the ancillary. NOTE 06/13/2022 Final Comment: This urine was analyzed for the presence of WBC, RBC, bacteria, casts, and other formed elements. Only those elements seen were reported. Urine Culture 06/13/2022 SEE NOTE Final Comment: CULTURE, URINE, ROUTINE Micro Number: [id number] Test Status: Final Specimen Source: Not given Specimen Quality: Adequate Result: No Growth DIAGNOSTICS: @RISRSLT@ DIAGNOSIS & PLAN: - Proceed with planned procedure: simple partial vulvectomy, partial vaginectomy - Consent signed, on chart. - The patient is ready for transport to the operative suite. Danny Quiñonez MD 08/19/2022, 6:38 AM documented in this [facility]04-27-2023 History of Present illness Narrative* Danny Sharma MD - 08/15/2022 10:40 AM EDT Chief Complaint Patient presents with Endometrial Cancer Follow-up Pain in right side of labia HISTORY OF THE PRESENT ILLNESS: Danny Pink is a pleasant 66 y.o. female with recurrent endometrial cancer. She has a history of stage IB, FIGO grade 2 endometrioid endometrial adenocarcinoma, +LVSI, +washings, MMR protein testing normal. She underwent robotic endometrial cancer staging on 01/19/2018. Met diagnostic criteria for high-intermediate risk of recurrence. Completed pelvic radiation on 04/27/18. Unfortunately, the patient complained of new onset of back pain in September 2019. She underwent a computed tomography scan of the abdomen and pelvis which showed an enlarged left periaortic lymph node. PET scan confirmed that this was a focus of FDG avidity. There were no other sites of metastatic disease on the PET scan. Management options were discussed with the patient at length. We elected to proceed with an attempt at surgical resection. She underwent attempted robotic resection of the left periaortic lymph node on 12/09/2019. Unfortunately, there was evidence of extracapsular extension of disease and the lymph node was matted and densely adherent to the abdominal aorta. There is no way tocompletely surgically resect the disease. Biopsies were obtained confirming the diagnosis. Patient was started on systemic chemotherapy with carboplatin and paclitaxel. Patient completed cycle #6 carbo/taxol on 04/19/2020. She was on a reduced dose of Taxol 135 mg/m2 due to arthralgias and myalgias. 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 I recommended 3 additional cycles of chemotherapy. Completed #9 cycles of carbo/taxol. Overall, she tolerated chemotherapy well. She does have arthralgias and myalgias that are better tolerated on the reduced dose of Taxol. Repeat PET 08/25/2020: IMPRESSION: There has been significant improvement of intensity of FDG accumulation within a mildly enlarged left periaortic lymph node when compared to the study from 06/16/2020. On the current examination, the node demonstrates mild FDG accumulation. Attention to this area is recommended on subsequent examinations. There are no new areas of abnormal FDG accumulation seen to suggest progression of malignancy. We discussed treatment options - continued carbo/taxol versus hormonal therapy. We switched to tamoxifen/megace. Patient was unable to tolerate hormonal therapy. When she was seen in the office in November 2020 there was a new vaginal lesion. Biopsy confirmed recurrent endometrial cancer. The patientwas started on systemic chemotherapy with Keytruda and Lenvima. She was unable to tolerate Lenvima which was discontinued. She underwent a PET scan on 02/22/2021 to assess response to treatment which showed: IMPRESSION: There is fairly intense, abnormal FDG accumulation within a mildly enlarged left para-aortic lymph node, consistent with residual or recurrent malignancy. When compared to the examination dated 12/08/2020, both the size and intensity of FDG uptake within this node has increased. No new areas of abnormal FDG accumulation are identified. On examination, the periurethral lesion that was somewhat smaller in size. The decision was made tocontinue systemic immunotherapy with Keytruda and consider re-irradiation of the left periaortic lymph node. Received radiation therapy in [place] with Dr. Melendez. Treated from April 25 through May 29, 2021. Received 45 Gy to the periaortic lymph nodes with a simultaneous boost to 55 Gy to the gross disease. Overall, tolerated treatments well and was able to continue Keytruda during her radiation. Does have arthralgia/myalgias several days after Keytruda. Having a rash. Just on her face, happensabout 1 week after the Keytruda. Recurrent urinary tract infections after Keytruda. We are treatingwith prophylactic Bactrim following treatment. PET 08/20/2021: IMPRESSION: Previously identified FDG avid left para-aortic lymph node on the study from 02/22/2021 has decreased in size and intensity of FDG accumulation. No new FDG avid lymphadenopathy is seen within the abdomen or pelvis. There is a new focus of increased FDG uptake within the perineum in the expected location of the vaginal vault or near the vaginal cuff. The intensity of uptake is suspicious for residual or recurrent malignancy. Referred to radiation oncology for interstitial brachytherapy at [facility]. Underwent treatment 12/2021. Post treatment reported blisters on the labia that were painful with drainage. Moist desquamation. Decided to discontinue Keytruda. MRI 04/17/2022: FINDINGS: Uterus: The uterus is surgically absent. The previously seen focus of signal abnormality with abnormal enhancement or restricted diffusion along the posterior wall of the vagina is present, with resolution of the previously seen restricted diffusion and abnormal enhancement. No new pelvic masses identified. Adnexa: No adnexal mass. Neither ovary is identified Free fluid: none identified Lymphadenopathy: none identified Other soft tissue structures: No other abnormality identified Osseous structures: Normal IMPRESSION: Resolution of the previously seen mass along the posterior wall of the vagina. No new pelvic mass. PET 04/25/2022: IMPRESSION: There has been significant improvement of the previously noted area of abnormal FDG accumulation inthe expected location of the vagina or vaginal cuff on the study from 09/07/2021. On the current examination, there is a small area of moderate FDG accumulation at the left margin of the vaginal cuff.This could reflect inflammation following radiation therapy, however a small area of residual or recurrent malignancy cannot be excluded. Continued follow-up is recommended. Borderline enlarged left paratracheal lymph node demonstrate mild to moderate FDG accumulation, unchanged in size and intensity of FDG accumulation when compared to the study from 09/07/2021. No new FDG avid lymphadenopathy or other mass is seen within the abdomen or pelvis. On exam there was an exophytic lesion in the mid-vagina. Biopsy confirmed persistent endometrial cancer. Patient was taken for simple partial vaginectomy 05/2022. Pathology confirmed malignancy, negative margins. Interval History: Patient presents to the office today for routine surveillance of disease. Denies headaches, vision changes, chest pain, shortness of breath. Denies abdominal or pelvic pain.Denies nausea, vomiting, bloating, early satiety. Denies bowel dysfunction. Having urinary urgency. Nocturia - waking up at least two times a night. Avoiding caffeine, soda, tea, etc. referred to urogynecology. Urodynamics suggested, patient declined. Plan for cystoscopy. Trial Gemtesa. Seems to be helping - not having to run to the bathroom. Does have some dry eyes. Pain on the right labia. Noticed bumps. Pain with sitting. Silvadene. Occasional bleeding. Also using emla cream. Getting progressively worse since last visit. Past Medical History: Diagnosis Date Anemia LOW IRON DUE TO BLEEDING Cerebral artery occlusion with cerebral infarction (HCC) Diabetes (HCC) Endometrial adenocarcinoma (CMS/HCC) (HCC) FIGO GRADE 2 GERD (gastroesophageal reflux disease) Glaucoma 2014 Hx of blood clots Mini stroke 2013 Thrombotic. Affected short term memory, had to relearn things, locations. Past Surgical History: Procedure Laterality Date CATARACT EXTRACTION W/ INTRAOCULAR LENS IMPLANT Right 07/09/2021 SECTION (HISTORICAL) x2. Pfannenstiel incisions. DILATION AND CURETTAGE OF UTERUS 12/19/2017 Dr Brittny [facility] ENDOMETRIAL BIOPSY OTHER SURGICAL HISTORY 12/09/2019 Robotic Fe-Aortic Biopsy TONSILLECTOMY (HISTORICAL) TOTAL ABDOMINAL HYSTERECTOMY 01/19/2018 Robotic hysterectomy, BSO, right pelvic sentinel LNB, left pelvic lymphadenectomy-Dr. Khang Tapia [facility] TUBAL LIGATION Family History Problem Relation Name Age of Onset Breast cancer Neg Hx Ovarian cancer Neg Hx Colon cancer Neg Hx Uterine cancer Neg Hx Social History Socioeconomic History Marital status: Spouse name: Not on file Number of children: Not on file Years of education: Not on file Highest education level: Not on file Occupational History Not on file Tobacco Use Smoking status: Former Packs/day: 1.50 Types: Cigarettes Quit date: 01/12/2003 Years since quittin.6 Smokeless tobacco: Never Vaping Use Vaping Use: Never used Substance and Sexual Activity Alcohol use: Yes Comment: socially Drug use: No Sexual activity: Not Currently control/protection: Surgical Comment: hysterectomy Other Topics Concern Not on file Social History Narrative Not on file Social Determinants of Health Financial Resource Strain: Not on file Food Insecurity: Not on file Transportation Needs: Not on file Physical Activity: Not on file Stress: Not on file Social Connections: Not on file Intimate Partner Violence: Not At Risk Fear of Current or Ex-Partner: No Emotionally Abused: No Physically Abused: No Sexually Abused: No Housing Stability: Not on file Current Outpatient Medications on File Prior to Visit Medication Sig Dispense Refill acetaminophen (Tylenol) 500 MG tablet Take 1,000 mg by mouth every 6 hours as needed. albuterol 108 (90 Base) MCG/ACT inhaler Inhale 90 each if needed. aspirin 81 MG chewable tablet Chew 81 mg daily. bisacodyl (Dulcolax) 5 MG EC tablet Take 10 mg by mouth if needed. brimonidine (AlphaGAN P) 0.2 % ophthalmic solution Administer 0.2 drops into both eyes if needed. calcium carbonate (Os-Papito) 1250 (500 Ca) MG chewable tablet Chew 1 tablet if needed. cholecalciferol (Vitamin D-3) 50 MCG (2000 UT) capsule Take 1 capsule (50 mcg) by mouth in the morning. 30 capsule 2 dicyclomine (Bentyl) 10 MG capsule Take 10 mg by mouth if needed. gabapentin (Neurontin) 300 MG capsule Take 300 mg by mouth daily. glimepiride (Amaryl) 4 MG tablet Take 4 mg by mouth daily. ibuprofen 800 MG tablet Take 1 tablet (800 mg) by mouth every 8 hours as needed for mild pain (1-3)or moderate pain (4-6). 60 tablet 0 latanoprost (Xalatan) 0.005 % ophthalmic solution Administer 0.005 drops into both eyes daily. lidocaine-prilocaine (Emla) 2.5-2.5 % cream Apply 2.5 application topically if needed. lisinopril 10 MG tablet Take 1 tablet by mouth in the morning. LORazepam (Ativan) 1 MG tablet Take 1 tablet (1 mg) by mouth every 8 hours as needed for anxiety for up to 10 days. 30 tablet 0 metFORMIN XR (Glucophage-XR) 500 MG 24 hr tablet Take 500 mg by mouth in the morning and 500 mg in the evening. naloxone (Narcan) 4 mg/0.1 mL nasal spray Administer 4 mg into affected nostril(s) if needed. ondansetron (Zofran) 8 MG tablet Take 8 mg by mouth if needed. oxyCODONE (Roxicodone) 10 MG immediate release tablet Take 1 tablet (10 mg) by mouth every 6 hours as needed for severe pain (7-10) for up to 7 days. 28 tablet 0 pantoprazole (ProtoNix) 40 MG EC tablet Take 40 mg by mouth if needed. pembrolizumab (Keytruda) 100 MG/4ML chemo injection Infuse 25 mg into a venous catheter if needed. prochlorperazine (Compazine) 10 MG tablet Take 1 tablet (10 mg) by mouth every 8 hours as needed for nausea or vomiting. 120 tablet 3 sennosides (Senokot) 8.6 MG tablet Take 8.6 mg by mouth in the morning and 8.6 mg in the evening. sertraline (Zoloft) 100 MG tablet Take 1 tablet (100 mg) by mouth daily. 90 tablet 1 silver sulfADIAZINE (Silvadene) 1 % cream Apply 1 application topically as needed. sucralfate (Carafate) 1 GM/10ML suspension Take 1 g by mouth if needed. Symbicort 160-4.5 MCG/ACT inhaler Inhale 160 puffs if needed. traZODone (Desyrel) 100 MG tablet Take 1 tablet (100 mg) by mouth Nightly. 30 tablet 3 [DISCONTINUED] LORazepam (Ativan) 1 MG tablet Take 1 tablet (1 mg) by mouth every 8 hours as neededfor anxiety for up to 10 days. 30 tablet 0 [DISCONTINUED] oxyCODONE (Roxicodone) 10 MG immediate release tablet Take 1 tablet (10 mg) by mouthevery 6 hours as needed for severe pain (7-10) for up to 7 days. 28 tablet 0 No current facility-administered medications on file prior to visit. Allergies as of 08/15/2022 - Reviewed 08/15/2022 Allergen Reaction Noted Morphine Anaphylaxis 02/01/2022 Codeine Rash 02/01/2022 Review of Systems A 12 point review of systems was performed and is as per the history of the present illness, all other systems were reviewed and are negative. Vitals: 08/15/22 1053 BP: (!) 160/85 Temp: 36.1 C (96.9 F) Body mass index is 37.7 kg/m . Physical Exam Vitals reviewed. Constitutional: General: She is not in acute distress. Appearance: Normal appearance. She is not ill-appearing, toxic-appearing or diaphoretic. HENT: Head: Normocephalic and atraumatic. Eyes: General: No scleral icterus. Extraocular Movements: Extraocular movements intact. Cardiovascular: Rate and Rhythm: Normal rate. Pulmonary: Effort: Pulmonary effort is normal. No respiratory distress. Genitourinary: Labia: Right: Tenderness and lesion present. No rash or injury. Left: No rash, tenderness, lesion or injury. Urethra: No prolapse, urethral pain, urethral swelling or urethral lesion. Vagina: Normal. Uterus: Absent. Comments: Right labia enlarged and extremely tender to palpation. There is an area of ulceration near the superior aspect of the labia minora. Findings are concerning for possible recurrent disease. On speculum exam there is a new lesion involving the right mid-vagina that is vascular, nodular and irregular concerning for a new focus of disease in the vagina. Musculoskeletal: Right lower leg: No edema. Left lower leg: No edema. Skin: General: Skin is warm and dry. Coloration: Skin is not jaundiced or pale. Neurological: General: No focal deficit present. Mental Status: She is alert. Motor: No weakness. Coordination: Coordination normal. Gait: Gait normal. Psychiatric: Mood and Affect: Mood normal. Behavior: Behavior normal. ASSESSMENT/PLAN: Diagnosis Plan 1. Recurrent carcinoma of endometrium (HCC) 2. 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 S/P radiation therapy 4. Cancer associated pain Danny Pink is a 66 y.o. with recurrent endometrial cancer status post radiation, interstitial brachytherapy and simple partial vaginectomy. Exam today concerning for recurrent disease in the right labia minora and vagina. Plan for simple partial vulvectomy for diagnosis and treatment given the severe pain. Partial vaginectomy again for diagnosis and treatment. I am concerned that eventually more lesions will develop in the vagina giventhe short time to a new vaginal recurrence. Management options will depend on whether or not there is evidence of metastatic disease. Will need PET scan. Ran OARRS. Refill ativan and oxycodone. EMLA, silvadene. The patient had an opportunity to ask questions, all of which were answered to the best of my ability. She is in agreement with the above noted plan. I spent a total time of 20 minutes reviewing previous notes, test results, obtaining history, communicating results to the patient as well as counseling the patient, documenting clinical information in the patient's electronic medical record and coordinating care for the patient. Disclaimer: This note was dictated by speech recognition. I apologize for minor errors in wire threader which may be present. documented in this encounterSSalem City [id number] Telephone encounter Note* Telephone Encounter - MERRICK Dela Cruz CNP - 07/25/2022 2:50 PM EDT Refilled patient's prescription OARRS report ran sent to patient's pharmacy. [id number] Miscellaneous Notes* Telephone Encounter - MERRICK Dela Cruz CNP - 07/25/2022 2:50 PM EDT Refilled patient's prescription OARRS report ran sent to patient's pharmacy. * Telephone Encounter - Gricelda Morrow - 07/25/2022 1:08 PM EDT Danny called for a refill of her oxycodone documented [place]SE[place] [id number] Telephone encounter Note* Telephone Encounter - Gricelda Morrow - 07/25/2022 1:08 PM EDT Danny called for a refill of her oxycodone [place] [id number] Note* Addendum Note - MERRICK Dela Cruz CNP - 07/23/2022 1:37 PM EDTAddended by: MALINDA BOONE on: 07/23/2022 01:37 PM Modules accepted: [id number] Note* Addendum Note - MERRICK Dela Cruz CNP - 07/23/2022 1:37 PM EDTAddended by: MALINDA BOONE on: 07/23/2022 01:37 PM Modules accepted: Orders [id number] Telephone encounter Note* Telephone Encounter - MERRICK Dela Cruz CNP - 07/23/2022 1:37 PM EDT Ativan prescribed to patient's pharmacy. OARRS report ran. [id number] Miscellaneous Notes* Addendum Note - MERRICK Dela Cruz CNP - 07/23/2022 1:37 PM EDTAddended by: MALINDA BOONE on: 07/23/2022 01:37 PM Modules accepted: Orders * Telephone Encounter - MERRICK Dela Cruz CNP - 07/23/2022 1:37 PM EDT Ativan prescribed to patient's pharmacy. OARRS report ran. * Telephone Encounter - Faith Hurtado RN - 07/23/2022 12:30 PM EDT Pt called in and requesting Lorazepam 1 mg every 6 hours. * Telephone Encounter - Martita Vallejo RN - 07/23/2022 7:57 AM EDT Left message for patient to call the office regarding what rx she needs. * Telephone Encounter - Martita Vallejo RN - 07/22/2022 2:18 PM EDT Unable to leave message. Will call again later. * Telephone Encounter - Martita Vallejo RN - 07/22/2022 12:03 PM EDT Unable to contact patient to find out what rx she needs. Will try later. * Telephone Encounter - Keyla Gilman - 07/22/2022 11:52 AM EDT Pt called to get her prescription refilled documented in this [place] [id number] Telephone encounter Note* Telephone Encounter - Faith Hurtado RN - 07/23/2022 12:30 PM EDT Pt called in and requesting Lorazepam 1 mg every 6 [id number] Telephone encounter Note* Telephone Encounter - Martita Vallejo RN - 07/23/2022 7:57 AM EDT Left message for patient to call the office regarding what rx she needs. [id number] Telephone encounter Note* Telephone Encounter - Martita Vallejo RN - 07/22/2022 2:18 PM EDT Unable to leave message. Will call again later. [place] [id number] Miscellaneous Notes* Telephone Encounter - Martita Vallejo RN - 07/22/2022 2:18 PM EDT Unable to leave message. Will call again later. * Telephone Encounter - Martita Vallejo RN - 07/22/2022 12:03 PM EDT Unable to contact patient to find out what rx she needs. Will try later. * Telephone Encounter - Keyla Gilman - 07/22/2022 11:52 AM EDT Pt called to get her prescription refilled documented in this encounterS06 Williams [id number] Telephone encounter Note* Telephone Encounter - Martita Vallejo RN - 07/22/2022 12:03 PM EDT Unable to contact patient to find out what rx she needs. Will try later. [facility] [id number] Telephone encounter Note* Telephone Encounter - Keyla Gilman - 07/22/2022 11:52 AM EDT Pt called to get her prescription refilled [id number] History of Present illness Narrative* Danny Vasquez MD - 06/13/2022 10:40 AM EST Chief Complaint Patient presents with Post-op Visit HISTORY OF THE PRESENT ILLNESS: Danny Pink is a pleasant 66 y.o. female with recurrent endometrial cancer. She has a history of stage IB, FIGO grade 2 endometrioid endometrial adenocarcinoma, +LVSI, +washings, MMR protein testing normal. She underwent robotic endometrial cancer staging on 01/19/2018. Met diagnostic criteria for high-intermediate risk of recurrence. Completed pelvic radiation on 04/27/18. Unfortunately, the patient complained of new onset of back pain in September 2019. She underwent a computed tomography scan of the abdomen and pelvis which showed an enlarged left periaortic lymph node. PET scan confirmed that this was a focus of FDG avidity. There were no other sites of metastatic disease on the PET scan. Management options were discussed with the patient at length. We elected to proceed with an attempt at surgical resection. She underwent attempted robotic resection of the left periaortic lymph node on 12/09/2019. Unfortunately, there was evidence of extracapsular extension of disease and the lymph node was matted and densely adherent to the abdominal aorta. There is no way tocompletely surgically resect the disease. Biopsies were obtained confirming the diagnosis. Patient was started on systemic chemotherapy with carboplatin and paclitaxel. Patient completed cycle #6 carbo/taxol on 04/19/2020. She was on a reduced dose of Taxol 135 mg/m2 due to arthralgias and myalgias. 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 I recommended 3 additional cycles of chemotherapy. Completed #9 cycles of carbo/taxol. Overall, she tolerated chemotherapy well. She does have arthralgias and myalgias that are better tolerated on the reduced dose of Taxol. Repeat PET 08/25/2020: IMPRESSION: There has been significant improvement of intensity of FDG accumulation within a mildly enlarged left periaortic lymph node when compared to the study from 06/16/2020. On the current examination, the node demonstrates mild FDG accumulation. Attention to this area is recommended on subsequent examinations. There are no new areas of abnormal FDG accumulation seen to suggest progression of malignancy. We discussed treatment options - continued carbo/taxol versus hormonal therapy. We switched to tamoxifen/megace. Patient was unable to tolerate hormonal therapy. When she was seen in the office in November 2020 there was a new vaginal lesion. Biopsy confirmed recurrent endometrial cancer. The patientwas started on systemic chemotherapy with Keytruda and Lenvima. She was unable to tolerate Lenvima which was discontinued. She underwent a PET scan on 02/22/2021 to assess response to treatment which showed: IMPRESSION: There is fairly intense, abnormal FDG accumulation within a mildly enlarged left para-aortic lymph node, consistent with residual or recurrent malignancy. When compared to the examination dated 12/08/2020, both the size and intensity of FDG uptake within this node has increased. No new areas of abnormal FDG accumulation are identified. On examination, the periurethral lesion that was somewhat smaller in size. The decision was made tocontinue systemic immunotherapy with Keytruda and consider re-irradiation of the left periaortic lymph node. Received radiation therapy in [place] with Dr. Melendez. Treated from April 25 through May 29, 2021. Received 45 Gy to the periaortic lymph nodes with a simultaneous boost to 55 Gy to the gross disease. Overall, tolerated treatments well and was able to continue Keytruda during her radiation. Does have arthralgia/myalgias several days after Keytruda. Having a rash. Just on her face, happensabout 1 week after the Keytruda. Recurrent urinary tract infections after Keytruda. We are treatingwith prophylactic Bactrim following treatment. PET 08/20/2021: IMPRESSION: Previously identified FDG avid left para-aortic lymph node on the study from 02/22/2021 has decreased in size and intensity of FDG accumulation. No new FDG avid lymphadenopathy is seen within the abdomen or pelvis. There is a new focus of increased FDG uptake within the perineum in the expected location of the vaginal vault or near the vaginal cuff. The intensity of uptake is suspicious for residual or recurrent malignancy. Referred to radiation oncology for interstitial brachytherapy at [facility]. Underwent treatment 12/2021. Post treatment reported blisters on the labia that were painful with drainage. Moist desquamation. Decided to discontinue Keytruda. MRI 04/17/2022: FINDINGS: Uterus: The uterus is surgically absent. The previously seen focus of signal abnormality with abnormal enhancement or restricted diffusion along the posterior wall of the vagina is present, with resolution of the previously seen restricted diffusion and abnormal enhancement. No new pelvic masses identified. Adnexa: No adnexal mass. Neither ovary is identified Free fluid: none identified Lymphadenopathy: none identified Other soft tissue structures: No other abnormality identified Osseous structures: Normal IMPRESSION: Resolution of the previously seen mass along the posterior wall of the vagina. No new pelvic mass. PET 04/25/2022: IMPRESSION: There has been significant improvement of the previously noted area of abnormal FDG accumulation inthe expected location of the vagina or vaginal cuff on the study from 09/07/2021. On the current examination, there is a small area of moderate FDG accumulation at the left margin of the vaginal cuff.This could reflect inflammation following radiation therapy, however a small area of residual or recurrent malignancy cannot be excluded. Continued follow-up is recommended. Borderline enlarged left paratracheal lymph node demonstrate mild to moderate FDG accumulation, unchanged in size and intensity of FDG accumulation when compared to the study from 09/07/2021. No new FDG avid lymphadenopathy or other mass is seen within the abdomen or pelvis. Interval History: On exam there was an exophytic lesion in the mid-vagina. Biopsy confirmed persistent endometrial cancer. Patient was taken for simple partial vaginectomy. Pathology confirmed malignancy, negative margins. Having urinary urgency. Nocturia - waking up at least two times a night. Avoiding caffeine, soda, tea, etc. Past Medical History: Diagnosis Date Anemia LOW IRON DUE TO BLEEDING Cerebral artery occlusion with cerebral infarction (CMS/HCC) (HCC) Diabetes (HCC) Endometrial adenocarcinoma (CMS/HCC) (HCC) FIGO GRADE 2 GERD (gastroesophageal reflux disease) Glaucoma 2014 Hx of blood clots Mini stroke 2014 Thrombotic. Affected short term memory, had to relearn things, locations. Past Surgical History: Procedure Laterality Date CATARACT EXTRACTION W/ INTRAOCULAR LENS IMPLANT Right 07/09/2021 SECTION (HISTORICAL) x2. Pfannenstiel incisions. DILATION AND CURETTAGE OF UTERUS 12/19/2017 Dr Brittny [facility] ENDOMETRIAL BIOPSY OTHER SURGICAL HISTORY 12/09/2019 Robotic Fe-Aortic Biopsy TONSILLECTOMY (HISTORICAL) TOTAL ABDOMINAL HYSTERECTOMY 01/19/2018 Robotic hysterectomy, BSO, right pelvic sentinel LNB, left pelvic lymphadenectomy-Dr. Khang Tapia [facility] TUBAL LIGATION Family History Problem Relation Name Age of Onset Breast cancer Neg Hx Ovarian cancer Neg Hx Colon cancer Neg Hx Uterine cancer Neg Hx Social History Socioeconomic History Marital status: Spouse name: Not on file Number of children: Not on file Years of education: Not on file Highest education level: Not on file Occupational History Not on file Tobacco Use Smoking status: Former Packs/day: 1.50 Types: Cigarettes Quit date: 01/12/2003 Years since quittin.4 Smokeless tobacco: Never Vaping Use Vaping Use: Never used Substance and Sexual Activity Alcohol use: Yes Comment: socially Drug use: No Sexual activity: Not Currently control/protection: Surgical Comment: hysterectomy Other Topics Concern Not on file Social History Narrative Not on file Social Determinants of Health Financial Resource Strain: Not on file Food Insecurity: Not on file Transportation Needs: Not on file Physical Activity: Not on file Stress: Not on file Social Connections: Not on file Intimate Partner Violence: Not At Risk Fear of Current or Ex-Partner: No Emotionally Abused: No Physically Abused: No Sexually Abused: No Housing Stability: Not on file Current Outpatient Medications on File Prior to Visit Medication Sig Dispense Refill acetaminophen (Tylenol) 500 MG tablet Take 1,000 mg by mouth every 6 hours as needed. albuterol 108 (90 Base) MCG/ACT inhaler Inhale 90 each if needed. aspirin 81 MG chewable tablet Chew 81 mg daily. bisacodyl (Dulcolax) 5 MG EC tablet Take 10 mg by mouth if needed. brimonidine (AlphaGAN P) 0.2 % ophthalmic solution Administer 0.2 drops into both eyes if needed. calcium carbonate (Os-Papito) 1250 (500 Ca) MG chewable tablet Chew 1 tablet if needed. cholecalciferol (Vitamin D-3) 50 MCG (2000 UT) capsule Take 1 capsule (50 mcg) by mouth in the morning. 30 capsule 2 dicyclomine (Bentyl) 10 MG capsule Take 10 mg by mouth if needed. gabapentin (Neurontin) 300 MG capsule Take 300 mg by mouth daily. glimepiride (Amaryl) 4 MG tablet Take 4 mg by mouth daily. ibuprofen 800 MG tablet Take 1 tablet (800 mg) by mouth every 8 hours as needed for mild pain (1-3)or moderate pain (4-6). 60 tablet 0 latanoprost (Xalatan) 0.005 % ophthalmic solution Administer 0.005 drops into both eyes daily. lidocaine-prilocaine (Emla) 2.5-2.5 % cream Apply 2.5 application topically if needed. lisinopril 10 MG tablet Take 1 tablet by mouth in the morning. metFORMIN XR (Glucophage-XR) 500 MG 24 hr tablet Take 500 mg by mouth in the morning and 500 mg in the evening. naloxone (Narcan) 4 mg/0.1 mL nasal spray Administer 4 mg into affected nostril(s) if needed. ondansetron (Zofran) 8 MG tablet Take 8 mg by mouth if needed. pantoprazole (ProtoNix) 40 MG EC tablet Take 40 mg by mouth if needed. pembrolizumab (Keytruda) 100 MG/4ML chemo injection Infuse 25 mg into a venous catheter if needed. prochlorperazine (Compazine) 10 MG tablet Take 10 mg by mouth if needed. sennosides (Senokot) 8.6 MG tablet Take 8.6 mg by mouth in the morning and 8.6 mg in the evening. sertraline (Zoloft) 100 MG tablet Take 1 tablet (100 mg) by mouth daily. 90 tablet 1 silver sulfADIAZINE (Silvadene) 1 % cream Apply 1 application topically as needed. sucralfate (Carafate) 1 GM/10ML suspension Take 1 g by mouth if needed. Symbicort 160-4.5 MCG/ACT inhaler Inhale 160 puffs if needed. [DISCONTINUED] LORazepam (Ativan) 1 MG tablet Take 1 tablet (1 mg) by mouth every 8 hours as neededfor anxiety for up to 28 days. 84 tablet 0 [DISCONTINUED] oxyCODONE (Roxicodone) 10 MG immediate release tablet Take 1 tablet (10 mg) by mouthevery 6 hours as needed for severe pain (7-10) for up to 28 days. 112 tablet 0 traZODone (Desyrel) 100 MG tablet Take 1 tablet (100 mg) by mouth Nightly. 30 tablet 3 No current facility-administered medications on file prior to visit. Allergies as of 06/13/2022 - Reviewed 06/13/2022 Allergen Reaction Noted Morphine Anaphylaxis 02/01/2022 Codeine Rash 02/01/2022 Review of Systems A 12 point review of systems was performed and is as per the history of the present illness, all other systems were reviewed and are negative. Vitals: 06/13/22 1039 BP: 132/88 Temp: 36.4 C (97.5 F) Body mass index is 36.81 kg/m . Physical Exam Vitals reviewed. Constitutional: General: She is not in acute distress. Appearance: Normal appearance. She is not ill-appearing, toxic-appearing or diaphoretic. HENT: Head: Normocephalic and atraumatic. Eyes: General: No scleral icterus. Extraocular Movements: Extraocular movements intact. Cardiovascular: Rate and Rhythm: Normal rate. Pulmonary: Effort: Pulmonary effort is normal. No respiratory distress. Genitourinary: General: Normal vulva. Labia: Right: No rash, tenderness, lesion or injury. Left: No rash, tenderness, lesion or injury. Urethra: No prolapse, urethral pain, urethral swelling or urethral lesion. Vagina: Normal. Uterus: Absent. Comments: Sutures intact. Incision healing well. No evidence of separation. No purulent drainage. Musculoskeletal: Right lower leg: No edema. Left lower leg: No edema. Skin: General: Skin is warm and dry. Coloration: Skin is not jaundiced or pale. Neurological: General: No focal deficit present. Mental Status: She is alert. Motor: No weakness. Coordination: Coordination normal. Gait: Gait normal. Psychiatric: Mood and Affect: Mood normal. Behavior: Behavior normal. ASSESSMENT/PLAN: Diagnosis Plan 1. Postoperative state Urinalysis with reflex microscopic Urine culture 2. Recurrent carcinoma of endometrium (HCC) LORazepam (Ativan) 1 MG tablet oxyCODONE (Roxicodone) 10 MG immediate release tablet 3. 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 Urinary urgency Complete Urinalysis with reflex to Culture [facility] [place] [facility] Urinalysis with reflex microscopic Urine culture 5. Anxiety associated with cancer diagnosis (HCC) LORazepam (Ativan) 1 MG tablet 6. Cancer associated pain oxyCODONE (Roxicodone) 10 MG immediate release tablet Danny Pink is a 66 y.o. with recurrent endometrial cancer status post radiation and now simplepartial vulvectomy for persistent disease, negative margins. No other sites of malignancy on imaging. Recommended observation. Follow up in 3 months, sooner should the need arise. Ran OARRS. Refill ativan and oxycodone. Referral to urogyn for OAB. May be related to radiation. Check UA and culture. The patient had an opportunity to ask questions, all of which were answered to the best of my ability. She is in agreement with the above noted plan. Disclaimer: This note was dictated by speech recognition. I apologize for minor errors in wire threader which may be present. documented in this [facility]02-13-2023 Telephone encounter Note* Telephone Encounter - Danny Sharma MD - 06/03/2022 11:30 AM EST LM for patient with pathology. [id number] Miscellaneous Notes* Telephone Encounter - Danny Sharma MD - 06/03/2022 11:30 AM EST LM for patient with pathology. documented in this [facility]02-09-2023 Note* Brief Op Note - Danny Sharma MD - 05/30/2022 1:15 PM EST Date: 05/30/2022 Location: [facility] Name: Danny Pink, : 1955, Diagnosis Pre-op Diagnosis * Other specified noninflammatory disorders of vagina [N89.8] * Neoplasm related pain (acute) (chronic) [G89.3] * Malignant neoplasm of endometrium (HCC) [C54.1] Post-op Diagnosis * Other specified noninflammatory disorders of vagina [N89.8] * Neoplasm related pain (acute) (chronic) [G89.3] * Malignant neoplasm of endometrium (HCC) [C54.1] Procedures Simple partial vaginectomy Surgeons * Danny Sharma - Primary Procedure Summary Anesthesia: General ASA: II Estimated Blood Loss: Minimal Drains: * None in log * Staff: Spray Painter Helper: Rosie Prieto RN Scrub Person: Nelia Godwin RN Findings: See dictated report Complications: None apparent; patient tolerated the procedure well. Specimens Collected: Order Name Source Comment Collection Info Order Time TISSUE EXAM Vagina Pre-op diagnosis: Other specified noninflammatory disorders of vagina [N89.8] Neoplasm related pain (acute) (chronic) [G89.3] Malignant neoplasm of endometrium (HCC) [C54.1] Collected By: Danny Vasquez MD 05/30/2022 1:41 PM Wound Class: Class II: Clean-Contaminated Blood Products: None Prophylactic Antibiotics: Procedure appropriate prophylactic antibiotic(s) given within 1 hour of surgical incision (two hours if receiving Vancomycin or flouroquinolone) [id number]* Brief Op Note - Danny Sharma MD - 05/30/2022 1:15 PM EST Date: 05/30/2022 Location: [facility] Name: Danny Pink, : 1955, Diagnosis Pre-op Diagnosis * Other specified noninflammatory disorders of vagina [N89.8] * Neoplasm related pain (acute) (chronic) [G89.3] * Malignant neoplasm of endometrium (HCC) [C54.1] Post-op Diagnosis * Other specified noninflammatory disorders of vagina [N89.8] * Neoplasm related pain (acute) (chronic) [G89.3] * Malignant neoplasm of endometrium (HCC) [C54.1] Procedures Simple partial vaginectomy Surgeons * Danny Sharma - Primary Procedure Summary Anesthesia: General ASA: II Estimated Blood Loss: Minimal Drains: * None in log * Staff: Spray Painter Helper: Rosie Prieto RN Scrub Person: Nelia Godwin RN Findings: See dictated report Complications: None apparent; patient tolerated the procedure well. Specimens Collected: Order Name Source Comment Collection Info Order Time TISSUE EXAM Vagina Pre-op diagnosis: Other specified noninflammatory disorders of vagina [N89.8] Neoplasm related pain (acute) (chronic) [G89.3] Malignant neoplasm of endometrium (HCC) [C54.1] Collected By: Danny Vasquez MD 05/30/2022 1:41 PM Wound Class: Class II: Clean-Contaminated Blood Products: None Prophylactic Antibiotics: Procedure appropriate prophylactic antibiotic(s) given within 1 hour of surgical incision (two hours if receiving Vancomycin or flouroquinolone) [id number] Miscellaneous Notes* Brief Op Note - Danny Vasquez MD - 05/30/2022 1:15 PM EST Date: 05/30/2022 Location: [facility] OR Name: Danny Pink, : 1955, Diagnosis Pre-op Diagnosis * Other specified noninflammatory disorders of vagina [N89.8] * Neoplasm related pain (acute) (chronic) [G89.3] * Malignant neoplasm of endometrium (HCC) [C54.1] Post-op Diagnosis * Other specified noninflammatory disorders of vagina [N89.8] * Neoplasm related pain (acute) (chronic) [G89.3] * Malignant neoplasm of endometrium (HCC) [C54.1] Procedures Simple partial vaginectomy Surgeons * Danny Sharma - Primary Procedure Summary Anesthesia: General ASA: II Estimated Blood Loss: Minimal Drains: * None in log * Staff: Spray Painter Helper: Rosie Prieto RN Scrub Person: Nelia Godwin RN Findings: See dictated report Complications: None apparent; patient tolerated the procedure well. Specimens Collected: Order Name Source Comment Collection Info Order Time TISSUE EXAM Vagina Pre-op diagnosis: Other specified noninflammatory disorders of vagina [N89.8] Neoplasm related pain (acute) (chronic) [G89.3] Malignant neoplasm of endometrium (HCC) [C54.1] Collected By: Danny Vasquez MD 05/30/2022 1:41 PM Wound Class: Class II: Clean-Contaminated Blood Products: None Prophylactic Antibiotics: Procedure appropriate prophylactic antibiotic(s) given within 1 hour of surgical incision (two hours if receiving Vancomycin or flouroquinolone) * Preprocedure Instructions - Kareen Pimentel RN - 05/30/2022 1:00 PM EST [facility] - Patient Pre-procedure Instructions Sleep Apnea: If yes, please bring CPAP machine May shower/brush teeth. Leave valuables/jewelry at home. No makeup, lotion, powder, deodorant or body sprays. No contact lenses No makeup, contact lenses, piercings, or dark nail uzbek No solid food after midnight before procedure. Clear liquids only - up to 2 hours prior to your arrival time (water, clear juice, Gatorade, coffee/tea with no milk/sugar, no mints gum or candy If of age, you may need to undergo a test Medications to take the morning of surgery Take the following medications: Bring inhalers, neurontin, lisinopril, prilosec, zoloft, oxycodone if needed, Do not take the following medications: contact primary care physician today to advise you on how totake or hold amaryl, metformin and aspirin No Motrin, ibuprofen or Advil in 24 hours prior to surgery, longer if directed by your surgeon No Aleve or Naprosyn for 3 days prior to surgery or longer if instructed by your surgeon. If you take blood thinners or aspirin, follow instructions given to you by your surgeon You may take your prescription pain medication, you may take Tylenol for pain. Do not use/smoke THC or drink alcohol in the 24 hours prior to your arrival time. Please Bring your Technology Manager's license/photo ID, insurance card, eye drops/sunglasses, inhalers if applicable If you have a Medical Power of Optical Goods Worker, living will, or an advanced directive, please bring a copywith you. We are required to resuscitate and transfer you to the hospital along with your directive. * Perioperative Nursing Note - Paula Gonzalez RN - 05/30/2022 11:55 AM EST Point of care BS 145 preop documented in this [facility]02-09-2023 Note* Preprocedure Instructions - Kareen Pimentel RN - 05/30/2022 1:00 PM EST [facility] - Patient Pre-procedure Instructions Sleep Apnea: If yes, please bring CPAP machine May shower/brush teeth. Leave valuables/jewelry at home. No makeup, lotion, powder, deodorant or body sprays. No contact lenses No makeup, contact lenses, piercings, or dark nail uzbek No solid food after midnight before procedure. Clear liquids only - up to 2 hours prior to your arrival time (water, clear juice, Gatorade, coffee/tea with no milk/sugar, no mints gum or candy If of age, you may need to undergo a test Medications to take the morning of surgery Take the following medications: Bring inhalers, neurontin, lisinopril, prilosec, zoloft, oxycodone if needed, Do not take the following medications: contact primary care physician today to advise you on how totake or hold amaryl, metformin and aspirin No Motrin, ibuprofen or Advil in 24 hours prior to surgery, longer if directed by your surgeon No Aleve or Naprosyn for 3 days prior to surgery or longer if instructed by your surgeon. If you take blood thinners or aspirin, follow instructions given to you by your surgeon You may take your prescription pain medication, you may take Tylenol for pain. Do not use/smoke THC or drink alcohol in the 24 hours prior to your arrival time. Please Bring your Technology Manager's license/photo ID, insurance card, eye drops/sunglasses, inhalers if applicable If you have a Medical Power of Optical Goods Worker, living will, or an advanced directive, please bring a copywith you. We are required to resuscitate and transfer you to the hospital along with your directive. [id number] Note* Preprocedure Instructions - Kareen Pimentel RN - 05/30/2022 1:00 PM EST [facility] - Patient Pre-procedure Instructions Sleep Apnea: If yes, please bring CPAP machine May shower/brush teeth. Leave valuables/jewelry at home. No makeup, lotion, powder, deodorant or body sprays. No contact lenses No makeup, contact lenses, piercings, or dark nail uzbek No solid food after midnight before procedure. Clear liquids only - up to 2 hours prior to your arrival time (water, clear juice, Gatorade, coffee/tea with no milk/sugar, no mints gum or candy If of age, you may need to undergo a test Medications to take the morning of surgery Take the following medications: Bring inhalers, neurontin, lisinopril, prilosec, zoloft, oxycodone if needed, Do not take the following medications: contact primary care physician today to advise you on how totake or hold amaryl, metformin and aspirin No Motrin, ibuprofen or Advil in 24 hours prior to surgery, longer if directed by your surgeon No Aleve or Naprosyn for 3 days prior to surgery or longer if instructed by your surgeon. If you take blood thinners or aspirin, follow instructions given to you by your surgeon You may take your prescription pain medication, you may take Tylenol for pain. Do not use/smoke THC or drink alcohol in the 24 hours prior to your arrival time. Please Bring your Technology Manager's license/photo ID, insurance card, eye drops/sunglasses, inhalers if applicable If you have a Medical Power of Optical Goods Worker, living will, or an advanced directive, please bring a copywith you. We are required to resuscitate and transfer you to the hospital along with your directive. [id number] Hospital Discharge instructions* Discharge Instructions* Swetha Dueñas RN - 05/30/2022 12:26 PM EST Nothing in the vagina (no tampons, intercourse, douching, soaking tub bathes, etc) for 2 weeks while the incision in the vagina heals. Call [phone] for fevers, chills, nausea, vomiting, bowel orbladder dysfunction. You may have vaginal spotting or yellow vaginal discharge. Call for heavy vaginal bleeding- soaking through a pad in an hour or purulent discharge. Anesthesia and Activity: For the first [address], operate heavy or dangerous machinery Do not drink any alcohol or take sleeping pills. Do not make major decisions or sign important papers. You may not be able to think clearly. You are at a higher risk of falling for at least 24 hours. Take extra care when you get up. Do not change positions quickly. Ask for help if you feel unsteady when you try to walk. Start with a light diet when you are fully awake. This includes things that are easy to swallow like soups, pudding, jello, toast and eggs. Slowly progress to your normal diet. Call the doctor if you Have trouble breathing Upset stomach or vomiting more than 3 times in the next 2 days Dizziness documented in this [facility]02-09-2023 History and physical note* Danny Sharma MD - 05/30/2022 11:55 AM EST Images from the original note were not included. PATIENT ADMITTING REPRESENTATIVE Pre-Op Note Patient Name: Danny Pink Patient : 1955 Room/Bed: Room/bed info not found Admission Date/Time: 05/30/2022 11:55 AM Primary Care Physician: Donovan Hernandez Date: 05/30/2022 Time: 12:23 PM The patient was seen in pre-op holding. She is here for simple partial vaginectomy for recurrent endometrial cancer. The procedure risks and complications were reviewed. The labs, consent, and H&P were reviewed and updated as appropriate. The patient had all of her questions answered. OBSTETRICAL HISTORY: OB History No obstetric history on file. PAST MEDICAL HISTORY: has a past medical history of Anemia, Cerebral artery occlusion with cerebral infarction (CMS/HCC) ([facility]), Diabetes (HCC), Endometrial adenocarcinoma (CMS/HCC) (HCC), GERD (gastroesophageal reflux disease), Glaucoma (2014), blood clots, and Mini stroke (2013). PAST SURGICAL HISTORY: has a past surgical history that includes Other surgical history (12/09/2019); Endometrial biopsy; Total abdominal hysterectomy (01/19/2018); Cataract extraction w/ intraocular lens implant (Right, 07/09/2021); Dilation and curettage of uterus (12/19/2017); Tubal ligation; Tonsillectomy; and section. ALLERGIES: Allergies as of 05/24/2022 - Reviewed 05/16/2022 Allergen Reaction Noted Morphine Anaphylaxis 02/01/2022 Codeine Rash 02/01/2022 MEDICATIONS: @MEDCMED@ FAMILY HISTORY: family history is not on file. SOCIAL HISTORY: reports that she quit smoking about 19 years ago. Her smoking use included cigarettes. She smoked an average of 1.5 packs per day. She has never used smokeless tobacco. She reports current alcohol use. She reports that she does not use drugs. VITALS: There were no vitals filed for this visit. PHYSICAL EXAM and ROS: Unchanged from Prior H&P LAB RESULTS: Office Visit on 05/16/2022 Component Date Value Ref Range Status Case Report 05/16/2022 Final Value:Surgical Pathology Case: [id number] Authorizing Provider: Danny Sharma MD Collected: 05/16/2022 1339 Ordering Location: [facility] Received: 05/17/2022 [address] [place] DAIRY MANUFACTURING TECHNOLOGIST Oncology Pathologist: Marleni Reynolds MD PhD Specimen: Vagina Final Diagnosis 05/16/2022 Final Value:This result contains rich text formatting which cannot be displayed here. Gross Description 05/16/2022 Final Value:This result contains rich text formatting which cannot be displayed here. Disclaimer 05/16/2022 Final Value:This result contains rich text formatting which cannot be displayed here. Specimen Description 05/16/2022 vaginal biospy Final Pathologist Interpretation Location 05/16/2022 [facility], [address] [place] [address], [facility] [address]; CLIA: [id number]; Joint Commission: [id number]; CAP: [id number] Final DIAGNOSTICS: @RISRSLT@ DIAGNOSIS & PLAN: - Proceed with planned procedure: simple partial vaginectomy for recurrent endometrial cancer - Consent signed, on chart. - The patient is ready for transport to the operative suite. Danny Quiñonez MD 05/30/2022, 12:23 PM [id number] History and physical note* Danny Sharma MD - 05/30/2022 11:55 AM EST Images from the original note were not included. PATIENT ADMITTING REPRESENTATIVE Pre-Op Note Patient Name: Danny Pink Patient : 1955 Room/Bed: Room/bed info not found Admission Date/Time: 05/30/2022 11:55 AM Primary Care Physician: Donovan Hernandez Date: 05/30/2022 Time: 12:23 PM The patient was seen in pre-op holding. She is here for simple partial vaginectomy for recurrent endometrial cancer. The procedure risks and complications were reviewed. The labs, consent, and H&P were reviewed and updated as appropriate. The patient had all of her questions answered. OBSTETRICAL HISTORY: OB History No obstetric history on file. PAST MEDICAL HISTORY: has a past medical history of Anemia, Cerebral artery occlusion with cerebral infarction (CMS/HCC) (HCC), Diabetes (HCC), Endometrial adenocarcinoma (CMS/HCC) (HCC), GERD (gastroesophageal reflux disease), Glaucoma (2015), blood clots, and Mini stroke (2014). PAST SURGICAL HISTORY: has a past surgical history that includes Other surgical history (12/09/2019); Endometrial biopsy; Total abdominal hysterectomy (01/19/2018); Cataract extraction w/ intraocular lens implant (Right, 07/09/2021); Dilation and curettage of uterus (12/19/2017); Tubal ligation; Tonsillectomy; and section. ALLERGIES: Allergies as of 05/24/2022 - Reviewed 05/16/2022 Allergen Reaction Noted Morphine Anaphylaxis 02/01/2022 Codeine Rash 02/01/2022 MEDICATIONS: @MEDCMED@ FAMILY HISTORY: family history is not on file. SOCIAL HISTORY: reports that she quit smoking about 19 years ago. Her smoking use included cigarettes. She smoked an average of 1.5 packs per day. She has never used smokeless tobacco. She reports current alcohol use. She reports that she does not use drugs. VITALS: There were no vitals filed for this visit. PHYSICAL EXAM and ROS: Unchanged from Prior H&P LAB RESULTS: Office Visit on 05/16/2022 Component Date Value Ref Range Status Case Report 05/16/2022 Final Value:Surgical Pathology Case: [id number] Authorizing Provider: Danny Sharma MD Collected: 05/16/2022 1339 Ordering Location: [facility] Received: 05/17/2022 [address] [place] DAIRY MANUFACTURING TECHNOLOGIST Oncology Pathologist: Marleni Reynolds MD PhD Specimen: Vagina Final Diagnosis 05/16/2022 Final Value:This result contains rich text formatting which cannot be displayed here. Gross Description 05/16/2022 Final Value:This result contains rich text formatting which cannot be displayed here. Disclaimer 05/16/2022 Final Value:This result contains rich text formatting which cannot be displayed here. Specimen Description 05/16/2022 vaginal biospy Final Pathologist Interpretation Location 05/16/2022 [facility], [address] [facility] [address]; CLIA: [id number]; Joint Commission: [id number]; CAP: [id number] Final DIAGNOSTICS: @RISRSLT@ DIAGNOSIS & PLAN: - Proceed with planned procedure: simple partial vaginectomy for recurrent endometrial cancer - Consent signed, on chart. - The patient is ready for transport to the operative suite. Danny Quiñonez MD 05/30/2022, 12:23 PM documented in this [facility]02-09-2023 Note* Perioperative Nursing Note - Paula Gonzalez RN - 05/30/2022 11:55 AM EST Point of care BS 145 [id number] Note* Perioperative Nursing Note - Paula Gonzalez RN - 05/30/2022 11:55 AM EST Point of care BS 145 preop [id number] Telephone encounter Note* Telephone Encounter - Franki Espinoza - 05/29/2022 9:28 AM EST Left message for patient that the OR may have called her to reminder her of surgery and arrival time [place] [id number] Miscellaneous Notes* Telephone Encounter - Franki Espinoza - 05/29/2022 9:28 AM EST Left message for patient that the OR may have called her to reminder her of surgery and arrival time * Telephone Encounter - Faith Hurtado RN - 05/23/2022 12:29 PM EST Called pt and she wants to discuss pathology results from 05/16/22. * Telephone Encounter - Gricelda Morrow - 05/23/2022 12:18 PM EST Pt said she had test results in her my chart and wanted to discuss them. documented in this [facility]02-03-2023 Telephone encounter Note* Telephone Encounter - Franki Espinoza - 05/24/2022 10:16 AM EST SX: ..2022 at 1 pm arrival at 11 am Post op 06.13.2022 at 10:40 am in [place] Instructions given to patient. [facility] [id number] Miscellaneous Notes* Telephone Encounter - Aramanda Espinoza - 05/24/2022 10:16 AM EST SX: 02. at 1 pm arrival at 11 am Post op 06.13.2022 at 10:40 am in [place] Instructions given to patient. documented in this [facility]02-02-2023 Telephone encounter Note* Telephone Encounter - Faith Hurtado RN - 05/23/2022 12:29 PM EST Called pt and she wants to discuss pathology results from 05/16/22. [place] [id number] Miscellaneous Notes* Telephone Encounter - Faith Hurtado RN - 05/23/2022 12:29 PM EST Called pt and she wants to discuss pathology results from 05/16/22. * Telephone Encounter - Gricelda Morrow - 05/23/2022 12:18 PM EST Pt said she had test results in her my chart and wanted to discuss them. documented in this [facility]SS[facility] HospitalKwvxpy11-62-2050 Telephone encounter Note* Telephone Encounter - Gricelda Morrow - 05/23/2022 12:18 PM EST Pt said she had test results in her my chart and wanted to discuss them. [facility] [id number] History of Present illness Narrative* Danny Vasquez MD - 05/16/2022 11:00 AM EST Chief Complaint Patient presents with Endometrial Cancer Follow-up Results HISTORY OF THE PRESENT ILLNESS: Danny Pink is a pleasant 66 y.o. female with recurrent endometrial cancer. She has a history of stage IB, FIGO grade 2 endometrioid endometrial adenocarcinoma, +LVSI, +washings, MMR protein testing normal. She underwent robotic endometrial cancer staging on 01/19/2018. Met diagnostic criteria for high-intermediate risk of recurrence. Completed pelvic radiation on 04/27/18. Unfortunately, the patient complained of new onset of back pain in September 2019. She underwent a computed tomography scan of the abdomen and pelvis which showed an enlarged left periaortic lymph node. PET scan confirmed that this was a focus of FDG avidity. There were no other sites of metastatic disease on the PET scan. Management options were discussed with the patient at length. We elected to proceed with an attempt at surgical resection. She underwent attempted robotic resection of the left periaortic lymph node on 12/09/2019. Unfortunately, there was evidence of extracapsular extension of disease and the lymph node was matted and densely adherent to the abdominal aorta. There is no way tocompletely surgically resect the disease. Biopsies were obtained confirming the diagnosis. Patient was started on systemic chemotherapy with carboplatin and paclitaxel. Patient completed cycle #6 carbo/taxol on 04/19/2020. She was on a reduced dose of Taxol 135 mg/m2 due to arthralgias and myalgias. 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 I recommended 3 additional cycles of chemotherapy. Completed #9 cycles of carbo/taxol. Overall, she tolerated chemotherapy well. She does have arthralgias and myalgias that are better tolerated on the reduced dose of Taxol. Repeat PET 08/25/2020: IMPRESSION: There has been significant improvement of intensity of FDG accumulation within a mildly enlarged left periaortic lymph node when compared to the study from 06/16/2020. On the current examination, the node demonstrates mild FDG accumulation. Attention to this area is recommended on subsequent examinations. There are no new areas of abnormal FDG accumulation seen to suggest progression of malignancy. We discussed treatment options - continued carbo/taxol versus hormonal therapy. We switched to tamoxifen/megace. Patient was unable to tolerate hormonal therapy. When she was seen in the office in November 2020 there was a new vaginal lesion. Biopsy confirmed recurrent endometrial cancer. The patientwas started on systemic chemotherapy with Keytruda and Lenvima. She was unable to tolerate Lenvima which was discontinued. She underwent a PET scan on 02/22/2021 to assess response to treatment which showed: IMPRESSION: There is fairly intense, abnormal FDG accumulation within a mildly enlarged left para-aortic lymph node, consistent with residual or recurrent malignancy. When compared to the examination dated 12/08/2020, both the size and intensity of FDG uptake within this node has increased. No new areas of abnormal FDG accumulation are identified. On examination, the periurethral lesion that was somewhat smaller in size. The decision was made tocontinue systemic immunotherapy with Keytruda and consider re-irradiation of the left periaortic lymph node. Received radiation therapy in [place] with Dr. Melendez. Treated from April 25 through May 29, 2021. Received 45 Gy to the periaortic lymph nodes with a simultaneous boost to 55 Gy to the gross disease. Overall, tolerated treatments well and was able to continue Keytruda during her radiation. Does have arthralgia/myalgias several days after Keytruda. Having a rash. Just on her face, happensabout 1 week after the Keytruda. Recurrent urinary tract infections after Keytruda. We are treatingwith prophylactic Bactrim following treatment. PET 08/20/2021: IMPRESSION: Previously identified FDG avid left para-aortic lymph node on the study from 02/22/2021 has decreased in size and intensity of FDG accumulation. No new FDG avid lymphadenopathy is seen within the abdomen or pelvis. There is a new focus of increased FDG uptake within the perineum in the expected location of the vaginal vault or near the vaginal cuff. The intensity of uptake is suspicious for residual or recurrent malignancy. Referred to radiation oncology for interstitial brachytherapy at [facility]. Underwent treatment 12/2021. Post treatment reported blisters on the labia that were painful with drainage. Moist desquamation. Interval History: Presents to the office today for follow-up. Has felt much better being off of the Keytruda. Energy has improved. She continues to have intermittent vaginal spotting and discharge. MRI 04/17/2022: FINDINGS: Uterus: The uterus is surgically absent. The previously seen focus of signal abnormality with abnormal enhancement or restricted diffusion along the posterior wall of the vagina is present, with resolution of the previously seen restricted diffusion and abnormal enhancement. No new pelvic masses identified. Adnexa: No adnexal mass. Neither ovary is identified Free fluid: none identified Lymphadenopathy: none identified Other soft tissue structures: No other abnormality identified Osseous structures: Normal IMPRESSION: Resolution of the previously seen mass along the posterior wall of the vagina. No new pelvic mass. PET 04/25/2022: IMPRESSION: There has been significant improvement of the previously noted area of abnormal FDG accumulation inthe expected location of the vagina or vaginal cuff on the study from 09/07/2021. On the current examination, there is a small area of moderate FDG accumulation at the left margin of the vaginal cuff.This could reflect inflammation following radiation therapy, however a small area of residual or recurrent malignancy cannot be excluded. Continued follow-up is recommended. Borderline enlarged left paratracheal lymph node demonstrate mild to moderate FDG accumulation, unchanged in size and intensity of FDG accumulation when compared to the study from 09/07/2021. No new FDG avid lymphadenopathy or other mass is seen within the abdomen or pelvis. Past Medical History: Diagnosis Date Anemia LOW IRON DUE TO BLEEDING Cerebral artery occlusion with cerebral infarction (CMS/HCC) (HCC) Diabetes (HCC) Endometrial adenocarcinoma (CMS/HCC) (HCC) FIGO GRADE 2 GERD (gastroesophageal reflux disease) Glaucoma 2014 Hx of blood clots Mini stroke 2013 Thrombotic. Affected short term memory, had to relearn things, locations. Past Surgical History: Procedure Laterality Date CATARACT EXTRACTION W/ INTRAOCULAR LENS IMPLANT Right 07/09/2021 SECTION (HISTORICAL) x2. Pfannenstiel incisions. DILATION AND [facility]URETT[facility] UTERUS [facility] OTHER SURGICAL HISTORY 12/09/2019 Robotic Fe-Aortic Biopsy TONSILLECTOMY (HISTORICAL) TOTAL ABDOMINAL HYSTERECTOMY 01/19/2018 Robotic hysterectomy, BSO, right pelvic sentinel LNB, left pelvic lymphadenectomy-Dr. Khang Tapia [facility] TUBAL LIGATION Family History Problem Relation Name Age of Onset Breast cancer Neg Hx Ovarian cancer Neg Hx Colon cancer Neg Hx Uterine cancer Neg Hx Social History Socioeconomic History Marital status: Spouse name: Not on file Number of children: Not on file Years of education: Not on file Highest education level: Not on file Occupational History Not on file Tobacco Use Smoking status: Former Packs/day: 1.50 Types: Cigarettes Quit date: 01/12/2003 Years since quittin.3 Smokeless tobacco: Never Vaping Use Vaping Use: Never used Substance and Sexual Activity Alcohol use: Yes Drug use: No Sexual activity: Not on file Other Topics Concern Not on file Social History Narrative Not on file Social Determinants of Health Financial Resource Strain: Not on file Food Insecurity: Not on file Transportation Needs: Not on file Physical Activity: Not on file Stress: Not on file Social Connections: Not on file Intimate Partner Violence: Not on file Housing Stability: Not on file Current Outpatient Medications on File Prior to Visit Medication Sig Dispense Refill acetaminophen (Tylenol) 500 MG tablet Take 1,000 mg by mouth every 6 hours as needed. albuterol 108 (90 Base) MCG/ACT inhaler Inhale 90 each if needed. aspirin 81 MG chewable tablet Chew 81 mg daily. bisacodyl (Dulcolax) 5 MG EC tablet Take 10 mg by mouth if needed. brimonidine (AlphaGAN P) 0.2 % ophthalmic solution Administer 0.2 drops into both eyes if needed. calcium carbonate (Os-Papito) 1250 (500 Ca) MG chewable tablet Chew 1 tablet if needed. cholecalciferol (Vitamin D-3) 50 MCG (2000 UT) capsule Take 1 capsule (50 mcg) by mouth in the morning. 30 capsule 2 dicyclomine (Bentyl) 10 MG capsule Take 10 mg by mouth if needed. gabapentin (Neurontin) 300 MG capsule Take 300 mg by mouth daily. glimepiride (Amaryl) 4 MG tablet Take 4 mg by mouth daily. ibuprofen 800 MG tablet Take 1 tablet (800 mg) by mouth every 8 hours as needed for mild pain (1-3)or moderate pain (4-6). 60 tablet 0 latanoprost (Xalatan) 0.005 % ophthalmic solution Administer 0.005 drops into both eyes daily. lidocaine-prilocaine (Emla) 2.5-2.5 % cream Apply 2.5 application topically if needed. lisinopril 10 MG tablet Take 1 tablet by mouth in the morning. metFORMIN XR (Glucophage-XR) 500 MG 24 hr tablet Take 500 mg by mouth in the morning and 500 mg in the evening. naloxone (Narcan) 4 mg/0.1 mL nasal spray Administer 4 mg into affected nostril(s) if needed. ondansetron (Zofran) 8 MG tablet Take 8 mg by mouth if needed. pantoprazole (ProtoNix) 40 MG EC tablet Take 40 mg by mouth if needed. pembrolizumab (Keytruda) 100 MG/4ML chemo injection Infuse 25 mg into a venous catheter if needed. prochlorperazine (Compazine) 10 MG tablet Take 10 mg by mouth if needed. sennosides (Senokot) 8.6 MG tablet Take 8.6 mg by mouth in the morning and 8.6 mg in the evening. sertraline (Zoloft) 100 MG tablet Take 1 tablet (100 mg) by mouth daily. 90 tablet 1 silver sulfADIAZINE (Silvadene) 1 % cream Apply 1 application topically as needed. sucralfate (Carafate) 1 GM/10ML suspension Take 1 g by mouth if needed. Symbicort 160-4.5 MCG/ACT inhaler Inhale 160 puffs if needed. traZODone (Desyrel) 100 MG tablet Take 1 tablet (100 mg) by mouth Nightly. 30 tablet 3 [DISCONTINUED] LORazepam (Ativan) 1 MG tablet Take 1 tablet (1 mg) by mouth every 8 hours as neededfor anxiety for up to 10 days. 30 tablet 0 [DISCONTINUED] oxyCODONE (Roxicodone) 10 MG immediate release tablet Take 1 tablet (10 mg) by mouthevery 6 hours as needed for severe pain (7-10) for up to 7 days. 28 tablet 0 [] oxyCODONE (Roxicodone) 10 MG immediate release tablet Take 1 tablet (10 mg) by mouth every 6 hours as needed for severe pain (7-10) for up to 5 days. 20 tablet 0 No current facility-administered medications on file prior to visit. Allergies as of 05/16/2022 - Reviewed 05/16/2022 Allergen Reaction Noted Morphine Anaphylaxis 02/01/2022 Codeine Rash 02/01/2022 Review of Systems A 12 point review of systems was performed and is as per the history of the present illness, all other systems were reviewed and are negative. Vitals: 05/16/22 1048 BP: 110/78 Temp: 36.2 C (97.1 F) Body mass index is 35.94 kg/m . Physical Exam Vitals reviewed. Constitutional: General: She is not in acute distress. Appearance: Normal appearance. She is not ill-appearing, toxic-appearing or diaphoretic. HENT: Head: Normocephalic and atraumatic. Eyes: General: No scleral icterus. Extraocular Movements: Extraocular movements intact. Cardiovascular: Rate and Rhythm: Normal rate. Pulmonary: Effort: Pulmonary effort is normal. No respiratory distress. Abdominal: General: There is no distension. Palpations: Abdomen is soft. There is no mass. Tenderness: There is no abdominal tenderness. There is no guarding or rebound. Hernia: No hernia is present. Comments: Well healed incisions. No evidence of hernia formation. Genitourinary: General: Normal vulva. Labia: Right: No rash, tenderness, lesion or injury. Left: No rash, tenderness, lesion or injury. Urethra: No prolapse, urethral pain, urethral swelling or urethral lesion. Vagina: Normal. Uterus: Absent. Comments: Vulvar irritation has resolved. About half-way of the vagina on the left-hand side there is a papillary structure protruding into the vagina that was somewhat friable and necrotic. The base of the lesion approximately 5 to 8 mm in size. The majority of the papillary structure was easily removed using a large Q-tip. Over nitrate was applied to the base of the lesion. The patient toleratedthe procedure well. The remainder of the vagina was smooth and atrophic with changes consistent with her history of radiation. There were no other concerning lesions. Musculoskeletal: Right lower leg: No edema. Left lower leg: No edema. Skin: General: Skin is warm and dry. Coloration: Skin is not jaundiced or pale. Neurological: General: No focal deficit present. Mental Status: She is alert. Motor: No weakness. Coordination: Coordination normal. Gait: Gait normal. Psychiatric: Mood and Affect: Mood normal. Behavior: Behavior normal. ASSESSMENT/PLAN: Diagnosis Plan 1. Recurrent carcinoma of endometrium (HCC) Tissue exam LORazepam (Ativan) 1 MG tablet oxyCODONE (Roxicodone) 10 MG immediate release tablet 2. S/P radiation therapy Tissue exam 3. Chemotherapy management, encounter for 4. Vaginal lesion Tissue exam 5. Endometrial cancer (CMS/HCC) (HCC) 6. Anxiety associated with cancer diagnosis (HCC) LORazepam (Ativan) 1 MG tablet 7. Cancer associated pain oxyCODONE (Roxicodone) 10 MG immediate release tablet Danny Pink is a 66 y.o. with recurrent endometrial cancer involving left periaortic lymph nodeand distal vagina. Now status post brachytherapy for vaginal disease. Vaginal lesion noted on examination today. A biopsy was obtained. If there is evidence of residual malignancy, I do think that this would be amendable to a simple partial vulvectomy. If granulation tissue, I would continue to observe. There was no other evidence of recurrent disease on recent PET scan. The patient would like tostay off of systemic therapy and I am in agreement. Follow-up on results and treat as indicated. If the patient does require simple partial vulvectomy she would like the surgery done in [place]. I ran an OARRS report prior to refilling the patient's Ativan and oxycodone for her cancer related pain and anxiety. I spent a total time of 15 minutes reviewing previous notes, test results, obtaining history, communicating results to the patient as well as counseling the patient, documenting clinical information in the patient's electronic medical record and coordinating care for the patient. The patient had an opportunity to ask questions, all of which were answered to the best of my ability. She is in agreement with the above noted plan. Disclaimer: This note was dictated by speech recognition. I apologize for minor errors in wire threader which may be present. documented in this [facility]01-26-2023 Miscellaneous Notes* Addendum Note - Brooklynn Morales - 05/16/2022 11:00 AM ESTAddended by: BROOKLYNN MORALES on: 05/16/2022 01:39 PM Modules accepted: Orders documented in this [facility]01-26-2023 Note* Addendum Note - Brooklynn Morales - 05/16/2022 11:00 AM ESTAddended by: BROOKLYNN MORALES on: 05/16/2022 01:39 PM Modules accepted: [id number] Note* Addendum Note - Brooklynn Morales - 05/16/2022 11:00 AM ESTAddended by: BROOKLYNN MORALES on: 05/16/2022 01:39 PM Modules accepted: [id number] Telephone encounter Note* Telephone Encounter - MERRICK Sanchez CNP - 05/13/2022 10:31 AM EST OARRS verified, Oxycodone sent to pt's pharmacy for her pain. [id number] Miscellaneous Notes* Telephone Encounter - MERRICK Sanchez CNP - 05/13/2022 10:31 AM EST OARRS verified, Oxycodone sent to pt's pharmacy for her pain. * Telephone Encounter - Gricelda Morrow - 05/13/2022 8:59 AM EST Pt is requesting a refill for her oxycodone. documented in this [facility]01-23-2023 Telephone encounter Note* Telephone Encounter - Gricelda Morrow - 05/13/2022 8:59 AM EST Pt is requesting a refill for her oxycodone. [id number] Telephone encounter Note* Telephone Encounter - MERRICK Sanchez CNP - 05/06/2022 1:13 PM EST Patient reports pain 6 out of 10 in abdominal area. Also reports anxiety related to cancer diagnosis. OARRS verified. Oxycodone and Ativan sent to patient's pharmacy. Palliative care referral placed several months ago, I spoke with patient and gave them palliative care's phone number for her to call them to schedule appointment, I also called palliative care to call patient in regards to needing appointment. Patient verbalized understanding, no further questions. [id number] Miscellaneous Notes* Telephone Encounter - MERRICK Sanchez CNP - 05/06/2022 1:13 PM EST Patient reports pain 6 out of 10 in abdominal area. Also reports anxiety related to cancer diagnosis. OARRS verified. Oxycodone and Ativan sent to patient's pharmacy. Palliative care referral placed several months ago, I spoke with patient and gave them palliative care's phone number for her to call them to schedule appointment, I also called palliative care to call patient in regards to needing appointment. Patient verbalized understanding, no further questions. * Telephone Encounter - Gricelda Morrow - 05/06/2022 9:48 AM EST Pt called for a refill request for Lorazapam and oxycodone. documented in this [id number] Telephone encounter Note* Telephone Encounter - Gricelda Morrow - 05/06/2022 9:48 AM EST Pt called for a refill request for Lorazapam and oxycodone. [facility]nmzar69-95-0112 Telephone encounter Note* Telephone Encounter - MERRICK Sanchez CNP - 04/29/2022 9:55 AM EST OARRS verified, Oxycodone sent to pt's pharmacy. [id number] Miscellaneous Notes* Telephone Encounter - MERRICK Sanchez CNP - 04/29/2022 9:55 AM EST OARRS verified, Oxycodone sent to pt's pharmacy. * Telephone Encounter - Zina Cruz MA - 04/29/2022 9:16 AM EST Pt called in stating that she needs a refill on her oxycodone she is still experiencing pain. documented in this [facility]SS[facility] [id number] Telephone encounter Note* Telephone Encounter - Zina Cruz MA - 04/29/2022 9:16 AM EST Pt called in stating that she needs a refill on her oxycodone she is still experiencing pain. [id number] Telephone encounter Note* Telephone Encounter - Danny Sharma MD - 04/23/2022 3:46 PM EST LM for patient with MRI results. [id number] Miscellaneous Notes* Telephone Encounter - Danny Sharma MD - 04/23/2022 3:46 PM EST LM for patient with MRI results. documented in this [facility]08-11-2022 History of Present illness Narrative* Catalina Hernández RN - 11/29/2021 11:00 AM EDT Arrival Note Infusion Patient is here for chemotherapy Labs were not ordered. Labs were drawn 11/28/21 and are sufficient for treatment. 1210 Patient tolerated Keytruda infusion well. No IV related complications. Reviewed home going instructions. Patient understands s/sx adverse reaction or complication to report to MD office. Patientdenies questions or concerns. Pt given Sept appt. documented in this [facility] Work Phone: 1(757) 503-944906-30-2022 History of Present illness Narrative* Nely Denney RN - 10/18/2021 11:00 AM EDT Patient arrived for keytruda infusion. Labs previously drawn and within treatment parameters. Port accessed per protocol and patient ready for infusion. 1212 Ordered treatment completed. Patient discharged without any issues. Patient has a copy of nextinfusion appointment and verbalizes understanding. All questions answered. documented in this [facility] Work Phone: 1(894) 257-227606-09-2022 History of Present illness Narrative* Nely Denney RN - 09/27/2021 11:00 AM EDT Patient arrived for keytruda infusion. Port accessed per protocol and labs previously drawn and within treatment parameters. Patient ready for infusion. 1247 Ordered treatment completed. Patient discharged without any issues. Patient has a copy of nextinfusion appointment and verbalizes understanding. All questions answered. documented in this [facility] Work Phone: 1(398) 816-874005-19-2022 History of Present illness Narrative* Catalina Hernández RN - 09/06/2021 11:00 AM EDT Arrival Note Infusion Patient is here for chemotherapy Labs were not ordered. Labs drawn at [facility] lab yesterday and to be scanned into media. 1242 Patient tolerated Keytruda infusion well. No IV related complications. Reviewed home going instructions. Patient understands s/sx adverse reaction or complication to report to MD office. Patientdenies questions or concerns. Pt given treatment schedule for September. documented in this [facility] Work Phone: [phone]) 615-868304-28-2022 History of Present illness Narrative* Catalina Hernández RN - 08/16/2021 11:00 AM EDT Arrival Note Infusion Patient is here for chemotherapy and lab draw Labs were drawn via port. Dr. Quiñonez called and would like a TSH drawn at visit today. TSH drawn and sent to lab. 1245 Patient tolerated Keytruda infusion well. No IV related complications. Reviewed home going instructions. Patient understands s/sx adverse reaction or complication to report to MD office. Patientdenies questions or concerns. Patient has May infusion appointment. documented in this [facility] Work Phone: 1([phone]) 183-530502-17-2022 History of Present illness Narrative* Catalina Hernández RN - 06/07/2021 1:07 PM EST Spoke with Kaity at Dr. Quiñonez's office. Pt will receive IV hydration while here today and will schedule for IV hydration Friday and next Friday. Proceeding with Keytruda today. She continues to have nausea daily, but there is no trend. She takes Zofran and then takes Compazine and Ativan if needed if that does not work. She feels she is getting better. Drinks at least 8 bottles of water a day. She does not eat as well due to nausea. She is having some dizziness a times. Dr. Quiñonez's office aware of elevated pulse rate. 1450 Patient tolerated Keytruda and IV hydration infusions well. No IV related complications. Reviewed home going instructions. Patient understands s/sx adverse reaction or complication to report to MD office. Patient denies questions or concerns. She has her next appointments. * Candice Key RN - 06/07/2021 11:36 AM EST Port still without blood return. Given cath meredith per protocol. * Candice Key RN - 06/07/2021 11:10 AM EST Pt here late. Appt was for 10 am. Port accessed with out blood return. Port flushed well. No redness or swelling noted. Pt repositioned and walked the halls. Port remained without blood return. documented in this [facility] Work Phone: 1(848) 590-618011-11-2021 History of Present illness Narrative* Catalina Hernández RN - 03/01/2021 10:00 AM EST Arrival Note Infusion Patient is here for Keytruda Labs were not ordered. Labs were drawn 02/28/21 at [facility]. Results scanned intomedia. 1158 Patient tolerated Keytruda infusion well. No IV related complications. Reviewed home going instructions. Patient understands s/sx adverse reaction or complication to report to MD office. Patientdenies questions or concerns. Patient notified that her glucose has been elevated on recent CMP results. Her PCP manages her blood sugar medications. She will call his office to discuss with him further. She states Dr. Quiñonez is reaching out to radiation oncology to see if they can treat area of progression. documented in this [facility] Work Phone: 1(782) 315-788810-21-2021 History of Present illness Narrative* Alka Romero RN - 02/08/2021 9:00 AM EDT Arrival Note Infusion Patient is here for chemotherapy Labs were drawn via port. 1023 Infusion completed and flushed with NS. No IV related complications. No s/sx rx, pt voices no c/o. Pt verbalizes understanding of s/sx adverse reaction or complication to report to MD office when at home. documented in this [facility] Work Phone: 1([phone]) 184-657009-09-2021 Hospital Discharge instructions* Instructions* Brenda Toussaint RN - 12/28/2020 Discharge Instructions: *Take your temperature every day. *CALL IF YOUR TEMPERATURE IN 100.4 F OR HIGHER, have shaking or chills, night sweats, or any other signs of infection or the flu. * Rinse mouth after each meal and at bedtime. Avoid mouth wash rinses with alcohol in them. May usesalt and baking soda solution (1/4 tsp baking soda, 1/8/tsp salt in 1 cup of warm water) and followwith plain water rinse. Call if any mouth sores or blisters or sore throat. * Call if you have unusual bruising or bleeding. *Call if any changes in your skin, especially rash or potential allergic reactions. * Call if any changes in vision or hearing. * Call if numbness or tingling in your hands or feet. * Call if nausea is not being managed well with antiemetics or if difficulty eating or keeping fooddown for 24 hours. Call if vomiting more than twice in 1 day. *Call if prolonged diarrhea- meaning 3 or more watery bowel movements per day for more than 3 days.Call if it causes severe cramping or pain, or has blood in it. * Call if constipation that is not being relieved by laxatives. Call if bloating, feeling less hungry, or extra stomach pains or cramps. * Call [facility] Infusion dept on weekdays 8 am -4:30 pm . If after office hours, weekends, or holidays, call the on-call doctor at . In an emergency, call 111. documented in this [facility] Work Phone: 1(222) 491-495409-09-2021 History of Present illness Narrative* Brenda Toussaint RN - 12/28/2020 9:00 AM EDT Arrival Note Infusion Patient is here for chemotherapy Labs were not ordered. Drawn yesterday. 1033 Ordered treatment completed. Patient discharged without any issues. Patient has a copy of next infusion appointment and verbalizes understanding. All questions answered. documented in this [facility] Work Phone: 1(256) 783-235109-08-2021 History of Present illness Narrative* Brenda Toussaint RN - 12/27/2020 1:00 PM EDT Arrival Note Infusion Patient is here for port flush and lab draw Labs were drawn via port. 1332 Ordered treatment completed. Patient discharged without any issues. Patient has a copy of next infusion appointment and verbalizes understanding. All questions answered. documented in this [facility] Work Phone: [phone]) 654-131408-30-2021 Hospital Discharge instructions* Instructions* Christal Cao RN - 12/18/2020 Implanted Port: What to Expect at Home Your Recovery You have had a procedure to implant a port. The port looks like a small bump under your skin. A thin, flexible tube called a catheter runs under the skin from the port into a large vein. You may have the port for weeks, months, or longer. You will be able to get medicine, blood, nutrients, or other fluids with more comfort. The port can be used right away. You will probably have some discomfort and bruising at the port site. This will go away in a few days. You may have strips of tape on the cut (incision) the doctor made, or the cut may have been closed with glue. It will be covered with a small bandage. This care sheet gives you a general idea about how long it will take for you to recover. But each person recovers at a different pace. Follow the steps below to feel better as quickly as possible. How can you care for yourself at home? Activity Avoid arm and upper body movements that may pull on the catheter. These movements include heavy weight lifting and vigorous use of your arms. No lifting over 5 pounds on the side with the port for 7 days. Check with your doctor as to when you may swim or exercise. You may drive 24 hours after the port placement. It's okay if the seat belt lays over the insertionsite. Medicines Your doctor will tell you if and when you can restart your medicines. He or she will also give you instructions about taking any new medicines. If you take blood thinners, such as warfarin (Coumadin), clopidogrel (Plavix), Apixaban (Eliquis), Dabigatran (Pradaxa), Rivaroxaban (Xarelto), or aspirin, be sure to talk to your doctor. He or she will tell you if and when to start taking those medicines again. Make sure that you understand exactly what your doctor wants you to do. Take pain medicines exactly as directed. If the doctor gave you a prescription medicine for pain, take it as prescribed. If you are not taking a prescription pain medicine, you may take Tylenol as directed. If you think your pain medicine is making you sick to your stomach: Take your medicine after meals (unless your doctor has told you not to). Ask your doctor for a different pain medicine. Incision care Remove the bandage the day after it has been placed to inspect the incision site. Replace with large bandaid or dressing. You will need to keep site clean & dry for 48 hours. After 48 hours days,you may shower and may wash the area with soap and water and pat it dry. Don't use hydrogen peroxide or alcohol, which can slow healing. You may cover the area with a gauze bandage if it weeps or rubs against clothing. Change the bandage every day for 7-10 days until healed. If you have strips of tape on the cut (incision) the doctor made, leave the tape on for a week or until it falls off. Use ice pack for the next 24 hours. On for 30 minutes, and off for 30 minutes. If you find relief with the use of the ice pack, you may continue to use it as needed. Other instructions Always carry the medical alert card that your doctor gives you. It contains information about your port. It will tell health care workers you have a port in case you need emergency care. Wear loose clothing over the port for the first 10 to 14 days. When getting dressed, be careful notto rub the port. Follow-up care is a alberts part of your treatment and safety. Be sure to make and go to all appointments, and call your doctor if you are having problems. It's also a good idea to know your test resultsand keep a list of the medicines you take. When should you call for help? Call 911 anytime you think you may need emergency care. For example, call if: You passed out (lost consciousness). You have severe trouble breathing. You have sudden chest pain and shortness of breath, or you cough up blood. Call your doctor now or seek immediate medical care if: You have signs of infection, such as: Increased pain, swelling, warmth, or redness near the port. Red streaks leading from the port. Pus draining from the port. A fever. You have pain or swelling in your neck or arm. You have trouble breathing or chest pain. Watch closely for changes in your health, and be sure to contact your doctor if: You have any problems with your port. You may call Special Procedures at with any questions or concerns about the port placement. After hours (before 7am or after 5 pm) call [phone] and ask for the Interventional Radiologist career consultant. Where can you learn more? Go to [email or web address] and sign in to your [employer] account. Enter M256 in the Search Health Information box to learn more about Implanted Port: What to Expect at Home. If you do not have an account, please click on the Sign Up Now link. Current as of: September 15, 2015 Content Version: 11.2 [id number] [employer]. Care instructions adapted under license by [employer]. If youhave questions about a medical condition or this instruction, always ask your healthcare professional. [employer], [facility] disclaims any warranty or liability for your use of this information. documented in this [employer] Work Phone: [phone] 138-121806-29-2021 History of Present illness Narrative* Madelyn Jones RN - 10/17/2020 3:45 PM EDT Pt arrived ambulatory as add on to schedule for peripheral lab draw. Pt seen in office by Dr Casper assessment completed. CBC diff, ESR, CMP, TSH with reflux, TIBC,Vit D drawn for right hand and sent to [facility]. Pt tolerated well. Pt discharged ambulatory documented in this [facility] Work Phone: [phone] History of Present illness Narrative* Wanda Read RN - 08/14/2020 1:00 PM EDT Arrival Note Infusion Patient is here for hydration Labs were not ordered. 1430- Ordered treatment completed. Patient discharged without any issues. All questions answered. documented in this [facility] Work Phone: [phone] 826-485304-22-2021 History of Present illness Narrative* Catalina Hernández RN - 08/10/2020 10:00 AM EDT Arrival Note Infusion Patient is here for chemotherapy Labs were not ordered. Labs were drawn 08/09/20 and are scanned into media. 1618 Patient tolerated Taxol and Carboplatin infusion well. No IV related complications. Reviewed home going instructions. Patient understands s/sx adverse reaction or complication to report to MD office. Patient denies questions or concerns. Patient is scheduled for IV hydration on Friday next week . documented in this [facility] Work Phone: Evaluation note* Diagnosis Endometrial cancer (HCC)- Primary Malignant neoplasm of corpus uteri, except isthmus documented in this encounter [facility] Work Phone: Evaluation note* Diagnosis Dehydration- Primary Endometrial cancer (HCC) Malignant neoplasm of corpus uteri, except isthmus documented in this encounter [facility] Work Phone: [phone] note* Diagnosis Shortness of breath Recurrent carcinoma of endometrium (HCC) Malignant neoplasm of corpus uteri, except isthmus Endometrial cancer (HCC) Malignant neoplasm of corpus uteri, except isthmus documented in this encounter [facility] Work Phone: [phone] note* Diagnosis Weakness Other malaise and fatigue Other specified abnormal findings of blood chemistry Chronic hypertension Body mass index (BMI) 35.0-35.9, adult documented in this encounter [facility] Work Phone: Evaluation note* Diagnosis Recurrent carcinoma of endometrium (HCC) Malignant neoplasm of corpus uteri, except isthmus Vaginal lesion Other specified noninflammatory disorder of vagina Regional lymph node metastasis present (HCC) Secondary and unspecified malignant neoplasm of lymph nodes, site unspecified documented in this encounter [facility] Work Phone: Evaluation note* Diagnosis Malignant neoplasm of endometrium (HCC) Malignant neoplasm of corpus uteri, except isthmus Endometrial cancer (HCC) Malignant neoplasm of corpus uteri, except isthmus Poor venous access Other specified circulatory system disorders documented in this encounter [facility] Work Phone: Evaluation note* Diagnosis Endometrial cancer (HCC)- Primary Malignant neoplasm of corpus uteri, except isthmus Dehydration Recurrent carcinoma of endometrium (HCC) Malignant neoplasm of corpus uteri, except isthmus documented in this encounter [facility] Work Phone: Evaluation note* Diagnosis Endometrial cancer (HCC)- Primary Malignant neoplasm of corpus uteri, except isthmus documented in this encounter [facility] Work Phone: [phone] note* Diagnosis Endometrial cancer (HCC)- Primary Malignant neoplasm of corpus uteri, except isthmus documented in this encounter [facility] Work Phone: Evaluation note* Diagnosis Endometrial cancer (HCC) Malignant neoplasm of corpus uteri, except isthmus documented in this encounter [facility] Work Phone: Evaluation note* Diagnosis Endometrial cancer (HCC)- Primary Malignant neoplasm of corpus uteri, except isthmus documented in this encounter [facility] Work Phone: Evaluation note* Diagnosis Endometrial cancer (HCC)- Primary Malignant neoplasm of corpus uteri, except isthmus Dehydration documented in this encounter [facility] Work Phone: Evaluation note* Diagnosis Endometrial cancer (HCC)- Primary Malignant neoplasm of corpus uteri, except isthmus documented in this encounter [facility] Work Phone: Evaluation note* Diagnosis Onset Date Resolution Status Recurrent carcinoma of endometrium acute Recurrent carcinoma of endometrium acute Recurrent carcinoma of endometrium acute Recurrent carcinoma of endometrium acute Recurrent carcinoma of endometrium acute Recurrent carcinoma of endometrium acute Recurrent carcinoma of endometrium acute [facility] Work Phone: Evaluation note* Diagnosis Endometrial cancer (HCC)- Primary Malignant neoplasm of corpus uteri, except isthmus documented in this encounter [facility] Work Phone: Evaluation note* Diagnosis Onset Date Resolution Status Recurrent carcinoma of endometrium acute Recurrent carcinoma of endometrium acute Recurrent carcinoma of endometrium acute Recurrent carcinoma of endometrium acute Recurrent carcinoma of endometrium acute Recurrent carcinoma of endometrium acute [facility] Work Phone: Evaluation note* Diagnosis Endometrial cancer (HCC)- Primary Malignant neoplasm of corpus uteri, except isthmus documented in this encounter [facility] Work Phone: Evaluation note* Diagnosis Onset Date Resolution Status Recurrent carcinoma of endometrium acute Recurrent carcinoma of endometrium acute [facility] Work Phone: Evaluation note* Diagnosis Endometrial cancer (HCC)- Primary Malignant neoplasm of corpus uteri, except isthmus Malignant neoplasm of endometrium (HCC) Malignant neoplasm of corpus uteri, except isthmus 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 of genital organs documented in this encounter [facility] Work Phone: Evaluation note* Diagnosis Malignant neoplasm of endometrium (HCC) Malignant neoplasm of corpus uteri, except isthmus 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 of 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) Malignant neoplasm of corpus uteri, except isthmus 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) documented in this encounter [facility] Work Phone: evaluation note* Diagnosis Endometrial cancer (HCC)- Primary Malignant neoplasm of corpus uteri, except isthmus documented in this encounter [facility] Work Phone: evaluation note* Diagnosis Onset Date Resolution Status Recurrent carcinoma of endometrium acute [facility] Work Phone: Evaluation note* Diagnosis Recurrent carcinoma of endometrium (HCC) Anxiety associated with cancer diagnosis (HCC) [facility] Cancer associated pain- Primary Neoplasm related pain (acute) (chronic) [facility] Diagnosis Recurrent carcinoma of endometrium (HCC) Anxiety associated with cancer diagnosis (HCC) Cancer associated pain Neoplasm related pain (acute) (chronic) [facility]* Diagnosis Recurrent carcinoma of endometrium (HCC)- Primary 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 Convalescence following radiotherapy Cancer associated pain Neoplasm related pain (acute) (chronic) Anxiety associated with cancer diagnosis (HCC) 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 lymph node metastasis present (HCC) Secondary and unspecified malignant neoplasm of lymph nodes, site unspecified Malignant neoplasm of endometrium (HCC) Malignant neoplasm of corpus uteri, except isthmus Personal history of irradiation Personal history of irradiation, presenting hazards to health Neoplasm related pain (acute) (chronic) [facility]* Diagnosis Post-operative state- Primary Other postprocedural status Malignant neoplasm of endometrium (HCC) Malignant neoplasm of corpus uteri, except isthmus Personal history of irradiation Personal history of irradiation, presenting hazards to health Neoplasm related pain (acute) (chronic) [facility]* Diagnosis Cancer associated pain Neoplasm related pain (acute) (chronic) [facility]* Diagnosis Cancer associated pain Neoplasm related pain (acute) (chronic) [facility]* Diagnosis Cancer associated pain Neoplasm related pain (acute) (chronic) Recurrent carcinoma of endometrium (HCC) Anxiety associated with cancer diagnosis (HCC) [facility] Cancer associated pain Neoplasm related pain (acute) (chronic) Recurrent carcinoma of endometrium (HCC) Anxiety associated with cancer diagnosis (HCC) [facility] Diagnosis Endometrial cancer (CMS/HCC) (HCC) Malignant neoplasm of corpus uteri, except isthmus [facility] Diagnosis Recurrent carcinoma of endometrium (HCC)- Primary S/P radiation therapy Convalescence following radiotherapy 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) Vulvar irritation Cancer associated pain Neoplasm related pain (acute) (chronic) [facility] noteNo assessment information available[facility] Work [facility]: [facility] note* Diagnosis Recurrent carcinoma of endometrium (HCC)- Primary 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 Convalescence following radiotherapy Cancer associated pain Neoplasm related pain (acute) (chronic) [facility] Diagnosis Recurrent carcinoma of endometrium (HCC) Anxiety associated with cancer diagnosis (HCC) Cancer associated pain Neoplasm related pain (acute) (chronic) [facility] Diagnosis Recurrent carcinoma of endometrium (HCC)- Primary 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 Convalescence following radiotherapy Cancer associated pain Neoplasm related pain (acute) (chronic) Vulvar ulcer Unspecified ulceration of vulva [facility] Diagnosis 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) S/P radiation therapy Convalescence following radiotherapy Vulvar ulcer Unspecified ulceration of vulva [facility] Diagnosis Recurrent carcinoma of endometrium (HCC) Anxiety associated with cancer diagnosis (HCC) Vulvar irritation [facility] Diagnosis S/P radiation therapy- Primary Convalescence following radiotherapy Vulvar ulcer Unspecified ulceration of vulva 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) [facility] Diagnosis Recurrent carcinoma of endometrium (HCC)- Primary 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) Vulvar irritation Vulvar ulcer Unspecified ulceration of vulva Cancer associated pain Neoplasm related pain (acute) (chronic) S/P radiation therapy Convalescence following radiotherapy Anxiety associated with cancer diagnosis (HCC) Endometrial cancer (CMS/HCC) (HCC) Malignant neoplasm of corpus uteri, except isthmus [facility] Diagnosis Vulvar ulcer- Primary Unspecified ulceration of vulva S/P radiation therapy Convalescence following radiotherapy 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) [facility]* Diagnosis Recurrent carcinoma of endometrium (HCC) Anxiety associated with cancer diagnosis (HCC) Cancer associated pain Neoplasm related pain (acute) (chronic) [facility] Diagnosis Recurrent carcinoma of endometrium (HCC) Anxiety associated with cancer diagnosis (HCC) Cancer associated pain Neoplasm related pain (acute) (chronic) [facility] Diagnosis Cancer associated pain Neoplasm related pain (acute) (chronic) [facility] Diagnosis Cancer associated pain- Primary Neoplasm related pain (acute) (chronic) [facility] Diagnosis Cancer associated pain Neoplasm related pain (acute) (chronic) Recurrent carcinoma of endometrium (HCC) Anxiety associated with cancer diagnosis (HCC) [facility] Diagnosis Recurrent carcinoma of endometrium (HCC) Anxiety associated with cancer diagnosis (HCC) [facility] Diagnosis Recurrent carcinoma of endometrium (HCC) 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 Convalescence following radiotherapy [facility] Diagnosis Cancer associated pain Neoplasm related pain (acute) (chronic) Recurrent carcinoma of endometrium (HCC) Anxiety associated with cancer diagnosis (HCC) [facility] Diagnosis Recurrent carcinoma of endometrium (HCC)- Primary 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) Anxiety associated with cancer diagnosis (HCC) [facility] Diagnosis 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 Endometrial cancer (CMS/HCC) (HCC) Malignant neoplasm of corpus uteri, except isthmus [facility] Diagnosis Recurrent carcinoma of endometrium (HCC) 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) Anxiety associated with cancer diagnosis (HCC) [facility] Diagnosis 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 Endometrial cancer (CMS/HCC) (HCC) Malignant neoplasm of corpus uteri, except isthmus [facility] Diagnosis 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 Endometrial cancer (CMS/HCC) (HCC) Malignant neoplasm of corpus uteri, except isthmus [facility] Diagnosis Recurrent carcinoma of endometrium (HCC) Anxiety associated with cancer diagnosis (HCC) Endometrial cancer (CMS/HCC) (HCC) Malignant neoplasm of corpus uteri, except isthmus Secondary malignancy of para-aortic lymph node (HCC) [facility] Diagnosis Recurrent carcinoma of endometrium (HCC) Anxiety associated with cancer diagnosis (HCC) Endometrial cancer (CMS/HCC) (HCC) Malignant neoplasm of corpus uteri, except isthmus Secondary malignancy of para-aortic lymph node (HCC) [facility] Diagnosis Endometrial cancer (CMS/HCC) (HCC) Malignant neoplasm of corpus uteri, except isthmus Secondary malignancy of para-aortic lymph node (HCC) [facility] Diagnosis Recurrent carcinoma of endometrium (HCC) Anxiety associated with cancer diagnosis (HCC) Endometrial cancer (CMS/HCC) (HCC) Malignant neoplasm of corpus uteri, except isthmus Secondary malignancy of para-aortic lymph node (HCC) [facility] Diagnosis Recurrent carcinoma of endometrium (HCC) Anxiety associated with cancer diagnosis (HCC) Endometrial cancer (CMS/HCC) (HCC) Malignant neoplasm of corpus uteri, except isthmus Secondary malignancy of para-aortic lymph node (HCC) [facility] Diagnosis Recurrent carcinoma of endometrium (HCC) Anxiety associated with cancer diagnosis (HCC) Endometrial cancer (CMS/HCC) (HCC) Malignant neoplasm of corpus uteri, except isthmus Secondary malignancy of para-aortic lymph node (HCC) [facility] Diagnosis Recurrent carcinoma of endometrium (HCC) Anxiety associated with cancer diagnosis (HCC) Endometrial cancer (CMS/HCC) (HCC) Malignant neoplasm of corpus uteri, except isthmus Secondary malignancy of para-aortic lymph node (HCC) [facility] Diagnosis Recurrent carcinoma of endometrium (HCC) Anxiety associated with cancer diagnosis (HCC) Endometrial cancer (CMS/HCC) (HCC) Malignant neoplasm of corpus uteri, except isthmus Secondary malignancy of para-aortic lymph node (HCC) [facility] Diagnosis Recurrent carcinoma of endometrium (HCC) Anxiety associated with cancer diagnosis (HCC) Endometrial cancer (CMS/HCC) (HCC) Malignant neoplasm of corpus uteri, except isthmus Secondary malignancy of para-aortic lymph node (HCC) [facility] Diagnosis Recurrent carcinoma of endometrium (HCC) Anxiety associated with cancer diagnosis (HCC) Endometrial cancer (CMS/HCC) (HCC) Malignant neoplasm of corpus uteri, except isthmus Secondary malignancy of para-aortic lymph node (HCC) [facility]* Diagnosis Nausea- Primary Nausea alone Recurrent carcinoma of endometrium (HCC) Anxiety associated with cancer diagnosis (HCC) Endometrial cancer (CMS/HCC) (HCC) Malignant neoplasm of corpus uteri, except isthmus Secondary malignancy of para-aortic lymph node (HCC) Cancer associated pain Neoplasm related pain (acute) (chronic) [facility] Diagnosis Recurrent carcinoma of endometrium (HCC) Anxiety associated with cancer diagnosis (HCC) Endometrial cancer (CMS/HCC) (HCC) Malignant neoplasm of corpus uteri, except isthmus Secondary malignancy of para-aortic lymph node (HCC) Malignant neoplasm of endometrium (HCC) Malignant neoplasm of corpus uteri, except isthmus 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) Secondary and unspecified malignant neoplasm of intra-abdominal lymph nodes [facility] Diagnosis Recurrent carcinoma of endometrium (HCC) Anxiety associated with cancer diagnosis (HCC) Endometrial cancer (CMS/HCC) (HCC) Malignant neoplasm of corpus uteri, except isthmus Secondary malignancy of para-aortic lymph node (HCC) Malignant neoplasm of endometrium (HCC) Malignant neoplasm of corpus uteri, except isthmus 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) Secondary and unspecified malignant neoplasm of intra-abdominal lymph nodes [facility] Diagnosis Recurrent carcinoma of endometrium (HCC) Anxiety associated with cancer diagnosis (HCC) Endometrial cancer (CMS/HCC) (HCC) Malignant neoplasm of corpus uteri, except isthmus Secondary malignancy of para-aortic lymph node (HCC) Malignant neoplasm of endometrium (HCC) Malignant neoplasm of corpus uteri, except isthmus 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) Secondary and unspecified malignant neoplasm of intra-abdominal lymph nodes [facility] Diagnosis Recurrent carcinoma of endometrium (HCC) Anxiety associated with cancer diagnosis (HCC) Endometrial cancer (CMS/HCC) (HCC) Malignant neoplasm of corpus uteri, except isthmus Secondary malignancy of para-aortic lymph node (HCC) Malignant neoplasm of endometrium (HCC) Malignant neoplasm of corpus uteri, except isthmus 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) Secondary and unspecified malignant neoplasm of intra-abdominal lymph nodes [facility] Diagnosis Cancer associated pain Neoplasm related pain (acute) (chronic) Malignant neoplasm of endometrium (HCC) Malignant neoplasm of corpus uteri, except isthmus 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) Secondary and unspecified malignant neoplasm of intra-abdominal lymph nodes [facility] Diagnosis Recurrent carcinoma of endometrium (HCC) Anxiety associated with cancer diagnosis (HCC) Malignant neoplasm of endometrium (HCC) Malignant neoplasm of corpus uteri, except isthmus 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) Secondary and unspecified malignant neoplasm of intra-abdominal lymph nodes [facility] Diagnosis Recurrent carcinoma of endometrium (HCC) Anxiety associated with cancer diagnosis (HCC) Malignant neoplasm of endometrium (HCC) Malignant neoplasm of corpus uteri, except isthmus 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) Secondary and unspecified malignant neoplasm of intra-abdominal lymph nodes [facility] Diagnosis Recurrent carcinoma of endometrium (HCC) Anxiety associated with cancer diagnosis (HCC) Malignant neoplasm of endometrium (HCC) Malignant neoplasm of corpus uteri, except isthmus 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) Secondary and unspecified malignant neoplasm of intra-abdominal lymph nodes [facility] Diagnosis Cancer related pain- Primary Malignant neoplasm of endometrium (HCC) Malignant neoplasm of corpus uteri, except isthmus 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) Secondary and unspecified malignant neoplasm of intra-abdominal lymph nodes [facility] Diagnosis Recurrent carcinoma of endometrium (HCC) Anxiety associated with cancer diagnosis (HCC) Malignant neoplasm of endometrium (HCC) Malignant neoplasm of corpus uteri, except isthmus 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) Secondary and unspecified malignant neoplasm of intra-abdominal lymph nodes [facility] Diagnosis Recurrent carcinoma of endometrium (HCC) Anxiety associated with cancer diagnosis (HCC) [facility] Diagnosis Recurrent carcinoma of endometrium (HCC) Anxiety associated with cancer diagnosis (HCC) Cancer associated pain Neoplasm related pain (acute) (chronic) Cancer related pain [facility] Diagnosis Neuropathy- Primary Mononeuritis of unspecified site Recurrent carcinoma of endometrium (HCC) Endometrial cancer (CMS/HCC) (HCC) Malignant neoplasm of corpus uteri, except isthmus Cancer associated pain Neoplasm related pain (acute) (chronic) Anxiety associated with cancer diagnosis (HCC) [facility] Diagnosis Post-operative state- Primary Other postprocedural status [facility]* Diagnosis Cancer related pain Recurrent carcinoma of endometrium (HCC) Anxiety associated with cancer diagnosis (HCC) [facility] Diagnosis Recurrent carcinoma of endometrium (HCC) Anxiety associated with cancer diagnosis (HCC) [facility] Diagnosis Recurrent carcinoma of endometrium (HCC) Anxiety associated with cancer diagnosis (HCC) [facility] Diagnosis Cancer related pain Recurrent carcinoma of endometrium (HCC) Anxiety associated with cancer diagnosis (HCC) [facility] Diagnosis Recurrent carcinoma of endometrium (HCC)- Primary Cancer related pain [facility] Diagnosis Cancer related pain [facility] Diagnosis Recurrent carcinoma of endometrium (HCC) Cancer related pain [facility] Diagnosis Recurrent carcinoma of endometrium (HCC)- Primary Cancer associated pain Neoplasm related pain (acute) (chronic) S/P radiation therapy Convalescence following radiotherapy 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) [facility] Diagnosis Cancer related pain [facility] Diagnosis Recurrent carcinoma of endometrium (HCC) Cancer related pain Anxiety associated with cancer diagnosis (HCC) [facility] Diagnosis Cancer related pain [facility]* Diagnosis Recurrent carcinoma of endometrium (HCC) Cancer related pain [facility] Diagnosis Cancer related pain [facility]* Diagnosis Current mild episode of major depressive disorder, unspecified whether recurrent (HCC)- Primary Recurrent carcinoma of endometrium (HCC) Cancer related pain Type 2 diabetes mellitus without complication, without long-term current use of insulin (CMS/HCC) (HCC) Cancer associated pain Neoplasm related pain (acute) (chronic) Hyperglycemia Other abnormal glucose [facility] Diagnosis Cancer related pain [facility]* Diagnosis Recurrent carcinoma of endometrium (HCC)- Primary Cancer related pain [facility] Diagnosis Cancer associated pain Neoplasm related pain (acute) (chronic) [facility] Diagnosis Cancer associated pain- Primary Neoplasm related pain (acute) (chronic) Recurrent carcinoma of endometrium (HCC) [facility] Diagnosis Cancer associated pain- Primary Neoplasm related pain (acute) (chronic) Endometrial cancer (CMS/HCC) (HCC) Malignant neoplasm of corpus uteri, except isthmus Anxiety associated with cancer diagnosis (HCC) [facility] Diagnosis Cancer associated pain- Primary Neoplasm related pain (acute) (chronic) [facility]* Diagnosis Recurrent carcinoma of endometrium (HCC)- Primary S/P radiation therapy Convalescence following radiotherapy Chemotherapy management, encounter for Vaginal lesion Other specified noninflammatory disorder of vagina Endometrial cancer (CMS/HCC) (HCC) Malignant neoplasm of corpus uteri, except isthmus Anxiety associated with cancer diagnosis (HCC) Cancer associated pain Neoplasm related pain (acute) (chronic) [facility] Diagnosis Other specified noninflammatory disorders of vagina Neoplasm related pain (acute) (chronic) Malignant neoplasm of endometrium (HCC) Malignant neoplasm of corpus uteri, except isthmus [facility]* Diagnosis Postoperative state- Primary Other postprocedural status Recurrent carcinoma of endometrium (HCC) 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) Urinary urgency Urgency of urination Anxiety associated with cancer diagnosis (HCC) Cancer associated pain Neoplasm related pain (acute) (chronic) [facility] Diagnosis 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 Neoplasm related pain (acute) (chronic) [facility] Diagnosis Cancer related pain [facility]* Diagnosis Recurrent carcinoma of endometrium (HCC) Anxiety associated with cancer diagnosis (HCC) Cancer related pain [facility] Diagnosis Recurrent carcinoma of endometrium (HCC) Anxiety associated with cancer diagnosis (HCC) Cancer related pain [facility]* Diagnosis Tooth pain- Primary Unspecified disorder of the teeth and supporting structures Recurrent carcinoma of endometrium (HCC) Cancer related pain Neuropathy Mononeuritis of unspecified site [facility]* Diagnosis Cancer related pain Recurrent carcinoma of endometrium (HCC) [facility]* Diagnosis Recurrent carcinoma of endometrium (HCC) Anxiety associated with cancer diagnosis (HCC) [facility]* Diagnosis 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 Neoplasm related pain (acute) (chronic) Cancer related pain [facility]* Diagnosis SOB (shortness of breath)- Primary Shortness of breath Recurrent carcinoma of endometrium (HCC) Anxiety associated with cancer diagnosis (HCC) Cancer associated pain Neoplasm related pain (acute) (chronic) Cancer related pain [facility] Diagnosis Recurrent carcinoma of endometrium (HCC) Anxiety associated with cancer diagnosis (HCC) Cancer related pain Cancer associated pain Neoplasm related pain (acute) (chronic) [facility] Diagnosis Cancer related pain [facility] Diagnosis Recurrent carcinoma of endometrium (HCC) Anxiety associated with cancer diagnosis (HCC) Cancer associated pain Neoplasm related pain (acute) (chronic) Cancer related pain [facility] Recurrent carcinoma of endometrium (HCC) Anxiety associated with cancer diagnosis (HCC) Cancer associated pain Neoplasm related pain (acute) (chronic) Cancer related pain [facility] Diagnosis Recurrent carcinoma of endometrium (HCC) Anxiety associated with cancer diagnosis (HCC) [facility] Attachments The following attachments cannot be sent through Care Everywhere. * [facility] (Congolese) [facility] Additional Instructions EKG normal chest x-ray normal labs stable. COVID, flu, RSV negative. Urine culture sent and you will be contacted if antibiotics were needed. Continue oral fluids for hydration. Use humidifier at home. Use medication to help with congestion. Follow-up with your doctor. [facility] Work Phone: Reason for referral (narrative)* Consultation (Routine) - Pending Review Specialty Diagnoses / Procedures Referred By Tere t Referred To Contact Wound Care Diagnoses Recurrent carcinoma of endometrium (HCC) S/P radiation therapy Vulvar ulcer Procedures SC OFFICE/OUTPATIENT [facility] 60-74 MINUTES Danny Sharma MD [address] [place] [address], [address] [place] [address] [facility] Op W[facility] Ostomy [address] [place] [address] Referral ID Status Reason Start Date Expiration Date Visits Requested Visits Authorized [id number] Pending Review Specialty Services Required 01/16/2023 01/16/2024 1 1 [facility] for referral (narrative)* Consultation (Routine) - Pending Review Specialty Diagnoses / Procedures Referred By Tere t Referred To Contact Wound Care Diagnoses Recurrent carcinoma of endometrium (HCC) S/P radiation therapy Vulvar ulcer Procedures SC OFFICE/OUTPATIENT [facility] 60-74 MINUTES Danny Sharma MD [address] [place] [address] [address] [place] [address] [facility] [address] Ostomy [address] [place] [address] Referral ID Status Reason Start Date Expiration Date Visits Requested Visits Authorized [id number] Pending Review Specialty Services Required 01/16/2023 01/16/2024 1 1 [facility] Consultation (Urgent) - Pending Review Specialty Diagnoses / Procedures Referred By Contac t Referred To Contact Palliative Medicine Diagnoses Recurrent carcinoma of endometrium (HCC) Endometrial cancer (CMS/HCC) (HCC) Procedures SC OFFICE/OUTPATIENT NEW [facility] 60 MINUTES Malinda Boone APRN - MEDICAL ASSISTANT SUPERVISOR [address] [place] [address] [facility] Cs Palliative [address] [place] [address] Referral ID Status Reason Start Date Expiration Date Visits Requested Visits Authorized [id number] Pending Review Specialty Services Required 08/26/2023 08/25/2024 1 1 Electronically signed by Malinda Boone THERMAL INTELLIGENCE ANALYST - MEDICAL ASSISTANT SUPERVISOR at 08/26/2023 3:44 PM EDT [facility] Consultation (Routine) - Pending Review Specialty Diagnoses / Procedures Referred By Contac t Referred To Contact Urology / Urogynecology Diagnoses Urinary urgency Procedures SC OFFICE/OUTPATIENT NEW [facility] 60-74 MINUTES Danyn Sharma MD [address] [place] [address] [facility] Urogyn [address] [place] [address] Referral ID Status Reason Start Date Expiration Date Visits Requested Visits Authorized [id number] Pending Review Specialty Services Required 06/13/2022 06/13/2023 1 1 [facility]No reason for referral information availableWSelect Medical [facility] Work Phone: Reason for visit Narrative* Treatment Plan (Routine) Status Reason Specialty Diagnoses / Procedures Referred By Contact Referred To Contact Authorized Diagnoses Endometrial cancer (HCC) Danny Sharma MD [address] [place] [address] [facility] [address] [place] [address] [employer] Work Phone: Reason for visit Narrative* Treatment Plan (Routine) Status Reason Specialty Diagnoses / Procedures Referred By Contact Referred To Contact Authorized Diagnoses Endometrial cancer (HCC) Dehydration Mirna Nixon PA [address] [place] [address] [facility] [address] [place] [address] [employer] Work Phone: Reason for visit Narrative* Treatment Plan (Routine) Status Reason Specialty Diagnoses / Procedures Referred By Contact Referred To Contact Pending Review Diagnoses Endometrial cancer (HCC) Dehydration Mirna Nixon PA [address] [place] [address] [facility] [address] [place] [address] [employer] Work Phone: Reason for visit Narrative* Treatment Plan and Therapy Plan (Routine) Status Reason Specialty Diagnoses / Procedures Referred By Contact Referred To Contact Authorized Diagnoses Endometrial cancer (HCC) Danny Sharma MD [address] [place] [address] [facility] [address] [place] [address] [employer] Work Phone: Reason for visit Narrative* Treatment Plan and Therapy Plan (Routine) - Authorized Specialty Diagnoses / Procedures Referred By Tere t Referred To Contact Diagnoses Endometrial cancer (HCC) Danny Sharma MD [address] [facility] [address] [place] [address] [facility] [address] [place] [address] Referral ID Status Reason Start Date Expiration Date V isits Requested Visits Authorized [id number] Authorized 12/27/2020 12/27/2021 1 1 [employer] Work Phone: Advance Directives No Advanced Directives Records FoundDocuments on File Type Date Recorded Patient Headrig Sawyer Expl anation Advance Directives and Living Will Power of Optical Goods Worker Latest Code Status on File Code Status Date Activated Date Inactivated Comments Full Code 01/19/2018 9:28 AM 01/19/2018 8:18 PM Documents on File Type Date Recorded Patient Headrig Sawyer Expl anation ACP-Advance Directive ACP-Power of Optical Goods Worker Latest Code Status on File Code Status Date Activated Date Inactivated Comments Full Code 12/09/2019 9:28 AM Full Code 01/19/2018 9:28 AM 01/19/2018 8:18 PM Latest Code Status on File Code Status Date Activated Date Inactivated Comments Full Code 12/09/2019 9:28 AM 12/09/2019 6:40 PM Documents on File Type Date Recorded Patient Headrig Sawyer Expl anation ACP-Advance Directive ACP-Power of Optical Goods Worker Latest Code Status on File Code Status Date Activated Date Inactivated Comments Full Code 12/09/2019 9:28 AM 12/09/2019 6:40 PM Full Code 01/19/2018 9:28 AM 01/19/2018 8:18 PM Advance Directive Response Recorded Date/ Time Advance Directives No May 05, 2014 10:18pm Living Will No April 16, 5:58am Power of Optical Goods Worker No April 16, 2021 5:58am Latest Code Status on File Code Status Date Activated Date Inactivated Comments Full Code 08/19/2022 6:50 AM 08/19/2022 1:29 PM Latest Code Status on File Code Status Date Activated Date Inactivated Comments Full Code 08/19/2022 6:50 AM 08/19/2022 1:29 PM Latest Code Status on File Code Status Date Activated Date Inactivated Comments Full Code 10/06/2023 9:45 AM 10/06/2023 5:38 PM Code Status History Code Status Date Activated Date Inactivated Comments Full Code 08/19/2022 6:50 AM 08/19/2022 1:29 PM Date Activated Date Inactivated Comments 10/06/2023 9:45 AM 10/06/2023 5:38 PM Date Activated Date Inactivated Comments 08/19/2022 6:50 AM 08/19/2022 1:29 PM Date Activated Date Inactivated Comments 10/06/2023 9:45 AM 10/06/2023 5:38 PM Date Activated Date Inactivated Comments 08/19/2022 6:50 AM 08/19/2022 1:29 PM Advance Directive Response Recorded Date/ Time Living Will No May 04 7:45am Do you have a Healthcare Power of Optical Goods Worker? No May 04, 2024 7:45am Living Will No March 22 3:53pm Do you have a Healthcare Power of Optical Goods Worker? No March 22, 2024 3:53pm Living Will No July 18, 2024 4:31pm Do you have a Healthcare Power of Optical Goods Worker? No July 18, 2024 4:31pm Advance Directives No May 05, 2014 10:18pm Advance Directive Response Recorded Date/ Time Living Will No May 04 7:45am Do you have a Healthcare Power of Optical Goods Worker? No May 04, 2024 7:45am Living Will No July 18, 2024 4:31pm Do you have a Healthcare Power of Optical Goods Worker? No July 18, 2024 4:31pm Advance Directives No May 05, 2014 10:18pm Advance Directive Response Recorded Date/ Time Living Will No July 18, 2024 4:31pm Do you have a Healthcare Power of Optical Goods Worker? No July 18, 2024 4:31pm Advance Directives No May 05, 2014 10:18pm Discharge Instructions * Instructions* Basia Ross RN - 12/03/2019 Please bring [facility] Information folder on the day of surgery. Please yong the last dose taken (date and time ) on your Daily Medications List provided in your After Visit Summary. Please bring a photo ID and insurance information TAKE the following medications the morning of your surgery - eye drops You may take your prescription pain medications. You may take Tylenol (Acetaminophen) if needed forpain. No Motrin, Ibuprofen, or Advil 24 hours prior to surgery, or longer if instructed by your surgeon. No Aleve or Naprosyn 3 days prior to surgery, or longer if instructed by your surgeon. If you are on BLOOD THINNERS or ASPIRIN - Hold Aspirin 5 days before surgery. Additional instructions - Follow all instructions given to you by Dr. Quiñonez. You will receive a reminder call the day before surgery with your Same Day Surgery arrival time. If you have specific questions, please call your surgeon. documented in this encounter* Instructions* Sarah Moreno MD - 12/09/2019 Please follow your post operative care instructions given to you by your Professor Of Early Childhood Education Oncologist's office at your pre operative visit. Please call the office with questions or concerns and be sure to follow up at your scheduled post operative visit. documented in this encounter* Instructions* Brenda Toussaint RN - 12/30/2019 Discharge Instructions: *Take your temperature every day. *CALL IF YOUR TEMPERATURE IN 100.4 F OR HIGHER, have shaking or chills, night sweats, or any other signs of infection or the flu. * Rinse mouth after each meal and at bedtime. Avoid mouth wash rinses with alcohol in them. May usesalt and baking soda solution (1/4 tsp baking soda, 1/8/tsp salt in 1 cup of warm water) and followwith plain water rinse. Call if any mouth sores or blisters or sore throat. * Call if you have unusual bruising or bleeding. *Call if any changes in your skin, especially rash or potential allergic reactions. * Call if any changes in vision or hearing. * Call if numbness or tingling in your hands or feet. * Call if nausea is not being managed well with antiemetics or if difficulty eating or keeping fooddown for 24 hours. Call if vomiting more than twice in 1 day. *Call if prolonged diarrhea- meaning 3 or more watery bowel movements per day for more than 3 days.Call if it causes severe cramping or pain, or has blood in it. * Call if constipation that is not being relieved by laxatives. Call if bloating, feeling less hungry, or extra stomach pains or cramps. * Call Dr. Quiñonez's office. In an emergency, call 911. documented in this encounter History of Present Illness * Melany Varghese RN - 12/09/2019 4:25 PM EDT Discharge instructions reviewed with patient and sister, verbalized understanding of discharge teaching. Pt. walked to and from bathroom, tolerated well, voided. Ate crackers and drank william akin, noc/o nausea. PIV removed. * Mignon Cortez RN - 12/09/2019 1:06 PM EDT Patient arrived and ID verified. Vital signs stable. Call light in reach. documented in this encounter* Brenda Toussaint RN - 12/30/2019 8:00 AM EDT Arrival Note Patient is here for chemotherapy. Labs were drawn via peripheral IV. 1000 Message sent to Klarissa Romero regarding financial concerns. 1300 At 1241 pt states feeling car sick, queasy and watery mouth. Taxol stopped. At 1251 100 mg solu-cortef given. 1257 pt states symptoms resolving. See flowsheet for vital signs. 1330 Call to Tere at Dr. Quiñonez's office regarding reaction to taxol. Unavailable at this time. Awaiting a return call with further orders on how to proceed. 1345 Spoke with Mirna from Dr. Quiñonez's office. States okay to restart Taxol and requests update on pt tolerance. 1645 Ordered treatment completed. Patient discharged without any issues. Patient has a copy of next infusion appointment and verbalizes understanding. All questions answered. documented in this encounter* Brenda Toussaint RN - 02/10/2020 8:30 AM EDT Arrival Note Patient is here for chemotherapy. Labs were not ordered. Drawn prior to visit. 1622 Ordered treatment completed. Patient discharged without any issues. Patient has a copy of next infusion appointment and verbalizes understanding. All questions answered. documented in this encounter* Wanda Read RN - 03/23/2020 9:00 AM EST Arrival Note Patient is here for chemotherapy. Labs were not ordered, drawn previously. 1535-Ordered treatment completed. Patient discharged without any issues. Patient has a copy of nextinfusion appointment and verbalizes understanding. All questions answered. documented in this encounter* Wanda Read RN - 04/19/2020 9:00 AM EST Arrival Note Patient is here for chemotherapy. Labs were drawn via peripheral IV. 1630- Ordered treatment completed. Patient discharged without any issues. Patient had last chemotherapy order appointment today, pt to follow up with Dr Quiñonez for scans and appointment and verbalizes understanding. All questions answered. documented in this encounter* Brenda Toussaint RN - 01/20/2020 10:00 AM EDT Arrival Note Patient is here for chemotherapy. Labs were drawn via peripheral IV. 1215 Taxol up and running as ordered. Pt educated on signs and symptoms of a reaction. States is feelingwell, no concerns at this time. 1613 Ordered treatment completed. Pt states feeling well at this time. Patient discharged without any issues. Patient has a copy of next infusion appointment and verbalizes understanding. All questions answered. documented in this encounter* Emilee Walker RN - 06/29/2020 4:40 PM EST Ordered treatment completed. Patient discharged without any issues. Patient has a copy of next infusion appointment and verbalizes understanding. All questions answered. * Emilee Walker RN - 06/29/2020 10:00 AM EST Patient here for chemotherapy, labs drawn 06/28/20. Patient resuming chemotherapy for 3 more cycles,last treatment 04/19/20. documented in this encounter* Brenda Toussaint RN - 03/02/2020 9:00 AM EST Arrival Note Patient is here for chemotherapy. Labs were not ordered. Drawn prior to treatment. 1410 Pt complaining of medicinal/burning taste in mouth. Spoke with pharmacy. Pt advised taxol can causethis symptom and was given ice chips to alleviate. Pt told to monitor for tongue/facial numbness. 1552 Ordered treatment completed. Patient discharged without any issues. Patient has a copy of next infusion appointment and verbalizes understanding. All questions answered. documented in this encounter* Catalina Hernández RN - 07/20/2020 9:00 AM EDT Arrival Note Patient is here for chemotherapy. Labs were not ordered. Labs drawn 07/19/20 in media. 1605 Patient tolerated Taxol/ Carboplatin infusion well. No IV related complications. Reviewed homegoing instructions. Patient understands s/sx adverse reaction or complication to report to MD office. Patient denies questions or concerns. documented in this encounter Assessments Diagnosis S/P laparoscopy Other postprocedural status Secondary malignancy of para-aortic lymph node (HCC) Diagnosis Endometrial cancer (HCC) Malignant neoplasm of corpus uteri, except isthmus Diagnosis Encounter for chemotherapy management Diagnosis Endometrial cancer (HCC)- Primary Malignant neoplasm of corpus uteri, except isthmus Diagnosis Malignant neoplasm of endometrium (HCC) Malignant neoplasm of corpus uteri, except isthmus Diagnosis Endometrial cancer (HCC)- Primary Malignant neoplasm of corpus uteri, except isthmus Secondary malignancy of para-aortic lymph node (HCC) Reason for Referral Status Reason Specialty Diagnoses / Procedures Referre d By Contact Referred To Contact [facility] Radiology Diagnoses Shortness of breath Recurrent carcinoma of endometrium (HCC) Procedures CTA CHEST W WO CONTRAST Danny Sharma MD [address] [facility] [place] [address] Status Reason Specialty Diagnoses / Procedures Referre d By Contact Referred To Contact Open Radiology Diagnoses Recurrent carcinoma of endometrium (HCC) Vaginal lesion Regional lymph node metastasis present (HCC) Procedures PET CT Skull Base To Mid Thigh Danny Sharma MD [address] [facility] [place] [address] Status Reason Specialty Diagnoses / Procedures Referre d By Contact Referred To Contact Open Radiology Diagnoses Endometrial cancer (HCC) Poor venous access Procedures XA SPECIAL ANGIOGRAPHY PROCEDURE Mirna Nixon PA [address] [facility] [address] [place] [address] Status Reason Specialty Diagnoses / Procedures Referre d By Contact Referred To Contact Open Radiology Diagnoses Endometrial cancer (HCC) Procedures PET CT Skull Base To Mid Thigh Mirna Nixon PA [address] [facility] [address] [place] [address] Specialty Diagnoses / Procedures Referred By Contac t Referred To Contact Radiology Diagnoses Recurrent carcinoma of endometrium (HCC) 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) Procedures MRI Pelvis W WO Contrast Danny Sharma MD [address] [facility] [place] [address] Referral ID Status Reason Start Date Expiration Date Visits Re quested Visits Authorized [id number] Closed 09/27/2021 09/27/2022 1 1 Specialty Diagnoses / Procedures Referred By Contac t Referred To Contact Radiology Diagnoses 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) Procedures PET/CT skull base to mid thigh Danny Sharma MD [address] [facility] [place] [address] Referral ID Status Reason Start Date Expiration Date V isits Requested Visits Authorized [id number] Pending Review 08/15/2022 02/11/2023 1 1 Specialty Diagnoses / Procedures Referred By Contac t Referred To Contact Diagnoses Vulvar irritation Salome Sofia, THERMAL INTELLIGENCE ANALYST - MEDICAL ASSISTANT SUPERVISOR [address] [facility] [address] [place] [address] Referral ID Status Reason Start Date Expiration Date V isits Requested Visits Authorized [id number] Pending Review 1 1 Specialty Diagnoses / Procedures Referred By Contac t Referred To Contact Radiology Diagnoses Recurrent carcinoma of endometrium (HCC) 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 Procedures PET/CT skull base to mid thigh Danny Sharma MD [address] [place] [address] [address] Referral ID Status Reason Start Date Expiration Date Visits Re quested Visits Authorized [id number] Closed 02/13/2023 02/13/2024 1 1 Referral ID Status Reason Start Date Expiration Date V isits Requested Visits Authorized [id number] Pending Review 1 1 Specialty Diagnoses / Procedures Referred By Contac t Referred To Contact Radiology Diagnoses Recurrent carcinoma of endometrium (HCC) Procedures PET/CT skull base to mid thigh Danny Sharma MD [address] [place] [address] Referral ID Status Reason Start Date Expiration Date V isits Requested Visits Authorized [id number] Pending Review 01/29/2024 01/28/2025 1 1 Summary Purpose Family History No Family History Records Found Relationship Condition Age at Onset Recorded Date/T mukesh father Malignant neoplasm of colon Unknown Cardiac disease Unknown Hypertension Unknown Cerebrovascular accident (CVA) Unknown mother Cardiac disease Unknown Chief Complaint and Reason for Visit Chief Complaint CONSULT RECURRENT EN DOMETRIAL CANCER/ DR MORTENSEN LAB S/O gu otv otv LAB S/O otv otv otv otv ABDOMEN CA Amb Documentation LAB S/O LAB S/O FOLLOWUP ENDOMETRIAL Reason for Visit Recurrent carcinoma of endometrium Recurrent carcinoma of endometrium Recurrent carcinoma of endometrium Recurrent carcinoma of endometrium Recurrent carcinoma of endometrium Recurrent carcinoma of endometrium Recurrent carcinoma of endometrium Chief Complaint otv otv LAB S/O otv otv otv otv ABDOMEN CA Amb Documentation LAB S/O LAB S/O FOLLOWUP ENDOMETRIAL LAB S/O Reason for Visit Recurrent carcinoma of endometrium Recurrent carcinoma of endometrium Recurrent carcinoma of endometrium Recurrent carcinoma of endometrium Recurrent carcinoma of endometrium Recurrent carcinoma of endometrium Chief Complaint otv otv ABDOMEN CA Amb Documentation LAB S/O LAB S/O FOLLOWUP ENDOMETRIAL LAB S/O LAB S/O Reason for Visit Recurrent carcinoma of endometrium Recurrent carcinoma of endometrium Chief Complaint LAB S/O FOLLOWUP ENDOMETRIAL LAB S/O LAB S/O LAB S/O Reason for Visit Recurrent carcinoma of endometrium Chief Complaint LAB S/O LAB S/O F/U - VAGINAL LESION LAB S/O Reason for Visit Recurrent carcinoma of endometrium Chief Complaint LAB S/O F/U - VAGINAL LESION LAB S/O LAB S/O Reason for Visit Recurrent carcinoma of endometrium Chief Complaint e order Chief Complaint e order SOB Shortness of breath Chief Complaint Admit Date WEAKNESS March 22, 2024 1 2:44pm general illness May 04, 2024 6 :45am GENERAL ILLNESS, SOB July 18, 2024 4: 12pm Chief Complaint Admit Date general illness May 04, 2024 6 :45am GENERAL ILLNESS, SOB July 18, 2024 4: 12pm E-ORDER August 05, 2024 11: 21am Chief Complaint Admit Date GENERAL ILLNESS, SOB July 18, 2024 4: 12pm E-ORDER August 05, 2024 11: 21am E-ORDER August 19, 2024 11:35a m EORDERS September 01, 2024 11:46 am Additional Source Comments Reason for Visit (unrecogniz ed section and content) Status Reason Specialty Diagnoses / Procedures Referred By Contact Referred To Contact Authorized Diagnoses Endometrial cancer (HCC) Danny Sharma MD [address] [facility] [place] [address] [facility] [address] [place] [address] Specialty Diagnoses / Procedures Referred By Tere lopes Referred To Contact Radiology Diagnoses Recurrent carcinoma of endometrium (HCC) 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 [facility] [place] [id number] Referral ID Status Reason Start Date Expiration Date Visits Re quested Visits Authorized [id number] Closed 09/27/2021 09/27/2022 1 1 Reason Onset Date Comments Other 07/22/2022 PT called to get her prescription refilled Reason Comments Endometrial Cancer Follow-up Pain in right side o f labia Specialty Diagnoses / Procedures Referred By Tere lopes Referred To Contact Diagnoses Malignant neoplasm of endometrium (HCC) Personal history of irradiation Neoplasm related pain (acute) (chronic) Malignant neoplasm of endometrium (HCC) [C54.1] Personal history of irradiation [Z92.3] 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 [facility] [place] [address] [facility] [address] [place] [address] Referral ID Status Reason Start Date Expiration Date Visits Re quested Visits Authorized [id number] 1 1 Reason Onset Date Comments Med Refill 10/15/2022 oxyCODONE (Roxic odone) Reason Onset Date Comments Reschedule 10/15/2022 Appt 10/31 Reason Comments Endometrial Cancer Reason Comments Endometrial Cancer 1 month follow upPt complains of soreness Reason Comments Wound Care Specialty Diagnoses / Procedures Referred By Tere lopes Referred To Contact Wound Care Diagnoses Recurrent carcinoma of endometrium (HCC) S/P radiation therapy Vulvar ulcer Procedures SC OFFICE/OUTPATIENT NEW HIGH MDM 60-74 MINUTES Danny Sharma MD [address] [place] [address] [facility] [address] [place] [address] Referral ID Status Reason Start Date Expiration Date Visits Requested Visits Authorized [id number] Pending Review Specialty Services Required 01/16/2023 01/16/2024 1 1 Reason Comments Wound Care Reason Comments Endometrial Cancer Reason Onset Date Comments Med Refill 03/17/2023 Reason Onset Date Comments Med Refill 04/04/2023 Specialty Diagnoses / Procedures Referred By Tere t Referred To Contact Radiology Diagnoses Recurrent carcinoma of endometrium (HCC) 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 Procedures PET/CT skull base to mid thigh Danny Sharma MD [address] [facility] [address] [address] [place] [address] [facility] [address] [place] [address] Referral ID Status Reason Start Date Expiration Date Visits Re quested Visits Authorized [id number] Closed 02/13/2023 02/13/2024 1 1 Reason Onset Date Comments Med Refill 04/04/2023 Reason Comments Endometrial Cancer Itching and soreness Reason Onset Date Comments Med Refill 05/13/2023 Reason Onset Date Comments Other 08/29/2023 Reason Onset Date Comments surgery scheduling 09/01/2023 Scheduled at [facility] Reason Onset Date Comments Med Refill 09/30/2023 Specialty Diagnoses / Procedures Referred By Tere t Referred To Contact Diagnoses Malignant neoplasm of endometrium (HCC) 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) Procedures SC HYSTEROSCOPY BX ENDOMETRIUM&/POLYPC W/WO D&C SC VAGINECTOMY PARTIAL REMOVAL VAGINAL WALL SIMPLE PARTIAL VAGINECTOMY [facility] [address] [facility] [address] [place] [address] Referral ID Status Reason Start Date Expiration Date Visits Re quested Visits Authorized [id number] 1 1 Reason Comments Pain Fatigue Shortness of Breath Depression Anxiety Constipation Specialty Diagnoses / Procedures Referred By Tere lopes Referred To Contact Palliative Medicine Diagnoses Recurrent carcinoma of endometrium (HCC) Endometrial cancer (CMS/HCC) (HCC) Procedures SC OFFICE/OUTPATIENT NEW HIGH MDM 60 MINUTES Malinda Boone, THERMAL INTELLIGENCE ANALYST - MEDICAL ASSISTANT SUPERVISOR [address] [place] [address] [facility] [address] [place] [address] Referral ID Status Reason Start Date Expiration Date Visits Requested Visits Authorized [id number] Pending Review Specialty Services Required 08/26/2023 08/25/2024 1 1 Reason Comments Follow-up Reason Onset Date Comments Med Refill 11/05/2023 Reason Onset Date Comments Med Management 10/21/2023 oxyCODONE (Roxic odone) 5 MG immediate release tablet Reason Onset Date Comments Med Refill 11/25/2023 Reason Onset Date Comments Med Refill 12/12/2023 Reason Onset Date Comments Med Refill 12/30/2023 Reason Onset Date Comments Med Refill 01/19/2024 Reason Comments Endometrial Cancer Follow-up Reason Onset Date Comments Med Refill 02/02/2024 Reason Onset Date Comments Med Refill 02/09/2024 Reason Onset Date Comments Med Refill 02/17/2024 Reason Onset Date Comments Med Refill 02/23/2024 Reason Onset Date Comments Med Refill 03/08/2024 Reason Comments Pain Joint and bone pain Fatigue Anxiety Depression Shortness of Breath Constipation Reason Onset Date Comments Med Refill 03/15/2024 Reason Onset Date Comments Med Refill 03/29/2024 Reason Onset Date Comments Results 04/23/2022 Reason Onset Date Comments Med Refill 04/29/2022 Reason Comments Endometrial Cancer Follow-up Results Reason Onset Date Comments surgery scheduling 05/24/2022 Scheduled at [facility] Reason Comments Post-op Visit Reason Comments Med Refill Reason Onset Date Comments Test Scheduling 03/21/2024 Reason Onset Date Comments Med Refill 04/28/2024 Reason Comments Pain States her bones jonnathan t. Lower back and leg pain. Fatigue Depression Anxiety Shortness of Breath Reason Onset Date Comments Med Refill 05/18/2024 Reason Comments Anxiety Fatigue Shortness of Breath Reason Onset Date Comments Med Refill 05/31/2024 Reason Onset Date Comments Med Refill 06/07/2024 Reason Onset Date Comments Med Refill 06/28/2024 Reason Comments Pain Fatigue Depression Anxiety Shortness of Breath Reason Onset Date Comments Med Refill 07/15/2024 Reason Onset Date Comments Med Refill 08/09/2024 Reason Onset Date Comments Med Refill 08/17/2024 Reason Onset Date Comments Med Refill 08/26/2024 Reason Onset Date Comments Med Refill 09/14/2024 Reason Onset Date Comments Med Refill 10/01/2024 Reason Onset Date Comments Med Refill 10/13/2024 Continuous Active and Recently Administ ered Medications (unrecognized section and content) Medication Order 12/16/2020 12/17/2020 12/18/2020 0.9 % sodium chloride infusion IntraVENous, at 50 mL/hr, CONTINUOUS, Starting on Fri12/18/20 at 1130, Pre-op (day of surgery) 1130 (Due) PRN Medication Order 12/16/2020 12/17/2020 12/18/2020 ceFAZolin (ANCEF) 1000 mg in dextrose 5 % 50 mL IVPB (premix) (COMPLETED) CONTINUOUS PRN, Starting on Fri12/18/20 at 1331, Until Fri12/18/20 at 1331 1331 (New Bag - Prov ider: Christal Cao RN) fentaNYL (SUBLIMAZE) injection (COMPLETED) ONCE PRN, Starting on Fri12/18/20 at 1331, For 1 dose 1331 (Given - Provid er: Christal Cao RN) fentaNYL (SUBLIMAZE) injection (COMPLETED) ONCE PRN, Starting on Fri12/18/20 at 1340, For 1 dose 1340 (Given - Provid er: Christal Cao RN) midazolam (VERSED) injection (COMPLETED) ONCE PRN, Starting on Fri12/18/20 at 1331, For 1 dose 1331 (Given - Provid er: Christal Cao RN) midazolam (VERSED) injection (COMPLETED) ONCE PRN, Starting on Fri12/18/20 at 1340, For 1 dose 1340 (Given - Provid er: Christal Cao RN) Scheduled Medication Order 08/17/2022 08/18/2022 08/19/2022 acetaminophen (Tylenol) tablet 1,000 mg (COMPLETED) 1,000 mg, Oral, Once, On Fri08/19/22 at 0700, For 1 dose, Preprocedure, Maximum dose of acetaminophen is 4000 mg from all sources in 24 hours. Do not administer if patient has taken tylenol <4 hours earlier. Do not give if contraindicated ie. patient has active liver disease or cirrhosis. 711 (Given - Provid er: Magi Acosta RN) ceFAZolin in dextrose 4% (Ancef) IVPB 2,000 mg (COMPLETED) 2,000 mg, IntraVENous, Administer over 30 Minutes, Lead Recreation Assistant to O.R., On Fri08/19/22 at 0700, For 1 dose, Preprocedure, Administer within 1 hour prior to incision. premix bag, Suspected Indication (Select all that apply): Surgical Prophylaxis 824 (Given - Provid er: Yong Price, THERMAL INTELLIGENCE ANALYST - MASTER DYER) famotidine (Pepcid) tablet 20 mg (COMPLETED) 20 mg, Oral, Once, On Fri08/19/22 at 0700, For 1 dose, Preprocedure 712 (Given - Provid er: Magi Acosta RN) gabapentin (Neurontin) capsule 100 mg (COMPLETED) 100 mg, Oral, Once, On Fri08/19/22 at 0700, For 1 dose, Preprocedure, For Age >69 or Low GFR. 711 (Given - Provid er: Magi Acosta RN) Nozin Nasal Family Physician Popswab 2 Swab (COMPLETED) 2 Swab (1 Package), Topical, Once, On Fri08/19/22 at 0700, For 1 dose, Preprocedure, Flip ampule around in paper sleeve to expose swab tip. Shake well. With sleeve on ampule, crush at dot to pop. Squeeze to wet swab tip. Swab around nostril rims 8 times in each direction. Squeeze to rewet swab tip and repeat. Repeat for other nostril. Caution : Do not extend in nose beyond swab tip. Appy to skin only. Discard after use. 07 (Given - Provid er: Magi Acosta RN) sodium chloride 0.9% (NS) flush 10 mL 10 mL, IntraVENous, Every 12 hours scheduled (2 times per day), First dose on Fri08/19/22 at 0915, Recovery (only) 0915 (Canceled Entry - Provider: Automatic Discharge Provider - Comment: Automatically canceled at discontinue of medication order) sodium chloride 0.9% (NS) flush 5-40 mL 5-40 mL, IntraVENous, Every 12 hours, First dose on Fri08/19/22 at 0700, Preprocedure, For Line Patency: Peripheral IV = 5 mL; Midline or Central Line = 10 mL/lumen. If following IV push medication, administer flush at same rate as the IV push. Flush volume is determined by type of infusion therapy being given. For non-viscous solutions use: Peripheral IV = 5 mL Midline or Central Line = 10 mL/lumen For viscous solutions (i.e. blood components, parenteral nutrition, contrast media, or after obtaining blood sample) use: Peripheral IV = 10 mL Midline or Central Line = 20 mL/lumen 0700 (Canceled Entry - Provider: Automatic Discharge Provider - Comment: Automatically canceled at discontinue of medication order) Continuous Medication Order 08/17/2022 08/18/2022 08/19/2022 lactated Ringer's (LR) infusion 50 mL/hr, IntraVENous, Continuous, Starting on Fri08/19/22 at 0700, Preprocedure, Upon admission to sameday - please start iv if patient does not have iv access. Use 500ml NS for patients on dialysis. 0810 (New Bag - Prov ider: MERRICK Sullivan CRNA)0913 (Paused - Provider: MERRICK Sullivan CRNA - Comment: Switch to gravity)0914 (Restarted - Provider: MERRICK Sullivan CRNA) lactated ringers infusion 125 mL/hr, IntraVENous, Continuous, Starting on Fri08/19/22 at 0915, Recovery (only) 0915 (Canceled Entry - Provider: Automatic Discharge Provider - Comment: Automatically canceled at discontinue of medication order) PRN Medication Order 08/17/2022 08/18/2022 08/19/2022 ALPRAZolam (Xanax) disintegrating tablet 0.25 mg (COMPLETED) 0.25 mg, Oral, PRN, anxiety, Starting on Fri08/19/22 at 0650, For 1 dose, Preprocedure, Using dry hands, place tablet on top of tongue and allow to disintegrate. Administration with water is not necessary. 0712 (Given - Provid er: Magi Acosta RN) bacitracin ointment (CANCELED) As needed, Starting on Fri08/19/22 at 0905, Intraprocedure 0905 (Given - Provid er: Danny Sharma MD - Comment: eric) dextrose 5 % infusion 100 mL/hr, IntraVENous, PRN, Blood sugar less than 70mg/dL, Starting on Fri08/19/22 at 0650, Preprocedure, Start infusion following administration of dextrose 50% or glucagon. dextrose 50 % solution 12.5 g 12.5 g, IntraVENous, PRN, low blood sugar, Blood glucose less than 70 mg/dL and patient NOT ALERT or NPO., Starting on Fri08/19/22 at 0650, Preprocedure, If patient does not respond within 5 minutes, repeat dose x1. Start D5W at 100 mL/hour until ordering provider can be reached. Repeat blood glucose in 15 minutes. If blood glucose is less than 70 mg/dL, repeat treatment and recheck blood glucose in 15 minutes x2. If using Glucostabilizer, dose as instructed per system. diphenhydrAMINE (BENADryl) injection 12.5 mg 12.5 mg, IntraVENous, Once PRN, itching, Starting on Fri08/19/22 at 0910, For 1 dose, Recovery (only) fentaNYL (Sublimaze) injection 25 mcg 25 mcg, IntraVENous, Every 5 min PRN, moderate pain (4-6), Starting on Fri08/19/22 at 0910, For 3 doses, Recovery (only), Phase I and Phase II- Initial therapy for moderate pain (4-6). Restricted to a 90 minute time frame starting when the patient can verbally state their pain score. If after 2 doses the pain score does not decrease by more than one point, then call the provider. If oral meds are utilized, do not return to initial therapy medications. fentaNYL (Sublimaze) injection 50 mcg 50 mcg, IntraVENous, Every 5 min PRN, severe pain (7-10), Starting on Fri08/19/22 at 0910, For 3 doses, Recovery (only), Phase I and Phase II- Initial therapy for severe pain (7-10). Restricted to a 90 minute time frame starting when the patient can verbally state their pain score. If after 2 doses the pain score does not decrease by more than one point, then call the provider. If oral meds are utilized, do not return to initial therapy medications. glucagon (human recombinant) injection 1 mg 1 mg, IntraMUSCular, PRN, low blood sugar, Blood glucose less than 70 mg/dL and patient NOT ALERT or NPO and does not have IV access., Starting on Fri08/19/22 at 0650, Preprocedure, After administration, attempt intravenous access and start D5W at 100 mL/hr. Repeat blood glucose in 15 minutes x2 and notify provider. glucose oral gel 15 g 15 g, Oral, As needed, low blood sugar, Starting on Fri08/19/22 at 0650, Preprocedure, If blood glucose less than 50 mg/dL and patient ALERT and NOT NPO, give 2 tubes glucose gel. If blood glucose less than 70 mg/dL and patient ALERT and NOT NPO, give 1 tube glucose gel. Repeat blood glucose in 15 minutes. If blood glucose is less than 70 mg/dL, repeat treatment and recheck blood glucose in 15 minutes x2 and notify provider. hydrALAZINE (Apresoline) injection 5 mg(Linked Group 1) 5 mg, IntraVENous, Every 15 min PRN, high blood pressure, for SBP greater than 160 mmHg for 2 consecutive measurements taken from different sites, Starting on Fri08/19/22 at 0910, For 2 doses, Recovery (only), PRN for SBP > 160 for 2 consecutive measurements, and if one of the following conditions is met: 1) If IV labetolol is ineffective. 2) If HR is under 60. 3) If patient has heart block, COPD or asthma. If both labetalol and hydralazine ineffective, notify anesthesia provider. Insulin Lispro (Humalog) injection 0-12 Units 0-12 Units, SubCUTAneous, PRN, high blood sugar, Surgery patient, Starting on Fri08/19/22 at 0650, For 3 doses, Preprocedure, Corrective Low Dose Algorithm Glucose: Dose: 70-180 No Insulin 181-240 4 Unit 241-300 6 Units 301-350 8 Units 351-400 10 Units Over 400 12 Units and notify physician labetalol (Normodyne,Trandate) injection 5 mg(Linked Group 1) 5 mg, IntraVENous, Every 10 min PRN, high blood pressure, for SBP greater than 160 mmHg for 2 consecutive measurements taken from different sites., Starting on Fri08/19/22 at 0910, For 2 doses, Recovery (only), PRN for SBP >160 for 2 consecutive measurements, if HR is 60 or greater. If beta vinay is contraindicated (HR less than 60, heart block, COPD or asthma) use hydralazine IV order. lidocaine-EPINEPHrine (Xylocaine W/EPI) 1 %-1:051510 injection (CANCELED) As needed, Starting on Fri08/19/22 at 0840, Intraprocedure 0840 (Given - Provid er: Danny Sharma MD - Comment: vagina) LORazepam (Ativan) injection 0.5 mg 0.5 mg, IntraVENous, Once PRN, for anxiety or muscle spasm., Starting on Fri08/19/22 at 0910, For 1 dose, Recovery (only), For IV doses dilute dose with 1ml NS. ondansetron (Zofran) injection 4 mg 4 mg, IntraVENous, Once PRN, nausea, Starting on Fri08/19/22 at 0910, For 1 dose, Recovery (only), Initial antiemetic therapy. oxyCODONE (Roxicodone) immediate release tablet 10 mg (COMPLETED) 10 mg, Oral, PRN, severe pain (7-10), Starting on Fri08/19/22 at 0910, For 1 dose, Recovery (only), PHASE II 1007 (Given - Provid er: Radhika Albright RN) sodium chloride 0.9 % bolus 500 mL 500 mL, IntraVENous, at 1,000 mL/hr, Administer over 0.5 Hours, PRN, Anti-nausea, Starting on Fri08/19/22 at 0910, Recovery (only), Indications: Anti-nausea sodium chloride 0.9 % infusion 5-250 mL/hr, IntraVENous, PRN, if patient receiving piggyback infusions and maintenance fluids are not ordered OR KVO fluids to protect IV site / prevent frequent line interruptions / long duration, Starting on Fri08/19/22 at 0650, Preprocedure, For piggyback infusion, administer at same rate as piggyback for a total of 25 mL. Enter 25 mL into dose field and piggyback rate into rate field of order. If piggyback is infusing at a rate less than 100 mL/hr, enter 25 mL into dose field and 100 mL/hr into rate field of order. For KVO fluids, enter rate of 20 mL/hr or less into rate field of order. sodium chloride 0.9 % infusion 5-250 mL/hr, IntraVENous, PRN, if patient receiving piggyback infusions and maintenance fluids are not ordered OR KVO fluids to protect IV site / prevent frequent line interruptions/ long duration, Starting on Fri08/19/22 at 0910, Recovery (only), For piggyback infusion, administer at same rate as piggyback for a total of 25 mL. Enter 25 mL into dose field and piggyback rate into rate field of order. If piggyback is infusing at a rate less than 100 mL/hr, enter 25 mL into dose field and 100 mL/hr into rate field of order. For KVO fluids, enter rate of 20 mL/hr or less into rate field of order. sodium chloride 0.9% (NS) flush 10 mL 10 mL, IntraVENous, PRN, line care, Starting on Fri08/19/22 at 0910, Recovery (only), After every IV line use sodium chloride 0.9% (NS) flush 5-40 mL 5-40 mL, IntraVENous, PRN, line care, After every IV line use, Starting on Fri08/19/22 at 0650, Preprocedure, For Line Patency: Peripheral IV = 5 mL; Midline or Central Line = 10 mL/lumen. If following IV push medication, administer flush at same rate as the IV push. Flush volume is determined by type of infusion therapy being given. For non-viscous solutions use: Peripheral IV = 5 mL Midline or Central Line = 10 mL/lumen For viscous solutions (i.e. blood components, parenteral nutrition, contrast media, or after obtaining blood sample) use: Peripheral IV = 10 mL Midline or Central Line = 20 mL/lumen sterile water irrigation solution (CANCELED) As needed, Starting on Fri08/19/22 at 0830, Intraprocedure 0830 (Given - Provid er: Danny Sharma MD - Comment: for instruments) Linked Groups Order Group 1: labetalol (Normodyne,Trandate) injection 5 mgJump to med 5 mg, IntraVENous, Every 10 min PRN, high blood pressure, for SBP greater than 160 mmHg for 2 consecutive measurements taken from different sites., Starting on Fri08/19/22 at 0910, For 2 doses, Recovery (only)
PRN for SBP >160 for 2 consecutive measurements, if HR is 60 or greater. If beta vinay is contraindicated (HR less than 60, heart block, COPD or asthma) use hydralazine IV order.
Or hydrALAZINE (Apresoline) injection 5 mgJump to med 5 mg, IntraVENous, Every 15 min PRN, high blood pressure, for SBP greater than 160 mmHg for 2 consecutive measurements taken from different sites, Starting on Fri08/19/22 at 0910, For 2 doses, Recovery (only)
PRN for SBP > 160 for 2 consecutive measurements, and if one of the following conditions is met: 1) If IV labetolol is ineffective. 2) If HR is under 60. 3) If patient has heart block, COPD or asthma. If both labetalol and hydralazine ineffective, notify anesthesia provider.
Scheduled Medication Order 10/04/2023 10/05/2023 10/06/2023 acetaminophen (Tylenol) tablet 1,000 mg (COMPLETED) 1,000 mg, Oral, Once, On Fri10/06/23 at 1000, For 1 dose, Preprocedure, Administer 60 minutes prior to surgery. 1013 (Given - Provid er: Sabino Meneses RN) ceFAZolin in dextrose 4% (Ancef) IVPB 2,000 mg (COMPLETED) 2,000 mg, IntraVENous, Administer over 30 Minutes, Once, On Fri10/06/23 at 1000, For 1 dose, Preprocedure, Administer within 1 hour prior to incision. premix bag, Suspected Indication (Select all that apply): Surgical Prophylaxis 1224 (Given - Provid er: Salome Sims APRN - MASTER [employer]ER) famotidine (Pepcid) tablet 20 mg (COMPLETED)(Linked Group 1) 20 mg, Oral, Once, On Fri10/06/23 at 1000, For 1 dose, Preprocedure, IV or Oral 1013 (Given - Provid er: Sabino Meneses RN) gabapentin (Neurontin) capsule 100 mg (COMPLETED) 100 mg, Oral, Once, On Fri10/06/23 at 1000, For 1 dose, Preprocedure, Administer 60 minutes prior to surgery. 1013 (Given - Provid er: Sabino Meneses RN) sodium chloride 0.9% (NS) flush 10 mL 10 mL, IntraVENous, Every 12 hours scheduled (2 times per day), First dose on Fri10/06/23 at 2100, Recovery (only) sodium chloride 0.9% (NS) flush 5-40 mL 5-40 mL, IntraVENous, Every 12 hours, First dose on Fri10/06/23 at 1000, Preprocedure, For Line Patency: Peripheral IV = 5 mL; Midline or Central Line = 10 mL/lumen. If following IV push medication, administer flush at same rate as the IV push. Flush volume is determined by type of infusion therapy being given. For non-viscous solutions use: Peripheral IV = 5 mL Midline or Central Line = 10 mL/lumen For viscous solutions (i.e. blood components, parenteral nutrition, contrast media, or after obtaining blood sample) use: Peripheral IV = 10 mL Midline or Central Line = 20 mL/lumen 1000 (Canceled Entry - Provider: Automatic Discharge Provider - Comment: Automatically canceled at discontinue of medication order) Continuous Medication Order 10/04/2023 10/05/2023 10/06/2023 lactated Ringer's (LR) infusion 50 mL/hr, IntraVENous, Continuous, Starting on Fri10/06/23 at 1000, Preprocedure, Upon admission to sameday - please start iv if patient does not have iv access. Use 500ml NS for patients on dialysis. 1012 (New Bag - Prov ider: Sabino Meneses RN)1224 (Continued by Anesthesia - Provider: Salome Sims APRN - LESLIE)1254 (Stopped - Provider: MERRICK Leon CRNA) lactated ringers infusion 125 mL/hr, IntraVENous, Continuous, Starting on Fri10/06/23 at 1315, Recovery (only) 1315 (Canceled Entry - Provider: Automatic Discharge Provider - Comment: Automatically canceled at discontinue of medication order) PRN Medication Order 10/04/2023 10/05/202310/06/2023 ALPRAZolam (Xanax) disintegrating tablet 0.25 mg 0.25 mg, Oral, Once PRN, anxiety, Starting on Fri10/06/23 at 0945, For 1 dose, Preprocedure, Please do not administer prior to obtaining consent and/or history and physical. dextrose 5 % infusion 100 mL/hr, IntraVENous, PRN, Blood sugar less than 70mg/dL, Starting on Fri10/06/23 at 0945, Preprocedure, Start infusion following administration of dextrose 50% or glucagon. dextrose 50 % solution 12.5 g 12.5 g, IntraVENous, PRN, low blood sugar, Blood glucose less than 70 mg/dL and patient NOT ALERT or NPO., Starting on Fri10/06/23 at 0945, Preprocedure, If patient does not respond within 5 minutes, repeat dose x1. Start D5W at 100 mL/hour until ordering provider can be reached. Repeat blood glucose in 15 minutes. If blood glucose is less than 70 mg/dL, repeat treatment and recheck blood glucose in 15 minutes x2. If using Glucostabilizer, dose as instructed per system. diphenhydrAMINE (BENADryl) injection 12.5 mg 12.5 mg, IntraVENous, Once PRN, itching, Starting on Fri10/06/23 at 1307, For 1 dose, Recovery (only) fentaNYL (Sublimaze) injection 25 mcg 25 mcg, IntraVENous, Every 5 min PRN, moderate pain (4-6), Starting on Fri10/06/23 at 1307, For 3 doses, Recovery (only), Phase I and Phase II- Initial therapy for moderate pain (4-6). Restricted to a 90 minute time frame starting when the patient can verbally state their pain score. If after 2 doses the pain score does not decrease by more than one point, then call the provider. If oral meds are utilized, do not return to initial therapy medications. fentaNYL (Sublimaze) injection 50 mcg 50 mcg, IntraVENous, Every 5 min PRN, severe pain (7-10), Starting on Fri10/06/23 at 1307, For 3 doses, Recovery (only), Phase I and Phase II- Initial therapy for severe pain (7-10). Restricted to a 90 minute time frame starting when the patient can verbally state their pain score. If after 2 doses the pain score does not decrease by more than one point, then call the provider. If oral meds are utilized, do not return to initial therapy medications. glucagon (human recombinant) injection 1 mg 1 mg, IntraMUSCular, PRN, low blood sugar, Blood glucose less than 70 mg/dL and patient NOT ALERT or NPO and does not have IV access., Starting on Fri10/06/23 at 0945, Preprocedure, After administration, attempt intravenous access and start D5W at 100 mL/hr. Repeat blood glucose in 15 minutes x2 and notify provider. glucose oral gel 15 g 15 g, Oral, As needed, low blood sugar, Starting on Fri10/06/23 at 0945, Preprocedure, If blood glucose less than 50 mg/dL and patient ALERT and NOT NPO, give 2 tubes glucose gel. If blood glucose less than 70 mg/dL and patient ALERT and NOT NPO, give 1 tube glucose gel. Repeat blood glucose in 15 minutes. If blood glucose is less than 70 mg/dL, repeat treatment and recheck blood glucose in 15 minutes x2 and notify provider. hydrALAZINE (Apresoline) injection 5 mg(Linked Group 2) 5 mg, IntraVENous, Every 15 min PRN, high blood pressure, for SBP greater than 160 mmHg for 2 consecutive measurements taken from different sites, Starting on Fri10/06/23 at 1307, For 2 doses, Recovery (only), PRN for SBP > 160 for 2 consecutive measurements, and if one of the following conditions is met: 1) If IV labetolol is ineffective. 2) If HR is under 60. 3) If patient has heart block, COPD or asthma. If both labetalol and hydralazine ineffective, notify anesthesia provider. Insulin Lispro (Humalog) injection 0-12 Units 0-12 Units, SubCUTAneous, PRN, high blood sugar, Surgery patient, Starting on Fri10/06/23 at 0945, For 3 doses, Preprocedure, Corrective Low Dose Algorithm Glucose: Dose: 70-180 No Insulin 181-240 4 Unit 241-300 6 Units 301-350 8 Units 351-400 10 Units Over 400 12 Units and notify physician 1012 (Given - Provid er: Sabino Meneses RN - Comment: [id number])1312 (Given - Provider: Sabino Meneses RN - Comment: BS 212) labetalol (Normodyne,Trandate) injection 5 mg(Linked Group 2) 5 mg, IntraVENous, Every 10 min PRN, high blood pressure, for SBP greater than 160 mmHg for 2 consecutive measurements taken from different sites., Starting on Fri10/06/23 at 1307, For 2 doses, Recovery (only), PRN for SBP >160 for 2 consecutive measurements, if HR is 60 or greater. If beta vinay is contraindicated (HR less than 60, heart block, COPD or asthma) use hydralazine IV order. lidocaine-EPINEPHrine (Xylocaine W/EPI) 1 %-1:[id number] injection (CANCELED) As needed, Starting on Fri10/06/23 at 1244, Intraprocedure 1244 (Given - Provid er: Danny Sharma MD - Comment: GIVEN AT OPERATIVE SITE) ondansetron (Zofran) injection 4 mg (COMPLETED) 4 mg, IntraVENous, Once PRN, nausea, Starting on Fri10/06/23 at 1307, For 1 dose, Recovery (only), Initial antiemetic therapy. 1429 (Given - Provid er: Joan Anton RN) oxyCODONE (Roxicodone) immediate release tablet 10 mg (COMPLETED)(Linked Group 3) 10 mg, Oral, PRN, severe pain (7-10), Starting on Fri10/06/23 at 1307, For 1 dose, Recovery (only), PHASE II 1421 (Given - Provid er: Joan Anton RN) sodium chloride 0.9 % bolus 500 mL 500 mL, IntraVENous, at 1,000 mL/hr, Administer over 0.5 Hours, PRN, Anti-nausea, Starting on Fri10/06/23 at 1307, Recovery (only), Indications: Anti-nausea sodium chloride 0.9 % infusion 5-250 mL/hr, IntraVENous, PRN, if patient receiving piggyback infusions and maintenance fluids are not ordered OR KVO fluids to protect IV site / prevent frequent line interruptions / long duration, Starting on Fri10/06/23 at 0945, Preprocedure, For piggyback infusion, administer at same rate as piggyback for a total of 25 mL. Enter 25 mL into dose field and piggyback rate into rate field of order. If piggyback is infusing at a rate less than 100 mL/hr, enter 25 mL into dose field and 100 mL/hr into rate field of order. For KVO fluids, enter rate of 20 mL/hr or less into rate field of order. sodium chloride 0.9 % infusion 5-250 mL/hr, IntraVENous, PRN, if patient receiving piggyback infusions and maintenance fluids are not ordered OR KVO fluids to protect IV site / prevent frequent line interruptions/ long duration, Starting on Fri10/06/23 at 1307, Recovery (only), For piggyback infusion, administer at same rate as piggyback for a total of 25 mL. Enter 25 mL into dose field and piggyback rate into rate field of order. If piggyback is infusing at a rate less than 100 mL/hr, enter 25 mL into dose field and 100 mL/hr into rate field of order. For KVO fluids, enter rate of 20 mL/hr or less into rate field of order. sodium chloride 0.9% (NS) flush 10 mL 10 mL, IntraVENous, PRN, line care, Starting on Fri10/06/23 at 1307, Recovery (only), After every IV line use sodium chloride 0.9% (NS) flush 5-40 mL 5-40 mL, IntraVENous, PRN, line care, After every IV line use, Starting on Fri10/06/23 at 0945, Preprocedure, For Line Patency: Peripheral IV = 5 mL; Midline or Central Line = 10 mL/lumen. If following IV push medication, administer flush at same rate as the IV push. Flush volume is determined by type of infusion therapy being given. For non-viscous solutions use: Peripheral IV = 5 mL Midline or Central Line = 10 mL/lumen For viscous solutions (i.e. blood components, parenteral nutrition, contrast media, or after obtaining blood sample) use: Peripheral IV = 10 mL Midline or Central Line = 20 mL/lumen sterile water irrigation solution (CANCELED) As needed, Starting on Fri10/06/23 at 1243, Intraprocedure 1243 (Given - Provid er: Danny Sharma MD) Linked Groups Order Group 1: famotidine (Pepcid) tablet 20 mg (COMPLETED)Jump to med 20 mg, Oral, Once, On Fri10/06/23 at 1000, For 1 dose, Preprocedure, IV or Oral Or famotidine (Pepcid) 20 mg in sodium chloride (PF) 0.9 % 10 mL injection (COMPLETED) 20 mg, IntraVENous, Administer over 2 Minutes, Once, On Fri10/06/23 at 1000, For 1 dose, Preprocedure, IV or Oral Group 2: labetalol (Normodyne,Trandate) injection 5 mgJump to med 5 mg, IntraVENous, Every 10 min PRN, high blood pressure, for SBP greater than 160 mmHg for 2 consecutive measurements taken from different sites., Starting on Fri10/06/23 at 1307, For 2 doses, Recovery (only), PRN for SBP >160 for 2 consecutive measurements, if HR is 60 or greater. If beta vinay is contraindicated (HR less than 60, heart block, COPD or asthma) use hydralazine IV order. Or hydrALAZINE (Apresoline) injection 5 mgJump to med 5 mg, IntraVENous, Every 15 min PRN, high blood pressure, for SBP greater than 160 mmHg for 2 consecutive measurements taken from different sites, Starting on Fri10/06/23 at 1307, For 2 doses, Recovery (only), PRN for SBP > 160 for 2 consecutive measurements, and if one of the following conditions is met: 1) If IV labetolol is ineffective. 2) If HR is under 60. 3) If patient has heart block, COPD or asthma. If both labetalol and hydralazine ineffective, notify anesthesia provider. Group 3: oxyCODONE (Roxicodone) immediate release tablet 5 mg (COMPLETED) 5 mg, Oral, PRN, moderate pain (4-6), Starting on Fri10/06/23 at 1307, For 1 dose, Recovery (only), PHASE II Or oxyCODONE (Roxicodone) immediate release tablet 10 mg (COMPLETED)Jump to med 10 mg, Oral, PRN, severe pain (7-10), Starting on Fri10/06/23 at 1307, For 1 dose, Recovery (only), PHASE II INFORMATION SOURCE (unrecogn ized section and content) DATE CREATED AUTHOR [facility] DATE CREATED AUTHOR AUTHOR'S ORGANIZ ATION 10/14/2021 [facility] DATE CREATED AUTHOR AUTHOR'S ORGANIZ ATION 01/20/2022 [facility] DATE CREATED AUTHOR AUTHOR'S ORGANIZ ATION 09/05/2024 [facility] DATE CREATED AUTHOR AUTHOR'S ORGANIZ ATION 10/14/2024 [facility] Care Teams (unrecognized sec tion and content) Food And Beverage Attendant Relationship Specialty Start Date End Date Donovan Hernandez PCP - General 01/12/18 Food And Beverage Attendant Relationship Specialty Start Date End Date Donovan Hernandez PCP - General 01/12/18 Food And Beverage Attendant Relationship Specialty Start Date End Date Donovan Hernandez PCP - General 01/12/18 Food And Beverage Attendant Relationship Specialty Start Date End Date Donovan Hernandez PCP - General 01/12/18 Food And Beverage Attendant Relationship Specialty Start Date End Date Donovan Hernandez PCP - General 01/12/18 Food And Beverage Attendant Relationship Specialty Start Date End Date Donovan Hernandez PCP - General 01/12/18 Food And Beverage Attendant Relationship Specialty Start Date End Date Donovan Hernandez PCP - General 01/12/18 Food And Beverage Attendant Relationship Specialty Start Date End Date Donovan Hernandez [address] [place] [address] PCP - General 01/12/18 Danny Sharma MD [address] [facility] [place] [address] Consulting Physician Gynecologic Oncology 02/01/22 Salome Sofia APRN - MEDICAL ASSISTANT SUPERVISOR [address] [facility] [address] [place] [address] Nurse Practitioner Certified Nurse Practitioner 02/20/22 Malinda Boone APRN - MEDICAL ASSISTANT SUPERVISOR [address] [facility] [address] [place] [address] Nurse Practitioner Nurse Practitioner 02/20/22 Kaity Rodriguez, RN Nurse Navigator Gynecologic Oncology 02/27/22 Food And Beverage Attendant Relationship Specialty Start Date End Date Donovan Hernandez [address] [facility] [address] [place] [phone] PCP - General 01/12/18 Danny Sharma MD [address] [facility] [place] [address] Consulting Physician Gynecologic Oncology 02/01/22 Salome Sofia THERMAL INTELLIGENCE ANALYST - MEDICAL ASSISTANT SUPERVISOR [address] [facility] [address] [place] [address] Nurse Practitioner Certified Nurse Practitioner 02/20/22 Malinda Boone THERMAL INTELLIGENCE ANALYST - MEDICAL ASSISTANT SUPERVISOR [address] [facility] [address] [place] [address] Nurse Practitioner Nurse Practitioner 02/20/22 Kaity Rodriguez, RN Nurse Navigator Gynecologic Oncology 02/27/22 Food And Beverage Attendant Relationship Specialty Start Date End Date Donovan Hernandez [address] [facility] [address] [place] [phone] PCP - General 01/12/18 Danny Sharma MD [address] [facility] [place] [address] Consulting Physician Gynecologic Oncology 02/01/22 Salome Sofia THERMAL INTELLIGENCE ANALYST - MEDICAL ASSISTANT SUPERVISOR [address] [facility] [address] [place] [address] Nurse Practitioner Certified Nurse Practitioner 02/20/22 Malinda Boone THERMAL INTELLIGENCE ANALYST - MEDICAL ASSISTANT SUPERVISOR [address] [facility] [address] [place] [address] Nurse Practitioner Nurse Practitioner 02/20/22 Kaity Rodriguez, RN Nurse Navigator Gynecologic Oncology 02/27/22 Food And Beverage Attendant Relationship Specialty Start Date End Date Donovan Hernandez [address] [place] [address] PCP - General 01/12/18 Danny Sharma MD [address] [facility] [place] [address] Consulting Physician Gynecologic Oncology 02/01/22 Salome Sofia THERMAL INTELLIGENCE ANALYST - MEDICAL ASSISTANT SUPERVISOR [address] [facility] [address] [place] [address] Nurse Practitioner Certified Nurse Practitioner 02/20/22 Malinda Boone THERMAL INTELLIGENCE ANALYST - MEDICAL ASSISTANT SUPERVISOR [address] [facility] [address] [place] [address] Nurse Practitioner Nurse Practitioner 02/20/22 Kaity Rodriguez, RN Nurse Navigator Gynecologic Oncology 02/27/22 Food And Beverage Attendant Relationship Specialty Start Date End Date Donovan Hernandez [address] [place] [address] PCP - General 01/12/18 Danny Sharma MD [address] [facility] [place] [address] Consulting Physician Gynecologic Oncology 02/01/22 Salome Sofia THERMAL INTELLIGENCE ANALYST - MEDICAL ASSISTANT SUPERVISOR [address] [facility] [address] [place] [address] Nurse Practitioner Certified Nurse Practitioner 02/20/22 Malinda Boone THERMAL INTELLIGENCE ANALYST - MEDICAL ASSISTANT SUPERVISOR [address] [facility] [address] [place] [address] Nurse Practitioner Nurse Practitioner 02/20/22 Kaity Rodriguez, RN Nurse Navigator Gynecologic Oncology 02/27/22 Food And Beverage Attendant Relationship Specialty Start Date End Date Donovan Hernandez [address] [place] [phone] PCP - General 01/12/18 Danny Sharma MD [address] [facility] [place], [place] [id number] Consulting Physician Gynecologic Oncology 02/01/22 Salome Sofia APRN - MEDICAL ASSISTANT SUPERVISOR [address] [facility] [address] [place], [place] [id number] Nurse Practitioner Certified Nurse Practitioner 02/20/22 Malinda Boone APRN - MEDICAL ASSISTANT SUPERVISOR [address] [facility] [address] [place] [address] Nurse Practitioner Nurse Practitioner 02/20/22 Kaity Rodriguez, RN Nurse Navigator Gynecologic Oncology 02/27/22 Food And Beverage Attendant Relationship Specialty Start Date End Date Donovan Hernandez [address] [facility] [address] [place] [phone] PCP - General 01/12/18 Danny Sharma MD [address] [facility] [place], [place] [id number] Consulting Physician Gynecologic Oncology 02/01/22 Salome Sofia APRN - MEDICAL ASSISTANT SUPERVISOR [address] [facility] [address] [place] [address] Nurse Practitioner Certified Nurse Practitioner 02/20/22 Malinda Boone APRN - MEDICAL ASSISTANT SUPERVISOR [address] [facility] [address] [place] [address] Nurse Practitioner Nurse Practitioner 02/20/22 Kaity Rodriguez, RN Nurse Navigator Gynecologic Oncology 02/27/22 Food And Beverage Attendant Relationship Specialty Start Date End Date Donovan Hernandez [address] [facility] [address] [place] [address] PCP - General 01/12/18 Danny Sharma MD [address] [facility] [place] [address] Consulting Physician Gynecologic Oncology 02/01/22 Salome Sofia APRN - MEDICAL ASSISTANT SUPERVISOR [address] [facility] [address] [place] [address] Nurse Practitioner Certified Nurse Practitioner 02/20/22 Malinda Boone APRN - MEDICAL ASSISTANT SUPERVISOR [address] [facility] [address] [place] [address] Nurse Practitioner Nurse Practitioner 02/20/22 Kaity Rodriguez, RN Nurse Navigator Gynecologic Oncology 02/27/22 Food And Beverage Attendant Relationship Specialty Start Date End Date Donovan Hernandez [address] [facility] [address] [place] [phone] PCP - General 01/12/18 Danny Sharma MD [address] [facility] [place] [address] Consulting Physician Gynecologic Oncology 02/01/22 Salome Sofia APRN - MEDICAL ASSISTANT SUPERVISOR [address] [facility] [address] [place] [address] Nurse Practitioner Certified Nurse Practitioner 02/20/22 Malinda Boone APRN - MEDICAL ASSISTANT SUPERVISOR [address] [facility] [address] [place] [address] Nurse Practitioner Nurse Practitioner 02/20/22 Felcyn, Kaity M, RN Nurse Navigator Gynecologic Oncology 02/27/22 Food And Beverage Attendant Relationship Specialty Start Date End Date Donovan Hernandez [address] [facility] [address] [place] [address] PCP - General 01/12/18 Danny Sharma MD [address] [facility] [place] [address] Consulting Physician Gynecologic Oncology 02/01/22 Salome Sofia APRN - MEDICAL ASSISTANT SUPERVISOR [address] [facility] [address] [place] [address] Nurse Practitioner Certified Nurse Practitioner 02/20/22 Malinda Boone APRN - CNP [address] [facility] [address] [place] [address] Nurse Practitioner Nurse Practitioner 02/20/22 Kaity Rodriguez, RN Nurse Navigator Gynecologic Oncology 02/27/22 Food And Beverage Attendant Relationship Specialty Start Date End Date Donovan Hernandez [address] [facility] [address] [place] [address] PCP - General 01/12/18 Danny Sharma MD 161 [facility], [address] [place] [address] Consulting Physician Gynecologic Oncology 02/01/22 Salome Sofia APRN - MEDICAL ASSISTANT SUPERVISOR [address] [facility] [address] [place] [address] Nurse Practitioner Certified Nurse Practitioner 02/20/22 Malinda Boone APRN - MEDICAL ASSISTANT SUPERVISOR 161 [facility] [address] [place], [place] [id number] Nurse Practitioner Nurse Practitioner 02/20/22 Kaity Rodriguez, RN Nurse Navigator Gynecologic Oncology 02/27/22 Food And Beverage Attendant Relationship Specialty Start Date End Date Donovan Hernandez [address] [facility] [address] [place] [phone] PCP - General 01/12/18 Danny Sharma MD 161 [facility], [address] [place] [address] Consulting Physician Gynecologic Oncology 02/01/22 Salome Sofia THERMAL INTELLIGENCE ANALYST - MEDICAL ASSISTANT SUPERVISOR 161 [facility] [address] [place], [place] [id number] Nurse Practitioner Certified Nurse Practitioner 02/20/22 Malinda Boone, THERMAL INTELLIGENCE ANALYST - MEDICAL ASSISTANT SUPERVISOR [address] [place] [address] [address] [place], [place] [id number] Nurse Practitioner Nurse Practitioner 02/20/22 Kaity Rodriguez, RN Nurse Navigator Gynecologic Oncology 02/27/22 Team Status: Active Member Role Status Dates Dr. Alek Hernandez MD Family Provider Active Dr. Alek Hernandez MD Primary Care Provider Activ e Team Status: Inactive Member Role Status Dates Dr. Alek Hernandez MD Primary Care Provider, Atte nding Provider Active Team Status: Active Member Role Status Dates Dr. Alek Hernandez MD Primary Care Provider, Atte nding Provider Active Food And Beverage Attendant Relationship Specialty Start Date End Date Donovan Hernandez [address] [place] [phone] PCP - General 01/12/18 Danny Sharma MD 161 [facility], [address] [place] [address] Consulting Physician Gynecologic Oncology 02/01/22 Salome Sofia APRN - MEDICAL ASSISTANT SUPERVISOR 161 [facility] 298 [place] [address] Nurse Practitioner Certified Nurse Practitioner 02/20/22 Malinda Boone APRN - MEDICAL ASSISTANT SUPERVISOR 161 [facility] [address] [place] [address] Nurse Practitioner Nurse Practitioner 02/20/22 Kaity Rodriguez, RN Nurse Navigator Gynecologic Oncology 02/27/22 Food And Beverage Attendant Relationship Specialty Start Date End Date Donovan Hernandez [address] [place] [phone] PCP - General 01/12/18 Danny Sharma MD [address] [facility], [address] [place] [address] Consulting Physician Gynecologic Oncology 02/01/22 Salome Sofia APRN - MEDICAL ASSISTANT SUPERVISOR 161 [facility] [address] [place] [address] Nurse Practitioner Certified Nurse Practitioner 02/20/22 Malinda Boone APRN - MEDICAL ASSISTANT SUPERVISOR 161 [facility] [address] [place] [address] Nurse Practitioner Nurse Practitioner 02/20/22 Kaity Rodriguez, RN Nurse Navigator Gynecologic Oncology 02/27/22 Food And Beverage Attendant Relationship Specialty Start Date End Date Donovan Hernandez [address] [place] [phone] PCP - General 01/12/18 Danny Sharma MD [address] [facility], [address] [place] [address] Consulting Physician Gynecologic Oncology 02/01/22 Salome Sofia APRN - MEDICAL ASSISTANT SUPERVISOR 161 [facility] [address] [place] [address] Nurse Practitioner Certified Nurse Practitioner 02/20/22 Malinda Boone APRN - MEDICAL ASSISTANT SUPERVISOR 161 [facility] [address] [place] [address] Nurse Practitioner Nurse Practitioner 02/20/22 Kaity Rodriguez RN Nurse Navigator Gynecologic Oncology 02/27/22 Team Status: Active Member Role Status Dates Dr. Alek Hernandez MD Primary Care Provider, Referring Provider, Other Provider Active Dr. Mateo Means MD Attending Provider Active Team Status: Inactive Member Role Status Dates Dr. Alek Hernandez MD Primary Care Provider, Attending Provider, Referring Provider Active Food And Beverage Attendant Relationship Specialty Start Date End Date Donovan Hernandez [address] [place] [address] PCP - General 01/12/18 Danny Sharma MD [address] [facility] [address] [place] [address] Consulting Physician Gynecologic Oncology 02/01/22 Salome Sofia APRN - MEDICAL ASSISTANT SUPERVISOR 161 [facility] [address] [place] [address] Nurse Practitioner Certified Nurse Practitioner 02/20/22 Malinda Boone APRN - MEDICAL ASSISTANT SUPERVISOR 161 [facility] [address] [place] [address] Nurse Practitioner Nurse Practitioner 02/20/22 Kaity Rodriguez, RN Nurse Navigator Gynecologic Oncology 02/27/22 Food And Beverage Attendant Relationship Specialty Start Date End Date Donovan Hernandez [address] [place] [address] PCP - General 01/12/18 Danny Sharma MD [address] [place] [address] Consulting Physician Gynecologic Oncology 02/01/22 Salome Sofia APRN - MEDICAL ASSISTANT SUPERVISOR [address] [place] [address] Nurse Practitioner Certified Nurse Practitioner 02/20/22 Malinda Boone APRN - MEDICAL ASSISTANT SUPERVISOR [address] [place] [address] Nurse Practitioner Nurse Practitioner 02/20/22 Kaity Rodriguez, RN Nurse Navigator Gynecologic Oncology 02/27/22 Food And Beverage Attendant Relationship Specialty Start Date End Date Donovan Hernandez [address] [facility] [address] [place] [address] PCP - General 01/12/18 Danny Sharma MD [address] [place] [address] Consulting Physician Gynecologic Oncology 02/01/22 Salome Sofia APRN - MEDICAL ASSISTANT SUPERVISOR [address] [place] [address] Nurse Practitioner Certified Nurse Practitioner 02/20/22 Malinda Boone APRN - MEDICAL ASSISTANT SUPERVISOR [address] [place] [address] Nurse Practitioner Nurse Practitioner 02/20/22 Kaity Rodriguez, RN Nurse Navigator Gynecologic Oncology 02/27/22 Food And Beverage Attendant Relationship Specialty Start Date End Date Donovan Hernandez [address] [place] [phone] PCP - General 01/12/18 Danny Sharma MD [address] [place] [address] Consulting Physician Gynecologic Oncology 02/01/22 Salome Sofia APRN - MEDICAL ASSISTANT SUPERVISOR [address] [place] [address] Nurse Practitioner Certified Nurse Practitioner 02/20/22 Malinda Boone APRN - MEDICAL ASSISTANT SUPERVISOR [address] [place] [address] Nurse Practitioner Nurse Practitioner 02/20/22 Kaity Rodriguez, RN Nurse Navigator Gynecologic Oncology 02/27/22 Food And Beverage Attendant Relationship Specialty Start Date End Date Donovan Hernandez [address] [place] [phone] PCP - General 01/12/18 Danny Sharma MD [address] [place] [address] Consulting Physician Gynecologic Oncology 02/01/22 Salome Sofia APRN - MEDICAL ASSISTANT SUPERVISOR [address] [place] [address] Nurse Practitioner Certified Nurse Practitioner 02/20/22 Malinda Boone APRN - [facility] [address] [place] [address] Nurse Practitioner Nurse Practitioner 02/20/22 Kaity Rodriguez RN Nurse Navigator Gynecologic Oncology 02/27/22 Food And Beverage Attendant Relationship Specialty Start Date End Date Donovan Hernandez [address] [place] [address] PCP - General 01/12/18 Danny Sharma MD [address] [place] [address] Consulting Physician Gynecologic Oncology 02/01/22 Salome Sofia APRN - MEDICAL ASSISTANT SUPERVISOR [address] [place] [address] Nurse Practitioner Certified Nurse Practitioner 02/20/22 Malinda Boone APRN - CNP [address] [place] [address] Nurse Practitioner Nurse Practitioner 02/20/22 Kaity Rodriguez, RN Nurse Navigator Gynecologic Oncology 02/27/22 Food And Beverage Attendant Relationship Specialty Start Date End Date Donovan Hernandez [address] [place] [phone] PCP - General 01/12/18 Danny Sharma MD [address] [place] [address] Consulting Physician Gynecologic Oncology 02/01/22 Salome Sofia THERMAL INTELLIGENCE ANALYST - MEDICAL ASSISTANT SUPERVISOR [address] [place] [address] Nurse Practitioner Certified Nurse Practitioner 02/20/22 Malinda Boone APRN - MEDICAL ASSISTANT SUPERVISOR [address] [place] [address] Nurse Practitioner Nurse Practitioner 02/20/22 Kaity Rodriguez, RN Nurse Navigator Gynecologic Oncology 02/27/22 Food And Beverage Attendant Relationship Specialty Start Date End Date Donovan Hernandez [address] [place] [phone] PCP - General 01/12/18 Danny Sharma MD [address] [place] [address] Consulting Physician Gynecologic Oncology 02/01/22 Salome Sofia THERMAL INTELLIGENCE ANALYST - MEDICAL ASSISTANT SUPERVISOR [address] [place] [address] Nurse Practitioner Certified Nurse Practitioner 02/20/22 Malinda Boone THERMAL INTELLIGENCE ANALYST [facility] [address] [place] [address] Nurse Practitioner Nurse Practitioner 02/20/22 Kaity Rodriguez, RN Nurse Navigator Gynecologic Oncology 02/27/22 Food And Beverage Attendant Relationship Specialty Start Date End Date Donovan Hernandez [address] [place] [phone] PCP - General 01/12/18 Danny Sharma MD [address] [place] [address] Consulting Physician Gynecologic Oncology 02/01/22 Salome Sofia APRN - [place] [address] [place] [address] Nurse Practitioner Certified Nurse Practitioner 02/20/22 Malinda Boone APRN - [facility] [address] [place] [address] Nurse Practitioner Nurse Practitioner 02/20/22 Kaity Rodriguez, RN Nurse Navigator Gynecologic Oncology 02/27/22 Food And Beverage Attendant Relationship Specialty Start Date End Date Donovan Hernandez [address] [place] [phone] PCP - General 01/12/18 Danny Sharma MD [address] [place] [address] Consulting Physician Gynecologic Oncology 02/01/22 Salome Sofia APRN - [facility] [address] [place] [address] Nurse Practitioner Certified Nurse Practitioner 02/20/22 Malinda Boone APRN - [facility] [address] [place] [address] Nurse Practitioner Nurse Practitioner 02/20/22 Kaity Rodriguez, RN Nurse Navigator Gynecologic Oncology 02/27/22 Food And Beverage Attendant Relationship Specialty Start Date End Date Donovan Hernandez [address] [place] [phone] PCP - General 01/12/18 Danny Sharma MD [address] [place] [address] Consulting Physician Gynecologic Oncology 02/01/22 Salome Sofia APRN - MEDICAL ASSISTANT SUPERVISOR [address] [place] [address] Nurse Practitioner Certified Nurse Practitioner 02/20/22 Malinda Boone APRN - MEDICAL ASSISTANT SUPERVISOR [address] [place] [address] Nurse Practitioner Nurse Practitioner 02/20/22 Kaity Rodriguez, RN Nurse Navigator Gynecologic Oncology 02/27/22 Food And Beverage Attendant Relationship Specialty Start Date End Date Donovan Hernandez [address] [place] [address] PCP - General 01/12/18 Danny Sharma MD [address] [place] [address] Consulting Physician Gynecologic Oncology 02/01/22 Salome Sofia THERMAL INTELLIGENCE ANALYST - MEDICAL ASSISTANT SUPERVISOR [address] [place] [address] Nurse Practitioner Certified Nurse Practitioner 02/20/22 Malinda Boone THERMAL INTELLIGENCE ANALYST - MEDICAL ASSISTANT SUPERVISOR [address] [place] [address] Nurse Practitioner Nurse Practitioner 02/20/22 Kaity Rodriguez, RN Nurse Navigator Gynecologic Oncology 02/27/22 Food And Beverage Attendant Relationship Specialty Start Date End Date Donovan Hernandez [address] [place] [address] PCP - General 01/12/18 Danny Sharma MD [address] [place] [address] Consulting Physician Gynecologic Oncology 02/01/22 Salome Sofia APRN - MEDICAL ASSISTANT SUPERVISOR [address] [place] [address] Nurse Practitioner Certified Nurse Practitioner 02/20/22 Malinda Boone APRN - CNP [address] [place] [address] Nurse Practitioner Nurse Practitioner 02/20/22 Kaity Rodriguez, RN Nurse Navigator Gynecologic Oncology 02/27/22 Food And Beverage Attendant Relationship Specialty Start Date End Date Donovan Hernandez [address] [place] [address] PCP - General 01/12/18 Danny Sharma MD [address] [place] [address] Consulting Physician Gynecologic Oncology 02/01/22 Salome Sofia APRN - [facility] [address] [place] [address] Nurse Practitioner Certified Nurse Practitioner 02/20/22 Malinda Boone APRN - CNP [address] [place] [address] Nurse Practitioner Nurse Practitioner 02/20/22 Kaity Rodriguez RN Nurse Navigator Gynecologic Oncology 02/27/22 Food And Beverage Attendant Relationship Specialty Start Date End Date Donovan Hernandez [address] [facility] [address] [place] [address] PCP - General 01/12/18 Danny Sharma MD [address] [place] [address] Consulting Physician Gynecologic Oncology 02/01/22 Salome Sofia APRN - MEDICAL ASSISTANT SUPERVISOR [address] [place] [address] Nurse Practitioner Certified Nurse Practitioner 02/20/22 Malinda Boone APRN - MEDICAL ASSISTANT SUPERVISOR [address] [place] [address] Nurse Practitioner Nurse Practitioner 02/20/22 Kaity Rodriguez RN Nurse Navigator Gynecologic Oncology 02/27/22 Food And Beverage Attendant Relationship Specialty Start Date End Date Donovan Hernandez [address] [facility] [address] [place] [address] PCP - General 01/12/18 Danny Sharma MD [address] [place] [address] Consulting Physician Gynecologic Oncology 02/01/22 Salome Sofia THERMAL INTELLIGENCE ANALYST - MEDICAL ASSISTANT SUPERVISOR [address] [place] [address] Nurse Practitioner Certified Nurse Practitioner 02/20/22 Malinda Boone APRN - MEDICAL ASSISTANT SUPERVISOR [address] [place] [address] Nurse Practitioner Nurse Practitioner 02/20/22 Kaity Rodriguez, RN Nurse Navigator Gynecologic Oncology 02/27/22 Food And Beverage Attendant Relationship Specialty Start Date End Date Donovan Hernandez [address] [facility] [address] [place] [address] PCP - General 01/12/18 Danny Sharma MD [address] [place] [address] Consulting Physician Gynecologic Oncology 02/01/22 Salome Sofia APRN - CNP [address] [place] [address] Nurse Practitioner Certified Nurse Practitioner 02/20/22 Malinda Boone APRN - MEDICAL ASSISTANT SUPERVISOR [address] [place] [address] Nurse Practitioner Nurse Practitioner 02/20/22 Kaity Rodriguez, RN Nurse Navigator Gynecologic Oncology 02/27/22 Food And Beverage Attendant Relationship Specialty Start Date End Date Donovan Hernandez [address] [place] [phone] PCP - General 01/12/18 Danny Sharma MD [address] [place] [address] Consulting Physician Gynecologic Oncology 02/01/22 Salome Sofia APRN - MEDICAL ASSISTANT SUPERVISOR [address] [place] [address] Nurse Practitioner Certified Nurse Practitioner 02/20/22 Malinda Boone APRN - MEDICAL ASSISTANT SUPERVISOR [address] [place] [address] Nurse Practitioner Nurse Practitioner 02/20/22 Kaity Rodriguez, RN Nurse Navigator Gynecologic Oncology 02/27/22 Food And Beverage Attendant Relationship Specialty Start Date End Date Donovan Hernandez [address] [place] [address] PCP - General 01/12/18 Danny Sharma MD [address] [place] [address] Consulting Physician Gynecologic Oncology 02/01/22 Salome Sofia APRN - MEDICAL ASSISTANT SUPERVISOR [address] [place] [address] Nurse Practitioner Certified Nurse Practitioner 02/20/22 Malinda Boone APRN - MEDICAL ASSISTANT SUPERVISOR [address] [place] [address] Nurse Practitioner Nurse Practitioner 02/20/22 Kaity Rodriguez, RN Nurse Navigator Gynecologic Oncology 02/27/22 Food And Beverage Attendant Relationship Specialty Start Date End Date Donovan Hernandez [address] [place] [address] PCP - General 01/12/18 Danny Sharma MD [address] [place] [address] Consulting Physician Gynecologic Oncology 02/01/22 Salome Sofia APRN - MEDICAL ASSISTANT SUPERVISOR [address] [place] [address] Nurse Practitioner Certified Nurse Practitioner 02/20/22 Malinda Boone APRN - CNP [address] [place] [address] Nurse Practitioner Nurse Practitioner 02/20/22 Kaity Rodriguez, RN Nurse Navigator Gynecologic Oncology 02/27/22 Food And Beverage Attendant Relationship Specialty Start Date End Date Donovan Hernandez [address] [place] [address] PCP - General 01/12/18 Danny Sharma MD [address] [place] [address] Consulting Physician Gynecologic Oncology 02/01/22 Salome Sofia APRN - MEDICAL ASSISTANT SUPERVISOR [address] [place] [address] Nurse Practitioner Certified Nurse Practitioner 02/20/22 Malinda Boone APRN - CNP [address] [place] [address] Nurse Practitioner Nurse Practitioner 02/20/22 Kaity Rodriguez, RN Nurse Navigator Gynecologic Oncology 02/27/22 Food And Beverage Attendant Relationship Specialty Start Date End Date Donovan Hernandez [address] [place] [phone] PCP - General 01/12/18 Danny Sharma MD [address] [place] [address] Consulting Physician Gynecologic Oncology 02/01/22 Salome Sofia APRN - MEDICAL ASSISTANT SUPERVISOR [address] [place] [address] Nurse Practitioner Certified Nurse Practitioner 02/20/22 Malinda Boone APRN - [facility] [address] [place] [address] Nurse Practitioner Nurse Practitioner 02/20/22 Kaity Rodriguez, RN Nurse Navigator Gynecologic Oncology 02/27/22 Food And Beverage Attendant Relationship Specialty Start Date End Date Donovan Hernandez [address] [place] [phone] PCP - General 01/12/18 Danny Sharma MD [address] [place] [address] Consulting Physician Gynecologic Oncology 02/01/22 Salome Sofia THERMAL INTELLIGENCE ANALYST - [facility] [address] [place] [address] Nurse Practitioner Certified Nurse Practitioner 02/20/22 Malinda Boone APRN - [facility] [address] [place] [address] Nurse Practitioner Nurse Practitioner 02/20/22 Kaity Rodriguez, RN Nurse Navigator Gynecologic Oncology 02/27/22 Food And Beverage Attendant Relationship Specialty Start Date End Date Donovan Hernandez [address] [place] [phone] PCP - General 01/12/18 Danny Sharma MD [address] [place] [address] Consulting Physician Gynecologic Oncology 02/01/22 Salome Sofia APRN - MEDICAL ASSISTANT SUPERVISOR [address] [place] [address] Nurse Practitioner Certified Nurse Practitioner 02/20/22 Malinda Boone APRN - MEDICAL ASSISTANT SUPERVISOR [address] [place] [address] Nurse Practitioner Nurse Practitioner 02/20/22 Kaity Rodriguez, RN Nurse Navigator Gynecologic Oncology 02/27/22 Food And Beverage Attendant Relationship Specialty Start Date End Date Donovan Hernandez [address] [facility] [address] [place] [phone] PCP - General 01/12/18 Danny Sharma MD [address] [facility] [address] [place] [address] Consulting Physician Gynecologic Oncology 02/01/22 Salome Sofia APRN - MEDICAL ASSISTANT SUPERVISOR [address] [place] [address] Nurse Practitioner Certified Nurse Practitioner 02/20/22 Malinda Boone APRN - MEDICAL ASSISTANT SUPERVISOR [address] [facility] [place] [address] Nurse Practitioner Nurse Practitioner 02/20/22 Kaity Rodriguez, RN Nurse Navigator Gynecologic Oncology 02/27/22 Food And Beverage Attendant Relationship Specialty Start Date End Date Donovan Hernandez [address] [facility] [address] [place] [phone] PCP - General 01/12/18 Danny Sharma MD [address] [place] [address] Consulting Physician Gynecologic Oncology 02/01/22 Salome Sofia APRN - MEDICAL ASSISTANT SUPERVISOR [address] [place] [address] Nurse Practitioner Certified Nurse Practitioner 02/20/22 Malinda Boone APRN - MEDICAL ASSISTANT SUPERVISOR [address] [place] [address] Nurse Practitioner Nurse Practitioner 02/20/22 Kaity Rodriguez, RN Nurse Navigator Gynecologic Oncology 02/27/22 Food And Beverage Attendant Relationship Specialty Start Date End Date Donovan Hernandez [address] [place] [phone] PCP - General 01/12/18 Danny Sharma MD [address] [place] [address] Consulting Physician Gynecologic Oncology 02/01/22 Salome Sofia APRN - [facility] [address] [place] [address] Nurse Practitioner Certified Nurse Practitioner 02/20/22 Malinda Boone APRN - MEDICAL ASSISTANT SUPERVISOR [address] [place] [address] Nurse Practitioner Nurse Practitioner 02/20/22 Kaity Rodriguez, RN Nurse Navigator Gynecologic Oncology 02/27/22 Food And Beverage Attendant Relationship Specialty Start Date End Date Donovan Hernandez [address] [place] [phone] PCP - General 01/12/18 Danny Sharma MD [address] [place] [address] Consulting Physician Gynecologic Oncology 02/01/22 Salome Sofia APRN - MEDICAL ASSISTANT SUPERVISOR [address] [place] [address] Nurse Practitioner Certified Nurse Practitioner 02/20/22 Malinda Boone APRN - [facility] [address] [place] [address] Nurse Practitioner Nurse Practitioner 02/20/22 Kaity Rodriguez, RN Nurse Navigator Gynecologic Oncology 02/27/22 Food And Beverage Attendant Relationship Specialty Start Date End Date Donovan Hernandez [address] [facility] [address] [place] [address] PCP - General 01/12/18 Danny Sharma MD [address] [place] [address] Consulting Physician Gynecologic Oncology 02/01/22 Salome Sofia APRN - MEDICAL ASSISTANT SUPERVISOR [address] [place] [address] Nurse Practitioner Certified Nurse Practitioner 02/20/22 Malinda Boone APRN - CNP [address] [place] [address] Nurse Practitioner Nurse Practitioner 02/20/22 Kaity Rodriguez RN Nurse Navigator Gynecologic Oncology 02/27/22 Food And Beverage Attendant Relationship Specialty Start Date End Date Donovan Hernandez [address] [facility] [address] [place] [phone] PCP - General 01/12/18 Danny Sharma MD [address] [place] [address] Consulting Physician Gynecologic Oncology 02/01/22 Salome Sofia APRN - MEDICAL ASSISTANT SUPERVISOR [address] [place] [address] Nurse Practitioner Certified Nurse Practitioner 02/20/22 Malinda Boone APRN - MEDICAL ASSISTANT SUPERVISOR [address] [place] [address] Nurse Practitioner Nurse Practitioner 02/20/22 Kaity Rodriguez, RN Nurse Navigator Gynecologic Oncology 02/27/22 Food And Beverage Attendant Relationship Specialty Start Date End Date Donovan Hernandez [address] [facility] [address] [place] [address] PCP - General 01/12/18 Danny Sharma MD [address] [place] [address] Consulting Physician Gynecologic Oncology 02/01/22 Salome Sofia APRN - MEDICAL ASSISTANT SUPERVISOR [address] [place] [address] Nurse Practitioner Certified Nurse Practitioner 02/20/22 Malinda Boone APRN - MEDICAL ASSISTANT SUPERVISOR [address] [address] [place] [address] Nurse Practitioner Nurse Practitioner 02/20/22 Kaity Rodriguez, RN Nurse Navigator Gynecologic Oncology 02/27/22 Food And Beverage Attendant Relationship Specialty Start Date End Date Donovan Hernandez [address] [facility] [address] [place] [address] PCP - General 01/12/18 Danny Sharma MD [address] [place] [address] Consulting Physician Gynecologic Oncology 02/01/22 Salome Sofia APRN - MEDICAL ASSISTANT SUPERVISOR [address] [place] [address] Nurse Practitioner Certified Nurse Practitioner 02/20/22 Malinda Boone APRN - MEDICAL ASSISTANT SUPERVISOR [address] [place] [address] Nurse Practitioner Nurse Practitioner 02/20/22 Kaity Rodriguez, RN Nurse Navigator Gynecologic Oncology 02/27/22 Food And Beverage Attendant Relationship Specialty Start Date End Date Donovan Hernandez [address] [facility] [address] [place] [address] PCP - General 01/12/18 Danny Sharma MD [address] [place] [address] Consulting Physician Gynecologic Oncology 02/01/22 Salome Sofia APRN - CNP [address] [place] [address] Nurse Practitioner Certified Nurse Practitioner 02/20/22 Malinda Boone APRN - MEDICAL ASSISTANT SUPERVISOR [address] [place] [address] Nurse Practitioner Nurse Practitioner 02/20/22 Kaity Rodriguez, RN Nurse Navigator Gynecologic Oncology 02/27/22 Food And Beverage Attendant Relationship Specialty Start Date End Date Donovan Hernandez [address] [place] [phone] PCP - General 01/12/18 Danny Sharma MD [address] [place] [address] Consulting Physician Gynecologic Oncology 02/01/22 Salome Sofia, THERMAL INTELLIGENCE ANALYST - MEDICAL ASSISTANT SUPERVISOR [address] [place] [address] Nurse Practitioner Certified Nurse Practitioner 02/20/22 Malinda Boone, THERMAL INTELLIGENCE ANALYST - MEDICAL ASSISTANT SUPERVISOR [address] [place] [address] Nurse Practitioner Nurse Practitioner 02/20/22 Kaity Rodriguez, RN Nurse Navigator Gynecologic Oncology 02/27/22 Food And Beverage Attendant Relationship Specialty Start Date End Date Donovan Hernandez [address] [place] [phone] PCP - General 01/12/18 Danny Sharma MD [address] [place] [address] Consulting Physician Gynecologic Oncology 02/01/22 Salome Sofia, THERMAL INTELLIGENCE ANALYST - MEDICAL ASSISTANT SUPERVISOR [address] [place] [address] Nurse Practitioner Certified Nurse Practitioner 02/20/22 Malinda Boone APRN - CNP [address] [place] [address] Nurse Practitioner Nurse Practitioner 02/20/22 Kaity Rodriguez, RN Nurse Navigator Gynecologic Oncology 02/27/22 Food And Beverage Attendant Relationship Specialty Start Date End Date Donovan Hernandez [address] [place] [address] PCP - General 01/12/18 Danny Sharma MD [address] [place] [address] Consulting Physician Gynecologic Oncology 02/01/22 Salome Sofia APRN - CNP [address] [place] [address] Nurse Practitioner Certified Nurse Practitioner 02/20/22 Malinda Boone APRN - CNP [address] [place] [address] Nurse Practitioner Nurse Practitioner 02/20/22 Kaity Rodriguez, RN Nurse Navigator Gynecologic Oncology 02/27/22 Food And Beverage Attendant Relationship Specialty Start Date End Date Donovan Hernandez [address] [place] [address] PCP - General 01/12/18 Danny Sharma MD [address] [place] [address] Consulting Physician Gynecologic Oncology 02/01/22 Salome Sofia APRN - MEDICAL ASSISTANT SUPERVISOR [address] [place] [address] Nurse Practitioner Certified Nurse Practitioner 02/20/22 Malinda Boone APRN - MEDICAL ASSISTANT SUPERVISOR [address] [place] [address] Nurse Practitioner Nurse Practitioner 02/20/22 Kaity Rodriguez, RN Nurse Navigator Gynecologic Oncology 02/27/22 Food And Beverage Attendant Relationship Specialty Start Date End Date Donovan Hernandez [address] [place] [phone] PCP - General 01/12/18 Danny Sharma MD [address] [place] [address] Consulting Physician Gynecologic Oncology 02/01/22 Salome Sofia APRN - MEDICAL ASSISTANT SUPERVISOR [address] [place] [address] Nurse Practitioner Certified Nurse Practitioner 02/20/22 Malinda Boone APRN [facility] [address] [facility] [address] [place] [address] Nurse Practitioner Nurse Practitioner 02/20/22 Kaity Rodriguez, RN Nurse Navigator Gynecologic Oncology 02/27/22 Food And Beverage Attendant Relationship Specialty Start Date End Date Donovan Hernandez [address] [place] [phone] PCP - General 01/12/18 Danny Sharma MD [address] [place] [address] Consulting Physician Gynecologic Oncology 02/01/22 Salome Sofia APRN - MEDICAL ASSISTANT SUPERVISOR [address] [place] [address] Nurse Practitioner Certified Nurse Practitioner 02/20/22 Malinda Boone APRN - CNP [address] [place] [address] Nurse Practitioner Nurse Practitioner 02/20/22 Kaity Rodriguez, RN Nurse Navigator Gynecologic Oncology 02/27/22 Food And Beverage Attendant Relationship Specialty Start Date End Date Donovan Hernandez [address] [facility] [address] [place] [phone] PCP - General 01/12/18 Danny Sharma MD [address] [place] [address] Consulting Physician Gynecologic Oncology 02/01/22 Salome Sofia APRN - MEDICAL ASSISTANT SUPERVISOR [address] [place] [address] Nurse Practitioner Certified Nurse Practitioner 02/20/22 Malinda Boone APRN - MEDICAL ASSISTANT SUPERVISOR [address] [place] [address] Nurse Practitioner Nurse Practitioner 02/20/22 Kaity Rodriguez, RN Nurse Navigator Gynecologic Oncology 02/27/22 Food And Beverage Attendant Relationship Specialty Start Date End Date Donovan Hernandez [address] [facility] [address] [place] [phone] PCP - General 01/12/18 Danny Sharma MD [address] [place] [address] Consulting Physician Gynecologic Oncology 02/01/22 Salome Sofia APRN - MEDICAL ASSISTANT SUPERVISOR [address] [place] [address] Nurse Practitioner Certified Nurse Practitioner 02/20/22 Malinda Boone APRN - MEDICAL ASSISTANT SUPERVISOR [address] [place] [address] Nurse Practitioner Nurse Practitioner 02/20/22 Kaity Rodriguez, RN Nurse Navigator Gynecologic Oncology 02/27/22 Food And Beverage Attendant Relationship Specialty Start Date End Date Donovan Hernandez [address] [place] [phone] PCP - General 01/12/18 Danny Sharma MD [address] [place] [address] Consulting Physician Gynecologic Oncology 02/01/22 Salome Sofia APRN - MEDICAL ASSISTANT SUPERVISOR [address] [place] [address] Nurse Practitioner Certified Nurse Practitioner 02/20/22 Malinda Boone APRN - MEDICAL ASSISTANT SUPERVISOR [address] [place] [address] Nurse Practitioner Nurse Practitioner 02/20/22 Kaity Rodriguez, RN Nurse Navigator Gynecologic Oncology 02/27/22 Food And Beverage Attendant Relationship Specialty Start Date End Date Donovan Hernandez [address] [facility] [address] [place] [phone] PCP - General 01/12/18 Danny Sharma MD [address] [facility] [address] [place] [address] Consulting Physician Gynecologic Oncology 02/01/22 Salome Sofia THERMAL INTELLIGENCE ANALYST - MEDICAL ASSISTANT SUPERVISOR [address] [facility] [address] [place] [address] Nurse Practitioner Certified Nurse Practitioner 02/20/22 Malinda Boone THERMAL INTELLIGENCE ANALYST - MEDICAL ASSISTANT SUPERVISOR [address] [facility] [address] [place] [address] Nurse Practitioner Nurse Practitioner 02/20/22 Kaity Rodriguez, RN Nurse Navigator Gynecologic Oncology 02/27/22 Food And Beverage Attendant Relationship Specialty Start Date End Date Donovan Hernandez [address] [place] [phone] PCP - General 01/12/18 Danny Sharma MD [address] [facility] [place] [address] Consulting Physician Gynecologic Oncology 02/01/22 Salome Sofia THERMAL INTELLIGENCE ANALYST - MEDICAL ASSISTANT SUPERVISOR [address] [facility] [address] [place] [address] Nurse Practitioner Certified Nurse Practitioner 02/20/22 Malinda Boone THERMAL INTELLIGENCE ANALYST - MEDICAL ASSISTANT SUPERVISOR [address] [facility] [address] [place] [address] Nurse Practitioner Nurse Practitioner 02/20/22 Kaity Rodriguez, RN Nurse Navigator Gynecologic Oncology 02/27/22 Food And Beverage Attendant Relationship Specialty Start Date End Date Donovan Hernandez [address] [place] [phone] PCP - General 01/12/18 Danny Sharma MD [address] [facility] [place] [address] Consulting Physician Gynecologic Oncology 02/01/22 Salome Sofia THERMAL INTELLIGENCE ANALYST - MEDICAL ASSISTANT SUPERVISOR [address] [facility] [address] [place] [address] Nurse Practitioner Certified Nurse Practitioner 02/20/22 Malinda Boone THERMAL INTELLIGENCE ANALYST - MEDICAL ASSISTANT SUPERVISOR [address] [facility] [address] [place] [address] Nurse Practitioner Nurse Practitioner 02/20/22 Kaity Rodriguez, RN Nurse Navigator Gynecologic Oncology 02/27/22 Food And Beverage Attendant Relationship Specialty Start Date End Date Donovan Hernandez [address] [facility] [address] [place] [phone] PCP - General 01/12/18 Danny Sharma MD [address] [facility] [place] [address] Consulting Physician Gynecologic Oncology 02/01/22 Salome Sofia THERMAL INTELLIGENCE ANALYST - MEDICAL ASSISTANT SUPERVISOR [address] [facility] [address] [place] [address] Nurse Practitioner Certified Nurse Practitioner 02/20/22 Malinda Boone THERMAL INTELLIGENCE ANALYST - MEDICAL ASSISTANT SUPERVISOR [address] [facility] [address] [place] [address] Nurse Practitioner Nurse Practitioner 02/20/22 Kaity Rodriguez, RN Nurse Navigator Gynecologic Oncology 02/27/22 Food And Beverage Attendant Relationship Specialty Start Date End Date Donovan Hernandez [address] [facility] [place] [phone] PCP - General 01/12/18 Danny Sharma MD [address] [facility] [place] [address] Consulting Physician Gynecologic Oncology 02/01/22 Salome Sofia APRN - MEDICAL ASSISTANT SUPERVISOR [address] [facility] [address] [place] [address] Nurse Practitioner Certified Nurse Practitioner 02/20/22 Malinda Boone APRN - MEDICAL ASSISTANT SUPERVISOR [address] [facility] [address] [place] [address] Nurse Practitioner Nurse Practitioner 02/20/22 Kaity Rodriguez, RN Nurse Navigator Gynecologic Oncology 02/27/22 Food And Beverage Attendant Relationship Specialty Start Date End Date Donovan Hernandez [address] [place] [phone] PCP - General 01/12/18 Danny Sharma MD [address] [facility] [place] [address] Consulting Physician Gynecologic Oncology 02/01/22 Salome Sofia THERMAL INTELLIGENCE ANALYST - MEDICAL ASSISTANT SUPERVISOR [address] [facility] [address] [place] [address] Nurse Practitioner Certified Nurse Practitioner 02/20/22 Malinda Boone APRN - MEDICAL ASSISTANT SUPERVISOR [address] [facility] [address] [place] [address] Nurse Practitioner Nurse Practitioner 02/20/22 Kaity Rodriguez, RN Nurse Navigator Gynecologic Oncology 02/27/22 Food And Beverage Attendant Relationship Specialty Start Date End Date Donovan Hernandez [address] [place] [phone] PCP - General 01/12/18 Danny Sharma MD [address] [facility] [place] [address] Consulting Physician Gynecologic Oncology 02/01/22 Salome Sofia THERMAL INTELLIGENCE ANALYST - MEDICAL ASSISTANT SUPERVISOR [address] [facility] [address] [place] [address] Nurse Practitioner Certified Nurse Practitioner 02/20/22 Malinda Boone THERMAL INTELLIGENCE ANALYST - MEDICAL ASSISTANT SUPERVISOR [address] [facility] [address] [place] [address] Nurse Practitioner Nurse Practitioner 02/20/22 Kaity Rodriguez, RN Nurse Navigator Gynecologic Oncology 02/27/22 Food And Beverage Attendant Relationship Specialty Start Date End Date Donovan Henrandez [address] [facility] [address] [place] [phone] PCP - General 01/12/18 Danny Sharma MD [address] [facility] [place] [address] Consulting Physician Gynecologic Oncology 02/01/22 Salome Sofia APRN - MEDICAL ASSISTANT SUPERVISOR [address] [facility] [address] [place] [address] Nurse Practitioner Certified Nurse Practitioner 02/20/22 Malinda Boone APRN - MEDICAL ASSISTANT SUPERVISOR [address] [facility] [address] [place] [address] Nurse Practitioner Nurse Practitioner 02/20/22 Kaity Rodriguez, RN Nurse Navigator Gynecologic Oncology 02/27/22 Food And Beverage Attendant Relationship Specialty Start Date End Date Donovan Hernandez [address] [place] [phone] PCP - General 01/12/18 Danny Sharma MD [address] [facility] [place] [address] Consulting Physician Gynecologic Oncology 02/01/22 Salome Sofia APRN - MEDICAL ASSISTANT SUPERVISOR [address] [facility] [address] [place] [address] Nurse Practitioner Certified Nurse Practitioner 02/20/22 Malinda Boone THERMAL INTELLIGENCE ANALYST - MEDICAL ASSISTANT SUPERVISOR [address] [facility] [address] [place] [address] Nurse Practitioner Nurse Practitioner 02/20/22 Kaity Rodriguez, RN Nurse Navigator Gynecologic Oncology 02/27/22 Food And Beverage Attendant Relationship Specialty Start Date End Date Donovan Hernandez [address] [facility] [address] [place] [address] PCP - General 01/12/18 Danny Sharma MD [address] [facility] [place] [address] Consulting Physician Gynecologic Oncology 02/01/22 Salome Sofia APRN - MEDICAL ASSISTANT SUPERVISOR [address] [facility] [address] [place] [address] Nurse Practitioner Certified Nurse Practitioner 02/20/22 Malinda Boone APRN - MEDICAL ASSISTANT SUPERVISOR [address] [facility] [address] [place] [address] Nurse Practitioner Nurse Practitioner 02/20/22 Kaity Rodriguez, RN Nurse Navigator Gynecologic Oncology 02/27/22 Food And Beverage Attendant Relationship Specialty Start Date End Date Donovan Hernandez [address] [facility] [address] [place] [phone] PCP - General 01/12/18 Danny Sharma MD [address] [facility] [address] [place] [address] Consulting Physician Gynecologic Oncology 02/01/22 Salome Sofia THERMAL INTELLIGENCE ANALYST - MEDICAL ASSISTANT SUPERVISOR [address] [facility] [address] [place] [address] Nurse Practitioner Certified Nurse Practitioner 02/20/22 Malinda Boone APRN - MEDICAL ASSISTANT SUPERVISOR [address] [facility] [address] [place] [address] Nurse Practitioner Nurse Practitioner 02/20/22 Kaity Rodriguez, RN Nurse Navigator Gynecologic Oncology 02/27/22 Food And Beverage Attendant Relationship Specialty Start Date End Date Donovan Hernandez [address] [place] [address] PCP - General 01/12/18 Danny Sharma MD [address] [place] [address] Consulting Physician Gynecologic Oncology 02/01/22 Salome Sofia APRN - GUMARO [address] [place] [address] Nurse Practitioner Certified Nurse Practitioner 02/20/22 Malinda Boone APRN - MEDICAL ASSISTANT SUPERVISOR [address] [place] [address] Nurse Practitioner Nurse Practitioner 02/20/22 Kaity Rodriguez, RN Nurse Navigator Gynecologic Oncology 02/27/22 Food And Beverage Attendant Relationship Specialty Start Date End Date Donovan Hernandez [address] [facility] [address] [place] [address] PCP - General 01/12/18 Danny Sharma MD [address] [place] [address] Consulting Physician Gynecologic Oncology 02/01/22 Salome Sofia APRN - MEDICAL ASSISTANT SUPERVISOR [address] [place] [address] Nurse Practitioner Certified Nurse Practitioner 02/20/22 Malinda Boone APRN - CNP [address] [facility] [address] [place] [address] Nurse Practitioner Nurse Practitioner 02/20/22 Kaity Rodriguez, RN Nurse Navigator Gynecologic Oncology 02/27/22 Food And Beverage Attendant Relationship Specialty Start Date End Date Donovan Hernandez [address] [place] [phone] PCP - General 01/12/18 Danny Sharma MD [address] [place], [place] [address] Consulting Physician Gynecologic Oncology 02/01/22 Salome Sofia THERMAL INTELLIGENCE ANALYST - MEDICAL ASSISTANT SUPERVISOR [address] [place], [place] [address] Nurse Practitioner Certified Nurse Practitioner 02/20/22 Malinda Boone APRN - MEDICAL ASSISTANT SUPERVISOR [address] [facility] [address] [place], [place] [address] Nurse Practitioner Nurse Practitioner 02/20/22 Kaity Rodriguez, RN Nurse Navigator Gynecologic Oncology 02/27/22 Team Status: Active Member Role Status Dates Dr. Donovan Hernandez MD Primary Care Provider Acti ve Team Status: Inactive Member Role Status Dates Dr. Donovan Hernandez MD Primary Care Provider Acti ve Start: March 22, 2024 End: March 22, 2024 Dr. Praful Zambrano MD Attending Provider Active Start: March 22, 2024 End: March 22, 2024 Dr. Praful Zambrano MD Emergency Provider Active Start: March 22, 2024 End: March 22, 2024 Team Status: Inactive Member Role Status Dates Dr. Donovan Hernandez MD Primary Care Provider Acti ve Start: May 04, 2024 End: May 04, 2024 Dr. Cayetano Schwiger , DO Attending Provider Active Start: May 04, 2024 End: May 04, 2024 Dr. Cayetano Gregorio DO Emergency Provider Active Start: May 04, 2024 End: May 04, 2024 Team Status: Inactive Member Role Status Dates Dr. Donovan Hernandez MD Primary Care Provider Acti ve Start: July 18, 2024 End: July 18, 2024 Dr. Chuy Kinney DO Emergency Provider Active Start : July 18, 2024 End: July 18, 2024 Team Status: Inactive Member Role Status Dates Dr. Donovan Hernandez MD Primary Care Provider Acti ve Start: July 18, 2024 End: July 18, 2024 Dr. Chuy Kinney DO Attending Provider Active Start : July 18, 2024 End: July 18, 2024 Dr. Chuy Kinney DO Emergency Provider Active Start : July 18, 2024 End: July 18, 2024 Team Status: Inactive Member Role Status Dates Dr. Donovan Hernandez MD Primary Care Provider Acti ve Start: August 05, 2024 End: August 05, 2024 Dr. Donovan Hernandez MD Attending Provider Active Start: August 05, 2024 End: August 05, 2024 Dr. Donovan Hernandez MD Referring Provider Active Start: August 05, 2024 End: August 05, 2024 Team Status: Inactive Member Role Status Dates Dr. Donovan Hernandez MD Primary Care Provider Acti ve Start: August 19, 2024 End: August 19, 2024 Dr. Donovan Hernandez MD Attending Provider Active Start: August 19, 2024 End: August 19, 2024 Dr. Donovan Hernandez MD Referring Provider Active Start: August 19, 2024 End: August 19, 2024 Team Status: Inactive Member Role Status Dates Dr. Donovan Hernandez MD Primary Care Provider Acti ve Start: September 01, 2024 End: September 01, 2024 Dr. Donovan Hernandez MD Attending Provider Active Start: September 01, 2024 End: September 01, 2024 Dr. Donovan Hernandez MD Referring Provider Active Start: September 01, 2024 End: September 01, 2024 Goals (unrecognized section and content) Goals may be documented in a n alternate sectionGoals may be documented in an alternate sectionGoals may be documented in an alternate sectionGoals may be documented in an alternate sectionGoals may be documented in an alternate sectionGoals may be documented in an alternate sectionGoals may be documented in an alternate sectionGoals may be documented in an alternate sectionGoals may be documented in an alternate sectionGoals may be documented in an alternate sectionGoals may be documented in an alternate sectionGoals may be documented in an alternate section FOR RECORDS PERTAINING TO PATIENTS WHO ARE OR HAVE BEEN ENROLLED IN A CHEMICAL DEPENDENCY/SUBSTANCEABUSE PROGRAM, SOME INFORMATION MAY BE OMITTED. This clinical summary was aggregated from multiple sources. Caution should be exercised in using it in the provision of clinical care. This summary normalizes information from multiple sources, and as a consequence, information in this document may materially change the coding, format and clinical context of patient data. In addition, data may be omitted in some cases. CLINICAL DECISIONS SHOULD BE BASED ON THE PRIMARY CLINICAL RECORDS. [facility] [facility]. provides no warranty or guarantee of the accuracy or completeness of information in this document.
[2024-10-17] MEDS: 0.9% Normal Saline (1000mL) 1,000 ML 999 ML IV (12:54)
[2024-10-17] MEDS: Ondansetron 4 MG/2 ML Vial IV ×2 (12:54→14:09)
[2024-10-17 12:57] LABS: Bedside Glucose 212 mg/dL (74-106)
[2024-10-17 13:13] LABS: Absolute Lymphocyte Count 0.65 X10^3/uL (0.83-4.51); Absolute Neutrophil Count 10.2 X10^3/uL (2.0-7.7); Basophil# 0.06 X10^3/uL; Basophil% 0.5 % (0-1); Eosinophil# 0.01 X10^3/uL; Eosinophils% 0.1 % (0-5); Hematocrit 38.5 % (37-47); Hemoglobin 13.2 g/dL (12.0-15.0); Lymphocyte # 0.65 X10^3/ul (0.83-4.51); Lymphocyte % 5.3 % (19-41); Mean Corp Hgb Conc 34.3 g/dL (32-36); Mean Corpuscular Hgb 31.3 pg (27.0-32.0); Mean Corpuscular Volume 91.2 fL (81-99); Mean Platelet Vol. 8.7 fl (6.2-12.0); Monocyte# 1.16 X10^3/uL; Monocyte% 9.5 % (0-10); NRBC Flagged by Analyzer 0 % (0-5); Neutrophil # 10.21 X10^3/uL (2.7-7.7); Neutrophil % 83.8 % (47-70); Platelet Count 315 K/mm3 (150-450); RBC Distribution Width CV 13.5 % (11.6-14.6); RBC Distribution Width SD 44.7 fl (35.1-43.9); Red Blood Count 4.22 M/mm3 (4.2-5.4); White Blood Count 12.2 K/mm3 (4.4-11.0)
[2024-10-17 13:34] LABS: ALB/GLOB Ratio 1.3 RATIO (0.9-2.4); AST(SGOT) 15 U/L (<=31); Alanine Aminotransfer ALT/SGPT 8 U/L (<=34); Albumin, Serum 4.1 g/dL (3.4-4.8); Alkaline Phosphatase 98 U/L (35-104); Anion Gap 19 (5-15); BUN 14 mg/dL (4-19); BUN/Creat Ratio 13.7 RATIO (10-20); Calcium,Total 9.7 mg/dL (7.6-11.0); Carbon Dioxide 16.2 mmol/L (21.0-32.0); Chloride 98 mmol/L (98-108); Creatinine, Serum 1.02 mg/dL (0.70-1.20); EST Glomerular Filtration Rate 60 (>60); Estimated Creatinine Clearance 71.41 ml/min (50-250); Globulin 3.2 g/dL (2.2-4.2); Glucose 193 mg/dL (70-99); Lipase 19 U/L (13-75); Potassium 3.7 mmol/L (3.3-5.1); Protein, Total 7.3 g/dL (5.9-8.4); Sodium Level 133 mmol/L (133-145); Total Bilirubin 0.46 mg/dL (0.00-1.30)
[2024-10-17 13:35] LABS: Bacteria 0 SEEN /hpf (None Seen); Mucous, Urine 0 SEEN /hpf (<or=2+); Red Blood Cells-Urine 0 SEEN /hpf (0-5)
[2024-10-17 13:41] LABS: Color, Urine Yellow (Yellow); Glucose, Dipstick Normal (Normal); Ketone-Dipstick 5 mg/dl (Negative); Leukocyte Esterase-Dipstick 500 /ul (Negative); Nitrite-Dipstick Negative (Negative); Occult Blood-Urine Negative /ul (Negative); Protein-Dipstick 30 mg/dl (Negative); Urine Bilirubin Dipstick Negative (Negative); Urine Clarity Clear (Clear); Urine Urobilinogen Normal (Normal)
[2024-10-17 13:53] LABS: Squamous Epithelial Cells - UA 0-5 SEEN /hpf (5-10); White Blood Cells 5-10 SEEN /hpf (0-5)
[2024-10-17 14:11] VITALS: BP 181/97; PULSE 84; RESP 16; O2SAT 97
[2024-10-17 14:51] VITALS: BP 213/98; PULSE 98; RESP 16; O2SAT 99
[2024-10-17 15:11] VITALS: BP 211/97
[2024-10-17 15:17] VITALS: BP 187/81; PULSE 98; RESP 16; TEMP 36.6; O2SAT 99
== END 2024-10-17 15:30 | disposition home or self-care (01) ==
PROVIDERS: Emergency Provider Emergency Medicine; PCP Family Medicine; Referring Provider Emergency Medicine; Visit Provider Emergency Medicine
DX: A08.4 Viral intestinal infection, unspecified (principal); E11.9 Type 2 diabetes mellitus without complications; I10 Essential (primary) hypertension; J45.909 Unspecified asthma, uncomplicated; Z86.73 Personal history of transient ischemic attack (TIA), and cerebral infarction without residual deficits; Z79.84 Long term (current) use of oral hypoglycemic drugs; Z79.82 Long term (current) use of aspirin; Z79.51 Long term (current) use of inhaled steroids; Z85.42 Personal history of malignant neoplasm of other parts of uterus; Z92.21 Personal history of antineoplastic chemotherapy; Z90.710 Acquired absence of both cervix and uterus; Z79.899 Other long term (current) drug therapy; Z87.891 Personal history of nicotine dependence
CPT/HCPCS: 80053; 81001; 82962; 83690; 85025; 96361; 96374; 96376; 99284; A4216; J2405

== ENCOUNTER → 2024-10-29 | Outpatient (CLI) | payer MEDICARE, SELFPAY ==
--- NOTE | 2024-10-29 13:03 | MRI_ITS ---
PROCEDURE: BRAIN WITHOUT CONTRAST 10/29/2024 REASON FOR EXAM: GAIT INSTABILITY TECHNIQUE: BRAIN WITHOUT CONTRAST Multiplanar and multisequence images were obtained. COMPARISON: 03/22/2024. FINDINGS: Mild global parenchymal atrophy. The paranasal sinuses and mastoid air cells are clear. No evidence of acute hemorrhage or infarction. No extra-axial blood or fluid collections. MRI/Brain without Contrast IMPRESSION: No acute intracranial abnormality. Reading Location: [place] [address]
== END | disposition home or self-care (01) ==
PROVIDERS: PCP Family Medicine; Referring Provider Family Medicine; Visit Provider Family Medicine
DX: R26.81 Unsteadiness on feet (principal)
CPT/HCPCS: 70551

== ENCOUNTER 2024-11-10 10:38 | Emergency (ER) | payer MEDICARE, SELFPAY ==
[2024-11-10] VITALS (12 sets, daily range): BP systolic 126–173; BP diastolic 91–112; PULSE 78–122; RESP 16–24; TEMP 36.3–37.1; O2SAT 95–100; BMI 33.0
--- NOTE | 2024-11-10 10:46 | EKG12_ITS ---
Test Reason : SOB Blood Pressure : */* mmHG Vent. Rate : 120 BPM Atrial Rate : 120 BPM P-R Int : 154 ms QRS Dur : 90 ms QT Int : 334 ms P-R-T Axes : 80 61 41 degrees QTcB Int : 472 [address] abnormality Abnormal ECG Confirmed by TONY ALBRIGHT, PATRICIA ([id number]), film and video editor FAN WILSON ([id number]) on 11/12/2024 1:14:15 PM Referred By: JAMIE Confirmed By: PATRICIA JIMENEZ MD
[2024-11-10] MEDS: 0.9% Normal Saline (1000mL) 1,000 ML 999 ML IV (10:56)
[2024-11-10 10:57] LABS: FI02 2.0; SITE Not entered; VBG BASE EXCESS -2 mmol/L (-1.0-3.5); VBG PO2 30 mmHg (25-40); VBG SO2 62 % (50-70); VBG TCO2 23 mmol/L (23-33)
[2024-11-10] MEDS: Albuterol 2.5 MG/3 ML VIAL.NEB. INHALATION (11:00)
[2024-11-10 11:03] LABS: Hematocrit 38.7 % (37-47); Hemoglobin 12.9 g/dL (12.0-15.0); Immature Granulocytes Count 0.140 X10^3/uL (0.0-0.0); Mean Corp Hgb Conc 33.3 g/dL (32-36); Mean Corpuscular Volume 91.5 fL (81-99); Mean Platelet Vol. 9.1 fl (6.2-12.0); NRBC Flagged by Analyzer 0 % (0-5); POSITIVE DIFFERENTIAL YES; Platelet Count 335 K/mm3 (150-450); RBC Distribution Width CV 13.4 % (11.6-14.6); RBC Distribution Width SD 44.7 fl (35.1-43.9); Red Blood Count 4.23 M/mm3 (4.2-5.4); White Blood Count 13.4 K/mm3 (4.4-11.0)
[2024-11-10 11:06] LABS: Differential Indicated SCAN CRITERIA MET
--- NOTE | 2024-11-10 11:21 | ED.VIS.DYS ---
HPI History of Present Illness Chief Complaint: Shortness of Breath Informant: patient Narrative Narrative: Patient 69-year-old female with history of stroke, endometrial cancer (with recurrence of metastasis to the lungs) as well as asthma presenting with worsening shortness of breath and near syncope. Patient's states that her breathing has not felt good for the past 2 days. She denies any chest pain but does report some tightness in her chest. She has had a cough that is been productive of phlegm for the past 2 days. This morning she felt she was going to pass out every time she tried to stand up or walk around was what prompted her to come to the emergency room. She denies swelling of her leg. Denies a history of DVT or PE. Is not on any blood thinners. Denies any fever or chills. Does not wear home O2. PFSH PFS Medical History Asthma HTN (hypertension), benign Diabetes s/p radiation Endometrial cancer Postmenopausal bleeding CVA (cerebral vascular accident) Mini stroke Glaucoma Home Medications Medication Instructions Recorded Last Taken Type oxycodone 10 mg tablet 5 mg PO Q4H PRN Pain 04/29/23 11/10/24 History albuterol sulfate 90 mcg/actuation 2 puff inhalation Q6H 07/18/24 Unknown History aerosol inhaler prochlorperazine maleate 10 mg 10 mg PO Q8H PRN PRN 11/10/24 Unknown History tablet nausea/vomiting Allergy/AdvReac Type Severity Reaction Status Date / Time morphine Allergy Anaphylaxis Verified 11/10/24 10:45 codeine AdvReac Upset Verified 11/10/24 10:45 Stomach Family History Father Colon cancer Heart disease Hypertension CVA (cerebral vascular accident) Mother Heart disease Hypertension Surgical History Hx of tonsillectomy Hx of hysterectomy delivery delivered Social History adopted: No household members: none number of children: 4 current occupational status: unemployed pets and animals: Yes Smoking Status: Former smoker Tobacco: How many years used: 20 alcohol intake: current alcohol intake frequency: holidays/special occasions only substance use type: does not use what type of physical activity do you participate in: walking seatbelt use: always do you feel safe at home: Yes ROS ROS ED Constitutional Constitutional ED: Denies chills or fever(s) Eyes Eyes: Denies change in vision ENT ENT ED: Reports other Details: Facial swelling Cardiovascular Cardiovascular: Denies chest pain Respiratory/Chest Respiratory/Chest: Reports cough, dyspnea and sputum Gastrointestinal Gastrointestinal: Denies abdominal pain, nausea or vomiting Musculoskeletal Musculoskeletal: Denies arthralgias or myalgias Integumentary Denies rash Neurologic Neurologic: Reports weakness; Denies paresthesias Hematologic/Lymphatic Hematologic/Lymphatic: Denies easy bleeding or easy bruising EXAM Physical Exam Const Vital Signs: 11/10/24 10:38 11/10/24 10:43 11/10/24 10:45 Temperature 97.3 F L Temperature Source Temporal Pulse Rate 118 H 119 H Respiratory Rate 24 H 22 H Respiratory Effort Short of Breath Labored Respiratory Depth Deep Respiratory Pattern Irregular Blood Pressure 126/94 H 132/93 H Blood Pressure Mean 104 106 Pulse Ox 96 98 Oxygen Delivery Method Room Air Room Air Nasal Cannula Oxygen Flow Rate (L/min) 2 11/10/24 10:46 11/10/24 10:48 11/10/24 11:00 Temperature 98.5 F Temperature Source Oral Pulse Rate 113 H Respiratory Rate 20 H Respiratory Effort Respiratory Depth Respiratory Pattern Blood Pressure Blood Pressure Mean Pulse Ox 98 Oxygen Delivery Method Nasal Cannula Oxygen Flow Rate (L/min) 2 11/10/24 11:42 11/10/24 12:00 11/10/24 13:00 Temperature 97.4 F L 97.3 F L 98 F Temperature Source Oral Temporal Oral Pulse Rate 122 H 114 H 78 Respiratory Rate 18 16 18 Respiratory Effort Respiratory Depth Respiratory Pattern Blood Pressure 136/91 H 138/112 H 138/100 H Blood Pressure Mean 106 120 112 Pulse Ox 100 96 98 Oxygen Delivery Method Nasal Cannula Nasal Cannula Room Air Oxygen Flow Rate (L/min) 2 2 11/10/24 14:00 11/10/24 15:00 11/10/24 15:24 Temperature 98.7 F 98.6 F Temperature Source Temporal Pulse Rate 78 88 88 Respiratory Rate 18 18 Respiratory Effort Respiratory Depth Respiratory Pattern Blood Pressure 166/98 H 173/107 H 173/107 H Blood Pressure Mean 120 129 129 Pulse Ox 98 96 96 Oxygen Delivery Method Room Air Oxygen Flow Rate (L/min) Positive well nourished and well developed Constitutional Narrative: Plethora of the face present General Appearance ED: well developed HEENT Reports moist mucous membranes atraumatic Eyes PERRL and EOMs intact bilaterally Neck supple Resp Resp Narrative: Tachypneic. Coarse breath sounds with scattered rhonchi and wheezing present Cardio regular rhythm Rate: tachycardic GI non-tender and non-distended Extremity normal to inspection General Extremety ED: Negative for edema General Extremity: Negative for edema Neuro oriented x3 Neuro Narrative: Answering questions appropriate. Sensorium / Orientation: alert Motor Exam: general weakness Psych mental status grossly normal Skin Lesions: no lesions Rashes: No no rashes MDM MDM MDM Narrative Medical decision making narrative: Patient evaluated for worsening shortness of breath and near syncope every time she tried to stand up. Upon arrival patient has significant plethora and almost purple discoloration of her face, is tachycardic and tachypneic. She is placed on supplemental oxygen however she has not been hypoxic. Differential includes arrhythmia, pulmonary emboli, symptomatic anemia, carbon monoxide poisoning, ACS, PAT, superior vena cava syndrome and pneumonia. Patient remains hemodynamically stable in the emergency room. Is given breathing treatments with some improvement of her breath sounds however they are still coarse. Is given Solu-Medrol suspect there is a component of COPD/reactive airway with her presentation. She has a mild leukocytosis of 13.4 on her CBC. She does have a left shift with 1% immature granulocytes. BMP shows elevated anion gap of 21 and a bicarb of 17.6. Creatinine is mildly elevated 1.21–I suspect this is associated with dehydration. Her lactate is also elevated at 4.4. BNP normal. TSH normal. High-sensitivity troponin x 2 normal. EKG does not show acute ischemia. CTA of the chest does not show any PE but does show a large invasive right upper mediastinal/perihilar mass with moderate invasion of the lower central trachea and bronchi with arterial compression, compatible with pulmonary neoplasm such as small cell carcinoma or metastatic disease. There is also additional left upper lobe pulmonary nodules likely also neoplasm. She has a left subaortic soft tissue lesion and sclerotic thoracic vertebral lesions which are likely altaf and osseous metastatic disease. There is nonvisualization of the superior vena cava lumen with prominent collateral vessels and reflux contrast which is most compatible with SVC obstruction. Patient follows with Dr. Antonio Brooks at [facility] for gynecology. Do think she would also benefit from evaluation with thoracic surgery given concern for acute superior vena cava syndrome. Will reach out to [facility]'s transfer line. Patient informed of findings and concern for recurrent neoplastic disease of her lungs and spine. Patient does have some mild hemoptysis while in the emergency room. Will continue to monitor. Case discussed with Dr. Flores, thoracic surgery at [facility]. She is accepted to the ICU. Lab Data Attestation: I reviewed the patient's lab results. Labs: Laboratory Results - last 24 hr 11/10/24 11/10/24 10:48 12:48 WBC 13.4 H RBC 4.23 Hgb 12.9 Hct 38.7 MCV 91.5 MCH 30.5 MCHC 33.3 RDW Std Deviation 44.7 H RDW Coeff of Kav[place] 13.4 Plt Count 335 MPV 9.1 Immature Gran % (Auto) 1.000 H Neut % (Auto) 77.1 H Lymph % (Auto) 8.9 L [place] % (Auto) 12.1 H Eos % (Auto) 0.4 Baso % (Auto) 0.5 Absolute Neuts (auto) 10.4 H Absolute Lymphs (auto) 1.19 Nucleated RBC % 0 Sodium 135 Potassium 3.7 Chloride 97 L Carbon Dioxide 17.6 L Anion Gap 21 H BUN 10 Creatinine 1.21 H Estim Creat Clear Calc 52.12 Est GFR (MDRD) Non-Af 49 L BUN/Creatinine Ratio 7.9 L Glucose 237 H Lactic Acid 4.4 H* Calcium 9.8 Troponin T High Sens 11 Troponin T Hi Sens 2 Hr 11 NT pro BNP II 100 TSH 2.030 ABG Data ABG results: ABG 11/10/24 11/10/24 11/10/24 10:53 12:48 12:48 Specimen Type BRODIE Sample Site Not entered O2 % 2.0 VBG pH 7.47 H VBG pO2 30 VBG HCO3 22 VBG Total CO2 23 VBG O2 Sat (Calc) 62 VBG Base Excess -2 L POC Mix VBG pCO2 Pt Tmp 29.9 L Carboxyhemoglobin 2.1 Cancelled O2 Delivery Device Not entered Radiography Diagnostic Testing: Clinical Impression(s) from Imaging Studies Chest CTA 11/10/24 12:01 IMPRESSION: 1. No segmental pulmonary embolism. 2. Large, invasive right upper mediastinal/perihilar mass, with moderate invasion into the lower central trachea and bronchi and arterial compression, compatible with pulmonary neoplasm such as small-cell carcinoma or metastatic disease from reported endometrial cancer. Additional left upper lobe pulmonary nodules likely sites of additional neoplasm. 3. Left subaortic soft tissue lesion and sclerotic thoracic vertebral lesions, likely site of altaf and osseous metastatic disease. 4. Nonvisualization of the SVC lumen with prominent collateral vessels and reflux contrast, most compatible with SVC obstruction (especially given patient's reported history of facial swelling and wheezing). Pulmonary consultation recommended. Reading Location: [facility] Rhythm Strip Rhythm Strip: Sinus Tach Rate: 120 Ectopy: None EKG Initial EKG: Attestation: I personally reviewed and interpreted this EKG as follows: Interpretation: Sinus Tachycardia Comments: Sinus tachycardia at a rate of 120 bpm Normal axis Normal intervals Normal ST segments Compared to prior EKG on 07/18/2024 patient is now tachycardic Prior EKG tracings: available for review Management Discussion w/another healthcare provider: [employer] Critical Care Time Critical Care Time: Yes Critical care time (excluding procedures): 30-74 minutes (35), Discussing w/Patient &/or Family/Manager Medicare, Discussing w/Consultants and Arranging Admission or Transfer Discharge Plan Triage Chief Complaint: Shortness of Breath ED Provider: Jena Li Dx/Rx/DC Orders Clinical Impression: Superior vena cava syndrome, Endometrial cancer, Near syncope, Acute dyspnea, Lung mass, Hemoptysis Prescriptions: No Action oxycodone 10 mg tablet 5 mg PO Q4H PRN (Reason: Pain) prochlorperazine maleate 10 mg tablet 10 mg PO Q8H PRN PRN (Reason: nausea/vomiting) albuterol sulfate 90 mcg/actuation HFA aerosol inhaler 2 puff inhalation Q6H Primary Care Provider: Donovan Hernandez Referrals: Donovan Hernandez MD [Primary Care Provider] - Print Language: Mongolian Disposition Disposition: Acute Care Hospital Discharge Location: [facility]
[2024-11-10 11:48] LABS: Pro- Brain NATRIURETIC PEPTIDE 100 pg/mL (<=900); Troponin T High Sensitivity 11 ng/L (<=14)
[2024-11-10 11:49] LABS: Anion Gap 21 (5-15); BUN 10 mg/dL (4-19); BUN/Creat Ratio 7.9 RATIO (10-20); Calcium,Total 9.8 mg/dL (7.6-11.0); Carbon Dioxide 17.6 mmol/L (21.0-32.0); Chloride 97 mmol/L (98-108); Estimated Creatinine Clearance 52.12 ml/min (50-250); Glucose 237 mg/dL (70-99); Potassium 3.7 mmol/L (3.3-5.1)
--- NOTE | 2024-11-10 12:01 | CT_ITS ---
PROCEDURE: CTA CHEST W/WO CONTRAST 11/10/2024 REASON FOR EXAM: SOB, NEAR SYNCOPE, HIGH RISK PE TECHNIQUE: CTA axial imaging of the chest with intravenous contrast. Coronal and Sagittal reconstruction series were provided. 3D, 3D post processing, 3D reconstructions, Maximum intensity projection (MIPs) Volume rendering and Shaded surface rendering was provided. PATIENT PREPARATION: Per protocol CONTRAST: Isovue 370 VOLUME: 100mL One or more dose reduction techniques were used (e.g., Automated exposure control, adjustment of the mA and/or kV according to patient size, use of iterative reconstruction technique). RADIATION DOSE SUMMARY: DLP: 500 mGycm COMPARISON: Chest radiograph 07/18/2024, PET-CT 08/26/2023, CTA chest 10/13/2020. FINDINGS: Hardware: Stable right IJ chest port with tip terminating in the SVC. Lymph nodes: Ill-defined soft tissue thickening and edema within the bilateral axilla. Heart: The heart is normal in size without pericardial effusion. The great vessels are normal in caliber. No significant coronary artery or thoracic aortic calcifications. Pulmonary Vessels: No central filling defect within the segmental pulmonary arteries. Lungs and Airways: Centered within the right upper mediastinum/perihilar region, there is a multi-lobular pulmonary mass, which is difficult to accurately measure, however the mass measures at least 7.8 x 5.3 cm (coronal image 162). There is moderate invasion into the lower central trachea, right main, right upper lobe and intermediate bronchi. Additionally, there is moderate extrinsic compression of the right upper lobe segmental pulmonary artery (coronal image 152) secondary to the large mass. The SVC lumen is poorly visualized (likely at least in part due to arterial phase imaging), with associated prominent collateral vessels and refluxed contrast. Additional small left upper lobe pulmonary nodules (series 2, image 223). Ill- defined soft tissue density within the left subaortic region, measuring approximately 2.6 x 1.9 cm (series 2, image 165). No pleural effusion or pneumothorax. Upper Abdomen: Visualized portions of the upper abdominal viscera are unremarkable. Bones: Sclerotic lesions within the T4 and T6 vertebral bodies. CT/CTA Chest W/WO Contrast IMPRESSION: 1. No segmental pulmonary embolism. 2. Large, invasive right upper mediastinal/perihilar mass, with moderate invasi on into the lower central trachea and bronchi and arterial compression, compatible with pulmonary neoplasm such as small-cell car cinoma or metastatic disease from reported endometrial cancer. Additional left upper lobe pulmonary nodules likely sites of additional neoplasm. 3. Left subaortic soft tissue lesion and sclerotic thoracic vertebral lesions, likely site of altaf and osseous metastatic disease. 4. Nonvisualization of the SVC lumen with prominent collateral vessels and refl ux contrast, most compatible with SVC obstruction (especially given patient's reported history of facial swelling and wheezing). Pulmonary consultation recommended. Reading Location: [id number]
[2024-11-10 13:09] LABS: Carboxyhemoglobin Order 2.1
[2024-11-10 14:01] LABS: Troponin T High Sens 2 HR 11 ng/L (<=14)
--- NOTE | 2024-11-10 14:12 | PCA ---
CALLED WILLIE @ [id number] AND TALKED TOO RADHIKA [facility]. GAVE PAT. INFO AND FAXED OVER FACE SHEET. PUSHED UP IMAGES.
--- NOTE | 2024-11-10 14:44 | PCA ---
ACCEPTED AT 1430 WAITING FOR A BED ASSIGNEMNT
[2024-11-10 14:57] LABS: Reflex Lactate? Y
--- NOTE | 2024-11-10 16:03 | ED.RN ---
ATTEMPTED TO CALL REPORT AT 1600
== END 2024-11-10 16:20 | disposition short-term general hospital (02) ==
PROVIDERS: Emergency Provider Emergency Medicine; PCP Family Medicine; Visit Provider Emergency Medicine
DX: I87.1 Compression of vein (principal); C54.1 Malignant neoplasm of endometrium; E11.9 Type 2 diabetes mellitus without complications; R55 Syncope and collapse; R91.8 Other nonspecific abnormal finding of lung field; R06.02 Shortness of breath; R04.2 Hemoptysis; J45.909 Unspecified asthma, uncomplicated; Z86.73 Personal history of transient ischemic attack (TIA), and cerebral infarction without residual deficits; Z87.891 Personal history of nicotine dependence
CPT/HCPCS: 71275; 80048; 82803; 83605; 83880; 84443; 84484; 85025; 87631; 93005; 94640; 96361; 96374; 99285; Q9967; A4216